=== PATIENT | female | born 1945 | race Caucasian/White ===

== ENCOUNTER 2018-01-20 06:13 | Inpatient (IN) | payer OTHER, MEDICARE ==
[2018-01-20 07:05] LABS: Protime INR 1.07
[2018-01-20 07:06] LABS: Absolute Lymphocytes (CBC) 0.9 K/uL (0.7-4.9); Absolute Monocytes 0.7 K/uL (0.1-1.3); Absolute Neutrophil 8.9 K/uL (1.8-8.0); Basophils % 0.8 % (0-1.3); Eosinophils % 2.1 % (0-4.4); Hematocrit 36.5 % (36.0-45.0); Lymphocytes % 8.3 % (15.3-44.8); MCV 78.6 fL (80-100); MPV 8.3 fL (7.6-11.3); Monocytes % 6.7 % (3.3-12.3); RBC Red Blood Cell Count 4.64 M/uL (3.86-4.86)
[2018-01-20 07:49] LABS: Bicarbonate 27 mEq/L (21-31); Glucose Level 189 mg/dL (65-120); Potassium 3.9 mEq/L (3.6-5.0); Sodium Level 139 mEq/L (135-145)
[2018-01-20 07:55] LABS: ALT/SGPT 19 IU/L (10-60); AST/SGOT 26 IU/L (10-42); Albumin 3.4 g/dL (3.2-5.5); Alkaline Phosphatase 76 IU/L (42-121); BUN Blood Urea Nitrogen 15 mg/dL (6-20); Bilirubin Direct < 0.1 mg/dL (0-0.2); Bilirubin Total 0.7 mg/dL (0.3-1.2); Magnesium 1.6 mg/dL (1.8-2.5); Protein, Total 6.2 g/dL (6.0-8.3)
--- NOTE | 2018-01-20 08:09 | EDPHYS ---
Physician Documentation [facility] Name: Jelly Garcia Age: 72 yrs Sex: Female : 1945 Arrival Date: 01/20/2018 Time: 06:20 Bed 15 Private MD: ED Physician Alexandr Bhandari HPI: 01/20 07:51 This 72 yrs old Female presents to ER via EMS with complaints of Breathing jr8 Difficulty, Chest Pain. 07:51 The patient has shortness of breath at rest. Onset: The symptoms/episode began/occurred jr8 gradually, 3 week(s) ago, and became worse and became persistent. Duration: The symptoms are continuous. The patient's shortness of breath is aggravated by exertion, walking. Associated signs and symptoms: Pertinent positives: chest pain, palpitations. Severity of symptoms: At their worst the symptoms were moderate in the emergency department the symptoms are unchanged. The patient has not experienced similar symptoms in the past. The patient has not recently seen a physician. Patient stated that she has noticed increase in fatigue and shortness of breath with exertion over the past few weeks. Stated that this morning felt a lot worse. Had palpitation with near syncope like feeling . Historical: - Allergies: 06:29 No Known Allergies; lp1 - Home Meds: 06:29 duloxetine 60 mg oral cpDR twice a day [Active]; omeprazole 20 mg Oral cpDR 1 cap once lp1 daily [Active]; losartan-hydrochlorothiazide 50-12.5 mg oral tab 1 tab once daily [Active]; furosemide 40 mg Oral tab 1 tab once daily [Active]; - PMHx: 06:29 Hypertension; lp1 - PSHx: 06:29 Cholecystectomy; Hernia repair; Knee surgery; lp1 - Immunization history:: Adult Immunizations up to date, Adult Immunizations up to date. - Social history:: Smoking status: Patient/guardian denies using tobacco, never smoked. ROS: 07:51 Eyes: Negative for injury, pain, redness, and discharge, ENT: Negative for injury, jr8 pain, and discharge, Neck: Negative for injury, pain, and swelling, Abdomen/GI: Negative for abdominal pain, nausea, vomiting, diarrhea, and constipation, Back: Negative for injury and pain, MS/Extremity: Negative for injury and deformity, Skin: Negative for injury, rash, and discoloration, Neuro: Negative for headache, weakness, numbness, tingling, and seizure. 07:51 Constitutional: Positive for fatigue. 07:51 Cardiovascular: Positive for chest pain, palpitations, Negative for edema, orthopnea, paroxysmal nocturnal dyspnea. 07:51 Respiratory: Positive for dyspnea on exertion, Negative for cough, hemoptysis, orthopnea, pleurisy, sputum production. Exam: 07:51 Eyes: Pupils equal round and reactive to light, extra-ocular motions intact. Lids and jr8 lashes normal. Conjunctiva and sclera are non-icteric and not injected. Cornea within normal limits. Periorbital areas with no swelling, redness, or edema. ENT: Nares patent. No nasal discharge, no septal abnormalities noted. Tympanic membranes are normal and external auditory canals are clear. Oropharynx with no redness, swelling, or masses, exudates, or evidence of obstruction, uvula midline. Mucous membranes moist. Neck: Trachea midline, no thyromegaly or masses palpated, and no cervical lymphadenopathy. Supple, full range of motion without nuchal rigidity, or vertebral point tenderness. No Meningismus. Respiratory: Lungs have equal breath sounds bilaterally, clear to auscultation and percussion. No rales, rhonchi or wheezes noted. No increased work of breathing, no retractions or nasal flaring. Abdomen/GI: Soft, non-tender, with normal bowel sounds. No distension or tympany. No guarding or rebound. No evidence of tenderness throughout. Back: No spinal tenderness. No costovertebral tenderness. Full range of motion. Skin: Warm, dry with normal turgor. Normal color with no rashes, no lesions, and no evidence of cellulitis. MS/ Extremity: Pulses equal, no cyanosis. Neurovascular intact. Full, normal range of motion. Neuro: Awake and alert, GCS 15, oriented to person, place, time, and situation. Cranial nerves II-XII grossly intact. Motor strength 5/5 in all extremities. Sensory grossly intact. Cerebellar exam normal. Normal gait. 07:51 Cardiovascular: Rate: normal, Rhythm: irregular, Pulses: Pulses are 2+ in right radial artery and left radial artery. Heart sounds: normal, normal S1and S2, no S3 or S4, no murmur, no rub, no gallop, Edema: 2+ edema to level of left midcalf, left ankle, left foot, right midcalf, right ankle and right foot, JVD: is not appreciated. Vital Signs: 06:25 BP 161 / 94; Pulse 81; Resp 22; Temp 98.6(O); Pulse Ox 92% on R/A; Weight 99.79 kg; lp1 Height 5 ft. 0 in. (152.40 cm); 06:26 Pulse Ox 96% on 2 lpm NC; lp1 07:49 BP 152 / 81; Pulse 76; Resp 26; Pulse Ox 99% on 2 lpm NC; Pain 0/10; hb 08:07 BP 138 / 99; Pulse 76; Resp 21; Pulse Ox 99% on 2 lpm NC; hb 09:00 BP 168 / 78; Pulse 74; Resp 22; Temp 98.6; Pulse Ox 99% on 2 lpm NC; Pain 0/10; hb 06:25 Body Mass Index 42.97 (99.79 kg, 152.40 cm) lp1 MDM: 06:28 Patient medically screened. jr8 08:07 Differential diagnosis: asthma, Bronchitis CHF exacerbation, Chronic Obstructive jr8 Pulmonary Disease Myocardial Infarction pneumonia, pulmonary edema, Pulmonary Embolism Sepsis. Data reviewed: vital signs, nurses notes, lab test result(s), EKG, radiologic studies, plain films, and as a result, I will admit patient. Data interpreted: Pulse oximetry: on room air is 92 %. Interpretation: borderline. Counseling: I had a detailed discussion with the patient and/or guardian regarding: the historical points, exam findings, and any diagnostic results supporting the discharge/admit diagnosis, lab results, radiology results, the need for further work-up and treatment in the hospital. 08:21 Physician consultation: Justin Shah MD was called at 08:21, was contacted at 08:21, jr8 regarding admission, to the telemetry unit. consult, patient's condition, and will see patient. 01/20 06:28 Order name: Basic Metabolic Panel; Complete Time: 08:06 8 01/20 06:28 Order name: BNP; Complete Time: 07:54 jr8 01/20 06:28 Order name: CBC with Diff; Complete Time: 07:13 jr8 01/20 06:28 Order name: LFT's; Complete Time: 08:06 jr8 01/20 06:28 Order name: Magnesium; Complete Time: 08:06 8 01/20 06:28 Order name: PT-INR; Complete Time: 07:13 8 01/20 06:28 Order name: Troponin (emerg Dept Use Only); Complete Time: 07:19 jr8 01/20 07:41 Order name: Urine Dipstick--Ancillary (enter results); Complete Time: 09:16 bd 01/20 08:26 Order name: Basic Metabolic Panel EDMS 01/20 08:26 Order name: Basic Metabolic Panel EDMS 01/20 08:26 Order name: BNP B-Type Natriuretic Peptide EDMS 01/20 08:26 Order name: BNP B-Type Natriuretic Peptide EDMS 01/20 08:26 Order name: CBC with Automated Diff EDMS 01/20 08:26 Order name: CBC with Automated Diff EDMS 01/20 06:28 Order name: XRAY Chest (1 view); Complete Time: 08:31 8 01/20 06:28 Order name: EKG; Complete Time: 06:29 01/20 06:28 Order name: Cardiac monitoring; Complete Time: 06:55 8 01/20 06:28 Order name: EKG - Nurse/Tech; Complete Time: 06:56 8 01/20 06:28 Order name: IV Saline Lock; Complete Time: 06:56 8 01/20 06:28 Order name: Labs collected and sent; Complete Time: 06:56 8 01/20 06:28 Order name: O2 Per Protocol; Complete Time: 06:56 8 01/20 06:28 Order name: O2 Sat Monitoring; Complete Time: 06:56 8 01/20 06:28 Order name: XRAY Shoulder RIGHT 2 view; Complete Time: 08:31 jr8 01/20 08:26 Order name: Echo with Doppler EDMS 01/20 08:26 Order name: 2 GM Sodium EDMS 01/20 08:26 Order name: Troponin I EDMS 01/20 08:26 Order name: Troponin I EDMS 01/20 08:26 Order name: Troponin I EDMS 01/20 06:28 Order name: Urine Dipstick-Ancillary (obtain specimen); Complete Time: 08:09 jr Administered Medications: 08:45 Drug: Lasix 40 mg Route: IVP; Site: right antecubital; hb 08:45 Drug: Magnesium Sulfate 1 grams Route: IVPB; Infused Over: 1 hrs; Site: right hb antecubital; Disposition: 01/20/18 08:08 Hospitalization ordered by Justin Shah for Inpatient Admission. Preliminary diagnosis is Acute combined systolic (congestive) and diastolic (congestive) heart failure. - Bed requested for Telemetry/MedSurg (Inpatient). - Status is Inpatient Admission. em - Condition is Stable. - Problem is new. - Symptoms are unchanged. UTI on Admission? No Addendum: 01/24/2018 21:29 Co-signature as Attending Physician, Alexandr Bhandari MD. g s Signatures: Dispatcher [employer] EDMS Rhianna Vickers Edgar, GRAIN MERCHANDISER GRAIN MERCHANDISER Meera Fried, RN RN lp1 Curtis Rossi PA PA jr8 Tracy Mathur, RN RN Elzbieta Oleary, RN Gloria Soto RN Alexandr Sandy ea, MD MD
--- NOTE | 2018-01-20 08:09 | ER ---
Nurse's Notes [facility] Name: Jelly Garcia Age: 72 yrs Sex: Female : 1945 Arrival Date: 01/20/2018 Time: 06:20 Bed 15 Private MD: Diagnosis: Acute combined systolic (congestive) and diastolic (congestive) heart failure Presentation: 01/20 06:21 Presenting complaint: EMS states: Productive cough, shortness of breath worsening over lp1 past 3 days; Per EMS, patient 91% O2 at RA, O2 3L NC, 98% O2; Patient states not taking her "fluid pill" for past 3 days, stating she forgot. Transition of care: patient was not received from another setting of care. Onset of symptoms was January 20, 2018. Initial Sepsis Screen: Does the patient meet any 2 criteria? No. Patient's initial sepsis screen is negative. Does the patient have a suspected source of infection? No. Patient's initial sepsis screen is negative. Care prior to arrival: IV initiated. 20 GA, in the right forearm, Glucose check: 248. 06:21 Method Of Arrival: EMS: [facility] lp1 06:21 Acuity: BRIAN 3 lp1 Historical: - Allergies: 06:29 No Known Allergies; lp1 - Home Meds: 06:29 duloxetine 60 mg oral cpDR twice a day [Active]; omeprazole 20 mg Oral cpDR 1 cap once lp1 daily [Active]; losartan-hydrochlorothiazide 50-12.5 mg oral tab 1 tab once daily [Active]; furosemide 40 mg Oral tab 1 tab once daily [Active]; - PMHx: 06:29 Hypertension; lp1 - PSHx: 06:29 Cholecystectomy; Hernia repair; Knee surgery; lp1 - Immunization history:: Adult Immunizations up to date, Adult Immunizations up to date. - Social history:: Smoking status: Patient/guardian denies using tobacco, never smoked. Screenin:25 Abuse screen: Denies threats or abuse. Nutritional screening: No deficits noted. ea Tuberculosis screening: No symptoms or risk factors identified. Fall Risk IV access (20 points). Assessment: 06:20 General: Appears uncomfortable, Behavior is calm, cooperative, appropriate for age. ea Pain: Denies pain. Neuro: Level of Consciousness is awake, alert, obeys commands, Oriented to person, place, time, situation. Cardiovascular: Heart tones present Patient's skin is warm and dry. Cardiovascular: Cardiovascular: vasquez lower 3+ pitting edema. Respiratory: Airway is patent Respiratory effort is even, labored, Respiratory pattern is regular, symmetrical, Breath sounds are clear bilaterally. Respiratory: Denies cough. GI: Abdomen is non-distended, Bowel sounds present X 4 quads. Abd is soft and non tender X 4 quads. : No signs and/or symptoms were reported regarding the genitourinary system. EENT: No signs and/or symptoms were reported regarding the EENT system. Derm: Skin is pink, warm \\T\\ dry. Derm: 07:10 Reassessment: Patient appears in no apparent distress at this time. Patient and/or family updated on plan of care and expected duration. Pain level reassessed. Breathing is mildly labored. Denies pain. VSS. Family at bedside. 07:35 Reassessment: Pt to bathroom with assistance, urine specimen provided. Assisted back to bed, bed locked in low position, call light within reach. Breathing remains mildly labored, pt tolerated fair. Family at bedside. 07:55 Reassessment: trop 0.04, BNP >1300, NATHALY Acevedo aware. hb 08:02 Reassessment: NATHALY Acevedo at bedside Patient denies pain at this time. hb 09:00 Reassessment: Patient appears in no apparent distress at this time. No changes from previously documented assessment. Patient and/or family updated on plan of care and expected duration. Pain level reassessed. Admission ordered, awaiting callback from receiving nurse for report. Vital Signs: 06:25 BP 161 / 94; Pulse 81; Resp 22; Temp 98.6(O); Pulse Ox 92% on R/A; Weight 99.79 kg; lp1 Height 5 ft. 0 in. (152.40 cm); 06:26 Pulse Ox 96% on 2 lpm NC; lp1 07:49 BP 152 / 81; Pulse 76; Resp 26; Pulse Ox 99% on 2 lpm NC; Pain 0/10; hb 08:07 BP 138 / 99; Pulse 76; Resp 21; Pulse Ox 99% on 2 lpm NC; hb 09:00 BP 168 / 78; Pulse 74; Resp 22; Temp 98.6; Pulse Ox 99% on 2 lpm NC; Pain 0/10; hb 06:25 Body Mass Index 42.97 (99.79 kg, 152.40 cm) lp1 ED Course: 06:20 Patient arrived in ED. ds1 06:20 Gloria Farrell, RN is Primary Nurse. ea 06:20 Patient has correct armband on for positive identification. Bed in low position. Call ea light in reach. Side rails up X2. 06:25 Triage completed. lp1 06:25 Arm band placed on left wrist. lp1 06:27 Curtis Rossi PA is PHCP. jr8 06:27 Alexandr Bhandari MD is Attending Physician. jr8 06:56 Maintain EMS IV. Gauge \\T\\ site: 20 G to right forearm. ea 07:05 Report given to Tracy CERRATO. ea 08:07 Justin Shah MD is Hospitalizing Provider. jr8 08:21 XRAY Chest (1 view) In Process Unspecified. EDMS 08:22 XRAY Shoulder RIGHT 2 view In Process Unspecified. EDMS Administered Medications: 08:45 Drug: Lasix 40 mg Route: IVP; Site: right antecubital; hb 08:45 Drug: Magnesium Sulfate 1 grams Route: IVPB; Infused Over: 1 hrs; Site: right hb antecubital; Outcome: 08:08 Decision to Hospitalize by Provider. jr8 09:25 Admitted to Tele accompanied by tech, family with patient, via wheelchair, room 409, hb with oxygen, with chart, Report called to SAQIB Sierra 09:25 Condition: stable 09:25 Instructed on the need for admit, Demonstrated understanding of instructions. 09:48 Patient left the ED. em Signatures: Dispatcher [employer] EDMS Braydon Bowman, ACID PLANT HELPER ACID PLANT HELPER em Olga Washington ds1 Meera Maria RN RN lp1 Curtis Rossi PA PA jr8 Tracy Mathur RN RN Gloria Farrell, SAQIB CERRAOT ea Corrections: (The following items were deleted from the chart) 09:25 07:49 BP 152 / 81; Pulse 76bpm; Resp 26bpm; Pulse Ox 99% RA; Pain 0/10; hb hb 09:25 08:07 BP 138 / 99; Pulse 76bpm; Resp 21bpm; Pulse Ox 99% RA; hb hb
[2018-01-20] MEDS ORDERED: ACETAMINOPHEN 500 MG TAB PO PRN (08:24)
[2018-01-20] MEDS ORDERED: IPRATROPIUM BROM 0.5MG/2.5ML NEB PRN (08:24)
[2018-01-20] MEDS ORDERED: ALBUTEROL 2.5 MG/3 ML NEB SOL NEB PRN (08:24)
[2018-01-20] MEDS ORDERED: ONDANSETRON 4 MG/2 ML VIAL IV PRN (08:24)
--- NOTE | 2018-01-20 08:27 | RAD REPORT ---
EXAM DESCRIPTION: RAD - Shoulder Right 2 View - 01/20/2018 8:22 am CLINICAL HISTORY: Right shoulder pain COMPARISON: None. FINDINGS: AC joint degenerative changes are noted, mild to moderate. No acute fracture or dislocatio n seen. No aggressive marrow lesion.
--- NOTE | 2018-01-20 08:28 | RAD REPORT ---
EXAM DESCRIPTION: RAD - Chest Single View - 01/20/2018 8:22 am CLINICAL HISTORY: Productive cough, shortness of breath. COMPARISON: 10/01/2013 FINDINGS: Portable technique limits examination quality. Mild interstitial pulmonary edema is seen. The heart is moderately enlarged. Trace pleural fluid. No displaced fractures. IMPRESSION: Mild CHF.
[2018-01-20 08:52] LABS: Urine Blood TRACE (NEG); Urine Glucose NEGATIVE (NEG); Urine Protein TRACE (NEG); Urine Specific Gravity 1.015 (1.005-1.030); Urine pH 6.5 (5.0-7.0)
[2018-01-20] MEDS ORDERED: FUROSEMIDE 40 MG/4 ML VIAL ONE (08:58)
[2018-01-20] MEDS ORDERED: MAGNESIUM SULFATE 1 gm IVPB 1 GM/100 ML BAG IV ONE (08:58)
--- NOTE | 2018-01-20 12:56 | EKG ---
Test Date: 2018-01-20 Test Time: 06:38:44 Spreading Machine Operator: BRAYAN MEASUREMENT RESULTS: Intervals: Rate: 75 MT: 94 QRSD: 84 QT: 570 QTc: 636 Dille: P: 49 MT: 94 QRS: 21 T: 44 INTERPRETIVE STATEMENTS: Sinus rhythm with short MT with frequent premature ventricular complexes Nonspecific ST and T wave abnormality Prolonged QT Abnormal ECG No previous ECG available for comparison Electronically Signed On 01-20-18 12:55:33 CDT by Gualberto Valenzuela
--- NOTE | 2018-01-20 15:34 | ECHO ---
HEIGHT: 5 ft 0 in WEIGHT: 230 lb 0 oz DATE OF STUDY: 01/20/[address]: Denis Rossi 2-DIMENSIONAL: YES M.MODE: YES DOPPLER: YES COLOR FLOW: YES TDS: YES PORTABLE: NO DEFINITY: NO BUBBLE STUDY: NO DIAGNOSIS: NEW ONSET HEART FAILURE CARDIAC HISTORY: CATHERIZATION: NO SURGERY: NO PROSTHETIC VALVE: NO PACEMAKER: NO MEASUREMENTS (cm) DIASTOLIC (NORMALS) SYSTOLIC (NORMALS) IVSd 1.0 (0.6-1.2) LA Diam 4.3 (1.9-4.0) LVEF 30-35% LVIDd 6.1 (3.5-5.7) LVIDs 5.4 (2.0-3.5) %FS 12% LVPWd 1.0 (0.6-1.2) Ao Diam 2.5 (2.0-3.7) 2 DIMENSIONAL ASSESSMENT: RIGHT ATRIUM: NORMAL LEFT ATRIUM: DILATED RIGHT VENTRICLE: NORMAL LEFT VENTRICLE: DILATED TRICUSPID VALVE: NORMAL MITRAL VALVE: NORMAL PULMONIC VALVE: NORMAL AORTIC VALVE: MILD SCLEROSIS PERICARDIAL EFFUSION: NONE AORTIC ROOT: NORMAL LEFT VENTRICULAR WALL MOTION: GLOBAL HYPOKINESIS. DOPPLER/COLOR FLOW: MILD MITRAL REGURGITATION. COMMENTS: DEPRESSED LEFT VENTRICULAR EJECTION FRACTION. DILATED LEFT ATRIUM AND LEFT VENTRICLE. MILD AORTIC SCLEROSIS WITH NO AORTIC STENOSIS OR AORTIC REGURGITATION. MILD MITRAL REGURGITATION. TECHNOLOGIST: Albert PELAYO
[2018-01-20] MEDS ORDERED: FUROSEMIDE 20 MG/ 2ML VIAL IV SCH (17:00)
--- NOTE | 2018-01-20 17:15 | P.HP ---
Certification for Inpatient Patient admitted to: Observation With expected LOS: <2 Midnights Practitioner: I am a practitioner with admitting privileges, knowledge of patient current condition, hospital course, and medical plan of care. 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 SHE HAS BEEN EATING SOME SALT IN EXCESS ON ROUTINE BASIS. SHE IS NOT GRANT TO LOSE WEIGHT. 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 rebuilt surg -: fibroids - Family History Sister -: Heart disease, Hypertension Notes: additional sister with arthritis Father -: Cancer Notes: lung Mother -: Cancer Notes: colon - Social History Smoking Status: Never smoker Alcohol use: Yes CD- Drugs: No Caffeine use: Yes Place of Residence: Home Review of Systems 10-point ROS is otherwise unremarkable General: Weakness Respiratory: Shortness of Breath Physical Examination - Vital Signs Temperature: 98.2 F Blood Pressure: 148/65 Pulse: 68 Respirations: 16 Pulse Ox (%): 96 - Physical Exam General: Alert, Acute distress, Mild distress, Obese HEENT: Atraumatic, PERRLA, Mucous membr. moist/pink, EOMI, Sclerae nonicteric Neck: Supple, 2+ carotid pulse no bruit, No LAD, Without JVD or thyroid abnormality Respiratory: Clear to auscultation bilaterally, Normal air movement Cardiovascular: Regular rate/rhythm, Normal S1 S2 Gastrointestinal: Normal bowel sounds, No tenderness Musculoskeletal: No tenderness Integumentary: No rashes Neurological: Normal gait, Normal speech, Normal strength at 5/5 x4 extr, Normal tone, Normal affect Lymphatics: No axilla or inguinal lymphadenopathy - Studies Laboratory Data (last 24 hrs) 01/20/18 06:48: PT 12.6 H, INR 1.07 01/20/18 06:48: WBC 10.9, Hgb 11.6 L, Hct 36.5, Plt Count 303 01/20/18 06:48: B-Natriuretic Peptide 1322 H 01/20/18 06:48: Sodium 139, Potassium 3.9, BUN 15, Creatinine 0.73, Glucose 189 H, Magnesium 1.6 L, Total Bilirubin 0.7, AST 26, ALT 19, Alkaline Phosphatase 76 Assessment and Plan - Problems (Diagnosis) (1) CHF (congestive heart failure), NYHA class III Current Visit: Yes Status: Acute Plan: DIET IMPROVEMENT WILL HELP REDUCE THE SYMPTOMS AND IMPROVE THE STAGE. OBESITY, HTN AND HYPERTROPHY OF HEART ARE THE REASONS FOR CHF. Orders (last 24 hrs) 01/20/18 10:33 Sequential Compression Device NOW 01/20/18 10:42 SBAR Routine 01/21/18 09:00 Ceftriaxone 1 gm/Ns 50 ml [Rocephin 1Gm/50 ml Ivpb] 50 ml IV DAILY Duloxetine [Cymbalta Delayed Release Pellets] 40 mg PO DAILY Losartan Potassium [Losartan Potassium] 100 mg PO DAILY Omeprazole [Omeprazole] 20 mg PO DAILY (2) Bronchitis Current Visit: Yes Status: Acute Plan: ROCEPHIN IV. - Advance Directives Does patient have a Living Will: No Does patient have a Durable POA for Healthcare: No
[2018-01-20] MEDS: CEFTRIAXONE/SWI 1gm 1 GM/10 ML SYR IV SCH (17:43)
--- NOTE | 2018-01-20 19:30 | CON ---
Chief Complaint: Dyspnea. History Of Present Illness: The patient has been eating saltier foods than usual. She ate chicken g izzards from a fried chicken fast food place yesterday and started feeling short of breath. She had been feeling short of breath before that. She does not try very hard to follow on low-sodium diet. She has normal coronary arteries according to a cardiac cath about 3 years ago. Never needed a stent or any kind of revascularization procedure. She has underlying hypertension and as an outpatient delmer gallegos takes losartan, omeprazole, duloxetine, and furosemide. Physical Examination: General: 5 feet tall, 230 pounds, body mass index 45. HEENT: Normal. Lungs: Clear. Heart: Regular rate and rhythm. No significant murmur. Lungs: Reveal sparse basilar crackles. Abdomen: Soft. Extremities: 1 to 2+ edema. Distal pulses palpable. Social History: The patient uses no tobacco. Impression: The patient has developed pulmonary edema from a high sodium diet and she probably has h eart failure with normal ejection fraction. She will have an echocardiogram if possible, she has helio naik had it, but we will make sure she gets an echocardiogram today. Give her diuresis. Instruct he r on a low-sodium diet and see if we can improve her situation. I do not think this is an acute coronary syndrome, but volume overload pulmonary edema from high-sodium intake and diastolic dysfunct ion of the heart. DELMER/AQUILINO Voice ID: [id number] Report ID: [id number]
[2018-01-21] MEDS: PANTOPRAZOLE 40MG TABLET PO SCH (06:29)
[2018-01-21 06:31] LABS: Absolute Lymphocytes (CBC) 1.6 K/uL (0.7-4.9); Absolute Monocytes 0.9 K/uL (0.1-1.3); Absolute Neutrophil 6.3 K/uL (1.8-8.0); Basophils % 0.9 % (0-1.3); Eosinophils % 4.5 % (0-4.4); Hematocrit 36.6 % (36.0-45.0); Lymphocytes % 17.2 % (15.3-44.8); MCH 24.7 pg (27.0-35.0); MPV 8.5 fL (7.6-11.3); Monocytes % 9.2 % (3.3-12.3); RBC Red Blood Cell Count 4.64 M/uL (3.86-4.86)
[2018-01-21 06:52] LABS: Potassium 3.8 mEq/L (3.6-5.0)
[2018-01-21] MEDS ORDERED: LOSARTAN POTASSIUM 50 MG TABLET PO SCH (09:00)
[2018-01-21] MEDS ORDERED: CEFTRIAXONE 1 GM/NS 50 ML 50 ML IV SCH (09:00)
[2018-01-21] MEDS: DULOXETINE 20 MG CAP PO SCH (10:35)
[2018-01-21] MEDS: FUROSEMIDE 40 MG TABLET PO SCH (10:36)
[2018-01-21] MEDS: SACUBITRIL/VALSARTAN 49/51 MG TAB PO SCH ×2 (11:02→21:13)
--- NOTE | 2018-01-21 11:52 | P.PN ---
Subjective Date of Service: 01/21/18 Chief Complaint: DYSPNEA, COUGH Subjective: Improving (LAYING DOWN AND READING. HAS BACK PAIN, LOWER.) Review of Systems 10-point ROS is otherwise unremarkable General: Weakness, Malaise Physical Examination - Vital Signs Temperature: 96.8 F Blood Pressure: 162/74 Pulse: 67 Respirations: 14 Pulse Ox (%): 90 - Physical Exam General: Alert, In no apparent distress, Obese HEENT: Atraumatic, PERRLA, EOMI Neck: Supple, JVD not distended Respiratory: Clear to auscultation bilaterally, Normal air movement Cardiovascular: Regular rate/rhythm, Normal S1 S2 Gastrointestinal: Normal bowel sounds, No tenderness Musculoskeletal: No tenderness Integumentary: No rashes Neurological: Normal speech, Normal tone, Normal affect Lymphatics: No axilla or inguinal lymphadenopathy - Studies Medications List Reviewed: Yes Assessment And Plan - Current Problems (Diagnosis) (1) CHF (congestive heart failure), NYHA class III Current Visit: Yes Status: Acute Plan: DIET IMPROVEMENT WILL HELP REDUCE THE SYMPTOMS AND IMPROVE THE STAGE. OBESITY, HTN AND HYPERTROPHY OF HEART ARE THE REASONS FOR CHF. Orders (last 24 hrs) 01/20/18 10:33 Sequential Compression Device NOW 01/20/18 10:42 SBAR Routine 01/21/18 09:00 Ceftriaxone 1 gm/Ns 50 ml [Rocephin 1Gm/50 ml Ivpb] 50 ml IV DAILY Duloxetine [Cymbalta Delayed Release Pellets] 40 mg PO DAILY Losartan Potassium [Losartan Potassium] 100 mg PO DAILY Omeprazole [Omeprazole] 20 mg PO DAILY EF IS DOWN TO 35% NOW ON ENTRESTO BY DR ROA NOT SURE IF SHE CAN AFFORD IT. (2) Bronchitis Current Visit: Yes Status: Acute Plan: ROCEPHIN IV. (3) Back pain Current Visit: Yes Status: Acute Plan: START ULTRAM BID PRN STOP ALEVE. SHE HAS BEEN TOLD TO STOP ALEVE A WHILE AGO EXPLAINED THE SE. Qualifiers: Back pain location: low back pain
--- NOTE | 2018-01-21 13:16 | PN ---
Ms. Edson Garcia has had marked diuresis, feels much better. We did an echocardiogram which shows a new finding. Her ejection fraction is in the 30s. Her heart is dilated. I believe we are dealing with a cardiomyopathy. We know her coronary arteries look normal on a cardiac cath. I will recomme nd that we give her a low dose of a beta-rocio and start Entresto and change her diuretic to oral. She can make those changes easily. We will be able to send her home tomorrow. DELMER/AQUILINO Voice ID: [id number] Report ID: [id number]
--- NOTE | 2018-01-21 15:56 | RAD REPORT ---
EXAM DESCRIPTION: RAD - Lumbar Spine 3 Views - 01/21/2018 3:31 pm CLINICAL HISTORY: Back pain FINDINGS: Ehsan sacralization of L5 is present. Mild anterior subluxation of L4 on L5 is unchanged from 2012. The bones are osteoporotic. No fracture is seen. Mild spondylosis involves the lumbar spine. Moderate spondylosis involves the lower thoracic spine co nsisting disc space narrowing and osteophytes.
[2018-01-21] MEDS: CEFTRIAXONE/SWI 1gm 1 GM/10 ML SYR IV SCH (17:48)
[2018-01-21] MEDS: TRAMADOL HCL 50 MG TAB PO PRN (17:49)
[2018-01-21] MEDS ORDERED: PNEUMOCOCCAL VACCINE 0.5 ML IMVAC ONE (21:00)
[2018-01-22] MEDS: TRAMADOL HCL 50 MG TAB PO PRN ×2 (03:51→12:24)
[2018-01-22 04:26] VITALS: BMI 42.9
[2018-01-22] MEDS: PANTOPRAZOLE 40MG TABLET PO SCH (05:34)
[2018-01-22] MEDS: SACUBITRIL/VALSARTAN 49/51 MG TAB PO SCH (08:25)
[2018-01-22] MEDS: FUROSEMIDE 40 MG TABLET PO SCH (08:26)
[2018-01-22] MEDS: DULOXETINE 20 MG CAP PO SCH (08:27)
--- NOTE | 2018-01-22 11:29 | P.DS ---
Admission Date: 01/20/18 Discharge Date: 01/22/18 Disposition: ROUTINE DISCHARGE Discharge Condition: FAIR Reason for Admission: DYSPNEA, COUGH - Problems (1) CHF (congestive heart failure), NYHA class III Current Visit: Yes Status: Acute (2) Bronchitis Current Visit: Yes Status: Acute (3) Back pain Current Visit: Yes Status: Acute Qualifiers: Back pain location: low back pain Brief History of Present Illness: MRS CEJA HAS DYSPNEA COUGH FOR LAST 3-4 DAYS, WITH PND AND CAN'T SLEEP AT NIGHT. SHE HAS BEEN EATING SOME SALT IN EXCESS ON ROUTINE BASIS. SHE IS NOT GRANT TO LOSE WEIGHT. MR CEJA HAS CONGESTIVE CARDIOMYOAPATHY. SHE IS BETTER BUT NEEDS TO EAT BETTER AND LOSE WEIGHT. SHE WILL AVOID ALL BAD CHOICES. I HAVE TALKED TO HER A FEW TIMES BUT ON DAY OF ADMISSION SHE HAD SOME FRIED CHICKEN AT LUNCH. SHE HAS NEW MEDICINE ENTRESTO FOR NOW. WE STOPPED LOSARTAN AND SHE WILL CONTINEU LASIX. Vital Signs/Physical Exam: Temp Pulse Resp BP Pulse Ox 97.0 F 63 18 106/88 94 01/22/18 07:53 01/22/18 08:26 01/22/18 07:53 01/22/18 08:26 01/22/18 07:53 Laboratory Data at Discharge: WBC 9.2 K/uL (4.3-10.9) D 01/21/18 05:19 Hgb 11.5 g/dL (12.0-15.0) L 01/21/18 05:19 Hct 36.6 % (36.0-45.0) 01/21/18 05:19 Plt Count 327 K/uL (152-406) 01/21/18 05:19 PT 12.6 SECONDS (9.5-12.5) H 01/20/18 06:48 INR 1.07 01/20/18 06:48 Sodium 137 mEq/L (135-145) 01/21/18 05:19 Potassium 3.8 mEq/L (3.6-5.0) 01/21/18 05:19 BUN 14 mg/dL (6-20) 01/21/18 05:19 Creatinine 0.79 mg/dL (0.44-1.00) 01/21/18 05:19 Glucose 141 mg/dL (65-120) H 01/21/18 05:19 Magnesium 1.6 mg/dL (1.8-2.5) L 01/20/18 06:48 Total Bilirubin 0.7 mg/dL (0.3-1.2) 01/20/18 06:48 AST 26 IU/L (10-42) 01/20/18 06:48 ALT 19 IU/L (10-60) 01/20/18 06:48 Alkaline Phosphatase 76 IU/L (42-121) 01/20/18 06:48 Troponin I 0.03 ng/mL (<0.03) 01/20/18 15:24 B-Natriuretic Peptide 1005 pg/ml (<=100) H 01/21/18 05:19 Home Medications: Duloxetine [Cymbalta Dalayed Release Pellets] 40 mg PO DAILY 01/20/18 Furosemide 40 mg PO DAILY 01/20/18 Omeprazole [Omeprazole] 20 mg PO DAILY 01/20/18 Tramadol HCl [Ultram] 50 mg PO BID #60 tablet 01/22/18 New Medications: Tramadol HCl [Ultram] 50 mg PO BID #60 tablet Patient Discharge Instructions: TAKE SAMPLES OF ENTRESTO GIVEN BY DR PORRAS. WATCH DIET. AVOID ALL FRIED FOOD, DAIRY PRODUCTS, SALT. EAT PALEO DIET. LOSE WEIGHT. YOUR BACK AND SHOULDER SHOW ARTHRITIS. I WILL SEE YOU IN ABOUT 10 DAYS AT OFFICE. Diet: AHA Activity: Ad barbara
[2018-01-22 12:30] VITALS: BP 112/54; TEMP 97.6
[2018-01-22 14:03] VITALS: O2SAT 95
--- NOTE | 2018-01-22 14:43 | PN ---
Ms. Edson Garcia seems to be doing well. Blood pressure and heart rate are excellent. Telemetry i s good. She has diuresed a lot. I think she could just be discharged taking Coreg, Entresto and Las ix and have follow up with me in the office within a few weeks. Her diagnosis is congestive heart fa ilure due to new onset cardiomyopathy. DELMER/AQUILINO Voice ID: [id number] Report ID: [id number]
== END 2018-01-22 14:37 | disposition home or self-care (01) | DRG 292 ==
LOC: ER 06:13 → ERHOLD 08:23 → 4TH 09:21
PROVIDERS: ADMIT Internal Medicine; ATTEND Internal Medicine
DX: I11.0 Hypertensive heart disease with heart failure (principal); Z68.41 Body mass index [BMI] 40.0-44.9, adult; I50.31 Acute diastolic (congestive) heart failure; J20.9 Acute bronchitis, unspecified; M54.5 Low back pain; I42.0 Dilated cardiomyopathy; E66.9 Obesity, unspecified
CPT/HCPCS: 36415; 71045; 72100; 80048; 80076; 81003; 83735; 83880; 84484; 85025; 85610; 93005; 93306; 96374; 96375; 99285; J0696; J1940; J3475

== ENCOUNTER 2018-09-14 11:10 | Day surgery (SDC) | payer OTHER, MEDICARE ==
[2018-09-14 11:49] LABS: Absolute Lymphocytes (CBC) 1.4 K/uL (0.7-4.9); Absolute Monocytes 0.7 K/uL (0.1-1.3); Absolute Neutrophil 9.5 K/uL (1.8-8.0); Basophils % 0.3 % (0-1.3); Eosinophils % 0.2 % (0-4.4); Hematocrit 39.3 % (36.0-45.0); Lymphocytes % 12.3 % (15.3-44.8); MPV 8.1 fL (7.6-11.3); Monocytes % 6.3 % (3.3-12.3); RBC Red Blood Cell Count 4.66 M/uL (3.86-4.86)
--- NOTE | 2018-09-14 11:49 | RAD REPORT ---
EXAM DESCRIPTION: RAD - Chest Pa And Lat (2 Views) - 09/14/2018 11:41 am CLINICAL HISTORY: PRE SURGERY Chest pain. COMPARISON: Chest Single View dated 01/20/2018; CHEST PA AND LAT 2 VIEW dated 10/01/2013 FINDINGS: The lungs are clear. The heart is upper limit of normal in size. No displaced fractures. S urgical clips are present in the upper abdomen. IMPRESSION: No acute or concerning finding suspected.
[2018-09-14 11:56] LABS: Potassium 4.1 mmol/L (3.5-5.1)
[2018-09-14] MEDS ORDERED: Ringers Lactate 1,000 ML IV ONE (12:08)
[2018-09-14] MEDS ORDERED: CEFAZOLIN 1GM (PREMIX IV) 1 GM/50 ML BAG ONE (12:09)
--- NOTE | 2018-09-14 12:33 | EKG ---
Test Date: 2018-09-14 Test Time: 11:42:44 Legal Word Processor: YUAN MEASUREMENT RESULTS: Intervals: Rate: 70 WA: 100 QRSD: 82 QT: 392 QTc: 423 [place]: P: 27 WA: 100 QRS: 36 T: 74 INTERPRETIVE STATEMENTS: Sinus rhythm with short WA with premature atrial complexes with aberrant conduction Nonspecific T wave abnormality Abnormal ECG Compared to ECG 01/20/2018 06:38:44 Atrial premature complex(es) now present Aberrant conduction of supraventricular beat(s) now present T-wave abnormality now present Ventricular premature complex(es) no longer present ST (T wave) deviation no longer present Prolonged QT interval no longer present Electronically Signed On 09-14-18 12:32:34 WEBSPHERE ADMINISTRATOR by Gualberto Valenzuela
[2018-09-14] MEDS ORDERED: LIDOCAINE 1% MPF 30 ML VIAL ONE (14:40)
[2018-09-14] MEDS ORDERED: MIDAZOLAM HCL 2 MG/2 ML INJ ONE (14:42)
[2018-09-14] MEDS ORDERED: LIDOCAINE 1% MPF 5 ML VIAL ONE (14:59)
[2018-09-14] MEDS ORDERED: PROPOFOL 200 MG/20 ML VIAL IV ONE (14:59)
[2018-09-14] MEDS ORDERED: FENTANYL CITR 100 MCG/2 ML ONE (14:59)
[2018-09-14] MEDS ORDERED: HYDROCODONE/APAP 7.5/325 MG TAB ONE (16:05)
[2018-09-14 17:04] VITALS: BP 141/63; TEMP 96.7; O2SAT 99
--- NOTE | 2018-09-15 03:30 | OP ---
Date of Procedure: 09/14/2018 Surgeon: Giovanni Rocha MD Preoperative Diagnoses: Right-sided headache, elevated C-reactive protein, rule out temporal arterit is, and vision change. Postoperative Diagnoses: Right-sided headache, elevated C-reactive protein, rule out temporal arteri tis, and vision change. Procedure: Right temporal artery biopsy. Estimated Blood Loss: Minimal. Specimen: Right temporal artery. Findings: As above. Anesthesia: MAC. Complications: None. Disposition: Patient tolerated the procedure well in stable condition and taken to Recovery in good general condition. Operative Note: The patient was brought to the OR, placed in supine position, and MAC anesthesia was begun. The patient was prepped and draped in usual sterile fashion. Then, using a Doppler device, the branch of the right temporal artery was identified anterior and superior to the right ear. A 4 c m incision was made, subcutaneous tissues were divided. A 4 cm segment excised with proximal and dis rui division after dissection, and then there was a branch that was also part of the specimen, and al l 3 areas were tied out with 4-0 silk. Again, Doppler was used to confirm that it was indeed the art tevin and not the vein. Wound was irrigated, bleeding controlled with cautery, and then 3-0 chromic wa s used to approximate subcutaneous tissue and close the skin. Sterile dressing was applied. The pat ient was awakened and taken to Recovery in good general condition. Discharge Note: The patient will go to day surgery, then home when stable. Disposition: Home. Condition: Stable. Discharge Instructions: Resume home meds and diet. Activity as tolerated. No heavy lifting. Remov e outer dressing in 2 days. Shower. Keep wound clean and dry. Keep steri-strips on at all times. Tylenol No. 3 one tablet p.o. q.4 h. p.r.n. for pain. /MODL Voice ID: [id number] Report ID: [id number]
== END 2018-09-14 16:39 | disposition home or self-care (01) ==
LOC: OR 11:10
PROVIDERS: ATTEND Surgery
PROC: 03BS0ZX Excision of Right Temporal Artery, Open Approach, Diagnostic (ICD-10-PCS; principal; 2018-09-14 12:45)
DX: R51 Headache (principal); H53.9 Unspecified visual disturbance; R79.82 Elevated C-reactive protein (CRP); I11.0 Hypertensive heart disease with heart failure; I50.9 Heart failure, unspecified; E66.9 Obesity, unspecified; J45.909 Unspecified asthma, uncomplicated; M79.7 Fibromyalgia; K21.9 Gastro-esophageal reflux disease without esophagitis; F32.9 Major depressive disorder, single episode, unspecified
CPT/HCPCS: 36415; 37609; 71046; 80048; 85025; 88305; 93005; J0690; J2250; J2704; J3010

== ENCOUNTER 2019-07-17 00:49 | Emergency (ER) | payer OTHER, MEDICARE ==
[2019-07-17 01:44] LABS: Hematocrit 39.4 % (36.0-45.0); Lymphocytes % 11.3 % (15.3-44.8); MPV 7.8 fL (7.6-11.3); RBC Red Blood Cell Count 5.15 M/uL (3.86-4.86)
[2019-07-17 01:45] LABS: Absolute Lymphocytes (CBC) 1.8 K/uL (0.7-4.9); Basophils % 0.7 % (0-1.3); Protime INR 1.01
[2019-07-17 01:56] LABS: Potassium 3.9 mmol/L (3.5-5.1)
[2019-07-17 01:57] LABS: Albumin 3.5 g/dL (3.4-5.0); Bilirubin Direct 0.2 mg/dL (0-0.2); Bilirubin Total 0.4 mg/dL (0.2-1.0); Troponin (Emerg Dept Use Only) 0.06 ng/mL (0.0-0.045)
[2019-07-17] MEDS ORDERED: HYDROCODONE/APAP 5/325 MG TAB ONE ×2 (02:37→11:03)
[2019-07-17] MEDS ORDERED: ENOXAPARIN 100 MG/ML SYR SQ ONE (05:50)
--- NOTE | 2019-07-17 06:39 | RAD REPORT ---
EXAM DESCRIPTION: RAD - Chest Single View - 07/17/2019 2:03 am CLINICAL HISTORY: CHEST PAIN Chest pain. COMPARISON: Chest Pa And Lat (2 Views) dated 09/14/2018; Chest Single View dated 01/20/2018; CHEST PA AND LAT 2 VIEW dated 10/01/2013 FINDINGS: Portable technique limits examination quality. The lungs are grossly clear. The heart is upper limit normal with dual lead pacer/ defibrillator courtney ce. No displaced fractures. IMPRESSION: No acute intrathoracic process suspected.
--- NOTE | 2019-07-17 08:26 | EDPHYS ---
Physician Documentation [facility] Name: Jelly Garcia Age: 73 yrs Sex: Female : 1945 Arrival Date: 07/17/2019 Time: 00:50 Bed 4 Private MD: ED Physician Bipin Webber HPI: 07/17 01:40 This 73 yrs old Female presents to ER via EMS with unknown complaint. pkl 01:40 The patient or guardian reports chest pain that is located primarily in the substernal pkl area. Onset: just prior to arrival. Associated signs and symptoms: Pertinent positives: Patient said she think her Pacer/Defib went off. The chest pain is described as aching. Patient said her pacer/defib was placed [address] Hawkins at [facility].. Historical: - Allergies: 01:06 No Known Allergies; fc - Home Meds: 01:06 aspirin 81 mg Oral TbEC 1 tab once daily [Active]; Coreg 6.25 mg Oral tab 1 tab 2 times fc per day [Active]; Xigduo XR 5-1,000 mg oral TBph 1 tab once daily [Active]; duloxetine 60 mg Oral cpDR 1 cap twice a day [Active]; furosemide 40 mg Oral tab 1 tab 2 times per day [Active]; Madison 5-325 mg Oral tab 1 tab q4hrs prn [Active]; melatonin 3 mg Oral tab 2 tab nightly [Active]; Zaroxolyn 2.5 mg Oral tab 1 tab Mon-Wed-Fri [Active]; spironolactone 50 mg Oral tab 1 tab once daily [Active]; omeprazole 20 mg Oral cpDR 1 cap once daily [Active]; prednisone 20 mg Oral tab 1 tab once daily [Active]; Entresto 24-26 mg oral tab twice a day [Active]; - PMHx: 01:06 Hypertension; Fibromyalgia; Atrial Fib; temporal arteritis; Diabetes - NIDDM; fc - PSHx: 01:06 Pacer/Defib placed 07/03/2019; Cholecystectomy; Hernia repair; Hysterectomy; fc - Immunization history:: Last tetanus immunization: up to date Flu vaccine is not up to date. - Social history:: Smoking status: Patient/guardian denies using tobacco, Patient/guardian denies using alcohol, street drugs. - Ebola Screening: : Patient negative for fever greater than or equal to 101.5 degrees Fahrenheit, and additional compatible Ebola Virus Disease symptoms Patient denies exposure to infectious person Patient denies travel to an Ebola-affected area in the 21 days before illness onset. ROS: 01:40 Eyes: Negative for injury, pain, redness, and discharge, ENT: Negative for injury, pkl pain, and discharge, Neck: Negative for injury, pain, and swelling. 01:40 Cardiovascular: Positive for chest pain. 01:40 Respiratory: Negative for cough, shortness of breath. 01:40 Abdomen/GI: Negative for abdominal pain, nausea, vomiting, and diarrhea. 01:40 Back: Negative for acute changes. 01:40 : Negative for urinary symptoms. 01:40 MS/extremity: Negative for acute changes. 01:40 Skin: Negative for rash. 01:40 Neuro: Positive for headache, Negative for altered mental status. Exam: 01:40 Head/Face: Normocephalic, atraumatic. Eyes: Pupils equal round and reactive to light, pkl extra-ocular motions intact. Lids and lashes normal. Conjunctiva and sclera are non-icteric and not injected. Cornea within normal limits. Periorbital areas with no swelling, redness, or edema. ENT: Nares patent. No nasal discharge, no septal abnormalities noted. Tympanic membranes are normal and external auditory canals are clear. Oropharynx with no redness, swelling, or masses, exudates, or evidence of obstruction, uvula midline. Mucous membranes moist. Neck: Trachea midline, no thyromegaly or masses palpated, and no cervical lymphadenopathy. Supple, full range of motion without nuchal rigidity, or vertebral point tenderness. No Meningismus. Chest/axilla: Normal chest wall appearance and motion. Nontender with no deformity. No lesions are appreciated. Cardiovascular: Regular rate and rhythm with a normal S1 and S2. No gallops, murmurs, or rubs. Normal PMI, no JVD. No pulse deficits. Respiratory: Lungs have equal breath sounds bilaterally, clear to auscultation and percussion. No rales, rhonchi or wheezes noted. No increased work of breathing, no retractions or nasal flaring. Abdomen/GI: Soft, non-tender, with normal bowel sounds. No distension or tympany. No guarding or rebound. No evidence of tenderness throughout. Back: No spinal tenderness. No costovertebral tenderness. Full range of motion. Skin: Warm, dry with normal turgor. Normal color with no rashes, no lesions, and no evidence of cellulitis. MS/ Extremity: Pulses equal, no cyanosis. Neurovascular intact. Full, normal range of motion. Neuro: Awake and alert, GCS 15, oriented to person, place, time, and situation. Cranial nerves II-XII grossly intact. Motor strength 5/5 in all extremities. Sensory grossly intact. Cerebellar exam normal. Normal gait. Vital Signs: 00:45 BP 142 / 103; Pulse 87; Resp 18; Temp 98.4(O); Pulse Ox 98% on R/A; Weight 99.79 kg fc (R); Height 5 ft. 0 in. (152.40 cm) (R); Pain 2/10; 01:00 BP 122 / 42; Pulse 88; Resp 14; Pulse Ox 98% on R/A; lp1 02:00 BP 121 / 77; Pulse 88; Resp 13; Pulse Ox 97% on R/A; lp1 03:00 BP 138 / 91; Pulse 85; Resp 17; Pulse Ox 95% on R/A; lp1 04:00 BP 123 / 51; Pulse 79; Resp 16; Pulse Ox 96% on R/A; lp1 05:00 BP 92 / 56; Pulse 83; Resp 20; Pulse Ox 97% on R/A; lp1 06:00 BP 107 / 73; Pulse 74; Resp 20; Pulse Ox 96% on R/A; lp1 07:12 BP 131 / 61; Pulse 78; Resp 18; Pulse Ox 98% ; sv 08:17 BP 130 / 51; Pulse 74 MON; Resp 18 S; Pulse Ox 98% on R/A; sg 10:27 BP 113 / 58; Pulse 87; Resp 16; Pulse Ox 99% on R/A; Pain 5/10; sg 11:00 BP 108 / 45; Pulse 82 MON; Resp 14; Pulse Ox 99% on R/A; sg 00:45 Body Mass Index 42.97 (99.79 kg, 152.40 cm) MDM: 01:14 Patient medically screened. pkl 06:35 Data reviewed: vital signs, nurses notes, lab test result(s), EKG, radiologic studies, pkl plain films. 07/17 01:20 Order name: Basic Metabolic Panel pkl 07/17 01:20 Order name: CBC with Diff; Complete Time: 01:50 pkl 07/17 01:20 Order name: LFT's; Complete Time: 02:03 pkl 07/17 01:20 Order name: Magnesium; Complete Time: 02:03 pkl 07/17 01:20 Order name: NT PRO-BNP; Complete Time: 02:03 pkl 07/17 01:20 Order name: PT-INR; Complete Time: 01:50 pkl 07/17 01:20 Order name: Troponin (emerg Dept Use Only); Complete Time: 02:03 pkl 07/17 01:20 Order name: XRAY Chest (1 view); Complete Time: 08:22 pkl 07/17 01:20 Order name: EKG; Complete Time: 01:23 pkl 07/17 01:20 Order name: Basic Metabolic Panel; Complete Time: 02:03 EDMS 07/17 04:23 Order name: Troponin (emerg Dept Use Only); Complete Time: 05:40 lp1 07/17 01:20 Order name: Cardiac monitoring; Complete Time: 01:21 pkl 07/17 01:20 Order name: EKG - Nurse/Tech; Complete Time: :44 pkl 07/17 01:20 Order name: IV Saline Lock; Complete Time: :44 pkl 07/17 01:20 Order name: Labs collected and sent; Complete Time: 01:46 pkl 07/17 01:20 Order name: O2 Per Protocol; Complete Time: 01:21 pkl 07/17 01:20 Order name: O2 Sat Monitoring; Complete Time: 01:21 pkl 07/17 07:16 Order name: EKG Electrocardiogram EDMS Administered Medications: 02:40 Drug: Madison 5 mg-325 mg 1 tabs {Note: RASS 0.} Route: PO; lp1 03:45 Follow up: Response: Pain is decreased; RASS: Alert and Calm (0) lp1 05:56 Drug: Lovenox 90 mg Route: Sub-Q; Site: left lower abdomen; lp1 07:00 Follow up: Response: No adverse reaction sg 11:15 Drug: Entresto 24 mg-26 mg 1 tabs Route: PO; sg 11:15 Follow up: Response: No adverse reaction Disposition: 07/17/19 08:25 Transfer ordered to Other Acute Care Facility. Diagnosis are Other chest pain, Cardiomegaly, Unspecified combined systolic (congestive) and diastolic (congestive) heart failure, Ventricular tachycardia, Atrial fibrillation and flutter, Presence of cardiac pacemaker, Presence of automatic (implantable) cardiac defibrillator, Elevated white blood cell count, Unspecified kidney failure. - Reason for transfer: Higher level of care. - Accepting physician is Dr. Hawkins. - Condition is Fair. - Problem is new. - Symptoms have improved. Signatures: Dispatcher [employer] EDMS Benito Mccall RN RN Bipin Witt MD MD cha Lam, Pin, MD MD pkl Chretien, Felicia RN RN Meera Maria RN RN lp1 Tracy Mathur RN RN Corrections: (The following items were deleted from the chart) 11:23 08:25 07/17/2019 08:25 Transfer ordered to Other Acute Care Facility. Diagnosis is hb Other chest pain; Cardiomegaly; Unspecified combined systolic (congestive) and diastolic (congestive) heart failure; Ventricular tachycardia; Atrial fibrillation and flutter; Presence of cardiac pacemaker; Presence of automatic (implantable) cardiac defibrillator; Elevated white blood cell count; Unspecified kidney failure. Reason for transfer: Higher level of care. Accepting physician is Dr. Hawkins. Condition is Fair. Problem is new. Symptoms have improved. yaima
--- NOTE | 2019-07-17 08:26 | ER ---
Nurse's Notes [facility] Name: Jelly Garcia Age: 73 yrs Sex: Female : 1945 Arrival Date: 07/17/2019 Time: 00:50 Bed 4 Private MD: Diagnosis: Other chest pain;Cardiomegaly;Unspecified combined systolic (congestive) and diastolic (congestive) heart failure;Ventricular tachycardia;Atrial fibrillation and flutter;Presence of cardiac pacemaker;Presence of automatic (implantable) cardiac defibrillator;Elevated white blood cell count;Unspecified kidney failure Presentation: 07/17 00:45 Presenting complaint: EMS states: that they were toned because pt says her pacer/defib fc went off when she was walking to kitchen. Pt currently denies any shortness of breath but is having slight pain to upper left chest. Pacer/Defib was placed 2 weeks ago in [facility]. Transition of care: patient was not received from another setting of care. Onset of symptoms was July 17, 2019 at 00:15. Risk Assessment: Do you want to hurt yourself or someone else? Patient reports no desire to harm self or others. Initial Sepsis Screen: Does the patient meet any 2 criteria? No. Patient's initial sepsis screen is negative. Does the patient have a suspected source of infection? No. Patient's initial sepsis screen is negative. Care prior to arrival: IV initiated. 20 GA, in the left forearm. 00:45 Method Of Arrival: EMS: [facility] 00:45 Acuity: BRIAN 3 fc Historical: - Allergies: 01:06 No Known Allergies; fc - Home Meds: 01:06 aspirin 81 mg Oral TbEC 1 tab once daily [Active]; Coreg 6.25 mg Oral tab 1 tab 2 times fc per day [Active]; Xigduo XR 5-1,000 mg oral TBph 1 tab once daily [Active]; duloxetine 60 mg Oral cpDR 1 cap twice a day [Active]; furosemide 40 mg Oral tab 1 tab 2 times per day [Active]; Laconia 5-325 mg Oral tab 1 tab q4hrs prn [Active]; melatonin 3 mg Oral tab 2 tab nightly [Active]; Zaroxolyn 2.5 mg Oral tab 1 tab Mon-Wed-Fri [Active]; spironolactone 50 mg Oral tab 1 tab once daily [Active]; omeprazole 20 mg Oral cpDR 1 cap once daily [Active]; prednisone 20 mg Oral tab 1 tab once daily [Active]; Entresto 24-26 mg oral tab twice a day [Active]; - PMHx: 01:06 Hypertension; Fibromyalgia; Atrial Fib; temporal arteritis; Diabetes - NIDDM; fc - PSHx: 01:06 Pacer/Defib placed 07/03/2019; Cholecystectomy; Hernia repair; Hysterectomy; fc - Immunization history:: Last tetanus immunization: up to date Flu vaccine is not up to date. - Social history:: Smoking status: Patient/guardian denies using tobacco, Patient/guardian denies using alcohol, street drugs. - Ebola Screening: : Patient negative for fever greater than or equal to 101.5 degrees Fahrenheit, and additional compatible Ebola Virus Disease symptoms Patient denies exposure to infectious person Patient denies travel to an Ebola-affected area in the 21 days before illness onset. Screenin:45 Abuse screen: Denies threats or abuse. Nutritional screening: No deficits noted. fc Tuberculosis screening: No symptoms or risk factors identified. Fall Risk None identified. Assessment: 00:59 General: Appears in no apparent distress. Behavior is calm, cooperative, appropriate lp1 for age. Pain: Denies pain. Neuro: Level of Consciousness is awake, alert, obeys commands, Oriented to person, place, time, situation. Cardiovascular: Patient's skin is warm and dry. Respiratory: Respiratory effort is even, unlabored, Respiratory pattern is regular, Breath sounds are clear bilaterally. GI: Abdomen is obese. : No signs and/or symptoms were reported regarding the genitourinary system. EENT: No signs and/or symptoms were reported regarding the EENT system. Derm: Skin is intact, Skin is dry, Skin is normal, incision site to pacemaker clean dry and intact. Musculoskeletal: No deficits noted. 02:27 Reassessment: [facility] contacted for interrogation; Cissp Layton Jaimes will call with ETA. Reassessment: Patient complaint of pain to pacemaker site at this time; Provider notified. 02:30 Reassessment: Verbal order from Dr. Herr to administer Laconia 5-325mg PO x1. lp1 02:33 Reassessment: Spoke with Layton Jaimes; States he will arrive about 0800 this morning. lp1 03:35 Reassessment: [place] [facility] [place]1 04:45 Reassessment: Patient appears in no apparent distress at this time. Patient and/or lp1 family updated on plan of care and expected duration. Pain level reassessed. 06:00 Reassessment: Patient appears in no apparent distress at this time. Patient and/or lp1 family updated on plan of care and expected duration. Pain level reassessed. Patient is alert, oriented x 3, equal unlabored respirations, skin warm/dry/pink. 07:58 Reassessment: Patient appears in no apparent distress at this time. Layton from [facility] at bedside for interrogation at this time. 08:16 Reassessment: Patient appears in no apparent distress at this time. Patient and/or sg family updated on plan of care and expected duration. Pain level reassessed. Patient is alert, oriented x 3, equal unlabored respirations, skin warm/dry/pink. Layton, [facility] updating on results from interrogation, no new orders received at this time, pt remains alert and oriented x4 no s/s of distress noted at this time, will continue to monitor Patient denies pain at this time. 08:22 Reassessment: Patient appears in no apparent distress at this time. pt to be sg transferred, initiating transfer now. 08:26 Reassessment: Patient appears in no apparent distress at this time. at bedside updating pt and pt family on results of pacemaker interrogation and need of transfer for evaluation by , pt reports she has not taken her normal medications today, instructed pt to continue her normal medications, pt stated understanding. 09:40 Reassessment: Patient appears in no apparent distress at this time. Patient and/or sg family updated on plan of care and expected duration. Pain level reassessed. Patient is alert, oriented x 3, equal unlabored respirations, skin warm/dry/pink. pt encouraged to obtain home medications, pt reports " the ambulance drivers told me to leave my medicines at home because yall could give me medication." pt educated that the hospital does not carry the Entresto or 'Zyguda or maybe zaroxolyn' medications, pt to be transported to receiving facility at this time, awaiting transfer transportation. 09:48 Reassessment:. sg 10:33 Reassessment: pt reports " I was wondering if it was time for me to have pain sg medication. Reassessment: notified pt requesting something for pain at this time. 10:50 Reassessment: pt remains in hospital bed at this time, snoring resp noted, no s/s sg distress noted, pt family remains at bedside VS remain WNL. 11:20 Reassessment: Patient appears in no apparent distress at this time. pt belongings- a sg book, eye glasses, brown slippers, a green cardioverter machine with black charging cord, a bra, a top/shirt, were placed in a patient belongings bag and given to EMS for transport. Vital Signs: 00:45 BP 142 / 103; Pulse 87; Resp 18; Temp 98.4(O); Pulse Ox 98% on R/A; Weight 99.79 kg fc (R); Height 5 ft. 0 in. (152.40 cm) (R); Pain 2/10; 01:00 BP 122 / 42; Pulse 88; Resp 14; Pulse Ox 98% on R/A; lp1 02:00 BP 121 / 77; Pulse 88; Resp 13; Pulse Ox 97% on R/A; lp1 03:00 BP 138 / 91; Pulse 85; Resp 17; Pulse Ox 95% on R/A; lp1 04:00 BP 123 / 51; Pulse 79; Resp 16; Pulse Ox 96% on R/A; lp1 05:00 BP 92 / 56; Pulse 83; Resp 20; Pulse Ox 97% on R/A; lp1 06:00 BP 107 / 73; Pulse 74; Resp 20; Pulse Ox 96% on R/A; lp1 07:12 BP 131 / 61; Pulse 78; Resp 18; Pulse Ox 98% ; sv 08:17 BP 130 / 51; Pulse 74 MON; Resp 18 S; Pulse Ox 98% on R/A; sg 10:27 BP 113 / 58; Pulse 87; Resp 16; Pulse Ox 99% on R/A; Pain 5/10; sg 11:00 BP 108 / 45; Pulse 82 MON; Resp 14; Pulse Ox 99% on R/A; sg 00:45 Body Mass Index 42.97 (99.79 kg, 152.40 cm) ED Course: 00:45 Arm band placed on Patient placed in an exam room, on a stretcher. fc 00:45 Patient has correct armband on for positive identification. Placed in gown. Bed in low fc position. Call light in reach. Side rails up X2. athletic monitor on. Pulse ox on. NIBP on. 00:45 No provider procedures requiring assistance completed. Maintain EMS IV. Dressing fc intact. Good blood return noted. Site clean \\T\\ dry. Gauge \\T\\ site: 20 gauge to left f/a. 00:50 Patient arrived in ED. ds1 00:59 Meera Maria, RN is Primary Nurse. lp1 00:59 Triage completed. fc 01:13 Amor Herr MD is Attending Physician. pkl 01:30 Initial lab(s) drawn, by me, sent to lab. lp1 02:04 XRAY Chest (1 view) In Process Unspecified. EDMS 04:35 Repeat lab(s) drawn. by me, sent to lab. lp1 04:53 EKG done, by ED staff, reviewed by Amor Herr MD. lp1 04:56 Primary Nurse role handed off by Meera Maria, SAQIB mw2 04:57 Meera Maria, RN is Primary Nurse. lp1 07:08 Basic Metabolic Panel Sent. sv 07:48 Primary Nurse role handed off by Meera Maria RN bd 08:21 Attending Physician role handed off by Amor Herr MD yaima 08:21 Bipin Webber MD is Attending Physician. yaima 08:42 Benito Mccall, RN is Primary Nurse. sg 09:22 Oral care given. bd 09:37 Patient transferred, IV remains in place. intact, No redness/swelling at site. sg 11:11 transfer transportation to receiving facility. sg Administered Medications: 02:40 Drug: Laconia 5 mg-325 mg 1 tabs {Note: RASS 0.} Route: PO; lp1 03:45 Follow up: Response: Pain is decreased; RASS: Alert and Calm (0) lp1 05:56 Drug: Lovenox 90 mg Route: Sub-Q; Site: left lower abdomen; lp1 07:00 Follow up: Response: No adverse reaction sg 11:15 Drug: Entresto 24 mg-26 mg 1 tabs Route: PO; sg 11:15 Follow up: Response: No adverse reaction sg Outcome: 08:25 ER care complete, transfer ordered by MD. erwin 09:31 Transferred by ground EMS to other acute care facility: [facility]- ER. 09:31 Condition: good 09:31 Instructed on the need for transfer, safety practices, Demonstrated understanding of instructions. 09:31 Transferred Note: Report given to Kristyn high 11:23 Patient left the ED. hb Signatures: Dispatcher [employer] EDMS Rhianna Vickers Stephanie, RN Benito Bean RN RN sg Anderson, Corey, MD MD cha Lam, Pin, MD MD pkl Chretien, Felicia RN RN Olga Washington ds1 Meera Maria RN RN lp1 Tracy Mathur RN RN Gregory Bennett mw2 Corrections: (The following items were deleted from the chart) 04:56 04:55 BP 123 / 51; Pulse 79bpm; Resp 16bpm; Pulse Ox 96% RA; lp1 lp1 09:49 09:40 Reassessment: Patient appears in no apparent distress at this time. Patient sg and/or family updated on plan of care and expected duration. Pain level reassessed. Patient is alert, oriented x 3, equal unlabored respirations, skin warm/dry/pink. pt encouraged to obtain home medications, pt reports " the ambulance drivers told me to leave my medicines at home because yall could give me medication." pt educated that the hospital does not carry the Entresto or 'Zyguda' medications, pt to be transported to receiving facility at this time, awaiting transfer transportation sg
[2019-07-17 12:00] VITALS: TEMP 97.2
[2019-07-17] MEDS ORDERED: SACUBITRIL/VALSARTAN 24/26 MG TAB PO ONE (12:00)
[2019-07-17 12:07] VITALS: BP 100/60; O2SAT 99
--- NOTE | 2019-07-17 12:13 | EKG ---
Test Date: 2019-07-17 Test Time: 04:42:00 Corporate Development Manager: BRAYAN MEASUREMENT RESULTS: Intervals: Rate: 85 CA: 102 QRSD: 86 QT: 412 QTc: 490 [place]: P: 38 CA: 102 QRS: 3 T: 128 INTERPRETIVE STATEMENTS: Suspect unspecified pacemaker failure Sinus tachycardia with blocked premature atrial complexes with premature ventricular complexes or fusion complexes Moderate voltage criteria for LVH, may be normal variant Cannot rule out Inferior infarct, age undetermined Abnormal ECG Compared to ECG 09/14/2018 11:42:44 Fusion complex(es) now present Ventricular premature complex(es) now present Left ventricular hypertrophy now present Myocardial infarct finding now present Sinus rhythm no longer present Short CA interval no longer present Aberrant conduction of supraventricular beat(s) no longer present T-wave abnormality no longer present Electronically Signed On 07-17-19 12:10:19 CDT by Jairon Munoz
--- NOTE | 2019-07-17 12:13 | EKG ---
Test Date: 2019-07-17 Test Time: 01:31:51 Blast Furnace Operator: MICHELLE MEASUREMENT RESULTS: Intervals: Rate: 88 TN: 112 QRSD: 96 QT: 352 QTc: 425 [place]: P: 41 TN: 112 QRS: -7 T: 142 INTERPRETIVE STATEMENTS: Sinus rhythm with premature atrial complexes in a pattern of bigeminy Left ventricular hypertrophy with repolarization abnormality Abnormal ECG Compared to ECG 09/14/2018 11:42:44 Left ventricular hypertrophy now present Early repolarization now present Short TN interval no longer present Aberrant conduction of supraventricular beat(s) no longer present T-wave abnormality no longer present Electronically Signed On 07-17-19 12:10:22 CDT by Jairon Munoz
== END 2019-07-17 11:23 ==
LOC: ER 00:49
DX: I51.7 Cardiomegaly (principal); I50.40 Unspecified combined systolic (congestive) and diastolic (congestive) heart failure; I47.2 Ventricular tachycardia; I48.91 Unspecified atrial fibrillation; I48.92 Unspecified atrial flutter; D72.829 Elevated white blood cell count, unspecified; N19 Unspecified kidney failure; I10 Essential (primary) hypertension; E11.9 Type 2 diabetes mellitus without complications; Z79.82 Long term (current) use of aspirin; Z95.810 Presence of automatic (implantable) cardiac defibrillator
CPT/HCPCS: 93005 ×2; 85025; 80048; 36415; 83735; 85610; 80076; 84484 ×2; 83880; 71045; 96372; 99285; J1650

== ENCOUNTER 2019-09-14 11:57 | Inpatient (IN) | payer OTHER, MEDICARE ==
--- OUTSIDE RECORDS SUMMARY | 2019-09-14 12:05 | XMS REPORT ---
:1945 [facility] Address [address] [place] [address] Care Team Providers Name Role Phone Unavailable Unavailable Unavailable Payers Payer Name Policy Type Policy Number Effective Date Expiration Date Problems This patient has no known problems. Allergies, Adverse Reactions, Alerts Allergy Allergy Status Severity Reaction(s) Onset Inactive Treating Comments Name Type Date Date Clinician No Known DA Active U 2019-06 Allergies -23 00:00:0 0 Medications This patient has no known medications. Results Test Description Test Time Test Comments Text Results Atomic Results Result Comments GLUCOSE BEDSIDE TESTING 2019-07-21 07:45:00 Test Item Value Reference Range Comments GLUCOSE BEDSIDE TESTING (test code=GLUBED) 130 MG/DL 60-99 BASIC METABOLIC [id number] 06:54:00 Test Item Value Reference Range Comments SODIUM (test code=NA) 130 MMOL/L 137-145 POTASSIUM (test code=K) 4.1 MMOL/L 3.5-5.1 CHLORIDE (test code=CL) 91 MMOL/L 98-107 CARBON DIOXIDE (test code=CO2) 29 MMOL/L 22-30 GLUCOSE (test code=GLU) 135 MG/DL 74-106 BLOOD UREA NITROGEN (test 56 MG/DL 7-17 code=BUN) GLOMERULAR FILTRATION RATE 44 Reporting units: ml/min/1.73 (test code=GFR) m2 (Modified MDRD Formula)Reference Range: > or=60 ml/min/1.73 m2 CREATININE (test code=CREAT) 1.20 MG/DL 0.52-1.04 CALCIUM (test code=CA) 9.8 MG/DL 8.4-10.2 BASIC METABOLIC [id number] 06:53:00 Test Item Value Reference Range Comments SODIUM (test code=NA) 130 MMOL/L 137-145 POTASSIUM (test code=K) 4.1 MMOL/L 3.5-5.1 CHLORIDE (test code=CL) 91 MMOL/L 98-107 CARBON DIOXIDE (test code=CO2) 29 MMOL/L 22-30 GLUCOSE (test code=GLU) 135 MG/DL 74-106 BLOOD UREA NITROGEN (test 56 MG/DL 7-17 code=BUN) GLOMERULAR FILTRATION RATE 44 Reporting units: ml/min/1.73 (test code=GFR) m2 (Modified MDRD Formula)Reference Range: > or=60 ml/min/1.73 m2 CREATININE (test code=CREAT) 1.20 MG/DL 0.52-1.04 CALCIUM (test code=CA) MG/DL 8.7-9.7 BASIC METABOLIC [id number] 06:50:00 Test Item Value Reference Range Comments SODIUM (test code=NA) 130 MMOL/L 137-145 POTASSIUM (test code=K) 4.1 MMOL/L 3.5-5.1 CHLORIDE (test code=CL) 91 MMOL/L 98-107 CARBON DIOXIDE (test code=CO2) MMOL/L 22-30 GLUCOSE (test code=GLU) MG/DL 74-106 BLOOD UREA NITROGEN (test code=BUN) MG/DL 7-17 GLOMERULAR FILTRATION RATE (test code=GFR) CREATININE (test code=CREAT) MG/DL 0.52-1.04 CALCIUM (test code=CA) MG/DL 8.7-9.7 CBC W/AUTO [id number] 06:24:00 Test Item Value Reference Range Comments WHITE BLOOD CELL (test code=WBC) 14.5 K/MM3 3.8-9.8 RED BLOOD CELL (test code=RBC) 4.70 M/MM3 3.58-4.97 HEMOGLOBIN (test code=HGB) 11.2 G/DL 11.2-14.9 HEMATOCRIT (test code=HCT) 38.1 % 33.2-43.5 MEAN CELL VOLUME (test code=MCV) 81 fL 80.7-99.1 MEAN CELL HGB (test code=MCH) 23.8 pg 27.0-34.1 MEAN CELL HGB CONCETRATION (test code=MCHC) 29.4 % 32.2-35.7 RED CELL DISTRIBUTION WIDTH (test code=RDW) 17.1 % 12.1-15.2 PLATELET COUNT (test code=PLT) 415 K/MM3 129-368 MEAN PLATELET VOLUME (test code=MPV) 9.9 fl 7.4-10.4 NEUTROPHIL % (test code=NT%) 73.6 % 43-75 IMMATURE GRANULOCYTE % (test code=IG%) 1.3 % 0.0-2.0 LYMPHOCYTE % (test code=LY%) 16.3 % 14-44 MONOCYTE % (test code=MO%) 7.8 % 4-13 EOSINOPHIL % (test code=EO%) 0.6 % 0-6 BASOPHIL % (test code=BA%) 0.4 % 0-2 NUCLEATED RBC % (test code=NRBC%) 0.0 % 0-1.0 NEUTROPHIL # (test code=NT#) 10.63 K/mm3 2.0-7.6 IMMATURE GRANULOCYTE # (test code=IG#) 0.19 x10 3/uL 0-0.03 LYMPHOCYTE # (test code=LY#) 2.36 K/mm3 1.0-3.8 MONOCYTE # (test code=MO#) 1.12 K/mm3 0.1-0.8 EOSINOPHIL # (test code=EO#) 0.09 K/mm3 0.0-0.2 BASOPHIL # (test code=BA#) 0.06 K/mm3 0.0-0.2 NUCLEATED RBC # (test code=NRBC#) 0.00 K/mm3 0.0-0.1 GLUCOSE BEDSIDE [id number] 05:35:00 Test Item Value Reference Range Comments GLUCOSE BEDSIDE TESTING (test code=GLUBED) 161 MG/DL 60-99 UR SODIUM [id number] 00:53:00 Test Item Value Reference Range Comments UR SODIUM RANDOM (test code=MARIAH) 13 MMOL/L 27-287 UR OSMOLALITY [id number] 00:53:00 Test Item Value Reference Range Comments UR OSMOLALITY RANDOM (test code=OSMOU) 310.5 MOS/KG 300-1200 UR SODIUM [id number] 23:08:00 Test Item Value Reference Range Comments UR SODIUM RANDOM (test code=MARIAH) 13 MMOL/L 27-287 UR OSMOLALITY [id number] 23:08:00 Test Item Value Reference Range Comments UR OSMOLALITY RANDOM (test code=OSMOU) MOS/KG 300-1200 OSMOLALITY [id number] 19:19:00 Test Item Value Reference Range Comments OSMOLALITY SERUM (test code=OSMO) 301 mOsm/kg 275-295 GLUCOSE BEDSIDE [id number] 16:55:00 Test Item Value Reference Range Comments GLUCOSE BEDSIDE TESTING (test code=GLUBED) 294 MG/DL 60-99 GLUCOSE BEDSIDE [id number] 12:44:00 Test Item Value Reference Range Comments GLUCOSE BEDSIDE TESTING (test code=GLUBED) 202 MG/DL 60-99 GLUCOSE BEDSIDE [id number] 11:17:00 Test Item Value Reference Range Comments GLUCOSE BEDSIDE TESTING (test code=GLUBED) 266 MG/DL 60-99 GLUCOSE BEDSIDE [id number] 11:16:00 Test Item Value Reference Range Comments GLUCOSE BEDSIDE TESTING (test code=GLUBED) 112 MG/DL 60-99 - XR CHEST [id number] 08:11:00 Patient Name: BREA GILES Unit No: [id number] EXAMS: CPT CODE: [id number] XR CHEST 1V 19125 Site ID: [id number] EXAMINATION: - XR CHEST 1V. HISTORY : leukocytosis, f/u chf. COMPARISON: July 17, 2019. Findings: The lungs are clear. The heart size is enlarged. There is a pacemaker with 2 cardiac leads again seen..There is no effusion or pneumothorax. The mediastinum and david appear unremarkable. Impression: Cardiomegaly. at 0811 Reported and signed by : Ramesh Way MD CC: Dexter Flores MD; Viviana Thompson MD Technologist: Frances Reardon RT( R) Transcrpt Date/Tm/Trnsp: 07/20/2019 (0811) Wendy Orig Print D/T: S: 07/20/2019 (0814) [facility] NAME:BREA GILES [id number] PHYS: [email or web address] [place] [address] : 1945 AGE: 73 SEX: F LOC: Darrell Dobbisn PHONE #: [phone] EXAM DATE: 07/20/2019 STATUS: ADM IN FAX #: [phone] RADIOLOGY NO: PAGE 1 Signed ReportBASIC METABOLIC [id number] 05:45:00 Test Item Value Reference Range Comments SODIUM (test code=NA) 129 MMOL/L 137-145 POTASSIUM (test code=K) 3.6 MMOL/L 3.5-5.1 CHLORIDE (test code=CL) 88 MMOL/L 98-107 CARBON DIOXIDE (test code=CO2) 29 MMOL/L 22-30 GLUCOSE (test code=GLU) 126 MG/DL 74-106 BLOOD UREA NITROGEN (test 62 MG/DL 7-17 code=BUN) GLOMERULAR FILTRATION RATE 44 Reporting units: ml/min/1.73 (test code=GFR) m2 (Modified MDRD Formula)Reference Range: > or=60 ml/min/1.73 m2 CREATININE (test code=CREAT) 1.20 MG/DL 0.52-1.04 CALCIUM (test code=CA) 9.5 MG/DL 8.4-10.2 [id number] 05:41:00 Test Item Value Reference Range Comments DIGOXIN (test code=DIG) 0.6 NG/ML 0.8-2.0 BASIC METABOLIC [id number] 05:25:00 Test Item Value Reference Range Comments SODIUM (test code=NA) 129 MMOL/L 137-145 POTASSIUM (test code=K) 3.6 MMOL/L 3.5-5.1 CHLORIDE (test code=CL) 88 MMOL/L 98-107 CARBON DIOXIDE (test code=CO2) 29 MMOL/L 22-30 GLUCOSE (test code=GLU) MG/DL 74-106 BLOOD UREA NITROGEN (test MG/DL 7-17 code=BUN) GLOMERULAR FILTRATION RATE 44 Reporting units: ml/min/1.73 (test code=GFR) m2 (Modified MDRD Formula)Reference Range: > or=60 ml/min/1.73 m2 CREATININE (test code=CREAT) 1.20 MG/DL 0.52-1.04 CALCIUM (test code=CA) MG/DL 8.7-9.7 BASIC METABOLIC [id number] 05:22:00 Test Item Value Reference Range Comments SODIUM (test code=NA) 129 MMOL/L 137-145 POTASSIUM (test code=K) 3.6 MMOL/L 3.5-5.1 CHLORIDE (test code=CL) 88 MMOL/L 98-107 CARBON DIOXIDE (test code=CO2) MMOL/L 22-30 GLUCOSE (test code=GLU) MG/DL 74-106 BLOOD UREA NITROGEN (test code=BUN) MG/DL 7-17 GLOMERULAR FILTRATION RATE (test code=GFR) CREATININE (test code=CREAT) MG/DL 0.52-1.04 CALCIUM (test code=CA) MG/DL 8.7-9.7 CBC W/AUTO [id number] 05:00:00 Test Item Value Reference Range Comments WHITE BLOOD CELL (test code=WBC) 16.4 K/MM3 3.8-9.8 RED BLOOD CELL (test code=RBC) 4.71 M/MM3 3.58-4.97 HEMOGLOBIN (test code=HGB) 11.4 G/DL 11.2-14.9 HEMATOCRIT (test code=HCT) 38.7 % 33.2-43.5 MEAN CELL VOLUME (test code=MCV) 82 fL 80.7-99.1 MEAN CELL HGB (test code=MCH) 24.2 pg 27.0-34.1 MEAN CELL HGB CONCETRATION (test code=MCHC) 29.5 % 32.2-35.7 RED CELL DISTRIBUTION WIDTH (test code=RDW) 16.9 % 12.1-15.2 PLATELET COUNT (test code=PLT) 454 K/MM3 129-368 MEAN PLATELET VOLUME (test code=MPV) 9.5 fl 7.4-10.4 NEUTROPHIL % (test code=NT%) 76.7 % 43-75 IMMATURE GRANULOCYTE % (test code=IG%) 1.4 % 0.0-2.0 LYMPHOCYTE % (test code=LY%) 14.6 % 14-44 MONOCYTE % (test code=MO%) 6.3 % 4-13 EOSINOPHIL % (test code=EO%) 0.7 % 0-6 BASOPHIL % (test code=BA%) 0.3 % 0-2 NUCLEATED RBC % (test code=NRBC%) 0.0 % 0-1.0 NEUTROPHIL # (test code=NT#) 12.54 K/mm3 2.0-7.6 IMMATURE GRANULOCYTE # (test code=IG#) 0.23 x10 3/uL 0-0.03 LYMPHOCYTE # (test code=LY#) 2.39 K/mm3 1.0-3.8 MONOCYTE # (test code=MO#) 1.03 K/mm3 0.1-0.8 EOSINOPHIL # (test code=EO#) 0.11 K/mm3 0.0-0.2 BASOPHIL # (test code=BA#) 0.05 K/mm3 0.0-0.2 NUCLEATED RBC # (test code=NRBC#) 0.00 K/mm3 0.0-0.1 URINALYSIS [id number] 21:50:00 Test Item Value Reference Range Comments UA COLOR (test code=COLU) YELLOW YELLOW UA APPEARANCE (test code=APPU) CLEAR CLEAR UA GLUCOSE DIPSTICK (test code=DGLUU) NORMAL MG/DL NORMAL UA BILIRUBIN DIPSTICK (test code=BILU) NEGATIVE MG/DL NEGATIVE UA KETONE DIPSTICK (test code=KETU) NEGATIVE MG/DL NEGATIVE UA SPECIFIC GRAVITY (test code=SGU) 1.015 1.003-1.030 UA BLOOD DIPSTICK (test code=AARON) NEGATIVE Gonzalez/mm3 NEGATIVE UA PH DIPSTICK (test code=LIZETTE) 5.0 5.0-9.0 UA PROTEIN DIPSTICK (test code=PROU) NEGATIVE MG/DL NEGATIVE UA UROBILINIOGEN DIPSTICK (test NORMAL MG/DL NORMAL code=URO) UA NITRITE DIPSTICK (test code=ALY) NEGATIVE NEGATIVE UA LEUKOCYTE ESTERASE DIPSTICK (test TRACE /mm3 NEGATIVE code=LEUU) UA CULTURE NEEDED? (test code=UACULT) NO, WBC<10 Criteria Culture Chk SOURCE OF URINE: VOIDEDUA [id number] 21:50:00 Test Item Value Reference Range Comments UA RBC (test code=RBCU) 0-3 RBC/HPF 0-3 UA WBC (test code=XWBCU) 5-9 WBC/HPF 0-5 UA EPITHELIAL CELLS (test code=EPIU) FEW EPI/HPF FEW UA BACTERIA (test code=XBACU) FEW NONE SOURCE OF URINE: VOIDEDURINALYSIS [id number] 21:43:00 Test Item Value Reference Range Comments UA COLOR (test code=COLU) YELLOW YELLOW UA APPEARANCE (test code=APPU) CLEAR CLEAR UA GLUCOSE DIPSTICK (test code=DGLUU) NORMAL MG/DL NORMAL UA BILIRUBIN DIPSTICK (test code=BILU) NEGATIVE MG/DL NEGATIVE UA KETONE DIPSTICK (test code=KETU) NEGATIVE MG/DL NEGATIVE UA SPECIFIC GRAVITY (test code=SGU) 1.015 1.003-1.030 UA BLOOD DIPSTICK (test code=AARON) NEGATIVE Gonzlaez/mm3 NEGATIVE UA PH DIPSTICK (test code=LIZETTE) 5.0 5.0-9.0 UA PROTEIN DIPSTICK (test code=PROU) NEGATIVE MG/DL NEGATIVE UA UROBILINIOGEN DIPSTICK (test code=URO) NORMAL MG/DL NORMAL UA NITRITE DIPSTICK (test code=ALY) NEGATIVE NEGATIVE UA LEUKOCYTE ESTERASE DIPSTICK (test TRACE /mm3 NEGATIVE code=LEUU) UA CULTURE NEEDED? (test code=UACULT) Criteria Culture Chk SOURCE OF URINE: VOIDEDUA [id number] 21:43:00 Test Item Value Reference Range Comments UA RBC (test code=RBCU) RBC/HPF 0-3 UA WBC (test code=XWBCU) WBC/HPF 0-5 UA EPITHELIAL CELLS (test code=EPIU) EPI/HPF FEW UA BACTERIA (test code=XBACU) NONE SOURCE OF URINE: VOIDEDURINALYSIS [id number] 21:43:00 Test Item Value Reference Range Comments UA COLOR (test code=COLU) YELLOW YELLOW UA APPEARANCE (test code=APPU) CLEAR CLEAR UA GLUCOSE DIPSTICK (test code=DGLUU) NORMAL MG/DL NORMAL UA BILIRUBIN DIPSTICK (test code=BILU) NEGATIVE MG/DL NEGATIVE UA KETONE DIPSTICK (test code=KETU) NEGATIVE MG/DL NEGATIVE UA SPECIFIC GRAVITY (test code=SGU) 1.015 1.003-1.030 UA BLOOD DIPSTICK (test code=AARON) NEGATIVE Gonzalez/mm3 NEGATIVE UA PH DIPSTICK (test code=LIZETTE) 5.0 5.0-9.0 UA PROTEIN DIPSTICK (test code=PROU) NEGATIVE MG/DL NEGATIVE UA UROBILINIOGEN DIPSTICK (test code=URO) NORMAL MG/DL NORMAL UA NITRITE DIPSTICK (test code=ALY) NEGATIVE NEGATIVE UA LEUKOCYTE ESTERASE DIPSTICK (test TRACE /mm3 NEGATIVE code=LEUU) UA CULTURE NEEDED? (test code=UACULT) Criteria Culture Chk SOURCE OF URINE: VOIDEDUA [id number] 21:43:00 Test Item Value Reference Range Comments UA RBC (test code=RBCU) RBC/HPF 0-3 UA WBC (test code=XWBCU) WBC/HPF 0-5 UA EPITHELIAL CELLS (test code=EPIU) EPI/HPF FEW UA BACTERIA (test code=XBACU) NONE SOURCE OF URINE: VOIDEDGLUCOSE BEDSIDE [id number] 21:08:00 Test Item Value Reference Range Comments GLUCOSE BEDSIDE TESTING (test code=GLUBED) 202 MG/DL 60-99 GLUCOSE BEDSIDE [id number] 16:25:00 Test Item Value Reference Range Comments GLUCOSE BEDSIDE TESTING (test code=GLUBED) 191 MG/DL 60-99 GLUCOSE BEDSIDE [id number] 07:50:00 Test Item Value Reference Range Comments GLUCOSE BEDSIDE TESTING (test code=GLUBED) 173 MG/DL 60-99 BASIC METABOLIC [id number] 05:13:00 Test Item Value Reference Range Comments SODIUM (test code=NA) 130 MMOL/L 137-145 POTASSIUM (test code=K) 3.7 MMOL/L 3.5-5.1 CHLORIDE (test code=CL) 90 MMOL/L 98-107 CARBON DIOXIDE (test code=CO2) 29 MMOL/L 22-30 ANION GAP (test code=GAP) 15 MMOL/L 14-24 GLUCOSE (test code=GLU) 179 MG/DL 74-106 BLOOD UREA NITROGEN (test 54 MG/DL 7-17 code=BUN) GLOMERULAR FILTRATION RATE 44 Reporting units: ml/min/1.73 (test code=GFR) m2 (Modified MDRD Formula)Reference Range: > or=60 ml/min/1.73 m2 CREATININE (test code=CREAT) 1.20 MG/DL 0.52-1.04 CALCIUM (test code=CA) 9.5 MG/DL 8.4-10.2 BASIC METABOLIC [id number] 05:08:00 Test Item Value Reference Range Comments SODIUM (test code=NA) 130 MMOL/L 137-145 POTASSIUM (test code=K) 3.7 MMOL/L 3.5-5.1 CHLORIDE (test code=CL) 90 MMOL/L 98-107 CARBON DIOXIDE (test code=CO2) MMOL/L 22-30 GLUCOSE (test code=GLU) MG/DL 74-106 BLOOD UREA NITROGEN (test code=BUN) MG/DL 7-17 GLOMERULAR FILTRATION RATE (test code=GFR) CREATININE (test code=CREAT) MG/DL 0.52-1.04 CALCIUM (test code=CA) MG/DL 8.7-9.7 CBC W/AUTO [id number] 04:54:00 Test Item Value Reference Range Comments WHITE BLOOD CELL (test code=WBC) 17.8 K/MM3 3.8-9.8 RED BLOOD CELL (test code=RBC) 4.72 M/MM3 3.58-4.97 HEMOGLOBIN (test code=HGB) 11.5 G/DL 11.2-14.9 HEMATOCRIT (test code=HCT) 37.7 % 33.2-43.5 MEAN CELL VOLUME (test code=MCV) 80 fL 80.7-99.1 MEAN CELL HGB (test code=MCH) 24.4 pg 27.0-34.1 MEAN CELL HGB CONCETRATION (test code=MCHC) 30.5 % 32.2-35.7 RED CELL DISTRIBUTION WIDTH (test code=RDW) 17.1 % 12.1-15.2 PLATELET COUNT (test code=PLT) 500 K/MM3 129-368 MEAN PLATELET VOLUME (test code=MPV) 9.4 fl 7.4-10.4 NEUTROPHIL % (test code=NT%) 74.8 % 43-75 IMMATURE GRANULOCYTE % (test code=IG%) 1.0 % 0.0-2.0 LYMPHOCYTE % (test code=LY%) 14.9 % 14-44 MONOCYTE % (test code=MO%) 7.8 % 4-13 EOSINOPHIL % (test code=EO%) 1.1 % 0-6 BASOPHIL % (test code=BA%) 0.4 % 0-2 NUCLEATED RBC % (test code=NRBC%) 0.0 % 0-1.0 NEUTROPHIL # (test code=NT#) 13.29 K/mm3 2.0-7.6 IMMATURE GRANULOCYTE # (test code=IG#) 0.18 x10 3/uL 0-0.03 LYMPHOCYTE # (test code=LY#) 2.65 K/mm3 1.0-3.8 MONOCYTE # (test code=MO#) 1.38 K/mm3 0.1-0.8 EOSINOPHIL # (test code=EO#) 0.19 K/mm3 0.0-0.2 BASOPHIL # (test code=BA#) 0.07 K/mm3 0.0-0.2 NUCLEATED RBC # (test code=NRBC#) 0.00 K/mm3 0.0-0.1 GLUCOSE BEDSIDE [id number] 19:57:00 Test Item Value Reference Range Comments GLUCOSE BEDSIDE TESTING (test code=GLUBED) 171 MG/DL 60-99 GLUCOSE BEDSIDE [id number] 16:05:00 Test Item Value Reference Range Comments GLUCOSE BEDSIDE TESTING (test code=GLUBED) 286 MG/DL 60-99 GLUCOSE BEDSIDE [id number] 12:28:00 Test Item Value Reference Range Comments GLUCOSE BEDSIDE TESTING (test code=GLUBED) 234 MG/DL 60-99 GLUCOSE BEDSIDE [id number] 08:29:00 Test Item Value Reference Range Comments GLUCOSE BEDSIDE TESTING (test code=GLUBED) 196 MG/DL 60-99 B-TYPE NATRIURETIC [id number] 04:56:00 Test Item Value Reference Range Comments B-TYPE NATRIURETIC PEPTIDE (test code=BNP) 371.0 PG/ML 0-100 COMPREHENSIVE METABOLIC [id number] 04:47:00 Test Item Value Reference Range Comments SODIUM (test code=NA) 133 MMOL/L 137-145 POTASSIUM (test code=K) 4.3 MMOL/L 3.5-5.1 CHLORIDE (test code=CL) 92 MMOL/L 98-107 CARBON DIOXIDE (test code=CO2) 33 MMOL/L 22-30 ANION GAP (test code=GAP) 12 MMOL/L 14-24 GLUCOSE (test code=GLU) 194 MG/DL 74-106 BLOOD UREA NITROGEN (test 39 MG/DL 7-17 code=BUN) GLOMERULAR FILTRATION RATE 54 Reporting units: ml/min/1.73 (test code=GFR) m2 (Modified MDRD Formula)Reference Range: > or=60 ml/min/1.73 m2 CREATININE (test code=CREAT) 1.00 MG/DL 0.52-1.04 TOTAL PROTEIN (test code=PROT) 6.9 G/DL 6.3-8.2 ALBUMIN (test code=ALB) 4.0 G/DL 3.5-5.0 CALCIUM (test code=CA) 10.1 MG/DL 8.4-10.2 BILIRUBIN TOTAL (test 0.5 MG/DL 0.2-1.3 code=BILT) SGOT/AST (test code=AST) 29 UNITS/L 14-36 SGPT/ALT (test code=ALT) 14 UNITS/L 9-52 ALKALINE PHOSPHATASE (test 81 UNITS/L 38-126 code=ALKP) [id number] 04:47:00 Test Item Value Reference Range Comments MAGNESIUM (test code=MAG) 1.9 MG/DL 1.6-2.3 COMPREHENSIVE METABOLIC [id number] 04:45:00 Test Item Value Reference Range Comments SODIUM (test code=NA) 133 MMOL/L 137-145 POTASSIUM (test code=K) 4.3 MMOL/L 3.5-5.1 CHLORIDE (test code=CL) 92 MMOL/L 98-107 CARBON DIOXIDE (test code=CO2) MMOL/L 22-30 GLUCOSE (test code=GLU) MG/DL 74-106 BLOOD UREA NITROGEN (test code=BUN) MG/DL 7-17 GLOMERULAR FILTRATION RATE (test code=GFR) CREATININE (test code=CREAT) MG/DL 0.52-1.04 TOTAL PROTEIN (test code=PROT) G/DL 6.3-8.2 ALBUMIN (test code=ALB) 4.0 G/DL 3.5-5.0 CALCIUM (test code=CA) MG/DL 8.7-9.7 BILIRUBIN TOTAL (test code=BILT) MG/DL 0.2-1.3 SGOT/AST (test code=AST) UNITS/L 15-37 SGPT/ALT (test code=ALT) UNITS/L 9-52 ALKALINE PHOSPHATASE (test code=ALKP) UNITS/L 38-126 [id number] 04:45:00 Test Item Value Reference Range Comments MAGNESIUM (test code=MAG) MG/DL 1.6-2.3 COMPREHENSIVE METABOLIC [id number] 04:44:00 Test Item Value Reference Range Comments SODIUM (test code=NA) MMOL/L 137-145 POTASSIUM (test code=K) MMOL/L 3.5-5.1 CHLORIDE (test code=CL) 92 MMOL/L 98-107 CARBON DIOXIDE (test code=CO2) MMOL/L 22-30 GLUCOSE (test code=GLU) MG/DL 74-106 BLOOD UREA NITROGEN (test code=BUN) MG/DL 7-17 GLOMERULAR FILTRATION RATE (test code=GFR) CREATININE (test code=CREAT) MG/DL 0.52-1.04 TOTAL PROTEIN (test code=PROT) G/DL 6.3-8.2 ALBUMIN (test code=ALB) 4.0 G/DL 3.5-5.0 CALCIUM (test code=CA) MG/DL 8.7-9.7 BILIRUBIN TOTAL (test code=BILT) MG/DL 0.2-1.3 SGOT/AST (test code=AST) UNITS/L 15-37 SGPT/ALT (test code=ALT) UNITS/L 9-52 ALKALINE PHOSPHATASE (test code=ALKP) UNITS/L 38-126 [id number] 04:44:00 Test Item Value Reference Range Comments MAGNESIUM (test code=MAG) MG/DL 1.6-2.3 CBC W/AUTO [id number] 04:25:00 Test Item Value Reference Range Comments WHITE BLOOD CELL (test code=WBC) 15.1 K/MM3 3.8-9.8 RED BLOOD CELL (test code=RBC) 5.37 M/MM3 3.58-4.97 HEMOGLOBIN (test code=HGB) 13.1 G/DL 11.2-14.9 HEMATOCRIT (test code=HCT) 42.9 % 33.2-43.5 MEAN CELL VOLUME (test code=MCV) 80 fL 80.7-99.1 MEAN CELL HGB (test code=MCH) 24.4 pg 27.0-34.1 MEAN CELL HGB CONCETRATION (test code=MCHC) 30.5 % 32.2-35.7 RED CELL DISTRIBUTION WIDTH (test code=RDW) 17.0 % 12.1-15.2 PLATELET COUNT (test code=PLT) 527 K/MM3 129-368 MEAN PLATELET VOLUME (test code=MPV) 9.4 fl 7.4-10.4 NEUTROPHIL % (test code=NT%) 90.4 % 43-75 IMMATURE GRANULOCYTE % (test code=IG%) 1.1 % 0.0-2.0 LYMPHOCYTE % (test code=LY%) 6.0 % 14-44 MONOCYTE % (test code=MO%) 1.9 % 4-13 EOSINOPHIL % (test code=EO%) 0.1 % 0-6 BASOPHIL % (test code=BA%) 0.5 % 0-2 NUCLEATED RBC % (test code=NRBC%) 0.0 % 0-1.0 NEUTROPHIL # (test code=NT#) 13.62 K/mm3 2.0-7.6 IMMATURE GRANULOCYTE # (test code=IG#) 0.16 x10 3/uL 0-0.03 LYMPHOCYTE # (test code=LY#) 0.91 K/mm3 1.0-3.8 MONOCYTE # (test code=MO#) 0.29 K/mm3 0.1-0.8 EOSINOPHIL # (test code=EO#) 0.01 K/mm3 0.0-0.2 BASOPHIL # (test code=BA#) 0.08 K/mm3 0.0-0.2 NUCLEATED RBC # (test code=NRBC#) 0.00 K/mm3 0.0-0.1 GLUCOSE BEDSIDE [id number] 20:14:00 Test Item Value Reference Range Comments GLUCOSE BEDSIDE TESTING (test code=GLUBED) 173 MG/DL 60-99 [id number] 18:39:00 Test Item Value Reference Range Comments TROPONIN-I (test code=TROPI) 0.041 NG/ML 0.012-0.033 B-TYPE NATRIURETIC [id number] 16:46:00 Test Item Value Reference Range Comments B-TYPE NATRIURETIC PEPTIDE (test code=BNP) 336.0 PG/ML 0-100 ADD ONSpecimen comments: Can add to blood in [id number] 16:38: 00 Test Item Value Reference Range Comments TROPONIN-I (test code=TROPI) 0.042 NG/ML 0.012-0.033 COMPREHENSIVE METABOLIC [id number] 13:48:00 Test Item Value Reference Range Comments SODIUM (test code=NA) 134 MMOL/L 137-145 POTASSIUM (test code=K) 4.0 MMOL/L 3.5-5.1 CHLORIDE (test code=CL) 93 MMOL/L 98-107 CARBON DIOXIDE (test code=CO2) 31 MMOL/L 22-30 ANION GAP (test code=GAP) 14 MMOL/L 14-24 GLUCOSE (test code=GLU) 151 MG/DL 74-106 BLOOD UREA NITROGEN (test 36 MG/DL 7-17 code=BUN) GLOMERULAR FILTRATION RATE > 60 Reporting units: ml/min/1.73 (test code=GFR) m2 (Modified MDRD Formula)Reference Range: > or=60 ml/min/1.73 m2 CREATININE (test code=CREAT) 0.90 MG/DL 0.52-1.04 TOTAL PROTEIN (test code=PROT) 6.8 G/DL 6.3-8.2 ALBUMIN (test code=ALB) 4.0 G/DL 3.5-5.0 CALCIUM (test code=CA) 10.3 MG/DL 8.4-10.2 BILIRUBIN TOTAL (test 0.6 MG/DL 0.2-1.3 code=BILT) SGOT/AST (test code=AST) 23 UNITS/L 14-36 SGPT/ALT (test code=ALT) 16 UNITS/L 9-52 ALKALINE PHOSPHATASE (test 79 UNITS/L 38-126 code=ALKP) [id number] 13:48:00 Test Item Value Reference Range Comments PHOSPHOROUS (test code=PHOS) 3.6 MG/DL 2.5-4.5 [id number] 13:48:00 Test Item Value Reference Range Comments MAGNESIUM (test code=MAG) 2.1 MG/DL 1.6-2.3 COMPREHENSIVE METABOLIC [id number] 13:39:00 Test Item Value Reference Range Comments SODIUM (test code=NA) 134 MMOL/L 137-145 POTASSIUM (test code=K) 4.0 MMOL/L 3.5-5.1 CHLORIDE (test code=CL) 93 MMOL/L 98-107 CARBON DIOXIDE (test code=CO2) MMOL/L 22-30 GLUCOSE (test code=GLU) MG/DL 74-106 BLOOD UREA NITROGEN (test MG/DL 7-17 code=BUN) GLOMERULAR FILTRATION RATE > 60 Reporting units: ml/min/1.73 (test code=GFR) m2 (Modified MDRD Formula)Reference Range: > or=60 ml/min/1.73 m2 CREATININE (test code=CREAT) 0.90 MG/DL 0.52-1.04 TOTAL PROTEIN (test code=PROT) G/DL 6.3-8.2 ALBUMIN (test code=ALB) 4.0 G/DL 3.5-5.0 CALCIUM (test code=CA) MG/DL 8.7-9.7 BILIRUBIN TOTAL (test 0.6 MG/DL 0.2-1.3 code=BILT) SGOT/AST (test code=AST) UNITS/L 15-37 SGPT/ALT (test code=ALT) UNITS/L 9-52 ALKALINE PHOSPHATASE (test UNITS/L 38-126 code=ALKP) [id number] 13:39:00 Test Item Value Reference Range Comments PHOSPHOROUS (test code=PHOS) MG/DL 2.5-4.5 [id number] 13:39:00 Test Item Value Reference Range Comments MAGNESIUM (test code=MAG) MG/DL 1.6-2.3 COMPREHENSIVE METABOLIC [id number] 13:37:00 Test Item Value Reference Range Comments SODIUM (test code=NA) 134 MMOL/L 137-145 POTASSIUM (test code=K) 4.0 MMOL/L 3.5-5.1 CHLORIDE (test code=CL) 93 MMOL/L 98-107 CARBON DIOXIDE (test code=CO2) MMOL/L 22-30 GLUCOSE (test code=GLU) MG/DL 74-106 BLOOD UREA NITROGEN (test code=BUN) MG/DL 7-17 GLOMERULAR FILTRATION RATE (test code=GFR) CREATININE (test code=CREAT) MG/DL 0.52-1.04 TOTAL PROTEIN (test code=PROT) G/DL 6.3-8.2 ALBUMIN (test code=ALB) 4.0 G/DL 3.5-5.0 CALCIUM (test code=CA) MG/DL 8.7-9.7 BILIRUBIN TOTAL (test code=BILT) MG/DL 0.2-1.3 SGOT/AST (test code=AST) UNITS/L 15-37 SGPT/ALT (test code=ALT) UNITS/L 9-52 ALKALINE PHOSPHATASE (test code=ALKP) UNITS/L 38-126 [id number] 13:37:00 Test Item Value Reference Range Comments PHOSPHOROUS (test code=PHOS) MG/DL 2.5-4.5 [id number] 13:37:00 Test Item Value Reference Range Comments MAGNESIUM (test code=MAG) MG/DL 1.6-2.3 - XR [id number] [id number] 13:36:00 Patient Name: BREA GILES Unit No: [id number] EXAMS: CPT CODE: [id number] XR CHEST 1V [id number] Chest Radiograph History: pain Comparison: July 02, 2019 Location: R16 A single frontal view of the chest is submitted. The heart appears unchanged in size. Pulmonary vasculature is unremarkable. The visualized lung ryan appear to be free of disease. The bones appear unchanged. IMPRESSION: There is no radiographic evidence of acute cardiopulmonary disease. at 0897 Reported and signed by: Niko Howell MD CC: ANATOLIY QUINTERO DO; Viviana Thompson MD Technologist: RT Syl(R) Transcrpt Date/Tm/Trnsp : 07/17/2019 (5688) t.SDR.PMT Orig Print D/T: S: 07/17/2019 ( 4582) [facility] NAME: BREA GILES [address] PHYS: [place] [address] : 1944 AGE: 73 SEX: F LOC: Z.ERS PHONE #: [phone] EXAM DATE: 07/17/2019 STATUS: PRE ER FAX #: [phone] RADIOLOGY NO: PAGE 1 Signed ReportPROTHROMBIN [id number] 13:35:00 Test Item Value Reference Range Comments PROTHROMBIN TIME PATIENT (test 10.9 SECONDS 9.6-11.6 code=PTP) INTERNATIONAL NORMAL RATIO 1.0 0.8-1.1 The INR is to be used only (test code=INR) for monitoring oral anticoagulanttherapy. INDICATION INR VALUE 1. Prophylaxis, deep venous thrombosis, including high risk surgery. 2.0 - 3.0 2. Prophylaxis, deep venous thrombosis, hip surgery, treatment for deep venous thrombosis or pulmonary prevention of systemic embolism in patients with valvular heart disease, atrial fibrillation, tissue heart valve, or acute myocardial infarction. 2.0 - 3.0 3. Mechanical prosthesis heart valves, recurrent systemic embolism. 3.0 - 4.5 PTT [id number] 13:35:00 Test Item Value Reference Range Comments PTT ACTIVATED (test code=APTT) 31.5 SECONDS 22.0-33.0 CBC W/AUTO [id number] 13:34:00 Test Item Value Reference Range Comments WHITE BLOOD CELL (test code=WBC) 15.1 K/MM3 3.8-9.8 RED BLOOD CELL (test code=RBC) 5.35 M/MM3 3.58-4.97 HEMOGLOBIN (test code=HGB) 12.7 G/DL 11.2-14.9 HEMATOCRIT (test code=HCT) 43.5 % 33.2-43.5 MEAN CELL VOLUME (test code=MCV) 81 fL 80.7-99.1 MEAN CELL HGB (test code=MCH) 23.7 pg 27.0-34.1 MEAN CELL HGB CONCETRATION (test code=MCHC) 29.2 % 32.2-35.7 RED CELL DISTRIBUTION WIDTH (test code=RDW) 16.8 % 12.1-15.2 PLATELET COUNT (test code=PLT) 564 K/MM3 129-368 MEAN PLATELET VOLUME (test code=MPV) 9.7 fl 7.4-10.4 NEUTROPHIL % (test code=NT%) 71.9 % 43-75 IMMATURE GRANULOCYTE % (test code=IG%) 1.2 % 0.0-2.0 LYMPHOCYTE % (test code=LY%) 16.6 % 14-44 MONOCYTE % (test code=MO%) 8.1 % 4-13 EOSINOPHIL % (test code=EO%) 1.5 % 0-6 BASOPHIL % (test code=BA%) 0.7 % 0-2 NUCLEATED RBC % (test code=NRBC%) 0.0 % 0-1.0 NEUTROPHIL # (test code=NT#) 10.89 K/mm3 2.0-7.6 IMMATURE GRANULOCYTE # (test code=IG#) 0.18 x10 3/uL 0-0.03 LYMPHOCYTE # (test code=LY#) 2.52 K/mm3 1.0-3.8 MONOCYTE # (test code=MO#) 1.23 K/mm3 0.1-0.8 EOSINOPHIL # (test code=EO#) 0.22 K/mm3 0.0-0.2 BASOPHIL # (test code=BA#) 0.10 K/mm3 0.0-0.2 NUCLEATED RBC # (test code=NRBC#) 0.00 K/mm3 0.0-0.1 TROPONIN I [id number] 13:16:00 Test Item Value Reference Range Comments TROPONIN I RAPID (test code=TROPIRAP) 0.04 NG/ML 0.00-0.05 GLUCOSE BEDSIDE [id number] 17:02:00 Test Item Value Reference Range Comments GLUCOSE BEDSIDE TESTING (test code=GLUBED) 232 MG/DL 60-99 BUN [id number] 16:53:00 Test Item Value Reference Range Comments BLOOD UREA NITROGEN (test 63 MG/DL 04-18 code=BUN) GLOMERULAR FILTRATION RATE 34 Reporting units: ml/min/1.73 (test code=GFR) m2 (Modified MDRD Formula)Reference Range: > or=60 ml/min/1.73 m2 CREATININE (test code=CREAT) 1.50 MG/DL 0.52-1.04 ENTER RACE; UGLUCOSE BEDSIDE [id number] 11:52:00 Test Item Value Reference Range Comments GLUCOSE BEDSIDE TESTING (test code=GLUBED) 149 MG/DL 60-99 GLUCOSE BEDSIDE [id number] 10:27:00 Test Item Value Reference Range Comments GLUCOSE BEDSIDE TESTING (test code=GLUBED) 145 MG/DL 60-99 GLUCOSE BEDSIDE [id number] 21:19:00 Test Item Value Reference Range Comments GLUCOSE BEDSIDE TESTING (test code=GLUBED) 162 MG/DL 60-99 GLUCOSE BEDSIDE [id number] 16:42:00 Test Item Value Reference Range Comments GLUCOSE BEDSIDE TESTING (test code=GLUBED) 228 MG/DL 60-99 GLUCOSE BEDSIDE [id number] 11:58:00 Test Item Value Reference Range Comments GLUCOSE BEDSIDE TESTING (test code=GLUBED) 228 MG/DL 60-99 GLUCOSE BEDSIDE [id number] 07:45:00 Test Item Value Reference Range Comments GLUCOSE BEDSIDE TESTING (test code=GLUBED) 129 MG/DL 60-99 GLUCOSE BEDSIDE [id number] 20:35:00 Test Item Value Reference Range Comments GLUCOSE BEDSIDE TESTING (test code=GLUBED) 223 MG/DL 60-99 GLUCOSE BEDSIDE [id number] 16:27:00 Test Item Value Reference Range Comments GLUCOSE BEDSIDE TESTING (test code=GLUBED) 222 MG/DL 60-99 GLUCOSE BEDSIDE [id number] 13:00:00 Test Item Value Reference Range Comments GLUCOSE BEDSIDE TESTING (test code=GLUBED) 212 MG/DL 60-99 GLUCOSE BEDSIDE [id number] 10:50:00 Test Item Value Reference Range Comments GLUCOSE BEDSIDE TESTING (test code=GLUBED) 131 MG/DL 60-99 GLUCOSE BEDSIDE [id number] 10:50:00 Test Item Value Reference Range Comments GLUCOSE BEDSIDE TESTING (test code=GLUBED) 177 MG/DL 60-99 GLUCOSE BEDSIDE [id number] 20:29:00 Test Item Value Reference Range Comments GLUCOSE BEDSIDE TESTING (test code=GLUBED) 247 MG/DL 60-99 GLUCOSE BEDSIDE [id number] 16:22:00 Test Item Value Reference Range Comments GLUCOSE BEDSIDE TESTING (test code=GLUBED) 182 MG/DL 60-99 GLUCOSE BEDSIDE [id number] 11:20:00 Test Item Value Reference Range Comments GLUCOSE BEDSIDE TESTING (test code=GLUBED) 176 MG/DL 60-99 GLUCOSE BEDSIDE [id number] 20:14:00 Test Item Value Reference Range Comments GLUCOSE BEDSIDE TESTING (test code=GLUBED) 187 MG/DL 60-99 GLUCOSE BEDSIDE [id number] 16:20:00 Test Item Value Reference Range Comments GLUCOSE BEDSIDE TESTING (test code=GLUBED) 200 MG/DL 60-99 Notified Nurse~ GLUCOSE BEDSIDE [id number] 12:15:00 Test Item Value Reference Range Comments GLUCOSE BEDSIDE TESTING (test code=GLUBED) 180 MG/DL 60-99 GLUCOSE BEDSIDE [id number] 10:59:00 Test Item Value Reference Range Comments GLUCOSE BEDSIDE TESTING (test code=GLUBED) 230 MG/DL 60-99 GLUCOSE BEDSIDE [id number] 10:58:00 Test Item Value Reference Range Comments GLUCOSE BEDSIDE TESTING (test code=GLUBED) 226 MG/DL 60-99 GLUCOSE BEDSIDE [id number] 07:20:00 Test Item Value Reference Range Comments GLUCOSE BEDSIDE TESTING (test code=GLUBED) 146 MG/DL 60-99 GLUCOSE BEDSIDE [id number] 20:40:00 Test Item Value Reference Range Comments GLUCOSE BEDSIDE TESTING (test code=GLUBED) 214 MG/DL 60-99 GLUCOSE BEDSIDE [id number] 17:09:00 Test Item Value Reference Range Comments GLUCOSE BEDSIDE TESTING (test code=GLUBED) 236 MG/DL 60-99 GLUCOSE BEDSIDE [id number] 12:08:00 Test Item Value Reference Range Comments GLUCOSE BEDSIDE TESTING (test code=GLUBED) 161 MG/DL 60-99 GLUCOSE BEDSIDE [id number] 09:16:00 Test Item Value Reference Range Comments GLUCOSE BEDSIDE TESTING (test code=GLUBED) 138 MG/DL 60-99 GLUCOSE BEDSIDE [id number] 17:05:00 Test Item Value Reference Range Comments GLUCOSE BEDSIDE TESTING (test code=GLUBED) 245 MG/DL 60-99 GLUCOSE BEDSIDE [id number] 12:32:00 Test Item Value Reference Range Comments GLUCOSE BEDSIDE TESTING (test code=GLUBED) 131 MG/DL 60-99 GLUCOSE BEDSIDE [id number] 07:29:00 Test Item Value Reference Range Comments GLUCOSE BEDSIDE TESTING (test code=GLUBED) 134 MG/DL 60-99 GLUCOSE BEDSIDE [id number] 02:24:00 Test Item Value Reference Range Comments GLUCOSE BEDSIDE TESTING (test code=GLUBED) 149 MG/DL 60-99 GLUCOSE BEDSIDE [id number] 16:14:00 Test Item Value Reference Range Comments GLUCOSE BEDSIDE TESTING (test code=GLUBED) 186 MG/DL 60-99 Notified Nurse~ GLUCOSE BEDSIDE [id number] 12:52:00 Test Item Value Reference Range Comments GLUCOSE BEDSIDE TESTING (test code=GLUBED) 160 MG/DL 60-99 GLUCOSE BEDSIDE [id number] 07:30:00 Test Item Value Reference Range Comments GLUCOSE BEDSIDE TESTING (test code=GLUBED) 142 MG/DL 60-99 COMPREHENSIVE METABOLIC [id number] 06:56:00 Test Item Value Reference Range Comments SODIUM (test code=NA) 136 MMOL/L 137-145 POTASSIUM (test code=K) 4.2 MMOL/L 3.5-5.1 CHLORIDE (test code=CL) 94 MMOL/L 98-107 CARBON DIOXIDE (test code=CO2) 33 MMOL/L 22-30 ANION GAP (test code=GAP) 13 MMOL/L 14-24 GLUCOSE (test code=GLU) 146 MG/DL 74-106 BLOOD UREA NITROGEN (test 26 MG/DL 7-17 code=BUN) GLOMERULAR FILTRATION RATE 54 Reporting units: ml/min/1.73 (test code=GFR) m2 (Modified MDRD Formula)Reference Range: > or=60 ml/min/1.73 m2 CREATININE (test code=CREAT) 1.00 MG/DL 0.52-1.04 TOTAL PROTEIN (test code=PROT) 6.7 G/DL 6.3-8.2 ALBUMIN (test code=ALB) 3.8 G/DL 3.5-5.0 CALCIUM (test code=CA) 10.2 MG/DL 8.4-10.2 BILIRUBIN TOTAL (test 0.5 MG/DL 0.2-1.3 code=BILT) SGOT/AST (test code=AST) 16 UNITS/L 14-36 SGPT/ALT (test code=ALT) 17 UNITS/L 9-52 ALKALINE PHOSPHATASE (test 89 UNITS/L 38-126 code=ALKP) [id number] 06:56:00 Test Item Value Reference Range Comments MAGNESIUM (test code=MAG) 1.9 MG/DL 1.6-2.3 COMPREHENSIVE METABOLIC [id number] 06:52:00 Test Item Value Reference Range Comments SODIUM (test code=NA) 136 MMOL/L 137-145 POTASSIUM (test code=K) 4.2 MMOL/L 3.5-5.1 CHLORIDE (test code=CL) 94 MMOL/L 98-107 CARBON DIOXIDE (test code=CO2) MMOL/L 22-30 GLUCOSE (test code=GLU) MG/DL 74-106 BLOOD UREA NITROGEN (test code=BUN) MG/DL 7-17 GLOMERULAR FILTRATION RATE (test code=GFR) CREATININE (test code=CREAT) MG/DL 0.52-1.04 TOTAL PROTEIN (test code=PROT) G/DL 6.3-8.2 ALBUMIN (test code=ALB) 3.8 G/DL 3.5-5.0 CALCIUM (test code=CA) MG/DL 8.7-9.7 BILIRUBIN TOTAL (test code=BILT) MG/DL 0.2-1.3 SGOT/AST (test code=AST) UNITS/L 15-37 SGPT/ALT (test code=ALT) UNITS/L 9-52 ALKALINE PHOSPHATASE (test code=ALKP) UNITS/L 38-126 [id number] 06:52:00 Test Item Value Reference Range Comments MAGNESIUM (test code=MAG) MG/DL 1.6-2.3 COMPREHENSIVE METABOLIC [id number] 06:51:00 Test Item Value Reference Range Comments SODIUM (test code=NA) MMOL/L 137-145 POTASSIUM (test code=K) MMOL/L 3.5-5.1 CHLORIDE (test code=CL) 94 MMOL/L 98-107 CARBON DIOXIDE (test code=CO2) MMOL/L 22-30 GLUCOSE (test code=GLU) MG/DL 74-106 BLOOD UREA NITROGEN (test code=BUN) MG/DL 7-17 GLOMERULAR FILTRATION RATE (test code=GFR) CREATININE (test code=CREAT) MG/DL 0.52-1.04 TOTAL PROTEIN (test code=PROT) G/DL 6.3-8.2 ALBUMIN (test code=ALB) 3.8 G/DL 3.5-5.0 CALCIUM (test code=CA) MG/DL 8.7-9.7 BILIRUBIN TOTAL (test code=BILT) MG/DL 0.2-1.3 SGOT/AST (test code=AST) UNITS/L 15-37 SGPT/ALT (test code=ALT) UNITS/L 9-52 ALKALINE PHOSPHATASE (test code=ALKP) UNITS/L 38-126 [id number] 06:51:00 Test Item Value Reference Range Comments MAGNESIUM (test code=MAG) MG/DL 1.6-2.3 CBC W/AUTO [id number] 06:25:00 Test Item Value Reference Range Comments WHITE BLOOD CELL (test code=WBC) 13.0 K/MM3 3.8-9.8 RED BLOOD CELL (test code=RBC) 4.54 M/MM3 3.58-4.97 HEMOGLOBIN (test code=HGB) 11.0 G/DL 11.2-14.9 HEMATOCRIT (test code=HCT) 36.9 % 33.2-43.5 MEAN CELL VOLUME (test code=MCV) 81 fL 80.7-99.1 MEAN CELL HGB (test code=MCH) 24.2 pg 27.0-34.1 MEAN CELL HGB CONCETRATION (test code=MCHC) 29.8 % 32.2-35.7 RED CELL DISTRIBUTION WIDTH (test code=RDW) 16.2 % 12.1-15.2 PLATELET COUNT (test code=PLT) 406 K/MM3 129-368 MEAN PLATELET VOLUME (test code=MPV) 10.6 fl 7.4-10.4 NEUTROPHIL % (test code=NT%) 70.3 % 43-75 IMMATURE GRANULOCYTE % (test code=IG%) 0.8 % 0.0-2.0 LYMPHOCYTE % (test code=LY%) 17.4 % 14-44 MONOCYTE % (test code=MO%) 8.1 % 4-13 EOSINOPHIL % (test code=EO%) 2.7 % 0-6 BASOPHIL % (test code=BA%) 0.7 % 0-2 NUCLEATED RBC % (test code=NRBC%) 0.0 % 0-1.0 NEUTROPHIL # (test code=NT#) 9.17 K/mm3 2.0-7.6 IMMATURE GRANULOCYTE # (test code=IG#) 0.10 x10 3/uL 0-0.03 LYMPHOCYTE # (test code=LY#) 2.27 K/mm3 1.0-3.8 MONOCYTE # (test code=MO#) 1.05 K/mm3 0.1-0.8 EOSINOPHIL # (test code=EO#) 0.35 K/mm3 0.0-0.2 BASOPHIL # (test code=BA#) 0.09 K/mm3 0.0-0.2 NUCLEATED RBC # (test code=NRBC#) 0.00 K/mm3 0.0-0.1 GLUCOSE BEDSIDE [id number] 19:59:00 Test Item Value Reference Range Comments GLUCOSE BEDSIDE TESTING (test code=GLUBED) 184 MG/DL 60-99 Notified Nurse~ GLUCOSE BEDSIDE [id number] 16:28:00 Test Item Value Reference Range Comments GLUCOSE BEDSIDE TESTING (test code=GLUBED) 245 MG/DL 60-99 Notified Nurse~ GLUCOSE BEDSIDE [id number] 13:02:00 Test Item Value Reference Range Comments GLUCOSE BEDSIDE TESTING (test code=GLUBED) 204 MG/DL 60-99 GLUCOSE BEDSIDE [id number] 07:00:00 Test Item Value Reference Range Comments GLUCOSE BEDSIDE TESTING (test code=GLUBED) 151 MG/DL 60-99 GLUCOSE BEDSIDE [id number] 06:33:00 Test Item Value Reference Range Comments GLUCOSE BEDSIDE TESTING (test code=GLUBED) 236 MG/DL 60-99 Notified Nurse~ GLUCOSE BEDSIDE [id number] 12:07:00 Test Item Value Reference Range Comments GLUCOSE BEDSIDE TESTING (test code=GLUBED) 167 MG/DL 60-99 GLUCOSE BEDSIDE [id number] 08:20:00 Test Item Value Reference Range Comments GLUCOSE BEDSIDE TESTING (test code=GLUBED) 140 MG/DL 60-99 BASIC METABOLIC [id number] 06:11:00 Test Item Value Reference Range Comments SODIUM (test code=NA) 134 MMOL/L 137-145 POTASSIUM (test code=K) 4.0 MMOL/L 3.5-5.1 CHLORIDE (test code=CL) 99 MMOL/L 98-107 CARBON DIOXIDE (test code=CO2) 28 MMOL/L 22-30 ANION GAP (test code=GAP) 11 MMOL/L 14-24 GLUCOSE (test code=GLU) MG/DL 74-106 BLOOD UREA NITROGEN (test 18 MG/DL 7-17 code=BUN) GLOMERULAR FILTRATION RATE > 60 Reporting units: ml/min/1.73 (test code=GFR) m2 (Modified MDRD Formula)Reference Range: > or=60 ml/min/1.73 m2 CREATININE (test code=CREAT) 0.80 MG/DL 0.52-1.04 CALCIUM (test code=CA) MG/DL 8.7-9.7 BASIC METABOLIC [id number] 06:11:00 Test Item Value Reference Range Comments SODIUM (test code=NA) 134 MMOL/L 137-145 POTASSIUM (test code=K) 4.0 MMOL/L 3.5-5.1 CHLORIDE (test code=CL) 99 MMOL/L 98-107 CARBON DIOXIDE (test code=CO2) 28 MMOL/L 22-30 ANION GAP (test code=GAP) 11 MMOL/L 14-24 GLUCOSE (test code=GLU) 166 MG/DL 74-106 BLOOD UREA NITROGEN (test 18 MG/DL 7-17 code=BUN) GLOMERULAR FILTRATION RATE > 60 Reporting units: ml/min/1.73 (test code=GFR) m2 (Modified MDRD Formula)Reference Range: > or=60 ml/min/1.73 m2 CREATININE (test code=CREAT) 0.80 MG/DL 0.52-1.04 CALCIUM (test code=CA) 9.5 MG/DL 8.4-10.2 BASIC METABOLIC [id number] 06:08:00 Test Item Value Reference Range Comments SODIUM (test code=NA) 134 MMOL/L 137-145 POTASSIUM (test code=K) 4.0 MMOL/L 3.5-5.1 CHLORIDE (test code=CL) 99 MMOL/L 98-107 CARBON DIOXIDE (test code=CO2) MMOL/L 22-30 GLUCOSE (test code=GLU) MG/DL 74-106 BLOOD UREA NITROGEN (test code=BUN) MG/DL 7-17 GLOMERULAR FILTRATION RATE (test code=GFR) CREATININE (test code=CREAT) MG/DL 0.52-1.04 CALCIUM (test code=CA) MG/DL 8.7-9.7 GLUCOSE BEDSIDE [id number] 20:04:00 Test Item Value Reference Range Comments GLUCOSE BEDSIDE TESTING (test code=GLUBED) 226 MG/DL 60-99 GLUCOSE BEDSIDE [id number] 16:25:00 Test Item Value Reference Range Comments GLUCOSE BEDSIDE TESTING (test code=GLUBED) 270 MG/DL 60-99 GLUCOSE BEDSIDE [id number] 13:02:00 Test Item Value Reference Range Comments GLUCOSE BEDSIDE TESTING (test code=GLUBED) 137 MG/DL 60-99 GLUCOSE BEDSIDE [id number] 12:09:00 Test Item Value Reference Range Comments GLUCOSE BEDSIDE TESTING (test code=GLUBED) 220 MG/DL 60-99 - CTA CHEST FOR [id number] 10:59:00 Patient Name: BREA GILES Unit No: [id number] EXAMS: CPT CODE: [id number] [place] [address] CTA Chest with contrast Location: B2 Clinical indication: 73-year-old with PE Comparison: None Technique: Computed axial images were obtained from the thoracic inlet through the diaphragms along with the IV administrationof 100 mL Isovue- 370. 3D/MIP reconstructions of the central pulmonary arteries were created. Up to date CT equipment and radiation dose technique were utilized. Findings: There is adequate opacification of the pulmonary arteries. No pulmonary artery embolism is not identified. The heart is enlarged. Thoracic aorta has normal caliber. No evidence of right heart strain by CT criteria. Thyroid is asymmetric, with the right being larger than the left. This may be the result of a right nodule, not well characterized due to artifact from left side ICD generator. No pneumothorax. There is some groundglass opacification within the mid and upper lungs, nonspecific. There is some mild streaky opacification within the lung bases, likely atelectasis. Small effusions are present, right greater than left. Reflux of contrast from the right atrium into the hepatic veins is suggestive of right heart dysfunction. The gallbladder has been removed. No acute osseous abnormal normality of the chest. Impression: 1. No central pulmonaryartery embolism. 2. Nonspecific mild groundglass opacities within the mid and upperlungs. This may be result of edema or an atypical infectious process. 3. Minimal pleural fluid, right greater than left. * * at 1059 Reported and signed by: Alf Schwarz M.D. CC: Nick Cabrera; Dexter Flores MD; Viviana Thompson MD Technologist: Ian Aguilar, RT(R)(CT)(MRI); [facility] CTDI: DLP: Trnscrpt : 07/03/2019 (1059) t.SDR.RB24 [facility] NAME: TAVIA GILESJEFF [place]led[place] [address] PHYS: [email or web address] - [place] [address] : 1945 AGE: 73 SEX: F LOC: Z.365 A PHONE #: [phone] EXAM DATE : 07/03/2019 STATUS: ADM IN FAX #: [phone] RAD #: D/C DT PAGE 1 Signed Report Patient Name: BREA GILES Venkat Unit No: [id number] EXAMS: CPT CODE: [id number] [place] [address] < Continued> Orig Print D/T: S: 07/03/2019 (1102) [facility] NAME: BREA GILES [address] PHYS: [email or web address] - [place] [address] : 1945 AGE: 73 SEX: F LOC: Z.365 A PHONE #:[phone] EXAM DATE: 07/03/2019 STATUS: ADM IN FAX #: [phone] RAD #: D/C DT PAGE 2 Signed ReportBASIC METABOLIC [id number] 06:20:00 Test Item Value Reference Range Comments SODIUM (test code=NA) 133 MMOL/L 137-145 POTASSIUM (test code=K) 4.2 MMOL/L 3.5-5.1 CHLORIDE (test code=CL) 97 MMOL/L 98-107 CARBON DIOXIDE (test code=CO2) 28 MMOL/L 22-30 GLUCOSE (test code=GLU) 131 MG/DL 74-106 BLOOD UREA NITROGEN (test 15 MG/DL 7-17 code=BUN) GLOMERULAR FILTRATION RATE > 60 Reporting units: ml/min/1.73 (test code=GFR) m2 (Modified MDRD Formula)Reference Range: > or=60 ml/min/1.73 m2 CREATININE (test code=CREAT) 0.70 MG/DL 0.52-1.04 CALCIUM (test code=CA) 9.6 MG/DL 8.4-10.2 CBC W/AUTO [id number] 05:42:00 Test Item Value Reference Range Comments WHITE BLOOD CELL (test code=WBC) 10.6 K/MM3 3.8-9.8 RED BLOOD CELL (test code=RBC) 4.58 M/MM3 3.58-4.97 HEMOGLOBIN (test code=HGB) 10.9 G/DL 11.2-14.9 HEMATOCRIT (test code=HCT) 38.8 % 33.2-43.5 MEAN CELL VOLUME (test code=MCV) 85 fL 80.7-99.1 MEAN CELL HGB (test code=MCH) 23.8 pg 27.0-34.1 MEAN CELL HGB CONCETRATION (test code=MCHC) 28.1 % 32.2-35.7 RED CELL DISTRIBUTION WIDTH (test code=RDW) 16.2 % 12.1-15.2 PLATELET COUNT (test code=PLT) 346 K/MM3 129-368 MEAN PLATELET VOLUME (test code=MPV) 10.4 fl 7.4-10.4 NEUTROPHIL % (test code=NT%) 74.9 % 43-75 IMMATURE GRANULOCYTE % (test code=IG%) 0.8 % 0.0-2.0 LYMPHOCYTE % (test code=LY%) 11.8 % 14-44 MONOCYTE % (test code=MO%) 9.0 % 4-13 EOSINOPHIL % (test code=EO%) 2.8 % 0-6 BASOPHIL % (test code=BA%) 0.7 % 0-2 NUCLEATED RBC % (test code=NRBC%) 0.0 % 0-1.0 NEUTROPHIL # (test code=NT#) 7.91 K/mm3 2.0-7.6 IMMATURE GRANULOCYTE # (test code=IG#) 0.08 x10 3/uL 0-0.03 LYMPHOCYTE # (test code=LY#) 1.24 K/mm3 1.0-3.8 MONOCYTE # (test code=MO#) 0.95 K/mm3 0.1-0.8 EOSINOPHIL # (test code=EO#) 0.30 K/mm3 0.0-0.2 BASOPHIL # (test code=BA#) 0.07 K/mm3 0.0-0.2 NUCLEATED RBC # (test code=NRBC#) 0.00 K/mm3 0.0-0.1 DIFFERENTIAL [id number] 05:42:00 Test Item Value Reference Range Comments RBC MORPHOLOGY REQUIRED (test code=RBCM) PLATELET ESTIMATE (test code=PLTEST) ADEQUATE PLATELET MORPHOLOGY (test code=PLTMORPH) NORMAL CBC W/AUTO [id number] 05:42:00 Test Item Value Reference Range Comments WHITE BLOOD CELL (test code=WBC) 10.6 K/MM3 3.8-9.8 RED BLOOD CELL (test code=RBC) 4.58 M/MM3 3.58-4.97 HEMOGLOBIN (test code=HGB) 10.9 G/DL 11.2-14.9 HEMATOCRIT (test code=HCT) 38.8 % 33.2-43.5 MEAN CELL VOLUME (test code=MCV) 85 fL 80.7-99.1 MEAN CELL HGB (test code=MCH) 23.8 pg 27.0-34.1 MEAN CELL HGB CONCETRATION (test code=MCHC) 28.1 % 32.2-35.7 RED CELL DISTRIBUTION WIDTH (test code=RDW) 16.2 % 12.1-15.2 PLATELET COUNT (test code=PLT) 346 K/MM3 129-368 MEAN PLATELET VOLUME (test code=MPV) 10.4 fl 7.4-10.4 NEUTROPHIL % (test code=NT%) 74.9 % 43-75 IMMATURE GRANULOCYTE % (test code=IG%) 0.8 % 0.0-2.0 LYMPHOCYTE % (test code=LY%) 11.8 % 14-44 MONOCYTE % (test code=MO%) 9.0 % 4-13 EOSINOPHIL % (test code=EO%) 2.8 % 0-6 BASOPHIL % (test code=BA%) 0.7 % 0-2 NUCLEATED RBC % (test code=NRBC%) 0.0 % 0-1.0 NEUTROPHIL # (test code=NT#) 7.91 K/mm3 2.0-7.6 IMMATURE GRANULOCYTE # (test code=IG#) 0.08 x10 3/uL 0-0.03 LYMPHOCYTE # (test code=LY#) 1.24 K/mm3 1.0-3.8 MONOCYTE # (test code=MO#) 0.95 K/mm3 0.1-0.8 EOSINOPHIL # (test code=EO#) 0.30 K/mm3 0.0-0.2 BASOPHIL # (test code=BA#) 0.07 K/mm3 0.0-0.2 NUCLEATED RBC # (test code=NRBC#) 0.00 K/mm3 0.0-0.1 DIFFERENTIAL [id number] 05:42:00 Test Item Value Reference Range Comments RBC MORPHOLOGY REQUIRED (test code=RBCM) PLATELET ESTIMATE (test code=PLTEST) ADEQUATE PLATELET MORPHOLOGY (test code=PLTMORPH) NORMAL GLUCOSE BEDSIDE [id number] 20:44:00 Test Item Value Reference Range Comments GLUCOSE BEDSIDE TESTING (test code=GLUBED) 191 MG/DL 60-99 GLUCOSE BEDSIDE [id number] 19:09:00 Test Item Value Reference Range Comments GLUCOSE BEDSIDE TESTING (test code=GLUBED) 132 MG/DL 60-99 - XR CHEST [id number] 18:49:00 Patient Name: BREA GILES Unit No: [id number] EXAMS: CPT CODE: [id number] XR CHEST 1V 21601 LOCATION CODE: H 31 CHEST AP HISTORY: Follow-up status post ICD placement COMPARISON: Chest radiograph from 2018 FINDINGS: Dual-lead AICD has been placed with leads in the right atrium and right ventricle. Cardiomegaly is redemonstrated. Moderate central vascular congestion appears stable to slightly improved. No evidence of pleural effusion or pneumothorax. The device superimposes the left mid lung. IMPRESSION: 1. Status post dual lead AICD without evidence of acute complications. 2. Moderate cardiomegaly redemonstrated. 3. Moderate central pulmonary vascular congestion appearing stable to slightly improved at 1849 Reported and signed by: Guerline Hamlin MD CC: Nick Cabrera; Alexandr Hawkins; Viviana Thompson MD Technologist: Pavithra Crane RT(R) Transcrpt Date/Tm/Trnsp: 07/02/2019 (184) [email or web address] Print D/T: S: 2018 (185) [facility] NAME: BREA GILES [id number] [place] PHYS: [place] [address] : 1945 AGE: 73 SEX: F LOC: [id number] PHONE #: [phone] EXAM DATE: 07/02/2019 STATUS: ADM IN FAX #: [phone] RADIOLOGY NO: PAGE 1 Signed [id number] 18:23:00 Test Item Value Reference Range Comments ACT-ISTAT (test code=ACTI) 103 SEC 74-137 GLUCOSE BEDSIDE [id number] 07:48:00 Test Item Value Reference Range Comments GLUCOSE BEDSIDE TESTING (test code=GLUBED) 160 MG/DL 60-99 GLUCOSE BEDSIDE [id number] 07:16:00 Test Item Value Reference Range Comments GLUCOSE BEDSIDE TESTING (test code=GLUBED) 134 MG/DL 60-99 GLUCOSE BEDSIDE [id number] 20:51:00 Test Item Value Reference Range Comments GLUCOSE BEDSIDE TESTING (test code=GLUBED) 142 MG/DL 60-99 GLUCOSE BEDSIDE [id number] 16:16:00 Test Item Value Reference Range Comments GLUCOSE BEDSIDE TESTING (test code=GLUBED) 156 MG/DL 60-99 GLUCOSE BEDSIDE [id number] 16:16:00 Test Item Value Reference Range Comments GLUCOSE BEDSIDE TESTING (test code=GLUBED) 184 MG/DL 60-99 BASIC METABOLIC [id number] 13:13:00 Test Item Value Reference Range Comments SODIUM (test code=NA) 137 MMOL/L 137-145 POTASSIUM (test code=K) 4.3 MMOL/L 3.5-5.1 CHLORIDE (test code=CL) 102 MMOL/L 98-107 CARBON DIOXIDE (test code=CO2) 30 MMOL/L 22-30 ANION GAP (test code=GAP) 9 MMOL/L 14-24 GLUCOSE (test code=GLU) 172 MG/DL 74-106 BLOOD UREA NITROGEN (test 19 MG/DL 7-17 code=BUN) GLOMERULAR FILTRATION RATE > 60 Reporting units: ml/min/1.73 (test code=GFR) m2 (Modified MDRD Formula)Reference Range: > or=60 ml/min/1.73 m2 CREATININE (test code=CREAT) 0.70 MG/DL 0.52-1.04 CALCIUM (test code=CA) 9.3 MG/DL 8.4-10.2 BASIC METABOLIC [id number] 13:02:00 Test Item Value Reference Range Comments SODIUM (test code=NA) 137 MMOL/L 137-145 POTASSIUM (test code=K) 4.3 MMOL/L 3.5-5.1 CHLORIDE (test code=CL) 102 MMOL/L 98-107 CARBON DIOXIDE (test code=CO2) MMOL/L 22-30 GLUCOSE (test code=GLU) MG/DL 74-106 BLOOD UREA NITROGEN (test MG/DL 7-17 code=BUN) GLOMERULAR FILTRATION RATE > 60 Reporting units: ml/min/1.73 (test code=GFR) m2 (Modified MDRD Formula)Reference Range: > or=60 ml/min/1.73 m2 CREATININE (test code=CREAT) 0.70 MG/DL 0.52-1.04 CALCIUM (test code=CA) MG/DL 8.7-9.7 BASIC METABOLIC [id number] 13:00:00 Test Item Value Reference Range Comments SODIUM (test code=NA) 137 MMOL/L 137-145 POTASSIUM (test code=K) 4.3 MMOL/L 3.5-5.1 CHLORIDE (test code=CL) 102 MMOL/L 98-107 CARBON DIOXIDE (test code=CO2) MMOL/L 22-30 GLUCOSE (test code=GLU) MG/DL 74-106 BLOOD UREA NITROGEN (test code=BUN) MG/DL 7-17 GLOMERULAR FILTRATION RATE (test code=GFR) CREATININE (test code=CREAT) MG/DL 0.52-1.04 CALCIUM (test code=CA) MG/DL 8.7-9.7 BASIC METABOLIC [id number] 12:59:00 Test Item Value Reference Range Comments SODIUM (test code=NA) 137 MMOL/L 137-145 POTASSIUM (test code=K) MMOL/L 3.5-5.1 CHLORIDE (test code=CL) 102 MMOL/L 98-107 CARBON DIOXIDE (test code=CO2) MMOL/L 22-30 GLUCOSE (test code=GLU) MG/DL 74-106 BLOOD UREA NITROGEN (test code=BUN) MG/DL 7-17 GLOMERULAR FILTRATION RATE (test code=GFR) CREATININE (test code=CREAT) MG/DL 0.52-1.04 CALCIUM (test code=CA) MG/DL 8.7-9.7 GLUCOSE BEDSIDE [id number] 06:32:00 Test Item Value Reference Range Comments GLUCOSE BEDSIDE TESTING (test code=GLUBED) 144 MG/DL 60-99 GLUCOSE BEDSIDE [id number] 22:00:00 Test Item Value Reference Range Comments GLUCOSE BEDSIDE TESTING (test code=GLUBED) 154 MG/DL 60-99 GLUCOSE BEDSIDE [id number] 16:57:00 Test Item Value Reference Range Comments GLUCOSE BEDSIDE TESTING (test code=GLUBED) 124 MG/DL 60-99 GLUCOSE BEDSIDE [id number] 16:57:00 Test Item Value Reference Range Comments GLUCOSE BEDSIDE TESTING (test code=GLUBED) 189 MG/DL 60-99 GLUCOSE BEDSIDE [id number] 06:59:00 Test Item Value Reference Range Comments GLUCOSE BEDSIDE TESTING (test code=GLUBED) 119 MG/DL 60-99 GLUCOSE BEDSIDE [id number] 21:39:00 Test Item Value Reference Range Comments GLUCOSE BEDSIDE TESTING (test code=GLUBED) 172 MG/DL 60-99 GLUCOSE BEDSIDE [id number] 12:36:00 Test Item Value Reference Range Comments GLUCOSE BEDSIDE TESTING (test code=GLUBED) 155 MG/DL 60-99 - XR CHEST [id number] 09:12:00 Patient Name: BREA GILES Unit No: [id number] EXAMS: CPT CODE: [id number] XR CHEST 1V [id number] EXAM: Portable chest one view. Location code:J9 HISTORY: CHF COMPARISON: 06/25/2019 Findings: The cardiac silhouette is enlarged and stable in size. Stable prominent interstitial lung markings. No large pleuraleffusion or pneumothorax. The bones are intact. IMPRESSION: Stable findings of CHF. at 0912 Reported and signed by: Gil Poep M.D. CC: Nick Cabrera; Alexandr Hawkins; Viviana Thompson MD Technologist: RT Mark (R) Transcrpt Date/Tm/Trnsp: 06/29 (0912) [id number] Orig Print D/T: S: 06/29/2019 (15) [facility] NAME: BREA GILES [id number] PHYS: [place] [address] : 1945 AGE: 73 SEX: F LOC: [id number] PHONE #: [phone] EXAM DATE: 06/29/2019 STATUS: ADM IN FAX #: [phone] RADIOLOGY NO: PAGE 1 Signed ReportBASIC METABOLIC [id number] 07:40:00 Test Item Value Reference Range Comments SODIUM (test code=NA) 136 MMOL/L 137-145 POTASSIUM (test code=K) 3.4 MMOL/L 3.5-5.1 CHLORIDE (test code=CL) 99 MMOL/L 98-107 CARBON DIOXIDE (test code=CO2) 32 MMOL/L 22-30 ANION GAP (test code=GAP) 8 MMOL/L 14-24 GLUCOSE (test code=GLU) 163 MG/DL 74-106 BLOOD UREA NITROGEN (test 23 MG/DL 7-17 code=BUN) GLOMERULAR FILTRATION RATE > 60 Reporting units: ml/min/1.73 (test code=GFR) m2 (Modified MDRD Formula)Reference Range: > or=60 ml/min/1.73 m2 CREATININE (test code=CREAT) 0.80 MG/DL 0.52-1.04 CALCIUM (test code=CA) 8.8 MG/DL 8.4-10.2 BASIC METABOLIC [id number] 07:27:00 Test Item Value Reference Range Comments SODIUM (test code=NA) 136 MMOL/L 137-145 POTASSIUM (test code=K) 3.4 MMOL/L 3.5-5.1 CHLORIDE (test code=CL) 99 MMOL/L 98-107 CARBON DIOXIDE (test code=CO2) MMOL/L 22-30 GLUCOSE (test code=GLU) MG/DL 74-106 BLOOD UREA NITROGEN (test code=BUN) MG/DL 7-17 GLOMERULAR FILTRATION RATE (test code=GFR) CREATININE (test code=CREAT) MG/DL 0.52-1.04 CALCIUM (test code=CA) MG/DL 8.7-9.7 CBC W/AUTO [id number] 07:12:00 Test Item Value Reference Range Comments WHITE BLOOD CELL (test code=WBC) 10.8 K/MM3 3.8-9.8 RED BLOOD CELL (test code=RBC) 4.46 M/MM3 3.58-4.97 HEMOGLOBIN (test code=HGB) 10.9 G/DL 11.2-14.9 HEMATOCRIT (test code=HCT) 38.0 % 33.2-43.5 MEAN CELL VOLUME (test code=MCV) 85 fL 80.7-99.1 MEAN CELL HGB (test code=MCH) 24.4 pg 27.0-34.1 MEAN CELL HGB CONCETRATION (test code=MCHC) 28.7 % 32.2-35.7 RED CELL DISTRIBUTION WIDTH (test code=RDW) 15.9 % 12.1-15.2 PLATELET COUNT (test code=PLT) 383 K/MM3 129-368 MEAN PLATELET VOLUME (test code=MPV) 10.2 fl 7.4-10.4 NEUTROPHIL % (test code=NT%) 75.5 % 43-75 IMMATURE GRANULOCYTE % (test code=IG%) 0.9 % 0.0-2.0 LYMPHOCYTE % (test code=LY%) 13.2 % 14-44 MONOCYTE % (test code=MO%) 7.8 % 4-13 EOSINOPHIL % (test code=EO%) 2.1 % 0-6 BASOPHIL % (test code=BA%) 0.5 % 0-2 NUCLEATED RBC % (test code=NRBC%) 0.0 % 0-1.0 NEUTROPHIL # (test code=NT#) 8.11 K/mm3 2.0-7.6 IMMATURE GRANULOCYTE # (test code=IG#) 0.10 x10 3/uL 0-0.03 LYMPHOCYTE # (test code=LY#) 1.42 K/mm3 1.0-3.8 MONOCYTE # (test code=MO#) 0.84 K/mm3 0.1-0.8 EOSINOPHIL # (test code=EO#) 0.23 K/mm3 0.0-0.2 BASOPHIL # (test code=BA#) 0.05 K/mm3 0.0-0.2 NUCLEATED RBC # (test code=NRBC#) 0.00 K/mm3 0.0-0.1 DIFFERENTIAL [id number] 07:12:00 Test Item Value Reference Range Comments RBC MORPHOLOGY REQUIRED (test code=RBCM) PLATELET ESTIMATE (test code=PLTEST) ADEQUATE PLATELET MORPHOLOGY (test code=PLTMORPH) NORMAL CBC W/AUTO [id number] 07:12:00 Test Item Value Reference Range Comments WHITE BLOOD CELL (test code=WBC) 10.8 K/MM3 3.8-9.8 RED BLOOD CELL (test code=RBC) 4.46 M/MM3 3.58-4.97 HEMOGLOBIN (test code=HGB) 10.9 G/DL 11.2-14.9 HEMATOCRIT (test code=HCT) 38.0 % 33.2-43.5 MEAN CELL VOLUME (test code=MCV) 85 fL 80.7-99.1 MEAN CELL HGB (test code=MCH) 24.4 pg 27.0-34.1 MEAN CELL HGB CONCETRATION (test code=MCHC) 28.7 % 32.2-35.7 RED CELL DISTRIBUTION WIDTH (test code=RDW) 15.9 % 12.1-15.2 PLATELET COUNT (test code=PLT) 383 K/MM3 129-368 MEAN PLATELET VOLUME (test code=MPV) 10.2 fl 7.4-10.4 NEUTROPHIL % (test code=NT%) 75.5 % 43-75 IMMATURE GRANULOCYTE % (test code=IG%) 0.9 % 0.0-2.0 LYMPHOCYTE % (test code=LY%) 13.2 % 14-44 MONOCYTE % (test code=MO%) 7.8 % 4-13 EOSINOPHIL % (test code=EO%) 2.1 % 0-6 BASOPHIL % (test code=BA%) 0.5 % 0-2 NUCLEATED RBC % (test code=NRBC%) 0.0 % 0-1.0 NEUTROPHIL # (test code=NT#) 8.11 K/mm3 2.0-7.6 IMMATURE GRANULOCYTE # (test code=IG#) 0.10 x10 3/uL 0-0.03 LYMPHOCYTE # (test code=LY#) 1.42 K/mm3 1.0-3.8 MONOCYTE # (test code=MO#) 0.84 K/mm3 0.1-0.8 EOSINOPHIL # (test code=EO#) 0.23 K/mm3 0.0-0.2 BASOPHIL # (test code=BA#) 0.05 K/mm3 0.0-0.2 NUCLEATED RBC # (test code=NRBC#) 0.00 K/mm3 0.0-0.1 DIFFERENTIAL [id number] 07:12:00 Test Item Value Reference Range Comments RBC MORPHOLOGY REQUIRED (test code=RBCM) PLATELET ESTIMATE (test code=PLTEST) ADEQUATE PLATELET MORPHOLOGY (test code=PLTMORPH) NORMAL GLUCOSE BEDSIDE [id number] 06:19:00 Test Item Value Reference Range Comments GLUCOSE BEDSIDE TESTING (test code=GLUBED) 129 MG/DL 60-99 GLUCOSE BEDSIDE [id number] 20:30:00 Test Item Value Reference Range Comments GLUCOSE BEDSIDE TESTING (test code=GLUBED) 130 MG/DL 60-99 GLUCOSE BEDSIDE [id number] 18:01:00 Test Item Value Reference Range Comments GLUCOSE BEDSIDE TESTING (test code=GLUBED) 150 MG/DL 60-99 GLUCOSE BEDSIDE [id number] 13:32:00 Test Item Value Reference Range Comments GLUCOSE BEDSIDE TESTING (test code=GLUBED) 147 MG/DL 60-99 GLUCOSE BEDSIDE [id number] 07:06:00 Test Item Value Reference Range Comments GLUCOSE BEDSIDE TESTING (test code=GLUBED) 154 MG/DL 60-99 GLUCOSE BEDSIDE [id number] 20:58:00 Test Item Value Reference Range Comments GLUCOSE BEDSIDE TESTING (test code=GLUBED) 198 MG/DL 60-99 GLUCOSE BEDSIDE [id number] 16:23:00 Test Item Value Reference Range Comments GLUCOSE BEDSIDE TESTING (test code=GLUBED) 131 MG/DL 60-99 GLUCOSE BEDSIDE [id number] 14:29:00 Test Item Value Reference Range Comments GLUCOSE BEDSIDE TESTING (test code=GLUBED) 164 MG/DL 60-99 GLUCOSE BEDSIDE [id number] 14:29:00 Test Item Value Reference Range Comments GLUCOSE BEDSIDE TESTING (test code=GLUBED) 152 MG/DL 60-99 GLUCOSE BEDSIDE [id number] 14:29:00 Test Item Value Reference Range Comments GLUCOSE BEDSIDE TESTING (test code=GLUBED) 209 MG/DL 60-99 GLUCOSE BEDSIDE [id number] 14:29:00 Test Item Value Reference Range Comments GLUCOSE BEDSIDE TESTING (test code=GLUBED) 161 MG/DL 60-99 GLUCOSE BEDSIDE [id number] 06:27:00 Test Item Value Reference Range Comments GLUCOSE BEDSIDE TESTING (test code=GLUBED) 144 MG/DL 60-99 BASIC METABOLIC [id number] 06:25:00 Test Item Value Reference Range Comments SODIUM (test code=NA) 136 MMOL/L 137-145 POTASSIUM (test code=K) 3.5 MMOL/L 3.5-5.1 CHLORIDE (test code=CL) 99 MMOL/L 98-107 CARBON DIOXIDE (test code=CO2) 30 MMOL/L 22-30 ANION GAP (test code=GAP) 11 MMOL/L 14-24 GLUCOSE (test code=GLU) 149 MG/DL 74-106 BLOOD UREA NITROGEN (test 32 MG/DL 7-17 code=BUN) GLOMERULAR FILTRATION RATE 54 Reporting units: ml/min/1.73 (test code=GFR) m2 (Modified MDRD Formula)Reference Range: > or=60 ml/min/1.73 m2 CREATININE (test code=CREAT) 1.00 MG/DL 0.52-1.04 CALCIUM (test code=CA) 9.0 MG/DL 8.4-10.2 BASIC METABOLIC [id number] 06:19:00 Test Item Value Reference Range Comments SODIUM (test code=NA) 136 MMOL/L 137-145 POTASSIUM (test code=K) 3.5 MMOL/L 3.5-5.1 CHLORIDE (test code=CL) 99 MMOL/L 98-107 CARBON DIOXIDE (test code=CO2) MMOL/L 22-30 GLUCOSE (test code=GLU) MG/DL 74-106 BLOOD UREA NITROGEN (test MG/DL 17 code=BUN) GLOMERULAR FILTRATION RATE 54 Reporting units: ml/min/1.73 (test code=GFR) m2 (Modified MDRD Formula)Reference Range: > or=60 ml/min/1.73 m2 CREATININE (test code=CREAT) 1.00 MG/DL 0.52-1.04 CALCIUM (test code=CA) MG/DL 8.7-9.7 BASIC METABOLIC [id number] 06:17:00 Test Item Value Reference Range Comments SODIUM (test code=NA) 136 MMOL/L 137-145 POTASSIUM (test code=K) 3.5 MMOL/L 3.5-5.1 CHLORIDE (test code=CL) 99 MMOL/L 98-107 CARBON DIOXIDE (test code=CO2) MMOL/L 22-30 GLUCOSE (test code=GLU) MG/DL 74-106 BLOOD UREA NITROGEN (test code=BUN) MG/DL 7-17 GLOMERULAR FILTRATION RATE (test code=GFR) CREATININE (test code=CREAT) MG/DL 0.52-1.04 CALCIUM (test code=CA) MG/DL 8.7-9.7 GLUCOSE BEDSIDE [id number] 21:09:00 Test Item Value Reference Range Comments GLUCOSE BEDSIDE TESTING (test code=GLUBED) 236 MG/DL 60-99 BASIC METABOLIC [id number] 06:05:00 Test Item Value Reference Range Comments SODIUM (test code=NA) 135 MMOL/L 137-145 POTASSIUM (test code=K) 3.8 MMOL/L 3.5-5.1 CHLORIDE (test code=CL) 101 MMOL/L 98-107 CARBON DIOXIDE (test code=CO2) 25 MMOL/L 22-30 ANION GAP (test code=GAP) 13 MMOL/L 14-24 GLUCOSE (test code=GLU) 156 MG/DL 74-106 BLOOD UREA NITROGEN (test 38 MG/DL 7-17 code=BUN) GLOMERULAR FILTRATION RATE 49 Reporting units: ml/min/1.73 (test code=GFR) m2 (Modified MDRD Formula)Reference Range: > or=60 ml/min/1.73 m2 CREATININE (test code=CREAT) 1.10 MG/DL 0.52-1.04 CALCIUM (test code=CA) 8.9 MG/DL 8.4-10.2 BASIC METABOLIC [id number] 05:46:00 Test Item Value Reference Range Comments SODIUM (test code=NA) 135 MMOL/L 137-145 POTASSIUM (test code=K) 3.8 MMOL/L 3.5-5.1 CHLORIDE (test code=CL) 101 MMOL/L 98-107 CARBON DIOXIDE (test code=CO2) MMOL/L 22-30 GLUCOSE (test code=GLU) MG/DL 74-106 BLOOD UREA NITROGEN (test code=BUN) MG/DL 7-17 GLOMERULAR FILTRATION RATE (test code=GFR) CREATININE (test code=CREAT) MG/DL 0.52-1.04 CALCIUM (test code=CA) MG/DL 8.7-9.7 BASIC METABOLIC [id number] 05:45:00 Test Item Value Reference Range Comments SODIUM (test code=NA) 135 MMOL/L 137-145 POTASSIUM (test code=K) MMOL/L 3.5-5.1 CHLORIDE (test code=CL) 101 MMOL/L 98-107 CARBON DIOXIDE (test code=CO2) MMOL/L 22-30 GLUCOSE (test code=GLU) MG/DL 74-106 BLOOD UREA NITROGEN (test code=BUN) MG/DL 7-17 GLOMERULAR FILTRATION RATE (test code=GFR) CREATININE (test code=CREAT) MG/DL 0.52-1.04 CALCIUM (test code=CA) MG/DL 8.7-9.7 CBC W/AUTO [id number] 05:24:00 Test Item Value Reference Range Comments WHITE BLOOD CELL (test code=WBC) 11.1 K/MM3 3.8-9.8 RED BLOOD CELL (test code=RBC) 4.48 M/MM3 3.58-4.97 HEMOGLOBIN (test code=HGB) 11.0 G/DL 11.2-14.9 HEMATOCRIT (test code=HCT) 37.5 % 33.2-43.5 MEAN CELL VOLUME (test code=MCV) 84 fL 80.7-99.1 MEAN CELL HGB (test code=MCH) 24.6 pg 27.0-34.1 MEAN CELL HGB CONCETRATION (test code=MCHC) 29.3 % 32.2-35.7 RED CELL DISTRIBUTION WIDTH (test code=RDW) 16.2 % 12.1-15.2 PLATELET COUNT (test code=PLT) 223 K/MM3 129-368 MEAN PLATELET VOLUME (test code=MPV) 10.8 fl 7.4-10.4 NEUTROPHIL % (test code=NT%) 66.0 % 43-75 IMMATURE GRANULOCYTE % (test code=IG%) 1.0 % 0.0-2.0 LYMPHOCYTE % (test code=LY%) 17.3 % 14-44 MONOCYTE % (test code=MO%) 11.1 % 4-13 EOSINOPHIL % (test code=EO%) 3.8 % 0-6 BASOPHIL % (test code=BA%) 0.8 % 0-2 NUCLEATED RBC % (test code=NRBC%) 0.2 % 0-1.0 NEUTROPHIL # (test code=NT#) 7.31 K/mm3 2.0-7.6 IMMATURE GRANULOCYTE # (test code=IG#) 0.11 x10 3/uL 0-0.03 LYMPHOCYTE # (test code=LY#) 1.92 K/mm3 1.0-3.8 MONOCYTE # (test code=MO#) 1.23 K/mm3 0.1-0.8 EOSINOPHIL # (test code=EO#) 0.42 K/mm3 0.0-0.2 BASOPHIL # (test code=BA#) 0.09 K/mm3 0.0-0.2 NUCLEATED RBC # (test code=NRBC#) 0.02 K/mm3 0.0-0.1 CPK-MB [id number] 00:47:00 Test Item Value Reference Range Comments CREATINE KINASE (CK) (test code=CK) 42 UNITS/L 30-135 CKMB (test code=CKMBT) 0.93 NG/ML 0.0-5.6 CKMB INDEX (test code=CKMBI) 2.2 % 4.0-4.4 CPK-MB [id number] 00:45:00 Test Item Value Reference Range Comments CREATINE KINASE (CK) (test code=CK) 42 UNITS/L 30-135 CKMB (test code=CKMBT) NG/ML 0.0-5.6 CKMB INDEX (test code=CKMBI) % 4.0-4.4 CPK-MB [id number] 17:46:00 Test Item Value Reference Range Comments CREATINE KINASE (CK) (test code=CK) 41 UNITS/L 30-135 CKMB (test code=CKMBT) 0.98 NG/ML 0.0-5.6 CKMB INDEX (test code=CKMBI) 2.4 % 4.0-4.4 GLUCOSE BEDSIDE [id number] 16:58:00 Test Item Value Reference Range Comments GLUCOSE BEDSIDE TESTING (test code=GLUBED) 154 MG/DL 60-99 [id number] 14:02:00 Test Item Value Reference Range Comments TROPONIN-I (test code=TROPI) 0.091 NG/ML 0.012-0.033 GLUCOSE BEDSIDE [id number] 11:33:00 Test Item Value Reference Range Comments GLUCOSE BEDSIDE TESTING (test code=GLUBED) 202 MG/DL 60-99 BASIC METABOLIC [id number] 09:27:00 Test Item Value Reference Range Comments SODIUM (test code=NA) 136 MMOL/L 137-145 POTASSIUM (test code=K) 3.8 MMOL/L 3.5-5.1 CHLORIDE (test code=CL) 99 MMOL/L 98-107 CARBON DIOXIDE (test code=CO2) 28 MMOL/L 22-30 ANION GAP (test code=GAP) 13 MMOL/L 14-24 GLUCOSE (test code=GLU) 147 MG/DL 74-106 BLOOD UREA NITROGEN (test 22 MG/DL 7-17 code=BUN) GLOMERULAR FILTRATION RATE 54 Reporting units: ml/min/1.73 (test code=GFR) m2 (Modified MDRD Formula)Reference Range: > or=60 ml/min/1.73 m2 CREATININE (test code=CREAT) 1.00 MG/DL 0.52-1.04 CALCIUM (test code=CA) 8.9 MG/DL 8.4-10.2 [id number] 09:27:00 Test Item Value Reference Range Comments PHOSPHOROUS (test code=PHOS) 4.2 MG/DL 2.5-4.5 [id number] 09:27:00 Test Item Value Reference Range Comments MAGNESIUM (test code=MAG) 2.0 MG/DL 1.6-2.3 CPK-MB [id number] 09:27:00 Test Item Value Reference Range Comments CREATINE KINASE (CK) (test code=CK) 28 UNITS/L 30-135 CKMB (test code=CKMBT) 1.00 NG/ML 0.0-5.6 CKMB INDEX (test code=CKMBI) 3.6 % 4.0-4.4 BASIC METABOLIC [id number] 09:18:00 Test Item Value Reference Range Comments SODIUM (test code=NA) 136 MMOL/L 137-145 POTASSIUM (test code=K) 3.8 MMOL/L 3.5-5.1 CHLORIDE (test code=CL) 99 MMOL/L 98-107 CARBON DIOXIDE (test code=CO2) 28 MMOL/L 22-30 ANION GAP (test code=GAP) 13 MMOL/L 14-24 GLUCOSE (test code=GLU) 147 MG/DL 74-106 BLOOD UREA NITROGEN (test 22 MG/DL 7-17 code=BUN) GLOMERULAR FILTRATION RATE 54 Reporting units: ml/min/1.73 (test code=GFR) m2 (Modified MDRD Formula)Reference Range: > or=60 ml/min/1.73 m2 CREATININE (test code=CREAT) 1.00 MG/DL 0.52-1.04 CALCIUM (test code=CA) 8.9 MG/DL 8.4-10.2 [id number] 09:18:00 Test Item Value Reference Range Comments PHOSPHOROUS (test code=PHOS) 4.2 MG/DL 2.5-4.5 [id number] 09:18:00 Test Item Value Reference Range Comments MAGNESIUM (test code=MAG) MG/DL 1.6-2.3 CPK-MB [id number] 09:18:00 Test Item Value Reference Range Comments CREATINE KINASE (CK) (test code=CK) 28 UNITS/L 30-135 CKMB (test code=CKMBT) NG/ML 0.0-5.6 CKMB INDEX (test code=CKMBI) % 4.0-4.4 BASIC METABOLIC [id number] 09:18:00 Test Item Value Reference Range Comments SODIUM (test code=NA) 136 MMOL/L 137-145 POTASSIUM (test code=K) 3.8 MMOL/L 3.5-5.1 CHLORIDE (test code=CL) 99 MMOL/L 98-107 CARBON DIOXIDE (test code=CO2) 28 MMOL/L 22-30 ANION GAP (test code=GAP) 13 MMOL/L 14-24 GLUCOSE (test code=GLU) 147 MG/DL 74-106 BLOOD UREA NITROGEN (test 22 MG/DL 7-17 code=BUN) GLOMERULAR FILTRATION RATE 54 Reporting units: ml/min/1.73 (test code=GFR) m2 (Modified MDRD Formula)Reference Range: > or=60 ml/min/1.73 m2 CREATININE (test code=CREAT) 1.00 MG/DL 0.52-1.04 CALCIUM (test code=CA) 8.9 MG/DL 8.4-10.2 [id number] 09:18:00 Test Item Value Reference Range Comments PHOSPHOROUS (test code=PHOS) 4.2 MG/DL 2.5-4.5 [id number] 09:18:00 Test Item Value Reference Range Comments MAGNESIUM (test code=MAG) 2.0 MG/DL 1.6-2.3 CPK-MB [id number] 09:18:00 Test Item Value Reference Range Comments CREATINE KINASE (CK) (test code=CK) 28 UNITS/L 30-135 CKMB (test code=CKMBT) NG/ML 0.0-5.6 CKMB INDEX (test code=CKMBI) % 4.0-4.4 BASIC METABOLIC [id number] 09:17:00 Test Item Value Reference Range Comments SODIUM (test code=NA) 136 MMOL/L 137-145 POTASSIUM (test code=K) 3.8 MMOL/L 3.5-5.1 CHLORIDE (test code=CL) 99 MMOL/L 98-107 CARBON DIOXIDE (test code=CO2) MMOL/L 22-30 GLUCOSE (test code=GLU) MG/DL 74-106 BLOOD UREA NITROGEN (test MG/DL 7-17 code=BUN) GLOMERULAR FILTRATION RATE 54 Reporting units: ml/min/1.73 (test code=GFR) m2 (Modified MDRD Formula)Reference Range: > or=60 ml/min/1.73 m2 CREATININE (test code=CREAT) 1.00 MG/DL 0.52-1.04 CALCIUM (test code=CA) MG/DL 8.7-9.7 [id number] 09:17:00 Test Item Value Reference Range Comments PHOSPHOROUS (test code=PHOS) MG/DL 2.5-4.5 [id number] 09:17:00 Test Item Value Reference Range Comments MAGNESIUM (test code=MAG) MG/DL 1.6-2.3 CPK-MB [id number] 09:17:00 Test Item Value Reference Range Comments CREATINE KINASE (CK) (test code=CK) UNITS/L 30-135 CKMB (test code=CKMBT) NG/ML 0.0-5.6 CKMB INDEX (test code=CKMBI) % 4.0-4.4 BASIC METABOLIC [id number] 09:15:00 Test Item Value Reference Range Comments SODIUM (test code=NA) 136 MMOL/L 137-145 POTASSIUM (test code=K) 3.8 MMOL/L 3.5-5.1 CHLORIDE (test code=CL) 99 MMOL/L 98-107 CARBON DIOXIDE (test code=CO2) MMOL/L 22-30 GLUCOSE (test code=GLU) MG/DL 74-106 BLOOD UREA NITROGEN (test code=BUN) MG/DL 7-17 GLOMERULAR FILTRATION RATE (test code=GFR) CREATININE (test code=CREAT) MG/DL 0.52-1.04 CALCIUM (test code=CA) MG/DL 8.7-9.7 [id number] 09:15:00 Test Item Value Reference Range Comments PHOSPHOROUS (test code=PHOS) MG/DL 2.5-4.5 [id number] 09:15:00 Test Item Value Reference Range Comments MAGNESIUM (test code=MAG) MG/DL 1.6-2.3 CPK-MB [id number] 09:15:00 Test Item Value Reference Range Comments CREATINE KINASE (CK) (test code=CK) UNITS/L 30-135 CKMB (test code=CKMBT) NG/ML 0.0-5.6 CKMB INDEX (test code=CKMBI) % 4.0-4.4 BASIC METABOLIC [id number] 09:14:00 Test Item Value Reference Range Comments SODIUM (test code=NA) MMOL/L 137-145 POTASSIUM (test code=K) MMOL/L 3.5-5.1 CHLORIDE (test code=CL) 99 MMOL/L 98-107 CARBON DIOXIDE (test code=CO2) MMOL/L 22-30 GLUCOSE (test code=GLU) MG/DL 74-106 BLOOD UREA NITROGEN (test code=BUN) MG/DL 7-17 GLOMERULAR FILTRATION RATE (test code=GFR) CREATININE (test code=CREAT) MG/DL 0.52-1.04 CALCIUM (test code=CA) MG/DL 8.7-9.7 [id number] 09:14:00 Test Item Value Reference Range Comments PHOSPHOROUS (test code=PHOS) MG/DL 2.5-4.5 [id number] 09:14:00 Test Item Value Reference Range Comments MAGNESIUM (test code=MAG) MG/DL 1.6-2.3 CPK-MB [id number] 09:14:00 Test Item Value Reference Range Comments CREATINE KINASE (CK) (test code=CK) UNITS/L 30-135 CKMB (test code=CKMBT) NG/ML 0.0-5.6 CKMB INDEX (test code=CKMBI) % 4.0-4.4 CBC W/AUTO [id number] 08:55:00 Test Item Value Reference Range Comments WHITE BLOOD CELL (test code=WBC) 14.4 K/MM3 3.8-9.8 RED BLOOD CELL (test code=RBC) 4.38 M/MM3 3.58-4.97 HEMOGLOBIN (test code=HGB) 10.6 G/DL 11.2-14.9 HEMATOCRIT (test code=HCT) 37.1 % 33.2-43.5 MEAN CELL VOLUME (test code=MCV) 85 fL 80.7-99.1 MEAN CELL HGB (test code=MCH) 24.2 pg 27.0-34.1 MEAN CELL HGB CONCETRATION (test code=MCHC) 28.6 % 32.2-35.7 RED CELL DISTRIBUTION WIDTH (test code=RDW) 16.1 % 12.1-15.2 PLATELET COUNT (test code=PLT) 391 K/MM3 129-368 MEAN PLATELET VOLUME (test code=MPV) 10.5 fl 7.4-10.4 NEUTROPHIL % (test code=NT%) 74.6 % 43-75 IMMATURE GRANULOCYTE % (test code=IG%) 0.8 % 0.0-2.0 LYMPHOCYTE % (test code=LY%) 13.5 % 14-44 MONOCYTE % (test code=MO%) 8.4 % 4-13 EOSINOPHIL % (test code=EO%) 1.9 % 0-6 BASOPHIL % (test code=BA%) 0.8 % 0-2 NUCLEATED RBC % (test code=NRBC%) 0.0 % 0-1.0 NEUTROPHIL # (test code=NT#) 10.79 K/mm3 2.0-7.6 IMMATURE GRANULOCYTE # (test code=IG#) 0.11 x10 3/uL 0-0.03 LYMPHOCYTE # (test code=LY#) 1.95 K/mm3 1.0-3.8 MONOCYTE # (test code=MO#) 1.21 K/mm3 0.1-0.8 EOSINOPHIL # (test code=EO#) 0.27 K/mm3 0.0-0.2 BASOPHIL # (test code=BA#) 0.11 K/mm3 0.0-0.2 NUCLEATED RBC # (test code=NRBC#) 0.00 K/mm3 0.0-0.1 DIFFERENTIAL [id number] 08:55:00 Test Item Value Reference Range Comments RBC MORPHOLOGY REQUIRED (test code=RBCM) PLATELET ESTIMATE (test code=PLTEST) ADEQUATE PLATELET MORPHOLOGY (test code=PLTMORPH) NORMAL CBC W/AUTO [id number] 08:55:00 Test Item Value Reference Range Comments WHITE BLOOD CELL (test code=WBC) 14.4 K/MM3 3.8-9.8 RED BLOOD CELL (test code=RBC) 4.38 M/MM3 3.58-4.97 HEMOGLOBIN (test code=HGB) 10.6 G/DL 11.2-14.9 HEMATOCRIT (test code=HCT) 37.1 % 33.2-43.5 MEAN CELL VOLUME (test code=MCV) 85 fL 80.7-99.1 MEAN CELL HGB (test code=MCH) 24.2 pg 27.0-34.1 MEAN CELL HGB CONCETRATION (test code=MCHC) 28.6 % 32.2-35.7 RED CELL DISTRIBUTION WIDTH (test code=RDW) 16.1 % 12.1-15.2 PLATELET COUNT (test code=PLT) 391 K/MM3 129-368 MEAN PLATELET VOLUME (test code=MPV) 10.5 fl 7.4-10.4 NEUTROPHIL % (test code=NT%) 74.6 % 43-75 IMMATURE GRANULOCYTE % (test code=IG%) 0.8 % 0.0-2.0 LYMPHOCYTE % (test code=LY%) 13.5 % 14-44 MONOCYTE % (test code=MO%) 8.4 % 4-13 EOSINOPHIL % (test code=EO%) 1.9 % 0-6 BASOPHIL % (test code=BA%) 0.8 % 0-2 NUCLEATED RBC % (test code=NRBC%) 0.0 % 0-1.0 NEUTROPHIL # (test code=NT#) 10.79 K/mm3 2.0-7.6 IMMATURE GRANULOCYTE # (test code=IG#) 0.11 x10 3/uL 0-0.03 LYMPHOCYTE # (test code=LY#) 1.95 K/mm3 1.0-3.8 MONOCYTE # (test code=MO#) 1.21 K/mm3 0.1-0.8 EOSINOPHIL # (test code=EO#) 0.27 K/mm3 0.0-0.2 BASOPHIL # (test code=BA#) 0.11 K/mm3 0.0-0.2 NUCLEATED RBC # (test code=NRBC#) 0.00 K/mm3 0.0-0.1 DIFFERENTIAL [id number] 08:55:00 Test Item Value Reference Range Comments RBC MORPHOLOGY REQUIRED (test code=RBCM) PLATELET ESTIMATE (test code=PLTEST) ADEQUATE PLATELET MORPHOLOGY (test code=PLTMORPH) NORMAL - XR CHEST [id number] 08:06:00 Patient Name: BREA GILES Unit No: [id number] EXAMS: CPT CODE: [id number] XR CHEST 1V [id number] Single View Chest. Location: B2 Clinical Indication: 73-year-old with dyspnea Comparison: None Findings: An AP view of thechest was obtained. The heart is enlarged. There is prominence of the central vasculature and the mid/lower lung interstitium. There may be layering pleural fluid. No pneumothorax. No acute osseous abnormal normality. Impression: Findings are most compatible with congestive heart failure and resultant edema. at 0806 Reported and signed by: Alf Schwarz M.D. CC: Alexandr Hawkins; Viviana Thompson MD Technologist : Alan Pruitt, RT(R) Transcrpt Date/Tm/Trnsp: 06/25/2019 (0806) [id number] Orig Print D/T: S: 06/25/2019 (0810) [facility] NAME: BREA GILES [id number] [address] [place] PHYS: [place] [address] : 1945 AGE: 73 SEX: F LOC: [id number].I10 A PHONE #: [phone] EXAM DATE: 06/25/2019 STATUS: ADM IN FAX #: [phone] RADIOLOGY NO: PAGE 1 Signed ReportGLUCOSE BEDSIDE [id number] 08:00:00 Test Item Value Reference Range Comments GLUCOSE BEDSIDE TESTING (test code=GLUBED) 155 MG/DL 60-99 COMPREHENSIVE METABOLIC [id number] 07:19:00 Test Item Value Reference Range Comments SODIUM (test code=NA) 136 MMOL/L 137-145 POTASSIUM (test code=K) 3.9 MMOL/L 3.5-5.1 CHLORIDE (test code=CL) 100 MMOL/L 98-107 CARBON DIOXIDE (test code=CO2) 26 MMOL/L 22-30 GLUCOSE (test code=GLU) 181 MG/DL 74-106 BLOOD UREA NITROGEN (test 21 MG/DL 7-17 code=BUN) GLOMERULAR FILTRATION RATE 49 Reporting units: (test code=GFR) ml/min/1.73 m2 (Modified MDRD Formula)Reference Range: > or=60 ml/min/1.73 m2 CREATININE (test code=CREAT) 1.10 MG/DL 0.52-1.04 TOTAL PROTEIN (test code=PROT) 6.0 G/DL 6.3-8.2 ALBUMIN (test code=ALB) 3.4 G/DL 3.5-5.0 CALCIUM (test code=CA) 9.2 MG/DL 8.4-10.2 BILIRUBIN TOTAL (test 0.6 MG/DL 0.2-1.3 code=BILT) SGOT/AST (test code=AST) 68 UNITS/L 14-36 SGPT/ALT (test code=ALT) 66 UNITS/L 9-52 ALKALINE PHOSPHATASE (test 137 UNITS/L 38-126 code=ALKP) COMPREHENSIVE METABOLIC [id number] 07:18:00 Test Item Value Reference Range Comments SODIUM (test code=NA) 136 MMOL/L 137-145 POTASSIUM (test code=K) 3.9 MMOL/L 3.5-5.1 CHLORIDE (test code=CL) 100 MMOL/L 98-107 CARBON DIOXIDE (test code=CO2) 26 MMOL/L 22-30 GLUCOSE (test code=GLU) MG/DL 74-106 BLOOD UREA NITROGEN (test MG/DL 7-17 code=BUN) GLOMERULAR FILTRATION RATE 49 Reporting units: ml/min/1.73 (test code=GFR) m2 (Modified MDRD Formula)Reference Range: > or=60 ml/min/1.73 m2 CREATININE (test code=CREAT) 1.10 MG/DL 0.52-1.04 TOTAL PROTEIN (test code=PROT) G/DL 6.3-8.2 ALBUMIN (test code=ALB) 3.4 G/DL 3.5-5.0 CALCIUM (test code=CA) MG/DL 8.7-9.7 BILIRUBIN TOTAL (test 0.6 MG/DL 0.2-1.3 code=BILT) SGOT/AST (test code=AST) 68 UNITS/L 14-36 SGPT/ALT (test code=ALT) UNITS/L 9-52 ALKALINE PHOSPHATASE (test UNITS/L 38-126 code=ALKP) COMPREHENSIVE METABOLIC [id number] 07:16:00 Test Item Value Reference Range Comments SODIUM (test code=NA) 136 MMOL/L 137-145 POTASSIUM (test code=K) 3.9 MMOL/L 3.5-5.1 CHLORIDE (test code=CL) 100 MMOL/L 98-107 CARBON DIOXIDE (test code=CO2) MMOL/L 22-30 GLUCOSE (test code=GLU) MG/DL 74-106 BLOOD UREA NITROGEN (test code=BUN) MG/DL 7-17 GLOMERULAR FILTRATION RATE (test code=GFR) CREATININE (test code=CREAT) MG/DL 0.52-1.04 TOTAL PROTEIN (test code=PROT) G/DL 6.3-8.2 ALBUMIN (test code=ALB) 3.4 G/DL 3.5-5.0 CALCIUM (test code=CA) MG/DL 8.7-9.7 BILIRUBIN TOTAL (test code=BILT) MG/DL 0.2-1.3 SGOT/AST (test code=AST) UNITS/L 15-37 SGPT/ALT (test code=ALT) UNITS/L 9-52 ALKALINE PHOSPHATASE (test code=ALKP) UNITS/L 38-126 COMPREHENSIVE METABOLIC [id number] 07:15:00 Test Item Value Reference Range Comments SODIUM (test code=NA) MMOL/L 137-145 POTASSIUM (test code=K) MMOL/L 3.5-5.1 CHLORIDE (test code=CL) MMOL/L 98-107 CARBON DIOXIDE (test code=CO2) MMOL/L 22-30 GLUCOSE (test code=GLU) MG/DL 74-106 BLOOD UREA NITROGEN (test code=BUN) MG/DL 7-17 GLOMERULAR FILTRATION RATE (test code=GFR) CREATININE (test code=CREAT) MG/DL 0.52-1.04 TOTAL PROTEIN (test code=PROT) G/DL 6.3-8.2 ALBUMIN (test code=ALB) 3.4 G/DL 3.5-5.0 CALCIUM (test code=CA) MG/DL 8.7-9.7 BILIRUBIN TOTAL (test code=BILT) MG/DL 0.2-1.3 SGOT/AST (test code=AST) UNITS/L 15-37 SGPT/ALT (test code=ALT) UNITS/L 9-52 ALKALINE PHOSPHATASE (test code=ALKP) UNITS/L 38-126 LIPOPROTEIN LDL [id number] 05:23:00 Test Item Value Reference Range Comments LIPOPROTEIN LDL DIRECT (test 84 mg/dL 100-129 code=LDLDIR) ===Reference Interval: mg/dL mmol/L ---------Optimal <100 <2.6Near/above optimal 100-129 2.6-3.3Borderline High 130-159 3.4-4.1High 160-189 4.1-4.9Very High >=190 >=4.9=========This LDL result is a direct measurement.========= [id number] 05:23:00 Test Item Value Reference Range Comments TROPONIN-I (test 0.127 NG/ML 0.012-0.033 CALLED TO [facility] icu & code=TROPI) READBACK ON 06/25/19 AT 0500 BY Aimee Ramirez LIPOPROTEIN LDL [id number] 05:02:00 Test Item Value Reference Range Comments LIPOPROTEIN LDL DIRECT (test code=LDLDIR) mg/dL 100-129 [id number] 05:02:00 Test Item Value Reference Range Comments TROPONIN-I (test 0.127 NG/ML 0.012-0.033 CALLED TO [facility] icu & code=TROPI) READBACK ON 06/25/19 AT 0500 BY Aimee Ramirez GLUCOSE BEDSIDE [id number] 03:17:00 Test Item Value Reference Range Comments GLUCOSE BEDSIDE TESTING (test code=GLUBED) 177 MG/DL 60-99
[2019-09-14] MEDS ORDERED: LOPERAMIDE HCL 2 MG CAPSULE PO PRN (12:20)
[2019-09-14] MEDS ORDERED: POLYETHYL GLY 3350 17 GM/DOSE PO PRN (12:20)
[2019-09-14] MEDS ORDERED: ACETAMINOPHEN 325 MG TABLET PO PRN (12:20)
[2019-09-14] MEDS ORDERED: ONDANSETRON 4 MG/2 ML VIAL IV PRN (12:20)
[2019-09-14 12:27] VITALS: BMI 39.0
[2019-09-14 12:51] LABS: Absolute Lymphocytes (CBC) 0.4 K/uL (0.7-4.9); Basophils % 0.4 % (0-1.3); Hematocrit 36.5 % (36.0-45.0); Lymphocytes % 3.4 % (15.3-44.8); MPV 7.7 fL (7.6-11.3); RBC Red Blood Cell Count 4.65 M/uL (3.86-4.86)
[2019-09-14 12:53] LABS: Protime INR 1.19
[2019-09-14] MEDS ORDERED: INFLUENZA VACCINE (for 3y+) 0.5 ML DOSE IMVAC ONE (13:00)
[2019-09-14] MEDS ORDERED: PNEUMOCOCCAL VACCINE 0.5 ML IMVAC ONE (13:00)
[2019-09-14] MEDS ORDERED: NACHLORIDE 0.45% 1,000 ML IV SCH (13:00)
[2019-09-14 13:19] LABS: Albumin 2.2 g/dL (3.4-5.0); Bilirubin Direct 0.3 mg/dL (0-0.2); Bilirubin Total 0.8 mg/dL (0.2-1.0); Magnesium 1.7 mg/dL (1.8-2.4); Phosphorus 1.9 mg/dL (2.5-4.9); Potassium 3.1 mmol/L (3.5-5.1); Protein, Total 5.6 g/dL (6.4-8.2); Thyroid Stimulating Hormone 1.74 uIU/mL (0.360-3.740)
[2019-09-14] MEDS: LEVALBUTEROL 1.25 MG/3 ML NEB NEB SCH ×2 (13:35→19:50)
[2019-09-14] MEDS: IPRATROPIUM BROM 0.5MG/2.5ML NEB SCH ×2 (13:35→19:50)
[2019-09-14 13:54] LABS: Blood Morphology Comment NOT SEEN (NOT SEEN); Platelet Estimate ADEQ
[2019-09-14] MEDS: CEFTRIAXONE/SWI 1gm 1 GM/10 ML SYR IVP SCH ×2 (13:58→20:56)
[2019-09-14] MEDS ORDERED: MAGNESIUM SULFATE 1 gm IVPB 1 GM/100 ML BAG IV ONE (14:39)
[2019-09-14] MEDS ORDERED: D50W 25 GM/50 ML SYRINGE/VIAL IV PRN (14:58)
[2019-09-14] MEDS ORDERED: GLUCAGON 1 MG/VIAL IM PRN (14:58)
[2019-09-14 15:52] LABS: Urine Appearance CLOUDY; Urine Bilirubin NEGATIVE (NEG); Urine Blood 2+ (NEG); Urine Color YELLOW; Urine Glucose 3+ (NEG); Urine Protein 1+ (NEG); Urine Urobilinogen 0.2 mg/dL (0.2-1.0)
[2019-09-14 15:56] LABS: Urine Microscopic Reflex ORDER UMIC
[2019-09-14] MEDS ORDERED: ALBUTEROL 2.5 MG/3 ML NEB SOL NEB PRN (16:00)
[2019-09-14] MEDS ORDERED: POTASSIUM 25 MEQ EFFERV TAB PO ONE (16:00)
[2019-09-14 16:05] LABS: Urine Bacteria >50 /HPF (<20)
[2019-09-14 16:14] LABS: Urine Culture Reflex Order NOT NEEDED
--- NOTE | 2019-09-14 16:32 | RAD REPORT ---
EXAM DESCRIPTION: CT - Chest Abdomen Pelvis W Cont - 09/14/2019 3:12 pm CLINICAL HISTORY: Sepsis, fever of unknown origin, history of diverticulitis, prior appendectomy and cholecystectomy COMPARISON: None. TECHNIQUE: Following dynamic enhancement using 100 milliliters nonionic IV contrast, axial imaging o f the chest, abdomen and pelvis was performed. Biphasic technique was utilized through the abdomen. Oral contrast was administered. All CT scans are performed using dose optimization technique as appropriate and may include automated exposure control or mA/KV adjustment according to patient size. FINDINGS: No focal consolidation to suspect bacterial pneumonia. Interstitial opacification is mildl y prominent. Minimal interstitial edema or a minimal viral infiltrate cannot be excluded. No endobron chial lesion. No pleural effusion, pleural thickening or pneumothorax. No significant aortic or pulmo nary arterial tree finding. Mediastinal and hilar regions show no mass or abnormal lymphadenopathy. N o chest wall mass or axillary lymphadenopathy. No pericardial thickening or pericardial effusion. Liver and spleen show no suspicious findings. Gallbladder is absent. No biliary tree dilatation. No p ancreatitis or acute pancreatic process. No hydronephrosis or obstructing renal calculus. A 2 centimeter lower pole right renal cyst is presen t. There is some heterogeneity in the renal parenchymal enhancement pattern. However, finding is not definitive for pyelonephritis. Correlation can be made with any UA abnormality. No perinephric strand ing. No adrenal abnormalities. No urinary bladder wall thickening or enhancement. Uterus is absent. O varies are absent or atrophic. No adnexal abnormality. Small hiatal hernia is present. No gastric wall thickening or mass. No dilated large or small bowel l oop. Sigmoid diverticulosis is present without evidence for diverticulitis. No mass lesion. No acute GI findings seen. Patient has a prominent bony degenerative change. No evidence for discitis or osteomyelitis. Prominent arterial tree calcifications are present. No acute vascular finding. IMPRESSION: CT chest imaging shows no evidence for bacterial pneumonia. Interstitial markings are mi ldly prominent. A minimal interstitial edema or interstitial viral infiltrate cannot be excluded. No pericardial effusion. No diverticulitis or acute GI process. Kidneys shows subtle heterogeneity of enhancement not definitive for pyelonephritis. Correlation can be made with any UA abnormality. Urinary bladder is unremarkable. No other significant or suspicious finding as a source for elevated white count or FUO.
[2019-09-14] MEDS: INSULIN -REGULAR HUMAN 50 UNIT/0.5 ML ML SQ SCH ×2 (16:53→20:57)
--- NOTE | 2019-09-14 18:48 | P.HP ---
Certification for Inpatient Patient admitted to: Inpatient With expected LOS: >2 Midnights Practitioner: I am a practitioner with admitting privileges, knowledge of patient current condition, hospital course, and medical plan of care. Services: Services provided to patient in accordance with Admission requirements found in Title 42 Section 412.3 of the Code of Federal Regulations Patient History Date of Service: 09/14/19 Reason for admission: WEAK, POSITIVE BLOOD CULTURES History of Present Illness: MRS. SARKAR CAME TO OFFICE YESTERDAY, WAS WEAK, DIAPHORETIC BUT BLAMES HER SYMPTOM TO CYMBALTA. I WAS CALLED TODAY THAT HER BLOOD CULTURES WERE POSITIVE SO I ASKED HER TO GET TO HOSPITAL TO GET ADMITTED. HER URINE IS POSITIVE FOR INFECTION. SHE IS GENERALLY WEAK AND HAS FALLEN 3 TIMES IN A MONTH. I DID CT SCAN OF BRAIN AND WAS TOLD THAT SHE HAS EXCESS FLUID IN FRONTAL REGION AND I HEARD FROM THE [place]WIN SISTER THAT SHE AND SISTER BOTH HAVE THIS DEFICIT FROM IN THE FRONTAL REGION OF BRAIN AND IS OF NO CONSEQUENCE. 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 rebuilt surg -: fibroids - Family History Sister -: Heart disease, Hypertension Notes: additional sister with arthritis Father -: Cancer Notes: lung Mother -: Cancer Notes: colon - Social History Smoking Status: Never smoker Alcohol use: Yes CD- Drugs: No Caffeine use: Yes Place of Residence: Home Review of Systems 10-point ROS is otherwise unremarkable General: Weakness, Malaise Physical Examination - Vital Signs Temperature: 97.2 F Blood Pressure: 130/60 Pulse: 71 Respirations: 18 Pulse Ox (%): 94 - Physical Exam General: Alert, Mild distress, Moderate distress, Obese HEENT: Atraumatic, PERRLA, Mucous membr. moist/pink, EOMI, Sclerae nonicteric Neck: Supple, 2+ carotid pulse no bruit, No LAD, Without JVD or thyroid abnormality Respiratory: Clear to auscultation bilaterally, Normal air movement Cardiovascular: Regular rate/rhythm, Normal S1 S2 Gastrointestinal: Normal bowel sounds, No tenderness Musculoskeletal: No tenderness Integumentary: No rashes Neurological: Normal gait, Normal speech, Normal strength at 5/5 x4 extr, Normal tone, Normal affect Lymphatics: No axilla or inguinal lymphadenopathy - Studies Laboratory Data (last 24 hrs) 09/14/19 12:32: Sodium 134 L, Potassium 3.1 L, BUN 17, Creatinine 1.25, Glucose 258 H, Phosphorus 1.9 L, Magnesium 1.7 L, Total Bilirubin 0.8, AST 11 L, ALT 25 , Alkaline Phosphatase 98 09/14/19 12:32: PT 14.0 H, INR 1.19, APTT 27.6 09/14/19 12:32: WBC 11.5 H D, Hgb 11.6 L, Hct 36.5 D, Plt Count 160 Assessment and Plan - Problems (Diagnosis) (1) Sepsis due to gram-negative urinary tract infection Current Visit: Yes Status: Acute Plan: GENTLE HYDRATION. IV ROCEPHIN BID. STABLE FOR NOW. ORDER PT. REHAB POSSIBLE. (2) Congestive cardiomyopathy Current Visit: Yes Status: Acute - Advance Directives Does patient have a Living Will: No Does patient have a Durable POA for Healthcare: No
[2019-09-14] MEDS ORDERED: Ringers Lactate 1,000 ML IV SCH (21:00)
[2019-09-15] MEDS ORDERED: POTASSIUM CL SA 10 MEQ TAB PO ONE (00:14)
[2019-09-15] MEDS: LEVALBUTEROL 1.25 MG/3 ML NEB NEB SCH ×4 (01:50→19:30)
[2019-09-15] MEDS: IPRATROPIUM BROM 0.5MG/2.5ML NEB SCH ×4 (01:50→19:30)
[2019-09-15] MEDS: DIPHENHYDRAMINE 25 MG TAB/CAP PO PRN ×2 (04:20→23:18)
[2019-09-15 07:11] LABS: Potassium 3.4 mmol/L (3.5-5.1)
[2019-09-15 07:13] LABS: Absolute Lymphocytes (CBC) 0.5 K/uL (0.7-4.9); Basophils % 0.6 % (0-1.3); Hematocrit 36.4 % (36.0-45.0); Lymphocytes % 6.1 % (15.3-44.8); MPV 7.9 fL (7.6-11.3); RBC Red Blood Cell Count 4.64 M/uL (3.86-4.86)
[2019-09-15] MEDS: INSULIN -REGULAR HUMAN 50 UNIT/0.5 ML ML SQ SCH ×4 (07:30→21:01)
[2019-09-15] MEDS: Ringers Lactate 1,000 ML IV SCH ×2 (08:00→21:02)
[2019-09-15] MEDS ORDERED: POTASSIUM 25 MEQ EFFERV TAB PO ONE (08:11)
[2019-09-15 08:18] LABS: Magnesium 2.2 mg/dL (1.8-2.4)
[2019-09-15] MEDS: SACUBITRIL/VALSARTAN 49/51 MG TAB PO SCH ×2 (09:00→21:00)
[2019-09-15] MEDS ORDERED: DULOXETINE 20 MG CAP PO SCH (09:00)
[2019-09-15] MEDS ORDERED: DIGOXIN 0.125 MG TABLET PO SCH (09:00)
[2019-09-15] MEDS ORDERED: OMEPRAZOLE 20 MG CAPSULE PO SCH (09:00)
[2019-09-15] MEDS: BUPROPION HCL XL 150 MG TAB PO SCH (09:22)
[2019-09-15] MEDS: CEFTRIAXONE/SWI 1gm 1 GM/10 ML SYR IVP SCH (09:22)
[2019-09-15] MEDS: predniSONE 10 MG TAB PO SCH (09:22)
[2019-09-15] MEDS: carvediloL 25 MG TAB PO SCH ×2 (09:25→17:17)
[2019-09-15] MEDS: DULOXETINE 30 MG CAP PO SCH ×2 (10:03→21:01)
[2019-09-15] MEDS: APIXABAN 2.5 MG TABLET PO SCH ×2 (10:03→21:01)
[2019-09-15] MEDS: AMIODARONE HCL 200 MG TAB PO SCH (10:04)
[2019-09-15 10:22] LABS: Platelet Estimate ADEQ
[2019-09-15 10:23] LABS: Anisocytosis 1+; Blood Morphology Comment NOTED (NOT SEEN); Hypochromasia 1+
--- NOTE | 2019-09-15 14:50 | P.PN ---
Subjective Date of Service: 09/15/19 Chief Complaint: LOT BETTER Subjective: Improving MS. Angella Glez IS DOING A LOT BETTER. STRONGER. NO FEVER. Review of Systems 10-point ROS is otherwise unremarkable General: Weakness, Malaise Physical Examination - Vital Signs Temperature: 97.5 F Blood Pressure: 110/48 Pulse: 90 Respirations: 17 Pulse Ox (%): 90 - Physical Exam General: Alert, In no apparent distress HEENT: Atraumatic, PERRLA, EOMI Neck: Supple, JVD not distended Respiratory: Clear to auscultation bilaterally, Normal air movement Cardiovascular: Regular rate/rhythm, Normal S1 S2 Gastrointestinal: Normal bowel sounds, No tenderness, Tenderness (LLQ) Musculoskeletal: No tenderness Integumentary: No rashes Neurological: Normal speech, Normal tone, Normal affect Lymphatics: No axilla or inguinal lymphadenopathy - Studies Laboratory Data (last 24 hrs) 09/15/19 06:32: Sodium 137, Potassium 3.4 L, BUN 13, Creatinine 1.12, Glucose 120 H, Magnesium 2.2 D 09/15/19 06:32: WBC 8.8 D, Hgb 11.5 L, Hct 36.4, Plt Count 131 L 09/14/19 22:10: Potassium 3.4 L Medications List Reviewed: Yes Assessment And Plan - Current Problems (Diagnosis) (1) Sepsis due to gram-negative urinary tract infection Current Visit: Yes Status: Acute Plan: GENTLE HYDRATION. IV ROCEPHIN BID. STABLE FOR NOW. ORDER PT. REHAB POSSIBLE. RESUME ROCEPHIN. CULTURE SENSITIVITY PENDING. STABLE. USUAL BOLUS NOT GIVEN SHE HAS SEVERE CONGESTIVE CARDIOMYOPATHY. (2) Congestive cardiomyopathy Current Visit: Yes Status: Chronic Plan: ECHO WITH DOPPLER FOR FU ON STATUS. (3) Diabetes Current Visit: Yes Status: Chronic Plan: SHE IS MORBIDLY OBESE. WILL LIVE LONGER IF SHE LOSES WEIGHT. SHE IS AWARE. I HAVE DISCUSSED VARIOUS DIET PLANS. START GLIMERIDE. SHE CAN'T TAKE METFORMIN SHE HAS CHF. SHE CAN'T TAKE SGLT INHIBITORS SHE HAS RECURRENT UTI. SHE WILL BE GOOD WITH TRULICITY BUT SHE CAN'T DO IN HOSPITAL AND ALSO SHE CAN'T AFFORD IT. WEIGHT LOSS WILL IMPROVE HER DM. Qualifiers: Diabetes mellitus type: type 2 (4) Hypokalemia Current Visit: Yes Status: Acute Plan: ELECTROLYTES ARE ABN SHE HAS SEPSIS. (5) Hypomagnesemia Current Visit: Yes Status: Acute
[2019-09-15 15:06] LABS: MPV 8.3 fL (7.6-11.3)
[2019-09-15 15:36] LABS: Platelet Estimate ADEQ
[2019-09-15] MEDS ORDERED: ENOXAPARIN 40 MG/0.4 ML SQ SCH (17:00)
[2019-09-15] MEDS ORDERED: Meropenem 1000 MG/VIAL IV SCH (21:00)
[2019-09-15] MEDS ORDERED: LATANOPROST EACH EYE SCH (21:00)
[2019-09-16] MEDS: LEVALBUTEROL 1.25 MG/3 ML NEB NEB SCH ×4 (01:27→19:15)
[2019-09-16] MEDS: IPRATROPIUM BROM 0.5MG/2.5ML NEB SCH ×4 (01:27→19:15)
[2019-09-16 02:33] LABS: UR MICROALBUMIN 4.2 mg/dL (< 1.9)
[2019-09-16 05:21] LABS: Potassium 4.1 mmol/L (3.5-5.1)
[2019-09-16] MEDS: OMEPRAZOLE 20 MG CAPSULE PO SCH (05:28)
[2019-09-16] MEDS: carvediloL 25 MG TAB PO SCH (05:28)
[2019-09-16] MEDS ORDERED: PANTOPRAZOLE 40MG TABLET PO SCH (06:30)
[2019-09-16] MEDS ORDERED: OMEPRAZOLE 20 MG CAPSULE PO SCH (06:30)
[2019-09-16] MEDS: INSULIN -REGULAR HUMAN 50 UNIT/0.5 ML ML SQ SCH ×4 (07:30→20:57)
[2019-09-16] MEDS: APIXABAN 2.5 MG TABLET PO SCH ×2 (08:40→20:57)
[2019-09-16] MEDS: DULOXETINE 30 MG CAP PO SCH ×2 (08:40→20:57)
[2019-09-16] MEDS: GLIMEPIRIDE 2 MG TABLET PO SCH (08:40)
[2019-09-16] MEDS: predniSONE 10 MG TAB PO SCH (08:40)
[2019-09-16] MEDS: BUPROPION HCL XL 150 MG TAB PO SCH (08:40)
[2019-09-16] MEDS: AMIODARONE HCL 200 MG TAB PO SCH (08:40)
[2019-09-16] MEDS: SACUBITRIL/VALSARTAN 49/51 MG TAB PO SCH ×2 (09:00→21:00)
[2019-09-16] MEDS: LIDOCAINE 4% PATCH TOP SCH (11:39)
[2019-09-16] MEDS: Meropenem 1,000 MG in NA CHLORIDE 0.9% 100 ML IV SCH ×2 (13:17→20:56)
--- NOTE | 2019-09-16 16:02 | P.PN ---
Subjective Date of Service: 09/16/19 Chief Complaint: LOT BETTER MS. Angella Glez IS DOING A LOT BETTER. STRONGER. NO FEVER. SHE IS STARTING TO WALK. SHE HAS PAIN IN KNEES AND BACK. Review of Systems 10-point ROS is otherwise unremarkable General: Weakness, Malaise Physical Examination - Vital Signs Temperature: 97.8 F Blood Pressure: 103/53 Pulse: 60 Respirations: 18 Pulse Ox (%): 91 - Physical Exam General: Oriented x3, Mild distress HEENT: Atraumatic, PERRLA, EOMI Neck: Supple, JVD not distended Respiratory: Clear to auscultation bilaterally, Normal air movement Cardiovascular: Regular rate/rhythm, Normal S1 S2 Gastrointestinal: Normal bowel sounds, No tenderness Musculoskeletal: No tenderness Integumentary: No rashes Neurological: Normal speech, Normal tone, Normal affect Lymphatics: No axilla or inguinal lymphadenopathy - Studies Laboratory Data (last 24 hrs) 09/16/19 04:26: Sodium 138, Potassium 4.1, BUN 16, Creatinine 0.86, Glucose 101 09/15/19 14:40: LDL Cholesterol Direct 94 L Medications List Reviewed: Yes Assessment And Plan - Current Problems (Diagnosis) (1) Sepsis due to gram-negative urinary tract infection Current Visit: Yes Status: Acute Plan: GENTLE HYDRATION. IV ROCEPHIN BID. STABLE FOR NOW. ORDER PT. REHAB POSSIBLE. RESUME ROCEPHIN. CULTURE SENSITIVITY PENDING. STABLE. USUAL BOLUS NOT GIVEN SHE HAS SEVERE CONGESTIVE CARDIOMYOPATHY. (2) Congestive cardiomyopathy Current Visit: Yes Status: Chronic Plan: ECHO WITH DOPPLER FOR FU ON STATUS. (3) Diabetes Current Visit: Yes Status: Chronic Plan: SHE IS MORBIDLY OBESE. WILL LIVE LONGER IF SHE LOSES WEIGHT. SHE IS AWARE. I HAVE DISCUSSED VARIOUS DIET PLANS. START GLIMERIDE. SHE CAN'T TAKE METFORMIN SHE HAS CHF. SHE CAN'T TAKE SGLT INHIBITORS SHE HAS RECURRENT UTI. SHE WILL BE GOOD WITH TRULICITY BUT SHE CAN'T DO IN HOSPITAL AND ALSO SHE CAN'T AFFORD IT. WEIGHT LOSS WILL IMPROVE HER DM. Qualifiers: Diabetes mellitus type: type 2 Diabetes mellitus usp insulin use: without usp use Diabetes mellitus complication status: with circulatory complication Diabetes mellitus complication detail: with other circulatory complications Qualified Code(s): E11.59 - Type 2 diabetes mellitus with other circulatory complications (4) Hypokalemia Current Visit: Yes Status: Acute Plan: ELECTROLYTES ARE ABN SHE HAS SEPSIS. (5) Hypomagnesemia Current Visit: Yes Status: Acute (6) DJD (degenerative joint disease) Current Visit: Yes Status: Acute Plan: AVOID NSAID. SHE KNOWS TO DO SO. TRAMADOL PRN. LIDOCAIN PATCH TOPICAL. WEIGHT REDUCTION ADVISED. Qualifiers: Osteoarthritis location: multiple joints
[2019-09-16] MEDS: Ringers Lactate 1,000 ML IV SCH (16:39)
[2019-09-16] MEDS: carvediloL 12.5 MG TAB PO SCH (17:32)
--- NOTE | 2019-09-16 17:47 | RAD REPORT ---
EXAM DESCRIPTION: RAD - Chest Single View - 09/16/2019 5:35 pm CLINICAL HISTORY: PICC line placement COMPARISON: September 13 FINDINGS: Portable chest was obtained following placement of a right upper extremity PICC line. The catheter tip is in the distal SVC.
[2019-09-17] MEDS: IPRATROPIUM BROM 0.5MG/2.5ML NEB SCH ×4 (01:15→19:55)
[2019-09-17] MEDS: LEVALBUTEROL 1.25 MG/3 ML NEB NEB SCH ×4 (01:15→19:55)
[2019-09-17] MEDS: OMEPRAZOLE 20 MG CAPSULE PO SCH (05:26)
[2019-09-17] MEDS: carvediloL 12.5 MG TAB PO SCH ×2 (05:26→17:02)
[2019-09-17 05:53] LABS: Basophils % 0.6 % (0-1.3); Hematocrit 32.9 % (36.0-45.0); Lymphocytes % 10.7 % (15.3-44.8); MPV 7.8 fL (7.6-11.3); RBC Red Blood Cell Count 4.17 M/uL (3.86-4.86)
[2019-09-17 06:53] LABS: Blood Morphology Comment NOTED (NOT SEEN); Urine White Blood Cell Casts OK
[2019-09-17 06:54] LABS: Anisocytosis 1+; Platelet Estimate ADEQ
[2019-09-17] MEDS: INSULIN -REGULAR HUMAN 50 UNIT/0.5 ML ML SQ SCH ×4 (07:30→22:29)
[2019-09-17] MEDS: LIDOCAINE 4% PATCH TOP SCH (08:12)
[2019-09-17] MEDS: DULOXETINE 30 MG CAP PO SCH ×2 (08:13→22:26)
[2019-09-17] MEDS: predniSONE 10 MG TAB PO SCH (08:13)
[2019-09-17] MEDS: APIXABAN 2.5 MG TABLET PO SCH ×2 (08:13→21:00)
[2019-09-17] MEDS: GLIMEPIRIDE 2 MG TABLET PO SCH (08:13)
[2019-09-17] MEDS: BUPROPION HCL XL 150 MG TAB PO SCH (08:13)
[2019-09-17] MEDS: Meropenem 1,000 MG in NA CHLORIDE 0.9% 100 ML IV SCH ×2 (08:14→22:29)
[2019-09-17] MEDS: SACUBITRIL/VALSARTAN 49/51 MG TAB PO SCH (09:00)
[2019-09-17] MEDS: AMIODARONE HCL 200 MG TAB PO SCH (09:03)
--- NOTE | 2019-09-17 15:59 | ECHO ---
HEIGHT: 5 ft 0 in WEIGHT: 200 lb 0 oz DATE OF STUDY: 09/17/[address]: Justin Shah MD 2-DIMENSIONAL: YES M.MODE: YES DOPPLER: YES COLOR FLOW: YES TDS: YES PORTABLE: NO DEFINITY: NO BUBBLE STUDY: NO DIAGNOSIS: EDEMA, DYSPNEA CARDIAC HISTORY: CATHERIZATION: NO SURGERY: NO PROSTHETIC VALVE: NO PACEMAKER: YES MEASUREMENTS (cm) DIASTOLIC (NORMALS) SYSTOLIC (NORMALS) IVSd 1.1 (0.6-1.2) LA Diam 4.4 (1.9-4.0) LVEF 56% LVIDd 5.2 (3.5-5.7) LVIDs 3.7 (2.0-3.5) %FS 29% LVPWd 0.9 (0.6-1.2) Ao Diam 2.5 (2.0-3.7) 2 DIMENSIONAL ASSESSMENT: RIGHT ATRIUM: NORMAL LEFT ATRIUM: DILATED RIGHT VENTRICLE: PACEMAKER LEFT VENTRICLE: NORMAL TRICUSPID VALVE: NORMAL MITRAL VALVE: NORMAL PULMONIC VALVE: NORMAL AORTIC VALVE: NORMAL PERICARDIAL EFFUSION: NONE AORTIC ROOT: NORMAL LEFT VENTRICULAR WALL MOTION: NORMAL DOPPLER/COLOR FLOW: MILD MITRAL AND TRICUSPID REGURGITATION. MILD PULMONARY HYPERTENSION. ESTIMATED RIGHT VENTRICULAR SYSTOLIC PRESSURE 40 mmHg. COMMENTS: NORMAL LEFT VENTRICULAR EJECTION FRACTION. DILATED LEFT ATRIUM. PACEMAKER IN RIGHT VENTRICLE. MILD MITRAL AND TRICUSPID REGURGITATION. MILD PULMONARY HYPERTENSION. TECHNOLOGIST: Aleks KEITA
[2019-09-17] MEDS: TRAMADOL HCL 50 MG TAB PO PRN (17:02)
[2019-09-17] MEDS ORDERED: TRAMADOL HCL 50 MG TAB PO PRN (21:41)
[2019-09-17] MEDS ORDERED: ACETAMIN/CAFFEINE/BUTALB TAB PO PRN (21:41)
--- NOTE | 2019-09-17 21:50 | P.PN ---
Subjective Date of Service: 09/17/19 Chief Complaint: FEELS BETTER Subjective: Improving MSNilda Perales W IS DOING A LOT BETTER. STRONGER. NO FEVER. SHE IS STARTING TO WALK. SHE HAS PAIN IN KNEES AND BACK. MS PW IS DOING A LOT BETTER. SHE IS STRONGER. STARTED TO DO PT. Review of Systems 10-point ROS is otherwise unremarkable General: Weakness, Malaise Physical Examination - Vital Signs Temperature: 97.9 F Blood Pressure: 143/65 Pulse: 60 Respirations: 16 Pulse Ox (%): 95 - Physical Exam General: Mild distress, Obese HEENT: Atraumatic, PERRLA, EOMI Neck: Supple, JVD not distended Respiratory: Clear to auscultation bilaterally, Normal air movement Cardiovascular: Regular rate/rhythm, Normal S1 S2 Gastrointestinal: Normal bowel sounds, No tenderness Musculoskeletal: No tenderness Integumentary: No rashes Neurological: Normal speech, Normal tone, Normal affect Lymphatics: No axilla or inguinal lymphadenopathy - Studies Laboratory Data (last 24 hrs) 09/17/19 05:38: WBC 9.7, Hgb 10.3 L, Hct 32.9 L, Plt Count 233 D Microbiology Data (last 24 hrs): 09/14/19 12:32 Blood - Blood Aerobic Blood Culture - Final Escherichia Coli Esbl 09/14/19 12:32 Blood - Blood Gram Stain - Final 09/14/19 12:32 Blood - Blood Anaerobic Blood Culture - Final Escherichia Coli Esbl 09/14/19 12:32 Blood - Blood Gram Stain - Final Medications List Reviewed: Yes Assessment And Plan - Current Problems (Diagnosis) (1) Sepsis due to gram-negative urinary tract infection Current Visit: Yes Status: Acute Plan: ESBL CHANGED TO MERREM. STABLE FOR NOW. (2) Congestive cardiomyopathy Current Visit: Yes Status: Chronic Plan: ECHO WITH DOPPLER FOR FU ON STATUS. WILL WATCH LAB RTNLY. SHE IS ACCEPTED FOR REHAB. I GAVE ORDERS TO TRANSFER BUT SHE IS STILL ON SECOND FLOOR. (3) Diabetes Current Visit: Yes Status: Chronic Plan: SHE IS MORBIDLY OBESE. WILL LIVE LONGER IF SHE LOSES WEIGHT. SHE IS AWARE. I HAVE DISCUSSED VARIOUS DIET PLANS. START GLIMERIDE. SHE CAN'T TAKE METFORMIN SHE HAS CHF. SHE CAN'T TAKE SGLT INHIBITORS SHE HAS RECURRENT UTI. SHE WILL BE GOOD WITH TRULICITY BUT SHE CAN'T DO IN HOSPITAL AND ALSO SHE CAN'T AFFORD IT. WEIGHT LOSS WILL IMPROVE HER DM. Qualifiers: Diabetes mellitus type: type 2 Diabetes mellitus assisted insulin use: without assisted use Diabetes mellitus complication status: with circulatory complication Diabetes mellitus complication detail: with other circulatory complications Qualified Code(s): E11.59 - Type 2 diabetes mellitus with other circulatory complications (4) Hypokalemia Current Visit: Yes Status: Acute Plan: ELECTROLYTES ARE ABN SHE HAS SEPSIS. (5) Hypomagnesemia Current Visit: Yes Status: Acute (6) DJD (degenerative joint disease) Current Visit: Yes Status: Acute Plan: AVOID NSAID. SHE KNOWS TO DO SO. TRAMADOL PRN. LIDOCAIN PATCH TOPICAL. WEIGHT REDUCTION ADVISED. Qualifiers: Osteoarthritis location: multiple joints (7) History of atrial fibrillation Current Visit: Yes Status: Chronic Plan: STABLE ON AMIODARONE, ELIQUIS, COREG. NO SYMPTOMS FOR NOW.
[2019-09-18] MEDS: TRAMADOL HCL 50 MG TAB PO PRN ×2 (01:06→11:30)
[2019-09-18 01:19] VITALS: O2SAT 94
[2019-09-18] MEDS: LEVALBUTEROL 1.25 MG/3 ML NEB NEB SCH ×3 (02:25→14:00)
[2019-09-18] MEDS: IPRATROPIUM BROM 0.5MG/2.5ML NEB SCH ×3 (02:25→14:00)
[2019-09-18] MEDS: carvediloL 12.5 MG TAB PO SCH ×2 (06:36→17:49)
[2019-09-18] MEDS: OMEPRAZOLE 20 MG CAPSULE PO SCH (06:38)
[2019-09-18] MEDS: INSULIN -REGULAR HUMAN 50 UNIT/0.5 ML ML SQ SCH ×3 (07:30→16:30)
[2019-09-18] MEDS ORDERED: APIXABAN 5 MG TABLET PO SCH (09:00)
[2019-09-18] MEDS ORDERED: LOSARTAN POTASSIUM 50 MG TABLET PO SCH (09:00)
[2019-09-18] MEDS ORDERED: AMLODIPINE 2.5 MG TAB PO SCH (09:00)
[2019-09-18] MEDS: Meropenem 1,000 MG in NA CHLORIDE 0.9% 100 ML IV SCH (09:56)
[2019-09-18] MEDS: LIDOCAINE 4% PATCH TOP SCH (09:57)
[2019-09-18] MEDS: GLIMEPIRIDE 2 MG TABLET PO SCH (09:57)
[2019-09-18] MEDS: DULOXETINE 30 MG CAP PO SCH (09:58)
[2019-09-18] MEDS: AMIODARONE HCL 200 MG TAB PO SCH (09:58)
[2019-09-18] MEDS: predniSONE 10 MG TAB PO SCH (09:58)
[2019-09-18 11:40] LABS: Vitamin D 1,25-Dihydroxy Total 40 pg/mL (18-72); Vitamin D,1,25-OH2, D2 <8 pg/mL
[2019-09-18 15:37] LABS: MPV 7.7 fL (7.6-11.3)
[2019-09-18 15:51] LABS: Platelet Estimate ADEQ
[2019-09-18 17:51] VITALS: BP 156/56
[2019-09-18 17:53] VITALS: TEMP 97.7
--- NOTE | 2019-10-14 07:50 | P.DS ---
Admission Date: 09/14/19 Discharge Date: 10/14/19 Disposition: TRANSFER TO INPATIENT REHAB Discharge Condition: FAIR Reason for Admission: FEELS BETTER - Problems (1) Sepsis due to gram-negative urinary tract infection Status: Acute (2) Congestive cardiomyopathy Status: Chronic (3) Diabetes Status: Chronic Qualifiers: Diabetes mellitus type: type 2 Diabetes mellitus jail insulin use: without extermination supervisor use Diabetes mellitus complication status: with circulatory complication Diabetes mellitus complication detail: with other circulatory complications Qualified Code(s): E11.59 - Type 2 diabetes mellitus with other circulatory complications (4) Hypokalemia Status: Acute (5) Hypomagnesemia Status: Acute (6) DJD (degenerative joint disease) Status: Acute Qualifiers: Osteoarthritis location: multiple joints (7) History of atrial fibrillation Status: Chronic Brief History of Present Illness: MRS. SARKAR CAME TO OFFICE YESTERDAY, WAS WEAK, DIAPHORETIC BUT BLAMES HER SYMPTOM TO [place]MB[place]. I WAS CALLED TODAY THAT HER BLOOD CULTURES WERE POSITIVE SO I ASKED HER TO GET TO HOSPITAL TO GET ADMITTED. HER URINE IS POSITIVE FOR INFECTION. SHE IS GENERALLY WEAK AND HAS FALLEN 3 TIMES IN A MONTH. I DID CT SCAN OF BRAIN AND WAS TOLD THAT SHE HAS EXCESS FLUID IN FRONTAL REGION AND I HEARD FROM THE [place] SISTER THAT SHE AND SISTER BOTH HAVE THIS DEFICIT FROM IN THE FRONTAL REGION OF BRAIN AND IS OF NO CONSEQUENCE. Hospital Course: MS. BREA SARKAR IS A DIABETIC WITH CONGESTIVE CARDIOMYOPATHY COMES WITH DIAPHORESIS, WEAKNESS, FALLS, WAS FOUND TO HAVE ESBL UROSEPSIS. SHE WAS TREATED WITH MERREM IV, THEN REHAB TOOK HER FOR PT AND SHE WAS DISCHARGED FROM [facility]. Vital Signs/Physical Exam: Temp Pulse Resp BP Pulse Ox 97.7 F 61 18 156/56 H 93 09/18/19 16:00 09/18/19 17:49 09/18/19 16:00 09/18/19 17:49 09/18/19 16:00 Laboratory Data at Discharge: WBC 9.7 K/uL (4.3-10.9) 09/17/19 05:38 Hgb 10.3 g/dL (12.0-15.0) L 09/17/19 05:38 Hct 32.9 % (36.0-45.0) L 09/17/19 05:38 Plt Count 298 K/uL (152-406) D 09/18/19 15:05 PT 14.0 SECONDS (9.5-12.5) H 09/14/19 12:32 INR 1.19 09/14/19 12:32 APTT 27.6 SECONDS (24.3-36.9) 09/14/19 12:32 Sodium 138 mmol/L (136-145) 09/16/19 04:26 Potassium 4.1 mmol/L (3.5-5.1) 09/16/19 04:26 BUN 16 mg/dL (7-18) 09/16/19 04:26 Creatinine 0.86 mg/dL (0.55-1.3) 09/16/19 04:26 Glucose 101 mg/dL (74-106) 09/16/19 04:26 Phosphorus 1.9 mg/dL (2.5-4.9) L 09/14/19 12:32 Magnesium 2.2 mg/dL (1.8-2.4) D 09/15/19 06:32 Total Bilirubin 0.8 mg/dL (0.2-1.0) 09/14/19 12:32 AST 11 U/L (15-37) L 09/14/19 12:32 ALT 25 U/L (12-78) 09/14/19 12:32 Alkaline Phosphatase 98 U/L (45-117) 09/14/19 12:32 LDL Cholesterol Direct 94 mg/dL (100-129) L 09/15/19 14:40 Home Medications: Duloxetine [Cymbalta *] 60 mg PO BID 01/20/18 Omeprazole 20 mg PO DAILY 01/20/18 Amiodarone HCl [Cordarone*] 200 mg PO BID 09/15/19 Bupropion HCl [Bupropion Xl] 150 mg PO DAILY 09/15/19 Carvedilol [Coreg] 25 mg PO BID 09/15/19 Digoxin 125 mcg PO DAILY 09/15/19 Latanoprost [Xalatan] 1 drop EACH EYE BEDTIME 09/15/19 Sacubitril/Valsartan [Entresto 49 mg-51 mg Tablet] 1 tab PO BID 09/15/19 predniSONE [Deltasone*] 20 mg PO DAILY 09/15/19 Apixaban [Eliquis] 5 mg PO BID 09/17/19 Butalb/Acetaminophen/Caffeine [Vjvwyr-Ttzvhdyl-Ippn 50-325-40] 1 each PO BIDP PRN 09/17/19 Tramadol HCl [Ultram] 50 mg PO BIDP PRN 09/17/19 Glimepiride [Amaryl*] 4 mg PO DAILY WITH BREAKFAST tab 09/18/19 Lidocaine 4% Patch [Lidoderm 5% Patch*] 1 patch TOP DAILY patch 09/18/19 Polyethyl Gly 3350 [Glycolax*] 17 gm PO DAILY PRN udbot 09/18/19 Topiramate [Topamax*] 25 mg PO BEDTIME #30 tab 09/28/19 Diet: ADA Activity: Fall precautions
== END 2019-09-18 18:36 | DRG 872 ==
LOC: 2ND 11:57 → OBSVTOIN 13:50
PROVIDERS: ADMIT Internal Medicine; ATTEND Internal Medicine
DX: A41.51 Sepsis due to Escherichia coli [E. coli] (principal); N39.0 Urinary tract infection, site not specified; I42.0 Dilated cardiomyopathy; I48.20 Chronic atrial fibrillation, unspecified; E11.9 Type 2 diabetes mellitus without complications; E87.6 Hypokalemia; E83.42 Hypomagnesemia; M79.7 Fibromyalgia; I11.0 Hypertensive heart disease with heart failure; M15.9 Polyosteoarthritis, unspecified; D33.2 Benign neoplasm of brain, unspecified; Z91.81 History of falling
CPT/HCPCS: 36415; 70450; 71045; 71046; 71260; 74177; 80048; 80076; 81003; 81015; 82043; 82553; 82570; 82652; 82947; 83036; 83605; 83735; 84100; 84132; 84145; 84238; 84443; 84484; 85025; 85049; 85610; 85730; 87040; 87077; 87086; 87088; 87186; 87205; 93306; 94640; 97110; 97116; 97161; 97530; G0378; G0379; J0696; J3475; J7120; J7512; Q9967

== ENCOUNTER 2019-09-17 09:55 | Inpatient (IN) | payer OTHER, MEDICARE ==
--- NOTE | 2019-09-18 14:04 | R.PREADM ---
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 Johnson Frausto M.D. MR# [id number] NAME BREA GILES ADDRESS [address] [facility] [id number] DATE OF 1945 AGE 74 SSN# [id number] GENDER female MARITAL STATUS RACE white ADMIT FROM 02 - [facility] PRE-HOSPITAL LIVING SETTING 01 - Home (private home/apt. board/care, assisted living, residential, transitional living) HOME TYPE AND DETAILS Type of home: single family house # of levels in the residence: 1 # of steps within the residence: 0 # of steps to enter the residence: 0 PRE-HOSPITAL LIVING WITH Alone FAMILY SUPPORT Limited PRIMARY FAMILY CONTACT NAME FABY DAIGLE PRIMARY FAMILY CONTACT PHONE PRIMARY FAMILY CONTACT RELATIONSHIP Sister PHONE PRIMARY FAMILY CONTACT ON ADM.? no IS PRIMARY FAMILY CONTACT AUTH. REP.? no 1ST EMERGENCY CONTACT FABY DAIGLE 1ST CONTACT PHONE 1ST CONTACT RELATIONSHIP Sister PHONE 1ST CONTACT ON ADM. no IS 1ST CONTACT AUTH. REP.? no PHONE 2ND CONTACT ON ADM.? no PATIENT EMPLOYMENT STATUS Retired (for age) PATIENT EMPLOYER No Employer PAYOR INFORMATION: 1ST PAYOR NAME MEDICARE 1ST PAYOR PHONE [phone] 1ST PAYOR INJURY/ILLNESS DUE TO ACCIDENT? No ANOTHER GREEN PARTY RESPONSIBLE? No PRIMARY REHAB/ACUTE DIAGNOSIS: SEPSIS/CHF ONSET DATE 09/14/2019 REHAB IMPAIRMENT CATEGORY (SHAILA): 20 Miscellaneous (Misc) does NOT meet 60% rule PRIMARY DIAGNOSIS-RELATED SURGERIES: No surgeries related to the primary diagnosis were performed. COMORBID REHAB/ACUTE DIAGNOSES: - N/A FIBROMYLOGIA CHF HTN BRAIN TUMOR - BENIGN DIVERTICULITIS SUMMARY OF ACUTE HOSPITALIZATION: Pt. is a 74 yo Right-handed white female. On 09/14/2019 she was admitted to [facility] with diagnosis SEPSIS/CHF. Her impairment category is Debility 16 - Debility (16). Pre-morbidly, Pt. was independent/mod-I in Locomotion, Balance, Safety Awareness, Social Cognition, T ransfers Control, Communication, Endurance, and Self-Care; and she had good Locomotion, Balance, Mckee sfers Control, Self-Care, and Endurance. Currently, she has deficits of Locomotion, Safety Awareness, Balance, Transfers Control, Self-Care, a nd Endurance. Pt. is now referred to [facility] for acute in-patient rehabilitation in order to maximize patient's functional independence in activities of daily living, strength, ROM, and mobi lity. Patient has realistic goal of being discharged at assistance level 6-Tutu to reside at Home with Fam juan josé/Relatives. PAST MEDICAL HISTORY BRAIN TUMOR - BENIGN CHF DIVERTICULITIS FIBROMYLOGIA HTN PAST SURGICAL HISTORY: RT TKIR RAMESH HERNIA LEFT JAW PRECANCEROUS FIBROIDS MEDICATION ALLERGIES: No Known Drug Allergies (NKDA) ENVIRONMENTAL ALLERGIES: - Substance Allergies None Known - Other Allergies None Known CODE STATUS: Full code WEIGHT/HEIGHT/BMI: WEIGHT 200 lbs HEIGHT 5' 0" BMI 39.1 DIET: - Diet Type [facility] 1800kal - Diet - Solid Texture Regular - Diet - Liquid Texture Regular - Tube Feed N/A REVIEW OF SYSTEMS: - Gen Alert and awake Lying in bed No apparent distress Oriented to: person, time, and place - Vital Signs Temperature: 97.2 F SBP/DBP: 130/60 Pulse: 71 Resp: 18 Vital signs stable, afebrile - CVS RRR VITAL SIGNS Temperature: 97.2 F SBP/DBP: 130/60 Pulse: 71 Resp: 18 Vital signs stable, afebrile MEDICATIONS/TREATMENT: Other- See attached MAR (Medication Administration Record). CURRENT SPHINCTER CONTROL: Pre-hospital bladder status: continent # of bladder accidents in the last 7 days prior to screenin Pre-hospital bowel status: continent # of bowel accidents in the last 7 days prior to screenin Last Bowel Movement Date: CURRENT LOCOMOTION STATUS: distance walked 25 feet DETAILED CURRENT FUNCTIONAL STATUS: - Bladder accident frequency: Ind - No accidents in the past 7 days - Bowel accident frequency: Ind - No accidents in the past 7 days - Walking score based on distance walked: 0(N/A) score based on distance walked: 1(<=50ft) - Wheelchair score based on distance traveled: 0(N/A) QI SCORES: - Self-Care A. Eating 05-Setup or clean-up assistance B. Oral hygiene 05-Setup or clean-up assistance C. Toileting hygiene 04-Supervision or touching assistance E. Shower/bathe self 04-Supervision or touching assistance F. Upper body dressing 03-Partial/moderate assistance G. Lower body dressing 03-Partial/moderate assistance H. Putting on/taking off footwear 03-Partial/moderate assistance - Mobility A. Roll left and right 04-Supervision or touching assistance B. Sit to lying 04-Supervision or touching assistance C. Lying to sitting on side of bed 04-Supervision or touching assistance D. Sit to stand 04-Supervision or touching assistance E. Chair/[id number]-[id number] transfer 04-Supervision or touching assistance F. Toilet transfer 04-Supervision or touching assistance G. Car transfer 04-Supervision or touching assistance I. Walk 10 feet 04-Supervision or touching assistance J. Walk 50 feet with two turns 88-Not attempted due to medical condition or safety concerns K. Walk 150 feet 88-Not attempted due to medical condition or safety concerns L. Walking 10 feet on uneven surfaces 88-Not attempted due to medical condition or safety concerns M. 1 step (curb) 88-Not attempted due to medical condition or safety concerns N. 4 steps 88-Not attempted due to medical condition or safety concerns O. 12 steps 88-Not attempted due to medical condition or safety concerns P. Picking up object 88-Not attempted due to medical condition or safety concerns R. Wheel 50 feet with two turns 88-Not attempted due to medical condition or safety concerns S. Wheel 150 feet 04-Supervision or touching assistance - Bladder and Bowel Bladder continence 0-Always continent Bowel continence 0-Always continent - Endurance Fair - Balance Fair - Safety Awareness Fair CURRENT FUNC. DEFICITS: Self-Care, Mobility, Endurance, Balance, and Safety Awareness CURRENT / PREVIOUS ASSISTIVE DEVICES: 3-in-1 Commode [facility] Hospital Bed Rolling Walker Shower Chair Wheelchair HISTORY OF FALLS. HAS THE PATIENT HAD TWO OR MORE FALLS IN THE PAST YEAR OR ANY FALL WITH INJURY IN T HE PAST YEAR?: No PRIOR SURGERY. DID THE PATIENT HAVE MAJOR SURGERY DURING THE 100 DAYS PRIOR TO ADMISSION?: No THERAPY NOTES FROM ACUTE CARE: Attached. SPECIAL NEEDS: - Safety Concerns Skin breakdown precautions needed due to skin breakdown risk PATIENT NEEDS ACTIVE AND ONGOING THERAPEUTIC INTERVENTION OF MULTIPLE THERAPY DISCIPLINES, INCLUDING: - Dietary and Nutrition Adequate Nutrition. Nutritional Education. Nutritional Supplements. PATIENT NEEDS CLOSE MEDICAL SUPERVISION BY A REHABILITATION PHYSICIAN FOR: Coordination of Treatment Team Medical and Co-Morbidity Management PATIENT REQUIRES 24X7 REHAB NURSING FOR MEDICAL AND FUNCTIONAL MGT. 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 - Consensus on plan Discharge plan has been discussed with primary caregiver. Patient/Family is in agreement with the albino n. Primary caregiver is in agreement with the plan. - Patient/Family Goals Return home with assistance. - Planned Living Setting Upon Discharge Home, to live with Family/Relatives. Transitional Living. Primary caregiver: Pt self. RECOMMENDED CARE LEVEL: IRF RECOMMENDATION DETAILS: Recommended Admission to Comprehensive Rehabilitation Program to Increase Functional [place] SCREENER'S COMPLETENESS CONFIRMATION: - Screening Confirmation The patient data collection on this preadmission screening form is finished PHYSICIANS REVIEW AND ADMISSION DETERMINATION Admit - Based on my review of the Pre-Admission Screening results, in my medical judgment and experie nce, I concur with the findings and recommend admission to [facility], as this patient requires an IRF level of care. SIGNATURE PANEL: Clinical Liaison - [electronically] signed by Ru Baxter on 09/17/2019 at 12:34 (CHIEF MECHANICAL ENGINEER) Clinical Liaison - [electronically] signed by Marilyn Lainez on 09/17/2019 at 12:39 (CHIEF MECHANICAL ENGINEER) Physician Reviewer - [electronically] signed by Dr. Johnson Frausto M.D. on 09/18/2019 at 14:03 (CHIEF MECHANICAL ENGINEER )
--- OUTSIDE RECORDS SUMMARY | 2019-09-18 18:49 | XMS REPORT ---
:1945 [facility] [address] [place] [address] Care Team Providers Name Role Phone Unavailable [...] (test code=GLUBED) 130 MG/DL 60-99 BASIC METABOLIC [id number] 06:54:00 Test Item Value Reference Range Comments [...] (test code=CA) 9.8 MG/DL 8.4-10.2 BASIC METABOLIC [id number] 06:53:00 Test Item Value Reference Range Comments [...] CALCIUM (test code=CA) MG/DL 8.7-9.7 BASIC METABOLIC [id number] 06:50:00 Test Item Value Reference Range Comments SODIUM (test code=NA) 130 MMOL/L 137-145 POTASSIUM (test code=K) 4.1 MMOL/L 3.5-5.1 CHLORIDE (test code=CL) 91 MMOL/L 98-107 CARBON DIOXIDE (test code=CO2) MMOL/L 22-30 GLUCOSE (test code=GLU) MG/DL 74-106 BLOOD UREA NITROGEN (test code=BUN) MG/DL 7-17 GLOMERULAR FILTRATION RATE (test code=GFR) CREATININE (test code=CREAT) MG/DL 0.52-1.04 CALCIUM (test code=CA) MG/DL 8.7-9.7 CBC W/AUTO [id number] 06:24:00 Test Item Value Reference Range Comments [...] (test code=NRBC#) 0.00 K/mm3 0.0-0.1 GLUCOSE BEDSIDE [id number] 05:35:00 Test Item Value Reference Range Comments GLUCOSE BEDSIDE TESTING (test code=GLUBED) 161 MG/DL 60-99 UR SODIUM [id number] 00:53:00 Test Item Value Reference Range Comments UR SODIUM RANDOM (test code=MARIAH) 13 MMOL/L 27-287 UR OSMOLALITY [id number] 00:53:00 Test Item Value Reference Range Comments UR OSMOLALITY RANDOM (test code=OSMOU) 310.5 MOS/KG 300-1200 UR SODIUM [id number] 23:08:00 Test Item Value Reference Range Comments UR SODIUM RANDOM (test code=MARIAH) 13 MMOL/L 27-287 UR OSMOLALITY [id number] 23:08:00 Test Item Value Reference Range Comments UR OSMOLALITY RANDOM (test code=OSMOU) MOS/KG 300-1200 OSMOLALITY [id number] 19:19:00 Test Item Value Reference Range Comments OSMOLALITY SERUM (test code=OSMO) 301 mOsm/kg 275-295 GLUCOSE BEDSIDE [id number] 16:55:00 Test Item Value Reference Range Comments GLUCOSE BEDSIDE TESTING (test code=GLUBED) 294 MG/DL 60-99 GLUCOSE BEDSIDE [id number] 12:44:00 Test Item Value Reference Range Comments GLUCOSE BEDSIDE TESTING (test code=GLUBED) 202 MG/DL 60-99 GLUCOSE BEDSIDE [id number] 11:17:00 Test Item Value Reference Range Comments GLUCOSE BEDSIDE TESTING (test code=GLUBED) 266 MG/DL 60-99 GLUCOSE BEDSIDE [id number] 11:16:00 Test Item Value Reference Range Comments GLUCOSE BEDSIDE TESTING (test code=GLUBED) 112 MG/DL 60-99 - XR CHEST [id number] 08:11:00 Patient Name: BREA GILES Unit No: [id number] EXAMS: CPT CODE: [id number] XR CHEST 1V 69698 Site ID: [id number] EXAMINATION: - XR CHEST [...] Wendy Orig Print D/T: S: 07/20/2019 (0814) [facility] NAME:BREA GILES [address] PHYS: [email or web address] - [place] [address] : 1945 AGE: 73 SEX: F LOC: Darrell Dobbins PHONE #: [phone] EXAM DATE: 07/20/2019 STATUS: ADM IN FAX #: [phone] RADIOLOGY NO: PAGE 1 Signed ReportBASIC METABOLIC [id number] 05:45:00 Test Item Value Reference Range Comments [...] 0.52-1.04 CALCIUM (test code=CA) 9.5 MG/DL 8.4-10.2 [id number] 05:41:00 Test Item Value Reference Range Comments DIGOXIN (test code=DIG) 0.6 NG/ML 0.8-2.0 BASIC METABOLIC [id number] 05:25:00 Test Item Value Reference Range Comments [...] CALCIUM (test code=CA) MG/DL 8.7-9.7 BASIC METABOLIC [id number] 05:22:00 Test Item Value Reference Range Comments SODIUM (test code=NA) 129 MMOL/L 137-145 POTASSIUM (test code=K) 3.6 MMOL/L 3.5-5.1 CHLORIDE (test code=CL) 88 MMOL/L 98-107 CARBON DIOXIDE (test code=CO2) MMOL/L 22-30 GLUCOSE (test code=GLU) MG/DL 74-106 BLOOD UREA NITROGEN (test code=BUN) MG/DL 7-17 GLOMERULAR FILTRATION RATE (test code=GFR) CREATININE (test code=CREAT) MG/DL 0.52-1.04 CALCIUM (test code=CA) MG/DL 8.7-9.7 CBC W/AUTO [id number] 05:00:00 Test Item Value Reference Range Comments [...] # (test code=NRBC#) 0.00 K/mm3 0.0-0.1 URINALYSIS [id number] 21:50:00 Test Item Value Reference Range Comments [...] Criteria Culture Chk SOURCE OF URINE: VOIDEDUA [id number] 21:50:00 Test Item Value Reference Range Comments UA RBC (test code=RBCU) 0-3 RBC/HPF 0-3 UA WBC (test code=XWBCU) 5-9 WBC/HPF 0-5 UA EPITHELIAL CELLS (test code=EPIU) FEW EPI/HPF FEW UA BACTERIA (test code=XBACU) FEW NONE SOURCE OF URINE: VOIDEDURINALYSIS [id number] 21:43:00 Test Item Value Reference Range Comments [...] Criteria Culture Chk SOURCE OF URINE: VOIDEDUA [id number] 21:43:00 Test Item Value Reference Range Comments UA RBC (test code=RBCU) RBC/HPF 0-3 UA WBC (test code=XWBCU) WBC/HPF 0-5 UA EPITHELIAL CELLS (test code=EPIU) EPI/HPF FEW UA BACTERIA (test code=XBACU) NONE SOURCE OF URINE: VOIDEDURINALYSIS [id number] 21:43:00 Test Item Value Reference Range Comments [...] Criteria Culture Chk SOURCE OF URINE: VOIDEDUA [id number] 21:43:00 Test Item Value Reference Range Comments UA RBC (test code=RBCU) RBC/HPF 0-3 UA WBC (test code=XWBCU) WBC/HPF 0-5 UA EPITHELIAL CELLS (test code=EPIU) EPI/HPF FEW UA BACTERIA (test code=XBACU) NONE SOURCE OF URINE: VOIDEDGLUCOSE BEDSIDE [id number] 21:08:00 Test Item Value Reference Range Comments GLUCOSE BEDSIDE TESTING (test code=GLUBED) 202 MG/DL 60-99 GLUCOSE BEDSIDE [id number] 16:25:00 Test Item Value Reference Range Comments GLUCOSE BEDSIDE TESTING (test code=GLUBED) 191 MG/DL 60-99 GLUCOSE BEDSIDE [id number] 07:50:00 Test Item Value Reference Range Comments GLUCOSE BEDSIDE TESTING (test code=GLUBED) 173 MG/DL 60-99 BASIC METABOLIC [id number] 05:13:00 Test Item Value Reference Range Comments [...] (test code=CA) 9.5 MG/DL 8.4-10.2 BASIC METABOLIC [id number] 05:08:00 Test Item Value Reference Range Comments SODIUM (test code=NA) 130 MMOL/L 137-145 POTASSIUM (test code=K) 3.7 MMOL/L 3.5-5.1 CHLORIDE (test code=CL) 90 MMOL/L 98-107 CARBON DIOXIDE (test code=CO2) MMOL/L 22-30 GLUCOSE (test code=GLU) MG/DL 74-106 BLOOD UREA NITROGEN (test code=BUN) MG/DL 7-17 GLOMERULAR FILTRATION RATE (test code=GFR) CREATININE (test code=CREAT) MG/DL 0.52-1.04 CALCIUM (test code=CA) MG/DL 8.7-9.7 CBC W/AUTO [id number] 04:54:00 Test Item Value Reference Range Comments [...] (test code=NRBC#) 0.00 K/mm3 0.0-0.1 GLUCOSE BEDSIDE [id number] 19:57:00 Test Item Value Reference Range Comments GLUCOSE BEDSIDE TESTING (test code=GLUBED) 171 MG/DL 60-99 GLUCOSE BEDSIDE [id number] 16:05:00 Test Item Value Reference Range Comments GLUCOSE BEDSIDE TESTING (test code=GLUBED) 286 MG/DL 60-99 GLUCOSE BEDSIDE [id number] 12:28:00 Test Item Value Reference Range Comments GLUCOSE BEDSIDE TESTING (test code=GLUBED) 234 MG/DL 60-99 GLUCOSE BEDSIDE [id number] 08:29:00 Test Item Value Reference Range Comments GLUCOSE BEDSIDE TESTING (test code=GLUBED) 196 MG/DL 60-99 B-TYPE NATRIURETIC [id number] 04:56:00 Test Item Value Reference Range Comments B-TYPE NATRIURETIC PEPTIDE (test code=BNP) 371.0 PG/ML 0-100 COMPREHENSIVE METABOLIC [id number] 04:47:00 Test Item Value Reference Range Comments [...] ALKALINE PHOSPHATASE (test 81 UNITS/L 38-126 code=ALKP) [id number] 04:47:00 Test Item Value Reference Range Comments MAGNESIUM (test code=MAG) 1.9 MG/DL 1.6-2.3 COMPREHENSIVE METABOLIC [id number] 04:45:00 Test Item Value Reference Range Comments [...] 9-52 ALKALINE PHOSPHATASE (test code=ALKP) UNITS/L 38-126 [id number] 04:45:00 Test Item Value Reference Range Comments MAGNESIUM (test code=MAG) MG/DL 1.6-2.3 COMPREHENSIVE METABOLIC [id number] 04:44:00 Test Item Value Reference Range Comments [...] 9-52 ALKALINE PHOSPHATASE (test code=ALKP) UNITS/L 38-126 [id number] 04:44:00 Test Item Value Reference Range Comments MAGNESIUM (test code=MAG) MG/DL 1.6-2.3 CBC W/AUTO [id number] 04:25:00 Test Item Value Reference Range Comments [...] (test code=NRBC#) 0.00 K/mm3 0.0-0.1 GLUCOSE BEDSIDE [id number] 20:14:00 Test Item Value Reference Range Comments GLUCOSE BEDSIDE TESTING (test code=GLUBED) 173 MG/DL 60-99 [id number] 18:39:00 Test Item Value Reference Range Comments TROPONIN-I (test code=TROPI) 0.041 NG/ML 0.012-0.033 B-TYPE NATRIURETIC [id number] 16:46:00 Test Item Value Reference Range Comments B-TYPE NATRIURETIC PEPTIDE (test code=BNP) 336.0 PG/ML 0-100 ADD ONSpecimen comments: Can add to blood in [id number] 16:38: 00 Test Item Value Reference Range Comments TROPONIN-I (test code=TROPI) 0.042 NG/ML 0.012-0.033 COMPREHENSIVE METABOLIC [id number] 13:48:00 Test Item Value Reference Range Comments [...] ALKALINE PHOSPHATASE (test 79 UNITS/L 38-126 code=ALKP) [id number] 13:48:00 Test Item Value Reference Range Comments PHOSPHOROUS (test code=PHOS) 3.6 MG/DL 2.5-4.5 [id number] 13:48:00 Test Item Value Reference Range Comments MAGNESIUM (test code=MAG) 2.1 MG/DL 1.6-2.3 COMPREHENSIVE METABOLIC [id number] 13:39:00 Test Item Value Reference Range Comments [...] 9-52 ALKALINE PHOSPHATASE (test UNITS/L 38-126 code=ALKP) [id number] 13:39:00 Test Item Value Reference Range Comments PHOSPHOROUS (test code=PHOS) MG/DL 2.5-4.5 [id number] 13:39:00 Test Item Value Reference Range Comments MAGNESIUM (test code=MAG) MG/DL 1.6-2.3 COMPREHENSIVE METABOLIC [id number] 13:37:00 Test Item Value Reference Range Comments [...] 9-52 ALKALINE PHOSPHATASE (test code=ALKP) UNITS/L 38-126 [id number] 13:37:00 Test Item Value Reference Range Comments PHOSPHOROUS (test code=PHOS) MG/DL 2.5-4.5 [id number] 13:37:00 Test Item Value Reference Range Comments MAGNESIUM (test code=MAG) MG/DL 1.6-2.3 - XR CHEST [id number] 13:36:00 Patient Name: BREA GILES Unit No: [id number] EXAMS: CPT CODE: [id number] XR CHEST 1V 61557 Chest Radiograph History: pain Comparison: July 02, 2019 Location: R16 A single frontal view of the chest is submitted. The heart appears unchanged in size. Pulmonary vasculature is unremarkable. The visualized lung ryan appear to be free of disease. The bones appear unchanged. IMPRESSION: There is no radiographic evidence of acute cardiopulmonary disease. at 9128 Reported and signed by: Niko Howell MD CC: ANATOLIY QUINTERO DO; Viviana Thompson MD Technologist: RT Syl(R) Transcrpt Date/Tm/Trnsp : 07/17/2019 (9982) t.SDR.PMT Orig Print D/T: S: 07/17/2019 ( 7956) [facility] NAME: BREA GILES [address] PHYS: [place] [address] : 1944 AGE: 73 SEX: F LOC: Z.ERS PHONE #: [phone] EXAM DATE: 07/17/2019 STATUS: PRE ER FAX #: [phone] RADIOLOGY NO: PAGE 1 Signed ReportPROTHROMBIN [id number] 13:35:00 Test Item Value Reference Range Comments [...] recurrent systemic embolism. 3.0 - 4.5 PTT [id number] 13:35:00 Test Item Value Reference Range Comments PTT ACTIVATED (test code=APTT) 31.5 SECONDS 22.0-33.0 CBC W/AUTO [id number] 13:34:00 Test Item Value Reference Range Comments [...] (test code=NRBC#) 0.00 K/mm3 0.0-0.1 TROPONIN I [id number] 13:16:00 Test Item Value Reference Range Comments TROPONIN I RAPID (test code=TROPIRAP) 0.04 NG/ML 0.00-0.05 GLUCOSE BEDSIDE [id number] 17:02:00 Test Item Value Reference Range Comments GLUCOSE BEDSIDE TESTING (test code=GLUBED) 232 MG/DL 60-99 BUN [id number] 16:53:00 Test Item Value Reference Range Comments BLOOD UREA NITROGEN (test 63 MG/DL 04-18 code=BUN) GLOMERULAR FILTRATION RATE 34 Reporting units: ml/min/1.73 (test code=GFR) m2 (Modified MDRD Formula)Reference Range: > or=60 ml/min/1.73 m2 CREATININE (test code=CREAT) 1.50 MG/DL 0.52-1.04 ENTER RACE; UGLUCOSE BEDSIDE [id number] 11:52:00 Test Item Value Reference Range Comments GLUCOSE BEDSIDE TESTING (test code=GLUBED) 149 MG/DL 60-99 GLUCOSE BEDSIDE [id number] 10:27:00 Test Item Value Reference Range Comments GLUCOSE BEDSIDE TESTING (test code=GLUBED) 145 MG/DL 60-99 GLUCOSE BEDSIDE [id number] 21:19:00 Test Item Value Reference Range Comments GLUCOSE BEDSIDE TESTING (test code=GLUBED) 162 MG/DL 60-99 GLUCOSE BEDSIDE [id number] 16:42:00 Test Item Value Reference Range Comments GLUCOSE BEDSIDE TESTING (test code=GLUBED) 228 MG/DL 60-99 GLUCOSE BEDSIDE [id number] 11:58:00 Test Item Value Reference Range Comments GLUCOSE BEDSIDE TESTING (test code=GLUBED) 228 MG/DL 60-99 GLUCOSE BEDSIDE [id number] 07:45:00 Test Item Value Reference Range Comments GLUCOSE BEDSIDE TESTING (test code=GLUBED) 129 MG/DL 60-99 GLUCOSE BEDSIDE [id number] 20:35:00 Test Item Value Reference Range Comments GLUCOSE BEDSIDE TESTING (test code=GLUBED) 223 MG/DL 60-99 GLUCOSE BEDSIDE [id number] 16:27:00 Test Item Value Reference Range Comments GLUCOSE BEDSIDE TESTING (test code=GLUBED) 222 MG/DL 60-99 GLUCOSE BEDSIDE [id number] 13:00:00 Test Item Value Reference Range Comments GLUCOSE BEDSIDE TESTING (test code=GLUBED) 212 MG/DL 60-99 GLUCOSE BEDSIDE [id number] 10:50:00 Test Item Value Reference Range Comments GLUCOSE BEDSIDE TESTING (test code=GLUBED) 131 MG/DL 60-99 GLUCOSE BEDSIDE [id number] 10:50:00 Test Item Value Reference Range Comments GLUCOSE BEDSIDE TESTING (test code=GLUBED) 177 MG/DL 60-99 GLUCOSE BEDSIDE [id number] 20:29:00 Test Item Value Reference Range Comments GLUCOSE BEDSIDE TESTING (test code=GLUBED) 247 MG/DL 60-99 GLUCOSE BEDSIDE [id number] 16:22:00 Test Item Value Reference Range Comments GLUCOSE BEDSIDE TESTING (test code=GLUBED) 182 MG/DL 60-99 GLUCOSE BEDSIDE [id number] 11:20:00 Test Item Value Reference Range Comments GLUCOSE BEDSIDE TESTING (test code=GLUBED) 176 MG/DL 60-99 GLUCOSE BEDSIDE [id number] 20:14:00 Test Item Value Reference Range Comments GLUCOSE BEDSIDE TESTING (test code=GLUBED) 187 MG/DL 60-99 GLUCOSE BEDSIDE [id number] 16:20:00 Test Item Value Reference Range Comments GLUCOSE BEDSIDE TESTING (test code=GLUBED) 200 MG/DL 60-99 Notified Nurse~ GLUCOSE BEDSIDE [id number] 12:15:00 Test Item Value Reference Range Comments GLUCOSE BEDSIDE TESTING (test code=GLUBED) 180 MG/DL 60-99 GLUCOSE BEDSIDE [id number] 10:59:00 Test Item Value Reference Range Comments GLUCOSE BEDSIDE TESTING (test code=GLUBED) 230 MG/DL 60-99 GLUCOSE BEDSIDE [id number] 10:58:00 Test Item Value Reference Range Comments GLUCOSE BEDSIDE TESTING (test code=GLUBED) 226 MG/DL 60-99 GLUCOSE BEDSIDE [id number] 07:20:00 Test Item Value Reference Range Comments GLUCOSE BEDSIDE TESTING (test code=GLUBED) 146 MG/DL 60-99 GLUCOSE BEDSIDE [id number] 20:40:00 Test Item Value Reference Range Comments GLUCOSE BEDSIDE TESTING (test code=GLUBED) 214 MG/DL 60-99 GLUCOSE BEDSIDE [id number] 17:09:00 Test Item Value Reference Range Comments GLUCOSE BEDSIDE TESTING (test code=GLUBED) 236 MG/DL 60-99 GLUCOSE BEDSIDE [id number] 12:08:00 Test Item Value Reference Range Comments GLUCOSE BEDSIDE TESTING (test code=GLUBED) 161 MG/DL 60-99 GLUCOSE BEDSIDE [id number] 09:16:00 Test Item Value Reference Range Comments GLUCOSE BEDSIDE TESTING (test code=GLUBED) 138 MG/DL 60-99 GLUCOSE BEDSIDE [id number] 17:05:00 Test Item Value Reference Range Comments GLUCOSE BEDSIDE TESTING (test code=GLUBED) 245 MG/DL 60-99 GLUCOSE BEDSIDE [id number] 12:32:00 Test Item Value Reference Range Comments GLUCOSE BEDSIDE TESTING (test code=GLUBED) 131 MG/DL 60-99 GLUCOSE BEDSIDE [id number] 07:29:00 Test Item Value Reference Range Comments GLUCOSE BEDSIDE TESTING (test code=GLUBED) 134 MG/DL 60-99 GLUCOSE BEDSIDE [id number] 02:24:00 Test Item Value Reference Range Comments GLUCOSE BEDSIDE TESTING (test code=GLUBED) 149 MG/DL 60-99 GLUCOSE BEDSIDE [id number] 16:14:00 Test Item Value Reference Range Comments GLUCOSE BEDSIDE TESTING (test code=GLUBED) 186 MG/DL 60-99 Notified Nurse~ GLUCOSE BEDSIDE [id number] 12:52:00 Test Item Value Reference Range Comments GLUCOSE BEDSIDE TESTING (test code=GLUBED) 160 MG/DL 60-99 GLUCOSE BEDSIDE [id number] 07:30:00 Test Item Value Reference Range Comments GLUCOSE BEDSIDE TESTING (test code=GLUBED) 142 MG/DL 60-99 COMPREHENSIVE METABOLIC [id number] 06:56:00 Test Item Value Reference Range Comments [...] ALKALINE PHOSPHATASE (test 89 UNITS/L 38-126 code=ALKP) [id number] 06:56:00 Test Item Value Reference Range Comments MAGNESIUM (test code=MAG) 1.9 MG/DL 1.6-2.3 COMPREHENSIVE METABOLIC [id number] 06:52:00 Test Item Value Reference Range Comments [...] 9-52 ALKALINE PHOSPHATASE (test code=ALKP) UNITS/L 38-126 [id number] 06:52:00 Test Item Value Reference Range Comments MAGNESIUM (test code=MAG) MG/DL 1.6-2.3 COMPREHENSIVE METABOLIC [id number] 06:51:00 Test Item Value Reference Range Comments [...] 9-52 ALKALINE PHOSPHATASE (test code=ALKP) UNITS/L 38-126 [id number] 06:51:00 Test Item Value Reference Range Comments MAGNESIUM (test code=MAG) MG/DL 1.6-2.3 CBC W/AUTO [id number] 06:25:00 Test Item Value Reference Range Comments [...] (test code=NRBC#) 0.00 K/mm3 0.0-0.1 GLUCOSE BEDSIDE [id number] 19:59:00 Test Item Value Reference Range Comments GLUCOSE BEDSIDE TESTING (test code=GLUBED) 184 MG/DL 60-99 Notified Nurse~ GLUCOSE BEDSIDE [id number] 16:28:00 Test Item Value Reference Range Comments GLUCOSE BEDSIDE TESTING (test code=GLUBED) 245 MG/DL 60-99 Notified Nurse~ GLUCOSE BEDSIDE [id number] 13:02:00 Test Item Value Reference Range Comments GLUCOSE BEDSIDE TESTING (test code=GLUBED) 204 MG/DL 60-99 GLUCOSE BEDSIDE [id number] 07:00:00 Test Item Value Reference Range Comments GLUCOSE BEDSIDE TESTING (test code=GLUBED) 151 MG/DL 60-99 GLUCOSE BEDSIDE [id number] 06:33:00 Test Item Value Reference Range Comments GLUCOSE BEDSIDE TESTING (test code=GLUBED) 236 MG/DL 60-99 Notified Nurse~ GLUCOSE BEDSIDE [id number] 12:07:00 Test Item Value Reference Range Comments GLUCOSE BEDSIDE TESTING (test code=GLUBED) 167 MG/DL 60-99 GLUCOSE BEDSIDE [id number] 08:20:00 Test Item Value Reference Range Comments GLUCOSE BEDSIDE TESTING (test code=GLUBED) 140 MG/DL 60-99 BASIC METABOLIC [id number] 06:11:00 Test Item Value Reference Range Comments [...] CALCIUM (test code=CA) MG/DL 8.7-9.7 BASIC METABOLIC [id number] 06:11:00 Test Item Value Reference Range Comments [...] (test code=CA) 9.5 MG/DL 8.4-10.2 BASIC METABOLIC [id number] 06:08:00 Test Item Value Reference Range Comments SODIUM (test code=NA) 134 MMOL/L 137-145 POTASSIUM (test code=K) 4.0 MMOL/L 3.5-5.1 CHLORIDE (test code=CL) 99 MMOL/L 98-107 CARBON DIOXIDE (test code=CO2) MMOL/L 22-30 GLUCOSE (test code=GLU) MG/DL 74-106 BLOOD UREA NITROGEN (test code=BUN) MG/DL 7-17 GLOMERULAR FILTRATION RATE (test code=GFR) CREATININE (test code=CREAT) MG/DL 0.52-1.04 CALCIUM (test code=CA) MG/DL 8.7-9.7 GLUCOSE BEDSIDE [id number] 20:04:00 Test Item Value Reference Range Comments GLUCOSE BEDSIDE TESTING (test code=GLUBED) 226 MG/DL 60-99 GLUCOSE BEDSIDE [id number] 16:25:00 Test Item Value Reference Range Comments GLUCOSE BEDSIDE TESTING (test code=GLUBED) 270 MG/DL 60-99 GLUCOSE BEDSIDE [id number] 13:02:00 Test Item Value Reference Range Comments GLUCOSE BEDSIDE TESTING (test code=GLUBED) 137 MG/DL 60-99 GLUCOSE BEDSIDE [id number] 12:09:00 Test Item Value Reference Range Comments GLUCOSE BEDSIDE TESTING (test code=GLUBED) 220 MG/DL 60-99 - CTA CHEST FOR [id number] 10:59:00 Patient Name: BREA GILES Unit No: [id number] EXAMS: CPT CODE: [id number] [place] [id number] CTA Chest with contrast Location: B2 Clinical [...] Viviana Thompson MD Technologist: Ian Aguilar, RT(R)(CT)(MRI); [facility] CTDI: DLP: Trnscrpt : 07/03/2019 (1059) t.SDR.RB24 [facility] NAME: TAVIA GILESJEFF Robledo [address] PHYS: [email or web address] - [place] [address] : 1945 AGE: 73 SEX: F LOC: Z.365 A PHONE #: [phone] EXAM DATE : 07/03/2019 STATUS: ADM IN FAX #: [phone] RAD #: D/C DT PAGE 1 Signed Report Patient Name: BREA GILES Venkat Unit No: [id number] EXAMS: CPT CODE: [id number] [place] [address] < Continued> Orig Print D/T: S: 07/03/2019 (1102) [facility] NAME: BREA GILES [address] [address] PHYS: [email or web address] [place] [address] : 1945 AGE: 73 SEX: F LOC: Z.365 A PHONE #:[phone] EXAM DATE: 07/03/2019 STATUS: ADM IN FAX #: [phone] RAD #: D/C DT PAGE 2 Signed ReportBASIC METABOLIC [id number] 06:20:00 Test Item Value Reference Range Comments [...] (test code=CA) 9.6 MG/DL 8.4-10.2 CBC W/AUTO [id number] 05:42:00 Test Item Value Reference Range Comments [...] # (test code=NRBC#) 0.00 K/mm3 0.0-0.1 DIFFERENTIAL [id number] 05:42:00 Test Item Value Reference Range Comments RBC MORPHOLOGY REQUIRED (test code=RBCM) PLATELET ESTIMATE (test code=PLTEST) ADEQUATE PLATELET MORPHOLOGY (test code=PLTMORPH) NORMAL CBC W/AUTO [id number] 05:42:00 Test Item Value Reference Range Comments [...] # (test code=NRBC#) 0.00 K/mm3 0.0-0.1 DIFFERENTIAL [id number] 05:42:00 Test Item Value Reference Range Comments RBC MORPHOLOGY REQUIRED (test code=RBCM) PLATELET ESTIMATE (test code=PLTEST) ADEQUATE PLATELET MORPHOLOGY (test code=PLTMORPH) NORMAL GLUCOSE BEDSIDE [id number] 20:44:00 Test Item Value Reference Range Comments GLUCOSE BEDSIDE TESTING (test code=GLUBED) 191 MG/DL 60-99 GLUCOSE BEDSIDE [id number] 19:09:00 Test Item Value Reference Range Comments GLUCOSE BEDSIDE TESTING (test code=GLUBED) 132 MG/DL 60-99 - XR CHEST [id number] 18:49:00 Patient Name: BREA GILES Unit No: [id number] EXAMS: CPT CODE: [id number] XR CHEST 1V [id number] LOCATION CODE: H 31 CHEST AP HISTORY: [...] by: Guerline Hamlin MD CC: Nick Cabrera; Alxeandr Hawkins; Viviana Thompson MD Technologist: Pavithra Crane RT(R) Transcrpt Date/Tm/Trnsp: 07/02/2019 (184) [email or web address] Print D/T: S: 2018 (185) [facility] NAME: BREA GILES [id number] [address] PHYS: [place] [address] : 1945 AGE: 73 SEX: F LOC: [id number] PHONE #: [phone] EXAM DATE: 07/02/2019 STATUS: ADM IN FAX #: [phone] RADIOLOGY NO: PAGE 1 Signed [id number] 18:23:00 Test Item Value Reference Range Comments ACT-ISTAT (test code=ACTI) 103 SEC 74-137 GLUCOSE BEDSIDE [id number] 07:48:00 Test Item Value Reference Range Comments GLUCOSE BEDSIDE TESTING (test code=GLUBED) 160 MG/DL 60-99 GLUCOSE BEDSIDE [id number] 07:16:00 Test Item Value Reference Range Comments GLUCOSE BEDSIDE TESTING (test code=GLUBED) 134 MG/DL 60-99 GLUCOSE BEDSIDE [id number] 20:51:00 Test Item Value Reference Range Comments GLUCOSE BEDSIDE TESTING (test code=GLUBED) 142 MG/DL 60-99 GLUCOSE BEDSIDE [id number] 16:16:00 Test Item Value Reference Range Comments GLUCOSE BEDSIDE TESTING (test code=GLUBED) 156 MG/DL 60-99 GLUCOSE BEDSIDE [id number] 16:16:00 Test Item Value Reference Range Comments GLUCOSE BEDSIDE TESTING (test code=GLUBED) 184 MG/DL 60-99 BASIC METABOLIC [id number] 13:13:00 Test Item Value Reference Range Comments [...] (test code=CA) 9.3 MG/DL 8.4-10.2 BASIC METABOLIC [id number] 13:02:00 Test Item Value Reference Range Comments [...] CALCIUM (test code=CA) MG/DL 8.7-9.7 BASIC METABOLIC [id number] 13:00:00 Test Item Value Reference Range Comments SODIUM (test code=NA) 137 MMOL/L 137-145 POTASSIUM (test code=K) 4.3 MMOL/L 3.5-5.1 CHLORIDE (test code=CL) 102 MMOL/L 98-107 CARBON DIOXIDE (test code=CO2) MMOL/L 22-30 GLUCOSE (test code=GLU) MG/DL 74-106 BLOOD UREA NITROGEN (test code=BUN) MG/DL 7-17 GLOMERULAR FILTRATION RATE (test code=GFR) CREATININE (test code=CREAT) MG/DL 0.52-1.04 CALCIUM (test code=CA) MG/DL 8.7-9.7 BASIC METABOLIC [id number] 12:59:00 Test Item Value Reference Range Comments SODIUM (test code=NA) 137 MMOL/L 137-145 POTASSIUM (test code=K) MMOL/L 3.5-5.1 CHLORIDE (test code=CL) 102 MMOL/L 98-107 CARBON DIOXIDE (test code=CO2) MMOL/L 22-30 GLUCOSE (test code=GLU) MG/DL 74-106 BLOOD UREA NITROGEN (test code=BUN) MG/DL 7-17 GLOMERULAR FILTRATION RATE (test code=GFR) CREATININE (test code=CREAT) MG/DL 0.52-1.04 CALCIUM (test code=CA) MG/DL 8.7-9.7 GLUCOSE BEDSIDE [id number] 06:32:00 Test Item Value Reference Range Comments GLUCOSE BEDSIDE TESTING (test code=GLUBED) 144 MG/DL 60-99 GLUCOSE BEDSIDE [id number] 22:00:00 Test Item Value Reference Range Comments GLUCOSE BEDSIDE TESTING (test code=GLUBED) 154 MG/DL 60-99 GLUCOSE BEDSIDE [id number] 16:57:00 Test Item Value Reference Range Comments GLUCOSE BEDSIDE TESTING (test code=GLUBED) 124 MG/DL 60-99 GLUCOSE BEDSIDE [id number] 16:57:00 Test Item Value Reference Range Comments GLUCOSE BEDSIDE TESTING (test code=GLUBED) 189 MG/DL 60-99 GLUCOSE BEDSIDE [id number] 06:59:00 Test Item Value Reference Range Comments GLUCOSE BEDSIDE TESTING (test code=GLUBED) 119 MG/DL 60-99 GLUCOSE BEDSIDE [id number] 21:39:00 Test Item Value Reference Range Comments GLUCOSE BEDSIDE TESTING (test code=GLUBED) 172 MG/DL 60-99 GLUCOSE BEDSIDE [id number] 12:36:00 Test Item Value Reference Range Comments GLUCOSE BEDSIDE TESTING (test code=GLUBED) 155 MG/DL 60-99 - XR CHEST [id number] 09:12:00 Patient Name: BREA GILES Unit No: [id number] EXAMS: CPT CODE: [id number] XR CHEST 1V 81646 EXAM: Portable chest one view. Location code:J9 HISTORY: CHF COMPARISON: 06/25/2019 Findings: The cardiac silhouette is enlarged and stable in size. Stable prominent interstitial lung markings. No large pleuraleffusion or pneumothorax. The bones are intact. IMPRESSION: Stable findings of CHF. at 0912 Reported and signed by: Gil Pope M.D. CC: Nick Cabrera; Alexandr Hawkins; Viviana Thompson MD Technologist: RT Mark (R) Transcrpt Date/Tm/Trnsp: 06/29 (0912) t.SDR.RR16 Orig Print D/T: S: 06/29/2019 (15) [facility] NAME: BREA GILES [id number] PHYS: [place] [address] : 1945 AGE: 73 SEX: F LOC: [id number] PHONE #: [phone] EXAM DATE: 06/29/2019 STATUS: ADM IN FAX #: [phone] RADIOLOGY NO: PAGE 1 Signed ReportBASIC METABOLIC [id number] 07:40:00 Test Item Value Reference Range Comments [...] (test code=CA) 8.8 MG/DL 8.4-10.2 BASIC METABOLIC [id number] 07:27:00 Test Item Value Reference Range Comments SODIUM (test code=NA) 136 MMOL/L 137-145 POTASSIUM (test code=K) 3.4 MMOL/L 3.5-5.1 CHLORIDE (test code=CL) 99 MMOL/L 98-107 CARBON DIOXIDE (test code=CO2) MMOL/L 22-30 GLUCOSE (test code=GLU) MG/DL 74-106 BLOOD UREA NITROGEN (test code=BUN) MG/DL 7-17 GLOMERULAR FILTRATION RATE (test code=GFR) CREATININE (test code=CREAT) MG/DL 0.52-1.04 CALCIUM (test code=CA) MG/DL 8.7-9.7 CBC W/AUTO [id number] 07:12:00 Test Item Value Reference Range Comments [...] # (test code=NRBC#) 0.00 K/mm3 0.0-0.1 DIFFERENTIAL [id number] 07:12:00 Test Item Value Reference Range Comments RBC MORPHOLOGY REQUIRED (test code=RBCM) PLATELET ESTIMATE (test code=PLTEST) ADEQUATE PLATELET MORPHOLOGY (test code=PLTMORPH) NORMAL CBC W/AUTO [id number] 07:12:00 Test Item Value Reference Range Comments [...] # (test code=NRBC#) 0.00 K/mm3 0.0-0.1 DIFFERENTIAL [id number] 07:12:00 Test Item Value Reference Range Comments RBC MORPHOLOGY REQUIRED (test code=RBCM) PLATELET ESTIMATE (test code=PLTEST) ADEQUATE PLATELET MORPHOLOGY (test code=PLTMORPH) NORMAL GLUCOSE BEDSIDE [id number] 06:19:00 Test Item Value Reference Range Comments GLUCOSE BEDSIDE TESTING (test code=GLUBED) 129 MG/DL 60-99 GLUCOSE BEDSIDE [id number] 20:30:00 Test Item Value Reference Range Comments GLUCOSE BEDSIDE TESTING (test code=GLUBED) 130 MG/DL 60-99 GLUCOSE BEDSIDE [id number] 18:01:00 Test Item Value Reference Range Comments GLUCOSE BEDSIDE TESTING (test code=GLUBED) 150 MG/DL 60-99 GLUCOSE BEDSIDE [id number] 13:32:00 Test Item Value Reference Range Comments GLUCOSE BEDSIDE TESTING (test code=GLUBED) 147 MG/DL 60-99 GLUCOSE BEDSIDE [id number] 07:06:00 Test Item Value Reference Range Comments GLUCOSE BEDSIDE TESTING (test code=GLUBED) 154 MG/DL 60-99 GLUCOSE BEDSIDE [id number] 20:58:00 Test Item Value Reference Range Comments GLUCOSE BEDSIDE TESTING (test code=GLUBED) 198 MG/DL 60-99 GLUCOSE BEDSIDE [id number] 16:23:00 Test Item Value Reference Range Comments GLUCOSE BEDSIDE TESTING (test code=GLUBED) 131 MG/DL 60-99 GLUCOSE BEDSIDE [id number] 14:29:00 Test Item Value Reference Range Comments GLUCOSE BEDSIDE TESTING (test code=GLUBED) 164 MG/DL 60-99 GLUCOSE BEDSIDE [id number] 14:29:00 Test Item Value Reference Range Comments GLUCOSE BEDSIDE TESTING (test code=GLUBED) 152 MG/DL 60-99 GLUCOSE BEDSIDE [id number] 14:29:00 Test Item Value Reference Range Comments GLUCOSE BEDSIDE TESTING (test code=GLUBED) 209 MG/DL 60-99 GLUCOSE BEDSIDE [id number] 14:29:00 Test Item Value Reference Range Comments GLUCOSE BEDSIDE TESTING (test code=GLUBED) 161 MG/DL 60-99 GLUCOSE BEDSIDE [id number] 06:27:00 Test Item Value Reference Range Comments GLUCOSE BEDSIDE TESTING (test code=GLUBED) 144 MG/DL 60-99 BASIC METABOLIC [id number] 06:25:00 Test Item Value Reference Range Comments [...] (test code=CA) 9.0 MG/DL 8.4-10.2 BASIC METABOLIC [id number] 06:19:00 Test Item Value Reference Range Comments [...] CALCIUM (test code=CA) MG/DL 8.7-9.7 BASIC METABOLIC [id number] 06:17:00 Test Item Value Reference Range Comments SODIUM (test code=NA) 136 MMOL/L 137-145 POTASSIUM (test code=K) 3.5 MMOL/L 3.5-5.1 CHLORIDE (test code=CL) 99 MMOL/L 98-107 CARBON DIOXIDE (test code=CO2) MMOL/L 22-30 GLUCOSE (test code=GLU) MG/DL 74-106 BLOOD UREA NITROGEN (test code=BUN) MG/DL 7-17 GLOMERULAR FILTRATION RATE (test code=GFR) CREATININE (test code=CREAT) MG/DL 0.52-1.04 CALCIUM (test code=CA) MG/DL 8.7-9.7 GLUCOSE BEDSIDE [id number] 21:09:00 Test Item Value Reference Range Comments GLUCOSE BEDSIDE TESTING (test code=GLUBED) 236 MG/DL 60-99 BASIC METABOLIC [id number] 06:05:00 Test Item Value Reference Range Comments [...] (test code=CA) 8.9 MG/DL 8.4-10.2 BASIC METABOLIC [id number] 05:46:00 Test Item Value Reference Range Comments SODIUM (test code=NA) 135 MMOL/L 137-145 POTASSIUM (test code=K) 3.8 MMOL/L 3.5-5.1 CHLORIDE (test code=CL) 101 MMOL/L 98-107 CARBON DIOXIDE (test code=CO2) MMOL/L 22-30 GLUCOSE (test code=GLU) MG/DL 74-106 BLOOD UREA NITROGEN (test code=BUN) MG/DL 7-17 GLOMERULAR FILTRATION RATE (test code=GFR) CREATININE (test code=CREAT) MG/DL 0.52-1.04 CALCIUM (test code=CA) MG/DL 8.7-9.7 BASIC METABOLIC [id number] 05:45:00 Test Item Value Reference Range Comments SODIUM (test code=NA) 135 MMOL/L 137-145 POTASSIUM (test code=K) MMOL/L 3.5-5.1 CHLORIDE (test code=CL) 101 MMOL/L 98-107 CARBON DIOXIDE (test code=CO2) MMOL/L 22-30 GLUCOSE (test code=GLU) MG/DL 74-106 BLOOD UREA NITROGEN (test code=BUN) MG/DL 7-17 GLOMERULAR FILTRATION RATE (test code=GFR) CREATININE (test code=CREAT) MG/DL 0.52-1.04 CALCIUM (test code=CA) MG/DL 8.7-9.7 CBC W/AUTO [id number] 05:24:00 Test Item Value Reference Range Comments [...] # (test code=NRBC#) 0.02 K/mm3 0.0-0.1 CPK-MB [id number] 00:47:00 Test Item Value Reference Range Comments CREATINE KINASE (CK) (test code=CK) 42 UNITS/L 30-135 CKMB (test code=CKMBT) 0.93 NG/ML 0.0-5.6 CKMB INDEX (test code=CKMBI) 2.2 % 4.0-4.4 CPK-MB [id number] 00:45:00 Test Item Value Reference Range Comments CREATINE KINASE (CK) (test code=CK) 42 UNITS/L 30-135 CKMB (test code=CKMBT) NG/ML 0.0-5.6 CKMB INDEX (test code=CKMBI) % 4.0-4.4 CPK-MB [id number] 17:46:00 Test Item Value Reference Range Comments CREATINE KINASE (CK) (test code=CK) 41 UNITS/L 30-135 CKMB (test code=CKMBT) 0.98 NG/ML 0.0-5.6 CKMB INDEX (test code=CKMBI) 2.4 % 4.0-4.4 GLUCOSE BEDSIDE [id number] 16:58:00 Test Item Value Reference Range Comments GLUCOSE BEDSIDE TESTING (test code=GLUBED) 154 MG/DL 60-99 [id number] 14:02:00 Test Item Value Reference Range Comments TROPONIN-I (test code=TROPI) 0.091 NG/ML 0.012-0.033 GLUCOSE BEDSIDE [id number] 11:33:00 Test Item Value Reference Range Comments GLUCOSE BEDSIDE TESTING (test code=GLUBED) 202 MG/DL 60-99 BASIC METABOLIC [id number] 09:27:00 Test Item Value Reference Range Comments [...] 0.52-1.04 CALCIUM (test code=CA) 8.9 MG/DL 8.4-10.2 [id number] 09:27:00 Test Item Value Reference Range Comments PHOSPHOROUS (test code=PHOS) 4.2 MG/DL 2.5-4.5 [id number] 09:27:00 Test Item Value Reference Range Comments MAGNESIUM (test code=MAG) 2.0 MG/DL 1.6-2.3 CPK-MB [id number] 09:27:00 Test Item Value Reference Range Comments CREATINE KINASE (CK) (test code=CK) 28 UNITS/L 30-135 CKMB (test code=CKMBT) 1.00 NG/ML 0.0-5.6 CKMB INDEX (test code=CKMBI) 3.6 % 4.0-4.4 BASIC METABOLIC [id number] 09:18:00 Test Item Value Reference Range Comments [...] 0.52-1.04 CALCIUM (test code=CA) 8.9 MG/DL 8.4-10.2 [id number] 09:18:00 Test Item Value Reference Range Comments PHOSPHOROUS (test code=PHOS) 4.2 MG/DL 2.5-4.5 [id number] 09:18:00 Test Item Value Reference Range Comments MAGNESIUM (test code=MAG) MG/DL 1.6-2.3 CPK-MB [id number] 09:18:00 Test Item Value Reference Range Comments CREATINE KINASE (CK) (test code=CK) 28 UNITS/L 30-135 CKMB (test code=CKMBT) NG/ML 0.0-5.6 CKMB INDEX (test code=CKMBI) % 4.0-4.4 BASIC METABOLIC [id number] 09:18:00 Test Item Value Reference Range Comments [...] 0.52-1.04 CALCIUM (test code=CA) 8.9 MG/DL 8.4-10.2 [id number] 09:18:00 Test Item Value Reference Range Comments PHOSPHOROUS (test code=PHOS) 4.2 MG/DL 2.5-4.5 [id number] 09:18:00 Test Item Value Reference Range Comments MAGNESIUM (test code=MAG) 2.0 MG/DL 1.6-2.3 CPK-MB [id number] 09:18:00 Test Item Value Reference Range Comments CREATINE KINASE (CK) (test code=CK) 28 UNITS/L 30-135 CKMB (test code=CKMBT) NG/ML 0.0-5.6 CKMB INDEX (test code=CKMBI) % 4.0-4.4 BASIC METABOLIC [id number] 09:17:00 Test Item Value Reference Range Comments [...] MG/DL 0.52-1.04 CALCIUM (test code=CA) MG/DL 8.7-9.7 [id number] 09:17:00 Test Item Value Reference Range Comments PHOSPHOROUS (test code=PHOS) MG/DL 2.5-4.5 [id number] 09:17:00 Test Item Value Reference Range Comments MAGNESIUM (test code=MAG) MG/DL 1.6-2.3 CPK-MB [id number] 09:17:00 Test Item Value Reference Range Comments CREATINE KINASE (CK) (test code=CK) UNITS/L 30-135 CKMB (test code=CKMBT) NG/ML 0.0-5.6 CKMB INDEX (test code=CKMBI) % 4.0-4.4 BASIC METABOLIC [id number] 09:15:00 Test Item Value Reference Range Comments SODIUM (test code=NA) 136 MMOL/L 137-145 POTASSIUM (test code=K) 3.8 MMOL/L 3.5-5.1 CHLORIDE (test code=CL) 99 MMOL/L 98-107 CARBON DIOXIDE (test code=CO2) MMOL/L 22-30 GLUCOSE (test code=GLU) MG/DL 74-106 BLOOD UREA NITROGEN (test code=BUN) MG/DL 7-17 GLOMERULAR FILTRATION RATE (test code=GFR) CREATININE (test code=CREAT) MG/DL 0.52-1.04 CALCIUM (test code=CA) MG/DL 8.7-9.7 [id number] 09:15:00 Test Item Value Reference Range Comments PHOSPHOROUS (test code=PHOS) MG/DL 2.5-4.5 [id number] 09:15:00 Test Item Value Reference Range Comments MAGNESIUM (test code=MAG) MG/DL 1.6-2.3 CPK-MB [id number] 09:15:00 Test Item Value Reference Range Comments CREATINE KINASE (CK) (test code=CK) UNITS/L 30-135 CKMB (test code=CKMBT) NG/ML 0.0-5.6 CKMB INDEX (test code=CKMBI) % 4.0-4.4 BASIC METABOLIC [id number] 09:14:00 Test Item Value Reference Range Comments SODIUM (test code=NA) MMOL/L 137-145 POTASSIUM (test code=K) MMOL/L 3.5-5.1 CHLORIDE (test code=CL) 99 MMOL/L 98-107 CARBON DIOXIDE (test code=CO2) MMOL/L 22-30 GLUCOSE (test code=GLU) MG/DL 74-106 BLOOD UREA NITROGEN (test code=BUN) MG/DL 7-17 GLOMERULAR FILTRATION RATE (test code=GFR) CREATININE (test code=CREAT) MG/DL 0.52-1.04 CALCIUM (test code=CA) MG/DL 8.7-9.7 [id number] 09:14:00 Test Item Value Reference Range Comments PHOSPHOROUS (test code=PHOS) MG/DL 2.5-4.5 [id number] 09:14:00 Test Item Value Reference Range Comments MAGNESIUM (test code=MAG) MG/DL 1.6-2.3 CPK-MB [id number] 09:14:00 Test Item Value Reference Range Comments CREATINE KINASE (CK) (test code=CK) UNITS/L 30-135 CKMB (test code=CKMBT) NG/ML 0.0-5.6 CKMB INDEX (test code=CKMBI) % 4.0-4.4 CBC W/AUTO [id number] 08:55:00 Test Item Value Reference Range Comments [...] # (test code=NRBC#) 0.00 K/mm3 0.0-0.1 DIFFERENTIAL [id number] 08:55:00 Test Item Value Reference Range Comments RBC MORPHOLOGY REQUIRED (test code=RBCM) PLATELET ESTIMATE (test code=PLTEST) ADEQUATE PLATELET MORPHOLOGY (test code=PLTMORPH) NORMAL CBC W/AUTO [id number] 08:55:00 Test Item Value Reference Range Comments [...] # (test code=NRBC#) 0.00 K/mm3 0.0-0.1 DIFFERENTIAL [id number] 08:55:00 Test Item Value Reference Range Comments RBC MORPHOLOGY REQUIRED (test code=RBCM) PLATELET ESTIMATE (test code=PLTEST) ADEQUATE PLATELET MORPHOLOGY (test code=PLTMORPH) NORMAL - XR CHEST [id number] 08:06:00 Patient Name: BREA GILES Unit No: [id number] EXAMS: CPT CODE: [id number] XR CHEST 1V 70215 Single View Chest. Location: B2 Clinical Indication: [...] Hawkins; Viviana Thompson MD Technologist : Alan Puritt, RT(R) Transcrpt Date/Tm/Trnsp: 06/25/2019 (0806) t.SDR.RB24 Orig Print D/T: S: 06/25/2019 (0810) [facility] NAME: BREA GILES [id number] [address] PHYS: [place] [address] : 1945 AGE: 73 SEX: F LOC: Z.I10 A PHONE #: [phone] EXAM DATE: 06/25/2019 STATUS: ADM IN FAX #: [phone] RADIOLOGY NO: PAGE 1 Signed ReportGLUCOSE BEDSIDE [id number] 08:00:00 Test Item Value Reference Range Comments GLUCOSE BEDSIDE TESTING (test code=GLUBED) 155 MG/DL 60-99 COMPREHENSIVE METABOLIC [id number] 07:19:00 Test Item Value Reference Range Comments [...] (test 137 UNITS/L 38-126 code=ALKP) COMPREHENSIVE METABOLIC [id number] 07:18:00 Test Item Value Reference Range Comments [...] PHOSPHATASE (test UNITS/L 38-126 code=ALKP) COMPREHENSIVE METABOLIC [id number] 07:16:00 Test Item Value Reference Range Comments [...] PHOSPHATASE (test code=ALKP) UNITS/L 38-126 COMPREHENSIVE METABOLIC [id number] 07:15:00 Test Item Value Reference Range Comments [...] PHOSPHATASE (test code=ALKP) UNITS/L 38-126 LIPOPROTEIN LDL [id number] 05:23:00 Test Item Value Reference Range Comments LIPOPROTEIN LDL DIRECT (test 84 mg/dL 100-129 code=LDLDIR) ===Reference Interval: mg/dL mmol/L ---------Optimal <100 <2.6Near/above optimal 100-129 2.6-3.3Borderline High 130-159 3.4-4.1High 160-189 4.1-4.9Very High >=190 >=4.9=========This LDL result is a direct measurement.========= [id number] 05:23:00 Test Item Value Reference Range Comments TROPONIN-I (test 0.127 NG/ML 0.012-0.033 CALLED TO [facility] icu & code=TROPI) READBACK ON 06/25/19 AT 0500 BY Aimee Ramirez LIPOPROTEIN LDL [id number] 05:02:00 Test Item Value Reference Range Comments LIPOPROTEIN LDL DIRECT (test code=LDLDIR) mg/dL 100-129 [id number] 05:02:00 Test Item Value Reference Range Comments TROPONIN-I (test 0.127 NG/ML 0.012-0.033 CALLED TO [facility] icu & code=TROPI) READBACK ON 06/25/19 AT 0500 BY Aimee Ramirez GLUCOSE BEDSIDE [id number] 03:17:00 Test Item Value Reference Range Comments GLUCOSE BEDSIDE TESTING (test code=GLUBED) 177 MG/DL 60-99
[2019-09-18] MEDS ORDERED: D50W 25 GM/50 ML SYRINGE/VIAL IV PRN (19:28)
[2019-09-18] MEDS ORDERED: GLUCAGON 1 MG/VIAL IM PRN (19:28)
[2019-09-18] MEDS ORDERED: LEVALBUTEROL 1.25 MG/3 ML NEB NEB SCH (20:00)
[2019-09-18] MEDS ORDERED: IPRATROPIUM BROM 0.5MG/2.5ML NEB SCH (20:00)
[2019-09-18] MEDS: APIXABAN 5 MG TABLET PO SCH (20:53)
[2019-09-18] MEDS: AMIODARONE HCL 200 MG TAB PO SCH (20:53)
[2019-09-18] MEDS: Meropenem 1000 MG/VIAL IV SCH (20:55)
[2019-09-18] MEDS: LATANOPROST 0.005% 2.5ML OPTH OPTH SCH (21:00)
[2019-09-18] MEDS: INSULIN -REGULAR HUMAN 50 UNIT/0.5 ML ML SQ SCH (21:02)
[2019-09-18] MEDS ORDERED: IPRATROPIUM BROM 0.5MG/2.5ML NEB PRN (22:14)
[2019-09-18] MEDS ORDERED: LEVALBUTEROL 1.25 MG/3 ML NEB NEB PRN (22:15)
[2019-09-18] MEDS ORDERED: POLYETHYL GLY 3350 17 GM/DOSE PO PRN (23:30)
[2019-09-18] MEDS ORDERED: ACETAMIN/CAFFEINE/BUTALB TAB PO PRN (23:30)
[2019-09-19] MEDS: TRAMADOL HCL 50 MG TAB PO PRN ×2 (05:25→20:21)
[2019-09-19] MEDS: carvediloL 25 MG TAB PO SCH ×2 (05:48→17:09)
[2019-09-19 06:15] LABS: Absolute Lymphocytes (CBC) 1.5 K/uL (0.7-4.9); Basophils % 1.2 % (0-1.3); Hematocrit 35.2 % (36.0-45.0); Lymphocytes % 15.6 % (15.3-44.8); MPV 7.6 fL (7.6-11.3); RBC Red Blood Cell Count 4.47 M/uL (3.86-4.86)
[2019-09-19] MEDS: HOME MED 1 EA UNK PO SCH ×2 (06:30→08:00)
[2019-09-19 06:57] LABS: Albumin 1.9 g/dL (3.4-5.0); Digoxin Level 0.5 ng/mL (0.80-2.00); Magnesium 2.1 mg/dL (1.8-2.4); Potassium 4.1 mmol/L (3.5-5.1); Prealbumin 16.1 mg/dL (20-40)
[2019-09-19] MEDS: INSULIN -REGULAR HUMAN 50 UNIT/0.5 ML ML SQ SCH ×4 (07:30→20:11)
[2019-09-19] MEDS: Meropenem 1000 MG/VIAL IV SCH (07:36)
[2019-09-19] MEDS: DULOXETINE 30 MG CAP PO SCH ×2 (07:40→20:09)
[2019-09-19] MEDS: DIGOXIN 0.125 MG TABLET PO SCH (07:40)
[2019-09-19] MEDS: BUPROPION HCL XL 150 MG TAB PO SCH (07:40)
[2019-09-19] MEDS: AMIODARONE HCL 200 MG TAB PO SCH ×2 (07:41→20:09)
[2019-09-19] MEDS: APIXABAN 5 MG TABLET PO SCH ×2 (07:41→20:09)
[2019-09-19] MEDS: LIDOCAINE 4% PATCH TOP SCH (07:42)
[2019-09-19] MEDS ORDERED: predniSONE 20 MG TAB PO SCH (08:00)
[2019-09-19] MEDS ORDERED: HOME MED 1 EA UNK PO SCH (08:00)
[2019-09-19] MEDS ORDERED: GLIMEPIRIDE 2 MG TABLET PO SCH (08:00)
[2019-09-19] MEDS: Meropenem 1,000 MG in NA CHLORIDE 0.9% 100 ML IV SCH ×2 (08:00→20:10)
[2019-09-19 08:10] LABS: Platelet Estimate ADEQ
[2019-09-19 08:11] LABS: Anisocytosis 1+; Blood Morphology Comment NOTED (NOT SEEN)
--- NOTE | 2019-09-19 16:10 | R.HP ---
FACILITY: [facility] ENCOUNTER DATE AND TIME: 09/19/2019 16:06 (BACKUP ADMINISTRATIVE COORDINATOR) MR#: [id number] NAME BREA GILES ADDRESS: [address] [place] [address] CITY: [place] ZIP [id number] PHONE: DATE OF : 1945 AGE: 74 SSN# [id number] GENDER: Female DEXTERITY Right-handed MARITAL STATUS RACE White PRE-HOSPITAL LIVING SETTING 01 - Home (private home/apt. board/care, assisted living, alf, transitional living) PRE-HOSPITAL LIVING WITH Alone ENCOUNTER PHYSICIAN: Dr. Johnson Frausto M.D. REFERRING DOCTOR: MOISES LEMUS DATE OF ADMISSION: 09/18/2019 18:44 (BACKUP ADMINISTRATIVE COORDINATOR) REFERRING FACILITY [facility] HOME TYPE AND DETAILS: Type of home: single family house # of levels in the residence: 1 # of steps within the residence: 0 # of steps to enter the residence: 0 ADMISSION DIAGNOSIS: SEPSIS/CHF ONSET DATE: 09/14/2019 PRIMARY DIAGNOSIS-RELATED SURGERIES: No surgeries related to the primary diagnosis were performed. SECONDARY/COMORBID DIAGNOSES (TIERED): - N/A FIBROMYLOGIA CHF HTN BRAIN TUMOR - BENIGN DIVERTICULITIS HISTORY OF PRESENT ILLNESS (HPI): Pt. is a 74 yo Right-handed white female. On 09/14/2019 she was admitted to [facility] with diagnosis SEPSIS/CHF. Her impairment category is Debility 16 - Debility (16). Pre-morbidly, Pt. was independent/mod-I in Locomotion, Balance, Safety Awareness, Social Cognition, T ransfers Control, Communication, Endurance, and Self-Care; and she had good Locomotion, Balance, Mckee sfers Control, Self-Care, and Endurance. Currently, she has deficits of Locomotion, Safety Awareness, Balance, Transfers Control, Self-Care, a nd Endurance. Pt. is now referred to [facility] for acute in-patient rehabilitation in order to maximize patient's functional independence in activities of daily living, strength, ROM, and mobi lity. Patient has realistic goal of being discharged at assistance level 6-Tutu to reside at Home with Fam juan josé/Relatives. MEDICATION ALLERGIES: No Known Drug Allergies (NKDA) ENVIRONMENTAL ALLERGIES: - Substance Allergies None Known - Other Allergies None Known PAST MEDICAL HISTORY: BRAIN TUMOR - BENIGN CHF DIVERTICULITIS FIBROMYLOGIA HTN PAST SURGICAL HISTORY: RT TKIR RAMESH HERNIA LEFT JAW PRECANCEROUS FIBROIDS FAMILY HISTORY: Family history is not contributory. SOCIAL HISTORY: - Home Living Alone REVIEW OF SYSTEMS: - Gen No Chills Fatigue No Fever - Eyes No Double Vision No itchiness - ENMT No Difficulty Swallowing - CVS No Chest Discomfort No Chest Pain Fatigue No Weight Gain - Resp No Cough No Shortness of Breath - GI Continent No Abdominal Pain No Constipation No Diarrhea - Continent No Kidney Pain No Painful Urination No Urinary Urgency - MSK No Joint Pain Muscle Cramps Stiffness - Skin No Itching No Rash No Suspicious Lesions - Neuro Coordination Difficulty No Difficulty with Concentration No Memory Loss No Seizures Weakness - Psych No Anxiety No Depression No HIV Exposure No Persistent Infections No Seasonal Allergies - Endo No Cold/Heat Intolerance No Excessive Hunger No Excessive Thirst No Excessive Urination PHYSICAL EXAM - Gen Alert and awake Lying in bed No apparent distress Oriented to: person, time, and place - Skin No skin breakdown. Normacephalic - Eyes No abnormalities - ENMT No abnormalities - Neck No abnormalities No cervical adenopathy - CVS RRR - Chest Mildly decreased breath sounds bilaterally. - Resp Clear to auscultation - Abd Soft - GI Non distended Deferred - No abnormalities - Ext Mild bilateral lower extremity edema. - MSK 4+/5 weakness in both lower extremities. - Neuro No focal deficits - Psych No abnormalities VITAL SIGNS Temperature: 97.2 F SBP/DBP: 130/60 Pulse: 71 Resp: 18 NURSING: - Shower allowing shower ACTIVITIES OOB only with supervision QI SCORES: - Self-Care A. Eating 05-Setup or clean-up assistance B. Oral hygiene 05-Setup or clean-up assistance C. Toileting hygiene 04-Supervision or touching assistance E. Shower/bathe self 04-Supervision or touching assistance F. Upper body dressing 03-Partial/moderate assistance G. Lower body dressing 03-Partial/moderate assistance H. Putting on/taking off footwear 03-Partial/moderate assistance - Mobility A. Roll left and right 04-Supervision or touching assistance B. Sit to lying 04-Supervision or touching assistance C. Lying to sitting on side of bed 04-Supervision or touching assistance D. Sit to stand 04-Supervision or touching assistance E. Chair/lje-ci-herln transfer 04-Supervision or touching assistance F. Toilet transfer 04-Supervision or touching assistance G. Car transfer 04-Supervision or touching assistance I. Walk 10 feet 04-Supervision or touching assistance J. Walk 50 feet with two turns 88-Not attempted due to medical condition or safety concerns K. Walk 150 feet 88-Not attempted due to medical condition or safety concerns L. Walking 10 feet on uneven surfaces 88-Not attempted due to medical condition or safety concerns M. 1 step (curb) 88-Not attempted due to medical condition or safety concerns N. 4 steps 88-Not attempted due to medical condition or safety concerns O. 12 steps 88-Not attempted due to medical condition or safety concerns P. Picking up object 88-Not attempted due to medical condition or safety concerns R. Wheel 50 feet with two turns 88-Not attempted due to medical condition or safety concerns S. Wheel 150 feet 04-Supervision or touching assistance - Bladder and Bowel Bladder continence 0-Always continent Bowel continence 0-Always continent - Endurance Fair - Balance Fair - Safety Awareness Fair CURRENT FUNC. DEFICITS: Self-Care, Mobility, Endurance, Balance, and Safety Awareness MEDICATIONS: - Other See attached MAR (Medication Administration Record) ASSESSMENT: Pt. is a 74 yo Right-handed white female.On 09/14/2019 she was admitted to [facility] wi th diagnosis SEPSIS/CHF.Her impairment category is Debility 16 - Debility (16).Pre-morbidly, Pt. was independent/mod-I in Locomotion, Balance, Safety Awareness, Social Cognition, Transfers Control, Com munication, Endurance, and Self-Care; and she had good Locomotion, Balance, Transfers Control, Self-C are, and Endurance.Currently, she has deficits of Locomotion, Safety Awareness, Balance, Transfers Co ntrol, Self-Care, and Endurance.Pt. is now referred to [facility] for acute in -patient rehabilitation in order to maximize patient's functional independence in activities of daily living, strength, ROM, and mobility.- Rehab Goal Patient has realistic goal of being discharged at assistance level 6-Tutu to reside at Home with Fam juan josé/Relatives. - Physical Therapy Gait dysfunction - to improve, our physical therapists will perform initial evaluation of pt's status upon admission and devise an individualized program for Gait Training, and Wheel Chair mobility Inability to transfer - to improve, our physical therapists will perform initial evaluation of pt's s tatus upon admission and devise an individualized program for Bed mobility Need for home safety evaluation - to improve, our physical therapists will perform initial evaluation of pt's status upon admission and devise an individualized program for Home Evaluation Need in caregiver upon discharge - to improve, our physical therapists will perform initial evaluatio n of pt's status upon admission and devise an individualized program for Caregiver Training New precaution - to improve, our physical therapists will perform initial evaluation of pt's status u maddy admission and devise an individualized program for Patient precaution education Edema - to improve, our physical therapists will perform initial evaluation of pt's status upon admi ssion and devise an individualized program for Elevation Training, and Lymphedema Therapy Poor balance - to improve, our physical therapists will perform initial evaluation of pt's status upo n admission and devise an individualized program for Balance Training Poor endurance - to improve, our physical therapists will perform initial evaluation of pt's status u maddy admission and devise an individualized program for Endurance Training Weakness - to improve, our physical therapists will perform initial evaluation of pt's status upon ad mission and devise an individualized program for Aquatic Therapy, Neuromuscular Reeducation, and Stre ngthening Achieving independence - to improve, our physical therapists will perform initial evaluation of pt's status upon admission and devise an individualized program for Community Reintegration Activities - Occupational Therapy ADL deficits - to improve, our occupation therapists will perform initial evaluation of pt's status u maddy admission and devise an individualized program for Bathing, Bed mobility, Community Reintegration , Cooking, Dressing, Eating, Fine Motor Skills, Grooming, Homemaking, Kitchen Mobility, Laundry, Evangelina ent Education, Safety Awareness, Splinting - Positioning, Transfers(Toilet, Tub, Shower), and Wheel C hair Management Need for aged or disabled carer - to improve, our occupation therapists will perform initial evaluation of pt's s tatus upon admission and devise an individualized program for Caregiver Training Weakness - to improve, our occupation therapists will perform initial evaluation of pt's status upon admission and devise an individualized program for Aquatic Therapy, Balance, Endurance, UE ROM, and U E strengthening MEDICAL PLAN: - Diet Type Start CCHO 1800kal - Diet - Liquid Texture Start Regular - Tube Feed Start N/A - Other See attached MAR (Medication Administration Record) - Diet - Solid Texture Regular - Shower shower DISCHARGE PLAN: - Estimated Length of Stay (days) 13. - Consensus on plan Discharge plan has been discussed with primary caregiver. Patient/Family is in agreement with the albino n. Primary caregiver is in agreement with the plan. - Patient/Family Goals Return home with assistance. - Planned Living Setting Upon Discharge Home, to live with Family/Relatives. Transitional Living. Primary caregiver: Pt self. SIGNATURE PANEL: (BACKUP ADMINISTRATIVE COORDINATOR)
--- NOTE | 2019-09-19 16:12 | PAPE ---
PATIENT: [facility] MR# [id number] REFERRING DOCTOR MOISES LEMUS EVALUATION DATE AND TIME 09/19/2019 16:10 (PLATE CORRECTOR) NAME BREA GILES DATE OF 1945 AGE 74 PHONE SSN# [id number] GENDER female EVALUATING PHYSICIAN Dr. Johnson Frausto M.D. ADMISSION DIAGNOSIS: SEPSIS/CHF ONSET DATE 09/14/2019 SECONDARY/COMORBID DIAGNOSES TIERED: - N/A FIBROMYLOGIA CHF HTN BRAIN TUMOR - BENIGN DIVERTICULITIS POST-ADMISSION FUNCTIONAL/MEDICAL STATUS: - Bladder Same accident frequency: Ind - No accidents in the past 7 days - Bowel Same accident frequency: Ind - No accidents in the past 7 days - Walking Same score based on distance walked: 0(N/A) Same score based on distance walked: 1(<=50ft) - Wheelchair Same score based on distance traveled: 0(N/A) STATUS CHANGE EVALUATION: No change in Functional or Medical Status is identified compared with Pre-Admission screening. PATIENT NEEDS CLOSE MEDICAL SUPERVISION BY A REHABILITATION PHYSICIAN FOR: Coordination of Treatment Team Medical and Co-Morbidity Management PATIENT REQUIRES 24X7 REHAB NURSING FOR MEDICAL AND FUNCTIONAL MGT. OF THE FOLLOWING DEFICITS: Disease Management Medication Management Patient/Family Education Providing Safe Environment PATIENT REQUIRES INTENSIVE, COORDINATED INTERDISCIPLINARY APPROACH TO REHAB: Arranging Home Equipment/Services Discharge Planning Family Intervention/Training Train Dispatcher/Case Management LIST OF IDENTIFIED AND POTENTIAL PROBLEMS: Alteration in leisure activities Bladder, Incontinence Bowel, Incontinence Fluid volume overload related to Congestive Heart Failure (CHF) Infection, Actual or Potential Mobility Impaired Pain, Alteration in Comfort Self Care Deficit Skin Integrity, Actual or Potential Urinary Tract Infection (UTI), Actual or Potential PATIENT COULD BE AT RISK FOR COMPLICATIONS FROM ADVERSE MEDICAL CONDITIONS DUE TO HIS/HER COMORBIDITI ES AND THE RIGORS OF THE INTENSIVE REHABILLITATION PROGRAM. METHODS OR INTERVENTIONS TO AVOID COMPLIC ATIONS INCLUDE: - Infection Clinical staff to assess and manage the signs and symptoms of infection including fever, redness, war mth, etc. - Urinary Tract Infection - Falls Patient will be evaluated for Fall Precautions and will be placed on Fall Precautions as indicated pe r protocol. - Skin Breakdown Nursing will assess skin daily using assessment tool and will place on Skin Breakdown Precautions as indicated per protocol. - Pain Clinical staff may employ non-medication methods such as massage, distraction, decrease stimulus, etc . as needed. Clinical staff will assess patient's pain level every shift per protocol to assess and e nsure pain management effectiveness. Medications will be given and the pain level re-assessed. PRELIMINARY PLAN OF CARE: - Physical Therapy Patient needs Physical Therapy for a daily minimum of 1.5 hours at least 5 out of 7 days, to improve: Mobility, Strengthening, Transfers, Stretching, ROM, Endurance, Ability to manage stairs, Gait, and Balance. - Rehabilitation Nursing Patient requires 24x7 Rehabilitation Nursing for: Pain Issues, Identifying and preventing risk factor s, Monitoring and reporting current medical conditions, Assisting with ambulation and transfer, Gucci ting with all ADL-s, Teaching patients about disease process and medications, Family teaching, Provid ing safe environment, Bowel and Bladder Issues, Skin Integrity, and Medication Management. Patient needs Train Dispatcher and/or Case Management for: Discharge Planning, Arranging Home Equipmen t or Services, and Family Interventions. - Dietary and Nutrition Services Patient needs Dietary and Nutrition Services for: Adequate Nutrition, Nutritional Supplements, and Nu tritional Education. - Occupational Therapy Patient needs Occupational Therapy for a daily minimum of 1.5 hours at least 5 out of 7 days, to impr ove Activities of Daily Living, including: Eating, Grooming, Bathing, Dressing, Toileting, Toilet Tra nsfers, Community Reintegration, Higher functional activities, Adaptive Equipment, Splinting, Househo ld Tasks, and Other activities as determined. QI SCORES: - Self-Care A. Eating 05-Setup or clean-up assistance B. Oral hygiene 05-Setup or clean-up assistance C. Toileting hygiene 04-Supervision or touching assistance E. Shower/bathe self 04-Supervision or touching assistance F. Upper body dressing 03-Partial/moderate assistance G. Lower body dressing 03-Partial/moderate assistance H. Putting on/taking off footwear 03-Partial/moderate assistance - Mobility A. Roll left and right 04-Supervision or touching assistance B. Sit to lying 04-Supervision or touching assistance C. Lying to sitting on side of bed 04-Supervision or touching assistance D. Sit to stand 04-Supervision or touching assistance E. Chair/kde-ol-wsaqv transfer 04-Supervision or touching assistance F. Toilet transfer 04-Supervision or touching assistance G. Car transfer 04-Supervision or touching assistance I. Walk 10 feet 04-Supervision or touching assistance J. Walk 50 feet with two turns 88-Not attempted due to medical condition or safety concerns K. Walk 150 feet 88-Not attempted due to medical condition or safety concerns L. Walking 10 feet on uneven surfaces 88-Not attempted due to medical condition or safety concerns M. 1 step (curb) 88-Not attempted due to medical condition or safety concerns N. 4 steps 88-Not attempted due to medical condition or safety concerns O. 12 steps 88-Not attempted due to medical condition or safety concerns P. Picking up object 88-Not attempted due to medical condition or safety concerns R. Wheel 50 feet with two turns 88-Not attempted due to medical condition or safety concerns S. Wheel 150 feet 04-Supervision or touching assistance - Bladder and Bowel Bladder continence 0-Always continent Bowel continence 0-Always continent - Endurance Fair - Balance Fair - Safety Awareness Fair POTENTIAL FUNCTIONAL GOALS FOR PATIENT TO ACHIEVE BY DISCHARGE: - Safety Precaution Patient will remain free from falls or injury at time of discharge. - Bed Mobility Patient will perform bed mobility at 4-Power level of assistance. - Transfers Patient will complete transfers from bed to chair at 4-Power level of assistance. - Mobility Patient will ambulate 150 ft with 4-Power level of assistance with RW. PATIENT REHAB POTENTIAL Amira CEJA is able and expected to receive 3 hours of individualized therapy daily on at least 5 of every 7 days Amira CEJA's prognosis for significant practical improvement within a reasonable period of freya e appears Good Expected level of measurable improvement will be of a practical value to Amira CEJA's function al capacity or adaptations to impairments Has a viable Discharge Plan Medically appropriate; condition is sufficiently stable to participate in intensive rehab program DISCHARGE PLAN: - Estimated Length of Stay (days) 13. - Consensus on plan Discharge plan has been discussed with primary caregiver. Patient/Family is in agreement with the albino n. Primary caregiver is in agreement with the plan. - Patient/Family Goals Return home with assistance. - Planned Living Setting Upon Discharge Home, to live with Family/Relatives. Transitional Living. Primary caregiver: Pt self. CONCLUSION ON REHABILITATION NECESSITY: I have evaluated patient's pre-admission functional status and, comparing it to the patient's post-ad mission functional status now, I conclude that the pre-admission assessment was accurate. Patient's c ondition on admission supports the medical necessity of admission to IR[facility]. It is safe to proceed with patient's therapy program. SIGNATURE PANEL: (PLATE CORRECTOR)
--- NOTE | 2019-09-19 17:22 | FAST ---
ENCOUNTER DATE AND TIME: 09/19/2019 08:00 (LAVATORY ATTENDANT) NAME BREA GILES DATE OF : 1945 DATE OF ADMISSION: 09/18/2019 18:44 (LAVATORY ATTENDANT) PHONE: AGE: 74 SSN# [id number] GENDER: Female ENCOUNTER PHYSICIAN: Dr. Johnson Frausto M.D. ADMISSION DIAGNOSIS: - Debility 16 - Debility (16) SEPSIS/CHF. EATING: EATING - STEP 1: Does the patient complete the activity by him/herself with no assistance (physical, verbal/nonverbal cueing, setup/clean-up)? Yes. 1. [id number] ADMISSION PERFORMANCE: Independent CODE: 06 ORAL HYGIENE: ORAL HYGIENE - STEP 1: Does the patient complete the activity by him/herself with no assistance (physical, verbal/nonverbal cueing, setup/clean-up)? Yes. 1. [id number] ADMISSION PERFORMANCE: Independent CODE: 06 TOILETING HYGIENE: TOILETING HYGIENE - STEP 1: Does the patient complete the activity by him/herself with no assistance (physical, verbal/nonverbal cueing, setup/clean-up)? No. TOILETING HYGIENE - STEP 2: Does the patient need only setup/clean-up assistance from one helper? Yes. 1. [id number] ADMISSION PERFORMANCE: Setup or clean-up assistance CODE: 05 BATHING: SHOWER/BATHE SELF - STEP 1: Does the patient complete the activity by him/herself with no assistance (physical, verbal/nonverbal cueing, setup/clean-up)? No. SHOWER/BATHE SELF - STEP 2: Does the patient need only setup/clean-up assistance from one helper? No. SHOWER/BATHE SELF - STEP 3: Does the patient need only verbal/nonverbal cueing or touching/steadying/contact guard assistance fro m one helper? Yes. 1. [id number] ADMISSION PERFORMANCE: Supervision or touching assistance CODE: 04 DRESSING - UPPER BODY: DRESSING - UPPER BODY - STEP 1: Does the patient complete the activity by him/herself with no assistance (physical, verbal/nonverbal cueing, setup/clean-up)? No. DRESSING - UPPER BODY - STEP 2: Does the patient need only setup/clean-up assistance from one helper? No. DRESSING - UPPER BODY - STEP 3: Does the patient need only verbal/nonverbal cueing or touching/steadying/contact guard assistance fro m one helper? Yes. 1. [id number] ADMISSION PERFORMANCE: Supervision or touching assistance CODE: 04 DRESSING - LOWER BODY: DRESSING - LOWER BODY - STEP 1: Does the patient complete the activity by him/herself with no assistance (physical, verbal/nonverbal cueing, setup/clean-up)? No. DRESSING - LOWER BODY - STEP 2: Does the patient need only setup/clean-up assistance from one helper? No. DRESSING - LOWER BODY - STEP 3: Does the patient need only verbal/nonverbal cueing or touching/steadying/contact guard assistance fro m one helper? No. DRESSING - LOWER BODY - STEP 4: Does the patient need physical assistance - for example lifting or trunk support from one helper - wi th the helper providing less than half of the effort? No. DRESSING - LOWER BODY - STEP 5: Does the patient need physical assistance - for example lifting or trunk support from one helper - wi th the helper providing more than half of the effort? Yes. 1. [id number] ADMISSION PERFORMANCE: Substantial/maximal assistance CODE: 02 PUTTING ON/TAKING OFF FOOTWEAR: FOOTWEAR - STEP 1: Does the patient complete the activity by him/herself with no assistance (physical, verbal/nonverbal cueing, setup/clean-up)? No. FOOTWEAR - STEP 2: Does the patient need only setup/clean-up assistance from one helper? No. FOOTWEAR - STEP 3: Does the patient need only verbal/nonverbal cueing or touching/steadying/contact guard assistance fro m one helper? No. FOOTWEAR - STEP 4: Does the patient need physical assistance - for example lifting or trunk support from one helper - wi th the helper providing less than half of the effort? No. FOOTWEAR - STEP 5: Does the patient need physical assistance - for example lifting or trunk support from one helper - wi th the helper providing more than half of the effort? No. FOOTWEAR - STEP 6: Does the helper provide all of the effort? OR Is the assistance of two or more helpers required to co mplete the activity? Yes. 1. [id number] ADMISSION PERFORMANCE: Dependent CODE: 01 DOES THE PATIENT USE A WHEELCHAIR/SCOOTER? CODE: EXPR INDICATE THE TYPE OF WHEELCHAIR/SCOOTER USED: CODE: EXPR INDICATE THE TYPE OF WHEELCHAIR/SCOOTER USED: CODE: EXPR BLADDER AND BOWEL: CODE: EXPR CODE: EXPR SIGNATURE PANEL: The following modified sections: 1. [id number] Admission Performance, 1. [id number] Admission Performance, 1. [id number] Admission Performance, 1. [id number] Admission Performance, 1. [id number] Admission Performance, 1. [id number] Admission Performance, 1. [id number] Admission Performance were [electronically] signed by Tong Polk OT on TueSep 19 2019 17:21:11 GMT-0600 (Central Standard Time)
[2019-09-19] MEDS: LATANOPROST 0.005% 2.5ML OPTH OPTH SCH (20:08)
[2019-09-19] MEDS: ENTRESTO PO SCH (20:09)
[2019-09-19] MEDS: PROMOD 30 ML DOSE PO SCH (20:10)
--- NOTE | 2019-09-19 23:20 | PN ---
Subjective: She is feeling a lot better. Denies chest pain, nausea, vomiting. Started to get stron isadora. She had a headache from some food changes yesterday. Physical Examination: Vital Signs: Blood pressure 160/73, pulse 60, temperature 96. HEENT: No JVD. No carotid bruits. She is morbidly obese. Abdomen: No guarding, no rebound, no rigidity. Laboratory Data: White count is normal, hemoglobin 11, hematocrit is 35. Chem-7 is normal. Digoxin 0.50. Sugar anywhere from 72 to 106 on current medication. Assessment And Plan: 1.Urinary tract infection with extended-spectrum beta-lactamases. Continue IV antibiotics. 2.Diabetes mellitus. Continue current medications. I will reduce the dose of medicines because she is starting to have lower normal sugar at this point. 3.Atrial fibrillation by history. We will consult Cardiology because I think we need to taper off. We will reduce the dose of amiodarone and may be stop digoxin. Continue Eliquis for now. Prognosis is guarded. NUSRAT/AQUILINO Voice ID: [id number] Report ID: [id number]
[2019-09-20] MEDS: TRAMADOL HCL 50 MG TAB PO PRN ×2 (05:45→20:11)
[2019-09-20] MEDS: carvediloL 25 MG TAB PO SCH ×2 (05:45→17:01)
[2019-09-20 06:30] LABS: Absolute Lymphocytes (CBC) 1.5 K/uL (0.7-4.9); Basophils % 0.8 % (0-1.3); Hematocrit 33.1 % (36.0-45.0); Lymphocytes % 15.9 % (15.3-44.8); MPV 7.2 fL (7.6-11.3)
[2019-09-20] MEDS: ENTRESTO PO SCH ×2 (07:20→20:06)
[2019-09-20] MEDS: Meropenem 1,000 MG in NA CHLORIDE 0.9% 100 ML IV SCH ×2 (07:21→20:05)
[2019-09-20] MEDS: INSULIN -REGULAR HUMAN 50 UNIT/0.5 ML ML SQ SCH ×4 (07:30→20:06)
[2019-09-20 07:38] LABS: Magnesium 2.1 mg/dL (1.8-2.4); Potassium 4.1 mmol/L (3.5-5.1); Prealbumin 19.9 mg/dL (20-40)
[2019-09-20] MEDS: BUPROPION HCL XL 150 MG TAB PO SCH (07:52)
[2019-09-20] MEDS: LIDOCAINE 4% PATCH TOP SCH (07:52)
[2019-09-20] MEDS: DULOXETINE 30 MG CAP PO SCH ×2 (07:52→20:05)
[2019-09-20] MEDS: DIGOXIN 0.125 MG TABLET PO SCH (07:53)
[2019-09-20] MEDS: GLIMEPIRIDE 2 MG TABLET PO SCH (07:53)
[2019-09-20] MEDS: AMLODIPINE 2.5 MG TAB PO SCH (07:53)
[2019-09-20] MEDS: AMIODARONE HCL 200 MG TAB PO SCH (07:59)
[2019-09-20] MEDS: predniSONE 10 MG TAB PO SCH (07:59)
[2019-09-20] MEDS: APIXABAN 5 MG TABLET PO SCH ×2 (08:00→20:05)
[2019-09-20] MEDS: OMEPRAZOLE 20 MG CAPSULE PO SCH (08:00)
[2019-09-20] MEDS: PROMOD 30 ML DOSE PO SCH ×2 (08:01→20:05)
--- NOTE | 2019-09-20 10:03 | CON ---
Date of Consultation: 09/20/2019 The patient is 74 years old. I saw her in cardiac rehab today on 09/20/2019. She was admitted to [facility] on 09/19/2019. Reason For Consultation: Congestive heart failure history and atrial fibrillation history. History Of Present Illness: The patient is 74 years old, was admitted initially to [facility] with sepsis, congestive heart failure. Her last echocardiogram here very recently showed a perman ent pacemaker presence, normal ejection fraction with moderate pulmonary hypertension, aortic scleros is, mitral annular calcification and some aortic regurgitation. Ejection fraction was normal. She i s now on amiodarone 200 b.i.d., digoxin, Eliquis, carvedilol, prednisone, inhalers, insulin, antibiot ics, Protonix, and Entresto. The patient is not having any cardiac symptoms, but is bradycardic. De nied any syncope. Past Medical History: Includes atrial fibrillation, congestive heart failure, pacemaker placement, h ypertension, COPD, diabetes, and gastroesophageal reflux disease. Review of Systems: Negative. Social History: Negative. Family History: Negative. Medications: Listed earlier. Physical Examination: General: She was in no acute distress. Vital Signs: She was in atrial fibrillation. Her heart rate was 65, blood pressure was 161/68. HEENT: Negative. Neck: Supple without any bruit, lymphadenopathy, JVD, or thyromegaly. Chest: Clear to auscultation and percussion. Cardiac: Revealed atrial fibrillation. No gallops or rubs. She had a 2/6 systolic ejection murmur at the third left intercostal space that did not radiate. Abdomen: Obese, but benign. Extremities: Revealed no clubbing, cyanosis. She had trace edema. Diagnostic Data: Fairly unremarkable. Her glucose was 216. Impression And Plan: 1.Chronic atrial fibrillation, on amiodarone and digoxin and carvedilol. She is bradycardic. She n eeds to continue Eliquis. Continue Coreg. Stop digoxin. We will decrease her amiodarone dose to 20 0 mg daily. I agree with Dr. Shah's and Dr. Frausto's assessment and plans. 2.Chronic obstructive pulmonary disease. 3.Diabetes, well controlled. 4.Gastroesophageal reflux disease. 5.Congestive heart failure. She is on Entresto for that. Her last echocardiogram showed a normal e jection fraction, pacemaker placement, aortic sclerosis, mitral annular calcification, some mild mitr al regurgitation and aortic regurgitation. No need to repeat any cardiac workup at this point. We w ill continue to follow her. BLUE/AQUILINO Voice ID: [id number] Report ID: [id number]
[2019-09-20] MEDS: LATANOPROST 0.005% 2.5ML OPTH OPTH SCH (20:06)
[2019-09-20] MEDS ORDERED: MELATONIN 3 MG TABLET PO SCH (21:00)
[2019-09-21] MEDS: carvediloL 25 MG TAB PO SCH ×2 (04:59→17:29)
[2019-09-21] MEDS: Meropenem 1,000 MG in NA CHLORIDE 0.9% 100 ML IV SCH ×2 (07:03→19:28)
[2019-09-21] MEDS: INSULIN -REGULAR HUMAN 50 UNIT/0.5 ML ML SQ SCH ×4 (07:30→21:00)
[2019-09-21] MEDS: TRAMADOL HCL 50 MG TAB PO PRN ×3 (09:07→19:29)
[2019-09-21] MEDS: OMEPRAZOLE 20 MG CAPSULE PO SCH (09:08)
[2019-09-21] MEDS: ENTRESTO PO SCH ×2 (09:08→20:08)
[2019-09-21] MEDS: AMLODIPINE 2.5 MG TAB PO SCH (09:09)
[2019-09-21] MEDS: predniSONE 10 MG TAB PO SCH (09:09)
[2019-09-21] MEDS: AMIODARONE HCL 200 MG TAB PO SCH (09:09)
[2019-09-21] MEDS: DULOXETINE 30 MG CAP PO SCH ×2 (09:09→19:29)
[2019-09-21] MEDS: APIXABAN 5 MG TABLET PO SCH ×2 (09:10→19:29)
[2019-09-21] MEDS: GLIMEPIRIDE 2 MG TABLET PO SCH (09:10)
[2019-09-21] MEDS: BUPROPION HCL XL 150 MG TAB PO SCH (09:10)
[2019-09-21] MEDS: LIDOCAINE 4% PATCH TOP SCH (09:11)
[2019-09-21] MEDS: PROMOD 30 ML DOSE PO SCH ×2 (09:12→19:36)
--- NOTE | 2019-09-21 09:46 | P.RH.PN ---
Estimated Length of Stay: 10 Expected Discharge Date: 09/27/19 Discharge Disposition Plan: Home Family Support: Yes Longterm Goal: Mobility, Transfers, Self Care Vital Signs: Last Vital Signs Temp 97.0 F 09/21/19 04:30 Pulse 60 09/21/19 09:09 Resp 16 09/21/19 09:07 BP 165/68 H 09/21/19 09:09 Pulse Ox 95 09/21/19 09:07 Laboratory: Laboratory Last Values WBC 9.1 K/uL (4.3-10.9) 09/20/19 05:25 RBC 4.20 M/uL (3.86-4.86) 09/20/19 05:25 Hgb 10.3 g/dL (12.0-15.0) L 09/20/19 05:25 Hct 33.1 % (36.0-45.0) L 09/20/19 05:25 MCV 78.9 fL (80-100) L 09/20/19 05:25 MCH 24.6 pg (27.0-35.0) L 09/20/19 05:25 MCHC 31.2 g/dL (32.0-36.0) L 09/20/19 05:25 RDW 21.4 % (12.1-15.2) H 09/20/19 05:25 Plt Count 377 K/uL (152-406) 09/20/19 05:25 MPV 7.2 fL (7.6-11.3) L 09/20/19 05:25 Neutrophils % 74.3 % (41.7-73.7) H 09/20/19 05:25 Lymphocytes % 15.9 % (15.3-44.8) 09/20/19 05:25 Monocytes % 7.6 % (3.3-12.3) 09/20/19 05:25 Eosinophils % 1.4 % (0-4.4) 09/20/19 05:25 Basophils % 0.8 % (0-1.3) 09/20/19 05:25 Absolute Neutrophils 6.8 K/uL (1.8-8.0) 09/20/19 05:25 Segmented Neutrophils 68 % (40-80) 09/19/19 05:44 Lymphocytes 15 % (15-42) 09/19/19 05:44 Absolute Lymphocytes 1.5 K/uL (0.7-4.9) 09/20/19 05:25 Monocytes 7 % (0-10) 09/19/19 05:44 Absolute Monocytes 0.7 K/uL (0.1-1.3) 09/20/19 05:25 Absolute Eosinophils 0.1 K/uL (0-0.5) 09/20/19 05:25 Metamyelocytes 9 % (0-0) H 09/19/19 05:44 Absolute Basophils 0.1 K/uL (0-0.5) 09/20/19 05:25 Myelocytes 1 % (0-0) H 09/19/19 05:44 Anisocytosis 1+ 09/19/19 05:44 Microcytosis 1+ 09/19/19 05:44 Morphology Comment Noted (NOT SEEN) 09/19/19 05:44 Sodium 143 mmol/L (136-145) 09/20/19 05:25 Potassium 4.1 mmol/L (3.5-5.1) 09/20/19 05:25 Chloride 107 mmol/L (98-107) 09/20/19 05:25 Carbon Dioxide 33 mmol/L (21-32) H 09/20/19 05:25 BUN 13 mg/dL (7-18) 09/20/19 05:25 Creatinine 0.92 mg/dL (0.55-1.3) 09/20/19 05:25 Estimated GFR 60 mL/min (=/>90) L 09/20/19 05:25 Glucose 75 mg/dL (74-106) 09/20/19 05:25 POC Glucose 83 mg/dl (65-120) 09/21/19 07:32 Calcium 8.6 mg/dL (8.5-10.1) 09/20/19 05:25 Magnesium 2.1 mg/dL (1.8-2.4) 09/20/19 05:25 Albumin 2.0 g/dL (3.4-5.0) L 09/20/19 05:25 Prealbumin 19.9 mg/dL (20-40) L 09/20/19 05:25 Digoxin 0.50 ng/mL (0.80-2.00) L 09/19/19 05:44 Weight: 223 lb Wound Present: No Closed Surgical Incision Present: No Negative Pressure Wound Therapy Present: No Physician Update: Labs reviewed and are stable. Glucose 83, prealbumin 19.9. She is doing well with her rollator but she is moderately weak in her upper body. She is still on contact isolation. Medical Issues: Sepsis on Meropenem 1gm Q12H IVPB X 14 days. PAtient is always continent with bladder and bowel Summary: Patient's care plan and [facility] goals have been reviewed and revised as necessary. Please see the Rehabilitation Signature page for all necessary signatures.
[2019-09-21] MEDS: LATANOPROST 0.005% 2.5ML OPTH OPTH SCH (20:08)
[2019-09-21] MEDS: MELATONIN 3 MG TABLET PO SCH (21:00)
--- NOTE | 2019-09-22 02:57 | FAST ---
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 Johnson Frausto M.D. ADMISSION DIAGNOSIS: - Debility 16 - Debility (16) SEPSIS/CHF. EATING: Not assessed/no information CODE: - ORAL HYGIENE: Not assessed/no information CODE: - TOILETING HYGIENE: TOILETING HYGIENE - STEP 1: Does the patient complete the activity by him/herself with no assistance (physical, verbal/nonverbal cueing, setup/clean-up)? No. TOILETING HYGIENE - STEP 2: Does the patient need only setup/clean-up assistance from one helper? No. TOILETING HYGIENE - STEP 3: Does the patient need only verbal/nonverbal cueing or touching/steadying/contact guard assistance fro m one helper? Yes. 1. [id number] ADMISSION PERFORMANCE: Supervision or touching assistance CODE: 04 BATHING: Not assessed/no information CODE: - DRESSING - UPPER BODY: Not assessed/no information CODE: - DRESSING - LOWER BODY: Not assessed/no information CODE: - PUTTING ON/TAKING OFF FOOTWEAR: Not assessed/no information CODE: - ROLL LEFT AND RIGHT: ROLL LEFT AND RIGHT - STEP 1: Does the patient complete the activity by him/herself with no assistance (physical, verbal/nonverbal cueing, setup/clean-up)? No. ROLL LEFT AND RIGHT - STEP 2: Does the patient need only setup/clean-up assistance from one helper? No. ROLL LEFT AND RIGHT - STEP 3: Does the patient need only verbal/nonverbal cueing or touching/steadying/contact guard assistance fro m one helper? Yes. 1. [id number] ADMISSION PERFORMANCE: Supervision or touching assistance CODE: 04 SIT TO LYING: SIT TO LYING - STEP 1: Does the patient complete the activity by him/herself with no assistance (physical, verbal/nonverbal cueing, setup/clean-up)? No. SIT TO LYING - STEP 2: Does the patient need only setup/clean-up assistance from one helper? No. SIT TO LYING - STEP 3: Does the patient need only verbal/nonverbal cueing or touching/steadying/contact guard assistance fro m one helper? Yes. 1. [id number] ADMISSION PERFORMANCE: Supervision or touching assistance CODE: 04 LYING TO SITTING: LYING TO SITTING ON SIDE OF BED - STEP 1: Does the patient complete the activity by him/herself with no assistance (physical, verbal/nonverbal cueing, setup/clean-up)? No. LYING TO SITTING ON SIDE OF BED - STEP 2: Does the patient need only setup/clean-up assistance from one helper? No. LYING TO SITTING ON SIDE OF BED - STEP 3: Does the patient need only verbal/nonverbal cueing or touching/steadying/contact guard assistance fro m one helper? Yes. 1. [id number] ADMISSION PERFORMANCE: Supervision or touching assistance CODE: 04 SIT TO STAND: SIT TO STAND - STEP 1: Does the patient complete the activity by him/herself with no assistance (physical, verbal/nonverbal cueing, setup/clean-up)? No. SIT TO STAND - STEP 2: Does the patient need only setup/clean-up assistance from one helper? No. SIT TO STAND - STEP 3: Does the patient need only verbal/nonverbal cueing or touching/steadying/contact guard assistance fro m one helper? Yes. 1. [id number] ADMISSION PERFORMANCE: Supervision or touching assistance CODE: 04 TRANSFERS: BED, CHAIR: Not assessed/no information CODE: - TRANSFER TOILET: TOILET TRANSFER - STEP 1: Does the patient complete the activity by him/herself with no assistance (physical, verbal/nonverbal cueing, setup/clean-up)? No. TOILET TRANSFER - STEP 2: Does the patient need only setup/clean-up assistance from one helper? No. TOILET TRANSFER - STEP 3: Does the patient need only verbal/nonverbal cueing or touching/steadying/contact guard assistance fro m one helper? Yes. 1. [id number] ADMISSION PERFORMANCE: Supervision or touching assistance CODE: 04 TRANSFERS: CAR: Not assessed/no information CODE: - WALK 10 FEET: Not assessed/no information CODE: - 1 STEP (CURB): Not assessed/no information CODE: - PICKING UP OBJECT: Not assessed/no information CODE: - DOES THE PATIENT USE A WHEELCHAIR/SCOOTER? CODE: EXPR WHEEL 50 FEET WITH TWO TURNS: Not assessed/no information CODE: - INDICATE THE TYPE OF WHEELCHAIR/SCOOTER USED: CODE: EXPR WHEEL 150 FEET: Not assessed/no information CODE: - INDICATE THE TYPE OF WHEELCHAIR/SCOOTER USED: CODE: EXPR BLADDER AND BOWEL: H350. BLADDER CONTINENCE (3-DAY ASSESSMENT PERIOD): Always continent (no documented incontinence) CODE: 0 H400. BOWEL CONTINENCE (3-DAY ASSESSMENT PERIOD): Always continent CODE: 0
[2019-09-22] MEDS: TRAMADOL HCL 50 MG TAB PO PRN ×4 (03:08→22:19)
[2019-09-22] MEDS: carvediloL 25 MG TAB PO SCH ×2 (05:24→17:03)
[2019-09-22 05:34] VITALS: BMI 42.5
[2019-09-22] MEDS: OMEPRAZOLE 20 MG CAPSULE PO SCH (06:50)
[2019-09-22] MEDS: Meropenem 1,000 MG in NA CHLORIDE 0.9% 100 ML IV SCH ×2 (06:50→19:52)
[2019-09-22] MEDS: INSULIN -REGULAR HUMAN 50 UNIT/0.5 ML ML SQ SCH ×4 (07:30→21:00)
[2019-09-22] MEDS: AMLODIPINE 2.5 MG TAB PO SCH (08:44)
[2019-09-22] MEDS: LIDOCAINE 4% PATCH TOP SCH (08:44)
[2019-09-22] MEDS: DULOXETINE 30 MG CAP PO SCH ×2 (08:44→19:50)
[2019-09-22] MEDS: AMIODARONE HCL 200 MG TAB PO SCH (08:45)
[2019-09-22] MEDS: ENTRESTO PO SCH ×2 (08:45→19:51)
[2019-09-22] MEDS: GLIMEPIRIDE 2 MG TABLET PO SCH (08:46)
[2019-09-22] MEDS: BUPROPION HCL XL 150 MG TAB PO SCH (08:46)
[2019-09-22] MEDS: predniSONE 10 MG TAB PO SCH (08:46)
[2019-09-22] MEDS: PROMOD 30 ML DOSE PO SCH ×2 (08:46→19:53)
[2019-09-22] MEDS: APIXABAN 5 MG TABLET PO SCH ×2 (08:46→19:50)
--- NOTE | 2019-09-22 15:21 | FAST ---
ENCOUNTER DATE AND TIME: 09/22/2019 08:00 (MAP EDITOR) NAME BREA GILES DATE OF : 1945 DATE OF ADMISSION: 09/18/2019 18:44 (MAP EDITOR) PHONE: AGE: 74 SSN# [id number] GENDER: Female ENCOUNTER PHYSICIAN: Dr. Johnson Frausto M.D. ADMISSION DIAGNOSIS: - Debility 16 - Debility (16) SEPSIS/CHF. EATING: Not assessed/no information CODE: - ORAL HYGIENE: ORAL HYGIENE - STEP 1: Does the patient complete the activity by him/herself with no assistance (physical, verbal/nonverbal cueing, setup/clean-up)? Yes. 1. [id number] ADMISSION PERFORMANCE: Independent CODE: 06 TOILETING HYGIENE: TOILETING HYGIENE - STEP 1: Does the patient complete the activity by him/herself with no assistance (physical, verbal/nonverbal cueing, setup/clean-up)? No. TOILETING HYGIENE - STEP 2: Does the patient need only setup/clean-up assistance from one helper? No. TOILETING HYGIENE - STEP 3: Does the patient need only verbal/nonverbal cueing or touching/steadying/contact guard assistance fro m one helper? Yes. 1. [id number] ADMISSION PERFORMANCE: Supervision or touching assistance CODE: 04 BATHING: Not assessed/no information CODE: - DRESSING - UPPER BODY: Not assessed/no information CODE: - DRESSING - LOWER BODY: Not assessed/no information CODE: - PUTTING ON/TAKING OFF FOOTWEAR: Not assessed/no information CODE: - DOES THE PATIENT USE A WHEELCHAIR/SCOOTER? CODE: EXPR INDICATE THE TYPE OF WHEELCHAIR/SCOOTER USED: CODE: EXPR INDICATE THE TYPE OF WHEELCHAIR/SCOOTER USED: CODE: EXPR BLADDER AND BOWEL: CODE: EXPR CODE: EXPR SIGNATURE PANEL: The following modified sections: 1. [id number] Admission Performance, 1. [id number] Admission Performance w ere [electronically] signed by Lisa Moscoso OT on Sat Sep 22 2019 15:20:30 GMT-0600 (Central Stand alem Time)
--- NOTE | 2019-09-22 16:19 | FAST ---
SHIFT START DATE/TIME: 09/22/2019 07:00 (AIRPORT OPERATIONS DUTY MANAGER) SHIFT END DATE/TIME: 09/22/2019 19:00 ([employer] OPERATIONS DUTY MANAGER) NAME BREA GILES DATE OF : 1945 DATE OF ADMISSION: 09/18/2019 18:44 ([employer]IRPORT OPERATIONS DUTY MANAGER) PHONE: AGE: 74 N# [id number] GENDER: Female ENCOUNTER PHYSICIAN: Dr. Johnson Frausto M.D. ADMISSION DIAGNOSIS: - Debility 16 - Debility (16) SEPSIS/CHF. EATING: EATING - STEP 1: Does the patient complete the activity by him/herself with no assistance (physical, verbal/nonverbal cueing, setup/clean-up)? No. EATING - STEP 2: Does the patient need only setup/clean-up assistance from one helper? Yes. 1. [id number] ADMISSION PERFORMANCE: Setup or clean-up assistance CODE: 05 ORAL HYGIENE: Not assessed/no information CODE: - TOILETING HYGIENE: TOILETING HYGIENE - STEP 1: Does the patient complete the activity by him/herself with no assistance (physical, verbal/nonverbal cueing, setup/clean-up)? No. TOILETING HYGIENE - STEP 2: Does the patient need only setup/clean-up assistance from one helper? Yes. 1. [id number] ADMISSION PERFORMANCE: Setup or clean-up assistance CODE: 05 BATHING: Not assessed/no information CODE: - DRESSING - UPPER BODY: Not assessed/no information CODE: - DRESSING - LOWER BODY: Not assessed/no information CODE: - PUTTING ON/TAKING OFF FOOTWEAR: Not assessed/no information CODE: - ROLL LEFT AND RIGHT: ROLL LEFT AND RIGHT - STEP 1: Does the patient complete the activity by him/herself with no assistance (physical, verbal/nonverbal cueing, setup/clean-up)? No. ROLL LEFT AND RIGHT - STEP 2: Does the patient need only setup/clean-up assistance from one helper? No. ROLL LEFT AND RIGHT - STEP 3: Does the patient need only verbal/nonverbal cueing or touching/steadying/contact guard assistance fro m one helper? Yes. 1. [id number] ADMISSION PERFORMANCE: Supervision or touching assistance CODE: 04 SIT TO LYING: SIT TO LYING - STEP 1: Does the patient complete the activity by him/herself with no assistance (physical, verbal/nonverbal cueing, setup/clean-up)? No. SIT TO LYING - STEP 2: Does the patient need only setup/clean-up assistance from one helper? No. SIT TO LYING - STEP 3: Does the patient need only verbal/nonverbal cueing or touching/steadying/contact guard assistance fro m one helper? Yes. 1. [id number] ADMISSION PERFORMANCE: Supervision or touching assistance CODE: 04 LYING TO SITTING: LYING TO SITTING ON SIDE OF BED - STEP 1: Does the patient complete the activity by him/herself with no assistance (physical, verbal/nonverbal cueing, setup/clean-up)? No. LYING TO SITTING ON SIDE OF BED - STEP 2: Does the patient need only setup/clean-up assistance from one helper? No. LYING TO SITTING ON SIDE OF BED - STEP 3: Does the patient need only verbal/nonverbal cueing or touching/steadying/contact guard assistance fro m one helper? Yes. 1. [id number] ADMISSION PERFORMANCE: Supervision or touching assistance CODE: 04 SIT TO STAND: SIT TO STAND - STEP 1: Does the patient complete the activity by him/herself with no assistance (physical, verbal/nonverbal cueing, setup/clean-up)? No. SIT TO STAND - STEP 2: Does the patient need only setup/clean-up assistance from one helper? No. SIT TO STAND - STEP 3: Does the patient need only verbal/nonverbal cueing or touching/steadying/contact guard assistance fro m one helper? Yes. 1. [id number] ADMISSION PERFORMANCE: Supervision or touching assistance CODE: 04 TRANSFERS: BED, CHAIR: CHAIR/[id number] TRANSFER - STEP 1: Does the patient complete the activity by him/herself with no assistance (physical, verbal/nonverbal cueing, setup/clean-up)? No. CHAIR/[id number] TRANSFER - STEP 2: Does the patient need only setup/clean-up assistance from one helper? No. CHAIR/[id number] TRANSFER - STEP 3: Does the patient need only verbal/nonverbal cueing or touching/steadying/contact guard assistance fro m one helper? Yes. 1. [id number] ADMISSION PERFORMANCE: Supervision or touching assistance CODE: 04 TRANSFER TOILET: TOILET TRANSFER - STEP 1: Does the patient complete the activity by him/herself with no assistance (physical, verbal/nonverbal cueing, setup/clean-up)? No. TOILET TRANSFER - STEP 2: Does the patient need only setup/clean-up assistance from one helper? No. TOILET TRANSFER - STEP 3: Does the patient need only verbal/nonverbal cueing or touching/steadying/contact guard assistance fro m one helper? Yes. 1. [id number] ADMISSION PERFORMANCE: Supervision or touching assistance CODE: 04 TRANSFERS: CAR: Not assessed/no information CODE: - WALK 10 FEET: Not assessed/no information CODE: - 1 STEP (CURB): Not assessed/no information CODE: - PICKING UP OBJECT: Not assessed/no information CODE: - DOES THE PATIENT USE A WHEELCHAIR/SCOOTER? Q1. DOES THE PATIENT USE A WHEELCHAIR/SCOOTER?: Yes CODE: 1 WHEEL 50 FEET WITH TWO TURNS: Not assessed/no information CODE: - INDICATE THE TYPE OF WHEELCHAIR/SCOOTER USED: RR1. INDICATE THE TYPE OF WHEELCHAIR/SCOOTER USED.: Manual CODE: 1 WHEEL 150 FEET: Not assessed/no information CODE: - INDICATE THE TYPE OF WHEELCHAIR/SCOOTER USED: SS1. INDICATE THE TYPE OF WHEELCHAIR/SCOOTER USED.: Manual CODE: 1 BLADDER AND BOWEL: H350. BLADDER CONTINENCE (3-DAY ASSESSMENT PERIOD): Always continent (no documented incontinence) CODE: 0 H400. BOWEL CONTINENCE (3-DAY ASSESSMENT PERIOD): Always continent CODE: 0 SIGNATURE PANEL: The following modified sections: 1. [id number] Admission Performance, 1. [id number] Admission Performance, 1. [id number] Admission Performance, 1. [id number] Admission Performance, 1. [id number] Admission Performance, 1. [id number] Admission Performance, 1. LW1012K Admission Performance, 1. [id number] Admission Performance , Q1. Does the patient use a wheelchair/scooter?, RR1. Indicate the type of wheelchair/scooter used., Code, SS1. Indicate the type of wheelchair/scooter used., H350. Bladder Continence (3-day assessment period), H400. Bowel Continence (3-day assessment period), H400. Bowel Continence (3-day assessment period), H400. Bowel Continence (3-day assessment period) were [electronically] signed by Gilbert LancasterNKyle on Sat Sep 22 2019 16:18:28 GMT-0600 (Central Standard Time)
[2019-09-22] MEDS: LATANOPROST 0.005% 2.5ML OPTH OPTH SCH (21:26)
[2019-09-22] MEDS: MELATONIN 3 MG TABLET PO SCH (22:21)
[2019-09-23] MEDS: carvediloL 25 MG TAB PO SCH ×2 (05:11→17:05)
[2019-09-23] MEDS: TRAMADOL HCL 50 MG TAB PO PRN ×2 (05:12→16:02)
[2019-09-23] MEDS: OMEPRAZOLE 20 MG CAPSULE PO SCH (06:31)
[2019-09-23] MEDS: Meropenem 1,000 MG in NA CHLORIDE 0.9% 100 ML IV SCH ×2 (07:10→19:37)
[2019-09-23] MEDS: LIDOCAINE 4% PATCH TOP SCH (07:19)
[2019-09-23] MEDS: INSULIN -REGULAR HUMAN 50 UNIT/0.5 ML ML SQ SCH ×4 (07:30→21:00)
[2019-09-23] MEDS: ENTRESTO PO SCH ×2 (08:28→19:36)
[2019-09-23] MEDS: PROMOD 30 ML DOSE PO SCH ×2 (08:28→19:36)
[2019-09-23] MEDS: BUPROPION HCL XL 150 MG TAB PO SCH (08:29)
[2019-09-23] MEDS: APIXABAN 5 MG TABLET PO SCH ×2 (08:29→19:36)
[2019-09-23] MEDS: GLIMEPIRIDE 2 MG TABLET PO SCH (08:29)
[2019-09-23] MEDS: DULOXETINE 30 MG CAP PO SCH ×2 (08:29→19:36)
[2019-09-23] MEDS: AMIODARONE HCL 200 MG TAB PO SCH (08:29)
[2019-09-23] MEDS: predniSONE 10 MG TAB PO SCH (08:30)
[2019-09-23] MEDS: AMLODIPINE 2.5 MG TAB PO SCH (08:30)
[2019-09-23] MEDS: LATANOPROST 0.005% 2.5ML OPTH OPTH SCH (21:59)
[2019-09-23] MEDS: MELATONIN 3 MG TABLET PO SCH (22:00)
[2019-09-24] MEDS: TRAMADOL HCL 50 MG TAB PO PRN ×3 (00:06→19:53)
[2019-09-24] MEDS: carvediloL 25 MG TAB PO SCH ×2 (05:22→17:04)
[2019-09-24] MEDS: OMEPRAZOLE 20 MG CAPSULE PO SCH (06:30)
[2019-09-24] MEDS: INSULIN -REGULAR HUMAN 50 UNIT/0.5 ML ML SQ SCH ×4 (07:15→20:49)
[2019-09-24] MEDS: Meropenem 1,000 MG in NA CHLORIDE 0.9% 100 ML IV SCH ×2 (07:33→19:51)
[2019-09-24] MEDS: LIDOCAINE 4% PATCH TOP SCH (07:34)
[2019-09-24] MEDS: predniSONE 10 MG TAB PO SCH (07:35)
[2019-09-24] MEDS: BUPROPION HCL XL 150 MG TAB PO SCH (07:35)
[2019-09-24] MEDS: DULOXETINE 30 MG CAP PO SCH ×2 (07:35→19:52)
[2019-09-24] MEDS: GLIMEPIRIDE 2 MG TABLET PO SCH (07:35)
[2019-09-24] MEDS: AMLODIPINE 2.5 MG TAB PO SCH (07:35)
[2019-09-24] MEDS: APIXABAN 5 MG TABLET PO SCH ×2 (07:35→19:52)
[2019-09-24] MEDS: AMIODARONE HCL 200 MG TAB PO SCH (07:36)
[2019-09-24] MEDS: PROMOD 30 ML DOSE PO SCH ×2 (07:36→19:54)
[2019-09-24] MEDS: ENTRESTO PO SCH ×2 (07:37→19:52)
--- NOTE | 2019-09-24 09:56 | FAST ---
SHIFT START DATE/TIME: 09/24/2019 07:00 (GAS REGULATOR REPAIRER) SHIFT END DATE/TIME: 09/24/2019 19:00 (GAS REGULATOR REPAIRER) NAME BREA GILES DATE OF : 1945 DATE OF ADMISSION: 09/18/2019 18:44 (GAS REGULATOR REPAIRER) PHONE: AGE: 74 N# [id number] GENDER: Female ENCOUNTER PHYSICIAN: Dr. Johnson Frausto M.D. ADMISSION DIAGNOSIS: - Debility 16 - Debility (16) SEPSIS/CHF. EATING: EATING - STEP 1: Does the patient complete the activity by him/herself with no assistance (physical, verbal/nonverbal cueing, setup/clean-up)? No. EATING - STEP 2: Does the patient need only setup/clean-up assistance from one helper? No. EATING - STEP 3: Does the patient need only verbal/nonverbal cueing or touching/steadying/contact guard assistance fro m one helper? Yes. 1. [id number] ADMISSION PERFORMANCE: Supervision or touching assistance CODE: 04 ORAL HYGIENE: ORAL HYGIENE - STEP 1: Does the patient complete the activity by him/herself with no assistance (physical, verbal/nonverbal cueing, setup/clean-up)? No. ORAL HYGIENE - STEP 2: Does the patient need only setup/clean-up assistance from one helper? No. ORAL HYGIENE - STEP 3: Does the patient need only verbal/nonverbal cueing or touching/steadying/contact guard assistance fro m one helper? Yes. 1. [id number] ADMISSION PERFORMANCE: Supervision or touching assistance CODE: 04 TOILETING HYGIENE: TOILETING HYGIENE - STEP 1: Does the patient complete the activity by him/herself with no assistance (physical, verbal/nonverbal cueing, setup/clean-up)? No. TOILETING HYGIENE - STEP 2: Does the patient need only setup/clean-up assistance from one helper? No. TOILETING HYGIENE - STEP 3: Does the patient need only verbal/nonverbal cueing or touching/steadying/contact guard assistance fro m one helper? Yes. 1. [id number] ADMISSION PERFORMANCE: Supervision or touching assistance CODE: 04 BATHING: SHOWER/BATHE SELF - STEP 1: Does the patient complete the activity by him/herself with no assistance (physical, verbal/nonverbal cueing, setup/clean-up)? No. SHOWER/BATHE SELF - STEP 2: Does the patient need only setup/clean-up assistance from one helper? No. SHOWER/BATHE SELF - STEP 3: Does the patient need only verbal/nonverbal cueing or touching/steadying/contact guard assistance fro m one helper? Yes. 1. [id number] ADMISSION PERFORMANCE: Supervision or touching assistance CODE: 04 DRESSING - UPPER BODY: Not assessed/no information CODE: - DRESSING - LOWER BODY: Not assessed/no information CODE: - PUTTING ON/TAKING OFF FOOTWEAR: Not assessed/no information CODE: - ROLL LEFT AND RIGHT: Not assessed/no information CODE: - SIT TO LYING: Not assessed/no information CODE: - LYING TO SITTING: LYING TO SITTING ON SIDE OF BED - STEP 1: Does the patient complete the activity by him/herself with no assistance (physical, verbal/nonverbal cueing, setup/clean-up)? No. LYING TO SITTING ON SIDE OF BED - STEP 2: Does the patient need only setup/clean-up assistance from one helper? No. LYING TO SITTING ON SIDE OF BED - STEP 3: Does the patient need only verbal/nonverbal cueing or touching/steadying/contact guard assistance fro m one helper? Yes. 1. [id number] ADMISSION PERFORMANCE: Supervision or touching assistance CODE: 04 SIT TO STAND: SIT TO STAND - STEP 1: Does the patient complete the activity by him/herself with no assistance (physical, verbal/nonverbal cueing, setup/clean-up)? No. SIT TO STAND - STEP 2: Does the patient need only setup/clean-up assistance from one helper? No. SIT TO STAND - STEP 3: Does the patient need only verbal/nonverbal cueing or touching/steadying/contact guard assistance fro m one helper? Yes. 1. [id number] ADMISSION PERFORMANCE: Supervision or touching assistance CODE: 04 TRANSFERS: BED, CHAIR: CHAIR/[id number] TRANSFER - STEP 1: Does the patient complete the activity by him/herself with no assistance (physical, verbal/nonverbal cueing, setup/clean-up)? No. CHAIR/[id number] TRANSFER - STEP 2: Does the patient need only setup/clean-up assistance from one helper? No. CHAIR/[id number]-ALRAW TRANSFER - STEP 3: Does the patient need only verbal/nonverbal cueing or touching/steadying/contact guard assistance fro m one helper? Yes. 1. [id number] ADMISSION PERFORMANCE: Supervision or touching assistance CODE: 04 TRANSFER TOILET: TOILET TRANSFER - STEP 1: Does the patient complete the activity by him/herself with no assistance (physical, verbal/nonverbal cueing, setup/clean-up)? No. TOILET TRANSFER - STEP 2: Does the patient need only setup/clean-up assistance from one helper? No. TOILET TRANSFER - STEP 3: Does the patient need only verbal/nonverbal cueing or touching/steadying/contact guard assistance fro m one helper? Yes. 1. [id number] ADMISSION PERFORMANCE: Supervision or touching assistance CODE: 04 TRANSFERS: CAR: Not assessed/no information CODE: - WALK 10 FEET: Not assessed/no information CODE: - 1 STEP (CURB): Not assessed/no information CODE: - PICKING UP OBJECT: Not assessed/no information CODE: - DOES THE PATIENT USE A WHEELCHAIR/SCOOTER? CODE: EXPR WHEEL 50 FEET WITH TWO TURNS: Not assessed/no information CODE: - INDICATE THE TYPE OF WHEELCHAIR/SCOOTER USED: CODE: EXPR WHEEL 150 FEET: Not assessed/no information CODE: - INDICATE THE TYPE OF WHEELCHAIR/SCOOTER USED: CODE: EXPR BLADDER AND BOWEL: H350. BLADDER CONTINENCE (3-DAY ASSESSMENT PERIOD): Always continent (no documented incontinence) CODE: 0 H400. BOWEL CONTINENCE (3-DAY ASSESSMENT PERIOD): Always continent CODE: 0 SIGNATURE PANEL: The following modified sections: 1. [id number] Admission Performance, 1. [id number] Admission Performance, 1. [id number] Admission Performance, 1. [id number] Admission Performance, 1. IB7630e Admission Performance, 1. DM8136H Admission Performance, 1. [id number] Admission Performance, 1. RN6723Q Admission Performance , 1. [id number] Admission Performance, Code, H350. Bladder Continence (3-day assessment period), H400. B owel Continence (3-day assessment period) were [electronically] signed by Tyson Layne on TueSep 24 09:55:20 GMT-0600 (Central Standard Time)
--- NOTE | 2019-09-24 16:15 | FAST ---
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 Johnson Frausto M.D. ADMISSION DIAGNOSIS: - Debility 16 - Debility (16) SEPSIS/CHF. EATING: Not assessed/no information CODE: - ORAL HYGIENE: ORAL HYGIENE - STEP 1: Does the patient complete the activity by him/herself with no assistance (physical, verbal/nonverbal cueing, setup/clean-up)? Yes. 1. [id number] ADMISSION PERFORMANCE: Independent CODE: 06 TOILETING HYGIENE: TOILETING HYGIENE - STEP 1: Does the patient complete the activity by him/herself with no assistance (physical, verbal/nonverbal cueing, setup/clean-up)? Yes. 1. [id number] ADMISSION PERFORMANCE: Independent CODE: 06 BATHING: SHOWER/BATHE SELF - STEP 1: Does the patient complete the activity by him/herself with no assistance (physical, verbal/nonverbal cueing, setup/clean-up)? Yes. 1. [id number] ADMISSION PERFORMANCE: Independent CODE: 06 DRESSING - UPPER BODY: DRESSING - UPPER BODY - STEP 1: Does the patient complete the activity by him/herself with no assistance (physical, verbal/nonverbal cueing, setup/clean-up)? Yes. 1. [id number] ADMISSION PERFORMANCE: Independent CODE: 06 DRESSING - LOWER BODY: DRESSING - LOWER BODY - STEP 1: Does the patient complete the activity by him/herself with no assistance (physical, verbal/nonverbal cueing, setup/clean-up)? Yes. 1. [id number] ADMISSION PERFORMANCE: Independent CODE: 06 PUTTING ON/TAKING OFF FOOTWEAR: FOOTWEAR - STEP 1: Does the patient complete the activity by him/herself with no assistance (physical, verbal/nonverbal cueing, setup/clean-up)? Yes. 1. [id number] ADMISSION PERFORMANCE: Independent CODE: 06 DOES THE PATIENT USE A WHEELCHAIR/SCOOTER? CODE: EXPR INDICATE THE TYPE OF WHEELCHAIR/SCOOTER USED: CODE: EXPR INDICATE THE TYPE OF WHEELCHAIR/SCOOTER USED: CODE: EXPR BLADDER AND BOWEL: CODE: EXPR CODE: EXPR SIGNATURE PANEL: The following modified sections: 1. [id number] Admission Performance, 1. [id number] Admission Performance, 1. [id number] Admission Performance, 1. [id number] Admission Performance, 1. [id number] Admission Performance, 1. [id number] Admission Performance were [electronically] signed by JAVIER Pfeiffer on TueSep 24 2019 16:14:42 GMT-0600 (Central Standard Time)
--- NOTE | 2019-09-24 18:10 | R.PN ---
ENCOUNTER DATE AND TIME: 09/24/2019 18:01 (ACUTE CARE PHYSICIAN) NAME BREA GILES DATE OF : 1945 DATE OF ADMISSION: 09/18/2019 18:44 (ACUTE CARE PHYSICIAN) SEPSIS/CHFCHIEF COMPLAINT: Debility secondary to CHF and sepsis. SUBJECTIVE: Pt denied any Shortness of Breath. Pt denied any depression. She is doing very well with physical and occupational therapy. She is modified independent with most ADLs. VITAL SIGNS Temperature: 97.5 F SBP/DBP: 150/82 Pulse: 60 Resp: 16 MEDICATION ALLERGIES: No Known Drug Allergies (NKDA) ENVIRONMENTAL ALLERGIES: - Substance Allergies None Known - Other Allergies None Known NURSING: - Shower allowing shower ACTIVITIES OOB only with supervision THERAPIES: - Dietary and Nutrition Adequate Nutrition. Nutritional Education. Nutritional Supplements. PHYSICAL EXAM - Gen Alert and awake Lying in bed No apparent distress Oriented to: person, time, and place - Skin No skin breakdown. Normacephalic - Eyes No abnormalities - ENMT No abnormalities - Neck No abnormalities No cervical adenopathy - CVS RRR - Chest Mildly decreased breath sounds bilaterally. - Resp Clear to auscultation - Abd Soft - GI Non distended Deferred - No abnormalities - Ext Mild bilateral lower extremity edema. - MSK 4+/5 weakness in both lower extremities. - Neuro No focal deficits - Psych No abnormalities ASSESSMENT: Pt. is a 74 yo Right-handed white female.On 09/14/2019 she was admitted to [facility] wi th diagnosis SEPSIS/CHF.Her impairment category is Debility 16 - Debility (16).Pre-morbidly, Pt. was independent/mod-I in Locomotion, Balance, Safety Awareness, Social Cognition, Transfers Control, Com munication, Endurance, and Self-Care; and she had good Locomotion, Balance, Transfers Control, Self-C are, and Endurance.Currently, she has deficits of Locomotion, Safety Awareness, Balance, Transfers Co ntrol, Self-Care, and Endurance.Pt. is now referred to [facility] for acute in -patient rehabilitation in order to maximize patient's functional independence in activities of daily living, strength, ROM, and mobility.- Rehab Goal Patient has realistic goal of being discharged at assistance level 6-Tutu to reside at Home with Fam juan josé/Relatives. MDM/PLAN: - Physical Therapy Gait dysfunction - to improve, our physical therapists will perform initial evaluation of pt's statu s upon admission and devise an individualized program for Gait Training, and Wheel Chair mobility Inability to transfer - to improve, our physical therapists will perform initial evaluation of pt's status upon admission and devise an individualized program for Bed mobility Need for home safety evaluation - to improve, our physical therapists will perform initial evaluatio n of pt's status upon admission and devise an individualized program for Home Evaluation Need in caregiver upon discharge - to improve, our physical therapists will perform initial evaluati on of pt's status upon admission and devise an individualized program for Caregiver Training New precaution - to improve, our physical therapists will perform initial evaluation of pt's status upon admission and devise an individualized program for Patient precaution education Edema - to improve, our physical therapists will perform initial evaluation of pt's status upon admis fina and devise an individualized program for Elevation Training, and Lymphedema Therapy Poor balance - to improve, our physical therapists will perform initial evaluation of pt's status up on admission and devise an individualized program for Balance Training Poor endurance - to improve, our physical therapists will perform initial evaluation of pt's status upon admission and devise an individualized program for Endurance Training Weakness - to improve, our physical therapists will perform initial evaluation of pt's status upon a dmission and devise an individualized program for Aquatic Therapy, Neuromuscular Reeducation, and Str engthening Achieving independence - to improve, our physical therapists will perform initial evaluation of pt's status upon admission and devise an individualized program for Community Reintegration Activities - Occupational Therapy ADL deficits - to improve, our occupation therapists will perform initial evaluation of pt's status upon admission and devise an individualized program for Bathing, Bed mobility, Community Reintegratio n, Cooking, Dressing, Eating, Fine Motor Skills, Grooming, Homemaking, Kitchen Mobility, Laundry, Pat ient Education, Safety Awareness, Splinting - Positioning, Transfers(Toilet, Tub, Shower), and Wheel Chair Management Need for critical care rn - to improve, our occupation therapists will perform initial evaluation of pt's status upon admission and devise an individualized program for Caregiver Training Weakness - to improve, our occupation therapists will perform initial evaluation of pt's status upon admission and devise an individualized program for Aquatic Therapy, Balance, Endurance, UE ROM, and UE strengthening - Other See attached MAR (Medication Administration Record) - Diet Type Continue [facility] 1800kal - Diet - Liquid Texture Continue Regular - Tube Feed Continue N/A - Diet - Solid Texture Continue Regular - Shower allowing shower FUNCTIONAL STATUS: UPDATED AT WEEKLY TEAM CONFERENCE - Bladder Same accident frequency: 7-Ind - No accidents in the past 7 days - Bowel Same accident frequency: 7-Ind - No accidents in the past 7 days - Walking Same score based on distance walked: 0(N/A) Same score based on distance walked: 1(<=50ft) - Wheelchair Same score based on distance traveled: 0(N/A) FUNCTIONAL STATUS: - Self-Care A. Eating Ind B. Grooming Ind C. Bathing Tutu C. Bathing sup E. Dressing - Lower Ind F. Toileting Tutu - Sphincter Control G. Bladder control Ind H. Bowel control Ind - Transfers Control I. Bed/Chair/Wheelchair Tutu J. Toilet Tutu K. Tub/Shower Tutu - Locomotion L. Walk/Wheelchair (B) Tutu M. Stairs Tutu - Communication N. Comprehension (B) Ind O. Expression (B) Ind - Social Cognition P. Social Interaction Ind Q. Problem Solving Ind R. Memory Ind - Endurance Good - Balance Good - Safety Awareness Good QI SCORES: - Self-Care A. Eating 05-Setup or clean-up assistance B. Oral hygiene 05-Setup or clean-up assistance C. Toileting hygiene 04-Supervision or touching assistance E. Shower/bathe self 04-Supervision or touching assistance F. Upper body dressing 03-Partial/moderate assistance G. Lower body dressing 03-Partial/moderate assistance H. Putting on/taking off footwear 03-Partial/moderate assistance - Mobility A. Roll left and right 04-Supervision or touching assistance B. Sit to lying 04-Supervision or touching assistance C. Lying to sitting on side of bed 04-Supervision or touching assistance D. Sit to stand 04-Supervision or touching assistance E. Chair/cwx-st-hamdh transfer 04-Supervision or touching assistance F. Toilet transfer 04-Supervision or touching assistance G. Car transfer 04-Supervision or touching assistance I. Walk 10 feet 04-Supervision or touching assistance J. Walk 50 feet with two turns 88-Not attempted due to medical condition or safety concerns K. Walk 150 feet 88-Not attempted due to medical condition or safety concerns L. Walking 10 feet on uneven surfaces 88-Not attempted due to medical condition or safety concerns M. 1 step (curb) 88-Not attempted due to medical condition or safety concerns N. 4 steps 88-Not attempted due to medical condition or safety concerns O. 12 steps 88-Not attempted due to medical condition or safety concerns P. Picking up object 88-Not attempted due to medical condition or safety concerns R. Wheel 50 feet with two turns 88-Not attempted due to medical condition or safety concerns S. Wheel 150 feet 04-Supervision or touching assistance - Bladder and Bowel Bladder continence 0-Always continent Bowel continence 0-Always continent - Endurance Fair - Balance Fair - Safety Awareness Fair CURRENT FUNC. DEFICITS: Self-Care, Mobility, Endurance, Balance, and Safety Awareness SIGNATURE PANEL: (ACUTE CARE PHYSICIAN)
[2019-09-24] MEDS: LATANOPROST 0.005% 2.5ML OPTH OPTH SCH (19:52)
[2019-09-24] MEDS: MELATONIN 3 MG TABLET PO SCH (19:53)
[2019-09-25] MEDS: TRAMADOL HCL 50 MG TAB PO PRN ×3 (02:18→19:46)
[2019-09-25] MEDS: carvediloL 25 MG TAB PO SCH ×2 (05:04→17:03)
[2019-09-25] MEDS: ENTRESTO PO SCH ×2 (07:06→19:47)
[2019-09-25] MEDS: Meropenem 1,000 MG in NA CHLORIDE 0.9% 100 ML IV SCH ×2 (07:07→19:45)
[2019-09-25] MEDS: OMEPRAZOLE 20 MG CAPSULE PO SCH (07:07)
[2019-09-25] MEDS: INSULIN -REGULAR HUMAN 50 UNIT/0.5 ML ML SQ SCH ×4 (07:30→19:50)
[2019-09-25] MEDS: AMLODIPINE 2.5 MG TAB PO SCH (08:01)
[2019-09-25] MEDS: APIXABAN 5 MG TABLET PO SCH ×2 (08:01→19:46)
[2019-09-25] MEDS: DULOXETINE 30 MG CAP PO SCH ×2 (08:01→19:46)
[2019-09-25] MEDS: BUPROPION HCL XL 150 MG TAB PO SCH (08:01)
[2019-09-25] MEDS: LIDOCAINE 4% PATCH TOP SCH (08:01)
[2019-09-25] MEDS: predniSONE 10 MG TAB PO SCH (08:02)
[2019-09-25] MEDS: AMIODARONE HCL 200 MG TAB PO SCH (08:02)
[2019-09-25] MEDS: GLIMEPIRIDE 2 MG TABLET PO SCH (08:02)
[2019-09-25] MEDS: PROMOD 30 ML DOSE PO SCH ×2 (08:03→19:50)
[2019-09-25] MEDS ORDERED: DOCUSATE NA/SENNA CONC 1 TAB PO PRN (17:57)
[2019-09-25] MEDS ORDERED: Meropenem 0 MG/0 ML BAG ONE (18:57)
[2019-09-25] MEDS ORDERED: Meropenem 1 GM/100 ML BAG ONE (18:58)
[2019-09-25] MEDS: LATANOPROST 0.005% 2.5ML OPTH OPTH SCH (19:46)
[2019-09-25] MEDS: MELATONIN 3 MG TABLET PO SCH (19:50)
[2019-09-25] MEDS: MAGNESIUM OXIDE 400 MG TAB PO SCH (20:00)
[2019-09-26] MEDS: TRAMADOL HCL 50 MG TAB PO PRN ×3 (00:50→20:25)
[2019-09-26] MEDS: carvediloL 25 MG TAB PO SCH ×2 (05:02→17:22)
[2019-09-26] MEDS: OMEPRAZOLE 20 MG CAPSULE PO SCH (06:53)
[2019-09-26] MEDS: INSULIN -REGULAR HUMAN 50 UNIT/0.5 ML ML SQ SCH ×4 (07:27→20:28)
[2019-09-26] MEDS: ENTRESTO PO SCH ×2 (07:41→20:25)
[2019-09-26] MEDS: Meropenem 1,000 MG in NA CHLORIDE 0.9% 100 ML IV SCH ×3 (08:00→20:26)
[2019-09-26] MEDS: PROMOD 30 ML DOSE PO SCH ×3 (08:00→20:28)
[2019-09-26] MEDS ORDERED: AMLODIPINE 2.5 MG TAB PO SCH (08:00)
[2019-09-26] MEDS: APIXABAN 5 MG TABLET PO SCH ×2 (08:45→20:24)
[2019-09-26] MEDS: DULOXETINE 30 MG CAP PO SCH ×2 (08:45→20:23)
[2019-09-26] MEDS: LIDOCAINE 4% PATCH TOP SCH (08:45)
[2019-09-26] MEDS: BUPROPION HCL XL 150 MG TAB PO SCH (08:45)
[2019-09-26] MEDS: AMIODARONE HCL 200 MG TAB PO SCH (08:46)
[2019-09-26] MEDS: predniSONE 10 MG TAB PO SCH (08:46)
[2019-09-26] MEDS: GLIMEPIRIDE 2 MG TABLET PO SCH (08:46)
[2019-09-26] MEDS: MAGNESIUM OXIDE 400 MG TAB PO SCH ×2 (09:54→20:24)
[2019-09-26] MEDS: AMLODIPINE 5 MG TAB PO SCH (09:55)
[2019-09-26] MEDS: LATANOPROST 0.005% 2.5ML OPTH OPTH SCH (20:24)
[2019-09-26] MEDS: MELATONIN 3 MG TABLET PO SCH (20:27)
[2019-09-27] MEDS: TRAMADOL HCL 50 MG TAB PO PRN ×2 (04:11→08:18)
[2019-09-27] MEDS: carvediloL 25 MG TAB PO SCH ×2 (05:51→17:04)
[2019-09-27] MEDS: OMEPRAZOLE 20 MG CAPSULE PO SCH (06:27)
[2019-09-27 06:30] LABS: Absolute Lymphocytes (CBC) 1.4 K/uL (0.7-4.9); Basophils % 1.2 % (0-1.3); Hematocrit 33.2 % (36.0-45.0); Lymphocytes % 15.5 % (15.3-44.8); MPV 7.1 fL (7.6-11.3); RBC Red Blood Cell Count 4.12 M/uL (3.86-4.86)
[2019-09-27 06:46] LABS: Albumin 2.4 g/dL (3.4-5.0); Magnesium 2.1 mg/dL (1.8-2.4); Potassium 4.3 mmol/L (3.5-5.1); Prealbumin 23.5 mg/dL (20-40)
[2019-09-27] MEDS: Meropenem 1,000 MG in NA CHLORIDE 0.9% 100 ML IV SCH ×2 (06:55→20:10)
[2019-09-27] MEDS: ENTRESTO PO SCH ×2 (07:13→20:09)
[2019-09-27] MEDS: AMLODIPINE 5 MG TAB PO SCH (07:14)
[2019-09-27] MEDS: INSULIN -REGULAR HUMAN 50 UNIT/0.5 ML ML SQ SCH ×4 (07:30→20:35)
[2019-09-27] MEDS: PROMOD 30 ML DOSE PO SCH ×2 (08:00→20:10)
[2019-09-27] MEDS: LIDOCAINE 4% PATCH TOP SCH (08:14)
[2019-09-27] MEDS: DULOXETINE 30 MG CAP PO SCH ×2 (08:14→20:08)
[2019-09-27] MEDS: APIXABAN 5 MG TABLET PO SCH ×2 (08:15→20:08)
[2019-09-27] MEDS: BUPROPION HCL XL 150 MG TAB PO SCH (08:15)
[2019-09-27] MEDS: MAGNESIUM OXIDE 400 MG TAB PO SCH ×2 (08:15→20:08)
[2019-09-27] MEDS: AMIODARONE HCL 200 MG TAB PO SCH (08:15)
[2019-09-27] MEDS: GLIMEPIRIDE 2 MG TABLET PO SCH (08:16)
[2019-09-27] MEDS: predniSONE 10 MG TAB PO SCH (08:17)
[2019-09-27 12:58] LABS: Platelet Estimate ADEQ
[2019-09-27 12:59] LABS: Anisocytosis 2+; Blood Morphology Comment NOTED (NOT SEEN); Hypochromasia 1+; Macrocytosis 1+; Platelets, Giant FEW
--- NOTE | 2019-09-27 15:22 | FAST ---
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 Johnson Frausto M.D. ADMISSION DIAGNOSIS: - Debility 16 - Debility (16) SEPSIS/CHF. ROLL LEFT AND RIGHT: ROLL LEFT AND RIGHT - STEP 1: Does the patient complete the activity by him/herself with no assistance (physical, verbal/nonverbal cueing, setup/clean-up)? Yes. 1. [id number] ADMISSION PERFORMANCE: Independent CODE: 06 SIT TO LYING: SIT TO LYING - STEP 1: Does the patient complete the activity by him/herself with no assistance (physical, verbal/nonverbal cueing, setup/clean-up)? Yes. 1. [id number] ADMISSION PERFORMANCE: Independent CODE: 06 LYING TO SITTING: LYING TO SITTING ON SIDE OF BED - STEP 1: Does the patient complete the activity by him/herself with no assistance (physical, verbal/nonverbal cueing, setup/clean-up)? Yes. 1. [id number] ADMISSION PERFORMANCE: Independent CODE: 06 SIT TO STAND: SIT TO STAND - STEP 1: Does the patient complete the activity by him/herself with no assistance (physical, verbal/nonverbal cueing, setup/clean-up)? Yes. 1. [id number] ADMISSION PERFORMANCE: Independent CODE: 06 TRANSFERS: BED, CHAIR: CHAIR/[id number] TRANSFER - STEP 1: Does the patient complete the activity by him/herself with no assistance (physical, verbal/nonverbal cueing, setup/clean-up)? Yes. 1. [id number] ADMISSION PERFORMANCE: Independent CODE: 06 TRANSFER TOILET: TOILET TRANSFER - STEP 1: Does the patient complete the activity by him/herself with no assistance (physical, verbal/nonverbal cueing, setup/clean-up)? Yes. 1. [id number] ADMISSION PERFORMANCE: Independent CODE: 06 TRANSFERS: CAR: Not attempted due to environmental limitations (e.g., lack of equipment, weather constraints) CODE: 10 WALK 10 FEET: WALK 10 FEET - STEP 1: Does the patient complete the activity by him/herself with no assistance (physical, verbal/nonverbal cueing, setup/clean-up)? Yes. 1. [id number] ADMISSION PERFORMANCE: Independent CODE: 06 WALK 50 FEET: WALK 50 FEET - STEP 1: Does the patient complete the activity by him/herself with no assistance (physical, verbal/nonverbal cueing, setup/clean-up)? Yes. 1. [id number] ADMISSION PERFORMANCE: Independent CODE: 06 WALK 150 FEET: WALK 150 FEET - STEP 1: Does the patient complete the activity by him/herself with no assistance (physical, verbal/nonverbal cueing, setup/clean-up)? Yes. 1. [id number] ADMISSION PERFORMANCE: Independent CODE: 06 WALK 10 FEET UNEVEN: Not attempted due to medical condition or safety concerns CODE: 88 1 STEP (CURB): 1 STEP CURB - STEP 1: Does the patient complete the activity by him/herself with no assistance (physical, verbal/nonverbal cueing, setup/clean-up)? Yes. 1. [id number] ADMISSION PERFORMANCE: Independent CODE: 06 4 STEPS: 4 STEPS - STEP 1: Does the patient complete the activity by him/herself with no assistance (physical, verbal/nonverbal cueing, setup/clean-up)? Yes. 1. [id number] ADMISSION PERFORMANCE: Independent CODE: 06 12 STEPS: 12 STEPS - STEP 1: Does the patient complete the activity by him/herself with no assistance (physical, verbal/nonverbal cueing, setup/clean-up)? Yes. 1. [id number] ADMISSION PERFORMANCE: Independent CODE: 06 PICKING UP OBJECT: Not attempted due to medical condition or safety concerns CODE: 88 DOES THE PATIENT USE A WHEELCHAIR/SCOOTER? Q1. DOES THE PATIENT USE A WHEELCHAIR/SCOOTER?: No CODE: 0 INDICATE THE TYPE OF WHEELCHAIR/SCOOTER USED: CODE: EXPR INDICATE THE TYPE OF WHEELCHAIR/SCOOTER USED: CODE: EXPR BLADDER AND BOWEL: CODE: EXPR CODE: EXPR SIGNATURE PANEL: The following modified sections: 1. [id number] Admission Performance, 1. [id number] Admission Performance, 1. [id number] Admission Performance, 1. [id number] Admission Performance, 1. [id number] Admission Performance, 1. [id number] Admission Performance, 1. [id number] Admission Performance, 1. [id number] Admission Performance , 1. [id number] Admission Performance, 1. [id number] Admission Performance, 1. [id number] Admission Performanc e, 1. [id number] Admission Performance, Q1. Does the patient use a wheelchair/scooter? were [electronica lly] signed by Javed Amador PTA on TueSep 27 2019 15:21:41 GMT-0600 (Central Standard Time)
--- NOTE | 2019-09-27 15:38 | FAST ---
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 Johnson Frausto M.D. ADMISSION DIAGNOSIS: - Debility 16 - Debility (16) SEPSIS/CHF. ROLL LEFT AND RIGHT: ROLL LEFT AND RIGHT - STEP 1: Does the patient complete the activity by him/herself with no assistance (physical, verbal/nonverbal cueing, setup/clean-up)? No. ROLL LEFT AND RIGHT - STEP 2: Does the patient need only setup/clean-up assistance from one helper? Yes. 1. [id number] ADMISSION PERFORMANCE: Setup or clean-up assistance CODE: 05 SIT TO LYING: SIT TO LYING - STEP 1: Does the patient complete the activity by him/herself with no assistance (physical, verbal/nonverbal cueing, setup/clean-up)? No. SIT TO LYING - STEP 2: Does the patient need only setup/clean-up assistance from one helper? Yes. 1. [id number] ADMISSION PERFORMANCE: Setup or clean-up assistance CODE: 05 LYING TO SITTING: LYING TO SITTING ON SIDE OF BED - STEP 1: Does the patient complete the activity by him/herself with no assistance (physical, verbal/nonverbal cueing, setup/clean-up)? No. LYING TO SITTING ON SIDE OF BED - STEP 2: Does the patient need only setup/clean-up assistance from one helper? Yes. 1. [id number] ADMISSION PERFORMANCE: Setup or clean-up assistance CODE: 05 SIT TO STAND: SIT TO STAND - STEP 1: Does the patient complete the activity by him/herself with no assistance (physical, verbal/nonverbal cueing, setup/clean-up)? No. SIT TO STAND - STEP 2: Does the patient need only setup/clean-up assistance from one helper? Yes. 1. [id number] ADMISSION PERFORMANCE: Setup or clean-up assistance CODE: 05 TRANSFERS: BED, CHAIR: CHAIR/[id number] TRANSFER - STEP 1: Does the patient complete the activity by him/herself with no assistance (physical, verbal/nonverbal cueing, setup/clean-up)? No. CHAIR/OVD-CU-NUPHA TRANSFER - STEP 2: Does the patient need only setup/clean-up assistance from one helper? Yes. 1. [id number] ADMISSION PERFORMANCE: Setup or clean-up assistance CODE: 05 TRANSFER TOILET: TOILET TRANSFER - STEP 1: Does the patient complete the activity by him/herself with no assistance (physical, verbal/nonverbal cueing, setup/clean-up)? No. TOILET TRANSFER - STEP 2: Does the patient need only setup/clean-up assistance from one helper? Yes. 1. [id number] ADMISSION PERFORMANCE: Setup or clean-up assistance CODE: 05 TRANSFERS: CAR: Not attempted due to environmental limitations (e.g., lack of equipment, weather constraints) CODE: 10 WALK 10 FEET: WALK 10 FEET - STEP 1: Does the patient complete the activity by him/herself with no assistance (physical, verbal/nonverbal cueing, setup/clean-up)? No. WALK 10 FEET - STEP 2: Does the patient need only setup/clean-up assistance from one helper? Yes. 1. [id number] ADMISSION PERFORMANCE: Setup or clean-up assistance CODE: 05 WALK 50 FEET: WALK 50 FEET - STEP 1: Does the patient complete the activity by him/herself with no assistance (physical, verbal/nonverbal cueing, setup/clean-up)? No. WALK 50 FEET - STEP 2: Does the patient need only setup/clean-up assistance from one helper? Yes. 1. [id number] ADMISSION PERFORMANCE: Setup or clean-up assistance CODE: 05 WALK 150 FEET: WALK 150 FEET - STEP 1: Does the patient complete the activity by him/herself with no assistance (physical, verbal/nonverbal cueing, setup/clean-up)? No. WALK 150 FEET - STEP 2: Does the patient need only setup/clean-up assistance from one helper? Yes. 1. [id number] ADMISSION PERFORMANCE: Setup or clean-up assistance CODE: 05 WALK 10 FEET UNEVEN: Not attempted due to medical condition or safety concerns CODE: 88 1 STEP (CURB): 1 STEP CURB - STEP 1: Does the patient complete the activity by him/herself with no assistance (physical, verbal/nonverbal cueing, setup/clean-up)? No. 1 STEP CURB - STEP 2: Does the patient need only setup/clean-up assistance from one helper? Yes. 1. [id number] ADMISSION PERFORMANCE: Setup or clean-up assistance CODE: 05 4 STEPS: 4 STEPS - STEP 1: Does the patient complete the activity by him/herself with no assistance (physical, verbal/nonverbal cueing, setup/clean-up)? No. 4 STEPS - STEP 2: Does the patient need only setup/clean-up assistance from one helper? Yes. 1. [id number] ADMISSION PERFORMANCE: Setup or clean-up assistance CODE: 05 12 STEPS: 12 STEPS - STEP 1: Does the patient complete the activity by him/herself with no assistance (physical, verbal/nonverbal cueing, setup/clean-up)? No. 12 STEPS - STEP 2: Does the patient need only setup/clean-up assistance from one helper? Yes. 1. [id number] ADMISSION PERFORMANCE: Setup or clean-up assistance CODE: 05 PICKING UP OBJECT: Not attempted due to medical condition or safety concerns CODE: 88 DOES THE PATIENT USE A WHEELCHAIR/SCOOTER? Q1. DOES THE PATIENT USE A WHEELCHAIR/SCOOTER?: No CODE: 0 INDICATE THE TYPE OF WHEELCHAIR/SCOOTER USED: CODE: EXPR INDICATE THE TYPE OF WHEELCHAIR/SCOOTER USED: CODE: EXPR BLADDER AND BOWEL: CODE: EXPR CODE: EXPR SIGNATURE PANEL: The following modified sections: 1. [id number] Admission Performance, 1. [id number] Admission Performance, 1. [id number] Admission Performance, 1. [id number] Admission Performance, 1. [id number] Admission Performance, 1. [id number] Admission Performance, 1. [id number] Admission Performance, 1. [id number] Admission Performance , 1. [id number] Admission Performance, 1. IN7767C Admission Performance, 1. [id number] Admission Performanc e, 1. [id number] Admission Performance, Q1. Does the patient use a wheelchair/scooter? were [electronica lly] signed by Javed Amador PTA on TueSep 27 2019 15:37:48 GMT-0600 (Central Standard Time)
--- NOTE | 2019-09-27 16:32 | FAST ---
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 Johnson Frausto M.D. ADMISSION DIAGNOSIS: - Debility 16 - Debility (16) SEPSIS/CHF. EATING: EATING - STEP 1: Does the patient complete the activity by him/herself with no assistance (physical, verbal/nonverbal cueing, setup/clean-up)? Yes. 1. [id number] ADMISSION PERFORMANCE: Independent CODE: 06 ORAL HYGIENE: ORAL HYGIENE - STEP 1: Does the patient complete the activity by him/herself with no assistance (physical, verbal/nonverbal cueing, setup/clean-up)? Yes. 1. [id number] ADMISSION PERFORMANCE: Independent CODE: 06 TOILETING HYGIENE: TOILETING HYGIENE - STEP 1: Does the patient complete the activity by him/herself with no assistance (physical, verbal/nonverbal cueing, setup/clean-up)? Yes. 1. [id number] ADMISSION PERFORMANCE: Independent CODE: 06 BATHING: Not assessed/no information CODE: - DRESSING - UPPER BODY: DRESSING - UPPER BODY - STEP 1: Does the patient complete the activity by him/herself with no assistance (physical, verbal/nonverbal cueing, setup/clean-up)? Yes. 1. [id number] ADMISSION PERFORMANCE: Independent CODE: 06 DRESSING - LOWER BODY: DRESSING - LOWER BODY - STEP 1: Does the patient complete the activity by him/herself with no assistance (physical, verbal/nonverbal cueing, setup/clean-up)? Yes. 1. [id number] ADMISSION PERFORMANCE: Independent CODE: 06 PUTTING ON/TAKING OFF FOOTWEAR: FOOTWEAR - STEP 1: Does the patient complete the activity by him/herself with no assistance (physical, verbal/nonverbal cueing, setup/clean-up)? Yes. 1. [id number] ADMISSION PERFORMANCE: Independent CODE: 06 ROLL LEFT AND RIGHT: ROLL LEFT AND RIGHT - STEP 1: Does the patient complete the activity by him/herself with no assistance (physical, verbal/nonverbal cueing, setup/clean-up)? Yes. 1. [id number] ADMISSION PERFORMANCE: Independent CODE: 06 SIT TO LYING: SIT TO LYING - STEP 1: Does the patient complete the activity by him/herself with no assistance (physical, verbal/nonverbal cueing, setup/clean-up)? Yes. 1. [id number] ADMISSION PERFORMANCE: Independent CODE: 06 LYING TO SITTING: LYING TO SITTING ON SIDE OF BED - STEP 1: Does the patient complete the activity by him/herself with no assistance (physical, verbal/nonverbal cueing, setup/clean-up)? Yes. 1. [id number] ADMISSION PERFORMANCE: Independent CODE: 06 SIT TO STAND: SIT TO STAND - STEP 1: Does the patient complete the activity by him/herself with no assistance (physical, verbal/nonverbal cueing, setup/clean-up)? Yes. 1. [id number] ADMISSION PERFORMANCE: Independent CODE: 06 TRANSFERS: BED, CHAIR: CHAIR/[id number] TRANSFER - STEP 1: Does the patient complete the activity by him/herself with no assistance (physical, verbal/nonverbal cueing, setup/clean-up)? Yes. 1. [id number] ADMISSION PERFORMANCE: Independent CODE: 06 TRANSFER TOILET: TOILET TRANSFER - STEP 1: Does the patient complete the activity by him/herself with no assistance (physical, verbal/nonverbal cueing, setup/clean-up)? No. TOILET TRANSFER - STEP 2: Does the patient need only setup/clean-up assistance from one helper? Yes. 1. [id number] ADMISSION PERFORMANCE: Setup or clean-up assistance CODE: 05 TRANSFERS: CAR: Not assessed/no information CODE: - WALK 10 FEET: Not assessed/no information CODE: - 1 STEP (CURB): Not assessed/no information CODE: - PICKING UP OBJECT: Not assessed/no information CODE: - DOES THE PATIENT USE A WHEELCHAIR/SCOOTER? Q1. DOES THE PATIENT USE A WHEELCHAIR/SCOOTER?: Yes CODE: 1 WHEEL 50 FEET WITH TWO TURNS: WHEEL 50 FEET WITH TWO TURNS - STEP 1: Does the patient complete the activity by him/herself with no assistance (physical, verbal/nonverbal cueing, setup/clean-up)? No. WHEEL 50 FEET WITH TWO TURNS - STEP 2: Does the patient need only setup/clean-up assistance from one helper? Yes. 1. [id number] ADMISSION PERFORMANCE: Setup or clean-up assistance CODE: 05 INDICATE THE TYPE OF WHEELCHAIR/SCOOTER USED: RR1. INDICATE THE TYPE OF WHEELCHAIR/SCOOTER USED.: Manual CODE: 1 WHEEL 150 FEET: Not assessed/no information CODE: - INDICATE THE TYPE OF WHEELCHAIR/SCOOTER USED: CODE: EXPR BLADDER AND BOWEL: H350. BLADDER CONTINENCE (3-DAY ASSESSMENT PERIOD): Always continent (no documented incontinence) CODE: 0 H400. BOWEL CONTINENCE (3-DAY ASSESSMENT PERIOD): Always continent CODE: 0 SIGNATURE PANEL: The following modified sections: 1. [id number] Admission Performance, 1. [id number] Admission Performance, 1. [id number] Admission Performance, 1. [id number] Admission Performance, 1. ID1610l Admission Performance, 1. HP0352j Admission Performance, 1. [id number] Admission Performance, 1. [id number] Admission Performance , 1. [id number] Admission Performance, 1. TC0764I Admission Performance, 1. FL1773T Admission Performanc e, 1. [id number] Admission Performance, Q1. Does the patient use a wheelchair/scooter?, 1. [id number] Admis fina Performance, RR1. Indicate the type of wheelchair/scooter used., Code, H350. Bladder Continence (3-day assessment period), H400. Bowel Continence (3-day assessment period) were [electronically] sig roman by Betty [email or web address].[email or web address] on TueSep 27 2019 16:31:18 T-0600 (Central Standard Time)
--- NOTE | 2019-09-27 17:47 | R.PN ---
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 SUBJECTIVE: Pt denied any Shortness of Breath. Pt denied any depression. She is doing very well with physical and occupational therapy. She is modified independent with most ADLs. Ambulated 1000' with independence using a rollator. Up and down 15 steps with independence. WBC 9.0, Hgb 10.3, prealbumin 23.5, sodium 146, glucose 96 to 184. VITAL SIGNS Temperature: 97.7 F SBP/DBP: 137/64 Pulse: 64 Resp: 16 MEDICATION ALLERGIES: No Known Drug Allergies (NKDA) ENVIRONMENTAL ALLERGIES: - Substance Allergies None Known - Other Allergies None Known NURSING: - Shower allowing shower ACTIVITIES OOB only with supervision THERAPIES: - Dietary and Nutrition Adequate Nutrition. Nutritional Education. Nutritional Supplements. PHYSICAL EXAM - Gen Alert and awake Lying in bed No apparent distress Oriented to: person, time, and place - Skin No skin breakdown. Normacephalic - Eyes No abnormalities - ENMT No abnormalities - Neck No abnormalities No cervical adenopathy - CVS RRR - Chest Mildly decreased breath sounds bilaterally. - Resp Clear to auscultation - Abd Soft - GI Non distended Deferred - No abnormalities - Ext Mild bilateral lower extremity edema. - MSK 4+/5 weakness in both lower extremities. - Neuro No focal deficits - Psych No abnormalities ASSESSMENT: Pt. is a 74 yo Right-handed white female.On 09/14/2019 she was admitted to [facility] th diagnosis SEPSIS/CHF.Her impairment category is Debility 16 - Debility (16).Pre-morbidly, Pt. was independent/mod-I in Locomotion, Balance, Safety Awareness, Social Cognition, Transfers Control, Com munication, Endurance, and Self-Care; and she had good Locomotion, Balance, Transfers Control, Self-C are, and Endurance.Currently, she has deficits of Locomotion, Safety Awareness, Balance, Transfers Co ntrol, Self-Care, and Endurance.Pt. is now referred to [facility] for acute in -patient rehabilitation in order to maximize patient's functional independence in activities of daily living, strength, ROM, and mobility.- Rehab Goal Patient has realistic goal of being discharged at assistance level 6-Tutu to reside at Home with Fam juan josé/Relatives. MDM/PLAN: - Physical Therapy Gait dysfunction - to improve, our physical therapists will perform initial evaluation of pt's statu s upon admission and devise an individualized program for Gait Training, and Wheel Chair mobility Inability to transfer - to improve, our physical therapists will perform initial evaluation of pt's status upon admission and devise an individualized program for Bed mobility Need for home safety evaluation - to improve, our physical therapists will perform initial evaluatio n of pt's status upon admission and devise an individualized program for Home Evaluation Need in caregiver upon discharge - to improve, our physical therapists will perform initial evaluati on of pt's status upon admission and devise an individualized program for Caregiver Training New precaution - to improve, our physical therapists will perform initial evaluation of pt's status upon admission and devise an individualized program for Patient precaution education Edema - to improve, our physical therapists will perform initial evaluation of pt's status upon admi ssion and devise an individualized program for Elevation Training, and Lymphedema Therapy Poor balance - to improve, our physical therapists will perform initial evaluation of pt's status up on admission and devise an individualized program for Balance Training Poor endurance - to improve, our physical therapists will perform initial evaluation of pt's status upon admission and devise an individualized program for Endurance Training Weakness - to improve, our physical therapists will perform initial evaluation of pt's status upon a dmission and devise an individualized program for Aquatic Therapy, Neuromuscular Reeducation, and Str engthening Achieving independence - to improve, our physical therapists will perform initial evaluation of pt's status upon admission and devise an individualized program for Community Reintegration Activities - Occupational Therapy ADL deficits - to improve, our occupation therapists will perform initial evaluation of pt's status upon admission and devise an individualized program for Bathing, Bed mobility, Community Reintegratio n, Cooking, Dressing, Eating, Fine Motor Skills, Grooming, Homemaking, Kitchen Mobility, Laundry, Pat ient Education, Safety Awareness, Splinting - Positioning, Transfers(Toilet, Tub, Shower), and Wheel Chair Management Need for healthcare educator - to improve, our occupation therapists will perform initial evaluation of pt's status upon admission and devise an individualized program for Caregiver Training Weakness - to improve, our occupation therapists will perform initial evaluation of pt's status upon admission and devise an individualized program for Aquatic Therapy, Balance, Endurance, UE ROM, and UE strengthening - Other See attached MAR (Medication Administration Record) - [facility] - Diet - Liquid Texture Continue Regular - Tube Feed Continue N/A - Diet - Solid Texture Continue Regular - Shower allowing shower FUNCTIONAL STATUS: UPDATED AT WEEKLY TEAM CONFERENCE - Bladder Same accident frequency: 7-Ind - No accidents in the past 7 days - Bowel Same accident frequency: 7-Ind - No accidents in the past 7 days - Walking Same score based on distance walked: 0(N/A) Same score based on distance walked: 1(<=50ft) - Wheelchair Same score based on distance traveled: 0(N/A) FUNCTIONAL STATUS: - Self-Care A. Eating Ind B. Grooming Ind C. Bathing Tutu C. Bathing sup E. Dressing - Lower Ind F. Toileting Tutu - Sphincter Control G. Bladder control Ind H. Bowel control Ind - Transfers Control I. Bed/Chair/Wheelchair Tutu J. Toilet Tutu K. Tub/Shower Tutu - Locomotion L. Walk/Wheelchair (B) Tutu M. Stairs Tutu - Communication N. Comprehension (B) Ind O. Expression (B) Ind - Social Cognition P. Social Interaction Ind Q. Problem Solving Ind R. Memory Ind - Endurance Good - Balance Good - Safety Awareness Good QI SCORES: - Self-Care A. Eating 05-Setup or clean-up assistance B. Oral hygiene 05-Setup or clean-up assistance C. Toileting hygiene 04-Supervision or touching assistance E. Shower/bathe self 04-Supervision or touching assistance F. Upper body dressing 03-Partial/moderate assistance G. Lower body dressing 03-Partial/moderate assistance H. Putting on/taking off footwear 03-Partial/moderate assistance - Mobility A. Roll left and right 04-Supervision or touching assistance B. Sit to lying 04-Supervision or touching assistance C. Lying to sitting on side of bed 04-Supervision or touching assistance D. Sit to stand 04-Supervision or touching assistance E. Chair/pox-au-tmuga transfer 04-Supervision or touching assistance F. Toilet transfer 04-Supervision or touching assistance G. Car transfer 04-Supervision or touching assistance I. Walk 10 feet 04-Supervision or touching assistance J. Walk 50 feet with two turns 88-Not attempted due to medical condition or safety concerns K. Walk 150 feet 88-Not attempted due to medical condition or safety concerns L. Walking 10 feet on uneven surfaces 88-Not attempted due to medical condition or safety concerns M. 1 step (curb) 88-Not attempted due to medical condition or safety concerns N. 4 steps 88-Not attempted due to medical condition or safety concerns O. 12 steps 88-Not attempted due to medical condition or safety concerns P. Picking up object 88-Not attempted due to medical condition or safety concerns R. Wheel 50 feet with two turns 88-Not attempted due to medical condition or safety concerns S. Wheel 150 feet 04-Supervision or touching assistance - Bladder and Bowel Bladder continence 0-Always continent Bowel continence 0-Always continent - Endurance Fair - Balance Fair - Safety Awareness Fair CURRENT FUNC. 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
[2019-09-27] MEDS: LATANOPROST 0.005% 2.5ML OPTH OPTH SCH (20:09)
[2019-09-27] MEDS: MELATONIN 3 MG TABLET PO SCH (21:00)
[2019-09-28] MEDS: TRAMADOL HCL 50 MG TAB PO PRN ×4 (00:04→19:34)
[2019-09-28] MEDS: carvediloL 25 MG TAB PO SCH ×2 (05:46→17:11)
[2019-09-28] MEDS: ENTRESTO PO SCH ×2 (06:55→19:33)
[2019-09-28] MEDS: Meropenem 1,000 MG in NA CHLORIDE 0.9% 100 ML IV SCH ×2 (06:56→19:33)
[2019-09-28] MEDS: OMEPRAZOLE 20 MG CAPSULE PO SCH (06:56)
[2019-09-28] MEDS: INSULIN -REGULAR HUMAN 50 UNIT/0.5 ML ML SQ SCH ×4 (07:21→19:36)
[2019-09-28] MEDS: MAGNESIUM OXIDE 400 MG TAB PO SCH ×2 (08:46→19:35)
[2019-09-28] MEDS: GLIMEPIRIDE 2 MG TABLET PO SCH (08:46)
[2019-09-28] MEDS: APIXABAN 5 MG TABLET PO SCH ×2 (08:46→19:35)
[2019-09-28] MEDS: predniSONE 10 MG TAB PO SCH (08:46)
[2019-09-28] MEDS: AMLODIPINE 5 MG TAB PO SCH ×2 (08:46→19:34)
[2019-09-28] MEDS: LIDOCAINE 4% PATCH TOP SCH (08:46)
[2019-09-28] MEDS: DULOXETINE 30 MG CAP PO SCH ×2 (08:46→19:34)
[2019-09-28] MEDS: BUPROPION HCL XL 150 MG TAB PO SCH (08:46)
[2019-09-28] MEDS: PROMOD 30 ML DOSE PO SCH ×2 (08:47→19:35)
[2019-09-28] MEDS: AMIODARONE HCL 200 MG TAB PO SCH (08:47)
--- NOTE | 2019-09-28 10:05 | P.RH.PN ---
Estimated Length of Stay: 12 Expected Discharge Date: 09/29/19 Discharge Disposition Plan: Home Family Support: Yes Jail Goal: Mobility, Transfers, Self Care Vital Signs: Last Vital Signs Temp 97.6 F 09/28/19 07:01 Pulse 60 09/28/19 08:46 Resp 18 09/28/19 08:49 BP 177/79 H 09/28/19 08:46 Pulse Ox 93 09/28/19 08:49 Laboratory: Laboratory Last Values WBC 9.0 K/uL (4.3-10.9) 09/27/19 05:45 RBC 4.12 M/uL (3.86-4.86) 09/27/19 05:45 Hgb 10.3 g/dL (12.0-15.0) L 09/27/19 05:45 Hct 33.2 % (36.0-45.0) L 09/27/19 05:45 MCV 80.6 fL (80-100) 09/27/19 05:45 MCH 24.9 pg (27.0-35.0) L 09/27/19 05:45 MCHC 30.9 g/dL (32.0-36.0) L 09/27/19 05:45 RDW 20.8 % (12.1-15.2) H 09/27/19 05:45 Plt Count 454 K/uL (152-406) H D 09/27/19 05:45 MPV 7.1 fL (7.6-11.3) L 09/27/19 05:45 Neutrophils % 74.4 % (41.7-73.7) H 09/27/19 05:45 Lymphocytes % 15.5 % (15.3-44.8) 09/27/19 05:45 Monocytes % 8.0 % (3.3-12.3) 09/27/19 05:45 Eosinophils % 0.9 % (0-4.4) 09/27/19 05:45 Basophils % 1.2 % (0-1.3) 09/27/19 05:45 Absolute Neutrophils 6.7 K/uL (1.8-8.0) 09/27/19 05:45 Segmented Neutrophils 80 % (40-80) 09/27/19 05:45 Band Neutrophils 1 % (0-1) 09/27/19 05:45 Absolute Lymphocytes 1.4 K/uL (0.7-4.9) 09/27/19 05:45 Lymphocytes 12 % (15-42) L 09/27/19 05:45 Monocytes 5 % (0-10) 09/27/19 05:45 Absolute Monocytes 0.7 K/uL (0.1-1.3) 09/27/19 05:45 Eosinophils 1 % (0-3) 09/27/19 05:45 Absolute Eosinophils 0.1 K/uL (0-0.5) 09/27/19 05:45 Absolute Basophils 0.1 K/uL (0-0.5) 09/27/19 05:45 Metamyelocytes 1 % (0-0) H 09/27/19 05:45 Myelocytes 1 % (0-0) H 09/19/19 05:44 Giant Platelets Few 09/27/19 05:45 Hypochromasia 1+ 09/27/19 05:45 Microcytosis 1+ 09/19/19 05:44 Anisocytosis 2+ 09/27/19 05:45 Macrocytosis 1+ 09/27/19 05:45 Morphology Comment Noted (NOT SEEN) 09/27/19 05:45 Sodium 146 mmol/L (136-145) H 09/27/19 05:45 Potassium 4.3 mmol/L (3.5-5.1) 09/27/19 05:45 Chloride 110 mmol/L (98-107) H 09/27/19 05:45 Carbon Dioxide 34 mmol/L (21-32) H 09/27/19 05:45 BUN 16 mg/dL (7-18) 09/27/19 05:45 Creatinine 0.77 mg/dL (0.55-1.3) 09/27/19 05:45 Estimated GFR 73 mL/min (=/>90) L 09/27/19 05:45 Glucose 96 mg/dL (74-106) 09/27/19 05:45 POC Glucose 83 mg/dl (65-120) 09/28/19 06:59 Calcium 8.6 mg/dL (8.5-10.1) 09/27/19 05:45 Magnesium 2.1 mg/dL (1.8-2.4) 09/27/19 05:45 Albumin 2.4 g/dL (3.4-5.0) L 09/27/19 05:45 Prealbumin 23.5 mg/dL (20-40) 09/27/19 05:45 Digoxin 0.50 ng/mL (0.80-2.00) L 09/19/19 05:44 Weight: 218 lb 1 oz Wound Present: No Closed Surgical Incision Present: No Negative Pressure Wound Therapy Present: No Physician Update: Her BP is elevated to the 170s. Will increase amiodarone to 5 mg bid. She is doing very well with physical and occupational theapy and will be discharged home in the AM with [facility] home health. Medical Issues: Sepsis on Meropenem 1gm Q12H IVPB X 14 days. PAtient is always continent with bladder and bowel Functional Improvement: Patient has met all short-term goals at this time, and is progressing well toward long-term goals. Patient will attempt a car transfer tomorrow, provided that the car is available. Summary: Patient's care plan and intermediate goals have been reviewed and revised as necessary. Please see the Rehabilitation Signature page for all necessary signatures.
[2019-09-28] MEDS: LATANOPROST 0.005% 2.5ML OPTH OPTH SCH (19:32)
[2019-09-28] MEDS: MELATONIN 3 MG TABLET PO SCH (19:35)
[2019-09-28] MEDS ORDERED: TOPIRAMATE 25 MG TAB PO SCH (21:00)
[2019-09-29] MEDS: carvediloL 25 MG TAB PO SCH (05:03)
[2019-09-29] MEDS: TRAMADOL HCL 50 MG TAB PO PRN (05:03)
[2019-09-29] MEDS: OMEPRAZOLE 20 MG CAPSULE PO SCH (06:37)
[2019-09-29] MEDS: Meropenem 1,000 MG in NA CHLORIDE 0.9% 100 ML IV SCH (06:37)
[2019-09-29] MEDS: LIDOCAINE 4% PATCH TOP SCH (06:59)
[2019-09-29 07:22] VITALS: TEMP 97.4
[2019-09-29] MEDS: INSULIN -REGULAR HUMAN 50 UNIT/0.5 ML ML SQ SCH (07:25)
[2019-09-29] MEDS: predniSONE 10 MG TAB PO SCH (08:02)
[2019-09-29] MEDS: APIXABAN 5 MG TABLET PO SCH (08:03)
[2019-09-29] MEDS: AMIODARONE HCL 200 MG TAB PO SCH (08:03)
[2019-09-29] MEDS: MAGNESIUM OXIDE 400 MG TAB PO SCH (08:03)
[2019-09-29] MEDS: DULOXETINE 30 MG CAP PO SCH (08:03)
[2019-09-29] MEDS: AMLODIPINE 5 MG TAB PO SCH (08:03)
[2019-09-29] MEDS: GLIMEPIRIDE 2 MG TABLET PO SCH (08:03)
[2019-09-29] MEDS: BUPROPION HCL XL 150 MG TAB PO SCH (08:03)
[2019-09-29] MEDS: ENTRESTO PO SCH (08:04)
[2019-09-29] MEDS: PROMOD 30 ML DOSE PO SCH (08:04)
[2019-09-29 10:49] VITALS: BP 139/74
--- NOTE | 2019-09-29 12:14 | FAST ---
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 Johnson Frausto M.D. ADMISSION DIAGNOSIS: - Debility 16 - Debility (16) SEPSIS/CHF. EATING: Not assessed/no information CODE: - ORAL HYGIENE: ORAL HYGIENE - STEP 1: Does the patient complete the activity by him/herself with no assistance (physical, verbal/nonverbal cueing, setup/clean-up)? Yes. 1. ADMISSION PERFORMANCE: Independent CODE: 06 TOILETING HYGIENE: Not assessed/no information CODE: - BATHING: SHOWER/BATHE SELF - STEP 1: Does the patient complete the activity by him/herself with no assistance (physical, verbal/nonverbal cueing, setup/clean-up)? Yes. 1. ADMISSION PERFORMANCE: Independent CODE: 06 DRESSING - UPPER BODY: DRESSING - UPPER BODY - STEP 1: Does the patient complete the activity by him/herself with no assistance (physical, verbal/nonverbal cueing, setup/clean-up)? Yes. 1. ADMISSION PERFORMANCE: Independent CODE: 06 DRESSING - LOWER BODY: DRESSING - LOWER BODY - STEP 1: Does the patient complete the activity by him/herself with no assistance (physical, verbal/nonverbal cueing, setup/clean-up)? Yes. 1. ADMISSION PERFORMANCE: Independent CODE: 06 PUTTING ON/TAKING OFF FOOTWEAR: FOOTWEAR - STEP 1: Does the patient complete the activity by him/herself with no assistance (physical, verbal/nonverbal cueing, setup/clean-up)? Yes. 1. ADMISSION PERFORMANCE: Independent CODE: 06 DOES THE PATIENT USE A WHEELCHAIR/SCOOTER? CODE: EXPR INDICATE THE TYPE OF WHEELCHAIR/SCOOTER USED: CODE: EXPR INDICATE THE TYPE OF WHEELCHAIR/SCOOTER USED: CODE: EXPR BLADDER AND BOWEL: CODE: EXPR CODE: EXPR SIGNATURE PANEL: The following modified sections: 1. [id number] Admission Performance, 1. [id number] Admission Performance, 1. [id number] Admission Performance, 1. [id number] Admission Performance, 1. [id number] Admission Performance were [electronically] signed by JAVIER Pfeiffer on Sat Sep 29 2019 12:12:43 GMT-0600 (Central Standard Time)
== END 2019-09-29 11:00 | disposition home health service (06) | DRG 872 ==
LOC: 5TH 09-18 18:44
PROVIDERS: ADMIT Psychiatry & Neurology Neurology with Special Qualifications in Child Neurology; ATTEND Psychiatry & Neurology Neurology with Special Qualifications in Child Neurology
DX: A41.9 Sepsis, unspecified organism (principal); K57.92 Diverticulitis of intestine, part unspecified, without perforation or abscess without bleeding; I50.9 Heart failure, unspecified; R53.81 Other malaise; M79.7 Fibromyalgia; I11.0 Hypertensive heart disease with heart failure; I48.91 Unspecified atrial fibrillation; Z96.651 Presence of right artificial knee joint; D33.2 Benign neoplasm of brain, unspecified
CPT/HCPCS: 36415; 80048; 80162; 82040; 82947; 83735; 84134; 85025; 94640; 97110; 97116; 97161; 97530; J2185; J7512

== ENCOUNTER 2023-01-21 13:02 | Inpatient (IN) | payer OTHER ==
--- OUTSIDE RECORDS SUMMARY | 2023-01-21 13:11 | XMS REPORT | Continuity of Care Document ---
:1945 Author Organization [facility] t Address [address] [place] [address] [place] [id number] Care Team Providers Name Role Phone Vira Hyde MD Primary Care Physician [phone] PATSY MCCONNELL Attending Clinician Unavailable DANIEL MCKEON Attending Clinician Unavailable NIMISHA CÁRDENAS Attending Clinician Unavailable VIRA HYDE Attending Clinician Unavailable LAB90 Attending Clinician Unavailable COLLEEN BROWN Attending Clinician Unavailable POLLO ENGLISH Attending Clinician Unavailable Pollo English MD Attending Clinician POLLO ENGLISH Attending Clinician Unavailable MD GARRETT Attending Clinician Unavailable LAB47 Attending Clinician Unavailable Colleen Erickson Attending Clinician DEEPAK DELONG Attending Clinician Unavailable LETY RECIO Attending Clinician Unavailable [facility] OTWAY Attending Clinician Unavailable SWAB, CK COVID SELF Attending Clinician Unavailable Deepak Delong MD Attending Clinician SLOAN NAGY Attending Clinician Unavailable DMITRY DECKER Attending Clinician Unavailable DESIREE RAHMAN Attending Clinician Unavailable SAYRA RAHMAN Attending Clinician Unavailable Vira Hyde MD Attending Clinician [phone] ELYSSA BEARD Attending Clinician Unavailable AICHA ALVARADO Attending Clinician Unavailable Beau Claire Attending Clinician Unavailable JOBY CRAWFORD Attending Clinician Unavailable JAYLIN BEARD Attending Clinician Unavailable JONA CORRALES Attending Clinician Unavailable Physician, No Primary or Family Admitting Clinician Unavaila ble Payers Payer Name Policy Type Policy Number Effective Date Expiration Date Melia RAPHAEL GOLD FREEDOM 16 [id number] 2021 00:00:00 HMO-POS Problems Condition Condition Condition Status Onset Resolution Last Treating Co mments Source Name Details Category Date Date Treatment Clinician Date Paresthesi Paresthesi Disease Active Last K elsey as - Not as - Not 06-22 Assessmen Sey bold Controlled Controlled 00:00: t & Plan: - 00 Formattin Externa g of this l note might be different from the original. - continue to monitor for worsening Meningioma Meningioma Disease Active Last K elsetrent (HCC) - (HCC) - 06-22 Assessmen Seybo ld Unchanged Unchanged 00:00: t & Plan: - 00 Formattin Externa g of this l note might be different from the original. 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 00:00: - eyes eyes 00 Externa l Bacteremia Bacteremia Disease Active K elsey - - 1-20 Seybold Unchanged Unchanged 00:00: - 00 Externa l GERD GERD Disease Active 2020-10 Adeola (gastroeso (gastroeso 2-06 Se ybold phageal phageal 00:00: - reflux reflux 00 Externa disease) disease) l Hypertensi Hypertensi Disease Active K elsetrent on, on, 9-13 Seybold essential essential 00:00: - 00 Externa l Congestive Congestive Disease Active K elsey heart heart 04-28 Seybold failure failure 00:00: - 00 Externa l 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 04-28 Se ybold disorder, disorder, 00:00: - single single 00 Externa episode, episode, l severe severe Type 2 Type 2 Disease Active Adeola diabetes diabetes 04-28 Seybol d mellitus mellitus 00:00: - with stage with stage 00 Ex terna 4 chronic 4 chronic l kidney kidney disease disease GFR 15-29 GFR 15-29 Chronic Chronic Disease Active Adeola kidney kidney 04-28 Seybold disease, disease, 00:00: - stage IV stage IV 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 (severe) (severe) l Hypertensi Hypertensi Disease Active K elsey ve heart ve heart 04-28 Seybol d and renal and renal 00:00: - disease disease 00 Externa with with l congestive congestive heart heart failure failure 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) 00:00: - 00 Externa l Allergies, Adverse Reactions, Alerts Allergy Allergy Status Severity Reaction(s) Onset Inactive Treating Comm ents Source Name Type Date Date Clinician No Known DA Active [facility] 23 Clear s 00:00: [place] 00 [facility] No Known DA Active [facility] Allergie 9-23 Clear s 00:00: [place] 00 [facility] Sugar-Pr Propensi Active Adeola otein-St ty to 4-11 Seybold arch adverse 00:00: - reaction 00 Externa s l Wheat Propensi Active Adeola Husk ty to 4-11 Seybold Fiber adverse 00:00: - reaction 00 Externa s l NO KNOWN Allergy Active [facility] ALLERGIE S Social History Social Habit Start Date Stop Date Quantity Comments Source Exposure to Not sure Adeola robledo SARS-CoV-2 (event) History SDOH Adeola martinez - Alcohol Frequency Externa l History SDOH Adeola Cannon ld - Alcohol Std Drinks Fire Inspector al History SDOH Adeola Cannon ld - Alcohol Binge External Alcohol intake 2022-11-10 2022-11-10 Current drinker Lilia Sierra - 00:00:00 00:00:00 of alcohol External (finding) Alcohol Comment 2022-03-14 2022-03-14 occ. Adeola garcia - 00:00:00 00:00:00 External Tobacco use and 2021-04-24 2021-04-24 Smokeless tobacco Ned oneill Seybold - exposure 00:00:00 00:00:00 non-user External Sex [birth year] EUGENIA Bliss [facility] Status Start Date Stop Date Source Never smoked tobacco Adeola mcguire - External Medications Ordered Filled Start Stop Current Ordering Indication Dosage Frequency Signature Comments Components Source Medication Medication Date Date Medication? Clinician (SIG) Name Name Digoxin 125 Yes 125ug Take 125 K elsey MCG oral 2-08 mcg by Seybold Tablet 13:08: mouth - 23 daily Externa l Cyanocobala Yes Take by Rob sheikh min (B-12) 2-08 mouth Seybold 1000 MCG 13:08: - oral 23 Externa Lozenge l Multiple Yes Take by Adeola Vitamins-Mi 2-08 mouth Seybold nerals (HM 13:08: - MEMORY 23 Externa COMPLEX OR) l [place]-3 300 Yes Take by Rob alamoy MG oral 2-08 mouth Seybold Capsule 13:08: - 23 Externa l Cholecalcif Yes [id number] Take Rob sheikh som (D3 2-08 10,000 mg Seybol d MAXIMUM 13:08: by mouth - STRENGTH 23 Externa OR) l diphenhydrA Yes 25mg Apply 25 Ned oneill MINE-Zinc 2-08 mg Seybold Acetate 13:08: topically - (BENADRYL 23 Externa EX) l Methylsulfo Yes Take by Rob sheikh nylmethane 2-08 mouth Seybold (MSM) 1000 13:08: - MG oral 23 Externa Capsule l Multiple Yes Take by Adeola Vitamins-Mi 2-08 mouth Seybold nerals 13:08: - (ZINC OR) 23 Externa l Digoxin 125 Yes 125ug Take 125 K elsey MCG oral 1-04 mcg by Seybold Tablet 12:47: mouth - 20 daily Externa l Cyanocobala Yes Take by Rob sheikh min (B-12) 1-04 mouth Seybold 1000 MCG 12:47: - oral 20 Externa Lozenge l Multiple Yes Take by Adeola Vitamins-Mi 1-04 mouth Seybold nerals (HM 12:47: - MEMORY 20 Externa COMPLEX OR) l [place]-3 300 Yes Take by Rob alamoy MG oral 1-04 mouth Seybold Capsule 12:47: - 20 Externa l Cholecalcif Yes [id number] Take Rob sheikh som (D3 1-04 10,000 mg Seybol d MAXIMUM 12:47: by mouth - STRENGTH 20 Externa OR) l diphenhydrA Yes 25mg Apply 25 Ke lsey MINE-Zinc 1-04 mg Seybold Acetate 12:47: topically - (BENADRYL 20 Externa EX) l Methylsulfo Yes Take by Rob sheikh nylmethane 1-04 mouth Seybold (MSM) 1000 12:47: - MG oral 20 Externa Capsule l Multiple Yes Take by Adeola Vitamins-Mi 1-04 mouth Seybold nerals 12:47: - (ZINC OR) 20 Externa l Metformin Yes [id number] 500mg Take 1 K elsey HCl ER 500 1-04 tablet Seybold MG oral 00:00: (500 mg - TABLET SR 00 total) by Exter na 24 HR mouth l daily (with breakfast) Metformin Yes [id number] 500mg Take 1 K elsey HCl ER 500 1-04 tablet Seybold MG oral 00:00: (500 mg - TABLET SR 00 total) by Exter na 24 HR mouth l daily (with breakfast) Tramadol 2021-10 Yes [id number] TAKE Kelse y HCl 50 MG 2-09 ONE-HALF Seybol d oral Tablet 00:00: (10/04) - 00 TABLET(S) Externa BY MOUTH l DAILY NEEDED FOR PAIN. Tramadol 2021-10 Yes [id number] TAKE Kelse y HCl 50 MG 2-09 ONE-HALF Seybol d oral Tablet 00:00: (10/04) - 00 TABLET(S) Externa BY MOUTH l DAILY NEEDED FOR PAIN. Pantoprazol 2021-10- No TAKE ONE K elsey e Sodium 20 11-11 (1) Seybold MG oral 00:00: 00:00 TABLET(S) - Tablet 00 :00 BY MOUTH Externa Delayed ONCE A l Response DAY. Metformin 2021-10- No [id number] TAKE ONE Adeola HCl ER 500 11-11 (1) Seybold MG oral 00:00: 00:00 TABLET(S) - TABLET SR 00 :00 BY MOUTH Fire Inspector a 24 HR ONCE A DAY l WITH BREAKFAST. Carvedilol 2021-10 Yes 12.5mg Take 12.5 Adeola 12.5 MG 1-19 mg by Seybold oral Tablet 00:00: mouth 2 - 00 times Externa daily l Carvedilol 2021-10 Yes 12.5mg Take 12.5 Adeola 12.5 MG 1-19 mg by Seybold oral Tablet 00:00: mouth 2 - 00 times Externa daily l Spironolact 2021-10 Yes TAKE ONE Ke lsey one 25 MG 0-31 (1) Seybold oral Tablet 00:00: TABLET(S) - 00 BY MOUTH Externa ONCE A l DAY. Spironolact 2021-10 Yes TAKE ONE Ke lsey one 25 MG 0-31 (1) Seybold oral Tablet 00:00: TABLET(S) - 00 BY MOUTH Externa ONCE A l DAY. 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 Patient also to check blood sugars as needed Digoxin 125 Yes 125ug Take 125 K elsey MCG oral 9-20 mcg by Seybold Tablet 14:06: mouth - 51 daily Externa l Cyanocobala Yes Take by Rob sheikh min (B-12) 9-20 mouth Seybold 1000 MCG 14:06: - oral 51 Externa Lozenge l Multiple Yes Take by Adeola Vitamins-Mi 9-20 mouth Seybold nerals (HM 14:06: - MEMORY 51 Externa COMPLEX OR) l [place]-3 300 Yes Take by Rob sheikh MG oral 9-20 mouth Seybold Capsule 14:06: - 51 Externa l diphenhydrA Yes 25mg Apply 25 Ke lsey MINE-Zinc 9-20 mg Seybold Acetate 14:06: topically - (BENADRYL 51 Externa EX) l Methylsulfo Yes Take by Rob sheikh nylmethane 9-20 mouth Seybold (MSM) 1000 14:06: - MG oral 51 Externa Capsule l Multiple Yes Take by Adeola Vitamins-Mi 9-20 mouth Seybold nerals 14:06: - (ZINC OR) 51 Externa l Pantoprazol Yes TAKE ONE Ke lsey e Sodium 20 8-26 (1) Seybold MG oral 00:00: TABLET(S) - Tablet 00 BY MOUTH Externa Delayed ONCE A l Response DAY. Lidocaine Yes [id number] Take 3 ml Adeola HCl 8-11 by mouth Seybold (Lidocaine 00:00: every 4-6 - Viscous 00 hours as Externa HCl) 2 % needed for l mouth/throa throat t Solution pain. Lidocaine 2022- No [id number] Take 3 ml Adeola HCl 8-11 01-04 by mouth Seybold (Lidocaine 00:00: 00:00 every 4-6 - Viscous 00 :00 hours as Externa HCl) 2 % needed for l mouth/throa throat t Solution pain. Cholecalcif Yes [id number] Take Rob sheikh som (D3 7-18 10,000 mg Seybol d MAXIMUM 13:29: by mouth - STRENGTH 51 Externa OR) l Metformin Yes [id number] 500mg Take 1 K elsey HCl ER 500 7-18 tablet Seybold MG oral 00:00: (500 mg - TABLET SR 00 total) by Exter na 24 HR mouth l daily (with breakfast) Duloxetine Yes [id number] 60mg Take 1 Adeola HCl 60 MG 7-18 5 capsule Seybold oral Cap DR 00:00: (60 mg - Particles 00 total) by Exter na mouth 2 l times daily Continuous 0 Yes [id number] Use as K elsey Blood Gluc 7-18 directed Seybo ld Assistant Auditor 00:00: - (FreeStyle 00 Externa Luis Miguel 14 l Day [place]) does not apply Device Continuous Yes [id number] Use as K elsey Blood Gluc 7-18 directed Seybo ld Sensor 00:00: - (FreeStyle 00 Externa Luis Miguel 14 l Day Sensor) does not apply Misc Duloxetine Yes [id number] 60mg Take 1 Adeola HCl 60 MG 7-18 5 capsule Seybold oral Cap DR 00:00: (60 mg - Particles 00 total) by Exter na mouth 2 l times daily Duloxetine 2021-0 Yes [id number] 60mg Take 1 Adeoal HCl 60 MG 7-18 5 capsule Seybold [address] 00:00: (60 mg - Particles 00 total) by Exter na mouth 2 l times daily ACETAMINOPH 2021-0 Yes [id number] 1{tbl} Q4H Take 1 Adeola EN-CAFF-BUT 7-01 tablet by Sey bold ALBITAL 00:00: mouth - 50-325-40 00 every 4 Externa MG oral hours as l Tablet needed for pain ACETAMINOPH 2021-0 Yes [id number] 1{tbl} Q4H Take 1 Adeola EN-CAFF-BUT 7-01 tablet by Sey bold ALBITAL 00:00: mouth - 50-325-40 00 every 4 Externa MG oral hours as l Tablet needed for pain ACETAMINOPH 2021-0 Yes [id number] 1{tbl} Q4H Take 1 Adeola EN-CAFF-BUT 7-01 tablet by Sey bold ALBITAL 00:00: mouth - 50-325-40 00 every 4 Externa MG oral hours as l Tablet needed for pain Omeprazole 2021-0 Yes 40mg Take 1 Kelse y 40 MG oral 6-16 capsule Seybol d Delayed 00:00: (40 mg - Release 00 total) by Externa Capsule mouth l daily Omeprazole Yes 40mg Take 1 Kelse y 40 MG oral 6-16 capsule Seybol d Delayed 00:00: (40 mg - Release 00 total) by Externa Capsule mouth l daily Omeprazole 0 Yes 40mg Take 1 Kelse y 40 MG oral 6-16 capsule Seybol d Delayed 00:00: (40 mg - Release 00 total) by Externa Capsule mouth l daily [place]-3-aci Yes [id number] TAKE TWO Adeola d Ethyl 4-07 (2) Seybold Esters 1 g 00:00: CAPSULE(S) - oral 00 BY MOUTH Externa Capsule TWICE A l DAY. [place]-3-aci 2023- No [id number] TAKE TWO Adeola d Ethyl 4-07 01-04 (2) Seybold Esters 1 g 00:00: 00:00 CAPSULE(S) - oral 00 :00 BY MOUTH Externa Capsule TWICE A l DAY. Digoxin 125 Yes 125ug Take 125 K elsey MCG oral 3-28 mcg by Seybold Tablet 13:05: mouth 35 daily Cyanocobala Yes Take by Rob sheikh min (B-12) 3-28 mouth Seybold 1000 MCG 13:05: oral 35 Lozenge Multiple Yes Take by Adeola Vitamins-Mi 3-28 mouth Seybold nerals (HM 13:05: MEMORY 35 COMPLEX OR) [place]-3 300 Yes Take by Rob sheikh MG oral 3-28 mouth Seybold Capsule 13:05: 35 Cholecalcif Yes [id number] Take Rob sheikh som (D3 - 10,000 mg Seybol d MAXIMUM 13:05: by mouth STRENGTH 35 OR) diphenhydrA Yes 25mg Apply 25 Ke lsey MINE-Zinc 3-28 mg Seybold Acetate 13:05: topically (BENADRYL 35 EX) Methylsulfo Yes Take by Rob sheikh nylmethane 3-28 mouth Seybold (MSM) 1000 13:05: MG oral 35 Capsule Multiple Yes Take by Adeola Vitamins-Mi 3-28 mouth Seybold nerals 13:05: (ZINC OR) 35 diphenhydrA 0 Yes [id number] Apply 1 Adeola MINE HCl 2 3-28 applicatio Sey bold % apply 00:00: n externally 00 topically Cream 3 to 4 times daily diphenhydrA 2021-0 Yes [id number] 25mg Take 1 Adeola MINE 3-28 tablet (25 Seybold (BENADRYL) 00:00: mg total) 25 MG oral 00 by mouth Tablet once for 1 dose diphenhydrA 2021-0 Yes [id number] Apply 1 Adeola MINE HCl 2 3-28 applicatio Sey bold % apply 00:00: n - externally 00 topically Exte rna Cream 3 to 4 l times daily diphenhydrA 2021-0 Yes [id number] 25mg Take 1 Adeola MINE 3-28 tablet (25 Seybold (BENADRYL) 00:00: mg total) - 25 MG oral 00 by mouth Exter na Tablet once for 1 l dose diphenhydrA 0 Yes [id number] Apply 1 Adeola MINE HCl 2 3-28 applicatio Sey bold % apply 00:00: n - externally 00 topically Exte rna Cream 3 to 4 l times daily diphenhydrA 2021-0 Yes [id number] 25mg Take 1 Adeola MINE 3-28 tablet (25 Seybold (BENADRYL) 00:00: mg total) - 25 MG oral 00 by mouth Exter na Tablet once for 1 l dose diphenhydrA 0 Yes [id number] Apply 1 Adeola MINE HCl 2 3-28 applicatio Sey bold % apply 00:00: n - externally 00 topically Exte rna Cream 3 to 4 l times daily diphenhydrA 0 Yes [id number] 25mg Take 1 Adeola MINE 3-28 tablet (25 Seybold (BENADRYL) 00:00: mg total) - 25 MG oral 00 by mouth Exter na Tablet once for 1 l dose diphenhydrA 0 Yes 25mg Apply 25 Ke lsey MINE-Zinc 3-04 mg Seybold Acetate 15:42: topically (BENADRYL 33 EX) Digoxin 125 2021-0 Yes 125ug Take 125 K elsey MCG oral 3-04 mcg by Seybold Tablet 15:42: mouth 20 daily Cyanocobala 2022-0 Yes Take by Rob sheikh min (B-12) 3-04 mouth Seybold 1000 MCG 15:42: oral 20 Lozenge Multiple Yes Take by Adeola Vitamins-Mi 3-04 mouth Seybold nerals (HM 15:42: MEMORY 20 COMPLEX OR) [place]-3 300 Yes Take by Rob sheikh MG oral 3-04 mouth Seybold Capsule 15:42: 20 Cholecalcif Yes [id number] Take Rob sheikh som (D3 3-04 10,000 mg Seybol d MAXIMUM 15:42: by mouth STRENGTH 20 OR) Methylsulfo Yes Take by Rob sheikh nylmethane 3-04 mouth Seybold (MSM) 1000 15:42: MG oral 20 Capsule Multiple Yes Take by Adeola Vitamins-Mi 3-04 mouth Seybold nerals 15:42: (ZINC OR) 20 Na Yes Instructio Adeola Sulfate-K 3-04 n given to Seyb old Sulfate-Mg 00:00: patient in Sulf 00 clinic. (Suprep Use as Bowel Prep directed Kit) by 17.5-3.13-1 provider .6 GM/177ML during oral office Solution visit. Na Yes Instructio Adeola Sulfate-K 3-04 n given to Seyb old Sulfate-Mg 00:00: patient in Sulf 00 clinic. (Suprep Use as Bowel Prep directed Kit) by 17.5-3.13-1 provider .6 GM/177ML during oral office Solution visit. Na Yes Instructio Adeola Sulfate-K 3-04 n given to Seyb old Sulfate-Mg 00:00: patient in - Sulf 00 clinic. Externa (Suprep Use as l Bowel Prep directed Kit) by 17.5-3.13-1 provider .6 GM/177ML during oral office Solution visit. Na Yes Instructio Adeola Sulfate-K 3-04 n given to Seyb old Sulfate-Mg 00:00: patient in - Sulf 00 clinic. Externa (Suprep Use as l Bowel Prep directed Kit) by 17.5-3.13-1 provider .6 GM/177ML during oral office Solution visit. Na Yes Instructio Adeola Sulfate-K 3-04 n given to Seyb old Sulfate-Mg 00:00: patient in - Sulf 00 clinic. Externa (Suprep Use as l Bowel Prep directed Kit) by 17.5-3.13-1 provider .6 GM/177ML during oral office Solution visit. Aspirin 81 2021- No 81mg Take 81 mg Adeola MG oral 11-24 by mouth Seybold Chewable 14:37: 00:00 daily Tablet 43 :00 Omeprazole 0 2021- No [id number] 20mg Take 20 mg Adeola 20 MG oral 11-24 by mouth Seyb old Delayed 14:32: 00:00 daily Release 11 :00 Capsule Mirabegron 2021- No Take by Rob sheikh ER -11-24 mouth Seybold (Myrbetriq) 14:30: 00:00 50 MG oral 49 :00 TABLET SR 24 HR Digoxin 125 0 Yes 125ug Take 125 K elsey MCG oral 2-22 mcg by Seybold Tablet 14:15: mouth 14 daily Cyanocobala Yes Take by Rob sheikh min (B-12) - mouth Seybold 1000 MCG 14:15: oral 14 Lozenge Multiple Yes Take by Adeola Vitamins-Mi - mouth Seybold nerals (HM 14:15: MEMORY 14 COMPLEX OR) [place]-3 300 Yes Take by oRb alamoy MG oral -22 mouth Seybold Capsule 14:15: 14 Cholecalcif Yes [id number] Take Rob sheikh som (D3 11-24 10,000 mg Seybol d MAXIMUM 14:15: by mouth STRENGTH 14 OR) diphenhydrA Yes 25mg Apply 25 Ke lsey MINE-Zinc 2-22 mg Seybold Acetate 14:15: topically (BENADRYL 14 EX) Methylsulfo Yes Take by Rob sheikh nylmethane - mouth Seybold (MSM) 1000 14:15: MG oral 14 Capsule Multiple Yes Take by Adeola Vitamins-Mi 2-22 mouth Seybold nerals 14:15: (ZINC OR) 14 Tramadol 0 Yes [id number] 25mg Q24H Take 0.5 K elsey HCl 50 MG 2-22 tablets Seybold oral Tablet 00:00: (25 mg 00 total) by mouth daily as needed for pain [place]-3-aci Yes [id number] 2g Take 2 Adeola d Ethyl 2-22 capsules Seybold Esters 1 g 00:00: (2 g oral 00 total) by Capsule mouth 2 times daily Metformin 2021-0 Yes [id number] 500mg Take 1 K elsey HCl ER 500 2-22 tablet Seybold MG oral 00:00: (500 mg TABLET SR 00 total) by 24 HR mouth daily (with breakfast) Pantoprazol Yes [id number] 20mg Take 1 Adeola e Sodium 20 2-22 tablet (20 Se ybold MG oral 00:00: mg total) Tablet 00 by mouth Delayed daily Response Tramadol Yes [id number] 25mg Q24H Take 0.5 K elsey HCl 50 MG 2-22 tablets Seybold oral Tablet 00:00: (25 mg 00 total) by mouth daily as needed for pain [place]-3-aci Yes [id number] 2g Take 2 Adeola d Ethyl 2-22 capsules Seybold Esters 1 g 00:00: (2 g oral 00 total) by Capsule mouth 2 times daily Metformin Yes [id number] 500mg Take 1 K elsey HCl ER 500 2-22 tablet Seybold MG oral 00:00: (500 mg TABLET SR 00 total) by 24 HR mouth daily (with breakfast) Pantoprazol 2021-0 Yes [id number] 20mg Take 1 Adeola e Sodium 20 2-22 tablet (20 Se ybold MG oral 00:00: mg total) Tablet 00 by mouth Delayed daily Response Tramadol 2021-0 Yes [id number] 25mg QD Take 0.5 K elsey HCl 50 MG 2-22 tablets Seybold oral Tablet 00:00: (25 mg 00 total) by mouth daily as needed for pain [place]-3-aci Yes [id number] 2g Take 2 Adeola d Ethyl 2-22 capsules Seybold Esters 1 g 00:00: (2 g oral 00 total) by Capsule mouth 2 times daily Metformin 2021-0 Yes [id number] 500mg Take 1 K elsey HCl ER 500 2-22 tablet Seybold MG oral 00:00: (500 mg TABLET SR 00 total) by 24 HR mouth daily (with breakfast) Tramadol Yes [id number] 25mg QD Take 0.5 K elsey HCl 50 MG 2-22 tablets Seybold oral Tablet 00:00: (25 mg - 00 total) by Externa mouth l daily as needed for pain Pantoprazol 2021- No [id number] 20mg Take 1 Adeola e Sodium 20 -22 12- tablet (20 S eybold MG oral 00:00: 00:00 mg total) Tablet 00 :00 by mouth Delayed daily Response Omeprazole 2021- No [id number] 20mg Take 1 Adeola 20 MG oral -24 11- capsule Seybo ld Delayed 00:00: 00:00 (20 mg Release 00 :00 total) by Capsule mouth daily Amoxicillin 2021- No [id number] 1{tbl} Take 1 Adeola -Pot -29 11- tablet by Seybold Clavulanate 00:00: 00:00 mouth 2 875-125 MG 00 :00 times oral Tablet daily Aspirin 81 Yes 81mg Take 81 mg K elsey MG oral 1-20 by mouth Seybold Chewable 14:55: daily Tablet 32 Digoxin 125 Yes 125ug Take 125 K elsey MCG oral 1-20 mcg by Seybold Tablet 14:55: mouth 32 daily Cyanocobala Yes Take by Rob sheikh min (B-12) 1-20 mouth Seybold 1000 MCG 14:55: oral 32 Lozenge Mirabegron Yes Take by Yulissa zelaya ER 1-20 mouth Seybold (Myrbetriq) 14:55: 50 MG oral 32 TABLET SR 24 HR Multiple Yes Take by Adeola Vitamins-Mi 1-20 mouth Seybold nerals (HM 14:55: MEMORY 32 COMPLEX OR) [place]-3 300 Yes Take by Rob alamoy MG oral 1-20 mouth Seybold Capsule 14:55: 32 Cholecalcif Yes [id number] Take Rob sheikh som (D3 1-20 10,000 mg Seybol d MAXIMUM 14:55: by mouth STRENGTH 32 OR) diphenhydrA 2022-0 Yes 25mg Apply 25 Ke lsey MINE-Zinc 1-20 mg Seybold Acetate 14:55: topically (BENADRYL 32 EX) Methylsulfo Yes Take by Rob sheikh nylmethane 1-20 mouth Seybold (MSM) 1000 14:55: MG oral 32 Capsule Multiple Yes Take by Adeola Vitamins-Mi 1-20 mouth Seybold nerals 14:55: (ZINC OR) 32 Omeprazole Yes [id number] 20mg Take 20 mg Adeola 20 MG oral 1-20 by mouth Seybo ld Delayed 14:55: daily Release 32 Capsule Vancomycin Yes [id number] TAKE 1 Ke lsey HCl 125 MG 1-07 CAPSULE BY Sey bold oral 00:00: MOUTH Capsule 00 EVERY 6 HOURS FOR 10 DAYS Vancomycin 2021- No [id number] TAKE 1 K elsey HCl 125 MG 1-07 -22 CAPSULE BY Se ybold oral 00:00: 00:00 MOUTH Capsule 00 :00 EVERY 6 HOURS FOR 10 DAYS Sacubitril- 2021-2021- No 1{tbl} Take 1 K elsey Valsartan 1-06 -06 tablet by yb old 49-51 MG 09:48: 00:00 mouth 2 oral Tablet 08 :00 times daily Omeprazole Yes [id number] 20mg Take 20 mg Adeola 20 MG oral 1-06 by mouth Seybo ld Delayed 09:11: daily Release 55 Capsule Aspirin 81 0 Yes 81mg Take 81 mg K elsey MG oral 1-06 by mouth Seybold Chewable 09:11: daily Tablet 54 Digoxin 125 0 Yes 125ug Take 125 K elsey MCG oral 1-06 mcg by Seybold Tablet 09:11: mouth 54 daily Cyanocobala Yes Take by Rob sheikh min (B-12) 1-06 mouth Seybold 1000 MCG 09:11: oral 54 Lozenge Mirabegron Yes Take by Yulissa zelaya ER 1-06 mouth Seybold (Myrbetriq) 09:11: 50 MG oral 54 TABLET SR 24 HR Multiple Yes Take by Adeola Vitamins-Mi 1-06 mouth Seybold nerals (HM 09:11: MEMORY 54 COMPLEX OR) [place]-3 300 Yes Take by Rob sheikh MG oral 1-06 mouth Seybold Capsule 09:11: 54 Cholecalcif 0 Yes [id number] Take Rob trent som (D3 06 10,000 mg Seybol d MAXIMUM 09:11: by mouth STRENGTH 54 OR) diphenhydrA Yes 25mg Apply 25 Ke lsey MINE-Zinc 1-06 mg Seybold Acetate 09:11: topically (BENADRYL 54 EX) Methylsulfo Yes Take by Rob sheikh nylmethane 06 mouth Seybold (MSM) 1000 09:11: MG oral 54 Capsule Multiple Yes Take by Adeola Vitamins-Mi 1-06 mouth Seybold nerals 09:11: (ZINC OR) 54 Actemra 2020-10 Yes Adeolakori KESSLERPen 162 2-27 Seybold MG/0.9ML 00:00: subcutaneou 00 s Solution Auto-inject or Actemra 2020-10 Yes Adeola KESSLERPen 162 2-27 Seybold MG/0.9ML 00:00: subcutaneou 00 s Solution Auto-inject or Actemra 2020-10 Yes Adeola ACTPen 162 2-27 Seybold MG/0.9ML 00:00: subcutaneou 00 s Solution Auto-inject or Actemra 2020-10 Yes Adeola ACTPen 162 2-27 Seybold MG/0.9ML 00:00: subcutaneou 00 s Solution Auto-inject or Actemra 2020-10 Yes Adeola ACTPen 162 2-27 Seybold MG/0.9ML 00:00: subcutaneou 00 s Solution Auto-inject or Actemra 2020-10 Yes Adeola ACTPen 162 2-27 Seybold MG/0.9ML 00:00: - subcutaneou 00 Externa s Solution l Auto-inject or Actemra 2020-10 Yes Adeola ACTPen 162 2-27 Seybold MG/0.9ML 00:00: - subcutaneou 00 Externa s Solution l Auto-inject or Actemra 2020-10 Yes Adeola ACTPen 162 2-27 Seybold MG/0.9ML 00:00: - subcutaneou 00 Externa s Solution l Auto-inject or Omeprazole 2020-10 Yes 20mg Take 20 mg K elsey 20 MG oral 2-06 by mouth Seybo ld Delayed 11:08: daily Release 15 Capsule Duloxetine 2020-10 Yes 60mg Take 1 Kelse y HCl 60 MG 2-06 capsule Seybold oral Cap DR 00:00: (60 mg Particles 00 total) by mouth 2 times daily Amiodarone 2020-10 Yes 200mg Take 1 Yulissa ey HCl 200 MG 2-06 tablet Seybold oral Tablet 00:00: (200 mg 00 total) by mouth 2 times daily Sacubitril- 2020-10 Yes 1{tbl} Take 1 Ke lsey Valsartan 2-06 tablet by Seybo ld (Entresto) 00:00: mouth 97-103 MG 00 daily oral Tablet Tramadol 2020-10 Yes [id number] 25mg Q24H Take 0.5 K elsey HCl 50 MG 2-06 tablets Seybold oral Tablet 00:00: (25 mg 00 total) by mouth daily as needed for pain Duloxetine 2020-10 Yes 60mg Take 1 Kelse y HCl 60 MG 2-06 capsule Seybold oral Cap DR 00:00: (60 mg Particles 00 total) by mouth 2 times daily Amiodarone 2020-10 Yes 200mg Take 1 Yulissa ey HCl 200 MG 2-06 tablet Seybold oral Tablet 00:00: (200 mg 00 total) by mouth 2 times daily Sacubitril- 2020-10 Yes 1{tbl} Take 1 Ke lsey Valsartan 2-06 tablet by Seybo ld (Entresto) 00:00: mouth 97-103 MG 00 daily oral Tablet Tramadol 2020-10 Yes [id number] 25mg Q24H Take 0.5 K elsey HCl 50 MG 2-06 tablets Seybold oral Tablet 00:00: (25 mg 00 total) by mouth daily as needed for pain Duloxetine 2020-10 Yes 60mg Take 1 Kelse y HCl 60 MG 2-06 capsule Seybold oral Cap DR 00:00: (60 mg Particles 00 total) by mouth 2 times daily Amiodarone 2020-10 Yes 200mg Take 1 Yulissa ey HCl 200 MG 2-06 tablet Seybold oral Tablet 00:00: (200 mg 00 total) by mouth 2 times daily Sacubitril- 2020-10 Yes 1{tbl} Take 1 Ke lsey Valsartan 2-06 tablet by Seybo ld (Entresto) 00:00: mouth 97-103 MG 00 daily oral Tablet Duloxetine 2020-10 Yes 60mg Take 1 Kelse y HCl 60 MG 2-06 capsule Seybold oral Cap DR 00:00: (60 mg Particles 00 total) by mouth 2 times daily Amiodarone 2020-10 Yes 200mg Take 1 Yulissa ey HCl 200 MG 2-06 tablet Seybold oral Tablet 00:00: (200 mg 00 total) by mouth 2 times daily Sacubitril- 2020-10 Yes 1{tbl} Take 1 Ke lsey Valsartan 2-06 tablet by Seybo ld (Entresto) 00:00: mouth 97-103 MG 00 daily oral Tablet Duloxetine 2020-10 Yes 60mg Take 1 Kelse y HCl 60 MG 2-06 capsule Seybold oral Cap DR 00:00: (60 mg Particles 00 total) by mouth 2 times daily Amiodarone 2020-10 Yes 200mg Take 1 Yulissa ey HCl 200 MG 2-06 tablet Seybold oral Tablet 00:00: (200 mg 00 total) by mouth 2 times daily Sacubitril- 2020-10 Yes 1{tbl} Take 1 Ke lsey Valsartan 2-06 tablet by Seybo ld (Entresto) 00:00: mouth 97-103 MG 00 daily oral Tablet Amiodarone 2020-10 Yes 200mg Take 1 Yulissa ey HCl 200 MG 2-06 tablet Seybold oral Tablet 00:00: (200 mg - 00 total) by Externa mouth 2 l times daily Sacubitril- 2020-10 Yes 1{tbl} Take 1 Ke lsey Valsartan 2-06 tablet by Seybo ld (Entresto) 00:00: mouth - 97-103 MG 00 daily Externa oral Tablet l Amiodarone 2020-10 Yes 200mg Take 1 Yulissa ey HCl 200 MG 2-06 tablet Seybold oral Tablet 00:00: (200 mg - 00 total) by Externa mouth 2 l times daily Sacubitril- 2020-10 Yes 1{tbl} Take 1 Ke lsey Valsartan 2-06 tablet by Seybo ld (Entresto) 00:00: mouth - 97-103 MG 00 daily Externa oral Tablet l Amiodarone 2020-10 Yes 200mg Take 1 Yulissa ey HCl 200 MG 2-06 tablet Seybold oral Tablet 00:00: (200 mg - 00 total) by Externa mouth 2 l times daily Sacubitril- 2020-10 Yes 1{tbl} Take 1 Ke lsey Valsartan 2-06 tablet by Seybo ld (Entresto) 00:00: mouth - 97-103 MG 00 daily Externa oral Tablet l Tramadol 2020-10- No [id number] 25mg Q24H Take 0.5 Adeola HCl 50 MG 2-06 -22 tablets Seybol d oral Tablet 00:00: 00:00 (25 mg 00 :00 total) by mouth daily as needed for pain Duloxetine 2020-10- No 60mg Take 1 Yulissa ey HCl 60 MG 0-14 12-06 capsule Seybol d oral Cap DR 00:00: 00:00 (60 mg Particles 00 :00 total) by mouth daily Mupirocin Yes [id number] Apply to Adeola (BACTROBAN) 9 scratch 3 Sey bold 2 % apply 00:00: times a externally 00 day. Ointment Mupirocin Yes [id number] Apply to Adeola (BACTROBAN) 9-27 scratch 3 Sey bold 2 % apply 00:00: times a externally 00 day. Ointment Mupirocin 0 Yes [id number] Apply to Adeola (BACTROBAN) 9 scratch 3 Sey bold 2 % apply 00:00: times a externally 00 day. Ointment Mupirocin 0 Yes [id number] Apply to Adeola (BACTROBAN) 9 scratch 3 Sey bold 2 % apply 00:00: times a externally 00 day. Ointment Mupirocin 2021- No [id number] Apply to Adeola (BACTROBAN) 9- scratch 3 Se ybold 2 % apply 00:00: 00:00 times a externally 00 :00 day. Ointment Latanoprost 2021-0 Yes 1[drp] Place 1 K elsey 0.005 % 8-25 drop into Seybold ophthalmic 00:00: both eyes Solution 00 every evening Latanoprost 0 Yes 1[drp] Place 1 K elsey 0.005 % 8-25 drop into Seybold ophthalmic 00:00: both eyes Solution 00 every evening Latanoprost 0 Yes 1[drp] Place 1 K elsey 0.005 % 8-25 drop into Seybold ophthalmic 00:00: both eyes Solution 00 every evening Latanoprost 0 Yes 1[drp] Place 1 K elsey 0.005 % 8-25 drop into Seybold ophthalmic 00:00: both eyes Solution 00 every evening Latanoprost Yes 1[drp] Place 1 K elsey 0.005 % 8-25 drop into Seybold ophthalmic 00:00: both eyes Solution 00 every evening Latanoprost Yes 1[drp] Place 1 K elsey 0.005 % 8-25 drop into Seybold ophthalmic 00:00: both eyes Solution 00 every evening Latanoprost Yes 1[drp] Place 1 K elsey 0.005 % 8-25 drop into Seybold ophthalmic 00:00: both eyes - Solution 00 every Externa evening l Latanoprost 0 Yes 1[drp] Place 1 K elsey 0.005 % 8-25 drop into Seybold ophthalmic 00:00: both eyes - Solution 00 every Externa evening l Latanoprost 0 Yes 1[drp] Place 1 K elsey 0.005 % 8-25 drop into Seybold ophthalmic 00:00: both eyes - Solution 00 every Externa evening l Latanoprost 0 Yes 1[drp] Place 1 K elsey 0.005 % 8-25 drop into Seybold ophthalmic 00:00: both eyes Solution 00 every evening Aspirin 81 2020-0 Yes 81mg Take 81 mg K elsey MG oral 8-17 by mouth Seybold Chewable 13:53: daily Tablet 02 Sacubitril- 0 Yes 1{tbl} Take 1 Ke lsey Valsartan 8-17 tablet by Seybo ld 49-51 MG 13:53: mouth 2 oral Tablet 02 times daily Digoxin 125 Yes 125ug Take 125 K elsey MCG oral 8-17 mcg by Seybold Tablet 13:53: mouth 02 daily Cyanocobala Yes Take by Rob vazquez (B-12) 8- mouth Seybold 1000 MCG 13:53: oral 02 Lozenge Mirabegron Yes Take by Yulissa ey ER 8-17 mouth Seybold (Myrbetriq) 13:53: 50 MG oral 02 TABLET SR 24 HR Multiple Yes Take by Adeola Vitamins-Mi 8-17 mouth Seybold nerals (HM 13:53: MEMORY 02 COMPLEX OR) [place]-3 300 Yes Take by Rob sheikh MG oral 8- mouth Seybold Capsule 13:53: 02 Cholecalcif Yes [id number] Take Rob sheikh som (D3 8- 10,000 mg Seybol d MAXIMUM 13:53: by mouth STRENGTH 02 OR) diphenhydrA Yes 25mg Apply 25 Ke aviey MINE-Zinc 8-17 mg Seybold Acetate 13:53: topically (BENADRYL 02 EX) Methylsulfo Yes Take by Rob sheikh nylmethane 05-19 mouth Seybold (MSM) 1000 13:53: MG oral 02 Capsule Multiple Yes Take by Adeola Vitamins-Mi 8-17 mouth Seybold nerals 13:53: (ZINC OR) 02 Aspirin 81 Yes 81mg Take 81 mg K elsey MG oral 8-17 by mouth Seybold Chewable 13:53: daily Tablet 02 Sacubitril- Yes 1{tbl} Take 1 Ke lsey Valsartan 8-17 tablet by Seybo ld 49-51 MG 13:53: mouth 2 oral Tablet 02 times daily Digoxin 125 Yes 125ug Take 125 K elsey MCG oral 8-17 mcg by Seybold Tablet 13:53: mouth 02 daily Cyanocobala Yes Take by Rob vazquez (B-12) 8-17 mouth Seybold 1000 MCG 13:53: oral 02 Lozenge Mirabegron Yes Take by Yulissa ey ER 8-17 mouth Seybold (Myrbetriq) 13:53: 50 MG oral 02 TABLET SR 24 HR Multiple Yes Take by Adeola Vitamins-Mi 8-17 mouth Seybold nerals (HM 13:53: MEMORY 02 COMPLEX OR) [place]-3 300 Yes Take by Rob alamoy MG oral 8-17 mouth Seybold Capsule 13:53: 02 Cholecalcif Yes [id number] Take Rob sheikh som (D3 8-17 10,000 mg Seybol d MAXIMUM 13:53: by mouth STRENGTH 02 OR) diphenhydrA Yes 25mg Apply 25 Ke lsey MINE-Zinc 8-17 mg Seybold Acetate 13:53: topically (BENADRYL 02 EX) Methylsulfo Yes Take by Rob sheikh nylmethane 8-17 mouth Seybold (MSM) 1000 13:53: MG oral 02 Capsule Multiple Yes Take by Adeola Vitamins-Mi 8-17 mouth Seybold nerals 13:53: (ZINC OR) 02 Carvedilol Yes 6.25mg Take 1 Rob sey 6.25 MG 8-17 tablet Seybold oral Tablet 00:00: (6.25 mg 00 total) by mouth 2 times daily (with meals) Spironolact 2020-0 Yes 25mg Take 1 Yulissa ey one 25 MG 8-17 tablet (25 Seyb old oral Tablet 00:00: mg total) 00 by mouth daily Carvedilol 0 Yes 6.25mg Take 1 Rob sey 6.25 MG 8-17 tablet Seybold oral Tablet 00:00: (6.25 mg 00 total) by mouth 2 times daily (with meals) Spironolact 2020-0 Yes 25mg Take 1 Yulissa ey one 25 MG 8-17 tablet (25 Seyb old oral Tablet 00:00: mg total) 00 by mouth daily Carvedilol 0 Yes 6.25mg Take 1 Rob sey 6.25 MG 8-17 tablet Seybold oral Tablet 00:00: (6.25 mg 00 total) by mouth 2 times daily (with meals) Spironolact 2020-0 Yes 25mg Take 1 Yulissa ey one 25 MG 8-17 tablet (25 Seyb old oral Tablet 00:00: mg total) 00 by mouth daily Carvedilol 2021-0 Yes 6.25mg Take 1 Rob sey 6.25 MG 8-17 tablet Seybold oral Tablet 00:00: (6.25 mg 00 total) by mouth 2 times daily (with meals) Spironolact 2021-0 Yes 25mg Take 1 Yulissa ey one 25 MG 8-17 tablet (25 Seyb old oral Tablet 00:00: mg total) 00 by mouth daily Carvedilol 2021-0 Yes 6.25mg Take 1 Rob sey 6.25 MG 8-17 tablet Seybold oral Tablet 00:00: (6.25 mg 00 total) by mouth 2 times daily (with meals) Spironolact 2021-0 Yes 25mg Take 1 Yulissa ey one 25 MG 8-17 tablet (25 Seyb old oral Tablet 00:00: mg total) 00 by mouth daily Carvedilol 2021-0 Yes 6.25mg Take 1 Rob sey 6.25 MG 8-17 tablet Seybold oral Tablet 00:00: (6.25 mg 00 total) by mouth 2 times daily (with meals) Spironolact 2021-0 Yes 25mg Take 1 Yulissa ey one 25 MG 8-17 tablet (25 Seyb old oral Tablet 00:00: mg total) 00 by mouth daily Carvedilol 2020-0 Yes 6.25mg Take 1 Rob sey 6.25 MG 8-17 tablet Seybold oral Tablet 00:00: (6.25 mg - 00 total) by Externa mouth 2 l times daily (with meals) Spironolact 2021-0 Yes 25mg Take 1 Yulissa ey one 25 MG 8-17 tablet (25 Seyb old oral Tablet 00:00: mg total) - 00 by mouth Externa daily l Sacubitril- 2020-0 Yes 1{tbl} Take 1 Ke lsey Valsartan 8-17 tablet by Seybo ld (Entresto) 00:00: mouth 97-103 MG 00 daily oral Tablet Amiodarone 2020-0 Yes 200mg Take 1 Yulissa ey HCl 200 MG 8-17 tablet Seybold oral Tablet 00:00: (200 mg 00 total) by mouth 2 times daily Carvedilol 202-0 Yes 6.25mg Take 1 Rob sey 6.25 MG 8-17 tablet Seybold oral Tablet 00:00: (6.25 mg 00 total) by mouth 2 times daily (with meals) Spironolact 0 Yes 25mg Take 1 Yulissa ey one 25 MG 8-17 tablet (25 Seyb old oral Tablet 00:00: mg total) 00 by mouth daily Carvedilol 0 2022- No 6.25mg Take 1 Ke lsey 6.25 MG 8-17 - tablet Seybold oral Tablet 00:00: 00:00 (6.25 mg - 00 :00 total) by Externa mouth 2 l times daily (with meals) Sacubitril- 2020- No 1{tbl} Take 1 K elsey Valsartan 05-19 tablet by Seyb old (Entresto) 00:00: 00:00 mouth 97-103 MG 00 :00 daily oral Tablet Amiodarone 2020- No 200mg Take 1 Rob sey HCl 200 MG -17 09-07 tablet Seybol d oral Tablet 00:00: 00:00 (200 mg 00 :00 total) by mouth 2 times daily Rivaroxaban Yes 15mg Take 1 Yulissa ey (Xarelto) 7-29 tablet (15 Seyb old 15 MG oral 00:00: mg total) Tablet 00 by mouth daily Rivaroxaban Yes 15mg Take 1 Yulissa ey (Xarelto) 7-29 tablet (15 Seyb old 15 MG oral 00:00: mg total) Tablet 00 by mouth daily Rivaroxaban Yes 15mg Take 1 Yulissa ey (Xarelto) 7-29 tablet (15 Seyb old 15 MG oral 00:00: mg total) Tablet 00 by mouth daily Rivaroxaban Yes 15mg Take 1 Yulissa ey (Xarelto) 7-29 tablet (15 Seyb old 15 MG oral 00:00: mg total) Tablet 00 by mouth daily Rivaroxaban Yes 15mg Take 1 Yulissa ey (Xarelto) 7-29 tablet (15 Seyb old 15 MG oral 00:00: mg total) Tablet 00 by mouth daily Rivaroxaban Yes 15mg Take 1 Yulissa ey (Xarelto) 7-29 tablet (15 Seyb old 15 MG oral 00:00: mg total) Tablet 00 by mouth daily Rivaroxaban Yes 15mg Take 1 Yulissa ey (Xarelto) 7-29 tablet (15 Seyb old 15 MG oral 00:00: mg total) - Tablet 00 by mouth Externa daily l Rivaroxaban Yes 15mg Take 1 Yulissa ey (Xarelto) 7-29 tablet (15 Seyb old 15 MG oral 00:00: mg total) - Tablet 00 by mouth Externa daily l Rivaroxaban Yes 15mg Take 1 Yulissa ey (Xarelto) 7-29 tablet (15 Seyb old 15 MG oral 00:00: mg total) - Tablet 00 by mouth Externa daily l Duloxetine Yes 60mg Take 1 Kelse y HCl 60 MG 7-29 capsule Seybold oral Cap DR 00:00: (60 mg Particles 00 total) by mouth daily Rivaroxaban Yes 15mg Take 1 Yulissa ey (Xarelto) 7-29 tablet (15 Seyb old 15 MG oral 00:00: mg total) Tablet 00 by mouth daily Omeprazole Yes 20mg Take 20 mg K elsey 20 MG oral 6-28 by mouth Seybo ld Delayed 00:00: daily Release 00 Capsule Rosuvastati Yes TAKE 1 Yulissa ey n Calcium 6-28 TABLET BY Seybo ld 20 MG oral 00:00: MOUTH ONCE Tablet 00 DAILY WITH MEALS Omeprazole Yes 20mg Take 20 mg K elsey 20 MG oral 6-28 by mouth Seybo ld Delayed 00:00: daily Release 00 Capsule Rosuvastati Yes TAKE 1 Yulissa ey n Calcium 6-28 TABLET BY Seybo ld 20 MG oral 00:00: MOUTH ONCE Tablet 00 DAILY WITH MEALS Rosuvastati Yes TAKE 1 Yulissa ey n Calcium 6-28 TABLET BY Seybo ld 20 MG oral 00:00: MOUTH ONCE Tablet 00 DAILY WITH MEALS Rosuvastati Yes TAKE 1 Yulissa ey n Calcium 6-28 TABLET BY Seybo ld 20 MG oral 00:00: MOUTH ONCE Tablet 00 DAILY WITH MEALS Rosuvastati Yes TAKE 1 Yulissa ey n Calcium 6-28 TABLET BY Seybo ld 20 MG oral 00:00: MOUTH ONCE Tablet 00 DAILY WITH MEALS Omeprazole 2020-0 Yes 20mg Take 20 mg K elsey 20 MG oral 6-28 by mouth Seybo ld Delayed 00:00: daily Release 00 Capsule Rosuvastati 2020-0 Yes TAKE 1 Yulissa ey n Calcium 6-28 TABLET BY Seybo ld 20 MG oral 00:00: MOUTH ONCE - Tablet 00 DAILY WITH Externa MEALS l Rosuvastati 2020-0 Yes TAKE 1 Yulissa ey n Calcium 6-28 TABLET BY Seybo ld 20 MG oral 00:00: MOUTH ONCE Tablet 00 DAILY WITH MEALS Rosuvastati 2020-0 Yes TAKE 1 Yulissa ey n Calcium 6-28 TABLET BY Seybo ld 20 MG oral 00:00: MOUTH ONCE - Tablet 00 DAILY WITH Externa MEALS l Rosuvastati 2020-0 Yes TAKE 1 Yuilssa ey n Calcium 6-28 TABLET BY Seybo ld 20 MG oral 00:00: MOUTH ONCE - Tablet 00 DAILY WITH Externa MEALS l Omeprazole 2020-0 Yes 20mg Take 20 mg K elsey 20 MG oral 6-28 by mouth Seybo ld Delayed 00:00: daily Release 00 Capsule Rosuvastati 2020-0 Yes TAKE 1 Yulissa ey n Calcium 6-28 TABLET BY Seybo ld 20 MG oral 00:00: MOUTH ONCE Tablet 00 DAILY WITH MEALS Omeprazole 2020-0 2- No 20mg Take 20 mg Adeola 20 MG oral 6-28 11-24 by mouth Seyb old Delayed 00:00: 00:00 daily Release 00 :00 Capsule Vital Signs Vital Name Observation Time Observation Value Comments Source Systolic blood 2022-11-10 19:07:00 134 mm[Hg] Adeola Sierra - pressure External Diastolic blood 2022-11-10 19:07:00 69 mm[Hg] Lilia Sierra - pressure External Heart rate 2022-11-10 19:07:00 59 /min Adeola lopez - External Body temperature 2022-11-10 19:07:00 36.5 Erika Yulissa Sierra - External Respiratory rate 2022-11-10 19:07:00 18 /min Yulissa Sierra - External Body height 2022-11-10 19:07:00 152.4 cm Adeola S eybold - External Body weight 2022-11-10 19:07:00 88.451 kg Adeola S eybold - External BMI 2022-11-10 19:07:00 38.08 kg/m2 Adeola Cárdenas eybold - External HEIGHT 2022-11-08 15:02:00 152.4 cm WEIGHT 2022-11-08 15:02:00 83.915 kg HEIGHT 2022-11-08 15:02:00 152.4 cm WEIGHT 2022-11-08 15:02:00 83.915 kg Systolic blood 2022-10-06 18:42:00 144 mm[Hg] Adeola Seybold - pressure External Diastolic blood 2022-10-06 18:42:00 70 mm[Hg] Robse y Seybold - pressure External Heart rate 2022-10-06 18:42:00 84 /min Adeola Cárdenas eybold - External Body temperature 2022-10-06 18:42:00 36.17 Erika Yulissa ey Seybold - External Respiratory rate 2022-10-06 18:42:00 16 /min Yulissa ey Seybold - External Body height 2022-10-06 18:42:00 152.4 cm Adeola Cárdenas eybold - External Body weight 2022-10-06 18:42:00 88.451 kg Adeola Cárdenas eybold - External BMI 2022-10-06 18:42:00 38.08 kg/m2 Adeola Cárdenas eybold - External Systolic blood 2022-06-22 18:55:00 146 mm[Hg] Adeola Seybold - pressure External Diastolic blood 2022-06-22 18:55:00 79 mm[Hg] Lilia y Seybold - pressure External Heart rate 2022-06-22 18:55:00 66 /min Adeola Cárdenas eybold - External Body temperature 2022-06-22 18:55:00 36.5 Erika Yulissa ey Seybold - External Respiratory rate 2022-06-22 18:55:00 18 /min Yulissa ey Seybold - External Body height 2022-06-22 18:55:00 152.4 cm Adeola Cárdenas eybold - External Body weight 2022-06-22 18:55:00 84.823 kg Adeola Cárdenas eybold - External BMI 2022-06-22 18:55:00 36.52 kg/m2 Adeola S eybold - External Systolic blood 2021-12-28 18:02:00 136 mm[Hg] Adeola Seybold pressure Diastolic blood 2021-12-28 18:02:00 78 mm[Hg] Kelse y Seybold pressure Heart rate 2021-12-28 18:02:00 67 /min Adeola S eybold Body temperature 2021-12-28 18:02:00 36.56 Erika Yulissa ey Seybold Respiratory rate 2021-12-28 18:02:00 15 /min Yulissa ey Seybold Body height 2021-12-28 18:02:00 152.4 cm Adeola S eybold Body weight 2021-12-28 18:02:00 85.276 kg Adeola S eybold BMI 2021-12-28 18:02:00 36.72 kg/m2 Adeola S eybold Systolic blood 2021-12-04 21:41:00 128 mm[Hg] Adeola Seybold pressure Diastolic blood 2021-12-04 21:41:00 68 mm[Hg] Kelse y Seybold pressure Heart rate 2021-12-04 21:41:00 60 /min Adeola S eybold Body temperature 2021-12-04 21:41:00 36.56 Erika Yulissa ey Seybold Respiratory rate 2021-12-04 21:41:00 18 /min Yulissa ey Seybold Body height 2021-12-04 21:41:00 152.4 cm Adeola S eybold Body weight 2021-12-04 21:41:00 85.095 kg Adeola S eybold BMI 2021-12-04 21:41:00 36.64 kg/m2 Adeola S eybold Oxygen saturation in 2021-12-04 21:41:00 100 /min Adeola Sierra Arterial blood by Pulse oximetry Systolic blood 2021-11-24 20:12:00 145 mm[Hg] Adeola Seybold pressure Diastolic blood 2021-11-24 20:12:00 70 mm[Hg] Kelse y Seybold pressure Heart rate 2021-11-24 20:12:00 71 /min Adeola S eybold Body temperature 2021-11-24 20:12:00 36.89 Erika Yulissa ey Seybold Respiratory rate 2021-11-24 20:12:00 14 /min Yulissa ey Seybold Body height 2021-11-24 20:12:00 152.4 cm Adeola S eybold Systolic blood 2021-10-22 16:35:00 149 mm[Hg] Adeola Seybold pressure Diastolic blood 2021-10-22 16:35:00 80 mm[Hg] Kelse y Seybold pressure Heart rate 2021-10-22 16:35:00 64 /min Adeola S eybold Body temperature 2021-10-22 16:35:00 36.72 Erika Yulissa ey Seybold Respiratory rate 2021-10-22 16:35:00 15 /min Yulissa ey Seybold Body height 2021-10-22 16:35:00 152.4 cm Adeola S eybold Body weight 2021-10-22 16:35:00 83.099 kg Adeola S eybold BMI 2021-10-22 16:35:00 35.78 kg/m2 Adeola S eybold Oxygen saturation in 2021-10-22 16:35:00 100 /min Adeola Seybold Arterial blood by Pulse oximetry Systolic blood 2021-10-08 15:03:00 108 mm[Hg] Adeola Seybold pressure Diastolic blood 2021-10-08 15:03:00 52 mm[Hg] Kelse y Seybold pressure Heart rate 2021-10-08 15:03:00 71 /min Adeola S eybold Body temperature 2021-10-08 15:03:00 36.39 Erika Yulissa ey Seybold Respiratory rate 2021-10-08 15:03:00 14 /min Yulissa ey Seybold Body height 2021-10-08 15:03:00 152.4 cm Adeola S eybold Body weight 2021-10-08 15:03:00 78.926 kg Adeola S eybold BMI 2021-10-08 15:03:00 33.98 kg/m2 Adeola S eybold Systolic blood 2021-09-07 17:02:00 132 mm[Hg] Adeola Seybold pressure Diastolic blood 2021-09-07 17:02:00 76 mm[Hg] Kelse y Seybold pressure Heart rate 2021-09-07 17:02:00 78 /min Adeola Cárdenas eybold Body temperature 2021-09-07 17:02:00 36.44 Erika Yulissa ey Seybold Body weight 2021-09-07 17:02:00 78.926 kg Adeola zelayabold BMI 2021-09-07 17:02:00 33.98 kg/m2 Adeola Cárdenas eybold Systolic blood 2021-06-29 18:45:00 116 mm[Hg] Adeola Seybold pressure Diastolic blood 2021-06-29 18:45:00 64 mm[Hg] Kelse y Seybold pressure Heart rate 2021-06-29 18:45:00 59 /min Adeola Cárdenas eybold Body temperature 2021-06-29 18:45:00 36.5 Erika Yulissa ey Seybold Respiratory rate 2021-06-29 18:45:00 14 /min Yulissa zelaya Seybold Body height 2021-06-29 18:45:00 152.4 cm Adeola zelayabojuan Body weight 2021-06-29 18:45:00 80.559 kg Adeola zelayabold BMI 2021-06-29 18:45:00 34.69 kg/m2 Adeola zelayabojuan Oxygen saturation in 2021-06-29 18:45:00 97 /min Adeola Alamoybmaynor Arterial blood by Pulse oximetry Systolic blood 2022-11-08 17:02:00 136 mm[Hg] [facility] Diastolic blood 2022-11-08 17:02:00 65 mm[Hg] [facility] Heart rate 2022-11-08 17:02:00 55 /min [facility] Respiratory rate 2022-11-08 17:02:00 18 /min [facility] Oxygen saturation in 2022-11-08 17:02:00 99 /min [facility] Arterial blood by Medical Ce nter Pulse oximetry BMI 2022-11-08 15:02:00 36.13 kg/m2 [facility] Body temperature 2022-11-08 15:02:00 37 Erika [facility] Body height 2022-11-08 15:02:00 152.4 cm [facility] Body weight 2022-11-08 15:02:00 83.915 kg [facility] Procedures Procedure Date / Time Performed Performing Clinician Mona gallegos MR BRAIN WITH & WITHOUT 2022-11-08 16:58:[address] [facility] IV CONTRAST [facility] XR CHEST 2 VIEWS 2022-11-08 13:23:00 Richard Vazquez [facility] ARRYTHMIA IMPLANT 2022-11-08 00:00:00 Provider, Leyla [facility] REPORT - SCAN Scanning [facility] CBC WITH 2021-11-24 21:06:00 Colleen Brown DIFFERENTIAL/PLATELET MAGNESIUM, SERUM 2021-11-24 21:06:00 Colleen Brown EXTERNAL IMAGING 2021-09-07 19:23:00 Vira Hyde URINALYSIS, ROUTINE 2021-06-29 20:12:00 Colleen Brownbojuan BASIC METABOLIC PANEL 2021-06-29 20:12:00 Colleen Brown (8) MICROSCOPIC EXAMINATION 2021-06-29 20:12:00 Colleen Brown Plan of Care Planned Activity Planned Date Details Comments Source Future Scheduled 2023-06-[address] [facility] Test 00:00:00 (Season Ended) [code = [facility] INFLUENZA VACCINE (Season Ended)] Future Scheduled 2022-10-[address] [facility] Test 00:00:00 (12+) [code = Medical Center DEPRESSION SCREENING (12+)] Future Scheduled 2022-10-03 FALLS RISK SCREENING [facility] Test 00:00:00 [code = FALLS RISK Medical C enter SCREENING] Future Scheduled 2022-04-[address] [facility] 00:00:00 WELLNESS (YEAR 2 or Medical Center FIRST YEAR if no IPPE) [code = MEDICARE ANNUAL WELLNESS (YEAR 2 or FIRST YEAR if no IPPE)] Future Scheduled 2010 PNEUMOCOCCAL 65+ YRS [facility] Test 00:00:00 (1 - PCV) [code = Medical nter PNEUMOCOCCAL 65+ YRS (1 - PCV)] Future Scheduled 1995 SHINGLES VACCINES ([address] [facility] Test 00:00:00 of 2) [code = SHINGLES Medic al Center VACCINES (1 of 2)] Future Scheduled 1964 DTAP/TDAP/TD VACCINES [facility] 00:00:00 (1 - Tdap) [code = Medical C enter DTAP/TDAP/TD VACCINES (1 - Tdap)] Future Scheduled 1963 HEPATITIS C SCREENING [facility] 00:00:00 [code = HEPATITIS C Medical Center SCREENING] Future Scheduled [address] [facility] Test 00:00:00 Counseling and Medical Cente r Screening (12+) [code = Tobacco Cessation Counseling and Screening (12+)] Future Scheduled 1946-03-10 COVID-19 VACCINE (#1) [facility] 00:00:00 [code = COVID-[address] VACCINE (#1)] Future Scheduled 1945 DXA SCAN [code = DXA [facility] Test 00:00:00 SCAN] [facility] Encounters Start End Encounter Admission Attending Care Care Encounter Source Date/Time Date/Time Type Type Clinicians Facility Department ID 2023-04-01 2023-04-01 Outpatient ADEOLA MCCONNELL [id number] Adeola 13:15:00 13:15:00 PATSY Seybol d 2023-03-21 2023-03-21 Outpatient DANIEL MCKEON [id number] Adeola 14:45:00 14:45:00 Seybol d 2023-01-14 2023-01-14 Outpatient DANIEL MCKEON [id number] Adeola 00:00:00 00:00:00 Seybol d 2023-01-07 2023-01-07 Outpatient ADEOLA CÁRDENAS [id number] [facility] 00:00:00 00:00:00 RASHNO Seybol d 2023-01-03 2023-01-03 Outpatient ADEOLA HYDE [id number] [place] 00:00:00 00:00:00 VIRA Seybol d 2022-12-17 2022-12-17 Outpatient LAB90 ADEOLA RINCON [id number] [place] 13:45:00 13:45:00 Seybol d 2022-12-03 2022-12-03 Outpatient HUNDL, ADEOLA RINCON [id number] [place] 00:00:00 00:00:00 COLLEEN Seybol d 2022-11-10 2022-11-10 Outpatient OU, ADEOLA RINCON [id number] [place] 13:00:00 13:00:00 POLLO Sagastume old 2022-11-08 2022-11-08 Hospital Ou, [facility] [id number] [facility] 11:09:28 23:59:00 [facility] 2022-11-08 2022-11-08 Outpatient EL OU, [facility] [id number] [facility] 11:09:28 23:59:00 POLLO 2022-11-02 2022-11-02 Outpatient EL OU, [facility] [id number] [facility] 00:00:00 00:00:00 POLLO 2022-10-26 2022-10-26 Outpatient OU, ADEOLA RINCON [id number] [place] 11:00:00 11:00:00 POLLO Seyb old 2022-10-18 2022-10-18 Outpatient EL OU, [facility] [id number] [facility] 00:00:00 00:00:00 POLLO 2022-10-13 2022-10-13 Outpatient OU, ADEOLA RINCON [id number] [place] 11:00:00 11:00:00 POLLO Seyb old 2022-10-06 2022-10-06 Outpatient LAB90 ADEOLA RINCON [id number] [place] 13:45:00 13:45:00 Seybol d 2022-10-06 2022-10-06 Outpatient LILALADEOLA [id number] [place] 13:00:00 13:00:00 COLLEEN Seybol d 2022-10-06 2022-10-06 Outpatient LILALADEOLA [id number] [place] 00:00:00 00:00:00 COLLEEN Seybol d 2022-10-01 2022-10-01 Outpatient EL OU, [facility] [id number] [facility] 00:00:00 00:00:00 POLLO 2022-09-30 2022-09-30 Outpatient ADEOLA BROWN [id number] [place] 00:00:00 00:00:00 COLLEEN Seybol d 2022-09-15 2022-09-15 Outpatient OU, ADEOLA RINCON [id number] [place] 14:00:00 14:00:00 POLLO Seyb old 2022 2022 Outpatient ADEOLA BROWN [id number] [place] 00:00:00 00:00:00 COLLEEN Seybol d 2022 2022 Outside Ou, [facility] [id number] [facility] 00:00:00 00:00:00 [facility] 2022-08-23 2022-08-23 Outpatient ADEOLA BROWN [id number] [place] 00:00:00 00:00:00 COLLEEN Seybol d 2022-08-12 2022-08-12 Outpatient ADEOLA HYDE [id number] [place] 00:00:00 00:00:00 VIAR Seybol d 2022-07-28 2022-07-28 Outpatient MYKELSEYONL ADEOLA RINCON [id number] [place] 00:00:00 00:00:00 MD MURRAY Seybol d 2022-07-23 2022-07-23 Outpatient OU, ADEOLA RINCON [id number] [place] 00:00:00 00:00:00 POLLO Seyb old 2022-07-20 2022-07-20 Outpatient ADEOLA BROWN [id number] [place] 00:00:00 00:00:00 COLLEEN Seybol d 2022-07-20 2022-07-20 Outpatient KEVIN, ADEOLA RINCON [id number] [place] 00:00:00 00:00:00 COLLEEN Seybol d 2022-07-06 2022-07-06 Outpatient LAB90 ADEOLA RINCON [id number] [place] 14:00:00 14:00:00 Seybol d 2022-06-22 2022-06-22 Outpatient LAB47 ADEOLA RINCON [id number] [place] 15:30:00 15:30:00 Seybol d 2022-06-22 2022-06-22 Outpatient OU, ADEOLA RINCON [id number] [place] 14:30:00 14:30:00 POLLO Seyb old 2022-06-10 2022-06-10 Outpatient HUNDL, ADEOLA RINCON [id number] [place] 00:00:00 00:00:00 COLLEEN Seybol d 2022-05-13 2022-05-13 Outpatient HUNDL, ADEOLA RINCON [id number] [place] 00:00:00 00:00:00 COLLEEN Seybol d 2022-05-13 2022-05-13 Outpatient HUNDL, ADEOLA RINCON [id number] [place] 00:00:00 00:00:00 COLLEEN Seybol d 2022-04-21 2022-04-21 Outpatient HUNDL, ADEOLA RINCON [id number] [place] 00:00:00 00:00:00 COLLEEN Seybol d 2022-04-19 2022-04-19 Office LilaFacundo galo [id number] [place] 13:00:00 14:00:00 Visit Colleen Hood 350.1.13.13 Se jose [id number] [id number] 2022-04-06 2022-04-06 Outpatient ADEOLA HYDE [id number] [place] 00:00:00 00:00:00 VIRA Seybol d 2022-04-02 2022-04-02 Outpatient KEVIN ADEOLA RINCON [id number] [place] 00:00:00 00:00:00 COLLEEN Seybol d 2022-03-18 2022-03-18 Outpatient BALJEETDEEPAK Kendrick [id number] [place] 11:00:00 11:00:00 Seybol d 2022-03-17 2022-03-17 Outpatient ADEOLA RECIO [id number] [place] 00:00:00 00:00:00 LETY Sagastumeo ld 2022-03-15 2022-03-15 Outpatient BALJEETDEEPAK Kendrick [id number] [place] 00:00:00 00:00:00 Seybol d 2022-03-04 2022-03-04 Outpatient BALJEETDEEPAK Kendrick [id number] [place] 00:00:00 00:00:00 Seybol d 2022-02-25 2022-02-25 Outpatient LAB90 ADEOLA RINCNO [id number] [place] 14:30:00 14:30:00 Seybol d 2022-02-25 2022-02-25 Outpatient HUNDL, ADEOLA RINCON [id number] [place] 00:00:00 00:00:00 COLLEEN Seybol d 2022-02-25 2022-02-25 Outpatient HUNDL, ADEOLA RINCON [id number] [place] 00:00:00 00:00:00 COLLEEN Seybol d 2022-02-15 2022-02-15 Outpatient KATHERINE, LOREDO ADEOLA RINCON [id number] [place] 10:00:00 10:00:00 Seybol d 2022-02-15 2022-02-15 Outpatient HUNDL, ADEOLA RINCON [id number] [place] 10:00:00 10:00:00 COLLEEN Seybol d 2022-02-13 2022-02-13 Outpatient SWAB, CK ADEOLA RINCON [id number] [place] 11:20:00 11:20:00 Seybol d 2022-02-01 2022-02-01 Outpatient BARRETT, ADEOLA RINCON [id number] [place] 00:00:00 00:00:00 VIRA Seybol d 2022-01-27 2022-01-27 Outpatient LAB90 ADEOLA RINCON [id number] [place] 14:45:00 14:45:00 Seybol d 2022-01-25 2022-01-25 Outpatient LAB90 ADEOLA RINCON [id number] [place] 14:55:00 14:55:00 Seybol d 2022-01-25 2022-01-25 Outpatient HUNDL, ADEOLA RINCON [id number] [place] 00:00:00 00:00:00 COLLEEN Seybol d 2022-01-11 2022-01-11 Outpatient HUNDL, ADEOLA RINCON [id number] [place] 00:00:00 00:00:00 COLLEEN Seybol d 2022-01-08 2022-01-08 Outpatient LAB90 ADEOLA RINCON [id number] [place] 10:55:00 10:55:00 Seybol d 2022-01-08 2022-01-08 Outpatient HUNDL ADEOLA RINCON [id number] [place] 00:00:00 00:00:00 COLLEEN Seybol d 2021-12-28 2021-12-28 Office HundFacundo galo [id number] [place] 13:00:00 14:00:00 Visit Colleen Hood 350.1.13.13 Se ybold 1.2.7.2.686 [id number] 2021-12-24 2021-12-24 Outpatient LAB90 ADEOLA RINCON [id number] [place] 10:55:00 10:55:00 Seybol d 2021-12-15 2021-12-15 Outpatient ADEOLA RINCON [id number] [place] 00:00:00 00:00:00 Seybol d 2021-12-15 2021-12-15 Outpatient BALJEET, DEEPAKTrent RINCON [id number] [place] 00:00:00 00:00:00 Seybol d 2021-12-04 2021-12-04 Office Deepak Delong [id number] [place] 16:40:00 17:00:00 Visit 350.1.13.13 Se ybold 1.2.7.2.686 [id number] 2021-12-04 2021-12-04 Outpatient BALJEET, DEEPAKTrent RINCON [id number] [place] 13:20:00 13:20:00 Seybol d 2021-12-04 2021-12-04 Outpatient BALJEET, DEEPAKTrent RINCON [id number] [place] 00:00:00 00:00:00 Seybol d 2021-12-02 2021-12-02 Outpatient LILALADEOLA [id number] [place] 00:00:00 00:00:00 COLLEEN Seybol d 2021-12-02 2021-12-02 Outpatient ADEOLA BROWN [id number] [place] 00:00:00 00:00:00 COLLEEN Seybol d 2021-11-25 2021-11-25 Outpatient ADEOLA NAGY [id number] [place] 00:00:00 00:00:00 MUHAMMED Seybo ld 2021-11-24 2021-11-24 Outpatient LAB90 ADEOLA RINCON [id number] [place] 15:05:00 15:05:00 Seybol d 2021-11-24 2021-11-24 Office Facundo Brown [id number] [place] 14:00:00 14:30:00 Visit Colleen Hood 350.1.13.13 Se ybold 1.2.7.2.686 [id number] 2021-11-20 2021-11-20 Outpatient ADEOLA HYDE [id number] [place] 00:00:00 00:00:00 VIRA Seybol d 2021-11-18 2021-11-18 Outpatient ADEOLA BROWN [id number] [place] 00:00:00 00:00:00 COLLEEN Seybol d 2021-11-16 2021-11-16 Outpatient LAB90 ADEOLA RINCON [id number] [place] 14:25:00 14:25:00 Seybol d 2021-11-16 2021-11-16 Outpatient ADEOLA BROWN [id number] [place] 00:00:00 00:00:00 COLLEEN Seybol d 2021-11-13 2021-11-13 Outpatient ADEOLA BROWN [id number] [place] 00:00:00 00:00:00 COLLEEN Seybol d 2021-11-13 2021-11-13 Outpatient ADEOLA BROWN [id number] [place] 00:00:00 00:00:00 COLLEEN Seybol d 2021-11-13 2021-11-13 Outpatient ADEOLA BROWN [id number] [place] 00:00:00 00:00:00 COLLEEN Seybol d 2021-11-05 2021-11-05 Outpatient ADEOLA BROWN [id number] [place] 00:00:00 00:00:00 COLLEEN Seybol d 2021-11-03 2021-11-03 Outpatient ADEOLA RINCON [id number] [place] 09:45:00 09:45:00 Seybol d 2021-10-30 2021-10-30 Outpatient LAB90 ADEOLA RINCON [id number] [place] 11:40:00 11:40:00 Seybol d 2021-10-30 2021-10-30 Outpatient LILAAmita ADEOLA RINCON [id number] [place] 00:00:00 00:00:00 COLLEEN Seybol d 2021-10-30 2021-10-30 Outpatient KEVIN ADEOLA RINCON [id number] [place] 00:00:00 00:00:00 COLLEEN Seybol d 2021-10-29 2021-10-29 Outpatient ADEOLA HYDE [id number] [place] 00:00:00 00:00:00 VIRA Seybol d 2021-10-29 2021-10-29 Outpatient KEVIN ADEOLA RINCON [id number] [place] 00:00:00 00:00:00 COLLEEN Seybol d 2021-10-28 2021-10-28 Outpatient ADEOLA RINCON [id number] [place] 00:00:00 00:00:00 Seybol d 2021-10-28 2021-10-28 Outpatient SHAKIRA-LATI ADEOLA RINCON [id number] [place] 00:00:00 00:00:00 ALISA, Seybol d DMITRY 2021-10-27 2021-10-27 Outpatient KEVIN ADEOLA RINCON [id number] [place] 00:00:00 00:00:00 COLLEEN Seybol d 2021-10-27 2021-10-27 Outpatient KEVIN ADEOLA RINCON [id number] [place] 00:00:00 00:00:00 COLLEEN Seybol d 2021-10-26 2021-10-26 Outpatient ADEOLA RINCON [id number] [place] 00:00:00 00:00:00 Seybol d 2021-10-23 2021-10-23 Outpatient LAB90 ADEOLA RINCON [id number] [place] 10:30:00 10:30:00 Seybol d 2021-10-22 2021-10-22 Outpatient LAB90 ADEOLA RINCON [id number] [place] 11:50:00 11:50:00 Seybol d 2021-10-22 2021-10-22 Office Facundo Brown [id number] [place] 10:30:00 11:30:00 Visit Colleen Hood 350.1.13.13 Se ybold 1.2.7.2.686 [id number] 2021-10-22 2021-10-22 Outpatient ADEOLA RINCON [id number] [place] 00:00:00 00:00:00 Seybol d 2021-10-22 2021-10-22 Outpatient ADEOLA BROWN [id number] [place] 00:00:00 00:00:00 COLLEEN Seybol d 2021-10-13 2021-10-13 Outpatient ADEOLA HYDE [id number] [place] 00:00:00 00:00:00 VIRA Seybol d 2021-10-12 2021-10-12 Outpatient ADEOLA RAHMAN [id number] [place] 00:00:00 00:00:00 DESIREE Seybol d 2021-10-12 2021-10-12 Outpatient ADEOLA RINCON [id number] [place] 00:00:00 00:00:00 Seybol d 2021-10-12 2021-10-12 Outpatient ADEOLA RINCON [id number] [place] 00:00:00 00:00:00 Seybol d 2021-10-09 2021-10-09 Outpatient ADEOLA HYDE [id number] [place] 00:00:00 00:00:00 VIRA Seybol d 2021-10-08 2021-10-08 Office Facundo BROWN 1.2.840.114 [id number] [place] 09:30:00 09:30:00 Visit COLLEEN Hood 350.1.13.13 Se ybold 1.2.7.2.686 [id number] 2021-10-07 2021-10-07 Outpatient ADEOLA HYDE [id number] [place] 00:00:00 00:00:00 VIRA Seybol d 2021-09-30 2021-09-30 Outpatient SAYRA RAHMAN [id number] [place] 11:45:00 11:45:00 Seybol d 2021-09-07 2021-09-07 Outpatient LAB90 ADEOLA RINCON [id number] [place] 11:55:00 11:55:00 Seybol d 2021-09-07 2021-09-07 Office Facundo Hyde 1.2.840.114 [id number] [place] 11:00:00 11:30:00 Visit Vira Hood 350.1.13.13 Se ybold Somogyi 1.2.7.2.686 [id number] 2021-09-07 2021-09-07 Outpatient ADEOLA HYDE [id number] [place] 00:00:00 00:00:00 VIRA Seybol d 2021-09-07 2021-09-07 Outpatient ADEOLA RINCON [id number] [place] 00:00:00 00:00:00 Seybol d 2021-07-06 2021-07-06 Outpatient ADEOLA HYDE [id number] [place] 00:00:00 00:00:00 VIRA Seybol d 2021-06-29 2021-06-29 Outpatient LAB90 ADEOLA RINCON [id number] [place] 15:10:00 15:10:00 Seybol d 2021-06-29 2021-06-29 Office Facundo Brown 1.2.840.114 [id number] [place] 13:31:37 14:01:37 Visit Colleen Hood 350.1.13.13 Se ybold 1.2.7.2.686 [id number] 2021-06-22 2021-06-22 Outpatient SAYRA RAHMAN [id number] [place] 15:30:00 15:30:00 Seybol d 2021-05-27 2021-05-27 Outpatient ADEOLA HYDE [id number] [place] 00:00:00 00:00:00 VIRA Seybol d 2021-05-21 2021-05-21 Outpatient ADEOLA BEARD [id number] [place] 00:00:00 00:00:00 THUYMINH Seybo ld 2021-05-20 2021-05-20 Outpatient JENNY RINCON [id number] [place] 15:00:00 15:00:00 , AICHA Sagastumeo ld 2021-05-19 2021-05-19 Outpatient ADEOLA HYDE [id number] [place] 14:00:00 14:00:00 VIRA Seybol d 2021-05-16 2021-05-16 Emergency EM Alethea, HCACL HARIKA [id number] [facility] 14:15:00 18:21:00 Beau 04 [facility] 2021-05-16 2021-05-16 Outpatient ADEOLA CRAWFORD [id number] [place] 13:00:00 13:00:00 JOBY Seybol d 2021-05-08 2021-05-08 Outpatient ADEOLA YHDE [id number] [place] 00:00:00 00:00:00 VIRA Seybol d 2021-05-07 2021-05-07 Outpatient ADEOLA RINCON [id number] [place] 15:00:00 15:00:00 Seybol d 2021-04-30 2021-04-30 Outpatient ADEOLA BEARD [id number] [place] 00:00:00 00:00:00 JYALIN Seybol d 2021-04-29 2021-04-29 Outpatient LAB90 ADEOLA RINCON [id number] [place] 13:35:00 13:35:00 Seybol d 2021-04-28 2021-04-28 Outpatient ADEOLA BEARD [id number] [place] 09:30:00 09:30:00 JAYLIN Seybol d 2021-04-28 2021-04-28 Outpatient DEEPAK DELONG [id number] [place] 00:00:00 00:00:00 Seybol d 2021-04-24 2021-04-24 Outpatient LAB47 ADEOLA RINCON [id number] [place] 14:35:00 14:35:00 Seybol d 2021-04-24 2021-04-24 Outpatient DEEPAK DELONG [id number] [place] 13:40:00 13:40:00 Seybol d 2021-04-24 2021-04-24 Outpatient ADEOLA CORRALES [id number] [place] 11:00:00 11:00:00 JONA robledo Results Test Description Test Time Test Comments Results Result [facility] e Comments MR, BRAIN, WITH 2022-11-09 Unlisted Reason 14:55:00 for Exam - Click Yes and [facility] Enter Reason LUKES - MEDICAL Below->YesUnlis CENTERName: JORGE ALBERTO lee Reason for BREA CEJA Exam->meningiom : 1945 Sex: a F FINAL REPORT MR, BRAIN, WITH \T\ WITHOUT CONTRAST INDICATION: Unlisted Reason for Exammeningioma Technique: Multiplanar, multisequence MRI images of the brain were obtained before and after demonstration of intravenous contrast. COMPARISON: None FINDINGS:Brain parenchyma is normal in morphology. Midline structures are normally developed. No restricted diffusion to suggest recent ischemic insult. No abnormal susceptibility. Scattered FLAIR hyperintensities in the supratentorial white matter are incompletely characterized but favored to represent chronic small vessel ischemic changes. No hydrocephalus. Orbits are within normal limits. No obstructive paranasal sinus disease. Hyperostosis frontalis is present. Chronic deformity of the left mandible, incompletely characterized. IMPRESSION: 1.No acute infarct, intracranial hemorrhage, or mass. 2.Extra-axial calcifications along the frontal convexities. No meningioma identified. Signed: Lillian Davison MDReport Verified Date/Time: 11/09/2022 14:55:54 , CHEST, 2 2022-11-08 Reason for VIEWS 13:58:00 exam:->mri pacemaker [facility] CENTERName: BREA GILES : 1945 Sex: F FINAL REPORT INDICATION: mri pacemaker clearance COMPARISON: None TECHNIQUE: AP and lateral view of the chest. FINDINGS: Lungs and pleura: Clear lungs. No effusion.Heart and mediastinum: Normal heart size. Unremarkable mediastinal contours.Osseous structures: No acute abnormality.Other: Pacer. IMPRESSION: No acute intrathoracic abnormality. Signed: Yue Sexton Verified Date/Time: 11/08/2022 13:58:06 Reading Location: [address] Reading Room ESIUM, SERUM 2021-11-25 14:26:00 Test Item Value Reference Range Interpretation Comme nts MAGNESIUM, SERUM (test code = 22330-5) 1.8 mg/dL 1.6-2.3 CHELSEY (test code = CHELSEY) [facility] results reported in Eastern Time. [facility] Clinical Information:SRC:Blood, venous*Venipunc ture ? [facility] Source of Specimen:Blood, venous*Venipunc [facility] DIFFERENTIAL/[id number] 13:00:00 Test Item Value Reference Range Interpretation Comments WHITE BLOOD CELL See_Comment H [Automated (WBC) COUNT (test message] T he code = 6690-2) system which generated this result transmit rosa reference range : 3.4 - 10.8 x10E3/uL. The reference range was not used to interpret this result as normal/abnormal . RED BLOOD CELL (RBC) See_Comment [Autom ated COUNT (test code = message] The 789-8) system which generated this result transmit rosa reference range : 3.77 - 5.28 x10E6/uL. The reference range was not used to interpret this result as normal/abnormal . HEMOGLOBIN (test code 10.2 g/dL 11.1-15.9 L = 718-7) HEMATOCRIT (test code 34.4 % 34.0-46.6 = 4544-3) MCV (test code = 84 fL 79-97 787-2) MCH (test code = 24.9 pg 26.6-33.0 L 785-6) MCHC (test code = 29.7 g/dL 31.5-35.7 L 786-4) RDW (test code = 16.0 % 11.7-15.4 H 788-0) PLATELETS (test code See_Comment [Autom ated = 777-3) message] The system which generated this result transmit rosa reference range : 150 - 450 x10E3/uL. The reference range was not used to interpret this result as normal/abnormal . NEUTROPHILS (test 80 % Not Estab. code = 770-8) LYMPHS (test code = 10 % Not Estab. 736-9) MONOCYTES (test code 5 % Not Estab. = 5905-5) EOS (test code = 3 % Not Estab. 713-8) BASOS (test code = 1 % Not Estab. 706-2) NEUTROPHILS See_Comment H [Automated (ABSOLUTE) (test code messag e] The = 751-8) system which generated this result transmit rosa reference range : 1.4 - 7.0 x10E3/uL. The reference range was not used to interpret this result as normal/abnormal . LYMPHS (ABSOLUTE) See_Comment [Automate d (test code = 731-0) message] The system which generated this result transmit rosa reference range : 0.7 - 3.1 x10E3/uL. The reference range was not used to interpret this result as normal/abnormal . MONOCYTES(ABSOLUTE) See_Comment [Automa rosa (test code = 742-7) message] The system which generated this result transmit rosa reference range : 0.1 - 0.9 x10E3/uL. The reference range was not used to interpret this result as normal/abnormal . EOS (ABSOLUTE) (test See_Comment [Autom ated code = 711-2) message] The system which generated this result transmit rosa reference range : 0.0 - 0.4 x10E3/uL. The reference range was not used to interpret this result as normal/abnormal . BASO (ABSOLUTE) (test See_Comment [Auto mated code = 704-7) message] The system which generated this result transmit rosa reference range : 0.0 - 0.2 x10E3/uL. The reference range was not used to interpret this result as normal/abnormal . IMMATURE GRANULOCYTES 1 % Not Estab. (test code = 93228-9) IMMATURE GRANS (ABS) See_Comment [Autom ated (test code = 57452-4) messag e] The system which generated this result transmit rosa reference range : 0.0 - 0.1 x10E3/uL. The reference range was not used to interpret this result as normal/abnormal . CHELSEY (test code = CHELSEY) [facility] results reported in Eastern Time. [facility] Clinical Information:SRC :Blood, venous*Venipunc ture ? [facility] Source of Specimen:Blood, venous*Venipunc Lab Interpretation Abnormal (test code = 10645-3) Adeola yboldEXTERNAL [id number] 20:45:00 Test Item Value Reference Range Interpretation Comments Radiology Study observation (narrative) (test code = 02974-1) CHELSEY (test code = CHELSEY) [facility]- LeftRib Xray: ?Comparision Chest Pa and Lat from 09/07 Findings : ?Left subclavian approach pacemaker/ICD. ?No displaced left-sided rib fractures are identified. Impression: ?No displaced left-sided rib fractures are identified. ?No pneumothorax. ?Nondisplaced or minimally displaced fractures may not be apparrent on initial radiography until healing begins. Rad- Chest Pa and Lat 2 Views. Comparison: ?Chest Single View dated 09/16/2019; Chest Pa and Lat dated 09/13/2019, Chest Single View dated 07/17/2019, chest Pa and Lat dated 09/14/2018. Findinge: ?Lines: ?None.Lungs: ?No evidence of brodie or pneumonia. Pleural: ?No significant pleural effusions or pneumothroax. Cardiac: ?Cardiomegaly. ?Pacemaker/ICDBones: ?No acuter fractures. IMPRESSION: ?No acute cardiopulmonary disease. Lab Interpretation Normal (test code = 70265-8) Adeola SierraURINALYSIS, [id number] 21:24:00 Test Item Value Reference Range Interpretation Comments SPECIFIC GRAVITY 1.005-1.030 (test code = 2965-2) PH (test code = 5.0-7.5 5803-2) URINE-COLOR (test Yellow Yellow code = 5778-6) APPEARANCE (test code Clear Clear = 5767-9) WBC ESTERASE (test Negative Negative code = 5799-2) PROTEIN (test code = 1+ Negative/Trace A 14168-4) GLUCOSE (test code = 3+ Negative A 2349-9) KETONES (test code = Trace Negative A 2514-8) OCCULT BLOOD (test Negative Negative code = 5794-3) BILIRUBIN (test code Negative Negative = 5770-3) UROBILINOGEN,SEMI-QN 1.0 mg/dL 0.2-1.0 (test code = 51453-6) NITRITE, URINE (test Negative Negative code = 5802-4) MICROSCOPIC See below: Microscopic was EXAMINATION (test indicated and was code = 70725-7) performed. CHELSEY (test code = CHELSEY) [facility] results reported in Eastern Time. [facility] Clinical Information:SRC :Urine*Urine ?[facility] Source of Specimen:Urine* Urine Lab Interpretation Abnormal (test code = 44685-5) Adeola AlamoyboldMICROSCOPIC [id number] 21:24:00 Test Item Value Reference Range Interpretation Comments WBC (test code = 0-5 See_Comment [Automated 5821-4) message] The system which generated this result transmit rosa reference range : 0 - 5 /hpf. The reference range was not used to interpret this result as normal/abnormal . RBC (test code = None seen See_Comment [Automated 68751-7) message] The system which generated this result transmit rosa reference range : 0 - 2 /hpf. The reference range was not used to interpret this result as normal/abnormal . EPITHELIAL CELLS (NON 0-10 See_Comment [Auto mated RENAL) (test code = message] The 5787-7) system which generated this result transmit orsa reference range : 0 - 10 /hpf. The reference range was not used to interpret this result as normal/abnormal . CASTS (test code = Present None seen /lpf A 39371-7) CAST TYPE (test code Hyaline casts N/A = 92990-2) BACTERIA (test code = None seen None seen/Few 5769-5) CHELSEY (test code = CHELSEY) [facility] results reported in Eastern Time. [facility] Clinical Information:SRC :Urine*Urine ?[facility] Source of Specimen:Urine* Urine Lab Interpretation Abnormal (test code = 51304-5) Adeola CarrilloSIC METABOLIC PANEL (8)2021-06-30 13:16:00 Test Item Value Reference Range Interpretation Comments GLUCOSE, SERUM (test 220 mg/dL 65-99 H code = 2345-7) BUN (test code = 20 mg/dL 8-27 3094-0) CREATININE, SERUM 1.34 mg/dL 0.57-1.00 H (test code = 2160-0) EGFR IF NONAFRICN AM 39 mL/min/1.73 >59 L (test code = 00399-6) EGFR IF AFRICN AM 45 mL/min/1.73 >59 L [facility] p (test code = 64527-0) angelina nunn reports eGFR in compliance with the current ?recommendation s of the [employer] Kid[employer]. [facility] will ?update reporti ng as new guidelin es are published from the NKF- N ?Task force. BUN/CREATININE RATIO 12-28 (test code = 3097-3) SODIUM, SERUM (test 141 mmol/L 134-144 code = 2951-2) POTASSIUM, SERUM (test 4.3 mmol/L 3.5-5.2 code = 2823-3) CHLORIDE, SERUM (test 105 mmol/L 96-106 code = 2075-0) CARBON DIOXIDE, TOTAL 22 mmol/L 20-29 (test code = 8-9) CALCIUM, SERUM (test 9.4 mg/dL 8.7-10.3 code = 35548-4) CHELSEY (test code = CHELSEY) [facility] results reported in Eastern Time. [facility] Clinical Information:SRC :Blood, venous*Venipunc ture ? [facility] Source of Specimen:Blood, venous*Venipunc Lab Interpretation Abnormal (test code = 15520-2) Adeola Topete RFLX MICR CULT IF [id number] 18:01:00 Test Item Value Reference Range Interpretation Comments UA COLOR (test code = COLU) YELLOW YEL/STRAW UA APPEARANCE (test code = SL CLOUDY CLEAR APPU) UA GLUCOSE DIPSTICK (test code 3+ NEGATIVE A = DGLUU) UA BILIRUBIN DIPSTICK (test NEGATIVE NEGATIVE code = BILU) UA KETONE DIPSTICK (test code NEGATIVE NEGATIVE = KETU) UA SPECIFIC GRAVITY (test code 1.011 1.005-1.030 N = SGU) UA BLOOD DIPSTICK (test code = NEGATIVE NEGATIVE AARON) UA PH DIPSTICK (test code = 5.0 5.0-7.0 N LIZETTE) UA PROTEIN DIPSTICK (test code NEGATIVE NEGATIVE = PROU) UA UROBILINIOGEN DIPSTICK 0.2 mg/dL 0.2-1.0 (test code = URO) UA NITRITE DIPSTICK (test code NEGATIVE NEGATIVE = ALY) UA LEUKOCYTE ESTERASE DIPSTICK 2+ NEGATIVE A (test code = LEUU) UA WBC (test code = WBCU) 10-20 WBC/HPF 0-3 A UA RBC (test code = RBCU) 0-3 RBC/HPF 0-3 UA WBC NO REFLEX (test code = 10-20 WBC/HPF 0-3 A WBCUCL) UA BACTERIA (test code = BACU) NONE SEEN /HPF NONE SEEN UA SQUAMOUS CELLS (test code = 0-5 /HPF NONE SEEN SQU) UA HYALINE CAST (test code = 3-5 /LPF NONE SEEN HYALU) UA MUCUS (test code = MUCU) TRACE /LPF NONE SEEN Indication for culture: RiskForSepsis-no oth srcSpecimen Description: MID STREAM B-TYPE NATRIURETIC [id number] 16:06:00 Test Item Value Reference Range Interpretation Comments B-TYPE NATRIURETIC PEPTIDE (test 151.0 PG/ML 0-100 H code = BNP) BASIC METABOLIC [id number] 15:59:00 Test Item Value Reference Range Interpretation Comments SODIUM (test code = NA) 140 mEq/L 134-147 N POTASSIUM (test code = 4.0 mEq/L 3.4-5.0 N K) CHLORIDE (test code = 107 mEq/L 100-108 N CL) CARBON DIOXIDE (test 26 mEq/l 21-33 N code = CO2) ANION GAP (test code = 11 0-20 N GAP) GLUCOSE (test code = 183 mg/dL 70-110 H GLU) BLOOD UREA NITROGEN 15 mg/dL 7-18 N (test code = BUN) GLOMERULAR FILTRATION 36.7 70-80 L Units of measure = RATE (test code = GFR) ml/mi n/1.73 m2 CREATININE (test code = 1.4 mg/dL 0.6-1.3 H CREAT) CALCIUM (test code = 9.6 mg/dL 8.0-10.5 N CA) [id number] 15:59:00 Test Item Value Reference Range Interpretation Comments TROPONIN-I 0.031 ng/mL 0.000-0.045 N Negative: <= 0. 045 Positive: (test code = >= 0.046 Correl ation with TROPI) serial results, other cardiac markers andclin ical findings is necessary to determine the clinicalsignifi cance of this result. Results using different metho dologies should not be c omparedto one another as deep titative results may paloma y by method. PROTHROMBIN [id number] 15:58:00 Test Item Value Reference Range Interpretation Comments PROTHROMBIN TIME 11.9 SECONDS 9.3-12.9 N PATIENT (test code = PTP) INTERNATIONAL NORMAL 1.1 0.8-1.2 N TARGET INR BY RATIO (test code = INDICATIO N Indication INR) INR1. Prophylax is of venous thrombos is 2.0 - 3.0 (orthoped ic surgery), Proph ylaxis of venous throm bosis (other than hig h-risk surgery), Treat ment of Deep Vein Thrombosis/Pulm onary Embolism, Preve ntion of systemic emb olism - Tissue heart va lves, Acute Myocardia l Infarction (to prevent systemic emboli sm), Valvular heart disease, Atrial Fibrillation, Bileaflet mecha nical valve in aortic position.2. Mec hanical prosthetic valv es (high risk), 2. 5 - 3.5 Presence of Lup us Anticoagulant o r Antiphospholipi d Antibodies, Pre vention of systemic emb olism - Acute Myocardia l Infarction (to prevent recurrent infar ct). THROMBOPLASTIN TIME [id number] 15:58:00 Test Item Value Reference Range Interpretation Comments THROMBOPLASTIN TIME 31.0 Seconds 25.0-39.5 N Therape utic Range: PARTIAL (test code = 50.4 - 88.3 Seconds PTT) Effective 01/16/2019 PROTHROMBIN [id number] 15:57:00 Test Item Value Reference Range Interpretation Comments PROTHROMBIN TIME 11.9 SECONDS 9.3-12.9 N PATIENT (test code = PTP) INTERNATIONAL NORMAL 1.1 0.8-1.2 N TARGET INR BY RATIO (test code = INDICATIO N Indication INR) INR1. Prophylax is of venous thrombos is 2.0 - 3.0 (orthoped ic surgery), Proph ylaxis of venous throm bosis (other than hig h-risk surgery), Treat ment of Deep Vein Thrombosis/Pulm onary Embolism, Preve ntion of systemic emb olism - Tissue heart va lves, Acute Myocardia l Infarction (to prevent systemic emboli sm), Valvular heart disease, Atrial Fibrillation, Bileaflet mecha nical valve in aortic position.2. Mec hanical prosthetic valv es (high risk), 2. 5 - 3.5 Presence of Lup us Anticoagulant o r Antiphospholipi d Antibodies, Pre vention of systemic emb olism - Acute Myocardia l Infarction (to prevent recurrent infar ct). THROMBOPLASTIN TIME [id number] 15:57:00 Test Item Value Reference Range Interpretation Comments THROMBOPLASTIN TIME PARTIAL (test Seconds 25.0-39.5 code = PTT) CBC W/AUTO [id number] 15:47:00 Test Item Value Reference Range Interpretation Comments WHITE BLOOD CELL (test code = 10.4 x10 3/uL 4.5-11.0 N WBC) RED BLOOD CELL (test code = 4.39 x10 6/uL 3.54-5.02 N RBC) HEMOGLOBIN (test code = HGB) 11.6 g/dL 11.0-15.0 N HEMATOCRIT (test code = HCT) 39.2 % 33.0-45.0 N MEAN CELL VOLUME (test code = 89.3 fL 81.0-99.0 N MCV) MEAN CELL HGB (test code = MCH) 26.4 pg 27.0-33.0 L MEAN CELL HGB CONCETRATION 29.6 g/dL 33.0-37.0 L (test code = MCHC) RED CELL DISTRIBUTION WIDTH CV 18.0 % 11.5-14.5 H (test code = RDW) RED CELL DISTRIBUTION WIDTH SD 59.2 fL 37.0-54.0 H (test code = RDW-SD) PLATELET COUNT (test code = 247 x10 3/uL 150-400 N PLT) MEAN PLATELET VOLUME (test code 10.1 fL 7.0-9.0 H = MPV) NEUTROPHIL % (test code = NT%) 75.2 % 56.0-77.0 N IMMATURE GRANULOCYTE % (test 0.4 % 0.0-2.0 N code = IG%) LYMPHOCYTE % (test code = LY%) 11.5 % 14.0-32.0 L MONOCYTE % (test code = MO%) 10.7 % 4.8-9.0 H EOSINOPHIL % (test code = EO%) 1.5 % 0.3-3.7 N BASOPHIL % (test code = BA%) 0.7 % 0.0-2.0 N NUCLEATED RBC % (test code = 0.0 % 0-0 N NRBC%) NEUTROPHIL # (test code = NT#) 7.84 x10 3/uL 2.0-7.6 H IMMATURE GRANULOCYTE # (test 0.04 x10 3/uL 0.00-0.03 H code = IG#) LYMPHOCYTE # (test code = LY#) 1.20 x10 3/uL 1.0-3.8 N MONOCYTE # (test code = MO#) 1.12 x10 3/uL 0.1-0.8 H EOSINOPHIL # (test code = EO#) 0.16 x10 3/uL 0.0-0.2 N BASOPHIL # (test code = BA#) 0.07 x10 3/uL 0.0-0.2 N NUCLEATED RBC # (test code = 0.00 x10 3/uL 0.0-0.1 N NRBC#) MANUAL DIFF REQUIRED (test code NO = MDIFF) - XR HIP W/PEL UNI 2+V [id number] 00:00:00 [facility] JORGE ALBERTO JEFFRIESBREA DOWELL : 1945 Sex: F FAX: Kirby Gruber [phone] [place]: St: REG Name: JORGE ALBERTO JEFFRIESBREA DOWELL [facility] [place] : 1945ge/S: 75/ [address] [place] [address] Unit #: [id number] Loc: [place] [address] Phys: Kirby Gruber Acct: [id number] Dis Date: Status: REG ER PHONE #: [phone] Exam Date: 05/16/2021 1552X #: [phone] Reason: fall, R hip pain EXAMS: CPT CODE: [id number] XR HIP W/PEL UNI 2+[place] 79080 PROCEDURE INFORMATION: Exam: XR Right Hip Exam date and time: 05/16/2021 3:27 PM Age: 75 years old Clinical indication: Injury or trauma; Fall; Sprain or strain; Right; Hip; Additional info: Fall, R hip pain TECHNIQUE: Imaging protocol: XR Right hip. Views: 2 or 3 views hip with pelvis when performed. COMPARISON: No relevant prior studies available. Images of the right hip were obtained in 2 projections. The proximal right femur demonstrates no evidence of acute fracture or bone destruction. The femoral head is normally located and the bony acetabulum appears intact. No abnormalities of the bony th orax are noted. IMPRESSION: 1. No acute bony abnormalities of the right hip are detected. SL: 131 at 1607 Reported and signed by: Oli Meza M.D. CC: Kirby ANDERSEN Technologist: RT Aziza(Maddison) Trnadams Date/Time/By: 05/16/2021 (8427) : By: Laquita Orig Print D/T: S: 05/16/2021 (0967) PAGE 1 Signed Report- XR FEMUR MIN 2 VWS [id number] 00:00:00 Name: BREA GILES : 1945 Sex: F FAX: Kirby Gruber [phone] [place]: St: REG Name: BREA GILES [facility] : [birth year]Age/S: 75/F [address] [place] [address] Unit #: [id number] Loc: [place] [address] Phys: Kirby Gruber Acct: [id number] Dis Date: Status: REG ER PHONE #: [phone] Exam Date: 05/16/2021 1552FAX #: [phone] Reason: fall, R hip pain EXAMS: CPT CODE: [id number] XR FEMUR MIN 2 [place] [address] PROCEDURE INFORMATION: Exam: XR Right Femur Exam date and time: 05/16/2021 3:27 PM Age: 75 years old Clinical indication: Trauma, injury to the right lower extremity, status post fall TECHNIQUE: Imagingprotocol: XR Right femur. Views: 2 views. COMPARISON: No relevant prior studies available. FINDINGS:Bones/joints: No fracture or other acute osseous abnormality is seen involving the right femur. Noteis made of a right total knee prosthesis which appears to be in good position. Soft tissues: There is no soft tissue swelling or radiopaque foreign bodies. Notes: Notes: If there is further concern, re commend follow-up radiographs or bone scan for complete assessment. IMPRESSION: 1. Negative right femur. 2. Note is made of a right total knee prosthesis which appears to be in good position. at 1277 Reported and signed by: Gene Chun M.D. CC: Kirby ANDERSEN Technologist: RT Aziza(R) Trnscrd Date/Time/By: 05/16/2021 (1601) : By: [email or web address] Orig Print D/T: S: 05/16/2021 (3922) PAGE 1 Signed Report- XR CHEST 1 [id number] 00:00:00 [facility]: FREDIQRAGIOVANNI MARCIAL TAVIAJEFF [place] : 1945 Sex: F FAX: Kirby Gruber [phone] [place]: St: REG Name: BREA GILES [facility] Jayme Loredo : 1945 Age/S: 75/F [address] [place] [address] Unit #: [id number] Loc: [place] [address] Phys: Kirby Gruber Acct: [id number] Dis Date: Status: REG ER PHONE #: [phone] Exam Date: 05/16/2021 1552FAX #: [phone] Reason: trauma EXAMS: CPT CODE: [id number] XR CHEST 1 V 02247 PROCEDURE INFORMATION: Exam: XR Chest Exam date and time: 05/16/2021 3:27 PM Age: 75 years old Clinical indication: Pain;Other: Trauma TECHNIQUE: Imaging protocol: XR of the chest. Views: 1 view. COMPARISON: CR XR CHEST 1V 07/20/2019 5:36 AM The positioning of the dual lead left subclavian transvenous pacemaker has not significantly changed in the interim. The heart appears enlarged. The cardiomediastinal shadow is stable. The lungs appear clear. The pulmonary vasculature is normal in caliber. No acute pleural space abnormalities are detected. No gross abnormalities of the bony thorax are noted. IMPRESSION: 1. No radiographic evidence of acute cardiopulmonary disease. SL: 131 at 1604 Reported and signed by: Oli Meza M.D. CC:Kirby ANDERSEN Technologist: RT Aziza(Maddison) Trnscrd Date/Time/By: 05/16/2021 (3174) : By: Laquita Orig Print D/T: S: 05/16/2021 (2365) PAGE 1 Signed Report- CT HEAD/BRAIN W/O [id number] 00:00:00 [facility] JAYME LOREDOName: BREA GILES : 1945 Sex: F Name: BREA GILES [facility] Jayme Loredo : 1945 Age/S: 75 / F [address] [place] [address] Blvd Unit #: [id number] Loc: [place] [address] Phys: Kirby Gruber Acct: [id number] Dis Date: Status: REG ER PHONE #: [phone] Exam Date: 05/16/2021 1609 FAX #: [phone] Reason: trauma, Rposterior hematoma, on Xarelto EXAMS: CPT CODE: [id number] CT HEAD/BRAIN W/O CONT 78148 PROCEDURE INFO RMATION: Exam: CT Head Without Contrast Exam date and time: 05/16/2021 3:50 PM Age: 75 years old Clinical indication: Injury or trauma; Fall; Blunt trauma (contusions or hematomas); Additional info: Trauma, R posterior hematoma, on xarelto TECHNIQUE: Imaging protocol: Computed tomography of the head without contrast. Radiation optimization: All CT scans at this facility use at least one of these doseoptimization techniques: automated exposure control; mA and/or kV adjustment per patient size (includes targeted exams where dose is matched to clinical indication); or iterative reconstruction. Other technique: CT radiation dose DLP (MGY-CM) : 562.04 COMPARISON: No relevant prior studies available. FI NDINGS: Brain: There are mild generalized involutional changes. The cerebral cortical architecture is otherwise maintained. Mild areas of diminished attenuation in the cerebral white matter bilateral. The midline structures and posterior fossa contents are unremarkable. There is no intra-axial or extra- axial hemorrhage, mass lesion or mass effect. Calcified plaque cavernous carotid arteries. Cerebralventricles: No ventriculomegaly. Paranasal sinuses: Visualized sinuses are unremarkable. No fluid levels. Mastoid air cells: Visualized mastoid air cells are well aerated. Bones/joints: The calvarium is intact. Soft tissues: Unremarkable. Notes: If there is continued clinical concern further imaging op tions include MRI. IMPRESSION: 1. Negative for acute intracranial injury. 2. Mild chronic microvascular ischemic changes. at 1624 Reported and signed by: Alfonso Selby M.D. PAGE 1 Signed Report (CONTINUED) Name: BREA GILES [facility] [place] : 1945 Age/S: 75 / F [address] [place] [address] Unit #: [id number] Loc: [place] [address] Phys: Kirby Gruber Acct: [id number] Dis Date: Status: REG ER PHONE #: [phone] Exam Date: 05/16/2021 1609 FAX #: [phone] Reason: trauma, R posterior hematoma, on Xarelto EXAMS: CPT CODE: [id number] CT HEAD/BRAIN W/O CONT 00800 <Continued> CC: Kirby ANDERSEN T echnologist:RT Carleen(R)(CT) CTDI: DLP: Trnscb Date/Time: 05/16/2021 (1623) [email or web address] Orig Print D/T: S: 05/16/2021 (1623) PAGE 2 Signed Report- CT C-SPINE W/O [id number] 00:00:00 Name: BREA GILES : 1945 Sex: F Name: BREA GILES [facility] : 1945 Age/S: 75 / F [address] [place] [address] Unit #: [id number] Loc: [place] [address] Phys: DarlingtonKirby ANDERSEN Acct: [id number] Dis Date: Status: REG ER PHONE #: [phone] Exam Date: 05/16/2021 1609 FAX #: [phone] Reason: trauma, posterior head pain EXAMS: CPT CODE: [id number] CT C-SPINE W/O CONT 22786 PROCEDURE INFORMATION: Exam: CT Cervical Spine Without Contrast Exam date and time: 05/16/2021 3:55 PM Age: 75 years old Clinical indication: Injury or trauma; Fall; Blunt trauma; Additional info: Trauma, posterior head pain TECHNIQUE: Imaging protocol: Computed tomography images of the cervical spine without contrast. Radiation opt imization: All CT scans at this facility use at least one of these dose optimization techniques: automated exposure control; mA and/or kV adjustment per patient size (includes targeted exams where doseis matched to clinical indication); or iterative reconstruction. COMPARISON: CT HEAD/BRAIN W/O CONT 3:50 PM FINDINGS: There is mild S-shaped scoliosis of the cervical spine, probably positional. The prevertebral soft tissues, atlanto-dental interspace and craniocervical junction are normal. The posterior elements and spinous processes are normal. The facet joint, spinolaminar and spinous process alignment are normal. There are no fractures or subluxations of the cervical spine. Intervertebral disc space narrowing with marginal spurs from C4 to T1. Multilevel facet joint arthrosis. There are mild to moderate neuroforaminal stenosis at C5-C6 and C6-C7. The visualized lung apices are unremarkable. A 2.0 x 1.3 cm hypodense nodule inferior pole of the right thyroid lobe. A calcified nodule also seen in the right thyroid lobe. CT myelogram or MRI of the cervical spine may be performed, if there is further concern. IMPRESSION: 1. No acute fractures or subluxations of the cervical spine. 2. Degenerative changes. 3. Right thyroid nodule. If indicated, a nonemergent thyroid ultrasound can be performed further assessment. at 1645 Reported and signed by: Zackary Malik M.D. PAGE 1 Signed Report (CONTINUED) Name: BREA GILES [facility] [place] : 1945 Age/S: 75 / F [address] [place] [address] Blvd Unit #: [id number] Loc: [place] [address] Phys: Kirby Gruber Acct: [id number] Dis Date: Status: REG ER PHONE #: [phone] Exam Date: 05/16/2021 1609 FAX #: [phone] Reason: trauma, posterior head pain EXAMS: CPT CODE:[id number] CT C-SPINE W/O CONT 49861 <Continued> CC: Kirby ANDERSEN Technologist:RT Carleen(Maddison)(CT) CTDI: DLP: Trnscb Date/Time: 05/16/2021 (1644) [email or web address] Orig Print D/T: S: 05/16/2021 (1644) PAGE 2 Signed ReportGLUCOSE BEDSIDE [id number] 07:45:00 Test Item Value Reference Range Interpretation Comments GLUCOSE BEDSIDE TESTING (test code 130 MG/DL 60-99 H = GLUBED) BASIC METABOLIC [id number] 06:54:00 Test Item Value Reference Range Interpretation Comments SODIUM (test code = 130 MMOL/L 137-145 L NA) POTASSIUM (test code = 4.1 MMOL/L 3.5-5.1 N K) CHLORIDE (test code = 91 MMOL/L 98-107 L CL) CARBON DIOXIDE (test 29 MMOL/L 22-30 N code = CO2) GLUCOSE (test code = 135 MG/DL 74-106 H GLU) BLOOD UREA NITROGEN 56 MG/DL 7-17 H (test code = BUN) GLOMERULAR FILTRATION 44 Report ing units: RATE (test code = GFR) ml/mi n/1.73 m2 (Modified MDRD Formula)Referen ce Range: > or = 6 0 ml/min/1.73 m2 CREATININE (test code 1.20 MG/DL 0.52-1.04 H = CREAT) CALCIUM (test code = 9.8 MG/DL 8.4-10.2 N CA) BASIC METABOLIC [id number] 06:53:00 Test Item Value Reference Range Interpretation Comments SODIUM (test code = 130 MMOL/L 137-145 L NA) POTASSIUM (test code = 4.1 MMOL/L 3.5-5.1 N K) CHLORIDE (test code = 91 MMOL/L 98-107 L CL) CARBON DIOXIDE (test 29 MMOL/L 22-30 N code = CO2) GLUCOSE (test code = 135 MG/DL 74-106 H GLU) BLOOD UREA NITROGEN 56 MG/DL 7-17 H (test code = BUN) GLOMERULAR FILTRATION 44 Report ing units: RATE (test code = GFR) ml/mi n/1.73 m2 (Modified MDRD Formula)Referen ce Range: > or = 6 0 ml/min/1.73 m2 CREATININE (test code 1.20 MG/DL 0.52-1.04 H = CREAT) CALCIUM (test code = MG/DL 8.7-9.7 CA) BASIC METABOLIC [id number] 06:50:00 Test Item Value Reference Range Interpretation Comments SODIUM (test code = NA) 130 MMOL/L 137-145 L POTASSIUM (test code = K) 4.1 MMOL/L 3.5-5.1 N CHLORIDE (test code = CL) 91 MMOL/L 98-107 L CARBON DIOXIDE (test code = CO2) MMOL/L 22-30 GLUCOSE (test code = GLU) MG/DL 74-106 BLOOD UREA NITROGEN (test code = MG/DL 7-17 BUN) GLOMERULAR FILTRATION RATE (test code = GFR) CREATININE (test code = CREAT) MG/DL 0.52-1.04 CALCIUM (test code = CA) MG/DL 8.7-9.7 CBC W/AUTO [id number] 06:24:00 Test Item Value Reference Range Interpretation Comments WHITE BLOOD CELL (test code = 14.5 K/MM3 3.8-9.8 H WBC) RED BLOOD CELL (test code = 4.70 M/MM3 3.58-4.97 N RBC) HEMOGLOBIN (test code = HGB) 11.2 G/DL 11.2-14.9 N HEMATOCRIT (test code = HCT) 38.1 % 33.2-43.5 N MEAN CELL VOLUME (test code = 81 fL 80.7-99.1 N MCV) MEAN CELL HGB (test code = MCH) 23.8 pg 27.0-34.1 L MEAN CELL HGB CONCETRATION 29.4 % 32.2-35.7 L (test code = MCHC) RED CELL DISTRIBUTION WIDTH 17.1 % 12.1-15.2 H (test code = RDW) PLATELET COUNT (test code = 415 K/MM3 129-368 H PLT) MEAN PLATELET VOLUME (test code 9.9 fl 7.4-10.4 N = MPV) NEUTROPHIL % (test code = NT%) 73.6 % 43-75 N IMMATURE GRANULOCYTE % (test 1.3 % 0.0-2.0 N code = IG%) LYMPHOCYTE % (test code = LY%) 16.3 % 14-44 N MONOCYTE % (test code = MO%) 7.8 % 4-13 N EOSINOPHIL % (test code = EO%) 0.6 % 0-6 N BASOPHIL % (test code = BA%) 0.4 % 0-2 N NUCLEATED RBC % (test code = 0.0 % 0-1.0 N NRBC%) NEUTROPHIL # (test code = NT#) 10.63 K/mm3 2.0-7.6 H IMMATURE GRANULOCYTE # (test 0.19 x10 3/uL 0-0.03 H code = IG#) LYMPHOCYTE # (test code = LY#) 2.36 K/mm3 1.0-3.8 N MONOCYTE # (test code = MO#) 1.12 K/mm3 0.1-0.8 H EOSINOPHIL # (test code = EO#) 0.09 K/mm3 0.0-0.2 N BASOPHIL # (test code = BA#) 0.06 K/mm3 0.0-0.2 N NUCLEATED RBC # (test code = 0.00 K/mm3 0.0-0.1 N NRBC#) GLUCOSE BEDSIDE [id number] 05:35:00 Test Item Value Reference Range Interpretation Comments GLUCOSE BEDSIDE TESTING (test code 161 MG/DL 60-99 H = GLUBED) UR SODIUM [id number] 00:53:00 Test Item Value Reference Range Interpretation Comments UR SODIUM RANDOM (test code = MARIAH) 13 MMOL/L 27-287 L UR OSMOLALITY [id number] 00:53:00 Test Item Value Reference Range Interpretation Comments UR OSMOLALITY RANDOM (test code 310.5 MOS/KG 300-1200 N = OSMOU) UR SODIUM [id number] 23:08:00 Test Item Value Reference Range Interpretation Comments UR SODIUM RANDOM (test code = MARIAH) 13 MMOL/L 27-287 L UR OSMOLALITY [id number] 23:08:00 Test Item Value Reference Range Interpretation Comments UR OSMOLALITY RANDOM (test code = MOS/KG 300-1200 OSMOU) OSMOLALITY [id number] 19:19:00 Test Item Value Reference Range Interpretation Comments OSMOLALITY SERUM (test code = 301 mOsm/kg 275-295 H OSMO) GLUCOSE BEDSIDE [id number] 16:55:00 Test Item Value Reference Range Interpretation Comments GLUCOSE BEDSIDE TESTING (test code 294 MG/DL 60-99 H = GLUBED) GLUCOSE BEDSIDE [id number] 12:44:00 Test Item Value Reference Range Interpretation Comments GLUCOSE BEDSIDE TESTING (test code 202 MG/DL 60-99 H = GLUBED) GLUCOSE BEDSIDE [id number] 11:17:00 Test Item Value Reference Range Interpretation Comments GLUCOSE BEDSIDE TESTING (test code 266 MG/DL 60-99 H = GLUBED) GLUCOSE BEDSIDE [id number] 11:16:00 Test Item Value Reference Range Interpretation Comments GLUCOSE BEDSIDE TESTING (test code 112 MG/DL 60-99 H = GLUBED) - XR CHEST [id number] 08:11:00 Patient Name: BREA GILES Unit No: [id number] EXAMS: CPT CODE: [id number] XR CHEST 1V 47357 Site ID: [id number] EXAMINATION: - XR CHEST 1V. HISTORY: leukocytosis, f/u chf. COMPARISON: July 17, 2019. Findings: The lungs are clear. The heart size is enlarged. There is a pacemaker with 2 cardiac leads again seen.. There is no effusion or pneumothorax. The mediastinum and david appear unremarkable. Impression: Cardiomegaly. at 0811 Reported and signed by: Ramesh Way MD CC: Dexter Beard MD; Viviana Thompson MD Technologist: Frances Reardon RT(R) Transcrpt Date/Tm/Trnsp: 07/20/2019 (0811) [email or web address] Orig Print D/T: S: 07/20/2019 (0814) [facility] NAME: BREA GILES [address] PHYS: BEATR[place] [address] : 1945 AGE: 73 SEX: F LOC: Darrell A PHONE #: [phone] EXAM DATE: 07/20/2019 STATUS: ADM IN FAX #: [phone] RADIOLOGY NO: PAGE 1 Signed ReportBASIC METABOLIC [id number] 05:45:00 Test Item Value Reference Range Interpretation Comments SODIUM (test code = 129 MMOL/L 137-145 L NA) POTASSIUM (test code = 3.6 MMOL/L 3.5-5.1 N K) CHLORIDE (test code = 88 MMOL/L 98-107 L CL) CARBON DIOXIDE (test 29 MMOL/L 22-30 N code = CO2) GLUCOSE (test code = 126 MG/DL 74-106 H GLU) BLOOD UREA NITROGEN 62 MG/DL 7-17 H (test code = BUN) GLOMERULAR FILTRATION 44 Report ing units: RATE (test code = GFR) ml/mi n/1.73 m2 (Modified MDRD Formula)Referen ce Range: > or = 6 0 ml/min/1.73 m2 CREATININE (test code 1.20 MG/DL 0.52-1.04 H = CREAT) CALCIUM (test code = 9.5 MG/DL 8.4-10.2 N CA) [id number] 05:41:00 Test Item Value Reference Range Interpretation Comments DIGOXIN (test code = DIG) 0.6 NG/ML 0.8-2.0 L BASIC METABOLIC [id number] 05:25:00 Test Item Value Reference Range Interpretation Comments SODIUM (test code = 129 MMOL/L 137-145 L NA) POTASSIUM (test code = 3.6 MMOL/L 3.5-5.1 N K) CHLORIDE (test code = 88 MMOL/L 98-107 L CL) CARBON DIOXIDE (test 29 MMOL/L 22-30 N code = CO2) GLUCOSE (test code = MG/DL 74-106 GLU) BLOOD UREA NITROGEN MG/DL 7-17 (test code = BUN) GLOMERULAR FILTRATION 44 Report ing units: RATE (test code = GFR) ml/mi n/1.73 m2 (Modified MDRD Formula)Referen ce Range: > or = 6 0 ml/min/1.73 m2 CREATININE (test code 1.20 MG/DL 0.52-1.04 H = CREAT) CALCIUM (test code = MG/DL 8.7-9.7 CA) BASIC METABOLIC [id number] 05:22:00 Test Item Value Reference Range Interpretation Comments SODIUM (test code = NA) 129 MMOL/L 137-145 L POTASSIUM (test code = K) 3.6 MMOL/L 3.5-5.1 N CHLORIDE (test code = CL) 88 MMOL/L 98-107 L CARBON DIOXIDE (test code = CO2) MMOL/L 22-30 GLUCOSE (test code = GLU) MG/DL 74-106 BLOOD UREA NITROGEN (test code = MG/DL 7-17 BUN) GLOMERULAR FILTRATION RATE (test code = GFR) CREATININE (test code = CREAT) MG/DL 0.52-1.04 CALCIUM (test code = CA) MG/DL 8.7-9.7 CBC W/AUTO [id number] 05:00:00 Test Item Value Reference Range Interpretation Comments WHITE BLOOD CELL (test code = 16.4 K/MM3 3.8-9.8 H WBC) RED BLOOD CELL (test code = 4.71 M/MM3 3.58-4.97 N RBC) HEMOGLOBIN (test code = HGB) 11.4 G/DL 11.2-14.9 N HEMATOCRIT (test code = HCT) 38.7 % 33.2-43.5 N MEAN CELL VOLUME (test code = 82 fL 80.7-99.1 N MCV) MEAN CELL HGB (test code = MCH) 24.2 pg 27.0-34.1 L MEAN CELL HGB CONCETRATION 29.5 % 32.2-35.7 L (test code = MCHC) RED CELL DISTRIBUTION WIDTH 16.9 % 12.1-15.2 H (test code = RDW) PLATELET COUNT (test code = 454 K/MM3 129-368 H PLT) MEAN PLATELET VOLUME (test code 9.5 fl 7.4-10.4 N = MPV) NEUTROPHIL % (test code = NT%) 76.7 % 43-75 H IMMATURE GRANULOCYTE % (test 1.4 % 0.0-2.0 N code = IG%) LYMPHOCYTE % (test code = LY%) 14.6 % 14-44 N MONOCYTE % (test code = MO%) 6.3 % 4-13 N EOSINOPHIL % (test code = EO%) 0.7 % 0-6 N BASOPHIL % (test code = BA%) 0.3 % 0-2 N NUCLEATED RBC % (test code = 0.0 % 0-1.0 N NRBC%) NEUTROPHIL # (test code = NT#) 12.54 K/mm3 2.0-7.6 H IMMATURE GRANULOCYTE # (test 0.23 x10 3/uL 0-0.03 H code = IG#) LYMPHOCYTE # (test code = LY#) 2.39 K/mm3 1.0-3.8 N MONOCYTE # (test code = MO#) 1.03 K/mm3 0.1-0.8 H EOSINOPHIL # (test code = EO#) 0.11 K/mm3 0.0-0.2 N BASOPHIL # (test code = BA#) 0.05 K/mm3 0.0-0.2 N NUCLEATED RBC # (test code = 0.00 K/mm3 0.0-0.1 N NRBC#) URINALYSIS [id number] 21:50:00 Test Item Value Reference Range Interpretation Comments UA COLOR (test code = YELLOW YELLOW COLU) UA APPEARANCE (test code CLEAR CLEAR = APPU) UA GLUCOSE DIPSTICK (test NORMAL MG/DL NORMAL code = DGLUU) UA BILIRUBIN DIPSTICK NEGATIVE MG/DL NEGATIVE (test code = BILU) UA KETONE DIPSTICK (test NEGATIVE MG/DL NEGATIVE code = KETU) UA SPECIFIC GRAVITY (test 1.015 1.003-1.030 N code = SGU) UA BLOOD DIPSTICK (test NEGATIVE Gonzalez/mm3 NEGATIVE code = AARON) UA PH DIPSTICK (test code 5.0 5.0-9.0 N = LIZETTE) UA PROTEIN DIPSTICK (test NEGATIVE MG/DL NEGATIVE code = PROU) UA UROBILINIOGEN DIPSTICK NORMAL MG/DL NORMAL (test code = URO) UA NITRITE DIPSTICK (test NEGATIVE NEGATIVE code = ALY) UA LEUKOCYTE ESTERASE TRACE /mm3 NEGATIVE A DIPSTICK (test code = LEUU) UA CULTURE NEEDED? (test NO, WBC<10 Criteria Culture Chk code = UACULT) SOURCE OF URINE: VOIDEDUA [id number] 21:50:00 Test Item Value Reference Range Interpretation Comments UA RBC (test code = RBCU) 0-3 RBC/HPF 0-3 UA WBC (test code = XWBCU) 5-9 WBC/HPF 0-5 A UA EPITHELIAL CELLS (test code = FEW EPI/HPF FEW EPIU) UA BACTERIA (test code = XBACU) FEW NONE SOURCE OF URINE: VOIDEDURINALYSIS [id number] 21:43:00 Test Item Value Reference Range Interpretation Comments UA COLOR (test code = COLU) YELLOW YELLOW UA APPEARANCE (test code = CLEAR CLEAR APPU) UA GLUCOSE DIPSTICK (test NORMAL MG/DL NORMAL code = DGLUU) UA BILIRUBIN DIPSTICK (test NEGATIVE MG/DL NEGATIVE code = BILU) UA KETONE DIPSTICK (test NEGATIVE MG/DL NEGATIVE code = KETU) UA SPECIFIC GRAVITY (test 1.015 1.003-1.030 N code = SGU) UA BLOOD DIPSTICK (test code NEGATIVE Gonzalez/mm3 NEGATIVE = AARON) UA PH DIPSTICK (test code = 5.0 5.0-9.0 N LIZETTE) UA PROTEIN DIPSTICK (test NEGATIVE MG/DL NEGATIVE code = PROU) UA UROBILINIOGEN DIPSTICK NORMAL MG/DL NORMAL (test code = URO) UA NITRITE DIPSTICK (test NEGATIVE NEGATIVE code = ALY) UA LEUKOCYTE ESTERASE TRACE /mm3 NEGATIVE A DIPSTICK (test code = LEUU) UA CULTURE NEEDED? (test Criteria Culture Chk code = UACULT) SOURCE OF URINE: VOIDEDUA [id number] 21:43:00 Test Item Value Reference Range Interpretation Comments UA RBC (test code = RBCU) RBC/HPF 0-3 UA WBC (test code = XWBCU) WBC/HPF 0-5 UA EPITHELIAL CELLS (test code = EPI/HPF FEW EPIU) UA BACTERIA (test code = XBACU) NONE SOURCE OF URINE: VOIDEDURINALYSIS [id number] 21:43:00 Test Item Value Reference Range Interpretation Comments UA COLOR (test code = COLU) YELLOW YELLOW UA APPEARANCE (test code = CLEAR CLEAR APPU) UA GLUCOSE DIPSTICK (test NORMAL MG/DL NORMAL code = DGLUU) UA BILIRUBIN DIPSTICK (test NEGATIVE MG/DL NEGATIVE code = BILU) UA KETONE DIPSTICK (test NEGATIVE MG/DL NEGATIVE code = KETU) UA SPECIFIC GRAVITY (test 1.015 1.003-1.030 N code = SGU) UA BLOOD DIPSTICK (test code NEGATIVE Gonzalez/mm3 NEGATIVE = AARON) UA PH DIPSTICK (test code = 5.0 5.0-9.0 N LIZETTE) UA PROTEIN DIPSTICK (test NEGATIVE MG/DL NEGATIVE code = PROU) UA UROBILINIOGEN DIPSTICK NORMAL MG/DL NORMAL (test code = URO) UA NITRITE DIPSTICK (test NEGATIVE NEGATIVE code = ALY) UA LEUKOCYTE ESTERASE TRACE /mm3 NEGATIVE A DIPSTICK (test code = LEUU) UA CULTURE NEEDED? (test Criteria Culture Chk code = UACULT) SOURCE OF URINE: VOIDEDUA [id number] 21:43:00 Test Item Value Reference Range Interpretation Comments UA RBC (test code = RBCU) RBC/HPF 0-3 UA WBC (test code = XWBCU) WBC/HPF 0-5 UA EPITHELIAL CELLS (test code = EPI/HPF FEW EPIU) UA BACTERIA (test code = XBACU) NONE SOURCE OF URINE: VOIDEDGLUCOSE BEDSIDE [id number] 21:08:00 Test Item Value Reference Range Interpretation Comments GLUCOSE BEDSIDE TESTING (test code 202 MG/DL 60-99 H = GLUBED) GLUCOSE BEDSIDE [id number] 16:25:00 Test Item Value Reference Range Interpretation Comments GLUCOSE BEDSIDE TESTING (test code 191 MG/DL 60-99 H = GLUBED) GLUCOSE BEDSIDE [id number] 07:50:00 Test Item Value Reference Range Interpretation Comments GLUCOSE BEDSIDE TESTING (test code 173 MG/DL 60-99 H = GLUBED) BASIC METABOLIC [id number] 05:13:00 Test Item Value Reference Range Interpretation Comments SODIUM (test code = 130 MMOL/L 137-145 L NA) POTASSIUM (test code = 3.7 MMOL/L 3.5-5.1 N K) CHLORIDE (test code = 90 MMOL/L 98-107 L CL) CARBON DIOXIDE (test 29 MMOL/L 22-30 N code = CO2) ANION GAP (test code = 15 MMOL/L 14-24 N GAP) GLUCOSE (test code = 179 MG/DL 74-106 H GLU) BLOOD UREA NITROGEN 54 MG/DL 7-17 H (test code = BUN) GLOMERULAR FILTRATION 44 Report ing units: RATE (test code = GFR) ml/mi n/1.73 m2 (Modified MDRD Formula)Referen ce Range: > or = 6 0 ml/min/1.73 m2 CREATININE (test code 1.20 MG/DL 0.52-1.04 H = CREAT) CALCIUM (test code = 9.5 MG/DL 8.4-10.2 N CA) BASIC METABOLIC [id number] 05:08:00 Test Item Value Reference Range Interpretation Comments SODIUM (test code = NA) 130 MMOL/L 137-145 L POTASSIUM (test code = K) 3.7 MMOL/L 3.5-5.1 N CHLORIDE (test code = CL) 90 MMOL/L 98-107 L CARBON DIOXIDE (test code = CO2) MMOL/L 22-30 GLUCOSE (test code = GLU) MG/DL 74-106 BLOOD UREA NITROGEN (test code = MG/DL 7-17 BUN) GLOMERULAR FILTRATION RATE (test code = GFR) CREATININE (test code = CREAT) MG/DL 0.52-1.04 CALCIUM (test code = CA) MG/DL 8.7-9.7 CBC W/AUTO [id number] 04:54:00 Test Item Value Reference Range Interpretation Comments WHITE BLOOD CELL (test code = 17.8 K/MM3 3.8-9.8 H WBC) RED BLOOD CELL (test code = 4.72 M/MM3 3.58-4.97 N RBC) HEMOGLOBIN (test code = HGB) 11.5 G/DL 11.2-14.9 N HEMATOCRIT (test code = HCT) 37.7 % 33.2-43.5 MEAN CELL VOLUME (test code = 80 fL 80.7-99.1 L MCV) MEAN CELL HGB (test code = MCH) 24.4 pg 27.0-34.1 L MEAN CELL HGB CONCETRATION 30.5 % 32.2-35.7 L (test code = MCHC) RED CELL DISTRIBUTION WIDTH 17.1 % 12.1-15.2 H (test code = RDW) PLATELET COUNT (test code = 500 K/MM3 129-368 H PLT) MEAN PLATELET VOLUME (test code 9.4 fl 7.4-10.4 N = MPV) NEUTROPHIL % (test code = NT%) 74.8 % 43-75 N IMMATURE GRANULOCYTE % (test 1.0 % 0.0-2.0 N code = IG%) LYMPHOCYTE % (test code = LY%) 14.9 % 14-44 N MONOCYTE % (test code = MO%) 7.8 % 4-13 N EOSINOPHIL % (test code = EO%) 1.1 % 0-6 N BASOPHIL % (test code = BA%) 0.4 % 0-2 N NUCLEATED RBC % (test code = 0.0 % 0-1.0 N NRBC%) NEUTROPHIL # (test code = NT#) 13.29 K/mm3 2.0-7.6 H IMMATURE GRANULOCYTE # (test 0.18 x10 3/uL 0-0.03 H code = IG#) LYMPHOCYTE # (test code = LY#) 2.65 K/mm3 1.0-3.8 N MONOCYTE # (test code = MO#) 1.38 K/mm3 0.1-0.8 H EOSINOPHIL # (test code = EO#) 0.19 K/mm3 0.0-0.2 N BASOPHIL # (test code = BA#) 0.07 K/mm3 0.0-0.2 N NUCLEATED RBC # (test code = 0.00 K/mm3 0.0-0.1 N NRBC#) GLUCOSE BEDSIDE [id number] 19:57:00 Test Item Value Reference Range Interpretation Comments GLUCOSE BEDSIDE TESTING (test code 171 MG/DL 60-99 H = GLUBED) GLUCOSE BEDSIDE [id number] 16:05:00 Test Item Value Reference Range Interpretation Comments GLUCOSE BEDSIDE TESTING (test code 286 MG/DL 60-99 H = GLUBED) GLUCOSE BEDSIDE [id number] 12:28:00 Test Item Value Reference Range Interpretation Comments GLUCOSE BEDSIDE TESTING (test code 234 MG/DL 60-99 H = GLUBED) GLUCOSE BEDSIDE [id number] 08:29:00 Test Item Value Reference Range Interpretation Comments GLUCOSE BEDSIDE TESTING (test code 196 MG/DL 60-99 H = GLUBED) B-TYPE NATRIURETIC [id number] 04:56:00 Test Item Value Reference Range Interpretation Comments B-TYPE NATRIURETIC PEPTIDE (test 371.0 PG/ML 0-100 H code = BNP) COMPREHENSIVE METABOLIC [id number] 04:47:00 Test Item Value Reference Range Interpretation Comments SODIUM (test code = NA) 133 MMOL/L 137-145 L POTASSIUM (test code = 4.3 MMOL/L 3.5-5.1 N K) CHLORIDE (test code = 92 MMOL/L 98-107 L CL) CARBON DIOXIDE (test 33 MMOL/L 22-30 H code = CO2) ANION GAP (test code = 12 MMOL/L 14-24 L GAP) GLUCOSE (test code = 194 MG/DL 74-106 H GLU) BLOOD UREA NITROGEN 39 MG/DL 7-17 H (test code = BUN) GLOMERULAR FILTRATION 54 Report ing units: RATE (test code = GFR) ml/mi n/1.73 m2 (Modified MDRD Formula)Referen ce Range: > or = 6 0 ml/min/1.73 m2 CREATININE (test code = 1.00 MG/DL 0.52-1.04 N CREAT) TOTAL PROTEIN (test 6.9 G/DL 6.3-8.2 N code = PROT) ALBUMIN (test code = 4.0 G/DL 3.5-5.0 N ALB) CALCIUM (test code = 10.1 MG/DL 8.4-10.2 N CA) BILIRUBIN TOTAL (test 0.5 MG/DL 0.2-1.3 code = BILT) SGOT/AST (test code = 29 UNITS/L 14-36 AST) SGPT/ALT (test code = 14 UNITS/L 9-52 N ALT) ALKALINE PHOSPHATASE 81 UNITS/L 38-126 N (test code = ALKP) [id number] 04:47:00 Test Item Value Reference Range Interpretation Comments MAGNESIUM (test code = MAG) 1.9 MG/DL 1.6-2.3 N COMPREHENSIVE METABOLIC [id number] 04:45:00 Test Item Value Reference Range Interpretation Comments SODIUM (test code = NA) 133 MMOL/L 137-145 L POTASSIUM (test code = K) 4.3 MMOL/L 3.5-5.1 N CHLORIDE (test code = CL) 92 MMOL/L 98-107 L CARBON DIOXIDE (test code = CO2) MMOL/L 22-30 GLUCOSE (test code = GLU) MG/DL 74-106 BLOOD UREA NITROGEN (test code = MG/DL 7-17 BUN) GLOMERULAR FILTRATION RATE (test code = GFR) CREATININE (test code = CREAT) MG/DL 0.52-1.04 TOTAL PROTEIN (test code = PROT) G/DL 6.3-8.2 ALBUMIN (test code = ALB) 4.0 G/DL 3.5-5.0 N CALCIUM (test code = CA) MG/DL 8.7-9.7 BILIRUBIN TOTAL (test code = BILT) MG/DL 0.2-1.3 SGOT/AST (test code = AST) UNITS/L 15-37 SGPT/ALT (test code = ALT) UNITS/L 9-52 ALKALINE PHOSPHATASE (test code = UNITS/L 38-126 ALKP) [id number] 04:45:00 Test Item Value Reference Range Interpretation Comments MAGNESIUM (test code = MAG) MG/DL 1.6-2.3 COMPREHENSIVE METABOLIC [id number] 04:44:00 Test Item Value Reference Range Interpretation Comments SODIUM (test code = NA) MMOL/L 137-145 POTASSIUM (test code = K) MMOL/L 3.5-5.1 CHLORIDE (test code = CL) 92 MMOL/L 98-107 L CARBON DIOXIDE (test code = CO2) MMOL/L 22-30 GLUCOSE (test code = GLU) MG/DL 74-106 BLOOD UREA NITROGEN (test code = MG/DL 7-17 BUN) GLOMERULAR FILTRATION RATE (test code = GFR) CREATININE (test code = CREAT) MG/DL 0.52-1.04 TOTAL PROTEIN (test code = PROT) G/DL 6.3-8.2 ALBUMIN (test code = ALB) 4.0 G/DL 3.5-5.0 N CALCIUM (test code = CA) MG/DL 8.7-9.7 BILIRUBIN TOTAL (test code = BILT) MG/DL 0.2-1.3 SGOT/AST (test code = AST) UNITS/L 15-37 SGPT/ALT (test code = ALT) UNITS/L 9-52 ALKALINE PHOSPHATASE (test code = UNITS/L 38-126 ALKP) [id number] 04:44:00 Test Item Value Reference Range Interpretation Comments MAGNESIUM (test code = MAG) MG/DL 1.6-2.3 CBC W/AUTO [id number] 04:25:00 Test Item Value Reference Range Interpretation Comments WHITE BLOOD CELL (test code = 15.1 K/MM3 3.8-9.8 H WBC) RED BLOOD CELL (test code = 5.37 M/MM3 3.58-4.97 H RBC) HEMOGLOBIN (test code = HGB) 13.1 G/DL 11.2-14.9 N HEMATOCRIT (test code = HCT) 42.9 % 33.2-43.5 N MEAN CELL VOLUME (test code = 80 fL 80.7-99.1 L MCV) MEAN CELL HGB (test code = MCH) 24.4 pg 27.0-34.1 L MEAN CELL HGB CONCETRATION 30.5 % 32.2-35.7 L (test code = MCHC) RED CELL DISTRIBUTION WIDTH 17.0 % 12.1-15.2 H (test code = RDW) PLATELET COUNT (test code = 527 K/MM3 129-368 H PLT) MEAN PLATELET VOLUME (test code 9.4 fl 7.4-10.4 N = MPV) NEUTROPHIL % (test code = NT%) 90.4 % 43-75 H IMMATURE GRANULOCYTE % (test 1.1 % 0.0-2.0 N code = IG%) LYMPHOCYTE % (test code = LY%) 6.0 % 14-44 L MONOCYTE % (test code = MO%) 1.9 % 4-13 L EOSINOPHIL % (test code = EO%) 0.1 % 0-6 N BASOPHIL % (test code = BA%) 0.5 % 0-2 N NUCLEATED RBC % (test code = 0.0 % 0-1.0 N NRBC%) NEUTROPHIL # (test code = NT#) 13.62 K/mm3 2.0-7.6 H IMMATURE GRANULOCYTE # (test 0.16 x10 3/uL 0-0.03 H code = IG#) LYMPHOCYTE # (test code = LY#) 0.91 K/mm3 1.0-3.8 L MONOCYTE # (test code = MO#) 0.29 K/mm3 0.1-0.8 N EOSINOPHIL # (test code = EO#) 0.01 K/mm3 0.0-0.2 N BASOPHIL # (test code = BA#) 0.08 K/mm3 0.0-0.2 N NUCLEATED RBC # (test code = 0.00 K/mm3 0.0-0.1 N NR#) GLUCOSE BEDSIDE [id number] 20:14:00 Test Item Value Reference Range Interpretation Comments GLUCOSE BEDSIDE TESTING (test code 173 MG/DL 60-99 H = GLUBED) [id number] 18:39:00 Test Item Value Reference Range Interpretation Comments TROPONIN-I (test code = TROPI) 0.041 NG/ML 0.012-0.033 H B-TYPE NATRIURETIC [id number] 16:46:00 Test Item Value Reference Range Interpretation Comments B-TYPE NATRIURETIC PEPTIDE (test 336.0 PG/ML 0-100 H code = BNP) ADD ONSpecimen comments: Can add to blood in [id number] 16:38:00 Test Item Value Reference Range Interpretation Comments TROPONIN-I (test code = TROPI) 0.042 NG/ML 0.012-0.033 H COMPREHENSIVE METABOLIC [id number] 13:48:00 Test Item Value Reference Range Interpretation Comments SODIUM (test code = NA) 134 MMOL/L 137-145 L POTASSIUM (test code = 4.0 MMOL/L 3.5-5.1 N K) CHLORIDE (test code = 93 MMOL/L 98-107 L CL) CARBON DIOXIDE (test 31 MMOL/L 22-30 H code = CO2) ANION GAP (test code = 14 MMOL/L 14-24 N GAP) GLUCOSE (test code = 151 MG/DL 74-106 H GLU) BLOOD UREA NITROGEN 36 MG/DL 7-17 H (test code = BUN) GLOMERULAR FILTRATION > 60 Report ing units: RATE (test code = GFR) ml/mi n/1.73 m2 (Modified MDRD Formula)Referen ce Range: > or = 6 0 ml/min/1.73 m2 CREATININE (test code = 0.90 MG/DL 0.52-1.04 N CREAT) TOTAL PROTEIN (test 6.8 G/DL 6.3-8.2 N code = PROT) ALBUMIN (test code = 4.0 G/DL 3.5-5.0 N ALB) CALCIUM (test code = 10.3 MG/DL 8.4-10.2 H CA) BILIRUBIN TOTAL (test 0.6 MG/DL 0.2-1.3 N code = BILT) SGOT/AST (test code = 23 UNITS/L 14-36 N AST) SGPT/ALT (test code = 16 UNITS/L 9-52 N ALT) ALKALINE PHOSPHATASE 79 UNITS/L 38-126 N (test code = ALKP) [id number] 13:48:00 Test Item Value Reference Range Interpretation Comments PHOSPHOROUS (test code = PHOS) 3.6 MG/DL 2.5-4.5 N [id number] 13:48:00 Test Item Value Reference Range Interpretation Comments MAGNESIUM (test code = MAG) 2.1 MG/DL 1.6-2.3 N COMPREHENSIVE METABOLIC [id number] 13:39:00 Test Item Value Reference Range Interpretation Comments SODIUM (test code = NA) 134 MMOL/L 137-145 L POTASSIUM (test code = 4.0 MMOL/L 3.5-5.1 N K) CHLORIDE (test code = 93 MMOL/L 98-107 L CL) CARBON DIOXIDE (test MMOL/L 22-30 code = CO2) GLUCOSE (test code = MG/DL 74-106 GLU) BLOOD UREA NITROGEN MG/DL 7-17 (test code = BUN) GLOMERULAR FILTRATION > 60 Report ing units: RATE (test code = GFR) ml/mi n/1.73 m2 (Modified MDRD Formula)Referen ce Range: > or = 6 0 ml/min/1.73 m2 CREATININE (test code = 0.90 MG/DL 0.52-1.04 N CREAT) TOTAL PROTEIN (test G/DL 6.3-8.2 code = PROT) ALBUMIN (test code = 4.0 G/DL 3.5-5.0 N ALB) CALCIUM (test code = MG/DL 8.7-9.7 CA) BILIRUBIN TOTAL (test 0.6 MG/DL 0.2-1.3 N code = BILT) SGOT/AST (test code = UNITS/L 15-37 AST) SGPT/ALT (test code = UNITS/L 9-52 ALT) ALKALINE PHOSPHATASE UNITS/L 38-126 (test code = ALKP) [id number] 13:39:00 Test Item Value Reference Range Interpretation Comments PHOSPHOROUS (test code = PHOS) MG/DL 2.5-4.5 [id number] 13:39:00 Test Item Value Reference Range Interpretation Comments MAGNESIUM (test code = MAG) MG/DL 1.6-2.3 COMPREHENSIVE METABOLIC [id number] 13:37:00 Test Item Value Reference Range Interpretation Comments SODIUM (test code = NA) 134 MMOL/L 137-145 L POTASSIUM (test code = K) 4.0 MMOL/L 3.5-5.1 N CHLORIDE (test code = CL) 93 MMOL/L 98-107 L CARBON DIOXIDE (test code = CO2) MMOL/L 22-30 GLUCOSE (test code = GLU) MG/DL 74-106 BLOOD UREA NITROGEN (test code = MG/DL 7-17 BUN) GLOMERULAR FILTRATION RATE (test code = GFR) CREATININE (test code = CREAT) MG/DL 0.52-1.04 TOTAL PROTEIN (test code = PROT) G/DL 6.3-8.2 ALBUMIN (test code = ALB) 4.0 G/DL 3.5-5.0 N CALCIUM (test code = CA) MG/DL 8.7-9.7 BILIRUBIN TOTAL (test code = BILT) MG/DL 0.2-1.3 SGOT/AST (test code = AST) UNITS/L 15-37 SGPT/ALT (test code = ALT) UNITS/L 9-52 ALKALINE PHOSPHATASE (test code = UNITS/L 38-126 ALKP) [id number] 13:37:00 Test Item Value Reference Range Interpretation Comments PHOSPHOROUS (test code = PHOS) MG/DL 2.5-4.5 [id number] 13:37:00 Test Item Value Reference Range Interpretation Comments MAGNESIUM (test code = MAG) MG/DL 1.6-2.3 - XR CHEST [id number] 13:36:00 Patient Name: BREA GILES Unit No: [id number] EXAMS: CPT CODE: [id number] XR CHEST 1V [id number] Chest Radiograph History: pain Comparison: July 02, 2019 Location: R16 A single frontal view of the chest is submitted. The heart appears unchanged in size. Pulmonary vasculature is unremarkable. The visualized lung ryan appear to be free of disease. The bones appear unchanged. IMPRESSION: There is no radiographic evidence of acute cardiopulmonary disease. at 1336 Reported and signed by: Niko Howell MD CC: ANATOLIY QUINTERO DO; Viviana Thompson MD Technologist: Matt Campbell, RT(R) Transcrpt Date/Tm/Trnsp: 07/17/2019 (1995) ValentePMT Orig Print D/T: S: 07/17/2019 (1221) ARON Gonzalez NAME: BREA GILES [id number] [address] PHYS: [place] [address] : 1945 AGE: 73 SEX: F LOC: [facility] PHONE #: [phone] EXAM DATE: 07/17/2019 STATUS: PRE ER FAX #: [phone] RADIOLOGY NO: PAGE 1 Signed ReportPROTHROMBIN [id number] 13:35:00 Test Item Value Reference Range Interpretation Comments PROTHROMBIN TIME 10.9 SECONDS 9.6-11.6 N PATIENT (test code = PTP) INTERNATIONAL NORMAL 1.0 0.8-1.1 N The INR is to be RATIO (test code = used only for INR) monitoring oral anticoagulantth erap y. INDICATION I NR VALUE ---- ---- ---- -------1. Prophylaxis, de ep venous thrombos is, including high risk surgery. 2.0 - 3.0 2. Prophylaxis, deep venous thrombosis, hip surgery, treatm ent for deep venous thrombosis or pulmonary prevention of systemic emboli sm in patients wit h valvular heart disease, atrial fibrillation, tissue heart va lve, or acute myocar dial infarction. 2. 0 - 3.0 3. Family Services Assistant al prosthesis hear t valves, recurre nt systemic emboli sm. 3.0 - 4.5 PTT [id number] 13:35:00 Test Item Value Reference Range Interpretation Comments PTT ACTIVATED (test code = APTT) 31.5 SECONDS 22.0-33.0 N CBC W/AUTO [id number] 13:34:00 Test Item Value Reference Range Interpretation Comments WHITE BLOOD CELL (test code = 15.1 K/MM3 3.8-9.8 H WBC) RED BLOOD CELL (test code = 5.35 M/MM3 3.58-4.97 H RBC) HEMOGLOBIN (test code = HGB) 12.7 G/DL 11.2-14.9 N HEMATOCRIT (test code = HCT) 43.5 % 33.2-43.5 N MEAN CELL VOLUME (test code = 81 fL 80.7-99.1 N MCV) MEAN CELL HGB (test code = MCH) 23.7 pg 27.0-34.1 L MEAN CELL HGB CONCETRATION 29.2 % 32.2-35.7 L (test code = MCHC) RED CELL DISTRIBUTION WIDTH 16.8 % 12.1-15.2 H (test code = RDW) PLATELET COUNT (test code = 564 K/MM3 129-368 H PLT) MEAN PLATELET VOLUME (test code 9.7 fl 7.4-10.4 N = MPV) NEUTROPHIL % (test code = NT%) 71.9 % 43-75 N IMMATURE GRANULOCYTE % (test 1.2 % 0.0-2.0 N code = IG%) LYMPHOCYTE % (test code = LY%) 16.6 % 14-44 N MONOCYTE % (test code = MO%) 8.1 % 4-13 N EOSINOPHIL % (test code = EO%) 1.5 % 0-6 N BASOPHIL % (test code = BA%) 0.7 % 0-2 N NUCLEATED RBC % (test code = 0.0 % 0-1.0 N NRBC%) NEUTROPHIL # (test code = NT#) 10.89 K/mm3 2.0-7.6 H IMMATURE GRANULOCYTE # (test 0.18 x10 3/uL 0-0.03 H code = IG#) LYMPHOCYTE # (test code = LY#) 2.52 K/mm3 1.0-3.8 N MONOCYTE # (test code = MO#) 1.23 K/mm3 0.1-0.8 H EOSINOPHIL # (test code = EO#) 0.22 K/mm3 0.0-0.2 H BASOPHIL # (test code = BA#) 0.10 K/mm3 0.0-0.2 N NUCLEATED RBC # (test code = 0.00 K/mm3 0.0-0.1 N NRBC#) TROPONIN I [id number] 13:16:00 Test Item Value Reference Range Interpretation Comments TROPONIN I RAPID (test code = 0.04 NG/ML 0.00-0.05 N TROPIRAP) GLUCOSE BEDSIDE [id number] 17:02:00 Test Item Value Reference Range Interpretation Comments GLUCOSE BEDSIDE TESTING (test code 232 MG/DL 60-99 H = GLUBED) BUN [id number] 16:53:00 Test Item Value Reference Range Interpretation Comments BLOOD UREA NITROGEN 63 MG/DL 7-17 H (test code = BUN) GLOMERULAR FILTRATION 34 Report ing units: RATE (test code = GFR) ml/mi n/1.73 m2 (Modified MDRD Formula)Referen ce Range: > or = 6 0 ml/min/1.73 m2 CREATININE (test code 1.50 MG/DL 0.52-1.04 H = CREAT) ENTER RACE; UGLUCOSE BEDSIDE [id number] 11:52:00 Test Item Value Reference Range Interpretation Comments GLUCOSE BEDSIDE TESTING (test code 149 MG/DL 60-99 H = GLUBED) GLUCOSE BEDSIDE [id number] 10:27:00 Test Item Value Reference Range Interpretation Comments GLUCOSE BEDSIDE TESTING (test code 145 MG/DL 60-99 H = GLUBED) GLUCOSE BEDSIDE [id number] 21:19:00 Test Item Value Reference Range Interpretation Comments GLUCOSE BEDSIDE TESTING (test code 162 MG/DL 60-99 H = GLUBED) GLUCOSE BEDSIDE [id number] 16:42:00 Test Item Value Reference Range Interpretation Comments GLUCOSE BEDSIDE TESTING (test code 228 MG/DL 60-99 H = GLUBED) GLUCOSE BEDSIDE [id number] 11:58:00 Test Item Value Reference Range Interpretation Comments GLUCOSE BEDSIDE TESTING (test code 228 MG/DL 60-99 H = GLUBED) GLUCOSE BEDSIDE [id number] 07:45:00 Test Item Value Reference Range Interpretation Comments GLUCOSE BEDSIDE TESTING (test code 129 MG/DL 60-99 H = GLUBED) GLUCOSE BEDSIDE [id number] 20:35:00 Test Item Value Reference Range Interpretation Comments GLUCOSE BEDSIDE TESTING (test code 223 MG/DL 60-99 H = GLUBED) GLUCOSE BEDSIDE [id number] 16:27:00 Test Item Value Reference Range Interpretation Comments GLUCOSE BEDSIDE TESTING (test code 222 MG/DL 60-99 H = GLUBED) GLUCOSE BEDSIDE [id number] 13:00:00 Test Item Value Reference Range Interpretation Comments GLUCOSE BEDSIDE TESTING (test code 212 MG/DL 60-99 H = GLUBED) GLUCOSE BEDSIDE [id number] 10:50:00 Test Item Value Reference Range Interpretation Comments GLUCOSE BEDSIDE TESTING (test code 131 MG/DL 60-99 H = GLUBED) GLUCOSE BEDSIDE [id number] 10:50:00 Test Item Value Reference Range Interpretation Comments GLUCOSE BEDSIDE TESTING (test code 177 MG/DL 60-99 H = GLUBED) GLUCOSE BEDSIDE [id number] 20:29:00 Test Item Value Reference Range Interpretation Comments GLUCOSE BEDSIDE TESTING (test code 247 MG/DL 60-99 H = GLUBED) GLUCOSE BEDSIDE [id number] 16:22:00 Test Item Value Reference Range Interpretation Comments GLUCOSE BEDSIDE TESTING (test code 182 MG/DL 60-99 H = GLUBED) GLUCOSE BEDSIDE [id number] 11:20:00 Test Item Value Reference Range Interpretation Comments GLUCOSE BEDSIDE TESTING (test code 176 MG/DL 60-99 H = GLUBED) GLUCOSE BEDSIDE [id number] 20:14:00 Test Item Value Reference Range Interpretation Comments GLUCOSE BEDSIDE TESTING (test code 187 MG/DL 60-99 H = GLUBED) GLUCOSE BEDSIDE [id number] 16:20:00 Test Item Value Reference Range Interpretation Comments GLUCOSE BEDSIDE TESTING 200 MG/DL 60-99 H Noti fied Nurse~ (test code = GLUBED) GLUCOSE BEDSIDE [id number] 12:15:00 Test Item Value Reference Range Interpretation Comments GLUCOSE BEDSIDE TESTING (test code 180 MG/DL 60-99 H = GLUBED) GLUCOSE BEDSIDE [id number] 10:59:00 Test Item Value Reference Range Interpretation Comments GLUCOSE BEDSIDE TESTING (test code 230 MG/DL 60-99 H = GLUBED) GLUCOSE BEDSIDE [id number] 10:58:00 Test Item Value Reference Range Interpretation Comments GLUCOSE BEDSIDE TESTING (test code 226 MG/DL 60-99 H = GLUBED) GLUCOSE BEDSIDE [id number] 07:20:00 Test Item Value Reference Range Interpretation Comments GLUCOSE BEDSIDE TESTING (test code 146 MG/DL 60-99 H = GLUBED) GLUCOSE BEDSIDE [id number] 20:40:00 Test Item Value Reference Range Interpretation Comments GLUCOSE BEDSIDE TESTING (test code 214 MG/DL 60-99 H = GLUBED) GLUCOSE BEDSIDE [id number] 17:09:00 Test Item Value Reference Range Interpretation Comments GLUCOSE BEDSIDE TESTING (test code 236 MG/DL 60-99 H = GLUBED) GLUCOSE BEDSIDE [id number] 12:08:00 Test Item Value Reference Range Interpretation Comments GLUCOSE BEDSIDE TESTING (test code 161 MG/DL 60-99 H = GLUBED) GLUCOSE BEDSIDE [id number] 09:16:00 Test Item Value Reference Range Interpretation Comments GLUCOSE BEDSIDE TESTING (test code 138 MG/DL 60-99 H = GLUBED) GLUCOSE BEDSIDE [id number] 17:05:00 Test Item Value Reference Range Interpretation Comments GLUCOSE BEDSIDE TESTING (test code 245 MG/DL 60-99 H = GLUBED) GLUCOSE BEDSIDE [id number] 12:32:00 Test Item Value Reference Range Interpretation Comments GLUCOSE BEDSIDE TESTING (test code 131 MG/DL 60-99 H = GLUBED) GLUCOSE BEDSIDE [id number] 07:29:00 Test Item Value Reference Range Interpretation Comments GLUCOSE BEDSIDE TESTING (test code 134 MG/DL 60-99 H = GLUBED) GLUCOSE BEDSIDE [id number] 02:24:00 Test Item Value Reference Range Interpretation Comments GLUCOSE BEDSIDE TESTING (test code 149 MG/DL 60-99 H = GLUBED) GLUCOSE BEDSIDE [id number] 16:14:00 Test Item Value Reference Range Interpretation Comments GLUCOSE BEDSIDE TESTING 186 MG/DL 60-99 H Noti fied Nurse~ (test code = GLUBED) GLUCOSE BEDSIDE [id number] 12:52:00 Test Item Value Reference Range Interpretation Comments GLUCOSE BEDSIDE TESTING (test code 160 MG/DL 60-99 H = GLUBED) GLUCOSE BEDSIDE [id number] 07:30:00 Test Item Value Reference Range Interpretation Comments GLUCOSE BEDSIDE TESTING (test code 142 MG/DL 60-99 H = GLUBED) COMPREHENSIVE METABOLIC [id number] 06:56:00 Test Item Value Reference Range Interpretation Comments SODIUM (test code = NA) 136 MMOL/L 137-145 L POTASSIUM (test code = 4.2 MMOL/L 3.5-5.1 N K) CHLORIDE (test code = 94 MMOL/L 98-107 L CL) CAR[place] DIOXIDE (test 33 MMOL/L 22-30 H code = CO2) ANION GAP (test code = 13 MMOL/L 14-24 L GAP) GLUCOSE (test code = 146 MG/DL 74-106 H GLU) BLOOD UREA NITROGEN 26 MG/DL 7-17 H (test code = BUN) GLOMERULAR FILTRATION 54 Report ing units: RATE (test code = GFR) ml/mi n/1.73 m2 (Modified MDRD Formula)Referen ce Range: > or = 6 0 ml/min/1.73 m2 CREATININE (test code = 1.00 MG/DL 0.52-1.04 N CREAT) TOTAL PROTEIN (test 6.7 G/DL 6.3-8.2 N code = PROT) ALBUMIN (test code = 3.8 G/DL 3.5-5.0 N ALB) CALCIUM (test code = 10.2 MG/DL 8.4-10.2 N CA) BILIRUBIN TOTAL (test 0.5 MG/DL 0.2-1.3 N code = BILT) SGOT/AST (test code = 16 UNITS/L 14-36 N AST) SGPT/ALT (test code = 17 UNITS/L 9-52 ALT) ALKALINE PHOSPHATASE 89 UNITS/L 38-126 N (test code = ALKP) [id number] 06:56:00 Test Item Value Reference Range Interpretation Comments MAGNESIUM (test code = MAG) 1.9 MG/DL 1.6-2.3 N COMPREHENSIVE METABOLIC [id number] 06:52:00 Test Item Value Reference Range Interpretation Comments SODIUM (test code = NA) 136 MMOL/L 137-145 L POTASSIUM (test code = K) 4.2 MMOL/L 3.5-5.1 N CHLORIDE (test code = CL) 94 MMOL/L 98-107 L CARBON DIOXIDE (test code = CO2) MMOL/L 22-30 GLUCOSE (test code = GLU) MG/DL 74-106 BLOOD UREA NITROGEN (test code = MG/DL 7-17 BUN) GLOMERULAR FILTRATION RATE (test code = GFR) CREATININE (test code = CREAT) MG/DL 0.52-1.04 TOTAL PROTEIN (test code = PROT) G/DL 6.3-8.2 ALBUMIN (test code = ALB) 3.8 G/DL 3.5-5.0 N CALCIUM (test code = CA) MG/DL 8.7-9.7 BILIRUBIN TOTAL (test code = BILT) MG/DL 0.2-1.3 SGOT/AST (test code = AST) UNITS/L 15-37 SGPT/ALT (test code = ALT) UNITS/L 9-52 ALKALINE PHOSPHATASE (test code = UNITS/L 38-126 ALKP) [id number] 06:52:00 Test Item Value Reference Range Interpretation Comments MAGNESIUM (test code = MAG) MG/DL 1.6-2.3 COMPREHENSIVE METABOLIC [id number] 06:51:00 Test Item Value Reference Range Interpretation Comments SODIUM (test code = NA) MMOL/L 137-145 POTASSIUM (test code = K) MMOL/L 3.5-5.1 CHLORIDE (test code = CL) 94 MMOL/L 98-107 L CARBON DIOXIDE (test code = CO2) MMOL/L 22-30 GLUCOSE (test code = GLU) MG/DL 74-106 BLOOD UREA NITROGEN (test code = MG/DL 7-17 BUN) GLOMERULAR FILTRATION RATE (test code = GFR) CREATININE (test code = CREAT) MG/DL 0.52-1.04 TOTAL PROTEIN (test code = PROT) G/DL 6.3-8.2 ALBUMIN (test code = ALB) 3.8 G/DL 3.5-5.0 N CALCIUM (test code = CA) MG/DL 8.7-9.7 BILIRUBIN TOTAL (test code = BILT) MG/DL 0.2-1.3 SGOT/AST (test code = AST) UNITS/L 15-37 SGPT/ALT (test code = ALT) UNITS/L 9-52 ALKALINE PHOSPHATASE (test code = UNITS/L 38-126 ALKP) [id number] 06:51:00 Test Item Value Reference Range Interpretation Comments MAGNESIUM (test code = MAG) MG/DL 1.6-2.3 CBC W/AUTO [id number] 06:25:00 Test Item Value Reference Range Interpretation Comments WHITE BLOOD CELL (test code = 13.0 K/MM3 3.8-9.8 H WBC) RED BLOOD CELL (test code = 4.54 M/MM3 3.58-4.97 N RBC) HEMOGLOBIN (test code = HGB) 11.0 G/DL 11.2-14.9 L HEMATOCRIT (test code = HCT) 36.9 % 33.2-43.5 N MEAN CELL VOLUME (test code = 81 fL 80.7-99.1 N MCV) MEAN CELL HGB (test code = MCH) 24.2 pg 27.0-34.1 L MEAN CELL HGB CONCETRATION 29.8 % 32.2-35.7 L (test code = MCHC) RED CELL DISTRIBUTION WIDTH 16.2 % 12.1-15.2 H (test code = RDW) PLATELET COUNT (test code = 406 K/MM3 129-368 H PLT) MEAN PLATELET VOLUME (test code 10.6 fl 7.4-10.4 H = MPV) NEUTROPHIL % (test code = NT%) 70.3 % 43-75 N IMMATURE GRANULOCYTE % (test 0.8 % 0.0-2.0 N code = IG%) LYMPHOCYTE % (test code = LY%) 17.4 % 14-44 N MONOCYTE % (test code = MO%) 8.1 % 4-13 N EOSINOPHIL % (test code = EO%) 2.7 % 0-6 N BASOPHIL % (test code = BA%) 0.7 % 0-2 N NUCLEATED RBC % (test code = 0.0 % 0-1.0 N NRBC%) NEUTROPHIL # (test code = NT#) 9.17 K/mm3 2.0-7.6 H IMMATURE GRANULOCYTE # (test 0.10 x10 3/uL 0-0.03 H code = IG#) LYMPHOCYTE # (test code = LY#) 2.27 K/mm3 1.0-3.8 N MONOCYTE # (test code = MO#) 1.05 K/mm3 0.1-0.8 H EOSINOPHIL # (test code = EO#) 0.35 K/mm3 0.0-0.2 H BASOPHIL # (test code = BA#) 0.09 K/mm3 0.0-0.2 N NUCLEATED RBC # (test code = 0.00 K/mm3 0.0-0.1 N NRBC#) GLUCOSE BEDSIDE [id number] 19:59:00 Test Item Value Reference Range Interpretation Comments GLUCOSE BEDSIDE TESTING 184 MG/DL 60-99 H Noti fied Nurse~ (test code = GLUBED) GLUCOSE BEDSIDE [id number] 16:28:00 Test Item Value Reference Range Interpretation Comments GLUCOSE BEDSIDE TESTING 245 MG/DL 60-99 H Noti fied Nurse~ (test code = GLUBED) GLUCOSE BEDSIDE [id number] 13:02:00 Test Item Value Reference Range Interpretation Comments GLUCOSE BEDSIDE TESTING (test code 204 MG/DL 60-99 H = GLUBED) GLUCOSE BEDSIDE [id number] 07:00:00 Test Item Value Reference Range Interpretation Comments GLUCOSE BEDSIDE TESTING (test code 151 MG/DL 60-99 H = GLUBED) GLUCOSE BEDSIDE [id number] 06:33:00 Test Item Value Reference Range Interpretation Comments GLUCOSE BEDSIDE TESTING 236 MG/DL 60-99 H Noti fied Nurse~ (test code = GLUBED) GLUCOSE BEDSIDE [id number] 12:07:00 Test Item Value Reference Range Interpretation Comments GLUCOSE BEDSIDE TESTING (test code 167 MG/DL 60-99 H = GLUBED) GLUCOSE BEDSIDE [id number] 08:20:00 Test Item Value Reference Range Interpretation Comments GLUCOSE BEDSIDE TESTING (test code 140 MG/DL 60-99 H = GLUBED) BASIC METABOLIC [id number] 06:11:00 Test Item Value Reference Range Interpretation Comments SODIUM (test code = 134 MMOL/L 137-145 L NA) POTASSIUM (test code = 4.0 MMOL/L 3.5-5.1 N K) CHLORIDE (test code = 99 MMOL/L 98-107 N CL) CARBON DIOXIDE (test 28 MMOL/L 22-30 N code = CO2) ANION GAP (test code = 11 MMOL/L 14-24 L GAP) GLUCOSE (test code = MG/DL 74-106 GLU) BLOOD UREA NITROGEN 18 MG/DL 7-17 H (test code = BUN) GLOMERULAR FILTRATION > 60 Report ing units: RATE (test code = GFR) ml/mi n/1.73 m2 (Modified MDRD Formula)Referen ce Range: > or = 6 0 ml/min/1.73 m2 CREATININE (test code 0.80 MG/DL 0.52-1.04 N = CREAT) CALCIUM (test code = MG/DL 8.7-9.7 CA) BASIC METABOLIC [id number] 06:11:00 Test Item Value Reference Range Interpretation Comments SODIUM (test code = 134 MMOL/L 137-145 L NA) POTASSIUM (test code = 4.0 MMOL/L 3.5-5.1 N K) CHLORIDE (test code = 99 MMOL/L 98-107 N CL) CARBON DIOXIDE (test 28 MMOL/L 22-30 N code = CO2) ANION GAP (test code = 11 MMOL/L 14-24 L GAP) GLUCOSE (test code = 166 MG/DL 74-106 H GLU) BLOOD UREA NITROGEN 18 MG/DL 7-17 H (test code = BUN) GLOMERULAR FILTRATION > 60 Report ing units: RATE (test code = GFR) ml/mi n/1.73 m2 (Modified MDRD Formula)Referen ce Range: > or = 6 0 ml/min/1.73 m2 CREATININE (test code 0.80 MG/DL 0.52-1.04 N = CREAT) CALCIUM (test code = 9.5 MG/DL 8.4-10.2 N CA) BASIC METABOLIC [id number] 06:08:00 Test Item Value Reference Range Interpretation Comments SODIUM (test code = NA) 134 MMOL/L 137-145 L POTASSIUM (test code = K) 4.0 MMOL/L 3.5-5.1 N CHLORIDE (test code = CL) 99 MMOL/L 98-107 N CARBON DIOXIDE (test code = CO2) MMOL/L 22-30 GLUCOSE (test code = GLU) MG/DL 74-106 BLOOD UREA NITROGEN (test code = MG/DL 7-17 BUN) GLOMERULAR FILTRATION RATE (test code = GFR) CREATININE (test code = CREAT) MG/DL 0.52-1.04 CALCIUM (test code = CA) MG/DL 8.7-9.7 GLUCOSE BEDSIDE [id number] 20:04:00 Test Item Value Reference Range Interpretation Comments GLUCOSE BEDSIDE TESTING (test code 226 MG/DL 60-99 H = GLUBED) GLUCOSE BEDSIDE [id number] 16:25:00 Test Item Value Reference Range Interpretation Comments GLUCOSE BEDSIDE TESTING (test code 270 MG/DL 60-99 H = GLUBED) GLUCOSE BEDSIDE [id number] 13:02:00 Test Item Value Reference Range Interpretation Comments GLUCOSE BEDSIDE TESTING (test code 137 MG/DL 60-99 H = GLUBED) GLUCOSE BEDSIDE [id number] 12:09:00 Test Item Value Reference Range Interpretation Comments GLUCOSE BEDSIDE TESTING (test code 220 MG/DL 60-99 H = GLUBED) - CTA CHEST FOR [id number] 10:59:00 Patient Name: JORGE ALBERTO CEJABREA Unit No: [id number] EXAMS: CPT CODE: [id number] [place] [id number] CTA Chest with contrast Location: B2 Clinical indication: 73-year-old with PE Comparison: None Technique: Computed axial images were obtained from the thoracic inlet through the diaphragms along with the IV administration of 100 mL [id number]. 3D/MIP reconstructions of the central pulmonary arteries [...] than the left. This may be the resultof a right nodule, not well characterized due to artifact from left side ICD generator. No pneumothor ax. There is some groundglass opacification within the mid and upper lungs, nonspecific. There is some mild streaky opacification within the lung bases, likely atelectasis. Small effusions are present,right greater than left. Reflux of contrast from the right atrium into the hepatic veins is suggestive of right heart dysfunction. The gallbladder has been removed. No acute osseous abnormal normality of the chest. Impression: 1. No central pulmonary artery embolism. 2. Nonspecific mild groundglass opacities within the mid and upper lungs. This may be result of edema or an atypical infectious process. 3. Minimal pleural fluid, right greater than left. at 1059 Reported and signed by: Alf Schwarz M.D. CC: Nick Cabrera; Dexter Beard MD; Viviana Thompson MD Technologist: Ian Aguilar, RT(R)(CT)(MRI); [facility] CTDI: DLP: Trnscrpt: 07/03/2019 (1059) [email or web address] [facility] NAME: JORGE ALBERTO CEJATAVIAJEFF Robledo [address] PHYS: [email or web address] - [place] [address] : 1945 AGE: 73 SEX: F LOC: Z.365 A PHONE #: [phone] EXAM DATE: 07/03/2019 STATUS: ADM IN FAX #: [phone] RAD #: D/C DT PAGE 1 Signed Report Patient Name: BREA GILES Unit No: [id number] EXAMS: CPT CODE: [id number] [place] [address] (Continued) Orig Print D/T: S: 07/03/2019 (1102) [facility] NAME: PEPITO GILES [address] PHYS: [email or web address] [place] [address] : 1945 AGE: 73 SEX: F LOC: Z.365 A PHONE #: [phone] EXAM DATE: 07/03/2019 STATUS: ADM IN FAX #: [phone] RAD #: D/C DT PAGE 2 Signed ReportBASIC METABOLIC [id number] 06:20:00 Test Item Value Reference Range Interpretation Comments SODIUM (test code = 133 MMOL/L 137-145 L NA) POTASSIUM (test code = 4.2 MMOL/L 3.5-5.1 N K) CHLORIDE (test code = 97 MMOL/L 98-107 L CL) CARBON DIOXIDE (test 28 MMOL/L 22-30 N code = CO2) GLUCOSE (test code = 131 MG/DL 74-106 H GLU) BLOOD UREA NITROGEN 15 MG/DL 7-17 N (test code = BUN) GLOMERULAR FILTRATION > 60 Report ing units: RATE (test code = GFR) ml/mi n/1.73 m2 (Modified MDRD Formula)Referen ce Range: > or = 6 0 ml/min/1.73 m2 CREATININE (test code 0.70 MG/DL 0.52-1.04 N = CREAT) CALCIUM (test code = 9.6 MG/DL 8.4-10.2 N CA) CBC W/AUTO [id number] 05:42:00 Test Item Value Reference Range Interpretation Comments WHITE BLOOD CELL (test code = 10.6 K/MM3 3.8-9.8 H WBC) RED BLOOD CELL (test code = 4.58 M/MM3 3.58-4.97 N RBC) HEMOGLOBIN (test code = HGB) 10.9 G/DL 11.2-14.9 L HEMATOCRIT (test code = HCT) 38.8 % 33.2-43.5 N MEAN CELL VOLUME (test code = 85 fL 80.7-99.1 N MCV) MEAN CELL HGB (test code = MCH) 23.8 pg 27.0-34.1 L MEAN CELL HGB CONCETRATION 28.1 % 32.2-35.7 L (test code = MCHC) RED CELL DISTRIBUTION WIDTH 16.2 % 12.1-15.2 H (test code = RDW) PLATELET COUNT (test code = 346 K/MM3 129-368 N PLT) MEAN PLATELET VOLUME (test code 10.4 fl 7.4-10.4 N = MPV) NEUTROPHIL % (test code = NT%) 74.9 % 43-75 N IMMATURE GRANULOCYTE % (test 0.8 % 0.0-2.0 N code = IG%) LYMPHOCYTE % (test code = LY%) 11.8 % 14-44 L MONOCYTE % (test code = MO%) 9.0 % 4-13 N EOSINOPHIL % (test code = EO%) 2.8 % 0-6 N BASOPHIL % (test code = BA%) 0.7 % 0-2 N NUCLEATED RBC % (test code = 0.0 % 0-1.0 N NRBC%) NEUTROPHIL # (test code = NT#) 7.91 K/mm3 2.0-7.6 H IMMATURE GRANULOCYTE # (test 0.08 x10 3/uL 0-0.03 H code = IG#) LYMPHOCYTE # (test code = LY#) 1.24 K/mm3 1.0-3.8 N MONOCYTE # (test code = MO#) 0.95 K/mm3 0.1-0.8 H EOSINOPHIL # (test code = EO#) 0.30 K/mm3 0.0-0.2 H BASOPHIL # (test code = BA#) 0.07 K/mm3 0.0-0.2 N NUCLEATED RBC # (test code = 0.00 K/mm3 0.0-0.1 N NRBC#) DIFFERENTIAL [id number] 05:42:00 Test Item Value Reference Range Interpretation Comments RBC MORPHOLOGY REQUIRED (test code = RBCM) PLATELET ESTIMATE (test code = PLTEST) ADEQUATE PLATELET MORPHOLOGY (test code = NORMAL PLTMORPH) CBC W/AUTO [id number] 05:42:00 Test Item Value Reference Range Interpretation Comments WHITE BLOOD CELL (test code = 10.6 K/MM3 3.8-9.8 H WBC) RED BLOOD CELL (test code = 4.58 M/MM3 3.58-4.97 N RBC) HEMOGLOBIN (test code = HGB) 10.9 G/DL 11.2-14.9 L HEMATOCRIT (test code = HCT) 38.8 % 33.2-43.5 N MEAN CELL VOLUME (test code = 85 fL 80.7-99.1 N MCV) MEAN CELL HGB (test code = MCH) 23.8 pg 27.0-34.1 L MEAN CELL HGB CONCETRATION 28.1 % 32.2-35.7 L (test code = MCHC) RED CELL DISTRIBUTION WIDTH 16.2 % 12.1-15.2 H (test code = RDW) PLATELET COUNT (test code = 346 K/MM3 129-368 N PLT) MEAN PLATELET VOLUME (test code 10.4 fl 7.4-10.4 N = MPV) NEUTROPHIL % (test code = NT%) 74.9 % 43-75 N IMMATURE GRANULOCYTE % (test 0.8 % 0.0-2.0 N code = IG%) LYMPHOCYTE % (test code = LY%) 11.8 % 14-44 L MONOCYTE % (test code = MO%) 9.0 % 4-13 N EOSINOPHIL % (test code = EO%) 2.8 % 0-6 N BASOPHIL % (test code = BA%) 0.7 % 0-2 N NUCLEATED RBC % (test code = 0.0 % 0-1.0 N NRBC%) NEUTROPHIL # (test code = NT#) 7.91 K/mm3 2.0-7.6 H IMMATURE GRANULOCYTE # (test 0.08 x10 3/uL 0-0.03 H code = IG#) LYMPHOCYTE # (test code = LY#) 1.24 K/mm3 1.0-3.8 N MONOCYTE # (test code = MO#) 0.95 K/mm3 0.1-0.8 H EOSINOPHIL # (test code = EO#) 0.30 K/mm3 0.0-0.2 H BASOPHIL # (test code = BA#) 0.07 K/mm3 0.0-0.2 N NUCLEATED RBC # (test code = 0.00 K/mm3 0.0-0.1 N NRBC#) DIFFERENTIAL [id number] 05:42:00 Test Item Value Reference Range Interpretation Comments RBC MORPHOLOGY REQUIRED (test code = RBCM) PLATELET ESTIMATE (test code = PLTEST) ADEQUATE PLATELET MORPHOLOGY (test code = NORMAL PLTMORPH) GLUCOSE BEDSIDE [id number] 20:44:00 Test Item Value Reference Range Interpretation Comments GLUCOSE BEDSIDE TESTING (test code 191 MG/DL 60-99 H = GLUBED) GLUCOSE BEDSIDE [id number] 19:09:00 Test Item Value Reference Range Interpretation Comments GLUCOSE BEDSIDE TESTING (test code 132 MG/DL 60-99 H = GLUBED) - XR CHEST [id number] 18:49:00 Patient Name: BREA GILES Unit No: [id number] EXAMS: CPT CODE: [id number] XR CHEST 1V 75547 LOCATION CODE: H 31 CHEST AP HISTORY: Follow-up status post ICD placement COMPARISON: Chest radiog raph from 06/29/2019 FINDINGS: Dual-lead AICD has been placed with [...] Moderate central pulmonary vascular congestion appearing stable toslightly improved at 1849 * * Reported and signed by: Guerline Hamlin MD CC: Nick Cabrera; Alexandr Hawkins; Viviana Thompson MD Technologist: Pavithra Crane RT(R) Transcrpt Date/Tm/Trnsp: 07/02/2019 (1848) [email or web address] Orig Print D/T: S: 07/02/2019 (1851) [facility] NAME: BREA GILES [address] PHYS: [place] [address] : 1945 AGE: 73 SEX: F LOC: ZBelén A PHONE#: [phone] EXAM DATE: 07/02/2019 STATUS: ADM IN FAX #: [phone] RADIOLOGY NO: PAGE 1 Signed [id number] 18:23:00 Test Item Value Reference Range Interpretation Comments ACT-ISTAT (test code = ACTI) 103 SEC 74-137 N GLUCOSE BEDSIDE [id number] 07:48:00 Test Item Value Reference Range Interpretation Comments GLUCOSE BEDSIDE TESTING (test code 160 MG/DL 60-99 H = GLUBED) GLUCOSE BEDSIDE [id number] 07:16:00 Test Item Value Reference Range Interpretation Comments GLUCOSE BEDSIDE TESTING (test code 134 MG/DL 60-99 H = GLUBED) GLUCOSE BEDSIDE [id number] 20:51:00 Test Item Value Reference Range Interpretation Comments GLUCOSE BEDSIDE TESTING (test code 142 MG/DL 60-99 H = GLUBED) GLUCOSE BEDSIDE [id number] 16:16:00 Test Item Value Reference Range Interpretation Comments GLUCOSE BEDSIDE TESTING (test code 156 MG/DL 60-99 H = GLUBED) GLUCOSE BEDSIDE [id number] 16:16:00 Test Item Value Reference Range Interpretation Comments GLUCOSE BEDSIDE TESTING (test code 184 MG/DL 60-99 H = GLUBED) BASIC METABOLIC [id number] 13:13:00 Test Item Value Reference Range Interpretation Comments SODIUM (test code = 137 MMOL/L 137-145 N NA) POTASSIUM (test code = 4.3 MMOL/L 3.5-5.1 N K) CHLORIDE (test code = 102 MMOL/L 98-107 N CL) CARBON DIOXIDE (test 30 MMOL/L 22-30 N code = CO2) ANION GAP (test code = 9 MMOL/L 14-24 L GAP) GLUCOSE (test code = 172 MG/DL 74-106 H GLU) BLOOD UREA NITROGEN 19 MG/DL 7-17 H (test code = BUN) GLOMERULAR FILTRATION > 60 Report ing units: RATE (test code = GFR) ml/mi n/1.73 m2 (Modified MDRD Formula)Referen ce Range: > or = 6 0 ml/min/1.73 m2 CREATININE (test code 0.70 MG/DL 0.52-1.04 N = CREAT) CALCIUM (test code = 9.3 MG/DL 8.4-10.2 N CA) BASIC METABOLIC [id number] 13:02:00 Test Item Value Reference Range Interpretation Comments SODIUM (test code = 137 MMOL/L 137-145 N NA) POTASSIUM (test code = 4.3 MMOL/L 3.5-5.1 N K) CHLORIDE (test code = 102 MMOL/L 98-107 N CL) CARBON DIOXIDE (test MMOL/L 22-30 code = CO2) GLUCOSE (test code = MG/DL 74-106 GLU) BLOOD UREA NITROGEN MG/DL 7-17 (test code = BUN) GLOMERULAR FILTRATION > 60 Report ing units: RATE (test code = GFR) ml/mi n/1.73 m2 (Modified MDRD Formula)Referen ce Range: > or = 6 0 ml/min/1.73 m2 CREATININE (test code 0.70 MG/DL 0.52-1.04 N = CREAT) CALCIUM (test code = MG/DL 8.7-9.7 CA) BASIC METABOLIC [id number] 13:00:00 Test Item Value Reference Range Interpretation Comments SODIUM (test code = NA) 137 MMOL/L 137-145 N POTASSIUM (test code = K) 4.3 MMOL/L 3.5-5.1 N CHLORIDE (test code = CL) 102 MMOL/L 98-107 N CARBON DIOXIDE (test code = CO2) MMOL/L 22-30 GLUCOSE (test code = GLU) MG/DL 74-106 BLOOD UREA NITROGEN (test code = MG/DL 7-17 BUN) GLOMERULAR FILTRATION RATE (test code = GFR) CREATININE (test code = CREAT) MG/DL 0.52-1.04 CALCIUM (test code = CA) MG/DL 8.7-9.7 BASIC METABOLIC [id number] 12:59:00 Test Item Value Reference Range Interpretation Comments SODIUM (test code = NA) 137 MMOL/L 137-145 N POTASSIUM (test code = K) MMOL/L 3.5-5.1 CHLORIDE (test code = CL) 102 MMOL/L 98-107 N CARBON DIOXIDE (test code = CO2) MMOL/L 22-30 GLUCOSE (test code = GLU) MG/DL 74-106 BLOOD UREA NITROGEN (test code = MG/DL 7-17 BUN) GLOMERULAR FILTRATION RATE (test code = GFR) CREATININE (test code = CREAT) MG/DL 0.52-1.04 CALCIUM (test code = CA) MG/DL 8.7-9.7 GLUCOSE BEDSIDE [id number] 06:32:00 Test Item Value Reference Range Interpretation Comments GLUCOSE BEDSIDE TESTING (test code 144 MG/DL 60-99 H = GLUBED) GLUCOSE BEDSIDE [id number] 22:00:00 Test Item Value Reference Range Interpretation Comments GLUCOSE BEDSIDE TESTING (test code 154 MG/DL 60-99 H = GLUBED) GLUCOSE BEDSIDE [id number] 16:57:00 Test Item Value Reference Range Interpretation Comments GLUCOSE BEDSIDE TESTING (test code 124 MG/DL 60-99 H = GLUBED) GLUCOSE BEDSIDE [id number] 16:57:00 Test Item Value Reference Range Interpretation Comments GLUCOSE BEDSIDE TESTING (test code 189 MG/DL 60-99 H = GLUBED) GLUCOSE BEDSIDE [id number] 06:59:00 Test Item Value Reference Range Interpretation Comments GLUCOSE BEDSIDE TESTING (test code 119 MG/DL 60-99 H = GLUBED) GLUCOSE BEDSIDE [id number] 21:39:00 Test Item Value Reference Range Interpretation Comments GLUCOSE BEDSIDE TESTING (test code 172 MG/DL 60-99 H = GLUBED) GLUCOSE BEDSIDE [id number] 12:36:00 Test Item Value Reference Range Interpretation Comments GLUCOSE BEDSIDE TESTING (test code 155 MG/DL 60-99 H = GLUBED) - XR CHEST [id number] 09:12:00 Patient Name: BREA GLIES Unit No: [id number] EXAMS: CPT CODE: [id number] XR CHEST 1V 09322 EXAM: Portable chest one view. Location code:J9 HISTORY: CHF COMPARISON: 06/25/2019 Findings: The cardiac silhouette is enlarged and stable in size. Stable prominent interstitial lung markings. No large pleural effusion or pneumothorax. The bones are intact. IMPRESSION: Stable findings of CHF. at 0912 Reported and signed by: Gil Pope M.D. CC: Nick Cabrera; Alexandr Hawkins; Viviana Thompson MD Technologist: Yana Cleveland RT (R) Transcrpt Date/Tm/Trnsp: 06/29/2019 (0912) [email or web address] Orig Print D/T: S: 06/29/2019 (0915) [facility] NAME: BREA GILES [address] PHYS: [place] [address] : 1945 AGE: 73 SEX: F LOC: Ferdinand A PHONE #: [phone] EXAM DATE: 06/29/2019 STATUS: ADM IN FAX #: [phone] RADIOLOGY NO: PAGE 1 Signed ReportBASIC METABOLIC [id number] 07:40:00 Test Item Value Reference Range Interpretation Comments SODIUM (test code = 136 MMOL/L 137-145 L NA) POTASSIUM (test code = 3.4 MMOL/L 3.5-5.1 L K) CHLORIDE (test code = 99 MMOL/L 98-107 N CL) CARBON DIOXIDE (test 32 MMOL/L 22-30 H code = CO2) ANION GAP (test code = 8 MMOL/L 14-24 L GAP) GLUCOSE (test code = 163 MG/DL 74-106 H GLU) BLOOD UREA NITROGEN 23 MG/DL 7-17 H (test code = BUN) GLOMERULAR FILTRATION > 60 Report ing units: RATE (test code = GFR) ml/mi n/1.73 m2 (Modified MDRD Formula)Referen ce Range: > or = 6 0 ml/min/1.73 m2 CREATININE (test code 0.80 MG/DL 0.52-1.04 N = CREAT) CALCIUM (test code = 8.8 MG/DL 8.4-10.2 N CA) BASIC METABOLIC [id number] 07:27:00 Test Item Value Reference Range Interpretation Comments SODIUM (test code = NA) 136 MMOL/L 137-145 L POTASSIUM (test code = K) 3.4 MMOL/L 3.5-5.1 L CHLORIDE (test code = CL) 99 MMOL/L 98-107 N CARBON DIOXIDE (test code = CO2) MMOL/L 22-30 GLUCOSE (test code = GLU) MG/DL 74-106 BLOOD UREA NITROGEN (test code = MG/DL 7-17 BUN) GLOMERULAR FILTRATION RATE (test code = GFR) CREATININE (test code = CREAT) MG/DL 0.52-1.04 CALCIUM (test code = CA) MG/DL 8.7-9.7 CBC W/AUTO [id number] 07:12:00 Test Item Value Reference Range Interpretation Comments WHITE BLOOD CELL (test code = 10.8 K/MM3 3.8-9.8 H WBC) RED BLOOD CELL (test code = 4.46 M/MM3 3.58-4.97 N RBC) HEMOGLOBIN (test code = HGB) 10.9 G/DL 11.2-14.9 L HEMATOCRIT (test code = HCT) 38.0 % 33.2-43.5 N MEAN CELL VOLUME (test code = 85 fL 80.7-99.1 N MCV) MEAN CELL HGB (test code = MCH) 24.4 pg 27.0-34.1 L MEAN CELL HGB CONCETRATION 28.7 % 32.2-35.7 L (test code = MCHC) RED CELL DISTRIBUTION WIDTH 15.9 % 12.1-15.2 H (test code = RDW) PLATELET COUNT (test code = 383 K/MM3 129-368 H PLT) MEAN PLATELET VOLUME (test code 10.2 fl 7.4-10.4 N = MPV) NEUTROPHIL % (test code = NT%) 75.5 % 43-75 H IMMATURE GRANULOCYTE % (test 0.9 % 0.0-2.0 N code = IG%) LYMPHOCYTE % (test code = LY%) 13.2 % 14-44 L MONOCYTE % (test code = MO%) 7.8 % 4-13 N EOSINOPHIL % (test code = EO%) 2.1 % 0-6 N BASOPHIL % (test code = BA%) 0.5 % 0-2 N NUCLEATED RBC % (test code = 0.0 % 0-1.0 N NRBC%) NEUTROPHIL # (test code = NT#) 8.11 K/mm3 2.0-7.6 H IMMATURE GRANULOCYTE # (test 0.10 x10 3/uL 0-0.03 H code = IG#) LYMPHOCYTE # (test code = LY#) 1.42 K/mm3 1.0-3.8 N MONOCYTE # (test code = MO#) 0.84 K/mm3 0.1-0.8 H EOSINOPHIL # (test code = EO#) 0.23 K/mm3 0.0-0.2 H BASOPHIL # (test code = BA#) 0.05 K/mm3 0.0-0.2 N NUCLEATED RBC # (test code = 0.00 K/mm3 0.0-0.1 N NRBC#) DIFFERENTIAL [id number] 07:12:00 Test Item Value Reference Range Interpretation Comments RBC MORPHOLOGY REQUIRED (test code = RBCM) PLATELET ESTIMATE (test code = PLTEST) ADEQUATE PLATELET MORPHOLOGY (test code = NORMAL PLTMORPH) CBC W/AUTO [id number] 07:12:00 Test Item Value Reference Range Interpretation Comments WHITE BLOOD CELL (test code = 10.8 K/MM3 3.8-9.8 H WBC) RED BLOOD CELL (test code = 4.46 M/MM3 3.58-4.97 N RBC) HEMOGLOBIN (test code = HGB) 10.9 G/DL 11.2-14.9 L HEMATOCRIT (test code = HCT) 38.0 % 33.2-43.5 N MEAN CELL VOLUME (test code = 85 fL 80.7-99.1 N MCV) MEAN CELL HGB (test code = MCH) 24.4 pg 27.0-34.1 L MEAN CELL HGB CONCETRATION 28.7 % 32.2-35.7 L (test code = MCHC) RED CELL DISTRIBUTION WIDTH 15.9 % 12.1-15.2 H (test code = RDW) PLATELET COUNT (test code = 383 K/MM3 129-368 H PLT) MEAN PLATELET VOLUME (test code 10.2 fl 7.4-10.4 N = MPV) NEUTROPHIL % (test code = NT%) 75.5 % 43-75 H IMMATURE GRANULOCYTE % (test 0.9 % 0.0-2.0 N code = IG%) LYMPHOCYTE % (test code = LY%) 13.2 % 14-44 L MONOCYTE % (test code = MO%) 7.8 % 4-13 N EOSINOPHIL % (test code = EO%) 2.1 % 0-6 N BASOPHIL % (test code = BA%) 0.5 % 0-2 N NUCLEATED RBC % (test code = 0.0 % 0-1.0 N NRBC%) NEUTROPHIL # (test code = NT#) 8.11 K/mm3 2.0-7.6 H IMMATURE GRANULOCYTE # (test 0.10 x10 3/uL 0-0.03 H code = IG#) LYMPHOCYTE # (test code = LY#) 1.42 K/mm3 1.0-3.8 N MONOCYTE # (test code = MO#) 0.84 K/mm3 0.1-0.8 H EOSINOPHIL # (test code = EO#) 0.23 K/mm3 0.0-0.2 H BASOPHIL # (test code = BA#) 0.05 K/mm3 0.0-0.2 N NUCLEATED RBC # (test code = 0.00 K/mm3 0.0-0.1 N NRBC#) DIFFERENTIAL [id number] 07:12:00 Test Item Value Reference Range Interpretation Comments RBC MORPHOLOGY REQUIRED (test code = RBCM) PLATELET ESTIMATE (test code = PLTEST) ADEQUATE PLATELET MORPHOLOGY (test code = NORMAL PLTMORPH) GLUCOSE BEDSIDE [id number] 06:19:00 Test Item Value Reference Range Interpretation Comments GLUCOSE BEDSIDE TESTING (test code 129 MG/DL 60-99 H = GLUBED) GLUCOSE BEDSIDE [id number] 20:30:00 Test Item Value Reference Range Interpretation Comments GLUCOSE BEDSIDE TESTING (test code 130 MG/DL 60-99 H = GLUBED) GLUCOSE BEDSIDE [id number] 18:01:00 Test Item Value Reference Range Interpretation Comments GLUCOSE BEDSIDE TESTING (test code 150 MG/DL 60-99 H = GLUBED) GLUCOSE BEDSIDE [id number] 13:32:00 Test Item Value Reference Range Interpretation Comments GLUCOSE BEDSIDE TESTING (test code 147 MG/DL 60-99 H = GLUBED) GLUCOSE BEDSIDE [id number] 07:06:00 Test Item Value Reference Range Interpretation Comments GLUCOSE BEDSIDE TESTING (test code 154 MG/DL 60-99 H = GLUBED) GLUCOSE BEDSIDE [id number] 20:58:00 Test Item Value Reference Range Interpretation Comments GLUCOSE BEDSIDE TESTING (test code 198 MG/DL 60-99 H = GLUBED) GLUCOSE BEDSIDE [id number] 16:23:00 Test Item Value Reference Range Interpretation Comments GLUCOSE BEDSIDE TESTING (test code 131 MG/DL 60-99 H = GLUBED) GLUCOSE BEDSIDE [id number] 14:29:00 Test Item Value Reference Range Interpretation Comments GLUCOSE BEDSIDE TESTING (test code 164 MG/DL 60-99 H = GLUBED) GLUCOSE BEDSIDE [id number] 14:29:00 Test Item Value Reference Range Interpretation Comments GLUCOSE BEDSIDE TESTING (test code 152 MG/DL 60-99 H = GLUBED) GLUCOSE BEDSIDE [id number] 14:29:00 Test Item Value Reference Range Interpretation Comments GLUCOSE BEDSIDE TESTING (test code 209 MG/DL 60-99 H = GLUBED) GLUCOSE BEDSIDE [id number] 14:29:00 Test Item Value Reference Range Interpretation Comments GLUCOSE BEDSIDE TESTING (test code 161 MG/DL 60-99 H = GLUBED) GLUCOSE BEDSIDE [id number] 06:27:00 Test Item Value Reference Range Interpretation Comments GLUCOSE BEDSIDE TESTING (test code 144 MG/DL 60-99 H = GLUBED) BASIC METABOLIC [id number] 06:25:00 Test Item Value Reference Range Interpretation Comments SODIUM (test code = 136 MMOL/L 137-145 L NA) POTASSIUM (test code = 3.5 MMOL/L 3.5-5.1 N K) CHLORIDE (test code = 99 MMOL/L 98-107 N CL) CARBON DIOXIDE (test 30 MMOL/L 22-30 N code = CO2) ANION GAP (test code = 11 MMOL/L 14-24 L GAP) GLUCOSE (test code = 149 MG/DL 74-106 H GLU) BLOOD UREA NITROGEN 32 MG/DL 7-17 H (test code = BUN) GLOMERULAR FILTRATION 54 Report ing units: RATE (test code = GFR) ml/mi n/1.73 m2 (Modified MDRD Formula)Referen ce Range: > or = 6 0 ml/min/1.73 m2 CREATININE (test code 1.00 MG/DL 0.52-1.04 N = CREAT) CALCIUM (test code = 9.0 MG/DL 8.4-10.2 N CA) BASIC METABOLIC [id number] 06:19:00 Test Item Value Reference Range Interpretation Comments SODIUM (test code = 136 MMOL/L 137-145 L NA) POTASSIUM (test code = 3.5 MMOL/L 3.5-5.1 N K) CHLORIDE (test code = 99 MMOL/L 98-107 N CL) CARBON DIOXIDE (test MMOL/L 22-30 code = CO2) GLUCOSE (test code = MG/DL 74-106 GLU) BLOOD UREA NITROGEN MG/DL 7-17 (test code = BUN) GLOMERULAR FILTRATION 54 Report ing units: RATE (test code = GFR) ml/mi n/1.73 m2 (Modified MDRD Formula)Referen ce Range: > or = 6 0 ml/min/1.73 m2 CREATININE (test code 1.00 MG/DL 0.52-1.04 N = CREAT) CALCIUM (test code = MG/DL 8.7-9.7 CA) BASIC METABOLIC [id number] 06:17:00 Test Item Value Reference Range Interpretation Comments SODIUM (test code = NA) 136 MMOL/L 137-145 L POTASSIUM (test code = K) 3.5 MMOL/L 3.5-5.1 N CHLORIDE (test code = CL) 99 MMOL/L 98-107 N CARBON DIOXIDE (test code = CO2) MMOL/L 22-30 GLUCOSE (test code = GLU) MG/DL 74-106 BLOOD UREA NITROGEN (test code = MG/DL 7-17 BUN) GLOMERULAR FILTRATION RATE (test code = GFR) CREATININE (test code = CREAT) MG/DL 0.52-1.04 CALCIUM (test code = CA) MG/DL 8.7-9.7 GLUCOSE BEDSIDE [id number] 21:09:00 Test Item Value Reference Range Interpretation Comments GLUCOSE BEDSIDE TESTING (test code 236 MG/DL 60-99 H = GLUBED) BASIC METABOLIC [id number] 06:05:00 Test Item Value Reference Range Interpretation Comments SODIUM (test code = 135 MMOL/L 137-145 L NA) POTASSIUM (test code = 3.8 MMOL/L 3.5-5.1 N K) CHLORIDE (test code = 101 MMOL/L 98-107 N CL) CARBON DIOXIDE (test 25 MMOL/L 22-30 N code = CO2) ANION GAP (test code = 13 MMOL/L 14-24 L GAP) GLUCOSE (test code = 156 MG/DL 74-106 H GLU) BLOOD UREA NITROGEN 38 MG/DL 7-17 H (test code = BUN) GLOMERULAR FILTRATION 49 Report ing units: RATE (test code = GFR) ml/mi n/1.73 m2 (Modified MDRD Formula)Referen ce Range: > or = 6 0 ml/min/1.73 m2 CREATININE (test code 1.10 MG/DL 0.52-1.04 H = CREAT) CALCIUM (test code = 8.9 MG/DL 8.4-10.2 N CA) BASIC METABOLIC [id number] 05:46:00 Test Item Value Reference Range Interpretation Comments SODIUM (test code = NA) 135 MMOL/L 137-145 L POTASSIUM (test code = K) 3.8 MMOL/L 3.5-5.1 N CHLORIDE (test code = CL) 101 MMOL/L 98-107 N CARBON DIOXIDE (test code = CO2) MMOL/L 22-30 GLUCOSE (test code = GLU) MG/DL 74-106 BLOOD UREA NITROGEN (test code = MG/DL 7-17 BUN) GLOMERULAR FILTRATION RATE (test code = GFR) CREATININE (test code = CREAT) MG/DL 0.52-1.04 CALCIUM (test code = CA) MG/DL 8.7-9.7 BASIC METABOLIC [id number] 05:45:00 Test Item Value Reference Range Interpretation Comments SODIUM (test code = NA) 135 MMOL/L 137-145 L POTASSIUM (test code = K) MMOL/L 3.5-5.1 CHLORIDE (test code = CL) 101 MMOL/L 98-107 N CARBON DIOXIDE (test code = CO2) MMOL/L 22-30 GLUCOSE (test code = GLU) MG/DL 74-106 BLOOD UREA NITROGEN (test code = MG/DL 7-17 BUN) GLOMERULAR FILTRATION RATE (test code = GFR) CREATININE (test code = CREAT) MG/DL 0.52-1.04 CALCIUM (test code = CA) MG/DL 8.7-9.7 CBC W/AUTO [id number] 05:24:00 Test Item Value Reference Range Interpretation Comments WHITE BLOOD CELL (test code = 11.1 K/MM3 3.8-9.8 H WBC) RED BLOOD CELL (test code = 4.48 M/MM3 3.58-4.97 N RBC) HEMOGLOBIN (test code = HGB) 11.0 G/DL 11.2-14.9 L HEMATOCRIT (test code = HCT) 37.5 % 33.2-43.5 N MEAN CELL VOLUME (test code = 84 fL 80.7-99.1 N MCV) MEAN CELL HGB (test code = MCH) 24.6 pg 27.0-34.1 L MEAN CELL HGB CONCETRATION 29.3 % 32.2-35.7 L (test code = MCHC) RED CELL DISTRIBUTION WIDTH 16.2 % 12.1-15.2 H (test code = RDW) PLATELET COUNT (test code = 223 K/MM3 129-368 PLT) MEAN PLATELET VOLUME (test code 10.8 fl 7.4-10.4 H = MPV) NEUTROPHIL % (test code = NT%) 66.0 % 43-75 N IMMATURE GRANULOCYTE % (test 1.0 % 0.0-2.0 N code = IG%) LYMPHOCYTE % (test code = LY%) 17.3 % 14-44 N MONOCYTE % (test code = MO%) 11.1 % 4-13 N EOSINOPHIL % (test code = EO%) 3.8 % 0-6 N BASOPHIL % (test code = BA%) 0.8 % 0-2 N NUCLEATED RBC % (test code = 0.2 % 0-1.0 N NRBC%) NEUTROPHIL # (test code = NT#) 7.31 K/mm3 2.0-7.6 N IMMATURE GRANULOCYTE # (test 0.11 x10 3/uL 0-0.03 H code = IG#) LYMPHOCYTE # (test code = LY#) 1.92 K/mm3 1.0-3.8 N MONOCYTE # (test code = MO#) 1.23 K/mm3 0.1-0.8 H EOSINOPHIL # (test code = EO#) 0.42 K/mm3 0.0-0.2 H BASOPHIL # (test code = BA#) 0.09 K/mm3 0.0-0.2 N NUCLEATED RBC # (test code = 0.02 K/mm3 0.0-0.1 N NRBC#) CPK-MB [id number] 00:47:00 Test Item Value Reference Range Interpretation Comments CREATINE KINASE (CK) (test code = 42 UNITS/L 30-135 N CK) CKMB (test code = CKMBT) 0.93 NG/ML 0.0-5.6 N CKMB INDEX (test code = CKMBI) 2.2 % 4.0-4.4 L CPK-MB [id number] 00:45:00 Test Item Value Reference Range Interpretation Comments CREATINE KINASE (CK) (test code = 42 UNITS/L 30-135 N CK) CKMB (test code = CKMBT) NG/ML 0.0-5.6 CKMB INDEX (test code = CKMBI) % 4.0-4.4 CPK-MB [id number] 17:46:00 Test Item Value Reference Range Interpretation Comments CREATINE KINASE (CK) (test code = 41 UNITS/L 30-135 CK) CKMB (test code = CKMBT) 0.98 NG/ML 0.0-5.6 N CKMB INDEX (test code = CKMBI) 2.4 % 4.0-4.4 L GLUCOSE BEDSIDE [id number] 16:58:00 Test Item Value Reference Range Interpretation Comments GLUCOSE BEDSIDE TESTING (test code 154 MG/DL 60-99 H = GLUBED) [id number] 14:02:00 Test Item Value Reference Range Interpretation Comments TROPONIN-I (test code = TROPI) 0.091 NG/ML 0.012-0.033 H GLUCOSE BEDSIDE [id number] 11:33:00 Test Item Value Reference Range Interpretation Comments GLUCOSE BEDSIDE TESTING (test code 202 MG/DL 60-99 H = GLUBED) BASIC METABOLIC [id number] 09:27:00 Test Item Value Reference Range Interpretation Comments SODIUM (test code = 136 MMOL/L 137-145 L NA) POTASSIUM (test code = 3.8 MMOL/L 3.5-5.1 N K) CHLORIDE (test code = 99 MMOL/L 98-107 N CL) CARBON DIOXIDE (test 28 MMOL/L 22-30 N code = CO2) ANION GAP (test code = 13 MMOL/L 14-24 L GAP) GLUCOSE (test code = 147 MG/DL 74-106 H GLU) BLOOD UREA NITROGEN 22 MG/DL 7-17 H (test code = BUN) GLOMERULAR FILTRATION 54 Report ing units: RATE (test code = GFR) ml/mi n/1.73 m2 (Modified MDRD Formula)Referen ce Range: > or = 6 0 ml/min/1.73 m2 CREATININE (test code 1.00 MG/DL 0.52-1.04 N = CREAT) CALCIUM (test code = 8.9 MG/DL 8.4-10.2 N CA) [id number] 09:27:00 Test Item Value Reference Range Interpretation Comments PHOSPHOROUS (test code = PHOS) 4.2 MG/DL 2.5-4.5 N [id number] 09:27:00 Test Item Value Reference Range Interpretation Comments MAGNESIUM (test code = MAG) 2.0 MG/DL 1.6-2.3 N CPK-MB [id number] 09:27:00 Test Item Value Reference Range Interpretation Comments CREATINE KINASE (CK) (test code = 28 UNITS/L 30-135 L CK) CKMB (test code = CKMBT) 1.00 NG/ML 0.0-5.6 N CKMB INDEX (test code = CKMBI) 3.6 % 4.0-4.4 L BASIC METABOLIC [id number] 09:18:00 Test Item Value Reference Range Interpretation Comments SODIUM (test code = 136 MMOL/L 137-145 L NA) POTASSIUM (test code = 3.8 MMOL/L 3.5-5.1 N K) CHLORIDE (test code = 99 MMOL/L 98-107 N CL) CARBON DIOXIDE (test 28 MMOL/L 22-30 N code = CO2) ANION GAP (test code = 13 MMOL/L 14-24 L GAP) GLUCOSE (test code = 147 MG/DL 74-106 H GLU) BLOOD UREA NITROGEN 22 MG/DL 7-17 H (test code = BUN) GLOMERULAR FILTRATION 54 Report ing units: RATE (test code = GFR) ml/mi n/1.73 m2 (Modified MDRD Formula)Referen ce Range: > or = 6 0 ml/min/1.73 m2 CREATININE (test code 1.00 MG/DL 0.52-1.04 N = CREAT) CALCIUM (test code = 8.9 MG/DL 8.4-10.2 N CA) [id number] 09:18:00 Test Item Value Reference Range Interpretation Comments PHOSPHOROUS (test code = PHOS) 4.2 MG/DL 2.5-4.5 N [id number] 09:18:00 Test Item Value Reference Range Interpretation Comments MAGNESIUM (test code = MAG) MG/DL 1.6-2.3 CPK-MB [id number] 09:18:00 Test Item Value Reference Range Interpretation Comments CREATINE KINASE (CK) (test code = 28 UNITS/L 30-135 L CK) CKMB (test code = CKMBT) NG/ML 0.0-5.6 CKMB INDEX (test code = CKMBI) % 4.0-4.4 BASIC METABOLIC [id number] 09:18:00 Test Item Value Reference Range Interpretation Comments SODIUM (test code = 136 MMOL/L 137-145 L NA) POTASSIUM (test code = 3.8 MMOL/L 3.5-5.1 N K) CHLORIDE (test code = 99 MMOL/L 98-107 N CL) CARBON DIOXIDE (test 28 MMOL/L 22-30 N code = CO2) ANION GAP (test code = 13 MMOL/L 14-24 L GAP) GLUCOSE (test code = 147 MG/DL 74-106 H GLU) BLOOD UREA NITROGEN 22 MG/DL 7-17 H (test code = BUN) GLOMERULAR FILTRATION 54 Report ing units: RATE (test code = GFR) ml/mi n/1.73 m2 (Modified MDRD Formula)Referen ce Range: > or = 6 0 ml/min/1.73 m2 CREATININE (test code 1.00 MG/DL 0.52-1.04 N = CREAT) CALCIUM (test code = 8.9 MG/DL 8.4-10.2 N CA) [id number] 09:18:00 Test Item Value Reference Range Interpretation Comments PHOSPHOROUS (test code = PHOS) 4.2 MG/DL 2.5-4.5 N [id number] 09:18:00 Test Item Value Reference Range Interpretation Comments MAGNESIUM (test code = MAG) 2.0 MG/DL 1.6-2.3 N CPK-MB [id number] 09:18:00 Test Item Value Reference Range Interpretation Comments CREATINE KINASE (CK) (test code = 28 UNITS/L 30-135 L CK) CKMB (test code = CKMBT) NG/ML 0.0-5.6 CKMB INDEX (test code = CKMBI) % 4.0-4.4 BASIC METABOLIC [id number] 09:17:00 Test Item Value Reference Range Interpretation Comments SODIUM (test code = 136 MMOL/L 137-145 L NA) POTASSIUM (test code = 3.8 MMOL/L 3.5-5.1 N K) CHLORIDE (test code = 99 MMOL/L 98-107 N CL) CARBON DIOXIDE (test MMOL/L 22-30 code = CO2) GLUCOSE (test code = MG/DL 74-106 GLU) BLOOD UREA NITROGEN MG/DL 7-17 (test code = BUN) GLOMERULAR FILTRATION 54 Report ing units: RATE (test code = GFR) ml/mi n/1.73 m2 (Modified MDRD Formula)Referen ce Range: > or = 6 0 ml/min/1.73 m2 CREATININE (test code 1.00 MG/DL 0.52-1.04 N = CREAT) CALCIUM (test code = MG/DL 8.7-9.7 CA) [id number] 09:17:00 Test Item Value Reference Range Interpretation Comments PHOSPHOROUS (test code = PHOS) MG/DL 2.5-4.5 [id number] 09:17:00 Test Item Value Reference Range Interpretation Comments MAGNESIUM (test code = MAG) MG/DL 1.6-2.3 CPK-MB [id number] 09:17:00 Test Item Value Reference Range Interpretation Comments CREATINE KINASE (CK) (test code = UNITS/L 30-135 CK) CKMB (test code = CKMBT) NG/ML 0.0-5.6 CKMB INDEX (test code = CKMBI) % 4.0-4.4 BASIC METABOLIC [id number] 09:15:00 Test Item Value Reference Range Interpretation Comments SODIUM (test code = NA) 136 MMOL/L 137-145 L POTASSIUM (test code = K) 3.8 MMOL/L 3.5-5.1 N CHLORIDE (test code = CL) 99 MMOL/L 98-107 N CARBON DIOXIDE (test code = CO2) MMOL/L 22-30 GLUCOSE (test code = GLU) MG/DL 74-106 BLOOD UREA NITROGEN (test code = MG/DL 7-17 BUN) GLOMERULAR FILTRATION RATE (test code = GFR) CREATININE (test code = CREAT) MG/DL 0.52-1.04 CALCIUM (test code = CA) MG/DL 8.7-9.7 [id number] 09:15:00 Test Item Value Reference Range Interpretation Comments PHOSPHOROUS (test code = PHOS) MG/DL 2.5-4.5 [id number] 09:15:00 Test Item Value Reference Range Interpretation Comments MAGNESIUM (test code = MAG) MG/DL 1.6-2.3 CPK-MB [id number] 09:15:00 Test Item Value Reference Range Interpretation Comments CREATINE KINASE (CK) (test code = UNITS/L 30-135 CK) CKMB (test code = CKMBT) NG/ML 0.0-5.6 CKMB INDEX (test code = CKMBI) % 4.0-4.4 BASIC METABOLIC [id number] 09:14:00 Test Item Value Reference Range Interpretation Comments SODIUM (test code = NA) MMOL/L 137-145 POTASSIUM (test code = K) MMOL/L 3.5-5.1 CHLORIDE (test code = CL) 99 MMOL/L 98-107 N CARBON DIOXIDE (test code = CO2) MMOL/L 22-30 GLUCOSE (test code = GLU) MG/DL 74-106 BLOOD UREA NITROGEN (test code = MG/DL 7-17 BUN) GLOMERULAR FILTRATION RATE (test code = GFR) CREATININE (test code = CREAT) MG/DL 0.52-1.04 CALCIUM (test code = CA) MG/DL 8.7-9.7 [id number] 09:14:00 Test Item Value Reference Range Interpretation Comments PHOSPHOROUS (test code = PHOS) MG/DL 2.5-4.5 [id number] 09:14:00 Test Item Value Reference Range Interpretation Comments MAGNESIUM (test code = MAG) MG/DL 1.6-2.3 CPK-MB [id number] 09:14:00 Test Item Value Reference Range Interpretation Comments CREATINE KINASE (CK) (test code = UNITS/L 30-135 CK) CKMB (test code = CKMBT) NG/ML 0.0-5.6 CKMB INDEX (test code = CKMBI) % 4.0-4.4 CBC W/AUTO [id number] 08:55:00 Test Item Value Reference Range Interpretation Comments WHITE BLOOD CELL (test code = 14.4 K/MM3 3.8-9.8 H WBC) RED BLOOD CELL (test code = 4.38 M/MM3 3.58-4.97 N RBC) HEMOGLOBIN (test code = HGB) 10.6 G/DL 11.2-14.9 L HEMATOCRIT (test code = HCT) 37.1 % 33.2-43.5 N MEAN CELL VOLUME (test code = 85 fL 80.7-99.1 N MCV) MEAN CELL HGB (test code = MCH) 24.2 pg 27.0-34.1 L MEAN CELL HGB CONCETRATION 28.6 % 32.2-35.7 L (test code = MCHC) RED CELL DISTRIBUTION WIDTH 16.1 % 12.1-15.2 H (test code = RDW) PLATELET COUNT (test code = 391 K/MM3 129-368 H PLT) MEAN PLATELET VOLUME (test code 10.5 fl 7.4-10.4 H = MPV) NEUTROPHIL % (test code = NT%) 74.6 % 43-75 N IMMATURE GRANULOCYTE % (test 0.8 % 0.0-2.0 N code = IG%) LYMPHOCYTE % (test code = LY%) 13.5 % 14-44 L MONOCYTE % (test code = MO%) 8.4 % 4-13 N EOSINOPHIL % (test code = EO%) 1.9 % 0-6 N BASOPHIL % (test code = BA%) 0.8 % 0-2 N NUCLEATED RBC % (test code = 0.0 % 0-1.0 N NRBC%) NEUTROPHIL # (test code = NT#) 10.79 K/mm3 2.0-7.6 H IMMATURE GRANULOCYTE # (test 0.11 x10 3/uL 0-0.03 H code = IG#) LYMPHOCYTE # (test code = LY#) 1.95 K/mm3 1.0-3.8 N MONOCYTE # (test code = MO#) 1.21 K/mm3 0.1-0.8 H EOSINOPHIL # (test code = EO#) 0.27 K/mm3 0.0-0.2 H BASOPHIL # (test code = BA#) 0.11 K/mm3 0.0-0.2 N NUCLEATED RBC # (test code = 0.00 K/mm3 0.0-0.1 N NRBC#) DIFFERENTIAL [id number] 08:55:00 Test Item Value Reference Range Interpretation Comments RBC MORPHOLOGY REQUIRED (test code = RBCM) PLATELET ESTIMATE (test code = PLTEST) ADEQUATE PLATELET MORPHOLOGY (test code = NORMAL PLTMORPH) CBC W/AUTO [id number] 08:55:00 Test Item Value Reference Range Interpretation Comments WHITE BLOOD CELL (test code = 14.4 K/MM3 3.8-9.8 H WBC) RED BLOOD CELL (test code = 4.38 M/MM3 3.58-4.97 N RBC) HEMOGLOBIN (test code = HGB) 10.6 G/DL 11.2-14.9 L HEMATOCRIT (test code = HCT) 37.1 % 33.2-43.5 N MEAN CELL VOLUME (test code = 85 fL 80.7-99.1 N MCV) MEAN CELL HGB (test code = MCH) 24.2 pg 27.0-34.1 L MEAN CELL HGB CONCETRATION 28.6 % 32.2-35.7 L (test code = MCHC) RED CELL DISTRIBUTION WIDTH 16.1 % 12.1-15.2 H (test code = RDW) PLATELET COUNT (test code = 391 K/MM3 129-368 H PLT) MEAN PLATELET VOLUME (test code 10.5 fl 7.4-10.4 H = MPV) NEUTROPHIL % (test code = NT%) 74.6 % 43-75 N IMMATURE GRANULOCYTE % (test 0.8 % 0.0-2.0 N code = IG%) LYMPHOCYTE % (test code = LY%) 13.5 % 14-44 L MONOCYTE % (test code = MO%) 8.4 % 4-13 N EOSINOPHIL % (test code = EO%) 1.9 % 0-6 N BASOPHIL % (test code = BA%) 0.8 % 0-2 N NUCLEATED RBC % (test code = 0.0 % 0-1.0 N NRBC%) NEUTROPHIL # (test code = NT#) 10.79 K/mm3 2.0-7.6 H IMMATURE GRANULOCYTE # (test 0.11 x10 3/uL 0-0.03 H code = IG#) LYMPHOCYTE # (test code = LY#) 1.95 K/mm3 1.0-3.8 N MONOCYTE # (test code = MO#) 1.21 K/mm3 0.1-0.8 H EOSINOPHIL # (test code = EO#) 0.27 K/mm3 0.0-0.2 H BASOPHIL # (test code = BA#) 0.11 K/mm3 0.0-0.2 N NUCLEATED RBC # (test code = 0.00 K/mm3 0.0-0.1 N NRBC#) DIFFERENTIAL [id number] 08:55:00 Test Item Value Reference Range Interpretation Comments RBC MORPHOLOGY REQUIRED (test code = RBCM) PLATELET ESTIMATE (test code = PLTEST) ADEQUATE PLATELET MORPHOLOGY (test code = NORMAL PLTMORPH) - XR CHEST [id number] 08:06:00 Patient Name: BREA GILES Unit No: [id number] EXAMS: CPT CODE: [id number] XR CHEST 1V 45019 Single View Chest. Location: B2 Clinical Indication: 73-year-old with dyspnea Comparison: None Fi ndings: An AP view of the chest was obtained. The heart is enlarged. There is prominence of the central vasculature and the mid/lower lung interstitium. There may be layering pleural fluid. No pneumothorax. No acute osseous abnormal normality. Impression: Findings are most compatible with congestive heart failure and resultant edema. at 08 Reported and signed by: Alf Schwarz M.D. CC: Alexandr Hawkins; Viviana Thompson MD Technologist: Alan Pruitt, RT(R) Transcrpt Date/Tm/Trnsp: 06/25/2019 (805) [email or web address] Orig Print D/T: S: 06/25/2019 (809) [facility] NAME: BREA GILES [address] PHYS: [place] [address] : 1945 AGE: 73 SEX: F LOC: [id number].I10 A PHONE#: [phone] EXAM DATE: 06/25/2019 STATUS: ADM IN FAX #: [phone] RADIOLOGY NO: PAGE 1 SignedReportGLUCOSE BEDSIDE [id number] 08:00:00 Test Item Value Reference Range Interpretation Comments GLUCOSE BEDSIDE TESTING (test code 155 MG/DL 60-99 H = GLUBED) COMPREHENSIVE METABOLIC [id number] 07:19:00 Test Item Value Reference Range Interpretation Comments SODIUM (test code = 136 MMOL/L 137-145 L NA) POTASSIUM (test code = 3.9 MMOL/L 3.5-5.1 N K) CHLORIDE (test code = 100 MMOL/L 98-107 N CL) CARBON DIOXIDE (test 26 MMOL/L 22-30 N code = CO2) GLUCOSE (test code = 181 MG/DL 74-106 H GLU) BLOOD UREA NITROGEN 21 MG/DL 7-17 H (test code = BUN) GLOMERULAR FILTRATION 49 Report ing units: RATE (test code = GFR) ml/mi n/1.73 m2 (Modified MDRD Formula)Referen ce Range: > or = 6 0 ml/min/1.73 m2 CREATININE (test code 1.10 MG/DL 0.52-1.04 H = CREAT) TOTAL PROTEIN (test 6.0 G/DL 6.3-8.2 L code = PROT) ALBUMIN (test code = 3.4 G/DL 3.5-5.0 L ALB) CALCIUM (test code = 9.2 MG/DL 8.4-10.2 N CA) BILIRUBIN TOTAL (test 0.6 MG/DL 0.2-1.3 N code = BILT) SGOT/AST (test code = 68 UNITS/L 14-36 H AST) SGPT/ALT (test code = 66 UNITS/L 9-52 H ALT) ALKALINE PHOSPHATASE 137 UNITS/L 38-126 H (test code = ALKP) COMPREHENSIVE METABOLIC [id number] 07:18:00 Test Item Value Reference Range Interpretation Comments SODIUM (test code = NA) 136 MMOL/L 137-145 L POTASSIUM (test code = 3.9 MMOL/L 3.5-5.1 N K) CHLORIDE (test code = 100 MMOL/L 98-107 N CL) CARBON DIOXIDE (test 26 MMOL/L 22-30 N code = CO2) GLUCOSE (test code = MG/DL 74-106 GLU) BLOOD UREA NITROGEN MG/DL 7-17 (test code = BUN) GLOMERULAR FILTRATION 49 Report ing units: RATE (test code = GFR) ml/mi n/1.73 m2 (Modified MDRD Formula)Referen ce Range: > or = 6 0 ml/min/1.73 m2 CREATININE (test code = 1.10 MG/DL 0.52-1.04 H CREAT) TOTAL PROTEIN (test G/DL 6.3-8.2 code = PROT) ALBUMIN (test code = 3.4 G/DL 3.5-5.0 L ALB) CALCIUM (test code = MG/DL 8.7-9.7 CA) BILIRUBIN TOTAL (test 0.6 MG/DL 0.2-1.3 N code = BILT) SGOT/AST (test code = 68 UNITS/L 14-36 H AST) SGPT/ALT (test code = UNITS/L 9-52 ALT) ALKALINE PHOSPHATASE UNITS/L 38-126 (test code = ALKP) COMPREHENSIVE METABOLIC [id number] 07:16:00 Test Item Value Reference Range Interpretation Comments SODIUM (test code = NA) 136 MMOL/L 137-145 L POTASSIUM (test code = K) 3.9 MMOL/L 3.5-5.1 N CHLORIDE (test code = CL) 100 MMOL/L 98-107 N CARBON DIOXIDE (test code = CO2) MMOL/L 22-30 GLUCOSE (test code = GLU) MG/DL 74-106 BLOOD UREA NITROGEN (test code = MG/DL 7-17 BUN) GLOMERULAR FILTRATION RATE (test code = GFR) CREATININE (test code = CREAT) MG/DL 0.52-1.04 TOTAL PROTEIN (test code = PROT) G/DL 6.3-8.2 ALBUMIN (test code = ALB) 3.4 G/DL 3.5-5.0 L CALCIUM (test code = CA) MG/DL 8.7-9.7 BILIRUBIN TOTAL (test code = BILT) MG/DL 0.2-1.3 SGOT/AST (test code = AST) UNITS/L 15-37 SGPT/ALT (test code = ALT) UNITS/L 9-52 ALKALINE PHOSPHATASE (test code = UNITS/L 38-126 ALKP) COMPREHENSIVE METABOLIC [id number] 07:15:00 Test Item Value Reference Range Interpretation Comments SODIUM (test code = NA) MMOL/L 137-145 POTASSIUM (test code = K) MMOL/L 3.5-5.1 CHLORIDE (test code = CL) MMOL/L 98-107 CARBON DIOXIDE (test code = CO2) MMOL/L 22-30 GLUCOSE (test code = GLU) MG/DL 74-106 BLOOD UREA NITROGEN (test code = MG/DL 7-17 BUN) GLOMERULAR FILTRATION RATE (test code = GFR) CREATININE (test code = CREAT) MG/DL 0.52-1.04 TOTAL PROTEIN (test code = PROT) G/DL 6.3-8.2 ALBUMIN (test code = ALB) 3.4 G/DL 3.5-5.0 L CALCIUM (test code = CA) MG/DL 8.7-9.7 BILIRUBIN TOTAL (test code = BILT) MG/DL 0.2-1.3 SGOT/AST (test code = AST) UNITS/L 15-37 SGPT/ALT (test code = ALT) UNITS/L 9-52 ALKALINE PHOSPHATASE (test code = UNITS/L 38-126 ALKP) LIPOPROTEIN LDL [id number] 05:23:00 Test Item Value Reference Range Interpretation Comments LIPOPROTEIN LDL DIRECT 84 mg/dL 100-129 L ===== (test code = LDLDIR) ======= ==Refe rence Interval: mg/dL mmol/L--------- ------ ------ ------ --Optimal <100 <2.6Near/above optimal 100-129 2.6-3.3Borderli ne High 130-159 3.4-4.1High 160 -189 4.1-4.9Very Hig h >=190 >=4.9==== ===== This LDL result is a direct measurement.=== ====== [id number] 05:23:00 Test Item Value Reference Range Interpretation Comments TROPONIN-I (test 0.127 NG/ML 0.012-0.033 HH CALLED TO Venkat Duran icu & code = TROPI) READBACK ON AT 0500 BY Maddison Ramirez LIPOPROTEIN LDL [id number] 05:02:00 Test Item Value Reference Range Interpretation Comments LIPOPROTEIN LDL DIRECT (test code = mg/dL 100-129 LDLDIR) [id number] 05:02:00 Test Item Value Reference Range Interpretation Comments TROPONIN-I (test 0.127 NG/ML 0.012-0.033 HH CALLED TO D bronwyn O icu & code = TROPI) READBACK ON AT 0500 BY Maddison Ramirez GLUCOSE BEDSIDE [id number] 03:17:00 Test Item Value Reference Range Interpretation Comments GLUCOSE BEDSIDE TESTING (test code 177 MG/DL 60-99 H = GLUBED)
[2023-01-21] MEDS ORDERED: LORAZEPAM 0.5 MG TABLET ONE (13:28)
[2023-01-21 13:43] LABS: Absolute Lymphocytes (CBC) 1.4 K/uL (0.7-4.9); Hematocrit 41.1 % (36.0-45.0); MCV 94.4 fL (80-100); RBC Red Blood Cell Count 4.35 M/uL (3.86-4.86)
[2023-01-21 13:54] LABS: Potassium 4.3 mEq/L (3.5-5.1); Troponin High Sensitivity 42.8 pg/mL (<58.9)
--- NOTE | 2023-01-21 14:25 | RAD REPORT ---
EXAM DESCRIPTION: RAD - Chest Single View - 01/21/2023 2:01 pm CLINICAL HISTORY: SOB Chest pain. COMPARISON: Chest Pa And Lat (2 Views) dated 09/07/2021; Chest Single View dated 09/16/2019; Chest Pa And Lat (2 Views) dated 09/13/2019; Chest Single View dated 07/17/2019 FINDINGS: Portable technique limits examination quality. Extensive bilateral pulmonary opacities probably represent pulmonary edema. The heart is enlarged. No displaced fractures.Multi lead pacer/defibrillator device is present. IMPRESSION: Moderately severe CHF suspected.
--- NOTE | 2023-01-21 14:46 | RAD REPORT ---
EXAM DESCRIPTION: CT - Chest For Pe Angio - 01/21/2023 2:23 pm CLINICAL HISTORY: Chest pain. SOB COMPARISON: <Comparisons> TECHNIQUE: CT angiogram of the pulmonary arteries was performed with MIP. All CT scans are performed using dose optimization technique as appropriate and may include automated exposure control or mA/KV adjustment according to patient size. FINDINGS: No evidence of pulmonary thromboembolism. Opacification of the aorta is suboptimal for assessment. Cardiomegaly with pacer wires are present. Mild interstitial pulmonary edema. Small pleural effusions. No concerning bony finding. Small hiatal hernia. IMPRESSION: No evidence of pulmonary thromboembolism. Moderate CHF versus volume overload pattern.
[2023-01-21] MEDS ORDERED: FUROSEMIDE 40 MG/4 ML VIAL ONE (14:56)
--- NOTE | 2023-01-21 16:18 | EDPHYS ---
Physician Documentation [facility] Name: Jelly Garcia Age: 77 yrs Sex: Female : 1945 Arrival Date: 01/21/2023 Time: 13:02 Bed 15 Private MD: ED Physician Feliz Roland HPI: 01/21 13:15 This 77 yrs old Female presents to ER via EMS with complaints of Shortness Of Breath. jmm 13:15 The patient has shortness of breath at rest. This is a 77-year-old female with history jmm of CHF the presents emerged part with complaints of grossly worsening shortness of breath over the past month. Patient states she is run out of her medication. She had difficulty moving without being severely short of breath. Denies fever.. Historical: - Allergies: 13:12 No Known Allergies; kc6 - PMHx: 13:12 Atrial Fib; Diabetes - NIDDM; Fibromyalgia; Hypertension; Temporal Arteritis; kc6 - Immunization history:: Client reports having NOT received the Covid vaccine. Flu vaccine is not up to date. - Social history:: Smoking status: Patient denies any tobacco usage or history of. ROS: 13:15 Constitutional: Negative for fever, chills, and weight loss, Cardiovascular: Negative jmm for chest pain, palpitations, and edema. 13:15 Respiratory: Positive for shortness of breath. 13:15 All other systems are negative. Exam: 13:15 Head/Face: atraumatic. Eyes: EOMI, no conjunctival erythema appreciated ENT: Moist jmm Mucus Membranes Neck: Trachea midline, Supple Chest/axilla: Normal chest wall appearance and motion. Cardiovascular: Regular rate and rhythm. No edema appreciated 13:15 Back: Normal ROM Skin: General appearance color normal MS/ Extremity: Moves all extremities, no obvious deformities appreciated, no edema noted to the lower extremities Neuro: Awake and alert Psych: Behavior is normal, Mood is normal, Patient is cooperative and pleasant 13:15 Constitutional: The patient appears alert, awake, anxious, uncomfortable. 13:15 Respiratory: moderate respiratory distress is noted, Respirations: labored breathing, that is moderate, Breath sounds: rales, are heard diffusely. Vital Signs: 13:11 BP 203 / 97; Pulse 76; Resp 39 S; Temp 97.8(O); Pulse Ox 97% on R/A; Weight 91.63 kg kc6 (R); Height 5 ft. 0 in. (R); Pain 0/10; 14:26 BP 174 / 61; Pulse 70; Resp 29 S; Pulse Ox 96% on R/A; Pain 0/10; kc6 15:48 BP 184 / 97; Pulse 68; Resp 30 S; Pulse Ox 94% on 2 lpm NC; kc6 16:43 BP 172 / 94; Pulse 65; Resp 18 S; Pulse Ox 95% on 2 lpm NC; kc6 18:08 BP 171 / 71; Pulse 68; Resp 29 S; Pulse Ox 93% on 2 lpm NC; kc6 13:11 Body Mass Index 39.45 (91.63 kg, 152.4 cm) [facility] 13:11 Pain Scale: Adult kc6 14:26 Pain Scale: Adult kc6 MDM: 13:15 Patient medically screened. snw 17:08 Differential diagnosis: CHF exacerbation, Chronic Obstructive Pulmonary Disease [facility] Myocardial Infarction pneumonia, Pneumothorax pulmonary edema, Pulmonary Embolism. Data reviewed: vital signs, nurses notes, lab test result(s), EKG, radiologic studies, CT scan. Consideration of Admission/Observation Patient was admitted/placed on observation. Management of patient was discussed with the following: Dr. Friedman. I considered the following discharge prescriptions or medication management in the emergency department Medications were administered in the Emergency Department. See MAR. Counseling: I had a detailed discussion with the patient and/or guardian regarding: the historical points, exam findings, and any diagnostic results supporting the discharge/admit diagnosis, lab results, radiology results, the need for further work-up and treatment in the hospital. 01/21 13:17 Order name: Basic Metabolic Panel; Complete Time: 14:05 [facility] 01/21 13:17 Order name: CBC with Diff; Complete Time: 14:05 [facility] 01/21 13:17 Order name: Troponin HS; Complete Time: 14:05 [facility] 01/21 13:17 Order name: Influenza Screen (a \T\ B) [facility] 01/21 13:17 Order name: COVID-19 SARS RT PCR [facility] 01/21 18:42 Order name: Troponin High Sensitivity [facility] 01/21 13:17 Order name: XRAY Chest (1 view); Complete Time: 14:31 [facility] 01/21 14:05 Order name: CT Chest For PE Angio; Complete Time: 14:47 [facility] 01/21 13:17 Order name: EKG; Complete Time: 13:18 [facility] 01/21 13:17 Order name: Cardiac monitoring; Complete Time: 13:20 [facility] 01/21 13:17 Order name: EKG - Nurse/Tech; Complete Time: 13:31 [facility] 01/21 13:17 Order name: IV Saline Lock; Complete Time: 13:20 [facility] 01/21 13:17 Order name: Labs collected and sent; Complete Time: 13: [facility] 01/21 13:17 Order name: O2 Per Protocol; Complete Time: 13: [facility] 01/21 13:17 Order name: O2 Sat Monitoring; Complete Time: :20 [facility] Administered Medications: 13:31 Drug: LORazepam PO 0.5 mg Route: PO; kc6 14:46 Follow up: Response: No adverse reaction; Anxiety decreased; Blood pressure is lowered kc6 15:04 Drug: Furosemide IVP 40 mg Route: IVP; Site: left antecubital; kc6 16:43 Follow up: Response: No adverse reaction kc6 Disposition: 18:13 Co-signature as Attending Physician, Feliz STRANGE was immediately available on-site ms3 in the Emergency Department for consultation in the care of the patient. Disposition Summary: 01/21/23 16:17 Hospitalization Ordered Hospitalization Status: Inpatient Admission [facility] Provider: Elias Friedman [facility] Condition: Stable [facility] Problem: an acute exacerbation jm Symptoms: have worsened [facility] Bed/Room Type: Standard [facility] Room Assignment: [facility](01/21/23 17:53) eb Diagnosis - Acute on chronic combined systolic (congestive) and diastolic (congestive) heart [facility] failure Forms: - Medication Reconciliation Form jm - SBAR form [facility] Signatures: Dispatcher [employer] Uma Acevedo FNP-C FNP-Alan Justice PA PA m Nasreen Chaudhari Marcus, DO DO ms3 Viridiana Velez RN RN kc6 Corrections: (The following items were deleted from the chart) 17:53 16:17 [facility] eb
--- NOTE | 2023-01-21 16:18 | ER ---
Nurse's Notes [facility] Name: Jelly Garcia Age: 77 yrs Sex: Female : 1945 Arrival Date: 01/21/2023 Time: 13:02 Bed 15 Private MD: Diagnosis: Acute on chronic combined systolic (congestive) and diastolic (congestive) heart failure Presentation: 01/21 13:11 Chief complaint: EMS states: SOB that began upon awakening today, with HTN. BGL en kc6 route 197. 125mg of Solumedrol given en route. Coronavirus screen: Vaccine status: Patient reports being unvaccinated. At this time, the client does not indicate any symptoms associated with coronavirus-19. Ebola Screen: No symptoms or risks identified at this time. Initial Sepsis Screen: Does the patient meet any 2 criteria? No. Patient's initial sepsis screen is negative. Does the patient have a suspected source of infection? No. Patient's initial sepsis screen is negative. Risk Assessment: Do you want to hurt yourself or someone else? Patient reports no desire to harm self or others. Onset of symptoms was January 21, 2023. 13:11 Method Of Arrival: EMS: [facility] kc6 13:11 Acuity: BRIAN 3 kc6 Triage Assessment: 13:12 General: Appears in no apparent distress. comfortable, Behavior is calm, cooperative, kc6 appropriate for age. Pain: Denies pain. EENT: No signs and/or symptoms were reported regarding the EENT system. Neuro: Awan Agitation-Sedation Scale (RASS): 0 - Alert and Calm Level of Consciousness is awake, alert, obeys commands, Oriented to person, place, time, situation, Appropriate for age. Cardiovascular: Denies chest pain, Heart tones S1 S2 present Capillary refill < 3 seconds Rhythm is sinus rhythm. Respiratory: Reports shortness of breath at rest on exertion Airway is patent Trachea midline Respiratory effort is even, unlabored, Respiratory pattern is symmetrical, tachypnea Onset: The symptoms/episode began/occurred this morning, the patient has mild shortness of breath. GI: No signs and/or symptoms were reported involving the gastrointestinal system. : No signs and/or symptoms were reported regarding the genitourinary system. Derm: No signs and/or symptoms reported regarding the dermatologic system. Skin is intact, Skin is pink, warm \T\ dry. Musculoskeletal: No signs and/or symptoms reported regarding the musculoskeletal system. Circulation, motion, and sensation intact. Capillary refill < 3 seconds, Range of motion: intact in all extremities. Historical: - Allergies: 13:12 No Known Allergies; kc6 - PMHx: 13:12 Atrial Fib; Diabetes - NIDDM; Fibromyalgia; Hypertension; Temporal Arteritis; kc6 - Immunization history:: Client reports having NOT received the Covid vaccine. Flu vaccine is not up to date. - Social history:: Smoking status: Patient denies any tobacco usage or history of. Screenin:14 [facility] ED Fall Risk Assessment (Adult) History of falling in the last 3 months, kc6 including since admission No falls in past 3 months (0 pts) Confusion or Disorientation No (0 pts) Intoxicated or Sedated No (0 pts) Impaired Gait No (0 pts) Mobility Assist Device Used No (0 pt) Altered Elimination No (0 pt) Score/Fall Risk Level 0 - 2 = Low Risk Oriented to surroundings, Maintained a safe environment, Educated pt \T\ family on fall prevention, incl call for assistance when getting out of bed, Assessed \T\ reinforced patient's understanding of fall precautions, Hourly rounding (assess needs \T\ fall precautionary measures) done. Abuse screen: Denies threats or abuse. Denies injuries from another. Nutritional screening: No deficits noted. Tuberculosis screening: No symptoms or risk factors identified. Assessment: 13:15 Reassessment: please see triage assessment. Cardiovascular: Heart tones S1 S2 present kc6 Capillary refill < 3 seconds Rhythm is sinus rhythm. Respiratory: Reports shortness of breath at rest on exertion Airway is patent Trachea midline Respiratory effort is even, unlabored, Respiratory pattern is symmetrical, tachypnea Breath sounds with crackles bilaterally. 14:15 Reassessment: Patient appears in no apparent distress at this time. No changes from kc6 previously documented assessment. Patient and/or family updated on plan of care and expected duration. Pain level reassessed. Patient is alert, oriented x 3, equal unlabored respirations, skin warm/dry/pink. 15:15 Reassessment: Patient appears in no apparent distress at this time. No changes from kc6 previously documented assessment. Patient and/or family updated on plan of care and expected duration. Pain level reassessed. Patient is alert, oriented x 3, equal unlabored respirations, skin warm/dry/pink. 15:45 Reassessment: pt appears to be 84% on RA while resting. pt placed on 2L via NC. pt is kc6 now 94%. NATHALY Phillips notified. 16:15 Reassessment: Patient appears in no apparent distress at this time. No changes from kc6 previously documented assessment. Patient and/or family updated on plan of care and expected duration. Pain level reassessed. Patient is alert, oriented x 3, equal unlabored respirations, skin warm/dry/pink. 17:55 Reassessment: pt appears to have voided approximately 800 mL of clear yellow urine. kc6 please see [facility] for further charting. Reassessment: Patient appears in no apparent distress at this time. No changes from previously documented assessment. Patient and/or family updated on plan of care and expected duration. Pain level reassessed. Patient is alert, oriented x 3, equal unlabored respirations, skin warm/dry/pink. Vital Signs: 13:11 BP 203 / 97; Pulse 76; Resp 39 S; Temp 97.8(O); Pulse Ox 97% on R/A; Weight 91.63 kg kc6 (R); Height 5 ft. 0 in. (R); Pain 0/10; 14:26 BP 174 / 61; Pulse 70; Resp 29 S; Pulse Ox 96% on R/A; Pain 0/10; kc6 15:48 BP 184 / 97; Pulse 68; Resp 30 S; Pulse Ox 94% on 2 lpm NC; kc6 16:43 BP 172 / 94; Pulse 65; Resp 18 S; Pulse Ox 95% on 2 lpm NC; kc6 18:08 BP 171 / 71; Pulse 68; Resp 29 S; Pulse Ox 93% on 2 lpm NC; kc6 13:11 Body Mass Index 39.45 (91.63 kg, 152.4 cm) kc6 13:11 Pain Scale: Adult kc6 14:26 Pain Scale: Adult kc6 ED Course: 13:06 Patient arrived in ED. eb 13:11 Viridiana Velez, RN is Primary Nurse. kc6 13:12 Triage completed. kc6 13:12 Arm band placed on. kc6 13:14 Patient has correct armband on for positive identification. Placed in gown. Bed in low kc6 position. Call light in reach. Side rails up X2. 13:14 Maintain EMS IV. Dressing intact. Good blood return noted. Site clean \T\ dry. Gauge \T\ ruben 6 site: 18G LAC. 13:15 Uma Christianson FNP-C is PHCP. snw 13:15 Feliz Roland DO is Attending Physician. snw 13:16 Uma Christianson FNP-C is PHCP. snw 13:16 PHCP role handed off by Uma Christianson FNP-C [facility] 13:16 Alan Rodriguez PA is PHCP. jmm 14:02 XRAY Chest (1 view) In Process Unspecified. EDMS 14:25 CT Chest For PE Angio In Process Unspecified. EDMS 16:17 Elias Friedman is Hospitalizing Provider. [facility] 18:05 No provider procedures requiring assistance completed. Patient admitted, IV remains in kc6 place. Administered Medications: 13:31 Drug: LORazepam PO 0.5 mg Route: PO; kc6 14:46 Follow up: Response: No adverse reaction; Anxiety decreased; Blood pressure is lowered kc6 15:04 Drug: Furosemide IVP 40 mg Route: IVP; Site: left antecubital; kc6 16:43 Follow up: Response: No adverse reaction kc Medication: 18:06 VIS not applicable for this client. kc6 Output: 15:25 Urine: 400ml (Voided); Total: 400ml. 3 Outcome: 16:17 Decision to Hospitalize by Provider. [facility] [place] 18:05 Admitted to Med/surg accompanied by tech, via stretcher, room 214, with oxygen, with kc6 chart, Report called to SAQIB Nascimento 18:05 Condition: stable 18:05 Instructed on the need for admit. 18:45 Patient left the ED. kc6 Signatures: Dispatcher [employer] EDMS Uma Christianson FNP-C FNP-Csnw Alan Rodriguez PA PA jm Nasreen Chaudhari Erin, RN RN 3 Viridiana Velez RN RN kc6 Corrections: (The following items were deleted from the chart) 13:15 13:12 Respiratory: Reports shortness of breath at rest on exertion Airway is patent kc6 Trachea midline Respiratory effort is even, unlabored, Respiratory pattern is regular, symmetrical, Onset: The symptoms/episode began/occurred this morning, the patient has mild shortness of breath kc6 13:16 13:15 Respiratory: Reports shortness of breath at rest on exertion Airway is patent kc6 Trachea midline Respiratory effort is even, unlabored, Respiratory pattern is regular, symmetrical, Breath sounds with crackles bilaterally. kc6
--- NOTE | 2023-01-21 17:19 | P.HP ---
Certification for Inpatient Patient admitted to: Inpatient With expected LOS: >2 Midnights Practitioner: I am a practitioner with admitting privileges, knowledge of patient current condition, hospital course, and medical plan of care. Services: Services provided to patient in accordance with Admission requirements found in Title 42 Section 412.3 of the Code of Federal Regulations Patient History Date of Service: 01/21/23 Reason for admission: Shortness of breath History of Present Illness: 77-year-old woman with a history of congestive heart failure, chronic atrial fibrillation, pacemaker, chronic anticoagulation presented to the emergency department due to progressive shortness of breath of onset today. Patient states that her cat spilled her medications and did not take her medications for couple of days. She reported initial dyspnea on exertion and now feels short of breath at rest. Patient states she has knee problem which is also affecting her ability to ambulate. Chest x-ray and chest CT done in the emergency department demonstrated pulmonary vascular congestion. Patient placed on oxygen in the ED. Initial troponin is negative. She was given a dose of IV Lasix in the ED. Patient is hospitalized for further management of CHF exacerbation. Allergies No Known Allergies Allergy (Verified 09/19/19 00:35) Home Medications: Duloxetine [Cymbalta *] 60 mg PO BID 01/20/18 Omeprazole 20 mg PO DAILY 01/20/18 Amiodarone HCl [Cordarone*] 200 mg PO BID 09/15/19 Carvedilol [Coreg] 25 mg PO BID 09/15/19 Digoxin 125 mcg PO DAILY 09/15/19 Latanoprost [Xalatan] 1 drop EACH EYE BEDTIME 09/15/19 Sacubitril/Valsartan [Entresto 49 mg-51 mg Tablet] 1 tab PO BID 09/15/19 buPROPion HCL [Bupropion Xl] 150 mg PO DAILY 09/15/19 predniSONE [Deltasone*] 20 mg PO DAILY 09/15/19 Apixaban [Eliquis] 5 mg PO BID 09/17/19 Butalb/Acetaminophen/Caffeine [Uqosff-Mbnxwvqc-Unnh 50-325-40] 1 each PO BIDP PRN 09/17/19 Tramadol HCl [Ultram] 50 mg PO BIDP PRN 09/17/19 Glimepiride [Amaryl*] 4 mg PO DAILY WITH BREAKFAST tab 09/18/19 Lidocaine 4% Patch [Lidoderm 5% Patch*] 1 patch TOP DAILY patch 09/18/19 Polyethyl Gly 3350 [Glycolax*] 17 gm PO DAILY PRN udbot 09/18/19 Topiramate [Topamax*] 25 mg PO BEDTIME #30 tab 09/28/19 - Past Medical/Surgical History Diabetic: Yes -: fibromyalgia -: CHF -: HTN -: 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 rebuilt surg -: fibroid sx -: hysterectomy -: Pacemaker - Family History Sister -: Heart disease, Hypertension Notes: additional sister with arthritis Father -: Cancer Notes: lung Mother -: Cancer Notes: colon - Social History Alcohol use: Yes CD- Drugs: No Caffeine use: Yes Review of Systems Other: Patient denies any chest pain or wheezing. She denies any fever. Except as documented, all other systems reviewed and negative. Physical Examination - Physical Exam General: Alert, In no apparent distress, Other (Frail) HEENT: Mucous membr. moist/pink, Sclerae nonicteric Neck: Supple, JVD not distended Respiratory: Normal air movement, Crackles/rales (Mild bibasilar Rales), Other (No wheezes or rhonchi) Cardiovascular: Regular rate/rhythm, Normal S1 S2, No murmurs, Edema (1+ bilateral lower extremity edema) Gastrointestinal: Soft and benign, Non-distended, No tenderness Musculoskeletal: No erythema, No tenderness Integumentary: No rashes, No cyanosis Neurological: Normal speech, Normal strength at 5/5 x4 extr, Cranial nerves 3-12 intact Lymphatics: No axilla or inguinal lymphadenopathy - Studies Laboratory Data (last 24 hrs) 01/21/23 13:29: WBC 13.90 H, Hgb 13.0, Hct 41.1, Plt Count 290 01/21/23 13:29: Sodium 141, Potassium 4.3, BUN 23 H, Creatinine 1.08 H, Glucose 181 H Assessment and Plan - Problems (Diagnosis) (1) Acute on chronic diastolic heart failure Current Visit: Yes Status: Acute (2) Atrial fibrillation Current Visit: Yes Status: Acute (3) History of atrial fibrillation Current Visit: No Status: Chronic (4) Impaired mobility Current Visit: Yes Status: Acute (5) Malignant hypertension Current Visit: Yes Status: Acute - Plan Admit patient to the medical floor. Continue to trend troponin Start IV Lasix 40 mg twice daily Monitor renal function closely with diuresis. Monitor intake and output, daily weight. Resume home medications for atrial fibrillation including Eliquis. Resume Coreg for hypertension Hydralazine IV as needed for BP spikes. PT consult given impaired mobility. Reconcile and continue other home medications. - Advance Directives Does patient have a Living Will: No Does patient have a Durable POA for Healthcare: No
[2023-01-21] MEDS ORDERED: ALBUTEROL 2.5 MG/3 ML NEB SOL NEB PRN (17:37)
[2023-01-21] MEDS ORDERED: HYDRALAZINE HCL 20 MG/ML VIAL IV PRN (17:37)
[2023-01-21] MEDS ORDERED: ACETAMINOPHEN 500 MG TAB PO PRN (17:37)
[2023-01-21] MEDS ORDERED: ONDANSETRON 4 MG/2 ML VIAL IV PRN (17:37)
[2023-01-21] MEDS ORDERED: ENOXAPARIN 40 MG/0.4 ML SQ SCH (18:00)
[2023-01-21] MEDS: APIXABAN 5 MG TABLET PO SCH (21:19)
[2023-01-21] MEDS: carvediloL 25 MG TAB PO SCH (21:19)
[2023-01-22 00:41] VITALS: BMI 39.4
[2023-01-22 03:26] LABS: Absolute Lymphocytes (CBC) 0.7 K/uL (0.7-4.9); Lymphocytes % 4.3 % (15.3-44.8); MCV 94.1 fL (80-100); MPV 8.4 fL (7.6-11.3); RBC Red Blood Cell Count 4.14 M/uL (3.86-4.86)
[2023-01-22 03:52] LABS: Magnesium 1.9 mg/dL (1.6-2.4); Phosphorus 3.7 mg/dL (2.5-4.9); Potassium 3.8 mEq/L (3.5-5.1)
[2023-01-22 04:25] LABS: Blood Morphology Comment NOT SEEN (NOT SEEN); Platelet Estimate ADEQ
[2023-01-22] MEDS: carvediloL 25 MG TAB PO SCH ×2 (08:54→20:33)
[2023-01-22] MEDS: APIXABAN 5 MG TABLET PO SCH ×2 (08:54→20:33)
[2023-01-22] MEDS: FUROSEMIDE 40 MG/4 ML VIAL IV SCH ×2 (08:55→16:27)
[2023-01-22] MEDS ORDERED: POTASSIUM CL SA 10 MEQ TAB PO ONE (09:00)
--- NOTE | 2023-01-22 10:22 | P.PN ---
Subjective Date of Service: 01/22/23 Chief Complaint: Shortness of breath Patient states she feels much better today. She is coughing intermittently but cough is nonproductive. She denies any chest pain. She states her shortness of breath has significantly improved. No recorded fever. Physical Examination - Vital Signs Temperature: 96.9 F Blood Pressure: 136/64 Pulse: 61 Respirations: 18 Pulse Ox (%): 98 - Physical Exam General: Alert, In no apparent distress, Oriented x3 HEENT: Mucous membr. moist/pink, Sclerae nonicteric Neck: JVD not distended Respiratory: Normal air movement, Other (Mild bibasilar crackles) Cardiovascular: Normal S1 S2, Edema (Trace bilateral pedal and ankle edema), Irregular heart rate/rhythm Gastrointestinal: Normal bowel sounds, Soft and benign, Non-distended, No tenderness Musculoskeletal: No swelling, No tenderness Integumentary: No rashes, No cyanosis Neurological: Normal strength at 5/5 x4 extr - Studies Laboratory Data (last 24 hrs) 01/21/23 13:29: WBC 13.90 H, Hgb 13.0, Hct 41.1, Plt Count 290 01/21/23 13:29: Sodium 141, Potassium 4.3, BUN 23 H, Creatinine 1.08 H, Glucose 181 H Assessment And Plan - Current Problems (Diagnosis) (1) Acute on chronic diastolic heart failure Current Visit: Yes Status: Acute (2) Atrial fibrillation Current Visit: Yes Status: Acute (3) History of atrial fibrillation Current Visit: No Status: Chronic (4) Impaired mobility Current Visit: Yes Status: Acute (5) Malignant hypertension Current Visit: Yes Status: Acute - Plan Troponin trended slightly up. Patient is asymptomatic. Elevated troponin likely secondary to demand ischemia. Continue IV Lasix for 1 more day and transition to oral Lasix. Obtain echocardiogram. Monitor renal function closely with diuresis. Monitor intake and output, daily weight. Resume home medications for atrial fibrillation including Eliquis. Blood pressure has improved. Patient is currently normotensive. Continue Coreg for hypertension Hydralazine IV as needed for BP spikes. PT consulted given impaired mobility. Start antibiotics for possible pneumonia given worsening leukocytosis. Monitor CBC to follow leukocytosis.
[2023-01-22] MEDS: CEFUROXIME 250 MG TAB PO SCH ×2 (11:13→20:32)
[2023-01-22] MEDS: DOXYCYCLINE 100 MG CAP PO SCH ×2 (11:13→20:33)
[2023-01-22] MEDS ORDERED: POLYETHYL GLY 3350 17 GM/DOSE PO PRN (11:36)
[2023-01-22] MEDS ORDERED: TRAMADOL HCL 50 MG TAB PO PRN (11:36)
[2023-01-22] MEDS: HOME MED 1 EA UNK (Sacubitril/Valsartan [Entresto 97 Mg-103 Mg Tablet] Tablet) PO SCH ×2 (11:38→21:00)
[2023-01-22 12:49] LABS: Specific Gravity 1.011 (1.005-1.030); Urine Bacteria <20 /HPF (<20); Urine Bilirubin NEGATIVE (Negative); Urine Blood Negative (Negative); Urine Clarity Clear (Clear); Urine Color Colorless (Yellow); Urine Glucose NEGATIVE (Negative); Urine Mucus Slight /HPF (None Seen); Urine Protein NEGATIVE (Negative); Urine RBC <5 /HPF (None Seen); Urine Urobilinogen Normal (Normal); Urine pH 5.5 (5.0-7.0)
[2023-01-22] MEDS: AMIODARONE HCL 200 MG TAB PO SCH (20:32)
[2023-01-22] MEDS: LATANOPROST 0.005% 2.5ML OPTH OPTH SCH (20:33)
[2023-01-22] MEDS: TOPIRAMATE 25 MG TAB PO SCH (20:33)
[2023-01-22] MEDS: DULOXETINE 30 MG CAP PO SCH (20:33)
[2023-01-22] MEDS: ROSUVASTATIN 10 MG TAB PO SCH (20:33)
[2023-01-23] MEDS: DULOXETINE 30 MG CAP PO SCH ×2 (08:43→21:11)
[2023-01-23] MEDS: carvediloL 25 MG TAB PO SCH ×2 (08:43→21:11)
[2023-01-23] MEDS: BUPROPION HCL XL 150 MG TAB PO SCH (08:43)
[2023-01-23] MEDS: PANTOPRAZOLE 40MG TABLET PO SCH (08:44)
[2023-01-23] MEDS: CEFUROXIME 250 MG TAB PO SCH ×2 (08:44→21:10)
[2023-01-23] MEDS: AMIODARONE HCL 200 MG TAB PO SCH ×2 (08:44→21:11)
[2023-01-23] MEDS: FUROSEMIDE 40 MG/4 ML VIAL IV SCH (08:44)
[2023-01-23] MEDS: APIXABAN 5 MG TABLET PO SCH ×2 (08:44→21:11)
[2023-01-23] MEDS: DOXYCYCLINE 100 MG CAP PO SCH ×2 (08:44→21:11)
[2023-01-23] MEDS: LIDOCAINE 4% PATCH TOP SCH (08:44)
[2023-01-23] MEDS: HOME MED 1 EA UNK (Sacubitril/Valsartan [Entresto 97 Mg-103 Mg Tablet] Tablet) PO SCH ×2 (09:00→21:00)
--- NOTE | 2023-01-23 11:00 | P.PN ---
Subjective Date of Service: 01/23/23 Chief Complaint: Shortness of breath Patient has no new complaint. He reports intermittent coughing. She denies any chest pain. She denies shortness of breath. Physical Examination - Vital Signs Temperature: 97.2 F Blood Pressure: 123/75 Pulse: 61 Respirations: 20 Pulse Ox (%): 96 - Physical Exam General: Alert, In no apparent distress, Oriented x3 HEENT: Mucous membr. moist/pink Neck: JVD not distended Respiratory: Clear to auscultation bilaterally, Normal air movement Cardiovascular: No edema, Regular rate/rhythm, Normal S1 S2 Gastrointestinal: Normal bowel sounds, Soft and benign, Non-distended, No tenderness Musculoskeletal: No swelling Integumentary: No rashes, No cyanosis Neurological: Normal strength at 5/5 x4 extr Assessment And Plan - Current Problems (Diagnosis) (1) Acute on chronic diastolic heart failure Current Visit: Yes Status: Acute (2) Atrial fibrillation Current Visit: Yes Status: Acute (3) History of atrial fibrillation Current Visit: No Status: Chronic (4) Impaired mobility Current Visit: Yes Status: Acute (5) Malignant hypertension Current Visit: Yes Status: Acute - Plan Troponin trended slightly up. Patient is asymptomatic. Elevated troponin likely secondary to demand ischemia. Serum creatinine trended up. Change IV Lasix to oral. Echocardiogram. Monitor intake and output, daily weight. Continue home medications for atrial fibrillation including Eliquis. Continue antibiotics for possible pneumonia/infective bronchitis. Recheck CBC to follow leukocytosis. Increase activity as tolerated.
[2023-01-23 12:23] LABS: Absolute Lymphocytes (CBC) 1.7 K/uL (0.7-4.9); Hematocrit 39.5 % (36.0-45.0); MCV 94.8 fL (80-100); MPV 8.2 fL (7.6-11.3); RBC Red Blood Cell Count 4.17 M/uL (3.86-4.86)
[2023-01-23] MEDS: ROSUVASTATIN 10 MG TAB PO SCH (21:10)
[2023-01-23] MEDS: LATANOPROST 0.005% 2.5ML OPTH OPTH SCH (21:10)
[2023-01-23] MEDS: TOPIRAMATE 25 MG TAB PO SCH (21:11)
[2023-01-24 03:34] LABS: Absolute Lymphocytes (CBC) 1.6 K/uL (0.7-4.9); Hematocrit 40.3 % (36.0-45.0); Lymphocytes % 15.3 % (15.3-44.8); MPV 8.3 fL (7.6-11.3); RBC Red Blood Cell Count 4.29 M/uL (3.86-4.86)
[2023-01-24 03:58] LABS: Potassium 4.3 mEq/L (3.5-5.1)
[2023-01-24] MEDS: SACUBITRIL PO SCH ×2 (09:08→21:52)
[2023-01-24] MEDS: VALSARTAN PO SCH ×2 (09:08→21:52)
[2023-01-24] MEDS: BUPROPION HCL XL 150 MG TAB PO SCH (09:08)
[2023-01-24] MEDS: AMIODARONE HCL 200 MG TAB PO SCH ×2 (09:09→21:51)
[2023-01-24] MEDS: PANTOPRAZOLE 40MG TABLET PO SCH (09:09)
[2023-01-24] MEDS: carvediloL 25 MG TAB PO SCH ×2 (09:09→21:51)
[2023-01-24] MEDS: DULOXETINE 30 MG CAP PO SCH ×2 (09:09→21:52)
[2023-01-24] MEDS: APIXABAN 5 MG TABLET PO SCH ×2 (09:09→21:53)
[2023-01-24] MEDS: CEFUROXIME 250 MG TAB PO SCH ×2 (09:09→21:50)
[2023-01-24] MEDS: DOXYCYCLINE 100 MG CAP PO SCH ×2 (09:09→21:52)
[2023-01-24] MEDS: LIDOCAINE 4% PATCH TOP SCH (09:10)
--- NOTE | 2023-01-24 09:11 | P.DS ---
Admission Date: 01/21/23 Discharge Date: 01/24/23 Disposition: DC HOME/HOME HEALTH CARE Discharge Condition: FAIR Reason for Admission: Shortness of breath - Problems (1) Acute on chronic diastolic heart failure Current Visit: Yes Status: Acute (2) Atrial fibrillation Current Visit: Yes Status: Acute (3) History of atrial fibrillation Current Visit: No Status: Chronic (4) Impaired mobility Current Visit: Yes Status: Acute (5) Malignant hypertension Current Visit: Yes Status: Acute (6) Acute cystitis without hematuria Current Visit: Yes Status: Acute Brief History of Present Illness: 77-year-old woman with a history of congestive heart failure, chronic atrial fibrillation, pacemaker, chronic anticoagulation presented to the emergency department due to progressive shortness of breath of onset today. Patient states that her cat spilled her medications and did not take her medications for couple of days. She reported initial dyspnea on exertion and now feels short of breath at rest. Patient states she has knee problem which is also affecting her ability to ambulate. Chest x-ray and chest CT done in the emergency department demonstrated pulmonary vascular congestion. Patient placed on oxygen in the ED. Initial troponin is negative. She was given a dose of IV Lasix in the ED. Patient is hospitalized for further management of CHF exacerbation. Hospital Course: Patient admitted to the medical floor Troponin trended slightly up. Patient is asymptomatic. Elevated troponin likely secondary to demand ischemia. She was treated with IV Lasix for CHF exacerbation. Patient diuresed well and her symptoms resolved. Serum creatinine trended up with diuresis. Lasix was held for 1 day after which renal function improved. Patient transition to her home dose oral Lasix on discharge Echocardiogram: Continued home medications for atrial fibrillation including Eliquis. A-fib was rate controlled. She had leukocytosis. UA suggested UTI. CTA thorax: Pneumonia not ruled out. She was treated with oral antibiotics-cefuroxime and doxycycline. Urine culture grew Overall patient is clinically stable Discharge to home with home health. Vital Signs/Physical Exam: Temp Pulse Resp BP Pulse Ox 98.3 F 60 16 134/70 95 01/24/23 07:41 01/24/23 07:41 01/24/23 07:41 01/24/23 07:41 01/24/23 07:41 General: Alert, In no apparent distress, Oriented x3 HEENT: Mucous membr. moist/pink Neck: Supple, JVD not distended Respiratory: Clear to auscultation bilaterally, Normal air movement Cardiovascular: No edema, Irregular heart rate/rhythm Gastrointestinal: Soft and benign, Non-distended, No tenderness Musculoskeletal: No swelling Integumentary: No rashes, No cyanosis Neurological: Normal strength at 5/5 x4 extr Laboratory Data at Discharge: WBC 10.20 thou/uL (4.3-10.9) 01/24/23 02:31 Hgb 13.2 g/dL (12.0-15.0) 01/24/23 02:31 Hct 40.3 % (36.0-45.0) 01/24/23 02:31 Plt Count 229 thou/uL (152-406) 01/24/23 02:31 Sodium 136 mEq/L (136-145) 01/24/23 02:31 Potassium 4.3 mEq/L (3.5-5.1) 01/24/23 02:31 BUN 52 mg/dL (7-18) H 01/24/23 02:31 Creatinine 1.28 mg/dL (0.55-1.02) H 01/24/23 02:31 Glucose 140 mg/dL (74-106) H 01/24/23 02:31 Phosphorus 3.7 mg/dL (2.5-4.9) 01/22/23 02:54 Magnesium 1.9 mg/dL (1.6-2.4) 01/22/23 02:54 Home Medications: Duloxetine [Cymbalta *] 60 mg PO BID 01/20/18 Omeprazole 40 mg PO DAILY 01/20/18 Amiodarone HCl [Cordarone*] 200 mg PO BID 09/15/19 Carvedilol [Coreg] 25 mg PO BID 09/15/19 Digoxin 125 mcg PO DAILY 09/15/19 Latanoprost [Xalatan] 1 drop EACH EYE BEDTIME 09/15/19 buPROPion HCL [Bupropion Xl] 150 mg PO DAILY 09/15/19 predniSONE [Deltasone*] 20 mg PO DAILY 09/15/19 Apixaban [Eliquis] 5 mg PO BID 09/17/19 Butalb/Acetaminophen/Caffeine [Zdegzp-Zkvqkwmr-Wcvd 50-325-40] 1 each PO BIDP P RN 09/17/19 Tramadol HCl [Ultram] 50 mg PO BIDP PRN 09/17/19 Lidocaine 4% Patch [Lidoderm 5% Patch*] 1 patch TOP DAILY patch 09/18/19 Polyethyl Gly 3350 [Glycolax*] 17 gm PO DAILY PRN udbot 09/18/19 Topiramate [Topamax*] 25 mg PO BEDTIME #30 tab 09/28/19 Metformin ER [Glucophage ER*] 500 mg PO DAILY 01/21/23 Rosuvastatin Calcium 20 mg PO BEDTIME 01/21/23 Sacubitril/Valsartan [Entresto 97 mg-103 mg Tablet] 1 tab PO BID 01/21/23 Diet: AHA Activity: Ad barbara Followup: NONE,NONE [Primary Care Provider] - Time spent managing pt's care (in minutes): 36
--- NOTE | 2023-01-24 12:26 | P.PN ---
Subjective Date of Service: 01/24/23 Chief Complaint: Shortness of breath Patient has no new complaint. She denies any chest pain. She denies shortness of breath. Physical Examination - Vital Signs Temperature: 97.0 F Blood Pressure: 119/65 Pulse: 58 Respirations: 18 Pulse Ox (%): 95 - Physical Exam General: Alert, In no apparent distress, Oriented x3 HEENT: Mucous membr. moist/pink Neck: JVD not distended Respiratory: Clear to auscultation bilaterally, Normal air movement Cardiovascular: No edema, Regular rate/rhythm, Normal S1 S2 Gastrointestinal: Soft and benign, Non-distended Musculoskeletal: No swelling Integumentary: No cyanosis Neurological: Normal strength at 5/5 x4 extr Assessment And Plan - Current Problems (Diagnosis) (1) Acute on chronic diastolic heart failure Current Visit: Yes Status: Acute (2) Atrial fibrillation Current Visit: Yes Status: Acute (3) History of atrial fibrillation Current Visit: No Status: Chronic (4) Impaired mobility Current Visit: Yes Status: Acute (5) Malignant hypertension Current Visit: Yes Status: Acute (6) Acute cystitis without hematuria Current Visit: Yes Status: Acute - Plan Troponin trended slightly up. Patient is asymptomatic. Elevated troponin likely secondary to demand ischemia. Brief run/nonsustained VT today. Paced rhythm. Check magnesium level and replete as needed. Potassium level is at target of greater than 4 today. Serum creatinine trended down. Resume home dose oral Lasix Echocardiogram is done and the result is pending. Continue amiodarone, Coreg and Eliquis for atrial fibrillation. Patient is currently normotensive. Leukocytosis resolved Continue antibiotics for possible pneumonia/infective bronchitis. Patient seen and evaluated by PT. no further PT needs according to the therapist.
--- NOTE | 2023-01-24 12:30 | EKG ---
Test Date: 2023-01-21 Test Time: 13:28:03 Cake Batter Mixer: AARON MEASUREMENT RESULTS: Intervals: Rate: 74 AR: QRSD: 70 QT: 450 QTc: 499 Imperial: P: AR: QRS: 48 T: 69 INTERPRETIVE STATEMENTS: Atrial fibrillation with premature ventricular or aberrantly conducted complexes Prolonged QT Abnormal ECG Compared to ECG 07/17/2019 04:42:00 Prolonged QT interval now present Sinus tachycardia no longer present Atrial premature complex(es) no longer present Left ventricular hypertrophy no longer present Myocardial infarct finding no longer present Electronically Signed On 01-24-23 12:27:41 CDT by Mark Perez
--- NOTE | 2023-01-24 14:31 | ECHO ---
HEIGHT: 5 ft 0 in WEIGHT: 199 lb 7 oz DATE OF STUDY: 01/24/[address]: Elias Friedman MD 2-DIMENSIONAL: YES M.MODE: YES DOPPLER: YES COLOR FLOW: YES TDS: PORTABLE: YES DEFINITY: BUBBLE STUDY: DIAGNOSIS: CONGESTIVE HEART FAILURE CARDIAC HISTORY: CATHERIZATION: NO SURGERY: NO PROSTHETIC VALVE: NO PACEMAKER: YES MEASUREMENTS (cm) DIASTOLIC (NORMALS) SYSTOLIC (NORMALS) IVSd 1.3 (0.6-1.2) LA Diam 3.6 (1.9-4.0) LVEF % LVIDd 5.1 (3.5-5.7) LVIDs 3.8 (2.0-3.5) %FS % LVPWd 1.4 (0.6-1.2) Ao Diam 2.4 (2.0-3.7) 2 DIMENSIONAL ASSESSMENT: RIGHT ATRIUM: LEFT ATRIUM: RIGHT VENTRICLE: LEFT VENTRICLE: TRICUSPID VALVE: MITRAL VALVE: PULMONIC VALVE: AORTIC VALVE: PERICARDIAL EFFUSION: AORTIC ROOT: LEFT VENTRICULAR WALL MOTION: DOPPLER/COLOR FLOW: COMMENTS: 1. POOR WINDOWS 2. UNABLE TO EVALUATE THE HEART ACCURATELY ON THIS EXAM. TECHNOLOGIST: GENE GHOSH
[2023-01-24] MEDS: LATANOPROST 0.005% 2.5ML OPTH OPTH SCH (21:50)
[2023-01-24] MEDS: ROSUVASTATIN 10 MG TAB PO SCH (21:51)
[2023-01-24] MEDS: TOPIRAMATE 25 MG TAB PO SCH (21:52)
[2023-01-25 03:38] LABS: Absolute Lymphocytes (CBC) 1.5 K/uL (0.7-4.9); Lymphocytes % 15.2 % (15.3-44.8); MCV 93.4 fL (80-100); MPV 8.2 fL (7.6-11.3); RBC Red Blood Cell Count 4.29 M/uL (3.86-4.86)
[2023-01-25 03:51] LABS: Potassium 4.6 mEq/L (3.5-5.1)
--- NOTE | 2023-01-25 07:22 | P.PN ---
Date of Service: 01/25/23 Subjective: ROS: 10 point ROS as noted above, otherwise negative Physical Exam: GEN: Alert, oriented, NAD HEENT: Normal conjunctiva, sclera anicteric CV: Regular rate and rhythm, no edema Pulm: Nonlabored respirations on room air ABD: Soft, nontender, nondistended MSK: No joint tenderness Integumentary: No rashes Neuro: Normal speech, normal affect vitals reviewed Problem List: Acute on Chronic Diastolic heart failure UTI A-fib Impaired Mobility Malignant Hypertension Acute cystitis without hematuria VTE: Eliquis Code: Full Dispo: Home 1-2 days
[2023-01-25] MEDS: LIDOCAINE 4% PATCH TOP SCH (07:59)
[2023-01-25] MEDS: DULOXETINE 30 MG CAP PO SCH (07:59)
[2023-01-25] MEDS: VALSARTAN PO SCH (07:59)
[2023-01-25] MEDS: BUPROPION HCL XL 150 MG TAB PO SCH (07:59)
[2023-01-25] MEDS: SACUBITRIL PO SCH (07:59)
[2023-01-25] MEDS: APIXABAN 5 MG TABLET PO SCH (08:00)
[2023-01-25] MEDS: DOXYCYCLINE 100 MG CAP PO SCH (08:00)
[2023-01-25] MEDS: CEFUROXIME 250 MG TAB PO SCH (08:00)
[2023-01-25] MEDS: PANTOPRAZOLE 40MG TABLET PO SCH (08:00)
--- NOTE | 2023-01-25 08:34 | P.DS ---
Admission Date: 01/21/23 Discharge Date: 01/25/23 Disposition: DC HOME/HOME HEALTH CARE Discharge Condition: FAIR Reason for Admission: Shortness of breath Consultations: Cardiology - Dr. Perez Brief History of Present Illness: 77yo F, PMH: congestive heart failure, chronic atrial fibrillation, pacemaker, chronic anticoagulation Patient presented to the emergency department due to progressive shortness of breath of onset today. Patient states that her cat spilled her medications and did not take her medications for couple of days. She reported initial dyspnea on exertion and now feels short of breath at rest. Patient states she has knee problem which is also affecting her ability to ambulate. Chest x-ray and chest CT done in the emergency department demonstrated pulmonary vascular congestion. Patient placed on oxygen in the ED. Initial troponin is negative. She was given a dose of IV Lasix in the ED. Patient is hospitalized for further management of CHF exacerbation. Hospital Course: Problem List: Acute on Chronic Diastolic heart failure UTI A-fib Impaired Mobility Malignant Hypertension Acute cystitis without hematuria Presented with shortness of breath and UTI symptoms. Improved with IV lasix and antibiotics. Renal function briefly worsened after 2 days of IV lasix 40mg twice daily, which was held and renal function returned back to normal. echocardiogram was performed and difficult to fully visualize the heart. given the rise in renal function, recommend continuing the spironolactone at home. Discharged with 20mg tablet of Furosemide (lasix) - to take NEEDED for 2- 3lb weight gain and shortness of breath and/or leg swelling IF need to take two days in a roll, call your PCP. Follow up closely with your PCP, may need to start on daily lasix as well with closely monitoring renal function UA noted bacteria and urine culture grew pisano-sensitive, e.coli. She improved on oral cefuroxime and doxycycline. Discharged home with 7 more days of cefuroxime She ambulated with PT well. Discharged with home health Physical Exam: GEN: Alert, oriented, NAD HEENT: Normal conjunctiva, sclera anicteric CV: Regular rate and rhythm, no edema Pulm: Nonlabored respirations on room air ABD: Soft, nontender, nondistended Neuro: Normal speech, normal affect Vital Signs/Physical Exam: Temp Pulse Resp BP Pulse Ox 97.2 F 62 15 114/50 L 94 01/25/23 04:00 01/25/23 04:00 01/25/23 04:00 01/25/23 04:00 01/25/23 04:00 Laboratory Data at Discharge: WBC 10.10 thou/uL (4.3-10.9) 01/25/23 02:56 Hgb 13.0 g/dL (12.0-15.0) 01/25/23 02:56 Hct 40.0 % (36.0-45.0) 01/25/23 02:56 Plt Count 233 thou/uL (152-406) 01/25/23 02:56 Sodium 137 mEq/L (136-145) 01/25/23 02:56 Potassium 4.6 mEq/L (3.5-5.1) 01/25/23 02:56 BUN 48 mg/dL (7-18) H 01/25/23 02:56 Creatinine 1.18 mg/dL (0.55-1.02) H 01/25/23 02:56 Glucose 142 mg/dL (74-106) H 01/25/23 02:56 Phosphorus 4.0 mg/dL (2.5-4.9) 01/24/23 02:31 Magnesium 1.7 mg/dL (1.6-2.4) 01/24/23 12:26 Home Medications: Duloxetine [Cymbalta *] 60 mg PO BID 01/20/18 Omeprazole 40 mg PO DAILY 01/20/18 Amiodarone HCl [Cordarone*] 200 mg PO BID 09/15/19 Carvedilol [Coreg] 25 mg PO BID 09/15/19 Digoxin 125 mcg PO DAILY 09/15/19 Latanoprost [Xalatan] 1 drop EACH EYE BEDTIME 09/15/19 buPROPion HCL [Bupropion Xl] 150 mg PO DAILY 09/15/19 predniSONE [Deltasone*] 20 mg PO DAILY 09/15/19 Apixaban [Eliquis] 5 mg PO BID 09/17/19 Butalb/Acetaminophen/Caffeine [Njubaj-Pmujvlhr-Kkiw 50-325-40] 1 each PO BIDP PRN 09/17/19 Tramadol HCl [Ultram] 50 mg PO BIDP PRN 09/17/19 Lidocaine 4% Patch [Lidoderm 5% Patch*] 1 patch TOP DAILY patch 09/18/19 Polyethyl Gly 3350 [Glycolax*] 17 gm PO DAILY PRN udbot 09/18/19 Topiramate [Topamax*] 25 mg PO BEDTIME #30 tab 09/28/19 Metformin ER [Glucophage ER*] 500 mg PO DAILY 01/21/23 Rosuvastatin Calcium 20 mg PO BEDTIME 01/21/23 Sacubitril/Valsartan [Entresto 97 mg-103 mg Tablet] 1 tab PO BID 01/21/23 Cefuroxime [Ceftin*] 500 mg PO BID 7 Days #28 tab 01/25/23 Furosemide [Lasix] 20 mg PO DAILY PRN 30 Days #30 tab 01/25/23 New Medications: Cefuroxime [Ceftin*] 500 mg PO BID 7 Days #28 tab Furosemide [Lasix] 20 mg PO DAILY PRN 30 Days #30 tab PRN Reason: Shortness Of Breath Physician Discharge Instructions: Presented with shortness of breath and UTI symptoms. Improved with IV lasix and antibiotics. Renal function briefly worsened after 2 days of IV lasix 40mg twice daily, which was held and renal function returned back to normal. echocardiogram was performed and difficult to fully visualize the heart. given the rise in renal function, recommend continuing the spironolactone at home. Discharged with 20mg tablet of Furosemide (lasix) - to take NEEDED for 2- 3lb weight gain and shortness of breath and/or leg swelling IF need to take two days in a roll, call your PCP. Follow up closely with your PCP, may need to start on daily lasix as well with closely monitoring renal function UA noted bacteria and urine culture grew pisano-sensitive, e.coli. She improved on oral cefuroxime and doxycycline. Discharged home with 7 more days of cefuroxime She ambulated with PT well. Discharged with home health. Diet: AHA Activity: Ad barbara Followup: NONE,NONE [Primary Care Provider] - Time spent managing pt's care (in minutes): 45
[2023-01-25] MEDS: carvediloL 25 MG TAB PO SCH (08:45)
[2023-01-25] MEDS: AMIODARONE HCL 200 MG TAB PO SCH (08:46)
[2023-01-25 08:50] VITALS: O2SAT 92
[2023-01-25 12:10] VITALS: BP 94/47; TEMP 98.1
--- NOTE | 2023-01-27 12:39 | CON ---
Reason For Consultation: Ventricular tachycardia and elevated troponin. History Of Present Illness: The patient is 77. She is a patient of [facility]. Has seen Dr. García and Dr. Hawkins before. Has had an AICD since 2019 for cardiomyopathy. Was in the hospital, shane harris has an echocardiogram that showed very poor window and technically difficult, but while she wa s in the hospital and actually was planning to be discharged, she had an episode of ventricular tachy cardia that was nonsustained without any hemodynamic compromise. The patient denied any palpitation, syncope, fever, chills, nausea, vomiting, diaphoresis, PND, orthopnea, or pedal edema. She does kenrick e amiodarone 200 mg twice a day at home. She takes Coreg 25 mg b.i.d., Eliquis, hydralazine, Entrest o, Crestor, inhalers. She is in the hospital here receiving antibiotics. Past Medical History: Includes CHF, AICD, hypertension, dyslipidemia, atrial fibrillation, and COPD. Allergies: NONE. Review of Systems: Negative. Social History: Negative. Family History: Negative. Medications: Listed above. Physical Examination: Vital Signs: Stable, afebrile. HEENT: Negative. Neck: Supple with no bruit. Chest: Clear. Cardiac: Revealed paced rhythm. No murmurs, gallops, or rubs. Abdomen: Benign. Extremities: Revealed no clubbing, cyanosis, or edema. Diagnostic Data: As stated earlier. Also include a creatinine 1.18, magnesium 1.7, potassium 3.6. EKG showed paced rhythm. Impression And Plan: Ventricular tachycardia without an AICD discharge, elevated troponin secondary to ventricular tachycardia. The patient had no hemodynamic compromise, no symptoms. I will continue her present regimen. I would supplement her with magnesium before she goes home. Continue the amio darone and carvedilol. Taking extra Coreg as needed. If she becomes symptomatic, she will see Dr. Angella sorto and Dr. Tucker in the near future. We will also continue her Entresto, Crestor, Eliquis, hydr alazine, and inhalers. Case was discussed with Dr. Campos. She can go home today. BLUE/MODL Voice ID: [id number] Report ID: [id number]
== END 2023-01-25 14:53 | disposition home health service (06) | DRG 291 ==
LOC: ER 13:02 → ERHOLD 17:02 → 2ND 18:09
PROVIDERS: ADMIT Internal Medicine; ATTEND Hospitalist
DX: I50.33 Acute on chronic diastolic (congestive) heart failure (principal); J18.9 Pneumonia, unspecified organism; I24.8 Other forms of acute ischemic heart disease; I48.20 Chronic atrial fibrillation, unspecified; N30.00 Acute cystitis without hematuria; I47.20 Ventricular tachycardia, unspecified; I16.0 Hypertensive urgency; E11.9 Type 2 diabetes mellitus without complications; M79.7 Fibromyalgia; Z79.01 Long term (current) use of anticoagulants; Z79.52 Long term (current) use of systemic steroids; Z79.02 Long term (current) use of antithrombotics/antiplatelets; Z90.49 Acquired absence of other specified parts of digestive tract; Z79.84 Long term (current) use of oral hypoglycemic drugs; Z79.899 Other long term (current) drug therapy; Z96.651 Presence of right artificial knee joint; Z28.310 Unvaccinated for COVID-19; Z90.710 Acquired absence of both cervix and uterus; Z95.810 Presence of automatic (implantable) cardiac defibrillator; B96.20 Unspecified Escherichia coli [E. coli] as the cause of diseases classified elsewhere
CPT/HCPCS: 36415; 71045; 71275; 80048; 81001; 83735; 84100; 84484; 85025; 87077; 87086; 87088; 87186; 93005; 93306; 96374; 97116; 97161; 99285; J0360; J1940; J2001; Q9967

== ENCOUNTER 2023-06-06 08:05 | Inpatient (IN) | payer OTHER ==
--- OUTSIDE RECORDS SUMMARY | 2023-06-06 08:15 | XMS REPORT | Continuity of Care Document ---
:1945 Author Organization [facility] t Address [address] [address] [place] [address] Care Team Providers Name Role Phone No, Pcp [facility] Primary Care Physician Unavailable DANIEL MCKEON Attending Clinician Unavailable JUAN MALONEY Attending Clinician Unavailable COLLEEN BROWN Attending Clinician Unavailable MICHAEL ANDERSON Attending Clinician Unavailable PATSY MCCONNELL Attending Clinician Unavailable DEEPAK DELONG Attending Clinician Unavailable LAB90 Attending Clinician Unavailable UMA GOLDEN Attending Clinician Unavailable HEVER HUTTON Attending Clinician Unavailable VIRA HYDE Attending Clinician Unavailable CRYSTAL SOLIS Attending Clinician Unavailable NIMISHA CÁRDENAS Attending Clinician Unavailable POLLO ENGLISH Attending Clinician Unavailable POLLO ENGLISH Attending Clinician Unavailable Pollo English MD Attending Clinician MD GARRETT Attending Clinician Unavailable LAB47 Attending Clinician Unavailable Colleen Erickson Attending Clinician LETY RECIO Attending Clinician Unavailable FACUNDO MURPHY Attending Clinician Unavailable SWAB, CK COVID SELF Attending Clinician Unavailable Deepak Delong MD Attending Clinician SLOAN NAGY Attending Clinician Unavailable DMITRY DECKER Attending Clinician Unavailable DESIREE RAHMAN Attending Clinician Unavailable SAYRA RAHMAN Attending Clinician Unavailable Barrett VELÁSQUEZ, Vira Borrego Attending Clinician [phone] ELYSSA BEARD Attending Clinician Unavailable AICHA ALVARADO Attending Clinician Unavailable Beau Claire Attending Clinician Unavailable JOBY CRAWFORD Attending Clinician Unavailable JAYLIN BEARD Attending Clinician Unavailable JONA CORRALES Attending Clinician Unavailable Physician, No Primary or Family Admitting Clinician Unavaila ble Payers Payer Name Policy Type Policy Number Effective Date Expiration Date S jareth [employer] 16 [id number] 2021 HMO-POS 00:00:00 [facility] [id number] 2021 ADV 00:00:00 Problems Condition Condition Condition Status Onset Resolution Last Treating Co mments Source Name Details Category Date Date Treatment Clinician Date Diarrhea Diarrhea Disease Active Lilia y of of 5-24 Seybold presumed presumed 00:00: - infectious infectious 00 Ex terna origin origin l 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 ciency due 5-19 Se ybold to to 00:00: - conditions conditions 00 Ex terna classified classified l elsewhere elsewhere Chronic Chronic Disease Active Adeola kidney kidney 5-19 Seybold disease, disease, 00:00: - stage 5, stage 5, 00 Pharmacometrician a kidney kidney l failure failure Hypercoagu Hypercoagu Disease Active Adilene wright lable lable 5-19 Seybold state due state due 00:00: - to to 00 Externa longstandi longstandi l ng ng persistent persistent atrial atrial fibrillati fibrillati on on AF AF Disease Active Adeola (paroxysma (paroxysma 4-10 Se ybold l atrial l atrial 00:00: - fibrillati fibrillati 00 Ex terna on) on) l Anticoagul Anticoagul Disease Active Adilene wright ation ation 4-10 Seybold management management 00:00: - encounter encounter 00 Exte rna l Paresthesi Paresthesi Disease Active Harsha wright as - Not as - Not 9-20 Assessmen Sey bold Controlled Controlled 00:00: t & Plan: - 00 Formattin Externa g of this l note might be different from the original. 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 00:00: - eyes eyes 00 Externa l Bacteremia Bacteremia Disease Active K parrishy - - 1-20 Seybold Unchanged Unchanged 00:00: - 00 Externa l GERD GERD Disease Active 2020-10 Adeola (gastroeso (gastroeso 2-06 Se ybold phageal phageal 00:00: - reflux reflux 00 Externa disease) disease) l Hypertensi Hypertensi Disease Active Adilene wright on, on, 9-13 Seybold essential essential 00:00: - 00 Externa l Congestive Congestive Disease Active 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 Seybold failure failure 00:00: - 00 Externa l 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 7-27 Se ybold disorder, disorder, 00:00: - single single 00 Externa episode, episode, l severe severe Type 2 Type 2 Disease Active Adeola diabetes diabetes 7 Seybol d mellitus mellitus 00:00: - with stage with stage 00 Ex terna 4 chronic 4 chronic l kidney kidney disease disease GFR 15-29 GFR 15-29 Chronic Chronic Disease Active Adeola kidney kidney 7- Seybold disease, disease, 00:00: - stage IV stage IV 00 Pharmacometrician a (severe) (severe) l Hypertensi Hypertensi Disease Active Adilene wright ve heart ve heart 7 Seybol d and renal and renal 00:00: - disease disease 00 Externa with with l congestive congestive heart heart failure failure 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) 00:00: - 00 Externa l Allergies, Adverse Reactions, Alerts Allergy Allergy Status Severity Reaction(s) Onset Inactive Treating Comm ents Source Name Type Date Date Clinician No Known DA Active [facility] Clear s 00:[facility]: [place] 00 [facility] No Known DA Active [facility] Allergie 06-25 Clear s 00:00: [place] 00 [facility] Sugar-Pr Propensi Active Adeola otein-St ty to 4-11 Seybold arch adverse 00:00: - reaction 00 Externa s l Wheat Propensi Active Adeola Husk ty to 4-11 Seybold Fiber adverse 00:00: - reaction 00 Externa s l NO KNOWN Allergy Active [facility] Social History Social Habit Start Date Stop Date Quantity Comments Source Exposure to Not sure Adeola robledo SARS-CoV-2 (event) History SDOH Adeola martinez Alcohol Frequency - Exter nal History SDOH Adeola martinez Alcohol Std Drinks - Exte rnal History SDOH Adeola martinez Alcohol Binge - External Gender identity Adeola garcia - External Sexual orientation Adeola Sierra - External Tobacco use and 2023-02-23 2023-02-23 Smokeless tobacco Ke nino Sierra exposure 00:00:00 00:00:00 non-user - External Alcohol intake 2023-02-23 2023-02-23 Current drinker Lilia Sierra 00:00:00 00:00:00 of alcohol - External (finding) Alcohol Comment 2022-03-14 2022-03-14 occ. Adeola garcia 00:00:00 00:00:00 - External History of Social 2021-04-24 2021-04-24 Adeola Sierra function 00:00:00 00:00:00 - External Sex Assigned At [address] [facility] Sm[facility] Status Start Date Stop Date Source Never smoked tobacco Adeola Seyb old - External Medications Ordered Filled Start Stop Current Ordering Indication Dosage Frequency Signature Comments Components Source Medication Medication Date Date Medication? Clinician (SIG) Name Name Digoxin 125 Yes 125ug Take 1 Rob sey MCG oral 5-24 tablet Seybold Tablet 11:49: (125 mcg - 07 total) by Externa mouth l daily Cyanocobala Yes Take by Rob landis min (B-12) 5-24 mouth Seybold 1000 MCG 11:49: - oral 07 Externa Lozenge l Multiple Yes Take by Adeola Vitamins-Mi 5-24 mouth Seybold nerals (HM 11:49: - MEMORY 07 Externa COMPLEX OR) l Comfort-3 300 Yes Take by Rob sey MG oral 5-24 mouth Seybold Capsule 11:49: - 07 Externa l Cholecalcif Yes [id number] Take Rob landis som (D3 5-24 10,000 mg Seybol d MAXIMUM 11:49: by mouth - STRENGTH 07 Externa OR) l diphenhydrA Yes 25mg Apply 25 Ke lsey MINE-Zinc 5-24 mg Seybold Acetate 11:49: topically - (BENADRYL 07 Externa EX) l Methylsulfo Yes Take by Rob landis nylmethane 5-24 mouth Seybold (MSM) 1000 11:49: - MG oral 07 Externa Capsule l Multiple Yes Take by Adeola Vitamins-Mi 5-24 mouth Seybold nerals 11:49: - (ZINC OR) 07 Externa l Cefuroxime Yes 500mg Take 2 Yulissa ey Axetil 250 4-25 tablets Seybol d MG oral 00:00: (500 mg - Tablet 00 total) by Externa mouth 2 l times daily Furosemide Yes TAKE ONE Rob sey (LASIX) 20 4-25 (1) Seybold MG oral 00:00: TABLET(S) - Tablet 00 BY MOUTH Externa DAILY l NEEDED FOR SWELLING/S HORTNESS OF BREATH AND 2-3 LBS WEIGHT GAIN. Digoxin 125 Yes 125ug Take 125 K elsey MCG oral 2-08 mcg by Seybold Tablet 13:08: mouth - 23 daily Externa l Cyanocobala Yes Take by Rob landis min (B-12) 2-08 mouth Seybold 1000 MCG 13:08: - oral 23 Externa Lozenge l Multiple Yes Take by Adeola Vitamins-Mi 2-08 mouth Seybold nerals (HM 13:08: - MEMORY 23 Externa COMPLEX OR) l Comfort-3 300 0 Yes Take by Rob sey MG oral 2-08 mouth Seybold Capsule 13:08: - 23 Externa l Cholecalcif 0 Yes [id number] Take Rob sey som (D3 2-08 10,000 mg Seybol d MAXIMUM 13:08: by mouth - STRENGTH 23 Externa OR) l diphenhydrA 0 Yes 25mg Apply 25 Ke lsey MINE-Zinc 2-08 mg Seybold Acetate 13:08: topically - (BENADRYL 23 Externa EX) l Methylsulfo Yes Take by Rob landis nylmethane 2-08 mouth Seybold (MSM) 1000 13:08: - MG oral 23 Externa Capsule l Multiple Yes Take by Adeola Vitamins-Mi 2-08 mouth Seybold nerals 13:08: - (ZINC OR) 23 Externa l Digoxin 125 0 Yes 125ug Take 125 K elsey MCG oral 1-04 mcg by Seybold Tablet 12:47: mouth - 20 daily Externa l Cyanocobala Yes Take by Rob landis min (B-12) 1-04 mouth Seybold 1000 MCG 12:47: - oral 20 Externa Lozenge l Multiple Yes Take by Adeola Vitamins-Mi 1-04 mouth Seybold nerals ( 12:47: - MEMORY 20 Externa COMPLEX OR) l Comfort-3 300 0 Yes Take by Rob sey MG oral 1-04 mouth Seybold Capsule 12:47: - 20 Externa l Cholecalcif 0 Yes [id number] Take Rob sey som (D3 1-04 10,000 mg Seybol d MAXIMUM 12:47: by mouth - STRENGTH 20 Externa OR) l diphenhydrA 2022-0 Yes 25mg Apply 25 Ke lsey MINE-Zinc 1-04 mg Seybold Acetate 12:47: topically - (BENADRYL 20 Externa EX) l Methylsulfo Yes Take by Rob landis nylmethane -04 mouth Seybold (MSM) 1000 12:47: - MG oral 20 Externa Capsule l Multiple Yes Take by Adeola Vitamins-Mi 1-04 mouth Seybold nerals 12:47: - (ZINC OR) 20 Externa l Metformin Yes [id number] 500mg Take 1 K elsey HCl ER 500 1-04 tablet Seybold MG oral 00:00: (500 mg - TABLET SR 00 total) by Exter na 24 HR mouth l daily (with breakfast) Metformin Yes [id number] 500mg Take 1 K elsey HCl ER 500 1-04 tablet Seybold MG oral 00:00: (500 mg - TABLET SR 00 total) by Exter na 24 HR mouth l daily (with breakfast) Metformin Yes [id number] 500mg Take 1 K elsey HCl ER 500 1-04 tablet Seybold MG oral 00:00: (500 mg - TABLET SR 00 total) by Exter na 24 HR mouth l daily (with breakfast) Tramadol 2021-10 Yes [id number] TAKE Kelse y HCl 50 MG 2-09 ONE-HALF Seybol d oral Tablet 00:00: (10/04) - 00 TABLET(S) Externa BY MOUTH l DAILY NEEDED FOR PAIN. Tramadol 2021-10 Yes [id number] TAKE Kelse y HCl 50 MG 2-09 ONE-HALF Seybol d oral Tablet 00:00: (10/04) - 00 TABLET(S) Externa BY MOUTH l DAILY NEEDED FOR PAIN. Tramadol 2021-10 Yes [id number] TAKE Kelse y HCl 50 MG 2-09 ONE-HALF Seybol d oral Tablet 00:00: (2) - 00 TABLET(S) Externa BY MOUTH l DAILY NEEDED FOR PAIN. Pantoprazol 2021-10- No TAKE ONE K elsey e Sodium 20 11-11 (1) Seybold MG oral 00:00: 00:00 TABLET(S) - Tablet 00 :00 BY MOUTH Externa Delayed ONCE A l Response DAY. Metformin 2021-10- No [id number] TAKE ONE Adeola HCl ER 500 11-11 (1) Seybold MG oral 00:00: 00:00 TABLET(S) - TABLET SR 00 :00 BY MOUTH Pharmacometrician a 24 HR ONCE A DAY l WITH BREAKFAST. Carvedilol 2021-10 Yes 12.5mg Take 12.5 Adeola 12.5 MG 1-19 mg by Seybold oral Tablet 00:00: mouth 2 - 00 times Externa daily l Carvedilol 2021-10 Yes 12.5mg Take 12.5 Adeola 12.5 MG 1-19 mg by Seybold oral Tablet 00:00: mouth 2 - 00 times Externa daily l Carvedilol 2021-10 Yes 12.5mg Take 1 Rob sey 12.5 MG 1-19 tablet Seybold oral Tablet 00:00: (12.5 mg - 00 total) by Externa mouth 2 l times daily Spironolact 2021-10 Yes TAKE ONE Ke lsey [...] ONCE A l DAY. Continuous 2021-10- No [id number] Use device Adeola Blood Gluc 10-06 to check Seyb old Rn Production 00:00: 00:00 blood - (Dexcom G5 00 :00 sugars 3-4 Ext parul Rn Production times l Kit) does daily and not apply PRN Device Continuous 2021-10- No [id number] Patient to Adeola Blood Gluc 010-06 check Seybold Sensor 00:00: 00:00 blood - [...] Externa l Cyanocobala Yes Take by Rob landis min (B-12) 9-20 mouth Seybold 1000 MCG 14:06: - oral 51 Externa Lozenge l Multiple Yes Take by Adeola Vitamins-Mi 9-20 mouth Seybold nerals (HM 14:06: - MEMORY 51 Externa COMPLEX OR) l Comfort-3 300 Yes Take by Rob landis MG oral 9-20 mouth Seybold Capsule 14:06: - 51 Externa l diphenhydrA Yes 25mg Apply 25 Ke lsey MINE-Zinc 9-20 mg Seybold Acetate 14:06: topically - (BENADRYL 51 Externa EX) l Methylsulfo Yes Take by Rob landis nylmethane 9-20 mouth Seybold (MSM) 1000 14:06: - MG oral 51 Externa Capsule l Multiple Yes Take by Adeola Vitamins-Mi 9-20 mouth Seybold nerals 14:06: - (ZINC OR) 51 Externa l Pantoprazol Yes TAKE ONE Ke lsey e Sodium 20 8-26 (1) Seybold MG oral 00:00: TABLET(S) - Tablet 00 BY MOUTH Externa Delayed ONCE A l Response DAY. Lidocaine Yes [id number] Take 3 ml Adeola HCl 8-11 by mouth Seybold (Lidocaine 00:00: every 4-6 - Viscous 00 hours as Externa HCl) 2 % needed for l mouth/throa throat t Solution pain. Lidocaine 3- No [id number] Take 3 ml Adeola HCl 8-11 01-04 by mouth Seybold (Lidocaine 00:00: 00:00 every 4-6 - Viscous 00 :00 hours as Externa HCl) 2 % needed for l mouth/throa throat t Solution pain. Cholecalcif Yes [id number] Take Rob landis som (D3 7-18 10,000 mg Seybol d MAXIMUM 13:29: by mouth - STRENGTH 51 Externa OR) l Metformin Yes [id number] 500mg Take 1 K elsey HCl ER 500 7-18 tablet Seybold MG oral 00:00: (500 mg - TABLET SR 00 total) by Extebony andrew 24 HR mouth l daily (with breakfast) Duloxetine 2021-0 Yes [id number] 60mg Take 1 Adeloa HCl 60 MG 7-18 5 capsule Seybold oral Cap DR 00:00: (60 mg - Particles 00 total) by Exter na mouth 2 l times daily Continuous 2021-0 Yes [id number] Use as K elsey Blood Gluc 7-18 directed Seybo ld Rn Production 00:00: - (FreeStyle 00 Externa Luis Miguel 14 l Day [place]) does not apply Device Continuous 0 Yes [id number] Use as K elsey Blood Gluc 7-18 directed Seybo ld Sensor 00:00: - (FreeStyle 00 Externa Luis Miguel 14 l Day Sensor) does not apply Misc Duloxetine 0 Yes [id number] 60mg Take 1 Adeola HCl 60 MG 7-18 5 capsule Seybold oral Cap DR 00:00: (60 mg - Particles 00 total) by Exter na mouth 2 l times daily Duloxetine 2021-0 Yes [id number] 60mg Take 1 Adeola HCl 60 MG 7-18 5 capsule Seybold [address] Cap [address] 00:00: (60 mg - Particles 00 total) by Exter na mouth 2 l times daily Duloxetine 2021-0 Yes [id number] 60mg Take 1 Adeola HCl 60 MG 7-18 5 capsule Seybold [address] Cap [address] 00:00: (60 mg - Particles 00 total) by Exter na mouth 2 l times daily ACETAMINOPH 2022-0 Yes [id number] 1{tbl} Q4H Take 1 Adeola EN-CAFF-BUT 7-01 tablet by Boby bold ALBITAL 00:00: mouth - 50-325-40 00 every 4 Externa MG oral hours as l Tablet needed for pain ACETAMINOPH 2022-0 Yes [id number] 1{tbl} Q4H Take 1 Adeola EN-CAFF-BUT 7-01 tablet by Sey bold ALBITAL 00:00: mouth - 50-325-40 00 every 4 Externa MG oral hours as l Tablet needed for pain ACETAMINOPH 2022-0 Yes [id number] 1{tbl} Q4H Take 1 Adeola EN-CAFF-BUT 7-01 tablet by Setrent bold ALBITAL 00:00: mouth - 50-325-40 00 every 4 Externa MG oral hours as l Tablet needed for pain ACETAMINOPH 0 Yes [id number] 1{tbl} Q4H Take 1 Adeola EN-CAFF-BUT 7-01 tablet by Boby sorto ALBITAL 00:00: mouth - 50-325-40 00 every 4 Externa MG oral hours as l Tablet needed for pain Omeprazole 0 Yes 40mg Take 1 Kelse [...] total) by Externa Capsule mouth l daily Comfort-3-aci 0 Yes [id number] TAKE TWO Adeola d Ethyl 4-07 (2) Seybold Esters 1 g 00:00: CAPSULE(S) - oral 00 BY MOUTH Externa Capsule TWICE A l DAY. Comfort-3-aci 0 2023- No [id number] TAKE TWO Adeola d Ethyl 4-07 01-04 (2) Seybold Esters 1 g 00:00: 00:00 CAPSULE(S) - oral 00 :00 BY MOUTH Externa Capsule TWICE A l DAY. Digoxin 125 Yes 125ug Take 125 K elsey MCG oral 3-28 mcg by Seybold Tablet 13:05: mouth 35 daily Cyanocobala Yes Take by Rob landis min (B-12) 3-28 mouth Seybold 1000 MCG 13:05: oral 35 Lozenge Multiple Yes Take by Adeola Vitamins-Mi 3-28 mouth Seybold nerals (HM 13:05: MEMORY 35 COMPLEX OR) Comfort-3 300 Yes Take by Rob landis MG oral 3-28 mouth Seybold Capsule 13:05: 35 Cholecalcif Yes [id number] Take Rob landis som (D3 3-28 10,000 mg Seybol d MAXIMUM 13:05: by mouth STRENGTH 35 OR) diphenhydrA Yes 25mg Apply 25 Ke lsey MINE-Zinc 3-28 mg Seybold Acetate 13:05: topically (BENADRYL 35 EX) Methylsulfo Yes Take by Rob alamotrent nylmethane 3- mouth Seybold (MSM) 1000 13:05: MG oral 35 Capsule Multiple Yes Take by Adeola Vitamins-Mi 3-28 mouth Seybold nerals 13:05: (ZINC OR) 35 diphenhydrA Yes [id number] Apply 1 Adeola MINE HCl 2 3- applicatio Sey bold % apply 00:00: n externally 00 topically Cream 3 to 4 times daily diphenhydrA 0 Yes [id number] 25mg Take 1 Adeola MINE 3-28 tablet (25 Seybold (BENADRYL) 00:00: mg total) 25 MG oral 00 by mouth Tablet once for 1 dose diphenhydrA 0 Yes [id number] Apply 1 Adeola MINE HCl 2 3- applicatio Sey bold % apply 00:00: n - externally 00 topically Exte rna Cream 3 to 4 l times daily diphenhydrA 0 Yes [id number] 25mg Take 1 Adeola MINE 3-28 tablet (25 Seybold (BENADRYL) 00:00: mg total) - 25 MG oral 00 by mouth Exter na Tablet once for 1 l dose diphenhydrA 0 Yes [id number] Apply 1 Adeola MINE HCl 2 3-28 applicatio Sey bold % apply 00:00: n - externally 00 topically Exte rna Cream 3 to 4 l times daily diphenhydrA 0 Yes [id number] 25mg Take 1 Adeola MINE 3-28 tablet (25 Seybold (BENADRYL) 00:00: mg total) - 25 MG oral 00 by mouth Exter na Tablet once for 1 l dose diphenhydrA 0 Yes [id number] Apply 1 Adeola MINE HCl 2 3-28 applicatio Sey bold % apply 00:00: n - externally 00 topically Exte rna Cream 3 to 4 l times daily diphenhydrA Yes [id number] 25mg Take 1 Adeola MINE 3-28 tablet (25 Seybold (BENADRYL) 00:00: mg total) - 25 MG oral 00 by mouth Exter na Tablet once for 1 l dose diphenhydrA Yes [id number] Apply 1 Adeola MINE HCl 2 3-28 applicatio y bold % apply 00:00: n - externally 00 topically Exte rna Cream 3 to 4 l times daily diphenhydrA Yes [id number] 25mg Take 1 Adeola MINE 3-28 tablet (25 Seybold (BENADRYL) 00:00: mg total) - 25 MG oral 00 by mouth Exter na Tablet once for 1 l dose diphenhydrA Yes 25mg Apply 25 Ke lsey MINE-Zinc 3-04 mg Seybold Acetate 15:42: topically (BENADRYL 33 EX) Digoxin 125 Yes 125ug Take 125 K elsey MCG oral 3-04 mcg by Seybold Tablet 15:42: mouth 20 daily Cyanocobala Yes Take by Rob landis min (B-12) 3-04 mouth Seybold 1000 MCG 15:42: oral 20 Lozenge Multiple Yes Take by Adeola Vitamins-Mi 3-04 mouth Seybold nerals (HM 15:42: MEMORY 20 COMPLEX OR) Comfort-3 300 Yes Take by Rob landis MG oral 3-04 mouth Seybold Capsule 15:42: 20 Cholecalcif Yes [id number] Take Rob landis som (D3 3-04 10,000 mg Seybol d MAXIMUM 15:42: by mouth STRENGTH 20 OR) Methylsulfo Yes Take by Rob landis nylmethane 3-04 mouth Seybold (MSM) 1000 15:42: [...] Instructio Adeola Sulfate-K 3-04 n given to yb old Sulfate-Mg 00:00: patient in Sulf 00 clinic. (Suprep Use as Bowel Prep directed Kit) by 17.5-3.13-1 provider .6 GM/177ML during oral office Solution visit. Na Yes Instructio Adeola Sulfate-K 3-04 n given to yb old Sulfate-Mg 00:00: patient in - Sulf 00 clinic. Externa (Suprep Use as l Bowel Prep directed Kit) by 17.5-3.13-1 provider .6 GM/177ML during oral office Solution visit. Na Yes Instructio Adeola Sulfate-K 3-04 n given to Mitesh old Sulfate-Mg 00:00: patient in - Sulf 00 clinic. Externa (Suprep Use as l Bowel Prep directed Kit) by 17.5-3.13-1 provider .6 GM/177ML during oral office Solution visit. Na Yes Instructio Adeola Sulfate-K 3-04 n given to Mitesh old Sulfate-Mg 00:00: patient in - Sulf 00 clinic. Externa (Suprep Use as l Bowel Prep directed Kit) by 17.5-3.13-1 provider .6 GM/177ML during oral office Solution visit. Na 2022- No Instructio Adeola Sulfate-K 3-04 05-24 n given to Boby bold Sulfate-Mg 00:00: 00:00 patient in - Sulf 00 :00 clinic. Externa (Suprep Use as l Bowel Prep directed Kit) by 17.5-3.13-1 provider .6 GM/177ML during oral office Solution visit. Aspirin 81 2021-0 2021- No 81mg Take 81 mg Adeola MG oral -11-24 by mouth Seybold Chewable 14:37: 00:00 daily Tablet 43 :00 Omeprazole 2021-0 2021- No [id number] 20mg Take 20 mg Adeola 20 MG oral 11-24- by mouth Seyb old Delayed 14:32: 00:00 daily Release 11 :00 Capsule Mirabegron 2021- No Take by Rob alamoy ER 2-22 02-22 mouth Seybold (Myrbetriq) 14:30: 00:00 50 MG oral 49 :00 TABLET SR 24 HR Digoxin 125 Yes 125ug Take 125 K elsey MCG oral 2-22 mcg by Seybold Tablet 14:15: mouth 14 daily Cyanocobala Yes Take by Rob landis min (B-12) 2-22 mouth Seybold 1000 MCG 14:15: oral 14 Lozenge Multiple Yes Take by dAeola Vitamins-Mi 2-22 mouth Seybold nerals (HM 14:15: MEMORY 14 COMPLEX OR) Comfort-3 300 Yes Take by Rob landis MG oral 2-22 mouth Seybold Capsule 14:15: 14 Cholecalcif Yes [id number] Take Rob landis som (D3 2-22 10,000 mg Seybol d MAXIMUM 14:15: by mouth STRENGTH 14 OR) diphenhydrA Yes 25mg Apply 25 Ke lsey MINE-Zinc 2-22 mg Seybold Acetate 14:15: topically (BENADRYL 14 EX) Methylsulfo Yes Take by Rob landis nylmethane 2-22 mouth Seybold (MSM) 1000 14:15: MG oral 14 Capsule Multiple Yes Take by Adeola Vitamins-Mi 2-22 mouth Seybold nerals 14:15: (ZINC OR) 14 Tramadol Yes [id number] 25mg Q24H Take 0.5 K elsey HCl 50 MG 2-22 tablets Seybold oral Tablet 00:00: (25 mg 00 total) by mouth daily as needed for pain Comfort-3-aci Yes [id number] 2g Take 2 Adeola d Ethyl 2-22 capsules Seybold Esters 1 g 00:00: (2 g oral 00 total) by Capsule mouth 2 times daily Metformin Yes [id number] 500mg Take 1 K elsey HCl ER 500 2-22 tablet Seybold MG oral 00:00: (500 mg TABLET SR 00 total) by 24 HR mouth daily (with breakfast) Pantoprazol Yes [id number] 20mg Take 1 Adeola e Sodium 20 2-22 tablet (20 Se ybold MG oral 00:00: mg total) Tablet 00 by mouth Delayed daily Response Tramadol 2021-0 Yes [id number] 25mg Q24H Take 0.5 K elsey HCl 50 MG 2-22 tablets Seybold oral Tablet 00:00: (25 mg 00 total) by mouth daily as needed for pain Comfort-3-aci Yes [id number] 2g Take 2 Adeola d Ethyl 2-22 capsules Seybold Esters 1 g 00:00: (2 g oral 00 total) by Capsule mouth 2 times daily Metformin Yes [id number] 500mg Take 1 K elsey HCl ER 500 2-22 tablet Seybold MG oral 00:00: (500 mg TABLET SR 00 total) by 24 HR mouth daily (with breakfast) Pantoprazol Yes [id number] 20mg Take 1 Adeola e Sodium 20 2-22 tablet (20 Se ybold MG oral 00:00: mg total) Tablet 00 by mouth Delayed daily Response Tramadol 2021- Yes [id number] 25mg QD Take 0.5 K elsey HCl 50 MG 2-22 tablets Seybold oral Tablet 00:00: (25 mg 00 total) by mouth daily as needed for pain Comfort-3-aci Yes [id number] 2g Take 2 Adeola d Ethyl 2-22 capsules Seybold Esters 1 g 00:00: (2 g oral 00 total) by Capsule mouth 2 times daily Metformin 2021-0 Yes [id number] 500mg Take 1 K elsey HCl ER 500 2-22 tablet Seybold MG oral 00:00: (500 mg TABLET SR 00 total) by 24 HR mouth daily (with breakfast) Tramadol Yes [id number] 25mg QD Take 0.5 K elsey HCl 50 MG 2-22 tablets Seybold oral Tablet 00:00: (25 mg - 00 total) by Externa mouth l daily as needed for pain Pantoprazol 2021- No [id number] 20mg Take 1 Adeola e Sodium 20 2-22 03-28 tablet (20 S eybold MG oral 00:00: 00:00 mg total) Tablet 00 :00 by mouth Delayed daily Response Omeprazole 2021-2021- No [id number] 20mg Take 1 Adeola 20 MG oral 2-24 11- capsule Seybo ld Delayed 00:00: 00:00 (20 mg Release 00 :00 total) by Capsule mouth daily Amoxicillin 2021- No [id number] 1{tbl} Take 1 Adeola -Pot 1-11-24 tablet by Seybold Clavulanate 00:00: 00:00 mouth 2 875-125 MG 00 :00 times oral Tablet daily Aspirin 81 Yes 81mg Take 81 mg K elsey MG oral 1-20 by mouth Seybold Chewable 14:55: daily Tablet 32 Digoxin 125 Yes 125ug Take 125 K elsey MCG oral 1-20 mcg by Seybold Tablet 14:55: mouth 32 daily Cyanocobala Yes Take by Rob landis min (B-12) 1-20 mouth Seybold 1000 MCG 14:55: oral 32 Lozenge Mirabegron Yes Take by Yulissa ey ER 1-20 mouth Seybold (Myrbetriq) 14:55: 50 MG oral 32 TABLET SR 24 HR Multiple Yes Take by Adeola Vitamins-Mi 1-20 mouth Seybold nerals (HM 14:55: MEMORY 32 COMPLEX OR) Comfort-3 300 Yes Take by Rob alamoy MG oral 1-20 mouth Seybold Capsule 14:55: 32 Cholecalcif Yes [id number] Take Rob landis som (D3 1-20 10,000 mg Seybol d MAXIMUM 14:55: by mouth STRENGTH 32 OR) diphenhydrA Yes 25mg Apply 25 Ke lsey MINE-Zinc 1-20 mg Seybold Acetate 14:55: topically (BENADRYL 32 EX) Methylsulfo Yes Take by Rob landis nylmethane 1-20 mouth Seybold (MSM) 1000 14:55: MG oral 32 Capsule Multiple Yes Take by Adeola Vitamins-Mi 1-20 mouth Seybold nerals 14:55: (ZINC OR) 32 Omeprazole Yes [id number] 20mg Take 20 mg Adeola 20 MG oral 1-20 by mouth Seybo ld Delayed 14:55: daily Release 32 Capsule Vancomycin Yes [id number] TAKE 1 Ke lsey HCl 125 MG -07 CAPSULE BY Sey bold oral 00:00: MOUTH Capsule 00 EVERY 6 HOURS FOR 10 DAYS Vancomycin 2021-0 2- No [id number] TAKE 1 K elsey HCl 125 MG -07 11-24 CAPSULE BY Se ybold oral 00:00: 00:00 MOUTH Capsule 00 :00 EVERY 6 HOURS FOR 10 DAYS Sacubitril- 2021-0 2022- No 1{tbl} Take 1 K elsey Valsartan 10-08- tablet by Mitesh old 49-51 MG 09:48: 00:00 mouth 2 oral Tablet 08 :00 times daily Omeprazole 0 Yes [id number] 20mg Take 20 mg Adeola 20 MG oral 10-08 by mouth Seybo ld Delayed 09:11: daily Release 55 Capsule Aspirin 81 Yes 81mg Take 81 mg K elsey MG oral 10-08 by mouth Seybold Chewable 09:11: daily Tablet 54 Digoxin 125 0 Yes 125ug Take 125 K elsey MCG oral 1-06 mcg by Seybold Tablet 09:11: mouth 54 daily Cyanocobala Yes Take by Rob landis min (B-12) 10-08 mouth Seybold 1000 MCG 09:11: oral 54 Lozenge Mirabegron Yes Take by Yulissa ey ER 10-08 mouth Seybold (Myrbetriq) 09:11: 50 MG oral 54 TABLET SR 24 HR Multiple Yes Take by Adeola Vitamins-Mi 10-08 mouth Seybold nerals (HM 09:11: MEMORY 54 COMPLEX OR) Comfort-3 300 Yes Take by Rob alamoy MG oral -06 mouth Seybold Capsule 09:11: 54 Cholecalcif 0 Yes [id number] Take Rob landis som (D3 06 10,000 mg Seybol d MAXIMUM 09:11: by mouth STRENGTH 54 OR) diphenhydrA Yes 25mg Apply 25 Ke lsey MINE-Zinc 1-06 mg Seybold Acetate 09:11: topically (BENADRYL 54 EX) Methylsulfo Yes Take by Rob landis nylmethane 06 mouth Seybold (MSM) 1000 09:11: MG oral 54 Capsule Multiple Yes Take by Adeola Vitamins-Mi 1-06 mouth Seybold nerals 09:11: (ZINC OR) 54 Actemra 2020-10 Yes Adeola KESSLERPen 162 2-27 [...] Adeola KESSLERPen 162 2-27 Seybold MG/0.9ML 00:00: - subcutaneou 00 Externa s Solution l Auto-inject or Actemra 2020-10 Yes Adeola KESSLERPen 162 2-27 Seybold MG/0.9ML 00:00: - subcutaneou 00 Externa s Solution l Auto-inject or Actemra 2020-10 Yes Adeola KESSLERPen 162 2-27 Seybold MG/0.9ML 00:00: - subcutaneou 00 Externa s Solution l Auto-inject or Actemra 2020-10 Yes Adeola KESSLERPen 162 2-27 Seybold MG/0.9ML 00:00: - subcutaneou [...] 00 daily oral Tablet Tramadol 2020-10 Yes [id number] 25mg Q24H Take 0.5 K elsey HCl [...] lsey Valsartan 2-06 tablet by Seybo ld ([employer]) 00:00: mouth 97-103 MG 00 daily oral Tablet Tramadol 2020-10 Yes [id number] 25mg Q24H Take 0.5 K elsey HCl [...] Externa oral Tablet l Tramadol 2020-10- No [id number] 25mg Q24H Take 0.5 Adeola HCl 50 MG 2-06 -22 tablets Seybol d oral Tablet 00:00: 00:00 (25 mg 00 :00 total) by mouth daily as needed for pain Duloxetine 2020-10- No 60mg Take 1 Yulissa ey HCl 60 MG 0-14 12-06 capsule Seybol d oral Cap DR 00:00: 00:00 (60 mg Particles 00 :00 total) by mouth daily Mupirocin Yes [id number] Apply to Adeola (BACTROBAN) 9 scratch 3 Sey bold 2 % apply 00:00: times a externally 00 day. Ointment Mupirocin Yes [id number] Apply to Adeola (BACTROBAN) 9-27 scratch 3 Sey bold 2 % apply 00:00: times a externally 00 day. Ointment Mupirocin 0 Yes [id number] Apply to Adeola (BACTROBAN) 9 scratch 3 Sey bold 2 % apply 00:00: times a externally 00 day. Ointment Mupirocin Yes [id number] Apply to Adeola (BACTROBAN) 9 scratch 3 Sey bold 2 % apply 00:00: times a externally 00 day. Ointment Mupirocin 2021- No [id number] Apply to Adeola (BACTROBAN) 9 02- scratch 3 Se ybold 2 % apply [...] - Solution 00 every Externa evening l Aspirin 81 2020-0 Yes 81mg Take 81 [...] nerals (HM 13:53: MEMORY 02 COMPLEX OR) Comfort-3 300 Yes Take by Rob alamoy MG oral 8-17 mouth Seybold Capsule 13:53: 02 Cholecalcif Yes [id number] Take Rob landis som (D3 8- 10,000 mg Seybol d MAXIMUM 13:53: by mouth STRENGTH 02 OR) diphenhydrA Yes 25mg Apply 25 Ke lsey MINE-Zinc 8-17 mg Seybold Acetate 13:53: topically (BENADRYL 02 EX) Methylsulfo Yes Take by Rob landis nylmethane -17 mouth Seybold (MSM) 1000 13:53: MG oral [...] 02 daily Cyanocobala Yes Take by Rob sey min (B-12) 8-17 mouth Seybold 1000 MCG 13:53: oral 02 Lozenge Mirabegron Yes Take by Yulissa zelaya ER 8-17 mouth Seybold (Myrbetriq) 13:53: 50 MG oral 02 TABLET SR 24 HR Multiple Yes Take by Adeola Vitamins-Mi 8-17 mouth Seybold nerals (HM 13:53: MEMORY 02 COMPLEX OR) Comfort-3 300 Yes Take by Rob alamoy MG oral 8-17 mouth Seybold Capsule 13:53: 02 Cholecalcif Yes [id number] Take Rob landis som (D3 8-17 10,000 mg Seybol d MAXIMUM 13:53: by mouth STRENGTH 02 OR) diphenhydrA Yes 25mg Apply 25 Ke lsey MINE-Zinc 8-17 mg Seybold Acetate 13:53: topically (BENADRYL 02 EX) Methylsulfo Yes Take by Rob landis nylmethane 8-17 mouth Seybold (MSM) 1000 13:53: [...] mg total) 00 by mouth daily Carvedilol Yes 6.25mg Take 1 Rob sey 6.25 MG 8-17 tablet Seybold oral Tablet 00:00: (6.25 mg 00 total) by mouth 2 times daily (with meals) Spironolact 0 Yes 25mg Take 1 Yulissa ey one 25 MG 8-17 tablet (25 Seyb old oral Tablet 00:00: mg total) 00 by mouth daily Carvedilol Yes 6.25mg Take 1 Rob sey [...] mg total) 00 by mouth daily Carvedilol 1-0 Yes 6.25mg Take 1 Rob sey 6.25 MG 8-17 tablet Seybold oral Tablet 00:00: (6.25 mg 00 total) by mouth 2 times daily (with meals) Spironolact 2021-0 Yes 25mg Take 1 Yulissa ey one 25 MG 8-17 tablet (25 Seyb old oral Tablet 00:00: mg total) 00 by mouth daily Carvedilol 1-0 Yes 6.25mg Take 1 Rob sey 6.25 MG 8-17 tablet Seybold oral Tablet 00:00: (6.25 mg - 00 total) by Externa mouth 2 l times daily (with meals) Spironolact 1-0 Yes 25mg Take 1 Yulissa ey one [...] total) by mouth 2 times daily Carvedilol Yes 6.25mg Take 1 Rob sey 6.25 MG 8-17 tablet Seybold oral Tablet 00:00: (6.25 mg 00 total) by mouth 2 times daily (with meals) Spironolact Yes 25mg Take 1 Yulissa ey one 25 MG 8-17 tablet (25 Seyb old oral Tablet 00:00: mg total) 00 by mouth daily Carvedilol 2022- No 6.25mg Take 1 Ke lsey 6.25 MG 8-17 01-04 tablet Seybold oral Tablet 00:00: 00:00 (6.25 mg - 00 :00 total) by Externa mouth 2 l times daily (with meals) Sacubitril- 2020- No 1{tbl} Take 1 K elsey Valsartan 8-17 12-06 tablet by Seyb old (Entresto) 00:00: 00:00 mouth 97-103 MG 00 :00 daily oral Tablet Amiodarone 2020- No 200mg Take 1 Rob sey HCl 200 MG 8-17 12-06 tablet Seybol d oral Tablet 00:00: 00:00 [...] Tablet 00 by mouth Externa daily l Omeprazole Yes 20mg Take 20 mg K [...] 00 DAILY WITH Externa MEALS l Rosuvastati Yes TAKE 1 Yulissa ey n Calcium 6-28 TABLET BY Seybo ld 20 MG oral 00:00: MOUTH ONCE Tablet 00 DAILY WITH MEALS Rosuvastati Yes TAKE 1 Yulissa ey n Calcium 6-28 TABLET BY Seybo ld 20 MG oral 00:00: MOUTH ONCE - Tablet 00 DAILY WITH Externa MEALS l Rosuvastati Yes TAKE 1 Yulissa ey n Calcium 6-28 TABLET BY Seybo ld 20 MG oral 00:00: MOUTH ONCE - Tablet 00 DAILY WITH Externa MEALS l Rosuvastati Yes TAKE 1 Yulissa ey n Calcium 6-28 TABLET BY Seybo ld 20 MG oral 00:00: MOUTH ONCE - Tablet 00 DAILY WITH Externa MEALS l Omeprazole Yes 20mg Take 20 mg K elsey 20 MG oral 6-28 by mouth Seybo ld Delayed 00:00: daily Release 00 Capsule Rosuvastati Yes TAKE 1 Yulissa ey n Calcium 6-28 TABLET BY Seybo ld 20 MG oral 00:00: MOUTH ONCE Tablet 00 DAILY WITH MEALS Omeprazole 2021- No 20mg Take 20 mg Adeola 20 MG oral 6-28 11-24 by mouth Seyb old Delayed 00:00: 00:00 daily Release 00 :00 Capsule Vital Signs Vital Name Observation Time Observation Value Comments Source Systolic blood 2023-02-23 16:42:00 137 mm[Hg] Adeola Alamoybold - pressure External Diastolic blood 2023-02-23 16:42:00 83 mm[Hg] Robse y Seybold - pressure External Heart rate 2023-02-23 16:35:00 58 /min Adeola Cárdenas eybold - External Body temperature 2023-02-23 16:35:00 36.17 Erika Yulissa zelaya Seybold - External Respiratory rate 2023-02-23 16:35:00 18 /min Yulissa ey Seybold - External Body height 2023-02-23 16:35:00 152.4 cm Adeola Cárdenas eybold - External Body weight 2023-02-23 16:35:00 88.542 kg Adeola Cárdenas eybold - External BMI 2023-02-23 16:35:00 38.12 kg/m2 Adeola Cárdenas eybold - External Oxygen saturation in 2023-02-23 16:35:00 99 /min Adeola Sierra - Arterial blood by External Pulse oximetry Systolic blood 2022-11-10 19:07:00 134 mm[Hg] Adeola Seybold - pressure External Diastolic blood 2022-11-10 19:07:00 69 mm[Hg] Lilia y Seybold - pressure External Heart rate 2022-11-10 19:07:00 59 /min Adeola Cárdenas eybold - External Body temperature 2022-11-10 19:07:00 36.5 Erika Yulissa zelaya Seybold - External Respiratory rate 2022-11-10 19:07:00 18 /min Yulissa zelaya Seybold - External Body height 2022-11-10 19:07:00 152.4 cm Adeola Cárdenas eybold - External Body weight 2022-11-10 19:07:00 88.451 kg Adeola Cárdenas eybold - External BMI 2022-11-10 19:07:00 38.08 kg/m2 Adeola Cárdenas eybold - External HEIGHT 2022-11-08 15:02:00 152.4 cm WEIGHT 2022-11-08 15:02:00 83.915 kg HEIGHT 2022-11-08 15:02:00 152.4 cm WEIGHT 2022-11-08 15:02:00 83.915 kg HEIGHT 2022-11-08 15:02:00 152.4 cm WEIGHT 2022-11-08 15:02:00 83.915 kg Systolic blood 2022-10-06 18:42:00 144 mm[Hg] Adeola Seybold - pressure External Diastolic blood 2022-10-06 18:42:00 70 mm[Hg] Kelse y Seybold - pressure External Heart rate 2022-10-06 18:42:00 84 /min Adeola S eybold - External Body temperature 2022-10-06 18:42:00 36.17 Erika Yulissa ey Seybold - External Respiratory rate 2022-10-06 18:42:00 16 /min Yulissa ey Seybold - External Body height 2022-10-06 18:42:00 152.4 cm Adeola S eybold - External Body weight 2022-10-06 18:42:00 88.451 kg Adeola S eybold - External BMI 2022-10-06 18:42:00 38.08 kg/m2 Aedola S eybold - External Systolic blood 2022-06-22 18:55:00 146 mm[Hg] Adeola Seybold - pressure External Diastolic blood 2022-06-22 18:55:00 79 mm[Hg] Robse y Seybold - pressure External Heart rate 2022-06-22 18:55:00 66 /min Adeola S eybold - External Body temperature 2022-06-22 18:55:00 36.5 Erika Yulissa ey Seybold - External Respiratory rate 2022-06-22 18:55:00 18 /min Yulissa ey Seybold - External Body height 2022-06-22 18:55:00 152.4 cm Adeola S eybold - External Body weight 2022-06-22 18:55:00 84.823 kg Adeola S eybold - External BMI 2022-06-22 18:55:00 36.52 [...] saturation in 2021-12-04 21:41:00 100 /min Adeola Alamoybold Arterial blood by Pulse oximetry Systolic blood [...] saturation in 2021-10-22 16:35:00 100 /min Adeola Alamoybold Arterial blood by Pulse oximetry Systolic blood [...] Heart rate 2021-09-07 17:02:00 78 /min Adeola S eybold Body temperature 2021-09-07 17:02:00 36.44 Erika Yulissa ey Seybold Body weight 2021-09-07 17:02:00 78.926 kg Adeola S eybold BMI 2021-09-07 17:02:00 33.98 kg/m2 Adoela zelayabold Systolic blood 2021-06-29 18:45:00 116 mm[Hg] Adeola Seybold pressure Diastolic blood 2021-06-29 18:45:00 64 mm[Hg] Kelse y Seybold pressure Heart rate 2021-06-29 18:45:00 59 /min Adeola zelayabojuan Body temperature 2021-06-29 18:45:00 36.5 Erika Yulissa zelaya Seybold Respiratory rate 2021-06-29 18:45:00 14 /min Yulissa zelaya Seybold Body height 2021-06-29 18:45:00 152.4 cm Adeola zelayabold Body weight 2021-06-29 18:45:00 80.559 kg Adeola zelayabojuan BMI 2021-06-29 18:45:00 34.69 kg/m2 Adeola zelayabold Oxygen saturation in 2021-06-29 18:45:00 97 /min Adeola Sierra Arterial blood by Pulse oximetry Systolic blood 2022-11-08 17:02:00 136 mm[Hg] [facility] Diastolic blood 2022-11-08 17:02:00 65 mm[Hg] [facility] Heart rate 2022-11-08 17:02:00 55 /min [facility] Respiratory rate 2022-11-08 17:02:00 18 /min [facility] Oxygen saturation in 2022-11-08 17:02:00 99 /min [facility] Arterial blood by Medical Ce nter Pulse oximetry BMI 2022-11-08 15:02:00 36.13 kg/m2 [facility] Body temperature 2022-11-08 15:02:00 37 Erika [facility] Body height 2022-11-08 15:02:00 152.4 cm [facility] Body weight 2022-11-08 15:02:00 83.915 kg [facility] Procedures Procedure Date / Time Performed Performing Clinician [facility] e MR BRAIN WITH & WITHOUT 2022-11-08 16:58:00 Pollo English [facility] IV CONTRAST [facility] XR CHEST 2 VIEWS 2022-11-08 13:23:00 Richard Vazquez [facility] [place] [facility] ARRYTHMIA IMPLANT 2022-11-08 00:00:00 Provider, Leyla [facility] REPORT - SCAN Scanning [facility] CBC WITH 2021-11-24 21:06:00 Colleen Brown DIFFERENTIAL/PLATELET MAGNESIUM, SERUM 2021-11-24 21:06:00 Colleen Brown EXTERNAL IMAGING 2021-09-07 19:23:00 Vira Hyde URINALYSIS, ROUTINE 2021-06-29 20:12:00 Colleen Brownbojuan BASIC METABOLIC PANEL 2021-06-29 20:12:00 Colleen Brown (8) MICROSCOPIC EXAMINATION 2021-06-29 20:12:00 Colleen Brown Plan of Care Planned Activity Planned Date Details Comments Source Future Scheduled 2023-06-03 Influenza Vaccine (#1) [facility] 00:00:00 [code = Influenza Medical Ce nter Vaccine (#1)] Future Scheduled 2023-06-[address] [facility] 00:00:00 (Season Ended) [code = [facility] INFLUENZA VACCINE (Season Ended)] Future Scheduled 2022-10-[address] [facility] 00:00:00 (12+) [code = [facility] Center DEPRESSION SCREENING (12+)] Future Scheduled 2022-10-03 FALLS RISK SCREENING [facility] 00:00:00 [code = FALLS RISK Medical C enter SCREENING] Future Scheduled 2022-10-[address] [...] FIRST YEAR if no IPPE)] Future Scheduled 2022-04-[address] [facility] 00:00:00 WELLNESS (YEAR 2 or Medical Center FIRST YEAR if no IPPE) [code = MEDICARE ANNUAL WELLNESS (YEAR 2 or FIRST YEAR if no IPPE)] Future Scheduled 2010 PNEUMOCOCCAL 65+ YRS [facility] 00:00:00 (1 - PCV) [code = Medical Ce nter PNEUMOCOCCAL 65+ YRS (1 - PCV)] Future Scheduled 2010 PNEUMOCOCCAL 65+ YRS [facility] 00:00:00 (1 - PCV) [code = Medical Ce nter PNEUMOCOCCAL 65+ YRS (1 - PCV)] Future Scheduled 1995 SHINGLES VACCINES ([address] [facility] 00:00:00 of 2) [code = SHINGLES Medic al Center VACCINES (1 of 2)] Future Scheduled 1995 SHINGLES VACCINES ([address] [facility] 00:00:00 of 2) [code = SHINGLES Medic al Center VACCINES (1 of 2)] Future Scheduled 1964 DTAP/TDAP/TD VACCINES [facility] 00:00:00 (1 - Tdap) [code = Medical C enter DTAP/TDAP/TD VACCINES (1 - Tdap)] Future Scheduled 1964 DTAP/TDAP/TD VACCINES [facility] 00:00:00 (1 - Tdap) [code = Medical C enter DTAP/TDAP/TD VACCINES (1 - Tdap)] Future Scheduled 1963 HEPATITIS C SCRE[facility]ING [facility] 00:00:00 [code = HEPATITIS C Medical Center SCREENING] Future Scheduled 1963 HEPATITIS C [facility]CRE[facility]ING [facility] 00:00:00 [code = HEPATITIS C Medical Center SCREENING] Future Scheduled [address] [facility] 00:00:00 Counseling and Medical Cente r Screening (12+) [code = Tobacco Cessation Counseling and Screening (12+)] Future Scheduled [address] [facility] 00:00:00 Counseling and Medical Cente r Screening (12+) [code = Tobacco Cessation Counseling and Screening (12+)] Future Scheduled 1946-03-10 COVID-19 VACCINE (#1) [facility] 00:00:00 [code = COVID-[address] VACCINE (#1)] Future Scheduled 1946-03-10 COVID-19 VACCINE (#1) [facility] 00:00:00 [code = COVID-[address] VACCINE (#1)] Future Scheduled 1945 DXA SCAN [code = DXA [facility] 00:00:00 SCAN] [facility] Center Future Scheduled 1945 DXA SCAN [code = DXA [facility] 00:00:00 SCAN] [facility] Center Encounters Start End Encounter Admission Attending Care Care Encounter Source Date/Time Date/Time Type Type Clinicians Facility Department ID 2023-06-09 2023-06-09 Outpatient DANIEL MCKEON [id number] Ade[facility] 14:15:00 14:15:00 Seybol d 2023-06-02 2023-06-02 Outpatient JUAN MALONEY [id number] Ade[facility] 00:00:00 00:00:00 Seybol d 2023-06-01 2023-06-01 Outpatient ADEOLA RINCON [id number] [facility] 00:00:00 00:00:00 Seybol d 2023-05-20 2023-05-20 Outpatient ADEOLA BROWN [id number] [facility] 00:00:00 00:00:00 COLLEEN Seybol d 2023-04-28 2023-04-28 Outpatient DANIEL MCKEON [id number] [facility] 10:45:00 10:45:00 Seybol d 2023-04-27 2023-04-27 Outpatient ADEOLA ANDERSON [id number] [facility] 00:00:00 00:00:00 MICHAEL Seybol d 2023-04-12 2023-04-12 Outpatient ADEOLA BROWN [id number] [facility] 00:00:00 00:00:00 COLLEEN Seybol d 2023-04-01 2023-04-01 Outpatient ADEOLA MCCONNELL [id number] [facility] 13:15:00 13:15:00 PATSY Seybol d 2023-03-31 2023-03-31 Outpatient ADEOLA ANDERSON [id number] [facility] 00:00:00 00:00:00 MICHAEL Seybol d 2023-03-25 2023-03-25 Outpatient ADEOLA ANDERSON [id number] Adeola 00:00:00 00:00:00 MICHAEL Seybol d 2023-03-25 2023-03-25 Outpatient DEEPAK DELONG ADEOLA RINCON [id number] Ade[facility] 00:00:00 00:00:00 Seybol d 2023-03-24 2023-03-24 Outpatient ADEOLA RINCON [id number] Ade[facility] 00:00:00 00:00:00 Seybol d 2023-03-21 2023-03-21 Outpatient DANIEL MCKEON ADEOLA RINCON [id number] Ade[facility] 14:45:00 14:45:00 Seybol d 2023-02-23 2023-02-23 Outpatient LAB90 ADEOLA RINCON [id number] Adeola 12:15:00 12:15:00 Seybol d 2023-02-23 2023-02-23 Outpatient MONICA ADEOLA RINCON [id number] [facility] 11:30:00 11:30:00 MICHAEL Seybol d 2023-02-18 2023-02-18 Outpatient KEVIN, ADEOLA RINCON [id number] [facility] 14:00:00 14:00:00 COLLEEN Seybol d 2023-02-10 2023-02-10 Outpatient LAB90 ADEOLA RINCON [id number] Adeloa 13:10:00 13:10:00 Seybol d 2023-02-09 2023-02-09 Outpatient ADEOLA RINCON [id number] [facility] 00:00:00 00:00:00 Seybol d 2023-02-08 2023-02-08 Outpatient LUISMelia ADEOLA RINCON [id number] [facility] 00:00:00 00:00:00 MICHAEL Seybol d 2023-02-07 2023-02-07 Outpatient LAB90 ADEOLA RINCON [id number] [facility] 11:05:00 11:05:00 Seybol d 2023-02-07 2023-02-07 Outpatient ADEOLA GOLDEN [id number] [facility] 08:15:00 08:15:00 UMAEILEEN Landis bold 2023-02-04 2023-02-04 Outpatient LAB90 ADEOLA RINCON [id number] Ade[facility] 12:05:00 12:05:00 Seybol d 2023-02-03 2023-02-03 Outpatient CHANTEL ADEOLA RINCON [id number] [facility] 00:00:00 00:00:00 UMA Sey bold 2023-02-03 2023-02-03 Outpatient KEVIN ADEOLA RINCON [id number] Ade[facility] 00:00:00 00:00:00 COLLEEN Seybol d 2023-02-02 2023-02-02 Outpatient LAB90 ADEOLA RINCON [id number] Ade[facility] 14:20:00 14:20:00 Seybol d 2023-01-31 2023-01-31 Outpatient ADEOLA HUTTON [id number] Ade[facility] 00:00:00 00:00:00 SHANEIKA Seybo ld 2023-01-31 2023-01-31 Outpatient ADEOLA RINCON [id number] [facility] 00:00:00 00:00:00 Seybol d 2023-01-31 2023-01-31 Outpatient ADEOLA BROWN [id number] [facility] 00:00:00 00:00:00 COLLEEN Seybol d 2023-01-27 2023-01-27 Outpatient ADEOLA RINCON [id number] [facility] 00:00:00 00:00:00 Seybol d 2023-01-26 2023-01-26 Outpatient CHANTEL ADEOLA RINCON [id number] Ade[facility] 10:55:00 10:55:00 UMA Landis bold 2023-01-26 2023-01-26 Outpatient ADEOLA HDYE [id number] [facility] 00:00:00 00:00:00 VIRA Seybol d 2023-01-26 2023-01-26 Outpatient KEVIN ADEOLA RINCON [id number] [facility] 00:00:00 00:00:00 COLLEEN Seybol d 2023-01-26 2023-01-26 Outpatient ADEOLA RINCON [id number] [facility] 00:00:00 00:00:00 Seybol d 2023-01-25 2023-01-25 Outpatient ADEOLA HYDE [id number] [facility] 00:00:00 00:00:00 VIRA Seybol d 2023-01-25 2023-01-25 Outpatient ADEOLA SOLIS [id number] [facility] 00:00:00 00:00:00 CRYSTAL Seybol d 2023-01-25 2023-01-25 Outpatient ADEOLA RINCON [id number] [facility] 00:00:00 00:00:00 Seybol d 2023-01-24 2023-01-24 Outpatient ADEOLA BROWN [id number] [facility] 00:00:00 00:00:00 COLLEEN Seybol d 2023-01-14 2023-01-14 Outpatient TIEDANIEL [id number] [facility] 00:00:00 00:00:00 Seybol d 2023-01-07 2023-01-07 Outpatient ADEOLA CÁRDENAS [id number] [facility] 00:00:00 00:00:00 RASHNO Seybol d 2023-01-03 2023-01-03 Outpatient ADEOLA HYDE [id number] [facility] 00:00:00 00:00:00 VIRA Seybol d 2022-12-17 2022-12-17 Outpatient LAB90 ADEOLA RINCON [id number] [facility] 13:45:00 13:45:00 Seybol d 2022-12-03 2022-12-03 Outpatient ADEOLA BROWN [id number] [facility] 00:00:00 00:00:00 COLLEEN Seybol d 2022-11-10 2022-11-10 Outpatient OU, ADEOLA RINCON [id number] [facility] 13:00:00 13:00:00 POLLO Seyb old 2022-11-08 2022-11-08 Outpatient EL OU, [facility] [id number] [facility] 11:09:28 23:59:00 POLLO 2022-11-08 2022-11-08 [facility], [facility] [id number] 11:09:28 23:59:00 Encounter [facility] 2022-11-08 2022-11-08 [facility], [facility] [id number] 11:09:28 23:59:00 Encounter [facility] 2022-11-02 2022-11-02 Outpatient EL OU, [facility] [id number] [facility] 00:00:00 00:00:00 POLLO 2022-10-26 2022-10-26 Outpatient OU, ADEOLA RINCON [id number] [facility] 11:00:00 11:00:00 POLLO Seyb old 2022-10-18 2022-10-18 Outpatient EL OU, [facility] [id number] [facility] 00:00:00 00:00:00 POLLO 2022-10-13 2022-10-13 Outpatient OU, ADEOLA RINCON [id number] [facility] 11:00:00 11:00:00 POLLO Seyb old 2022-10-06 2022-10-06 Outpatient LAB90 ADEOLA RINCON [id number] [facility] 13:45:00 13:45:00 Seybol d 2022-10-06 2022-10-06 Outpatient HUNDL, ADEOLA RINCON [id number] [facility] 13:00:00 13:00:00 COLLEEN Seybol d 2022-10-06 2022-10-06 Outpatient HUNDL, ADEOLA RINCON [id number] [facility] 00:00:00 00:00:00 COLLEEN Seybol d 2022-10-01 2022-10-01 Outpatient EL OU, [facility] [id number] [facility] 00:00:00 00:00:00 POLLO 2022-09-30 2022-09-30 Outpatient HUNDL, ADEOLA RINCON [id number] [facility] 00:00:00 00:00:00 COLLEEN Seybol d 2022-09-15 2022-09-15 Outpatient OU, ADEOLA RINCON [id number] [facility] 14:00:00 14:00:00 POLLO Seyb old 2022 2022 Outpatient HUNDL, ADEOLA RINCON [id number] [facility] 00:00:00 00:00:00 COLLEEN Seybol d 2022 2022 Outside Ou, [facility] [id number] [facility] 00:00:00 00:00:00 [facility] 2022 2022 Outside , [facility] [id number] 00:00:00 00:00:00 [facility] 2022-08-23 2022-08-23 Outpatient KEVIN, ADEOLA RINCON [id number] [facility] 00:00:00 00:00:00 COLLEEN Seybol d 2022-08-12 2022-08-12 Outpatient ADEOLA HYDE [id number] [facility] 00:00:00 00:00:00 VIRA Seybol d 2022-07-28 2022-07-28 Outpatient LORELEIKELSEYONAmita RINCON [id number] [place] 00:00:00 00:00:00 MD MURRAY Seybol d 2022-07-23 2022-07-23 Outpatient OU, ADEOLA RINCON [id number] [place] 00:00:00 00:00:00 POLLO Seyb old 2022-07-20 2022-07-20 Outpatient HUNDL, ADEOLA RINCON [id number] [place] 00:00:00 00:00:00 COLLEEN Seybol d 2022-07-20 2022-07-20 Outpatient HUNDL, ADEOLA RINCON [id number] [place] 00:00:00 00:00:00 COLLEEN Seybol d 2022-07-06 2022-07-06 Outpatient LAB90 ADEOLA RINCON [id number] [place] 14:00:00 14:00:00 Seybol d 2022-06-22 2022-06-22 Outpatient LAB47 ADEOLA RINCON [id number] [place] 15:30:00 15:30:00 Seybol d 2022-06-22 2022-06-22 Outpatient OU, ADEOLA RINCON [id number] [place] 14:30:00 14:30:00 POLLO Seyb old 2022-06-10 2022-06-10 Outpatient HUNDL, ADEOLA RINCON [id number] [place] 00:00:00 00:00:00 COLLEEN Seybol d 2022-05-13 2022-05-13 Outpatient HUNDL, ADEOLA RINCON [id number] [place] 00:00:00 00:00:00 COLLEEN Seybol d 2022-05-13 2022-05-13 Outpatient HUNDL, ADEOLA RINCON [id number] [place] 00:00:00 00:00:00 COLLEEN Seybol d 2022-04-21 2022-04-21 Outpatient KEVIN ADEOLA RINCON [id number] [place] 00:00:00 00:00:00 COLLEEN Seybol d 2022-04-19 2022-04-19 Office Facundo Brown [id number] [place] 13:00:00 14:00:00 Visit Colleen Hood [id number] jose [id number] 2022-04-06 2022-04-06 Outpatient ADEOLA HYDE [id number] [place] 00:00:00 00:00:00 VIRA Seybol d 2022-04-02 2022-04-02 Outpatient ADEOLA BROWN [id number] [place] 00:00:00 00:00:00 COLLEEN Seybol d 2022-03-18 2022-03-18 Outpatient BALJEET DEEPAK RINCON [id number] [place] 11:00:00 11:00:00 Seybol d 2022-03-17 2022-03-17 Outpatient ADEOLA RECIO [id number] [place] 00:00:00 00:00:00 LETY Sagastumeo ld 2022-03-15 2022-03-15 Outpatient BALJEET DEEPAK RINCON [id number] [place] 00:00:00 00:00:00 Seybol d 2022-03-04 2022-03-04 Outpatient BALJEET DEEPAK RINCON [id number] [place] 00:00:00 00:00:00 Seybol d 2022-02-25 2022-02-25 Outpatient LAB90 ADEOLA RINCON [id number] [place] 14:30:00 14:30:00 Seybol d 2022-02-25 2022-02-25 Outpatient ADEOLA BROWN [id number] [place] 00:00:00 00:00:00 COLLEEN Seybol d 2022-02-25 2022-02-25 Outpatient ADEOLA BROWN [id number] [place] 00:00:00 00:00:00 COLLEEN Seybol d 2022-02-15 2022-02-15 Outpatient KATHERINE, FACUNDO ADEOLA RINCON [id number] [place] 10:00:00 10:00:00 Seybol d 2022-02-15 2022-02-15 Outpatient KEVIN ADEOLA ADEOLA [id number] [place] 10:00:00 10:00:00 COLLEEN Seybol d 2022-02-13 2022-02-13 Outpatient SWAB, CK ADEOLA RINCON [id number] [place] 11:20:00 11:20:00 Seybol d 2022-02-01 2022-02-01 Outpatient ADEOLA HYDE [id number] [place] 00:00:00 00:00:00 VIRA Seybol d 2022-01-27 2022-01-27 Outpatient LAB90 ADEOLA RICNON [id number] [place] 14:45:00 14:45:00 Seybol d 2022-01-25 2022-01-25 Outpatient LAB90 ADEOLA RINCON [id number] [place] 14:55:00 14:55:00 Seybol d 2022-01-25 2022-01-25 Outpatient KEVIN ADEOLA RINCON [id number] [place] 00:00:00 00:00:00 COLLEEN Seybol d 2022-01-11 2022-01-11 Outpatient KEVIN ADEOLA RINCON [id number] [place] 00:00:00 00:00:00 COLLEEN Seybol d 2022-01-08 2022-01-08 Outpatient LAB90 ADEOLA RINCON [id number] [place] 10:55:00 10:55:00 Seybol d 2022-01-08 2022-01-08 Outpatient KEVIN A[facility]OLA RINCON [id number] [place] 00:00:00 00:00:00 COLLEEN Seybol d 2021-12-28 2021-12-28 Office LilaFacundo galo [id number] [place] 13:00:00 14:00:00 Visit Colleen Hood 350.1.13.13 Se ybold 1.2.7.2.686 [id number] 2021-12-24 2021-12-24 Outpatient LAB90 ADEOLA RINCON [id number] [place] 10:55:00 10:55:00 Seybol d 2021-12-15 2021-12-15 Outpatient ADEOLA RINCON [id number] [place] 00:00:00 00:00:00 Seybol d 2021-12-15 2021-12-15 Outpatient DEEPAK DELONG [facility] RINCON [id number] [place] 00:00:00 00:00:00 Seybol d 2021-12-04 2021-12-04 Office Baljeet, Edepak OG 1.2.840.114 [id number] [place] 16:40:00 17:00:00 Visit 350.1.13.13 Se ybold 1.2.7.2.686 [id number] 2021-12-04 2021-12-04 Outpatient DEEPAK DELONG A[facility]A RINCON [id number] [place] 13:20:00 13:20:00 Seybol d 2021-12-04 2021-12-04 Outpatient DEEPAK DELONG ADOELA RINCON [id number] [place] 00:00:00 00:00:00 Seybol d 2021-12-02 2021-12-02 Outpatient LILAAmita ADEOLA RINCON [id number] [place] 00:00:00 00:00:00 COLLEEN Seybol d 2021-12-02 2021-12-02 Outpatient ADEOLA BROWN [id number] [place] 00:00:00 00:00:00 COLLEEN Seybol d 2021-11-25 2021-11-25 Outpatient ADEOLA NAGY [id number] [place] 00:00:00 00:00:00 MUHAMMED Seybo ld 2021-11-24 2021-11-24 Outpatient LAB90 ADEOLA RINCON [id number] [place] 15:05:00 15:05:00 Seybol d 2021-11-24 2021-11-24 Office Faucndo Brown 1.2.840.114 [id number] [place] 14:00:00 14:30:00 Visit Colleen Hood 350.1.13.13 Se ybold 1.2.7.2.686 [id number] 2021-11-20 2021-11-20 Outpatient ADEOLA HYDE [id number] [place] 00:00:00 00:00:00 VIRA Seybol d 2021-11-18 2021-11-18 Outpatient KEVIN ADEOLA RINCON [id number] [place] 00:00:00 00:00:00 COLLEEN Seybol d 2021-11-16 2021-11-16 Outpatient LAB90 ADEOLA RINCON [id number] [place] 14:25:00 14:25:00 Seybol d 2021-11-16 2021-11-16 Outpatient LILAL, ADEOLA RINCON [id number] [place] 00:00:00 00:00:00 COLLEEN Seybol d 2021-11-13 2021-11-13 Outpatient KEVIN, ADEOLA RINCON [id number] [place] 00:00:00 00:00:00 COLLEEN Seybol d 2021-11-13 2021-11-13 Outpatient KEVIN ADEOLA RINCON [id number] [place] 00:00:00 00:00:00 COLLEEN Seybol d 2021-11-13 2021-11-13 Outpatient LILAL, ADEOLA RINCON [id number] [place] 00:00:00 00:00:00 COLLEEN Seybol d 2021-11-05 2021-11-05 Outpatient KEVIN ADE[facility]A RINCON [id number] [place] 00:00:00 00:00:00 COLLEEN Seybol d 2021-11-03 2021-11-03 Outpatient ADEOLA RINCON [id number] [place] 09:45:00 09:45:00 Seybol d 2021-10-30 2021-10-30 Outpatient LAB90 ADEOLA RINCON [id number] [place] 11:40:00 11:40:00 Seybol d 2021-10-30 2021-10-30 Outpatient KEVIN, ADEOLA RINCON [id number] [place] 00:00:00 00:00:00 COLLEEN Seybol d 2021-10-30 2021-10-30 Outpatient KEVIN ADEOLA RINCON [id number] [place] 00:00:00 00:00:00 COLLEEN Seybol d 2021-10-29 2021-10-29 Outpatient ADEOLA HYDE [id number] [place] 00:00:00 00:00:00 VIRA Seybol d 2021-10-29 2021-10-29 Outpatient LILAAmita [facility]A RINCON [id number] [place] 00:00:00 00:00:00 COLLEEN Seybol d 2021-10-28 2021-10-28 Outpatient ADEOLA RINCON [id number] [place] 00:00:00 00:00:00 Seybol d 2021-10-28 2021-10-28 Outpatient SHAKIRA-LATI [facility]INCON [id number] [place] 00:00:00 00:00:00 ALISA, Seybol d DMITRY 2021-10-27 2021-10-27 Outpatient LILAAmita A[facility]A RINCON [id number] [place] 00:00:00 00:00:00 COLLEEN Seybol d 2021-10-27 2021-10-27 Outpatient KEVIN ADE[facility]A RINCON [id number] [place] 00:00:00 00:00:00 COLLEEN Seybol d 2021-10-26 2021-10-26 Outpatient ADEOLA RINCON [id number] [place] 00:00:00 00:00:00 Seybol d 2021-10-23 2021-10-23 Outpatient LAB90 ADEOLA RINCON [id number] [place] 10:30:00 10:30:00 Seybol d 2021-10-22 2021-10-22 Outpatient LAB90 ADEOLA RINCON [id number] [place] 11:50:00 11:50:00 Seybol d 2021-10-22 2021-10-22 Office KevinFacundo 1.2.840.114 [id number] [place] 10:30:00 11:30:00 Visit Colleen Hood 350.1.13.13 Se ybold 1.2.7.2.686 [id number] 2021-10-22 2021-10-22 Outpatient ADEOLA RINCON [id number] [place] 00:00:00 00:00:00 Seybol d 2021-10-22 2021-10-22 Outpatient LILAAmita A[facility]A RINCON [id number] [place] 00:00:00 00:00:00 COLLEEN Seybol d 2021-10-13 2021-10-13 Outpatient ADEOLA HYDE [id number] [place] 00:00:00 00:00:00 VIRA Seybol d 2021-10-12 2021-10-12 Outpatient JOSIAH [facility] RINCON [id number] [place] 00:00:00 00:00:00 DESIREE Seybol d 2021-10-12 2021-10-12 Outpatient ADEOLA RINCON [id number] [place] 00:00:00 00:00:00 Seybol d 2021-10-12 2021-10-12 Outpatient ADEOLA RINCON [id number] [place] 00:00:00 00:00:00 Seybol d 2021-10-09 2021-10-09 Outpatient ADEOLA HYDE [id number] [place] 00:00:00 00:00:00 VIRA Seybol d 2021-10-08 2021-10-08 Office Facundo BROWN 1.2.840.114 [id number] [place] 09:30:00 09:30:00 Visit COLLEEN Hood 350.1.13.13 Se ybold 1.2.7.2.686 [id number] 2021-10-07 2021-10-07 Outpatient ADEOLA HYDE [id number] [place] 00:00:00 00:00:00 VIRA Seybol d 2021-09-30 2021-09-30 Outpatient JOSIAHSAYRA [facility]A RINCON [id number] [place] 11:45:00 11:45:00 Seybol d 2021-09-07 2021-09-07 Outpatient LAB90 ADEOLA RINCON [id number] [place] 11:55:00 11:55:00 Seybol d 2021-09-07 2021-09-07 Office Facundo Hyde 1.2.840.114 [id number] [place] 11:00:00 11:30:00 Visit Vira Hood 350.1.13.13 Se ybold Somogyi 1.2.7.2.686 [id number] 2021-09-07 2021-09-07 Outpatient ADEOLA HYED [id number] [place] 00:00:00 00:00:00 VIRA Seybol d 2021-09-07 2021-09-07 Outpatient ADEOLA RINCON [id number] [place] 00:00:00 00:00:00 Seybol d 2021-07-06 2021-07-06 Outpatient ADEOLA HYDE [id number] [place] 00:00:00 00:00:00 VIRA Seybol d 2021-06-29 2021-06-29 Outpatient LAB90 ADEOLA RINCON [id number] [place] 15:10:00 15:10:00 Seybol d 2021-06-29 2021-06-29 Office LilaFacundo galo 1.2.840.114 [id number] [place] 13:31:37 14:01:37 Visit Colleen Hood 350.1.13.13 jose 1.2.7.2.686 [id number] 2021-06-22 2021-06-22 Outpatient SAYRA RAHMAN [id number] [place] 15:30:00 15:30:00 Seybol d 2021-05-27 2021-05-27 Outpatient ADEOLA HYDE [id number] [place] 00:00:00 00:00:00 VIRA Seybol d 2021-05-21 2021-05-21 Outpatient ADEOLA BEARD [id number] [place] 00:00:00 00:00:00 ELYSSA Seybo ld 2021-05-20 2021-05-20 Outpatient JENNY RINCON [id number] [place] 15:00:00 15:00:00 , AICHA Seybo ld 2021-05-19 2021-05-19 Outpatient ADEOLA HYDE [id number] [place] 14:00:00 14:00:00 VIRA Seybol d 2021-05-16 2021-05-16 Emergency EM ADILENE Claire [id number] [facility] 14:15:00 18:21:00 Beau 04 [facility] 2021-05-16 2021-05-16 Outpatient ADEOLA CRAWFORD [id number] [place] 13:00:00 13:00:00 JOBY Seybol d 2021-05-08 2021-05-08 Outpatient BARRETTADEOLA [id number] [place] 00:00:00 00:00:00 VIRA Seybol d 2021-05-07 2021-05-07 Outpatient ADEOLA RINCON [id number] [place] 15:00:00 15:00:00 Seybol d 2021-04-30 2021-04-30 Outpatient ADEOLA BEARD [id number] [place] 00:00:00 00:00:00 JAYLIN Seybol d 2021-04-29 2021-04-29 Outpatient LAB90 ADEOLA RINCON [id number] [place] 13:35:00 13:35:00 Seybol d 2021-04-28 2021-04-28 Outpatient ADEOLA BEARD [id number] [place] 09:30:00 09:30:00 JAYLIN Seybol d 2021-04-28 2021-04-28 Outpatient DEEPAK DELOGN [id number] [place] 00:00:00 00:00:00 Seybol d 2021-04-24 2021-04-24 Outpatient LAB47 ADEOLA RINCON [id number] [place] 14:35:00 14:35:00 Seybol d 2021-04-24 2021-04-24 Outpatient DEEPAK DELONG [id number] [place] 13:40:00 13:40:00 Seybol d 2021-04-24 2021-04-24 Outpatient ADEOLA CORRALES [id number] [place] 11:00:00 11:00:00 JONA Seybol d Results Test Description Test Time Test Comments Results Result [facility] e Comments MR, BRAIN, WITH 2022-11-09 Unlisted Reason 14:55:00 for Exam - Click Yes and [facility] Enter Reason LUKES - MEDICAL Below->YesUnlis CENTERName: JORGE ALBERTO lee Reason for BREA GARCIA Exam->meningiom : 1945 Sex: a F FINAL REPORT MR, BRAIN, WITH \\T\\ WITHOUT CONTRAST INDICATION: Unlisted Reason for Exammeningioma [...] Reason for VIEWS 13:58:00 exam:->mri pacemaker [facility] 1945 Sex: F FINAL REPORT INDICATION: mri pacemaker clearance COMPARISON: None TECHNIQUE: AP and lateral view of the chest. FINDINGS: Lungs and pleura: Clear lungs. No effusion.Heart and mediastinum: Normal heart size. Unremarkable mediastinal contours.Osseous structures: No acute abnormality.Other: Pacer. IMPRESSION: No acute intrathoracic abnormality. Signed: Yue Sexton Verified Date/Time: 11/08/2022 13:58:06 Reading Location: [address] Reading Room ESIUM, SERUM 2021-11-25 14:26:00 Test Item Value Reference Range Interpretation Comme nts MAGNESIUM, SERUM (test code = 13070-9) 1.8 mg/dL 1.6-2.3 CHELSEY (test code = CHELSEY) [facility] results reported in Eastern Time. [facility] Clinical Information:SRC:Blood, venous*Venipunc ture ? [facility] Source of Specimen:Blood, venous*Venipunc [facility]FFERENTIAL/[id number] 13:00:00 Test Item Value Reference Range Interpretation [...] 1 % Not Estab. (test code = 01264-5) IMMATURE GRANS (ABS) See_Comment [Autom ated (test code = 49124-2) messag e] The system which generated this result transmit rosa reference range : 0.0 - 0.1 x10E3/uL. The reference range was not used to interpret this result as normal/abnormal . CHELSEY (test code = CHELSEY) [facility] results reported in Eastern Time. [facility] Clinical Information:SRC :Blood, venous*Venipunc ture ? [facility] Source of Specimen:Blood, venous*Venipunc Lab Interpretation Abnormal (test code = 09568-3) Adeola SierraEXTERNAL [id number] 20:45:00 Test Item Value Reference Range Interpretation Comments Radiology Study observation (narrative) (test code = 58352-5) CHELSEY (test code = CHELSEY) [place] [facility]- LeftRib Xray: ?Comparision [...] disease. Lab Interpretation Normal (test code = 78709-2) Adeola SierraURINALYSIS, [id number] 21:24:00 Test Item Value Reference Range Interpretation Comments SPECIFIC GRAVITY 1.005-1.030 (test code = 2965-2) PH (test code = 5.0-7.5 5803-2) URINE-COLOR (test Yellow Yellow code = 5778-6) APPEARANCE (test code Clear Clear = 5767-9) WBC ESTERASE (test Negative Negative code = 5799-2) PROTEIN (test code = 1+ Negative/Trace A 02143-9) GLUCOSE (test code = 3+ Negative A 2349-9) KETONES (test code = Trace Negative A 2514-8) OCCULT BLOOD (test Negative Negative code = 5794-3) BILIRUBIN (test code Negative Negative = 5770-3) UROBILINOGEN,SEMI-QN 1.0 mg/dL 0.2-1.0 (test code = 19744-1) NITRITE, URINE (test Negative Negative code = 5802-4) MICROSCOPIC See below: Microscopic was EXAMINATION (test indicated and was code = 45324-7) performed. CHELSEY (test code = CHELSEY) [facility] results reported in Eastern Time. [facility] Clinical Information:SRC :Urine*Urine ?[facility] Source of Specimen:Urine* Urine Lab Interpretation Abnormal (test code = 57003-4) Adeola SeyboldMICROSCOPIC [id number] 21:24:00 Test Item Value Reference Range Interpretation Comments WBC (test code = 0-5 See_Comment [Automated 5821-4) message] The system which generated this result transmit rosa reference range : 0 - 5 /hpf. The reference range was not used to interpret this result as normal/abnormal . RBC (test code = None seen See_Comment [Automated 17424-9) message] The system which generated this result transmit rosa reference range : 0 - 2 /hpf. The reference range was not used to interpret this result as normal/abnormal . EPITHELIAL CELLS (NON 0-10 See_Comment [Auto mated RENAL) (test code = message] The 5787-7) system which generated this result transmit rosa reference range : 0 - 10 /hpf. The reference range was not used to interpret this result as normal/abnormal . CASTS (test code = Present None seen /lpf A 04449-1) CAST TYPE (test code Hyaline casts N/A = 07597-9) BACTERIA (test code = None seen None seen/Few 5769-5) CHELSEY (test code = CHELSEY) [facility] results reported in Eastern Time. [facility] Clinical Information:SRC :Urine*Urine ?[facility] Source of Specimen:Urine* Urine Lab Interpretation Abnormal (test code = 78683-3) Adeola SierraBASIC METABOLIC PANEL (8)2021-06-30 13:16:00 Test Item Value Reference Range Interpretation Comments GLUCOSE, SERUM (test 220 mg/dL 65-99 H code = 2345-7) BUN (test code = 20 mg/dL 8- 3094-0) CREATININE, SERUM 1.34 mg/dL 0.57-1.00 H (test code = 2160-0) EGFR IF NONAFRICN AM 39 mL/min/1.73 >59 L (test code = 36500-2) EGFR IF AFRICN AM 45 mL/min/1.73 >59 L [facility] p (test code = 82448-4) angelina nunn reports eGFR in compliance with [...] TOTAL 22 mmol/L 20-29 (test code = 2027-9) CALCIUM, SERUM (test 9.4 mg/dL 8.7-10.3 code = 31075-0) CHELSEY (test code = CHELSEY) [facility] results reported in Eastern Time. [facility] Clinical Information:SRC :Blood, venous*Venipunc ture ? [facility] Source of Specimen:Blood, venous*Venipunc Lab Interpretation Abnormal (test code = 70065-1) Adeola Topete RFLX MICR CULT IF [id number] 18:01:00 Test Item Value Reference Range Interpretation [...] oth srcSpecimen Description: MID STREAM B-TYPE NATRIURETIC [id number] 16:06:00 Test Item Value Reference Range Interpretation Comments B-TYPE NATRIURETIC PEPTIDE (test 151.0 PG/ML 0-100 H code = BNP) BASIC METABOLIC [id number] 15:59:00 Test Item Value Reference Range Interpretation [...] code = 9.6 mg/dL 8.0-10.5 N CA) [id number] 15:59:00 Test Item Value Reference Range Interpretation [...] results may paloma y by method. PROTHROMBIN [id number] 15:58:00 Test Item Value Reference Range Interpretation [...] (to prevent recurrent infar ct). THROMBOPLASTIN TIME [id number] 15:58:00 Test Item Value Reference Range Interpretation Comments THROMBOPLASTIN TIME 31.0 Seconds 25.0-39.5 N Therape utic Range: PARTIAL (test code = 50.4 - 88.3 Seconds PTT) Effective 01/16/2019 PROTHROMBIN [id number] 15:57:00 Test Item Value Reference Range Interpretation [...] (to prevent recurrent infar ct). THROMBOPLASTIN TIME [id number] 15:57:00 Test Item Value Reference Range Interpretation Comments THROMBOPLASTIN TIME PARTIAL (test Seconds 25.0-39.5 code = PTT) CBC W/AUTO [id number] 15:47:00 Test Item Value Reference Range Interpretation [...] MDIFF) - XR HIP W/PEL UNI 2+V [id number] 00:00:00 [facility] : 1945 Sex: F FAX: Kirby Gruber [phone] [place]: [address] St: REG Name: BREA GILES [facility] Jayme Loredo : 1945 Age/S: 75/F [address] [place] [address] Unit #: [id number] Loc: [place] [address] Phys: Kirby Gruber Acct: [id number] Dis Date: Status: REG ER PHONE #: [phone] Exam Date: 05/16/2021 1552 FAX #: [phone] Reason: fall, R hip pain EXAMS: CPT CODE: [id number] XR HIP W/PEL UNI 2+V [place] [address] PROCEDURE INFORMATION: Exam: XR Right Hip Exam [...] M.D. CC: Kirby ANDERSEN Technologist: RT Aziza(Maddison) Trnscrd Date/Time/By: 05/16/2021 (1606) : By: Laquita Orig Print D/T: S: 05/16/2021 (437) PAGE 1 Signed Report- XR FEMUR MIN 2 VWS [id number] 00:00:00 [facility] JAYME LOREDOName: TAVIA GILESJEFF Robledo : 1945 Sex: F FAX: Kirby Gruber [phone] [place]: St: REG Name: BREA GILES [facility] [place] : 1945ge/S: 75/F [address] [place] [address] Unit #: [id number] Loc: [place] [address] Phys: Kirby Gruber Acct: [id number] Dis Date: Status: REG ER PHONE #: [phone] Exam Date: 05/16/2021 1552 FAX #: [phone] Reason: fall, R hip pain EXAMS: CPT CODE: [id number] XR FEMUR MIN [address] [place] [address] PROCEDURE INFORMATION: Exam: XR Right Femur Exam date and time: 05/16/2021 3:27 PM Age: 75 years oldClinical indication: Trauma, injury to the right lower extremity, status post fall TECHNIQUE: Imaging protocol: XR Right femur. Views: 2 views. COMPARISON: No relevant prior studies available. FINDINGS: Bones/joints: No fracture or other acute osseous abnormality is seen involving the right femur. Note is made of a right total knee prosthesis which appears to be in good position. Soft tissues: Thereis no soft tissue swelling or radiopaque foreign bodies. Notes: Notes: If there is further concern, recommend follow-up radiographs or bone scan for complete assessment. IMPRESSION: 1. Negative right femur. 2. Note is made of a right total knee prosthesis which appears to be in good position. at 1607 Reported and signed by: Gene Chun M.D. CC: Kirby ANDERSEN Technologist: RT Aziza(R) Trnscrd Date/Time/By: 05/16/2021 (263) : By: [email or web address] Orig Print D/T: S: 05/16/2021 (812) PAGE 1 Signed Report- XR CHEST 1 [id number] 00:00:00 [facility] 1945 Sex: F FAX: Kirby Gruber [phone] [place]: St: REG Name: BREA GILES [facility] : 1945ge/S: 75/F [address] [place] [address] Unit #: [id number] Loc: [place] [address] Phys: Kirby Gruber Acct: [id number] Dis Date: Status: REG ER PHONE #: [phone] Exam Date: 05/16/2021 1552FAX #: [phone] Reason: trauma EXAMS: CPT CODE: [id number] XR CHEST 1 V 59011 PROCEDURE INFORMATION: Exam: XR Chest Exam date [...] M.D. CC: Kirby ANDERSEN Technologist: RT Aziza(Maddison) Trnscrd Date/Time/By: 05/16/2021 (1604) : By: mehreen HOWELL Orig Print D/T: S: 05/16/2021 (8631) PAGE 1 Signed Report- CT HEAD/BRAIN W/O [id number] 00:00:00 [facility] : 1945 Sex: F Name: BREA GILES [facility] : 1945 Age/S: 75 / F [address] Unit #: [id number] Loc: [place] [address] Phys: Kirby Gruber NATHALY Acct: [id number] Dis Date: Status: REG ER PHONE #: [phone] Exam Date: 05/16/2021 1609 FAX #: [phone] Reason: trauma, Rposterior hematoma, on Xarelto EXAMS: CPT CODE: [id number] CT HEAD/BRAIN W/O CONT 42530 PROCEDURE INFO RMATION: Exam: CT Head Without [...] matched to clinical indication); or iterative reconstruction. Othertechnique: CT radiation dose DLP (MGY-CM) : 562.04 COMPARISON: No relevant prior studies available. FINDINGS: Brain: There are mild generalized involutional changes. The cerebral cortical architectureis otherwise maintained. Mild areas of diminished attenuation in the cerebral white matter bilateral. The midline structures and posterior fossa contents are unremarkable. There is no intra-axial or extra- axial hemorrhage, mass lesion or mass effect. Calcified plaque cavernous carotid arteries. Cerebral ventricles: No ventriculomegaly. Paranasal sinuses: Visualized sinuses are unremarkable. No fluid levels. Mastoid air cells: Visualized mastoid air cells are well aerated. Bones/joints: The calvariumis intact. Soft tissues: Unremarkable. Notes: If there is continued clinical concern further imagingoptions include MRI. IMPRESSION: 1. Negative for acute intracranial injury. 2. Mild chronic microvascular ischemic changes. at 1624 Reported and signed by: Alfonso Selby M.D. PAGE 1 Signed Report (CONTINUED) Name: BREA GILES [facility] : 1945 Age/S: 75 / F [address] Unit #: [id number] Loc: [place] [address] Phys: Kirby Gruber Acct: [id number] Dis Date: Status: REG ER PHONE #: Exam Date: 05/16/20211608 FAX #: [phone] Reason: trauma, R posterior hematoma, on Xarelto EXAMS: CPT CODE: [id number] CT HEAD/BRAIN W/O CONT 36990 <Continued> CC: Kirby Aquino Technologist:Addis Prado, RT(R)(CT) CTDI: DLP: Trnscb Date/Time: 05/16/2021 (1623) tSHON Orig Print D/T: S: 05/16/2021 (3) PAGE 2 Signed Report- CT C-SPINE W/O [id number] 00:00[facility] : 1945 Sex: F Name: BREA GILES [facility] : 1945 Age/S: 75 / F [address] [place] [address] Unit #: [id number] Loc: [place] [address] Phys: Kirby Gruber Acct: [id number] Dis Date: Status: REG ER PHONE #: [phone] Exam Date: 05/16/20211608 FAX #: [phone] Reason: trauma, posterior head pain EXAMS: CPT CODE: [id number] CT C-SPINE W/O CONT 80912 PROCEDURE INFORMATION: Exam: CT Cervical Spine Without Contrast Exam date and time: 05/16/2021 3:55 PM Age: 75 years old Clinicalindication: Injury or trauma; Fall; Blunt trauma; Additional info: Trauma, posterior head pain TECHNIQUE: Imaging protocol: Computed tomography images of the cervical spine without contrast. Radiation o ptimization: All CT scans at this facility use at least one of these dose optimization techniques: automated exposure control; mA and/or kV adjustment per patient size (includes targeted exams where dose is matched to clinical indication); or iterative reconstruction. COMPARISON: CT HEAD/BRAIN W/O CONT 05/16/2021 3:50 PM FINDINGS: There is mild S-shaped [...] C4 to T1. Multilevel facet joint arthrosis. Thereare mild to moderate neuroforaminal stenosis at C5-C6 and C6-C7. The visualized lung apices are unremarkable. A 2.0 x 1.3 cm hypodense nodule inferior pole of the right thyroid lobe. A calcified nodulealso seen in the right thyroid lobe. CT myelogram or MRI of the cervical spine may be performed, if there is further concern. IMPRESSION: 1. No acute fractures or subluxations of the cervical spine. 2.Degenerative changes. 3. Right thyroid nodule. If indicated, a nonemergent thyroid ultrasound can be performed further assessment. at 1645 Reported and signed by: Zackary Malik M.D. PAGE 1 Signed Report (CONTINUED) Name: FREDCAMILA GARCIABREA [facility] : 1945 Age/S: 75 / F [address] [place] [address] Unit #: [id number] Loc: [place] [address] Phys: Kirby Gruber Acct: [id number] Dis Date: Status: REG ER PHONE #: [phone] Exam Date: 05/16/2021 160 FAX #: [phone] Reason: trauma, posterior head pain EXAMS: CPT CODE: [id number] CT C-SPINE W/O CONT 86785 <Continued> CC: Kirby ANDERSEN Technologist:Addis Prado, RT(R)(CT) CTDI: DLP: Trnscb Date/Time: 05/16/2021 (815) [email or web address] Orig Print D/T: S: 05/16/2021 (3602) PAGE 2 Signed ReportGLUCOSE BEDSIDE [id number] 07:45:00 Test Item Value Reference Range Interpretation Comments GLUCOSE BEDSIDE TESTING (test code 130 MG/DL 60-99 H = GLUBED) BASIC METABOLIC [id number] 06:54:00 Test Item Value Reference Range Interpretation [...] 9.8 MG/DL 8.4-10.2 N CA) BASIC METABOLIC [id number] 06:53:00 Test Item Value Reference Range Interpretation [...] code = MG/DL 8.7-9.7 CA) BASIC METABOLIC [id number] 06:50:00 Test Item Value Reference Range Interpretation [...] code = CA) MG/DL 8.7-9.7 CBC W/AUTO [id number] 06:24:00 Test Item Value Reference Range Interpretation [...] 0.00 K/mm3 0.0-0.1 N NRBC#) GLUCOSE BEDSIDE [id number] 05:35:00 Test Item Value Reference Range Interpretation Comments GLUCOSE BEDSIDE TESTING (test code 161 MG/DL 60-99 H = GLUBED) UR SODIUM [id number] 00:53:00 Test Item Value Reference Range Interpretation Comments UR SODIUM RANDOM (test code = MARIAH) 13 MMOL/L 27-287 L UR OSMOLALITY [id number] 00:53:00 Test Item Value Reference Range Interpretation Comments UR OSMOLALITY RANDOM (test code 310.5 MOS/KG 300-1200 N = OSMOU) UR SODIUM [id number] 23:08:00 Test Item Value Reference Range Interpretation Comments UR SODIUM RANDOM (test code = MARIAH) 13 MMOL/L 27-287 L UR OSMOLALITY [id number] 23:08:00 Test Item Value Reference Range Interpretation Comments UR OSMOLALITY RANDOM (test code = MOS/KG 300-1200 OSMOU) OSMOLALITY [id number] 19:19:00 Test Item Value Reference Range Interpretation Comments OSMOLALITY SERUM (test code = 301 mOsm/kg 275-295 H OSMO) GLUCOSE BEDSIDE [id number] 16:55:00 Test Item Value Reference Range Interpretation Comments GLUCOSE BEDSIDE TESTING (test code 294 MG/DL 60-99 H = GLUBED) GLUCOSE BEDSIDE [id number] 12:44:00 Test Item Value Reference Range Interpretation Comments GLUCOSE BEDSIDE TESTING (test code 202 MG/DL 60-99 H = GLUBED) GLUCOSE BEDSIDE [id number] 11:17:00 Test Item Value Reference Range Interpretation Comments GLUCOSE BEDSIDE TESTING (test code 266 MG/DL 60-99 H = GLUBED) GLUCOSE BEDSIDE [id number] 11:16:00 Test Item Value Reference Range Interpretation Comments GLUCOSE BEDSIDE TESTING (test code 112 MG/DL 60-99 H = GLUBED) - XR CHEST [id number] 08:11:00 Patient Name: BREA GILES Unit No: [id number] EXAMS: CPT CODE: [id number] XR CHEST 1V 07210 Site ID: [id number] EXAMINATION: - XR CHEST 1V. HISTORY: leukocytosis, f/u chf. COMPARISON: July. Findings: The lungs are clear. The heart size is enlarged. There is a pacemaker with 2 cardiacleads again seen.. There is no effusion or pneumothorax. The mediastinum and david appear unremarkable. Impression: Cardiomegaly. at 0811 Reported and signed by: Ramesh Way MD CC: Dexter Beard MD; Viviana Thompson MD Technologist: Frances Reardon RT(R) Transcrpt Date/Tm/Trnsp: 07/20/2019 (11) Wendy Orig Print D/T: S: 07/20/2019 (0814) [facility] NAME: BREA GILES [address] [address] PHYS: [email or web address] [place] [address] : 1945 AGE: 73 SEX: F LOC: [id number] A PHONE #: [phone] EXAM DATE: 07/20/2019 STATUS: ADM IN FAX #: [phone] RADIOLOGY NO: PAGE 1 Signed ReportBASIC METABOLIC [id number] 05:45:00 Test Item Value Reference Range Interpretation [...] code = 9.5 MG/DL 8.4-10.2 N CA) [id number] 05:41:00 Test Item Value Reference Range Interpretation Comments DIGOXIN (test code = DIG) 0.6 NG/ML 0.8-2.0 L BASIC METABOLIC [id number] 05:25:00 Test Item Value Reference Range Interpretation [...] code = MG/DL 8.7-9.7 CA) BASIC METABOLIC [id number] 05:22:00 Test Item Value Reference Range Interpretation [...] code = CA) MG/DL 8.7-9.7 CBC W/AUTO [id number] 05:00:00 Test Item Value Reference Range Interpretation [...] = 0.00 K/mm3 0.0-0.1 N NRBC#) URINALYSIS [id number] 21:50:00 Test Item Value Reference Range Interpretation [...] code = UACULT) SOURCE OF URINE: VOIDEDUA [id number] 21:50:00 Test Item Value Reference Range Interpretation Comments UA RBC (test code = RBCU) 0-3 RBC/HPF 0-3 UA WBC (test code = XWBCU) 5-9 WBC/HPF 0-5 A UA EPITHELIAL CELLS (test code = FEW EPI/HPF FEW EPIU) UA BACTERIA (test code = XBACU) FEW NONE SOURCE OF URINE: VOIDEDURINALYSIS [id number] 21:43:00 Test Item Value Reference Range Interpretation [...] code = UACULT) SOURCE OF URINE: VOIDEDUA [id number] 21:43:00 Test Item Value Reference Range Interpretation Comments UA RBC (test code = RBCU) RBC/HPF 0-3 UA WBC (test code = XWBCU) WBC/HPF 0-5 UA EPITHELIAL CELLS (test code = EPI/HPF FEW EPIU) UA BACTERIA (test code = XBACU) NONE SOURCE OF URINE: VOIDEDURINALYSIS [id number] 21:43:00 Test Item Value Reference Range Interpretation [...] code = UACULT) SOURCE OF URINE: VOIDEDUA [id number] 21:43:00 Test Item Value Reference Range Interpretation Comments UA RBC (test code = RBCU) RBC/HPF 0-3 UA WBC (test code = XWBCU) WBC/HPF 0-5 UA EPITHELIAL CELLS (test code = EPI/HPF FEW EPIU) UA BACTERIA (test code = XBACU) NONE SOURCE OF URINE: VOIDEDGLUCOSE BEDSIDE [id number] 21:08:00 Test Item Value Reference Range Interpretation Comments GLUCOSE BEDSIDE TESTING (test code 202 MG/DL 60-99 H = GLUBED) GLUCOSE BEDSIDE [id number] 16:25:00 Test Item Value Reference Range Interpretation Comments GLUCOSE BEDSIDE TESTING (test code 191 MG/DL 60-99 H = GLUBED) GLUCOSE BEDSIDE [id number] 07:50:00 Test Item Value Reference Range Interpretation Comments GLUCOSE BEDSIDE TESTING (test code 173 MG/DL 60-99 H = GLUBED) BASIC METABOLIC [id number] 05:13:00 Test Item Value Reference Range Interpretation [...] 9.5 MG/DL 8.4-10.2 N CA) BASIC METABOLIC [id number] 05:08:00 Test Item Value Reference Range Interpretation [...] code = CA) MG/DL 8.7-9.7 CBC W/AUTO [id number] 04:54:00 Test Item Value Reference Range Interpretation [...] 0.00 K/mm3 0.0-0.1 N NRBC#) GLUCOSE BEDSIDE [id number] 19:57:00 Test Item Value Reference Range Interpretation Comments GLUCOSE BEDSIDE TESTING (test code 171 MG/DL 60-99 H = GLUBED) GLUCOSE BEDSIDE [id number] 16:05:00 Test Item Value Reference Range Interpretation Comments GLUCOSE BEDSIDE TESTING (test code 286 MG/DL 60-99 H = GLUBED) GLUCOSE BEDSIDE [id number] 12:28:00 Test Item Value Reference Range Interpretation Comments GLUCOSE BEDSIDE TESTING (test code 234 MG/DL 60-99 H = GLUBED) GLUCOSE BEDSIDE [id number] 08:29:00 Test Item Value Reference Range Interpretation Comments GLUCOSE BEDSIDE TESTING (test code 196 MG/DL 60-99 H = GLUBED) B-TYPE NATRIURETIC [id number] 04:56:00 Test Item Value Reference Range Interpretation Comments B-TYPE NATRIURETIC PEPTIDE (test 371.0 PG/ML 0-100 H code = BNP) COMPREHENSIVE METABOLIC [id number] 04:47:00 Test Item Value Reference Range Interpretation [...] UNITS/L 38-126 N (test code = ALKP) [id number] 04:47:00 Test Item Value Reference Range Interpretation Comments MAGNESIUM (test code = MAG) 1.9 MG/DL 1.6-2.3 N COMPREHENSIVE METABOLIC [id number] 04:45:00 Test Item Value Reference Range Interpretation [...] PHOSPHATASE (test code = UNITS/L 38-126 ALKP) [id number] 04:45:00 Test Item Value Reference Range Interpretation Comments MAGNESIUM (test code = MAG) MG/DL 1.6-2.3 COMPREHENSIVE METABOLIC [id number] 04:44:00 Test Item Value Reference Range Interpretation [...] PHOSPHATASE (test code = UNITS/L 38-126 ALKP) [id number] 04:44:00 Test Item Value Reference Range Interpretation Comments MAGNESIUM (test code = MAG) MG/DL 1.6-2.3 CBC W/AUTO [id number] 04:25:00 Test Item Value Reference Range Interpretation [...] 0.00 K/mm3 0.0-0.1 N NRBC#) GLUCOSE BEDSIDE [id number] 20:14:00 Test Item Value Reference Range Interpretation Comments GLUCOSE BEDSIDE TESTING (test code 173 MG/DL 60-99 H = GLUBED) [id number] 18:39:00 Test Item Value Reference Range Interpretation Comments TROPONIN-I (test code = TROPI) 0.041 NG/ML 0.012-0.033 H B-TYPE NATRIURETIC [id number] 16:46:00 Test Item Value Reference Range Interpretation Comments B-TYPE NATRIURETIC PEPTIDE (test 336.0 PG/ML 0-100 H code = BNP) ADD ONSpecimen comments: Can add to blood in [id number] 16:38:00 Test Item Value Reference Range Interpretation Comments TROPONIN-I (test code = TROPI) 0.042 NG/ML 0.012-0.033 H COMPREHENSIVE METABOLIC [id number] 13:48:00 Test Item Value Reference Range Interpretation [...] UNITS/L 38-126 N (test code = ALKP) [id number] 13:48:00 Test Item Value Reference Range Interpretation Comments PHOSPHOROUS (test code = PHOS) 3.6 MG/DL 2.5-4.5 N [id number] 13:48:00 Test Item Value Reference Range Interpretation Comments MAGNESIUM (test code = MAG) 2.1 MG/DL 1.6-2.3 N COMPREHENSIVE METABOLIC [id number] 13:39:00 Test Item Value Reference Range Interpretation [...] PHOSPHATASE UNITS/L 38-126 (test code = ALKP) [id number] 13:39:00 Test Item Value Reference Range Interpretation Comments PHOSPHOROUS (test code = PHOS) MG/DL 2.5-4.5 [id number] 13:39:00 Test Item Value Reference Range Interpretation Comments MAGNESIUM (test code = MAG) MG/DL 1.6-2.3 COMPREHENSIVE METABOLIC [id number] 13:37:00 Test Item Value Reference Range Interpretation [...] PHOSPHATASE (test code = UNITS/L 38-126 ALKP) [id number] 13:37:00 Test Item Value Reference Range Interpretation Comments PHOSPHOROUS (test code = PHOS) MG/DL 2.5-4.5 [id number] 13:37:00 Test Item Value Reference Range Interpretation Comments MAGNESIUM (test code = MAG) MG/DL 1.6-2.3 - XR CHEST [id number] 13:36:00 Patient Name: BREA GILES Unit No: [id number] EXAMS: CPT CODE: [id number] XR CHEST 1V 05124 Chest Radiograph History: pain Comparison: July 02, 2019 Location: R16 A single frontal view of the chest is submitted. The heart appears unchanged in size. Pulmonary vasculature is unremarkable. The visualized lung ryan appear to be free of disease. The bones appear unchanged. IMPRESSION: There is no radiographic evidence of acute cardiopulmonary disease. at 1336 Reported and signed by: Niko Howell MD CC: TAMY QUINTERO DO; Viviana Thompson MD Technologist: Matt Campbell RT(R) Transcrpt Date/Tm/Trnsp: 07/17/2019 (5267) [id number] Orig Print D/T: S: 07/17/2019 (7618) [facility] NAME: BREA IGLES [address] [address] PHYS: [place] [address] : 1945 AGE: 73 SEX: F LOC: SHAHIDA PHONE #: [phone] EXAM DATE: 07/17/2019 STATUS: PRE ER FAX #: [phone] RADIOLOGY NO: PAGE 1 Signed ReportPROTHROMBIN [id number] 13:35:00 Test Item Value Reference Range Interpretation [...] va lve, or acute myocar dial infarction. 2.0 - 3.0 3. Hvac Engineer al prosthesis hear t valves, recurre nt systemic emboli sm. 3.0 - 4.5 PTT [id number] 13:35:00 Test Item Value Reference Range Interpretation Comments PTT ACTIVATED (test code = APTT) 31.5 SECONDS 22.0-33.0 N CBC W/AUTO [id number] 13:34:00 Test Item Value Reference Range Interpretation [...] 0.00 K/mm3 0.0-0.1 N NRBC#) TROPONIN I [id number] 13:16:00 Test Item Value Reference Range Interpretation Comments TROPONIN I RAPID (test code = 0.04 NG/ML 0.00-0.05 N TROPIRAP) GLUCOSE BEDSIDE [id number] 17:02:00 Test Item Value Reference Range Interpretation Comments GLUCOSE BEDSIDE TESTING (test code 232 MG/DL 60-99 H = GLUBED) BUN [id number] 16:53:00 Test Item Value Reference Range Interpretation Comments BLOOD UREA NITROGEN 63 MG/DL 7-17 H (test code = BUN) GLOMERULAR FILTRATION 34 Report ing units: RATE (test code = GFR) ml/mi n/1.73 m2 (Modified MDRD Formula)Referen ce Range: > or = 6 0 ml/min/1.73 m2 CREATININE (test code 1.50 MG/DL 0.52-1.04 H = CREAT) ENTER RACE; UGLUCOSE BEDSIDE [id number] 11:52:00 Test Item Value Reference Range Interpretation Comments GLUCOSE BEDSIDE TESTING (test code 149 MG/DL 60-99 H = GLUBED) GLUCOSE BEDSIDE [id number] 10:27:00 Test Item Value Reference Range Interpretation Comments GLUCOSE BEDSIDE TESTING (test code 145 MG/DL 60-99 H = GLUBED) GLUCOSE BEDSIDE [id number] 21:19:00 Test Item Value Reference Range Interpretation Comments GLUCOSE BEDSIDE TESTING (test code 162 MG/DL 60-99 H = GLUBED) GLUCOSE BEDSIDE [id number] 16:42:00 Test Item Value Reference Range Interpretation Comments GLUCOSE BEDSIDE TESTING (test code 228 MG/DL 60-99 H = GLUBED) GLUCOSE BEDSIDE [id number] 11:58:00 Test Item Value Reference Range Interpretation Comments GLUCOSE BEDSIDE TESTING (test code 228 MG/DL 60-99 H = GLUBED) GLUCOSE BEDSIDE [id number] 07:45:00 Test Item Value Reference Range Interpretation Comments GLUCOSE BEDSIDE TESTING (test code 129 MG/DL 60-99 H = GLUBED) GLUCOSE BEDSIDE [id number] 20:35:00 Test Item Value Reference Range Interpretation Comments GLUCOSE BEDSIDE TESTING (test code 223 MG/DL 60-99 H = GLUBED) GLUCOSE BEDSIDE [id number] 16:27:00 Test Item Value Reference Range Interpretation Comments GLUCOSE BEDSIDE TESTING (test code 222 MG/DL 60-99 H = GLUBED) GLUCOSE BEDSIDE [id number] 13:00:00 Test Item Value Reference Range Interpretation Comments GLUCOSE BEDSIDE TESTING (test code 212 MG/DL 60-99 H = GLUBED) GLUCOSE BEDSIDE [id number] 10:50:00 Test Item Value Reference Range Interpretation Comments GLUCOSE BEDSIDE TESTING (test code 131 MG/DL 60-99 H = GLUBED) GLUCOSE BEDSIDE [id number] 10:50:00 Test Item Value Reference Range Interpretation Comments GLUCOSE BEDSIDE TESTING (test code 177 MG/DL 60-99 H = GLUBED) GLUCOSE BEDSIDE [id number] 20:29:00 Test Item Value Reference Range Interpretation Comments GLUCOSE BEDSIDE TESTING (test code 247 MG/DL 60-99 H = GLUBED) GLUCOSE BEDSIDE [id number] 16:22:00 Test Item Value Reference Range Interpretation Comments GLUCOSE BEDSIDE TESTING (test code 182 MG/DL 60-99 H = GLUBED) GLUCOSE BEDSIDE [id number] 11:20:00 Test Item Value Reference Range Interpretation Comments GLUCOSE BEDSIDE TESTING (test code 176 MG/DL 60-99 H = GLUBED) GLUCOSE BEDSIDE [id number] 20:14:00 Test Item Value Reference Range Interpretation Comments GLUCOSE BEDSIDE TESTING (test code 187 MG/DL 60-99 H = GLUBED) GLUCOSE BEDSIDE [id number] 16:20:00 Test Item Value Reference Range Interpretation Comments GLUCOSE BEDSIDE TESTING 200 MG/DL 60-99 H Noti fied Nurse~ (test code = GLUBED) GLUCOSE BEDSIDE [id number] 12:15:00 Test Item Value Reference Range Interpretation Comments GLUCOSE BEDSIDE TESTING (test code 180 MG/DL 60-99 H = GLUBED) GLUCOSE BEDSIDE [id number] 10:59:00 Test Item Value Reference Range Interpretation Comments GLUCOSE BEDSIDE TESTING (test code 230 MG/DL 60-99 H = GLUBED) GLUCOSE BEDSIDE [id number] 10:58:00 Test Item Value Reference Range Interpretation Comments GLUCOSE BEDSIDE TESTING (test code 226 MG/DL 60-99 H = GLUBED) GLUCOSE BEDSIDE [id number] 07:20:00 Test Item Value Reference Range Interpretation Comments GLUCOSE BEDSIDE TESTING (test code 146 MG/DL 60-99 H = GLUBED) GLUCOSE BEDSIDE [id number] 20:40:00 Test Item Value Reference Range Interpretation Comments GLUCOSE BEDSIDE TESTING (test code 214 MG/DL 60-99 H = GLUBED) GLUCOSE BEDSIDE [id number] 17:09:00 Test Item Value Reference Range Interpretation Comments GLUCOSE BEDSIDE TESTING (test code 236 MG/DL 60-99 H = GLUBED) GLUCOSE BEDSIDE [id number] 12:08:00 Test Item Value Reference Range Interpretation Comments GLUCOSE BEDSIDE TESTING (test code 161 MG/DL 60-99 H = GLUBED) GLUCOSE BEDSIDE [id number] 09:16:00 Test Item Value Reference Range Interpretation Comments GLUCOSE BEDSIDE TESTING (test code 138 MG/DL 60-99 H = GLUBED) GLUCOSE BEDSIDE [id number] 17:05:00 Test Item Value Reference Range Interpretation Comments GLUCOSE BEDSIDE TESTING (test code 245 MG/DL 60-99 H = GLUBED) GLUCOSE BEDSIDE [id number] 12:32:00 Test Item Value Reference Range Interpretation Comments GLUCOSE BEDSIDE TESTING (test code 131 MG/DL 60-99 H = GLUBED) GLUCOSE BEDSIDE [id number] 07:29:00 Test Item Value Reference Range Interpretation Comments GLUCOSE BEDSIDE TESTING (test code 134 MG/DL 60-99 H = GLUBED) GLUCOSE BEDSIDE [id number] 02:24:00 Test Item Value Reference Range Interpretation Comments GLUCOSE BEDSIDE TESTING (test code 149 MG/DL 60-99 H = GLUBED) GLUCOSE BEDSIDE [id number] 16:14:00 Test Item Value Reference Range Interpretation Comments GLUCOSE BEDSIDE TESTING 186 MG/DL 60-99 H Noti fied Nurse~ (test code = GLUBED) GLUCOSE BEDSIDE [id number] 12:52:00 Test Item Value Reference Range Interpretation Comments GLUCOSE BEDSIDE TESTING (test code 160 MG/DL 60-99 H = GLUBED) GLUCOSE BEDSIDE [id number] 07:30:00 Test Item Value Reference Range Interpretation Comments GLUCOSE BEDSIDE TESTING (test code 142 MG/DL 60-99 H = GLUBED) COMPREHENSIVE METABOLIC [id number] 06:56:00 Test Item Value Reference Range Interpretation [...] UNITS/L 38-126 N (test code = ALKP) [id number] 06:56:00 Test Item Value Reference Range Interpretation Comments MAGNESIUM (test code = MAG) 1.9 MG/DL 1.6-2.3 N COMPREHENSIVE METABOLIC [id number] 06:52:00 Test Item Value Reference Range Interpretation [...] PHOSPHATASE (test code = UNITS/L 38-126 ALKP) [id number] 06:52:00 Test Item Value Reference Range Interpretation Comments MAGNESIUM (test code = MAG) MG/DL 1.6-2.3 COMPREHENSIVE METABOLIC [id number] 06:51:00 Test Item Value Reference Range Interpretation [...] PHOSPHATASE (test code = UNITS/L 38-126 ALKP) [id number] 06:51:00 Test Item Value Reference Range Interpretation Comments MAGNESIUM (test code = MAG) MG/DL 1.6-2.3 CBC W/AUTO [id number] 06:25:00 Test Item Value Reference Range Interpretation [...] 0.00 K/mm3 0.0-0.1 N NRBC#) GLUCOSE BEDSIDE [id number] 19:59:00 Test Item Value Reference Range Interpretation Comments GLUCOSE BEDSIDE TESTING 184 MG/DL 60-99 H Noti fied Nurse~ (test code = GLUBED) GLUCOSE BEDSIDE [id number] 16:28:00 Test Item Value Reference Range Interpretation Comments GLUCOSE BEDSIDE TESTING 245 MG/DL 60-99 H Noti fied Nurse~ (test code = GLUBED) GLUCOSE BEDSIDE [id number] 13:02:00 Test Item Value Reference Range Interpretation Comments GLUCOSE BEDSIDE TESTING (test code 204 MG/DL 60-99 H = GLUBED) GLUCOSE BEDSIDE [id number] 07:00:00 Test Item Value Reference Range Interpretation Comments GLUCOSE BEDSIDE TESTING (test code 151 MG/DL 60-99 H = GLUBED) GLUCOSE BEDSIDE [id number] 06:33:00 Test Item Value Reference Range Interpretation Comments GLUCOSE BEDSIDE TESTING 236 MG/DL 60-99 H Noti fied Nurse~ (test code = GLUBED) GLUCOSE BEDSIDE [id number] 12:07:00 Test Item Value Reference Range Interpretation Comments GLUCOSE BEDSIDE TESTING (test code 167 MG/DL 60-99 H = GLUBED) GLUCOSE BEDSIDE [id number] 08:20:00 Test Item Value Reference Range Interpretation Comments GLUCOSE BEDSIDE TESTING (test code 140 MG/DL 60-99 H = GLUBED) BASIC METABOLIC [id number] 06:11:00 Test Item Value Reference Range Interpretation [...] code = MG/DL 8.7-9.7 CA) BASIC METABOLIC [id number] 06:11:00 Test Item Value Reference Range Interpretation [...] 9.5 MG/DL 8.4-10.2 N CA) BASIC METABOLIC [id number] 06:08:00 Test Item Value Reference Range Interpretation [...] code = CA) MG/DL 8.7-9.7 GLUCOSE BEDSIDE [id number] 20:04:00 Test Item Value Reference Range Interpretation Comments GLUCOSE BEDSIDE TESTING (test code 226 MG/DL 60-99 H = GLUBED) GLUCOSE BEDSIDE [id number] 16:25:00 Test Item Value Reference Range Interpretation Comments GLUCOSE BEDSIDE TESTING (test code 270 MG/DL 60-99 H = GLUBED) GLUCOSE BEDSIDE [id number] 13:02:00 Test Item Value Reference Range Interpretation Comments GLUCOSE BEDSIDE TESTING (test code 137 MG/DL 60-99 H = GLUBED) GLUCOSE BEDSIDE [id number] 12:09:00 Test Item Value Reference Range Interpretation Comments GLUCOSE BEDSIDE TESTING (test code 220 MG/DL 60-99 H = GLUBED) - CTA CHEST FOR [id number] 10:59:00 Patient Name: BREA GILES Unit No: [id number] EXAMS: CPT CODE: [id number] CTA CHEST FORPE 39879 CTA Chest with contrast Location: B2 Clinical [...] artifact from left side ICD generator. No pneumothora x. There is some groundglass opacification within the [...] result of edema or an atypical infectious process.3. Minimal pleural fluid, right greater than left. at 1059 Reported and signed by: Alf Schwarz M.D. CC: Nick Cabrera; Dexter Taylor MD; Viviana Thompson MD Technologist: Ian Aguilar, RT(R)(CT)(MRI); [facility] CTDI: DLP: Trnscrpt: 07/03/2019(1059) t.[email or web address] [facility] NAME: BREA GILES [address] [address] [address] PHYS: [place] [address] : 1945 AGE: 73 SEX: F LOC: Z.365 A PHONE #: [phone] EXAM DATE: 07/03/2019 STATUS: ADM IN FAX #: [phone] RAD #: D/C DT PAGE 1 Signed Report Patient Name: BREA GILES Unit No: [id number] EXAMS: CPT CODE: [id number] [place] [address] (Continued) Orig Print D/T: S: 07/03/2019 (1102) [facility] [place] NAME: BREA GILES [address] PHYS: MARIA ELENANilda12 - [place] [address] : 1945 AGE: 73 SEX: F LOC: Karri Dobbins PHONE #: [phone] EXAM DATE: 07/03/2019 STATUS: ADM IN FAX #: [phone] RAD #: D/C DT PAGE 2 Signed ReportBASIC METABOLIC [id number] 06:20:00 Test Item Value Reference Range Interpretation [...] 9.6 MG/DL 8.4-10.2 N CA) CBC W/AUTO [id number] 05:42:00 Test Item Value Reference Range Interpretation [...] = 0.00 K/mm3 0.0-0.1 N NRBC#) DIFFERENTIAL [id number] 05:42:00 Test Item Value Reference Range Interpretation Comments RBC MORPHOLOGY REQUIRED (test code = RBCM) PLATELET ESTIMATE (test code = PLTEST) ADEQUATE PLATELET MORPHOLOGY (test code = NORMAL PLTMORPH) CBC W/AUTO [id number] 05:42:00 Test Item Value Reference Range Interpretation [...] = 0.00 K/mm3 0.0-0.1 N NRBC#) DIFFERENTIAL [id number] 05:42:00 Test Item Value Reference Range Interpretation Comments RBC MORPHOLOGY REQUIRED (test code = RBCM) PLATELET ESTIMATE (test code = PLTEST) ADEQUATE PLATELET MORPHOLOGY (test code = NORMAL PLTMORPH) GLUCOSE BEDSIDE [id number] 20:44:00 Test Item Value Reference Range Interpretation Comments GLUCOSE BEDSIDE TESTING (test code 191 MG/DL 60-99 H = GLUBED) GLUCOSE BEDSIDE [id number] 19:09:00 Test Item Value Reference Range Interpretation Comments GLUCOSE BEDSIDE TESTING (test code 132 MG/DL 60-99 H = GLUBED) - XR CHEST [id number] 18:49:00 Patient Name: BREA GILES Unit No: [id number] EXAMS: CPT CODE: [id number] XR CHEST 1V 67060 LOCATION CODE: H 31 CHEST AP HISTORY: Follow-up status post ICD placement COMPARISON: Chest radio graph from 06/29/2019 FINDINGS: Dual-lead AICD has been placed with leads in the right atrium and right ventricle. Cardiomegaly is redemonstrated. Moderate central vascular congestion appears stable to slightly improved. No evidence of pleural effusion or pneumothorax. The device superimposes the leftmid lung. IMPRESSION: 1. Status post dual lead AICD without evidence of acute complications. 2. Moderate cardiomegaly redemonstrated. 3. Moderate central pulmonary vascular congestion appearing stable to slightly improved at 1849 Reported and signed by: Guerline Hamlin MD CC: Nick Cabrera; Alexandr Ham; Viviana Thompson MD Technologist: Pavithra Maloney RT(R) Transcrpt Date/Tm/Trnsp: 07/02/2019 (1848) [id number] Orig Print D/T: S: 07/02/2019 (1851) [facility] NAME: BREA GILES [address] [address] PHYS: [place] [address] : 1945 AGE: 73 SEX: F LOC: Z.410 A PHONE #: [phone] EXAM DATE: 07/02/2019 STATUS: ADM IN FAX #: [phone] RADIOLOGY NO: PAGE 1 Signed [id number] 18:23:00 Test Item Value Reference Range Interpretation Comments ACT-ISTAT (test code = ACTI) 103 SEC 74-137 N GLUCOSE BEDSIDE [id number] 07:48:00 Test Item Value Reference Range Interpretation Comments GLUCOSE BEDSIDE TESTING (test code 160 MG/DL 60-99 H = GLUBED) GLUCOSE BEDSIDE [id number] 07:16:00 Test Item Value Reference Range Interpretation Comments GLUCOSE BEDSIDE TESTING (test code 134 MG/DL 60-99 H = GLUBED) GLUCOSE BEDSIDE [id number] 20:51:00 Test Item Value Reference Range Interpretation Comments GLUCOSE BEDSIDE TESTING (test code 142 MG/DL 60-99 H = GLUBED) GLUCOSE BEDSIDE [id number] 16:16:00 Test Item Value Reference Range Interpretation Comments GLUCOSE BEDSIDE TESTING (test code 156 MG/DL 60-99 H = GLUBED) GLUCOSE BEDSIDE [id number] 16:16:00 Test Item Value Reference Range Interpretation Comments GLUCOSE BEDSIDE TESTING (test code 184 MG/DL 60-99 H = GLUBED) BASIC METABOLIC [id number] 13:13:00 Test Item Value Reference Range Interpretation [...] 9.3 MG/DL 8.4-10.2 N CA) BASIC METABOLIC [id number] 13:02:00 Test Item Value Reference Range Interpretation [...] code = MG/DL 8.7-9.7 CA) BASIC METABOLIC [id number] 13:00:00 Test Item Value Reference Range Interpretation [...] code = CA) MG/DL 8.7-9.7 BASIC METABOLIC [id number] 12:59:00 Test Item Value Reference Range Interpretation [...] code = CA) MG/DL 8.7-9.7 GLUCOSE BEDSIDE [id number] 06:32:00 Test Item Value Reference Range Interpretation Comments GLUCOSE BEDSIDE TESTING (test code 144 MG/DL 60-99 H = GLUBED) GLUCOSE BEDSIDE [id number] 22:00:00 Test Item Value Reference Range Interpretation Comments GLUCOSE BEDSIDE TESTING (test code 154 MG/DL 60-99 H = GLUBED) GLUCOSE BEDSIDE [id number] 16:57:00 Test Item Value Reference Range Interpretation Comments GLUCOSE BEDSIDE TESTING (test code 124 MG/DL 60-99 H = GLUBED) GLUCOSE BEDSIDE [id number] 16:57:00 Test Item Value Reference Range Interpretation Comments GLUCOSE BEDSIDE TESTING (test code 189 MG/DL 60-99 H = GLUBED) GLUCOSE BEDSIDE [id number] 06:59:00 Test Item Value Reference Range Interpretation Comments GLUCOSE BEDSIDE TESTING (test code 119 MG/DL 60-99 H = GLUBED) GLUCOSE BEDSIDE [id number] 21:39:00 Test Item Value Reference Range Interpretation Comments GLUCOSE BEDSIDE TESTING (test code 172 MG/DL 60-99 H = GLUBED) GLUCOSE BEDSIDE [id number] 12:36:00 Test Item Value Reference Range Interpretation Comments GLUCOSE BEDSIDE TESTING (test code 155 MG/DL 60-99 H = GLUBED) - XR CHEST [id number] 09:12:00 Patient Name: BREA GILES Unit No: [id number] EXAMS: CPT CODE: [id number] XR CHEST 1V 09485 EXAM: Portable chest one view. Location code:J9 HISTORY: CHF COMPARISON: 06/25/2019 Findings: The cardiac silhouette is enlarged and stable in size. Stable prominent interstitial lung markings. No large pleural effusion or pneumothorax. The bones are intact. IMPRESSION: Stable findings of CHF. at 0912 Reported and signed by: Gil Pope M.D. CC: Nick Cabrera; Alexandr Ham; Viviana Thompson MD Technologist: Crystal Cleveland, RT (R) Transcrpt Date/Tm/Trnsp: 06/29/2019 (911) [email or web address] Orig Print D/T: S: 06/29/2019 (15) [facility] NAME: BREA GILES [id number] [address] PHYS: [place] [address] : 1945 AGE: 73 SEX: F LOC: Z.410 A PHONE #: [phone] EXAM DATE: 06/29/2019 STATUS: ADM IN FAX #: [phone] RADIOLOGY NO: PAGE 1 Signed ReportBASIC METABOLIC [id number] 07:40:00 Test Item Value Reference Range Interpretation [...] 8.8 MG/DL 8.4-10.2 N CA) BASIC METABOLIC [id number] 07:27:00 Test Item Value Reference Range Interpretation [...] code = CA) MG/DL 8.7-9.7 CBC W/AUTO [id number] 07:12:00 Test Item Value Reference Range Interpretation [...] = 0.00 K/mm3 0.0-0.1 N NRBC#) DIFFERENTIAL [id number] 07:12:00 Test Item Value Reference Range Interpretation Comments RBC MORPHOLOGY REQUIRED (test code = RBCM) PLATELET ESTIMATE (test code = PLTEST) ADEQUATE PLATELET MORPHOLOGY (test code = NORMAL PLTMORPH) CBC W/AUTO [id number] 07:12:00 Test Item Value Reference Range Interpretation [...] = 0.00 K/mm3 0.0-0.1 N NRBC#) DIFFERENTIAL [id number] 07:12:00 Test Item Value Reference Range Interpretation Comments RBC MORPHOLOGY REQUIRED (test code = RBCM) PLATELET ESTIMATE (test code = PLTEST) ADEQUATE PLATELET MORPHOLOGY (test code = NORMAL PLTMORPH) GLUCOSE BEDSIDE [id number] 06:19:00 Test Item Value Reference Range Interpretation Comments GLUCOSE BEDSIDE TESTING (test code 129 MG/DL 60-99 H = GLUBED) GLUCOSE BEDSIDE [id number] 20:30:00 Test Item Value Reference Range Interpretation Comments GLUCOSE BEDSIDE TESTING (test code 130 MG/DL 60-99 H = GLUBED) GLUCOSE BEDSIDE [id number] 18:01:00 Test Item Value Reference Range Interpretation Comments GLUCOSE BEDSIDE TESTING (test code 150 MG/DL 60-99 H = GLUBED) GLUCOSE BEDSIDE [id number] 13:32:00 Test Item Value Reference Range Interpretation Comments GLUCOSE BEDSIDE TESTING (test code 147 MG/DL 60-99 H = GLUBED) GLUCOSE BEDSIDE [id number] 07:06:00 Test Item Value Reference Range Interpretation Comments GLUCOSE BEDSIDE TESTING (test code 154 MG/DL 60-99 H = GLUBED) GLUCOSE BEDSIDE [id number] 20:58:00 Test Item Value Reference Range Interpretation Comments GLUCOSE BEDSIDE TESTING (test code 198 MG/DL 60-99 H = GLUBED) GLUCOSE BEDSIDE [id number] 16:23:00 Test Item Value Reference Range Interpretation Comments GLUCOSE BEDSIDE TESTING (test code 131 MG/DL 60-99 H = GLUBED) GLUCOSE BEDSIDE [id number] 14:29:00 Test Item Value Reference Range Interpretation Comments GLUCOSE BEDSIDE TESTING (test code 164 MG/DL 60-99 H = GLUBED) GLUCOSE BEDSIDE [id number] 14:29:00 Test Item Value Reference Range Interpretation Comments GLUCOSE BEDSIDE TESTING (test code 152 MG/DL 60-99 H = GLUBED) GLUCOSE BEDSIDE [id number] 14:29:00 Test Item Value Reference Range Interpretation Comments GLUCOSE BEDSIDE TESTING (test code 209 MG/DL 60-99 H = GLUBED) GLUCOSE BEDSIDE [id number] 14:29:00 Test Item Value Reference Range Interpretation Comments GLUCOSE BEDSIDE TESTING (test code 161 MG/DL 60-99 H = GLUBED) GLUCOSE BEDSIDE [id number] 06:27:00 Test Item Value Reference Range Interpretation Comments GLUCOSE BEDSIDE TESTING (test code 144 MG/DL 60-99 H = GLUBED) BASIC METABOLIC [id number] 06:25:00 Test Item Value Reference Range Interpretation [...] 9.0 MG/DL 8.4-10.2 N CA) BASIC METABOLIC [id number] 06:19:00 Test Item Value Reference Range Interpretation [...] code = MG/DL 8.7-9.7 CA) BASIC METABOLIC [id number] 06:17:00 Test Item Value Reference Range Interpretation [...] code = CA) MG/DL 8.7-9.7 GLUCOSE BEDSIDE [id number] 21:09:00 Test Item Value Reference Range Interpretation Comments GLUCOSE BEDSIDE TESTING (test code 236 MG/DL 60-99 H = GLUBED) BASIC METABOLIC [id number] 06:05:00 Test Item Value Reference Range Interpretation [...] 8.9 MG/DL 8.4-10.2 N CA) BASIC METABOLIC [id number] 05:46:00 Test Item Value Reference Range Interpretation [...] code = CA) MG/DL 8.7-9.7 BASIC METABOLIC [id number] 05:45:00 Test Item Value Reference Range Interpretation [...] code = CA) MG/DL 8.7-9.7 CBC W/AUTO [id number] 05:24:00 Test Item Value Reference Range Interpretation [...] = 0.02 K/mm3 0.0-0.1 N NRBC#) CPK-MB [id number] 00:47:00 Test Item Value Reference Range Interpretation Comments CREATINE KINASE (CK) (test code = 42 UNITS/L 30-135 N CK) CKMB (test code = CKMBT) 0.93 NG/ML 0.0-5.6 N CKMB INDEX (test code = CKMBI) 2.2 % 4.0-4.4 L CPK-MB [id number] 00:45:00 Test Item Value Reference Range Interpretation Comments CREATINE KINASE (CK) (test code = 42 UNITS/L 30-135 N CK) CKMB (test code = CKMBT) NG/ML 0.0-5.6 CKMB INDEX (test code = CKMBI) % 4.0-4.4 CPK-MB [id number] 17:46:00 Test Item Value Reference Range Interpretation Comments CREATINE KINASE (CK) (test code = 41 UNITS/L 30-135 CK) CKMB (test code = CKMBT) 0.98 NG/ML 0.0-5.6 N CKMB INDEX (test code = CKMBI) 2.4 % 4.0-4.4 L GLUCOSE BEDSIDE [id number] 16:58:00 Test Item Value Reference Range Interpretation Comments GLUCOSE BEDSIDE TESTING (test code 154 MG/DL 60-99 H = GLUBED) [id number] 14:02:00 Test Item Value Reference Range Interpretation Comments TROPONIN-I (test code = TROPI) 0.091 NG/ML 0.012-0.033 H GLUCOSE BEDSIDE [id number] 11:33:00 Test Item Value Reference Range Interpretation Comments GLUCOSE BEDSIDE TESTING (test code 202 MG/DL 60-99 H = GLUBED) BASIC METABOLIC [id number] 09:27:00 Test Item Value Reference Range Interpretation [...] code = 8.9 MG/DL 8.4-10.2 N CA) [id number] 09:27:00 Test Item Value Reference Range Interpretation Comments PHOSPHOROUS (test code = PHOS) 4.2 MG/DL 2.5-4.5 N [id number] 09:27:00 Test Item Value Reference Range Interpretation Comments MAGNESIUM (test code = MAG) 2.0 MG/DL 1.6-2.3 N CPK-MB [id number] 09:27:00 Test Item Value Reference Range Interpretation Comments CREATINE KINASE (CK) (test code = 28 UNITS/L 30-135 L CK) CKMB (test code = CKMBT) 1.00 NG/ML 0.0-5.6 N CKMB INDEX (test code = CKMBI) 3.6 % 4.0-4.4 L BASIC METABOLIC [id number] 09:18:00 Test Item Value Reference Range Interpretation [...] code = 8.9 MG/DL 8.4-10.2 N CA) [id number] 09:18:00 Test Item Value Reference Range Interpretation Comments PHOSPHOROUS (test code = PHOS) 4.2 MG/DL 2.5-4.5 N [id number] 09:18:00 Test Item Value Reference Range Interpretation Comments MAGNESIUM (test code = MAG) MG/DL 1.6-2.3 CPK-MB [id number] 09:18:00 Test Item Value Reference Range Interpretation Comments CREATINE KINASE (CK) (test code = 28 UNITS/L 30-135 L CK) CKMB (test code = CKMBT) NG/ML 0.0-5.6 CKMB INDEX (test code = CKMBI) % 4.0-4.4 BASIC METABOLIC [id number] 09:18:00 Test Item Value Reference Range Interpretation [...] code = 8.9 MG/DL 8.4-10.2 N CA) [id number] 09:18:00 Test Item Value Reference Range Interpretation Comments PHOSPHOROUS (test code = PHOS) 4.2 MG/DL 2.5-4.5 N [id number] 09:18:00 Test Item Value Reference Range Interpretation Comments MAGNESIUM (test code = MAG) 2.0 MG/DL 1.6-2.3 N CPK-MB [id number] 09:18:00 Test Item Value Reference Range Interpretation Comments CREATINE KINASE (CK) (test code = 28 UNITS/L 30-135 L CK) CKMB (test code = CKMBT) NG/ML 0.0-5.6 CKMB INDEX (test code = CKMBI) % 4.0-4.4 BASIC METABOLIC [id number] 09:17:00 Test Item Value Reference Range Interpretation [...] CALCIUM (test code = MG/DL 8.7-9.7 CA) [id number] 09:17:00 Test Item Value Reference Range Interpretation Comments PHOSPHOROUS (test code = PHOS) MG/DL 2.5-4.5 [id number] 09:17:00 Test Item Value Reference Range Interpretation Comments MAGNESIUM (test code = MAG) MG/DL 1.6-2.3 CPK-MB [id number] 09:17:00 Test Item Value Reference Range Interpretation Comments CREATINE KINASE (CK) (test code = UNITS/L 30-135 CK) CKMB (test code = CKMBT) NG/ML 0.0-5.6 CKMB INDEX (test code = CKMBI) % 4.0-4.4 BASIC METABOLIC [id number] 09:15:00 Test Item Value Reference Range Interpretation [...] CALCIUM (test code = CA) MG/DL 8.7-9.7 [id number] 09:15:00 Test Item Value Reference Range Interpretation Comments PHOSPHOROUS (test code = PHOS) MG/DL 2.5-4.5 [id number] 09:15:00 Test Item Value Reference Range Interpretation Comments MAGNESIUM (test code = MAG) MG/DL 1.6-2.3 CPK-MB [id number] 09:15:00 Test Item Value Reference Range Interpretation Comments CREATINE KINASE (CK) (test code = UNITS/L 30-135 CK) CKMB (test code = CKMBT) NG/ML 0.0-5.6 CKMB INDEX (test code = CKMBI) % 4.0-4.4 BASIC METABOLIC [id number] 09:14:00 Test Item Value Reference Range Interpretation [...] CALCIUM (test code = CA) MG/DL 8.7-9.7 [id number] 09:14:00 Test Item Value Reference Range Interpretation Comments PHOSPHOROUS (test code = PHOS) MG/DL 2.5-4.5 [id number] 09:14:00 Test Item Value Reference Range Interpretation Comments MAGNESIUM (test code = MAG) MG/DL 1.6-2.3 CPK-MB [id number] 09:14:00 Test Item Value Reference Range Interpretation Comments CREATINE KINASE (CK) (test code = UNITS/L 30-135 CK) CKMB (test code = CKMBT) NG/ML 0.0-5.6 CKMB INDEX (test code = CKMBI) % 4.0-4.4 CBC W/AUTO [id number] 08:55:00 Test Item Value Reference Range Interpretation [...] = 0.00 K/mm3 0.0-0.1 N NRBC#) DIFFERENTIAL [id number] 08:55:00 Test Item Value Reference Range Interpretation Comments RBC MORPHOLOGY REQUIRED (test code = RBCM) PLATELET ESTIMATE (test code = PLTEST) ADEQUATE PLATELET MORPHOLOGY (test code = NORMAL PLTMORPH) CBC W/AUTO [id number] 08:55:00 Test Item Value Reference Range Interpretation [...] = 0.00 K/mm3 0.0-0.1 N NRBC#) DIFFERENTIAL [id number] 08:55:00 Test Item Value Reference Range Interpretation Comments RBC MORPHOLOGY REQUIRED (test code = RBCM) PLATELET ESTIMATE (test code = PLTEST) ADEQUATE PLATELET MORPHOLOGY (test code = NORMAL PLTMORPH) - XR CHEST [id number] 08:06:00 Patient Name: BREA GILES Unit No: [id number] EXAMS: CPT CODE: [id number] XR CHEST 1V 13043 Single View Chest. Location: B2 Clinical Indication: 73-year-old with dyspnea Comparison: None F indings: An AP view of the chest was obtained. The heart is enlarged. There is prominence of the central vasculature and the mid/lower lung interstitium. There may be layering pleural fluid. No pneumothorax. No acute osseous abnormal normality. Impression: Findings are most compatible with congestive heart failure and resultant edema. at 0806 Reported and signed by: Alf Schwarz M.D. CC: Alexandr Ham; Viviana Thompson MD Technologist: Alan Pruitt, RT(R) Transcrpt Date/Tm/Trnsp: 06/25/2019 (0806) [email or web address] Orig Print D/T: S: 06/25/2019 (08) [facility] NAME: BREA GILES [address] [address] [address] PHYS: [place] [address] : 1945 AGE: 73 SEX: F LOC: Z.I10 A PHONE #: [phone] EXAM DATE: 06/25/2019 STATUS: ADM IN FAX #: [phone] RADIOLOGY NO: PAGE 1 Signed ReportGLUCOSE BEDSIDE [id number] 08:00:00 Test Item Value Reference Range Interpretation Comments GLUCOSE BEDSIDE TESTING (test code 155 MG/DL 60-99 H = GLUBED) COMPREHENSIVE METABOLIC [id number] 07:19:00 Test Item Value Reference Range Interpretation [...] H (test code = ALKP) COMPREHENSIVE METABOLIC [id number] 07:18:00 Test Item Value Reference Range Interpretation [...] 38-126 (test code = ALKP) COMPREHENSIVE METABOLIC [id number] 07:16:00 Test Item Value Reference Range Interpretation [...] code = UNITS/L 38-126 ALKP) COMPREHENSIVE METABOLIC [id number] 07:15:00 Test Item Value Reference Range Interpretation [...] code = UNITS/L 38-126 ALKP) LIPOPROTEIN LDL [id number] 05:23:00 Test Item Value Reference Range Interpretation Comments LIPOPROTEIN LDL DIRECT 84 mg/dL 100-129 L ===== (test code = LDLDIR) ======= ==Refe rence Interval: mg/dL mmol/L--------- ------ ------ ------ --Optimal <100 <2.6Near/above optimal 100-129 2.6-3.3Borderli ne High 130-159 3.4-4.1High 160 -189 4.1-4.9Very Hig h >=190 >=4.9==== ===== This LDL result is a direct measurement.=== ====== [id number] 05:23:00 Test Item Value Reference Range Interpretation Comments TROPONIN-I (test 0.127 NG/ML 0.012-0.033 HH CALLED TO Venkat barnhart O icu & code = TROPI) READBACK ON AT 0500 BY Maddison Ramirez LIPOPROTEIN LDL [id number] 05:02:00 Test Item Value Reference Range Interpretation Comments LIPOPROTEIN LDL DIRECT (test code = mg/dL 100-129 LDLDIR) [id number] 05:02:00 Test Item Value Reference Range Interpretation Comments TROPONIN-I (test 0.127 NG/ML 0.012-0.033 HH CALLED TO Venkat barnhart O icu & code = TROPI) READBACK ON AT 0500 BY Maddison Ramirez GLUCOSE BEDSIDE [id number] 03:17:00 Test Item Value Reference Range Interpretation Comments GLUCOSE BEDSIDE TESTING (test code 177 MG/DL 60-99 H = GLUBED) Notes Date/Time Note Provider Source 2021-05-16 15:14:00-00:00 [facility] ([facility]) EMERGENCY PROVIDER REPORT REPORT#:[id number] REPORT STATUS: Signed DATE:05/16/21 TIME: 1514 PATIENT: BREA GILES UNIT #: [id number] ROOM/BED: AGE: 75 SEX: F PCP PHYS: No Primary or Family Ph ysician SERVICE AUTHOR: Kirby Gruber * ALL edits or amendments must be made on the [employer] document * HPI-Trauma Minor/Fall Free Text HPI Notes Free Text HPI Notes 75-year-old female with a history of atrial fibr illation, pacemaker, hyperlipidemia, chronically with the use of a walker presents with head pain and right lower extremity pain a fter a trip and fall yesterday around 4 PM leaving a restaurant. Patient denies any loss of conscious ness, chest pain shortness of breath or neck pain. She states that her primary care physician sent her here for CT of her head to rule o ut any brain bleed. She reports headache but denies any focal numbness or weakness, blurred vision General Confirmed Patient Yes Initial Greet Date/Time 05/16/21 1419 Presentation Chief Complaint Fall Hx Obtained From Patient Risk-Trauma Minor/Fall Risk Stratification Paola Coma Score: Copyright Sir Ilir Joshua Copyright Sir Oral Joshua Eye opening: (4) Spontaneous Verbal response: (5) Oriented Best motor response: (6) Obeys commands GCS Score: 15 Intracranial Bleed Age (<1 yr or >60 yrs), Blood thinners Review of Systems ROS Statements All systems rev neg except as marked. Free Text ROS Notes Free Text ROS Notes denies focal neuro deficits cp sob or any nausea/vomiting Past Medical History - Adult Stated Complaint FALL YESTERDAY +HEADSTRIKE +BLO OD THINNERS UNK LOC Allergies Coded Allergies: No Known Allergies (06/25/19) Home Medications Active Scripts ACETAMINOPHEN (TYLENOL) 650 MG PO Q6H PRN PRN PA IN 1-5/HEADACHE/FEVER ACETAMINOPHEN (TYLENOL) 650 MG PO Q6H PRN PRN P AIN 1-5/HEADACHE/FEVER #1 TAB Prov: 07/04/19 APIXABAN (ELIQUIS) 5 MG PO BID APIXABAN (ELIQUIS) 5 MG PO BID #60 TABS Ref 1 Prov: 07/21/19 AMIODARONE (CORDARONE) 200 MG PO BID AMIODARONE (CORDARONE) 200 MG PO BID #60 TAB Re f 1 Prov: 07/21/19 CARVEDILOL (COREG) 12.5 MG PO Q12HR CARVEDILOL (COREG) 12.5 MG PO Q12HR #60 TAB Ref 1 Prov: 07/21/19 DIGOXIN (LANOXIN) 0.125 MG PO DAILY DIGOXIN (LANOXIN) 0.125 MG PO DAILY #30 TAB Prov: 07/21/19 FUROSEMIDE (LASIX) 40 MG PO DAILY FUROSEMIDE (LASIX) 40 MG PO DAILY #30 TABS Prov: 07/21/19 Sacubitril/Valsartan (Entresto 24 MG-26 MG Table t) 1 TAB PO BID Sacubitril/Valsartan (Entresto 24 MG-26 MG Tabl et) 1 TAB PO BID #10 TAB Prov: 07/13/19 metFORMIN (GLUCOPHAGE) 1,000 MG PO BID MEALS metFORMIN (GLUCOPHAGE) 1,000 MG PO BID MEALS #6 0 TAB Prov: 07/13/19 ASPIRIN 81 MG PO DAILY ASPIRIN 81 MG PO DAILY #30 TAB Prov: 07/13/[address] (CYMBALTA) 60 MG PO BID DULoxetine DR (CYMBALTA) 60 MG PO BID #30 CAP Prov: 07/13/19 HYDROcodone/APAP (NORCO 5/325) 1 TAB PO Q4H PRN PRN PAIN SCALE 4-6 HYDROcodone/APAP (NORCO 5/325) 1 TAB PO Q4H PRN PRN PAIN SCALE 4-6 #20 TAB Prov: 07/13/[address] (OMEPRAZOLE) 20 MG PO DAILY OMEPRAZOLE DR (OMEPRAZOLE) 20 MG PO DAILY #30 T AB Prov: 07/13/19 predniSONE 20 MG PO DAILY predniSONE 20 MG PO DAILY #14 TAB Prov: 07/13/19 MELATONIN 6 MG PO BEDTIME PRN SLEEP MELATONIN 6 MG PO BEDTIME PRN SLEEP #30 TAB Prov: 07/13/19 Reported Medications LATANOPROST (XALATAN 0.005% OPH SOLN) 1 DROP E ACH EYE BEDTIME Calculated Suicide Risk (nurs) No risk Past Medical History: Reports: Arthritis, Asthma, Congestive heart chance lure, Cardiac dysrhythmias, Chronic pain. Additional Medical History FMR. KAMALA. TEMPORAL ARTERITIS. CHF. 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 NO H/O CAD; cardiac cath was negative. BURSITIS OF THE KNEE. Past Surgical History: Reports: Cholecystectomy, Hernia repair, Hystere ctomy. Additional Surgical History Right total knee replacement. Additional Family History Father of lung cancer. Mother of colon cancer. Son of Crohn's disease at age 41. Identical twin has CAD. One sister has some rare arthritis, and DM. Alcohol Use Denies EtOH use Drug Use Denies recreational drugs Smoking status: Smoking status for patients 13 years old or old er: Never Smoker Other Social History Retired, Good social suppor t Physical Exam Vital Signs Vital Signs First Documented: Result Date Time Pulse Ox 98 05/16 1449 B/P 150/78 / 1449 B/P Mean 102 05/16 1449 O2 Delivery Room air 05/16 144 Temp 36.9 05/16 1449 Pulse 60 05/16 1449 Resp 16 05/16 1449 Last Documented: Result Date Time Pulse Ox 98 05/16 1449 B/P 150/78 05/16 1449 B/P Mean 102 05/16 1449 O2 Delivery Room air 05/16 144 Temp 36.9 05/16 1449 Pulse 60 05/16 1449 Resp 16 05/16 1449 Review of Vital Signs Reviewed Free Text PE Notes Free Text PE Notes General: Awake, Alert and Oriented, Cooperative, non-toxic, no distress Head: small hematoma to the R parietal/temporal scalp, abrasions are hemostatic, normocephalic Eyes: Atraumatic,, No perior bital swelling or redness, EOMI and painless, PERRLA ENT: Atraumatic, MMM, uvula midline, airway posadas nt, pharynx normal Neck: Atraumatic, supple, non tender, tr achea midline, no swelling, no midline tenderness Resp: Atraumatic, Nml breath sounds B, no wheezi ng, rales or rhonchi, no respiratory distress, No Crepitus, no tenderness CV: Nml HR, Nml Rhythm, No murmurs, rubs or clic ks, Radial and pedal pulses present and 2+, Abd: Atraumatic, Soft, Non-tender, No guarding, No rebound, No distention Back: Atraumatic, No midline tenderness, no step offs MSK LE: mild tenderness with palpation over 2cm area of ecchymosis to lateral thigh, No swelling, ROM testing is nml and painl ess MSK UE: Atraumatic, Nontender, No swelling, ROM testing is nml and painless Skin: Nml color, warm, Dry, No swelling, No nicole a Neuro: Oriented X3, Speech n ml, moves all extremeties equally, normal gait, nml sensory function to distal Extremeties Psych: Affect Nml, Mood Nml Interpretation Diagnostics Lab Results Interpretation Considerations Independ review imaging, Reviewed prior records Results Laboratory Tests 05/16/21 1532: [Embedded Image Not Available] Laboratory Tests: 05/16 05/16 05/16 1725 1532 1532 Chemistry Sodium (134 - 147 mEq/L) 140 Potassium (3.4 - 5.0 mEq/L) 4.0 Chloride (100 - 108 mEq/L) 107 Carbon Dioxide (21 - 33 mEq/l) 26 Anion Gap (0 - 20) 11 BUN (7 - 18 mg/dL) 15 Creatinine (0.6 - 1.3 mg/dL) 1.4 H Glomerular Filtr Rate (70 - 80) 36.7 L Glucose (70 - 110 mg/dL) 183 H Calcium (8.0 - 10.5 mg/dL) 9.6 Troponin I (0.000 - 0.045 ng/mL) 0.031 B-Natriuretic Peptide (0 - 100 PG/ML) 151.0 H Coagulation INR (0.8 - 1.2) 1.1 PTT (Alex) (25.0 - 39.5 Seconds) 31.0 PT Patient/Control Mix (9.3 - 12.9 SECONDS) 11. 9 Hematology WBC (4.5 - 11.0 x10 3/uL) 10.4 RBC (3.54 - 5.02 x10 6/uL) 4.39 Hgb (11.0 - 15.0 g/dL) 11.6 Hct (33.0 - 45.0 %) 39.2 MCV (81.0 - 99.0 fL) 89.3 MCH (27.0 - 33.0 pg) 26.4 L MCHC (33.0 - 37.0 g/dL) 29.6 L RDW (11.5 - 14.5 %) 18.0 H Plt Count (150 - 400 x10 3/uL) 247 MPV (7.0 - 9.0 fL) 10.1 H Neut % (Auto) (56.0 - 77.0 %) 75.2 Lymph % (Auto) (14.0 - 32.0 %) 11.5 L Baca % (Auto) (4.8 - 9.0 %) 10.7 H Eos % (Auto) (0.3 - 3.7 %) 1.5 Baso % (Auto) (0.0 - 2.0 %) 0.7 Neut # (Auto) (2.0 - 7.6 x10 3/uL) 7.84 H Lymph # (Auto) (1.0 - 3.8 x10 3/uL) 1.20 Baca # (Auto) (0.1 - 0.8 x10 3/uL) 1.12 H Eos # (Auto) (0.0 - 0.2 x10 3/uL) 0.16 Baso # (Auto) (0.0 - 0.2 x10 3/uL) 0.07 Abs Immat Gran (auto) (0.00 - 0.03 x10 3/uL) 0 .04 H Add Manual Diff NO Immature Gran % (0.0 - 2.0 %) 0.4 Nucleated RBC % (0 - 0 %) 0.0 Nucleated RBCs # (Man) (0.0 - 0.1 x10 3/uL) 0.0 0 Urines Urine Color (YEL/STRAW) YELLOW Urine Appearance (CLEAR) SL CLOUDY Urine pH (5.0 - 7.0) 5.0 Ur Specific Poston (1.005 - 1.030) 1.011 Urine Protein (NEGATIVE) NEGATIVE Urine Glucose (UA) (NEGATIVE) 3+ H Urine Ketones (NEGATIVE) NEGATIVE Urine Blood (NEGATIVE) NEGATIVE Urine Nitrite (NEGATIVE) NEGATIVE Urine Bilirubin (NEGATIVE) NEGATIVE Urine Urobilinogen (0.2 - 1.0 mg/dL) 0.2 Ur Leukocyte Esterase (NEGATIVE) 2+ H Urine RBC (0 - 3 RBC/HPF) 0-3 Urine WBC (0 - 3 WBC/HPF) 10-20 H Ur Squamous Epith Cells (NONE SEEN /HPF) 0-5 Urine Bacteria (NONE SEEN /HPF) NONE SEEN Hyaline Casts (NONE SEEN /LPF) 3-5 Urine Mucus (NONE SEEN /LPF) TRACE Microbiology: Date/Time Procedure - Status Source Growth 05/16 1725 Urine Culture - RECD URINE Recent Impressions: RADIOLOGY - XR HIP W/PEL UNI 2+V RT 05/16 1552 Report Impression - Status: SIGNED Entered: 05/16/2021 1607 IMPRESSION: 1. No acute bony abnormalities of the right hip are detected. SL: 131 Impression By: Laquita Meza M.D. RADIOLOGY - XR FEMUR MIN 2 VWS RT 05/16 1552 Report Impression - Status: SIGNED Entered: 05/16/2021 1607 IMPRESSION: 1. Negative right femur. 2. Note is made of a right total knee prosthesis which appears to be in good position. Impression By: [email or web address] Tere Deng RADIOLOGY - XR CHEST 1 V 05/16 1552 Report Impression - Status: SIGNED Entered: 05/16/2021 1605 IMPRESSION: 1. No radiographic evidence of acute cardiopulmo nary disease. SL: 131 Impression By: Laquita Meza M.D. CAT SCAN - CT C-SPINE W/O CONT 05/16 1609 Report Impression - Status: SIGNED Entered: 05/16/2021 1645 IMPRESSION: 1. No acute fractures or subluxations of the cer vical spine. 2. Degenerative changes. 3. Right thyroid nodule. If indicated, a nonemer gent thyroid ultrasound can be performed further assessment. Impression By: [email or web address] Raysa Malik M.D. CAT SCAN - CT HEAD/BRAIN W/O CONT 05/16 1609 Report Impression - Status: SIGNED Entered: 05/16/2021 1624 IMPRESSION: 1. Negative for acute intracranial injury. 2. Mild chronic microvascular ischemic changes. Impression By: Mary Carmen Selby M.D. Lab Imaging Statement Laboratory radiographic studies reviewed and con sidered in the medical decision-making. ECG #1 Interpretation ECG Documented in MUSE Yes Date 05/16/21 Time 1521 Interpreted by and reviewed by me, ED physician NL ECG Interpretation No acute ischemic changes Rate 60 Rhythm Pacemaker rhythm Re-Evaluation MDM Re-Evaluation/Progress #1 Text/Dict Note NV intact. walking with her assistance o f walker as per her baseline. no acute distress. Time of Re-Eval 1729 Re-Eval Status Improved Eval Following Treatment Pt. feels better, Condi tion improved Pain Re-Evaluation Denies pain ED Course Medication(s) Ordered Medication(s) Ordered: Central Nervous System Agents Sig/Felix Start time Last Medication Dose Route Stop Time Status Admin Acetaminophen 650 MG X1ED STA 05/16 1432 DC / PO 05/16 1433 1509 Serums, Toxoids, And Vaccines Sig/Felix Start time Last Medication Dose Route Stop Time Status Admin Diphtheria/Tetanus/ 0.5 ML X1ED STA 05/16 1432 CAN Acell Pertussis IM 05/16 1433 Patient Discharge Departure Vital Signs/Condition Vital Signs First Documented: Result Date Time Pulse Ox 98 05/16 1449 B/P 150/78 05/16 1449 B/P Mean 102 05/16 1449 O2 Delivery Room air 05/16 1449 Temp 36.9 05/16 1449 Pulse 60 05/16 1449 Resp 16 05/16 1449 Last Documented: Result Date Time Pulse Ox 98 05/16 1449 B/P 150/78 05/16 1449 B/P Mean 102 05/16 1449 O2 Delivery Room air 05/16 1449 Temp 36.9 05/16 1449 Pulse 60 / 1449 Resp 16 05/16 1449 All vital signs available at the time of this en try have been reviewed. Condition Improved Clinical Impression Clinical Impression Primary Impression: Fall Secondary Impressions: Abrasion, Hematoma Disposition Decision Discharge )( Discharged to Home Yes )( Time 1731 )( Date 05/16/21 Discharge/Care Plan Counseled Regarding Diagnosi s, Lab results, Imaging studies, Prescriptions, Need for follow-up, When to return to ED (Auto) Prescriptions Current Visit Scripts CEPHALEXIN (KEFLEX) 500 MG PO Q6H CEPHALEXIN (KEFLEX) 500 MG PO Q6H #28 CAPS Patient Instructions ED Abrasions, ED Hematoma, ED Mechanical Fall, Urinary Tract Infections in Women Referrals PRIMARY CARE: 2-3 Days Electronically Signed by Kirby Gruber on at 2206 RPT #:[id number] END OF REPORT 2021-05-16 15:14:00-00:00 [facility] ([facility]) EMERGENCY PROVIDER REPORT REPORT#:[id number] REPORT STATUS: Signed DATE:05/16/21 TIME: 1513 PATIENT: BREA GILES UNIT #: [id number] ROOM/BED: AGE: 75 SEX: F PCP PHYS: No Primary or Family Ph ysician SERVICE AUTHOR: Kirby Gruber * ALL edits or amendments must be made on the Myrio/computer document * Kirby Gruber 05/16/21 1514: HPI-Trauma Minor/Fall Free Text HPI Notes Free Text HPI Notes 75-year-old female with a history of atrial fibr illation, pacemaker, hyperlipidemia, chronically with the use of a walker presents with head pain and right lower extremity pain a fter a trip and fall yesterday around 4 PM leaving a restaurant. Patient denies any loss of conscious ness, chest pain shortness of breath or neck pain. She states that her primary care physician sent her here for CT of her head to rule o ut any brain bleed. She reports headache but denies any focal numbness or weakness, blurred vision General Confirmed Patient Yes Initial Greet Date/Time 05/16/21 1419 Presentation Chief Complaint Fall Hx Obtained From Patient Risk-Trauma Minor/Fall Risk Stratification Paola Coma Score: Copyright Sir Ilir Joshua Copyright Sir Oral Joshua Eye opening: (4) Spontaneous Verbal response: (5) Oriented Best motor response: (6) Obeys commands GCS Score: 15 Intracranial Bleed Age (<1 yr or >60 yrs), Blood thinners Review of Systems ROS Statements All systems rev neg except as marked. Free Text ROS Notes Free Text ROS Notes denies focal neuro deficits cp sob or any nausea/vomiting Past Medical History - Adult Stated Complaint FALL YESTERDAY +HEADSTRIKE +BLO OD THINNERS UNK LOC Allergies Coded Allergies: No Known Allergies (06/25/19) Home Medications Active Scripts ACETAMINOPHEN (TYLENOL) 650 MG PO Q6H PRN PRN PA IN 1-5/HEADACHE/FEVER ACETAMINOPHEN (TYLENOL) 650 MG PO Q6H PRN PRN P AIN 1-5/HEADACHE/FEVER #1 TAB Prov: 07/04/19 APIXABAN (ELIQUIS) 5 MG PO BID APIXABAN (ELIQUIS) 5 MG PO BID #60 TABS Ref 1 Prov: 07/21/19 AMIODARONE (CORDARONE) 200 MG PO BID AMIODARONE (CORDARONE) 200 MG PO BID #60 TAB Re f 1 Prov: 07/21/19 CARVEDILOL (COREG) 12.5 MG PO Q12HR CARVEDILOL (COREG) 12.5 MG PO Q12HR #60 TAB Ref 1 Prov: 07/21/19 DIGOXIN (LANOXIN) 0.125 MG PO DAILY DIGOXIN (LANOXIN) 0.125 MG PO DAILY #30 TAB Prov: 07/21/19 FUROSEMIDE (LASIX) 40 MG PO DAILY FUROSEMIDE (LASIX) 40 MG PO DAILY #30 TABS Prov: 07/21/19 Sacubitril/Valsartan (Entresto 24 MG-26 MG Table t) 1 TAB PO BID Sacubitril/Valsartan (Entresto 24 MG-26 MG Tabl et) 1 TAB PO BID #10 TAB Prov: 07/13/19 metFORMIN (GLUCOPHAGE) 1,000 MG PO BID MEALS metFORMIN (GLUCOPHAGE) 1,000 MG PO BID MEALS #6 0 TAB Prov: 07/13/19 ASPIRIN 81 MG PO DAILY ASPIRIN 81 MG PO DAILY #30 TAB Prov: 07/13/[address] (CYMBALTA) 60 MG PO BID DULoxetine DR (CYMBALTA) 60 MG PO BID #30 CAP Prov: 07/13/19 HYDROcodone/APAP (NORCO 5/325) 1 TAB PO Q4H PRN PRN PAIN SCALE 4-6 HYDROcodone/APAP (NORCO 5/325) 1 TAB PO Q4H PRN PRN PAIN SCALE 4-6 #20 TAB Prov: 07/13/[address] (OMEPRAZOLE) 20 MG PO DAILY OMEPRAZOLE DR (OMEPRAZOLE) 20 MG PO DAILY #30 T AB Prov: 07/13/19 predniSONE 20 MG PO DAILY predniSONE 20 MG PO DAILY #14 TAB Prov: 07/13/19 MELATONIN 6 MG PO BEDTIME PRN SLEEP MELATONIN 6 MG PO BEDTIME PRN SLEEP #30 TAB Prov: 07/13/19 Reported Medications LATANOPROST (XALATAN 0.005% [facility] SOLN) 1 DROP E ACH EYE BEDTIME Calculated Suicide Risk (nurs) No risk Past Medical History: Reports: Arthritis, Asthma, Congestive heart chance lure, Cardiac dysrhythmias, Chronic pain. Additional Medical History FMR. KAMALA. TEMPORAL ARTERITIS. CHF. BORDERLINE DM. INTRACRANIAL TUMOR for which she's being follow ed at [facility], and she was told it's benign. NO H/O CAD; cardiac cath was negative. BURSITIS OF THE KNEE. Past Surgical History: Reports: Cholecystectomy, Hernia repair, Hystere ctomy. Additional Surgical History Right total knee replacement. Additional Family History Father of lung cancer. Mother of colon cancer. Son of Crohn's disease at age 41. Identical twin has CAD. One sister has some rare arthritis, and DM. Alcohol Use Denies EtOH use Drug Use Denies recreational drugs Smoking status: Smoking status for patients 13 years old or old er: Never Smoker Other Social History Retired, Good social suppor t Physical Exam Vital Signs Vital Signs First Documented: Result Date Time Pulse Ox 98 05/16 1449 B/P 150/78 / 1449 B/P Mean 102 05/16 1449 O2 Delivery Room air 05/16 1449 Temp 36.9 05/16 1449 Pulse 60 05/16 1449 Resp 16 05/16 1449 Last Documented: Result Date Time Pulse Ox 98 05/16 1449 B/P 150/78 / 1449 B/P Mean 102 / 1449 O2 Delivery Room air 05/16 1449 Temp 36.9 05/16 1449 Pulse 60 05/16 1449 Resp 16 05/16 1449 Review of Vital Signs Reviewed Free Text PE Notes Free Text PE Notes General: Awake, Alert and Oriented, Cooperative, non-toxic, no distress Head: small hematoma to the R parietal/temporal scalp, abrasions are hemostatic, normocephalic Eyes: Atraumatic,, No perior bital swelling or redness, EOMI and painless, PERRLA ENT: Atraumatic, MMM, uvula midline, airway posadas nt, pharynx normal Neck: Atraumatic, supple, non tender, tr achea midline, no swelling, no midline tenderness Resp: Atraumatic, Nml breath sounds B, no wheezi ng, rales or rhonchi, no respiratory distress, No Crepitus, no tenderness CV: Nml HR, Nml Rhythm, No murmurs, rubs or clic ks, Radial and pedal pulses present and 2+, Abd: Atraumatic, Soft, Non-tender, No guarding, No rebound, No distention Back: Atraumatic, No midline tenderness, no step offs MSK LE: mild tenderness with palpation over 2cm area of ecchymosis to lateral thigh, No swelling, ROM testing is nml and painl ess MSK UE: Atraumatic, Nontender, No swelling, ROM testing is nml and painless Skin: Nml color, warm, Dry, No swelling, No nicole a Neuro: Oriented X3, Speech n ml, moves all extremeties equally, normal gait, nml sensory function to distal Extremeties Psych: Affect Nml, Mood Nml Interpretation Diagnostics Lab Results Interpretation Considerations Independ review imaging, Reviewed prior records Results Laboratory Tests 05/16/21 1532: [Embedded Image Not Available] Laboratory Tests: 05/16 05/16 05/16 1725 1532 1532 Chemistry Sodium (134 - 147 mEq/L) 140 Potassium (3.4 - 5.0 mEq/L) 4.0 Chloride (100 - 108 mEq/L) 107 Carbon Dioxide (21 - 33 mEq/l) 26 Anion Gap (0 - 20) 11 BUN (7 - 18 mg/dL) 15 Creatinine (0.6 - 1.3 mg/dL) 1.4 H Glomerular Filtr Rate (70 - 80) 36.7 L Glucose (70 - 110 mg/dL) 183 H Calcium (8.0 - 10.5 mg/dL) 9.6 Troponin I (0.000 - 0.045 ng/mL) 0.031 B-Natriuretic Peptide (0 - 100 PG/ML) 151.0 H Coagulation INR (0.8 - 1.2) 1.1 PTT (Long) (25.0 - 39.5 Seconds) 31.0 PT Patient/Control Mix (9.3 - 12.9 SECONDS) 11. 9 Hematology WBC (4.5 - 11.0 x10 3/uL) 10.4 RBC (3.54 - 5.02 x10 6/uL) 4.39 Hgb (11.0 - 15.0 g/dL) 11.6 Hct (33.0 - 45.0 %) 39.2 MCV (81.0 - 99.0 fL) 89.3 MCH (27.0 - 33.0 pg) 26.4 L MCHC (33.0 - 37.0 g/dL) 29.6 L RDW (11.5 - 14.5 %) 18.0 H Plt Count (150 - 400 x10 3/uL) 247 MPV (7.0 - 9.0 fL) 10.1 H Neut % (Auto) (56.0 - 77.0 %) 75.2 Lymph % (Auto) (14.0 - 32.0 %) 11.5 L Baca % (Auto) (4.8 - 9.0 %) 10.7 H Eos % (Auto) (0.3 - 3.7 %) 1.5 Baso % (Auto) (0.0 - 2.0 %) 0.7 Neut # (Auto) (2.0 - 7.6 x10 3/uL) 7.84 H Lymph # (Auto) (1.0 - 3.8 x10 3/uL) 1.20 Baca # (Auto) (0.1 - 0.8 x10 3/uL) 1.12 H Eos # (Auto) (0.0 - 0.2 x10 3/uL) 0.16 Baso # (Auto) (0.0 - 0.2 x10 3/uL) 0.07 Abs Immat Gran (auto) (0.00 - 0.03 x10 3/uL) 0. 04 H Add Manual Diff NO Immature Gran % (0.0 - 2.0 %) 0.4 Nucleated RBC % (0 - 0 %) 0.0 Nucleated RBCs # (Man) (0.0 - 0.1 x10 3/uL) 0. 00 Urines Urine Color (YEL/STRAW) YELLOW Urine Appearance (CLEAR) SL CLOUDY Urine pH (5.0 - 7.0) 5.0 Ur Specific Poston (1.005 - 1.030) 1.011 Urine Protein (NEGATIVE) NEGATIVE Urine Glucose (UA) (NEGATIVE) 3+ H Urine Ketones (NEGATIVE) NEGATIVE Urine Blood (NEGATIVE) NEGATIVE Urine Nitrite (NEGATIVE) NEGATIVE Urine Bilirubin (NEGATIVE) NEGATIVE Urine Urobilinogen (0.2 - 1.0 mg/dL) 0.2 Ur Leukocyte Esterase (NEGATIVE) 2+ H Urine RBC (0 - 3 RBC/HPF) 0-3 Urine WBC (0 - 3 WBC/HPF) 10-20 H Ur Squamous Epith Cells (NONE SEEN /HPF) 0-5 Urine Bacteria (NONE SEEN /HPF) NONE SEEN Hyaline Casts (NONE SEEN /LPF) 3-5 Urine Mucus (NONE SEEN /LPF) TRACE Microbiology: Date/Time Procedure - Status Source Growth 05/16 172 Urine Culture - RES URINE Recent Impressions: RADIOLOGY - XR HIP W/PEL UNI 2+V RT 05/16 1552 Report Impression - Status: SIGNED Entered: 05/16/2021 1607 IMPRESSION: 1. No acute bony abnormalities of the right hip are detected. SL: 131 Impression By: Laquita Meza M.D. RADIOLOGY - XR FEMUR MIN 2 VWS RT 05/16 1552 Report Impression - Status: SIGNED Entered: 05/16/2021 1607 IMPRESSION: 1. Negative right femur. 2. Note is made of a right total knee prosthesis which appears to be in good position. Impression By: [email or web address] Tere Deng RADIOLOGY - XR CHEST 1 V 05/16 1552 Report Impression - Status: SIGNED Entered: 05/16/2021 1605 IMPRESSION: 1. No radiographic evidence of acute cardiopulmo nary disease. SL: 131 Impression By: Laquita Meza M.D. CAT SCAN - CT C-SPINE W/O CONT 05/16 1609 Report Impression - Status: SIGNED Entered: 05/16/2021 1645 IMPRESSION: 1. No acute fractures or subluxations of the cer vical spine. 2. Degenerative changes. 3. Right thyroid nodule. If indicated, a nonemer gent thyroid ultrasound can be performed further assessment. Impression By: [email or web address] Raysa Malik M.D. CAT SCAN - CT HEAD/BRAIN W/O CONT 05/16 1609 Report Impression - Status: SIGNED Entered: 05/16/2021 1624 IMPRESSION: 1. Negative for acute intracranial injury. 2. Mild chronic microvascular ischemic changes. Impression By: Mary Carmen Selby M.D. Lab Imaging Statement Laboratory radiographic studies reviewed and con sidered in the medical decision-making. ECG #1 Interpretation ECG Documented in MUSE Yes Date 05/16/21 Time 1521 Interpreted by and reviewed by me, ED physician NL ECG Interpretation No acute ischemic changes Rate 60 Rhythm Pacemaker rhythm Re-Evaluation MDM Re-Evaluation/Progress #1 Text/Dict Note NV intact. walking with her assistance o f walker as per her baseline. no acute distress. Time of Re-Eval 1729 Re-Eval Status Improved Eval Following Treatment Pt. feels better, Condi tion improved Pain Re-Evaluation Denies pain ED Course Medication(s) Ordered Medication(s) Ordered: Central Nervous System Agents Sig/Felix Start time Last Medication Dose Route Stop Time Status Admin Acetaminophen 650 MG X1ED STA 05/16 1432 DC / PO 05/16 1433 1509 Serums, Toxoids, And Vaccines Sig/Felix Start time Last Medication Dose Route Stop Time Status Admin Diphtheria/Tetanus/ 0.5 ML X1ED STA 05/16 1432 CAN Acell Pertussis IM 05/16 1433 Patient Discharge Departure Vital Signs/Condition Vital Signs First Documented: Result Date Time Pulse Ox 98 05/16 1449 B/P 150/78 / 1449 B/P Mean 102 05/16 1449 O2 Delivery Room air 05/16 1449 Temp 36.9 05/16 1449 Pulse 60 / 1449 Resp 16 05/16 1449 Last Documented: Result Date Time Pulse Ox 98 05/16 1449 B/P 150/78 / 1449 B/P Mean 102 / 1449 O2 Delivery Room air 05/16 1449 Temp 36.9 /14 1449 Pulse 60 / 1449 Resp 16 05/16 1449 All vital signs available at the time of this en try have been reviewed. Condition Improved Clinical Impression Clinical Impression Primary Impression: Fall Secondary Impressions: Abrasion, Hematoma Disposition Decision Discharge )( Discharged to Home Yes )( Time 1731 )( Date 05/16/21 Discharge/Care Plan Counseled Regarding Diagnosi s, Lab results, Imaging studies, Prescriptions, Need for follow-up, When to return to ED (Auto) Prescriptions Current Visit Scripts CEPHALEXIN (KEFLEX) 500 MG PO Q6H CEPHALEXIN (KEFLEX) 500 MG PO Q6H #28 CAPS Patient Instructions ED Abrasions, ED Hematoma, ED Mechanical Fall, Urinary Tract Infections in Women Referrals PRIMARY CARE: 2-3 Days [place] 05/17/21 0933: HPI-Trauma Minor/Fall Free Text HPI Notes Free Text HPI Notes Patient evaluated with midlevel. 75-year-old female presents after a fall and striking her head but without any loss of consciousness. Patie nt has a history of A. fib and is presumed to be on anticoagulants. Physical Exam Vital Signs Review of Vital Signs Reviewed Focused PE General/Const General/Const Awake, Alert, No acute di stress, Well appearing, Well developed , Well hydrated, Well nourished, Cooperative, No t toxic appearing MS Head Head Atraumatic, Normocephalic MS Neck Neck Non-tender, No midline vertebral tend Free Text PE Notes Free Text PE Notes Agree with assessment, labs, x-rays, CT scans, i mpressions, and disposition. Patient Discharge Departure Supervising Physician Note MidLv/Doc Saw Pt 1 I have seen and evaluated th is patient and agree with the nurse practitioner or physician cancer genetics assistant's docume ntation and assessment. Documentation of one or more elements of my assessment are included in the ma dical record. Electronically Signed by Kirby Gruber on at 2206 at 0938 RPT #:[id number] END OF REPORT 2019-07-21 19:51:00-00:00 [facility] ([facility]) Discharge Summary REPORT#:[id number] REPORT STATUS: Signed DATE:07/21/19 TIME: 1950 PATIENT: BREA GILES UNIT #: [id number] ROOM/BED: [address] : 45 AGE: 73 SEX: F ATTEND: Martin Beard MD ADM AUTHOR: Dexter Beard MD * ALL edits or amendments must be made on the el ectronic/computer document * PCP PCP Discharge to: home General Information Free Text A P: Pt seen in room today, feeling ok, denies cp/sob . She's in NSR, BP stable and lab shows hyponatremia impro ving 130 c/w diuretic induced. d/w Dr Ham, will d /c home on eliquis today. De crease lasix 40 mg daily, and resume entresto. pt to f/u dr Ham 1-2 weeks Date of admission: Observation Start Date: Date of admission: 07/17/19 Date of discharge: 07/21/19 Discharge diagnosis: 1. V-tach with AICD discharge 2. Acute on chronic systolic CHF exacerbation 3. paroxysmal afib, currently in sinus rhythm wi th frequentr PVCs 4. H/o temporal arteritis 5. Fibromyalgia Hospital course: Pt is 73 yoF pleasant lady from [place] wit h h/o dilated cardiomyopathy LVEF < 30% s/p recent AICD p sharlene, admitted with cp and sob after her device defibrillated last night. Pt related no palpitat ion or dizziness prior to her AICD fired. [facility] and was transfered here today due to her cardio logist Dr Ham. Currently, she;'s feleing better, denies cp/sob. Pt has been complaint with all he r medications including her diuretics and entresto. She remains in sinus rhy thm with frequent PVS. Brief review of her AICD interrogation report indicate d multiple V-tach episodes. 07/18/2019 Pt feelingbetter, denies any further AICD discha rge, cp/sob. She's in sinus rhythm with PVCs, and has be en started on amiodarone and increased coreg dose by Dr ham. BP borderline low, will change lasix to PO and d/c metolazone. - continue medical therapy and monitor for any arrhythmia 07/19/2019 Pt remains in sinus-arrhythmia but went in/out of afib since last night per Dr Ham. Eliquis started. creatinine rising 1.2. No further AICD discharge. Leukocytosis with WBC 16K noted. - decrease lasix 40 mg daily and aldactone 25 m g daily - Agree with starting eliquis - Transfer to telemetry, check UA and repeat CX R in AM 07/20/2019 Pt clinically stable, denies cp/sob, but still c /o easy fatigeability. BP ok this morning but dropped to 80-90s in afternoon. Lab shows worsening hyponatremia 129. She remains in NSR. - d/c diuretics and entresto due to hypotension . continue coreg, amio, and digoxin - NS 500ml bolus , then another 500 ml NS 75cc/ hr. - Hyponatremia likely due to diuretic u se, but will c/s nephrology in case it worsens Consultants: cardiology Pt. condition on discharge: fair, improved, stab le Med Rec PCP PCP: PCP: Viviana Thompson [facility] Discharge meds: Stop taking the following medications: SPIRONOLACTONE (ALDACTONE) 25 MG TAB 50 MILLIGRAM ORAL DAILY. Qty = 10 METOLAZONE (ZAROXOLYN) 2.5 MG TAB 2.5 MILLIGRAM ORAL TUESDAY, TUESDAY, TUESDAY. Q ty = 10 CARVEDILOL (COREG) 6.25 MG TAB 6.25 MILLIGRAM ORAL EVERY 12 HOURS. Qty = 60 FUROSEMIDE (LASIX) 40 MG TAB 40 MILLIGRAM ORAL TWICE DAILY. Qty = 30 Continue taking these medications: ACETAMINOPHEN (TYLENOL) 325 MG TAB 650 MILLIGRAM ORAL EVERY 6 HOURS NE EDED. as needed for PAIN 1-5/HEADACHE/ FEVER Qty = 1 Sacubitril/Valsartan (Entresto 24 MG-26 MG Table t) 1 TAB TAB 1 TABLET ORAL TWICE DAILY. Qty = 10 metFORMIN (GLUCOPHAGE) 500 MG TAB 1,000 MILLIGRAM ORAL TWICE DAILY WITH MEALS. Qty = 60 ASPIRIN (ASPIRIN) 81 MG TAB.CHEW 81 MILLIGRAM ORAL DAILY. Qty = [address] (CYMBALTA) 60 MG CAP.DR 60 MILLIGRAM ORAL TWICE DAILY. Qty = 30 HYDROcodone/APAP (NORCO 5/325) 1 TAB TAB 1 TABLET ORAL EVERY 4 HOURS NEEDED. as neede d for PAIN SCALE 4-6 Qty = [address] (OMEPRAZOLE) 20 MG TAB.DR 20 MILLIGRAM ORAL DAILY. Qty = 30 predniSONE (predniSONE) 20 MG TAB 20 MILLIGRAM ORAL DAILY. Qty = 14 MELATONIN (MELATONIN) 3 MG TAB 6 MILLIGRAM ORAL BEDTIME. as needed for SLEEP Qty = 30 LATANOPROST (XALATAN 0.005% [facility] SOLN) 2.5 ML O PHTH.SOLN 1 DROPS EACH EYE BEDTIME. Start taking the following new medications: APIXABAN (ELIQUIS) 5 MG TAB 5 MILLIGRAM ORAL TWICE DAILY. Qty = 60 Refills = 1 AMIODARONE (CORDARONE) 200 MG TAB 200 MILLIGRAM ORAL TWICE DAILY. Qty = 60 Refills = 1 CARVEDILOL (COREG) 12.5 MG TAB 12.5 MILLIGRAM ORAL EVERY 12 HOURS. Qty = 60 Refills = 1 DIGOXIN (LANOXIN) 0.125 MG TAB 0.125 MILLIGRAM ORAL DAILY. Qty = 30 No Refills FUROSEMIDE (LASIX) 40 MG TAB 40 MILLIGRAM ORAL DAILY. Qty = 30 No Refills Objective VS/I O Last Documented: Result Date Time Pulse Ox 97 07/21 723 B/P 110/54 07/21 723 B/P Mean 72.4 07/21 723 O2 Delivery Room air 07/21 723 Temp 98.1 07/21 723 Pulse 57 07/21 723 Resp 18 07/21 723 24 hour I O ending at 0700: 07/21 1900 Intake Total 240 1480.00 Output Total Balance 240 1480.00 Intake, IV 1000.00 Intake, Oral 240 480 Number Voids 3 2 Patient Weight Weight (lb): Weight (oz): Weight (kg): 102.273 General appearance: alert, awake Head/Eyes: clear cornea, normocephalic, normal c onjunctiva/sclera ENT: moist mucosal membranes Neck: full range of motion, non-tender Cardiovascular: regular rate rhythm, normal hear t sounds Respiratory: no distress, aerating well, rales GI: soft, non-tender, no distention Extremities: moves all, no edema-all extremities , generalized tenderness Results Findings/Data: Laboratory Tests: 07/21 0600 0414 2111 Chemistry Sodium (137 - 145 MMOL/L) 130 L Potassium (3.5 - 5.1 MMOL/L) 4.1 Chloride (98 - 107 MMOL/L) 91 L Carbon Dioxide (22 - 30 MMOL/L) 29 BUN (7 - 17 MG/DL) 56 H Creatinine (0.52 - 1.04 MG/DL) 1.20 H Glomerular Filtr Rate 44 Glucose (74 - 106 MG/DL) 135 H POC Glucose (60 - 99 MG/DL) 130 H 161 H Calcium (8.4 - 10.2 MG/DL) 9.8 Hematology WBC (3.8 - 9.8 K/MM3) 14.5 H RBC (3.58 - 4.97 M/MM3) 4.70 Hgb (11.2 - 14.9 G/DL) 11.2 Hct (33.2 - 43.5 %) 38.1 MCV (80.7 - 99.1 fL) 81 MCH (27.0 - 34.1 pg) 23.8 L MCHC (32.2 - 35.7 %) 29.4 L RDW (12.1 - 15.2 %) 17.1 H Plt Count (129 - 368 K/MM3) 415 H MPV (7.4 - 10.4 fl) 9.9 Neut % (Auto) (43 - 75 %) 73.6 Lymph % (Auto) (14 - 44 %) 16.3 Baca % (Auto) (4 - 13 %) 7.8 Eos % (Auto) (0 - 6 %) 0.6 Baso % (Auto) (0 - 2 %) 0.4 Neut # (Auto) (2.0 - 7.6 K/mm3) 10.63 H Lymph # (Auto) (1.0 - 3.8 K/mm3) 2.36 Baca # (Auto) (0.1 - 0.8 K/mm3) 1.12 H Eos # (Auto) (0.0 - 0.2 K/mm3) 0.09 Baso # (Auto) (0.0 - 0.2 K/mm3) 0.06 Immature Gran % (0.0 - 2.0 %) 1.3 Nucleated RBC % (0 - 1.0 %) 0.0 Nucleated RBCs # (Man) (0.0 - 0.1 K/mm3) 0.00 Urines Urine Osmolality (300 - 1200 MOS/KG) 310.5 Ur Random Sodium (27 - 287 MMOL/L) 13 L Discharge Instructions Diet: cardiac Activity: as tolerated Discharge management: greater than 30 mins, face to face encounter Time spent: Time spent with patient (minutes): 35 Follow-up Appointments PCP: PCP: Viviana Thompson MD Attending Physician: Attending Physician: Dexter Beard MD Consulting provider 1: Provider 1: Alexandr Ham MD Specialty: CARDIOVASC DIS Follow up timeframe: In 1-2 weeks Special instructions: PLEASE CALL AND MAKE AN APPOINTMENT Quality Medications Current medication review: I attest that the foregoing medication list in t he medical record is true, accurate, and complete to the best of my knowled ge. at 1602 RPT #:[id number] END OF REPORT 2019-07-21 11:46:00-00:00 [facility] ([facility]) Cardiology Progress Note REPORT#:[id number] REPORT STATUS: Signed DATE:07/21/19 TIME: 1146 PATIENT: BREA GILES UNIT #: [id number] ROOM/BED: [address] : [birth year] AGE: 73 SEX: F ATTEND: Martin Beard MD ADM AUTHOR: Norman Tucker MD * ALL edits or amendments must be made on the Myrio/computer document * Subjective Chief Complaint: AICD shock Patient reports: No: complaints, chest pain, dizziness, palpitati ons, shortness of breath, swelling. Nursing reports: No: complaints. Objective General VS/I O: 24 hour I O ending at 0700: 07/21 0700 07/20 1900 Intake Total 240 1480.00 Output Total Balance 240 1480.00 Intake, IV 1000.00 Intake, Oral 240 480 Number Voids 3 2 Vital Signs: Date Time Temp Pulse Resp B/P B/P Pulse O2 O2 F low FiO2 Mean Ox Delivery Rate 07/21 0723 98.1 57 18 110/54 72.4 97 Room air 07/21 0408 97.3 60 17 91/38 55.4 97 07/20 2335 98.4 56 18 130/74 92.5 98 Room air 07/20 1934 98.6 62 18 110/67 81.6 97 07/20 1605 97.7 56 18 105/67 79.7 96 07/20 1600 98.8 07/20 1431 60 14 81/43 56 100 07/20 1401 60 25 92/50 64 99 07/20 1331 60 24 84/49 63 94 07/20 1301 60 21 76/44 56 93 07/20 1201 60 21 85/45 61 94 07/20 1200 97.7 Patient Weight Weight (lb): Weight (oz): Weight (kg): 102.273 Medications: Active Meds + DC'd Last 24 Hrs Sodium Chloride 500 ML BOLUS ONCE ONE IV (DC) Sodium Chloride 500 ML .Q6H40M IV (DC) Furosemide 40 MG DAILY PO (DC) Apixaban 5 MG BID PO Carvedilol 12.5 MG Q12HR PO Amiodarone HCl 200 MG BID PO Digoxin 0.125 MG DAILY PO Aspirin 81 MG DAILY PO Pantoprazole 40 MG DAILY PO Duloxetine HCl 60 MG BID PO Sacubitril/Valsartan 1 TAB BID PO (DC) Prednisone 20 MG DAILY PO Spironolactone 50 MG DAILY PO (DC) Metformin HCl 1,000 MG BID MEALS PO Ondansetron HCl 4 MG Q6H PRN PRN IV Hydrocodone Bitart/Acetaminophen 1 TAB Q4H PRN P RN PO Pacemaker: permanent (AICD) Physical Exam General appearance: alert, awake, oriented, no a cute distress, pleasant, conversational, mental status normal, no respira tory distress Head/Eyes: atraumatic, normocephalic ENT: moist mucosal membranes Neck: no bruit/NL carotids, no JVD, no masses or swelling Cardiovascular: CV assessment: regular rate and rhythm, BP puls es = bilaterally, no murmur Respiratory: clear to auscultation, no distress Abdomen: soft, non-tender, no mass/organomegaly, no pulsatile mass Lower extremity: LE assessment: no edema, 2+ peripheral pulses Musculoskeletal: full range of motion Neuro/DYE BLENDER: alert, oriented X 3, CN II-XII intact Skin: dry, intact Wound/incision: Site condition: incision intact Psychiatry: normal affect, normal judgment/insig ht, normal mood, no hallucinations Results Findings/Data: Laboratory Tests 07/21 07/21 07/21 07/20 07/20 0721 0600 0414 1730 1601 Chemistry Sodium (137 - 145 MMOL/L) 130 L Potassium (3.5 - 5.1 MMOL/L) 4.1 Chloride (98 - 107 MMOL/L) 91 L Carbon Dioxide (22 - 30 MMOL/L) 29 BUN (7 - 17 MG/DL) 56 H Creatinine (0.52 - 1.04 MG/DL) 1.20 H Glomerular Filtr Rate 44 Glucose (74 - 106 MG/DL) 135 H POC Glucose (60 - 99 MG/DL) 130 H 161 H 294 H Serum Osmolality (275 - 295 mOsm/kg) 301 H Calcium (8.4 - 10.2 MG/DL) 9.8 07/20 1239 Chemistry POC Glucose (60 - 99 MG/DL) 202 H Laboratory Tests 07/21 0600 Hematology WBC (3.8 - 9.8 K/MM3) 14.5 H RBC (3.58 - 4.97 M/MM3) 4.70 Hgb (11.2 - 14.9 G/DL) 11.2 Hct (33.2 - 43.5 %) 38.1 MCV (80.7 - 99.1 fL) 81 MCH (27.0 - 34.1 pg) 23.8 L MCHC (32.2 - 35.7 %) 29.4 L RDW (12.1 - 15.2 %) 17.1 H Plt Count (129 - 368 K/MM3) 415 H MPV (7.4 - 10.4 fl) 9.9 Neut % (Auto) (43 - 75 %) 73.6 Lymph % (Auto) (14 - 44 %) 16.3 Baca % (Auto) (4 - 13 %) 7.8 Eos % (Auto) (0 - 6 %) 0.6 Baso % (Auto) (0 - 2 %) 0.4 Neut # (Auto) (2.0 - 7.6 K/mm3) 10.63 H Lymph # (Auto) (1.0 - 3.8 K/mm3) 2.36 Baca # (Auto) (0.1 - 0.8 K/mm3) 1.12 H Eos # (Auto) (0.0 - 0.2 K/mm3) 0.09 Baso # (Auto) (0.0 - 0.2 K/mm3) 0.06 Immature Gran % (0.0 - 2.0 %) 1.3 Nucleated RBC % (0 - 1.0 %) 0.0 Nucleated RBCs # (Man) (0.0 - 0.1 K/mm3) 0.00 Laboratory Tests 07/20 2111 Urines Urine Osmolality (300 - 1200 MOS/KG) 310.5 Ur Random Sodium (27 - 287 MMOL/L) 13 L Results: labs reviewed, vital signs stable, EKG personally reviewed, rhythm personally rev'd, x-ray personally reviewed, mague plasencia med profile rev'd EKG Interpretation: normal sinus rhythm Telemetry Interpretation: SR Diagnosis, Assessment Plan Problem List/A P: 1. AICD discharge 2. Frequent PVCs Orders: Procedure Date/time Status Regular Diet 07/21 L Active Consultants: hospitalist Plan discussed with: patient, primary ca re physician, patient care team, nurse Free Text DxA P Notes Free Text DxA P Notes: IMP: Chronic systolic heart failure PAF s/p [facility] AICD with AICD shock with AFIB wit h RVR Hyponatremia PLAN: Continue amiodarone, digoxin, carvedilol Added eliquis Fluid restrict Home soon outpt F/up Electronically Signed by Norman Tucker MD on at 1149 RPT #:[id number] END OF REPORT 2019-07-20 15:49:00-00:00 [facility] ([facility]) Hospitalist Progress Note REPORT#:[id number] REPORT STATUS: Signed DATE:07/20/19 TIME: 1549 PATIENT: BREA GILES UNIT #: [id number] ROOM/BED: [address] : [birth year] AGE: 73 SEX: F ATTEND: Martin Beard MD ADM AUTHOR: Dexter Beard MD * ALL edits or amendments must be made on the [employer]/computer document * Subjective Chief Complaint: 73 yoF with dilated CMP and chronic systolic CHF s/p AICD implant admitted with NSVT s/p AICD firing. Pt seen sitting in chair eat ing lunch, still c/o easy fatigeability, but denies cp/sob or dizziness. She's in NSR, but hypotensi ve with SBP 80s-90s. Review of Systems Constitutional: Denies: chills, fatigue, malaise. Respiratory: Denies: CORTEZ (dyspnea on exertion), pleurisy, pro ductive cough (sputum). Cardiovascular: Denies: chest pain, orthopnea, parox nocturnal d yspnea. GI: Denies: abdominal pain, dysphagia, hematochezia. Objective General VS/I O: Vital Signs: Date Time Temp Pulse Resp B/P B/P Pulse O2 O2 F low FiO2 Mean Ox Delivery Rate 07/20 1431 60 14 81/43 56 100 07/20 1401 60 25 92/50 64 99 07/20 1331 60 24 84/49 63 94 07/20 1301 60 21 76/44 56 93 07/20 1201 60 21 85/45 61 94 07/20 1200 97.7 07/20 1101 60 19 84/55 66 94 07/20 1001 59 23 108/53 76 96 07/20 0901 60 18 127/75 94 98 07/20 0801 60 18 156/72 104 97 07/20 0800 97.9 07/20 0731 59 21 114/53 77 96 07/20 0701 60 22 122/58 77 98 07/20 0600 60 19 104/55 74 97 07/20 0500 60 21 108/58 79 96 07/20 0430 97.3 07/20 0401 60 17 116/56 80 98 07/20 0301 60 23 114/51 74 95 07/20 0201 60 21 103/49 70 96 07/20 0100 60 17 108/55 75 95 07/20 0024 61 21 122/56 80 98 07/19 2301 62 25 109/53 76 96 07/19 2258 97.4 07/19 2201 66 23 123/62 86 96 07/19 2131 66 19 125/58 84 98 07/19 2101 68 20 129/60 87 85 07/19 2030 22 07/19 2001 74 132/60 86 98 07/19 2000 97.9 07/19 1901 75 145/65 94 81 07/19 1853 17 07/19 1801 60 30 140/63 91 99 07/19 1732 61 21 140/61 88 93 07/19 1701 60 23 125/60 86 92 07/19 1631 62 23 117/54 78 93 07/19 1629 96.4 07/19 1601 63 25 133/61 88 93 24 hour I O ending at 0700: 07/20 0700 07/19 1900 Intake Total 240 Output Total Balance 240 Intake, Oral 240 Number 1 Bowel Movements Number Voids 3 Patient Weight Weight (lb): Weight (oz): Weight (kg): 102.273 Medications: Active Meds + DC'd Last 24 Hrs Sodium Chloride 500 ML BOLUS ONCE ONE IV Sodium Chloride 500 ML .[id number] IV Furosemide 40 MG DAILY PO (DC) Apixaban 5 MG BID PO Apixaban 5 MG BID PO (CAN) Carvedilol 12.5 MG Q12HR PO Furosemide 40 MG BID@0900,1700 PO (DC) Amiodarone HCl 200 MG BID PO Digoxin 0.125 MG DAILY PO Aspirin 81 MG DAILY PO Pantoprazole 40 MG DAILY PO Duloxetine HCl 60 MG BID PO Sacubitril/Valsartan 1 TAB BID PO (DC) Prednisone 20 MG DAILY PO Spironolactone 50 MG DAILY PO (DC) Metformin HCl 1,000 MG BID MEALS PO Ondansetron HCl 4 MG Q6H PRN PRN IV Hydrocodone Bitart/Acetaminophen 1 TAB Q4H PRN P RN PO Physical Exam General appearance: alert, awake Head/Eyes: atraumatic, clear cornea, normal conj unctiva/sclera ENT: moist mucosal membranes, normal dentition Neck: full range of motion, non-tender Cardiovascular: normal heart sounds, no murmur Respiratory: rales, aerating well Abdomen: non-tender, normal bowel sounds, soft Extremities: moves all, normal capillary refill, no edema Results Findings/Data: Laboratory Tests 07/20 07/20 07/20 07/19 07/19 1239 0741 0408 2019 1557 Chemistry Sodium (137 - 145 MMOL/L) 129 L Potassium (3.5 - 5.1 MMOL/L) 3.6 Chloride (98 - 107 MMOL/L) 88 L Carbon Dioxide (22 - 30 MMOL/L) 29 BUN (7 - 17 MG/DL) 62 H Creatinine (0.52 - 1.04 MG/DL) 1.20 H Glomerular Filtr Rate 44 Glucose (74 - 106 MG/DL) 126 H POC Glucose (60 - 99 MG/DL) 202 H 112 H 202 H 1 91 H Calcium (8.4 - 10.2 MG/DL) 9.5 Laboratory Tests 07/20 0408 Hematology WBC (3.8 - 9.8 K/MM3) 16.4 H RBC (3.58 - 4.97 M/MM3) 4.71 Hgb (11.2 - 14.9 G/DL) 11.4 Hct (33.2 - 43.5 %) 38.7 MCV (80.7 - 99.1 fL) 82 MCH (27.0 - 34.1 pg) 24.2 L MCHC (32.2 - 35.7 %) 29.5 L RDW (12.1 - 15.2 %) 16.9 H Plt Count (129 - 368 K/MM3) 454 H MPV (7.4 - 10.4 fl) 9.5 Neut % (Auto) (43 - 75 %) 76.7 H Lymph % (Auto) (14 - 44 %) 14.6 Baca % (Auto) (4 - 13 %) 6.3 Eos % (Auto) (0 - 6 %) 0.7 Baso % (Auto) (0 - 2 %) 0.3 Neut # (Auto) (2.0 - 7.6 K/mm3) 12.54 H Lymph # (Auto) (1.0 - 3.8 K/mm3) 2.39 Baca # (Auto) (0.1 - 0.8 K/mm3) 1.03 H Eos # (Auto) (0.0 - 0.2 K/mm3) 0.11 Baso # (Auto) (0.0 - 0.2 K/mm3) 0.05 Immature Gran % (0.0 - 2.0 %) 1.4 Nucleated RBC % (0 - 1.0 %) 0.0 Nucleated RBCs # (Man) (0.0 - 0.1 K/mm3) 0.00 Laboratory Tests 07/20 0408 Toxicology Digoxin (0.8 - 2.0 NG/ML) 0.6 L Laboratory Tests 07/19 2130 Urines Urine Color (YELLOW) YELLOW Urine Appearance (CLEAR) CLEAR Urine pH (5.0 - 9.0) 5.0 Ur Specific Poston (1.003 - 1.030) 1.015 Urine Protein (NEGATIVE MG/DL) NEGATIVE Urine Glucose (UA) (NORMAL MG/DL) NORMAL Urine Ketones (NEGATIVE MG/DL) NEGATIVE Urine Blood (NEGATIVE Gonzalez/mm3) NEGATIVE Urine Nitrite (NEGATIVE) NEGATIVE Urine Bilirubin (NEGATIVE MG/DL) NEGATIVE Urine Urobilinogen (NORMAL MG/DL) NORMAL Ur Leukocyte Esterase (NEGATIVE /mm3) TRACE H Urine RBC (0 - 3 RBC/HPF) 0-3 Urine WBC (0 - 5 WBC/HPF) 5-9 H Ur Epithelial Cells (FEW EPI/HPF) FEW Urine Bacteria (NONE) FEW Urine Culture Screen (Culture Chk Criteria) NO, WBC<10 Radiology data: Recent Impressions: RADIOLOGY - XR CHEST 1V 07/20 0536 Report Impression - Status: SIGNED Entered: 07/20/2019813 Impression: Cardiomegaly. Impression By: Wendy Way MD Diagnosis, Assessment Plan Free Text DxA P Notes Free Text DxA P Notes: 1. V-tach with AICD discharge 2. Acute on chronic systolic CHF exacerbation 3. paroxysmal afib, currently in sinus rhythm wi th frequentr PVCs 4. H/o temporal arteritis 5. Fibromyalgia 07/18/2019 Pt feelingbetter, denies any further AICD discha rge, cp/sob. She's in sinus rhythm with PVCs, and has be en started on amiodarone and increased coreg dose by Dr ham. BP borderline low, will change lasix to PO and d/c metolazone. - continue medical therapy and monitor for any arrhythmia 07/19/2019 Pt remains in sinus-arrhythmia but went in/out of afib since last night per Dr Ham. Eliquis started. creatinine rising 1.2. No further AICD discharge. Leukocytosis with WBC 16K noted. - decrease lasix 40 mg daily and aldactone 25 m g daily - Agree with starting eliquis - Transfer to telemetry, check UA and repeat CX R in AM 07/20/2019 Pt clinically stable, denies cp/sob, but still c /o easy fatigeability. BP ok this morning but dropped to 80-90s in afternoon. Lab shows worsening hyponatremia 129. She remains in NSR. - d/c diuretics and entresto due to hypotension . continue coreg, amio, and digoxin - NS 500ml bolus , then another 500 ml NS 75cc/ hr. - Hyponatremia likely due to diuretic u se, but will c/s nephrology in case it worsens Quality Medications Current medication review: I attest that the foregoing medication list in [facility] medical record is true, accurate, and complete to the best of my knowled ge. at 1555 RPT #:[id number] END OF REPORT 2019-07-20 06:11:00-00:00 [facility] ([facility]) Cardiology Progress Note REPORT#:[id number] REPORT STATUS: Signed DATE:07/20/19 TIME: 06 PATIENT: BREA GILES UNIT #: [id number] ROOM/BED: [address] : [birth year] AGE: 73 SEX: F ATTEND: Martin Beard MD ADM AUTHOR: Alexandr Ham MD * ALL edits or amendments must be made on the [employer] document * Subjective Chief Complaint: AICD shock Patient reports: No: chest pain, palpitations, shortness of breat h. Objective General VS/I O: Vital Signs: Date Time Temp Pulse Resp B/P B/P Pulse O2 O2 F low FiO2 Mean Ox Delivery Rate 07/20 0301 60 23 114/51 74 95 07/20 0201 60 21 103/49 70 96 07/20 0100 60 17 108/55 75 95 07/20 0024 61 21 122/56 80 98 07/19 2301 62 25 109/53 76 96 07/19 2258 97.4 07/19 2201 66 23 123/62 86 96 07/19 2131 66 19 125/58 84 98 07/19 2101 68 20 129/60 87 85 07/19 2030 22 07/19 2001 74 132/60 86 98 07/19 2000 97.9 07/19 1901 75 145/65 94 81 07/19 1853 17 07/19 1801 60 30 140/63 91 99 07/19 1732 61 21 140/61 88 93 07/19 1701 60 23 125/60 86 92 07/19 1631 62 23 117/54 78 93 07/19 1629 96.4 07/19 1601 63 25 133/61 88 93 07/19 1501 64 21 121/57 82 90 07/19 1414 69 26 168/94 114 100 07/19 1330 68 22 98 07/19 1300 73 35 99 07/19 1230 72 18 89 07/19 1200 68 25 94 07/19 1134 96.9 07/19 1130 71 18 98 07/19 1100 80 20 96 07/19 1030 75 20 97 07/19 931 151 28 148/58 84 88 07/19 09 63 19 99/47 68 95 07/19 0831 67 19 117/56 80 95 07/19 0801 61 20 98/53 73 94 07/19 0747 96.4 07/19 07 61 18 101/51 69 96 07/19 0701 60 25 91/55 68 92 07/19 0631 93 Patient Weight Weight (lb): Weight (oz): Weight (kg): 102.273 Medications: Active Meds + DC'd Last 24 Hrs Furosemide 40 MG DAILY PO Apixaban 5 MG BID PO Apixaban 5 MG BID PO (CAN) Carvedilol 12.5 MG Q12HR PO Furosemide 40 MG BID@0900,1700 PO (DC) Amiodarone HCl 200 MG BID PO Digoxin 0.125 MG DAILY PO Aspirin 81 MG DAILY PO Pantoprazole 40 MG DAILY PO Duloxetine HCl 60 MG BID PO Sacubitril/Valsartan 1 TAB BID PO Prednisone 20 MG DAILY PO Spironolactone 50 MG DAILY PO Metformin HCl 1,000 MG BID MEALS PO Ondansetron HCl 4 MG Q6H PRN PRN IV Hydrocodone Bitart/Acetaminophen 1 TAB Q4H PRN P RN PO Physical Exam General appearance: alert, awake, oriented Head/Eyes: atraumatic, normocephalic ENT: moist mucosal membranes Neck: no JVD Cardiovascular: CV assessment: regular rate and rhythm Respiratory: clear to auscultation, no distress Lower extremity: LE assessment: no edema Musculoskeletal: full range of motion Neuro/DYE BLENDER: alert, oriented X 3, CN II-XII intact Skin: dry, intact Wound/incision: Site condition: dressing clean dry Psychiatry: normal affect, normal judgment/insig ht, normal mood Results Findings/Data: Laboratory Tests 07/20 07/19 07/19 07/19 1458 2020 1261 9420 Chemistry Sodium (137 - 145 MMOL/L) 129 L Potassium (3.5 - 5.1 MMOL/L) 3.6 Chloride (98 - 107 MMOL/L) 88 L Carbon Dioxide (22 - 30 MMOL/L) 29 BUN (7 - 17 MG/DL) 62 H Creatinine (0.52 - 1.04 MG/DL) 1.20 H Glomerular Filtr Rate 44 Glucose (74 - 106 MG/DL) 126 H POC Glucose (60 - 99 MG/DL) 202 H 191 H 173 H Calcium (8.4 - 10.2 MG/DL) 9.5 Laboratory Tests 07/20 0408 Hematology WBC (3.8 - 9.8 K/MM3) 16.4 H RBC (3.58 - 4.97 M/MM3) 4.71 Hgb (11.2 - 14.9 G/DL) 11.4 Hct (33.2 - 43.5 %) 38.7 MCV (80.7 - 99.1 fL) 82 MCH (27.0 - 34.1 pg) 24.2 L MCHC (32.2 - 35.7 %) 29.5 L RDW (12.1 - 15.2 %) 16.9 H Plt Count (129 - 368 K/MM3) 454 H MPV (7.4 - 10.4 fl) 9.5 Neut % (Auto) (43 - 75 %) 76.7 H Lymph % (Auto) (14 - 44 %) 14.6 Baca % (Auto) (4 - 13 %) 6.3 Eos % (Auto) (0 - 6 %) 0.7 Baso % (Auto) (0 - 2 %) 0.3 Neut # (Auto) (2.0 - 7.6 K/mm3) 12.54 H Lymph # (Auto) (1.0 - 3.8 K/mm3) 2.39 Baca # (Auto) (0.1 - 0.8 K/mm3) 1.03 H Eos # (Auto) (0.0 - 0.2 K/mm3) 0.11 Baso # (Auto) (0.0 - 0.2 K/mm3) 0.05 Immature Gran % (0.0 - 2.0 %) 1.4 Nucleated RBC % (0 - 1.0 %) 0.0 Nucleated RBCs # (Man) (0.0 - 0.1 K/mm3) 0.00 Laboratory Tests 07/20 0408 Toxicology Digoxin (0.8 - 2.0 NG/ML) 0.6 L Laboratory Tests 07/19 2130 Urines Urine Color (YELLOW) YELLOW Urine Appearance (CLEAR) CLEAR Urine pH (5.0 - 9.0) 5.0 Ur Specific Poston (1.003 - 1.030) 1.015 Urine Protein (NEGATIVE MG/DL) NEGATIVE Urine Glucose (UA) (NORMAL MG/DL) NORMAL Urine Ketones (NEGATIVE MG/DL) NEGATIVE Urine Blood (NEGATIVE Gonzalez/mm3) NEGATIVE Urine Nitrite (NEGATIVE) NEGATIVE Urine Bilirubin (NEGATIVE MG/DL) NEGATIVE Urine Urobilinogen (NORMAL MG/DL) NORMAL Ur Leukocyte Esterase (NEGATIVE /mm3) TRACE H Urine RBC (0 - 3 RBC/HPF) 0-3 Urine WBC (0 - 5 WBC/HPF) 5-9 H Ur Epithelial Cells (FEW EPI/HPF) FEW Urine Bacteria (NONE) FEW Urine Culture Screen (Culture Chk Criteria) NO, WBC<10 Diagnosis, Assessment Plan Free Text DxA P Notes Free Text DxA P Notes: IMP: Chronic systolic heart failure PAF s/p [facility] AICD with AICD shock with AFIB wit h RVR Hyponatremia PLAN: Continue amiodarone, digoxin, carvedilol Add eliquis Fluid restrict at 0738 RPT #:[id number] END OF REPORT 2019-07-19 18:21:00-00:00 [facility] ([facility]) Hospitalist Progress Note REPORT#:[id number] REPORT STATUS: Signed DATE:07/19/19 TIME: 1820 PATIENT: BREA GILES UNIT #: [id number] ROOM/BED: [address] : 45 AGE: 73 SEX: F ATTEND: Martin Beard MD ADM AUTHOR: Dexter Beard MD * ALL edits or amendments must be made on the [employer]/computer document * Subjective Chief Complaint: 73 yoF with dilated CMP and chronic systolic CHF s/p AICD implant admitted with NSVT s/p AICD firing. She feeling a little weaker today, noted to be i n paroxysmal afib since last night per Dr Ham. Rissa started Review of Systems Constitutional: Denies: chills, fatigue, malaise. Respiratory: Denies: CORTEZ (dyspnea on exertion), pleurisy, pro ductive cough (sputum). Cardiovascular: Denies: chest pain, orthopnea, parox nocturnal d yspnea. GI: Denies: abdominal pain, dysphagia, hematochezia. Objective General VS/I O: Vital Signs: Date Time Temp Pulse Resp B/P B/P Pulse O2 O2 F low FiO2 Mean Ox Delivery Rate 07/19 1801 60 30 140/63 91 99 07/19 1732 61 21 140/61 88 93 07/19 1701 60 23 125/60 86 92 07/19 1631 62 23 117/54 78 93 07/19 1629 96.4 07/19 1601 63 25 133/61 88 93 07/19 1501 64 21 121/57 82 90 07/19 1414 69 26 168/94 114 100 07/19 1330 68 22 98 07/19 1300 73 35 99 07/19 1230 72 18 89 07/19 1200 68 25 94 07/19 1134 96.9 07/19 1130 71 18 98 07/19 1100 80 20 96 07/19 1030 75 20 97 07/19 0931 151 28 148/58 84 88 07/19 0901 63 19 99/47 68 95 07/19 0831 67 19 117/56 80 95 07/19 0801 61 20 98/53 73 94 07/19 0747 96.4 07/19 0731 61 18 101/51 69 96 07/19 0701 60 25 91/55 68 92 07/19 0631 93 07/19 0601 94 07/19 0530 95 07/19 0502 61 89/39 56 07/19 0430 16 07/19 0401 91 108/47 68 93 07/19 0358 98.1 07/19 0331 73 114/51 74 93 07/19 0301 69 121/55 78 93 07/19 0300 93 07/19 0238 96 17 135/65 91 07/19 0201 75 24 148/60 86 95 07/19 0101 77 19 131/61 88 94 07/19 0001 77 21 153/70 101 96 07/18 2331 76 20 156/67 97 07/18 2309 78 16 155/65 94 95 07/18 2100 71 94 07/18 2000 70 96 07/18 1926 97.0 07/18 1900 69 18 98 24 hour I O ending at 0700: 07/19 0700 07/18 1900 Intake Total 350 1910 Output Total Balance 350 1910 Intake, Oral 350 1910 Intake, Oral 0 Supplement Number 5 Bowel Movements Number Voids 5 9 Patient Weight Weight (lb): Weight (oz): Weight (kg): 102.273 Medications: Active Meds + DC'd Last 24 Hrs Furosemide 40 MG DAILY PO (UNVr) Apixaban 5 MG BID PO (UNV) Apixaban 5 MG BID PO (CANr) Carvedilol 12.5 MG Q12HR PO Furosemide 40 MG BID@0900,1700 PO (DCr) Amiodarone HCl 200 MG BID PO Digoxin 0.125 MG DAILY PO Aspirin 81 MG DAILY PO Pantoprazole 40 MG DAILY PO Duloxetine HCl 60 MG BID PO Sacubitril/Valsartan 1 TAB BID PO Prednisone 20 MG DAILY PO Spironolactone 50 MG DAILY PO Metformin HCl 1,000 MG BID MEALS PO Ondansetron HCl 4 MG Q6H PRN PRN IV Hydrocodone Bitart/Acetaminophen 1 TAB Q4H PRN P RN PO Physical Exam General appearance: alert, awake Head/Eyes: atraumatic, clear cornea, normal conj unctiva/sclera ENT: moist mucosal membranes, normal dentition Neck: full range of motion, non-tender Cardiovascular: normal heart sounds, no murmur Respiratory: rales, aerating well Abdomen: non-tender, normal bowel sounds, soft Extremities: moves all, normal capillary refill, no edema Results Findings/Data: Laboratory Tests 07/19 07/19 07/19 07/18 1557 0738 0432 1942 Chemistry Sodium (137 - 145 MMOL/L) 130 L Potassium (3.5 - 5.1 MMOL/L) 3.7 Chloride (98 - 107 MMOL/L) 90 L Carbon Dioxide (22 - 30 MMOL/L) 29 Anion Gap (14 - 24 MMOL/L) 15 BUN (7 - 17 MG/DL) 54 H Creatinine (0.52 - 1.04 MG/DL) 1.20 H Glomerular Filtr Rate 44 Glucose (74 - 106 MG/DL) 179 H POC Glucose (60 - 99 MG/DL) 191 H 173 H 171 H Calcium (8.4 - 10.2 MG/DL) 9.5 Laboratory Tests 07/19 0432 Hematology WBC (3.8 - 9.8 K/MM3) 17.8 H RBC (3.58 - 4.97 M/MM3) 4.72 Hgb (11.2 - 14.9 G/DL) 11.5 Hct (33.2 - 43.5 %) 37.7 MCV (80.7 - 99.1 fL) 80 L MCH (27.0 - 34.1 pg) 24.4 L MCHC (32.2 - 35.7 %) 30.5 L RDW (12.1 - 15.2 %) 17.1 H Plt Count (129 - 368 K/MM3) 500 H MPV (7.4 - 10.4 fl) 9.4 Neut % (Auto) (43 - 75 %) 74.8 Lymph % (Auto) (14 - 44 %) 14.9 Baca % (Auto) (4 - 13 %) 7.8 Eos % (Auto) (0 - 6 %) 1.1 Baso % (Auto) (0 - 2 %) 0.4 Neut # (Auto) (2.0 - 7.6 K/mm3) 13.29 H Lymph # (Auto) (1.0 - 3.8 K/mm3) 2.65 Baca # (Auto) (0.1 - 0.8 K/mm3) 1.38 H Eos # (Auto) (0.0 - 0.2 K/mm3) 0.19 Baso # (Auto) (0.0 - 0.2 K/mm3) 0.07 Immature Gran % (0.0 - 2.0 %) 1.0 Nucleated RBC % (0 - 1.0 %) 0.0 Nucleated RBCs # (Man) (0.0 - 0.1 K/mm3) 0.00 Diagnosis, Assessment Plan Free Text DxA P Notes Free Text DxA P Notes: 1. V-tach with AICD discharge 2. Acute on chronic systolic CHF exacerbation 3. paroxysmal afib, currently in sinus rhythm wi th frequentr PVCs 4. H/o temporal arteritis 5. Fibromyalgia 07/18/2019 Pt feelingbetter, denies any further AICD discha rge, cp/sob. She's in sinus rhythm with PVCs, and has be en started on amiodarone and increased coreg dose by Dr ham. BP borderline low, will change lasix to PO and d/c metolazone. - continue medical therapy and monitor for any arrhythmia 07/19/2019 Pt remains in sinus-arrhythmia but went in/out of afib since last night per Dr Ham. Eliquis started. creatinine rising 1.2. No further AICD discharge. Leukocytosis with WBC 16K noted. - decrease lasix 40 mg daily and aldactone 25 m g daily - Agree with starting eliquis - Transfer to telemetry, check UA and repeat CX R in AM Quality Medications Current medication review: I attest that the foregoing medication list in t medical record is true, accurate, and complete to the best of my knowled ge. at 1825 RPT #:[id number] END OF REPORT 2019-07-19 18:00:00-00:00 [facility] ([facility] Cardiology Progress Note REPORT#:[id number] REPORT STATUS: Signed DATE:07/19/19 TIME: 1800 PATIENT: BREA GILES UNIT #: [id number] ROOM/BED: [address] : 45 AGE: 73 SEX: F ATTEND: Martin Beard MD ADM AUTHOR: Alexandr Ham MD * ALL edits or amendments must be made on the [employer]computer document * Subjective Chief Complaint: AICD shock Patient reports: No: chest pain, palpitations, shortness of breat h. Objective General VS/I O: 24 hour I O ending at 0700: 07/19 0700 07/18 1900 Intake Total 350 1910 Output Total Balance 350 1910 Intake, Oral 350 1910 Intake, Oral 0 Supplement Number 5 Bowel Movements Number Voids 5 9 Vital Signs: Date Time Temp Pulse Resp B/P B/P Pulse O2 O2 F low FiO2 Mean Ox Delivery Rate 07/19 1629 96.4 07/19 1501 64 21 121/57 82 90 07/19 1414 69 26 168/94 114 100 07/19 1330 68 22 98 07/19 1300 73 35 99 07/19 1230 72 18 89 07/19 1200 68 25 94 07/19 1134 96.9 07/19 1130 71 18 98 07/19 1100 80 20 96 07/19 1030 75 20 97 07/19 0931 151 28 148/58 84 88 07/19 0901 63 19 99/47 68 95 07/19 0831 67 19 117/56 80 95 07/19 0801 61 20 98/53 73 94 07/19 0747 96.4 07/19 0731 61 18 101/51 69 96 07/19 0701 60 25 91/55 68 92 07/19 0631 93 07/19 0601 94 07/19 0530 95 07/19 0502 61 89/39 56 07/19 0430 16 07/19 0401 91 108/47 68 93 07/19 0358 98.1 07/19 0331 73 114/51 74 93 07/19 0301 69 121/55 78 93 07/19 0300 93 07/19 0238 96 17 135/65 91 07/19 0201 75 24 148/60 86 95 07/19 0101 77 19 131/61 88 94 07/19 0001 77 21 153/70 101 96 07/18 2331 76 20 156/67 97 07/18 2309 78 16 155/65 94 95 07/18 2100 71 94 07/18 2000 70 96 07/18 1926 97.0 07/18 1900 69 18 98 Patient Weight Weight (lb): Weight (oz): Weight (kg): 102.273 Medications: Active Meds + DC'd Last 24 Hrs Carvedilol 12.5 MG Q12HR PO Furosemide 40 MG BID@0900,1700 PO Amiodarone HCl 200 MG BID PO Digoxin 0.125 MG DAILY PO Aspirin 81 MG DAILY PO Pantoprazole 40 MG DAILY PO Duloxetine HCl 60 MG BID PO Sacubitril/Valsartan 1 TAB BID PO Prednisone 20 MG DAILY PO Spironolactone 50 MG DAILY PO Metformin HCl 1,000 MG BID MEALS PO Ondansetron HCl 4 MG Q6H PRN PRN IV Hydrocodone Bitart/Acetaminophen 1 TAB Q4H PRN P RN PO Physical Exam General appearance: alert, awake, oriented Head/Eyes: atraumatic, normocephalic ENT: moist mucosal membranes Neck: no JVD Cardiovascular: CV assessment: regular rate and rhythm Respiratory: clear to auscultation, no distress Lower extremity: LE assessment: no edema Musculoskeletal: full range of motion Neuro/DYE BLENDER: alert, oriented X 3, CN II-XII intact Skin: dry, intact Psychiatry: normal affect, normal judgment/insig ht, normal mood Results Findings/Data: Laboratory Tests 07/19 07/19 07/19 07/18 [id number] 1942 Chemistry Sodium (137 - 145 MMOL/L) 130 L Potassium (3.5 - 5.1 MMOL/L) 3.7 Chloride (98 - 107 MMOL/L) 90 L Carbon Dioxide (22 - 30 MMOL/L) 29 Anion Gap (14 - 24 MMOL/L) 15 BUN (7 - 17 MG/DL) 54 H Creatinine (0.52 - 1.04 MG/DL) 1.20 H Glomerular Filtr Rate 44 Glucose (74 - 106 MG/DL) 179 H POC Glucose (60 - 99 MG/DL) 191 H 173 H 171 H Calcium (8.4 - 10.2 MG/DL) 9.5 Laboratory Tests 07/19 0432 Hematology WBC (3.8 - 9.8 K/MM3) 17.8 H RBC (3.58 - 4.97 M/MM3) 4.72 Hgb (11.2 - 14.9 G/DL) 11.5 Hct (33.2 - 43.5 %) 37.7 MCV (80.7 - 99.1 fL) 80 L MCH (27.0 - 34.1 pg) 24.4 L MCHC (32.2 - 35.7 %) 30.5 L RDW (12.1 - 15.2 %) 17.1 H Plt Count (129 - 368 K/MM3) 500 H MPV (7.4 - 10.4 fl) 9.4 Neut % (Auto) (43 - 75 %) 74.8 Lymph % (Auto) (14 - 44 %) 14.9 [place] % (Auto) (4 - 13 %) 7.8 Eos % (Auto) (0 - 6 %) 1.1 Baso % (Auto) (0 - 2 %) 0.4 Neut # (Auto) (2.0 - 7.6 K/mm3) 13.29 H Lymph # (Auto) (1.0 - 3.8 K/mm3) 2.65 [place] # (Auto) (0.1 - 0.8 K/mm3) 1.38 H Eos # (Auto) (0.0 - 0.2 K/mm3) 0.19 Baso # (Auto) (0.0 - 0.2 K/mm3) 0.07 Immature Gran % (0.0 - 2.0 %) 1.0 Nucleated RBC % (0 - 1.0 %) 0.0 Nucleated RBCs # (Man) (0.0 - 0.1 K/mm3) 0.00 Diagnosis, Assessment Plan Free Text DxA P Notes Free Text DxA P Notes: IMP: Chronic systolic heart failure PAF s/p [facility] [place] AICD with AICD shock with AFIB wit h RVR PLAN: Continue amiodarone, digoxin, carvedilol Add eliquis at 0605 RPT #:[id number] END OF REPORT 2019-07-18 19:25:00-00:00 [id number] [place] [address] PATIENT NAME: BREA GILES Venkat ADMIT DATE : 07/17/19 ACCOUNT NO: [id number] ROOM NO: [facility] AGE: 73 REPORT TYPE: ELECTROCARDIOGRAM SEX: F ADMITTING PHYSICIAN:Dexter Beard MD ATTENDING PHYSICIAN:Dexter Beard MD Order: [id number] Test Reason : cp Test Date/Time Stamp: TueJul 18 2019 19:25:07 Blood Pressure : / mmHG Vent. Rate : 074 BPM Atrial Rate : 074 BPM P-R Int : 128 ms QRS Dur : 078 ms QT Int : 410 ms P-R-T Axes : 031 007 044 degree s QTc Int : 455 ms Sinus rhythm with sinus arrhythmia with occasion al premature ventricular complexes and fusion complexes Minimal voltage criteria for LVH, may be normal variant Nonspecific T wave abnormality Abnormal ECG When compared with ECG of 01-JUL-2019 09:22, fusion complexes are now present premature ventricular complexes are now present Confirmed by NORMAN TUCKER ([id number]) on 07/19/2019 7:39:53 AM Referred By: Dexter Beard Confirmed by:NORMAN ALANIZ at 0740 PATIENT NAME: BREA GILES Venkat 2019-07-18 16:22:00-00:00 [facility] ([facility]) Hospitalist Progress Note REPORT#:[id number] REPORT STATUS: Signed DATE:07/18/19 TIME: 162 PATIENT: BREA GILES UNIT #: [id number]GE: 73 SEX: F ATTEND: Martin Beard MD ADM AUTHOR: Dexter Beadr MD * ALL edits or amendments must be made on the [employer] document * Subjective Chief Complaint: 73 yoF with dilated CMP and chronic systolic CHF s/p AICD implant admitted with NSVT s/p AICD firing. She's feeling better, remains in sinus with PVCs . Denies cp/sob Review of Systems Constitutional: Denies: chills, fatigue, malaise. Respiratory: Denies: CORTEZ (dyspnea on exertion), pleurisy, pro ductive cough (sputum). Cardiovascular: Denies: chest pain, orthopnea, parox nocturnal d yspnea. GI: Denies: abdominal pain, dysphagia, hematochezia. Objective General VS/I O: Vital Signs: Date Time Temp Pulse Resp B/P B/P Pulse O2 O2 F low FiO2 Mean Ox Delivery Rate 07/18 1622 98.6 07/18 1231 61 22 98/50 70 97 07/18 1216 98.8 07/18 1214 61 22 102/51 73 96 07/18 1031 61 20 96/54 70 93 07/18 0901 74 22 169/66 89 92 07/18 0820 98.0 07/18 0701 62 25 118/56 80 93 07/18 0601 67 14 116/54 77 98 07/18 0559 70 20 145/62 89 07/18 0500 61 22 93 07/18 0400 97.8 07/18 0400 64 17 96 07/18 0301 61 23 112/52 75 92 07/18 0231 60 25 115/55 79 93 07/18 0201 60 23 103/52 71 93 07/18 0101 60 22 96/54 69 94 07/18 0001 63 23 106/52 69 93 07/18 0000 97.7 10/15 2301 65 24 98/53 70 92 07/170 65 20 99/55 70 94 07/170 68 19 94/51 64 93 07/17 2101 77 18 88/39 56 93 07/17 2001 96 25 134/85 90 89 07/17 2000 97.4 07/17 2000 97.4 07/17 1916 79 19 121/93 104 99 07/17 1723 88 16 117/55 75 98 Room air 24 hour I O ending at 0700: 07/18 0700 07/17 1900 Intake Total 500 Output Total 450 Balance 50 Intake, Oral 500 Output, Urine 450 Patient 102.273 kg Weight Weight Estimated Measurement Method Patient Weight Weight (lb): Weight (oz): Weight (kg): 102.273 Medications: Active Meds + DC'd Last 24 Hrs Carvedilol 25 MG Q12HR PO (DC) Carvedilol 12.5 MG Q12HR PO Furosemide 40 MG BID@0900,1700 PO Amiodarone HCl 200 MG BID PO Digoxin 0.125 MG DAILY PO Digoxin 0.25 MG DAILY PO (DC) Aspirin 81 MG DAILY PO Metolazone 2.5 MG MOWEFR PO (DCr) Pantoprazole 40 MG DAILY PO Carvedilol 6.25 MG Q12HR PO (DC) Carvedilol 12.5 MG Q12HR PO (DC) Duloxetine HCl 60 MG BID PO Sacubitril/Valsartan 1 TAB BID PO Prednisone 20 MG DAILY PO Spironolactone 50 MG DAILY PO Furosemide 40 MG BID@0900,1700 IV (DC) Metformin HCl 1,000 MG BID MEALS PO Ondansetron HCl 4 MG Q6H PRN PRN IV Hydrocodone Bitart/Acetaminophen 1 TAB Q4H PRN P RN PO Physical Exam General appearance: alert, awake Head/Eyes: atraumatic, clear cornea, normal conj unctiva/sclera ENT: moist mucosal membranes, normal dentition Neck: full range of motion, non-tender Cardiovascular: normal heart sounds, no murmur Respiratory: rales, aerating well Abdomen: non-tender, normal bowel sounds, soft Extremities: moves all, normal capillary refill, no edema Results Findings/Data: Laboratory Tests 07/18 07/18 07/18 07/18 07/18 1524 1121 0735 0402 0402 Chemistry Sodium (137 - 145 MMOL/L) 133 L Potassium (3.5 - 5.1 MMOL/L) 4.3 Chloride (98 - 107 MMOL/L) 92 L Carbon Dioxide (22 - 30 MMOL/L) 33 H Anion Gap (14 - 24 MMOL/L) 12 L BUN (7 - 17 MG/DL) 39 H Creatinine (0.52 - 1.04 MG/DL) 1.00 Glomerular Filtr Rate 54 Glucose (74 - 106 MG/DL) 194 H POC Glucose (60 - 99 MG/DL) 286 H 234 H 196 H Calcium (8.4 - 10.2 MG/DL) 10.1 Magnesium (1.6 - 2.3 MG/DL) 1.9 Total Bilirubin (0.2 - 1.3 MG/DL) 0.5 AST (14 - 36 UNITS/L) 29 ALT (9 - 52 UNITS/L) 14 Total Alk Phosphatase (38 - 126 UNITS/L) 81 B-Natriuretic Peptide (0 - 100 PG/ML) 371.0 H Total Protein (6.3 - 8.2 G/DL) 6.9 Albumin (3.5 - 5.0 G/DL) 4.0 07/17 1755 Chemistry POC Glucose (60 - 99 MG/DL) 173 H Troponin I (0.012 - 0.033 NG/ML) 0.041 H Laboratory Tests 07/18 0402 Hematology WBC (3.8 - 9.8 K/MM3) 15.1 H RBC (3.58 - 4.97 M/MM3) 5.37 H Hgb (11.2 - 14.9 G/DL) 13.1 Hct (33.2 - 43.5 %) 42.9 MCV (80.7 - 99.1 fL) 80 L MCH (27.0 - 34.1 pg) 24.4 L MCHC (32.2 - 35.7 %) 30.5 L RDW (12.1 - 15.2 %) 17.0 H Plt Count (129 - 368 K/MM3) 527 H MPV (7.4 - 10.4 fl) 9.4 Neut % (Auto) (43 - 75 %) 90.4 H Lymph % (Auto) (14 - 44 %) 6.0 L Baca % (Auto) (4 - 13 %) 1.9 L Eos % (Auto) (0 - 6 %) 0.1 Baso % (Auto) (0 - 2 %) 0.5 Neut # (Auto) (2.0 - 7.6 K/mm3) 13.62 H Lymph # (Auto) (1.0 - 3.8 K/mm3) 0.91 L Baca # (Auto) (0.1 - 0.8 K/mm3) 0.29 Eos # (Auto) (0.0 - 0.2 K/mm3) 0.01 Baso # (Auto) (0.0 - 0.2 K/mm3) 0.08 Immature Gran % (0.0 - 2.0 %) 1.1 Nucleated RBC % (0 - 1.0 %) 0.0 Nucleated RBCs # (Man) (0.0 - 0.1 K/mm3) 0.00 Diagnosis, Assessment Plan Free Text DxA P Notes Free Text DxA P Notes: 1. V-tach with AICD discharge 2. Acute on chronic systolic CHF exacerbation 3. paroxysmal afib, currently in sinus rhythm wi th frequentr PVCs 4. H/o temporal arteritis 5. Fibromyalgia 07/18/2019 Pt feelingbetter, denies any further AICD discha rge, cp/sob. She's in sinus rhythm with PVCs, and has be en started on amiodarone and increased coreg dose by Dr ham. BP borderline low, will change lasix to PO and d/c metolazone. - continue medical therapy and monitor for any arrhythmia Quality Medications Current medication review: I attest that the foregoing medication list in t medical record is true, accurate, and complete to the best of my knowled ge. at 1627 RPT #:[id number] END OF REPORT 2019-07-18 09:53:00-00:00 [id number] [address] PATIENT NAME: BREA GILES ADMIT DATE : 07/17/19 ACCOUNT NO: [id number] ROOM NO: [facility] AGE: 73 REPORT TYPE: CONSULTATION REPORT SEX: F ADMITTING PHYSICIAN:Dexter Beard MD ATTENDING PHYSICIAN:Dexter Beard MD CONSULTATION DATE: 07/18/2019 CONSULTING PHYSICIAN: Alexandr Hma MD REFERRING PHYSICIAN: Dexter Beard MD REASON FOR CONSULTATION: I was asked to evaluate this patient for AICD shock. HISTORY OF PRESENT ILLNESS: This is a 73-year-ol d female with history of diabetes, chronic systolic h eart failure, atrial arrhythmias, arthritis, asthma, CKD, obstructive sleep apnea. She was transferre d from [facility] after receiving an AICD shock. She stat es she was in her kitchen yesterday and had walked there from another room in her house and suddenly states she saw flashes of light and heard a soun d like thunder. She did not collapse. There was no loss of consciousness. Sh e denies dizziness or near syncope. She has had no chest pain. She was foun d to have an AICD shock and was transferred here for further evaluation and care. Currently, no new complaints. PAST MEDICAL HISTORY: 1. Chronic systolic heart failure with ejection fraction 25% to 29% by 2D echocardiogram, 06/25/2019. 2. History of multifocal atrial tachycardia. 3. History of diabetes. 4. History of temporal arteritis. FAMILY HISTORY: Twin sister has a history of cor onary artery disease with myocardial infarction. SOCIAL HISTORY: No tobacco. Occasional alcohol. The patient's recently . ALLERGIES: NKDA. HOME MEDICATIONS: Carvedilol 6.25 mg twice daily , Entresto 24/26 mg twice daily, spironolactone 25 mg daily, aspirin 81 mg daily, Cymbalta 60 mg twice daily, omeprazole 20 mg krishna y, metolazone 2.5 mg daily, Lasix 40 mg twice daily, metformin 500 mg twice daily, prednisone 20 mg d aily, melatonin 3 mg each evening p.r.n. sleep. REVIEW OF SYSTEMS: CONSTITUTIONAL: No complaints of fever or chills . PATIENT NAME: BREA GILES ENMT: No complaints of headache. EYES: Complaints of flashes of light yesterday w ith AICD shock. RESPIRATORY: No complaints of shortness of breat h or cough. CARDIOVASCULAR: No complaints of palpitations or exertional chest pain. GASTROINTESTINAL: No complaints of nausea or vom iting. GENITOURINARY: No complaints of urinary frequenc y or dysuria. MUSCULOSKELETAL: No complaints of joint pain. SKIN: No complaints of skin rash. NEUROLOGIC: No complaints of focal weakness. PHYSICAL EXAMINATION: GENERAL: Well-nourished female, in no acute dist ress. VITAL SIGNS: Temperature 98, blood press ure 118/56, pulse 62, respiratory rate 25, O2 saturations 93%. HEENT: Atraumatic, normocephalic. RESPIRATORY: Normal effort. LUNGS: Clear to auscultation bilaterally. CARDIOVASCULAR: Normal S1 and S2. No S3 or S4. EXTREMITIES: No edema. NECK: JVP is difficult to evaluate. LABORATORY DATA: 1. AICD interrogation reveals normal function. 2. One shock treated ventricular tachycardia epi sode. This appears to be atrial tachycardia with 1:1 conduction. One nons ustained ventricular tachycardia. IMPRESSION: 1. AICD shock. The shock appeared to be secondary to 1:1 tracking of an atrial tachycardia/AFIB 2. Nonsustained ventricular tachycardia. 3. Chronic systolic heart failure with ejection fraction 25% to 29%. A 2D echocardiogram on 06/25/2019. 4. Diabetes. RECOMMENDATIONS: We will increase carved ilol and add digoxin for improved rate control. Add amiodarone. Dictated By: Alexandr Ham MD WT: CON:ALCON/PEPGR/NTS Conf#: [id number]/DID#: [id number] Authenticated and Edited by Alexandr Ham MD On 07/20/19 7:40:03 AM at 0743 PATIENT NAME: BREA GILES 2019-07-17 14:39:00-00:00 [facility] ([facility]) History Physical - Adult REPORT#:[id number] REPORT STATUS: Signed DATE:07/17/19 TIME: 9 PATIENT: BREA GILES UNIT #: [id number] ROOM/BED: [place] [address] : 45 AGE: 73 SEX: F ATTEND: Martin Beard MD ADM AUTHOR: Dirk Cavazos PM 1 * ALL edits or amendments must be made on the [employer] document * History of Present Illness Free Text HPI Notes Free Text HPI Notes: 73yo female with a PMHx of D M, CHF, A-fib, Arthritis, Asthma, CKD, Sleep apnea, and recent AICD placement. She presented to the ED at this facility from [facility] because her A ICD, which was placed by Dr. Ham on 07/03/19, shocked her. Patie nt states the shock occured at midnight last night. Patient admits to higher than usual physical exe rtion prior to the event. She felt chest pain, headache, S OB, and some visual changes after the event. Patient denies any symptoms at the present. She states s he was given morphine while being transported by the EMS . Patient states she has been taking her medication as directed. She missed the last set of medicati ons due to being transported. History Past medical history: Reports: Arthritis, Asthma, Congestive heart chance lure, Cardiac dysrhythmias, Chronic pain. Additional medical history: FMR. KAMALA. TEMPORAL ARTERITIS. CHF. BORDERLINE DM. INTRACRANIAL TUMOR for which she's being followe d at [facility], and she was told it's benign. NO H/O CAD; cardiac cath was negative. BURSITIS OF THE KNEE. Past surgical history: Reports: Cholecystectomy, Hernia repair, Hystere ctomy. Additional surgical history: Right total knee replacement. Additional family history: Father of lung cancer. Mother of colon cancer. Son of Crohn's disease at age 41. Identical twin has CAD. One sister has some rare arthritis, and DM. Alcohol use: Denies EtOH use Drug use: Denies recreational drugs Smoking status for patients 13 years old or olde r: Never Smoker Other social history: Retired, Good social suppo rt Medication/Allergy-Vaccine Hx Home Medications: ACETAMINOPHEN (TYLENOL) 650 MG PO Q6H PRN PRN PA IN 1-5/HEADACHE/FEVER ASPIRIN 81 MG PO DAILY CARVEDILOL (COREG) 6.25 MG PO Q12HR DULoxetine DR (CYMBALTA) 60 MG PO BID FUROSEMIDE (LASIX) 40 MG PO BID HYDROcodone/APAP (NORCO 5/325) 1 TAB PO Q4H PRN PRN PAIN SCALE 4-6 MELATONIN 6 MG PO BEDTIME PRN SLEEP metFORMIN (GLUCOPHAGE) 1,000 MG PO BID MEALS METOLAZONE (ZAROXOLYN) 2.5 MG PO MOWEFR OMEPRAZOLE DR (OMEPRAZOLE) 20 MG PO DAILY predniSONE 20 MG PO DAILY Sacubitril/Valsartan (Entresto 24 MG-26 MG Table t) 1 TAB PO BID SPIRONOLACTONE (ALDACTONE) 50 MG PO DAILY Discontinued Medications METOLAZONE (ZAROXOLYN) 2.5 MG PO DAILY Discontinued reason: Change of medication POTASSIUM CHLORIDE ER (KLOR-CON M20) 20 MEQ PO D AILY Discontinued reason: Change of medication Sacubitril/Valsartan (Entresto 24 MG-26 MG Table t) 1 TAB PO DAILY Discontinued reason: Change of medication SPIRONOLACTONE (ALDACTONE) 25 MG PO DAILY Discontinued reason: Change of medication Allergies: Coded Allergies: No Known Allergies (06/25/19) Ambulatory status: Independent Review of Systems Constitutional: Denies: chills, fatigue, fever, malaise. Eyes: Denies: discharge, visual loss/blurred, diplopia , eye pain. ENT: Denies: earache, hearing loss, sore throat, tong ue pain. Respiratory: Denies: CORTEZ (dyspnea on exertion), hemoptysis, S OB, wheezing. Cardiovascular: Denies: chest pain, CORTEZ (dyspnea on exertion), p alpitations. GI: Denies: abdominal pain, constipation, diarrhea, nausea, vomiting. Neuro: Denies: change in LOC, confusion, dizziness, hea dache, lightheaded, slurred speech, unable to speak, vision change. Physical Exam VS/I O Vital Signs: Date Time Temp Pulse Resp B/P B/P Pulse O2 O2 F low FiO2 Mean Ox Delivery Rate 07/17 1411 94 16 116/58 77 94 Room air 07/17 1330 98 12 141/71 94 98 Room air 07/17 1251 36.8 85 18 152/73 99 98 Room air Patient Weight Weight (lb): Weight (oz): Weight (kg): 102.273 General appearance: alert, awake, oriented, no a cute distress, pleasant, conversational, mental status normal, no respira tory distress Head/Eyes: atraumatic, clear cornea, EOMI ENT: moist mucosal membranes, normal dentition Neck: full range of motion, non-tender, no JVD Cardiovascular: decreased cap refill, irregular rhythm Respiratory: no distress, no tenderness, aeratin g well, symmetric expansion Abdomen/GI: soft, non-tender, no guarding, no re bound Musculoskeletal: full range of motion, normal in spection Neuro/DYE BLENDER: alert, oriented X 3, normal speech Results Findings/Data: Laboratory Tests: 07/17 07/17 1302 1255 Chemistry Sodium (137 - 145 MMOL/L) 134 L Potassium (3.5 - 5.1 MMOL/L) 4.0 Chloride (98 - 107 MMOL/L) 93 L Carbon Dioxide (22 - 30 MMOL/L) 31 H Anion Gap (14 - 24 MMOL/L) 14 BUN (7 - 17 MG/DL) 36 H Creatinine (0.52 - 1.04 MG/DL) 0.90 Glomerular Filtr Rate > 60 Glucose (74 - 106 MG/DL) 151 H Calcium (8.4 - 10.2 MG/DL) 10.3 H Phosphorus (2.5 - 4.5 MG/DL) 3.6 Magnesium (1.6 - 2.3 MG/DL) 2.1 Total Bilirubin (0.2 - 1.3 MG/DL) 0.6 AST (14 - 36 UNITS/L) 23 ALT (9 - 52 UNITS/L) 16 Total Alk Phosphatase (38 - 126 UNITS/L) 79 Rapid Troponin I (0.00 - 0.05 NG/ML) 0.04 Total Protein (6.3 - 8.2 G/DL) 6.8 Albumin (3.5 - 5.0 G/DL) 4.0 Coagulation INR (0.8 - 1.1) 1.0 APTT (22.0 - 33.0 SECONDS) 31.5 PT Patient/Control Mix (9.6 - 11.6 SECONDS) 10. 9 Hematology WBC (3.8 - 9.8 K/MM3) 15.1 H RBC (3.58 - 4.97 M/MM3) 5.35 H Hgb (11.2 - 14.9 G/DL) 12.7 Hct (33.2 - 43.5 %) 43.5 MCV (80.7 - 99.1 fL) 81 MCH (27.0 - 34.1 pg) 23.7 L MCHC (32.2 - 35.7 %) 29.2 L RDW (12.1 - 15.2 %) 16.8 H Plt Count (129 - 368 K/MM3) 564 H MPV (7.4 - 10.4 fl) 9.7 Neut % (Auto) (43 - 75 %) 71.9 Lymph % (Auto) (14 - 44 %) 16.6 Baca % (Auto) (4 - 13 %) 8.1 Eos % (Auto) (0 - 6 %) 1.5 Baso % (Auto) (0 - 2 %) 0.7 Neut # (Auto) (2.0 - 7.6 K/mm3) 10.89 H Lymph # (Auto) (1.0 - 3.8 K/mm3) 2.52 Baca # (Auto) (0.1 - 0.8 K/mm3) 1.23 H Eos # (Auto) (0.0 - 0.2 K/mm3) 0.22 H Baso # (Auto) (0.0 - 0.2 K/mm3) 0.10 Immature Gran % (0.0 - 2.0 %) 1.2 Nucleated RBC % (0 - 1.0 %) 0.0 Nucleated RBCs # (Man) (0.0 - 0.1 K/mm3) 0.00 Radiology data: Recent Impressions: RADIOLOGY - XR CHEST 1V 07/17 1310 Report Impression - Status: SIGNED Entered: 07/17/2019 1339 IMPRESSION: There is no radiographic evidence of acute cardi opulmonary disease. Impression By: Dwaine - Niko Howell MD Diagnosis, Assessment Plan Free Text DxA P Notes Free Text DxA P Notes: Assessment 1. AICD with defribrillation; acute on chronic b iventricular dysfunction 2. Rule out ACS with serial troponin 3. CHF 4. Fibromyalgia Plan 07/17/2019 - Continue home meds - BNP ordered - Serial troponin. Will monitor - Consult Dr. Ham Quality Medications Current medication review: I attest that the foregoing medication list in [facility] medical record is true, accurate, and complete to the best of my knowled ge. at 7659 RPT #:[id number] END OF REPORT 2019-07-17 14:39:00-00:00 [facility] ([facility]) History Physical - Adult REPORT#:[id number] REPORT STATUS: Signed DATE:07/17/19 TIME: 1439 PATIENT: BREA GILES UNIT #: [id number] ROOM/BED: [address] : 45 AGE: 73 SEX: F ATTEND: Martin Beard MD ADM AUTHOR: Dirk Cavazos DPM 1 * ALL edits or amendments must be made on the [employer]computer document * Dirk Cavazos 07/17/19 1439: History of Present Illness Free Text HPI Notes Free Text HPI Notes: 73yo female with a PMHx of D M, CHF, A-fib, Arthritis, Asthma, CKD, Sleep apnea, and recent AICD placement. She presented to the ED at this facility from [facility] because her A ICD, which was placed by Dr. Ham on 07/03/19, shocked her. Patie nt states the shock occured at midnight last night. Patient admits to higher than usual physical exe rtion prior to the event. She felt chest pain, headache, S OB, and some visual changes after the event. Patient denies any symptoms at the present. She states s he was given morphine while being transported by the EMS . Patient states she has been taking her medication as directed. She missed the last set of medicati ons due to being transported. History Past medical history: Reports: Arthritis, Asthma, Congestive heart chance lure, Cardiac dysrhythmias, Chronic pain. Additional medical history: FMR. KAMALA. TEMPORAL ARTERITIS. CHF. BORDERLINE DM. INTRACRANIAL TUMOR for which she's being followe d at [facility], and she was told it's benign. NO H/O CAD; cardiac cath was negative. BURSITIS OF THE KNEE. Past surgical history: Reports: Cholecystectomy, Hernia repair, Hystere ctomy. Additional surgical history: Right total knee replacement. Additional family history: Father of lung cancer. Mother of colon cancer. Son of Crohn's disease at age 41. Identical twin has CAD. One sister has some rare arthritis, and DM. Alcohol use: Denies EtOH use Drug use: Denies recreational drugs Smoking status for patients 13 years old or olde r: Never Smoker Other social history: Retired, Good social suppo rt Medication/Allergy-Vaccine Hx Home Medications: ACETAMINOPHEN (TYLENOL) 650 MG PO Q6H PRN PRN PA IN 1-5/HEADACHE/FEVER ASPIRIN 81 MG PO DAILY CARVEDILOL (COREG) 6.25 MG PO Q12HR DULoxetine DR (CYMBALTA) 60 MG PO BID FUROSEMIDE (LASIX) 40 MG PO BID HYDROcodone/APAP (NORCO 5/325) 1 TAB PO Q4H PRN PRN PAIN SCALE 4-6 MELATONIN 6 MG PO BEDTIME PRN SLEEP metFORMIN (GLUCOPHAGE) 1,000 MG PO BID MEALS METOLAZONE (ZAROXOLYN) 2.5 MG PO MOWEFR OMEPRAZOLE DR (OMEPRAZOLE) 20 MG PO DAILY predniSONE 20 MG PO DAILY Sacubitril/Valsartan (Entresto 24 MG-26 MG Table t) 1 TAB PO BID SPIRONOLACTONE (ALDACTONE) 50 MG PO DAILY Discontinued Medications METOLAZONE (ZAROXOLYN) 2.5 MG PO DAILY Discontinued reason: Change of medication POTASSIUM CHLORIDE ER (KLOR-CON M20) 20 MEQ PO D AILY Discontinued reason: Change of medication Sacubitril/Valsartan (Entresto 24 MG-26 MG Table t) 1 TAB PO DAILY Discontinued reason: Change of medication SPIRONOLACTONE (ALDACTONE) 25 MG PO DAILY Discontinued reason: Change of medication Allergies: Coded Allergies: No Known Allergies (06/25/19) Ambulatory status: Independent Review of Systems Constitutional: Denies: chills, fatigue, fever, malaise. Eyes: Denies: discharge, visual loss/blurred, diplopia , eye pain. ENT: Denies: earache, hearing loss, sore throat, tong ue pain. Respiratory: Denies: CORTEZ (dyspnea on exertion), hemoptysis, S OB, wheezing. Cardiovascular: Denies: chest pain, CORTEZ (dyspnea on exertion), p alpitations. GI: Denies: abdominal pain, constipation, diarrhea, nausea, vomiting. Neuro: Denies: change in LOC, confusion, dizziness, hea dache, lightheaded, slurred speech, unable to speak, vision change. Physical Exam VS/I O Vital Signs: Date Time Temp Pulse Resp B/P B/P Pulse O2 O2 F low FiO2 Mean Ox Delivery Rate 07/17 1411 94 16 116/58 77 94 Room air 07/17 1330 98 12 141/71 94 98 Room air 07/17 1251 36.8 85 18 152/73 99 98 Room air Patient Weight Weight (lb): Weight (oz): Weight (kg): 102.273 General appearance: alert, awake, oriented, no a cute distress, pleasant, conversational, mental status normal, no respira tory distress Head/Eyes: atraumatic, clear cornea, EOMI ENT: moist mucosal membranes, normal dentition Neck: full range of motion, non-tender, no JVD Cardiovascular: decreased cap refill, irregular rhythm Respiratory: no distress, no tenderness, aeratin g well, symmetric expansion Abdomen/GI: soft, non-tender, no guarding, no re bound Musculoskeletal: full range of motion, normal in spection Neuro/DYE BLENDER: alert, oriented X 3, normal speech Results Findings/Data: Laboratory Tests: 07/17 07/17 1302 1255 Chemistry Sodium (137 - 145 MMOL/L) 134 L Potassium (3.5 - 5.1 MMOL/L) 4.0 Chloride (98 - 107 MMOL/L) 93 L Carbon Dioxide (22 - 30 MMOL/L) 31 H Anion Gap (14 - 24 MMOL/L) 14 BUN (7 - 17 MG/DL) 36 H Creatinine (0.52 - 1.04 MG/DL) 0.90 Glomerular Filtr Rate > 60 Glucose (74 - 106 MG/DL) 151 H Calcium (8.4 - 10.2 MG/DL) 10.3 H Phosphorus (2.5 - 4.5 MG/DL) 3.6 Magnesium (1.6 - 2.3 MG/DL) 2.1 Total Bilirubin (0.2 - 1.3 MG/DL) 0.6 AST (14 - 36 UNITS/L) 23 ALT (9 - 52 UNITS/L) 16 Total Alk Phosphatase (38 - 126 UNITS/L) 79 Rapid Troponin I (0.00 - 0.05 NG/ML) 0.04 Total Protein (6.3 - 8.2 G/DL) 6.8 Albumin (3.5 - 5.0 G/DL) 4.0 Coagulation INR (0.8 - 1.1) 1.0 APTT (22.0 - 33.0 SECONDS) 31.5 PT Patient/Control Mix (9.6 - 11.6 SECONDS) 10. 9 Hematology WBC (3.8 - 9.8 K/MM3) 15.1 H RBC (3.58 - 4.97 M/MM3) 5.35 H Hgb (11.2 - 14.9 G/DL) 12.7 Hct (33.2 - 43.5 %) 43.5 MCV (80.7 - 99.1 fL) 81 MCH (27.0 - 34.1 pg) 23.7 L MCHC (32.2 - 35.7 %) 29.2 L RDW (12.1 - 15.2 %) 16.8 H Plt Count (129 - 368 K/MM3) 564 H MPV (7.4 - 10.4 fl) 9.7 Neut % (Auto) (43 - 75 %) 71.9 Lymph % (Auto) (14 - 44 %) 16.6 Baca % (Auto) (4 - 13 %) 8.1 Eos % (Auto) (0 - 6 %) 1.5 Baso % (Auto) (0 - 2 %) 0.7 Neut # (Auto) (2.0 - 7.6 K/mm3) 10.89 H Lymph # (Auto) (1.0 - 3.8 K/mm3) 2.52 Baca # (Auto) (0.1 - 0.8 K/mm3) 1.23 H Eos # (Auto) (0.0 - 0.2 K/mm3) 0.22 H Baso # (Auto) (0.0 - 0.2 K/mm3) 0.10 Immature Gran % (0.0 - 2.0 %) 1.2 Nucleated RBC % (0 - 1.0 %) 0.0 Nucleated RBCs # (Man) (0.0 - 0.1 K/mm3) 0.00 Radiology data: Recent Impressions: RADIOLOGY - XR CHEST 1V 07/17 1310 Report Impression - Status: SIGNED Entered: 07/17/2019 6496 IMPRESSION: There is no radiographic evidence of acute cardi opulmonary disease. Impression By: ValentePMT - Niko Howell MD Diagnosis, Assessment Plan Free Text DxA P Notes Free Text DxA P Notes: Assessment 1. AICD with defribrillation; acute on chronic b iventricular dysfunction 2. Rule out ACS with serial troponin 3. CHF 4. Fibromyalgia Plan 07/17/2019 - Continue home meds - BNP ordered - Serial troponin. Will monitor - Consult Dr. Ham Quality Medications Current medication review: I attest that the foregoing medication list in [facility] medical record is true, accurate, and complete to the best of my knowled ge. Dexter Beard 07/17/191907: Diagnosis, Assessment Plan Free Text DxA P Notes Free Text DxA P Notes: Pt seen and examined in ER with Dr Barajas in and agree with his above assessment and plan. Pt is 73 yoF pleasant lady from [facility] with h/o dilated cardiomyopathy LVEF < 30% s/p recent AICD placem ent, admitted with cp and sob after her device defibrillated last night. Pt re lated no palpitation or dizziness prior to her AICD fired. 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 Currently, she;'s feleing be tter, denies cp/sob. Pt has been complaint with all her medications including her diuretics and entr esto. She remains in sinus rhythm with frequent PVS. Brief review of her AI CD interrogation report indicated multiple V-tach episodes. 1. V-tach with AICD discharge 2. Acute on chronic systolic CHF exacerbation 3. paroxysmal afib, currently in sinus rhythm wi th frequentr PVCs 4. H/o temporal arteritis 5. Fibromyalgia Plan: - Admit for further workup of cause of Vtach wit h AICD discharge - Resume CHF medications, increase coreg 12.6=5 mg bid. - consult Dr Ham to eval for possible anti-a rrhythmic medication at 1730 at [id number] RPT #:[id number] END OF REPORT 2019-07-17 12:45:00-00:00 [facility] ([facility]) EMERGENCY PROVIDER REPORT REPORT#:[id number] REPORT STATUS: Signed DATE:07/17/19 TIME: 1245 PATIENT: BREA GILES UNIT #: [id number] ROOM/BED: 349-A AGE: 73 SEX: F PCP PHYS: Viviana Thompson MD SERVICE AUTHOR: TAMY QUINTERO DO LOCATION: [facility] * ALL edits or amendments must be made on the el ectronic/computer document * HPI-General Illness Free Text HPI Notes Free Text HPI Notes 73 y/o F with PMHx of DM, CHF, A-fib, Arthritis, Asthma, AICD Placement, CKD Stage 3, Osteoarthritis, and Sleep Apnea present s to the ED via EMS from [facility] for AICD dysfunction. Pt felt her the device shock her once at approx 0000. Pt endorses associated chest aching, generalized JACKSON, and SOB. Per EMS and pt's prior medic al records, the device was placed on 07/03/[address] Alexandr Ham, interrogated by [facility], Dr. Ham was consulted regarding pt's condition, an d had advised transfer of the pt here for admission and further evaluation s/p being recently d/c fr om this facility on 07/13/19. Denies fever, chills, N/V/D, LOC, dizziness, changes in vision/speech/sensation, urinary abnormalities, and cold sx. No k nown triggers, physical injuries, sick encounters, or falls were reported. No other com plaints are noted for today. General Confirmed Patient Yes Patient Type New patient Initial Greet Date/Time 07/17/[address] Alexandr Ham ([facility]) Transferred From [facility] Presentation Chief Complaint AICD Dysfunction Hx Obtained From Patient, Eye Surgeon, Prior medic al records Sudden in Onset? No Onset Occurred Today Symptom Duration Since onset Progression since Onset Unchanged Caused by No trauma by history Associated with Reports: Chest pain, Headach e, Shortness of breath. Denies: Bleeding, Bruising, Congestion, Cough, Dizziness, Fever, Loss of con sciousness, Nausea, Speech abnormal, Vision change, Vomiting. Exacerbated by Nothing Relieved by Nothing Context Related History Reports: Asthma, Diabetes mellitus. Recent Healthcare Recent doctor visit, Recent ho spitalization, Recent testing Similar Sx Previous No Portions of this section were scribed by Oc Zaragoza on 07/17/19 at 1423 Review of Systems ROS Statements All systems rev neg except as marked. Review of Systems Constitutional Denies: Chills, Fever. Eyes Denies: Discharge bilat, Redness bilat. Ears/Nose/Throat Denies: Nasal congestion, Nose bleeding. Respiratory Reports: Shortness of breath . Denies: Cough, non-productive, Cough, productive. Cardiovascular Reports: Chest pain. Denies: Edema. GI Denies: Diarrhea, Nausea, Vomiting. Female Denies: Urination decreased, Urination increased . Musculoskeletal Denies: Extremity swelling, Joint swelling. Hematologic Denies: Bleeding, Bruising. Skin Denies: Abrasion, Rash. Allergy/Immun Denies: Itching, Rhinorrhea, Sneezing. Neurologic Reports: Headache. Denies: Change LOC, Dizziness , Seizure, Shaking, Unable to speak, Vision change. Portions of this section were scribed by Oc Zaragoza on 07/17/19 at 1423 Past Medical History - Adult Stated Complaint PACEMAKER FIRING Allergies Coded Allergies: No Known Allergies (06/25/19) Home Medications Active Scripts ACETAMINOPHEN (TYLENOL) 650 MG PO Q6H PRN PRN PA IN 1-5/HEADACHE/FEVER ACETAMINOPHEN (TYLENOL) 650 MG PO Q6H PRN PRN P AIN 1-5/HEADACHE/FEVER #1 TAB Prov: 07/04/19 METOLAZONE (ZAROXOLYN) 2.5 MG PO MOWEFR METOLAZONE (ZAROXOLYN) 2.5 MG PO MOWEFR #10 TAB Prov: 07/13/19 Sacubitril/Valsartan (Entresto 24 MG-26 MG Table t) 1 TAB PO BID Sacubitril/Valsartan (Entresto 24 MG-26 MG Tabl et) 1 TAB PO BID #10 TAB Prov: 07/13/19 SPIRONOLACTONE (ALDACTONE) 50 MG PO DAILY SPIRONOLACTONE (ALDACTONE) 50 MG PO DAILY #10 T AB Prov: 07/13/19 metFORMIN (GLUCOPHAGE) 1,000 MG PO BID MEALS metFORMIN (GLUCOPHAGE) 1,000 MG PO BID MEALS #6 0 TAB Prov: 07/13/19 CARVEDILOL (COREG) 6.25 MG PO Q12HR CARVEDILOL (COREG) 6.25 MG PO Q12HR #60 TAB Prov: 07/13/19 ASPIRIN 81 MG PO DAILY ASPIRIN 81 MG PO DAILY #30 TAB Prov: 07/13/[address] (CYMBALTA) 60 MG PO BID DULoxetine DR (CYMBALTA) 60 MG PO BID #30 CAP Prov: 07/13/19 HYDROcodone/APAP (NORCO 5/325) 1 TAB PO Q4H PRN PRN PAIN SCALE 4-6 HYDROcodone/APAP (NORCO 5/325) 1 TAB PO Q4H PRN PRN PAIN SCALE 4-6 #20 TAB Prov: 07/13/19 FUROSEMIDE (LASIX) 40 MG PO BID FUROSEMIDE (LASIX) 40 MG PO BID #30 TABS Prov: 07/13/[address] (OMEPRAZOLE) 20 MG PO DAILY OMEPRAZOLE DR (OMEPRAZOLE) 20 MG PO DAILY #30 T AB Prov: 07/13/19 predniSONE 20 MG PO DAILY predniSONE 20 MG PO DAILY #14 TAB Prov: 07/13/19 MELATONIN 6 MG PO BEDTIME PRN SLEEP MELATONIN 6 MG PO BEDTIME PRN SLEEP #30 TAB Prov: 07/13/19 Discontinued Scripts Sacubitril/Valsartan (Entresto 24 MG-26 MG Table t) 1 TAB PO DAILY Sacubitril/Valsartan (Entresto 24 MG-26 MG Tabl et) 1 TAB PO DAILY #1 TAB Prov: 07/04/19 DC: 07/13/19 1152 Change of medication CARVEDILOL (COREG) 6.25 MG PO Q12HR CARVEDILOL (COREG) 6.25 MG PO Q12HR #1 TAB Prov: 07/04/19 DC: 07/13/19 1256 SPIRONOLACTONE (ALDACTONE) 25 MG PO DAILY SPIRONOLACTONE (ALDACTONE) 25 MG PO DAILY #1 TA B Prov: 07/04/19 DC: 07/13/19 1153 Change of medication ASPIRIN 81 MG PO DAILY ASPIRIN 81 MG PO DAILY #1 TAB Prov: 07/04/19 DC: 07/13/19 1256 HYDROcodone/APAP (NORCO 5/325) 1 TAB PO Q4H PRN PRN PAIN SCALE 4-6 HYDROcodone/APAP (NORCO 5/325) 1 TAB PO Q4H PRN PRN PAIN SCALE 4-6 #1 TAB Prov: 07/04/19 DC: 07/13/19 1256 POTASSIUM CHLORIDE ER (KLOR-CON M20) 20 MEQ PO D AILY POTASSIUM CHLORIDE ER (KLOR-CON M20) 20 MEQ PO DAILY #1 TAB Prov: 07/04/19 DC: 07/13/19 1154 Change of medication METOLAZONE (ZAROXOLYN) 2.5 MG PO DAILY METOLAZONE (ZAROXOLYN) 2.5 MG PO DAILY #1 TAB Prov: 07/04/19 DC: 07/13/19 1151 Change of medication MELATONIN 6 MG PO BEDTIME PRN SLEEP MELATONIN 6 MG PO BEDTIME PRN SLEEP #1 TAB Prov: 07/04/19 DC: 07/13/19 1256 FUROSEMIDE (LASIX) 40 MG PO BID FUROSEMIDE (LASIX) 40 MG PO BID #1 TABS Prov: 07/04/19 DC: 07/13/19 1256 Discontinued Reported Medications DULoxetine DR (CYMBALTA) 60 MG PO BID DULoxetine DR (CYMBALTA) 60 MG PO BID #30 DC: 07/13/[address] (OMEPRAZOLE) 20 MG PO DAILY predniSONE 20 MG PO DAILY Past Medical History: Reports: Arthritis, Asthma, Congestive heart chance lure, Cardiac dysrhythmias, Chronic pain. Additional Medical History FMR. KAMALA. TEMPORAL ARTERITIS. CHF. BORDERLINE DM. INTRACRANIAL TUMOR for which she's being followe d at [facility], and she was told it's benign. NO H/O CAD; cardiac cath was negative. BURSITIS OF THE KNEE. Past Surgical History: Reports: Cholecystectomy, Hernia repair, Hystere ctomy. Additional Surgical History Right total knee replacement. Additional Family History Father of lung cancer. Mother of colon cancer. Son of Crohn's disease at age 41. Identical twin has CAD. One sister has some rare arthritis, and DM. Alcohol Use Denies EtOH use Drug Use Denies recreational drugs Smoking status for patients 13 years old or olde r: Unknown,if ever smoked Other Social History Retired, Good social suppor t Ambulatory Status Independent Portions of this section were scribed by Oc Zaragoza on 07/17/19 at 1245 Physical Exam Vital Signs Vital Signs First Documented: Result Date Time Pulse Ox 98 07/17 1251 B/P 152/73 07/17 1251 B/P Mean 99 07/17 1251 O2 Delivery Room air 07/17 125 Temp 36.8 07/17 1251 Pulse 85 07/17 1251 Resp 18 07/17 1251 Last Documented: Result Date Time Pulse Ox 94 07/17 1411 B/P 116/58 07/17 141 B/P Mean 77 07/17 141 O2 Delivery Room air 07/17 141 Pulse 94 07/17 141 Resp 16 07/17 141 Temp 36.8 07/17 1251 Review of Vital Signs Reviewed Physical Exam General/Const General/Const Awake, Alert, No acute distress, Cooperative, Not toxic appearing MS Head Head Atraumatic, Normocephalic Eyes Eyes Atraumatic, Conjunctiva NL Ears/Nose/Throat Ears/Nose/Throat Atraumatic, Airway patent MS Neck Neck Supple, No tracheal deviation Resp/Chest Respiratory/Chest Breath sounds NL, Breath soun ds = bilat, No respiratory distress, No rales, No rhonchi, No wheezing Cardiovascular Cardiovascular Heart rate NL, Regular rhythm, H eart sounds NL, No gallop, No murmurs, No rubs Text/Dict Notes Pacemaker site appears to be healing well with s ome tenderness Abdomen/GI Abdomen/GI Soft, Non-tender, No distention MS Back Back Inspection NL, Full range of motion Skin Skin Warm, Dry, Intact Neurologic Neurologic Oriented X3, Speech NL, No motor def icits Psychiatric Psychiatric Affect NL, Mood NL Portions of this section were scribed by Oc Zaragoza on 07/17/19 at 1423 Interpretation Diagnostics Lab Results Interpretation Results Laboratory Tests 07/17/19 1255: [Embedded Image Not Available] Laboratory Tests: 07/17 07/17 07/17 1302 1255 1255 Chemistry Sodium (137 - 145 MMOL/L) 134 L Potassium (3.5 - 5.1 MMOL/L) 4.0 Chloride (98 - 107 MMOL/L) 93 L Carbon Dioxide (22 - 30 MMOL/L) 31 H Anion Gap (14 - 24 MMOL/L) 14 BUN (7 - 17 MG/DL) 36 H Creatinine (0.52 - 1.04 MG/DL) 0.90 Glomerular Filtr Rate > 60 Glucose (74 - 106 MG/DL) 151 H Calcium (8.4 - 10.2 MG/DL) 10.3 H Phosphorus (2.5 - 4.5 MG/DL) 3.6 Magnesium (1.6 - 2.3 MG/DL) 2.1 Total Bilirubin (0.2 - 1.3 MG/DL) 0.6 AST (14 - 36 UNITS/L) 23 ALT (9 - 52 UNITS/L) 16 Total Alk Phosphatase (38 - 126 UNITS/L) 79 Rapid Troponin I (0.00 - 0.05 NG/ML) 0.04 B-Natriuretic Peptide (0 - 100 PG/ML) 336.0 H Total Protein (6.3 - 8.2 G/DL) 6.8 Albumin (3.5 - 5.0 G/DL) 4.0 Coagulation INR (0.8 - 1.1) 1.0 APTT (22.0 - 33.0 SECONDS) 31.5 PT Patient/Control Mix (9.6 - 11.6 SECONDS) 10. 9 Hematology WBC (3.8 - 9.8 K/MM3) 15.1 H RBC (3.58 - 4.97 M/MM3) 5.35 H Hgb (11.2 - 14.9 G/DL) 12.7 Hct (33.2 - 43.5 %) 43.5 MCV (80.7 - 99.1 fL) 81 MCH (27.0 - 34.1 pg) 23.7 L MCHC (32.2 - 35.7 %) 29.2 L RDW (12.1 - 15.2 %) 16.8 H Plt Count (129 - 368 K/MM3) 564 H MPV (7.4 - 10.4 fl) 9.7 Neut % (Auto) (43 - 75 %) 71.9 Lymph % (Auto) (14 - 44 %) 16.6 Baca % (Auto) (4 - 13 %) 8.1 Eos % (Auto) (0 - 6 %) 1.5 Baso % (Auto) (0 - 2 %) 0.7 Neut # (Auto) (2.0 - 7.6 K/mm3) 10.89 H Lymph # (Auto) (1.0 - 3.8 K/mm3) 2.52 Baca # (Auto) (0.1 - 0.8 K/mm3) 1.23 H Eos # (Auto) (0.0 - 0.2 K/mm3) 0.22 H Baso # (Auto) (0.0 - 0.2 K/mm3) 0.10 Immature Gran % (0.0 - 2.0 %) 1.2 Nucleated RBC % (0 - 1.0 %) 0.0 Nucleated RBCs # (Man) (0.0 - 0.1 K/mm3) 0.00 Recent Impressions: RADIOLOGY - XR CHEST 1V 07/17 1310 Report Impression - Status: SIGNED Entered: 07/17/2019 1339 IMPRESSION: There is no radiographic evidence of acute cardi opulmonary disease. Impression By: Dwaine Howell MD Lab Imaging Statement Laboratory radiographic studies reviewed and con sidered in the medical decision-making. Point of Care Testing Pulse Oximetry Pulse Ox % 98 On: Room air Interpretation Interpreted by me, Pulse oximetr y normal Time 1251 ECG #1 Interpretation Text/Dict Note Frequent PVC's ECG Documented in MUSE Yes Date 07/17/19 Time 1251 Interpreted by ED physician NL ECG Interpretation Normal rate, Normal sinus rhythm, No STEMI, Normal ST waves, Normal T waves, Normal axis, Normal inter vals Rate 89 Portions of this section were scribed by Oc Zaragoza on 07/17/19 at 1413 Re-Evaluation MDM Free Text MDM Notes Additional Text DDX: MA, AICD firing, unstable angina, electroly te abnormality, dehydration Labs unremarkable except darrel kocytosis. Troponin negative. Lytes including K and Mg normal. EKG with no evide nce of VTach. No repeat shocks in ED. Interrogations shows episodes of sustained and non-sust ained VTach. Pt admitted for continued cardiology evaluation. Re-Evaluation/Progress #1 Text/Dict Note Reviewed all lab and imaging results with pt, all questions were encouraged and answered. Discussed admission to further evaluat e sx. Pt was just [facility] within the past mo nth and will be readmitted to their care. Pt agrees to plan of care. Time of Re-Eval 1345 Re-Eval Status Improved Eval Following Treatment Condition improved Pain Re-Evaluation Pain improved Plan Post Re-Eval Plan admit ED Course Medication(s) Ordered Medication(s) Ordered: Central Nervous System Agents Sig/Felix Start time Last Medication Dose Route Stop Time Status Admin Hydrocodone Bitart/ 1 TAB Q4H PRN PRN 07/17 141 0 AC 07/18 Acetaminophen PO 08/01 1308 0833 Consultation Consultation Referral/Consult Name Alexandr Ham MD Straightening Machine Feeder Called Cardiology Requested Call Time 1350 Requested Call Date 07/17/19 Call Returned Call returned Call Returned Time 1420 Call Returned Date 07/17/19 Straightening Machine Feeder Will see patient, Agrees with eval, Agrees with plan Portions of this section were scribed by Oc Zaragoza on 07/17/19 at 1423 Patient Discharge Departure Vital Signs/Condition Vital Signs First Documented: Result Date Time Pulse Ox 98 07/17 1251 B/P 152/73 07/17 1251 B/P Mean 99 07/17 1251 O2 Delivery Room air 07/17 1251 Temp 36.8 07/17 1251 Pulse 85 07/17 1251 Resp 18 07/17 1251 Last Documented: Result Date Time Pulse Ox 94 07/17 1411 B/P 116/58 07/17 1411 B/P Mean 77 07/17 1411 O2 Delivery Room air 07/17 1411 Pulse 94 07/17 1411 Resp 16 07/17 1411 Temp 36.8 07/17 1251 All vital signs available at the time of this en try have been reviewed. Condition Stable Clinical Impression Clinical Impression Primary Impression: AICD discharge Secondary Impressions: Chest pain, Frequent PVCs Time of Impression 1350 Disposition Decision Admit Admit Physician Name Dexter Beard MD Admit Physician Hospitalist Request Time 1350 Request Date 07/17/19 )( Admission Accepts Yes )( Accepted Time 1411 )( Accepted Date 07/17/19 Call Information will see patient, agrees with eval, agrees with plan Discharge/Care Plan Counseled Regarding Diagnosi s, Lab results, Imaging studies, Need for admission Admit Note I have spoken with the patie nt and/or caregivers. I have explained the patient's condition, diagnoses and sandrine atment plan based on the information available to me at this time. I have answered the patient's and/ or caregiver's questions and addressed any concerns. The patient and/or careg rashida have as good an understanding of the patient 's diagnosis, condition and treatment plan as can be expected at this point. The patient has been stabilized within the capability of the emergency department. The patient wi ll be transported for further care and management or will be moved to an observation or inpatient service. I have communicated with the staff or medical p ractitioner taking over this patient's care. Quality Measures BP F/U for HTN Patient admitted 12-Lead ECG for CP Performed documented Supervising Physician Note Scribe Statement Sergio Zaragoza, 07/17/19 1411, scribing for and in th e presence of Dr. Tamy Quintero DO. Signed By: Sergio Zaragoza, 07/17/19 1411 Provider Scribed Statement I personally performed the s ervices described in this documentation and reviewed the documentation that was dictated to the scrib e(s) in my presence, and it accurately records my words and actions. Tamy Quintero, 07/17/19 Portions of this section were scribed by Oc Zaragoza on 07/17/19 at 1413 at 1745 RPT #:[id number] END OF REPORT 2019-07-13 22:05:00-00:00 [facility] ([facility]) Hospitalist Progress Note REPORT#:[id number] REPORT STATUS: Signed DATE:07/13/19 TIME: 2204 PATIENT: BREA GILES UNIT #: [id number] ROOM/BED: [address] : 45 AGE: 73 SEX: F ATTEND: Osman Blankenship MD ADM AUTHOR: Gia Andersen MD * ALL edits or amendments must be made on the [employer]/computer document * Subjective Chief Complaint: 73 yoF with 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 Review of Systems Constitutional: Denies: chills, fever, lethargy. Respiratory: Reports: CORTEZ (dyspnea on exertion). Denies: pleu ritic pain. Cardiovascular: Denies: chest pain, palpitations. Objective General VS/I O: Vital Signs: Date Time Temp Pulse Resp B/P B/P Pulse O2 O2 F low FiO2 Mean Ox Delivery Rate 07/13 1524 98.1 60 18 120/66 84.4 95 Room air 07/13 0754 46 124/73 90.1 07/13 0450 97.5 56 18 122/69 86.4 97 24 hour I O ending at 0700: 07/13 0700 07/12 1900 Intake Total 400 Output Total Balance 400 Intake, Oral 400 Number 0 Bowel Movements Number Voids 3 Patient Weight Weight (lb): 219 Weight (oz): 7.17 Weight (kg): 99.540 Medications: Active Meds + DC'd Last 24 Hrs Metformin HCl 1,000 MG BID MEALS PO (DCD) Metolazone 2.5 MG MOWEFR PO (DCD) Sacubitril/Valsartan 1 TAB BID PO (DCD) Furosemide 40 MG BID 9A 5P PO (DCD) Spironolactone 50 MG DAILY PO (DCD) Aspirin 81 MG DAILY PO (DCD) Pantoprazole 40 MG DAILY PO (DCD) Prednisone 20 MG DAILY PO (DCD) Carvedilol 6.25 MG Q12HR PO (DCD) Duloxetine HCl 60 MG BID PO (DCD) Insulin Human Lispro MEDIUM DOSE SLIDING SCALE AC HS SUBQ (DCD) Dextrose/Water 12.5 GM ASDIR PRN IV (DCD) Dextrose/Water 25 GM ASDIR PRN IV (DCD) Acetaminophen 650 MG Q6H PRN PRN PO (DCD) Hydrocodone Bitart/Acetaminophen 1 TAB Q4H PRN P RN PO (DCD) Melatonin 6 MG BEDTIME PRN PO (DCD) Bisacodyl 5 MG BID PRN PRN PO (DCD) Bisacodyl 10 MG DAILY PRN PRN RECTAL (DCD) Docusate Sodium 100 MG BID PRN PRN PO (DCD) Magnesium Hydroxide 30 ML DAILY PRN PRN PO (DCD) Physical Exam General appearance: alert, awake Head/Eyes: atraumatic, clear cornea ENT: moist mucosal membranes, normal dentition Neck: non-tender Cardiovascular: normal heart sounds, regular rat e rhythm Respiratory: rales Abdomen: non-tender, normal bowel sounds, soft Extremities: edema, moves all Results Findings/Data: Laboratory Tests 07/13 07/13 07/13 07/13 1642 1555 1129 0652 Chemistry BUN (7 - 17 MG/DL) 63 H Creatinine (0.52 - 1.04 MG/DL) 1.50 H Glomerular Filtr Rate 34 POC Glucose (60 - 99 MG/DL) 232 H 149 H 145 H Diagnosis, Assessment Plan Free Text DxA P Notes Free Text DxA P Notes: 1. Acute on chronic systolic heart failure with left ventricular ejection fraction of less than 30%, status post AICD plac ement. 2. History of paroxysmal atr ial fibrillation, currently in normal sinus rhythm. 3. Diabetes type 2. 4. Hypertension. 5. Temporal arteritis, currently controlled on p rednisone 20 once daily. 6. Morbid obesity. 7. Rule out for right segmental pulmonary emboli sm 8. Fibromyalgia 07/07/2019 pt diuresing well, feeling and breathing better. Pt c/o nocturia due to late lasix - change metolazone 2.5 mg MWF - Increase aldactone 50 mg daily and change las ix 40 mg 9AM and 5PM - Pt remains in NSR, contin ue to hold anticoagulation for paroxysmal afib until AICD wound healed 07/09- resting comfortably. bruises noted on arms - will continue with current mx. 07/10- walking with the walker without any assist ance - plan for dc home on tuesday -BS high. will increase metformin to 1gm bid -will continue with current mx 07/12- sitting comfortably. - plan dc tomorrow. 07/13- no acute issues ready for discharge today Quality Medications Current medication review: I attest that the foregoing medication list in t he medical record is true, accurate, and complete to the best of my knowled ge. Advanced Care Plan 65 or Older Discussed with: patient, other Discussion included: code status (full code) Heart Failure:DC on BB,KIKA/ARB LVEF: < 40% Beta rocio Rx at DC: yes; medication: ACEI/ARB Rx at DC: yes; medication: Electronically Signed by Gia Andersen MD on at 1127 RPT #:[id number] END OF REPORT 2019-07-13 11:30:00-00:00 [id number] [address] PATIENT NAME: BREA GILES ADMIT DATE : 07/04/19 ACCOUNT NO: [id number] ROOM NO: Z.527 AGE: 73 REPORT TYPE: DISCHARGE SUMMARY REPORT SEX: F ADMITTING PHYSICIAN:Adrian Blankenship MD ATTENDING PHYSICIAN:Adrian Blankenship MD ADMISSION DATE: 07/04/2019 DISCHARGE DATE: DISCHARGE DIAGNOSES: 1. Debility. 2. Qhzjq-et-pzilqpi congestive heart failure, re solved. 3. Nonischemic cardiomyopathy with decreased eje ction fraction. 4. History of atrial fibrillation, rate controll ed. 5. Status post placement of automatic implantabl e cardioverter-defibrillator recently. 6. Chronic kidney disease, stable. 7. Diabetes mellitus. 8. Osteoarthritis. 9. Obstructive sleep apnea. 10. Morbid obesity. 11. 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 LABORATORY DATA AND CONSULTATIONS: The patient w as followed medically by the [facility] for management as well as her consulting sign builder supervisor, Dr. Alexandr Ham who had placed the AICD durin g this hospital stay. The patient's blood glucoses showed that her indra betes was uncontrolled with blood sugars very frequently over 200. The patie nt also was followed by clinical psychology for coping skills and suppor tive psychotherapy. HOSPITAL COURSE: This patient did well during he r rehabilitation stay and was able to participate in rehabilitation program on a consistent daily basis, averaging 180 minutes or more of therapy per day . She was discharged in medically stable condition. REHABILITATION PROGRAM: The patient was placed i n a comprehensive inpatient rehabilitation program inclu ding occupational therapy and physical therapy. She made excellent progress in all areas of function ing and by discharge was essentially independent in household mobility an d activities of daily living including all self-care. DISPOSITION: The patient was discharged to her [facility] home where she lives by PATIENT NAME: BREA GILES herself. However, she has several family members living in the immediate area who will look in on her and provide any assistance with instrumental activities of daily living that is needed. In addition, she was ordered home health rehabilitation services including occupational t herapy, physical therapy, and visiting nurse and home health aide. DISCHARGE MEDICATIONS: Listed on the dis charge medication reconciliation form. She will follow up with her local sign builder supervisor f or management of her cardiovascular disorders and she will follow up with Dr. Ham as directed for her AICD maintenance. Dictated By: Adrian Blankenship MD WT: DS:ALCON/LYDIA/FRACISCO Conf#: [id number]/DID#: [id number] Authenticated by Adrian Blankenship MD On 9 12:26:17 PM Electronically Signed by Adrian Blankenship MD on at 1226 PATIENT NAME: BREA GILES 2019-07-13 11:19:00-00:00 [id number] [place] [address] PATIENT NAME: BREA GILES ADMIT DATE : 07/04/19 ACCOUNT NO: [id number] ROOM NO: Z.527 AGE: 73 REPORT TYPE: PROGRESS NOTE SEX: F ADMITTING PHYSICIAN:Adrian Blankenship MD ATTENDING PHYSICIAN:Adrian Blankenship MD DATE: 07/13/2019 Ms. Jorge Alberto Garcia is seen o n 07/13/2019 for rehabilitation direction, discharge arrangements, and home health rehabilitation ser vices assessment for debility associated with recent exacerbation of chronic c ongestive heart failure with shortness of breath and hypoxia. This pa pablo was referred to this hospital by an outside facility for dire ct admission on 06/24/2019 after she presented there with severe shortness of breath. She was found t o have a nonischemic cardiomyopathy with arrhythm ia and bradycardia and she underwent implantation of AICD on 07/02/[address] Ham. The patient's respiratory insufficiency was stabilized and she was mobilized by occupational therapy and physical therapy and then admitted to the inpatient rehabilitatio n unit on 07/04/2019. The patient was thought at one p oint to have an acute pulmonary embolism based on an outside CT of the chest and she was on oral anti coagulation for a time. However, her CTA of the chest was repeat ed and it did not show any evidence of pulmonary embolism. She was not started on long- term anticoagulation and her enoxaparin was also discontinued. The pa tient was subsequently in normal sinus rhythm with intermittent demand pacing, which wa s also discontinued. The patient was monitored closely for he r diabetes, which is uncontrolled with blood sugars frequently over 200. The patient's congestive heart failure is being managed with multiple medications. She als o has temporal arteritis and chronically takes prednisone 20 mg daily. The patient has done well in her rehabilitation and is advanced to independence for household mobility and for all activities of daily living. The patient's family was here yesterday for fami ly training and they observed the patient performing activities of daily livin g as well as instrumental activities of daily living. The patient was inde pendent with a rollator for functional ambulation and activities of daily living according to occupational therapy yesterday. The patient was educated on f all recovery, fall prevention and using the yard motor operator and safety precautions in physical therapy, This patient has significant shortness of breath on exertion and is also morbidly obese, which require the assist ance of another person to safely leave the house on a daily basis and can be considered homebound even though she is independent in household ambulation and self-car e. The rehabilitation team feels she will benefit from further home health occupational therapy and physical therapy to increase her strength and en durance, and safety in all activities of daily living. In addition, they feel that she will benefit from a visiting nurse and a nurse's aide to assist her with bathing. PATIENT NAME: JORGE ALBERTO JEFFRIESBREA DOWELL The patient will follow up m edically with her local sign builder supervisor and Dr. Ham as directed. Dictated By: Adrian Blankenship MD WT: PN:ZSHAWNA/LYDIA/FRACISCO Conf#: [id number]/DID#: [id number] Authenticated by Adrian Blankenship MD On 03:50:56 PM Electronically Signed by Adrian Blankenship MD on at 1551 PATIENT NAME: JORGE ALBERTO JEFFRIESBREA DOWELL 2019-07-12 20:52:00-00:00 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 Review of Systems Constitutional: Denies: chills, fever, lethargy. Respiratory: Reports: CORTEZ (dyspnea on exertion). Denies: pleu ritic pain. Cardiovascular: Denies: chest pain, palpitations. Objective General VS/I O: Vital Signs: Date Time Temp Pulse Resp B/P B/P Pulse O2 O2 F low FiO2 Mean Ox Delivery Rate 07/12 1956 98.4 67 18 119/69 85.5 93 07/12 1627 98.2 65 18 103/65 77.5 96 Room air 07/12 1013 65 111/74 86.6 07/12 0418 97.9 56 18 136/73 94.2 99 Room air 24 hour I O ending at 0700: 07/12 0700 07/11 1900 Intake Total 480 720 Output Total 0 Balance 480 720 Intake, Oral 480 720 Number 1 Bowel Movements Number Voids 3 3 Output, Stool 0 Patient Weight Weight (lb): 219 Weight (oz): 7.17 Weight (kg): 99.540 Medications: Active Meds + DC'd Last 24 Hrs Metformin HCl 1,000 MG BID MEALS PO Metolazone 2.5 MG MOWEFR PO Sacubitril/Valsartan 1 TAB BID PO Furosemide 40 MG BID 9A 5P PO Spironolactone 50 MG DAILY PO Aspirin 81 MG DAILY PO Pantoprazole 40 MG DAILY PO Prednisone 20 MG DAILY PO Carvedilol 6.25 MG Q12HR PO Duloxetine HCl 60 MG BID PO Insulin Human Lispro MEDIUM DOSE SLIDING SCALE AC HS SUBQ Dextrose/Water 12.5 GM ASDIR PRN IV Dextrose/Water 25 GM ASDIR PRN IV Acetaminophen 650 MG Q6H PRN PRN PO Hydrocodone Bitart/Acetaminophen 1 TAB Q4H PRN P RN PO Melatonin 6 MG BEDTIME PRN PO Bisacodyl 5 MG BID PRN PRN PO Bisacodyl 10 MG DAILY PRN PRN RECTAL Docusate Sodium 100 MG BID PRN PRN PO Magnesium Hydroxide 30 ML DAILY PRN PRN PO Physical Exam General appearance: alert, awake, oriented Head/Eyes: atraumatic, clear cornea ENT: moist mucosal membranes, normal dentition Neck: non-tender Cardiovascular: normal heart sounds, regular rat e rhythm Respiratory: rales Abdomen: non-tender, normal bowel sounds, soft Extremities: edema, moves all Results Findings/Data: Laboratory Tests 07/12 07/12 07/12 1637 1134 0740 Chemistry POC Glucose (60 - 99 MG/DL) 228 H 228 H 129 H Diagnosis, Assessment Plan Free Text DxA P Notes Free Text DxA P Notes: 1. Acute on chronic systolic heart failure with left ventricular ejection fraction of less than 30%, status post AICD plac ement. 2. History of paroxysmal atr ial fibrillation, currently in normal sinus rhythm. 3. Diabetes type 2. 4. Hypertension. 5. Temporal arteritis, currently controlled on p rednisone 20 once daily. 6. Morbid obesity. 7. Rule out for right segmental pulmonary emboli sm 8. Fibromyalgia 07/07/2019 pt diuresing well, feeling and breathing better. Pt c/o nocturia due to late lasix - change metolazone 2.5 mg MWF - Increase aldactone 50 mg daily and change las ix 40 mg 9AM and 5PM - Pt remains in NSR, contin ue to hold anticoagulation for paroxysmal afib until AICD wound healed 07/09- resting comfortably. bruises noted on arms - will continue with current mx. 07/10- walking with the walker without any assist ance - plan for dc home on tuesday -BS high. will increase metformin to 1gm bid -will continue with current mx 07/12- sitting comfortably. - plan dc tomorrow. Quality Medications Current medication review: I attest that the foregoing medication list in t he medical record is true, accurate, and complete to the best of my knowled ge. Advanced Care Plan 65 or Older Discussed with: patient, other Discussion included: code status (full code) Heart Failure:DC on BB,KIKA/ARB LVEF: < 40% Beta rocio Rx at DC: yes; medication: ACEI/ARB Rx at DC: yes; medication: Electronically Signed by Gia Andersen MD on at [address] [facility] #:[id number] END OF REPORT 2019-07-12 11:13:00-00:00 [id number] [address] PATIENT NAME: BREA GILES ADMIT DATE : 07/04/19 ACCOUNT NO: [id number] ROOM NO: Z.[facility] AGE: 73 REPORT TYPE: PROGRESS NOTE SEX: F ADMITTING PHYSICIAN:Adrian Blankenship MD ATTENDING PHYSICIAN:Adrian Blankenship MD DATE: 07/12/2019 Ms. Sandhu is [facility] debility associated with recent exacerbation of chronic c ongestive heart failure with shortness of breath and hypoxia. The patient was seen initially at an outside facility and then referred t o this facility for direct admission on 06/24/2019. 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 She was a candidate for implantation of an AICD, which was performed on 07/02/2019. She was stabi lized and referred to the inpatient rehabilitation unit and admitted on . The patient is doing well in her rehabilitation and will be ready for discharge home tomorrow. Her twin sist er and [id number]-oav are here for family training. The patient has a large social support system i n her neighborhood. She is confident that she can manage at home. She was s een today in her room. She is alert and oriented, in good spirits. Vital signs show temperature of 36.6 degrees centigrade, pulse 56, respirations 18, b lood pressure 136/73 with an oxygen saturation of 99% on room air. Her diabet es is uncontrolled. She is neurologically intact. The patient is presently requiring supervision f or all activities of daily living and is independent in bed mobility, trans fers, and ambulation. Her discharge plan was discussed in detail with the patient, her family, the oncology social work, and the occupational therapist. The virgie ent will continue with her present rehabilitation program at this time and will be discharged home on schedule tomorrow. Dictated By: Adrian Blankenship MD WT: PN:ALCON/LYDIA/FRACISCO Conf#: [id number]/DID#: [id number] Authenticated by Adrian Blankenship MD On 09:40:06 AM Electronically Signed by Adrian Blankenship MD on at 0940 PATIENT NAME: BREA GILES 2019-07-11 15:55:00-00:00 [facility] Hospitalist Progress Note REPORT#:[id number] REPORT STATUS: Signed DATE:07/11/19 TIME: 1555 PATIENT: BREA GILES UNIT #: [id number] ROOM/BED: [address] : 45 AGE: 73 SEX: F ATTEND: Osman Blankenship MD ADM AUTHOR: Gia Andersen MD * ALL edits or amendments must be made on the [employer]/computer document * Subjective Chief Complaint: 73 yoF with 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 Review of Systems Constitutional: Denies: chills, fever, lethargy. Respiratory: Reports: CORTEZ (dyspnea on exertion). Denies: pleu ritic pain. Cardiovascular: Denies: chest pain, palpitations. Objective General VS/I O: Vital Signs: Date Time Temp Pulse Resp B/P B/P Pulse O2 O2 F low FiO2 Mean Ox Delivery Rate 07/11 1249 80 114/60 77.7 07/11 1008 62 109/66 80.4 07/11 917 62 114/44 67.5 95 07/11 0424 57 18 100/59 72.8 95 Room air 07/10 1938 69 119/60 80.0 07/10 1612 98.6 72 17 120/66 83.9 98 Room air Patient Weight Weight (lb): 219 Weight (oz): 7.17 Weight (kg): 99.540 Medications: Active Meds + DC'd Last 24 Hrs Metolazone 2.5 MG MOWEFR PO Sacubitril/Valsartan 1 TAB BID PO Furosemide 40 MG BID 9A 5P PO Spironolactone 50 MG DAILY PO Metformin HCl 500 MG BID MEALS PO Aspirin 81 MG DAILY PO Pantoprazole 40 MG DAILY PO Prednisone 20 MG DAILY PO Carvedilol 6.25 MG Q12HR PO Duloxetine HCl 60 MG BID PO Insulin Human Lispro MEDIUM DOSE SLIDING SCALE AC HS SUBQ Dextrose/Water 12.5 GM ASDIR PRN IV Dextrose/Water 25 GM ASDIR PRN IV Acetaminophen 650 MG Q6H PRN PRN PO Hydrocodone Bitart/Acetaminophen 1 TAB Q4H PRN P RN PO Melatonin 6 MG BEDTIME PRN PO Bisacodyl 5 MG BID PRN PRN PO Bisacodyl 10 MG DAILY PRN PRN RECTAL Docusate Sodium 100 MG BID PRN PRN PO Magnesium Hydroxide 30 ML DAILY PRN PRN PO Physical Exam General appearance: alert, awake, oriented Head/Eyes: atraumatic, clear cornea ENT: moist mucosal membranes, normal dentition Neck: non-tender Cardiovascular: normal heart sounds, regular rat e rhythm Respiratory: rales Abdomen: non-tender, normal bowel sounds, soft Extremities: edema, moves all Results Findings/Data: Laboratory Tests 07/11 07/11 07/10 07/10 1222 0718 2019 1609 Chemistry POC Glucose (60 - 99 MG/DL) 212 H 131 H 247 H 1 82 H Diagnosis, Assessment Plan Free Text DxA P Notes Free Text DxA P Notes: 1. Acute on chronic systolic heart failure with left ventricular ejection fraction of less than 30%, status post AICD plac ement. 2. History of paroxysmal atr ial fibrillation, currently in normal sinus rhythm. 3. Diabetes type 2. 4. Hypertension. 5. Temporal arteritis, currently controlled on p rednisone 20 once daily. 6. Morbid obesity. 7. Rule out for right segmental pulmonary emboli sm 8. Fibromyalgia 07/07/2019 pt diuresing well, feeling and breathing better. Pt c/o nocturia due to late lasix - change metolazone 2.5 mg MWF - Increase aldactone 50 mg daily and change las ix 40 mg 9AM and 5PM - Pt remains in NSR, contin ue to hold anticoagulation for paroxysmal afib until AICD wound healed 07/09- resting comfortably. bruises noted on arms - will continue with current mx. 07/11- walking with the walker without any assist ance - plan for dc home on tuesday -BS high. will increase metformin to 1gm bid -will continue with current mx Quality Medications Current medication review: I attest that the foregoing medication list in t he medical record is true, accurate, and complete to the best of my knowled ge. Advanced Care Plan 65 or Older Discussed with: patient, other Discussion included: code status (full code) Heart Failure:DC on BB,KIKA/ARB LVEF: < 40% Beta rocio Rx at DC: yes; medication: ACEI/ARB Rx at DC: yes; medication: Electronically Signed by Gia Andersen MD on at [address] [facility] #:[id number] END OF REPORT 2019-07-11 13:22:00-00:00 [id number] [place] [address] PATIENT NAME: BREA GILES ADMIT DATE : 07/04/19 ACCOUNT NO: [id number] ROOM NO: Z.[facility] AGE: 73 REPORT TYPE: PROGRESS NOTE SEX: F ADMITTING PHYSICIAN:Adrian Blankenship MD ATTENDING PHYSICIAN:Adrian Blankenship MD DATE: 07/11/2019 Mrs. Jorge Alberto Garcia seen on 07/11/2019 for rehabilitation direction for debility associated with an episode of efmhx-vx-pugawmi c ongestive heart failure, occurring on 06/24/2019. The patient was transfe rred to this hospital from another facility for higher level of care after she was diagnosed with what was thought to be an acute pulmonary embolism, but u maddy reevaluation was not. The patient, however, was in acu te congestive heart failure superimposed on chronic congestive heart failure secondary to a nonische geno cardiomyopathy with an ejection fraction of less than 30%. The patient also has a past history of atrial fibrillation with episodes of an SVT. She has seen several physicians over the years for many different chronic medica l comorbidities including fibromyalgia. The patient presently is alert and oriented, in good spirits. Vital signs are stable and within normal limits. Nursing reports no problems. The patient's blood sugars are not well controlled. She showed no signs or symptoms of distress or discomfort and her incision site to the left upper chest is clean and dry with no signs or sym ptoms of infection. The patient required assistance to the restroom and she was also medicated for p ain. She reported left knee pain. Functionally, the patient jackson s reached supervision now for feeding, grooming and hygiene and upper body dressing while she needs moderate assistance with bathing, lower body dressing and footwear. She i s also independent in all bed mobility, transfers and ambulation. She was obse rved to be ambulating with a 4-wheel rolling walker today with physical therapy with supervision only and it appears that she will be able to do it by hersel f at home on discharge, which will occur on 07/13/2019. This patient will rece shawn home health occupational therapy, physical therapy and speech therapy. No change in the patient's rehabilitation progra m is indicated at this time. Her prognosis is good to ach ieve her functional goals and be able to return home safely with minimal caregiver assistance. She is neurologically intact. Dictated By: Adrian Blankenship MD WT: PN:ALCON/LYDIA/FRACISCO Conf#: [id number]/DID#: [id number] PATIENT NAME: BREA GILES Authenticated by Adrian Blankenship MD On 9 02:50:31 PM Electronically Signed by Adrian Blankenship MD on at 1450 PATIENT NAME: BREA GILES 2019-07-10 11:57:00-00:00 [id number] [place] [address] PATIENT NAME: BREA GILES ADMIT DATE : 07/04/19 ACCOUNT NO: [id number] ROOM NO: Z.527 AGE: 73 REPORT TYPE: PROGRESS NOTE SEX: F ADMITTING PHYSICIAN:Adrian Blankenship MD ATTENDING PHYSICIAN:Adrian Blankenship MD DATE: 07/10/2019 Mrs. Jorge Alberto Garcia is seen on 07/10/2019 for re habilitation direction and initial interdisciplinary team conference to be documented elsewhere for debility associated with an episode of acute-on- chronic congestive heart failure, which occurred on 06/24/2019. She was i iron seen at an outside hospital Emergency Room and then on 06/25/2019, transferred to this hospital for higher level of care. The patient was initially thought to have an acute pulmonary embolism, but on r epeat of her pulmonary CTA, there was no indication of a pulmonary embolus. However, she was found t o have significant congestive heart failure and an AICD was placed by Dr. Deborah beck on 07/02/2019. She has a known nonischemic cardiomyop athy with ejection fraction less than 30%. There is also past history of atrial fibrillation and episodes of NSVT. She has several other chronic medical comorbidities as well. The patient was not functioning at her baseline level and was referred to the inpatient rehabilitation unit and admitt ed on 07/04/2019. The patient has been doing reasonably well and is stable on her medic ations. She is followed medically by the [facility] and by Dr. Ham. Functionally, she is supervi fina for feeding, grooming and hygiene while needing moderate assistance for bathing and supervision for upper body dressing and moderate assist for lower body dressing and foot wear. She was independent in bed mobility yesterday and also was independent with walking 150 feet. Today, she was taken outside by the physical therapist for practice on uneven surfaces. She will be discussed at her initial interdisciplinary team conference today to review her progress, determine her function potel ruano, establish short and long-term rehabilitation objectives, confirm her discharge plan which is to return to her own home and finally to project a definite discharge date. Dictated By: Adrian Blankenship MD WT: PN:ALCON/LDYIA/FRACISCO Conf#: [id number]/DID#: [id number] Authenticated by Adrian Blankenship MD On 9 08:30:14 PM PATIENT NAME: JORGE ALBERTO GARCIATAVIAJEFF Robledo Electronically Signed by Adrian Blankenship MD on at 2030 PATIENT NAME: JORGE ALBERTO GARCIATAVIAJEFF Robledo 2019-07-09 20:56:00-00:00 [facility] ([facility]) Rehab Team Conference REPORT#:[id number] REPORT STATUS: Signed DATE:07/09/19 TIME: 2055 PATIENT: BREA GILES UNIT #: [id number] ROOM/BED: [address] : 45 AGE: 73 SEX: F ATTEND: Osman Blankenship MD ADM AUTHOR: Adrian Blankenship MD * ALL edits or amendments must be made on the [employer]/computer document * Rehabilitation Team Conference Weekly Team Conference Team conf information: Date of conference: 07/10/19 Conference type: Initial Conference scribe: Lilibeth Ibarra OT Interdisciplinary Team Meeting Participants: Title Name MD SAQIB Lim, RN PT Nuha Wright, PT OT Lilibeth Ibarra OT CM/SW Qian Acosta, SAQIB Null, SCIENCE AND OPERATIONS OFFICER Staff Juan J Wells, PT Attendee Name Credentials [address] TOY WISE CLINICAL PSYCHOLOGIST 3 4 5 6 7 Type Admission total Interim total Change Self care 24 26 2 Transfer 23 33 10 Mobility 16 26 10 Wheelchair distance: Mobility description: uneven surface W/sitting rest breaks to decrease fatigue and SOB Bowel continence admission rating: Always continent Bladder continence admission rating: Always continent Bowel and bladder team conference update: KATHERINE team conference update: PT. AAOX4. COMPLAINS OF PAIN TO VASQUEZ. KNEES, ON N ORCO MEDICATION. LT. CHEST INCISION SITE INTACT AND DRY OPEN TO AIR, NO SIG NS OF INFECTION NOTED. PT. CONTINENT OF BOWEL AND BLADDER. PT team conference update: Pt showing improvement W/tra nsfers and mobility. Pt currently required SBA W/bed mobility and sit to stand W/ rollator. Requires periodic VC for rollator safety. Completes gait W/rollator SBA both inside and ou tside but limited on distance and gait tolerance. Pt will benefit from continued intensive inpatient physical therapy services to improve gait and activity to lerance for functional independence. STG: Pt will complete gait W/rollator SBA 500ft W/O sitting rest STG: Pt will perform all personal care independe ntly OT team conference update: CURRENT ADL PERFORMANCE: FEEDING: SETUP ORAL CAR E: SPV BATHING: MOD A UB DRESSING: SPV LB DRESSING: MOD A FOOTWEAR: MOD A STG'S: FEEDING: INDEPENDENT ORAL CARE: SETUP BATHING: SP V UB DRESSING: SETUP LB DRESSING: SPV FOOTWEAR: SPV EQUIPMENT RECOMMENDED: GRAB BAR BY TOILE T PT. IS MAKING STEAY PROGRESS TOWARDS POC SINCE ADMIT. ST team conference update: CM or SW team conference update: Other discipline update 1: Other discipline update 2: Other discipline update 3: Patient's identified discharge goal: 1. PATIENT WOULD BE ABLE TO GO BACK TO H ER PRIOR FUNCTION BEFORE COMING TO THE HOSPITAL. 2. BE ABLE TO MAIN TAIN CONTINENT WITH BOWEL AND BLADDER. 3. To be able to return to doing things she was able t o be doing before and maybe even more. -PT: "TO IMPROVE MY ACTIVITY TOLERANCE AND STREN GTH" Eating discharge goal: Independent (6) Shower/bathe self discharge goal: Independent ( 6) Upper body dressing discharge goal: Independent (6) Lower body dressing discharge goal: Independent (6) Chair/bed to chair transfer discharge goal: Ind ependent (6) Transfer on/off toilet or commode discharge goa l: Setup/clean-up only (5) Walking 50 feet with two turns discharge goal: Independent (6) Walking 150 feet discharge goal: Independent (6 ) Four steps discharge goal: Supervise/touch asst (4) Twelve steps discharge goal: Med cond/safety co ncern [place] 150 feet discharge goal: Not applicabl e Eating discharge goal: Independent (6) Shower/bathe self discharge goal: Independent (6) Upper body dressing discharge goal: Independent (6) Lower body dressing discharge goal: Independent (6) Chair/bed to chair transfer discharge goal: Independent (6) Transfer on/off toilet or commode discharge goal : Setup/clean-up only (5) Walking 50 feet with two turns discharge goal: Independent (6) Walking 150 feet discharge goal: Independent (6) 4 steps discharge goal: Supervise/touch asst (4) 12 steps discharge goal: Med cond/safety concern [place] 150 feet discharge goal: Not applicable Goal 1 - Bowel function: WILL REMAIN CONTINENT OF BOWEL UNTIL DISCHARGE Goal 2 - Bladder function: WILL REAMIN CONTINENT OF BLADDER UNTIL DISCHARGE . Nursing goal 3: BE ABLE TO PARTICIPATE WITH PT/OT/ACTIVITIES TO INCREASE STAMINA AND IMPROVE MOBILITY, Nursing goal 4: BE ABLE TO CONTROL BLOOD PRESSURE AND BLOOD SUGA R WITHIN NORMAL PARAMETER. Nursing goal 5: FREE FROM FALLS AND ANY INJURY DURING REHAB STAY . Barriers and strategies: S.T. barriers/strategies: Pt may require repetit ion of lengthy or detailed information or presentation in written 07/10/19 NURSING BARRIERS AND STRATEGIES: 1.HIGH BLOOD RESSURE MAINTAIN BP WNL, MONITOR V/ S AND GIVE BP MEDICATIONS ORDERED. 2. PREVENTION OF IN FECTION TO INCISION SITE OF AICD PLACEMENT. MAINTIAN THE ORDERED WOUND CARE ORDER OR PROTOCOL. CHECK FOR ANY SIGNS OF INFECTION REDNESS, SWELLING, FOUL ODOR OF DRAINAGE, REPORT TO THE DOCTOR FOR SIGNS OF INFECTIONS NOTED. 3. FALL RISK SAFEGUARD FROM FA LL BY SAFETY ROUNDING, SIDE RAILS UPX3, CALL BUTTON WITHIN REACH, SE T BED ALRM ON, SET BED TO LOW POSITION AND APPLY NON SKID FOOT WEAR S. 4. PAIN MEDICATE WITH PAIN MEDICATIONS SCHEDULED OR ORDERED TO ALLEVIATE THE OR PREVENT THE SE SANTIAGO PAIN FEELING OF PAIN IN ORDER TO PARTICIPATE ON THE DAILY THERAPY. form for recall - PT Barriers (): Pulmonary embolism, S/P AICD, decreased mobility, gait, activity tolerance, SOB. PT Stratagies: transfer training , gait, endurance activity, breathing exercises, strengt hening. 07/09/19: OT BARRIERS: DECREASED ADL SKILLS, DECREASED BALANCE, DECREASED MOBILITY, D ECREASED ACTIVITY TOLERANCE, DECREASED ENDURANCE AND MANAGE PAIN. OT STRATEGIES: ADL LI GHT IADL RE-TRAINING TO IMPROVE INDEPENDENCE AND HOME SAFETY, UB THERAPE UTIC EXERCISE TO IMPROVE STRENGTH, ACTIVITY TOLERANCE , BALANCE AND MOBILITY, EDEMA MANAGEMENT TO DECREASE PAIN AND SWELLING, EDUCATION ON HEP, ENERGY CONS ERVATION, FALL PREVENTION AND CAREGIVER EDUCATION. Estimated length of stay in days: 9 Anticipated discharge date: 07/13/19 Discharge date adjustment comment: Identified financial and/or community resource n eeds: - Family/Caregiver training days: [place] day (DATE): 07/12/19 Expected discharge destination: Home Anticipated services upon discharge: Outpatient, Occupational therapy, Physical thera py Anticipated discharge equipment: GRAB BARS, Gait belt, Rollator Impairment group: debility Etiologic diagnosis: ACUTE ON CHRONIC CONGESTIVE HEART FAILURE Review of comorbidities: HAS DIABETES, HYPERTENSION, STAGE 3 CHRONIC KIDN EY DISEASE, OSTEOARTHRITIS, MORBID OBESITY, OBSTRUCTIVE SLEEP APNEA, AND TEM PORAL ARTERITIS. Review/Recommendations Attestation: This interdisciplinary team conference was led kiki chacon and I concur with all decisions made during the team conference and re visions to the individualized overall plan of care. IRF cont stay criteria IN SPITE OF MULTIPLE MEDICAL COMORBIDITIES SHE HAS THE POSTENTIAL TO MAKE GAINS IN MOB AND ADL AND RETURN TO HER PREMORBID LIVIN G SITUATION IN A FEW DAYS. 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 Pt breathing easier, feeling stronger, diuresing well. Review of Systems Constitutional: Denies: chills, fever, lethargy. Respiratory: Reports: CORTEZ (dyspnea on exertion). Denies: pleu ritic pain. Cardiovascular: Denies: chest pain, palpitations. Objective General VS/I O: Vital Signs: Date Time Temp Pulse Resp B/P B/P Pulse O2 O2 Flow FiO2 Mean Ox Delivery Rate 07/09 1457 97.5 62 16 105/67 79.5 94 07/09 0920 55 07/09 828 42 122/63 82.6 07/09 433 97.9 52 18 144/80 101.6 96 Room air 07/08 2001 68 124/61 82.0 24 hour I O ending at 0700: 07/09 0707/08 1900 Intake Total 400 720 Output Total Balance 400 720 Intake, Oral 400 720 Number 0 Bowel Movements Number Voids 3 Patient 99.54 kg Weight Weight Bed scale Measurement Method Patient Weight Weight (lb): 219 Weight (oz): 7.17 Weight (kg): 99.540 Medications: Active Meds + DC'd Last 24 Hrs Metolazone 2.5 MG MOWEFR PO Sacubitril/Valsartan 1 TAB BID PO Furosemide 40 MG BID 9A 5P PO Spironolactone 50 MG DAILY PO Metformin HCl 500 MG BID MEALS PO Aspirin 81 MG DAILY PO Pantoprazole 40 MG DAILY PO Prednisone 20 MG DAILY PO Sacubitril/Valsartan 1 TAB DAILY PO (DC) Carvedilol 6.25 MG Q12HR PO Duloxetine HCl 60 MG BID PO Insulin Human Lispro MEDIUM DOSE SLIDING SCALE AC HS SUBQ Dextrose/Water 12.5 GM ASDIR PRN IV Dextrose/Water 25 GM ASDIR PRN IV Acetaminophen 650 MG Q6H PRN PRN PO Hydrocodone Bitart/Acetaminophen 1 TAB Q4H PRN P RN PO Melatonin 6 MG BEDTIME PRN PO Bisacodyl 5 MG BID PRN PRN PO Bisacodyl 10 MG DAILY PRN PRN RECTAL Docusate Sodium 100 MG BID PRN PRN PO Magnesium Hydroxide 30 ML DAILY PRN PRN PO Physical Exam General appearance: alert Head/Eyes: atraumatic, clear cornea ENT: moist mucosal membranes, normal dentition Neck: non-tender Cardiovascular: normal heart sounds, regular rat e rhythm Respiratory: rales Abdomen: non-tender, normal bowel sounds, soft Extremities: edema, moves all Results Findings/Data: Laboratory Tests 07/09 07/09 07/09 07/08 1615 1110 0703 2010 Chemistry POC Glucose (60 - 99 MG/DL) 200 H 180 H 146 H 2 14 H Diagnosis, Assessment Plan Free Text DxA P Notes Free Text DxA P Notes: 1. Acute on chronic systolic heart failure with left ventricular ejection fraction of less than 30%, status post AICD plac ement. 2. History of paroxysmal atr ial fibrillation, currently in normal sinus rhythm. 3. Diabetes type 2. 4. Hypertension. 5. Temporal arteritis, currently controlled on p rednisone 20 once daily. 6. Morbid obesity. 7. Rule out for right segmental pulmonary emboli sm 8. Fibromyalgia 07/07/2019 pt diuresing well, feeling and breathing better. Pt c/o nocturia due to late lasix - change metolazone 2.5 mg MWF - Increase aldactone 50 mg daily and change las ix 40 mg 9AM and 5PM - Pt remains in NSR, contin ue to hold anticoagulation for paroxysmal afib until AICD wound healed 07/09- resting comfortably. bruises noted on arms - will continue with current mx. Quality Medications Current medication review: I attest that the foregoing medication list in t he medical record is true, accurate, and complete to the best of my knowled ge. Advanced Care Plan 65 or Older Discussed with: patient, other Discussion included: code status (full code) Heart Failure:DC on BB,KIKA/ARB LVEF: < 40% Beta rocio Rx at DC: yes; medication: ACEI/ARB Rx at DC: yes; medication: Electronically Signed by Gia Andersen MD on at 1122 RPT #:[id number] END OF REPORT 2019-07-09 11:55:00-00:00 [id number] [place] [address] PATIENT NAME: BREA GILES ADMIT DATE : 07/04/19 ACCOUNT NO: [id number] ROOM NO: Z.527 AGE: 73 REPORT TYPE: PROGRESS NOTE SEX: F ADMITTING PHYSICIAN:Adrian Blankenship MD ATTENDING PHYSICIAN:Adrian Blankenship MD DATE: 07/09/2019 SUBJECTIVE: Mrs. Jorge Alberto Garcia is seen on 07/09 for rehabilitation direction for debility associated with a recent exacerbation of chronic congestive heart failure resulting in pr ogressive shortness of breath. She has a nonischemic cardiomyopathy with systolic dysfunction and her ejection fraction was less than 30%. She also has a past history o f atrial fibrillation and episodes of NSVT. The patient has severa l other chronic medical comorbidities, which impact upon her mobility and self-care cap ability. The patient has been on inpatient rehabilitation now since 07/04/2019, and during that time, she has managed 180 or more minutes each day of both occupational therapy and physical therapy. She is tolerating her rehabilit ation well and making good progress in mobility and self-care. OBJECTIVE: Her vital signs t jossy are temperature 36.6 degrees centigrade, pulse 52, respirations 18, blood pressure 144/ 80 with an oxygen saturation of 96% on room air. She has had significant bradycardia in termittently. Later this morning at 0828 hours, her heart rate was down a bit, 42. She has had other heart rates in the 40s and 50s. The patient does have an AICD, which was recentl y implanted by Dr. Alexandr Ham here. The patient's d iabetes is uncontrolled on a regular insulin medium dose sliding scale a.c. and at bedtime, metformin 500 mg b.i.d., and a diabetic diet. The patient is also on prednisone 20 mg daily for suppression of symptoms from chronic temporal arteritis. ASSESSMENT AND PLAN: The patient was seen today in the rehabilitation gym working on the upper and lower body exercise [facility] [place]. She is in good spirits, although when speaking about her late rylee thomason just recently while in the hospital, she became henry te tearful, but recovered well and continued on with her treatment. No change in her rehabilitation p declan is indicated at this time. She is presently scheduled for her initial interdisciplinary team conference tomorrow; at [facility] time, her functional potential will be determined, short and long-term rehabilitation objectives es tablished, discharge plan confirmed, and a discharge date projected. Dictated By: Adrian Blankenship MD WT: PN:ZSHAWNA/LYDIA/FRACISCO Conf#: [id number]/DID#: [id number] PATIENT NAME: FREDIQRABREA CRANDALL Authenticated by Adrian Blankenship MD On 09:16:50 PM Electronically Signed by Adrian Blankenship MD on at 2117 PATIENT NAME: FREDCAMILA BREA GARCIA 2019-07-09 07:33:00-00:00 [facility] ([facility] Cardiology Progress Note REPORT#:[id number] REPORT STATUS: Signed DATE:07/09/19 TIME: 732 PATIENT: FREDIQRABREA CRANDALL UNIT #: [id number] ROOM/BED: [facility] : 45 AGE: 73 SEX: F ATTEND: Osman Blankenship MD ADM AUTHOR: Alexandr Ham MD * ALL edits or amendments must be made on the [employer]/computer document * Subjective Patient reports: No: chest pain, palpitations, shortness of breat h. Objective General VS/I O: 24 hour I O ending at 0700: 07/09 0700 07/08 1900 Intake Total 400 720 Output Total Balance 400 720 Intake, Oral 400 720 Number 0 Bowel Movements Number Voids 3 Patient 99.54 kg Weight Weight Bed scale Measurement Method Vital Signs: Date Time Temp Pulse Resp B/P B/P Pulse O2 O2 F low FiO2 Mean Ox Delivery Rate 07/09 0433 97.9 52 18 144/80 101.6 96 Room air 07/08 2001 68 124/61 82.0 07/08 1545 98.2 63 18 114/75 88.2 95 Room air 07/08 0940 54 160/67 98.1 Patient Weight Weight (lb): 219 Weight (oz): 7.17 Weight (kg): 99.540 Medications: Active Meds + DC'd Last 24 Hrs Metolazone 2.5 MG MOWEFR PO Furosemide 40 MG BID 9A 5P PO Spironolactone 50 MG DAILY PO Cephalexin 500 MG Q8HR PO (DC) Metformin HCl 500 MG BID MEALS PO Aspirin 81 MG DAILY PO Pantoprazole 40 MG DAILY PO Prednisone 20 MG DAILY PO Sacubitril/Valsartan 1 TAB DAILY PO Carvedilol 6.25 MG Q12HR PO Duloxetine HCl 60 MG BID PO Insulin Human Lispro MEDIUM DOSE SLIDING SCALE AC HS SUBQ Dextrose/Water 12.5 GM ASDIR PRN IV Dextrose/Water 25 GM ASDIR PRN IV Acetaminophen 650 MG Q6H PRN PRN PO Hydrocodone Bitart/Acetaminophen 1 TAB Q4H PRN P RN PO Melatonin 6 MG BEDTIME PRN PO Bisacodyl 5 MG BID PRN PRN PO Bisacodyl 10 MG DAILY PRN PRN RECTAL Docusate Sodium 100 MG BID PRN PRN PO Magnesium Hydroxide 30 ML DAILY PRN PRN PO Physical Exam General appearance: alert, awake, oriented Head/Eyes: atraumatic, normocephalic ENT: moist mucosal membranes Neck: no JVD Cardiovascular: CV assessment: regular rate and rhythm Respiratory: clear to auscultation, no distress Lower extremity: LE assessment: no edema Musculoskeletal: full range of motion Neuro/DYE BLENDER: alert, oriented X 3, CN II-XII intact Skin: dry, intact Wound/incision: Site condition: dressing clean dry Psychiatry: normal affect, normal judgment/insig ht, normal mood Results Findings/Data: Laboratory Tests 07/09 1652 1158 Chemistry POC Glucose (60 - 99 MG/DL) 146 H 214 H 236 H 1 61 H Diagnosis, Assessment Plan Free Text DxA P Notes Free Text DxA P Notes: IMP: Chronic systolic heart failure SSS s/p [facility] AICD PLAN: Continue current medical rx. Rehab at 0737 RPT #:[id number] END OF REPORT 2019-07-07 23:47:00-00:00 [facility] ([facility]) Hospitalist Progress Note REPORT#:[id number] REPORT STATUS: Signed DATE:07/07/19 TIME: 2346 PATIENT: BREA GILES UNIT #: [id number] ROOM/BED: [address] : 45 AGE: 73 SEX: F ATTEND: Jay Blankenship MD ADM AUTHOR: Dexter Beard MD * ALL edits or amendments must be made on the [employer]/computer document * Subjective Chief Complaint: 73 yoF with 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 Pt breathing easier, feeling stronger, diuresing well. Review of Systems Constitutional: Denies: chills, fever, lethargy. Respiratory: Reports: CORTEZ (dyspnea on exertion). Denies: pleu ritic pain. Cardiovascular: Denies: chest pain, palpitations. Objective General VS/I O: Vital Signs: Date Time Temp Pulse Resp B/P B/P Pulse O2 O2 F low FiO2 Mean Ox Delivery Rate 07/07 2000 66 102/67 78.5 07/07 1545 98.6 74 18 127/80 95.9 98 Room air 07/07 0900 51 148/52 84.2 07/07 0426 98.2 66 18 121/74 89.7 95 24 hour I O ending at 0700: 07/07 0700 07/06 1900 Intake Total 120 Output Total 0 Balance 120 Intake, Oral 120 Number 0 Bowel Movements Number Voids 2 Output, Stool 0 Patient Weight Weight (lb): 222 Weight (oz): Weight (kg): 100.697 Medications: Active Meds + DC'd Last 24 Hrs Metolazone 2.5 MG MOWEFR PO Furosemide 40 MG BID 9A 5P PO (UNVr) Spironolactone 50 MG DAILY PO (UNV) Metformin HCl 500 MG BID MEALS PO Cephalexin 500 MG Q8H PO Aspirin 81 MG DAILY PO Metolazone 2.5 MG DAILY PO (DC) Pantoprazole 40 MG DAILY PO Potassium Chloride 20 MEQ DAILY PO (DC) Prednisone 20 MG DAILY PO Sacubitril/Valsartan 1 TAB DAILY PO Spironolactone 25 MG DAILY PO (DCr) Carvedilol 6.25 MG Q12HR PO Duloxetine HCl 60 MG BID PO Furosemide 40 MG BID PO (DCr) Insulin Human Lispro MEDIUM DOSE SLIDING SCALE AC HS SUBQ Dextrose/Water 12.5 GM ASDIR PRN IV Dextrose/Water 25 GM ASDIR PRN IV Acetaminophen 650 MG Q6H PRN PRN PO Hydrocodone Bitart/Acetaminophen 1 TAB Q4H PRN P RN PO Melatonin 6 MG BEDTIME PRN PO Bisacodyl 5 MG BID PRN PRN PO Bisacodyl 10 MG DAILY PRN PRN RECTAL Docusate Sodium 100 MG BID PRN PRN PO Magnesium Hydroxide 30 ML DAILY PRN PRN PO Physical Exam General appearance: obese, alert, awake Head/Eyes: atraumatic, clear cornea ENT: moist mucosal membranes, normal dentition Neck: non-tender Cardiovascular: normal heart sounds, regular rat e rhythm Respiratory: rales Abdomen: non-tender, normal bowel sounds, soft Extremities: edema, moves all Results Findings/Data: Laboratory Tests 07/07 07/07 07/07 07/07 1700 1139 0701 0136 Chemistry POC Glucose (60 - 99 MG/DL) 245 H 131 H 134 H 1 49 H Diagnosis, Assessment Plan Free Text DxA P Notes Free Text DxA P Notes: 1. Acute on chronic systolic heart failure with left ventricular ejection fraction of less than 30%, status post AICD plac ement. 2. History of paroxysmal atr ial fibrillation, currently in normal sinus rhythm. 3. Diabetes type 2. 4. Hypertension. 5. Temporal arteritis, currently controlled on p rednisone 20 once daily. 6. Morbid obesity. 7. Rule out for right segmental pulmonary emboli sm 8. Fibromyalgia 07/07/2019 pt diuresing well, feeling and breathing better. Pt c/o nocturia due to late lasix - change metolazone 2.5 mg MWF - Increase aldactone 50 mg daily and change las ix 40 mg 9AM and 5PM - Pt remains in NSR, contin ue to hold anticoagulation for paroxysmal afib until AICD wound healed Quality Medications Current medication review: I attest that the foregoing medication list in t he medical record is true, accurate, and complete to the best of my knowled ge. Advanced Care Plan 65 or Older Discussed with: patient, other Discussion included: code status (full code) Heart Failure:DC on BB,KIKA/ARB LVEF: < 40% Beta rocio Rx at DC: yes; medication: ACEI/ARB Rx at DC: yes; medication: at 2353 RPT #:[id number] END OF REPORT 2019-07-06 11:27:00-00:00 [id number] [place] [address] PATIENT NAME: BREA GILES ADMIT DATE : 07/04/19 ACCOUNT NO: [id number] ROOM NO: Z.527 AGE: 73 REPORT TYPE: PROGRESS NOTE SEX: F ADMITTING PHYSICIAN:Adrian Blankenship MD ATTENDING PHYSICIAN:Adrian Blankenship MD DATE: 07/06/2019 Ms. Jorge Alberto Garcia is seen on 07/06/2019 for walter abilitation direction for debility associated with recent episode of acute congestive heart failure superimposed on chronic congestive heart failure related to nonischemic cardiomyopathy with systolic dysfunction and an ejection fraction of less than 30%. There is also a past history of atr ial fibrillation and episodes of NSVT. In addition, she has chronic kidney disease stage III and several other chronic medical comorbidities, which impact nega tively upon her mobility and self-care capability. The patient is seen today in her room resting after her morning physical therapy session. She is awake, alert, oriented, in good spirits. Speech intelligible and fluent. Thought content reasonable, relevant , and appropriate. Her vital signs are stable. Her heart rate was a bit low a t times down in the 40s, but also coming up to 65 at one point this morning. Her blood pressure fluctuated between 112/73 and 129/58. H er oxygen saturation was stable at 95% on room air. She remains afebrile with a respiratory rate of 18. The patient is followed by Venkat Beard of the [facility] and Dr. Alexandr Ham her consulting sign builder supervisor. The patient had a CBC this morning, which showed a mild leukocytosis of 13.0 with a slightly low hemoglobin of 11.0 and a platelet count that was elevated a t 406. Her white blood cell differential was unremarkabl e and her electrolytes showed just a borderline low sodium of 136 with a low chl oride of 94. Her carbon dioxide was bit elevated at 33 with normal potassium of 4.2. Her indra betes is under poor control with blood sugars fluctuating between 142 and 245 over the past 48 hours. She is on a medium dose sliding scale of regular insulin a.c . and at bedtime as well as metformin 500 mg b.i.d. She is on chronic mainte nance dose of prednisone for her temporal arteritis of 20 mg daily. She recen tly had an AICD placed by Dr. Ham. This patient is functioning at a low bas marcia level for mobility and self-care and will benefit from an intensive inpatient walter abilitation program. She will be discussed at her initial interdiscipl inary team conference on 07/10/2019 to review her progress, determine her function pote ntial, establish short and long-term rehabilitation objectives, con firm her discharge plan, and project a discharge date. Dictated By: Adrian Blankenship MD WT: PN:ZSHAWNA/LYDIA/FRACISCO PATIENT NAME: BREA GILES Conf#: [id number]/DID#: [id number] Authenticated by Adrian Blankenship MD On 11:12:48 AM Electronically Signed by Adrian Blankenship MD on at 1113 PATIENT NAME: BREA GILES 2019-07-06 06:56:00-00:00 [facility] ([facility] Cardiology Progress Note REPORT#:[id number] REPORT STATUS: Signed DATE:07/06/19 TIME: 06 PATIENT: BREA GILES UNIT #: [id number] ROOM/BED: [address] : 45 AGE: 73 SEX: F ATTEND: Osman Blankenship MD ADM AUTHOR: Alexandr Ham MD * ALL edits or amendments must be made on the [employer]/computer document * Subjective Patient reports: No: chest pain, palpitations, shortness of breat h. Objective General VS/I O: 24 hour I O ending at 0700: 07/06 0700 07/05 1900 Intake Total 120 Output Total 0 Balance 120 Intake, Oral 120 Number 1 Bowel Movements Number Voids 3 Output, Stool 0 Patient 100.697 kg Weight Vital Signs: Date Time Temp Pulse Resp B/P B/P Pulse O2 O2 F low FiO2 Mean Ox Delivery Rate 07/06 0600 65 07/06 0355 50 112/73 86.3 07/063 98.6 47 18 129/58 81.5 95 Room air 07/05 1946 72 124/62 82.8 07/05 1540 98.8 64 16 127/64 85.2 93 Room air 07/05 1021 57 07/05 0917 48 121/59 79.7 Patient Weight Weight (lb): 222 Weight (oz): Weight (kg): 100.697 Medications: Active Meds + DC'd Last 24 Hrs Metformin HCl 500 MG BID MEALS PO Cephalexin 500 MG Q8H PO Aspirin 81 MG DAILY PO Metolazone 2.5 MG DAILY PO Pantoprazole 40 MG DAILY PO Potassium Chloride 20 MEQ DAILY PO Prednisone 20 MG DAILY PO Sacubitril/Valsartan 1 TAB DAILY PO Spironolactone 25 MG DAILY PO Cephalexin 500 MG NOW ONE PO (DC) Carvedilol 6.25 MG Q12HR PO Duloxetine HCl 60 MG BID PO Furosemide 40 MG BID PO Insulin Human Lispro MEDIUM DOSE SLIDING SCALE AC HS SUBQ Dextrose/Water 12.5 GM ASDIR PRN IV Dextrose/Water 25 GM ASDIR PRN IV Acetaminophen 650 MG Q6H PRN PRN PO Hydrocodone Bitart/Acetaminophen 1 TAB Q4H PRN P RN PO Melatonin 6 MG BEDTIME PRN PO Bisacodyl 5 MG BID PRN PRN PO Bisacodyl 10 MG DAILY PRN PRN RECTAL Docusate Sodium 100 MG BID PRN PRN PO Magnesium Hydroxide 30 ML DAILY PRN PRN PO Physical Exam General appearance: alert, awake, oriented Head/Eyes: atraumatic, normocephalic ENT: moist mucosal membranes Neck: no JVD Cardiovascular: CV assessment: regular rate and rhythm Respiratory: clear to auscultation, no distress Lower extremity: LE assessment: no edema Musculoskeletal: full range of motion Neuro/DYE BLENDER: alert, oriented X 3, CN II-XII intact Skin: dry, intact Psychiatry: normal affect, normal judgment/insig ht, normal mood Results Findings/Data: Laboratory Tests 07/06 07/05 07/05 07/05 0458 1950 1611 1113 Chemistry Sodium (137 - 145 MMOL/L) 136 L Potassium (3.5 - 5.1 MMOL/L) 4.2 Chloride (98 - 107 MMOL/L) 94 L Carbon Dioxide (22 - 30 MMOL/L) 33 H Anion Gap (14 - 24 MMOL/L) 13 L BUN (7 - 17 MG/DL) 26 H Creatinine (0.52 - 1.04 MG/DL) 1.00 Glomerular Filtr Rate 54 Glucose (74 - 106 MG/DL) 146 H POC Glucose (60 - 99 MG/DL) 184 H 245 H 204 H Calcium (8.4 - 10.2 MG/DL) 10.2 Magnesium (1.6 - 2.3 MG/DL) 1.9 Total Bilirubin (0.2 - 1.3 MG/DL) 0.5 AST (14 - 36 UNITS/L) 16 ALT (9 - 52 UNITS/L) 17 Total Alk Phosphatase (38 - 126 UNITS/L) 89 Total Protein (6.3 - 8.2 G/DL) 6.7 Albumin (3.5 - 5.0 G/DL) 3.8 Laboratory Tests 07/06 045 Hematology WBC (3.8 - 9.8 K/MM3) 13.0 H RBC (3.58 - 4.97 M/MM3) 4.54 Hgb (11.2 - 14.9 G/DL) 11.0 L Hct (33.2 - 43.5 %) 36.9 MCV (80.7 - 99.1 fL) 81 MCH (27.0 - 34.1 pg) 24.2 L MCHC (32.2 - 35.7 %) 29.8 L RDW (12.1 - 15.2 %) 16.2 H Plt Count (129 - 368 K/MM3) 406 H MPV (7.4 - 10.4 fl) 10.6 H Neut % (Auto) (43 - 75 %) 70.3 Lymph % (Auto) (14 - 44 %) 17.4 Baca % (Auto) (4 - 13 %) 8.1 Eos % (Auto) (0 - 6 %) 2.7 Baso % (Auto) (0 - 2 %) 0.7 Neut # (Auto) (2.0 - 7.6 K/mm3) 9.17 H Lymph # (Auto) (1.0 - 3.8 K/mm3) 2.27 Baca # (Auto) (0.1 - 0.8 K/mm3) 1.05 H Eos # (Auto) (0.0 - 0.2 K/mm3) 0.35 H Baso # (Auto) (0.0 - 0.2 K/mm3) 0.09 Immature Gran % (0.0 - 2.0 %) 0.8 Nucleated RBC % (0 - 1.0 %) 0.0 Nucleated RBCs # (Man) (0.0 - 0.1 K/mm3) 0.00 Laboratory Tests 07/06 458 Chemistry Magnesium (1.6 - 2.3 MG/DL) 1.9 Diagnosis, Assessment Plan Free Text DxA P Notes Free Text DxA P Notes: IMP: Chronic systolic heart failure SSS s/p [facility] AICD PLAN: Continue current medical rx. Rehab at 0715 RPT #:[id number] END OF REPORT 2019-07-05 21:18:00-00:00 [id number] [place] [address] PATIENT NAME: BREA GILES ADMIT DATE : 07/04/19 ACCOUNT NO: [id number] [facility]GE[facility] 73 REPORT TYPE: CONSULTATION REPORT SEX: F ADMITTING PHYSICIAN:Adrian Blankenship MD ATTENDING PHYSICIAN:Adrian Blankenship MD CONSULTATION DATE: CONSULTING PHYSICIAN: Dexter Beard MD PHYSICIAN REQUESTING CONSULT: Dr. Adrian Blankenship. REASON FOR CONSULTATION: Medical management of t he patient in cardiopulmonary rehabilitation. HISTORY OF PRESENT ILLNESS: A 73-year-old female, obese, with history of diabetes, hypertension, and temporal arteritis, who was originally admitted to medicine service after she complained of wors ening shortness of breath and decreased exercise tolerance. The patient is not ed to have acute on chronic severe diastolic heart failure with LVEF of appr oximately 30%. At time of presentation, the patient also noted to be in atrial fibrillation with RVR and then subsequently developed nonsustained ventric ular tachycardia. The patient was treated on the medicine service with diuretics and was a candidate for AICD placement. The patient clinically improved and c urrently in inpatient rehabilitation for comprehensive rehabilitation with cardiopulmonary rehab in mind. Medicine consult was requested to continue medical management. Currently, the patient appeared to be feeling mu ch better, breathing more comfortably, but still has significant bilateral lower legs edema. Her atrial fibrillation has converted to normal sinus rhyth m and currently has been well controlled with medication. In [place], the patient was also diagnosed with right segmental PE, but the CT angiogram was don e suboptimally. Repeat CT angiogram done a few days ago reveals no evidenc e of PE. Thus, the patient's anticoagulation has been held since afte r AICD placement due to increased risk of bleeding. PAST MEDICAL HISTORY: Again, significant for history of diabetes, hypertension, temporal arteritis, history of severe chronic systolic heart failure status post AICD placement, history of paroxysmal atrial fib rillation currently in normal sinus rhythm. CURRENT MEDICATIONS: The patient is curr ently taking Entresto 24/25 one tablet daily, metformin 500 b.i.d., metolazone 2.5 mg d aily, aspirin 81 daily, spironolactone 25 once daily, Lasix 40 twice mary kate ly, prednisone 20 daily, carvedilol 6.25 mg twice mary kate ly, Cymbalta 60 b.i.d. Please see list for complete list. ALLERGIES: NONE. PATIENT NAME: BREA GILES SOCIAL HISTORY: The patient just recently widowe d. Her just of complication from prostate cancer while she was hospitalized. The patient is a nonsmoker and nondrinker. She currently has a st epdaughter from her late 's marriage. FAMILY HISTORY: The patient denies any premature coronary artery disease. The patient's younger sister has severe rheumatoid a rthritis. REVIEW OF SYSTEMS: The patient reports f ew-pound weight loss over the last few days due to aggressive diuresis. Otherwise, destin es any dysfunctional uterine hemorrhage. No headache. No visual change. Dyspn ea with exertion as reported above. Chronic lower extremity edema as found on admission. Rest of the systems reviewed and negative. PHYSICAL EXAMINATION: GENERAL: The patient is a pleasant fem gabriel, obese, but no acute respiratory distress. VITAL SIGNS: Temperature 98.8, pulse 72, respira tions 16, blood pressure 124/62, oxygenating 93% on 2 L nasal cannula. HEENT: Pupils are equal and reactive. No scleral icterus. Oral mucous membrane moist. Face is grossly symmetric. NECK: Supple, no palpable mass, no jugular venou s distention noted. LUNGS: Good air entry bilaterally with bibasilar rales. No wheezing appreciated. HEART: Regular rate. No murmur. No carotid bruit appreciated. ABDOMEN: Obese, soft, nontender. No palpable mas s. Good bowel sounds. EXTREMITIES: A 3+ pitting edema to the knees vasquez aterally. No open lesion or blister. LABORATORY DATA AND DIAGNOSTIC STUDIES: CBC show s WBC of 10, H and H of 10.9 and 38, MCV 85, and platelets of 346. Chemistry shows sodium 135. Rest of electrolytes are grossly within the normal range . Random glucose 166. BUN and creatinine 18 and 0.8. Liver profile karen ws a total bilirubin of 0.6. AST, ALT, 68 and 66, alkaline phosphatase is 137. Chest x- ray done 3 days ago shows status post AICD placement with moderate cardiom egaly and moderate central pulmonary vascular congestion. CT angiogram of t he chest shows no central pulmonary artery embolism. There is nonspecific mild ground glass opacity within the mid and upper lungs. This may be a re sult of edema. There is minimal pleural effusion. ASSESSMENT AND PLAN: A 73-year-old female, obese , with history of diabetes, hypertension, recently treated for acute on alliances consultant rosendo severe systolic heart failure with paroxysmal atrial fibrillation, not ed to have nonsustained ventricular tachycardia, status post AIC D placement. Currently, the patient is in inpatient rehabilitation for cardiopulmonary rehabilitation. Medicine consult is requested to continue medical managem ent. 1. Acute on chronic systolic heart failure with left ventricular ejection fraction of less than 30%, status post AICD plac ement. 2. History of paroxysmal atr ial fibrillation, currently in normal sinus rhythm. 3. Diabetes type 2. 4. Hypertension. 5. Temporal arteritis, currently controlled on p rednisone 20 once daily. 6. Morbid obesity. 7. Rule out for right segmental pulmonary emboli sm. The patient was initially PATIENT NAME: BREA GILES Venkat diagnosed with right segment al pulmonary embolism, but CT angiogram od chest was suboptimal, but repeat study done few days ago s hows no evidence of pulmonary embolism. PLAN: Continue aggressive diuresis with spironolactone, metolazone, and Lasix. We will monitor renal function and adjus t doses accordingly. Continue Entresto as well as beta rocio, statin, aspirin to optimize CHF treatment. DVT and GI prophylaxis initiated. We wi ll consider starting the patient on anticoagulation once AICD wound is stabilized when cardiology cl eared for starting anticoagulation for probable history of paroxysmal atrial fibrillation. We will continue to follow the patient with you. Thank you very much for allowing me to participa te in this patient's care. Dictated By: Dexter Beard MD WT: CON:ALCON/MARIA ELENA.12/NTS Conf#: [id number]/DID#: [id number] Authenticated by Dexter Beard MD On 9 09:44:43 AM at 0945 PATIENT NAME: BREA GILES 2019-07-05 20:52:00-00:00 [facility] ([facility]) Adult General Consultation REPORT#:[id number] REPORT STATUS: Signed DATE:07/05/19 TIME: 2051 PATIENT: BREA GILES UNIT #: [id number] ROOM/BED: [address] : 45 AGE: 73 SEX: F ATTEND: Osman Blankenship MD ADM AUTHOR: Dexter Beard MD * ALL edits or amendments must be made on the bakari Nuve/computer document * History of Present Illness Requesting Clinician: Adrian Blankenship Reason for consult: Medical Management HPI: Full medicine consult dictated # [id number] History - Adult longitudinal Past medical history: Reports: Arthritis, Asthma, Congestive heart chance lure, Cardiac dysrhythmias, Chronic pain. Additional medical history: FMR. KAMALA. TEMPORAL ARTERITIS. CHF. BORDERLINE DM. INTRACRANIAL TUMOR for which she's being follow ed at [facility], and she was told it's benign. NO H/O CAD; cardiac cath was negative. BURSITIS OF THE KNEE. Past surgical history: Reports: Cholecystectomy, Hernia repair, Hystere ctomy. Additional surgical history: Right total knee replacement. Additional family history: Father of lung cancer. Mother of colon cancer. Son of Crohn's disease at age 41. Identical twin has CAD. One sister has some rare arthritis, and DM. Alcohol use: Denies EtOH use Drug use: Denies recreational drugs Smoking status for patients 13 years old or olde r: Never Smoker Other social history: Retired, Good social suppo rt Allergies: Coded Allergies: No Known Allergies (06/25/19) Objective VS/I O: Last Documented: Result Date Time B/P 124/62 07/05 1946 B/P Mean 82.8 07/05 1946 Pulse 72 07/05 1946 Pulse Ox 93 07/05 154 O2 Delivery Room air 07/05 154 Temp 98.8 07/05 154 Resp 16 07/05 1540 24 hour I O ending at 0700: 07/05 0700 07/04 1900 Intake Total 350 Output Total Balance 350 Intake, Oral 350 Number Voids 3 Patient 100.698 kg Weight Patient Weight Weight (lb): 222 Weight (oz): Weight (kg): 100.697 General appearance: obese, pleasant, mental stat us normal Head/Eyes: atraumatic, clear cornea, normal conj unctiva/sclera ENT: normal dentition Neck: non-tender, no JVD Cardiovascular: regular rate rhythm, normal hear t sounds Respiratory: rales, aerating well, no distress Abdomen: soft, non-tender, no distention, no mas s/organomegaly Extremities: pitting edema, moves all Results Findings/Data: Laboratory Tests: 07/05 07/05 07/05 07/05 1950 1611 1113 0648 Chemistry POC Glucose (60 - 99 MG/DL) 184 H 245 H 204 H 1 51 H Quality Medications Current medication review: I attest that the foregoing medication list in t medical record is true, accurate, and complete to the best of my knowled ge. Advanced Care Plan 65 or Older Discussed with: patient, other Discussion included: code status (full code) Heart Failure:DC on BB,KIKA/ARB LVEF: < 40% Beta rocio Rx at DC: yes; medication: ACEI/ARB Rx at DC: yes; medication: at [address] [facility] #:[id number] END OF REPORT 2019-07-05 11:26:00-00:00 [id number] [place] [address] PATIENT NAME: BREA GILES ADMIT DATE : 07/04/19 ACCOUNT NO: [id number] ROOM NO: Z.524 AGE: 73 REPORT TYPE: PROGRESS NOTE SEX: F ADMITTING PHYSICIAN:Adrian Blankenship MD ATTENDING PHYSICIAN:Adrian Blankenship MD DATE: 07/05/2019 Mrs. Jorge Alberto Garcia is seen on 07/05/2019 for re habilitation direction for debility following an episode of vvkbv-ai-roovhr c congestive heart failure, compounded by multiple chronic medical comorbidi ties. This patient had presented to an outside [facility] facility because of progressively worsening shortness of breath. She was diagnosed with an acute pulmonary embolism as well as pulmonary edema and pulmonary infiltrates on chest CT. On 06/25/2019, she was transferred to this hospital for a higher le cedric of care. She was on enoxaparin 1 mg/kg subcutaneously and e was receiving diltiazem infusion for tachycardia. The patient was admitted to the int ensive care unit at this hospital and the patient was weaned off the dilt iazem and given intravenous Lopressor to control her elevated heart rate. The patient was eventually moved to telemetry and her home ma dications were resumed and a cardiology consultation recommended continuation of intravenous furosemi de for her congestive heart failure. She was evaluated for an AICD and one w as implanted on 07/02/2019. Her enoxaparin was discontinued and a repeat CTA of the chest was obtained, which did not show any evidence of acute pulmona ry embolism. It was felt the patient had not sustained one and she was not pu t on any long-term anticoagulation for preventi on of recurrent thromboembolic disease. The patient has some post-procedure pain in the ches t related to implantation of the AICD. The patient's acute congestive heart failure has resolved and she is off supplemental oxygen. She does have a nonischemic cardiomyopathy with a low ejection fraction and she has a past history of atrial fibrillation with episodes of NSVT. The patient has chronic kidney disease, stage III; diabetes mellitus; osteoarthritis, status post right tota l knee arthroplasty; morbid obesity; and obstructive sleep apnea. The patien t also gives a history of fibromyalgia. She has been diagnosed with tempor al arteritis, has been on maintenance prednisone. There is also a history of intracranial benign tumor followed at [facility]. T he patient has undergone a right total knee arthroplasty, cholecystectomy, herniorrhaph y, and hysterectomy. The patient was just while she was in [facility]. Her 89-year-old from terminal cancer on 07/02/2019. The patient lives in a single family one-story home and she has an identical twin sister who lives in this area and is supportive. The patient is seen today in the [facility] dining room where she is being interviewed by speech therapy for cognitive ling uistic screen. There is no recent history of dysarthria , dysphagia, or any significant cognitive linguistic problems. She is alert and oriented, in no acute distress. Her vital signs PATIENT NAME: BREA GILES show a temperature of 36.9 d egrees centigrade, pulse 68, respirations 18, blood pressure 106/59 supine, early this morni ng with an oxygen saturation of 94% on room air. Her 0917 values show pulse of 48 and b lood pressure of 121/59. This patient has significant defi cits in mobility and self-care and will benefit from an intensive inpatient rehabilitation pr ogram, which will be carried out based upon the findings of her ini tial evaluations today and following the guidelines of her individualized overall plan of care to be developed today. Dictated By: Adrian Blankenship MD WT: PN:ALCON/LYDIA/FRACISCO Conf#: [id number]/DID#: [id number] Authenticated by Adrian Blankenship MD On 9 03:13:26 PM Electronically Signed by Adrian Blankenship MD on at 1513 PATIENT NAME: BREA GILES 2019-07-05 07:42:00-00:00 [facility] ([facility] Cardiology Progress Note REPORT#:[id number] REPORT STATUS: Signed DATE:07/05/19 TIME: 0742 PATIENT: BREA GILES UNIT #: [id number] ROOM/BED: [address] : 45 AGE: 73 SEX: F ATTEND: Osman Blankenship MD ADM AUTHOR: Alexandr Ham MD * ALL edits or amendments must be made on the bakari Nuve/computer document * Subjective Patient reports: No: chest pain, palpitations, shortness of breat h. Objective General VS/I O: 24 hour I O ending at 0700: 07/05 0700 07/04 1900 Intake Total 350 Output Total Balance 350 Intake, Oral 350 Number Voids 3 Patient 100.698 kg Weight Vital Signs: Date Time Temp Pulse Resp B/P B/P Pulse O2 O2 F low FiO2 Mean Ox Delivery Rate 07/05 401 98.4 68 18 106/59 74.7 94 Room air 07/04 1922 99.0 66 18 120/69 85.9 93 Room air Patient Weight Weight (lb): 222 Weight (oz): Weight (kg): 100.333823 Medications: Active Meds + DC'd Last 24 Hrs Metformin HCl 500 MG BID MEALS PO Aspirin 81 MG DAILY PO Metolazone 2.5 MG DAILY PO Pantoprazole 40 MG DAILY PO Potassium Chloride 20 MEQ DAILY PO Prednisone 20 MG DAILY PO Sacubitril/Valsartan 1 TAB DAILY PO Spironolactone 25 MG DAILY PO Carvedilol 6.25 MG Q12HR PO Duloxetine HCl 60 MG BID PO Furosemide 40 MG BID PO Insulin Human Lispro MEDIUM DOSE SLIDING SCALE AC HS SUBQ Dextrose/Water 12.5 GM ASDIR PRN IV Dextrose/Water 25 GM ASDIR PRN IV Acetaminophen 650 MG Q6H PRN PRN PO Hydrocodone Bitart/Acetaminophen 1 TAB Q4H PRN P RN PO Melatonin 6 MG BEDTIME PRN PO Bisacodyl 5 MG BID PRN PRN PO Bisacodyl 10 MG DAILY PRN PRN RECTAL Docusate Sodium 100 MG BID PRN PRN PO Magnesium Hydroxide 30 ML DAILY PRN PRN PO Physical Exam General appearance: alert, awake, oriented Head/Eyes: atraumatic, normocephalic ENT: moist mucosal membranes Neck: no JVD Cardiovascular: CV assessment: regular rate and rhythm Respiratory: clear to auscultation, no distress Lower extremity: LE assessment: no edema Musculoskeletal: full range of motion Neuro/DYE BLENDER: alert, oriented X 3, CN II-XII intact Skin: dry, intact Psychiatry: normal affect, normal judgment/insig ht, normal mood Results Findings/Data: Laboratory Tests 07/05 Chemistry POC Glucose (60 - 99 MG/DL) 151 H 236 H Diagnosis, Assessment Plan Free Text DxA P Notes Free Text DxA P Notes: IMP: Chronic systolic heart failure SSS s/p [facility] AICD PLAN: Continue current medical rx. 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 PRIMARY PROBLEM: This patient had presented to [facility] for evaluation of progressively worsening shortness of breath over a period of a few days. She had gone to the Emergency Department [facility] to be evaluated and was diagnosed with an acute pulmonary embolism as we ll as pulmonary edema and pulmonary infiltrates, which were suggestive of pneumonitis. On 06/25/2019, she was transferred to this hospital for [facility]. She was being treated with enoxaparin 1 mg/kg subcutaneously. She was also on diltiazem infusion for tachycardia. [facility] arrival to [facility], she was admitted to the intensive care unit and administered intrave nous Lopressor to control the heart rate. The diltiazem was weaned off. A CT a ngiogram at the outside hospital showed an acute pulmonary embolism in [facility] right inferior segment branch, cardiomegaly, mild p ulmonary edema and bilateral small pleural effusions suggestive of congestive heart failure. The patient was continued on the enoxaparin and transferred out of the ICU to telemetry and her home medications were resumed. Cardiology consultation with Dr. Alexandr Ham was obtained and the patient was continued on intravenous furosemide and was followed with laboratory tests and chest x-rays. The patient was evaluated for an AICD. Her pulmonary status improved and on 07/02/2019 she underwent placement of the A ICD by Dr. Ham. Dr. Ham doubted the diagnosis of pulmonary embolism and ob tained a repeat CTA of the chest, which did not show any evidence of pulmonary embolism. It was felt the patient had not sustained an acute pulmonary embolism and she was not started on long-term anticoagulation for prevention of recurrent thromboembolic disea se. The patient was in normal sinus rhythm with intermittent demand pa cing, which has been discontinued. She has had some headaches during this hospitalizati on. The patient's who zita s diagnosed with a terminal cancer and has been in a senior living facility, zita s placed on hospice shortly after her admission and he on 07/02/2019. The patient has b een receiving occupational therapy and physical therapy at the bedside. Reportedly, she was independent in all PATIENT NAME: BREA GILES household mobility and activities of mary kate ly living premorbidly using a Rollator to ambulate in the house by herself. Now post-AICD placement, she is requiring supervision with ambulation using the [facility] 4-wheeled walker. She is able to ambulate up to 200 feet, taking standing and sitting rest breaks. She has been requiring minimal assistance with transfers. She is modified independent with feeding while needing minimal assist with groomi ng and hygiene and upper body dressing as well as toileting. She needs moderat e assist for lower body dressing and bathing. PAST MEDICAL HISTORY: This p atient has a history of congestive heart failure in the past with systolic dysfunction. She has a known nonischemic cardiomyopathy with ejection fraction less than 30%. There is a lso a past history of atrial fibrillation and episodes of NSVT. She has chron ic kidney disease stage III; diabetes, osteoarthritis, ch ronic knee bursitis, obstructive sleep apnea and is morbidly obese. She also has a history of tempor al arteritis and had been on maintenance corticosteroid therapy. Kiet gallegos is also a history of an intracranial benign tumor, being followed at [facility]. She has undergone a right total knee arthroplast y, cholecystectomy, herniorrhaphy, and hysterectomy. She is a nonsmo ker and a nondrinker. ALLERGIES: HAS NO KNOWN ALLERGIES. FAMILY HISTORY: Positive for lung cancer, colon cancer, Crohn's disease, and coronary artery disease in a n identical twin and other sister has rare arthritis and diabetes. SOCIAL HISTORY: This patient is now . She lives in a single family one-story home. She has identical twin sister yasmeen soares in the area. REVIEW OF SYSTEMS: The patient has had generaliz ed weakness. No fever, chills or malaise. She has had headaches associated wit h discontinuation of her prednisone. She has had no bleeding disorders or generalized skin eruptions. She denied any upper respira tory nasal congestion or sore throat. She does have dyspnea on exertion and nonproductive co ugh. She reported no wheezing or chest pain. She has had no abdominal pain, nausea, vom iting, diarrhea, or constipation. She has had no frequency, urgency, or dysuria. She reports no cold or heat intolerance. She has had no numbnes s or tingling. PHYSICAL EXAMINATION: GENERAL: This is a well-developed, morbidly obes e, middle-aged white female, who is alert and oriented x3, in no acut e distress. Affect is pleasant. Speech is intelligible and fluent. Thought content reas onable, relevant, and appropriate. HEENT: Normocephalic, atraumatic. Pupils equal, regular, react to light and accommodate. Extraocular movements are intact. N asopharyngeal mucosa moist. Mouth, good dentition. Tongue unremarkab le. Oropharynx is clear, not injected. NECK: No thyromegaly or carotid bruits. Cervical spine is supple and nontender. CHEST: Lungs clear to auscultation. HEART: S1, S2 normal. Rate and rhythm regular. N o murmurs or gallops heard. ABDOMEN: Soft and nontender with no organomegaly . Bowel sounds normally active. EXTREMITIES: She has some distal lower extremity pitting edema. No gross PATIENT NAME: BREA GILES deformities evident. Well-healed right k nee arthroplasty scar. Range of motion in the upper extremities is within functional li mits. NEUROLOGICAL: Cranial nerves II through XII grossly intact. Sensation to light touch is preserved throughout. Muscle strength i n the good range throughout. No focal deficits noted. No spasticity, rigidity, tremor, or dysmetria evident. DIAGNOSES: 1. Debility. 2. Acute on chronic congestive heart failure, re solved. 3. Nonischemic cardiomyopathy with decreased eje ction fraction. 4. History of atrial fibrillation, but rate cont rolled. 5. Status post placement of AICD. 6. Chronic kidney disease. 7. Diabetes mellitus. 8. Osteoarthritis. 9. Obstructive sleep apnea. 10. Morbid obesity. 11. Temporal arteritis. POST-ADMISSION REHABILITATION PHYSICIAN EVALUATI ON WITH TREATMENT PLAN: This patient has significant defi cits in mobility and self-care at this time related to exacerbation of chronic congestive heart fail ure superimposed on premorbid conditions such as morbid obesity, atrial fibril lation, cardiomyopathy and self-reported fibromyalgia. The patient will denise efit from intensive inpatient rehabilitation with 3 hours daily 7 days a week in order to accomplish re-attainment of modified in dependence in household mobility and supervision to independence in activities of daily danny ng. She will benefit from occupational therapy for ADL training, physical therapy for g eneral conditioning and gait training, and speech therapy evaluation for cogn itive linguistic functioning. In addition, she will be seen by the rehabilitat ion clinical psychologist for assessment and provision of a supportive psychot herapy and counseling to facilitate her participation in an active rehabi litation program. This patient's prognosis is reasonably good in spite of all of her comorbidities to achieve her rehabilitation goals summarized a abigail. She will likely need approximately 10 to 14 days of inpatient rehabilitation to achieve these goals. She remains at risk of cours e for pulmonary embolism and deep venous thrombosis. She will be considered for anticoagulation for her atrial fibrillation. She will continue with her home medications and will receive regular insulin sliding scale as well as metformin for control of her di abetes. The patient's present medical condition will charlie ble her to participate in 3 hours of inpatient rehabilitation daily with car eful titration of her therapeutic exercise and fun ctional activities to remain within her restrictions of her congestive heart failure. There has been no change in her medical condition between the time of the preadmission s creening evaluation completed earlier today and her admission to the rehabilit ation unit this evening. Likewise, I do not expect th ere has been any change in her functional status in terms of her performance in mobility and self-care, which were summarized above as derived from the preadmission screening evalu ation. This patient will be seen by each member of the inpatient rehabilitation team PATIENT NAME: JORGE ALBERTO GARCIATAVIAJEFF Robledo and after assessments are co mpleted and individualized overall plan of care will be developed to guide her treatment on t rehabilitation unit, her goal is to return home functioning independently en ough to safely care for herself in her premorbid living situation. Dictated By: Adrian Blankenship MD WT: HP:ALCON/LYDIA/NTS Conf#: [id number]/DID#: [id number] Authenticated and Edited by Adrian Blankenship MD O corine 07/05/19 9:23:33 AM Electronically Signed by Adrian Blankenship MD on at 0926 PATIENT NAME: BREA GILES 2019-07-04 16:37:00-00:00 [facility] ([facility] Rehab Indiv Overall POC REPORT#:[id number] REPORT STATUS: Signed DATE:07/04/19 TIME: 163 PATIENT: BREA GILES UNIT #: [id number] ROOM/BED: [address] : [address] AGE: 73 SEX: F ATTEND: Osman Blankenship MD ADM AUTHOR: Adrian Blankesnhip MD * ALL edits or amendments must be made on the bakari Nuve/computer document * Individualized Overall POC HPI Impairment group: debility NOTE Document ONLY ONE Impairment Group Etiologic diagnosis: ACUTE ON CHRONIC CONGESTIVE HEART FAILURE Medical Expected Course Expected DC destination: Home Problem List/A P: 1. Debility Medical prognosis: fair Medical prognosis details: pt motivation, cognit ion, D/C plan Expected course of Tx: AVOID VENOUS THROMBOEMBOLISM AND EXACERBATION OF CHF AND PARTICIPATE IN REHAB 3 HOURS DAILY Functional Expected Course Functional expected course: The data set between the solid lines has been im ported from multidisciplinary team documentation: __ Anticipated services in acute inpatient rehab: Discipline Physical Therapy Occupational Therapy Speech Therapy Intensity (minutes/day) 90 90 000 Frequency (days/week) 7 7 0 Duration (# of days) 10 10 0 Expected Functional Outcomes: CARE Rolling left and right discharge Independen t (6) goal: CARE Sitting to lying discharge goal: Independen t (6) CARE Lying to sitting on side of bed Independent (6) discharge goal: CARE Sitting to standing discharge Independent ( 6) goal: CARE Chair/bed to chair transfer Independent (6) discharge goal: CARE Car transfer discharge goal: Supervise/touc h asst (4) CARE Walking 10 feet discharge goal: Independent (6) CARE Walking 50 feet with two turns Independent (6) discharge goal: CARE Walking 150 feet discharge goal: Independen t (6) CARE Walking 10 feet on uneven surface Independe nt (6) discharge goal: CARE 1 step (curb) discharge goal: Supervise/gabriel ch asst (4) CARE 4 steps discharge goal: Supervise/touch ass t (4) CARE 12 steps discharge goal: Med cond/safety co ncern CARE Picking up object discharge goal: Supervise /touch asst (4) CARE [place] 50 feet with two turns Not applica ble discharge goal: CARE [place] 150 feet discharge goal: Not appli cable CARE Toileting hygiene discharge goal: Setup/talat an-up only (5) CARE Transfer on/off toilet or commode Setup/talat an-up only (5) discharge goal: Bowel function goal: WILL REMAIN CONTINENT OF STEPHANE WEL UNTIL DISCHARGE Bladder function goal: WILL REAMIN CONTINENT OF BLADDER UNTIL DISCHARGE. CARE Eating discharge goal: Independent (6) CARE Oral hygiene discharge goal: Independent (6 ) CARE Shower/bathe self discharge goal: Independe nt (6) CARE Upper body dressing discharge Independent ( 6) goal: CARE Lower body dressing discharge Independent ( 6) goal: CARE Putting on/taking off footwear Independent (6) discharge goal: __ BAKARIOS Attestation: Based upon the review of clinical staff recommendations of frequency, duration and intensity and individual assessment of this patient, I estimate the following: Estimated length of stay: 7 DAYS MD Review/Recommendation Attestation: Based upon my physical evaluation of the patient and input from the interdisciplinary team members I have de veloped this interdisciplinary overall plan of care and determined the admission to the IRF is reasonable and necessary. Electronically Signed by Adrian Blankenship MD on 02/18 at 1151 RPT #:[id number] END OF REPORT 2019-07-04 14:48:00-00:00 [facility] ([facility]) Rehab Preadmission Screen REPORT#: REPORT STATUS: DATE:07/04/19 TIME: 1448 PATIENT: BREA GILES UNIT #: ROOM: BED: : 45 AGE: 73 SEX: F ATTEND: Osman Blankenship MD PROJECTED ADM AUTHOR: Adrian Blankenship MD REP SRV REP SRV TM: 1448 * ALL edits or amendments must be made on the el ectronic/computer document * IRF Preadmission Screen Functional Assessment Level of function: The data set between the solid lines has been im ported from multidisciplinary team documentation: __ Functional Assessment: Prior device use: Rollator Prior device use additional information: Func. Task Prior LOF Current LOF Expected LOF Bathing Independent Partial/moderate asst Setup /cleanup ONLY U.B. Dressing Independent Supervise/touch asst Independent L.B. Dressing Independent Partial/moderate asst Setup/cleanup ONLY Bed/Ch Transf. Independent Supervise/touch asst Independent Toilet Transfer Independent Supervise/touch ass t Independent Stairs Independent Total assistance Setup/clean up ONLY Language and Cognition: Patient was making her o wn decisions before hospitalization Locomotion prior device use: Rollator Locomotion prior level of function: Independent Description of prior level of locomotion: using rollator. Locomotion current device: RW/FWW Locomotion current level of function: Supervise/ touch asst Locomotion current distance traveled without a r est break: Description of current level of locomotion: 200 ft with 2 standing and 2 sitting breaks. Locomotion expected level of function: Independe nt Description of expected level of locomotion: usi ng RW 500-1000ft Overall functional comment: OT: Upper Body Dress ing: Minimal Assistance Lower Body Dressing: Moderate Assistance Hygiene /Grooming: Minimal Assistance Feeding: Modified [place] Toilet ing: Minimal Assistance Bathing: Moderate Assistance PT: 200 FEET TOTAL WITH 2 STANDING AND 2 SITTING REST BREAKS. Assistance L evel: Minimal Assistance Bed to/from chair: Minimal Assistance Sit to/from st and: Minimal Assistance __ Information From CRS PAS CRS PAS documentation: The data set between the solid lines has been im ported from CRS PAS documentation. 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 Review of med conditions: Date of onset: 06/25/19 Current surgery date and type: 07/02/19 CARDIAC CATHETERIZATION Active comorbid conditions: PULMONARY EMBOLISM, ATRIAL FIBRILLATION, CKD, stage 3, Diabetes, other, Morbid obesity, Sleep apnea, Acute on chronic CHF, Hype rtension Past medical/surgical history: atrial fibrillation, congestive heart failure, v iral cardiomyopathy, hypertension, Osteoarthritis and DM. Risk for medical/clinical complications: Anemia, Arrhythmia, BP fluct uation, Blood sugar fluctuation, Cardiac instability , Constipation, DVT, Depression, Electrolyte imb alance, Hypoxia, Infection, Injury d/t falls, Nutritional compromise, Pain, Renal insuff/failure Acute hospital stay summary: Patient is a 73 year old fem gabriel, previously independent with ADLs and was using rollator for mobility. Jean Marie herring lived with her who while she was in the hospital. Patient admitted to the [facility] for shortness of breath and rapid palpitations. Chest CT showed an acute pulmonary embolism identified in the right inferior segmental branches Lungs, diffuse bilateral ground glass appearance consistent with pulmonary edema. Smal l bilateral pleural effusions right greater than left with compressive atelect asis. Mild coronary arterial calcification and Cardiomegaly. Patient is statu s post dual lead AICD without evidence of acute complications. Patient is belo w her baseline and is a good candidate for inpatient acute rehab. Patient req uires an intensive therapy program, and is willing and able to tolerate a minimum of 3 hours of therapy per day. Patient requires PT and OT to address her weakness from pulmonary embolism and CHF acute on chronic. Patient also r equires 24 hour rehabilitation nursing to manage and educate marco t regarding medications, bowel, bladder programs and carry-over of the rehabilitation program, wound prevention. Areas of ongoing medical management include: -Chronic sys tolic heart failure - volume overload: manage medications -DM: manage medication, monit or BG -CKD, stage 3: monitor labs, CR/BUN -A-FIB: monitor HR Preadmit vitals: Date/Time 07/04/19 0759 Temp F Temp C 37.2 Pulse 56 RR 17 BP 121/74 SPO2% 96 Ht ft 4 Ht in 10 Wt lbs 229.000 BMI 47.8 Supporting diagnostics/labs/radiology/cardiology : Date: 07/03/19 07/04/19 WBC: 10.6 HGB: 10.9 HCT: 38.8 Ca: Na: 134 K+: 4.0 Glu: 166 Mg: BUN: 18 Creat: 0.80 Tot protein: Alb: PTT: PT: INR: PLT: Additional labs: Cultures: Imaging: Chest X-RAY 06/25/19: congestive heart failure a nd resultant edema. Other supporting diagnostics: ELECTROCARDIOGRAM: Sinus rhythm with premature v entricular or aberrantly conducted complexes. Nonspecific T wave abnormality probably digitalis effect. Neurologic status: Neurologic status: Alert, Oriented to person, Oriented to place, Or iented to time, Oriented to situation, Follows simple commands Patient's mood and behavior: Appropriate Hand dominance: Right Bowel/Bladder: Continent of bladder for developmental age: Yes Number of bladder accidents in last 48 hours: Catheter type: Insertion date: Bladder comment: Aids: Continent of bowel for developmental age: Yes Number of bowel accidents in last 48 hours: Date of last BM: 06/28/19 Colostomy: Ileostomy: Bowel comment: Aids: Skin: Skin alteration: Present/Exists Skin alteration 1 Type: Bruising Location: Forearm right Stage: Description: Skin alteration 2 Type: Surgical wound Location: Chest left Stage: Description: Skin alteration 3 Type: Location: Stage: Description: Skin alteration 4 Type: Location: Stage: Description: Eating/Nutritional: Eating/nutritional requirement: PO regular food, PO thin liquids Eating compensatory strategies: Medication administration: Rehab needs: Special rehabilitation needs: Special rehabilitation precautions: Safety/fall, Cardiac Pre-hospital: Pre-hospital services utilized: None Occupation/Profession: RETIRED Education history: Return to work/school plan: NO Marital status: Hobbies/leisure activities: Prior living situation: Home Living with: Family Living with comment: who just . Anticipated DC Plan/Post IRF: Expected discharge destination: Home Expected discharge physical layout: One story Number of external stairs: Number of internal stairs: Grab bars location: Anticipated services upon discharge: Outpatient, Occupational therapy, Physical thera Barriers to discharge: Caregiver support Options discussed with patient: Yes Options discussed with caregiver: Yes Patient agrees with program requirements: Yes Primary support contact: PILO HOBBS Relationship to patient: SISTER Phone number 1: [phone] Phone number 2: [phone] Caregiver availability: Evenings only Caregiver can provide: Intermittent assistance Patient and caregiver goals and preferences: TO GO BACK PLOF Activity Tolerance: Current treatment interventions: Physical therapy, Occupational therapy Patient able to tolerate 3 hours of therapy a da y: Yes Patient able to tolerate 15 hours of therapy a w [place]: Altered therapy schedule comment: Acute Inpatient Rehab Plan: Estimated length of stay in days: 10 Anticipated services in acute inpatient rehab: Rehab nursing 25/04, pack worker supervisor, Occupational therapy, Physical therapy, Speech therapy Discipline Physical Therapy Occupational Therapy Speech Therapy Intensity (minutes/day) 90 90 60 Frequency (days/week) 7 7 7 Duration (# of days) 10 10 10 Additional services: CRS electronic signature: CRS #1 electronic signature: ABNER SORENSON credentials: RN Date: 07/04/19 Time: 114 CRS #2 electronic signature: CRS credentials: Date: Time: CRS #3 electronic signature: CRS credentials: Date: Time: Provider Pre-Admit Summary Acute IP rehab admit: criteria met IP admit comment: WILL BENEFIT FROM INTENSIVE INPATIENT REHAB FOR DEFICITS IN MOB AND ADL; MEDICALLY CAPABLE OF PARTICIPATING IN REHAB 3 HO URS DAILY. determination Based upon my evaluation and review of t supporting assessment documentation and consultation with the mi eadmission computer education professor, I have determined, prior to admitting this patient, that there is r easonable expectation that at the time of admission to the IRF, the patient's medical management and rehabilitation needs require an inpatient stay and close physician involvement. In addition, this patient qualifies for acute in patient rehab admission by functional and medical crite yessica and can be expected to actively participate in, and benefit from, an intensive rehab therapy pro gram. Electronically Signed by Adrian Blankenship MD on 11/21 at 1450 RPT #:[id number] END OF REPORT 2019-07-04 12:58:00-00:00 [facility] ([facility]) Discharge Summary REPORT#:[id number] REPORT STATUS: Signed DATE:07/04/19 TIME: 1258 PATIENT: BREA GILES UNIT #: [id number] ROOM/BED: [address] : 45 AGE: 73 SEX: F ATTEND: Martin Beard MD ADM AUTHOR: Dexter Beard MD * ALL edits or amendments must be made on the el [employer]/computer document * PCP PCP Discharge to: rehab General Information Free Text A P: Pt seen and examined in room, breathing easier b ut still feelign fatigue with ADL. She reports increased UOP with lasix IV and metolazone. She's still thinking of her late but she's not cryin g when his name is mentioned. She's in NSR and her left AICD pocket is less tender. She's been accpeted into IPR, will d/c to rehab today. Will stella nue with asa 81 mg daily. Pt was noted to have new onset afib on admission but has been in NSR since AICD placed. d/w Dr Ham, will consider anticoagulation once AI CD pocket healed. Pt will be discharged to [facility] to cardiopulm rehab Date of admission: Observation Start Date: Date of admission: 06/25/19 Date of discharge: 07/04/19 Discharge diagnosis: - CHF DUE TO SYSTOLIC DYSFUNCTION, acute on alliances consultant rosendo. 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 - ATRIAL FIBRILLATION; rate controlled. - EPISODES OF NSVT. - CKD, stage 3. - DM. - OSTEOARTHRITIS. - CHRONIC KNEE BURSITIS. - OBSTRUCTIVE SLEEP APNEA. - MORBID OBESITY. - b/l PE, initially noted on suboptimal CTA, but repeat study negative Hospital course: 73 yoF with known h/o nonischemic CMP, fibromyal fred, and temporal arteritis admitted from [facility] wi th c/o shortness of breath and new onset AFib. Pt's initial CTA chest revealed questionable b/l PE, but study was suboptimal. She was started on anticoagulation, but repeat CTA d one at [facility] revealed no PE. Lovennox was d/c and pt was given an AICD implant for her severe nonischemic CMP with LVEF < 30%. She's aggre ssively diuresed until euvolumic, then discharged to [facility] for cardiopulm rehab. - CHF DUE TO SYSTOLIC DYSFUNCTION, acute on alliances consultant rosendo. 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 - ATRIAL FIBRILLATION; rate controlled. - EPISODES OF NSVT. - CKD, stage 3. - DM. - OSTEOARTHRITIS. - CHRONIC KNEE BURSITIS. - OBSTRUCTIVE SLEEP APNEA. - MORBID OBESITY. - b/l PE, initially noted on suboptimal CTA, but repeat study negative PLAN and HOSPTIAL COURSE: 06/25/2019: - Patient was transferred from [place] [facility] last night and got admitted to ICU. - Will transfer her out of ICU to telemetry. - Continue Lovenox. - Resume home medications. - Cardiology consult. - Continue IV Lasix started by Ethnology Teacher. - Follow labs and CXR. 06/26/2019: - Continue Lovenox. - Will d/w Cardiology RE bridging to oral anti-c oagulant. - Continue IV lasix. - Monitor labs. - Will add laxative. - Will consult PT/OT. 06/27/2019: - Continue present treatment including IV Lasix. - Will d/w Cardiology RE AICD. 06/28/2019: - Continue present treatment including IV Lasix. - Patient agreeable for defibrillator. Will noti fy Dr Ham. - Continue Lovenox. - Will hold off on starting oral anticoagulation until after AICD placement. 06/29/2019: - Will change IV Lasix to PO. - Replace K+. - Continue Lovenox. - Awaiting patient's decision to proceed with AI CD. 06/30/2019: - Patient is stable. - PO Lasix. - Continue Levonox. - Patient has decided to proceed with AICD. 07/01/2019: - Patient is stable. - Continue Levonox. - Continue other treatment including Lasix. - For AICD insertion tomorrow. - Patient wants to go to SNF after DC. 07/02/2019 Pt feeling well, denies cp/s ob. She's diuresing well on lasix and aldactone. She 's scheduled for AICD placem ent later this PM. Her lovennox was discontinued , will check with dr Ham after AICD before restarting pt on anticoagulation. - d/w Dr Ham, he doubts b/l PEs and wants to confirmed with repeat CTA chest in AM 07/03/2019 Pt breathing better today, r emains in NSR with intermittent demand pacing. She's still c/o easy fatigeability . She c/o headache and has not been restarted on her prednisone for temporal arteritis. Pt also shared that her husb and just passed last night while in fdc in [place]. - agree with restarting prednisone 20 mg daily - Change lasix to IV and start metolazone - Rehab eval for cardio-pulmonary rehab Consultants: cardiology Pt. condition on discharge: fair, improved, stab le Med Rec PCP PCP: PCP: Viviana Thompson MD Med Rec Discharge meds: Stop taking the following medications: FUROSEMIDE (LASIX) 20 MG TAB 20 MILLIGRAM ORAL DAILY. Sacubitril/Valsartan (Entresto 24 MG-26 MG Table t) 1 TAB TAB 1 EACH ORAL TWICE DAILY. Continue taking these medications: OMEPRAZOLE DR (OMEPRAZOLE) 20 MG TAB.DR 20 MILLIGRAM ORAL DAILY. predniSONE (predniSONE) 20 MG TAB [address] MILLIGRAM ORAL DAILY. DULoxetine [address] (CYMBALTA) 60 MG CAP.DR 60 MILLIGRAM ORAL TWICE DAILY. Qty = 30 Start taking the following new medications: Sacubitril/Valsartan (Entresto 24 MG-26 MG Table t) 1 TAB TAB 1 TABLET ORAL DAILY. Qty = 1 No Refills CARVEDILOL (COREG) 6.25 MG TAB 6.25 MILLIGRAM ORAL EVERY 12 HOURS. Qty = 1 No Refills SPIRONOLACTONE (ALDACTONE) 25 MG TAB 25 MILLIGRAM ORAL DAILY. Qty = 1 No Refills ACETAMINOPHEN (TYLENOL) 325 MG TAB 650 MILLIGRAM ORAL EVERY 6 HOURS NEEDED. as needed for PAIN 1-5/HEADACHE/ FEVER Qty = 1 No Refills ASPIRIN (ASPIRIN) 81 MG TAB.CHEW 81 MILLIGRAM ORAL DAILY. Qty = 1 No Refills HYDROcodone/APAP (NORCO 5/325) 1 TAB TAB 1 TABLET ORAL EVERY 4 HOURS NEEDED. as neede d for PAIN SCALE 4-6 Qty = 1 No Refills POTASSIUM CHLORIDE ER (KLOR-CON M20) 20 MEQ TAB. SR 20 MILLIEQUIVALENT ORAL DAILY. Qty = 1 No Refills METOLAZONE (ZAROXOLYN) 2.5 MG TAB 2.5 MILLIGRAM ORAL DAILY. Qty = 1 No Refills MELATONIN (MELATONIN) 3 MG TAB 6 MILLIGRAM ORAL BEDTIME. as needed for SLEEP Qty = 1 No Refills FUROSEMIDE (LASIX) 40 MG TAB 40 MILLIGRAM ORAL TWICE DAILY. Qty = 1 No Refills Objective VS/I O Last Documented: Result Date Time Pulse Ox 94 07/04 115 B/P 131/81 07/04 1159 B/P Mean 97.8 07/04 1159 O2 Delivery Room air 07/04 1159 Temp 98.1 07/04 1159 Pulse 68 07/04 115 Resp 18 07/04 115 O2 Flow Rate [id number] 06/30 193 FiO2 32 06/28 0005 24 hour I O ending at 0700: 07/04 0700 07/03 1900 Intake Total 300 Output Total Balance 300 Intake, Oral 300 Number 1 Bowel Movements Number Voids 1 Patient Weight Weight (lb): 230 Weight (oz): 6.13 Weight (kg): 104.500 General appearance: obese, alert, awake, convers ational, mental status normal Head/Eyes: atraumatic, clear cornea, normal conj unctiva/sclera ENT: moist mucosal membranes Cardiovascular: regular rate rhythm, normal hear t sounds, left upper chest AICD Respiratory: no distress, aerating well, rales GI: soft, non-tender, no mass/organomegaly Extremities: moves all, pitting edema Results Findings/Data: Laboratory Tests: 07/04 07/04 07/04 07/03 07/03 1158 0758 0519 1939 1611 Chemistry Sodium (137 - 145 MMOL/L) 134 L Potassium (3.5 - 5.1 MMOL/L) 4.0 Chloride (98 - 107 MMOL/L) 99 Carbon Dioxide (22 - 30 MMOL/L) 28 Anion Gap (14 - 24 MMOL/L) 11 L BUN (7 - 17 MG/DL) 18 H Creatinine (0.52 - 1.04 MG/DL) 0.80 Glomerular Filtr Rate > 60 Glucose (74 - 106 MG/DL) 166 H POC Glucose (60 - 99 MG/DL) 167 H 140 H 226 H 2 70 H Calcium (8.4 - 10.2 MG/DL) 9.5 Discharge Instructions Diet: cardiac Activity: as tolerated, keep left arm in arm res t at night Wound/dressing care: Keep wound clean and dry Discharge management: greater than 30 mins, face to face encounter Time spent: Time spent with patient (minutes): 45 Follow-up Appointments PCP: PCP: Viviana Thompson MD Attending Physician: Attending Physician: Dexter Beard MD Consulting provider 1: Provider 1: Alexandr Ham MD Specialty: CARDIOVASC DIS Follow up timeframe: In 1-2 weeks Quality Medications Current medication review: I attest that the foregoing medication list in t he medical record is true, accurate, and complete to the best of my knowled ge. Advanced Care Plan 65 or Older Discussed with: patient Discussion included: code status (full code) at 0829 RPT #:[id number] END OF REPORT 2019-07-04 06:58:00-00:00 [facility] ([facility] Cardiology Progress Note REPORT#:[id number] REPORT STATUS: Signed DATE:07/04/19 TIME: 0658 PATIENT: BREA GILES UNIT #: [id number] ROOM/BED: [address] : 45 AGE: 73 SEX: F ATTEND: Martin Beard MD ADM AUTHOR: Alexandr Ham MD * ALL edits or amendments must be made on the [employer] document * Subjective Chief Complaint: Dyspnea, CHF Patient reports: No: chest pain, palpitations, shortness of breat h. Objective General VS/I O: 24 hour I O ending at 0700: 07/04 0700 07/03 1900 Intake Total 300 Output Total Balance 300 Intake, Oral 300 Number 1 Bowel Movements Number Voids 1 Vital Signs: Date Time Temp Pulse Resp B/P B/P Pulse O2 O2 F low FiO2 Mean Ox Delivery Rate 07/03 2336 98.4 58 18 131/80 96.7 83 Room air 07/03 1914 98.6 73 18 135/72 93.2 92 Room air 07/03 1611 99.5 78 17 101/67 78.3 93 Room air 07/03 1205 99.5 63 17 122/77 91.6 93 Room air 07/03 0802 98.8 53 17 116/82 92.9 93 Room air Patient Weight Weight (lb): 230 Weight (oz): 6.13 Weight (kg): 104.500 Medications: Active Meds + DC'd Last 24 Hrs Metolazone 2.5 MG DAILY PO Furosemide 40 MG DAILY IV Prednisone 20 MG DAILY PO Iopamidol 0 .STK-MED ONE INJ (DC) Iopamidol 100 ML ONCE PRN IV (DC) Cefazolin Sodium 1,000 MG Q8H IV (DC) Sodium Chloride 10 ML Acetaminophen 650 MG Q6H PRN PRN PO Hydrocodone Bitart/Acetaminophen 1 TAB Q4H PRN P RN PO Furosemide 40 MG DAILY PO (DC) Potassium Chloride 20 MEQ DAILY PO Spironolactone 25 MG DAILY PO Metformin HCl 500 MG BID MEALS PO (r) Duloxetine HCl 60 MG BID PO Pantoprazole 40 MG DAILY PO Sacubitril/Valsartan 1 TAB DAILY PO Metoprolol Tartrate 5 MG Q6H PRN PRN IV Melatonin 6 MG BEDTIME PRN PO Ondansetron HCl 4 MG Q6H PRN PRN IV Aspirin 81 MG DAILY PO Carvedilol 6.25 MG Q12HR PO Insulin Human Lispro MEDIUM DOSE SLIDING SCALE AC HS SUBQ Dextrose/Water 12.5 GM ASDIR PRN IV Dextrose/Water 25 GM ASDIR PRN IV Hydralazine HCl 10 MG Q6H PRN PRN IV Physical Exam General appearance: alert, awake, oriented Head/Eyes: atraumatic, normocephalic ENT: moist mucosal membranes Neck: no bruit/NL carotids, no JVD, no masses or swelling Cardiovascular: CV assessment: regular rate and rhythm, BP pul ses = bilaterally Murmur assessment: II/ JOVANA Respiratory: on oxygen, clear to auscultation, n o distress Abdomen: soft, non-tender, no mass/organomegaly (obese), no pulsatile mass Lower extremity: LE assessment: edema (trace), 2+ peripheral pul ses Musculoskeletal: full range of motion Neuro/DYE BLENDER: alert, oriented X 3, CN II-XII intact , no motor deficits Skin: dry, intact Psychiatry: normal affect, normal judgment/insig ht, normal mood, no hallucinations Results Findings/Data: Laboratory Tests 07/04 07/03 07/03 07/03 07/03 0519 1939 1611 1204 0801 Chemistry Sodium (137 - 145 MMOL/L) 134 L Potassium (3.5 - 5.1 MMOL/L) 4.0 Chloride (98 - 107 MMOL/L) 99 Carbon Dioxide (22 - 30 MMOL/L) 28 Anion Gap (14 - 24 MMOL/L) 11 L BUN (7 - 17 MG/DL) 18 H Creatinine (0.52 - 1.04 MG/DL) 0.80 Glomerular Filtr Rate > 60 Glucose (74 - 106 MG/DL) 166 H POC Glucose (60 - 99 MG/DL) 226 H 270 H 220 H 1 37 H Calcium (8.4 - 10.2 MG/DL) 9.5 Radiology data: Recent Impressions: CAT SCAN - CTA CHEST FOR PE 07/03 830 Report Impression - Status: SIGNED Entered: 07/03/2019 1102 Impression: 1. No central pulmonary artery embolism. 2. Nonspecific mild groundglass opacities within the mid and upper lungs. This may be result of edema or an atypica l infectious process. 3. Minimal pleural fluid, right greater than lef t. Impression By: [email or web address] - Alf Schwarz M.D. Diagnosis, Assessment Plan Free Text DxA P Notes Free Text DxA P Notes: IMP: Acute pulmonary embolism by outside CT No evidence of PE on repeat CTA. Chronic systolic heart failure - volume overloa d. LVEF 25-29% by echo . on beta rocio, entresto. MAT DM DCMP NYHA III CHF s/p [facility] AICD REC: Continue diuresis with IV lasix. Continue beta rocio. at 0729 RPT #:[id number] END OF REPORT 2019-07-03 19:50:00-00:00 [facility] ([facility]) Hospitalist Progress Note REPORT#:[id number] REPORT STATUS: Signed DATE:07/03/19 TIME: 1949 PATIENT: BREA GILES UNIT #: [id number] ROOM/BED: [address] : 45 AGE: 73 SEX: F ATTEND: Martin Beard MD ADM AUTHOR: Dexter Beard MD * ALL edits or amendments must be made on the el [employer]ronic/computer document * Subjective Chief Complaint: pod#1 AICD, c/o mild incisio nal tenderness. Her breathign much sera rthan when she's admitted but still eas juan josé fatigue with walking in room. She reports she's been taking prednisone for h/o temporal arteriti s Review of Systems Constitutional: Reports: generalized weakness. Denies: chills, f ever, recent wt loss. Respiratory: Reports: non productive cough, SOB. Denies: hemo ptysis, pleuritic pain. Cardiovascular: Reports: edema. Denies: chest pain, palpitations . GI: Denies: abdominal pain, anorexia, constipation, diarrhea, dysphagia, GERD, nausea, vomiting. : Reports: urgency. Denies: dysuria, flank pain, h ematuria. Objective General VS/I O: Vital Signs: Date Time Temp Pulse Resp B/P B/P Pulse O2 O2 F low FiO2 Mean Ox Delivery Rate 07/03 1914 98.6 73 18 135/72 93.2 92 Room air 07/03 1611 99.5 78 17 101/67 78.3 93 Room air 07/03 1205 99.5 63 17 122/77 91.6 93 Room air 07/03 0802 98.8 53 17 116/82 92.9 93 Room air 07/03 0438 98.1 64 18 124/83 96.4 91 Room air 07/02 2350 98.1 63 18 100/66 77.2 96 Room air 07/02 2038 97.3 72 18 110/64 79.5 92 24 hour I O ending at 0700: 07/03 0700 07/02 1900 Intake Total 500 120 Output Total Balance 500 120 Intake, Oral 500 120 Number Voids 3 Patient Weight Weight (lb): 230 Weight (oz): 6.13 Weight (kg): 104.500 Medications: Active Meds + DC'd Last 24 Hrs Metolazone 2.5 MG DAILY PO (UNV) Furosemide 40 MG DAILY IV Prednisone 20 MG DAILY PO Iopamidol 0 .STK-MED ONE INJ (DC) Iopamidol 100 ML ONCE PRN IV Diatrizoate Meglum/Diatrizoate Sod 0 .STK-MED ON E .ROUTE (DC) Cefazolin Sodium 1,000 MG Q8H IV (DC) Sodium Chloride 10 ML Acetaminophen 650 MG Q6H PRN PRN PO Hydrocodone Bitart/Acetaminophen 1 TAB Q4H PRN P RN PO Furosemide 40 MG DAILY PO (DC) Potassium Chloride 20 MEQ DAILY PO Spironolactone 25 MG DAILY PO Metformin HCl 500 MG BID MEALS PO (DA) Duloxetine HCl 60 MG BID PO Pantoprazole 40 MG DAILY PO Sacubitril/Valsartan 1 TAB DAILY PO Metoprolol Tartrate 5 MG Q6H PRN PRN IV Melatonin 6 MG BEDTIME PRN PO Ondansetron HCl 4 MG Q6H PRN PRN IV Aspirin 81 MG DAILY PO Carvedilol 6.25 MG Q12HR PO Insulin Human Lispro MEDIUM DOSE SLIDING SCALE AC HS SUBQ Dextrose/Water 12.5 GM ASDIR PRN IV Dextrose/Water 25 GM ASDIR PRN IV Hydralazine HCl 10 MG Q6H PRN PRN IV Physical Exam General appearance: obese, alert, awake Head/Eyes: atraumatic, clear cornea, normal conj unctiva/sclera, PERRL ENT: moist mucosal membranes, normal pharynx Neck: non-tender, supple/no meningismus Cardiovascular: irregularly irregular Respiratory: rales, aerating well, symmetric exp ansion, no distress Abdomen: obese, non-tender, normal bowel sounds, soft, no distention, no guarding Genitourinary: no lee Rectal: not indicated Extremities: moves all, no clubbing, no cyanosis , mild pitting edema in LE. Musculoskeletal: normal inspection, no muscle sp asm Neuro/DYE BLENDER: alert, oriented X 3, normal speech, n o motor deficits Psychiatry: normal affect, normal judgment/insig ht, normal mood Results Findings/Data: Laboratory Tests 07/03 07/03 07/03 07/03 07/02 1611 1204 0801 0442 2040 Chemistry Sodium (137 - 145 MMOL/L) 133 L Potassium (3.5 - 5.1 MMOL/L) 4.2 Chloride (98 - 107 MMOL/L) 97 L Carbon Dioxide (22 - 30 MMOL/L) 28 BUN (7 - 17 MG/DL) 15 Creatinine (0.52 - 1.04 MG/DL) 0.70 Glomerular Filtr Rate > 60 Glucose (74 - 106 MG/DL) 131 H POC Glucose (60 - 99 MG/DL) 270 H 220 H 137 H 1 91 H Calcium (8.4 - 10.2 MG/DL) 9.6 Laboratory Tests 07/03 0442 Hematology WBC (3.8 - 9.8 K/MM3) 10.6 H RBC (3.58 - 4.97 M/MM3) 4.58 Hgb (11.2 - 14.9 G/DL) 10.9 L Hct (33.2 - 43.5 %) 38.8 MCV (80.7 - 99.1 fL) 85 MCH (27.0 - 34.1 pg) 23.8 L MCHC (32.2 - 35.7 %) 28.1 L RDW (12.1 - 15.2 %) 16.2 H Plt Count (129 - 368 K/MM3) 346 MPV (7.4 - 10.4 fl) 10.4 Neut % (Auto) (43 - 75 %) 74.9 Lymph % (Auto) (14 - 44 %) 11.8 L Baca % (Auto) (4 - 13 %) 9.0 Eos % (Auto) (0 - 6 %) 2.8 Baso % (Auto) (0 - 2 %) 0.7 Neut # (Auto) (2.0 - 7.6 K/mm3) 7.91 H Lymph # (Auto) (1.0 - 3.8 K/mm3) 1.24 Baca # (Auto) (0.1 - 0.8 K/mm3) 0.95 H Eos # (Auto) (0.0 - 0.2 K/mm3) 0.30 H Baso # (Auto) (0.0 - 0.2 K/mm3) 0.07 Immature Gran % (0.0 - 2.0 %) 0.8 Nucleated RBC % (0 - 1.0 %) 0.0 Nucleated RBCs # (Man) (0.0 - 0.1 K/mm3) 0.00 Radiology data: Recent Impressions: CAT SCAN - CTA CHEST FOR PE 07/03 830 Report Impression - Status: SIGNED Entered: 07/03/2019 1102 Impression: 1. No central pulmonary artery embolism. 2. Nonspecific mild groundglass opacities within the mid and upper lungs. This may be result of edema or an atypica l infectious process. 3. Minimal pleural fluid, right greater than lef t. Impression By: [email or web address] - Alf Schwarz M.D. Diagnosis, Assessment Plan Consultants: cardiology Free Text DxA P Notes Free Text DxA P Notes: - PULMONARY EMBOLISM. - CHF DUE TO SYSTOLIC DYSFUNCTION, acute on alliances consultant rosendo. 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 - ATRIAL FIBRILLATION; rate controlled. - EPISODES OF NSVT. - CKD, stage 3. - DM. - OSTEOARTHRITIS. - CHRONIC KNEE BURSITIS. - OBSTRUCTIVE SLEEP APNEA. - MORBID OBESITY. PLAN and HOSPTIAL COURSE: 06/25/2019: - Patient was transferred from [facility] last night and got admitted to ICU. - Will transfer her out of ICU to telemetry. - Continue Lovenox. - Resume home medications. - Cardiology consult. - Continue IV Lasix started by Ethnology Teacher. - Follow labs and CXR. 06/26/2019: - Continue Lovenox. - Will d/w Cardiology RE bridging to oral anti-c oagulant. - Continue IV lasix. - Monitor labs. - Will add laxative. - Will consult PT/OT. 06/27/2019: - Continue present treatment including IV Lasix. - Will d/w Cardiology RE AICD. 06/28/2019: - Continue present treatment including IV Lasix. - Patient agreeable for defibrillator. Will noti fy Dr Ham. - Continue Lovenox. - Will hold off on starting oral anticoagulation until after AICD placement. 06/29/2019: - Will change IV Lasix to PO. - Replace K+. - Continue Lovenox. - Awaiting patient's decision to proceed with AI CD. 06/30/2019: - Patient is stable. - PO Lasix. - Continue Levonox. - Patient has decided to proceed with AICD. 07/01/2019: - Patient is stable. - Continue Levonox. - Continue other treatment including Lasix. - For AICD insertion tomorrow. - Patient wants to go to SNF after DC. 07/02/2019 Pt feeling well, denies cp/s ob. She's diuresing well on lasix and aldactone. She 's scheduled for AICD placem ent later this PM. Her lovennox was discontinued , will check with dr Ham after AICD before restarting pt on anticoagulation. - d/w Dr Ham, he doubts b/l PEs and wants to confirmed with repeat CTA chest in AM 07/03/2019 Pt breathing better today, r emains in NSR with intermittent demand pacing. She's still c/o easy fatigeability . She c/o headache and has not been restarted on her prednisone for temporal arteritis. Pt also shared that her husb and just passed last night while in fdc in [place]. - agree with restarting prednisone 20 mg daily - Change lasix to IV and start metolazone - Rehab eval for cardio-pulmonary rehab Quality Medications Current medication review: I attest that the foregoing medication list in [facility] medical record is true, accurate, and complete to the best of my knowled ge. at 1955 RPT #:[id number] END OF REPORT 2019-07-03 19:50:00-00:00 [facility] ([facility]) Hospitalist Progress Note REPORT#:[id number] REPORT STATUS: Signed DATE:07/03/19 TIME: 1949 PATIENT: BREA GILES UNIT #: [id number] ROOM/BED: [address] : 45 AGE: 73 SEX: F ATTEND: Martin Beard MD ADM AUTHOR: Dexter Beard MD * ALL edits or amendments must be made on the [employer]/computer document * See Addendum Subjective Chief Complaint: pod#1 AICD, c/o mild incisio nal tenderness. Her breathign much sera rthan when she's admitted but still eas juan josé fatigue with walking in room. She reports she's been taking prednisone for h/o temporal arteriti s Review of Systems Constitutional: Reports: generalized weakness. Denies: chills, f ever, recent wt loss. Respiratory: Reports: non productive cough, SOB. Denies: hemo ptysis, pleuritic pain. Cardiovascular: Reports: edema. Denies: chest pain, palpitations . GI: Denies: abdominal pain, anorexia, constipation, diarrhea, dysphagia, GERD, nausea, vomiting. : Reports: urgency. Denies: dysuria, flank pain, h ematuria. Objective General VS/I O: Vital Signs: Date Time Temp Pulse Resp B/P B/P Pulse O2 O2 F low FiO2 Mean Ox Delivery Rate 07/03 1914 98.6 73 18 135/72 93.2 92 Room air 07/03 1611 99.5 78 17 101/67 78.3 93 Room air 07/03 1205 99.5 63 17 122/77 91.6 93 Room air 07/03 0802 98.8 53 17 116/82 92.9 93 Room air 07/03 0438 98.1 64 18 124/83 96.4 91 Room air 07/02 2350 98.1 63 18 100/66 77.2 96 Room air 07/02 2038 97.3 72 18 110/64 79.5 92 24 hour I O ending at 0700: 07/03 0700 07/02 1900 Intake Total 500 120 Output Total Balance 500 120 Intake, Oral 500 120 Number Voids 3 Patient Weight Weight (lb): 230 Weight (oz): 6.13 Weight (kg): 104.500 Medications: Active Meds + DC'd Last 24 Hrs Metolazone 2.5 MG DAILY PO (UNV) Furosemide 40 MG DAILY IV Prednisone 20 MG DAILY PO Iopamidol 0 .STK-MED ONE INJ (DC) Iopamidol 100 ML ONCE PRN IV Diatrizoate Meglum/Diatrizoate Sod 0 .STK-MED ON E .ROUTE (DC) Cefazolin Sodium 1,000 MG Q8H IV (DC) Sodium Chloride 10 ML Acetaminophen 650 MG Q6H PRN PRN PO Hydrocodone Bitart/Acetaminophen 1 TAB Q4H PRN P RN PO Furosemide 40 MG DAILY PO (DC) Potassium Chloride 20 MEQ DAILY PO Spironolactone 25 MG DAILY PO Metformin HCl 500 MG BID MEALS PO (DA) Duloxetine HCl 60 MG BID PO Pantoprazole 40 MG DAILY PO Sacubitril/Valsartan 1 TAB DAILY PO Metoprolol Tartrate 5 MG Q6H PRN PRN IV Melatonin 6 MG BEDTIME PRN PO Ondansetron HCl 4 MG Q6H PRN PRN IV Aspirin 81 MG DAILY PO Carvedilol 6.25 MG Q12HR PO Insulin Human Lispro MEDIUM DOSE SLIDING SCALE AC HS SUBQ Dextrose/Water 12.5 GM ASDIR PRN IV Dextrose/Water 25 GM ASDIR PRN IV Hydralazine HCl 10 MG Q6H PRN PRN IV Physical Exam General appearance: obese, alert, awake Head/Eyes: atraumatic, clear cornea, normal conj unctiva/sclera, PERRL ENT: moist mucosal membranes, normal pharynx Neck: non-tender, supple/no meningismus Cardiovascular: irregularly irregular Respiratory: rales, aerating well, symmetric exp ansion, no distress Abdomen: obese, non-tender, normal bowel sounds, soft, no distention, no guarding Genitourinary: no lee Rectal: not indicated Extremities: moves all, no clubbing, no cyanosis , mild pitting edema in LE. Musculoskeletal: normal inspection, no muscle sp asm Neuro/DYE BLENDER: alert, oriented X 3, normal speech, n o motor deficits Psychiatry: normal affect, normal judgment/insig ht, normal mood Results Findings/Data: Laboratory Tests 07/03 07/03 07/03 07/03 07/02 1611 1204 0801 0442 2040 Chemistry Sodium (137 - 145 MMOL/L) 133 L Potassium (3.5 - 5.1 MMOL/L) 4.2 Chloride (98 - 107 MMOL/L) 97 L Carbon Dioxide (22 - 30 MMOL/L) 28 BUN (7 - 17 MG/DL) 15 Creatinine (0.52 - 1.04 MG/DL) 0.70 Glomerular Filtr Rate > 60 Glucose (74 - 106 MG/DL) 131 H POC Glucose (60 - 99 MG/DL) 270 H 220 H 137 H 1 91 H Calcium (8.4 - 10.2 MG/DL) 9.6 Laboratory Tests 07/03 0442 Hematology WBC (3.8 - 9.8 K/MM3) 10.6 H RBC (3.58 - 4.97 M/MM3) 4.58 Hgb (11.2 - 14.9 G/DL) 10.9 L Hct (33.2 - 43.5 %) 38.8 MCV (80.7 - 99.1 fL) 85 MCH (27.0 - 34.1 pg) 23.8 L MCHC (32.2 - 35.7 %) 28.1 L RDW (12.1 - 15.2 %) 16.2 H Plt Count (129 - 368 K/MM3) 346 MPV (7.4 - 10.4 fl) 10.4 Neut % (Auto) (43 - 75 %) 74.9 Lymph % (Auto) (14 - 44 %) 11.8 L Baca % (Auto) (4 - 13 %) 9.0 Eos % (Auto) (0 - 6 %) 2.8 Baso % (Auto) (0 - 2 %) 0.7 Neut # (Auto) (2.0 - 7.6 K/mm3) 7.91 H Lymph # (Auto) (1.0 - 3.8 K/mm3) 1.24 Baca # (Auto) (0.1 - 0.8 K/mm3) 0.95 H Eos # (Auto) (0.0 - 0.2 K/mm3) 0.30 H Baso # (Auto) (0.0 - 0.2 K/mm3) 0.07 Immature Gran % (0.0 - 2.0 %) 0.8 Nucleated RBC % (0 - 1.0 %) 0.0 Nucleated RBCs # (Man) (0.0 - 0.1 K/mm3) 0.00 Radiology data: Recent Impressions: CAT SCAN - CTA CHEST FOR PE 07/03 830 Report Impression - Status: SIGNED Entered: 07/03/2019 1102 Impression: 1. No central pulmonary artery embolism. 2. Nonspecific mild groundglass opacities within the mid and upper lungs. This may be result of edema or an atypica l infectious process. 3. Minimal pleural fluid, right greater than lef t. Impression By: [email or web address] - Alf Schwarz M.D. Diagnosis, Assessment Plan Consultants: cardiology Free Text DxA P Notes Free Text DxA P Notes: - PULMONARY EMBOLISM. - CHF DUE TO SYSTOLIC DYSFUNCTION, acute on alliances consultant rosendo. 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 - ATRIAL FIBRILLATION; rate controlled. - EPISODES OF NSVT. - CKD, stage 3. - DM. - OSTEOARTHRITIS. - CHRONIC KNEE BURSITIS. - OBSTRUCTIVE SLEEP APNEA. - MORBID OBESITY. PLAN and HOSPTIAL COURSE: 06/25/2019: - Patient was transferred from [facility] last night and got admitted to ICU. - Will transfer her out of ICU to telemetry. - Continue Lovenox. - Resume home medications. - Cardiology consult. - Continue IV Lasix started by Ethnology Teacher. - Follow labs and CXR. 06/26/2019: - Continue Lovenox. - Will d/w Cardiology RE bridging to oral anti-c oagulant. - Continue IV lasix. - Monitor labs. - Will add laxative. - Will consult PT/OT. 06/27/2019: - Continue present treatment including IV Lasix. - Will d/w Cardiology RE AICD. 06/28/2019: - Continue present treatment including IV Lasix. - Patient agreeable for defibrillator. Will noti fy Dr Ham. - Continue Lovenox. - Will hold off on starting oral anticoagulation until after AICD placement. 06/29/2019: - Will change IV Lasix to PO. - Replace K+. - Continue Lovenox. - Awaiting patient's decision to proceed with AI CD. 06/30/2019: - Patient is stable. - PO Lasix. - Continue Levonox. - Patient has decided to proceed with AICD. 07/01/2019: - Patient is stable. - Continue Levonox. - Continue other treatment including Lasix. - For AICD insertion tomorrow. - Patient wants to go to SNF after DC. 07/02/2019 Pt feeling well, denies cp/s ob. She's diuresing well on lasix and aldactone. She 's scheduled for AICD placem ent later this PM. Her lovennox was discontinued , will check with dr Ham after AICD before restarting pt on anticoagulation. - d/w Dr Ham, he doubts b/l PEs and wants to confirmed with repeat CTA chest in AM 07/03/2019 Pt breathing better today, r emains in NSR with intermittent demand pacing. She's still c/o easy fatigeability . She c/o headache and has not been restarted on her prednisone for temporal arteritis. Pt also shared that her husb and just passed last night while in fdc in [place]. - agree with restarting prednisone 20 mg daily - Change lasix to IV and start metolazone - Rehab eval for cardio-pulmonary rehab Quality Medications Current medication review: I attest that the foregoing medication list in t he medical record is true, accurate, and complete to the best of my knowled ge. at 1955 Addendum 1: 07/03/191954 by Dexter Beard MD Repeat CTA chest shows no residual PE. Report of CTA chest from [facility] mentioned right segmental PE. However, e cho report does not indicate any right heart strain and pt's venous doppler of lower legs also negative for DVT. d/w Dr Ham, will not restart anticoagulation for PE at this time. at 195 RPT #:[id number] END OF REPORT 2019-07-03 07:00:00-00:00 [facility] ([facility] Cardiology Progress Note REPORT#:[id number] REPORT STATUS: Signed DATE:07/03/19 TIME: 07 PATIENT: BREA GILES UNIT #: [id number] ROOM/BED: [address] : 45 AGE: 73 SEX: F ATTEND: Martin Beard MD ADM AUTHOR: Alexandr Ham MD * ALL edits or amendments must be made on the [employer] document * Subjective Chief Complaint: Dyspnea, CHF Patient reports: No: chest pain, palpitations, shortness of breat h. Objective General VS/I O: 24 hour I O ending at 0700: 07/03 0700 07/02 1900 Intake Total 500 120 Output Total Balance 500 120 Intake, Oral 500 120 Number Voids 3 Vital Signs: Date Time Temp Pulse Resp B/P B/P Pulse O2 O2 F low FiO2 Mean Ox Delivery Rate 07/03 438 98.1 64 18 124/83 96.4 91 Room air 07/020 98.1 63 18 100/66 77.2 96 Room air 07/028 97.3 72 18 110/64 79.5 92 07/02 0747 97.9 66 18 155/85 108.3 92 Room air Patient Weight Weight (lb): 230 Weight (oz): 6.13 Weight (kg): 104.500 Medications: Active Meds + DC'd Last 24 Hrs Furosemide 20 MG DAILY PO (CAN) Prednisone 20 MG DAILY PO (CAN) Diatrizoate Meglum/Diatrizoate Sod 0 .STK-MED ON E .ROUTE (DC) Cefazolin Sodium 1,000 MG Q8H IV Sodium Chloride 10 ML Acetaminophen 650 MG Q6H PRN PRN PO Hydrocodone Bitart/Acetaminophen 1 TAB Q4H PRN P RN PO Etomidate 0 .STK-MED ONE .ROUTE (DC) Etomidate 0 .STK-MED ONE .ROUTE (DC) Etomidate 0 .STK-MED ONE .ROUTE (DC) Midazolam HCl 0 .STK-MED ONE .ROUTE (DC) Bacitracin 0 .STK-MED ONE .ROUTE (DC) Lidocaine 0 .STK-MED ONE .ROUTE (DC) Furosemide 0 .STK-MED ONE .ROUTE (DC) Furosemide 0 .STK-MED ONE .ROUTE (DC) Lidocaine 0 .STK-MED ONE .ROUTE (DC) Sodium Chloride 500 ML .STK-MED ONE IV (DC) Iopamidol 0 .STK-MED ONE .ROUTE (DC) Fentanyl Citrate 0 .STK-MED ONE .ROUTE (DC) Midazolam HCl 0 .STK-MED ONE .ROUTE (DC) Sodium Chloride 500 ML .STK-MED ONE IV (DC) Bacitracin 0 .STK-MED ONE .ROUTE (DC) Cefazolin Sodium 0 .STK-MED ONE .ROUTE (DC) Furosemide 40 MG DAILY PO Potassium Chloride 20 MEQ DAILY PO Spironolactone 25 MG DAILY PO Metformin HCl 500 MG BID MEALS PO (DA) Duloxetine HCl 60 MG BID PO Pantoprazole 40 MG DAILY PO Sacubitril/Valsartan 1 TAB DAILY PO Metoprolol Tartrate 5 MG Q6H PRN PRN IV Acetaminophen 1,000 MG Q6H PRN PRN PO (DC) Melatonin 6 MG BEDTIME PRN PO Ondansetron HCl 4 MG Q6H PRN PRN IV Aspirin 81 MG DAILY PO Carvedilol 6.25 MG Q12HR PO Insulin Human Lispro MEDIUM DOSE SLIDING SCALE AC HS SUBQ Dextrose/Water 12.5 GM ASDIR PRN IV Dextrose/Water 25 GM ASDIR PRN IV Hydralazine HCl 10 MG Q6H PRN PRN IV Physical Exam General appearance: alert, awake, oriented Head/Eyes: atraumatic, normocephalic ENT: moist mucosal membranes Neck: no bruit/NL carotids, no JVD, no masses or swelling Cardiovascular: CV assessment: regular rate and rhythm, BP puls es = bilaterally Murmur assessment: II/ JOVANA Respiratory: on oxygen, clear to auscultation, n o distress Abdomen: soft, non-tender, no mass/organomegaly (obese), no pulsatile mass Lower extremity: LE assessment: edema (trace), 2+ peripheral pul ses Musculoskeletal: full range of motion Neuro/DYE BLENDER: alert, oriented X 3, CN II-XII intact , no motor deficits Skin: dry, intact Psychiatry: normal affect, normal judgment/insig ht, normal mood, no hallucinations Results Findings/Data: Laboratory Tests 07/03 2040 1905 Chemistry Sodium (137 - 145 MMOL/L) 133 L Potassium (3.5 - 5.1 MMOL/L) 4.2 Chloride (98 - 107 MMOL/L) 97 L Carbon Dioxide (22 - 30 MMOL/L) 28 BUN (7 - 17 MG/DL) 15 Creatinine (0.52 - 1.04 MG/DL) 0.70 Glomerular Filtr Rate > 60 Glucose (74 - 106 MG/DL) 131 H POC Glucose (60 - 99 MG/DL) 191 H 132 H Calcium (8.4 - 10.2 MG/DL) 9.6 Laboratory Tests 07/02 1657 Coagulation Activated Coag Time (74 - 137 SEC) 103 Laboratory Tests 07/03 442 Hematology WBC (3.8 - 9.8 K/MM3) 10.6 H RBC (3.58 - 4.97 M/MM3) 4.58 Hgb (11.2 - 14.9 G/DL) 10.9 L Hct (33.2 - 43.5 %) 38.8 MCV (80.7 - 99.1 fL) 85 MCH (27.0 - 34.1 pg) 23.8 L MCHC (32.2 - 35.7 %) 28.1 L RDW (12.1 - 15.2 %) 16.2 H Plt Count (129 - 368 K/MM3) 346 MPV (7.4 - 10.4 fl) 10.4 Neut % (Auto) (43 - 75 %) 74.9 Lymph % (Auto) (14 - 44 %) 11.8 L Baca % (Auto) (4 - 13 %) 9.0 Eos % (Auto) (0 - 6 %) 2.8 Baso % (Auto) (0 - 2 %) 0.7 Neut # (Auto) (2.0 - 7.6 K/mm3) 7.91 H Lymph # (Auto) (1.0 - 3.8 K/mm3) 1.24 Baca # (Auto) (0.1 - 0.8 K/mm3) 0.95 H Eos # (Auto) (0.0 - 0.2 K/mm3) 0.30 H Baso # (Auto) (0.0 - 0.2 K/mm3) 0.07 Immature Gran % (0.0 - 2.0 %) 0.8 Nucleated RBC % (0 - 1.0 %) 0.0 Nucleated RBCs # (Man) (0.0 - 0.1 K/mm3) 0.00 Radiology data: Recent Impressions: RADIOLOGY - XR CHEST 1V 07/02 1835 Report Impression - Status: SIGNED Entered: 07/02/20191851 IMPRESSION: 1. Status post dual lead AICD without evidence o f acute complications. 2. Moderate cardiomegaly redemonstrated. 3. Moderate central pulmonary vascular congestio n appearing stable to slightly improved Impression By: ValenteEFSara Gonzalez MD Diagnosis, Assessment Plan Free Text DxA P Notes Free Text DxA P Notes: IMP: Acute pulmonary embolism Chronic systolic heart failure - volume overloa d. LVEF 25-29% by echo . on beta rocio, entresto. MAT DM DCMP NYHA III CHF REC: Continue diuresis with IV lasix. CTA chest to evaluate PE. AICD interrogation. at 1921 RPT #:[id number] END OF REPORT 2019-07-02 18:58:00-00:00 [facility] ([facility]) Hospitalist Progress Note REPORT#:[id number] REPORT STATUS: Signed DATE:07/02/19 TIME: 1857 PATIENT: BREA GILES UNIT #: [id number] [address] AGE: 73 SEX: F ATTEND: Nick Cabrera MD ADM AUTHOR: Dexter Beard MD * ALL edits or amendments must be made on the el [employer]/computer document * Subjective Chief Complaint: Patient feels well. Denies cp/sob. She's schedul ed for AICD placement today Review of Systems Constitutional: Reports: generalized weakness. Denies: chills, f ever, recent wt loss. Allergy/Immun: Denies: allergic reaction, hives, itching, rhino rrhea, sneezing. Eyes: Denies: redness, discharge, visual loss/blurred, itching, diplopia, eye pain. ENT: Denies: ear drainage, earache, hearing loss, shital al congestion, nose bleeding, sinus problem, throat pain. Respiratory: Reports: non productive cough, SOB. Denies: hemo ptysis, pleuritic pain. Cardiovascular: Reports: edema. Denies: chest pain, palpitations . GI: Denies: abdominal pain, anorexia, constipation, diarrhea, dysphagia, GERD, nausea, vomiting. : Reports: urgency. Denies: dysuria, flank pain, h ematuria. Musculoskeletal: Reports: arthritis, extremity pain, extremity sw elling, joint pain. Denies: joint swelling, lumbar pain, neck pain. Endocrine: Denies: cold intolerance, heat intolerance, poly dipsia, polyphagia, polyuria. Neuro: Denies: bladder dysfunction, bowel dysfunction, confusion, dizziness, gait problem, headache, numbness, slurred speech. Psych: Denies: agitation, anxiety, confusion, depressio n, insomnia, stress. All systems rev neg: except as marked Objective General VS/I O: Vital Signs: Date Time Temp Pulse Resp B/P B/P Pulse O2 O2 F low FiO2 Mean Ox Delivery Rate 07/02 0747 97.9 66 18 155/85 108.3 92 Room air 07/02 0457 97.9 59 16 132/75 94.0 96 07/02 0031 97.5 65 16 135/85 101.6 97 07/01 2013 97.9 73 17 118/76 90.1 98 24 hour I O ending at 0700: 07/02 0700 09/29 1900 Intake Total 350 740 Output Total Balance 350 740 Intake, Oral 350 740 Number Voids 2 6 Patient Weight Weight (lb): 230 Weight (oz): 6.13 Weight (kg): 104.500 Medications: Active Meds + DC'd Last 24 Hrs Furosemide 20 MG DAILY PO (CANr) Prednisone 20 MG DAILY PO Cefazolin Sodium 1,000 MG Q8H IV Sodium Chloride 10 ML Acetaminophen 650 MG Q6H PRN PRN PO (UNV) Hydrocodone Bitart/Acetaminophen 1 TAB Q4H PRN P RN PO Etomidate 0 .STK-MED ONE .ROUTE (DC) Etomidate 0 .STK-MED ONE .ROUTE (DC) Etomidate 0 .STK-MED ONE .ROUTE (DC) Midazolam HCl 0 .STK-MED ONE .ROUTE (DC) Bacitracin 0 .STK-MED ONE .ROUTE (DC) Lidocaine 0 .STK-MED ONE .ROUTE (DC) Furosemide 0 .STK-MED ONE .ROUTE (DC) Furosemide 0 .STK-MED ONE .ROUTE (DC) Lidocaine 0 .STK-MED ONE .ROUTE (DC) Sodium Chloride 500 ML .STK-MED ONE IV (DC) Iopamidol 0 .STK-MED ONE .ROUTE (DC) Fentanyl Citrate 0 .STK-MED ONE .ROUTE (DC) Midazolam HCl 0 .STK-MED ONE .ROUTE (DC) Sodium Chloride 500 ML .STK-MED ONE IV (DC) Bacitracin 0 .STK-MED ONE .ROUTE (DC) Cefazolin Sodium 0 .STK-MED ONE .ROUTE (DC) Furosemide 40 MG DAILY PO Potassium Chloride 20 MEQ DAILY PO Spironolactone 25 MG DAILY PO Metformin HCl 500 MG BID MEALS PO (DA) Duloxetine HCl 60 MG BID PO Pantoprazole 40 MG DAILY PO Sacubitril/Valsartan 1 TAB DAILY PO Metoprolol Tartrate 5 MG Q6H PRN PRN IV Acetaminophen 1,000 MG Q6H PRN PRN PO (DCr) Melatonin 6 MG BEDTIME PRN PO Ondansetron HCl 4 MG Q6H PRN PRN IV Aspirin 81 MG DAILY PO Carvedilol 6.25 MG Q12HR PO Insulin Human Lispro MEDIUM DOSE SLIDING SCALE AC HS SUBQ Dextrose/Water 12.5 GM ASDIR PRN IV Dextrose/Water 25 GM ASDIR PRN IV Hydralazine HCl 10 MG Q6H PRN PRN IV Physical Exam General appearance: alert, awake Head/Eyes: atraumatic, clear cornea, normal conj unctiva/sclera, PERRL ENT: moist mucosal membranes, normal pharynx Neck: non-tender, supple/no meningismus Cardiovascular: irregularly irregular Respiratory: aerating well, clear to auscultatio n, symmetric expansion, no distress Abdomen: obese, non-tender, normal bowel sounds, soft, no distention, no guarding Genitourinary: no lee Rectal: not indicated Extremities: moves all, no clubbing, no cyanosis , mild pitting edema in LE. Musculoskeletal: normal inspection, no muscle sp asm Neuro/DYE BLENDER: alert, oriented X 3, normal speech, n o motor deficits Psychiatry: normal affect, normal judgment/insig ht, normal mood Results Findings/Data: Laboratory Tests 07/02 Chemistry POC Glucose (60 - 99 MG/DL) 134 H 142 H Laboratory Tests 07/02 165 Coagulation Activated Coag Time (74 - 137 SEC) 103 Radiology data: Recent Impressions: RADIOLOGY - XR CHEST 1V 07/02 1835 Report Impression - Status: SIGNED Entered: 07/02/2019 1852 IMPRESSION: 1. Status post dual lead AICD without evidence o f acute complications. 2. Moderate cardiomegaly redemonstrated. 3. Moderate central pulmonary vascular congestio n appearing stable to slightly improved Impression By: [email or web address] - Sara Hamlin MD Diagnosis, Assessment Plan Consultants: cardiology Free Text DxA P Notes Free Text DxA P Notes: - PULMONARY EMBOLISM. - CHF DUE TO SYSTOLIC DYSFUNCTION, acute on alliances consultant rosendo. 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 - ATRIAL FIBRILLATION; rate controlled. - EPISODES OF NSVT. - CKD, stage 3. - DM. - OSTEOARTHRITIS. - CHRONIC KNEE BURSITIS. - OBSTRUCTIVE SLEEP APNEA. - MORBID OBESITY. PLAN and HOSPTIAL COURSE: 06/25/2019: - Patient was transferred from [facility] last night and got admitted to ICU. - Will transfer her out of ICU to telemetry. - Continue Lovenox. - Resume home medications. - Cardiology consult. - Continue IV Lasix started by Ethnology Teacher. - Follow labs and CXR. 06/26/2019: - Continue Lovenox. - Will d/w Cardiology RE bridging to oral anti-c oagulant. - Continue IV lasix. - Monitor labs. - Will add laxative. - Will consult PT/OT. 06/27/2019: - Continue present treatment including IV Lasix. - Will d/w Cardiology RE AICD. 06/28/2019: - Continue present treatment including IV Lasix. - Patient agreeable for defibrillator. Will noti fy Dr Ham. - Continue Lovenox. - Will hold off on starting oral anticoagulation until after AICD placement. 06/29/2019: - Will change IV Lasix to PO. - Replace K+. - Continue Lovenox. - Awaiting patient's decision to proceed with AI CD. 06/30/2019: - Patient is stable. - PO Lasix. - Continue Levonox. - Patient has decided to proceed with AICD. 07/01/2019: - Patient is stable. - Continue Levonox. - Continue other treatment including Lasix. - For AICD insertion tomorrow. - Patient wants to go to SNF after DC. 07/02/2019 Pt feeling well, denies cp/s ob. She's diuresing well on lasix and aldactone. She 's scheduled for AICD placem ent later this PM. Her lovennox was discontinued , will check with dr Ham after AICD before restarting pt on anticoagulation. - d/w Dr Ham, he doubts b/l PEs and wants to confirmed with repeat CTA chest in AM Quality Medications Current medication review: I attest that the foregoing medication list in [facility] medical record is true, accurate, and complete to the best of my knowled ge. Advanced Care Plan 65 or Older Discussed with: patient Discussion included: code status (full code) at [address] [facility] #:[id number] END OF REPORT 2019-07-02 18:27:00-00:00 [id number] [place] [address] PATIENT NAME: BREA GILES ADMIT DATE : 06/25/19 ACCOUNT NO: [id number] ROOM NO: Z.365 AGE: 73 REPORT TYPE: CARDIAC CATHETERIZATION REPORT SEX: F ADMITTING PHYSICIAN:Dexter Beard MD ATTENDING PHYSICIAN:Dexter Beard MD PROCEDURE DATE: 07/02/2019 PROCEDURES: 1. Non-thoracotomy dual-chamber AICD placement. 2. Defibrillation threshold testing. PREOPERATIVE DIAGNOSES: 1. 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 2. Sick sinus syndrome. 3. [place] Heart Association class III congesti ve heart failure. POSTPROCEDURE DIAGNOSES: 1. 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 2. Sick sinus syndrome. 3. [place] Heart Association class III congesti ve heart failure. ANESTHESIA: Local anesthesia with sedation. STAVE HEWER: None. PROCEDURE DETAILS: After informed consent was ob tained explaining to the patient risks, benefits, and alternatives, thanh rubio was brought to the cardiac catheterization lab in the fasting posta bsorptive state. She was prepped and draped in sterile fashion. A left subclavian venogram was obtained via left peripheral IV. Access to left subclavia n vein was obtained using modified Seldinger technique with a micropunctur e kit. One wire was placed in low right atrium and secured proximally. Local a nesthesia was applied with 1% lidocaine, noted the wire prior to pocket placem ent. The pocket was created with sharp and blunt dissect ion as well as electrocautery. The wire was brought into pocket. A 7-Nauruan sheath was advanced over the wire and left subclavian vein. The dilator was removed and wire r etained. An additional wire was placed through the 6-Nauruan sheath. The sheath was removed, flushed, and reassembled. The pocket was flushed with antibiotic-containin g solution. A 7-Nauruan sheath was advanced over the original wire in left subc lavian vein. The dilator and wire were removed. An active fixation right vent ricular lead was advanced via the sheath under fluoroscopic guidance and secur ed in the right ventricular apex. Adequate pacing and sensing parameters wer e confirmed. The sheath was peeled away. The 6-Nauruan sheath was advanced ov er the remaining wire in left subclavian vein. The dilator and wire were remov ed. An active fixation right atrial lead was advanced via the sheath under fluoroscopic guidance and secured PATIENT NAME: BREA GILES in right atrial appendage. Adequate pacing and s ensing parameters were confirmed. The sheath was peeled away. The right atrial lead was secured in the pocket with 0 Ethibond suture around the sut ure sleeve. The pocket was again flushed with antibiotic-containing solutio n. Lavell was applied to the pocket. The leads were connected to the generator. The generator was placed in the pocket and secured in the pocket with 0 Ethi waggoner suture. The pocket was closed in 3 layers using 2-0 Vicryl for the subcutaneous layers and 4-0 Vicryl for the skin. Steri-Strips were applied to wound externally. The patient tolerated the procedure well with no complicatio ns. IMPLANT DATA: 1. Pulse generator: [employer] model [id number], s erial #[id number]. 2. Right atrial lead: [employer] model 2088TC/46, serial #[id number]. 3. Right ventricle: [employer] model 7122Q/58, ser ial #[id number]. STIMULATION THRESHOLD DATA: 1. Right atrium 4.3 millivol t P waves, threshold 0.5 volts at 0.5 milliseconds. Impedance 440 ohms. 2. Right ventricle greater than 12 millivolt R w aves, threshold 0.5 volts at 0.5 milliseconds. Impedance 660 ohms. HV impedan ce 42 ohms. RV to SVC and CAN. DEFIBRILLATION THRESHOLD TESTING: Induction with DC fibber, energy 25 joules, charge time 5.1 seconds, impedance 41 ohms. Puls e width 3.0/2.0. Result sinus rhythm. The patient tolerated the procedures wel l with no complications. CONCLUSIONS: 1. Successful non-thoracotomy dual-chamber AICD placement. 2. At least 10-joule defibrillation threshold ma rgin. 3. No complications. Dictated By: Alexandr Ham MD WT: CATH:YUDY/RAMEZ/FRACISCO Conf#: [id number]/DID#: [id number] Authenticated by Alexandr Ham MD On 07/04/20 07:03:04 AM at 0703 PATIENT NAME: BREA GILES 2019-07-02 07:29:00-00:00 [facility] ([facility] Cardiology Progress Note REPORT#:[id number] REPORT STATUS: Signed DATE:07/02/19 TIME: 728 PATIENT: BREA GILES UNIT #: [id number] ROOM/BED: [address] : 45 AGE: 73 SEX: F ATTEND: Nick Cabrera MD ADM AUTHOR: Alexandr Ham MD * ALL edits or amendments must be made on the Myrio/computer document * Subjective Chief Complaint: Dyspnea, CHF Patient reports: No: chest pain, palpitations, shortness of breat h. Objective General VS/I O: 24 hour I O ending at 0700: 07/02 0700 07/01 1900 Intake Total 350 740 Output Total Balance 350 740 Intake, Oral 350 740 Number Voids 2 6 Vital Signs: Date Time Temp Pulse Resp B/P B/P Pulse O2 O2 F low FiO2 Mean Ox Delivery Rate 07/02 0457 97.9 59 16 132/75 94.0 96 07/02 0031 97.5 65 16 135/85 101.6 97 07/01 2013 97.9 73 17 118/76 90.1 98 07/01 1553 97.7 70 18 103/67 78.8 98 Room air 07/01 1116 97.5 89 18 107/69 81.9 95 Room air 07/01 0731 97.9 81 18 122/75 90.6 92 Room air Patient Weight Weight (lb): 230 Weight (oz): 6.13 Weight (kg): 104.500 Medications: Active Meds + DC'd Last 24 Hrs Furosemide 40 MG DAILY PO Potassium Chloride 20 MEQ DAILY PO Spironolactone 25 MG DAILY PO Metformin HCl 500 MG BID MEALS PO Duloxetine HCl 60 MG BID PO Pantoprazole 40 MG DAILY PO Sacubitril/Valsartan 1 TAB DAILY PO Metoprolol Tartrate 5 MG Q6H PRN PRN IV Acetaminophen 1,000 MG Q6H PRN PRN PO Melatonin 6 MG BEDTIME PRN PO Ondansetron HCl 4 MG Q6H PRN PRN IV Aspirin 81 MG DAILY PO Carvedilol 6.25 MG Q12HR PO Insulin Human Lispro MEDIUM DOSE SLIDING SCALE AC HS SUBQ Dextrose/Water 12.5 GM ASDIR PRN IV Dextrose/Water 25 GM ASDIR PRN IV Hydralazine HCl 10 MG Q6H PRN PRN IV Physical Exam General appearance: alert, awake, oriented Head/Eyes: atraumatic, normocephalic ENT: moist mucosal membranes Neck: no bruit/NL carotids, no JVD, no masses or swelling Cardiovascular: CV assessment: regular rate and rhythm, BP puls es = bilaterally Murmur assessment: II/ JOVANA Respiratory: on oxygen, clear to auscultation, n o distress Abdomen: soft, non-tender, no mass/organomegaly (obese), no pulsatile mass Lower extremity: LE assessment: edema (trace), 2+ peripheral pul ses Musculoskeletal: full range of motion Neuro/DYE BLENDER: alert, oriented X 3, CN II-XII intact , no motor deficits Skin: dry, intact Psychiatry: normal affect, normal judgment/insig ht, normal mood, no hallucinations Results Findings/Data: Laboratory Tests 07/0248 2013 1549 1125 1115 Chemistry Sodium (137 - 145 MMOL/L) 137 Potassium (3.5 - 5.1 MMOL/L) 4.3 Chloride (98 - 107 MMOL/L) 102 Carbon Dioxide (22 - 30 MMOL/L) 30 Anion Gap (14 - 24 MMOL/L) 9 L BUN (7 - 17 MG/DL) 19 H Creatinine (0.52 - 1.04 MG/DL) 0.70 Glomerular Filtr Rate > 60 Glucose (74 - 106 MG/DL) 172 H POC Glucose (60 - 99 MG/DL) 134 H 142 H 156 H 1 84 H Calcium (8.4 - 10.2 MG/DL) 9.3 Diagnosis, Assessment Plan Free Text DxA P Notes Free Text DxA P Notes: IMP: Acute pulmonary embolism Chronic systolic heart failure - volume overloa d. LVEF 25-29% by echo . on beta rocio, entresto. MAT DM DCMP NYHA III CHF REC: Continue diuresis with IV lasix. AICD. Procedure, risks, benefits discussed. All questions answered, and she elects to proceed. at [address] [facility] #:[id number] END OF REPORT 2019-07-01 15:46:00-00:00 [facility] ([facility]) Hospitalist Progress Note REPORT#:[id number] REPORT STATUS: Signed DATE:07/01/19 TIME: 1546 PATIENT: BREA GILES UNIT #: [id number] ROOM/BED: [address] : 45 AGE: 73 SEX: F ATTEND: Nick Cabrera MD ADM AUTHOR: Nick Cabrera MD * ALL edits or amendments must be made on the Myrio/computer document * Subjective Chief Complaint: Patient feels well. Denies a ny complaint except urinary frequency due to lasix. Review of Systems Constitutional: Reports: generalized weakness. Denies: chills, f ever, recent wt loss. Allergy/Immun: Denies: allergic reaction, hives, itching, rhino rrhea, sneezing. Eyes: Denies: redness, discharge, visual loss/blurred, itching, diplopia, eye pain. ENT: Denies: ear drainage, earache, hearing loss, shital al congestion, nose bleeding, sinus problem, throat pain. Respiratory: Reports: non productive cough, SOB. Denies: hemo ptysis, pleuritic pain. Cardiovascular: Reports: edema. Denies: chest pain, palpitations . GI: Denies: abdominal pain, anorexia, constipation, diarrhea, dysphagia, GERD, nausea, vomiting. : Reports: urgency. Denies: dysuria, flank pain, h ematuria. Musculoskeletal: Reports: arthritis, extremity pain, extremity sw elling, joint pain. Denies: joint swelling, lumbar pain, neck pain. Endocrine: Denies: cold intolerance, heat intolerance, poly dipsia, polyphagia, polyuria. Neuro: Denies: bladder dysfunction, bowel dysfunction, confusion, dizziness, gait problem, headache, numbness, slurred speech. Psych: Denies: agitation, anxiety, confusion, depressio n, insomnia, stress. All systems rev neg: except as marked Objective General VS/I O: Vital Signs: Date Time Temp Pulse Resp B/P B/P Pulse O2 O2 F low FiO2 Mean Ox Delivery Rate 07/01 1116 97.5 89 18 107/69 81.9 95 Room air 07/01 0731 97.9 81 18 122/75 90.6 92 Room air 07/01 0459 98.2 73 17 126/58 81.0 96 Room air 06/30 2352 98.8 76 17 121/76 90.8 94 Room air 06/30 1941 98.4 52 17 108/69 82.3 96 Room air 06/30 1936 Nasal 2.184257 cannula 06/30 1625 97.9 75 18 109/71 83.5 97 Room air 24 hour I O ending at 0700: 07/01 0700 06/30 1900 Intake Total 850 720 Output Total 2200 Balance -1350 720 Intake, Oral 850 720 Number Voids 10 Output, Urine 2200 Patient Weight Weight (lb): 230 Weight (oz): 6.13 Weight (kg): 104.500 Medications: Active Meds + DC'd Last 24 Hrs Furosemide 40 MG DAILY PO Potassium Chloride 20 MEQ DAILY PO Spironolactone 25 MG DAILY PO Metformin HCl 500 MG BID MEALS PO Duloxetine HCl 60 MG BID PO Pantoprazole 40 MG DAILY PO Sacubitril/Valsartan 1 TAB DAILY PO Metoprolol Tartrate 5 MG Q6H PRN PRN IV Acetaminophen 1,000 MG Q6H PRN PRN PO Melatonin 6 MG BEDTIME PRN PO Ondansetron HCl 4 MG Q6H PRN PRN IV Aspirin 81 MG DAILY PO Carvedilol 6.25 MG Q12HR PO Insulin Human Lispro MEDIUM DOSE SLIDING SCALE AC HS SUBQ Dextrose/Water 12.5 GM ASDIR PRN IV Dextrose/Water 25 GM ASDIR PRN IV Hydralazine HCl 10 MG Q6H PRN PRN IV Physical Exam General appearance: obese, a lert, awake, oriented, no acute distress, pleasant, conversational Head/Eyes: atraumatic, clear cornea, normal conj unctiva/sclera, PERRL ENT: moist mucosal membranes, normal pharynx Neck: non-tender, supple/no meningismus Cardiovascular: irregularly irregular Respiratory: aerating well, clear to auscultatio n, symmetric expansion, no distress Abdomen: obese, non-tender, normal bowel sounds, soft, no distention, no guarding Genitourinary: no lee Rectal: not indicated Extremities: moves all, no clubbing, no cyanosis , mild pitting edema in LE. Musculoskeletal: normal inspection, no muscle sp asm Neuro/DYE BLENDER: alert, oriented X 3, normal speech, n o motor deficits Psychiatry: normal affect, normal judgment/insig ht, normal mood Results Findings/Data: Laboratory Tests 07/01 07/01 06/30 06/30 1125 0617 2151 1626 Chemistry Sodium (137 - 145 MMOL/L) 137 Potassium (3.5 - 5.1 MMOL/L) 4.3 Chloride (98 - 107 MMOL/L) 102 Carbon Dioxide (22 - 30 MMOL/L) 30 Anion Gap (14 - 24 MMOL/L) 9 L BUN (7 - 17 MG/DL) 19 H Creatinine (0.52 - 1.04 MG/DL) 0.70 Glomerular Filtr Rate > 60 Glucose (74 - 106 MG/DL) 172 H POC Glucose (60 - 99 MG/DL) 144 H 154 H 124 H Calcium (8.4 - 10.2 MG/DL) 9.3 Results: labs reviewed Diagnosis, Assessment Plan Consultants: cardiology Free Text DxA P Notes Free Text DxA P Notes: - PULMONARY EMBOLISM. - CHF DUE TO SYSTOLIC DYSFUNCTION, acute on alliances consultant rosendo. 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 - ATRIAL FIBRILLATION; rate controlled. - EPISODES OF NSVT. - CKD, stage 3. - DM. - OSTEOARTHRITIS. - CHRONIC KNEE BURSITIS. - OBSTRUCTIVE SLEEP APNEA. - MORBID OBESITY. PLAN and HOSPTIAL COURSE: 06/25/2019: - Patient was transferred from [facility] last night and got admitted to ICU. - Will transfer her out of ICU to telemetry. - Continue Lovenox. - Resume home medications. - Cardiology consult. - Continue IV Lasix started by Ethnology Teacher. - Follow labs and CXR. 06/26/2019: - Continue Lovenox. - Will d/w Cardiology RE bridging to oral anti-c oagulant. - Continue IV lasix. - Monitor labs. - Will add laxative. - Will consult PT/OT. 06/27/2019: - Continue present treatment including IV Lasix. - Will d/w Cardiology RE AICD. 06/28/2019: - Continue present treatment including IV Lasix. - Patient agreeable for defibrillator. Will noti fy Dr Ham. - Continue Lovenox. - Will hold off on starting oral anticoagulation until after AICD placement. 06/29/2019: - Will change IV Lasix to PO. - Replace K+. - Continue Lovenox. - Awaiting patient's decision to proceed with AI CD. 06/30/2019: - Patient is stable. - PO Lasix. - Continue Levonox. - Patient has decided to proceed with AICD. 07/01/2019: - Patient is stable. - Continue Levonox. - Continue other treatment including Lasix. - For AICD insertion tomorrow. - Patient wants to go to SNF after DC. Quality Medications Current medication review: I attest that the foregoing medication list in t he medical record is true, accurate, and complete to the best of my knowled ge. Advanced Care Plan 65 or Older Discussed with: patient Discussion included: code status (full code) BMI Screening > 25 or < 18.5 Patient's BMI: Current BMI: 46.5 BMI status/follow-up: abnl BMI, pt to F/U w/PCP (to discuss diet exercise) Tobacco Use/Counseling Tobacco use/counseling: non tobacco user, no cou nseling needed HTN Screening/Follow-up Last documented vitals: Last Documented: Result Date Time Pulse Ox 95 07/01 1116 B/P 107/69 07/01 1116 B/P Mean 81.9 07/01 1116 O2 Delivery Room air 07/01 1116 Temp 97.5 07/01 1116 Pulse 89 07/01 1116 Resp 18 07/01 1116 O2 Flow Rate 2.709877 06/30 1936 FiO2 32 06/28 0005 B/P assess/follow-up: normal B/P, no f/u req Blood pressure ranges/guide: Screening for Hypertension and follow up measure #317 Blood pressure parameters Normal B/P SBP </= 119 DBP </= 79 Pre-hypertensive SBP 120-139 DBP 80-89 Hypertensive SBP >/= 140 DBP >/= 90 Electronically Signed by Nick Cabrera MD on 07/02 at 0903 RPT #:[id number] END OF REPORT 2019-07-01 09:22:00-00:00 [id number] [address] PATIENT NAME: BREA GILES ADMIT DATE : 06/25/19 ACCOUNT NO: [id number] ROOM NO: [facility] AGE: 73 REPORT TYPE: ELECTROCARDIOGRAM SEX: F ADMITTING PHYSICIAN:Nick Cabrera MD ATTENDING PHYSICIAN:Nick Cabrera MD Order: [id number] Test Reason : PAFIB Test Date/Time Stamp: TueJul 01 2019 09:22:07 Blood Pressure : / mmHG Vent. Rate : 083 BPM Atrial Rate : 119 BPM P-R Int : 000 ms QRS Dur : 078 ms QT Int : 424 ms P-R-T Axes : 000 018 062 degree s QTc Int : 498 ms Sinus rhythm with premature ventricular or aberr antly conducted complexes Nonspecific T wave abnormality , probably digita lis effect Prolonged QT Abnormal ECG When compared with ECG of 30-JUN-2019 05:47, No significant change was found Confirmed by NORMAN TUCKER ([id number]) on 07/01/2019 10:37:40 AM Referred By: Nick Cabrera Confirmed by:NORMAN COPELAND at 1037 PATIENT NAME: BREA GILES 2019-07-01 08:25:00-00:00 [facility] ([facility]) Cardiology Progress Note REPORT#:[id number] REPORT STATUS: Signed DATE:07/01/19 TIME: 824 PATIENT: BREA GILES UNIT #: [id number] ROOM/BED: [address] : 45 AGE: 73 SEX: F ATTEND: Nick Cabrera MD ADM AUTHOR: Alexandr Ham MD * ALL edits or amendments must be made on the Myrio/computer document * Subjective Chief Complaint: Dyspnea, CHF Patient reports: No: chest pain, palpitations, shortness of breat h. Objective General VS/I O: 24 hour I O ending at 0700: 07/01 0700 06/30 1900 Intake Total 850 720 Output Total 2200 Balance -1350 720 Intake, Oral 850 720 Number Voids 10 Output, Urine 2200 Vital Signs: Date Time Temp Pulse Resp B/P B/P Pulse O2 O2 F low FiO2 Mean Ox Delivery Rate 07/01 0731 97.9 81 18 122/75 90.6 92 Room air 07/01 0459 98.2 73 17 126/58 81.0 96 Room air 06/30 2352 98.8 76 17 121/76 90.8 94 Room air 06/30 1941 98.4 52 17 108/69 82.3 96 Room air 06/30 1936 Nasal 2.938223 cannula 06/30 1625 97.9 75 18 109/71 83.5 97 Room air 06/30 1154 97.5 82 18 99/63 75.0 98 Room air Patient Weight Weight (lb): 230 Weight (oz): 6.13 Weight (kg): 104.500 Medications: Active Meds + DC'd Last 24 Hrs Furosemide 40 MG DAILY PO Potassium Chloride 20 MEQ DAILY PO Spironolactone 25 MG DAILY PO Metformin HCl 500 MG BID MEALS PO Duloxetine HCl 60 MG BID PO Pantoprazole 40 MG DAILY PO Sacubitril/Valsartan 1 TAB DAILY PO Metoprolol Tartrate 5 MG Q6H PRN PRN IV Acetaminophen 1,000 MG Q6H PRN PRN PO Melatonin 6 MG BEDTIME PRN PO Ondansetron HCl 4 MG Q6H PRN PRN IV Aspirin 81 MG DAILY PO Carvedilol 6.25 MG Q12HR PO Insulin Human Lispro MEDIUM DOSE SLIDING SCALE AC HS SUBQ Dextrose/Water 12.5 GM ASDIR PRN IV Dextrose/Water 25 GM ASDIR PRN IV Hydralazine HCl 10 MG Q6H PRN PRN IV Physical Exam General appearance: alert, awake, oriented Head/Eyes: atraumatic, normocephalic ENT: moist mucosal membranes Neck: no bruit/NL carotids, no JVD, no masses or swelling Cardiovascular: CV assessment: regular rate and rhythm, BP puls es = bilaterally Murmur assessment: II/ JOVANA Respiratory: on oxygen, clear to auscultation, n o distress Abdomen: soft, non-tender, no mass/organomegaly (obese), no pulsatile mass Lower extremity: LE assessment: edema (trace), 2+ peripheral pul ses Musculoskeletal: full range of motion Neuro/DYE BLENDER: alert, oriented X 3, CN II-XII intact , no motor deficits Skin: dry, intact Psychiatry: normal affect, normal judgment/insig ht, normal mood, no hallucinations Results Findings/Data: Laboratory Tests 07/01 06/30 06/30 06/30 0617 2151 1626 1212 Chemistry POC Glucose (60 - 99 MG/DL) 144 H 154 H 124 H 1 89 H Diagnosis, Assessment Plan Free Text DxA P Notes Free Text DxA P Notes: IMP: Acute pulmonary embolism Chronic systolic heart failure - volume overloa d. LVEF 25-29% by echo . on beta rocio, entresto. MAT DM DCMP REC: Continue diuresis with IV lasix. For AICD. Discussed with patient and primary ca rdiologist who agrees. at 1048 RPT #:[id number] END OF REPORT 2019-06-30 16:47:00-00:00 [facility] ([facility]) Hospitalist Progress Note REPORT#:[id number] REPORT STATUS: Signed DATE:06/30/19 TIME: 7 PATIENT: BREA GILES UNIT #: [id number] AGE: 73 SEX: F ATTEND: Nick Cabrera MD ADM AUTHOR: Nick Cabrera MD * ALL edits or amendments must be made on the [employer]/computer document * Subjective Chief Complaint: Patient feels well. Denies any discomfort. HPI: Patient is feeling well. She was pleasant and co nversational. Review of Systems Constitutional: Reports: generalized weakness. Denies: chills, f ever, recent wt loss. Allergy/Immun: Denies: allergic reaction, hives, itching, rhino rrhea, sneezing. Eyes: Denies: redness, discharge, visual loss/blurred, itching, diplopia, eye pain. ENT: Denies: ear drainage, earache, hearing loss, shital al congestion, nose bleeding, sinus problem, throat pain. Respiratory: Reports: non productive cough, SOB. Denies: hemo ptysis, pleuritic pain. Cardiovascular: Reports: edema. Denies: chest pain, palpitations . GI: Denies: abdominal pain, anorexia, constipation, diarrhea, dysphagia, GERD, nausea, vomiting. : Denies: dysuria, flank pain, frequency, hematuri a, nocturia, urgency. Musculoskeletal: Reports: arthritis, extremity pain, extremity sw elling, joint pain. Denies: joint swelling, lumbar pain, neck pain. Endocrine: Denies: cold intolerance, heat intolerance, poly dipsia, polyphagia, polyuria. Neuro: Denies: bladder dysfunction, bowel dysfunction, confusion, dizziness, gait problem, headache, numbness, slurred speech. Psych: Denies: agitation, anxiety, confusion, depressio n, insomnia, stress. All systems rev neg: except as marked Objective General VS/I O: Vital Signs: Date Time Temp Pulse Resp B/P B/P Pulse O2 O2 Flow FiO2 Mean Ox Delivery Rate 06/30 1625 97.9 75 18 109/71 83.5 97 Room air 06/30 1154 97.5 82 18 99/63 75.0 98 Room air 06/30 0800 97.7 67 18 123/78 93.1 99 Room air 06/30 0537 97.7 69 17 125/78 93.8 99 Room air 06/29 2356 98.1 80 17 114/73 86.5 99 Room air 06/29 1953 98.4 49 16 149/78 102.0 97 Room air 06/29 1739 98.2 56 17 111/66 80.9 93 Room air 24 hour I O ending at 0700: 06/30 0700 06/29 1900 Intake Total 100 250 Output Total Balance 100 250 Intake, Oral 100 250 Patient Weight Weight (lb): 230 Weight (oz): 6.13 Weight (kg): 104.500 Medications: Active Meds + DC'd Last 24 Hrs Furosemide 40 MG DAILY PO Potassium Chloride 20 MEQ DAILY PO Spironolactone 25 MG DAILY PO Potassium Chloride 40 MEQ NOW ONE PO (DC) Metformin HCl 500 MG BID MEALS PO Duloxetine HCl 60 MG BID PO Pantoprazole 40 MG DAILY PO Sacubitril/Valsartan 1 TAB DAILY PO Metoprolol Tartrate 5 MG Q6H PRN PRN IV Acetaminophen 1,000 MG Q6H PRN PRN PO Melatonin 6 MG BEDTIME PRN PO Ondansetron HCl 4 MG Q6H PRN PRN IV Aspirin 81 MG DAILY PO Carvedilol 6.25 MG Q12HR PO Furosemide 40 MG Q12H IV (DC) Insulin Human Lispro MEDIUM DOSE SLIDING SCALE AC HS SUBQ Dextrose/Water 12.5 GM ASDIR PRN IV Dextrose/Water 25 GM ASDIR PRN IV Hydralazine HCl 10 MG Q6H PRN PRN IV Physical Exam General appearance: alert, awake, oriented, no a cute distress, pleasant, conversational, mental status normal, no respira tory distress Head/Eyes: atraumatic, clear cornea, normal conj unctiva/sclera, PERRL ENT: moist mucosal membranes, normal pharynx Neck: non-tender, supple/no meningismus Cardiovascular: irregularly irregular Respiratory: aerating well, clear to auscultatio n, symmetric expansion, no distress Abdomen: obese, non-tender, normal bowel sounds, soft, no distention, no guarding Genitourinary: no lee Rectal: not indicated Extremities: moves all, no clubbing, no cyanosis , mild pitting edema in LE. Musculoskeletal: normal inspection, no muscle sp asm Neuro/DYE BLENDER: alert, oriented X 3, normal speech, n o motor deficits Psychiatry: normal affect, normal judgment/insig ht, normal mood Results Findings/Data: Laboratory Tests 06/30 06/29 0655 2126 Chemistry POC Glucose (60 - 99 MG/DL) 119 H 172 H Results: labs reviewed, vital signs stable Diagnosis, Assessment Plan Consultants: cardiology Free Text DxA P Notes Free Text DxA P Notes: - PULMONARY EMBOLISM. - CHF DUE TO SYSTOLIC DYSFUNCTION, acute on alliances consultant rosendo. 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 - ATRIAL FIBRILLATION; rate controlled. - EPISODES OF NSVT. - CKD, stage 3. - DM. - OSTEOARTHRITIS. - CHRONIC KNEE BURSITIS. - OBSTRUCTIVE SLEEP APNEA. - MORBID OBESITY. PLAN and HOSPTIAL COURSE: 06/25/2019: - Patient was transferred from [facility] last night and got admitted to ICU. - Will transfer her out of ICU to telemetry. - Continue Lovenox. - Resume home medications. - Cardiology consult. - Continue IV Lasix started by Ethnology Teacher. - Follow labs and CXR. 06/26/2019: - Continue Lovenox. - Will d/w Cardiology RE bridging to oral anti-c oagulant. - Continue IV lasix. - Monitor labs. - Will add laxative. - Will consult PT/OT. 06/27/2019: - Continue present treatment including IV Lasix. - Will d/w Cardiology RE AICD. 06/28/2019: - Continue present treatment including IV Lasix. - Patient agreeable for defibrillator. Will noti fy Dr Ham. - Continue Lovenox. - Will hold off on starting oral anticoagulation until after AICD placement. 06/29/2019: - Will change IV Lasix to PO. - Replace K+. - Continue Lovenox. - Awaiting patient's decision to proceed with AI CD. 06/30/2019: - Patient is stable. - PO Lasix. - Continue Levonox. - Patient has decided to proceed with AICD. Quality Medications Current medication review: I attest that the foregoing medication list in t he medical record is true, accurate, and complete to the best of my knowled ge. Advanced Care Plan 65 or Older Discussed with: patient Discussion included: code status (full code) BMI Screening > 25 or < 18.5 Patient's BMI: Current BMI: 46.5 BMI status/follow-up: abnl BMI, pt to F/U w/PCP (to discuss diet exercise) Tobacco Use/Counseling Tobacco use/counseling: non tobacco user, no cou nseling needed HTN Screening/Follow-up Last documented vitals: Last Documented: Result Date Time Pulse Ox 97 06/30 1625 B/P 109/71 06/30 1625 B/P Mean 83.5 06/30 1625 O2 Delivery Room air 06/30 1625 Temp 97.9 06/30 1625 Pulse 75 06/30 1625 Resp 18 06/30 1625 O2 Flow Rate [id number] 06/28 2339 FiO2 32 06/28 0005 B/P assess/follow-up: normal B/P, no f/u req Blood pressure ranges/guide: Screening for Hypertension and follow up measure #317 Blood pressure parameters Normal B/P SBP </= 119 DBP </= 79 Pre-hypertensive SBP 120-139 DBP 80-89 Hypertensive SBP >/= 140 DBP >/= 90 Electronically Signed by Nick Cabrera MD on 06/30 at 1824 RPT #:[id number] END OF REPORT 2019-06-30 12:10:00-00:00 [facility] ([facility]) Cardiology Progress Note REPORT#:[id number] REPORT STATUS: Signed DATE:06/30/19 TIME: 1210 PATIENT: BREA GILES UNIT #: [id number] ROOM/BED: [address] : 45 AGE: 73 SEX: F ATTEND: Nick Cabrera MD ADM AUTHOR: Norman Tucker MD * ALL edits or amendments must be made on the [employer]/computer document * Subjective Chief Complaint: Dyspnea, CHF Patient reports: Yes: fatigue, shortness of breath, swelling. No: chest pain, palpitations. Nursing reports: No: complaints. Objective General VS/I O: 24 hour I O ending at 0700: 06/30 0700 06/29 1900 Intake Total 100 250 Output Total Balance 100 250 Intake, Oral 100 250 Vital Signs: Date Time Temp Pulse Resp B/P B/P Pulse O2 O2 F low FiO2 Mean Ox Delivery Rate 06/30 1154 97.5 82 18 99/63 75.0 98 Room air 06/30 0800 97.7 67 18 123/78 93.1 99 Room air 06/30 0537 97.7 69 17 125/78 93.8 99 Room air 06/29 2356 98.1 80 17 114/73 86.5 99 Room air 06/29 1953 98.4 49 16 149/78 102.0 97 Room air 06/29 1739 98.2 56 17 111/66 80.9 93 Room air Patient Weight Weight (lb): 230 Weight (oz): 6.13 Weight (kg): 104.500 Medications: Active Meds + DC'd Last 24 Hrs Furosemide 40 MG DAILY PO Potassium Chloride 20 MEQ DAILY PO Spironolactone 25 MG DAILY PO Potassium Chloride 40 MEQ NOW ONE PO (DC) Metformin HCl 500 MG BID MEALS PO Duloxetine HCl 60 MG BID PO Pantoprazole 40 MG DAILY PO Sacubitril/Valsartan 1 TAB DAILY PO Metoprolol Tartrate 5 MG Q6H PRN PRN IV Acetaminophen 1,000 MG Q6H PRN PRN PO Melatonin 6 MG BEDTIME PRN PO Ondansetron HCl 4 MG Q6H PRN PRN IV Aspirin 81 MG DAILY PO Carvedilol 6.25 MG Q12HR PO Furosemide 40 MG Q12H IV (DC) Insulin Human Lispro MEDIUM DOSE SLIDING SCALE AC HS SUBQ Dextrose/Water 12.5 GM ASDIR PRN IV Dextrose/Water 25 GM ASDIR PRN IV Hydralazine HCl 10 MG Q6H PRN PRN IV Physical Exam General appearance: alert, awake, oriented, no a cute distress, pleasant, conversational, mental status normal, no respira tory distress Head/Eyes: atraumatic, normocephalic ENT: moist mucosal membranes Neck: no bruit/NL carotids, no JVD, no masses or swelling Cardiovascular: CV assessment: regular rate and rhythm, BP puls es = bilaterally Murmur assessment: II/ JOVANA Respiratory: on oxygen, clear to auscultation, n o distress Abdomen: soft, non-tender, no mass/organomegaly (obese), no pulsatile mass Lower extremity: LE assessment: edema (trace), 2+ peripheral pul ses Musculoskeletal: full range of motion Neuro/DYE BLENDER: alert, oriented X 3, CN II-XII intact , no motor deficits Skin: dry, intact Psychiatry: normal affect, normal judgment/insig ht, normal mood, no hallucinations Results Findings/Data: Laboratory Tests 06/30 06/29 0655 2126 Chemistry POC Glucose (60 - 99 MG/DL) 119 H 172 H Results: labs reviewed, vital signs stable, EKG personally reviewed, rhythm personally rev'd, x-ray personally reviewed, mague plasencia med profile rev'd EKG Interpretation: normal sinus rhythm Telemetry Interpretation: SR Diagnosis, Assessment Plan Code status: full code Plan discussed with: patient, family, patient ca re team, nurse Free Text DxA P Notes Free Text DxA P Notes: IMP: Acute pulmonary embolism Chronic systolic heart failure - volume overloa d. LVEF 25-29% by echo . on beta rocio, entresto. MAT DM DCMP REC: Continue diuresis with IV lasix. AICD Tuesday. Electronically Signed by Norman Tucker MD on 0 06/30/19 at 1215 RPT #:[id number] END OF REPORT 2019-06-30 05:47:00-00:00 [id number] [place] [address] PATIENT NAME: TAVIA GILESJEFF Robledo ADMIT DATE : 06/25/19 ACCOUNT NO: [id number] ROOM NO: .[facility] AGE: 73 REPORT TYPE: ELECTROCARDIOGRAM SEX: F ADMITTING PHYSICIAN:Nick Cabrera MD ATTENDING PHYSICIAN:Nick Cabrera MD Order: [id number] Test Reason : PAFIB Test Date/Time Stamp: TueJun 30 2019 05:47:31 Blood Pressure : / mmHG Vent. Rate : 074 BPM Atrial Rate : 076 BPM P-R Int : 112 ms QRS Dur : 084 ms QT Int : 462 ms P-R-T Axes : 054 024 049 degree s QTc Int : 512 ms Sinus rhythm with premature atrial complexes and premature ventricular complexes or fusion complexes Nonspecific T wave abnormality Prolonged QT Abnormal ECG When compared with ECG of 28-JUN-2019 03:51, fusion complexes are now present premature ventricular complexes are now present premature atrial complexes are now present Nonspecific T wave abnormality has repla prisca inverted T waves in Anterior leads Confirmed by NORMAN TUCKER ([id number]) on 06/30/2019 8:51:57 AM Referred By: Viviana Thompson Confirmed by:NORMAN LAGOS I at 0857 PATIENT NAME: JORGE ALBERTO GARCIATAVIAJEFF Robledo 2019-06-29 14:38:00-00:00 [facility] ([facility]) Hospitalist Progress Note REPORT#:[id number] REPORT STATUS: Signed DATE:06/29/19 TIME: 1438 PATIENT: BREA GILES UNIT #: [id number] ROOM/BED: [address] : [address] AGE: 73 SEX: F ATTEND: Nick Cabrera MD ADM AUTHOR: Nick Cabrera MD * ALL edits or amendments must be made on the [employer]/computer document * Subjective Chief Complaint: Patient reports feeling well. Denies any complai nt. Had a slight episode of dyspnea when she walked with PT earlier. HPI: Patient is feeling better. Review of Systems Constitutional: Reports: generalized weakness. Denies: chills, f ever, recent wt loss. Allergy/Immun: Denies: allergic reaction, hives, itching, rhino rrhea, sneezing. Eyes: Denies: redness, discharge, visual loss/blurred, itching, diplopia, eye pain. ENT: Denies: ear drainage, earache, hearing loss, shital al congestion, nose bleeding, sinus problem, throat pain. Respiratory: Reports: non productive cough, SOB. Denies: hemo ptysis, pleuritic pain. Cardiovascular: Reports: edema. Denies: chest pain, palpitations . GI: Reports: constipation. Denies: abdominal pain, a norexia, diarrhea, dysphagia, GERD, nausea, vomiting. : Denies: dysuria, flank pain, frequency, hematuri a, nocturia, urgency. Musculoskeletal: Reports: arthritis, extremity pain, extremity sw elling, joint pain. Denies: joint swelling, lumbar pain, neck pain. Endocrine: Denies: cold intolerance, heat intolerance, poly dipsia, polyphagia, polyuria. Neuro: Denies: bladder dysfunction, bowel dysfunction, confusion, dizziness, gait problem, headache, numbness, slurred speech. Psych: Denies: agitation, anxiety, confusion, depressio n, insomnia, stress. All systems rev neg: except as marked Objective General VS/I O: Vital Signs: Date Time Temp Pulse Resp B/P B/P Pulse O2 O2 F low FiO2 Mean Ox Delivery Rate 06/29 1953 98.4 49 16 149/78 102.0 97 Room air 06/29 1739 98.2 56 17 111/66 80.9 93 Room air 06/29 1138 98.2 72 17 108/72 84.0 97 Room air 06/29 0826 98.2 71 20 129/81 97.0 96 Room air 06/29 0450 98.2 79 17 134/71 92.4 95 Room air 06/28 2355 98.2 82 18 120/83 95.6 99 Room air 06/28 2339 Nasal 2.148193 cannula 24 hour I O ending at 0700: 06/29 0700 06/28 1900 Intake Total 220 200 Output Total Balance 220 200 Intake, Oral 220 200 Number Voids 9 Patient 230 lb Weight Weight Bed scale Measurement Method Patient Weight Weight (lb): 230 Weight (oz): 6.13 Weight (kg): 104.500 Medications: Active Meds + DC'd Last 24 Hrs Furosemide 40 MG DAILY PO Potassium Chloride 20 MEQ DAILY PO Spironolactone 25 MG DAILY PO Potassium Chloride 40 MEQ NOW ONE PO (DC) Metformin HCl 500 MG BID MEALS PO Duloxetine HCl 60 MG BID PO Pantoprazole 40 MG DAILY PO Sacubitril/Valsartan 1 TAB DAILY PO Metoprolol Tartrate 5 MG Q6H PRN PRN IV Acetaminophen 1,000 MG Q6H PRN PRN PO Melatonin 6 MG BEDTIME PRN PO Ondansetron HCl 4 MG Q6H PRN PRN IV Aspirin 81 MG DAILY PO Carvedilol 6.25 MG Q12HR PO Mupirocin 1 APPLIC BID NASAL (DC) Furosemide 40 MG Q12H IV (DC) Insulin Human Lispro MEDIUM DOSE SLIDING SCALE AC HS SUBQ Dextrose/Water 12.5 GM ASDIR PRN IV Dextrose/Water 25 GM ASDIR PRN IV Enoxaparin Sodium 100 MG 0600,1800 SUBQ (DC) Hydralazine HCl 10 MG Q6H PRN PRN IV Physical Exam General appearance: agitated , obese, alert, awake, oriented, no acute distress, pleasant Head/Eyes: atraumatic, clear cornea, normal conj unctiva/sclera, PERRL ENT: moist mucosal membranes, normal pharynx Neck: non-tender, supple/no meningismus Cardiovascular: irregularly irregular Respiratory: aerating well, clear to auscultatio n, symmetric expansion, no distress Abdomen: obese, non-tender, normal bowel sounds, soft, no distention, no guarding Genitourinary: no lee Rectal: not indicated Extremities: moves all, no clubbing, no cyanosis , mild pitting edema in LE. Musculoskeletal: normal inspection, no muscle sp asm Neuro/DYE BLENDER: alert, oriented X 3, normal speech, n o motor deficits Psychiatry: normal affect, normal judgment/insig ht, normal mood Results Findings/Data: Laboratory Tests 06/29 06/29 06/29 1134 0635 0452 Chemistry Sodium (137 - 145 MMOL/L) 136 L Potassium (3.5 - 5.1 MMOL/L) 3.4 L Chloride (98 - 107 MMOL/L) 99 Carbon Dioxide (22 - 30 MMOL/L) 32 H Anion Gap (14 - 24 MMOL/L) 8 L BUN (7 - 17 MG/DL) 23 H Creatinine (0.52 - 1.04 MG/DL) 0.80 Glomerular Filtr Rate > 60 Glucose (74 - 106 MG/DL) 163 H POC Glucose (60 - 99 MG/DL) 155 H 129 H Calcium (8.4 - 10.2 MG/DL) 8.8 Laboratory Tests 06/29 0635 Hematology WBC (3.8 - 9.8 K/MM3) 10.8 H RBC (3.58 - 4.97 M/MM3) 4.46 Hgb (11.2 - 14.9 G/DL) 10.9 L Hct (33.2 - 43.5 %) 38.0 MCV (80.7 - 99.1 fL) 85 MCH (27.0 - 34.1 pg) 24.4 L MCHC (32.2 - 35.7 %) 28.7 L RDW (12.1 - 15.2 %) 15.9 H Plt Count (129 - 368 K/MM3) 383 H MPV (7.4 - 10.4 fl) 10.2 Neut % (Auto) (43 - 75 %) 75.5 H Lymph % (Auto) (14 - 44 %) 13.2 L Baca % (Auto) (4 - 13 %) 7.8 Eos % (Auto) (0 - 6 %) 2.1 Baso % (Auto) (0 - 2 %) 0.5 Neut # (Auto) (2.0 - 7.6 K/mm3) 8.11 H Lymph # (Auto) (1.0 - 3.8 K/mm3) 1.42 Baca # (Auto) (0.1 - 0.8 K/mm3) 0.84 H Eos # (Auto) (0.0 - 0.2 K/mm3) 0.23 H Baso # (Auto) (0.0 - 0.2 K/mm3) 0.05 Immature Gran % (0.0 - 2.0 %) 0.9 Nucleated RBC % (0 - 1.0 %) 0.0 Nucleated RBCs # (Man) (0.0 - 0.1 K/mm3) 0.00 Radiology data: Recent Impressions: RADIOLOGY - XR CHEST 1V 06/29 0722 Report Impression - Status: SIGNED Entered: 06/29/2019914 IMPRESSION: Stable findings of CHF. Impression By: [email or web address] - Gil Pope M.D. Diagnosis, Assessment Plan Consultants: cardiology Free Text DxA P Notes Free Text DxA P Notes: - PULMONARY EMBOLISM. - CHF DUE TO SYSTOLIC DYSFUNCTION, acute on alliances consultant rosendo. 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 - ATRIAL FIBRILLATION; rate controlled. - EPISODES OF NSVT. - CKD, stage 3. - DM. - OSTEOARTHRITIS. - CHRONIC KNEE BURSITIS. - OBSTRUCTIVE SLEEP APNEA. - MORBID OBESITY. PLAN and HOSPTIAL COURSE: 06/25/2019: - Patient was transferred from [facility] last night and got admitted to ICU. - Will transfer her out of ICU to telemetry. - Continue Lovenox. - Resume home medications. - Cardiology consult. - Continue IV Lasix started by Ethnology Teacher. - Follow labs and CXR. 06/26/2019: - Continue Lovenox. - Will d/w Cardiology RE bridging to oral anti-c oagulant. - Continue IV lasix. - Monitor labs. - Will add laxative. - Will consult PT/OT. 06/27/2019: - Continue present treatment including IV Lasix. - Will d/w Cardiology RE AICD. 06/28/2019: - Continue present treatment including IV Lasix. - Patient agreeable for defibrillator. Will noti marcial Ham. - Continue Lovenox. - Will hold off on starting oral anticoagulation until after AICD placement. 06/29/2019: - Will change IV Lasix to PO. - Replace K+. - Continue Lovenox. - Awaiting patient's decision to proceed with AI CD. Quality Medications Current medication review: I attest that the foregoing medication list in t he medical record is true, accurate, and complete to the best of my knowled ge. Advanced Care Plan 65 or Older Discussed with: patient Discussion included: code status (full code) BMI Screening > 25 or < 18.5 BMI status/follow-up: abnl BMI, pt to F/U w/PCP (to discuss diet exercise) Tobacco Use/Counseling Tobacco use/counseling: non tobacco user, no cou nseling needed HTN Screening/Follow-up B/P assess/follow-up: normal B/P, no f/u req Electronically Signed by Nick Cabrear MD on 06/29 at 2018 RPT #:[id number] END OF REPORT 2019-06-29 06:08:00-00:00 [facility] ([facility]) Cardiology Progress Note REPORT#:[id number] REPORT STATUS: Signed DATE:06/29/19 TIME: 06 PATIENT: BREA GILES UNIT #: [id number] ROOM/BED: [address] : 45 AGE: 73 SEX: F ATTEND: Nick Cabrera MD ADM AUTHOR: Alexandr Ham MD * ALL edits or amendments must be made on the [employer]/computer document * Subjective Chief Complaint: Dyspnea Patient reports: No: chest pain, palpitations, shortness of breat h. Objective General VS/I O: 24 hour I O ending at 0700: 06/29 0700 06/28 1900 Intake Total 220 200 Output Total Balance 220 200 Intake, Oral 220 200 Number Voids 6 Patient 104.5 kg Weight Weight Bed scale Measurement Method Vital Signs: Date Time Temp Pulse Resp B/P B/P Pulse O2 O2 F low FiO2 Mean Ox Delivery Rate 06/29 0450 98.2 79 17 134/71 92.4 95 Room air 06/285 98.2 82 18 120/83 95.6 99 Room air 06/28 2339 Nasal 2.484642 cannula 06/28 2012 98.1 84 17 110/71 83.7 98 Room air 06/28 1719 97.5 74 18 105/68 80.4 99 Nasal 3.0 93047 cannula 06/28 1126 98.2 71 18 110/68 81.7 96 Room air 06/28 0849 97.7 75 20 122/78 92.6 96 Room air 06/28 0700 99 Patient Weight Weight (lb): 230 Weight (oz): 6.13 Weight (kg): 104.500 Medications: Active Meds + DC'd Last 24 Hrs Metformin HCl 500 MG BID MEALS PO Duloxetine HCl 60 MG BID PO Pantoprazole 40 MG DAILY PO Sacubitril/Valsartan 1 TAB DAILY PO Metoprolol Tartrate 5 MG Q6H PRN PRN IV Acetaminophen 1,000 MG Q6H PRN PRN PO Melatonin 6 MG BEDTIME PRN PO Ondansetron HCl 4 MG Q6H PRN PRN IV Aspirin 81 MG DAILY PO Carvedilol 6.25 MG Q12HR PO Mupirocin 1 APPLIC BID NASAL Furosemide 40 MG Q12H IV Insulin Human Lispro MEDIUM DOSE SLIDING SCALE AC HS SUBQ Dextrose/Water 12.5 GM ASDIR PRN IV Dextrose/Water 25 GM ASDIR PRN IV Enoxaparin Sodium 100 MG 0600,1800 SUBQ Hydralazine HCl 10 MG Q6H PRN PRN IV Physical Exam General appearance: alert, awake, oriented Head/Eyes: atraumatic, normocephalic ENT: moist mucosal membranes Neck: no JVD Cardiovascular: CV assessment: regular rate and rhythm Respiratory: clear to auscultation, no distress Lower extremity: LE assessment: no edema Musculoskeletal: full range of motion Neuro/DYE BLENDER: alert, oriented X 3, CN II-XII intact Skin: dry, intact Psychiatry: normal affect, normal judgment/insig ht, normal mood Results Findings/Data: Laboratory Tests 06/28 1711 1124 Chemistry POC Glucose (60 - 99 MG/DL) 130 H 150 H 147 H Diagnosis, Assessment Plan Free Text DxA P Notes Free Text DxA P Notes: IMP: Acute pulmonary embolism Chronic systolic heart failure - volume overloa d. LVEF 25-29% by echo . on beta rocio, entresto. MAT DM REC: Continue diuresis with IV lasix. Recommend AICD. at 0819 RPT #:[id number] END OF REPORT 2019-06-28 14:45:00-00:00 [facility] ([facility]) Hospitalist Progress Note REPORT#:[id number] REPORT STATUS: Signed DATE:06/28/19 TIME: 1445 PATIENT: BREA GILES UNIT #: [id number] ROOM/BED: [address] : 45 AGE: 73 SEX: F ATTEND: Nick Cabrera MD ADM AUTHOR: Nick Cabrera MD * ALL edits or amendments must be made on the [employer] document * Subjective Chief Complaint: Patient reports feeling well. HPI: Patient is feeling well. She looks comfortable a nd reports that her cough has improved. She's eating and sleeping well; she al so moved her bowel yesterday. Patient indicated that after discussing with her family, she's agreeable to proceed with AICD. Patient reports: No: complaints. Review of Systems Constitutional: Reports: generalized weakness. Denies: chills, f ever, recent wt loss. Allergy/Immun: Denies: allergic reaction, hives, itching, rhino rrhea, sneezing. Eyes: Denies: redness, discharge, visual loss/blurred, itching, diplopia, eye pain. ENT: Denies: ear drainage, earache, hearing loss, shital al congestion, nose bleeding, sinus problem, throat pain. Respiratory: Reports: non productive cough, SOB. Denies: hemo ptysis, pleuritic pain. Cardiovascular: Reports: edema. Denies: chest pain, palpitations . GI: Reports: constipation. Denies: abdominal pain, a norexia, diarrhea, dysphagia, GERD, nausea, vomiting. : Denies: dysuria, flank pain, frequency, hematuri a, nocturia, urgency. Musculoskeletal: Reports: arthritis, extremity pain, extremity sw elling, joint pain. Denies: joint swelling, lumbar pain, neck pain. Endocrine: Denies: cold intolerance, heat intolerance, poly dipsia, polyphagia, polyuria. Neuro: Denies: bladder dysfunction, bowel dysfunction, confusion, dizziness, gait problem, headache, numbness, slurred speech. Psych: Denies: agitation, anxiety, confusion, depressio n, insomnia, stress. All systems rev neg: except as marked Objective General VS/I O: Vital Signs: Date Time Temp Pulse Resp B/P B/P Pulse O2 O2 F low FiO2 Mean Ox Delivery Rate 06/28 1126 98.2 71 18 110/68 81.7 96 Room air 06/28 0849 97.7 75 20 122/78 92.6 96 Room air 06/28 0700 99 06/28 0501 97.5 43 17 118/74 88.4 100 Room air 06/28 0005 65 25 100 3.387220 32 06/27 2356 98.4 75 17 117/71 86.7 94 Room air 06/27 2020 97.9 65 17 122/79 93.0 95 Room air 06/27 1617 97.5 67 18 111/77 88.4 100 Room air 24 hour I O ending at 0700: 06/28 0700 06/27 1900 Intake Total 200 240 Output Total 250 Balance 200 -10 Intake, Oral 200 240 Number 1 Bowel Movements Number Voids 2 Output, Urine 250 Patient 230 lb 230 lb Weight Weight Bed scale Measurement Method Patient Weight Weight (lb): 230 Weight (oz): 6.13 Weight (kg): 104.500 Medications: Active Meds + DC'd Last 24 Hrs Metformin HCl 500 MG BID MEALS PO Duloxetine HCl 60 MG BID PO Pantoprazole 40 MG DAILY PO Sacubitril/Valsartan 1 TAB DAILY PO Metoprolol Tartrate 5 MG Q6H PRN PRN IV Acetaminophen 1,000 MG Q6H PRN PRN PO Melatonin 6 MG BEDTIME PRN PO Ondansetron HCl 4 MG Q6H PRN PRN IV Aspirin 81 MG DAILY PO Carvedilol 6.25 MG Q12HR PO Mupirocin 1 APPLIC BID NASAL Furosemide 40 MG Q12H IV Insulin Human Lispro MEDIUM DOSE SLIDING SCALE AC HS SUBQ Dextrose/Water 12.5 GM ASDIR PRN IV Dextrose/Water 25 GM ASDIR PRN IV Enoxaparin Sodium 100 MG 0600,1800 SUBQ Hydralazine HCl 10 MG Q6H PRN PRN IV Physical Exam General appearance: obese, a lert, awake, oriented, no acute distress, pleasant, conversational, mental status normal, no respira tory distress Head/Eyes: atraumatic, clear cornea, normal conj unctiva/sclera, PERRL ENT: moist mucosal membranes, normal pharynx Neck: non-tender, supple/no meningismus Cardiovascular: irregularly irregular Respiratory: aerating well, clear to auscultatio n, symmetric expansion, no distress Abdomen: obese, non-tender, normal bowel sounds, soft, no distention, no guarding Genitourinary: no lee Rectal: not indicated Extremities: moves all, no clubbing, no cyanosis , mild pitting edema in LE. Musculoskeletal: normal inspection, no muscle sp asm Neuro/DYE BLENDER: alert, oriented X 3, normal speech, n o motor deficits Psychiatry: normal affect, normal judgment/insig ht, normal mood Results Findings/Data: Laboratory Tests 06/28 06/28 06/27 1124 0502 2020 Chemistry POC Glucose (60 - 99 MG/DL) 147 H 154 H 198 H Results: no new labs, vital signs stable , rhythm personally rev'd (telemetry), current med profile rev'd Diagnosis, Assessment Plan Orders: Procedure Date/time Status GAIT TRAINING 15 MIN 20417 06/28 1403 Active FUNCTIONAL TRAINING 15 M 67586 06/28 1403 Activ e CPAP/BIPAP ADULT/CHILD 06/28 0008 Active Consultants: cardiology Plan discussed with: patient Free Text DxA P Notes Free Text DxA P Notes: - PULMONARY EMBOLISM. - CHF DUE TO SYSTOLIC DYSFUNCTION, acute on alliances consultant rosendo. 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 - ATRIAL FIBRILLATION; rate controlled. - EPISODES OF NSVT. - CKD, stage 3. - DM. - OSTEOARTHRITIS. - CHRONIC KNEE BURSITIS. - OBSTRUCTIVE SLEEP APNEA. - MORBID OBESITY. PLAN and HOSPTIAL COURSE: 06/25/2019: - Patient was transferred from [facility] last night and got admitted to ICU. - Will transfer her out of ICU to telemetry. - Continue Lovenox. - Resume home medications. - Cardiology consult. - Continue IV Lasix started by Ethnology Teacher. - Follow labs and CXR. 06/26/2019: - Continue Lovenox. - Will d/w Cardiology RE bridging to oral anti-c oagulant. - Continue IV lasix. - Monitor labs. - Will add laxative. - Will consult PT/OT. 06/27/2019: - Continue present treatment including IV Lasix. - Will d/w Cardiology RE AICD. 06/28/2019: - Continue present treatment including IV Lasix. - Patient agreeable for defibrillator. Will noti fy Dr Ham. - Continue Lovenox. - Will hold off on starting oral anticoagulation until after AICD placement. Quality Medications Current medication review: I attest that the foregoing medication list in t he medical record is true, accurate, and complete to the best of my knowled ge. Advanced Care Plan 65 or Older Discussed with: patient Discussion included: code status (full code) BMI Screening > 25 or < 18.5 Patient's BMI: Current BMI: 46.5 BMI status/follow-up: abnl BMI, pt to F/U w/PCP (to discuss diet exercise) Tobacco Use/Counseling Tobacco use/counseling: non tobacco user, no cou nseling needed HTN Screening/Follow-up Last documented vitals: Last Documented: Result Date Time Pulse Ox 96 06/28 1126 B/P 110/68 06/28 1126 B/P Mean 81.7 06/28 1126 O2 Delivery Room air 06/28 1126 Temp 98.2 06/28 1126 Pulse 71 06/28 1126 Resp 18 06/28 1126 FiO2 32 06/28 0005 O2 Flow Rate 3.550327 06/28 0005 B/P assess/follow-up: normal B/P, no f/u req Blood pressure ranges/guide: Screening for Hypertension and follow up measure #317 Blood pressure parameters Normal B/P SBP </= 119 DBP </= 79 Pre-hypertensive SBP 120-139 DBP 80-89 Hypertensive SBP >/= 140 DBP >/= 90 Electronically Signed by Nick Cabrera MD on 06/28 at 1723 RPT #:[id number] END OF REPORT 2019-06-28 06:21:00-00:00 [facility] ([facility] Cardiology Progress Note REPORT#:[id number] REPORT STATUS: Signed DATE:06/28/19 TIME: 620 PATIENT: BREA GILES UNIT #: [id number] ROOM/BED: [address] : 45 AGE: 73 SEX: F ATTEND: Nick Cabrera MD ADM AUTHOR: Alexandr Ham MD * ALL edits or amendments must be made on the [employer] document * Subjective Chief Complaint: Dyspnea Patient reports: No: chest pain, palpitations, shortness of breat h. Objective General VS/I O: 24 hour I O ending at 0700: 06/28 0700 06/27 1900 Intake Total 200 240 Output Total 250 Balance 200 -10 Intake, Oral 200 240 Number 1 Bowel Movements Output, Urine 250 Patient 104.5 kg 104.326 kg Weight Weight Bed scale Measurement Method Vital Signs: Date Time Temp Pulse Resp B/P B/P Pulse O2 O2 F low FiO2 Mean Ox Delivery Rate 06/28 0501 97.5 43 17 118/74 88.4 100 Room air 06/28 0005 65 25 100 3.078775 32 06/27 2356 98.4 75 17 117/71 86.7 94 Room air 06/27 2020 97.9 65 17 122/79 93.0 95 Room air 06/27 1617 97.5 67 18 111/77 88.4 100 Room air 06/27 1126 97.9 69 18 100/59 72.4 93 Room air 06/27 0700 97.9 53 18 134/55 81.1 94 Room air Patient Weight Weight (lb): 230 Weight (oz): 6.13 Weight (kg): 104.500 Medications: Active Meds + DC'd Last 24 Hrs Metformin HCl 500 MG BID MEALS PO Duloxetine HCl 60 MG BID PO Pantoprazole 40 MG DAILY PO Sacubitril/Valsartan 1 TAB DAILY PO Metoprolol Tartrate 5 MG Q6H PRN PRN IV Acetaminophen 1,000 MG Q6H PRN PRN PO Melatonin 6 MG BEDTIME PRN PO Ondansetron HCl 4 MG Q6H PRN PRN IV Aspirin 81 MG DAILY PO Carvedilol 6.25 MG Q12HR PO Mupirocin 1 APPLIC BID NASAL Furosemide 40 MG Q12H IV Insulin Human Lispro MEDIUM DOSE SLIDING SCALE AC HS SUBQ Dextrose/Water 12.5 GM ASDIR PRN IV Dextrose/Water 25 GM ASDIR PRN IV Enoxaparin Sodium 100 MG 0600,1800 SUBQ Hydralazine HCl 10 MG Q6H PRN PRN IV Physical Exam General appearance: alert, awake, oriented Head/Eyes: atraumatic, normocephalic ENT: moist mucosal membranes Neck: no JVD Cardiovascular: CV assessment: regular rate and rhythm Respiratory: clear to auscultation, no distress Lower extremity: LE assessment: no edema Musculoskeletal: full range of motion Neuro/DYE BLENDER: alert, oriented X 3, CN II-XII intact Skin: dry, intact Psychiatry: normal affect, normal judgment/insig ht, normal mood Results Findings/Data: Laboratory Tests 06/27 1613 1124 Chemistry POC Glucose (60 - 99 MG/DL) 198 H 131 H 164 H Diagnosis, Assessment Plan Free Text DxA P Notes Free Text DxA P Notes: IMP: Acute pulmonary embolism Chronic systolic heart failure - volume overloa d. LVEF 25-29% by echo . on beta rocio, entresto. MAT DM REC: Continue diuresis with IV lasix. Recommend AICD. at 0550 RPT #:[id number] END OF REPORT 2019-06-28 03:51:00-00:00 [id number] [place] [address] PATIENT NAME: BREA GILES ADMIT DATE : 06/25/19 ACCOUNT NO: [id number] ROOM NO: [facility] AGE: 73 REPORT TYPE: ELECTROCARDIOGRAM SEX: F ADMITTING PHYSICIAN:Nick Cabrera MD ATTENDING PHYSICIAN:Nick Cabrera MD Order: [id number] Test Reason : PAFIB Test Date/Time Stamp: TueJun 28 2019 03:51:51 Blood Pressure : / mmHG Vent. Rate : 081 BPM Atrial Rate : 127 BPM P-R Int : 000 ms QRS Dur : 078 ms QT Int : 424 ms P-R-T Axes : 000 001 042 degree s QTc Int : 492 ms Sinus rhythm with frequent with premature ventri cular or aberrantly conducted complexes Cannot rule out Anterior infarct (cited on or be fore 27-JUN-2019) Abnormal ECG When compared with ECG of 27-JUN-2019 03:50, Nonspecific T wave abnormality no longer evident in Inferior leads Confirmed by NORMAN TUCKER ([id number]) on 06/28/2019 7:44:38 AM Referred By: Nick Cabrera Confirmed by:NORMAN COPELAND at 0744 PATIENT NAME: BREA GILES 2019-06-27 15:00:00-00:00 [facility] ([facility] Hospitalist Progress Note REPORT#:[id number] REPORT STATUS: Signed DATE:06/27/19 TIME: 1500 PATIENT: BREA GILES UNIT #: [id number] ROOM/BED: [address] : 45 AGE: 73 SEX: F ATTEND: Nick Cabrera MD ADM AUTHOR: Nick Cabrera MD * ALL edits or amendments must be made on the [employer] document * Subjective Chief Complaint: Patient reports feeling better. HPI: Patient reports feeling better. She said that he r cough and dyspnea have improved. Patient walked with PT; she had a good BM after laxative treatment given last night. Review of Systems Constitutional: Reports: generalized weakness. Denies: chills, f ever, recent wt loss. Allergy/Immun: Denies: allergic reaction, hives, itching, rhino rrhea, sneezing. Eyes: Denies: redness, discharge, visual loss/blurred, itching, diplopia, eye pain. ENT: Denies: ear drainage, earache, hearing loss, shital al congestion, nose bleeding, sinus problem, throat pain. Respiratory: Reports: non productive cough, SOB. Denies: hemo ptysis, pleuritic pain. Cardiovascular: Reports: edema. Denies: chest pain, palpitations . GI: Reports: constipation. Denies: abdominal pain, a norexia, diarrhea, dysphagia, GERD, nausea, vomiting. : Denies: dysuria, flank pain, frequency, hematuri a, nocturia, urgency. Musculoskeletal: Reports: arthritis, extremity pain, extremity sw elling, joint pain. Denies: joint swelling, lumbar pain, neck pain. Endocrine: Denies: cold intolerance, heat intolerance, poly dipsia, polyphagia, polyuria. Neuro: Denies: bladder dysfunction, bowel dysfunction, confusion, dizziness, gait problem, headache, numbness, slurred speech. Psych: Denies: agitation, anxiety, confusion, depressio n, insomnia, stress. All systems rev neg: except as marked Objective General VS/I O: Vital Signs: Date Time Temp Pulse Resp B/P B/P Pulse O2 O2 F low FiO2 Mean Ox Delivery Rate 06/27 1126 97.9 69 18 100/59 72.4 93 Room air 06/27 0700 97.9 53 18 134/55 81.1 94 Room air 06/27 0526 97.9 73 18 96/56 0.0 89 Room air 06/27 0046 98.4 64 18 98/63 74.6 98 CPAP 06/26 2342 73 19 99 3.513473 32 06/26 2030 Nasal 2.946047 cannula 06/26 1950 98.4 74 18 109/75 86.4 97 Nasal cannula 06/26 1850 99 Nasal 3.965930 32 cannula 06/26 1651 128 20 88/57 64 100 06/26 1641 139 20 136/111 121 100 24 hour I O ending at 0700: 06/27 0700 06/26 1900 Intake Total 240 Output Total Balance 240 Intake, Oral 240 Number Voids 1 Patient Weight Weight (lb): 230 Weight (oz): 6.13 Weight (kg): 104.326 Medications: Active Meds + DC'd Last 24 Hrs Duloxetine HCl 60 MG BID PO Pantoprazole 40 MG DAILY PO Sacubitril/Valsartan 1 TAB DAILY PO Bisacodyl 10 MG ONCE ONE PO (DC) Lactulose 30 GM NOW ONE PO (DC) Metoprolol Tartrate 5 MG Q6H PRN PRN IV Lisinopril 2.5 MG DAILY PO (DC) Acetaminophen 1,000 MG Q6H PRN PRN PO Melatonin 6 MG BEDTIME PRN PO Ondansetron HCl 4 MG Q6H PRN PRN IV Aspirin 81 MG DAILY PO Carvedilol 6.25 MG Q12HR PO Mupirocin 1 APPLIC BID NASAL Furosemide 40 MG Q12H IV Insulin Human Lispro MEDIUM DOSE SLIDING SCALE AC HS SUBQ Dextrose/Water 12.5 GM ASDIR PRN IV Dextrose/Water 25 GM ASDIR PRN IV Enoxaparin Sodium 100 MG 0600,1800 SUBQ Hydralazine HCl 10 MG Q6H PRN PRN IV Physical Exam General appearance: obese, a lert, awake, oriented, no acute distress, pleasant, conversational Head/Eyes: atraumatic, clear cornea, normal conj unctiva/sclera, PERRL ENT: moist mucosal membranes, normal pharynx Neck: non-tender, supple/no meningismus Cardiovascular: irregularly irregular Respiratory: aerating well, clear to auscultatio n, symmetric expansion, no distress Abdomen: obese, non-tender, normal bowel sounds, soft, no distention, no guarding Genitourinary: no lee Rectal: not indicated Extremities: moves all, no clubbing, no cyanosis , mild pitting edema in LE. Musculoskeletal: normal inspection, no muscle sp asm Neuro/DYE BLENDER: alert, oriented X 3, normal speech, n o motor deficits Psychiatry: normal affect, normal judgment/insig ht, normal mood Results Findings/Data: Laboratory Tests 06/27 06/27 06/27 06/26 06/26 1124 0608 0451 2103 1646 Chemistry Sodium (137 - 145 MMOL/L) 136 L Potassium (3.5 - 5.1 MMOL/L) 3.5 Chloride (98 - 107 MMOL/L) 99 Carbon Dioxide (22 - 30 MMOL/L) 30 Anion Gap (14 - 24 MMOL/L) 11 L BUN (7 - 17 MG/DL) 32 H Creatinine (0.52 - 1.04 MG/DL) 1.00 Glomerular Filtr Rate 54 Glucose (74 - 106 MG/DL) 149 H POC Glucose (60 - 99 MG/DL) 164 H 144 H 236 H 1 52 H Calcium (8.4 - 10.2 MG/DL) 9.0 Results: labs reviewed, clarence l signs stable, rhythm personally rev'd (telemetry), current med profile rev'd Free Text Obj Notes Free Text Obj Notes: TELEMETRY: Atrial fibrillation 80s-90s; PVCs. Diagnosis, Assessment Plan Free Text DxA P Notes Free Text DxA P Notes: - PULMONARY EMBOLISM. - CHF DUE TO SYSTOLIC DYSFUNCTION, acute on alliances consultant rosendo. - ATRIAL FIBRILLATION; rate controlled. - EPISODES OF NSVT. - CKD, stage 3. - BORDERLINE DM. - OSTEOARTHRITIS. - CHRONIC KNEE BURSITIS. - OBSTRUCTIVE SLEEP APNEA. - MORBID OBESITY. PLAN and HOSPTIAL COURSE: 06/25/2019: - Patient was transferred from [facility] last night and got admitted to ICU. - Will transfer her out of ICU to telemetry. - Continue Lovenox. - Resume home medications. - Cardiology consult. - Continue IV Lasix started by Ethnology Teacher. - Follow labs and CXR. 06/26/2019: - Continue Lovenox. - Will d/w Cardiology RE bridging to oral anti-c oagulant. - Continue IV lasix. - Monitor labs. - Will add laxative. - Will consult PT/OT. 06/27/2019: - Continue present treatment including IV Lasix. - Will d/w Cardiology RE AICD. Quality Medications Current medication review: I attest that the foregoing medication list in t he medical record is true, accurate, and complete to the best of my knowled ge. Advanced Care Plan 65 or Older Discussed with: patient Discussion included: code status (full code) BMI Screening > 25 or < 18.5 Patient's BMI: Current BMI: 46.5 BMI status/follow-up: abnl BMI, pt to F/U w/PCP (to discuss diet exercise) Tobacco Use/Counseling Tobacco use/counseling: non tobacco user, no cou nseling needed HTN Screening/Follow-up Last documented vitals: Last Documented: Result Date Time Pulse Ox 93 06/27 1126 B/P 100/59 06/27 1126 B/P Mean 72.4 06/27 1126 O2 Delivery Room air 06/27 1126 Temp 97.9 06/27 1126 Pulse 69 06/27 1126 Resp 18 06/27 1126 FiO2 32 06/26 2342 O2 Flow Rate 3.365916 06/26 2342 B/P assess/follow-up: normal B/P, no f/u req Blood pressure ranges/guide: Screening for Hypertension and follow up measure #317 Blood pressure parameters Normal B/P SBP </= 119 DBP </= 79 Pre-hypertensive SBP 120-139 DBP 80-89 Hypertensive SBP >/= 140 DBP >/= 90 Electronically Signed by Nick Cabrera MD on 06/27 at 1606 RPT #:[id number] END OF REPORT 2019-06-27 06:36:00-00:00 [facility] Cardiology Progress Note REPORT#:[id number] REPORT STATUS: Signed DATE:06/27/19 TIME: 0636 PATIENT: BREA GILES UNIT #: [id number] AGE: 73 SEX: F ATTEND: Nick Cabrera MD ADM AUTHOR: Alexandr Ham MD * ALL edits or amendments must be made on the [employer] document * Subjective Patient reports: No: chest pain, palpitations, shortness of breat h. Objective General VS/I O: 24 hour I O ending at 0700: 06/27 0700 06/26 1900 Intake Total 240 Output Total Balance 240 Intake, Oral 240 Number Voids 1 Vital Signs: Date Time Temp Pulse Resp B/P B/P Pulse O2 O2 F low FiO2 Mean Ox Delivery Rate 06/27 0526 97.9 73 18 96/56 0.0 89 Room air 06/27 0046 98.4 64 18 98/63 74.6 98 CPAP 06/26 2342 73 19 99 3.102772 32 06/26 2030 Nasal 2.022022 cannula 06/26 1950 98.4 74 18 109/75 86.4 97 Nasal cannula 06/26 1850 99 Nasal 3.569651 32 cannula 06/26 1651 128 20 88/57 64 100 06/26 1641 139 20 136/111 121 100 06/26 1500 127 0 100/66 77 100 06/26 1400 125 12 95/71 78 100 06/26 1300 115 10 101/70 80 100 06/26 1222 97.3 06/26 1200 76 6 128/58 84 99 06/26 1100 85 24 115/60 87 98 06/26 1058 Nasal 2.896934 cannula 06/26 1042 114/77 89 06/26 0953 94 17 134/73 97 98 06/26 0942 89 8 120/69 89 99 06/26 0900 79 23 111/76 89 99 06/26 0800 88 16 100 06/26 0745 76 12 127/58 83 99 06/26 0701 97.0 BiPAP 06/26 0645 69 15 106/59 78 100 Patient Weight Weight (lb): 230 Weight (oz): 6.13 Weight (kg): 104.500 Medications: Active Meds + DC'd Last 24 Hrs Duloxetine HCl 60 MG BID PO Pantoprazole 40 MG DAILY PO Sacubitril/Valsartan 1 TAB DAILY PO Bisacodyl 10 MG ONCE ONE PO (DC) Lactulose 30 GM NOW ONE PO (DC) Metoprolol Tartrate 5 MG Q6H PRN PRN IV Lisinopril 2.5 MG DAILY PO (DC) Acetaminophen 1,000 MG Q6H PRN PRN PO Melatonin 6 MG BEDTIME PRN PO Ondansetron HCl 4 MG Q6H PRN PRN IV Aspirin 81 MG DAILY PO Carvedilol 6.25 MG Q12HR PO Mupirocin 1 APPLIC BID NASAL Furosemide 40 MG Q12H IV Insulin Human Lispro MEDIUM DOSE SLIDING SCALE AC HS SUBQ Dextrose/Water 12.5 GM ASDIR PRN IV Dextrose/Water 25 GM ASDIR PRN IV Enoxaparin Sodium 100 MG 0600,1800 SUBQ Hydralazine HCl 10 MG Q6H PRN PRN IV Physical Exam General appearance: alert, awake, oriented Head/Eyes: atraumatic, normocephalic ENT: moist mucosal membranes Neck: no JVD Cardiovascular: CV assessment: regular rate and rhythm Respiratory: clear to auscultation, no distress Lower extremity: LE assessment: no edema Musculoskeletal: full range of motion Neuro/DYE BLENDER: alert, oriented X 3, CN II-XII intact Skin: dry, intact Psychiatry: normal affect, normal judgment/insig ht, normal mood Results Findings/Data: Laboratory Tests 06/27 06/27 06/26 0608 0451 2103 Chemistry Sodium (137 - 145 MMOL/L) 136 L Potassium (3.5 - 5.1 MMOL/L) 3.5 Chloride (98 - 107 MMOL/L) 99 Carbon Dioxide (22 - 30 MMOL/L) 30 Anion Gap (14 - 24 MMOL/L) 11 L BUN (7 - 17 MG/DL) 32 H Creatinine (0.52 - 1.04 MG/DL) 1.00 Glomerular Filtr Rate 54 Glucose (74 - 106 MG/DL) 149 H POC Glucose (60 - 99 MG/DL) 144 H 236 H Calcium (8.4 - 10.2 MG/DL) 9.0 Diagnosis, Assessment Plan Free Text DxA P Notes Free Text DxA P Notes: IMP: Acute pulmonary embolism Acute systolic heart failure - volume overload. LVEF 25-29% by echo 06/25/19. MAT DM REC: Continue diuresis with IV lasix. Low dose KIKA-I at 1955 RPT #:[id number] END OF REPORT 2019-06-27 03:50:00-00:00 [id number] [address] PATIENT NAME: BREA GILES ADMIT DATE : 06/25/19 ACCOUNT NO: [id number] ROOM NO: Z.410 AGE: 73 REPORT TYPE: ELECTROCARDIOGRAM SEX: F ADMITTING PHYSICIAN:Nick Cabrera MD ATTENDING PHYSICIAN:Nick Cabrera MD Order: [id number] Test Reason : PAFIB Test Date/Time Stamp: TueJun 27 2019 03:50:45 Blood Pressure : / mmHG Vent. Rate : 088 BPM Atrial Rate : 088 BPM P-R Int : 132 ms QRS Dur : 084 ms QT Int : 436 ms P-R-T Axes : 062 017 086 degree s QTc Int : 527 ms Sinus rhythm with frequent with premature ventri cular or aberrantly conducted complexes Anterior infarct , age undetermined Prolonged QT Abnormal ECG When compared with ECG of 26-JUN-2019 05:40, Inverted T waves have replac ed nonspecific T wave abnormality in Anterior leads QT has lengthened Confirmed by NORMAN TUCKER ([id number]) on 06/27/2019 6:57:40 AM Referred By: Viviana Thompson Confirmed by:NORMAN ALGOS I at 0657 PATIENT NAME: BREA GILES 2019-06-27 03:50:00-00:00 [id number] [address] PATIENT NAME: BREA GILES ADMIT DATE : 06/25/19 ACCOUNT NO: [id number] ROOM NO: Z.410 AGE: 73 REPORT TYPE: ELECTROCARDIOGRAM SEX: F ADMITTING PHYSICIAN:Nick Cabrera MD ATTENDING PHYSICIAN:Nick Cabrera MD Order: [id number] Test Reason : PAFIB Test Date/Time Stamp: TueJun 27 2019 03:50:45 Blood Pressure : / mmHG Vent. Rate : 088 BPM Atrial Rate : 088 BPM P-R Int : 132 ms QRS Dur : 084 ms QT Int : 436 ms P-R-T Axes : 062 017 086 degree s QTc Int : 527 ms Sinus rhythm with frequent with premature ventri cular or aberrantly conducted complexes Anterior infarct , age undetermined Prolonged QT Abnormal ECG When compared with ECG of 26-JUN-2019 05:40, Inverted T waves have replac ed nonspecific T wave abnormality in Anterior leads QT has lengthened Confirmed by NORMAN TUCKER ([id number]) on 06/27/2019 7:07:39 PM Referred By: Viviana Thompson Confirmed by:NORMAN LAGOS I at 1907 PATIENT NAME: BREA GILES 2019-06-26 21:16:00-00:00 [facility] ([facility] Hospitalist Progress Note REPORT#:[id number] REPORT STATUS: Signed DATE:06/26/19 TIME: 2115 PATIENT: BREA GILES UNIT #: [id number] ROOM/BED: [address] : 45 AGE: 73 SEX: F ATTEND: Nick Cabrera MD ADM AUTHOR: Nick Cabrera MD * ALL edits or amendments must be made on the [employer]computer document * Subjective Chief Complaint: Patient reports feeling bett er. Reports improvement in dyspnea. Slept wall. Able to ambulate in the room. Review of Systems Constitutional: Reports: generalized weakness. Denies: chills, f ever, recent wt loss. Allergy/Immun: Denies: allergic reaction, hives, itching, rhino rrhea, sneezing. Eyes: Denies: redness, discharge, visual loss/blurred, itching, diplopia, eye pain. ENT: Denies: ear drainage, earache, hearing loss, shital al congestion, nose bleeding, sinus problem, throat pain. Respiratory: Reports: non productive cough, SOB. Denies: hemo ptysis, pleuritic pain. Cardiovascular: Reports: edema. Denies: chest pain, palpitations . GI: Reports: constipation. Denies: abdominal pain, a norexia, diarrhea, dysphagia, GERD, nausea, vomiting. : Denies: dysuria, flank pain, frequency, hematuri a, nocturia, urgency. Musculoskeletal: Reports: arthritis, extremity pain, extremity sw elling, joint pain. Denies: joint swelling, lumbar pain, neck pain. Endocrine: Denies: cold intolerance, heat intolerance, poly dipsia, polyphagia, polyuria. Neuro: Denies: bladder dysfunction, bowel dysfunction, confusion, dizziness, gait problem, headache, numbness, slurred speech. Psych: Denies: agitation, anxiety, confusion, depressio n, insomnia, stress. All systems rev neg: except as marked Objective General VS/I O: Vital Signs: Date Time Temp Pulse Resp B/P B/P Pulse O2 O2 F low FiO2 Mean Ox Delivery Rate 06/26 1950 98.4 74 18 109/75 86.4 97 Nasal cannula 06/26 1850 99 Nasal 3.039108 32 cannula 06/26 1651 128 20 88/57 64 100 06/26 1641 139 20 136/111 121 100 06/26 1500 127 0 100/66 77 100 06/26 1400 125 12 95/71 78 100 06/26 1300 115 10 101/70 80 100 06/26 1222 97.3 06/26 1200 76 6 128/58 84 99 06/26 1100 85 24 115/60 87 98 06/26 1058 Nasal 2.228253 cannula 06/26 1042 114/77 89 06/26 0953 94 17 134/73 97 98 06/26 0942 89 8 120/69 89 99 06/26 0900 79 23 111/76 89 99 06/26 0800 88 16 100 06/26 0745 76 12 127/58 83 99 06/26 0701 97.0 BiPAP 06/26 0645 69 15 106/59 78 100 06/26 0545 73 19 122/50 72 100 06/26 0445 74 14 123/56 81 100 06/26 0400 16 06/26 0345 78 120/59 85 100 06/26 0310 97.7 BiPAP 06/26 0245 76 12 109/59 76 100 06/26 0215 65 19 100 32 06/26 0157 82 93/63 74 100 06/26 0145 91 80/56 64 100 06/26 0045 83 12 106/72 84 100 06/25 2345 93 131/81 93 100 06/25 2315 20 06/25 2313 77 20 100 32 06/25 2308 97.0 Nasal 3.030957 cannula 06/25 2245 78 119/58 82 100 06/25 2227 97 113/60 80 92 06/25 2145 91 97/69 79 100 06/25 2125 93 139/63 91 99 24 hour I O ending at 0700: 06/26 0700 06/25 1900 Intake Total 90 550 Output Total Balance 90 550 Intake, Oral 90 550 Number Voids 1 2 Patient Weight Weight (lb): 230 Weight (oz): 6.13 Weight (kg): 104.500 Medications: Active Meds + DC'd Last 24 Hrs Bisacodyl 10 MG ONCE ONE PO (DC) Lactulose 30 GM NOW ONE PO (DC) Metoprolol Tartrate 5 MG Q6H PRN PRN IV Lisinopril 2.5 MG DAILY PO Acetaminophen 1,000 MG Q6H PRN PRN PO Melatonin 6 MG BEDTIME PRN PO Ondansetron HCl 4 MG Q6H PRN PRN IV Aspirin 81 MG DAILY PO Carvedilol 6.25 MG Q12HR PO Mupirocin 1 APPLIC BID NASAL Furosemide 40 MG Q12H IV Insulin Human Lispro MEDIUM DOSE SLIDING SCALE AC HS SUBQ Dextrose/Water 12.5 GM ASDIR PRN IV Dextrose/Water 25 GM ASDIR PRN IV Enoxaparin Sodium 100 MG 0600,1800 SUBQ Hydralazine HCl 10 MG Q6H PRN PRN IV Potassium Chloride 100 ML ASDIR PRN IV (DC) Potassium Chloride 50 ML ASDIR PRN IV (DC) Physical Exam General appearance: obese, a lert, awake, oriented, no acute distress, pleasant, conversational, sitting up in the chair. Head/Eyes: atraumatic, clear cornea, normal conj unctiva/sclera, PERRL ENT: moist mucosal membranes, normal pharynx Neck: non-tender, supple/no meningismus Cardiovascular: irregularly irregular, tachycard ia Respiratory: aerating well, clear to auscultatio n, symmetric expansion, no distress Abdomen: obese, non-tender, normal bowel sounds, soft, no distention, no guarding Genitourinary: no lee Rectal: not indicated Extremities: moves all, no clubbing, no cyanosis , mild pitting edema in LE. Musculoskeletal: normal inspection, no muscle sp asm Neuro/DYE BLENDER: alert, oriented X 3, normal speech, n o motor deficits Psychiatry: normal affect, normal judgment/insig ht, normal mood Results Findings/Data: Laboratory Tests 06/26 06/26 06/25 2103 0440 2358 Chemistry Sodium (137 - 145 MMOL/L) 135 L Potassium (3.5 - 5.1 MMOL/L) 3.8 Chloride (98 - 107 MMOL/L) 101 Carbon Dioxide (22 - 30 MMOL/L) 25 Anion Gap (14 - 24 MMOL/L) 13 L BUN (7 - 17 MG/DL) 38 H Creatinine (0.52 - 1.04 MG/DL) 1.10 H Glomerular Filtr Rate 49 Glucose (74 - 106 MG/DL) 156 H POC Glucose (60 - 99 MG/DL) 236 H Calcium (8.4 - 10.2 MG/DL) 8.9 Total Creatine Kinase (30 - 135 UNITS/L) 42 CK-MB (CK-2) (0.0 - 5.6 NG/ML) 0.93 CK-MB (CK-2) Rel Index (4.0 - 4.4 %) 2.2 L Laboratory Tests 06/26 0440 Hematology WBC (3.8 - 9.8 K/MM3) 11.1 H RBC (3.58 - 4.97 M/MM3) 4.48 Hgb (11.2 - 14.9 G/DL) 11.0 L Hct (33.2 - 43.5 %) 37.5 MCV (80.7 - 99.1 fL) 84 MCH (27.0 - 34.1 pg) 24.6 L MCHC (32.2 - 35.7 %) 29.3 L RDW (12.1 - 15.2 %) 16.2 H Plt Count (129 - 368 K/MM3) 223 MPV (7.4 - 10.4 fl) 10.8 H Neut % (Auto) (43 - 75 %) 66.0 Lymph % (Auto) (14 - 44 %) 17.3 Baca % (Auto) (4 - 13 %) 11.1 Eos % (Auto) (0 - 6 %) 3.8 Baso % (Auto) (0 - 2 %) 0.8 Neut # (Auto) (2.0 - 7.6 K/mm3) 7.31 Lymph # (Auto) (1.0 - 3.8 K/mm3) 1.92 Baca # (Auto) (0.1 - 0.8 K/mm3) 1.23 H Eos # (Auto) (0.0 - 0.2 K/mm3) 0.42 H Baso # (Auto) (0.0 - 0.2 K/mm3) 0.09 Immature Gran % (0.0 - 2.0 %) 1.0 Nucleated RBC % (0 - 1.0 %) 0.2 Nucleated RBCs # (Man) (0.0 - 0.1 K/mm3) 0.02 Results: labs reviewed, clarence galo signs stable, rhythm personally rev'd (telemetry), current med profile rev'd Diagnosis, Assessment Plan Free Text DxA P Notes Free Text DxA P Notes: - PULMONARY EMBOLISM. - CHF DUE TO SYSTOLIC DYSFUNCTION, acute on alliances consultant rosendo. - ATRIAL FIBRILLATION WITH RVR. - CKD, stage 3. - BORDERLINE DM. - OSTEOARTHRITIS. - CHRONIC KNEE BURSITIS. - OBSTRUCTIVE SLEEP APNEA. - MORBID OBESITY. PLAN and HOSPTIAL COURSE: 06/25/2019: - Patient was transferred from [facility] last night and got admitted to ICU. - Will transfer her out of ICU to telemetry. - Continue Lovenox. - Resume home medications. - Cardiology consult. - Continue IV Lasix started by Ethnology Teacher. - Follow labs and CXR. 06/26/2019: - Continue Lovenox. - Will d/w Cardiology RE bridging to oral anti-c oagulant. - Continue IV lasix. - Monitor labs. - Will add laxative. - Will consult PT/OT. Quality Medications Current medication review: I attest that the foregoing medication list in t he medical record is true, accurate, and complete to the best of my knowled ge. Electronically Signed by Nick Cabrera MD on 06/[address] [facility] #:[id number] END OF REPORT 2019-06-26 14:50:00-00:00 [facility] ([facility]) Cardiology Progress Note REPORT#:[id number] REPORT STATUS: Signed DATE:06/26/19 TIME: 1450 PATIENT: BREA GILES UNIT #: [id number] ROOM/BED: [address] : 45 AGE: 73 SEX: F ATTEND: Nick Cabrera MD ADM AUTHOR: Alexandr Ham MD * ALL edits or amendments must be made on the [employer] document * Subjective Patient reports: No: chest pain, palpitations, shortness of breat h. Objective General VS/I O: 24 hour I O ending at 0700: 06/26 0700 06/25 1900 Intake Total 90 550 Output Total Balance 90 550 Intake, Oral 90 550 Number Voids 1 2 Vital Signs: Date Time Temp Pulse Resp B/P B/P Pulse O2 O2 F low FiO2 Mean Ox Delivery Rate 06/26 1222 97.3 06/26 1200 76 6 128/58 84 99 06/26 1100 85 24 115/60 87 98 06/26 1058 Nasal 2.187997 cannula 06/26 1042 114/77 89 06/26 0953 94 17 134/73 97 98 06/26 0942 89 8 120/69 89 99 06/26 0900 79 23 111/76 89 99 06/26 0800 88 16 100 06/26 0745 76 12 127/58 83 99 06/26 0701 97.0 BiPAP 06/26 0645 69 15 106/59 78 100 06/26 0545 73 19 122/50 72 100 06/26 0445 74 14 123/56 81 100 06/26 0400 16 06/26 0345 78 120/59 85 100 06/26 0310 97.7 BiPAP 06/26 0245 76 12 109/59 76 100 06/26 0215 65 19 100 32 06/26 0157 82 93/63 74 100 06/26 0145 91 80/56 64 100 06/26 0045 83 12 106/72 84 100 06/25 2345 93 131/81 93 100 06/25 2315 20 06/25 2313 77 20 100 32 06/25 2308 97.0 Nasal 3.067038 cannula 06/25 2245 78 119/58 82 100 06/25 2227 97 113/60 80 92 06/25 2145 91 97/69 79 100 06/25 2125 93 139/63 91 99 06/25 2045 82 101/59 73 100 06/25 2000 19 06/25 2000 97.0 Nasal 2.519806 cannula 06/25 1949 79 132/73 90 98 06/25 1930 Nasal 3.852983 cannula 06/25 1917 98 137/63 90 99 06/25 1707 82 28 118/91 101 99 06/25 1630 100 06/25 1621 84 25 93/54 65 06/25 1539 99 06/25 1500 97 127/74 93 98 Patient Weight Weight (lb): 230 Weight (oz): 6.13 Weight (kg): 104.500 Medications: Active Meds + DC'd Last 24 Hrs Acetaminophen 1,000 MG Q6H PRN PRN PO Melatonin 6 MG BEDTIME PRN PO Ondansetron HCl 4 MG Q6H PRN PRN IV Aspirin 81 MG DAILY PO Carvedilol 6.25 MG Q12HR PO Mupirocin 1 APPLIC BID NASAL Furosemide 40 MG Q12H IV Insulin Human Lispro MEDIUM DOSE SLIDING SCALE AC HS SUBQ Dextrose/Water 12.5 GM ASDIR PRN IV Dextrose/Water 25 GM ASDIR PRN IV Enoxaparin Sodium 100 MG 0600,1800 SUBQ Hydralazine HCl 10 MG Q6H PRN PRN IV Potassium Chloride 100 ML ASDIR PRN IV (DC) Potassium Chloride 50 ML ASDIR PRN IV (DC) Physical Exam General appearance: alert, awake, oriented Head/Eyes: atraumatic, normocephalic ENT: moist mucosal membranes Neck: no JVD Cardiovascular: CV assessment: regular rate and rhythm Respiratory: clear to auscultation, no distress Lower extremity: LE assessment: no edema Musculoskeletal: full range of motion Neuro/DYE BLENDER: alert, oriented X 3, CN II-XII intact Skin: dry, intact Psychiatry: normal affect, normal judgment/insig ht, normal mood Results Findings/Data: Laboratory Tests 06/26 06/25 06/25 06/25 0440 2358 1654 1645 Chemistry Sodium (137 - 145 MMOL/L) 135 L Potassium (3.5 - 5.1 MMOL/L) 3.8 Chloride (98 - 107 MMOL/L) 101 Carbon Dioxide (22 - 30 MMOL/L) 25 Anion Gap (14 - 24 MMOL/L) 13 L BUN (7 - 17 MG/DL) 38 H Creatinine (0.52 - 1.04 MG/DL) 1.10 H Glomerular Filtr Rate 49 Glucose (74 - 106 MG/DL) 156 H POC Glucose (60 - 99 MG/DL) 154 H Calcium (8.4 - 10.2 MG/DL) 8.9 Total Creatine Kinase (30 - 135 UNITS/L) 42 41 CK-MB (CK-2) (0.0 - 5.6 NG/ML) 0.93 0.98 CK-MB (CK-2) Rel Index (4.0 - 4.4 %) 2.2 L 2.4 L Laboratory Tests 06/26 0440 Hematology WBC (3.8 - 9.8 K/MM3) 11.1 H RBC (3.58 - 4.97 M/MM3) 4.48 Hgb (11.2 - 14.9 G/DL) 11.0 L Hct (33.2 - 43.5 %) 37.5 MCV (80.7 - 99.1 fL) 84 MCH (27.0 - 34.1 pg) 24.6 L MCHC (32.2 - 35.7 %) 29.3 L RDW (12.1 - 15.2 %) 16.2 H Plt Count (129 - 368 K/MM3) 223 MPV (7.4 - 10.4 fl) 10.8 H Neut % (Auto) (43 - 75 %) 66.0 Lymph % (Auto) (14 - 44 %) 17.3 Baca % (Auto) (4 - 13 %) 11.1 Eos % (Auto) (0 - 6 %) 3.8 Baso % (Auto) (0 - 2 %) 0.8 Neut # (Auto) (2.0 - 7.6 K/mm3) 7.31 Lymph # (Auto) (1.0 - 3.8 K/mm3) 1.92 Baca # (Auto) (0.1 - 0.8 K/mm3) 1.23 H Eos # (Auto) (0.0 - 0.2 K/mm3) 0.42 H Baso # (Auto) (0.0 - 0.2 K/mm3) 0.09 Immature Gran % (0.0 - 2.0 %) 1.0 Nucleated RBC % (0 - 1.0 %) 0.2 Nucleated RBCs # (Man) (0.0 - 0.1 K/mm3) 0.02 Laboratory Tests 06/25 06/25 2358 1645 Chemistry CK-MB (CK-2) (0.0 - 5.6 NG/ML) 0.93 0.98 Diagnosis, Assessment Plan Free Text DxA P Notes Free Text DxA P Notes: IMP: Acute pulmonary embolism Acute systolic heart failure - volume overload. MAT DM REC: Continue diuresis with IV lasix. Low dose KIKA-I at 1955 RPT #:[id number] END OF REPORT 2019-06-26 07:11:00-00:00 [id number] [place] [address] PATIENT NAME: BREA GILES ADMIT DATE : 06/25/19 ACCOUNT NO: [id number] ROOM NO: Z.I10 AGE: 73 REPORT TYPE: eVENOUS ULTRASOUND SEX: F ADMITTING PHYSICIAN:Nick Cabrera MD ATTENDING PHYSICIAN:Nikc Cabrera MD *[facility]* [address] [place] [id number] Lower Extremity Venous Duplex Evaluation Patient: Brea Giles Study Date: 06/25/2019 BP: 123 / 93 Location: [facility] URN: [id number] : 1945 Age: 73 Height: 59 in / 149.9 cm Gender: F Weight: 230 lb / 104.5 kg BMI/BSA: 46.6 kg/m 2 / 2.15 m 2 *Ordering Physician: * Nick Cabrera *Interpreting Physician: * Norman Tucker MD *Wood Milling Machine Operator: * Warshaw, Adrian RDCS, RVT Indications: Pulmonary embolism. Study data: Lower extremity venous duplex evalua tion. Bilateral evaluation with grayscale 2D imaging, color Dopp ler imaging, and spectral Doppler analysis. Location: Bedside. Nathaly shah room number: ICU 10. Procedure: A vascular evaluation was perform ed. Images were obtained using a 58[employer] vascular ultrasound machine. Image quality was adequate. Venous flow and imaging: + + + *Location *Properties * + + + *R CFV *Phasic; spontaneous; normal augmentation ; compressible* + + + PATIENT NAME: BREA GILES *R GSV *Phasic; spontaneous; normal augmentation ; compressible* + + + *R DFV *Not seen * + + + *R FV *Phasic; spontaneous; normal augmentation; compressible* + + + *R popliteal*Phasic; spontaneous; normal augment ation; compressible* + + + *R peroneal *Not seen * + + + *R PTV *Phasic; spontaneous; normal augmentation ; compressible* + + + *L CFV *Phasic; spontaneous; normal augmentation ; compressible* + + + *L GSV *Phasic; spontaneous; normal augmentation ; compressible* + + + *L DFV *Phasic; spontaneous * + + + *L FV *Phasic; spontaneous; normal augmentation; compressible* + + + *L popliteal*Phasic; spontaneous; normal augment ation; compressible* + + + *L peroneal *Not seen * + + + *L PTV *Phasic; spontaneous; normal augmentation ; compressible* + + + Conclusions There is no evidence of deep or superficial veno us thrombosis noted in the right lower extremity and left lower extremi ty. Prepared and electronically signed by Norman Tucker MD 06/26/2019 07:11 at 0712 PATIENT NAME: BREA GILES Venkat 2019-06-26 05:40:00-00:00 [id number] [place] [address] PATIENT NAME: BREA GILES ADMIT DATE : 06/25/19 ACCOUNT NO: [id number] ROOM NO: [facility] AGE: 73 REPORT TYPE: ELECTROCARDIOGRAM SEX: F ADMITTING PHYSICIAN:Nick Caberra MD ATTENDING PHYSICIAN:Nick Cabrera MD Order: [id number] Test Reason : AFib Test Date/Time Stamp: TueJun 26 2019 05:40:45 Blood Pressure : / mmHG Vent. Rate : 069 BPM Atrial Rate : 087 BPM P-R Int : 112 ms QRS Dur : 076 ms QT Int : 210 ms P-R-T Axes : 090 013 218 degree s QTc Int : 225 ms Sinus rhythm with marked sinus arrhythmia with p remature supraventricular complexes with occasional and consecutive premat ure ventricular complexes Nonspecific ST and T wave abnormality Abnormal ECG When compared with ECG of 25-JUN-2019 07:40, Sinus rhythm is no longer with junctional escape complexes Vent. rate has decreased BY 45 BPM Confirmed by NORMAN TUCKER ([id number]) on 06/26/2019 7:02:16 AM Referred By: Viviana Thompson Confirmed by:NORMAN LAGOS I at 0702 PATIENT NAME: BREA GILES 2019-06-26 05:40:00-00:00 [id number] [place] [address] PATIENT NAME: BREA GILES ADMIT DATE : 06/25/19 ACCOUNT NO: [id number] ROOM NO: Z.410 AGE: 73 REPORT TYPE: ELECTROCARDIOGRAM SEX: F ADMITTING PHYSICIAN:Nick Cabrera MD ATTENDING PHYSICIAN:Nick Cabrera MD Order: [id number] Test Reason : AFib Test Date/Time Stamp: TueJun 26 2019 05:40:45 Blood Pressure : / mmHG Vent. Rate : 069 BPM Atrial Rate : 087 BPM P-R Int : 112 ms QRS Dur : 076 ms QT Int : 210 ms P-R-T Axes : 090 013 218 degree s QTc Int : 225 ms Sinus rhythm with marked sinus arrhythmia with p remature supraventricular complexes with occasional and consecutive premat ure ventricular complexes Nonspecific ST and T wave abnormality Abnormal ECG When compared with ECG of 25-JUN-2019 07:40, Sinus rhythm is no longer with junctional escape complexes Vent. rate has decreased BY 45 BPM Confirmed by NORMAN TUCKER ([id number]) on 06/27/2019 7:07:33 PM Referred By: Viviana Thompson Confirmed by:NORMAN LAGOS I at 1907 PATIENT NAME: BREA GILES 2019-06-25 12:32:00-00:00 [id number] [place] [id number] PATIENT NAME: BREA GILES ADMIT DATE : 06/25/19 ACCOUNT NO: [id number] ROOM NO: Z.I10 AGE: 73 REPORT TYPE: ECHOCARDIOGRAM SEX: F ADMITTING PHYSICIAN:Nick Cabrera MD ATTENDING PHYSICIAN:Nick Cabrera MD *[facility]* [address] [place] [id number] Transthoracic Echocardiogram Patient: Brea Giles Study Date: 06/25/2019 BP: 112 / 73 Location: [facility] URN: [id number] : 1945 Age: 73 Height: 59 in / 149.9 cm Gender: F Weight: 22 9.5 lb / 104.3 kg BMI/BSA: 46.5 kg/m 2 / 2.15 m 2 *Ordering Physician: * Corey Lord *Interpreting Physician: * Norman Tucker MD *Wood Milling Machine Operator: * Lesley Denis RDCS, Carlos Indications: Atrial Fibrillation. Pulmonary nicole a. Cardiomyopathy. Study data: Transthoracic echocardiogram. Proced ure: Transthoracic echocardiography was performed. Images were obta ined using a 58[employer] cardiac ultrasound machine. Image quality was adequate. The study was technically limited due to poor acoustic window availability and body habitus. Complete 2D, complete spectral Doppler, and color Doppler. Location: ICU Patient room number: 10. Findings Left ventricle: The cavity size is dilated. Wall thickness is normal. Systolic function is reduced. The estimated ejec tion fraction is 25-29%. Regional wall motion abnormalities: Severe hypo kinesis. The study is not technically sufficient to allow evaluation o f LV diastolic function PATIENT NAME: BREA IGLES due to abnormal heart rhythm. Right ventricle: The cavity size is dilated. Sys tolic function is reduced. Systolic pressure is mildly increased. Ventricular septum: The ventricular septum is no rmal. Left atrium: The atrium is mildly dilated. Right atrium: The atrium is mildly dilated. Atrial septum: No defect or patent foramen ovale is identified. Aorta: The aortic root is not dilated. Aortic valve: The valve is trileaflet. The leafl ets are mildly thickened and mildly calcified. Cusp separation is normal. Transvalvular velocity is within the normal range. There is no evidence of stenosis. There is no regurgitation. Mitral valve: The valve is structurally normal. There is no evidence of stenosis. There is moderate regurgit ation, directed eccentrically and toward the free wall. Tricuspid valve: The valve is structurally cami l. There is no evidence of stenosis. There is mild-moderate reg urgitation. Pulmonic valve: Not well visualized. There is no evidence of stenosis. There is no significant regurgitation. Pericardium: There is no pericardial effusion. N o evidence of pleural fluid accumulation. Systemic veins: Inferior vena cava: The vessel is normal in size . Measurements Left ventricle Value Ref Right atrium Value Ref IESHA, LAX 6.5 cm 3.8 - 5.2 Area, ES, A4C 23 cm 2 10 - 18 ESD, LAX 5.2 cm 2.2 - 3.5 ESD/bsa, LAX 2.4 cm/m 2 1.3 - 2.1 Aortic valve Value Ref FS, LAX 19 % 27 - 45 Leaflet sep, MM 1.68 cm ------- PW, ED 1.1 cm 0.6 - 0.9 Peak v, S 1.46 m/sec ------- PW, ES 1.4 cm --------- Mean v, S 0.94 m/sec ------- IVS/PW, ED 0.89 --------- VTI, S 26.0 cm ------- EF 39 % 54 - 74 Mean grad, S 4.0 mm Hg ------- E', lat stefania, TDI 4.0 cm/sec >=10.0 Peak grad, S 8.5 mm Hg ------- E/e', lat stefania, 18 --------- LVOT/AV, VTI ratio 0.5 ------- TDI ROSALINDA, VTI 1.73 cm 2 ------- E', med stefania, TDI 5.0 cm/sec >=7.0 LVOT/AV, Vpea k ratio 0.5 ------- E/e', med stefania, 14 --------- ROSALINDA, Vmax 1.73 cm 2 ------- PATIENT NAME: BREA GILES TDI E', avg, TDI 4.5 cm/sec --------- Mitral valve Value Ref E/e', avg, TDI 16 <=14 Peak E 0.72 m/sec ------- Peak A 0.48 m/sec ------- LVOT Value Ref Mean v, D 0.5 m/sec ------- Diam, S 2.10 cm --------- VTI leaflet coapt 27.8 cm ------- Area 3.5 cm 2 --------- Decel time 154 ms ------- Peak cedric, S 0.73 m/sec --------- PHT 40 ms ------- Mean cedric, S 0.47 m/sec --------- Mean grad, D 1.2 mm Hg ------- VTI, S 13.0 cm --------- Peak grad, D 4.3 mm Hg ------- Peak grad, S 2 mm Hg --------- Peak E/A ratio 1.52 ------- Mean grad, S 1 mm Hg --------- MVA, PHT 5.5 cm 2 ------- SV 45 ml --------- MR peak v 4.22 m/sec ------- Qs 3.77 L/min --------- Qs/bsa 1.8 L/(min-m 2) --------- Pulmonic valve Value Ref SV/bsa 21 ml/m 2 --------- SD v, ED 0.84 m/sec ------- Ventricular septum Value Ref Tricuspid valve Value Ref IVS, ED 1.0 cm 0.6 - 0.9 TR peak v 3.03 m/sec <=2.8 IVS, ES 1.4 cm --------- Peak RV-RA grad, S 37 mm Hg ------- Right ventricle Value Ref Aortic root Value Ref IESHA, LAX 3.2 cm --------- Root diam, ED MM 2.46 cm ------- Pressure, S 47 mm Hg --------- Pulmonary artery Value Ref RVOT Value Ref Pressure, S 44.1 mm Hg ------- Peak v, S 0.45 m/sec --------- Peak grad, S 1 mm Hg --------- Systemic veins Value Ref Estimated CVP 10 mm Hg ------- Left atrium Value Ref AP dim, ES 5.34 cm 2.70 - PATIENT NAME: BREA GILES Venkat 3.80 Area ES, A4C 27 cm 2 <=20 AP dim, ES MM 5.6 cm 2.7 - 3.8 LA/Ao root 2.29 --------- ratio, MM Conclusions Summary: 1. Left ventricle: The cavity size is dilated. W all thickness is normal. Systolic function is reduced. The estimated eje ction fraction is 25-29%. Severe hypokinesis. The study is not te chnically sufficient to allow evaluation of LV diastolic function du e to abnormal heart rhythm. 2. Right ventricle: The cavity size is dilated. Systolic function is reduced. Systolic pressure is mildly increased. The RV pressure during systole by Doppler is 47 mm Hg. 3. Left atrium: The atrium is mildly dilated. 4. Right atrium: The atrium is mildly dilated. 5. Mitral valve: There is moderate regurgitation , directed eccentrically and toward the free wall. 6. Tricuspid valve: There is mild-moderate regur gitation. Prepared and electronically signed by Norman Tucker MD 06/25/2019 12:32 at 1232 PATIENT NAME: BREA GILES 2019-06-25 09:52:00-00:00 [facility] ([facility]) History Physical - Adult REPORT#:[id number] REPORT STATUS: Signed DATE:06/25/19 TIME: 951 PATIENT: BREA GILES Venkat UNIT #: [id number] [facility] AGE: 73 SEX: F ATTEND: Martin Beard MD ADM AUTHOR: Nick Cabrear MD * ALL edits or amendments must be made on the [employer]computer document * History of Present Illness HPI Chief complaint: Shortness of breath. PCP: PCP: Out of town. HPI: Patient is a 73 year female with known asthma, C HF, arrhythmia, KAMALA, and fibromyalgia who was in her usual state of health until the day before yesterday when she started feeling shortness of breath. Ann gallegos noticed dyspnea at rest as well as with activity and it was associated with her heart pounding and skipping beats. She also repots laminei rakesh strange. She reports cough but no phlegm; denies chest pain. Her sister took her to [facility]; she was evaluated and noted to have pulmonary embolism as well as atria l fibrillation with RVR, therefore she was sent here for further management. She indicates that she has been taking care of h er terminally ill at home along with home hospice. She reports feelin g tired and exhausted. He has been placed in a [facility] for respite care. Informant/historian: patient, prior records History Past medical history: Reports: Arthritis, Asthma, Congestive heart chance lure, Cardiac dysrhythmias, Chronic pain. Additional medical history: FMR. KAMALA. TEMPORAL ARTERITIS. CHF. BORDERLINE DM. INTRACRANIAL TUMOR for which she's being followe d at [facility], and she was told it's benign. NO H/O CAD; cardiac cath was negative. BURSITIS OF THE KNEE. Past surgical history: Reports: Cholecystectomy, Hernia repair, Hystere ctomy. Additional surgical history: Right total knee replacement. Additional family history: Father of lung cancer. Mother of colon cancer. Son of Crohn's disease at age 41. Identical twin has CAD. One sister has some rare arthritis, and DM. Alcohol use: Denies EtOH use Drug use: Denies recreational drugs Smoking status for patients 13 years old or olde r: Never Smoker Other social history: Retired, Good social suppo rt Medication/Allergy-Vaccine Hx Home Medications: ACETAMINOPHEN (TYLENOL) 650 MG PO Q6H PRN PRN PA IN 1-5/HEADACHE/FEVER AMIODARONE (CORDARONE) 200 MG PO BID APIXABAN (ELIQUIS) 5 MG PO BID ASPIRIN 81 MG PO DAILY CARVEDILOL (COREG) 12.5 MG PO Q12HR DIGOXIN (LANOXIN) 0.125 MG PO DAILY DULoxetine DR (CYMBALTA) 60 MG PO BID FUROSEMIDE (LASIX) 40 MG PO DAILY HYDROcodone/APAP (NORCO 5/325) 1 TAB PO Q4H PRN PRN PAIN SCALE 4-6 LATANOPROST (XALATAN 0.005% OPHTH SOLN) 1 DROP E ACH EYE BEDTIME MELATONIN 6 MG PO BEDTIME PRN SLEEP metFORMIN (GLUCOPHAGE) 1,000 MG PO BID MEALS OMEPRAZOLE DR (OMEPRAZOLE) 20 MG PO DAILY predniSONE 20 MG PO DAILY Sacubitril/Valsartan (Entresto 24 MG-26 MG Table t) 1 TAB PO BID Allergies: Coded Allergies: No Known Allergies (06/25/19) Ambulatory status: Independent Review of Systems Constitutional: Reports: generalized weakness. Denies: fever, ma laise. Skin: Denies: bruising, contusion, ecchymosis, itching , laceration. Eyes: Denies: redness, discharge, visual loss/blurred, itching, diplopia, eye pain, photophobia. ENT: Denies: earache, mouth pain, nasal congestion, n ose bleeding, sore throat, tongue pain. Respiratory: Reports: CORTEZ (dyspnea on exertion), non producti ve cough. Denies: hemoptysis, pleurisy, pleuritic pain, wheezing. Cardiovascular: Reports: edema. Denies: chest pain, orthopnea, p alpitations. GI: Reports: constipation. Denies: abdominal pain, a norexia, diarrhea, dysphagia, melena, nausea, vomiting. : Denies: dysuria, flank pain, frequency, hematuri a, nocturia, urgency. Endocrine: Denies: cold intolerance, heat intolerance, poly dipsia, polyphagia, polyuria. Neuro: Denies: bladder dysfunction, bowel dysfunction, confusion, dizziness, gait problem, headache, numbness, slurred speech. Psych: Reports: stress. Denies: agitation, anxiety, dep ression. Physical Exam VS/I O Vital Signs: Date Time Temp Pulse Resp B/P B/P Pulse O2 O2 F low FiO2 Mean Ox Delivery Rate 06/25 0734 96.9 06/25 0440 89 30 138/69 95 99 06/25 0425 82 33 150/66 95 100 06/25 0410 82 29 159/60 87 99 06/25 0400 97.2 06/25 0355 79 31 162/74 91 99 06/25 0340 79 29 127/74 96 98 06/25 0325 84 24 130/68 93 98 06/25 0310 132 32 129/88 98 97 06/25 0255 131 31 129/69 82 97 06/25 0245 124 29 97 06/25 0225 117 29 130/67 85 99 06/25 0210 114 28 133/83 96 100 06/25 0155 103 26 143/69 95 98 06/25 0140 101 29 97/60 73 99 06/25 0137 101 30 156/93 109 98 06/25 0130 109 29 172/106 115 99 06/25 0110 104 32 103/81 90 99 06/25 0100 97.6 06/25 0055 99 26 96/67 77 99 06/25 0040 93 23 115/74 89 99 06/25 0030 Nasal 2.594481 cannula 06/25 0025 132 23 149/94 110 100 06/25 0015 105 28 114/72 85 99 06/25 0008 96 18 100 24 hour I O ending at 0700: 06/25 0700 06/24 1900 Intake Total 600 Output Total 0 Balance 600 Intake, Oral 600 Output, Urine 0 Patient 230 lb Weight Weight Bed scale Measurement Method Patient Weight Weight (lb): 230 Weight (oz): 6.13 Weight (kg): 104.500 General appearance: obese, alert, awake, oriente d, no acute distress, conversational Head/Eyes: atraumatic, clear cornea, PERRLA, mil d conjunctival pallor. ENT: moist mucosal membranes, normal pharynx Neck: non-tender, no bruit/NL carotids, supple/n o meningismus Cardiovascular: irregular rhythm, pedal edema Respiratory: clear to auscultation, aerating wel l, symmetric expansion Abdomen/GI: active bowel sounds, soft, non-tende r, no guarding Genitourinary: not indicated Extremities: pitting edema, moves all Musculoskeletal: normal inspection, no muscle sp asm Neuro/DYE BLENDER: alert, oriented X 3, normal speech, n o motor deficits Psychiatry: no hallucinations, normal judgment/i nsight, normal mood Results Findings/Data: Laboratory Tests: 06/25 06/25 06/25 06/25 0818 0756 0402 0402 Chemistry Sodium (137 - 145 MMOL/L) 136 L 136 L Potassium (3.5 - 5.1 MMOL/L) 3.8 3.9 Chloride (98 - 107 MMOL/L) 99 100 Carbon Dioxide (22 - 30 MMOL/L) 28 26 Anion Gap (14 - 24 MMOL/L) 13 L BUN (7 - 17 MG/DL) 22 H 21 H Creatinine (0.52 - 1.04 MG/DL) 1.00 1.10 H Glomerular Filtr Rate 54 49 Glucose (74 - 106 MG/DL) 147 H 181 H POC Glucose (60 - 99 MG/DL) 155 H Calcium (8.4 - 10.2 MG/DL) 8.9 9.2 Phosphorus (2.5 - 4.5 MG/DL) 4.2 Magnesium (1.6 - 2.3 MG/DL) 2.0 Total Bilirubin (0.2 - 1.3 MG/DL) 0.6 AST (14 - 36 UNITS/L) 68 H ALT (9 - 52 UNITS/L) 66 H Total Alk Phosphatase (38 - 126 UNITS/L) 137 H Total Creatine Kinase (30 - 135 UNITS/L) 28 L CK-MB (CK-2) (0.0 - 5.6 NG/ML) 1.00 CK-MB (CK-2) Rel Index (4.0 - 4.4 %) 3.6 L Troponin I (0.012 - 0.033 NG/ML) 0.127 *H Total Protein (6.3 - 8.2 G/DL) 6.0 L Albumin (3.5 - 5.0 G/DL) 3.4 L LDL Cholesterol (100 - 129 mg/dL) 84 L Hematology WBC (3.8 - 9.8 K/MM3) 14.4 H RBC (3.58 - 4.97 M/MM3) 4.38 Hgb (11.2 - 14.9 G/DL) 10.6 L Hct (33.2 - 43.5 %) 37.1 MCV (80.7 - 99.1 fL) 85 MCH (27.0 - 34.1 pg) 24.2 L MCHC (32.2 - 35.7 %) 28.6 L RDW (12.1 - 15.2 %) 16.1 H Plt Count (129 - 368 K/MM3) 391 H MPV (7.4 - 10.4 fl) 10.5 H Neut % (Auto) (43 - 75 %) 74.6 Lymph % (Auto) (14 - 44 %) 13.5 L Baca % (Auto) (4 - 13 %) 8.4 Eos % (Auto) (0 - 6 %) 1.9 Baso % (Auto) (0 - 2 %) 0.8 Neut # (Auto) (2.0 - 7.6 K/mm3) 10.79 H Lymph # (Auto) (1.0 - 3.8 K/mm3) 1.95 Baca # (Auto) (0.1 - 0.8 K/mm3) 1.21 H Eos # (Auto) (0.0 - 0.2 K/mm3) 0.27 H Baso # (Auto) (0.0 - 0.2 K/mm3) 0.11 Immature Gran % (0.0 - 2.0 %) 0.8 Nucleated RBC % (0 - 1.0 %) 0.0 Nucleated RBCs # (Man) (0.0 - 0.1 K/mm3) 0.00 06/25 0312 Chemistry POC Glucose (60 - 99 MG/DL) 177 H Radiology data: Recent Impressions: RADIOLOGY - XR CHEST 1V 06/25 0633 Report Impression - Status: SIGNED Entered: 06/25/2019 0810 Impression: Findings are most compatible with congestive hea rt failure and resultant edema. Impression By: [email or web address] - Alf Schwarz M.D. Diagnosis, Assessment Plan Free Text DxA P Notes Free Text DxA P Notes: - PULMONARY EMBOLISM. - CHF DUE TO SYSTOLIC DYSFUNCTION, acute on alliances consultant rosendo. - ATRIAL FIBRILLATION WITH RVR; resolved. - CKD, stage 3. - BORDERLINE DM. - OSTEOARTHRITIS. - CHRONIC KNEE BURSITIS. - OBSTRUCTIVE SLEEP APNEA. - MORBID OBESITY. PLAN: - Patient was transferred from [facility] last night and got admitted to ICU. - Will transfer her out of ICU to telemetry. - Continue Lovenox. - Resume home medications. - Cardiology consult. - Continue IV Lasix started by Ethnology Teacher. - Follow labs and CXR. Quality Medications Current medication review: I attest that the foregoing medication list in [facility] medical record is true, accurate, and complete to the best of my knowled ge. Advanced Care Plan 65 or Older Discussed with: patient Discussion included: code status (full code) BMI Screening > 25 or < 18.5 Patient's BMI: Current BMI: 46.5 BMI status/follow-up: abnl BMI, pt to F/U w/PCP (to discuss diet exercise) Tobacco Use/Counseling Tobacco use/counseling: non tobacco user, no cou nseling needed HTN Screening/Follow-up Last documented vitals: Last Documented: Result Date Time Pulse Ox 97 06/26 1950 B/P 109/75 06/26 1950 B/P Mean 86.4 06/26 1950 O2 Delivery Nasal cannula 06/26 1950 Temp 98.4 06/26 1950 Pulse 74 06/26 1950 Resp 18 06/26 1950 FiO2 32 06/26 1850 O2 Flow Rate 3.140959 06/26 185 B/P assess/follow-up: normal B/P, no f/u req Electronically Signed by Nick Cabrera MD on 07/31 at 1100 RPT #:[id number] END OF REPORT 2019-06-25 07:40:00-00:00 [id number] [place] [id number] PATIENT NAME: FREDCAMILA BREA GARCIA ADMIT DATE : 06/25/19 ACCOUNT NO: [id number] ROOM NO: Z.I10 AGE: 73 REPORT TYPE: ELECTROCARDIOGRAM SEX: F ADMITTING PHYSICIAN:Nick Cabrera MD ATTENDING PHYSICIAN:Nick Cabrera MD Order: [id number] Test Reason : AFib Test Date/Time Stamp: TueJun 25 2019 07:40:10 Blood Pressure : / mmHG Vent. Rate : 114 BPM Atrial Rate : 114 BPM P-R Int : 136 ms QRS Dur : 088 ms QT Int : 280 ms P-R-T Axes : 069 019 -30 degree s QTc Int : 385 ms Sinus tachycardia with premature supraventricula r complexes with occasional premature ventricular complexes with junctional escape complexes Nonspecific T wave abnormality Abnormal ECG No previous ECGs available Confirmed by NORMAN TUCKER ([id number]) on 06/25/2019 12:35:09 PM Referred By: Viviana Thompson Confirmed by:NORMAN LAGOS I at 1235 PATIENT NAME: FREDCAMILA BREA GARCIA 2019-06-25 07:40:00-00:00 [id number] [facility] [address] [place] [address] PATIENT NAME: BREA GILES ADMIT DATE : 06/25/19 ACCOUNT NO: [id number] ROOM NO: Z.410 AGE: 73 REPORT TYPE: ELECTROCARDIOGRAM SEX: F ADMITTING PHYSICIAN:Nick Cabrera MD ATTENDING PHYSICIAN:Nick Cabrera MD Order: [id number] Test Reason : AFib Test Date/Time Stamp: TueJun 25 2019 07:40:10 Blood Pressure : / mmHG Vent. Rate : 114 BPM Atrial Rate : 114 BPM P-R Int : 136 ms QRS Dur : 088 ms QT Int : 280 ms P-R-T Axes : 069 019 -30 degree s QTc Int : 385 ms Sinus tachycardia with premature supraventricula r complexes with occasional premature ventricular complexes with junctional escape complexes Nonspecific T wave abnormality Abnormal ECG No previous ECGs available Confirmed by NORMAN TUCKER ([id number]) on 06/27/2019 7:07:27 PM Referred By: Viviana Thompson Confirmed by:NORMAN LAGOS I at 1907 PATIENT NAME: BREA GILES 2019-06-25 07:33:00-00:00 [id number] [facility] [address] [place] [address] PATIENT NAME: BREA GILES ADMIT DATE : 06/25/19 ACCOUNT NO: [id number] ROOM NO: Z.410 AGE: 73 REPORT TYPE: CONSULTATION REPORT SEX: F ADMITTING PHYSICIAN:Nick Cabrera MD ATTENDING PHYSICIAN:Nick Cabrera MD CONSULTATION DATE: CONSULTING PHYSICIAN: Alexandr Ham MD REASON FOR CONSULTATION: We were asked to evalua te this patient for atrial fibrillation. REFERRING PHYSICIAN: Dr. Thompson. REASON FOR CONSULTATION: We are asked to evaluat e this patient for atrial fibrillation. HISTORY OF PRESENT ILLNESS: This is a 73-year-ol d female with a history of nonischemic cardiomyopathy, temporal art eritis, fibromyalgia, who presented to the Emergency Room with complaints of shortness of breath and rapid palpitations. The shortness of breath has been present for approximately a week prior to presentation. She became excessively sh ort of breath with minimal exertion. She developed some chest discomfort in the left lower chest, radiating from the back anteriorly. It was moder ate discomfort that was "muscular like." There was no radiation of the d iscomfort. There was associated shortness of breath. The pain came on with the shortness of breath. She has currently has no chest pain. She is feel ing better at this time. PAST MEDICAL HISTORY: 1. Nonischemic dilated cardiomyopathy. 2. Temporal arteritis. 3. Diabetes. 4. Borderline troponin. FAMILY HISTORY: Twin sister has a history of cor onary artery disease with myocardial infarction. SOCIAL HISTORY: No tobacco. Occasional alcohol. The patient is currently caring for her who is in hospice. ALLERGIES: NKDA. HOME MEDICATIONS: Cymbalta, furosemide 80 mg mary kate ly, Omeprazole 20 mg daily, Xigduo 01/1000, and prednisone 20 mg daily. REVIEW OF SYSTEMS: CONSTITUTIONAL: No fever or chills. PATIENT NAME: BREA GILES ENMT: Intermittent recurring headaches with temp oral arteritis. EYES: No complaints of blurred vision. RESPIRATORY: Shortness of breath with minimal ex ertion. CARDIOVASCULAR: Rapid palpitations with transien t chest discomfort. GASTROINTESTINAL: No complaints of nausea or vom iting. GENITOURINARY: No complaints of urinary frequenc y or dysuria. MUSCULOSKELETAL: No complaints of joint pain. SKIN: No complaints of skin rash. NEUROLOGIC: No complaints of focal weakness. Int ermittent headaches with temporal arteritis. PHYSICAL EXAMINATION: GENERAL: Elderly obese female, in no acute distr ess. VITAL SIGNS: Temperature 97.2, blood pressure 13 8/69, pulse 89, respiratory rate 30, and O2 saturations 99%. ENMT: Atraumatic, normocephalic. RESPIRATORY: Normal effort. Diminished breath so unds at the lung bases. CARDIOVASCULAR: Irregular S1 and S2. No S3 or S4 . ABDOMEN: Soft, nontender. NECK: JVP, unable to evaluate. No carotid bruits . EXTREMITIES: 1+ pitting pedal edema. NEURO: Cranial nerves II through XII are intact. No focal motor deficits noted. DIAGNOSTIC STUDIES: Chest CT shows an acute pulm onary embolism identified in the right inferior segmental branches. Lungs, di ffuse bilateral ground glass appearance consistent with pulmonary hilton ma. Small bilateral pleural effusions, right greater than left with compressive atelect asis. Mild coronary arterial calcification. Cardiomegaly. LABORATORY DATA: Sodium 136, potassium 3.9, chlo ride 100, CO2 26, BUN 21, creatinine 1.1, glucose 181, and calcium 9.2. Tr oponin I of 0.127. Albumin 3.4. Telemetry shows sinus rhythm with freque nt premature atrial complexes. Outside electrocardiogram shows atrial fibrillation with a rapid ventricular response with occasional premature ventricular complexes. EKG, probable multifocal atrial tachycardia. IMPRESSION: 1. Probable multifocal atrial tachycardia -- con trolled now. Frequent premature atrial and premature ventricular compl exes. 2. Acute pulmonary embolism. 3. History of temporal arteritis. 4. Diabetes. 5. Borderline troponin. 6. Volume overload. RECOMMENDATIONS: 1. Diuresis with intravenous Lasix. 2. Increase carvedilol. 3. 2-D echocardiogram. 4. Follow electrolytes, renal function, and card iac enzymes. 5. Anticoagulation. PATIENT NAME: BREA GILES Dictated By: Alexandr Ham MD WT: CON:ALCON/PEPPATRIA/NTS Conf#: [id number]/DID#: [id number] Authenticated by Alexandr Ham MD On 06/28/20 05:47:42 AM at 0547 PATIENT NAME: BREA GILES 2019-06-25 00:58:00-00:00 [facility] ([facility]) Critical Care Consult Note REPORT#:[id number] REPORT STATUS: Signed DATE:06/25/19 TIME: 57 PATIENT: BREA GILES UNIT #: [id number] ROOM/BED: [address] : 45 AGE: 73 SEX: F ATTEND: Viviana Thompson ADM AUTHOR: Corey Lord DO * ALL edits or amendments must be made on the el [employer]/computer document * History of Present Illness HPI Requesting clinician: Dr. Thompson Reason for consult: Afib, CHF exacerbation, Pulmonary embolism Chief complaint: SOB HPI: 73-year-old female transferred from [facility] for further management and evaluation of pulmonary embolism, shortness of b reath, systolic heart failure exacerbation. The patient states that she is bee n progressively getting short of breath over the last few days and went to the emergency department [place]. Initial evaluation re vealed the patient had a pulmonary embolism, pulmonary congestion and devan e infiltrates which could indicate pneumonitis. The patient was transferre d to [facility] for higher level of care. She received Love nox 1mg/kg. The patient was started on diltiazem drip to control her heart r ate at the outside facility. [facility] the patient was given Lopressor IV which controlled her heart rate and diltiazem wa s weaned off. Past medical history significant for atrial fibr illation, congestive heart failure, viral cardiomyopathy, hypertension, Past surgical history significant for ri ght knee replacement, abdominal hernia repair, cholecystectomy, and possible colectomy the patient was unsure, hysterectomy Allergies no known drug allergies Social history the patient denies tobacco, alcoh ol, and illicit drug use currently she is retired and takes care of her h usband. The patient reports that her has stage IV cancer and is sche duled to come home on hospice care tomorrow. The patient is full code for now her next of kin is her however he is ill and she is defer decision making in the event she cannot speak for herself to her twin sister. CT angiogram was performed at the outside facili ty revealed the following information acute pulmonary embolism in the righ t inferior segment branch. Cardiomegaly with mild pulmonary edema and bilat eral small pleural effusion. Findings suggestive of congestive heart failure. Chest x-ray performed at the outside facility re vealed the following mild cardiomegaly and interstitial pulmonary edema th at basilar opacity likely representing atelectasis, however, underlying pn eumonia cannot be excluded in appropriate clinical setting. Laboratory data pe rformed at outside facility reviewed the following sodium 143, potas sium 3.8, chloride 103, bicarb 26, BUN 18, glucose 282, creatinine 0.93, total bili 0.9, calcium 9.7, total protein 7, albumin 4.0, alkaline phosphatase 117, ALT 66, A ST 61, ejection fraction was calculated 59.1. D-dimer is 0.5 troponin is 0.113, NT proBNP is 12,000, lactic acid was 2.35 WBC 17.18, RBC is 5.04, hemo globin was 12.4, hematocrit is 41.1, platelets 474,. Urine analysis reveals clear yellow urine with a pH of 6.0, specific gravity 1.021, glucose 500 mcg/dL, but was negative, ket ones 5, protein was negative, urobilin normal, bilirubin negative, nit rates negative, leukocyte esterase 75, RBCs 5, WBC 8, bacteria few, mucus sligh t, squamous epithelial cells one had a cast 4 Family history noncontributory History - Adult longitudinal Allergies: Coded Allergies: No Known Allergies (06/25/19) Review of Systems Respiratory: Reports: SOB. All systems rev neg: except as marked Objective Physical Exam: VS/I O: Last Documented: Result Date Time O2 Delivery Nasal cannula 06/25 30 O2 Flow Rate 2.240079 06/25 30 Medications: Active Meds + DC'd Last 24 Hrs Aspirin 81 MG DAILY PO Azithromycin 500 MG DAILY PO (CKD) Carvedilol 3.125 MG Q12HR PO Ceftriaxone Sodium 1,000 MG Q24H IV Sodium Chloride 10 ML Enoxaparin Sodium 0 Q12HR SUBQ (CANr) Enoxaparin Sodium 101 MG Q12HR SUBQ (UNV) Furosemide 20 MG DAILY IV Mupirocin 1 APPLIC BID NASAL Metoprolol Tartrate 5 MG NOW ONE IV Hydralazine HCl 10 MG Q6H PRN PRN IV Magnesium Sulfate/Dextrose 100 ML ASDIR PRN IV ( CKD) Magnesium Sulfate/Dextrose 100 ML ASDIR PRN IV ( CKD) Miscellaneous Information 1 EACH ASDIR MISC Miscellaneous Information 1 EACH ASDIR MISC Miscellaneous Information 1 EACH ASDIR MISC Potassium Chloride 20 MEQ ASDIR PRN PO Potassium Chloride 100 ML ASDIR PRN IV Potassium Chloride 10 MEQ ASDIR PRN PO Potassium Chloride 50 ML ASDIR PRN IV Potassium Phosphate 20 MM ASDIR PRN IV (CKD) Sodium Chloride 250 ML Potassium Phosphate 30 MM ASDIR PRN IV (CKD) Sodium Chloride 250 ML General appearance: obese, a lert, awake, oriented, no acute distress, pleasant, conversational, mental status normal, no respira tory distress Head/Eyes: atraumatic, normocephalic, PERRLA, EO MA, clear cornea ENT: normal dentition, normal ear left, normal e ar right, normal nose Neck: full range of motion, no JVD, no lymphaden opathy Cardiovascular: irregular rate and rhythm, tachy cardia, normal S1 S2 Respiratory/Chest: decreased breath sounds, no d istress, no tenderness Abdomen: distended, soft, non-tender Extremities: edema (+3), moves all, no clubbing, no cyanosis Neuro/DYE BLENDER: alert, oriented X 3, CNII-XII intact, no motor deficits, no sensory deficits Skin: dry, intact, normal color, normal temperat ure, no rash Results: Results: labs reviewed, current med profile rev' d Diagnosis, Assessment Plan Diagnosis, Assessment Plan Free Text A P: 73-year-old female transferred to [facility] for higher level of care for the management of PE, heart failure, shortness of breath, atrial fibrillation with RVR 1. Acute pulmonary emboli in the right inferior segmental branch./SOB At this time I will continue Lovenox 1 mg/kg every 12 the patient's shortness of breath is significantly improved. I will obtain an echocardiogram to evaluate the patient's right ventricle and her cardiac fu nction given her cardiac history. The diltiazem will be weaned off and wi ll attempt Lopressor 5 mg IV push and continue to monitor the patient's hemod ynamics. The patient is hemodynamically stable without any respiratory c ompromise. There is no conversational dyspnea appre ciated and the patient states she is feeling better. The patient will most likely need antic oagulation for the rest of her life in light of her atrial fibrillation. If indicated I recommend a dude wrangler consultation for further work-up and possible ca use of the patient's PE. 2. Atrial fibrillation with RVR/HTN The patient states that she does not take antico agulants at home however she vaguely remembers that she h as atrial fibrillation. The patient is currently on Lovenox 1 mg/kg. I will obtain an echoca rdiogram for further evaluation of the patient's cardiac function. The patient will mos t likely need anticoagulation for the rest of her life. I will initiate Coreg 3.125 and increases the patient tolerates for optimal heart rate control. The Co reg should help with blood pressure control as well 3. History of heart failure/viral cardiomyopathy . I will obtain an echocardiogram to evaluate the patient's ejection fraction based on this I will consider initiating KIKA/ARB . I will add Coreg 3.125 for now and increase as the patient tolerates. The p atient will be given Lasix 20 mg in the morning. 4. Diabetes mellitus uncontrolled I will add sliding scale insulin for now and continue to monitor the patient's blood sugar levels 5. Morbid obesity This is a single most risk factor for fu rther decline of the patient's health. Her BMI is 46. Weight loss via diet and exercise and possibly consideration of bariatric surgery is a outpatient is highly aaron mmended. 6. Goals of care We discussed advanced direct chandrakant and the patient appears to be tending to no CPR however she states that we should give it a try as we do not know what the outcome may be. She did express that she would n ot want to be in a vegetative state and prefer to go on and meet God instead o f being on machines for prolonged period of time. The patient st ates that her is currently ill with stage IV cancer and is going to be in hospi ce care starting tomorrow and she has deferred all decision making to her twin sister in the event if she cannot speak for herself. She wants to think abo ak advanced directives more before making a final decision therefore the pat ient is full code for now. DVT prophylaxis the patient will be placed on Lo venox will most likely need anticoagulation for the rest of her life in light of atrial fibrillation and the PE. If the patient remains hemod ynamically stable without any respiratory compromise she can be transferred to the floor later today. The diltiazem will be weaned off and the patient's heart rate will be control led beta-blockade.. Further recommendations to follow the case unfol ds Critical care time 100 minutes Orders: Procedure Date/time Status XR CHEST 1V 06/25 800 Active PHOSPHOROUS 06/25 800 Active MAGNESIUM 06/25 800 Active CBC W/AUTO DIFF 06/25 800 Active BASIC METABOLIC PANEL 06/25 800 Active Potassium Replacement Labs 06/25 57 Active Phosphorous Replacement Labs 06/25 57 Active Notify MD - Labs 06/25 57 Active Medication Instructions 06/25 57 Active Magnesium Replacement Labs 06/25 57 Active Exclusion criteria 06/25 57 Active PHARMACY CONSULT 06/25 57 Complete Plan discussed with: patient, nurse Code Status/Resusc. Discussion Resuscitation discussion: Discussed with: patient Resusc. attempts may: be futile, cause poor rosalind l. of life, not incr. possib survival Pt/family expressed: desire for full code Code status: full code Quality Medications Current medication review: I attest that the foregoing medication list in t he medical record is true, accurate, and complete to the best of my knowled ge. VTE Prophylaxis VTE prophylaxis initiated: yes Advanced Care Plan 65 or Older Discussed with: patient Discussion included: code status BMI Screening > 25 or < 18.5 Patient's BMI: Current BMI: 46.5 BMI status/follow-up: abnl BMI, pt to F/U w/PCP at 0623 RPT #:[id number] END OF REPORT
[2023-06-06 08:26] LABS: Hematocrit 40.3 % (36.0-45.0); MCV 91.1 fL (80-100); Platelets 268 thou/uL (152-406); RBC Red Blood Cell Count 4.42 M/uL (3.86-4.86)
[2023-06-06 08:27] LABS: Absolute Lymphocytes (CBC) 1.4 K/uL (0.7-4.9); MPV 7.6 fL (7.6-11.3)
[2023-06-06 08:34] LABS: Protime INR 1.08
[2023-06-06 08:47] LABS: Albumin 3.2 g/dL (3.4-5.0); Bilirubin Direct 0.2 mg/dL (0-0.2); Bilirubin Indirect, Calculated 0.3 mg/dL (0.2-0.8); Bilirubin Total 0.5 mg/dL (0.2-1.0); Magnesium 1.5 mg/dL (1.6-2.4); Potassium 3.7 mEq/L (3.5-5.1); Protein, Total 6.3 g/dL (6.4-8.2)
[2023-06-06] MEDS ORDERED: ASPIRIN 81 MG CHEWABLE TABLET ONE (08:49)
[2023-06-06 09:14] LABS: Troponin High Sensitivity 72.9 pg/mL (<58.9)
--- NOTE | 2023-06-06 09:24 | RAD REPORT ---
EXAM DESCRIPTION: Celia Single View06/06/2023 9:04 am CLINICAL HISTORY: Chest pain COMPARISON: January 2023 FINDINGS: The lungs appear clear of acute infiltrate. The heart is moderately enlarged. Pacemaker leads in place IMPRESSION: No acute abnormalities displayed
[2023-06-06] MEDS ORDERED: MAGNESIUM SULFATE 1 gm IVPB 1 GM/100 ML BAG IV ONE (09:40)
[2023-06-06] MEDS ORDERED: FUROSEMIDE 20 MG/ 2ML VIAL ONE (09:40)
--- NOTE | 2023-06-06 10:04 | EDPHYS ---
Physician Documentation [facility] Name: Jelly Garcia Age: 77 yrs Sex: Female : 1945 Arrival Date: 06/06/2023 Time: 08:05 Bed 3 Private MD: ED Physician Gil Campos HPI: 06/06 08:14 This 77 yrs old Female presents to ER via Unassigned with complaints of pacemaker fired.snw 08:14 The patient presents with a history of asymptomatic prior to discharge. Onset: The snw symptoms/episode began/occurred acutely. Duration: The patient or guardian reports a single episode, happened one other time since placement in 2019. Severity of symptoms: At their worst the symptoms were very mild. The patient has experienced a previous episode, 2019. Historical: - Allergies: 08:31 No Known Allergies; ll1 - PMHx: :31 Fibromyalgia; Hypertension; Temporal Arteritis; Diabetes - NIDDM; Atrial Fib; ll1 - Immunization history:: Adult Immunizations up to date. - Social history:: Smoking status: Patient denies any tobacco usage or history of. ROS: 08:13 Constitutional: Negative for fever, chills, and weight loss, Eyes: Negative for injury, snw pain, redness, and discharge, ENT: Negative for injury, pain, and discharge, Neck: Negative for injury, pain, and swelling, Cardiovascular: Negative for chest pain, palpitations, and edema, Defibrillator fired this am as pt was readying for bed Respiratory: Negative for shortness of breath, cough, wheezing, and pleuritic chest pain, Abdomen/GI: Negative for abdominal pain, nausea, vomiting, diarrhea, and constipation, Back: Negative for injury and pain, : Negative for injury, bleeding, discharge, and swelling, MS/Extremity: Negative for injury and deformity, Skin: Negative for injury, rash, and discoloration, Neuro: Negative for headache, weakness, numbness, tingling, and seizure, Psych: Negative for depression, anxiety, suicide ideation, homicidal ideation, and hallucinations. Exam: 08:12 Constitutional: This is a well developed, well nourished patient who is awake, alert, snw and in no acute distress. Head/Face: Normocephalic, atraumatic. Eyes: Pupils equal round and reactive to light, extra-ocular motions intact. Lids and lashes normal. Conjunctiva and sclera are non-icteric and not injected. Cornea within normal limits. Periorbital areas with no swelling, redness, or edema. ENT: Nares patent. No nasal discharge, no septal abnormalities noted. Tympanic membranes are normal and external auditory canals are clear. Oropharynx with no redness, swelling, or masses, exudates, or evidence of obstruction, uvula midline. Mucous membranes moist. Neck: Trachea midline, no thyromegaly or masses palpated, and no cervical lymphadenopathy. Supple, full range of motion without nuchal rigidity, or vertebral point tenderness. No Meningismus. Chest/axilla: Normal chest wall appearance and motion. Nontender with no deformity. No lesions are appreciated. Respiratory: Lungs have equal breath sounds bilaterally, clear to auscultation and percussion. No rales, rhonchi or wheezes noted. No increased work of breathing, no retractions or nasal flaring. Abdomen/GI: Soft, non-tender, with normal bowel sounds. No distension or tympany. No guarding or rebound. No evidence of tenderness throughout. Back: No spinal tenderness. No costovertebral tenderness. Full range of motion. Skin: Warm, dry with normal turgor. Normal color with no rashes, no lesions, and no evidence of cellulitis. MS/ Extremity: Pulses equal, no cyanosis. Neurovascular intact. Full, normal range of motion. Neuro: Awake and alert, GCS 15, oriented to person, place, time, and situation. Cranial nerves II-XII grossly intact. Motor strength 5/5 in all extremities. Sensory grossly intact. Cerebellar exam normal. Normal gait. Psych: Awake, alert, with orientation to person, place and time. Behavior, mood, and affect are within normal limits. 08:12 Cardiovascular: Rate: normal, Rhythm: irregularly irregular, Pulses: no pulse deficits are appreciated, Heart sounds: normal, Edema: 1+ edema to level of left ankle, left foot, left toes, right ankle, right foot and right toes. Vital Signs: 08:10 BP 167 / 83; Pulse 72; Resp 17; Temp 98.1; Pulse Ox 95% on R/A; Pain 2/10; ll1 09:06 BP 149 / 79; Pulse 64; Resp 17; Pulse Ox 95% on R/A; ll1 10:28 BP 160 / 62; Pulse 60; Resp 16; Pulse Ox 95% on R/A; ll1 12:40 BP 174 / 87; Pulse 71; Resp 18; Pulse Ox 95% on R/A; mb9 08:10 Pain Scale: Adult ll1 MDM: 08:11 Patient medically screened. snw 09:57 SADA Risk Score: 1 - Patient's age is greater or equal to 65, 1 - 3 or more CAD risk snw factors, 1 - Known CAD, 1 - Recent [<24 hrs] Severe Angina, 1 - Elevated Cardiac Markers. Data reviewed: vital signs, nurses notes. I considered the following discharge prescriptions or medication management in the emergency department Medications were administered in the Emergency Department. See MAR. Historians other than the Patient: EMS: Carlos Rodriguez. Care significantly affected by the following chronic conditions: Diabetes, Hypertension, Congestive Heart Failure. Counseling: I had a detailed discussion with the patient and/or guardian regarding the historical points, exam findings, and any diagnostic results supporting the discharge/admit diagnosis, the presence of at least one elevated blood pressure reading (>120/80) during this emergency department visit, lab results, radiology results, the need for further work-up and treatment in the hospital. Response to treatment: the patient's symptoms have mildly improved after treatment. ED course: interrogating pacemaker at this time. 06/06 08:11 Order name: Basic Metabolic Panel; Complete Time: 09:21 snw 06/06 08:11 Order name: CBC with Diff; Complete Time: : snw 06/06 08:11 Order name: LFT's; Complete Time: : snw 06/06 08:11 Order name: Magnesium; Complete Time: : snw 06/06 08:11 Order name: NT PRO-BNP; Complete Time: :21 snw 06/06 08:11 Order name: PT-INR; Complete Time: : snw 06/06 08:11 Order name: Troponin HS; Complete Time: : snw 06/06 12:27 Order name: Phosphorus; Complete Time: 12:30 EDMS 06/06 12:27 Order name: T4 Free; Complete Time: 12:30 EDMS 06/06 12:27 Order name: Magnesium; Complete Time: 12:30 EDMS 06/06 12:27 Order name: Thyroid Stimulating Hormone; Complete Time: 12:30 EDMS 06/06 14:45 Order name: Troponin High Sensitivity; Complete Time: 16:56 EDMS 06/06 08:11 Order name: XRAY Chest (1 view); Complete Time: 09:26 snw 06/06 08:11 Order name: EKG; Complete Time: 08:14 snw 06/06 08:11 Order name: Cardiac monitoring; Complete Time: 08:16 snw 06/06 08:11 Order name: EKG - Nurse/Tech; Complete Time: 08:16 snw 06/06 08:11 Order name: IV Saline Lock; Complete Time: 08:16 snw 06/06 08:11 Order name: Labs collected and sent; Complete Time: 08:22 snw 06/06 08:11 Order name: O2 Per Protocol; Complete Time: 08:16 snw 06/06 08:11 Order name: O2 Sat Monitoring; Complete Time: 08:16 snw 06/06 08:13 Order name: Misc. Order: call for pacemaker rhythm record; Complete Time: 09:13 snw EC:18 Rate is 72 beats/min. Rhythm is irregular. QRS [place] is Normal. UT interval is snw shortened. Clinical impression: Sinus arrythmia and only 2 pacer spikes and possible U wave. Administered Medications: 08:40 Drug: Aspirin PO Chewable Tablet 324 mg Route: PO; ll1 11:57 Follow up: Response: No adverse reaction ll1 09:43 Drug: Magnesium Sulfate IVPB 1 grams Route: IVPB; Infused Over: 1 hrs; Site: left ll1 antecubital; 11:57 Follow up: Response: No adverse reaction; IV Status: Completed infusion; IV Intake: [id number] 09:43 Drug: Furosemide IVP 20 mg Route: IVP; Site: left antecubital; ll1 11:57 Follow up: Response: No adverse reaction ll1 14:22 Drug: Metoprolol PO 25 mg Route: PO; kc6 Disposition: 16:35 Co-signature as Attending Physician, Gil Campos MD I reviewed the patient's care rn provided by the Advanced Practice Provider and agree with the diagnosis and treatment plan. Disposition Summary: 06/06/23 10:04 Hospitalization Ordered Hospitalization Status: Inpatient Admission snw Provider: Gasper Jiménez snw Location: Telemetry/MedSurg (Inpatient) snw Condition: Stable snw Problem: new snw Symptoms: are unchanged snw Bed/Room Type: Standard snw Room Assignment: 204(06/06/23 14:06) trent Diagnosis - Encounter for adjustment and management of automatic implantable cardiac snw defibrillator - Unspecified systolic (congestive) heart failure snw - Elevated troponin snw Forms: - Medication Reconciliation Form snw - SBAR form snw - Leadership Thank You Letter snw Signatures: Dispatcher [employer] EDMS Uma Christianson, EXECUTIVE TALENT ACQUISITION CONSULTANT-C EXECUTIVE TALENT ACQUISITION CONSULTANT-Csnw Gil Campos MD MD rn Swanson, Donovan ds4 King Cheney RN RN ja1 Eva Patel RN RN pedro pablo1 Viridiana Velez RN RN kc6 Corrections: (The following items were deleted from the chart) 13:45 10:04 snw ds4 14:06 13:45 404 ds4 ja1
--- NOTE | 2023-06-06 10:04 | ER ---
Nurse's Notes [facility] Name: Jelly Garcia Age: 77 yrs Sex: Female : 1945 Arrival Date: 06/06/2023 Time: 08:05 Bed 3 Private MD: Diagnosis: Encounter for adjustment and management of automatic implantable cardiac defibrillator;Unspecified systolic (congestive) heart failure;Elevated troponin Presentation: 06/06 08:10 Chief complaint: Patient states: Defibrillator went off just ANIMAL SITTER after using restroom. ll1 Feels weak and chest feels tender. Coronavirus screen: Client denies travel out of the [place] in the last 14 days. At this time, the client does not indicate any symptoms associated with coronavirus-19. Ebola Screen: Patient denies travel to an Ebola-affected area in the 21 days before illness onset. Initial Sepsis Screen: Does the patient meet any 2 criteria? No. Patient's initial sepsis screen is negative. Does the patient have a suspected source of infection? No. Patient's initial sepsis screen is negative. Risk Assessment: Do you want to hurt yourself or someone else? Patient reports no desire to harm self or others. Onset of symptoms was June 06, 2023. 08:10 Method Of Arrival: EMS ll1 08:10 Acuity: BRIAN 2 ll1 Triage Assessment: 08:13 General: Appears in no apparent distress. Behavior is calm, cooperative, appropriate ll1 for age. Pain: Complains of pain in chest Pain currently is 2 out of 10 on a pain scale. Quality of pain is described as tender. Neuro: Reports weakness. Cardiovascular: Reports chest pain, fatigue. Historical: - Allergies: 08:31 No Known Allergies; ll1 - PMHx: 08:31 Fibromyalgia; Hypertension; Temporal Arteritis; Diabetes - NIDDM; Atrial Fib; ll1 - Immunization history:: Adult Immunizations up to date. - Social history:: Smoking status: Patient denies any tobacco usage or history of. Screenin:07 [facility] ED Fall Risk Assessment (Adult) Score/Fall Risk Level 0 - 2 = Low Risk ll1 Oriented to surroundings, Maintained a safe environment, Educated pt \T\ family on fall prevention, incl call for assistance when getting out of bed, Hourly rounding (assess needs \T\ fall precautionary measures) done. Abuse screen: Denies threats or abuse. Nutritional screening: No deficits noted. Tuberculosis screening: No symptoms or risk factors identified. Assessment: 08:35 Reassessment: No changes from previously documented assessment. Patient and/or family ll1 updated on plan of care and expected duration. Pain level reassessed. Patient is alert, oriented x 3, equal unlabored respirations, skin warm/dry/pink. 09:19 Reassessment: No changes from previously documented assessment. Patient and/or family ll1 updated on plan of care and expected duration. Pain level reassessed. Patient is alert, oriented x 3, equal unlabored respirations, skin warm/dry/pink. 09:45 Reassessment: No changes from previously documented assessment. Patient and/or family ll1 updated on plan of care and expected duration. Pain level reassessed. Patient is alert, oriented x 3, equal unlabored respirations, skin warm/dry/pink. 12:10 General: Appears in no apparent distress. Behavior is calm, cooperative. Pain: Denies mb9 pain. Neuro: Awan Agitation-Sedation Scale (RASS): 0 - Alert and Calm Level of Consciousness is awake, alert, obeys commands, Oriented to person, place, time, situation, Appropriate for age. Cardiovascular: Heart tones S1 S2 present Patient's skin is warm and dry. Respiratory: Airway is patent Respiratory effort is even, unlabored, Respiratory pattern is regular, symmetrical, Breath sounds are clear bilaterally. GI: Abdomen is round non-distended, Bowel sounds present X 4 quads. Abd is soft and non tender X 4 quads. : No signs and/or symptoms were reported regarding the genitourinary system. Derm: Skin is pink, warm \T\ dry. Musculoskeletal: Range of motion: intact in all extremities. 13:10 Reassessment: No changes from previously documented assessment. Patient and/or family mb9 updated on plan of care and expected duration. Pain level reassessed. Patient is alert, oriented x 3, equal unlabored respirations, skin warm/dry/pink. 13:43 Reassessment: see [facility] for further charting. mb9 14:25 Reassessment: Attempted to call report to admitting nurse. No answer. mb9 Vital Signs: 08:10 BP 167 / 83; Pulse 72; Resp 17; Temp 98.1; Pulse Ox 95% on R/A; Pain 2/10; ll1 09:06 BP 149 / 79; Pulse 64; Resp 17; Pulse Ox 95% on R/A; ll1 10:28 BP 160 / 62; Pulse 60; Resp 16; Pulse Ox 95% on R/A; ll1 12:40 BP 174 / 87; Pulse 71; Resp 18; Pulse Ox 95% on R/A; mb9 08:10 Pain Scale: Adult ll1 ED Course: 08:09 Patient arrived in ED. ds4 08:10 Uma Christianson FNP-C is PHCP. snw 08:10 Arm band placed on Patient placed in an exam room, on a stretcher. ll1 08:11 Gil Campos MD is Attending Physician. snw 08:22 Initial lab(s) drawn, by me, sent to lab. Maintain EMS IV. Dressing intact. Good blood jl7 return noted. Site clean \T\ dry. Gauge \T\ site: 18 left AC. 08:30 Eva Patel RN is Primary Nurse. ll1 08:33 Triage completed. ll1 09:05 XRAY Chest (1 view) In Process Unspecified. EDMS 09:07 Patient has correct armband on for positive identification. Bed in low position. Call 1 light in reach. Client placed on continuous cardiac and pulse oximetry monitoring. NIBP monitoring applied. athletic monitor on. 09:15 Notified Nurse Practitioner and/or Physician Garbage Collection Supervisor of a critical lab result(s), kc6 troponin 72.9. 10:00 Gasper Jiménez MD is Hospitalizing Provider. snw 12:00 Report received from SAQIB Velasquez. mb9 12:39 No provider procedures requiring assistance completed. mb9 12:41 Patient admitted, IV remains in place. mb9 Administered Medications: 08:40 Drug: Aspirin PO Chewable Tablet 324 mg Route: PO; ll1 11:57 Follow up: Response: No adverse reaction ll1 09:43 Drug: Magnesium Sulfate IVPB 1 grams Route: IVPB; Infused Over: 1 hrs; Site: left ll1 antecubital; 11:57 Follow up: Response: No adverse reaction; IV Status: Completed infusion; IV Intake: [id number] 09:43 Drug: Furosemide IVP 20 mg Route: IVP; Site: left antecubital; ll1 11:57 Follow up: Response: No adverse reaction ll1 14:22 Drug: Metoprolol PO 25 mg Route: PO; kc6 Medication: 09:07 VIS not applicable for this client. ll1 Intake: 11:57 IV: 50ml; Total: 50ml. ll1 Outcome: 10:04 Decision to Hospitalize by Provider. snw 14:44 Admitted to Tele via wheelchair, room 204, with chart, Report called to SAQIB Galindo mb9 14:44 Condition: stable 15:03 Patient left the ED. mb9 Signatures: Dispatcher [employer] EDMS Uma Christianson, LASTEX THREAD WINDER-C LASTEX THREAD WINDER-Csnw Cj Henriquez ds4 Savanah Yap RN RN jl7 Eva Patel RN RN ll1 Viridiana Velez RN RN kc6 Kaitlyn Vasquez RN RN mb9
[2023-06-06] MEDS ORDERED: ACETAMINOPHEN 325 MG TABLET PO PRN (11:29)
[2023-06-06] MEDS ORDERED: ONDANSETRON 4 MG/2 ML VIAL IV PRN (11:35)
--- NOTE | 2023-06-06 11:43 | P.HP ---
Certification for Inpatient Patient admitted to: Observation With expected LOS: <2 Midnights Patient will require the following post-hospital care: None Practitioner: I am a practitioner with admitting privileges, knowledge of patient current condition, hospital course, and medical plan of care. Services: Services provided to patient in accordance with Admission requirements found in Title 42 Section 412.3 of the Code of Federal Regulations Patient History Date of Service: 06/06/23 Reason for admission: AICD malfunction. History of Present Illness: Patient is a 77-year-old female with a past medical history significant for atrial fibrillation, hypertension, fibromyalgia, DM 2, GERD who presents with complaint of AICD malfunction which occurred this morning. Patient reported that she has been having palpitations, shortness of breath and cough for quite some time now. Patient is a poor historian and unable to provide accurate history. Patient reported associated signs and symptoms of fatigue, headache, bilateral lower extremity edema and weakness. Patient denies any other signs and symptoms. Symptoms are aggravated or relieved by nothing. Patient decided to present to the hospital for medical evaluation. Of note, patient reported that she had a fall on March 29, 2023 in which she hit her head. Patient did not follow-up any doctor or go to the ER. Patient also reports mild epigastric pain and reported that she started experiencing pain after she ran out of GERD medication. Allergies No Known Allergies Allergy (Verified 09/19/19 00:35) Home Medications: Duloxetine [Cymbalta *] 60 mg PO BID 01/20/18 Omeprazole 40 mg PO DAILY 01/20/18 Carvedilol [Coreg] 25 mg PO BID 09/15/19 Latanoprost [Xalatan] 1 drop EACH EYE BEDTIME 09/15/19 Butalb/Acetaminophen/Caffeine [Mnqjla-Kpbhsyzn-Ypos 50-325-40] 1 each PO BIDP PRN 09/17/19 Tramadol HCl [Ultram] 50 mg PO BIDP PRN 09/17/19 Metformin ER [Glucophage ER*] 500 mg PO DAILY 01/21/23 Sacubitril/Valsartan [Entresto 97 mg-103 mg Tablet] 1 tab PO BID 01/21/23 Furosemide [Lasix] 20 mg PO DAILY PRN 30 Days #30 tab 01/25/23 Carvedilol [Coreg] 1 tab PO BID 06/06/23 Spironolactone 1 tab PO DAILY 06/06/23 Tocilizumab [Actemra Actpen] 1 IM SEECOM 06/06/23 - Past Medical/Surgical History Diabetic: Yes -: fibromyalgia -: CHF -: HTN -: 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 rebuilt surg -: fibroid sx -: hysterectomy -: Pacemaker - Family History Sister -: Heart disease, Hypertension Notes: additional sister with arthritis Father -: Cancer Notes: lung Mother -: Cancer Notes: colon - Social History Smoking Status: Never smoker Alcohol use: Yes CD- Drugs: No Caffeine use: Yes Place of Residence: Home Review of Systems General: Weakness, Other (fatigue) Eyes: Unremarkable ENT: Unremarkable Respiratory: Cough, Shortness of Breath Cardiovascular: Palpitations Gastrointestinal: Abdominal Pain Genitourinary: Unremarkable Musculoskeletal: Other (BLE edema ) Neurological: Weakness, Other (PRESLEY) Lymphatics: Unremarkable Physical Examination - Physical Exam General: Alert, In no apparent distress, Oriented x3, Cooperative HEENT: Atraumatic, PERRLA, Mucous membr. moist/pink, EOMI, Sclerae nonicteric Neck: Supple, 2+ carotid pulse no bruit, No LAD, Without JVD or thyroid abnormality Respiratory: Clear to auscultation bilaterally, Normal air movement Cardiovascular: Normal S1 S2, Irregular heart rate/rhythm Capillary refill: <2 Seconds Gastrointestinal: Normal bowel sounds, No tenderness Musculoskeletal: No clubbing, No swelling, No tenderness Integumentary: No rashes, No significant lesion Neurological: Normal gait, Normal speech, Normal strength at 5/5 x4 extr, Normal tone, Normal affect Lymphatics: No axilla or inguinal lymphadenopathy - Studies Laboratory Data (last 24 hrs) 06/06/23 06/06/23 06/06/23 08:19 08:19 08:19 WBC 8.80 Hgb 13.3 Hct 40.3 Plt Count 268 PT 11.9 INR 1.08 Sodium 141 Potassium 3.7 BUN 19 H Creatinine 1.06 H Glucose 155 H Magnesium 1.5 L Total Bilirubin 0.5 AST 13 L ALT 19 Alkaline Phosphatase 70 Assessment and Plan - Plan --AICD malfunction. AICD interrogated in the ER. Awaiting report. Echocardiogram pending to assess cardiac structures and function. Cardiology consulted. Telemetry to monitor for any malignant arrhythmia. Will await further recommendation from line pilot. --Acute on chronic diastolic CHF exacerbation. BNP elevated--7584. Continue diuresis with Lasix. Daily weight. Further management per cardiology --GERD. Patient placed on Protonix. --Chronic atrial fibrillation. Continue Eliquis. --DM2. BS monitoring with sliding scale insulin. --Hypertension. Poorly controlled. Continue home medications and hydralazine as needed. --Hypomagnesemia. Replete as needed. --Class III obesity. Likely secondary to excess calories intake. Patient c ounseled on weight reduction, diet and exercise therapy. --Fibromyalgia. Continue current pain medication regimen. --DVT prophylaxis with Eliquis. Discharge Plan: Home Plan to discharge in: 48 Hours - Advance Directives Does patient have a Living Will: No Does patient have a Durable POA for Healthcare: No - Code Status/Comfort Care Code Status Assessed: Yes Physician Review: Patient Assessed, Agree with Above Assessment and Plan Critical Care: No
[2023-06-06] MEDS ORDERED: ENOXAPARIN 40 MG/0.4 ML SQ SCH (12:00)
[2023-06-06] MEDS: PANTOPRAZOLE 40MG TABLET PO SCH (12:00)
[2023-06-06 12:26] LABS: Magnesium 1.9 mg/dL (1.6-2.4); Phosphorus 2.9 mg/dL (2.5-4.9); Thyroid Stimulating Hormone 2.81 uIU/mL (0.358-3.740)
[2023-06-06] MEDS ORDERED: GLUCAGON 1 MG/VIAL IM PRN (12:33)
[2023-06-06] MEDS ORDERED: D10W 250 ML BAG IV PRN (12:33)
[2023-06-06] MEDS ORDERED: HYDRALAZINE HCL 20 MG/ML VIAL IV PRN (12:34)
[2023-06-06] MEDS ORDERED: HYDRALAZINE HCL 20 MG/ML VIAL ONE (13:35)
[2023-06-06] MEDS ORDERED: PANTOPRAZOLE 40MG TABLET PO ONE (13:35)
[2023-06-06] MEDS ORDERED: METOPROLOL TAR 25 MG TAB ONE (14:31)
[2023-06-06] MEDS ORDERED: ACETAMIN/CAFFEINE/BUTALB TAB PO PRN (14:40)
[2023-06-06 15:14] VITALS: BMI 38.7
--- NOTE | 2023-06-06 16:22 | CON ---
Date of Consultation: 06/06/2023 Reason For Consultation: ICD shock. History Of Present Illness: A 77-year-old, history of atrial fibrillation, hypertension, diabetes, c ongestive heart failure, acid reflux. Has ICD in place and she claimed that she became short of deacon th and started to feel palpitations. She felt palpitations all weekend and now today she felt dizzy, lightheaded, and the device shocked her, and then feels well right now. Denies having any chest vera n. Past Medical History: As outlined above in the HPI. Medications: Refer to reconciliation sheet for detailed list. Allergies: NO KNOWN DRUG ALLERGIES. Family History: No premature coronary artery disease, but there is a history of colon cancer on moth er's side. Social History: She does not smoke or drink. Does not use any drugs. Review of Systems: All systems reviewed and they were negative except what mentioned in HPI. Physical Examination: Vital Signs: Reviewed. Head and Neck: Pupils are equal, reactive to light. Intact eye movements. No JVD. No cervical lym phadenopathy. Neck is supple. Thyroid is not enlarged. Lungs: Clear to auscultation bilaterally. No rhonchi, wheezing, or crackles. No accessory muscle u se. Heart: Irregular. No extra sounds. Abdomen: Soft, nontender. Bowel sounds positive. No organomegaly. No masses or hernia. No rigidi ty or rebound. Extremities: No clubbing or cyanosis. Intact pulses. Skin: No rash. Neurologic: Alert, awake, oriented x3. No acute focal deficits appreciated. Lymph Nodes: No cervical or axillary lymphadenopathy. Investigations: BUN 19, creatinine 1.06. Troponin 72 and then 368, and her hemoglobin is 13.3. Assessment And Recommendations: 1.ICD shock. We will interrogate the device to obtain the underlying rhythm that she received shock for and to confirm that the shock indeed happened and plan accordingly. The patient has been on ami odarone at home and Eliquis. We will continue that. 2.Atrial fibrillation. Rate is controlled on amiodarone and Eliquis and carvedilol. 3.Hypertension. Blood pressure is controlled. Continue current management. 4.Congestive heart failure. It is chronic. Obtain an echo tomorrow. 5.Elevated troponin, likely due to demand ischemia; however, I recommend evaluation with Lexiscan st ress test tomorrow morning. SR/MODL Voice ID: [id number] Report ID: [id number]
[2023-06-06] MEDS: SPIRONOLACTONE 25 MG TABLET PO SCH (16:24)
[2023-06-06] MEDS: AMIODARONE HCL 200 MG TAB PO SCH ×2 (16:25→20:58)
[2023-06-06] MEDS: carvediloL 12.5 MG TAB PO SCH ×2 (16:25→20:58)
[2023-06-06] MEDS: DULOXETINE 30 MG CAP PO SCH ×2 (16:27→20:59)
[2023-06-06] MEDS: INSULIN -REGULAR HUMAN 50 UNIT/0.5 ML ML SQ SCH ×2 (16:27→21:00)
[2023-06-06] MEDS ORDERED: FUROSEMIDE 20 MG/ 2ML VIAL IV SCH (17:00)
[2023-06-06] MEDS ORDERED: ACETAMIN/CAFFEINE/BUTALB TAB PO ONE (17:46)
[2023-06-06] MEDS ORDERED: carvediloL 25 MG TAB PO SCH (21:00)
[2023-06-06] MEDS ORDERED: AMIODARONE HCL 200 MG TAB PO SCH (21:00)
[2023-06-06] MEDS: HOME MED 1 EA UNK (Sacubitril/Valsartan [Entresto 97 Mg-103 Mg Tablet] Tablet) PO SCH (21:00)
[2023-06-06] MEDS: LATANOPROST 0.005% OPTH SCH (21:00)
[2023-06-06] MEDS: APIXABAN 5 MG TABLET PO SCH (21:15)
[2023-06-07 05:07] LABS: Absolute Lymphocytes (CBC) 1.8 K/uL (0.7-4.9); Hematocrit 38.7 % (36.0-45.0); Lymphocytes % 19.1 % (15.3-44.8); MCV 91.9 fL (80-100); Platelets 264 thou/uL (152-406); RBC Red Blood Cell Count 4.21 M/uL (3.86-4.86)
[2023-06-07 05:19] LABS: Potassium 3.9 mEq/L (3.5-5.1)
[2023-06-07 05:54] LABS: Specific Gravity 1.022 (1.005-1.030); Urine Bacteria None Seen /HPF (<20); Urine Bilirubin NEGATIVE (Negative); Urine Blood Negative (Negative); Urine Clarity Clear (Clear); Urine Color Yellow (Yellow); Urine Glucose NEGATIVE (Negative); Urine Mucus Slight /HPF (None Seen); Urine Protein NEGATIVE (Negative); Urine RBC <5 /HPF (None Seen); Urine Urobilinogen Normal (Normal); Urine pH 5.5 (5.0-7.0)
[2023-06-07] MEDS: INSULIN -REGULAR HUMAN 50 UNIT/0.5 ML ML SQ SCH ×4 (07:30→21:00)
[2023-06-07] MEDS ORDERED: REGADENOSON 0.4 MG/5 ML SYR IV ONE (08:00)
[2023-06-07] MEDS: AMIODARONE HCL 200 MG TAB PO SCH ×2 (08:26→21:02)
[2023-06-07] MEDS: PANTOPRAZOLE 40MG TABLET PO SCH (08:26)
[2023-06-07] MEDS: DULOXETINE 30 MG CAP PO SCH ×2 (08:26→21:02)
[2023-06-07] MEDS: SPIRONOLACTONE 25 MG TABLET PO SCH (08:26)
[2023-06-07] MEDS: APIXABAN 5 MG TABLET PO SCH (08:26)
[2023-06-07] MEDS: ASPIRIN 81 MG CHEWABLE TABLET PO SCH (08:26)
[2023-06-07] MEDS: carvediloL 12.5 MG TAB PO SCH ×2 (08:27→21:02)
[2023-06-07] MEDS: HOME MED 1 EA UNK (Sacubitril/Valsartan [Entresto 97 Mg-103 Mg Tablet] Tablet) PO SCH ×2 (08:28→21:00)
[2023-06-07] MEDS ORDERED: POTASSIUM CL SA 10 MEQ TAB PO ONE (09:46)
--- NOTE | 2023-06-07 10:44 | RAD REPORT ---
EXAM DESCRIPTION: NM - Rest Stress Cardiac Imaging - 06/07/2023 10:33 am CLINICAL HISTORY: ELEVATED TROPONIN Chest pain. COMPARISON: No comparisons TECHNIQUE: The patient was administered approximately 10mCi of Tc 99m Sestamibi prior to resting SPE CT imaging of the heart. The patient was then administered approximately 30 mCi of Tc 99m Sestamibi f ollowing exercise or pharmacologic stress. Multiplanar SPECT images were reviewed. FINDINGS: There is a moderate sized area of moderate stress-induced ischemia involving the lateral w all. No fixed defect is seen to suggest hibernating myocardium or scarred myocardium. The end diastolic volume is 130 ml, the end systolic volume is 79 ml, and the ejection fraction is 40 %. IMPRESSION: Moderate sized area of moderate stress-induced ischemia involving the lateral wall.
[2023-06-07] MEDS: HYDROCODONE/APAP 5/325 MG TAB PO PRN (11:25)
--- NOTE | 2023-06-07 16:46 | EKG ---
Test Date: 2023-06-06 Test Time: 14:08:57 [employer]adoop Admin: AARON MEASUREMENT RESULTS: Intervals: Rate: 96 TN: 168 QRSD: 134 QT: 418 QTc: 528 [place]: P: TN: 168 QRS: 104 T: -53 INTERPRETIVE STATEMENTS: Sinus with frequent PVCs. Nonspecific intraventricular block Possible Right ventricular hypertrophy Marked T wave abnormality, consider anterolateral ischemia Abnormal ECG Compared to ECG 06/06/2023 08:14:26 T-wave abnormality now present Atrial premature complex(es) no longer present Short TN interval no longer present ST (T wave) deviation no longer present Electronically Signed On 06-07-23 16:43:30 CDT by Mark Perez
--- NOTE | 2023-06-07 16:48 | EKG ---
Test Date: 2023-06-06 Test Time: 08:14:26 Hspt Tutor: SARAI MEASUREMENT RESULTS: Intervals: Rate: 72 FL: 106 QRSD: 84 QT: 434 QTc: 475 [place]: P: 91 FL: 106 QRS: 6 T: 50 INTERPRETIVE STATEMENTS: Sinus rhythm with short FL with premature atrial complexes Nonspecific ST abnormality Abnormal ECG Compared to ECG 01/21/2023 13:28:03 Atrial premature complex(es) now present Short FL interval now present ST (T wave) deviation now present Atrial fibrillation no longer present Ventricular premature complex(es) no longer present Prolonged QT interval no longer present Electronically Signed On 06-07-23 16:44:04 CDT by Mark Perez
--- NOTE | 2023-06-07 17:37 | P.PN ---
Subjective Date of Service: 06/07/23 Chief Complaint: AICD malfunction. Patient has no new complaint. She denies any chest pain or shortness of breath. Physical Examination - Vital Signs Temperature: 97.3 F Blood Pressure: 152/65 Pulse: 65 Respirations: 16 Pulse Ox (%): 96 Assessment And Plan - Plan Physical Exam General: Alert, In no apparent distress, obese. Neck: Supple, no elevated JVD. Respiratory: Clear to auscultation bilaterally, Normal air movement Cardiovascular: Normal S1 S2, Irregular heart rate/rhythm Gastrointestinal: Normal bowel sounds, No tenderness, nondistended. Musculoskeletal: No clubbing, No swelling, No tenderness Integumentary: No rashes, No significant lesion Neurological: Normal speech, Normal strength at 5/5 x4 extr, Normal tone, Normal affect Diagnosis AICD Discharge/acute on chronic diastolic heart failure AICD interrogated Continue telemetry Continue diuresis with Lasix Seen by cardiology and stress test recommended. Stress test shows moderate sized reversible ischemia. Cardiology to follow. GERD Patient placed on Protonix. Chronic atrial fibrillation. Continue Eliquis and Coreg. DM2. BS monitoring with sliding scale insulin. Hypertension. Continue Coreg. Hydralazine as needed. Class III obesity. Likely secondary to excess calories intake. Patient counseled on weight reduction, diet and exercise therapy. Fibromyalgia. Continue current pain medication regimen. DVT prophylaxis: Eliquis.
--- NOTE | 2023-06-07 18:24 | PN ---
Date of Progress Note: 06/07/2023 Subjective: Seen by bedside. Doing well. No further shocks. Review of Systems: No chest pain, shortness of breath, orthopnea, cough. No nausea, vomiting, diarrhea. All other syst ems reviewed and they were negative. Physical Examination: Vital Signs: Reviewed. Head and Neck: Pupils are equal, reactive to light. Intact eye movements. No JVD. No cervical lym phadenopathy. Neck is supple. Thyroid is not enlarged. Lungs: Clear to auscultation bilaterally. No rhonchi, wheezing, or crackles. No accessory muscle u se. Heart: Regular rate and rhythm. No extra sounds. Abdomen: Soft, nontender. Bowel sounds positive. No organomegaly. No masses or hernia. No rigidi ty or rebound. Extremities: No edema, clubbing, or cyanosis. Intact pulses. Skin: No rash. Neurologic: Alert, awake, oriented x3. No acute focal deficits appreciated. Lymph Nodes: No cervical or axillary lymphadenopathy. Investigations: The ejection fraction on echo was normal. Stress test showed a moderate size latera l ischemia and troponin peaked at 273. Assessment And Recommendations: 1.ICD shock with positive troponin and abnormal stress test. Recommend coronary angiogram and plan for tomorrow. Keep n.p.o. past midnight. I believe that the ICD shock was due to atrial fibrillatio n. Still waiting on the official interrogation of the device as up until this point, we do not have a full report. 2.Elevated troponin with abnormal stress test. Plan for coronary angiogram tomorrow. 3.Dyslipidemia. LDL is 150. Start Lipitor 40 mg at bedtime. 4.Atrial fibrillation. She is in sinus now. I recommend to increase Coreg to 25 mg twice a day and continue Eliquis and continue amiodarone. May be in the future, amiodarone can be tapered down afte r the beta-rocio is titrated up. SR/MODL Voice ID: [id number] Report ID: [id number]
[2023-06-07] MEDS: LATANOPROST 0.005% OPTH SCH (21:00)
[2023-06-07] MEDS: ATORVASTATIN 40 MG TAB PO SCH (21:02)
[2023-06-08 05:08] LABS: Potassium 4.1 mEq/L (3.5-5.1)
--- NOTE | 2023-06-08 06:57 | ECHO ---
HEIGHT: 5 ft 0 in WEIGHT: 201 lb 12.8 oz DATE OF STUDY: 06/07/[address]: Mark Perez 2-DIMENSIONAL: YES M.MODE: YES DOPPLER: YES COLOR FLOW: YES TDS: PORTABLE: YES DEFINITY: BUBBLE STUDY: DIAGNOSIS: CONGESTIVE HEART FAILURE CARDIAC HISTORY: CATHERIZATION: SURGERY: PROSTHETIC VALVE: PACEMAKER: YES MEASUREMENTS (cm) DIASTOLIC (NORMALS) SYSTOLIC (NORMALS) IVSd 1.1 (0.6-1.2) LA Diam 5.0 (1.9-4.0) LVEF 60% LVIDd 5.4 (3.5-5.7) LVIDs 3.7 (2.0-3.5) %FS 32% LVPWd 1.2 (0.6-1.2) Ao Diam 2.6 (2.0-3.7) 2 DIMENSIONAL ASSESSMENT: RIGHT ATRIUM: NORMAL LEFT ATRIUM: ENLARGED RIGHT VENTRICLE: NORMAL LEFT VENTRICLE: NORMAL TRICUSPID VALVE: MILD TRICUSPID REGURGITATION MITRAL VALVE: MILD MITRAL REGURGITATION PULMONIC VALVE: NORMAL AORTIC VALVE: NORMAL PERICARDIAL EFFUSION: NONE AORTIC ROOT: NORMAL LEFT VENTRICULAR WALL MOTION: NORMAL DOPPLER/COLOR FLOW: SEE BELOW COMMENTS: 1. NORMAL LEFT VENTRICULAR EJECTION FRACTION 55-60% WITH NORMAL WALL MOTION 2. LEFT ATRIAL ENLARGEMENT 3. MILD TRICUSPID REGURGITATION 4. MILD MITRAL REGURGITATION 5. PACEMAKER WIRE IN RIGHT VENTRICLE TECHNOLOGIST: YARELIS KEITA
[2023-06-08] MEDS: PANTOPRAZOLE 40MG TABLET PO SCH (07:30)
[2023-06-08] MEDS: INSULIN -REGULAR HUMAN 50 UNIT/0.5 ML ML SQ SCH ×4 (07:30→21:00)
[2023-06-08] MEDS: SPIRONOLACTONE 25 MG TABLET PO SCH (08:43)
[2023-06-08] MEDS: HOME MED 1 EA UNK (Sacubitril/Valsartan [Entresto 97 Mg-103 Mg Tablet] Tablet) PO SCH ×2 (08:44→21:00)
[2023-06-08] MEDS: DULOXETINE 30 MG CAP PO SCH ×2 (08:44→21:24)
[2023-06-08] MEDS: ASPIRIN 81 MG CHEWABLE TABLET PO SCH (08:45)
[2023-06-08] MEDS: AMIODARONE HCL 200 MG TAB PO SCH ×2 (08:46→21:23)
[2023-06-08] MEDS: carvediloL 12.5 MG TAB PO SCH ×2 (08:47→21:24)
--- NOTE | 2023-06-08 09:03 | TREADPHA ---
DX: ELEVATED TROPONIN Date of Study: 06/07/2023 Ht: 5' 0 " Wt: 201 lb 12.8 oz Consulting Physician: ROMARIO MEDICATIONS: TYLENOL, FIORICET, NORCO, CORDARONE, ELIQUIS, ASPIRIN, COREG, DEXTROSE, CYMBALTA, GLUCAGEN, APRESOLINE, NOVOLIN-R, ZOFRAN, PROTONIX, ALDACTONE HISTORY: 77 YEAR OLD FEMALE WITH COMPLAINTS OF WEAKNESS. HISTORY OF CONGESTIVE HEART FAILURE, FIBROMYALGIA, NON SMOKER, OCCASIOANLLY DRINKS. PHYSICIAL EXAMINATION: RESTING B.P.: 159/99 RESTING H.R.: 76 RESTING EKG: ATRIAL PACED WITH PREMATURE VENTRICULAR COMPLEXES PROTOCOL: PHARMACOLOGIC EXERCISE TIME: 3:30 B.P. AT [place]AK STRESS: 100/79 IMPRESSION: LEXISCAN INJECTED, FOLLOWED BY CARDIOLITE PER PROTOCOL. SEE NUCLEAR MEDICINE REPORT. NO SUPRAVENTRICULAR TACHYCARDIA, VENTRICULAR TACHYCARDIA. FREQUENT PREMATURE VENTRICULAR COMPLEXES, RUNS OF TRIGEMINY, COUPLETS, ATRIAL TACHYCARDIA EIGHT BEAT RUN. PATIENT REPORTS CHEST TIGHTNESS FOUR OUT OF TEN. NO ELECTROCARDIOGRAM CHANGES OF ISCHEMIA WITH LEXISCAN.
--- NOTE | 2023-06-08 15:54 | P.PN ---
Subjective Date of Service: 06/08/23 Chief Complaint: AICD malfunction. Patient has no new complaint. She denies shortness of breath or chest pain. Physical Examination - Vital Signs Temperature: 96.7 F Blood Pressure: 135/63 Pulse: 60 Respirations: 16 Pulse Ox (%): 96 Assessment And Plan - Plan Physical Exam General: Alert, In no apparent distress, obese. Neck: Supple, no elevated JVD. Respiratory: Clear to auscultation bilaterally, Normal air movement Cardiovascular: Normal S1 S2, Irregular heart rate/rhythm Gastrointestinal: Normal bowel sounds, No tenderness, nondistended. Musculoskeletal: No clubbing, No swelling, No tenderness Integumentary: No rashes, No significant lesion Neurological: Normal speech, Normal strength at 5/5 x4 extr, Normal tone, Normal affect Diagnosis AICD Discharge/acute on chronic diastolic heart failure AICD interrogated. AICD fired yesterday morning. Patient had runs of VT and VF per interrogation report. Continue telemetry Continue diuresis with Lasix Cardiology Dr. Perez is followed. Stress test done shows moderate sized reversible ischemia. Dr. Perez recommended cardiac catheterization to be done tomorrow. GERD Patient placed on Protonix. Chronic atrial fibrillation. Continue Coreg. Eliquis is on hold for cardiac catheterization. DM2. BS monitoring with sliding scale insulin. Hypertension. Continue Coreg. Hydralazine as needed. Fibromyalgia. Continue current pain medication regimen. DVT prophylaxis: SCD.
[2023-06-08] MEDS: LATANOPROST 0.005% OPTH SCH (21:00)
[2023-06-08] MEDS: ATORVASTATIN 40 MG TAB PO SCH (21:23)
--- NOTE | 2023-06-09 00:01 | PN ---
Date of Progress Note: 06/08/2023 Subjective: Seen by bedside. No chest pain. No nausea, vomiting, diarrhea. No further shocks of I CD. Review of Systems: No chest pain, shortness of breath, orthopnea, cough. No nausea, vomiting, diarrhea. All other syst ems reviewed are negative. Physical Examination: Vital signs: Reviewed. Head and Neck: Pupils are equal, reactive to light. Intact eye movements. No JVD. No cervical dony nopathy. Neck: Supple. Thyroid is not enlarged. Lungs: Clear to auscultation bilaterally. No rhonchi, wheezing, or crackles. No accessory muscle u se. Heart: Regular rate and rhythm. No extra sounds. Abdomen: Soft, nontender. Bowel sounds positive. No organomegaly. No masses or hernia. No rigidi ty or rebound. Extremities: No edema, clubbing, cyanosis. Intact pulses. Skin: No rashes. Neurologic: Alert, awake, oriented x3. No acute focal deficits appreciated. Investigations: BUN 28, creatinine 1.37. Assessment/recommendations: 1.Non-ST elevation myocardial infarction with abnormal stress test. Plan for coronary angiogram ritchie orrow. Could not get to her today to feeding. Keep n.p.o. past midnight. 2.ICD shock, probably due to ventricular tachycardia. Increase the metoprolol and continue amiodaro ne and we will plan for coronary angiogram tomorrow to rule out ischemia. 3.Dyslipidemia. Continue statin. SR/MODL Voice ID: [id number] Report ID: [id number]
[2023-06-09 04:15] LABS: Absolute Lymphocytes (CBC) 1.6 K/uL (0.7-4.9); Hematocrit 38.6 % (36.0-45.0); Lymphocytes % 19.2 % (15.3-44.8); MCV 91.4 fL (80-100); MPV 8.3 fL (7.6-11.3); Platelets 266 thou/uL (152-406); RBC Red Blood Cell Count 4.22 M/uL (3.86-4.86)
[2023-06-09] MEDS: HYDROCODONE/APAP 5/325 MG TAB PO PRN (04:15)
[2023-06-09] MEDS ORDERED: MAGNESIUM SULFATE 1 gm IVPB 1 GM/100 ML BAG IV ONE (06:00)
[2023-06-09] MEDS: PANTOPRAZOLE 40MG TABLET PO SCH (07:30)
[2023-06-09] MEDS: INSULIN -REGULAR HUMAN 50 UNIT/0.5 ML ML SQ SCH ×4 (07:30→21:40)
[2023-06-09] MEDS: ASPIRIN 81 MG CHEWABLE TABLET PO SCH (09:00)
[2023-06-09] MEDS: carvediloL 12.5 MG TAB PO SCH ×2 (09:00→21:41)
[2023-06-09] MEDS: AMIODARONE HCL 200 MG TAB PO SCH ×2 (09:00→21:00)
[2023-06-09] MEDS: HOME MED 1 EA UNK (Sacubitril/Valsartan [Entresto 97 Mg-103 Mg Tablet] Tablet) PO SCH ×2 (09:00→21:00)
[2023-06-09] MEDS: SPIRONOLACTONE 25 MG TABLET PO SCH (09:00)
[2023-06-09] MEDS: DULOXETINE 30 MG CAP PO SCH ×2 (09:00→21:40)
[2023-06-09] MEDS ORDERED: NA CHLORIDE 0.9% 500 ML ONE (10:38)
[2023-06-09] MEDS ORDERED: HEPA 1000U/500MLS 2,000 UNIT/1,000 ML BAG IV ONE (11:33)
[2023-06-09] MEDS ORDERED: HEPARIN 5000 UNIT/ML 1 ML VIAL ONE (11:33)
[2023-06-09] MEDS ORDERED: LIDOCAINE 1% 20 ML MDV ONE (11:33)
[2023-06-09] MEDS ORDERED: FENTANYL CITR 100 MCG/2 ML ONE (11:41)
[2023-06-09] MEDS ORDERED: MIDAZOLAM HCL 2 MG/2 ML INJ ONE (11:41)
[2023-06-09] MEDS ORDERED: ASPIRIN 325 MG TAB ONE (11:42)
[2023-06-09] MEDS ORDERED: TICAGRELOR 90 MG TABLET PO ONE (11:42)
[2023-06-09] MEDS ORDERED: CLOPIDOGREL 75 MG TABLET ONE (11:42)
[2023-06-09] MEDS ORDERED: VERAPAMIL HCL 10 MG/4 ML VIAL IV ONE (11:42)
[2023-06-09] MEDS ORDERED: ATROPINE SULF 1 MG/10 ML SYR IV ONE (11:43)
[2023-06-09] MEDS ORDERED: HEPARIN 10,000 UNIT/10 ML VIAL IV ONE (12:55)
--- NOTE | 2023-06-09 13:58 | PN ---
Date of Progress Note: 06/09/2023 Subjective: Patient was seen by bedside, doing clinically well. No chest pain, shortness of breath, orthopnea, or cough. No further shocks by device. Review of Systems: No chest pain, shortness of breath, orthopnea, or cough. No nausea, vomiting, or diarrhea. All othe r systems were reviewed and they were negative. Objective: Vital Signs: Reviewed. Head and Neck: Pupils are equal, reactive to light. Intact eye movements. No JVD. No cervical lym phadenopathy. Neck is supple. Thyroid is not enlarged. Lungs: Clear to auscultation bilaterally. No rhonchi, wheezing, or crackles. No accessory muscle u se. Heart: Regular rate and rhythm. No extra sounds. Abdomen: Soft, nontender. Bowel sounds positive. No organomegaly. No masses or hernia. No rigidi ty or rebound. Extremities: No edema, clubbing, or cyanosis. Intact pulses. Skin: No rashes. No nodule. Neurologic: Alert, awake, oriented x3. No acute focal deficits appreciated. Investigations: Labs were reviewed. Assessment And Recommendations: 1.Pds-BS-fpytxfany myocardial infarction. Positive stress test, status post coronary angiogram. Ann gallegos has severe multivessel coronary artery disease. We will transfer for CABG to [facility] in [place]. 2.Atrial fibrillation. She is in sinus. Continue current management. Hold Eliquis as the patient is going to need CABG and also we will ask the surgeon to do appendage closure and Maze. 3.Congestive heart failure. This is stable. Her EF has normalized. Continue current management. SR/MODL Voice ID: [id number] Report ID: [id number]
--- NOTE | 2023-06-09 14:19 | OP ---
Date of Procedure: 06/09/2023 Surgeon: ANITA DOSS Procedure Performed: Selective coronary angiogram. Indication: Hol-KL-lamkwdnkb myocardial infarction. Access: Right radial artery 6-Georgian closed with TR band. Complications: None. Bleeding: Less than 20 mL. Anesthesia: Total sedation time was 30 minutes. Description Of Procedure: After risks, benefits, and alternatives were explained, patient agreed to procedure and signed informed consent. Patient was brought to the cardiac catheterization laboratory , prepped and draped in usual sterile fashion. Then I accessed the right radial artery using pediatr ic micropuncture kit, placed 6-Georgian Slender sheath and took 5-Georgian [place] 4 catheter into the aort ic root, engaged left main and then the right coronary artery and took standard views and then cathet er was removed. Sheath was removed, and placed TR band with good hemostasis. Findings: 1.Left main; large and normal. 2.LAD; large vessel with proximal 70% to 80% before the diagonal branch takeoff and then it becomes 80% stenosed at the takeoff of diagonal and extends right after diagonal, and the diagonal 1 branch h as also proximal 80% stenosis and it is a large vessel. Rest of LAD appears to be normal. 3.Left circumflex; it is a large vessel with proximal 90% and then it becomes has mid 80% stenosis. 4.RCA; large and dominant, proximal 40%, mid 50%, two different locations, and the PDA ostial 80%. Conclusion: Severe multivessel coronary artery disease. Plan: Transfer for CABG. SR/MODL Voice ID: [id number] Report ID: [id number]
--- NOTE | 2023-06-09 14:29 | P.PN ---
Subjective Date of Service: 06/09/23 Chief Complaint: AICD malfunction. Patient has no new complaint. She denies shortness of breath or chest pain. Physical Examination - Vital Signs Temperature: 96.5 F Blood Pressure: 115/58 Pulse: 60 Respirations: 17 Pulse Ox (%): 97 Assessment And Plan - Plan Physical Exam General: Alert, In no apparent distress, obese. Neck: Supple, no elevated JVD. Respiratory: Clear to auscultation bilaterally, Normal air movement Cardiovascular: Normal S1 S2, Irregular heart rate/rhythm Gastrointestinal: Normal bowel sounds, No tenderness, nondistended. Musculoskeletal: No clubbing, No swelling, No tenderness Integumentary: No rashes, No significant lesion Neurological: Normal speech, Normal strength at 5/5 x4 extr, Normal tone, Normal affect Diagnosis AICD Discharge/acute on chronic diastolic heart failure AICD interrogated. AICD fired yesterday morning. Patient had runs of VT and VF per interrogation report. Continue telemetry Continue diuresis with Lasix Cardiology Dr. Perez is followed. Stress test done shows moderate sized reversible ischemia. Status post cardiac catheterization by Dr. Perez. Patient noted to have severe multiple coronary disease. Dr. Perez recommended transfer for CABG. GERD Patient placed on Protonix. Chronic atrial fibrillation. Continue Coreg. Eliquis is on hold for CABG. DM2. BS monitoring with sliding scale insulin. Hypertension. Continue Coreg. Hydralazine as needed. Fibromyalgia. Continue current pain medication regimen. DVT prophylaxis: SCD.
[2023-06-09] MEDS: LATANOPROST 0.005% OPTH SCH (21:00)
[2023-06-09] MEDS: ATORVASTATIN 40 MG TAB PO SCH ×2 (21:40→21:41)
[2023-06-09 22:52] VITALS: O2SAT 95
[2023-06-10 03:16] VITALS: BP 125/52; TEMP 96.9
--- NOTE | 2023-06-10 19:42 | P.DS ---
Admission Date: 06/08/23 Discharge Date: 06/10/23 Disposition: TRANSFER TO [facility] Reason for Admission: AICD malfunction. Brief History of Present Illness: Patient is a 77-year-old female with a past medical history significant for atrial fibrillation, hypertension, fibromyalgia, DM 2, GERD who presented with complaint of AICD malfunction which occurred this morning. Patient reported that she has been having palpitations, shortness of breath and cough for quite some time now. Patient is a poor historian and unable to provide accurate history. Patient reported associated signs and symptoms of fatigue, headache, bilateral lower extremity edema and weakness. Her troponin was mildly elevated in the ED. Patient was hospitalized for further management. Hospital Course: Diagnosis AICD discharge Acute on chronic diastolic heart failure Coronary artery disease GERD Chronic atrial fibrillation Diabetes mellitus type Hypertension Fibromyalgia AICD Discharge/acute on chronic diastolic heart failure AICD interrogated. AICD fired. Patient had runs of VT and VF per interrogation report. Continued diuresis with Lasix Cardiology Dr. Perez saw patient. Stress test done showed moderate sized reversible ischemia. Status post cardiac catheterization by Dr. Perez. Patient noted to have severe multiple coronary disease. Dr. Perez recommended transfer for CABG. Patient accepted for transfer to [facility]. GERD Patient placed on Protonix. Chronic atrial fibrillation. Continued Coreg. Eliquis is on hold for CABG. DM2. BS monitoring with sliding scale insulin. Hypertension. Continued Coreg. Hydralazine as needed. Fibromyalgia. Continued home pain medication regimen. Vital Signs/Physical Exam: Temp Pulse Resp BP Pulse Ox 96.9 F 62 18 125/52 L 94 06/10/23 00:00 06/10/23 00:00 06/10/23 00:00 06/10/23 00:00 06/10/23 00:00 General: Alert, In no apparent distress, Oriented x3, Obese HEENT: Mucous membr. moist/pink Neck: JVD not distended Respiratory: Clear to auscultation bilaterally, Normal air movement Cardiovascular: Normal S1 S2, Irregular heart rate/rhythm Gastrointestinal: Soft and benign, Non-distended Musculoskeletal: No swelling Integumentary: No cyanosis Neurological: Normal strength at 5/5 x4 extr Laboratory Data at Discharge: WBC 8.20 thou/uL (4.3-10.9) 06/09/23 03:02 Hgb 12.8 g/dL (12.0-15.0) 06/09/23 03:02 Hct 38.6 % (36.0-45.0) 06/09/23 03:02 Plt Count 266 thou/uL (152-406) 06/09/23 03:02 PT 11.9 SECONDS (9.5-12.5) 06/06/23 08:19 INR 1.08 06/06/23 08:19 Sodium Cancelled 06/10/23 05:00 Potassium Cancelled 06/10/23 05:00 BUN Cancelled 06/10/23 05:00 Creatinine Cancelled 06/10/23 05:00 Glucose Cancelled 06/10/23 05:00 Phosphorus 2.9 mg/dL (2.5-4.9) 06/06/23 11:53 Magnesium Cancelled 06/10/23 05:00 Total Bilirubin 0.5 mg/dL (0.2-1.0) 06/06/23 08:19 AST 13 U/L (15-37) L 06/06/23 08:19 ALT 19 U/L (13-56) 06/06/23 08:19 Alkaline Phosphatase 70 U/L (45-117) 06/06/23 08:19 Triglycerides 159 mg/dL (<150) H 06/07/23 03:50 Cholesterol 231 mg/dL (<200) H 06/07/23 03:50 HDL Cholesterol 49 mg/dL (40-60) 06/07/23 03:50 Cholesterol/HDL Ratio 4.71 06/07/23 03:50 Home Medications: Duloxetine [Cymbalta *] 60 mg PO BID 01/20/18 Omeprazole 40 mg PO DAILY 01/20/18 Carvedilol [Coreg] 25 mg PO BID 09/15/19 Latanoprost [Xalatan] 1 drop EACH EYE BEDTIME 09/15/19 Butalb/Acetaminophen/Caffeine [Tilxmt-Cwxzsxvb-Eoef 50-325-40] 1 each PO BIDP PRN 09/17/19 Tramadol HCl [Ultram] 50 mg PO BIDP PRN 09/17/19 Metformin ER [Glucophage ER*] 500 mg PO DAILY 01/21/23 Sacubitril/Valsartan [Entresto 97 mg-103 mg Tablet] 1 tab PO BID 01/21/23 Furosemide [Lasix] 20 mg PO DAILY PRN 30 Days #30 tab 01/25/23 Carvedilol [Coreg] 1 tab PO BID 06/06/23 Spironolactone 1 tab PO DAILY 06/06/23 Tocilizumab [Actemra Actpen] 1 IM [facility] 06/06/23 Followup: Federica Kelly FNP [Primary Care Provider] - Time spent managing pt's care (in minutes): 33
== END 2023-06-09 23:30 | disposition short-term general hospital (02) | DRG 280 ==
LOC: ER 08:05 → ERHOLD 11:25 → 2ND 14:46 → OBSVTOIN 06-08 16:08
PROVIDERS: ADMIT Hospitalist; ATTEND Internal Medicine
PROC: 4A023N7 Measurement of Cardiac Sampling and Pressure, Left Heart, Percutaneous Approach (ICD-10-PCS; principal; 2023-06-09)
PROC: B2111ZZ Fluoroscopy of Multiple Coronary Arteries using Low Osmolar Contrast (ICD-10-PCS; 2023-06-09)
DX: T82.118A Breakdown (mechanical) of other cardiac electronic device, initial encounter (principal); I50.33 Acute on chronic diastolic (congestive) heart failure; I21.4 Non-ST elevation (NSTEMI) myocardial infarction; I48.20 Chronic atrial fibrillation, unspecified; I47.20 Ventricular tachycardia, unspecified; I11.0 Hypertensive heart disease with heart failure; E11.9 Type 2 diabetes mellitus without complications; M79.7 Fibromyalgia; K21.9 Gastro-esophageal reflux disease without esophagitis; E66.01 Morbid (severe) obesity due to excess calories; E83.42 Hypomagnesemia; I25.10 Atherosclerotic heart disease of native coronary artery without angina pectoris; T50.906A Underdosing of unspecified drugs, medicaments and biological substances, initial encounter; R77.8 Other specified abnormalities of plasma proteins; Z71.3 Dietary counseling and surveillance; Z90.49 Acquired absence of other specified parts of digestive tract; Z79.84 Long term (current) use of oral hypoglycemic drugs; Z68.38 Body mass index [BMI] 38.0-38.9, adult; Z90.710 Acquired absence of both cervix and uterus; Z96.651 Presence of right artificial knee joint; Z91.128 Patient's intentional underdosing of medication regimen for other reason; Z95.810 Presence of automatic (implantable) cardiac defibrillator; Z79.899 Other long term (current) drug therapy; Y84.8 Other medical procedures as the cause of abnormal reaction of the patient, or of later complication, without mention of misadventure at the time of the procedure
CPT/HCPCS: 36415; 71045; 76937; 78452; 80048; 80061; 80076; 81001; 82947; 83735; 83880; 84100; 84439; 84443; 84484; 85025; 85610; 93005; 93017; 93306; 93454; 96365; 96366; 96375; 99285; A9500; C1893; G0378; J0360; J0461; J1644; J1815; J1940; J2001; J2250; J2785; J3010; J3475; J7040; Q9966

== ENCOUNTER 2023-07-18 14:42 | Emergency (ER) | payer OTHER ==
--- OUTSIDE RECORDS SUMMARY | 2023-07-18 14:57 | XMS REPORT | Continuity of Care Document ---
:1945 Author Organization [facility] t Address [address] [facility] [address] [place] [id number] Care Team Providers Name Role Phone No, [facility] Primary Care Physician Unavailable Adrian Sorensen Attending Clinician Unavailable VIRA HYDE Attending Clinician Unavailable ALE SOLANO Attending Clinician Unavailable FORD VERA Attending Clinician Unavailable Kaia Nolan Attending Clinician Unavailable DANIEL MCKEON Attending Clinician Unavailable MICHAEL ANDERSON Attending Clinician Unavailable JUAN MALONEY Attending Clinician Unavailable COLLEEN BROWN Attending Clinician Unavailable PATSY MCCONNELL Attending Clinician Unavailable DEEPAK DELONG Attending Clinician Unavailable LAB90 Attending Clinician Unavailable UMA GOLDEN Attending Clinician Unavailable HEVER HUTTON Attending Clinician Unavailable CRYSTAL SOLIS Attending Clinician Unavailable NIMISHA CÁRDENAS Attending Clinician Unavailable POLLO ENGLISH Attending Clinician Unavailable POLLO ENGLISH Attending Clinician Unavailable Pollo English MD Attending Clinician MD GARRETT Attending Clinician Unavailable LAB47 Attending Clinician Unavailable Colleen Erickson Attending Clinician KRISTYN RECIO Attending Clinician Unavailable FACUNDO MURPHY Attending Clinician Unavailable SWAB, CK COVID SELF Attending Clinician Unavailable Baljeet VELÁSQUEZ, Deepak Attending Clinician SLOAN NAGY Attending Clinician Unavailable DMITRY DECKER Attending Clinician Unavailable DESIREE RAHMAN Attending Clinician Unavailable SAYRA RAHMAN Attending Clinician Unavailable Barrett VELÁSQUEZ, Vira Borrego Attending Clinician [phone] ELYSSA BEARD Attending Clinician Unavailable AICHA ALVARADO Attending Clinician Unavailable Beau Claire Attending Clinician Unavailable JOBY CRAWFORD Attending Clinician Unavailable JAYLIN BEARD Attending Clinician Unavailable JONA CORRALES Attending Clinician Unavailable Adrian Sorensen Admitting Clinician Unavailable Shahnaz Miller Admitting Clinician Unavailable Physician, No Primary or Family Admitting Clinician Unavaila ble Payers Payer Name Policy Type Policy Number Effective Date Expiration Date S jareth [facility] 16 [id number] 2021 HMO-POS 00:00:00 [employer] [id number] 2021 ADV 00:00:00 Problems Condition Condition Condition Status Onset Resolution Last Treating Co mments Source Name Details Category Date Date Treatment Clinician Date Diarrhea Diarrhea Disease Active Lilia y of of 5-24 Seybold presumed presumed 00:00: - infectious infectious 00 Ex terna origin origin l Immunodefi Immunodefi Disease Active K adriana ciency due ciency due 02-18 Se ybold to to 00:00: - conditions conditions 00 Ex terna classified classified l elsewhere elsewhere Chronic Chronic Disease Active Adeola kidney kidney 02-18 Seybold disease, disease, 00:00: - stage 5, stage 5, 00 Automated Weaver a kidney kidney l failure failure Hypercoagu [...] rna l Paresthesi Paresthesi Disease Active Harsha Head elsetrent as - Not as - Not 06-22 Assessmen Sey bold Controlled Controlled 00:00: t & Plan: - 00 Formattin Externa g of this l note might be different from the original. 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 00:00: - eyes eyes 00 Externa l Bacteremia Bacteremia Disease Active K elsetrent - - -20 Seybold Unchanged Unchanged 00:00: - 00 Externa l GERD GERD Disease Active 2020-10 Adeola (gastroeso (gastroeso 2-06 Se ybold phageal phageal 00:00: - reflux reflux 00 Externa disease) disease) l Hypertensi Hypertensi Disease Active Adilene wright on, on, 9- Seybold essential essential 00:00: - 00 Externa [...] 00:00: - stage IV stage IV 00 Automated Weaver a (severe) (severe) l Hypertensi Hypertensi Disease [...] ents Source Name Type Date Date Clinician Pork/Por FA Active [facility]ine 07-02 Clear Containi 00:00: [place] ng [facility] sucralos FA Active [facility] MIGRAINES [facility] e 07-02 Clear 00:00: [facility] sacchari FA Active SV [facility]RA[facility] n 07-01 Clear 00:00: [facility] aspartam FA Active [facility] 07-01 Clear 00:00: [place] [facility] sacchari FA Active [facility] n 06-11 Clear 00:00: [facility] ARTIFICI DA Active SV [facility] AL 06-10 Clear SWEETNER 00:00: [place] S [facility] No Known DA Active U [facility] Allergie 06-25 Clear s 00:00: [place] [facility] No Known DA Active U [facility] Allergie 06-25 Clear s 00:00: [place] [facility] Sugar-Pr Propensi Active Adeola otein-St ty to 4-11 Seybold arch adverse 00:00: - reaction 00 Externa s l Wheat Propensi Active Adeola Duncan ty to 4-11 Seybold Fiber adverse 00:00: - reaction 00 Externa s l NO KNOWN Allergy Active [facility] ALLERGIE S Social History Social Habit Start Date Stop Date Quantity Comments Source Exposure to Not sure Adeola robledo SARS-CoV-2 (event) History SDOH Adeola Alamoybo ld Alcohol Frequency - Exter nal History SDOH Adeola Alamoybo ld Alcohol Std Drinks - Exte rnal History SDOH Adeola Seybo ld Alcohol Binge - External Gender identity Adeola Se ybold - External Sexual orientation Adeola Seybold - External Tobacco use and 2023-02-23 2023-02-23 Smokeless tobacco Ke lsey Seybold exposure 00:00:00 00:00:00 non-user - External Alcohol intake 2023-02-23 2023-02-23 Current drinker Kel y Seybold 00:00:00 00:00:00 of alcohol - External (finding) Alcohol Comment 2022-03-14 2022-03-14 occ. Adeola Se ybold 00:00:00 00:00:00 - External History of Social 2021-04-24 2021-04-24 Adeola Seybold function 00:00:00 00:00:00 - External Sex [birth year] EUGENIA Bliss [facility] Sm[facility] Status Start Date Stop Date Source Never smoked tobacco Adeola Sagastume old - External Medications Ordered Filled Start Stop Current Ordering Indication Dosage Frequency Signature Comments Components Source Medication Medication Date Date Medication? Clinician (SIG) Name Name Digoxin 125 Yes 125ug Take 1 Rob alamoy MCG oral 5-24 tablet Seybold Tablet 11:49: (125 mcg - 07 total) by Externa mouth l daily Cyanocobala Yes Take by Rob sheikh min (B-12) 5-24 mouth Seybold 1000 MCG 11:49: - oral 07 Externa Lozenge l Multiple Yes Take by Adeola Vitamins-Mi 5-24 mouth Seybold nerals (HM 11:49: - MEMORY 07 Externa COMPLEX OR) l [place]-3 300 Yes Take by Rob sey MG oral 5-24 mouth Seybold Capsule 11:49: - 07 Externa l Cholecalcif Yes [id number] Take Rob sey som (D3 5-24 10,000 mg Seybol d MAXIMUM 11:49: by mouth - STRENGTH 07 Externa OR) l diphenhydrA Yes 25mg Apply 25 Ke lsey MINE-Zinc 5-24 mg Seybold Acetate 11:49: topically - (BENADRYL 07 Externa EX) l Methylsulfo Yes Take by Rob sheikh nylmethane 5-24 mouth Seybold (MSM) 1000 11:49: [...] times daily Furosemide Yes TAKE ONE Rob y (LASIX) 20 4-25 (1) Seybold MG oral [...] - MEMORY 23 Externa COMPLEX OR) l [place]-3 300 Yes Take by Rob sey MG oral 2-08 mouth Seybold Capsule 13:08: - 23 Externa l Cholecalcif Yes [id number] Take Rob sey som (D3 2-08 10,000 [...] - MEMORY 20 Externa COMPLEX OR) l [place]-3 300 Yes Take by Rob alamoy MG oral 1-04 mouth Seybold Capsule 12:47: - 20 Externa l Cholecalcif Yes [id number] Take Rob sheikh som (D3 1-04 10,000 [...] (ZINC OR) 20 Externa l Metformin Yes [id number] 500mg Take 1 K elsey HCl ER 500 1-04 tablet Seybold MG oral 00:00: (500 mg - TABLET SR 00 total) by Exter na 24 HR mouth l daily (with breakfast) Metformin Yes [id number] 500mg Take 1 K elsey HCl ER 500 1-04 tablet Seybold MG oral 00:00: (500 mg - TABLET SR 00 total) by Exter na 24 HR mouth l daily (with breakfast) Metformin Yes [id number] 500mg Take 1 K elsey HCl ER 500 1-04 tablet Seybold MG oral 00:00: (500 mg - TABLET SR 00 total) by Exter na 24 HR mouth l daily (with breakfast) Tramadol 2021-10 Yes [id number] TAKE Kelse y HCl 50 MG 2-09 ONE-HALF Seybol d oral Tablet 00:00: (10/04) - TABLET(S) Externa BY MOUTH l DAILY NEEDED FOR PAIN. Tramadol 2021-10 Yes [id number] TAKE Kelse y HCl 50 MG 2-09 ONE-HALF Seybol d oral Tablet 00:00: (10/04) - 00 TABLET(S) Externa BY MOUTH l DAILY NEEDED FOR PAIN. Tramadol 2021-10 Yes [id number] TAKE Kelse y HCl 50 MG 2-09 ONE-HALF Seybol d oral Tablet 00:00: (10/04) - TABLET(S) Externa BY MOUTH l DAILY NEEDED FOR PAIN. Pantoprazol 2021-10- No TAKE ONE K elsey e Sodium 20 11-11 (1) Seybold MG oral 00:00: 00:00 TABLET(S) - Tablet 00 :00 BY MOUTH Externa Delayed ONCE A l Response DAY. Metformin 2021-10- No [id number] TAKE ONE Adeola HCl ER 500 11-11 (1) Seybold MG oral 00:00: 00:00 TABLET(S) - TABLET SR 00 :00 BY MOUTH Automated Weaver a 24 HR ONCE A DAY l [...] ONCE A l DAY. 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 - (Dexcom G5 00 :00 sugars 3-4 Ext parul Network Field Engineer times l Kit) does daily and not apply PRN Device Continuous 2021-10- No [id number] Patient to Adeola Blood Gluc 10-06 check [...] - MEMORY 51 Externa COMPLEX OR) l [place]-3 300 Yes Take by Rob alamoy MG oral 9-20 mouth Seybold Capsule 14:06: - 51 Externa l diphenhydrA Yes 25mg Apply 25 Ke lsey MINE-Zinc 9-20 mg Seybold Acetate 14:06: topically - (BENADRYL 51 Externa EX) l Methylsulfo Yes Take by Rob alamoy nylmethane 9-20 mouth Seybold (MSM) 1000 14:06: - MG oral 51 Externa Capsule l Multiple Yes Take by Adeola Vitamins-Mi 9-20 mouth Seybold nerals 14:06: - (ZINC OR) 51 Externa l Pantoprazol Yes TAKE ONE Ke lsey e Sodium 20 8-26 (1) Seybold MG oral 00:00: TABLET(S) - Tablet 00 BY MOUTH Externa Delayed ONCE A l Response DAY. Lidocaine Yes [id number] Take 3 ml Adeola HCl 8-11 by mouth Seybold (Lidocaine 00:00: every 4-6 - Viscous 00 hours as Externa HCl) 2 % needed for l mouth/throa throat t Solution pain. Lidocaine 3- No [id number] Take 3 ml Adeola HCl 8-11 01-04 by mouth Seybold (Lidocaine 00:00: 00:00 every 4-6 - Viscous 00 :00 hours as Externa HCl) 2 % needed for l mouth/throa throat t Solution pain. Cholecalcif Yes [id number] Take Rob sey som (D3 7-18 10,000 mg Seybol d MAXIMUM 13:29: by mouth - STRENGTH 51 Externa OR) l Metformin Yes [id number] 500mg Take 1 K elsey HCl ER 500 7-18 tablet Seybold MG oral 00:00: (500 mg - TABLET SR 00 total) by Exter na 24 HR mouth l daily (with breakfast) Duloxetine Yes [id number] 60mg Take 1 Adeola HCl 60 MG 7-18 5 capsule Seybold oral Cap DR 00:00: (60 mg - Particles 00 total) by Exter na mouth 2 l times daily Continuous Yes [id number] Use as K elsey Blood Gluc 7-18 directed Seybo ld Network Field Engineer 00:00: - (FreeStyle 00 Externa Luis Miguel 14 l Day Dale) does not apply Device Continuous Yes [id number] Use as K elsey Blood Gluc 7-18 directed Seybo ld Sensor 00:00: - (FreeStyle 00 Externa Luis Miguel 14 l Day Sensor) does not apply Misc Duloxetine 2021-0 Yes [id number] 60mg Take 1 Adeola HCl 60 MG 7-18 5 capsule Seybold oral Cap DR 00:00: (60 mg - Particles 00 total) by Exter na mouth 2 l times daily Duloxetine 2021-0 Yes [id number] 60mg Take 1 Adeola HCl 60 MG 7-18 5 capsule Seybold oral Cap DR 00:00: (60 mg - Particles 00 total) by Exter na mouth 2 l times daily Duloxetine 2021-0 Yes [id number] 60mg Take 1 Adeola HCl 60 MG 7-18 5 capsule Seybold oral Cap DR 00:00: (60 mg - Particles 00 total) by Exter na mouth 2 l times daily ACETAMINOPH 2021-0 Yes [id number] 1{tbl} Q4H Take 1 Adeola EN-CAFF-BUT 7-01 tablet by Sey bold ALBITAL 00:00: mouth - 50-325-40 00 every 4 Externa MG oral hours as l Tablet needed for pain ACETAMINOPH 2021-0 Yes [id number] 1{tbl} Q4H Take 1 Adeola EN-CAFF-BUT 7-01 tablet by Sey bold ALBITAL 00:00: mouth - 50-325-40 00 every 4 Externa MG oral hours as l Tablet needed for pain ACETAMINOPH 2021-0 Yes [id number] 1{tbl} Q4H Take 1 Adeola EN-CAFF-BUT 7-01 tablet by Sey bold ALBITAL 00:00: mouth - 50-325-40 00 every 4 Externa MG oral hours as l Tablet needed for pain ACETAMINOPH 2021-0 Yes [id number] 1{tbl} Q4H Take 1 Adeola EN-CAFF-BUT 7-01 tablet by Sey bold ALBITAL 00:00: mouth - 50-325-40 00 every 4 Externa MG oral hours as l Tablet needed for pain Omeprazole 2-0 Yes 40mg Take 1 Kelse y 40 MG oral 6-16 capsule Seybol d Delayed 00:00: (40 mg - Release 00 total) by Externa Capsule mouth l daily Omeprazole 2021-0 Yes 40mg Take 1 Kelse [...] total) by Externa Capsule mouth l daily [place]-3-aci Yes [id number] TAKE TWO Adeola d Ethyl 4-07 (2) Seybold Esters 1 g 00:00: CAPSULE(S) - oral 00 BY MOUTH Externa Capsule TWICE A l DAY. [place]-3-aci 3- No [id number] TAKE TWO Adeola d Ethyl 4-07 01-04 [...] nerals (HM 13:05: MEMORY 35 COMPLEX OR) [place]-3 300 Yes Take by Rob alamoy MG oral 3-28 mouth Seybold Capsule 13:05: 35 Cholecalcif Yes [id number] Take Rob sheikh som (D3 -28 10,000 mg Seybol d MAXIMUM 13:05: by mouth STRENGTH 35 OR) diphenhydrA Yes 25mg Apply 25 Ke lsey MINE-Zinc 3-28 mg Seybold Acetate 13:05: topically (BENADRYL 35 EX) Methylsulfo Yes Take by Rob sheikh nylmethane 3-28 mouth Seybold (MSM) 1000 13:05: MG oral 35 Capsule Multiple Yes Take by Adeola Vitamins-Mi 3-28 mouth Seybold nerals 13:05: (ZINC OR) 35 diphenhydrA 2022-0 Yes [id number] Apply 1 Adeola MINE HCl 2 3-28 applicatio Sey bold % apply 00:00: n externally 00 topically Cream 3 to 4 times daily diphenhydrA 2021-0 Yes [id number] 25mg Take 1 Adeola MINE 3-28 tablet (25 Seybold (BENADRYL) 00:00: mg total) 25 MG oral 00 by mouth Tablet once for 1 dose diphenhydrA 2021-0 Yes [id number] Apply 1 Adeola MINE HCl 2 3-28 applicatio Sey bold % apply 00:00: n - externally 00 topically Exte rna Cream 3 to 4 l times daily diphenhydrA 2021-0 Yes [id number] 25mg Take 1 Adeola MINE 3-28 tablet (25 Seybold (BENADRYL) 00:00: mg total) - 25 MG oral 00 by mouth Exter na Tablet once for 1 l dose diphenhydrA 2021-0 Yes [id number] Apply 1 Adeola MINE HCl 2 3-28 applicatio Sey bold % apply 00:00: n - externally 00 topically Exte rna Cream 3 to 4 l times daily diphenhydrA 2021-0 Yes [id number] 25mg Take 1 Adeola MINE 3-28 tablet (25 Seybold (BENADRYL) 00:00: mg total) - 25 MG oral 00 by mouth Exter na Tablet once for 1 l dose diphenhydrA 2021-0 Yes [id number] Apply 1 Adeola MINE HCl 2 3-28 applicatio Sey bold % apply 00:00: n - externally 00 topically Exte rna Cream 3 to 4 l times daily diphenhydrA 2021-0 Yes [id number] 25mg Take 1 Adeola MINE 3-28 tablet (25 Seybold (BENADRYL) 00:00: mg total) - 25 MG oral 00 by mouth Exter na Tablet once for 1 l dose diphenhydrA 2021-0 Yes [id number] Apply 1 Adeola MINE HCl 2 3-28 applicatio Sey bold % apply 00:00: n - externally 00 topically Exte rna Cream 3 to 4 l times daily diphenhydrA 2-0 Yes [id number] 25mg Take 1 Adeola MINE 3-28 tablet [...] 20 daily Cyanocobala Yes Take by Rob sheikh min (B-12) 3-04 mouth Seybold 1000 MCG 15:42: oral 20 Lozenge Multiple Yes Take by Adeola Vitamins-Mi 3-04 mouth Seybold nerals (HM 15:42: MEMORY 20 COMPLEX OR) [place]-3 300 Yes Take by Rob alamoy MG oral 3-04 mouth Seybold Capsule 15:42: 20 Cholecalcif Yes [id number] Take Rob sheikh som (D3 3-04 10,000 [...] Seyb old Sulfate-Mg 00:00: patient in Sulf clinic. (Suprep Use as Bowel Prep directed Kit) by 17.5-3.13-1 provider .6 GM/177ML during oral office Solution visit. Na Yes Instructio Adeola Sulfate-K 3-04 n given to Seyb old Sulfate-Mg 00:00: patient in Sulf clinic. (Suprep Use as Bowel Prep directed Kit) by 17.5-3.13-1 provider .6 GM/177ML during oral office Solution visit. Na Yes Instructio Adeola Sulfate-K 3-04 n given to Seyb old Sulfate-Mg 00:00: patient in - Sulf clinic. Externa (Suprep Use as l Bowel Prep directed Kit) by 17.5-3.13-1 provider .6 GM/177ML during oral office Solution visit. Na Yes Instructio Adeola Sulfate-K 3-04 n given to Mitesh old Sulfate-Mg 00:00: patient in - Sulf 00 clinic. Externa (Suprep Use as l Bowel Prep directed Kit) by 17.5-3.13-1 provider .6 GM/177ML during oral office Solution visit. Na 2021-0 Yes Instructio Adeola Sulfate-K 3-04 n given [...] 14:37: 00:00 daily Tablet 43 :00 Omeprazole 2021- No [id number] 20mg Take 20 mg Adeola 20 MG oral -11-24 by mouth Seyb old Delayed 14:32: 00:00 daily Release 11 :00 Capsule Mirabegron 2021- No Take by Rob sheikh ER -11-24 mouth Seybold (Myrbetriq) 14:30: 00:00 50 MG oral 49 :00 TABLET SR 24 HR Digoxin 125 2021- Yes 125ug Take 125 K elsey MCG oral 2-22 mcg by Seybold Tablet 14:15: mouth 14 daily Cyanocobala Yes Take by Rob sheikh min (B-12) -22 mouth Seybold 1000 MCG 14:15: oral 14 Lozenge Multiple Yes Take by Adeola Vitamins-Mi -22 mouth Seybold nerals (HM 14:15: MEMORY 14 COMPLEX OR) [place]-3 300 Yes Take by Rob sey MG oral 2-22 mouth Seybold Capsule 14:15: 14 Cholecalcif Yes [id number] Take Rob trent som (D3 2-22 10,000 mg Seybol d MAXIMUM 14:15: by mouth STRENGTH 14 OR) diphenhydrA Yes 25mg Apply 25 Ke lsey MINE-Zinc 2-22 mg Seybold Acetate 14:15: topically (BENADRYL 14 EX) Methylsulfo Yes Take by Rob sheikh nylmethane 2-22 mouth Seybold (MSM) 1000 14:15: MG oral 14 Capsule Multiple Yes Take by Adeola Vitamins-Mi 2-22 mouth Seybold nerals 14:15: (ZINC OR) 14 Tramadol Yes [id number] 25mg Q24H Take 0.5 K elsey HCl 50 MG 2-22 tablets Seybold oral Tablet 00:00: (25 mg 00 total) by mouth daily as needed for pain [place]-3-aci Yes [id number] 2g Take 2 Adeola d Ethyl 2-22 capsules Seybold Esters 1 g 00:00: (2 g oral 00 total) by Capsule mouth 2 times daily Metformin Yes [id number] 500mg Take 1 K elsey HCl ER 500 2-22 tablet Seybold MG oral 00:00: (500 mg TABLET SR 00 total) by 24 HR mouth daily (with breakfast) Pantoprazol Yes [id number] 20mg Take 1 Adeola e Sodium 20 2-22 tablet (20 Se ybold MG oral 00:00: mg total) Tablet 00 by mouth Delayed daily Response Tramadol Yes [id number] 25mg Q24H Take 0.5 K elsey HCl 50 MG 2-22 tablets Seybold oral Tablet 00:00: (25 mg 00 total) by mouth daily as needed for pain [place]-3-aci Yes [id number] 2g Take 2 Adeola d Ethyl 2-22 capsules Seybold Esters 1 g 00:00: (2 g oral 00 total) by Capsule mouth 2 times daily Metformin Yes [id number] 500mg Take 1 K elsey HCl ER 500 2-22 tablet Seybold MG oral 00:00: (500 mg TABLET SR 00 total) by 24 HR mouth daily (with breakfast) Pantoprazol Yes [id number] 20mg Take 1 Adeola e Sodium 20 2-22 tablet (20 Se ybold MG oral 00:00: mg total) Tablet 00 by mouth Delayed daily Response Tramadol Yes [id number] 25mg QD Take 0.5 K elsey HCl 50 MG 2-22 tablets Seybold oral Tablet 00:00: (25 mg 00 total) by mouth daily as needed for pain [place]-3-aci Yes [id number] 2g Take 2 Adeola d Ethyl 2-22 capsules Seybold Esters 1 g 00:00: (2 g oral 00 total) by Capsule mouth 2 times daily Metformin Yes [id number] 500mg Take 1 K elsey HCl ER 500 2-22 tablet Seybold MG oral 00:00: (500 mg TABLET SR 00 total) by 24 HR mouth daily (with breakfast) Tramadol Yes [id number] 25mg QD Take 0.5 K elsey HCl 50 MG 2-22 tablets Seybold oral Tablet 00:00: (25 mg - 00 total) by Externa mouth l daily as needed for pain Pantoprazol 2021- No [id number] 20mg Take 1 Adeola e Sodium 20 2-22 -28 tablet (20 S eybold MG oral 00:00: 00:00 mg total) Tablet 00 :00 by mouth Delayed daily Response Omeprazole 2021- No [id number] 20mg Take 1 Adeola 20 MG oral 2-22 - capsule Seybo ld Delayed 00:00: 00:00 (20 mg Release 00 :00 total) by Capsule mouth daily Amoxicillin 2021- No [id number] 1{tbl} Take 1 Adeola -Pot 1-27 - tablet by Seybold Clavulanate 00:00: 00:00 mouth 2 875-125 MG 00 :00 times oral Tablet daily Aspirin 81 2021- Yes 81mg Take 81 mg K elsey MG oral 1-20 by mouth Seybold Chewable 14:55: daily Tablet 32 Digoxin 125 2021-0 Yes 125ug Take 125 [...] nerals (HM 14:55: MEMORY 32 COMPLEX OR) [place]-3 300 Yes Take by Rob alamoy MG oral 1-20 mouth Seybold Capsule 14:55: 32 Cholecalcif Yes [id number] Take Rob sheikh som (D3 1-20 10,000 [...] nerals 14:55: (ZINC OR) 32 Omeprazole Yes [id number] 20mg Take 20 mg Adeola 20 MG oral 1-20 by mouth Seybo ld Delayed 14:55: daily Release 32 Capsule Vancomycin Yes [id number] TAKE 1 Ke lsey HCl 125 MG -07 CAPSULE BY Boby bold oral 00:00: MOUTH Capsule 00 EVERY 6 HOURS FOR 10 DAYS Vancomycin 2021-0 2022- No [id number] TAKE 1 K elsey HCl 125 MG -07 -22 CAPSULE BY Se ybold oral 00:00: 00:00 MOUTH Capsule 00 :00 EVERY 6 HOURS FOR 10 DAYS Sacubitril- 2021-0 2021- No 1{tbl} Take 1 K elsey Valsartan 10-08- tablet by yb old 49-51 MG 09:48: 00:00 mouth 2 oral Tablet 08 :00 times daily Omeprazole 0 Yes [id number] 20mg Take 20 mg Adeola 20 MG oral 1-06 by mouth Seybo ld Delayed 09:11: daily Release 55 Capsule Aspirin 81 Yes 81mg Take 81 mg K elsey MG oral 1-06 by mouth Seybold Chewable 09:11: daily Tablet 54 Digoxin 125 Yes 125ug Take 125 K elsey MCG oral 1-06 mcg by Seybold Tablet 09:11: mouth 54 daily Cyanocobala Yes Take by Rob sheikh min (B-12) 106 mouth Seybold 1000 MCG 09:11: oral 54 Lozenge Mirabegron Yes Take by Yulissa ey ER 10-08 mouth Seybold (Myrbetriq) 09:11: 50 MG oral 54 TABLET SR 24 HR Multiple Yes Take by Adeola Vitamins-Mi - mouth Seybold nerals (HM 09:11: MEMORY 54 COMPLEX OR) [place]-3 300 Yes Take by Rob alamoy MG oral - mouth Seybold Capsule 09:11: 54 Cholecalcif Yes [id number] Take Rob sheikh som (D3 10-08 10,000 mg Seybol d MAXIMUM 09:11: by mouth STRENGTH 54 OR) diphenhydrA Yes 25mg Apply 25 Ke lsey MINE-Zinc 1-06 mg Seybold Acetate 09:11: topically (BENADRYL 54 EX) Methylsulfo Yes Take by Rob sheikh nylmethane 10-08 mouth Seybold (MSM) 1000 09:11: MG oral 54 Capsule Multiple Yes Take by Adeola Vitamins-Mi -06 mouth Seybold nerals 09:11: (ZINC OR) 54 Actemra 2020-10 Yes Adeola ACTPen 162 2-27 [...] 00 daily oral Tablet Tramadol 2020-10 Yes [id number] 25mg Q24H Take 0.5 K elsey HCl [...] lsey Valsartan 2-06 tablet by Seybo ld (TouchBistrosto) 00:00: mouth 97-103 MG 00 daily oral Tablet Tramadol 2020-10 Yes [id number] 25mg Q24H Take 0.5 K elsey HCl [...] lsey Valsartan 2-06 tablet by Seybo ld (TouchBistrosto) 00:00: mouth 97-103 MG 00 daily oral [...] lsey Valsartan 2-06 tablet by Seybo ld (TouchBistrosto) 00:00: mouth 97-103 MG 00 daily oral [...] 1 Ke lsey Valsartan 2-06 tablet by Meet Youo ld (Entresto) 00:00: mouth - 97-103 MG 00 daily Externa oral Tablet l Amiodarone 2020-10 Yes 200mg Take 1 Yulissa ey HCl 200 MG 2-06 tablet Seybold oral Tablet 00:00: (200 mg - 00 total) by Externa mouth 2 l times daily Sacubitril- 2020-10 Yes 1{tbl} Take 1 Ke lsey Valsartan 2-06 tablet by Meet Youo ld (Entresto) 00:00: mouth - 97-103 MG 00 daily Externa oral Tablet l Amiodarone 2020-10 Yes 200mg Take 1 Yulissa ey HCl 200 MG 2-06 tablet Seybold oral Tablet 00:00: (200 mg - 00 total) by Externa mouth 2 l times daily Sacubitril- 2020-10 Yes 1{tbl} Take 1 Ke lsey Valsartan 2-06 tablet by TotalHouseholdybo ld (Entresto) 00:00: mouth - 97-103 MG 00 daily Externa oral Tablet l Amiodarone 2020-10 Yes 200mg Take 1 Yulissa ey HCl 200 MG 2-06 tablet Seybold oral Tablet 00:00: (200 mg - 00 total) by Externa mouth 2 l times daily Sacubitril- 2020-10 Yes 1{tbl} Take 1 Ke lsey Valsartan 2-06 tablet by TotalHouseholdybo ld (Entresto) 00:00: mouth - 97-103 MG 00 daily Externa oral Tablet l Tramadol 2020-10- No [id number] 25mg Q24H Take 0.5 Adeola HCl 50 MG 2-03 04- tablets Seybol d oral Tablet 00:00: 00:00 (25 mg 00 :00 total) by mouth daily as needed for pain Duloxetine 2020-10- No 60mg Take 1 Yulissa ey HCl 60 MG 0-14 12- capsule Seybol d oral Cap DR 00:00: 00:00 (60 mg Particles 00 :00 total) by mouth daily Mupirocin Yes [id number] Apply to Adeola (BACTROBAN) 06-29 scratch 3 Sey bold 2 % apply 00:00: times a externally 00 day. Ointment Mupirocin 0 Yes [id number] Apply to Adeola (BACTROBAN) 9 scratch 3 Sey bold 2 % apply 00:00: times a externally 00 day. Ointment Mupirocin 0 Yes [id number] Apply to Adeola (BACTROBAN) 9 scratch 3 Sey bold 2 % apply 00:00: times a externally 00 day. Ointment Mupirocin 0 Yes [id number] Apply to Adeola (BACTROBAN) 06-29 scratch 3 Sey bold 2 % apply 00:00: times a externally 00 day. Ointment Mupirocin 2021- No [id number] Apply to Adeola (BACTROBAN) 06-29- scratch 3 Se ybold 2 % apply 00:00: 00:00 times a externally 00 :00 day. Ointment Latanoprost 0 Yes 1[drp] Place 1 K [...] Solution 00 every Externa evening l Latanoprost Yes 1[drp] Place 1 K elsey 0.005 % 8-25 drop into Seybold ophthalmic 00:00: both eyes - Solution 00 every Externa evening l Latanoprost Yes 1[drp] Place 1 K elsey 0.005 % 8-25 drop into Seybold ophthalmic 00:00: both eyes - Solution 00 every Externa evening l Latanoprost Yes 1[drp] Place 1 K elsey 0.005 % 8-25 drop into Seybold ophthalmic 00:00: both eyes Solution 00 every evening Latanoprost Yes 1[drp] Place 1 K elsey 0.005 % 8-25 drop into Seybold ophthalmic 00:00: both eyes - Solution 00 every Externa evening l Aspirin 81 Yes 81mg Take 81 mg K elsey MG oral 8-17 by mouth Seybold Chewable 13:53: daily Tablet 02 Sacubitril- Yes 1{tbl} Take 1 Ke lsey Valsartan 8-17 tablet by Davis ld 49-51 MG 13:53: mouth 2 oral Tablet 02 times daily Digoxin 125 Yes 125ug Take 125 K elsey MCG oral 8-17 mcg by Seybold Tablet 13:53: mouth 02 daily Cyanocobala Yes Take by Rob sheikh min (B-12) 8-17 mouth Seybold 1000 MCG 13:53: oral 02 Lozenge Mirabegron Yes Take by Yulissa zelaya ER 8-17 mouth Seybold (Myrbetriq) 13:53: 50 MG oral 02 TABLET SR 24 HR Multiple Yes Take by Adeola Vitamins-Mi 8-17 mouth Seybold nerals (HM 13:53: MEMORY 02 COMPLEX OR) [place]-3 300 Yes Take by Rob sey MG oral 8-17 mouth Seybold Capsule 13:53: 02 Cholecalcif Yes [id number] Take Rob sheikh som (D3 8-17 10,000 [...] 02 Sacubitril- Yes 1{tbl} Take 1 Ke nino Valsartan 8-17 tablet by Seybo ld 49-51 MG 13:53: mouth 2 oral Tablet 02 times daily Digoxin 125 Yes 125ug Take 125 K elsey MCG oral 8-17 mcg by Seybold Tablet 13:53: mouth 02 daily Cyanocobala Yes Take by Rob sheikh min (B-12) 8-17 mouth Seybold 1000 MCG 13:53: oral 02 Lozenge Mirabegron Yes Take by Yulissa ey ER 8-17 mouth Seybold (Myrbetriq) 13:53: 50 MG oral 02 TABLET SR 24 HR Multiple Yes Take by Adeola Vitamins-Mi 8-17 mouth Seybold nerals (HM 13:53: MEMORY 02 COMPLEX OR) [place]-3 300 Yes Take by Rob sey MG oral 8-17 mouth Seybold Capsule 13:53: 02 Cholecalcif Yes [id number] Take Rob alamoy som (D3 8-17 10,000 mg Seybol d [...] 2 l times daily (with meals) Spironolact 2020-0 Yes [...] total) by mouth 2 times daily Carvedilol 2020-0 Yes 6.25mg Take 1 Rob sey 6.25 MG 8-17 tablet Seybold oral Tablet 00:00: (6.25 mg 00 total) by mouth 2 times daily (with meals) Spironolact 1-0 Yes 25mg Take 1 Yulissa ey one 25 MG 8-17 tablet (25 Seyb old oral Tablet 00:00: mg total) 00 by mouth daily Carvedilol 2020-0 3- No 6.25mg Take 1 Ke lsey 6.25 [...] Take 1 Rob sey HCl 200 MG 05-19 tablet Seybol d oral Tablet 00:00: 00:00 [...] ONCE Tablet 00 DAILY WITH MEALS Rosuvastati 0 Yes TAKE 1 Yulissa ey n Calcium 6-28 TABLET BY Seybo ld 20 MG oral 00:00: MOUTH ONCE - Tablet 00 DAILY WITH Externa MEALS l Rosuvastati 0 Yes TAKE 1 Yulissa ey n Calcium 6-28 TABLET BY Seybo ld 20 MG oral 00:00: MOUTH ONCE - Tablet 00 DAILY WITH Externa MEALS l Rosuvastati Yes TAKE 1 Yulissa ey n Calcium 6-28 TABLET BY Seybo ld 20 MG oral 00:00: MOUTH ONCE - Tablet 00 DAILY WITH Externa MEALS l Omeprazole 0 Yes 20mg Take 20 mg K elsey 20 MG oral 6-28 by mouth Seybo ld Delayed 00:00: daily Release 00 Capsule Rosuvastati Yes TAKE 1 Yulissa ey n Calcium 6-28 TABLET BY Seybo ld 20 MG oral 00:00: MOUTH ONCE Tablet 00 DAILY WITH MEALS Omeprazole 0 2021- No 20mg Take 20 mg Adeola 20 MG oral 6-28 11-24 by mouth Seyb old Delayed 00:00: 00:00 daily Release 00 :00 Capsule Vital Signs Vital Name Observation Time Observation Value Comments Source Systolic blood 2023-02-23 16:42:00 137 mm[Hg] Adeola Sierra - pressure External Diastolic blood 2023-02-23 16:42:00 83 mm[Hg] Lilia newman Seybold - pressure External Heart rate 2023-02-23 16:35:00 58 /min Adeola zelayabojuan - External Body temperature 2023-02-23 16:35:00 36.17 Erika Yulissa zelaya Seybold - External Respiratory rate 2023-02-23 16:35:00 18 /min Yulissa Sagastumeold - External Body height 2023-02-23 16:35:00 152.4 cm Adeola lopez - External Body weight 2023-02-23 16:35:00 88.542 kg Adeola S eybold - External BMI 2023-02-23 16:35:00 38.12 kg/m2 Adeola Cárdenas eybold - External Oxygen saturation in 2023-02-23 16:35:00 99 /min Adeola Sierra - Arterial blood by External Pulse oximetry Systolic blood 2022-11-10 19:07:00 134 mm[Hg] Adeola Alamoybold - pressure External Diastolic blood 2022-11-10 19:07:00 69 mm[Hg] Robse y Seybold - pressure External Heart rate 2022-11-10 19:07:00 59 /min Adeola Cárdenas eybold - External Body temperature 2022-11-10 19:07:00 36.5 Erika Yulissa ey Seybold - External Respiratory rate 2022-11-10 19:07:00 [...] Systolic blood 2022-10-06 18:42:00 144 mm[Hg] Adeola Alamoybold - pressure External Diastolic blood 2022-10-06 18:42:00 70 mm[Hg] Lilia y Seybold - pressure External [...] External BMI 2022-10-06 18:42:00 38.08 kg/m2 Adeola S eybold - External Systolic blood 2022-06-22 18:55:00 146 mm[Hg] Adeola Seybold - pressure External Diastolic blood 2022-06-22 18:55:00 79 mm[Hg] Kelse y Seybold - pressure External [...] saturation in 2021-12-04 21:41:00 100 /min Adeola Seybold Arterial blood by [...] saturation in 2021-10-22 16:35:00 100 /min Adeola Sagastumeold Arterial blood by Pulse oximetry Systolic blood [...] Body weight 2021-09-07 17:02:00 78.926 kg Adeola Cárdenas eybold BMI 2021-09-07 17:02:00 33.98 kg/m2 Adeola S eybold Systolic blood 2021-06-29 18:45:00 116 mm[Hg] Adeola Seybold pressure Diastolic blood 2021-06-29 18:45:00 64 mm[Hg] Kelse y Seybold pressure Heart rate 2021-06-29 18:45:00 59 /min Adeola S eybold Body temperature 2021-06-29 18:45:00 36.5 Erika Yulissa ey Seybold Respiratory rate 2021-06-29 18:45:00 14 /min Yulissa ey Seybold Body height 2021-06-29 18:45:00 152.4 cm Adeola S eybold Body weight 2021-06-29 18:45:00 80.559 kg Adeola lopez BMI 2021-06-29 18:45:00 34.69 kg/m2 Adeola lopez Oxygen saturation in 2021-06-29 18:45:00 97 /min Adeola Sierra Arterial blood by Pulse oximetry Systolic blood 2022-11-08 17:02:00 136 mm[Hg] [facility] Diastolic blood 2022-11-08 17:02:00 65 mm[Hg] [facility] Heart rate 2022-11-08 17:02:00 55 /min [facility] Respiratory rate 2022-11-08 17:02:00 18 /min [facility] Oxygen saturation in 2022-11-08 17:02:00 99 /min [facility] Arterial blood by Medical Ce nter Pulse oximetry Body height 2022-11-08 15:02:00 152.4 cm [facility] Body weight 2022-11-08 15:02:00 83.915 kg [facility] BMI 2022-11-08 15:02:00 36.13 kg/m2 [facility] Body temperature 2022-11-08 15:02:00 37 Erika [facility] Procedures Procedure Date / Time Performed Performing Clinician Aguilar el [id number] 2023-06-23 00:00:00 CHAAB.01 [facility] [id number] 2023-06-23 00:00:00 CHAAB.01 [facility] [id number] 2023-06-23 00:00:00 CHAAB.01 [facility] [id number] 2023-06-23 00:00:00 CHAAB.01 [facility] [id number] 2023-06-23 00:00:00 CHAAB.01 [facility] [id number] 2023-06-23 00:00:00 CHAAB.01 [facility] [id number] 2023-06-23 00:00:00 CHAAB.01 [facility] [id number] 2023-06-23 00:00:00 [id number] [facility] MR BRAIN WITH & WITHOUT 2022-11-08 16:58:00 Pollo English [facility] IV CONTRAST [facility] XR CHEST 2 VIEWS 2022-11-08 13:23:00 [facility] ARRYTHMIA IMPLANT 2022-11-08 00:00:00 Provider, Leyla Rowan REPORT - SCAN Scanning [facility] CBC WITH 2021-11-24 21:06:00 Colleen Brown [...] [facility]00 (Season Ended) [code = [facility] INFLUENZA VACCINE (Season Ended)] Future Scheduled 2023-06-03 Influenza Vaccine (#1) [facility] 00:00:00 [code = [facility] (#1)] Future Scheduled 2023-06-03 Influenza Vaccine (#1) [facility] 00:00:00 [code = [facility] Vaccine (#1)] Future Scheduled 2022-10-[address] [facility] DXA [facility] 00:00:00 SCAN] [facility] Future Scheduled 1945 DXA SCAN [code = DXA [facility] 00:00:00 SCAN] [facility] Future Scheduled 1945 DXA SCAN [code = DXA [facility] 00:00:00 SCAN] [facility] Future Scheduled 1945 DXA SCAN [code = DXA [facility] 00:00:00 SCAN] Medical Center Encounters Start End Encounter Admission Attending Care Care Encounter Source Date/Time Date/Time Type Type Clinicians Facility Department ID 2023-07-15 2023-07-15 Outpatient ADEOLA RINCON [id number] Adeola 00:00:00 00:00:00 Seybol d 2023-07-15 2023-07-15 Outpatient ADEOLA RINCON [id number] Ade[facility] 00:00:00 00:00:00 Seybol d 2023-07-01 2023-07-14 Inpatient EM Franchesca MARIA VICTORIACL CARD [id number] [facility] 19:41:00 15:31:00 Adrian Nails [facility] 2023-07-14 2023-07-14 Outpatient ADEOLA HYDE [id number] Adeola 00:00:00 00:00:00 VIRA Seybol d 2023-07-14 2023-07-14 Outpatient ADEOLA RINCON [id number] Adeola 00:00:00 00:00:00 Seybol d 2023-07-13 2023-07-13 Outpatient ADEOLA RINCON [id number] Adeola 00:00:00 00:00:00 Seybol d 2023-07-08 2023-07-08 Outpatient ADEOLA SOLANO [id number] Adeola 00:00:00 00:00:00 ALE Seyb old 2023-07-05 2023-07-05 Outpatient ADEOLA RINCON [id number] Ade[place] 00:00:00 00:00:00 Seybol d 2023-07-05 2023-07-05 Outpatient ADEOLA VERA [id number] Adeola 00:00:00 00:00:00 FORD Seybol d 2023-07-05 2023-07-05 Outpatient ADEOLA RINCON [id number] Adeola 00:00:00 00:00:00 Seybol d 2023-06-13 2023-07-01 Inpatient ESTEFANÍA Ovidio ADILENE INTE [id number] [facility] 11:23:00 16:46:00 Kaia 60 [facility] 2023-06-30 2023-06-30 Outpatient DANIEL MCKEON ADEOLA RINCON [id number] Adeola 14:15:00 14:15:00 Seybol d 2023-06-30 2023-06-30 Outpatient ADEOLA RINCON [id number] Adeola 00:00:00 00:00:00 Seybol d 2023-06-24 2023-06-24 Outpatient ADEOLA RINCON [id number] Adeola 00:00:00 00:00:00 Seybol d 2023-06-23 2023-06-23 Outpatient ADEOLA ANDERSON [id number] Ade[place] 14:00:00 14:00:00 MICHAEL Seybol d 2023-06-21 2023-06-21 Outpatient ADEOLA RINCON [id number] Adeola 00:00:00 00:00:00 Seybol d 2023-06-20 2023-06-20 Outpatient ADEOLA ANDERSON [id number] Adeola 09:15:00 09:15:00 MICHAEL Seybol d 2023-06-15 2023-06-15 Outpatient ADEOLA RINCON [id number] Adeola 00:00:00 00:00:00 Seybol d 2023-06-15 2023-06-15 Outpatient ADEOLA VERA [id number] Adeola 00:00:00 00:00:00 FORD Seybol d 2023-06-15 2023-06-15 Outpatient ADEOLA RINCON [id number] Ade[facility] 00:00:00 00:00:00 Seybol d 2023-06-12 2023-06-12 Outpatient ADEOLA RINCON [id number] Adeola 00:00:00 00:00:00 Seybol d 2023-06-09 2023-06-09 Outpatient DANIEL MCKEON ADEOLA RINCON [id number] Adeola 14:15:00 14:15:00 Seybol d 2023-06-09 2023-06-09 Outpatient ADEOLA RINCON [id number] Ade[place] 00:00:00 00:00:00 Seybol d 2023-06-07 2023-06-07 Outpatient ADEOLA ANDERSON [id number] Adeola 00:00:00 00:00:00 MICHAEL Seybol d 2023-06-07 2023-06-07 Outpatient ADEOLA RINCON [id number] Adeola 00:00:00 00:00:00 Seybol d 2023-06-02 2023-06-02 Outpatient JUAN MALONEY ADEOLA RINCON [id number] Adeola 00:00:00 00:00:00 Seybol d 2023-06-01 2023-06-01 Outpatient ADEOLA RINCON [id number] Adeola 00:00:00 00:00:00 Seybol d 2023-05-20 2023-05-20 Outpatient HUNDADEOLA Levi [id number] Adeola 00:00:00 00:00:00 COLLEEN Seybol d 2023-04-28 2023-04-28 Outpatient TIEDANIEL [id number] Adeola 10:45:00 10:45:00 Seybol d 2023-04-27 2023-04-27 Outpatient PREADEOLA SEAY [id number] Ade[place] 00:00:00 00:00:00 MICHAEL Seybol d 2023-04-12 2023-04-12 Outpatient ADEOLA BROWN [id number] Adeola 00:00:00 00:00:00 COLLEEN Seybol d 2023-04-01 2023-04-01 Outpatient ADEOLA MCCONNELL [id number] Adeola 13:15:00 13:15:00 PATSY Seybol d 2023-03-31 2023-03-31 Outpatient ADEOLA ANDERSON [id number] [facility] 00:00:00 00:00:00 MICHAEL Seybol d 2023-03-25 2023-03-25 Outpatient PREZAADEOLA Cárdenas [id number] Ade[place] 00:00:00 00:00:00 MICHAEL Seybol d 2023-03-25 2023-03-25 Outpatient DEEPAK DELONG [id number] Adeola 00:00:00 00:00:00 Seybol d 2023-03-24 2023-03-24 Outpatient ADEOLA RINCON [id number] Ade[facility] 00:00:00 00:00:00 Seybol d 2023-03-21 2023-03-21 Outpatient TIEDANIEL ADEOLA RINCON [id number] Adeola 14:45:00 14:45:00 Seybol d 2023-02-23 2023-02-23 Outpatient LAB90 ADEOLA RINCON [id number] Adeola 12:15:00 12:15:00 Seybol d 2023-02-23 2023-02-23 Outpatient PREDAWOOD ADEOLA RINCON [id number] Ade[facility] 11:30:00 11:30:00 MICHAEL Seybol d 2023-02-18 2023-02-18 Outpatient HUNDL, ADEOLA RINCON [id number] Adeola 14:00:00 14:00:00 COLLEEN Seybol d 2023-02-10 2023-02-10 Outpatient LAB90 ADEOLA RINCON [id number] Adeola 13:10:00 13:10:00 Seybol d 2023-02-09 2023-02-09 Outpatient ADEOLA RINCON [id number] Adeola 00:00:00 00:00:00 Seybol d 2023-02-08 2023-02-08 Outpatient PREDAWOOD, ADEOLA RINCON [id number] Ade[place] 00:00:00 00:00:00 MICHAEL Seybol d 2023-02-07 2023-02-07 Outpatient LAB90 ADEOLA RINCON [id number] Adeoal 11:05:00 11:05:00 Seybol d 2023-02-07 2023-02-07 Outpatient ADEOLA GOLDEN [id number] Ade[place] 08:15:00 08:15:00 UMA Sey bold 2023-02-04 2023-02-04 Outpatient LAB90 ADEOLA RINCON [id number] [facility] 12:05:00 12:05:00 Seybol d 2023-02-03 2023-02-03 Outpatient ADEOLA GOLDEN [id number] Ade[place] 00:00:00 00:00:00 UMA Sey bold 2023-02-03 2023-02-03 Outpatient ADEOLA BROWN [id number] Ade[place] 00:00:00 00:00:00 COLLEEN Seybol d 2023-02-02 2023-02-02 Outpatient LAB90 ADEOLA RINCON [id number] Ade[place] 14:20:00 14:20:00 Seybol d 2023-01-31 2023-01-31 Outpatient ADEOLA HUTTON [id number] [facility] 00:00:00 00:00:00 HEVER Seybo ld 2023-01-31 2023-01-31 Outpatient ADEOLA RINCON [id number] [facility] 00:00:00 00:00:00 Seybol d 2023-01-31 2023-01-31 Outpatient ADEOLA BROWN [id number] [facility] 00:00:00 00:00:00 COLLEEN Seybol d 2023-01-27 2023-01-27 Outpatient ADEOLA RINCON [id number] [facility] 00:00:00 00:00:00 Seybol d 2023-01-26 2023-01-26 Outpatient ADEOLA GOLDEN [id number] Ade[facility] 10:55:00 10:55:00 UMA Sey bold 2023-01-26 2023-01-26 Outpatient ADEOLA HYDE [id number] Ade[place] 00:00:00 00:00:00 VIRA Seybol d 2023-01-26 2023-01-26 Outpatient ADEOLA BROWN [id number] [facility] 00:00:00 00:00:00 COLLEEN Seybol d 2023-01-26 2023-01-26 Outpatient ADEOLA RINCON [id number] [facility] 00:00:00 00:00:00 Seybol d 2023-01-25 2023-01-25 Outpatient ADEOLA HYDE [id number] [facility] 00:00:00 00:00:00 VIRA Seybol d 2023-01-25 2023-01-25 Outpatient ADEOLA SOLIS [id number] [facility] 00:00:00 00:00:00 CRYSTAL Seybol d 2023-01-25 2023-01-25 Outpatient ADEOLA RINCON [id number] [facility] 00:00:00 00:00:00 Seybol d 2023-01-24 2023-01-24 Outpatient ADEOLA BROWN [id number] [facility] 00:00:00 00:00:00 COLLEEN Seybol d 2023-01-14 2023-01-14 Outpatient TIEDANIEL ADEOLA RINCON [id number] Ade[place] 00:00:00 00:00:00 Seybol d 2023-01-07 2023-01-07 Outpatient PABLONESTORADEOLA [id number] [facility] 00:00:00 00:00:00 RASHNO Seybol d 2023-01-03 2023-01-03 Outpatient ADEOLA HYDE [id number] [facility] 00:00:00 00:00:00 VIRA Seybol d 2022-12-17 2022-12-17 Outpatient LAB90 ADEOLA RINCON [id number] [facility] 13:45:00 13:45:00 Seybol d 2022-12-03 2022-12-03 Outpatient HUNDL, ADEOLA RINCON [id number] [facility] 00:00:00 00:00:00 COLLEEN Seybol d 2022-11-10 2022-11-10 Outpatient OU, ADEOLA RINCON [id number] [facility] 13:00:00 13:00:00 POLLO mcguire 2022-11-08 2022-11-08 Outpatient EL OU, [facility] [id number] [facility] 11:09:28 23:59:00 [place] 2022-11-08 2022-11-08 [facility] [id number] 11:09:28 23:59:00 Encounter [facility] 2022-11-08 2022-11-08 [facility] [id number] 11:09:28 23:59:00 Encounter [facility] 2022-11-02 2022-11-02 Outpatient EL OU, SLEH [facility] [id number] [facility] 00:00:00 00:00:00 POLLO 2022-10-26 2022-10-26 Outpatient OU, ADEOLA RINCON [id number] [place] 11:00:00 11:00:00 POLLO mcguire 2022-10-18 2022-10-18 Outpatient EL OU, SLE[facility] [id number] [facility] 00:00:00 00:00:00 POLLO 2022-10-13 2022-10-13 Outpatient OU, ADEOLA RINCON [id number] [facility] 11:00:00 11:00:00 POLLO Seyb old 2022-10-06 2022-10-06 Outpatient LAB90 ADEOLA RINCON [id number] [facility] 13:45:00 13:45:00 Seybol d 2022-10-06 2022-10-06 Outpatient KEVIN, ADEOLA RINCON [id number] [facility] 13:00:00 13:00:00 COLLEEN Seybol d 2022-10-06 2022-10-06 Outpatient LILALADEOLA [id number] [facility] 00:00:00 00:00:00 COLLEEN Seybol d 2022-10-01 2022-10-01 Outpatient EL OU, SLE SLE [id number] [facility] 00:00:00 00:00:00 POLLO 2022-09-30 2022-09-30 Outpatient ADEOLA BROWN [id number] [facility] 00:00:00 00:00:00 COLLEEN Seybol d 2022-09-15 2022-09-15 Outpatient OU, ADEOLA RINCON [id number] [facility] 14:00:00 14:00:00 POLLO Seyb old 2022 2022 Outpatient ADEOLA BROWN [id number] [facility] 00:00:00 00:00:00 COLLEEN Seybol d 2022 2022 Outside Ou, [facility] [id number] 00:00:00 00:00:00 Orders [facility] 2022 2022 Outside Ou, [facility] [id number] 00:00:00 00:00:00 Orders [facility] 2022-08-23 2022-08-23 Outpatient ADEOLA BROWN [id number] [place] 00:00:00 00:00:00 COLLEEN Seybol d 2022-08-12 2022-08-12 Outpatient ADEOLA HYDE [id number] [facility] 00:00:00 00:00:00 VIRA Seybol d 2022-07-28 2022-07-28 Outpatient MYKELSEYONL ADEOLA RINCON [id number] [facility] 00:00:00 00:00:00 MD MURRAY Seybol d 2022-07-23 2022-07-23 Outpatient OU, ADEOLA RINCON [id number] [facility] 00:00:00 00:00:00 POLLO Seyb old 2022-07-20 2022-07-20 Outpatient HUNDL, ADEOLA RINCON [id number] [facility] 00:00:00 00:00:00 COLLEEN Seybol d 2022-07-20 2022-07-20 Outpatient HUNDL, ADEOLA RINCON [id number] [facility] 00:00:00 00:00:00 COLLEEN Seybol d 2022-07-06 2022-07-06 Outpatient LAB90 ADEOLA RINCON [id number] [facility] 14:00:00 14:00:00 Seybol d 2022-06-22 2022-06-22 Outpatient LAB47 ADEOLA RINCON [id number] [facility] 15:30:00 15:30:00 Seybol d 2022-06-22 2022-06-22 Outpatient OU, ADEOLA RINCON [id number] [facility] 14:30:00 14:30:00 POLLO Seyb old 2022-06-10 2022-06-10 Outpatient HUNDL, ADEOLA RINCON [id number] [facility] 00:00:00 00:00:00 COLLEEN Seybol d 2022-05-13 2022-05-13 Outpatient HUNDL, ADEOLA RINCON [id number] [facility] 00:00:00 00:00:00 COLLEEN Seybol d 2022-05-13 2022-05-13 Outpatient HUNDL, ADEOLA RINCON [id number] [facility] 00:00:00 00:00:00 COLLEEN Seybol d 2022-04-21 2022-04-21 Outpatient HUNDL, ADEOLA RINCON [id number] [facility] 00:00:00 00:00:00 COLLEEN Seybol d 2022-04-19 2022-04-19 Office [place] Facundo [id number] [place] 13:00:00 14:00:00 Visit Colleen Hood [id number] Se ybold [id number] 2022-04-06 2022-04-06 Outpatient BARRETT ADEOLA RINCON [id number] [place] 00:00:00 00:00:00 VIRA Seybol d 2022-04-02 2022-04-02 Outpatient HUNDL, ADEOLA RINCON [id number] [place] 00:00:00 00:00:00 COLLEEN Seybol d 2022-03-18 2022-03-18 Outpatient BALJEET, DEEPAK ADEOLA RINCON [id number] [facility] 11:00:00 11:00:00 Seybol d 2022-03-17 2022-03-17 Outpatient RECIO, ADEOLA RINCON [id number] [place] 00:00:00 00:00:00 KRISTYN Sagastumeo ld 2022-03-15 2022-03-15 Outpatient BALJEET, DEEPAKTrent RINCON [id number] [place] 00:00:00 00:00:00 Seybol d 2022-03-04 2022-03-04 Outpatient BALJEET, DEEPAK ADEOLA RINCON [id number] [facility] 00:00:00 00:00:00 Seybol d 2022-02-25 2022-02-25 Outpatient LAB90 ADEOLA RINCON [id number] [place] 14:30:00 14:30:00 Seybol d 2022-02-25 2022-02-25 Outpatient HUNDL, ADEOLA RINCON [id number] [facility] 00:00:00 00:00:00 COLLEEN Seybol d 2022-02-25 2022-02-25 Outpatient HUNDL, ADEOLA RINCON [id number] [place] 00:00:00 00:00:00 COLLEEN Seybol d 2022-02-15 2022-02-15 Outpatient KATHERINE, LOREDO ADEOLA RINCON [id number] [facility] 10:00:00 10:00:00 Seybol d 2022-02-15 2022-02-15 Outpatient HUNDL, ADEOLA RINCON [id number] [facility] 10:00:00 10:00:00 COLLEEN Seybol d 2022-02-13 2022-02-13 Outpatient SWAB, ADEOLA RINCON [id number] [place] 11:20:00 11:20:00 Seybol d 2022-02-01 2022-02-01 Outpatient BARRETT ADEOLA ADEOLA [id number] [place] 00:00:00 00:00:00 VIRA Seybol d 2022-01-27 2022-01-27 Outpatient LAB90 ADEOLA ADEOLA [id number] [place] 14:45:00 14:45:00 Seybol d 2022-01-25 2022-01-25 Outpatient LAB90 ADEOLA RINCON [id number] [place] 14:55:00 14:55:00 Seybol d 2022-01-25 2022-01-25 Outpatient KEVIN, ADEOLA RINCON [id number] [place] 00:00:00 00:00:00 COLLEEN Seybol d 2022-01-11 2022-01-11 Outpatient KEVIN ADEOLA RINCON [id number] [place] 00:00:00 00:00:00 COLLEEN Seybol d 2022-01-08 2022-01-08 Outpatient LAB90 ADEOLA RINCON [id number] [place] 10:55:00 10:55:00 Seybol d 2022-01-08 2022-01-08 Outpatient KEVIN, ADEOLABOBY RINCON [id number] [place] 00:00:00 00:00:00 COLLEEN Seybol d 2021-12-28 2021-12-28 Office Facundo Brown [id number] [place] 13:00:00 14:00:00 Visit Colleen Hood [id number] Se jose [id number] 2021-12-24 2021-12-24 Outpatient LAB90 ADEOLA RINCON [id number] [place] 10:55:00 10:55:00 Seybol d 2021-12-15 2021-12-15 Outpatient ADEOLA RINCON [id number] [place] 00:00:00 00:00:00 Seybol d 2021-12-15 2021-12-15 Outpatient DEEPAK DELONG [id number] [place] 00:00:00 00:00:00 Seybol d 2021-12-04 2021-12-04 Office Deepak Delong [id number] [place] 16:40:00 17:00:00 Visit [id number] Se ybold [id number] 2021-12-04 2021-12-04 Outpatient BALJEET DEEPAK RINCON [id number] [place] 13:20:00 13:20:00 Seybol d 2021-12-04 2021-12-04 Outpatient BALJEET DEEPAK RINCON [id number] [place] 00:00:00 00:00:00 Seybol d 2021-12-02 2021-12-02 Outpatient ADEOLA BROWN [id number] [place] 00:00:00 00:00:00 COLLEEN Seybol d 2021-12-02 2021-12-02 Outpatient ADEOLA BROWN [id number] [place] 00:00:00 00:00:00 COLLEEN Seybol d 2021-11-25 2021-11-25 Outpatient ADEOLA NAGY [id number] [place] 00:00:00 00:00:00 MUHAMMED Seybo ld 2021-11-24 2021-11-24 Outpatient LAB90 [facility] RINCON [id number] [place] 15:05:00 15:05:00 Seybol d 2021-11-24 2021-11-24 Office Kevin Facundo [id number] [place] 14:00:00 14:30:00 Visit Colleen Hood [id number] Se ybold [id number] 2021-11-20 2021-11-20 Outpatient ADEOLA HYDE [id number] [place] 00:00:00 00:00:00 VIRA Seybol d 2021-11-18 2021-11-18 Outpatient ADEOLA BROWN [id number] [place] 00:00:00 00:00:00 COLLEEN Seybol d 2021-11-16 2021-11-16 Outpatient LAB90 ADE[facility]A RINCON [id number] [place] 14:25:00 14:25:00 Seybol d 2021-11-16 2021-11-16 Outpatient KEVIN [facility] RINCON [id number] [place] 00:00:00 00:00:00 COLLEEN Seybol d 2021-11-13 2021-11-13 Outpatient KEVIN [facility] RINCON [id number] [place] 00:00:00 00:00:00 COLLEEN Seybol d 2021-11-13 2021-11-13 Outpatient LILAL [facility] RINCON [id number] [place] 00:00:00 00:00:00 COLLEEN Seybol d 2021-11-13 2021-11-13 Outpatient HUNDL [facility]A RINCON [id number] [place] 00:00:00 00:00:00 COLLEEN Seybol d 2021-11-05 2021-11-05 Outpatient KEVIN [facility] RINCON [id number] [place] 00:00:00 00:00:00 COLLEEN Seybol d 2021-11-03 2021-11-03 Outpatient ADEOLA RINCON [id number] [place] 09:45:00 09:45:00 Seybol d 2021-10-30 2021-10-30 Outpatient LAB90 ADEOLA RINCON [id number] [place] 11:40:00 11:40:00 Seybol d 2021-10-30 2021-10-30 Outpatient KEVIN A[facility]A RINCON [id number] [place] 00:00:00 00:00:00 COLLEEN Seybol d 2021-10-30 2021-10-30 Outpatient KEVIN [facility] RINCON [id number] [place] 00:00:00 00:00:00 COLLEEN Seybol d 2021-10-29 2021-10-29 Outpatient ADEOLA HYDE [id number] [place] 00:00:00 00:00:00 VIRA Seybol d 2021-10-29 2021-10-29 Outpatient ADEOLA BROWN [id number] [place] 00:00:00 00:00:00 COLLEEN Seybol d 2021-10-28 2021-10-28 Outpatient ADEOLA RINCON [id number] [place] 00:00:00 00:00:00 Seybol d 2021-10-28 2021-10-28 Outpatient SHAKIRA-LATI [facility] RINCON [id number] [place] 00:00:00 00:00:00 ALISA, Seybol d DMITRY 2021-10-27 2021-10-27 Outpatient KEVIN [facility] RINCON [id number] [place] 00:00:00 00:00:00 COLLEEN Seybol d 2021-10-27 2021-10-27 Outpatient LILAClover A[facility]A RINCON [id number] [place] 00:00:00 00:00:00 COLLEEN Seybol d 2021-10-26 2021-10-26 Outpatient ADEOLA RINCON [id number] [place] 00:00:00 00:00:00 Seybol d 2021-10-23 2021-10-23 Outpatient LAB90 ADEOLA RINCON [id number] [place] 10:30:00 10:30:00 Seybol d 2021-10-22 2021-10-22 Outpatient LAB90 ADEOLA RINCON [id number] [place] 11:50:00 11:50:00 Seybol d 2021-10-22 2021-10-22 Office Facundo Brown [id number] [place] 10:30:00 11:30:00 Visit Colleen Hood [id number] Se ybold [id number] 2021-10-22 2021-10-22 Outpatient ADEOLA RINCON [id number] [place] 00:00:00 00:00:00 Seybol d 2021-10-22 2021-10-22 Outpatient ADEOLA BROWN [id number] [place] 00:00:00 00:00:00 COLLEEN Seybol d 2021-10-13 2021-10-13 Outpatient ADEOLA HYDE [id number] [place] 00:00:00 00:00:00 VIRA Seybol d 2021-10-12 2021-10-12 Outpatient ADEOLA RAHMAN [id number] [place] 00:00:00 00:00:00 DESIREE Seybol d 2021-10-12 2021-10-12 Outpatient ADEOLA RINCON [id number] [place] 00:00:00 00:00:00 Seybol d 2021-10-12 2021-10-12 Outpatient ADEOLA RINCON [id number] [place] 00:00:00 00:00:00 Seybol d 2021-10-09 2021-10-09 Outpatient ADEOLA HYDE [id number] [place] 00:00:00 00:00:00 VIRA Seybol d 2021-10-08 2021-10-08 Office Facundo BROWN [id number] [place] 09:30:00 09:30:00 Visit COLLEEN Hood [id number] Se ybold [id number] 2021-10-07 2021-10-07 Outpatient ADEOLA HYDE [id number] [place] 00:00:00 00:00:00 VIRA Seybol d 2021-09-30 2021-09-30 Outpatient SAYRA RAHMAN [id number] [place] 11:45:00 11:45:00 Seybol d 2021-09-07 2021-09-07 Outpatient LAB90 ADEOLA RINCON [id number] [place] 11:55:00 11:55:00 Seybol d 2021-09-07 2021-09-07 Office Barrett Facundo [id number] [place] 11:00:00 11:30:00 Visit Vira Hood 350.1.13.13 Se ybold Somogyi [id number] 2021-09-07 2021-09-07 Outpatient ADEOLA HYDE [id number] [place] 00:00:00 00:00:00 VIRA Seybol d 2021-09-07 2021-09-07 Outpatient ADEOLA RINCON [id number] [place] 00:00:00 00:00:00 Seybol d 2021-07-06 2021-07-06 Outpatient ADEOLA HYDE [id number] [place] 00:00:00 00:00:00 VIRA Seybol d 2021-06-29 2021-06-29 Outpatient LAB90 ADEOLA RINCON [id number] [place] 15:10:00 15:10:00 Seybol d 2021-06-29 2021-06-29 Office Facundo Brown [id number] [place] 13:31:37 14:01:37 Visit Colleen Hood 350.1.13.13 Se jose [id number] 2021-06-22 2021-06-22 Outpatient SAYRA RAHMAN [id number] [place] 15:30:00 15:30:00 Seybol d 2021-05-27 2021-05-27 Outpatient ADEOLA HYDE [id number] [place] 00:00:00 00:00:00 VIRA Seybol d 2021-05-21 2021-05-21 Outpatient ADEOLA BEARD [id number] [place] 00:00:00 00:00:00 THUYMINPerri Seybo ld 2021-05-20 2021-05-20 Outpatient JENNY RINCON 101 [id number] [place] 15:00:00 15:00:00 , AICHANESS Sagastumeo ld 2021-05-19 2021-05-19 Outpatient ADEOLA HYDE [id number] [place] 14:00:00 14:00:00 VIRA Seybol d 2021-05-16 2021-05-16 Emergency EM ivanna, [facility] [id number] [facility] 14:15:00 18:21:00 Beau 04 [facility] 2021-05-16 2021-05-16 Outpatient ADEOLA CRAWFORD [id number] [place] 13:00:00 13:00:00 JOBY Seybol d 2021-05-08 2021-05-08 Outpatient ADEOLA HYDE [id number] [place] 00:00:00 00:00:00 VIRA Seybol d 2021-05-07 2021-05-07 Outpatient ADEOLA RINCON [id number] [place] 15:00:00 15:00:00 Seybol d 2021-04-30 2021-04-30 Outpatient ADEOLA BEARD [id number] [place] 00:00:00 00:00:00 JAYLIN Seybol d 2021-04-29 2021-04-29 Outpatient LAB90 ADEOLA ADEOLA [id number] [place] 13:35:00 13:35:00 Seybol d 2021-04-28 2021-04-28 Outpatient KISHA ADEOLA ADEOLA [id number] [place] 09:30:00 09:30:00 JAYLIN Seybol d 2021-04-28 2021-04-28 Outpatient DEEPAK DELONG ADEOLA RINCON [id number] [place] 00:00:00 00:00:00 Seybol d 2021-04-24 2021-04-24 Outpatient LAB47 ADEOLA RINCON [id number] [place] 14:35:00 14:35:00 Seybol d 2021-04-24 2021-04-24 Outpatient DEEPAK DELONG ADEOLA RINCON [id number] [place] 13:40:00 13:40:00 Seybol d 2021-04-24 2021-04-24 Outpatient SAVANNA ADEOLA RINCON [id number] [place] 11:00:00 11:00:00 JONA Seybol d Results Test Description Test Time Test Comments Results Result Comments Source GLUCOSE BEDSIDE 2023-07-14 12:07:00 Test Item Value Reference Range Interpretation Comme nts GLUCOSE BEDSIDE (test code = 149 MG/DL 70-110 H Performed by certified 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[facility] GLUCOSE [id number] 06:05:00 Test Item Value Reference Range Interpretation Comments GLUCOSE BEDSIDE (test 125 MG/DL 70-110 H Perfor med by certified code = GLUBED) 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[facility] GLUCOSE [id number] 20:11:00 Test Item Value Reference Range Interpretation Comments GLUCOSE BEDSIDE (test 124 MG/DL 70-110 H Perfor med by certified code = GLUBED) 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[facility] GLUCOSE [id number] 16:08:00 Test Item Value Reference Range Interpretation Comments GLUCOSE BEDSIDE (test 96 MG/DL 70-110 N Perfor med by certified code = GLUBED) 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[facility] GLUCOSE [id number] 10:49:00 Test Item Value Reference Range Interpretation Comments GLUCOSE BEDSIDE (test 122 MG/DL 70-110 H Perfor med by certified code = GLUBED) 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[facility] GLUCOSE [id number] 04:36:00 Test Item Value Reference Range Interpretation Comments GLUCOSE BEDSIDE (test 122 MG/DL 70-110 H Perfor med by certified code = GLUBED) 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[facility] GLUCOSE [id number] 20:10:00 Test Item Value Reference Range Interpretation Comments GLUCOSE BEDSIDE (test 107 MG/DL 70-110 N Perfor med by certified code = GLUBED) 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[facility] GLUCOSE [id number] 15:24:00 Test Item Value Reference Range Interpretation Comments GLUCOSE BEDSIDE (test 95 MG/DL 70-110 N Perfor med by certified code = GLUBED) 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[facility] GLUCOSE [id number] 10:53:00 Test Item Value Reference Range Interpretation Comments GLUCOSE BEDSIDE (test 203 MG/DL 70-110 H Perfor med by certified code = GLUBED) 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[facility] GLUCOSE [id number] 05:54:00 Test Item Value Reference Range Interpretation Comments GLUCOSE BEDSIDE (test 112 MG/DL 70-110 H Perfor med by certified code = GLUBED) 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[facility] BASIC METABOLIC [id number] 03:19:00 Test Item Value Reference Range Interpretation Comments SODIUM (test code = 138 mEq/L 134-147 N NA) POTASSIUM (test code 3.9 mEq/L 3.4-5.0 N = K) CHLORIDE (test code 100 mEq/L 100-108 N = CL) CARBON DIOXIDE (test 32 mEq/l 21-33 N code = CO2) ANION GAP (test code 10 0-20 N = GAP) GLUCOSE (test code = 112 mg/dL 77-141 N NOTE: N EW NORMAL RANGE GLU) BLOOD UREA NITROGEN 30 mg/dL 7-25 H NOTE: NE W NORMAL RANGE (test code = BUN) GLOMERULAR 35.7 70-80 L The Glomerular FILTRATION RATE Filtration R ate is a (test code = GFR) calculated parameterbased on serum Creatinine, pat ient age and sex. GFR va luesless than 60 mL/min/ 1.73 square meters a re indicative ofCh ronic Kidney Disease. Values less than 15 mL/min/1.73squa re meters indicate Kidney failure. The calculation forGFR is based on the CKD-EPI (2020) calculat ion. This formulais race indifferent and is the recommended for roxana for GFRby the [facility] for Adults.The GFR will not calculate if th e sex is unknown or if thepatient's ag e is <18 years. CREATININE (test 1.5 mg/dL 0.6-1.3 H code = CREAT) CALCIUM (test code = 8.5 mg/dL 8.0-10.5 N CA) GLUCOSE [id number] 20:10:00 Test Item Value Reference Range Interpretation Comments GLUCOSE BEDSIDE (test 165 MG/DL 70-110 H Perfor med by certified code = GLUBED) 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[facility] GLUCOSE [id number] 16:46:00 Test Item Value Reference Range Interpretation Comments GLUCOSE BEDSIDE (test 158 MG/DL 70-110 H Perfor med by certified code = GLUBED) 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[facility] GLUCOSE [id number] 11:15:00 Test Item Value Reference Range Interpretation Comments GLUCOSE BEDSIDE (test 152 MG/DL 70-110 H Perfor med by certified code = GLUBED) 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[facility] GLUCOSE [id number] 06:06:00 Test Item Value Reference Range Interpretation Comments GLUCOSE BEDSIDE (test 129 MG/DL 70-110 H Perfor med by certified code = GLUBED) 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[facility] GLUCOSE [id number] 20:09:00 Test Item Value Reference Range Interpretation Comments GLUCOSE BEDSIDE (test 126 MG/DL 70-110 H Perfor med by certified code = GLUBED) 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[facility] GLUCOSE [id number] 16:38:00 Test Item Value Reference Range Interpretation Comments GLUCOSE BEDSIDE (test 102 MG/DL 70-110 N Perfor med by certified code = GLUBED) 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[facility] GLUCOSE [id number] 10:29:00 Test Item Value Reference Range Interpretation Comments GLUCOSE BEDSIDE (test 192 MG/DL 70-110 H Perfor med by certified code = GLUBED) 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[facility] BASIC METABOLIC [id number] 08:19:00 Test Item Value Reference Range Interpretation Comments SODIUM (test code = 138 mEq/L 134-147 N NA) POTASSIUM (test code 4.4 mEq/L 3.4-5.0 N = K) CHLORIDE (test code 99 mEq/L 100-108 L = CL) CARBON DIOXIDE (test 31 mEq/l 21-33 N code = CO2) ANION GAP (test code 13 0-20 N = GAP) GLUCOSE (test code = 133 mg/dL 77-141 N NOTE: N EW NORMAL RANGE GLU) BLOOD UREA NITROGEN 29 mg/dL 7-25 H NOTE: NE W NORMAL RANGE (test code = BUN) GLOMERULAR 33.0 70-80 L The Glomerular FILTRATION RATE Filtration R ate is a (test code = GFR) calculated parameterbased on serum Creatinine, pat ient age and sex. GFR va luesless than 60 mL/min/ 1.73 square meters a re indicative ofCh ronic Kidney Disease. Values less than 15 mL/min/1.73squa re meters indicate Kidney failure. The calculation forGFR is based on the CKD-EPI (2020) calculat ion. This formulais race indifferent and is the recommended for roxana for GFRby the Nat [facility] Kidney Found[facility] on for Adults.The GFR will not calculate if th e sex is unknown or if thepatient's ag e is <18 years. CREATININE (test 1.6 mg/dL 0.6-1.3 H code = CREAT) CALCIUM (test code = 8.8 mg/dL 8.0-10.5 N CA) GLUCOSE [id number] 05:39:00 Test Item Value Reference Range Interpretation Comments GLUCOSE BEDSIDE (test 133 MG/DL 70-110 H Perfor med by certified code = GLUBED) 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[facility] GLUCOSE [id number] 20:34:00 Test Item Value Reference Range Interpretation Comments GLUCOSE BEDSIDE (test 87 MG/DL 70-110 N Perfor med by certified code = GLUBED) 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[facility] GLUCOSE [id number] 16:14:00 Test Item Value Reference Range Interpretation Comments GLUCOSE BEDSIDE (test 97 MG/DL 70-110 N Perfor med by certified code = GLUBED) 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[facility] [id number] 12:33:00 Test Item Value Reference Range Interpretation Comments MAGNESIUM (test code = 1.49 mg/dL 1.6-2.6 L NOTE: NEW NORMAL MAG) RANGE CBC W/AUTO [id number] 12:18:00 Test Item Value Reference Range Interpretation Comments WHITE BLOOD CELL (test code = 11.7 x10 3/uL 4.5-11.0 H WBC) RED BLOOD CELL (test code = 3.29 x10 6/uL 3.54-5.02 L RBC) HEMOGLOBIN (test code = HGB) 10.0 g/dL 11.0-15.0 L HEMATOCRIT (test code = HCT) 33.9 % 33.0-45.0 N MEAN CELL VOLUME (test code = 103.0 fL 81.0-99.0 H MCV) MEAN CELL HGB (test code = MCH) 30.4 pg 27.0-33.0 N MEAN CELL HGB CONCETRATION 29.5 g/dL 33.0-37.0 L (test code = MCHC) RED CELL DISTRIBUTION WIDTH CV 17.0 % 11.5-14.5 H (test code = RDW) RED CELL DISTRIBUTION WIDTH SD 64.2 fL 37.0-54.0 H (test code = RDW-SD) PLATELET COUNT (test code = 363 x10 3/uL 150-400 N PLT) MEAN PLATELET VOLUME (test code 9.2 fL 7.0-9.0 H = MPV) NEUTROPHIL % (test code = NT%) 73.1 % 56.0-77.0 N IMMATURE GRANULOCYTE % (test 1.0 % 0.0-2.0 N code = IG%) LYMPHOCYTE % (test code = LY%) 8.7 % 14.0-32.0 L MONOCYTE % (test code = MO%) 8.0 % 4.8-9.0 N EOSINOPHIL % (test code = EO%) 8.2 % 0.3-3.7 H BASOPHIL % (test code = BA%) 1.0 % 0.0-2.0 N NUCLEATED RBC % (test code = 0.0 % 0-0 N NRBC%) NEUTROPHIL # (test code = NT#) 8.53 x10 3/uL 2.0-7.6 H IMMATURE GRANULOCYTE # (test 0.12 x10 3/uL 0.00-0.03 H code = IG#) LYMPHOCYTE # (test code = LY#) 1.02 x10 3/uL 1.0-3.8 N MONOCYTE # (test code = MO#) 0.93 x10 3/uL 0.1-0.8 H EOSINOPHIL # (test code = EO#) 0.96 x10 3/uL 0.0-0.2 H BASOPHIL # (test code = BA#) 0.12 x10 3/uL 0.0-0.2 N NUCLEATED RBC # (test code = 0.00 x10 3/uL 0.0-0.1 N NRBC#) GLUCOSE [id number] 11:18:00 Test Item Value Reference Range Interpretation Comments GLUCOSE BEDSIDE (test 152 MG/DL 70-110 H Perfor med by certified code = GLUBED) 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[facility] GLUCOSE [id number] 07:13:00 Test Item Value Reference Range Interpretation Comments GLUCOSE BEDSIDE (test 102 MG/DL 70-110 N Perfor med by certified code = GLUBED) 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[facility] GLUCOSE [id number] 20:19:00 Test Item Value Reference Range Interpretation Comments GLUCOSE BEDSIDE (test 140 MG/DL 70-110 H Perfor med by certified code = GLUBED) 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[facility] GLUCOSE [id number] 18:05:00 Test Item Value Reference Range Interpretation Comments GLUCOSE BEDSIDE (test 130 MG/DL 70-110 H Perfor med by certified code = GLUBED) 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[facility] - DUP VEIN [id number] 15:29:00 [facility] 1945 Sex: F Name: BREA RODRIGUEZ [facility] : 1945 Age/S: 77 / F [address] [place] [address] BlvdUnit #: [id number] Loc: [place] [address] Phys: Kristyn Soto AGACNP Acct: [id number] Dis Date: Status: ADM IN PHONE #: [phone] Exam Date: 07/08/2023 1504 FAX #: [phone] Reason: rule out DVT of Left lower extremity EXAMS: CPT CODE: [id number] DUP VEIN UNI/LTD 34821 EXAM: - DUP VEIN UNI/LTD HISTORY: rule out DVT of Left lower extremity LOCATION CODE:T18 COMPARISON: None TECHNIQUE: Hendrix-scale B-mode imaging, color doppler interrogation and spectral doppler waveform analysis of the left common femoral, profunda femoral, superficial femoral and popliteal veins was performed. The ipsilateral posterior tibial, anterior tibial and peroneal veins were interrogated as well. FINDINGS: There is compressibility and spontaneous phasic flow in all of the imaged veins. A 4.5 x 1.2 x 3.1 cm fluid collection in the left popliteal fossa is most compatible with a Calderon's cyst. IMPRESSION: No Doppler evidence of left lower extremity DVT. at 1529 Reported and signed by: Sole Brown M.D. CC: Kristyn Soto; Adrian Sorensen MD Technologist: Mariaa De La Cruz Trnscb Date/Time: 07/08/2023 (152) [email or web address] Orig Print D/T: S: 07/08/2023 (1533) Probe: PAGE 1 Signed ReportGLUCOSE [id number] 11:57:00 Test Item Value Reference Range Interpretation Comments GLUCOSE BEDSIDE (test 143 MG/DL 70-110 H [facility] med by certified code = GLUBED) 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[facility] BASIC METABOLIC [id number] 07:56:00 Test Item Value Reference Range Interpretation Comments SODIUM (test code = 141 mEq/L 134-147 N NA) POTASSIUM (test code 3.9 mEq/L 3.4-5.0 N = K) CHLORIDE (test code 102 mEq/L 100-108 N = CL) CARBON DIOXIDE (test 30 mEq/l 21-33 N code = CO2) ANION GAP (test code 13 0-20 N = GAP) GLUCOSE (test code = 125 mg/dL 77-141 NOTE: N EW NORMAL RANGE GLU) BLOOD UREA NITROGEN 32 mg/dL 7-25 H NOTE: NE W NORMAL RANGE (test code = BUN) GLOMERULAR 33.0 70-80 L The Glomerular FILTRATION RATE Filtration R ate is a (test code = GFR) calculated parameterbased on serum Creatinine, pat ient age and sex. GFR va luesless than 60 mL/min/ 1.73 square meters a re indicative ofCh ronic Kidney Disease. Values less than 15 mL/min/1.73squa re meters indicate Kidney failure. The calculation forGFR is based on the CKD-EPI (2020) calculat ion. This formulais race indifferent and is the recommended for roxana for GFRby the [facility] on for Adults.The GFR will not calculate if th e sex is unknown or if thepatient's ag e is <18 years. CREATININE (test 1.6 mg/dL 0.6-1.3 H code = CREAT) CALCIUM (test code = 8.6 mg/dL 8.0-10.5 N CA) B-TYPE NATRIURETIC [id number] 07:00:00 Test Item Value Reference Range Interpretation Comments B-TYPE NATRIURETIC PEPTIDE (test 539.0 PG/ML 0-100 H code = BNP) GLUCOSE [id number] 05:30:00 Test Item Value Reference Range Interpretation Comments GLUCOSE BEDSIDE (test 119 MG/DL 70-110 H Perfor med by certified code = GLUBED) 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[facility] GLUCOSE [id number] 19:43:00 Test Item Value Reference Range Interpretation Comments GLUCOSE BEDSIDE (test 135 MG/DL 70-110 H Perfor med by certified code = GLUBED) 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[facility] GLUCOSE [id number] 16:25:00 Test Item Value Reference Range Interpretation Comments GLUCOSE BEDSIDE (test 125 MG/DL 70-110 H Perfor med by certified code = GLUBED) 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[facility] BASIC METABOLIC [id number] 14:36:00 Test Item Value Reference Range Interpretation Comments SODIUM (test code = 140 mEq/L 134-147 N NA) POTASSIUM (test code 4.1 mEq/L 3.4-5.0 N = K) CHLORIDE (test code 101 mEq/L 100-108 N = CL) CARBON DIOXIDE (test 31 mEq/l 21-33 N code = CO2) ANION GAP (test code 12 0-20 N = GAP) GLUCOSE (test code = 89 mg/dL 77-141 NOTE: N EW NORMAL RANGE GLU) BLOOD UREA NITROGEN 35 mg/dL 7-25 H NOTE: NE W NORMAL RANGE (test code = BUN) GLOMERULAR 33.0 70-80 L The Glomerular FILTRATION RATE Filtration R ate is a (test code = GFR) calculated parameterbased on serum Creatinine, pat ient age and sex. GFR va luesless than 60 mL/min/ 1.73 square meters a re indicative ofCh ronic Kidney Disease. Values less than 15 mL/min/1.73squa re meters indicate Kidney failure. The calculation forGFR is based on the CKD-EPI (2020) calculat ion. This formulais race indifferent and is the recommended for roxana for GFRby the [facility] Kidney Foundati on for Adults.The GFR will not calculate if th e sex is unknown or if thepatient's ag e is <18 years. CREATININE (test 1.6 mg/dL 0.6-1.3 H code = CREAT) CALCIUM (test code = 9.2 mg/dL 8.0-10.5 N CA) GLUCOSE [id number] 12:02:00 Test Item Value Reference Range Interpretation Comments GLUCOSE BEDSIDE (test 188 MG/DL 70-110 H Perfor med by certified code = GLUBED) 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[facility] GLUCOSE [id number] 05:58:00 Test Item Value Reference Range Interpretation Comments GLUCOSE BEDSIDE (test 136 MG/DL 70-110 H Perfor med by certified code = GLUBED) 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[facility] BASIC METABOLIC [id number] 22:15:00 Test Item Value Reference Range Interpretation Comments SODIUM (test code = 139 mEq/L 134-147 N NA) POTASSIUM (test code 4.2 mEq/L 3.4-5.0 N = K) CHLORIDE (test code 103 mEq/L 100-108 N = CL) CARBON DIOXIDE (test 29 mEq/l 21-33 N code = CO2) ANION GAP (test code 11 0-20 N = GAP) GLUCOSE (test code = 122 mg/dL 77-141 N NOTE: N EW NORMAL RANGE GLU) BLOOD UREA NITROGEN 25 mg/dL 7-25 N NOTE: NE W NORMAL RANGE (test code = BUN) GLOMERULAR 30.7 70-80 L The Glomerular FILTRATION RATE Filtration R ate is a (test code = GFR) calculated parameterbased on serum Creatinine, pat ient age and sex. GFR va luesless than 60 mL/min/ 1.73 square meters a re indicative ofCh ronic Kidney Disease. Values less than 15 mL/min/1.73squa re meters indicate Kidney failure. The calculation forGFR is based on the CKD-EPI (2020) calculat ion. This formulais race indifferent and is the recommended for roxana for GFRby the Nat nal Kidney Foundati on for Adults.The GFR will not calculate if th e sex is unknown or if thepatient's ag e is <18 years. CREATININE (test 1.7 mg/dL 0.6-1.3 H code = CREAT) CALCIUM (test code = 8.8 mg/dL 8.0-10.5 N CA) CBC W/AUTO [id number] 21:58:00 Test Item Value Reference Range Interpretation Comments WHITE BLOOD CELL (test code = 13.7 x10 3/uL 4.5-11.0 H WBC) RED BLOOD CELL (test code = 3.01 x10 6/uL 3.54-5.02 L RBC) HEMOGLOBIN (test code = HGB) 9.2 g/dL 11.0-15.0 L HEMATOCRIT (test code = HCT) 30.5 % 33.0-45.0 L MEAN CELL VOLUME (test code = 101.3 fL 81.0-99.0 H MCV) MEAN CELL HGB (test code = MCH) 30.6 pg 27.0-33.0 N MEAN CELL HGB CONCETRATION 30.2 g/dL 33.0-37.0 L (test code = MCHC) RED CELL DISTRIBUTION WIDTH CV 17.4 % 11.5-14.5 H (test code = RDW) RED CELL DISTRIBUTION WIDTH SD 63.3 fL 37.0-54.0 H (test code = RDW-SD) PLATELET COUNT (test code = 343 x10 3/uL 150-400 N PLT) MEAN PLATELET VOLUME (test code 8.8 fL 7.0-9.0 N = MPV) NEUTROPHIL % (test code = NT%) 72.9 % 56.0-77.0 N IMMATURE GRANULOCYTE % (test 2.0 % 0.0-2.0 N code = IG%) LYMPHOCYTE % (test code = LY%) 9.9 % 14.0-32.0 L MONOCYTE % (test code = MO%) 6.6 % 4.8-9.0 N EOSINOPHIL % (test code = EO%) 7.6 % 0.3-3.7 H BASOPHIL % (test code = BA%) 1.0 % 0.0-2.0 N NUCLEATED RBC % (test code = 0.0 % 0-0 N NRBC%) NEUTROPHIL # (test code = NT#) 9.97 x10 3/uL 2.0-7.6 H IMMATURE GRANULOCYTE # (test 0.28 x10 3/uL 0.00-0.03 H code = IG#) LYMPHOCYTE # (test code = LY#) 1.36 x10 3/uL 1.0-3.8 N MONOCYTE # (test code = MO#) 0.90 x10 3/uL 0.1-0.8 H EOSINOPHIL # (test code = EO#) 1.04 x10 3/uL 0.0-0.2 H BASOPHIL # (test code = BA#) 0.13 x10 3/uL 0.0-0.2 N NUCLEATED RBC # (test code = 0.00 x10 3/uL 0.0-0.1 N NRBC#) GLUCOSE [id number] 19:31:00 Test Item Value Reference Range Interpretation Comments GLUCOSE BEDSIDE (test 122 MG/DL 70-110 H Perfor med by certified code = GLUBED) 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[facility] GLUCOSE [id number] 16:43:00 Test Item Value Reference Range Interpretation Comments GLUCOSE BEDSIDE (test 98 MG/DL 70-110 N Perfor med by certified code = GLUBED) 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[facility] GLUCOSE [id number] 11:07:00 Test Item Value Reference Range Interpretation Comments GLUCOSE BEDSIDE (test 153 MG/DL 70-110 H Perfor med by certified code = GLUBED) 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[facility] GLUCOSE [id number] 05:55:00 Test Item Value Reference Range Interpretation Comments GLUCOSE BEDSIDE (test 112 MG/DL 70-110 H Perfor med by certified code = GLUBED) 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[facility] GLUCOSE [id number] 19:46:00 Test Item Value Reference Range Interpretation Comments GLUCOSE BEDSIDE (test 158 MG/DL 70-110 H Perfor med by certified code = GLUBED) 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[facility] GLUCOSE [id number] 16:10:00 Test Item Value Reference Range Interpretation Comments GLUCOSE BEDSIDE (test 123 MG/DL 70-110 H Perfor med by certified code = GLUBED) 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[facility] GLUCOSE [id number] 10:57:00 Test Item Value Reference Range Interpretation Comments GLUCOSE BEDSIDE (test 156 MG/DL 70-110 H Perfor med by certified code = GLUBED) 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[facility] GLUCOSE [id number] 05:47:00 Test Item Value Reference Range Interpretation Comments GLUCOSE BEDSIDE (test 131 MG/DL 70-110 H Perfor med by certified code = GLUBED) 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[facility] GLUCOSE [id number] 19:46:00 Test Item Value Reference Range Interpretation Comments GLUCOSE BEDSIDE (test 148 MG/DL 70-110 H Perfor med by certified code = GLUBED) 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[facility] GLUCOSE [id number] 16:43:00 Test Item Value Reference Range Interpretation Comments GLUCOSE BEDSIDE (test 147 MG/DL 70-110 H Perfor med by certified code = GLUBED) 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[facility] GLUCOSE [id number] 10:59:00 Test Item Value Reference Range Interpretation Comments GLUCOSE BEDSIDE (test 168 MG/DL 70-110 H Perfor med by certified code = GLUBED) 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[facility] BASIC METABOLIC [id number] 07:24:00 Test Item Value Reference Range Interpretation Comments SODIUM (test code = 142 mEq/L 134-147 N NA) POTASSIUM (test code 4.1 mEq/L 3.4-5.0 N = K) CHLORIDE (test code 103 mEq/L 100-108 N = CL) CARBON DIOXIDE (test 30 mEq/l 21-33 N code = CO2) ANION GAP (test code 13 0-20 N = GAP) GLUCOSE (test code = 127 mg/dL 77-141 N NOTE: N EW NORMAL RANGE GLU) BLOOD UREA NITROGEN 27 mg/dL 7-25 H NOTE: NE W NORMAL RANGE (test code = BUN) GLOMERULAR 42.4 70-80 L The Glomerular FILTRATION RATE Filtration R ate is a (test code = GFR) calculated parameterbased on serum Creatinine, pat ient age and sex. GFR va luesless than 60 mL/min/ 1.73 square meters a re indicative ofCh ronic Kidney Disease. Values less than 15 mL/min/1.73squa re meters indicate Kidney failure. The calculation forGFR is based on the CKD-EPI (2020) calculat ion. This formulais race indifferent and is the recommended for roxana for GFRby the [facility] on for Adults.The GFR will not calculate if th e sex is unknown or if thepatient's ag e is <18 years. 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[facility] GLUCOSE [id number] 15:55:00 Test Item Value Reference Range Interpretation Comments GLUCOSE BEDSIDE (test 89 MG/DL 70-110 N Perfor med by certified code = GLUBED) 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[facility] GLUCOSE [id number] 11:03:00 Test Item Value Reference Range Interpretation Comments GLUCOSE BEDSIDE (test 186 MG/DL 70-110 H Perfor med by certified code = GLUBED) 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[facility] GLUCOSE [id number] 05:55:00 Test Item Value Reference Range Interpretation Comments GLUCOSE BEDSIDE (test 117 MG/DL 70-110 H Perfor med by certified code = GLUBED) 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[facility] GLUCOSE [id number] 19:49:00 Test Item Value Reference Range Interpretation Comments GLUCOSE BEDSIDE (test 173 MG/DL 70-110 H Perfor med by certified code = GLUBED) 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[facility] GLUCOSE [id number] 16:39:00 Test Item Value Reference Range Interpretation Comments GLUCOSE BEDSIDE (test 133 MG/DL 70-110 H Perfor med by certified code = GLUBED) 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[facility] GLUCOSE [id number] 12:43:00 Test Item Value Reference Range Interpretation Comments GLUCOSE BEDSIDE (test 169 MG/DL 70-110 H Perfor med by certified code = GLUBED) 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[facility] VITAMIN [id number] 09:06:00 Test Item Value Reference Range Interpretation Comments VITAMIN B12 (test code = VITB12) 1377 pg/mL 193-986 H Indication for Test: Osteopenia/Bone Dis RiskFOLIC [id number] 09:06:00 Test Item Value Reference Range Interpretation Comments FOLIC ACID (test code = FOL) 20.3 ng/mL 3.1-17.5 H Indication for Test: Osteopenia/Bone Dis RiskVITAMIN D [id number] 09:06:00 Test Item Value Reference Range Interpretation Comments VITAMIN D 25-HYDROXY (test code = 58.0 ng/mL 30-100 N VITD25) Indication for Test: Osteopenia/Bone Dis RiskTHYROID STIMULATING HORMONE 2023-07-02 09:06:00 Test Item Value Reference Range Interpretation Comments THYROID STIMULATING 3.72 0.42-5.47 N Results in HORMONE (test code = TSH) mi lli-International Units/mL GLUCOSE [id number] 07:21:00 Test Item Value Reference Range Interpretation Comments GLUCOSE BEDSIDE (test 124 MG/DL 70-110 H Perfor med by certified code = GLUBED) 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[facility] GLUCOSE [id number] 16:38:00 Test Item Value Reference Range Interpretation Comments GLUCOSE BEDSIDE (test 169 MG/DL 70-110 H Perfor med by certified code = GLUBED) 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[facility] GLUCOSE [id number] 16:03:00 Test Item Value Reference Range Interpretation Comments GLUCOSE BEDSIDE (test 165 MG/DL 70-110 H Perfor med by certified code = GLUBED) 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 Leeanne t performance dep ends on theamount of vi kana (antigen) in th e sample.This leeanne t has not been FDA cleare d or approved; the t est hasbeen authorized by [facility] under an Emergency Use Authorization(E UA) for use by laboratories certified under the CLIA thatmeet the requirements to perform moderate, high or waivedcomplexit y tests. - XR CHEST 1 [id number] 08:33:00 [facility] : 1945 Sex: F FAX: Sherrill Zurita MD [phone] Moore: St: ADM FAX: Shahnaz Miller MD [phone] FAX: Kaia Nolan MD Name: BREA ZULUAGA [facility] : 1945 Age/S: 77/F [address] [place] [address] Unit #: [id number] Loc: [id number] [place] [address] Phys: Sherrill Liang MD Acct: [id number] Dis Date:Status: ADM IN PHONE #: [phone] Exam Date: 07/01/2023 0708 FAX #: [phone] Reason: S/P CABG, R/O EFFUSION EXAMS: CPT CODE: [id number] XR CHEST 1 V 11463 REASON FOR EXAM: CABG, effusion. COMPARISON: June 29, 2023.. Chest, portable single frontal view. The lungs are well-inflated with similar pulmonary edema pattern and congestion.. Heart size is enlarged with CABG changes. ICD leads appear to be intact. No effusion or pneumothorax can be seen. Osseous structures appear to be intact. IMPRESSION: Vascular congestion/heart failure continue. Location: [facility] at 0833 Reported and signed by: Alf Banks M.D. 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[facility] BASIC METABOLIC [id number] 07:23:00 Test Item Value Reference Range Interpretation Comments SODIUM (test code = 140 mEq/L 134-147 N NA) POTASSIUM (test code 4.3 mEq/L 3.4-5.0 N = K) CHLORIDE (test code 105 mEq/L 100-108 N = CL) CARBON DIOXIDE (test 26 mEq/l 21-33 N code = CO2) ANION GAP (test code 13 0-20 N = GAP) GLUCOSE (test code = 125 mg/dL 77-141 N NOTE: N EW NORMAL RANGE GLU) BLOOD UREA NITROGEN 21 mg/dL 7-25 N NOTE: NE W NORMAL RANGE (test code = BUN) GLOMERULAR 51.8 70-80 L The Glomerular FILTRATION RATE Filtration R ate is a (test code = GFR) calculated parameterbased on serum Creatinine, pat ient age and sex. GFR va luesless than 60 mL/min/ 1.73 square meters a re indicative ofCh ronic Kidney Disease. Values less than 15 mL/min/1.73squa re meters indicate Kidney failure. The calculation forGFR is based on the CKD-EPI (2020) calculat ion. This formulais race indifferent and is the recommended for roxana for GFRby the [facility] Foundati on for Adults.The GFR will not calculate if th e sex is unknown or if thepatient's ag e is <18 years. CREATININE (test 1.1 mg/dL 0.6-1.3 N code = CREAT) CALCIUM (test code = 8.8 mg/dL 8.0-10.5 N CA) [id number] 07:23:00 Test Item Value Reference Range Interpretation Comments MAGNESIUM (test code = 2.00 mg/dL 1.6-2.6 N NOTE: NEW NORMAL MAG) RANGE CBC W/AUTO [id number] 07:15:00 Test Item Value Reference Range Interpretation Comments WHITE BLOOD CELL (test code = 12.7 x10 3/uL 4.5-11.0 H WBC) RED BLOOD CELL (test code = 2.99 x10 6/uL 3.54-5.02 L RBC) HEMOGLOBIN (test code = HGB) 9.0 g/dL 11.0-15.0 L HEMATOCRIT (test code = HCT) 29.2 % 33.0-45.0 L MEAN CELL VOLUME (test code = 97.7 fL 81.0-99.0 N MCV) MEAN CELL HGB (test code = MCH) 30.1 pg 27.0-33.0 N MEAN CELL HGB CONCETRATION 30.8 g/dL 33.0-37.0 L (test code = MCHC) RED CELL DISTRIBUTION WIDTH CV 16.2 % 11.5-14.5 H (test code = RDW) RED CELL DISTRIBUTION WIDTH SD 57.1 fL 37.0-54.0 H (test code = RDW-SD) PLATELET COUNT (test code = 308 x10 3/uL 150-400 N PLT) MEAN PLATELET VOLUME (test code 9.6 fL 7.0-9.0 H = MPV) NEUTROPHIL % (test code = NT%) 68.7 % 56.0-77.0 N IMMATURE GRANULOCYTE % (test 2.8 % 0.0-2.0 H code = IG%) LYMPHOCYTE % (test code = LY%) 8.8 % 14.0-32.0 L MONOCYTE % (test code = MO%) 10.6 % 4.8-9.0 H EOSINOPHIL % (test code = EO%) 8.5 % 0.3-3.7 H BASOPHIL % (test code = BA%) 0.6 % 0.0-2.0 N NUCLEATED RBC % (test code = 0.0 % 0-0 N NRBC%) NEUTROPHIL # (test code = NT#) 8.73 x10 3/uL 2.0-7.6 H IMMATURE GRANULOCYTE # (test 0.35 x10 3/uL 0.00-0.03 H code = IG#) LYMPHOCYTE # (test code = LY#) 1.12 x10 3/uL 1.0-3.8 N MONOCYTE # (test code = MO#) 1.35 x10 3/uL 0.1-0.8 H EOSINOPHIL # (test code = EO#) 1.08 x10 3/uL 0.0-0.2 H BASOPHIL # (test code = BA#) 0.07 x10 3/uL 0.0-0.2 N NUCLEATED RBC # (test code = 0.00 x10 3/uL 0.0-0.1 N NRBC#) MANUAL DIFF REQUIRED (test code NO = MDIFF) GLUCOSE [id number] 19:52:00 Test Item Value Reference Range Interpretation Comments GLUCOSE BEDSIDE (test 186 MG/DL 70-110 H Perfor med by certified code = GLUBED) 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[facility] GLUCOSE [id number] 17:03:00 Test Item Value Reference Range Interpretation Comments GLUCOSE BEDSIDE (test 182 MG/DL 70-110 H Perfor med by certified code = GLUBED) 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[facility] GLUCOSE [id number] 12:19:00 Test Item Value Reference Range Interpretation Comments GLUCOSE BEDSIDE (test 200 MG/DL 70-110 H Perfor med by certified code = GLUBED) 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[facility] GLUCOSE [id number] 08:16:00 Test Item Value Reference Range Interpretation Comments GLUCOSE BEDSIDE (test 130 MG/DL 70-110 H Perfor med by certified code = GLUBED) 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[facility] BASIC METABOLIC [id number] 08:10:00 Test Item Value Reference Range Interpretation Comments SODIUM (test code = 137 mEq/L 134-147 N NA) POTASSIUM (test code 3.8 mEq/L 3.4-5.0 N = K) CHLORIDE (test code 102 mEq/L 100-108 N = CL) CARBON DIOXIDE (test 31 mEq/l 21-33 N code = CO2) ANION GAP (test code 8 0-20 N = GAP) GLUCOSE (test code = 126 mg/dL 77-141 N NOTE: N EW NORMAL RANGE GLU) BLOOD UREA NITROGEN 33 mg/dL 7-25 H NOTE: NE W NORMAL RANGE (test code = BUN) GLOMERULAR 46.6 70-80 L The Glomerular FILTRATION RATE Filtration R ate is a (test code = GFR) calculated parameterbased on serum Creatinine, pat ient age and sex. GFR va luesless than 60 mL/min/ 1.73 square meters a re indicative ofCh ronic Kidney Disease. Values less than 15 mL/min/1.73squa re meters indicate Kidney failure. The calculation forGFR is based on the CKD-EPI (2020) calculat ion. This formulais race indifferent and is the recommended for roxana for GFRby the [facility] on for Adults.The GFR will not calculate if th e sex is unknown or if thepatient's ag e is <18 years. CREATININE (test 1.2 mg/dL 0.6-1.3 N code = CREAT) CALCIUM (test code = 8.9 mg/dL 8.0-10.5 N CA) [id number] 08:10:00 Test Item Value Reference Range Interpretation Comments MAGNESIUM (test code = 2.09 mg/dL 1.6-2.6 N NOTE: NEW NORMAL MAG) RANGE CBC W/AUTO [id number] 08:01:00 Test Item Value Reference Range Interpretation Comments WHITE BLOOD CELL (test code = 11.3 x10 3/uL 4.5-11.0 H WBC) RED BLOOD CELL (test code = 2.91 x10 6/uL 3.54-5.02 L RBC) HEMOGLOBIN (test code = HGB) 8.7 g/dL 11.0-15.0 L HEMATOCRIT (test code = HCT) 28.4 % 33.0-45.0 L MEAN CELL VOLUME (test code = 97.6 fL 81.0-99.0 N MCV) MEAN CELL HGB (test code = MCH) 29.9 pg 27.0-33.0 N MEAN CELL HGB CONCETRATION 30.6 g/dL 33.0-37.0 L (test code = MCHC) RED CELL DISTRIBUTION WIDTH CV 15.9 % 11.5-14.5 H (test code = RDW) RED CELL DISTRIBUTION WIDTH SD 56.0 fL 37.0-54.0 H (test code = RDW-SD) PLATELET COUNT (test code = 282 x10 3/uL 150-400 N PLT) MEAN PLATELET VOLUME (test code 9.7 fL 7.0-9.0 H = MPV) NEUTROPHIL % (test code = NT%) 71.2 % 56.0-77.0 N IMMATURE GRANULOCYTE % (test 2.5 % 0.0-2.0 H code = IG%) LYMPHOCYTE % (test code = LY%) 8.2 % 14.0-32.0 L MONOCYTE % (test code = MO%) 11.2 % 4.8-9.0 H EOSINOPHIL % (test code = EO%) 6.4 % 0.3-3.7 H BASOPHIL % (test code = BA%) 0.5 % 0.0-2.0 N NUCLEATED RBC % (test code = 0.0 % 0-0 N NRBC%) NEUTROPHIL # (test code = NT#) 8.02 x10 3/uL 2.0-7.6 H IMMATURE GRANULOCYTE # (test 0.28 x10 3/uL 0.00-0.03 H code = IG#) LYMPHOCYTE # (test code = LY#) 0.92 x10 3/uL 1.0-3.8 L MONOCYTE # (test code = MO#) 1.26 x10 3/uL 0.1-0.8 H EOSINOPHIL # (test code = EO#) 0.72 x10 3/uL 0.0-0.2 H BASOPHIL # (test code = BA#) 0.06 x10 3/uL 0.0-0.2 N NUCLEATED RBC # (test code = 0.00 x10 3/uL 0.0-0.1 N NRBC#) MANUAL DIFF REQUIRED (test code NO = MDIFF) GLUCOSE [id number] 21:14:00 Test Item Value Reference Range Interpretation Comments GLUCOSE BEDSIDE (test 179 MG/DL 70-110 H Perfor med by certified code = GLUBED) 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[facility] GLUCOSE [id number] 17:18:00 Test Item Value Reference Range Interpretation Comments GLUCOSE BEDSIDE (test 133 MG/DL 70-110 H Perfor med by certified code = GLUBED) 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[facility] GLUCOSE [id number] 12:22:00 Test Item Value Reference Range Interpretation Comments GLUCOSE BEDSIDE (test 206 MG/DL 70-110 H Perfor med by certified code = GLUBED) 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[facility] GLUCOSE [id number] 08:29:00 Test Item Value Reference Range Interpretation Comments GLUCOSE BEDSIDE (test 125 MG/DL 70-110 H Perfor med by certified code = GLUBED) 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[facility] - XR CHEST 1 [id number] 07:58:00 [facility] : 1945 Sex: F FAX: Shahnaz Miller MD [phone] Moore: St: [facility] FAX: Kaia Nolan MD FAX: Will Dean L Phy [phone] Name: BREA ZULUAGA [facility] : 1945 Age/S: 77/F [address] [place] [address] Unit #: [id number] Loc: [place] [address] Phys: Estee Jordan Acct: [id number] Dis Date: Status: ADM IN PHONE #: [phone] Exam Date: 06/29/2023624 FAX #: [phone] Reason: Cardiac Surgery Post Op EXAMS: CPT CODE: [id number] XR CHEST 1 V 04840 EXAM: - XR CHEST 1 V HISTORY: Cardiac Surgery Post Op LOCATION CODE:H106 COMPARISON: Prior day FINDINGS: Allowing for slight difference in patient positioning, there is similar appearance of cardiomegaly and vascular congestion compared to prior imaging. Stable left subclavian approach ICD leads.. No appreciable pneumothorax or sizable pleural effusion. IMPRESSION: No significant interval change. at 0758 Reported and signed by: Sole Brown M.D. CC: Shahnaz Miller MD; Kaia Nolan MD; Estee Jordan Technologist: RT Vic(Maddison) Trnscrd Date/Time/By: 06/29/2023 (0758) : By: [email or web address] Orig Print D/T: S: 06/29/2023 (0801) PAGE 1 Signed ReportBASIC METABOLIC [id number] 03:21:00 Test Item Value Reference Range Interpretation Comments SODIUM (test code = 137 mEq/L 134-147 N NA) POTASSIUM (test code 3.7 mEq/L 3.4-5.0 N = K) CHLORIDE (test code 101 mEq/L 100-108 N = CL) CARBON DIOXIDE (test 32 mEq/l 21-33 N code = CO2) ANION GAP (test code 8 0-20 N = GAP) GLUCOSE (test code = 134 mg/dL 77-141 N NOTE: N EW NORMAL RANGE GLU) BLOOD UREA NITROGEN 43 mg/dL 7-25 H NOTE: NE W NORMAL RANGE (test code = BUN) GLOMERULAR 38.8 70-80 L The Glomerular FILTRATION RATE Filtration R ate is a (test code = GFR) calculated parameterbased on serum Creatinine, pat ient age and sex. GFR va luesless than 60 mL/min/ 1.73 square meters a re indicative ofCh ronic Kidney Disease. Values less than 15 mL/min/1.73squa re meters indicate Kidney failure. The calculation forGFR is based on the CKD-EPI (2020) calculat ion. This formulais race indifferent and is the recommended for roxana for GFRby the [facility]ney Foundati on for Adults.The GFR will not calculate if th e sex is unknown or if thepatient's ag e is <18 years. CREATININE (test 1.4 mg/dL 0.6-1.3 H code = CREAT) CALCIUM (test code = 8.3 mg/dL 8.0-10.5 N CA) [id number] 03:21:00 Test Item Value Reference Range Interpretation Comments MAGNESIUM (test code = 2.36 mg/dL 1.6-2.6 N NOTE: NEW NORMAL MAG) RANGE CBC W/AUTO [id number] 02:59:00 Test Item Value Reference Range Interpretation Comments WHITE BLOOD CELL (test code = 9.5 x10 3/uL 4.5-11.0 N WBC) RED BLOOD CELL (test code = 2.73 x10 6/uL 3.54-5.02 L RBC) HEMOGLOBIN (test code = HGB) 8.0 g/dL 11.0-15.0 L HEMATOCRIT (test code = HCT) 25.9 % 33.0-45.0 L MEAN CELL VOLUME (test code = 94.9 fL 81.0-99.0 N MCV) MEAN CELL HGB (test code = MCH) 29.3 pg 27.0-33.0 N MEAN CELL HGB CONCETRATION 30.9 g/dL 33.0-37.0 L (test code = MCHC) RED CELL DISTRIBUTION WIDTH CV 15.9 % 11.5-14.5 H (test code = RDW) RED CELL DISTRIBUTION WIDTH SD 54.3 fL 37.0-54.0 H (test code = RDW-SD) PLATELET COUNT (test code = 219 x10 3/uL 150-400 N PLT) MEAN PLATELET VOLUME (test code 9.7 fL 7.0-9.0 H = MPV) NEUTROPHIL % (test code = NT%) 73.4 % 56.0-77.0 N IMMATURE GRANULOCYTE % (test 1.4 % 0.0-2.0 N code = IG%) LYMPHOCYTE % (test code = LY%) 7.0 % 14.0-32.0 L MONOCYTE % (test code = MO%) 12.9 % 4.8-9.0 H EOSINOPHIL % (test code = EO%) 5.0 % 0.3-3.7 H BASOPHIL % (test code = BA%) 0.3 % 0.0-2.0 N NUCLEATED RBC % (test code = 0.0 % 0-0 N NRBC%) NEUTROPHIL # (test code = NT#) 6.98 x10 3/uL 2.0-7.6 N IMMATURE GRANULOCYTE # (test 0.13 x10 3/uL 0.00-0.03 H code = IG#) LYMPHOCYTE # (test code = LY#) 0.67 x10 3/uL 1.0-3.8 L MONOCYTE # (test code = MO#) 1.23 x10 3/uL 0.1-0.8 H EOSINOPHIL # (test code = EO#) 0.48 x10 3/uL 0.0-0.2 H BASOPHIL # (test code = BA#) 0.03 x10 3/uL 0.0-0.2 N NUCLEATED RBC # (test code = 0.00 x10 3/uL 0.0-0.1 N NRBC#) MANUAL DIFF REQUIRED (test code NO = MDIFF) BASIC METABOLIC [id number] 22:31:00 Test Item Value Reference Range Interpretation Comments SODIUM (test code = 133 mEq/L 134-147 L NA) POTASSIUM (test code 3.3 mEq/L 3.4-5.0 L = K) CHLORIDE (test code 99 mEq/L 100-108 L = CL) CARBON DIOXIDE (test 33 mEq/l 21-33 N code = CO2) ANION GAP (test code 5 0-20 N = GAP) GLUCOSE (test code = 173 mg/dL 77-141 H NOTE: N EW NORMAL RANGE GLU) BLOOD UREA NITROGEN 42 mg/dL 7-25 H NOTE: NE W NORMAL RANGE (test code = BUN) GLOMERULAR 35.7 70-80 L The Glomerular FILTRATION RATE Filtration R ate is a (test code = GFR) calculated parameterbased on serum Creatinine, pat ient age and sex. GFR va luesless than 60 mL/min/ 1.73 square meters a re indicative ofCh ronic Kidney Disease. Values less than 15 mL/min/1.73squa re meters indicate Kidney failure. The calculation forGFR is based on the CKD-EPI (2020) calculat ion. This formulais race indifferent and is the recommended for roxana for GFRby the Nat n[facility] Kidney Foundati on for Adults.The GFR will not calculate if th e sex is unknown or if thepatient's ag e is <18 years. 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[facility] GLUCOSE [id number] 12:11:00 Test Item Value Reference Range Interpretation Comments GLUCOSE BEDSIDE (test 160 MG/DL 70-110 H Perfor med by certified code = GLUBED) 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[facility] - XR CHEST 1 [id number] 07:18:00 [facility] : 1945 Sex: F FAX: Shahnaz Miller MD [phone] Moore: St: ADM FAX: Kaia Nolan MD FAX: Ofelia Dean Phy [phone] Name: BREA ZULUAGA [facility] : 1945 Age/S: 77/F [address] [place] [address] Blvd Unit #: [id number] Loc: [place] [address] Phys: Estee Jordan Acct: [id number] Dis Date: Status: ADM IN PHONE #: [phone] Exam Date: 06/28/2023522 FAX #: [phone] Reason: Cardiac Surgery Post Op EXAMS: CPT CODE: [id number] XR CHEST 1 V 63836 HISTORY: Follow- up postop Location: C3 COMPARISON:06/27/2023 FINDINGS: Cardiomegaly and vascular congestion persists. Previously seen right IJ catheter has been removed. No pneumothorax. Mild perihilar opacity persists. No other changescompared to prior exam. IMPRESSION: 1. Interval removal of right IJ catheter. 2. Cardiomegaly with vascular congestion similar to prior study. Electronically Signed by Gustabo Franco on 3at 0718 Reported and signed by: Alf Franco M.D. CC: Shahnaz Miller MD; Kaia Nolan MD; Estee Jordan Technologist: RT Dario(R) Trnscrd Date/Time/By: 06/28/2023 (07) : By : [email or web address] Orig Print D/T: S: 06/28/2023 (7612) PAGE 1 Signed ReportBASIC METABOLIC [id number] 04:53:00 Test Item Value Reference Range Interpretation Comments SODIUM (test code = 134 mEq/L 134-147 N NA) POTASSIUM (test code 3.5 mEq/L 3.4-5.0 N = K) CHLORIDE (test code 99 mEq/L 100-108 L = CL) CARBON DIOXIDE (test 32 mEq/l 21-33 N code = CO2) ANION GAP (test code 7 0-20 N = GAP) GLUCOSE (test code = 117 mg/dL 77-141 NOTE: N EW NORMAL RANGE GLU) BLOOD UREA NITROGEN 36 mg/dL 7-25 H NOTE: NE W NORMAL RANGE (test code = BUN) GLOMERULAR 38.8 70-80 L The Glomerular FILTRATION RATE Filtration R ate is a (test code = GFR) calculated parameterbased on serum Creatinine, pat ient age and sex. GFR va luesless than 60 mL/min/ 1.73 square meters a re indicative ofCh ronic Kidney Disease. Values less than 15 mL/min/1.73squa re meters indicate Kidney failure. The calculation forGFR is based on the CKD-EPI (2020) calculat ion. This formulais race indifferent and is the recommended for roxana for GFRby the [facility] Kidney Foundati on for Adults.The GFR will not calculate if th e sex is unknown or if thepatient's ag e is <18 years. CREATININE (test 1.4 mg/dL 0.6-1.3 H code = CREAT) CALCIUM (test code = 8.2 mg/dL 8.0-10.5 N CA) [id number] 04:53:00 Test Item Value Reference Range Interpretation Comments MAGNESIUM (test code = 2.19 mg/dL 1.6-2.6 N NOTE: NEW NORMAL MAG) RANGE CBC W/AUTO [id number] 04:43:00 Test Item Value Reference Range Interpretation Comments WHITE BLOOD CELL (test code = 10.5 x10 3/uL 4.5-11.0 N WBC) RED BLOOD CELL (test code = 2.64 x10 6/uL 3.54-5.02 L RBC) HEMOGLOBIN (test code = HGB) 8.1 g/dL 11.0-15.0 L HEMATOCRIT (test code = HCT) 24.7 % 33.0-45.0 L MEAN CELL VOLUME (test code = 93.6 fL 81.0-99.0 N MCV) MEAN CELL HGB (test code = MCH) 30.7 pg 27.0-33.0 N MEAN CELL HGB CONCETRATION 32.8 g/dL 33.0-37.0 L (test code = MCHC) RED CELL DISTRIBUTION WIDTH CV 15.8 % 11.5-14.5 H (test code = RDW) RED CELL DISTRIBUTION WIDTH SD 53.4 fL 37.0-54.0 N (test code = RDW-SD) PLATELET COUNT (test code = 182 x10 3/uL 150-400 PLT) MEAN PLATELET VOLUME (test code 10.6 fL 7.0-9.0 H = MPV) NEUTROPHIL % (test code = NT%) 81.9 % 56.0-77.0 H IMMATURE GRANULOCYTE % (test 0.6 % 0.0-2.0 N code = IG%) LYMPHOCYTE % (test code = LY%) 4.3 % 14.0-32.0 L MONOCYTE % (test code = MO%) 10.8 % 4.8-9.0 H EOSINOPHIL % (test code = EO%) 2.1 % 0.3-3.7 N BASOPHIL % (test code = BA%) 0.3 % 0.0-2.0 N NUCLEATED RBC % (test code = 0.0 % 0-0 N NRBC%) NEUTROPHIL # (test code = NT#) 8.60 x10 3/uL 2.0-7.6 H IMMATURE GRANULOCYTE # (test 0.06 x10 3/uL 0.00-0.03 H code = IG#) LYMPHOCYTE # (test code = LY#) 0.45 x10 3/uL 1.0-3.8 L MONOCYTE # (test code = MO#) 1.13 x10 3/uL 0.1-0.8 H EOSINOPHIL # (test code = EO#) 0.22 x10 3/uL 0.0-0.2 H BASOPHIL # (test code = BA#) 0.03 x10 3/uL 0.0-0.2 N NUCLEATED RBC # (test code = 0.00 x10 3/uL 0.0-0.1 N NRBC#) MANUAL DIFF REQUIRED (test code NO = MDIFF) POC ARTERIAL BLOOD [id number] 04:25:00 Test Item Value Reference Range Interpretation Comments POC ARTERIAL BLOOD GAS PH (test 7.541 7.35-7.45 HH code = POCPHA) POC ARTERIAL BLOOD GAS PCO2 36.7 mmHg 35.0-45 N (test code = SHTERC6H) POC TCO2 ARTERIAL (test code = 32.8 POCTCO2) POC ARTERIAL BLOOD GAS PO2 (test 65.2 mmHg 80-100.0 L code = MRQGM1F) POC HCO3 ARTERIAL (test code = 31.6 MMOL/L 22.0-26.0 HH [id number]) POC BASE EXCESS (test code = 8.9 MMOL/L -4.0-4.0 H POCBEA) POC O2 SATURATION (test code = 95.3 % 90-100 N POCO2S) FIO2 (test code = FIO2A) 28.0 % PaO2/FiO2 (test code = [id number]) 232.80 mm/Hg ABG DELIVERY (test code = PHILLIP) Cannula ABG TEMPERATURE (test code = 97.5 F TEMPA) ABG SITE (test code = SITEA) L Brach RAKESH'S TEST (test code = Positive ALLENS) GLUCOSE [id number] 20:50:00 Test Item Value Reference Range Interpretation Comments GLUCOSE BEDSIDE (test 121 MG/DL 70-110 H Perfor med by certified code = GLUBED) 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[facility] [id number] 15:18:00 Test Item Value Reference Interpretation Comments Range SURGICAL (test code = SR) RUN DATE: 06/27/23 [place] - LAB PAGE 1 RUN TIME: 1518 Specimen Inquiry RUN USER: INTERFACE PATIENT: BREA ZULUAGA LOC: BATSHEVA Martinez #: [id number] AGE/SX: 77/F ROOM: [facility] RE06/13/23REG DR: Kaia Nolan MD : 45 BED: 1 DIS: STATUS: ADM IN TLOC: SPEC #: [id number] RECD: 06/24/23 STATUS: MARTITA CRENSHAW #: [id number] JORGE: 06/23/23- SUBM DR: Lucio Liang MD ENTERED: 06/24/23 SP TYPE: SURGICAL OTHR DR: No Primary or Family Physician Self Referred Lyubov Campbell MD, Aisha MD Chaugle, Abdul Hannan MD Gupta, Kalpana J MD Hammoudeh, Fadi MDORDERED: 59712, ANATOMIC SPEC COPIES TO: No Primary or Family Physician Self Referred Lyubov Campbell MD [address] [place] [address] Usha Berrios MD [address] [place] [address] Lucio Liang MD [address] [facility]. [address] [place] [address] Shahnaz Miller MD [address] [place] [address] Dallas Hinds MD [address] [place] [address] PROCEDURES: [id number] (06/24/23) TISSUES: A. ATRIUM - LEFT ATRIAL APPENDAGE CONTINUED ON NEXT PAGE RUN DATE: 06/27/23 [place] - LAB PAGE 2 RUN TIME: 1518 Specimen Inquiry RUN USER: INTERFACE SPEC #: [id number] PATIENT: BREA ZULUAGA #[id number] (Continued) - CLINICAL HISTORY SAME FINAL DIAGNOSIS LEFT ATRIAL APPENDAGE, CABG: - Tissue segment consistent with atrial appendage, showing degenerative changes GROSS DESCRIPTION Received in formalin labeled left atrial appendage is a 3 x 1 x 0.8 cm portion of musculartissue with attached adipose (A). Technical component performed at [address], [place] [address] Unless gross only, the diagnosis is based upon microscopic examination.Immunohistochemistry: This test was developed and its performance characteristicsdetermined by this laboratory. It has not been approved nor does it need approvalby the [place] FDA. Appropriate positive and negative controls are reviewed and judgedto be acceptable for performedimmunohistochemistry and/or special stains. This laboratoryis certified under the Clinical Laboratory Improvement Amendments (CLIA-88) as qualified toperform high complex clinical laboratory testing. CLINICAL INFORMATION CAD Signed SIGNATURE ON FILE Jessica Gaines 06/27/23 1518 END OF REPORT BASIC METABOLIC [id number] 12:55:00 Test Item Value Reference Range Interpretation Comments SODIUM (test code = 132 mEq/L 134-147 L NA) POTASSIUM (test code 4.3 mEq/L 3.4-5.0 = K) CHLORIDE (test code 98 mEq/L 100-108 L = CL) CARBON DIOXIDE (test 31 mEq/l 21-33 N code = CO2) ANION GAP (test code 7 0-20 N = GAP) GLUCOSE (test code = 226 mg/dL 77-141 H NOTE: N EW NORMAL RANGE GLU) BLOOD UREA NITROGEN 44 mg/dL 7-25 H NOTE: NE W NORMAL RANGE (test code = BUN) GLOMERULAR 33.0 70-80 L The Glomerular FILTRATION RATE Filtration R ate is a (test code = GFR) calculated parameterbased on serum Creatinine, pat ient age and sex. GFR va luesless than 60 mL/min/ 1.73 square meters a re indicative ofCh ronic Kidney Disease. Values less than 15 mL/min/1.73squa re meters indicate Kidney failure. The calculation forGFR is based on the CKD-EPI (2020) calculat ion. This formulais race indifferent and is the recommended for roxana for GFRby the Natio nal Kidney Foundati on for Adults.The GFR will not calculate if th e sex is unknown or if thepatient's ag e is <18 years. CREATININE (test 1.6 mg/dL 0.6-1.3 H code = CREAT) CALCIUM (test code = 8.2 mg/dL 8.0-10.5 N CA) - XR CHEST 1 [id number] 10:48:00 [facility] 1945 Sex: F FAX: Shahnaz Miller MD [phone] Moore: St: ADM FAX: Kaia Nolan MD FAX: Ofelia Dean y [phone] Name: BREA ZULUAGA [facility] : 1945 Age/S: 77/F [address] [place] [address] Unit #: [id number] Loc: .[address] [place] [address] Phys: Estee Jordan Physic Acct: [id number] Dis Date: Status: ADM IN PHONE #: [phone] Exam Date: 06/27/2023 1032 FAX #: [phone] Reason: Cardiac Surgery Post Op EXAMS: CPT CODE: [id number] XR CHEST 1 V 05384 HISTORY: Cardiac surgery, postop Location: C3 COMPARISON:06/26/2023 FINDINGS: There is cardiomegaly with vascular congestion. 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 Right IJ catheter is again noted. Perihilar and basilar opacities are present slightly improved compared to prior study. No pneumothorax. No other changes. IMPRESSION:1. Cardiomegaly with perihilar and basilar opacities mildly improved compared to prior study. at 1048 Reported and signed by: Alf Franco M.D. CC: Shahnaz Miller MD; Kaia Nolan MD; Estee Jordan Technologist: YEISON Nix) Trnscrd Date/Time/By: 06/27/2023 (2080) : By: [email or web address] Orig Print D/T: S: 06/27/2023 (1061) PAGE 1 Signed Report- DUP VEIN [id number] 08:54:00 [facility] : 1945 Sex: F Name: BREA RODRIGUEZ [facility] : 1945 Age/S: 77 / F [address] [place] [address] Unit #: [id number] Loc: [place] [address] Phys: Lucio Liang MD Acct: [id number] Dis Date: Status: ADM IN PHONE #: [phone] Exam Date: 06/27/2023 0704 FAX #: [phone] Reason: R/O DVT EXAMS: CPT CODE: [id number] DUP VEIN BRADLEY [id number] EXAM: - DUP VEIN BRADLEY HISTORY: R/O DVT LOCATION CODE:H106 COMPARISON: None TECHNIQUE: Hendrix-scale B-mode imaging, color doppler interrogation and spectral doppler waveform analysis of the bilateral common femoral, profunda femoral, superficial femoral and popliteal veins was performed. The bilateral posterior tibial, anterior tibial and peroneal veins were interrogated as well. FINDINGS: There is compressibility and spontaneous phasic flow in all of the imaged veins. IMPRESSION: No Doppler evidence of bilateral lower extremity DVT. at 0854 Reported and signed by: Sole Brown M.D. CC: Lucio Liang MD; Shahnaz Miller MD; Kaia Nolan MD Technologist: [facility] Date/Time: 06/27/2023 (0854) [email or web address] Orig Print D/T: S: 06/27/2023 (0857) Probe: PAGE 1 Signed ReportUN[facility] ART[facility] BLOOD [id number] 08:52:00 Test Item Value Reference Range Interpretation Comments POC ARTERIAL BLOOD GAS PH (test 7.530 7.35-7.45 HH code = POCPHA) POC ARTERIAL BLOOD GAS PCO2 35.6 mmHg 35.0-45 N (test code = [id number]) POC TCO2 ARTERIAL (test code = 30.9 POCTCO2) POC ARTERIAL BLOOD GAS PO2 (test 81.8 mmHg 80-100.0 N code = OCLAI2E) POC HCO3 ARTERIAL (test code = 29.8 MMOL/L 22.0-26.0 HH [id number]) POC BASE EXCESS (test code = 7.0 MMOL/L -4.0-4.0 H POCBEA) POC O2 SATURATION (test code = 97.3 % 90-100 N POCO2S) FIO2 (test code = FIO2A) 28.0 % PaO2/FiO2 (test code = [id number]) 292.10 mm/Hg ABG DELIVERY (test code = PHILLIP) HFNC ABG TEMPERATURE (test code = 98 F TEMPA) ABG SITE (test code = SITEA) R Radial RAKESH'S TEST (test code = Positive ALLENS) BASIC METABOLIC [id number] 08:52:00 Test Item Value Reference Range Interpretation Comments SODIUM (test code = NA/ABG) 133 mmol/L 134-147 L POTASSIUM (test code = K/ABG) 3.8 mmol/L 3.4-5.0 N CHLORIDE (test code = CL/ABG) 96 mmol/L 100-108 L CREATININE ABG (test code = 1.6 mg/dL 0.6-1.0 H CREAABG) POC IONIZED CALCIUM (test code = 1.18 MMOL/L 1.12-1.32 N POCCA) POC GLUCOSE (test code = POCGLU) 153 MG/DL 70-110 H HEMOGLOBIN [id number] 08:52:00 Test Item Value Reference Range Interpretation Comments HEMOGLOBIN ABG (test code = HGB/ABG) 8.5 G/DL 11.0-15.0 L [id number] 08:52:00 Test Item Value Reference Range Interpretation Comments HEMATOCRIT (test code = HCT/ABG) 25 % 33.0-45.0 L POC LACTIC [id number] 08:52:00 Test Item Value Reference Range Interpretation Comments POC LACTIC ACID (test code = 0.6 mmol/l 0.9-1.7 L POCLAC) CBC W/AUTO [id number] 02:58:00 Test Item Value Reference Range Interpretation Comments WHITE BLOOD CELL (test code = 10.9 x10 3/uL 4.5-11.0 WBC) RED BLOOD CELL (test code = 2.59 x10 6/uL 3.54-5.02 L RBC) HEMOGLOBIN (test code = HGB) 7.7 g/dL 11.0-15.0 L HEMATOCRIT (test code = HCT) 24.0 % 33.0-45.0 L MEAN CELL VOLUME (test code = 92.7 fL 81.0-99.0 N MCV) MEAN CELL HGB (test code = MCH) 29.7 pg 27.0-33.0 N MEAN CELL HGB CONCETRATION 32.1 g/dL 33.0-37.0 L (test code = MCHC) RED CELL DISTRIBUTION WIDTH CV 15.7 % 11.5-14.5 H (test code = RDW) RED CELL DISTRIBUTION WIDTH SD 52.9 fL 37.0-54.0 N (test code = RDW-SD) PLATELET COUNT (test code = 121 x10 3/uL 150-400 L PLT) MEAN PLATELET VOLUME (test code 10.8 fL 7.0-9.0 H = MPV) NEUTROPHIL % (test code = NT%) 85.6 % 56.0-77.0 H IMMATURE GRANULOCYTE % (test 0.5 % 0.0-2.0 N code = IG%) LYMPHOCYTE % (test code = LY%) 5.4 % 14.0-32.0 L MONOCYTE % (test code = MO%) 8.1 % 4.8-9.0 N EOSINOPHIL % (test code = EO%) 0.4 % 0.3-3.7 N BASOPHIL % (test code = BA%) 0.0 % 0.0-2.0 N NUCLEATED RBC % (test code = 0.0 % 0-0 N NRBC%) NEUTROPHIL # (test code = NT#) 9.35 x10 3/uL 2.0-7.6 H IMMATURE GRANULOCYTE # (test 0.06 x10 3/uL 0.00-0.03 H code = IG#) LYMPHOCYTE # (test code = LY#) 0.59 x10 3/uL 1.0-3.8 L MONOCYTE # (test code = MO#) 0.88 x10 3/uL 0.1-0.8 H EOSINOPHIL # (test code = EO#) 0.04 x10 3/uL 0.0-0.2 N BASOPHIL # (test code = BA#) 0.00 x10 3/uL 0.0-0.2 N NUCLEATED RBC # (test code = 0.00 x10 3/uL 0.0-0.1 N NRBC#) MANUAL DIFF REQUIRED (test code NO = MDIFF) BASIC METABOLIC [id number] 02:54:00 Test Item Value Reference Range Interpretation Comments SODIUM (test code = 136 mEq/L 134-147 N NA) POTASSIUM (test code 3.5 mEq/L 3.4-5.0 N = K) CHLORIDE (test code 99 mEq/L 100-108 L = CL) CARBON DIOXIDE (test 32 mEq/l 21-33 N code = CO2) ANION GAP (test code 9 0-20 N = GAP) GLUCOSE (test code = 125 mg/dL 77-141 N NOTE: N EW NORMAL RANGE GLU) BLOOD UREA NITROGEN 45 mg/dL 7-25 H NOTE: NE W NORMAL RANGE (test code = BUN) GLOMERULAR 33.0 70-80 L The Glomerular FILTRATION RATE Filtration R ate is a (test code = GFR) calculated parameterbased on serum Creatinine, pat ient age and sex. GFR va luesless than 60 mL/min/ 1.73 square meters a re indicative ofCh ronic Kidney Disease. Values less than 15 mL/min/1.73squa re meters indicate Kidney failure. The calculation forGFR is based on the CKD-EPI (202) calculat ion. This formulais race indifferent and is the recommended for roxana for GFRby the Natio nal Kidney Foundati on for Adults.The GFR will not calculate if th e sex is unknown or if thepatient's ag e is <18 years. CREATININE (test 1.6 mg/dL 0.6-1.3 H code = CREAT) CALCIUM (test code = 8.2 mg/dL 8.0-10.5 N CA) [id number] 02:54:00 Test Item Value Reference Range Interpretation Comments MAGNESIUM (test code = 2.27 mg/dL 1.6-2.6 N NOTE: NEW NORMAL MAG) RANGE BASIC METABOLIC [id number] 19:57:00 Test Item Value Reference Range Interpretation Comments SODIUM (test code = 134 mEq/L 134-147 N NA) POTASSIUM (test code 3.6 mEq/L 3.4-5.0 N = K) CHLORIDE (test code 100 mEq/L 100-108 N = CL) CARBON DIOXIDE (test 30 mEq/l 21-33 N code = CO2) ANION GAP (test code 8 0-20 N = GAP) GLUCOSE (test code = 123 mg/dL 77-141 NOTE: N EW NORMAL RANGE GLU) BLOOD UREA NITROGEN 45 mg/dL 7-25 H NOTE: NE W NORMAL RANGE (test code = BUN) GLOMERULAR 30.7 70-80 L The Glomerular FILTRATION RATE Filtration R ate is a (test code = GFR) calculated parameterbased on serum Creatinine, pat ient age and sex. GFR va luesless than 60 mL/min/ 1.73 square meters a re indicative ofCh ronic Kidney Disease. Values less than 15 mL/min/1.73squa re meters indicate Kidney failure. The calculation forGFR is based on the CKD-EPI (202) calculat ion. This formulais race indifferent and is the recommended for roxana for GFRby the Natio nal Kidney Foundati on for Adults.The GFR will not calculate if th e sex is unknown or if thepatient's ag e is <18 years. CREATININE (test 1.7 mg/dL 0.6-1.3 H code = CREAT) CALCIUM (test code = 8.2 mg/dL 8.0-10.5 N CA) [id number] 19:57:00 Test Item Value Reference Range Interpretation Comments MAGNESIUM (test code = 2.17 mg/dL 1.6-2.6 N NOTE: NEW NORMAL MAG) RANGE GLUCOSE [id number] 18:16:00 Test Item Value Reference Range Interpretation Comments GLUCOSE BEDSIDE (test 149 MG/DL 70-110 H Perfor med by certified code = GLUBED) 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[facility] GLUCOSE [id number] 16:36:00 Test Item Value Reference Range Interpretation Comments GLUCOSE BEDSIDE (test 133 MG/DL 70-110 H Perfor med by certified code = GLUBED) 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[facility] BASIC METABOLIC [id number] 14:45:00 Test Item Value Reference Range Interpretation Comments SODIUM (test code = 132 mEq/L 134-147 L NA) POTASSIUM (test code 3.8 mEq/L 3.4-5.0 N = K) CHLORIDE (test code 97 mEq/L 100-108 L = CL) CARBON DIOXIDE (test 26 mEq/l 21-33 N code = CO2) ANION GAP (test code 13 0-20 N = GAP) GLUCOSE (test code = 210 mg/dL 77-141 H NOTE: N EW NORMAL RANGE GLU) BLOOD UREA NITROGEN 45 mg/dL 7-25 H NOTE: NE W NORMAL RANGE (test code = BUN) GLOMERULAR 26.9 70-80 L The Glomerular FILTRATION RATE Filtration R ate is a (test code = GFR) calculated parameterbased on serum Creatinine, pat ient age and sex. GFR va luesless than 60 mL/min/ 1.73 square meters a re indicative ofCh ronic Kidney Disease. Values less than 15 mL/min/1.73squa re meters indicate Kidney failure. The calculation forGFR is based on the CKD-EPI (2020) calculat ion. This formulais race indifferent and is the recommended for roxana for GFRby the [facility] Kidney Foundati on for Adults.The GFR will not calculate if th e sex is unknown or if thepatient's ag e is <18 years. CREATININE (test 1.9 mg/dL 0.6-1.3 H code = CREAT) CALCIUM (test code = 8.2 mg/dL 8.0-10.5 N CA) [id number] 14:45:00 Test Item Value Reference Range Interpretation Comments MAGNESIUM (test code = 2.18 mg/dL 1.6-2.6 N NOTE: NEW NORMAL MAG) RANGE GLUCOSE [id number] 10:56:00 Test Item Value Reference Range Interpretation Comments GLUCOSE BEDSIDE (test 90 MG/DL 70-110 N [facility] med by certified code = GLUBED) 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[facility] GLUCOSE [id number] 08:34:00 Test Item Value Reference Range Interpretation Comments GLUCOSE BEDSIDE (test 94 MG/DL 70-110 N [facility] med by certified code = GLUBED) 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[facility] - XR CHEST 1 [id number] 08:08:00 [facility] 1945 Sex: F FAX: Shahnaz Miller MD [phone] Moore: St: [facility] FAX: Kaia Nolan MD FAX: Ofelia Dean Phy [phone] Name: BREA ZULUAGA [facility] : 1945 Age/S: 77/F [address] [place] [address] Bl Unit #: [id number] Loc: G.2616 [place] [address] Phys: Estee Jordan Acct: [id number] Dis Date: Status: ADM IN PHONE #: [phone] Exam Date: 06/26/2023802 FAX #: [phone] Reason: Cardiac Surgery Post Op EXAMS: CPT CODE: [id number] XR CHEST 1 V 10574 EXAM: - XR CHEST 1 V Location code:C3 HISTORY: Cardiac Surgery Post Op COMPARISON: 06/25/2023 IMPRESSION: Single AP view of the chest is provided. Support lines and tubes are unchanged. Bilateral pulmonary opacities are similar. There is no pneumothorax. No additional interval change. at 0808 Reported and signed by: Franky Mckeon M.D. CC: Shahnaz Miller MD; Kaia Nolan MD; Estee Jordan Technologist: RT Sammie(Maddison) Trnscrd Date/Time/By: 06/26/2023 (807) : By: [email or web address] Orig Print D/T: S: 06/26/2023 (810) PAGE 1 Signed ReportGLUCOSE [id number] 06:09:00 Test Item Value Reference Range Interpretation Comments GLUCOSE BEDSIDE (test 96 MG/DL 70-110 N Perfor med by certified code = GLUBED) 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[facility] GLUCOSE [id number] 04:27:00 Test Item Value Reference Range Interpretation Comments GLUCOSE BEDSIDE (test 88 MG/DL 70-110 N Perfor med by certified code = GLUBED) 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[facility] BASIC METABOLIC [id number] 03:02:00 Test Item Value Reference Range Interpretation Comments SODIUM (test code = 132 mEq/L 134-147 L NA) POTASSIUM (test code 4.1 mEq/L 3.4-5.0 N = K) CHLORIDE (test code 99 mEq/L 100-108 L = CL) CARBON DIOXIDE (test 28 mEq/l 21-33 N code = CO2) ANION GAP (test code 9 0-20 N = GAP) GLUCOSE (test code = 118 mg/dL 77-141 N NOTE: N EW NORMAL RANGE GLU) BLOOD UREA NITROGEN 49 mg/dL 7-25 H NOTE: NE W NORMAL RANGE (test code = BUN) GLOMERULAR 23.8 70-80 L The Glomerular FILTRATION RATE Filtration R ate is a (test code = GFR) calculated parameterbased on serum Creatinine, pat ient age and sex. GFR va luesless than 60 mL/min/ 1.73 square meters a re indicative ofCh ronic Kidney Disease. Values less than 15 mL/min/1.73squa re meters indicate Kidney failure. The calculation forGFR is based on the CKD-EPI (2020) calculat ion. This formulais race indifferent and is the recommended for roxana for GFRby the [facility] Kidney Foundati on for Adults.The GFR will not calculate if th e sex is unknown or if thepatient's ag e is <18 years. CREATININE (test 2.1 mg/dL 0.6-1.3 H code = CREAT) CALCIUM (test code = 8.5 mg/dL 8.0-10.5 N CA) COMMENTS: POD #1HEPATIC FUNCTION [id number] 03:02:00 Test Item Value Reference Range Interpretation Comments TOTAL PROTEIN (test 4.8 g/dL 6.4-8.2 L code = PROT) ALBUMIN (test code = 3.10 g/dL 3.4-5.0 L ALB) BILIRUBIN TOTAL (test 0.40 mg/dL 0.0-1.0 code = BILT) BILIRUBIN DIRECT (test 0.20 MG/DL 0.1-0.3 N NOTE: NEW NORMAL code = BILD) RANGE BILIRUBIN INDIRECT 0.20 MG/DL (test code = BILIND) SGOT/AST (test code = 35 IUnit/L 8-34 H NOTE: NEW NORMAL AST) RANGE SGPT/ALT (test code = 21 IUnit/L 10-49 N NOTE: NEW NORMAL ALT) RANGE ALKALINE PHOSPHATASE 53 IUnit/L 20-125 N TOTAL (test code = ALKP) COMMENTS: POD #[id number] 03:02:00 Test Item Value Reference Range Interpretation Comments MAGNESIUM (test code = 2.47 mg/dL 1.6-2.6 N NOTE: NEW NORMAL MAG) RANGE COMMENTS: POD #1GLUCOSE [id number] 02:45:00 Test Item Value Reference Range Interpretation Comments GLUCOSE BEDSIDE (test 121 MG/DL 70-110 H Perfor med by certified code = GLUBED) 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[facility] CBC W/AUTO [id number] 02:45:00 Test Item Value Reference Range Interpretation Comments WHITE BLOOD CELL (test code = 18.4 x10 3/uL 4.5-11.0 H WBC) RED BLOOD CELL (test code = 2.94 x10 6/uL 3.54-5.02 L RBC) HEMOGLOBIN (test code = HGB) 8.8 g/dL 11.0-15.0 L HEMATOCRIT (test code = HCT) 27.4 % 33.0-45.0 L MEAN CELL VOLUME (test code = 93.2 fL 81.0-99.0 N MCV) MEAN CELL HGB (test code = 29.9 pg 27.0-33.0 N MCH) MEAN CELL HGB CONCETRATION 32.1 g/dL 33.0-37.0 L (test code = MCHC) RED CELL DISTRIBUTION WIDTH CV 16.2 % 11.5-14.5 H (test code = RDW) RED CELL DISTRIBUTION WIDTH SD 55.4 fL 37.0-54.0 H (test code = RDW-SD) PLATELET COUNT (test code = 149 x10 3/uL 150-400 L PLT) MEAN PLATELET VOLUME (test 10.5 fL 7.0-9.0 H code = MPV) NEUTROPHIL % (test code = NT%) 84.4 % 56.0-77.0 H IMMATURE GRANULOCYTE % (test 0.8 % 0.0-2.0 N code = IG%) LYMPHOCYTE % (test code = LY%) 5.1 % 14.0-32.0 L MONOCYTE % (test code = MO%) 9.4 % 4.8-9.0 H EOSINOPHIL % (test code = EO%) 0.1 % 0.3-3.7 L BASOPHIL % (test code = BA%) 0.2 % 0.0-2.0 N NUCLEATED RBC % (test code = 0.0 % 0-0 N NRBC%) NEUTROPHIL # (test code = NT#) 15.56 x10 3/uL 2.0-7.6 H IMMATURE GRANULOCYTE # (test 0.14 x10 3/uL 0.00-0.03 H code = IG#) LYMPHOCYTE # (test code = LY#) 0.93 x10 3/uL 1.0-3.8 L MONOCYTE # (test code = MO#) 1.73 x10 3/uL 0.1-0.8 H EOSINOPHIL # (test code = EO#) 0.01 x10 3/uL 0.0-0.2 N BASOPHIL # (test code = BA#) 0.03 x10 3/uL 0.0-0.2 N NUCLEATED RBC # (test code = 0.00 x10 3/uL 0.0-0.1 N NRBC#) MANUAL DIFF REQUIRED (test NO code = MDIFF) GLUCOSE [id number] 01:14:00 Test Item Value Reference Range Interpretation Comments GLUCOSE BEDSIDE (test 119 MG/DL 70-110 H Perfor med by certified code = GLUBED) 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[facility] GLUCOSE [id number] 23:45:00 Test Item Value Reference Range Interpretation Comments GLUCOSE BEDSIDE (test 123 MG/DL 70-110 H Perfor med by certified code = GLUBED) 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[facility] BASIC METABOLIC [id number] 22:35:00 Test Item Value Reference Range Interpretation Comments SODIUM (test code = 132 mEq/L 134-147 L NA) POTASSIUM (test code 4.4 mEq/L 3.4-5.0 N = K) CHLORIDE (test code 100 mEq/L 100-108 N = CL) CARBON DIOXIDE (test 26 mEq/l 21-33 code = CO2) ANION GAP (test code 10 0-20 N = GAP) GLUCOSE (test code = 142 mg/dL 77-141 H NOTE: N EW NORMAL RANGE GLU) BLOOD UREA NITROGEN 49 mg/dL 7-25 H NOTE: NE W NORMAL RANGE (test code = BUN) GLOMERULAR 22.5 70-80 L The Glomerular FILTRATION RATE Filtration R ate is a (test code = GFR) calculated parameterbased on serum Creatinine, pat ient age and sex. GFR va luesless than 60 mL/min/ 1.73 square meters a re indicative ofCh ronic Kidney Disease. Values less than 15 mL/min/1.73squa re meters indicate Kidney failure. The calculation forGFR is based on the CKD-EPI (2020) calculat ion. This formulais race indifferent and is the recommended for roxana for GFRby the [facility] Kidney Foundati on for Adults.The GFR will not calculate if th e sex is unknown or if thepatient's ag e is <18 years. CREATININE (test 2.2 mg/dL 0.6-1.3 H code = CREAT) CALCIUM (test code = 8.7 mg/dL 8.0-10.5 N CA) [id number] 22:35:00 Test Item Value Reference Range Interpretation Comments MAGNESIUM (test code = 2.54 mg/dL 1.6-2.6 N NOTE: NEW NORMAL MAG) RANGE GLUCOSE [id number] 22:23:00 Test Item Value Reference Range Interpretation Comments GLUCOSE BEDSIDE (test 144 MG/DL 70-110 H Perfor med by certified code = GLUBED) 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[facility] CBC W/AUTO [id number] 22:22:00 Test Item Value Reference Range Interpretation Comments WHITE BLOOD CELL (test code = 20.4 x10 3/uL 4.5-11.0 H WBC) RED BLOOD CELL (test code = 2.98 x10 6/uL 3.54-5.02 L RBC) HEMOGLOBIN (test code = HGB) 8.9 g/dL 11.0-15.0 L HEMATOCRIT (test code = HCT) 27.9 % 33.0-45.0 L MEAN CELL VOLUME (test code = 93.6 fL 81.0-99.0 MCV) MEAN CELL HGB (test code = 29.9 pg 27.0-33.0 N MCH) MEAN CELL HGB CONCETRATION 31.9 g/dL 33.0-37.0 L (test code = MCHC) RED CELL DISTRIBUTION WIDTH CV 15.7 % 11.5-14.5 H (test code = RDW) RED CELL DISTRIBUTION WIDTH SD 54.2 fL 37.0-54.0 H (test code = RDW-SD) PLATELET COUNT (test code = 151 x10 3/uL 150-400 N PLT) MEAN PLATELET VOLUME (test 10.4 fL 7.0-9.0 H code = MPV) NEUTROPHIL % (test code = NT%) 85.4 % 56.0-77.0 H IMMATURE GRANULOCYTE % (test 0.6 % 0.0-2.0 N code = IG%) LYMPHOCYTE % (test code = LY%) 4.7 % 14.0-32.0 L MONOCYTE % (test code = MO%) 9.2 % 4.8-9.0 H EOSINOPHIL % (test code = EO%) 0.0 % 0.3-3.7 L BASOPHIL % (test code = BA%) 0.1 % 0.0-2.0 N NUCLEATED RBC % (test code = 0.0 % 0-0 N NRBC%) NEUTROPHIL # (test code = NT#) 17.41 x10 3/uL 2.0-7.6 H IMMATURE GRANULOCYTE # (test 0.12 x10 3/uL 0.00-0.03 H code = IG#) LYMPHOCYTE # (test code = LY#) 0.96 x10 3/uL 1.0-3.8 L MONOCYTE # (test code = MO#) 1.88 x10 3/uL 0.1-0.8 H EOSINOPHIL # (test code = EO#) 0.00 x10 3/uL 0.0-0.2 N BASOPHIL # (test code = BA#) 0.03 x10 3/uL 0.0-0.2 N NUCLEATED RBC # (test code = 0.00 x10 3/uL 0.0-0.1 N NRBC#) MANUAL DIFF REQUIRED (test NO code = MDIFF) GLUCOSE [id number] 21:23:00 Test Item Value Reference Range Interpretation Comments GLUCOSE BEDSIDE (test 128 MG/DL 70-110 H Perfor med by certified code = GLUBED) 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[facility] GLUCOSE [id number] 20:09:00 Test Item Value Reference Range Interpretation Comments GLUCOSE BEDSIDE (test 132 MG/DL 70-110 H Perfor med by certified code = GLUBED) 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[facility] GLUCOSE [id number] 16:51:00 Test Item Value Reference Range Interpretation Comments GLUCOSE BEDSIDE (test 151 MG/DL 70-110 H Perfor med by certified code = GLUBED) 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[facility] GLUCOSE [id number] 14:27:00 Test Item Value Reference Range Interpretation Comments GLUCOSE BEDSIDE (test 159 MG/DL 70-110 H Perfor med by certified code = GLUBED) 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[facility] [facility] W/AUTO [id number] 13:27:00 Test Item Value Reference Range Interpretation Comments WHITE BLOOD CELL 30.3 x10 3/uL 4.5-11.0 H (test code = WBC) RED BLOOD CELL (test 2.26 x10 6/uL 3.54-5.02 L code = RBC) HEMOGLOBIN (test code 6.8 g/dL 11.0-15.0 L = HGB) HEMATOCRIT (test code 23.4 % 33.0-45.0 L = HCT) MEAN CELL VOLUME 103.5 fL 81.0-99.0 H (test code = MCV) MEAN CELL HGB (test 30.1 pg 27.0-33.0 N code = MCH) MEAN CELL HGB 29.1 g/dL 33.0-37.0 L CONCETRATION (test code = MCHC) RED CELL DISTRIBUTION 15.1 % 11.5-14.5 H WIDTH CV (test code = RDW) RED CELL DISTRIBUTION 57.2 fL 37.0-54.0 H WIDTH SD (test code = RDW-SD) PLATELET COUNT (test 245 x10 3/uL 150-400 N code = PLT) MEAN PLATELET VOLUME 10.8 fL 7.0-9.0 H (test code = MPV) NEUTROPHIL % (test 82.3 % 56.0-77.0 H code = NT%) LYMPHOCYTE % (test 6.5 % 14.0-32.0 L code = LY%) NEUTROPHIL # (test 24.92 x10 3/uL 2.0-7.6 H code = NT#) LYMPHOCYTE # (test 1.98 x10 3/uL 1.0-3.8 N code = LY#) MANUAL DIFF REQUIRED NO SLIDE R SRIDEVID, (test code = MDIFF) CONSISTE NT WITH AUTO DIFF. IMMATURE GRANULOCYTE 1.6 % 0.0-2.0 N % (test code = IG%) MONOCYTE % (test code 9.2 % 4.8-9.0 H = MO%) EOSINOPHIL % (test 0.1 % 0.3-3.7 L code = EO%) BASOPHIL % (test code 0.3 % 0.0-2.0 N = BA%) NUCLEATED RBC % (test 0.0 % 0-0 N code = NRBC%) IMMATURE GRANULOCYTE 0.48 x10 3/uL 0.00-0.03 H # (test code = IG#) MONOCYTE # (test code 2.77 x10 3/uL 0.1-0.8 H = MO#) EOSINOPHIL # (test 0.03 x10 3/uL 0.0-0.2 N code = EO#) BASOPHIL # (test code 0.08 x10 3/uL 0.0-0.2 N = BA#) NUCLEATED RBC # (test 0.00 x10 3/uL 0.0-0.1 N code = NRBC#) GLUCOSE [id number] 11:51:00 Test Item Value Reference Range Interpretation Comments GLUCOSE BEDSIDE (test 171 MG/DL 70-110 H Perfor med by certified code = GLUBED) 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[facility] BASIC METABOLIC [id number] 11:32:00 Test Item Value Reference Range Interpretation Comments SODIUM (test code = 136 mEq/L 134-147 N NA) POTASSIUM (test code 5.1 mEq/L 3.4-5.0 H = K) CHLORIDE (test code 103 mEq/L 100-108 N = CL) CARBON DIOXIDE (test 18 mEq/l 21-33 L code = CO2) ANION GAP (test code 20 0-20 N = GAP) GLUCOSE (test code = 264 mg/dL 77-141 H NOTE: N EW NORMAL RANGE GLU) BLOOD UREA NITROGEN 45 mg/dL 7-25 H NOTE: NE W NORMAL RANGE (test code = BUN) GLOMERULAR 20.3 70-80 L The Glomerular FILTRATION RATE Filtration R ate is a (test code = GFR) calculated parameterbased on serum Creatinine, pat ient age and sex. GFR va luesless than 60 mL/min/ 1.73 square meters a re indicative ofCh ronic Kidney Disease. Values less than 15 mL/min/1.73squa re meters indicate Kidney failure. The calculation forGFR is based on the CKD-EPI (2020) calculat ion. This formulais race indifferent and is the recommended for roxana for GFRby the Natio nal Kidney Foundati on for Adults.The GFR will not calculate if th e sex is unknown or if thepatient's ag e is <18 years. CREATININE (test 2.4 mg/dL 0.6-1.3 H code = CREAT) CALCIUM (test code = 8.9 mg/dL 8.0-10.5 N CA) - XR CHEST 1 [id number] 08:51:00 [facility] 1945 Sex: F FAX: Shahnaz Miller MD [phone] Moore: St: ADM FAX: Kaia Nolan MD FAX: [facility] [phone] Name: BREA ZULUAGA [facility] : 1945 Age/S: 77/F [address] [place] [address] Unit #: [id number] Loc: G.[address] [place] [address] Phys: Estee Jordan Acct: [id number] Dis Date: Status: ADM IN PHONE #: [phone] Exam Date: 06/25/2023 0850 FAX #: [phone] Reason: Cardiac Surgery Post Op EXAMS: CPT CODE: [id number] XR CHEST 1 V [id number] EXAM: - XR CHEST 1 V Location code:C3 HISTORY: Cardiac Surgery Post Op COMPARISON: 06/24/2023 IMPRESSION: Single AP view of the chest is provided. Support lines and tubes are unchanged. Bilateral pulmonary opacities are similar. Thereis no pneumothorax. No additional interval change. at 0851 Reported and signed by: Franky Mckeon M.D. 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[facility] GLUCOSE [id number] 05:35:00 Test Item Value Reference Range Interpretation Comments GLUCOSE BEDSIDE (test 148 MG/DL 70-110 H Perfor med by certified code = GLUBED) 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[facility] CBC W/AUTO [id number] 03:45:00 Test Item Value Reference Range Interpretation Comments WHITE BLOOD CELL (test code = 23.5 x10 3/uL 4.5-11.0 H WBC) RED BLOOD CELL (test code = 2.26 x10 6/uL 3.54-5.02 L RBC) HEMOGLOBIN (test code = HGB) 6.9 g/dL 11.0-15.0 L HEMATOCRIT (test code = HCT) 22.4 % 33.0-45.0 L MEAN CELL VOLUME (test code = 99.1 fL 81.0-99.0 H MCV) MEAN CELL HGB (test code = 30.5 pg 27.0-33.0 N MCH) MEAN CELL HGB CONCETRATION 30.8 g/dL 33.0-37.0 L (test code = MCHC) RED CELL DISTRIBUTION WIDTH CV 15.2 % 11.5-14.5 H (test code = RDW) RED CELL DISTRIBUTION WIDTH SD 54.9 fL 37.0-54.0 H (test code = RDW-SD) PLATELET COUNT (test code = 185 x10 3/uL 150-400 N PLT) MEAN PLATELET VOLUME (test 10.6 fL 7.0-9.0 H code = MPV) NEUTROPHIL % (test code = NT%) 87.5 % 56.0-77.0 H IMMATURE GRANULOCYTE % (test 0.7 % 0.0-2.0 N code = IG%) LYMPHOCYTE % (test code = LY%) 4.2 % 14.0-32.0 L MONOCYTE % (test code = MO%) 7.4 % 4.8-9.0 N EOSINOPHIL % (test code = EO%) 0.0 % 0.3-3.7 L BASOPHIL % (test code = BA%) 0.2 % 0.0-2.0 N NUCLEATED RBC % (test code = 0.0 % 0-0 N NRBC%) NEUTROPHIL # (test code = NT#) 20.55 x10 3/uL 2.0-7.6 H IMMATURE GRANULOCYTE # (test 0.17 x10 3/uL 0.00-0.03 H code = IG#) LYMPHOCYTE # (test code = LY#) 0.99 x10 3/uL 1.0-3.8 L MONOCYTE # (test code = MO#) 1.73 x10 3/uL 0.1-0.8 H EOSINOPHIL # (test code = EO#) 0.00 x10 3/uL 0.0-0.2 N BASOPHIL # (test code = BA#) 0.04 x10 3/uL 0.0-0.2 N NUCLEATED RBC # (test code = 0.00 x10 3/uL 0.0-0.1 N NRBC#) MANUAL DIFF REQUIRED (test NO code = MDIFF) GLUCOSE [id number] 03:41:00 Test Item Value Reference Range Interpretation Comments GLUCOSE BEDSIDE (test 116 MG/DL 70-110 H Perfor med by certified code = GLUBED) 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[facility] BASIC METABOLIC [id number] 03:21:00 Test Item Value Reference Range Interpretation Comments SODIUM (test code = 139 mEq/L 134-147 N NA) POTASSIUM (test code 4.6 mEq/L 3.4-5.0 N = K) CHLORIDE (test code 108 mEq/L 100-108 N = CL) CARBON DIOXIDE (test 23 mEq/l 21-33 N code = CO2) ANION GAP (test code 12 0-20 N = GAP) GLUCOSE (test code = 135 mg/dL 77-141 NOTE: N EW NORMAL RANGE GLU) BLOOD UREA NITROGEN 44 mg/dL 7-25 H NOTE: NE W NORMAL RANGE (test code = BUN) GLOMERULAR 25.3 70-80 L The Glomerular FILTRATION RATE Filtration R ate is a (test code = GFR) calculated parameterbased on serum Creatinine, pat ient age and sex. GFR va luesless than 60 mL/min/ 1.73 square meters a re indicative ofCh ronic Kidney Disease. Values less than 15 mL/min/1.73squa re meters indicate Kidney failure. The calculation forGFR is based on the CKD-EPI (2020) calculat ion. This formulais race indifferent and is the recommended for roxana for GFRby the Nat nal Kidney Foundati on for Adults.The GFR will not calculate if th e sex is unknown or if thepatient's ag e is <18 years. CREATININE (test 2.0 mg/dL 0.6-1.3 H code = CREAT) CALCIUM (test code = 9.2 mg/dL 8.0-10.5 N CA) COMMENTS: POD #1HEPATIC FUNCTION [id number] 03:21:00 Test Item Value Reference Range Interpretation Comments TOTAL PROTEIN (test 5.3 g/dL 6.4-8.2 L code = PROT) ALBUMIN (test code = 3.70 g/dL 3.4-5.0 N ALB) BILIRUBIN TOTAL (test 0.30 mg/dL 0.0-1.0 code = BILT) BILIRUBIN DIRECT (test 0.20 MG/DL 0.1-0.3 NOTE: NEW NORMAL code = BILD) RANGE BILIRUBIN INDIRECT 0.10 MG/DL (test code = BILIND) SGOT/AST (test code = 51 IUnit/L 8-34 H NOTE: NEW NORMAL AST) RANGE SGPT/ALT (test code = 30 IUnit/L 10-49 N NOTE: NEW NORMAL ALT) RANGE ALKALINE PHOSPHATASE 46 IUnit/L 20-125 N TOTAL (test code = ALKP) COMMENTS: POD #[id number] 03:21:00 Test Item Value Reference Range Interpretation Comments MAGNESIUM (test code = 2.62 mg/dL 1.6-2.6 H NOTE: NEW NORMAL MAG) RANGE COMMENTS: POD #1GLUCOSE [id number] 02:35:00 Test Item Value Reference Range Interpretation Comments GLUCOSE BEDSIDE (test 125 MG/DL 70-110 H Perfor med by certified code = GLUBED) 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[facility] GLUCOSE [id number] 00:37:00 Test Item Value Reference Range Interpretation Comments GLUCOSE BEDSIDE (test 124 MG/DL 70-110 H Perfor med by certified code = GLUBED) 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[facility] GLUCOSE [id number] 23:20:00 Test Item Value Reference Range Interpretation Comments GLUCOSE BEDSIDE (test 161 MG/DL 70-110 H Perfor med by certified code = GLUBED) 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[facility] BASIC METABOLIC [id number] 23:09:00 Test Item Value Reference Range Interpretation Comments SODIUM (test code = 140 mEq/L 134-147 N NA) POTASSIUM (test code 4.0 mEq/L 3.4-5.0 = K) CHLORIDE (test code 107 mEq/L 100-108 N = CL) CARBON DIOXIDE (test 25 mEq/l 21-33 N code = CO2) ANION GAP (test code 12 0-20 N = GAP) GLUCOSE (test code = 204 mg/dL 77-141 H NOTE: N EW NORMAL RANGE GLU) BLOOD UREA NITROGEN 43 mg/dL 7-25 H NOTE: NE W NORMAL RANGE (test code = BUN) GLOMERULAR 23.8 70-80 L The Glomerular FILTRATION RATE Filtration R ate is a (test code = GFR) calculated parameterbased on serum Creatinine, pat ient age and sex. GFR va luesless than 60 mL/min/ 1.73 square meters a re indicative ofCh ronic Kidney Disease. Values less than 15 mL/min/1.73squa re meters indicate Kidney failure. The calculation forGFR is based on the CKD-EPI (2020) calculat ion. This formulais race indifferent and is the recommended for roxana for GFRby the [facility] Kidney Foundati on for Adults.The GFR will not calculate if th e sex is unknown or if thepatient's ag e is <18 years. CREATININE (test 2.1 mg/dL 0.6-1.3 H code = CREAT) CALCIUM (test code = 8.9 mg/dL 8.0-10.5 N CA) [id number] 23:09:00 Test Item Value Reference Range Interpretation Comments MAGNESIUM (test code = 2.48 mg/dL 1.6-2.6 N NOTE: NEW NORMAL MAG) RANGE GLUCOSE [id number] 22:05:00 Test Item Value Reference Range Interpretation Comments GLUCOSE BEDSIDE (test 228 MG/DL 70-110 H Perfor med by certified code = GLUBED) 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[facility] BASIC METABOLIC [id number] 20:53:00 Test Item Value Reference Range Interpretation Comments SODIUM (test code = 138 mEq/L 134-147 N NA) POTASSIUM (test code 5.5 mEq/L 3.4-5.0 H = K) CHLORIDE (test code 105 mEq/L 100-108 N = CL) CARBON DIOXIDE (test 22 mEq/l 21-33 N code = CO2) ANION GAP (test code 17 0-20 N = GAP) GLUCOSE (test code = 201 mg/dL 77-141 H NOTE: N EW NORMAL RANGE GLU) BLOOD UREA NITROGEN 42 mg/dL 7-25 H NOTE: NE W NORMAL RANGE (test code = BUN) GLOMERULAR 23.8 70-80 L The Glomerular FILTRATION RATE Filtration R ate is a (test code = GFR) calculated parameterbased on serum Creatinine, pat ient age and sex. GFR va luesless than 60 mL/min/ 1.73 square meters a re indicative ofCh ronic Kidney Disease. Values less than 15 mL/min/1.73squa re meters indicate Kidney failure. The calculation forGFR is based on the CKD-EPI (2020) calculat ion. This formulais race indifferent and is the recommended for roxana for GFRby the [facility] Kidney Foundati on for Adults.The GFR will not calculate if th e sex is unknown or if thepatient's ag e is <18 years. CREATININE (test 2.1 mg/dL 0.6-1.3 H code = CREAT) CALCIUM (test code = 8.9 mg/dL 8.0-10.5 N CA) [id number] 20:53:00 Test Item Value Reference Range Interpretation Comments MAGNESIUM (test code = 2.67 mg/dL 1.6-2.6 H NOTE: NEW NORMAL MAG) RANGE CBC W/AUTO [id number] 20:44:00 Test Item Value Reference Range Interpretation Comments WHITE BLOOD CELL (test code = 25.3 x10 3/uL 4.5-11.0 H WBC) RED BLOOD CELL (test code = 2.34 x10 6/uL 3.54-5.02 L RBC) HEMOGLOBIN (test code = HGB) 7.2 g/dL 11.0-15.0 L HEMATOCRIT (test code = HCT) 23.7 % 33.0-45.0 L MEAN CELL VOLUME (test code = 101.3 fL 81.0-99.0 H MCV) MEAN CELL HGB (test code = 30.8 pg 27.0-33.0 N MCH) MEAN CELL HGB CONCETRATION 30.4 g/dL 33.0-37.0 L (test code = MCHC) RED CELL DISTRIBUTION WIDTH CV 15.0 % 11.5-14.5 H (test code = RDW) RED CELL DISTRIBUTION WIDTH SD 55.8 fL 37.0-54.0 H (test code = RDW-SD) PLATELET COUNT (test code = 192 x10 3/uL 150-400 N PLT) MEAN PLATELET VOLUME (test 10.8 fL 7.0-9.0 H code = MPV) NEUTROPHIL % (test code = NT%) 88.5 % 56.0-77.0 H IMMATURE GRANULOCYTE % (test 1.0 % 0.0-2.0 N code = IG%) LYMPHOCYTE % (test code = LY%) 3.4 % 14.0-32.0 L MONOCYTE % (test code = MO%) 6.9 % 4.8-9.0 N EOSINOPHIL % (test code = EO%) 0.0 % 0.3-3.7 L BASOPHIL % (test code = BA%) 0.2 % 0.0-2.0 N NUCLEATED RBC % (test code = 0.0 % 0-0 N NRBC%) NEUTROPHIL # (test code = NT#) 22.36 x10 3/uL 2.0-7.6 H IMMATURE GRANULOCYTE # (test 0.26 x10 3/uL 0.00-0.03 H code = IG#) LYMPHOCYTE # (test code = LY#) 0.85 x10 3/uL 1.0-3.8 L MONOCYTE # (test code = MO#) 1.73 x10 3/uL 0.1-0.8 H EOSINOPHIL # (test code = EO#) 0.00 x10 3/uL 0.0-0.2 N BASOPHIL # (test code = BA#) 0.05 x10 3/uL 0.0-0.2 N NUCLEATED RBC # (test code = 0.00 x10 3/uL 0.0-0.1 N NRBC#) MANUAL DIFF REQUIRED (test NO code = MDIFF) GLUCOSE [id number] 19:42:00 Test Item Value Reference Range Interpretation Comments GLUCOSE BEDSIDE (test 127 MG/DL 70-110 H Perfor med by certified code = GLUBED) 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[facility] GLUCOSE [id number] 18:21:00 Test Item Value Reference Range Interpretation Comments GLUCOSE BEDSIDE (test 70 MG/DL 70-110 N Perfor med by certified code = GLUBED) 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[facility] BASIC METABOLIC [id number] 15:05:00 Test Item Value Reference Range Interpretation Comments SODIUM (test code = 143 mEq/L 134-147 N NA) POTASSIUM (test code 4.7 mEq/L 3.4-5.0 N = K) CHLORIDE (test code 111 mEq/L 100-108 H = CL) CARBON DIOXIDE (test 25 mEq/l 21-33 N code = CO2) ANION GAP (test code 11 0-20 N = GAP) GLUCOSE (test code = 105 mg/dL 77-141 N NOTE: N EW NORMAL RANGE GLU) BLOOD UREA NITROGEN 37 mg/dL 7-25 H NOTE: NE W NORMAL RANGE (test code = BUN) GLOMERULAR 33.0 70-80 L The Glomerular FILTRATION RATE Filtration R ate is a (test code = GFR) calculated parameterbased on serum Creatinine, pat ient age and sex. GFR va luesless than 60 mL/min/ 1.73 square meters a re indicative ofCh ronic Kidney Disease. Values less than 15 mL/min/1.73squa re meters indicate Kidney failure. The calculation forGFR is based on the CKD-EPI (2020) calculat ion. This formulais race indifferent and is the recommended for roxana for GFRby the Natio nal Kidney Foundati on for Adults.The GFR will not calculate if th e sex is unknown or if thepatient's ag e is <18 years. CREATININE (test 1.6 mg/dL 0.6-1.3 H code = CREAT) CALCIUM (test code = 8.8 mg/dL 8.0-10.5 N CA) CBC W/AUTO [id number] 14:56:00 Test Item Value Reference Range Interpretation Comments WHITE BLOOD CELL (test code = 22.2 x10 3/uL 4.5-11.0 H WBC) RED BLOOD CELL (test code = 2.48 x10 6/uL 3.54-5.02 L RBC) HEMOGLOBIN (test code = HGB) 7.5 g/dL 11.0-15.0 L HEMATOCRIT (test code = HCT) 24.9 % 33.0-45.0 L MEAN CELL VOLUME (test code = 100.4 fL 81.0-99.0 H MCV) MEAN CELL HGB (test code = 30.2 pg 27.0-33.0 N MCH) MEAN CELL HGB CONCETRATION 30.1 g/dL 33.0-37.0 L (test code = MCHC) RED CELL DISTRIBUTION WIDTH CV 14.8 % 11.5-14.5 H (test code = RDW) RED CELL DISTRIBUTION WIDTH SD 54.5 fL 37.0-54.0 H (test code = RDW-SD) PLATELET COUNT (test code = 180 x10 3/uL 150-400 N PLT) MEAN PLATELET VOLUME (test 10.8 fL 7.0-9.0 H code = MPV) NEUTROPHIL % (test code = NT%) 91.1 % 56.0-77.0 H IMMATURE GRANULOCYTE % (test 0.9 % 0.0-2.0 N code = IG%) LYMPHOCYTE % (test code = LY%) 2.7 % 14.0-32.0 L MONOCYTE % (test code = MO%) 5.1 % 4.8-9.0 N EOSINOPHIL % (test code = EO%) 0.0 % 0.3-3.7 L BASOPHIL % (test code = BA%) 0.2 % 0.0-2.0 N NUCLEATED RBC % (test code = 0.0 % 0-0 N NRBC%) NEUTROPHIL # (test code = NT#) 20.19 x10 3/uL 2.0-7.6 H IMMATURE GRANULOCYTE # (test 0.19 x10 3/uL 0.00-0.03 H code = IG#) LYMPHOCYTE # (test code = LY#) 0.60 x10 3/uL 1.0-3.8 L MONOCYTE # (test code = MO#) 1.13 x10 3/uL 0.1-0.8 H EOSINOPHIL # (test code = EO#) 0.00 x10 3/uL 0.0-0.2 N BASOPHIL # (test code = BA#) 0.04 x10 3/uL 0.0-0.2 N NUCLEATED RBC # (test code = 0.00 x10 3/uL 0.0-0.1 N NRBC#) MANUAL DIFF REQUIRED (test NO code = MDIFF) BASIC METABOLIC [id number] 12:15:00 Test Item Value Reference Range Interpretation Comments SODIUM (test code = 143 mEq/L 134-147 N NA) POTASSIUM (test code 4.8 mEq/L 3.4-5.0 N = K) CHLORIDE (test code 112 mEq/L 100-108 H = CL) CARBON DIOXIDE (test 22 mEq/l 21-33 N code = CO2) ANION GAP (test code 14 0-20 N = GAP) GLUCOSE (test code = 118 mg/dL 77-141 N NOTE: N EW NORMAL RANGE GLU) BLOOD UREA NITROGEN 38 mg/dL 7-25 H NOTE: NE W NORMAL RANGE (test code = BUN) GLOMERULAR 35.7 70-80 L The Glomerular FILTRATION RATE Filtration R ate is a (test code = GFR) calculated parameterbased on serum Creatinine, pat ient age and sex. GFR va luesless than 60 mL/min/ 1.73 square meters a re indicative ofCh ronic Kidney Disease. Values less than 15 mL/min/1.73squa re meters indicate Kidney failure. The calculation forGFR is based on the CKD-EPI (202) calculat ion. This formulais race indifferent and is the recommended for roxana for GFRby the Natio nal Kidney Foundati on for Adults.The GFR will not calculate if th e sex is unknown or if thepatient's ag e is <18 years. CREATININE (test 1.5 mg/dL 0.6-1.3 H code = CREAT) CALCIUM (test code = 8.7 mg/dL 8.0-10.5 N CA) CBC W/AUTO [id number] 11:50:00 Test Item Value Reference Range Interpretation Comments WHITE BLOOD CELL (test code = 21.8 x10 3/uL 4.5-11.0 H WBC) RED BLOOD CELL (test code = 2.50 x10 6/uL 3.54-5.02 L RBC) HEMOGLOBIN (test code = HGB) 7.6 g/dL 11.0-15.0 L HEMATOCRIT (test code = HCT) 24.8 % 33.0-45.0 L MEAN CELL VOLUME (test code = 99.2 fL 81.0-99.0 H MCV) MEAN CELL HGB (test code = 30.4 pg 27.0-33.0 N MCH) MEAN CELL HGB CONCETRATION 30.6 g/dL 33.0-37.0 L (test code = MCHC) RED CELL DISTRIBUTION WIDTH CV 14.9 % 11.5-14.5 H (test code = RDW) RED CELL DISTRIBUTION WIDTH SD 54.4 fL 37.0-54.0 H (test code = RDW-SD) PLATELET COUNT (test code = 172 x10 3/uL 150-400 N PLT) MEAN PLATELET VOLUME (test 10.3 fL 7.0-9.0 H code = MPV) NEUTROPHIL % (test code = NT%) 91.3 % 56.0-77.0 H IMMATURE GRANULOCYTE % (test 0.9 % 0.0-2.0 N code = IG%) LYMPHOCYTE % (test code = LY%) 2.8 % 14.0-32.0 L MONOCYTE % (test code = MO%) 4.8 % 4.8-9.0 N EOSINOPHIL % (test code = EO%) 0.0 % 0.3-3.7 L BASOPHIL % (test code = BA%) 0.2 % 0.0-2.0 N NUCLEATED RBC % (test code = 0.0 % 0-0 N NRBC%) NEUTROPHIL # (test code = NT#) 19.91 x10 3/uL 2.0-7.6 H IMMATURE GRANULOCYTE # (test 0.20 x10 3/uL 0.00-0.03 H code = IG#) LYMPHOCYTE # (test code = LY#) 0.61 x10 3/uL 1.0-3.8 L MONOCYTE # (test code = MO#) 1.04 x10 3/uL 0.1-0.8 H EOSINOPHIL # (test code = EO#) 0.00 x10 3/uL 0.0-0.2 N BASOPHIL # (test code = BA#) 0.04 x10 3/uL 0.0-0.2 N NUCLEATED RBC # (test code = 0.00 x10 3/uL 0.0-0.1 N NRBC#) MANUAL DIFF REQUIRED (test NO code = IFF) - XR CHEST 1 [id number] 07:53:00 [facility] 1945 Sex: F FAX: Shahnaz Miller MD [phone] Moore: St: ADM FAX: Kaia Nolan MD FAX: Estee Dean Phy [phone] Name: FREDCAMILAYAMILETHBREA [facility] : 1945 Age/S: 77/F [address] [place] [address] Blvd Unit #: [id number] Loc: [address] [address] Phys: Estee Jordan Physic Acct: [id number] Dis Date: Status: ADM IN PHONE #: [phone] Exam Date: 06/24/2023 0451 FAX #: [phone] Reason: Cardiac Surgery Post Op EXAMS: CPT CODE: [id number] XR CHEST 1 V 18564 H 20 TIME OF STUDY: 06/24/2023 5:00AM REASON FOR EXAM: Cardiac Surgery Post Op COMPARISON: 1 day prior FINDINGS: AP view of the chest was obtained. Support devices: ET tube and enteric tube have been removed. Stable remaining support devices. Lungs: Normal lung volume. No mass, or consolidation. Mild central vascular congestion. Pleura: No pleural effusion or pneumothorax. Heart and Mediastinum: Normal cardiomediastinal silhouette andgreat vessels. 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 The median sternotomy wires are in the expectedconfiguration. IMPRESSION: 1. Expected post-CABG changes with interval removal of ET tube and enteric tube. at 0753 Reported and signed by: Torey Pizano M.D. CC: Shahnaz Miller MD; Kaia Nolan MD; Estee Jordan Technologist: RT Dario(R) Trnscrd Date/Time/By: 06/24/2023 (0753) : By: [email or web address] Orig Print D/T: S: 06/24/2023 (0756) PAGE 1 Signed ReportUN[facility] ART[facility] BLOOD [id number] 06:41:00 Test Item Value Reference Range Interpretation Comments POC ARTERIAL BLOOD GAS PH (test 7.370 7.35-7.45 N code = POCPHA) POC ARTERIAL BLOOD GAS PCO2 28.8 mmHg 35.0-45 LL (test code = VAESDP1U) POC TCO2 ARTERIAL (test code = 17.7 POCTCO2) POC ARTERIAL BLOOD GAS PO2 (test 101.9 mmHg 80-100.0 H code = [id number]) POC HCO3 ARTERIAL (test code = 16.8 MMOL/L 22.0-26.0 LL [id number]) POC BASE EXCESS (test code = -8.6 MMOL/L -4.0-4.0 L POCBEA) POC O2 SATURATION (test code = 98.0 % 90-100 N POCO2S) FIO2 (test code = FIO2A) 40 % PaO2/FiO2 (test code = [id number]) 254.75 mm/Hg ABG DELIVERY (test code = PHILLIP) BiPAP ABG PEEP (test code = PEEPA) 5 cmH2O ABG PRESSURE SUPPORT (test code 12 cmH2O = PSABG) ABG TEMPERATURE (test code = 97.5 F TEMPA) ABG SITE (test code = SITEA) Art Line BASIC METABOLIC [id number] 06:41:00 Test Item Value Reference Range Interpretation Comments SODIUM (test code = NA/ABG) 140 mmol/L 134-147 N POTASSIUM (test code = K/ABG) 4.1 mmol/L 3.4-5.0 N CHLORIDE (test code = CL/ABG) 116 mmol/L 100-108 H CREATININE ABG (test code = 1.2 mg/dL 0.6-1.0 H CREAABG) POC IONIZED CALCIUM (test code = 1.17 MMOL/L 1.12-1.32 N POCCA) POC GLUCOSE (test code = POCGLU) 128 MG/DL 70-110 H HEMOGLOBIN [id number] 06:41:00 Test Item Value Reference Range Interpretation Comments HEMOGLOBIN ABG (test code = HGB/ABG) 7.8 G/DL 11.0-15.0 L [id number] 06:41:00 Test Item Value Reference Range Interpretation Comments HEMATOCRIT (test code = HCT/ABG) 23 % 33.0-45.0 L POC LACTIC [id number] 06:41:00 Test Item Value Reference Range Interpretation Comments POC LACTIC ACID (test code = 0.7 mmol/l 0.9-1.7 L POCLAC) GLUCOSE [id number] 05:13:00 Test Item Value Reference Range Interpretation Comments GLUCOSE BEDSIDE (test 155 MG/DL 70-110 H Perfor med by certified code = GLUBED) 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[facility] GLUCOSE [id number] 03:38:00 Test Item Value Reference Range Interpretation Comments GLUCOSE BEDSIDE (test 105 MG/DL 70-110 N Perfor med by certified code = GLUBED) 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[facility] BASIC METABOLIC [id number] 03:11:00 Test Item Value Reference Range Interpretation Comments SODIUM (test code = 143 mEq/L 134-147 N NA) POTASSIUM (test code 5.0 mEq/L 3.4-5.0 N = K) CHLORIDE (test code 112 mEq/L 100-108 H = CL) CARBON DIOXIDE (test 21 mEq/l 21-33 N code = CO2) ANION GAP (test code 15 0-20 N = GAP) GLUCOSE (test code = 145 mg/dL 77-141 H NOTE: N EW NORMAL RANGE GLU) BLOOD UREA NITROGEN 31 mg/dL 7-25 H NOTE: NE W NORMAL RANGE (test code = BUN) GLOMERULAR 42.4 70-80 L The Glomerular FILTRATION RATE Filtration R ate is a (test code = GFR) calculated parameterbased on serum Creatinine, pat ient age and sex. GFR va luesless than 60 mL/min/ 1.73 square meters a re indicative ofCh ronic Kidney Disease. Values less than 15 mL/min/1.73squa re meters indicate Kidney failure. The calculation forGFR is based on the CKD-EPI (2020) calculat ion. This formulais race indifferent and is the recommended for roxana for GFRby the [facility] on for Adults.The GFR will not calculate if th e sex is unknown or if thepatient's ag e is <18 years. CREATININE (test 1.3 mg/dL 0.6-1.3 N code = CREAT) CALCIUM (test code = 9.0 mg/dL 8.0-10.5 N CA) COMMENTS: POD #1HEPATIC FUNCTION [id number] 03:11:00 Test Item Value Reference Range Interpretation Comments TOTAL PROTEIN (test 5.2 g/dL 6.4-8.2 L code = PROT) ALBUMIN (test code = 3.60 g/dL 3.4-5.0 N ALB) BILIRUBIN TOTAL (test 0.70 mg/dL 0.0-1.0 code = BILT) BILIRUBIN DIRECT (test 0.30 MG/DL 0.1-0.3 N NOTE: NEW NORMAL code = BILD) RANGE BILIRUBIN INDIRECT 0.40 MG/DL (test code = BILIND) SGOT/AST (test code = 133 IUnit/L 8-34 H NOTE: NEW NORMAL AST) RANGE SGPT/ALT (test code = 58 IUnit/L 10-49 H NOTE: NEW NORMAL ALT) RANGE ALKALINE PHOSPHATASE 53 IUnit/L 20-125 N TOTAL (test code = ALKP) COMMENTS: POD #[id number] 03:11:00 Test Item Value Reference Range Interpretation Comments MAGNESIUM (test code = 2.70 mg/dL 1.6-2.6 H NOTE: NEW NORMAL MAG) RANGE COMMENTS: POD #1PROTHROMBIN [id number] 03:02:00 Test Item Value Reference Range Interpretation Comments PROTHROMBIN TIME 14.3 SECONDS 9.3-12.9 H PATIENT (test code = PTP) INTERNATIONAL NORMAL 1.3 0.8-1.2 H TARGET INR BY RATIO (test code = [...] (to prevent recurrent infar ct). THROMBOPLASTIN TIME [id number] 03:02:00 Test Item Value Reference Range Interpretation Comments THROMBOPLASTIN TIME 21.6 Seconds 25.0-39.5 L Therape utic Range: PARTIAL (test code = 50.4 - 88.3 Seconds PTT) Effective 01/16/2019 CBC W/AUTO [id number] 03:01:00 Test Item Value Reference Range Interpretation Comments WHITE BLOOD CELL (test code = 36.2 x10 3/uL 4.5-11.0 H WBC) RED BLOOD CELL (test code = 3.05 x10 6/uL 3.54-5.02 L RBC) HEMOGLOBIN (test code = HGB) 9.4 g/dL 11.0-15.0 L HEMATOCRIT (test code = HCT) 29.3 % 33.0-45.0 L MEAN CELL VOLUME (test code = 96.1 fL 81.0-99.0 N MCV) MEAN CELL HGB (test code = MCH) 30.8 pg 27.0-33.0 N MEAN CELL HGB CONCETRATION 32.1 g/dL 33.0-37.0 L (test code = MCHC) RED CELL DISTRIBUTION WIDTH CV 14.6 % 11.5-14.5 H (test code = RDW) RED CELL DISTRIBUTION WIDTH SD 51.5 fL 37.0-54.0 N (test code = RDW-SD) PLATELET COUNT (test code = 225 x10 3/uL 150-400 N PLT) MEAN PLATELET VOLUME (test code 10.1 fL 7.0-9.0 H = MPV) NEUTROPHIL % (test code = NT%) % 56.0-77.0 LYMPHOCYTE % (test code = LY%) % 14.0-32.0 NEUTROPHIL # (test code = NT#) x10 3/uL 2.0-7.6 LYMPHOCYTE # (test code = LY#) x10 3/uL 1.0-3.8 MANUAL DIFF REQUIRED (test code YES = MDIFF) WBC [id number] 03:01:00 Test Item Value Reference Range Interpretation Comments BAND NEUTROPHIL (test code 0.0 % 0.0-10.0 N = BAND) ANISOCYTOSIS (test code = 2+ ANISO) PLATELET ESTIMATE (test Adequate THOUSAND ADEQUATE code = PLTEST) SEGMENTED NEUTROPHILS (test 93.7 % 37-69 H code = SEG) LYMPHOCYTE (test code = 2.7 % 23-55 L LYMPH) MONOCYTE (test code = MON) 3.6 % 0-10 N MACROCYTOSIS (test code = 2+ MACR) POC ARTERIAL BLOOD [id number] 02:33:00 Test Item Value Reference Range Interpretation Comments POC ARTERIAL BLOOD GAS PH (test 7.423 7.35-7.45 N code = POCPHA) POC ARTERIAL BLOOD GAS PCO2 32.8 mmHg 35.0-45 L (test code = [id number]) POC TCO2 ARTERIAL (test code = 22.5 POCTCO2) POC ARTERIAL BLOOD GAS PO2 (test 150.1 mmHg 80-100.0 H code = OMYWE6F) POC HCO3 ARTERIAL (test code = 21.5 MMOL/L 22.0-26.0 L SDYPDK8S) POC BASE EXCESS (test code = -3.0 MMOL/L -4.0-4.0 N POCBEA) POC O2 SATURATION (test code = 99.4 % 90-100 N POCO2S) FIO2 (test code = FIO2A) 50 % PaO2/FiO2 (test code = [id number]) 300.20 mm/Hg ABG DELIVERY (test code = PHILLIP) Adult Vent ABG VENT MODE (test code = AC MODEA) ABG VENT RESP RATE (test code = 22 /MIN RRA) ABG TIDAL VOLUME (test code = 400 ml TVA) ABG PEEP (test code = PEEPA) 5 cmH2O ABG TEMPERATURE (test code = 97.7 F TEMPA) ABG SITE (test code = SITEA) Art Line BASIC METABOLIC [id number] 02:33:00 Test Item Value Reference Range Interpretation Comments SODIUM (test code = NA/ABG) 142 mmol/L 134-147 N POTASSIUM (test code = K/ABG) 4.9 mmol/L 3.4-5.0 N CHLORIDE (test code = CL/ABG) 111 mmol/L 100-108 H CREATININE ABG (test code = 1.2 mg/dL 0.6-1.0 H CREAABG) POC IONIZED CALCIUM (test code = 1.28 MMOL/L 1.12-1.32 N POCCA) POC GLUCOSE (test code = POCGLU) 140 MG/DL 70-110 H HEMOGLOBIN [id number] 02:33:00 Test Item Value Reference Range Interpretation Comments HEMOGLOBIN ABG (test code = 10.2 G/DL 11.0-15.0 L HGB/ABG) [id number] 02:33:00 Test Item Value Reference Range Interpretation Comments HEMATOCRIT (test code = HCT/ABG) 30 % 33.0-45.0 L POC LACTIC [id number] 02:33:00 Test Item Value Reference Range Interpretation Comments POC LACTIC ACID (test code = 1.2 mmol/l 0.9-1.7 N POCLAC) POC ARTERIAL BLOOD [id number] 01:02:00 Test Item Value Reference Range Interpretation Comments POC ARTERIAL BLOOD GAS PH (test 7.341 7.35-7.45 L code = POCPHA) POC ARTERIAL BLOOD GAS PCO2 42.1 mmHg 35.0-45 N (test code = HRLSDE0G) POC TCO2 ARTERIAL (test code = 24.2 POCTCO2) POC ARTERIAL BLOOD GAS PO2 (test 144.0 mmHg 80-100.0 H code = WHXHO7T) POC HCO3 ARTERIAL (test code = 22.9 MMOL/L 22.0-26.0 N QMXPHS0E) POC BASE EXCESS (test code = -3.0 MMOL/L -4.0-4.0 N POCBEA) POC O2 SATURATION (test code = 99.1 % 90-100 N POCO2S) FIO2 (test code = FIO2A) 50 % PaO2/FiO2 (test code = ELL1GMJ1) 288.00 mm/Hg ABG DELIVERY (test code = PHILLIP) CPAP ABG PEEP (test code = PEEPA) 12 cmH2O ABG PRESSURE SUPPORT (test code 5 cmH2O = PSABG) ABG TEMPERATURE (test code = 97.7 F TEMPA) ABG SITE (test code = SITEA) Art Line BASIC METABOLIC [id number] 01:02:00 Test Item Value Reference Range Interpretation Comments SODIUM (test code = NA/ABG) 142 mmol/L 134-147 N POTASSIUM (test code = K/ABG) 4.6 mmol/L 3.4-5.0 N CHLORIDE (test code = CL/ABG) 111 mmol/L 100-108 H CREATININE ABG (test code = 1.2 mg/dL 0.6-1.0 H CREAABG) POC IONIZED CALCIUM (test code = 1.32 MMOL/L 1.12-1.32 N POCCA) POC GLUCOSE (test code = POCGLU) 149 MG/DL 70-110 H HEMOGLOBIN [id number] 01:02:00 Test Item Value Reference Range Interpretation Comments HEMOGLOBIN ABG (test code = 11.2 G/DL 11.0-15.0 N HGB/ABG) [id number] 01:02:00 Test Item Value Reference Range Interpretation Comments HEMATOCRIT (test code = HCT/ABG) 33 % 33.0-45.0 N POC LACTIC [id number] 01:02:00 Test Item Value Reference Range Interpretation Comments POC LACTIC ACID (test code = 2.1 mmol/l 0.9-1.7 H POCLAC) GLUCOSE [id number] 00:16:00 Test Item Value Reference Range Interpretation Comments GLUCOSE BEDSIDE (test 110 MG/DL 70-110 N [facility] med by certified code = GLUBED) 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[facility] GLUCOSE [id number] 23:34:00 Test Item Value Reference Range Interpretation Comments GLUCOSE BEDSIDE (test 137 MG/DL 70-110 H [facility] med by certified code = GLUBED) 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[facility] POC ARTERIAL BLOOD [id number] 22:55:00 Test Item Value Reference Range Interpretation Comments POC ARTERIAL BLOOD GAS PH (test 7.416 7.35-7.45 N code = POCPHA) POC ARTERIAL BLOOD GAS PCO2 34.0 mmHg 35.0-45 L (test code = [id number]) POC TCO2 ARTERIAL (test code = 23.1 POCTCO2) POC ARTERIAL BLOOD GAS PO2 (test 89.0 mmHg 80-100.0 N code = CSDXV1E) POC HCO3 ARTERIAL (test code = 22.0 MMOL/L 22.0-26.0 N [id number]) POC BASE EXCESS (test code = -2.7 MMOL/L -4.0-4.0 N POCBEA) POC O2 SATURATION (test code = 97.3 % 90-100 N POCO2S) FIO2 (test code = FIO2A) 40 % PaO2/FiO2 (test code = [id number]) 222.50 mm/Hg ABG DELIVERY (test code = PHILLIP) Adult Vent ABG VENT MODE (test code = AC MODEA) ABG VENT RESP RATE (test code = 22 /MIN RRA) ABG TIDAL VOLUME (test code = 400 ml TVA) ABG PEEP (test code = PEEPA) 5 cmH2O ABG TEMPERATURE (test code = 97.5 F TEMPA) ABG SITE (test code = SITEA) Art Line BASIC METABOLIC [id number] 22:55:00 Test Item Value Reference Range Interpretation Comments SODIUM (test code = NA/ABG) 141 mmol/L 134-147 N POTASSIUM (test code = K/ABG) 4.9 mmol/L 3.4-5.0 N CHLORIDE (test code = CL/ABG) 109 mmol/L 100-108 H CREATININE ABG (test code = 1.2 mg/dL 0.6-1.0 H CREAABG) POC IONIZED CALCIUM (test code = 1.30 MMOL/L 1.12-1.32 N POCCA) POC GLUCOSE (test code = POCGLU) 163 MG/DL 70-110 H HEMOGLOBIN [id number] 22:55:00 Test Item Value Reference Range Interpretation Comments HEMOGLOBIN ABG (test code = 11.6 G/DL 11.0-15.0 N HGB/ABG) [id number] 22:55:00 Test Item Value Reference Range Interpretation Comments HEMATOCRIT (test code = HCT/ABG) 34 % 33.0-45.0 N POC LACTIC [id number] 22:55:00 Test Item Value Reference Range Interpretation Comments POC LACTIC ACID (test code = 2.9 mmol/l 0.9-1.7 H POCLAC) CBC W/AUTO [id number] 21:54:00 Test Item Value Reference Range Interpretation Comments WHITE BLOOD CELL 33.4 x10 3/uL 4.5-11.0 H (test code = WBC) RED BLOOD CELL (test 2.98 x10 6/uL 3.54-5.02 L code = RBC) HEMOGLOBIN (test code 9.1 g/dL 11.0-15.0 L = HGB) HEMATOCRIT (test code 29.2 % 33.0-45.0 L = HCT) MEAN CELL VOLUME 98.0 fL 81.0-99.0 N (test code = MCV) MEAN CELL HGB (test 30.5 pg 27.0-33.0 N code = MCH) MEAN CELL HGB 31.2 g/dL 33.0-37.0 L CONCETRATION (test code = MCHC) RED CELL DISTRIBUTION 14.6 % 11.5-14.5 H WIDTH CV (test code = RDW) RED CELL DISTRIBUTION 52.7 fL 37.0-54.0 N WIDTH SD (test code = RDW-SD) PLATELET COUNT (test 185 x10 3/uL 150-400 N code = PLT) MEAN PLATELET VOLUME 10.1 fL 7.0-9.0 H (test code = MPV) NEUTROPHIL % (test 85.7 % 56.0-77.0 H code = NT%) LYMPHOCYTE % (test 5.8 % 14.0-32.0 L code = LY%) NEUTROPHIL # (test 28.63 x10 3/uL 2.0-7.6 H code = NT#) LYMPHOCYTE # (test 1.93 x10 3/uL 1.0-3.8 N code = LY#) MANUAL DIFF REQUIRED NO SLIDE R BELEN, (test code = MDIFF) CONSISTE NT WITH AUTO DIFF. IMMATURE GRANULOCYTE 1.9 % 0.0-2.0 N % (test code = IG%) MONOCYTE % (test code 4.6 % 4.8-9.0 L = MO%) EOSINOPHIL % (test 1.5 % 0.3-3.7 N code = EO%) BASOPHIL % (test code 0.5 % 0.0-2.0 N = BA%) NUCLEATED RBC % (test 0.0 % 0-0 N code = NRBC%) IMMATURE GRANULOCYTE 0.62 x10 3/uL 0.00-0.03 H # (test code = IG#) MONOCYTE # (test code 1.54 x10 3/uL 0.1-0.8 H = MO#) EOSINOPHIL # (test 0.51 x10 3/uL 0.0-0.2 H code = EO#) BASOPHIL # (test code 0.16 x10 3/uL 0.0-0.2 N = BA#) NUCLEATED RBC # (test 0.00 x10 3/uL 0.0-0.1 N code = NRBC#) COMMENTS: On arrivalPROTHROMBIN [id number] 21:53:00 Test Item Value Reference Range Interpretation Comments PROTHROMBIN TIME 19.4 SECONDS 9.3-12.9 H PATIENT (test code = PTP) INTERNATIONAL NORMAL 1.7 0.8-1.2 H TARGET INR BY RATIO (test code = [...] l Infarction (to prevent recurrent infar ct). COMMENTS: On arrivalTHROMBOPLASTIN TIME [id number] 21:53:00 Test Item Value Reference Range Interpretation Comments THROMBOPLASTIN TIME 31.6 Seconds 25.0-39.5 N Therape utic Range: PARTIAL (test code = 50.4 - 88.3 Seconds PTT) Effective 01/16/2019 COMMENTS: On arrivalBASIC METABOLIC [id number] 21:49:00 Test Item Value Reference Range Interpretation Comments SODIUM (test code = 140 mEq/L 134-147 N NA) POTASSIUM (test code 4.9 mEq/L 3.4-5.0 N = K) CHLORIDE (test code 110 mEq/L 100-108 H = CL) CARBON DIOXIDE (test 24 mEq/l 21-33 N code = CO2) ANION GAP (test code 11 0-20 N = GAP) GLUCOSE (test code = 185 mg/dL 77-141 H NOTE: N EW NORMAL RANGE GLU) BLOOD UREA NITROGEN 24 mg/dL 7-25 N NOTE: NE W NORMAL RANGE (test code = BUN) GLOMERULAR 46.6 70-80 L The Glomerular FILTRATION RATE Filtration R ate is a (test code = GFR) calculated parameterbased on serum Creatinine, pat ient age and sex. GFR va luesless than 60 mL/min/ 1.73 square meters a re indicative ofCh ronic Kidney Disease. Values less than 15 mL/min/1.73squa re meters indicate Kidney failure. The calculation forGFR is based on the CKD-EPI (2020) calculat ion. This formulais race indifferent and is the recommended for roxana for GFRby the [facility] on for Adults.The GFR will not calculate if th e sex is unknown or if thepatient's ag e is <18 years. CREATININE (test 1.2 mg/dL 0.6-1.3 N code = CREAT) CALCIUM (test code = 8.4 mg/dL 8.0-10.5 N CA) COMMENTS: On arrivalComment: On [id number] 21:49:00 Test Item Value Reference Range Interpretation Comments MAGNESIUM (test code = 2.93 mg/dL 1.6-2.6 H NOTE: NEW NORMAL MAG) RANGE COMMENTS: On arrivalComment: On arrival- XR CHEST 1 [id number] 21:48:00 [facility] JAYME LOREDOName: BREA ZULUAGA : 1945 Sex: F FAX: Shahnaz Miller MD [phone] Moore: St: ADM FAX: Kaia Nolan MD FAX: Ofelia Dena [facility] [phone] Name: BREA ZULUAGA [facility] [place] : 1945 Age/S: 77/F [address] [place] [address] Unit #: [id number] Loc: G.2202 [place] [address] Phys: Estee Jordan Physic Acct: [id number] Dis Date: Status: ADM IN PHONE #: [phone] Exam Date: 06/23/20232110 FAX #: [phone] Reason: Cardiac Surgery Post Op EXAMS: CPT CODE: [id number] XR CHEST 1 V [id number] EXAM: - XR CHEST 1 V HISTORY: Cardiac Surgery Post Op TECHNIQUE: AP radiograph the chest was obtained. COMPARISON: None. FINDINGS: Moderate cardiac megaly. Multiple median sternotomy wires noted. Cardiac pacemaker with lead wires in satisfactory position. Right-sided central venous with catheter with tip in the superior vena cava. Endotracheal tube is difficult to visualize and perhaps less than 1 cm above the martina. Left-sided mediastinal or chest tube is noted. Clinical correlation. Left retrocardiac consolidation with mild central pulmonary vascularity. Tiny left pleural effusion. No underlying pneumothorax. IMPRESSION: Endotracheal tube is less than 1 cm above the martina and may be repositioned back by 2 cm. Leftward cardiac consolidation mild central pulmonary vascularity with tiny left pleural effusion. Dictation/location code: H-100 at 8 Reportedand signed by: Yang Rouse M.D. CC: Shahnaz Miller MD; Kaia Nolan MD; Estee Jordan Technologist: RT Monika(Maddison) Trnscrd Date/Time/By: 06/23/2023 (2147) : By: [email or web address] OrigPrint D/T: S: 06/23/2023 (2150) PAGE 1 Signed ReportPOC ARTERIAL BLOOD [id number] 21:25:00 Test Item Value Reference Range Interpretation Comments POC ARTERIAL BLOOD GAS PH (test 7.366 7.35-7.45 N code = POCPHA) POC ARTERIAL BLOOD GAS PCO2 45.4 mmHg 35.0-45 H (test code = [id number]) POC TCO2 ARTERIAL (test code = 27.6 POCTCO2) POC ARTERIAL BLOOD GAS PO2 (test 445.3 mmHg 80-100.0 HH code = OTAGL4I) POC HCO3 ARTERIAL (test code = 26.1 MMOL/L 22.0-26.0 H [id number]) POC BASE EXCESS (test code = 0.7 MMOL/L -4.0-4.0 N POCBEA) POC O2 SATURATION (test code = 100.0 % 90-100 N POCO2S) FIO2 (test code = FIO2A) 100 % PaO2/FiO2 (test code = [id number]) 445.30 mm/Hg ABG VENT MODE (test code = AC MODEA) ABG VENT RESP RATE (test code = 22 /MIN RRA) ABG TIDAL VOLUME (test code = 400 ml TVA) ABG PEEP (test code = PEEPA) 10 cmH2O ABG TEMPERATURE (test code = 97.9 F TEMPA) ABG SITE (test code = SITEA) Art Line BASIC METABOLIC [id number] 21:25:00 Test Item Value Reference Range Interpretation Comments SODIUM (test code = NA/ABG) 141 mmol/L 134-147 N POTASSIUM (test code = K/ABG) 4.8 mmol/L 3.4-5.0 N CHLORIDE (test code = CL/ABG) 108 mmol/L 100-108 N CREATININE ABG (test code = 0.6 mg/dL 0.6-1.0 CREAABG) POC IONIZED CALCIUM (test code = 1.40 MMOL/L 1.12-1.32 H POCCA) POC GLUCOSE (test code = POCGLU) 186 MG/DL 70-110 H HEMOGLOBIN [id number] 21:25:00 Test Item Value Reference Range Interpretation Comments HEMOGLOBIN ABG (test code = HGB/ABG) 9.4 G/DL 11.0-15.0 L [id number] 21:25:00 Test Item Value Reference Range Interpretation Comments HEMATOCRIT (test code = HCT/ABG) 28 % 33.0-45.0 L POC LACTIC [id number] 21:25:00 Test Item Value Reference Range Interpretation Comments POC LACTIC ACID (test code = 1.9 mmol/l 0.9-1.7 H POCLAC) [id number] 20:54:00 Test Item Value Reference Range Interpretation Comments ACT-ISTAT (test code 125 SEC 74-137 N Perform ed by certified = ACTI) 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[facility] POC ARTERIAL BLOOD [id number] 20:47:00 Test Item Value Reference Range Interpretation Comments POC ARTERIAL BLOOD GAS PH (test 7.332 7.35-7.45 L code = POCPHA) POC ARTERIAL BLOOD GAS PCO2 (test 37.5 mmHg 35.0-45 N code = EQQYUA3G) POC TCO2 ARTERIAL (test code = 21.0 POCTCO2) POC ARTERIAL BLOOD GAS PO2 (test 452.9 mmHg 80-100.0 HH code = WGSRD6P) POC HCO3 ARTERIAL (test code = 19.9 MMOL/L 22.0-26.0 L ZNEEAC2L) POC BASE EXCESS (test code = -5.5 MMOL/L -4.0-4.0 L POCBEA) POC O2 SATURATION (test code = 100.0 % 90-100 N POCO2S) BASIC METABOLIC [id number] 20:47:00 Test Item Value Reference Range Interpretation Comments SODIUM (test code = NA/ABG) 142 mmol/L 134-147 N POTASSIUM (test code = K/ABG) 4.4 mmol/L 3.4-5.0 N CHLORIDE (test code = CL/ABG) 114 mmol/L 100-108 H CREATININE ABG (test code = 0.8 mg/dL 0.6-1.0 N CREAABG) POC IONIZED CALCIUM (test code = 1.31 MMOL/L 1.12-1.32 N POCCA) POC GLUCOSE (test code = POCGLU) 147 MG/DL 70-110 H HEMOGLOBIN [id number] 20:47:00 Test Item Value Reference Range Interpretation Comments HEMOGLOBIN ABG (test code = HGB/ABG) 9.3 G/DL 11.0-15.0 L [id number] 20:47:00 Test Item Value Reference Range Interpretation Comments HEMATOCRIT (test code = HCT/ABG) 27 % 33.0-45.0 L POC LACTIC [id number] 20:47:00 Test Item Value Reference Range Interpretation Comments POC LACTIC ACID (test code = 1.8 mmol/l 0.9-1.7 H POCLAC) [id number] 20:23:00 Test Item Value Reference Range Interpretation Comments ACT-ISTAT (test code 119 SEC 74-137 N Perform ed by certified = ACTI) 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[facility] POC ARTERIAL BLOOD [id number] 20:22:00 Test Item Value Reference Range Interpretation Comments POC ARTERIAL BLOOD GAS PH (test 7.455 7.35-7.45 H code = POCPHA) POC ARTERIAL BLOOD GAS PCO2 (test 31.4 mmHg 35.0-45 L code = FTRRXD1R) POC TCO2 ARTERIAL (test code = 23.0 POCTCO2) POC ARTERIAL BLOOD GAS PO2 (test 509.8 mmHg 80-100.0 HH code = NWMAP5A) POC HCO3 ARTERIAL (test code = 22.1 MMOL/L 22.0-26.0 N QMNEHJ1Q) POC BASE EXCESS (test code = -1.5 MMOL/L -4.0-4.0 N POCBEA) POC O2 SATURATION (test code = 100.0 % 90-100 N POCO2S) BASIC METABOLIC [id number] 20:22:00 Test Item Value Reference Range Interpretation Comments SODIUM (test code = NA/ABG) 140 mmol/L 134-147 N POTASSIUM (test code = K/ABG) 5.0 mmol/L 3.4-5.0 N CHLORIDE (test code = CL/ABG) 110 mmol/L 100-108 H CREATININE ABG (test code = 1.0 mg/dL 0.6-1.0 N CREAABG) POC IONIZED CALCIUM (test code = 1.55 MMOL/L 1.12-1.32 H POCCA) POC GLUCOSE (test code = POCGLU) 148 MG/DL 70-110 H HEMOGLOBIN [id number] 20:22:00 Test Item Value Reference Range Interpretation Comments HEMOGLOBIN ABG (test code = HGB/ABG) 7.8 G/DL 11.0-15.0 L [id number] 20:22:00 Test Item Value Reference Range Interpretation Comments HEMATOCRIT (test code = HCT/ABG) 23 % 33.0-45.0 L POC LACTIC [id number] 20:22:00 Test Item Value Reference Range Interpretation Comments POC LACTIC ACID (test code = 2.2 mmol/l 0.9-1.7 H POCLAC) [id number] 19:41:00 Test Item Value Reference Range Interpretation Comments ACT-ISTAT (test code 780 SEC 74-137 H Perform ed by certified = ACTI) 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[facility] POC ARTERIAL BLOOD [id number] 19:30:00 Test Item Value Reference Range Interpretation Comments POC ARTERIAL BLOOD GAS PH (test 7.444 7.35-7.45 N code = POCPHA) POC ARTERIAL BLOOD GAS PCO2 (test 36.0 mmHg 35.0-45 N code = KXZBRG9R) POC TCO2 ARTERIAL (test code = 25.8 POCTCO2) POC ARTERIAL BLOOD GAS PO2 (test 372.6 mmHg 80-100.0 HH code = CUKID4C) POC HCO3 ARTERIAL (test code = 24.7 MMOL/L 22.0-26.0 N VJZOTV3M) POC BASE EXCESS (test code = 0.6 MMOL/L -4.0-4.0 N POCBEA) POC O2 SATURATION (test code = 100.0 % 90-100 N POCO2S) BASIC METABOLIC [id number] 19:30:00 Test Item Value Reference Range Interpretation Comments SODIUM (test code = NA/ABG) 138 mmol/L 134-147 N POTASSIUM (test code = K/ABG) 5.8 mmol/L 3.4-5.0 H CHLORIDE (test code = CL/ABG) 107 mmol/L 100-108 N CREATININE ABG (test code = 1.0 mg/dL 0.6-1.0 CREAABG) POC IONIZED CALCIUM (test code = 1.12 MMOL/L 1.12-1.32 N POCCA) POC GLUCOSE (test code = POCGLU) 164 MG/DL 70-110 H HEMOGLOBIN [id number] 19:30:00 Test Item Value Reference Range Interpretation Comments HEMOGLOBIN ABG (test code = HGB/ABG) 8.0 G/DL 11.0-15.0 L [id number] 19:30:00 Test Item Value Reference Range Interpretation Comments HEMATOCRIT (test code = HCT/ABG) 24 % 33.0-45.0 L POC LACTIC [id number] 19:30:00 Test Item Value Reference Range Interpretation Comments POC LACTIC ACID (test code = 0.7 mmol/l 0.9-1.7 L POCLAC) [id number] 19:17:00 Test Item Value Reference Range Interpretation Comments ACT-ISTAT (test code 793 SEC 74-137 H Perform ed by certified = ACTI) 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[facility] POC ARTERIAL BLOOD [id number] 19:05:00 Test Item Value Reference Range Interpretation Comments POC ARTERIAL BLOOD GAS PH (test 7.465 7.35-7.45 H code = POCPHA) POC ARTERIAL BLOOD GAS PCO2 (test 32.7 mmHg 35.0-45 L code = [id number]) POC TCO2 ARTERIAL (test code = 24.5 POCTCO2) POC ARTERIAL BLOOD GAS PO2 (test 489.6 mmHg 80-100.0 HH code = [id number]) POC HCO3 ARTERIAL (test code = 23.5 MMOL/L 22.0-26.0 N [id number]) POC BASE EXCESS (test code = 0.0 MMOL/L -4.0-4.0 N POCBEA) POC O2 SATURATION (test code = 100.0 % 90-100 N POCO2S) BASIC METABOLIC [id number] 19:05:00 Test Item Value Reference Range Interpretation Comments SODIUM (test code = NA/ABG) 137 mmol/L 134-147 N POTASSIUM (test code = K/ABG) 5.7 mmol/L 3.4-5.0 H CHLORIDE (test code = CL/ABG) 105 mmol/L 100-108 N CREATININE ABG (test code = 0.8 mg/dL 0.6-1.0 N CREAABG) POC IONIZED CALCIUM (test code = 1.06 MMOL/L 1.12-1.32 L POCCA) POC GLUCOSE (test code = POCGLU) 145 MG/DL 70-110 H HEMOGLOBIN [id number] 19:05:00 Test Item Value Reference Range Interpretation Comments HEMOGLOBIN ABG (test code = HGB/ABG) 8.3 G/DL 11.0-15.0 L [id number] 19:05:00 Test Item Value Reference Range Interpretation Comments HEMATOCRIT (test code = HCT/ABG) 24 % 33.0-45.0 L POC LACTIC [id number] 19:05:00 Test Item Value Reference Range Interpretation Comments POC LACTIC ACID (test code = 0.5 mmol/l 0.9-1.7 L POCLAC) [id number] 18:55:00 Test Item Value Reference Range Interpretation Comments ACT-ISTAT (test code 684 SEC 74-137 H Perform ed by certified = ACTI) 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[facility] [facility] POC ARTERIAL BLOOD [id number] 18:49:00 Test Item Value Reference Range Interpretation Comments POC ARTERIAL BLOOD GAS PH (test 7.351 7.35-7.45 N code = POCPHA) POC ARTERIAL BLOOD GAS PCO2 (test 38.8 mmHg 35.0-45 N code = [id number]) POC TCO2 ARTERIAL (test code = 22.6 POCTCO2) POC ARTERIAL BLOOD GAS PO2 (test 395.7 mmHg 80-100.0 HH code = [id number]) POC HCO3 ARTERIAL (test code = 21.5 MMOL/L 22.0-26.0 L [id number]) POC BASE EXCESS (test code = -3.8 MMOL/L -4.0-4.0 N POCBEA) POC O2 SATURATION (test code = 100.0 % 90-100 N POCO2S) BASIC METABOLIC [id number] 18:49:00 Test Item Value Reference Range Interpretation Comments SODIUM (test code = NA/ABG) 140 mmol/L 134-147 N POTASSIUM (test code = K/ABG) 4.4 mmol/L 3.4-5.0 N CHLORIDE (test code = CL/ABG) 110 mmol/L 100-108 H CREATININE ABG (test code = 0.9 mg/dL 0.6-1.0 CREAABG) POC IONIZED CALCIUM (test code = 1.15 MMOL/L 1.12-1.32 N POCCA) POC GLUCOSE (test code = POCGLU) 140 MG/DL 70-110 H HEMOGLOBIN [id number] 18:49:00 Test Item Value Reference Range Interpretation Comments HEMOGLOBIN ABG (test code = 10.6 G/DL 11.0-15.0 L HGB/ABG) [id number] 18:49:00 Test Item Value Reference Range Interpretation Comments HEMATOCRIT (test code = HCT/ABG) 31 % 33.0-45.0 L POC LACTIC [id number] 18:49:00 Test Item Value Reference Range Interpretation Comments POC LACTIC ACID (test code = < 0.3 mmol/l 0.9-1.7 L POCLAC) [id number] 17:45:00 Test Item Value Reference Range Interpretation Comments ACT-ISTAT (test code 131 SEC 74-137 N Perform ed by certified = ACTI) 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[facility] [facility] [facility] POC ARTERIAL BLOOD [id number] 17:42:00 Test Item Value Reference Range Interpretation Comments POC ARTERIAL BLOOD GAS PH (test 7.411 7.35-7.45 N code = POCPHA) POC ARTERIAL BLOOD GAS PCO2 (test 34.4 mmHg 35.0-45 L code = [id number]) POC TCO2 ARTERIAL (test code = 22.9 POCTCO2) POC ARTERIAL BLOOD GAS PO2 (test 427.6 mmHg 80-100.0 HH code = [id number]) POC HCO3 ARTERIAL (test code = 21.8 MMOL/L 22.0-26.0 L [id number]) POC BASE EXCESS (test code = -2.3 MMOL/L -4.0-4.0 N POCBEA) POC O2 SATURATION (test code = 100.0 % 90-100 N POCO2S) BASIC METABOLIC [id number] 17:42:00 Test Item Value Reference Range Interpretation Comments SODIUM (test code = NA/ABG) 142 mmol/L 134-147 N POTASSIUM (test code = K/ABG) 4.2 mmol/L 3.4-5.0 N CHLORIDE (test code = CL/ABG) 110 mmol/L 100-108 H CREATININE ABG (test code = 0.7 mg/dL 0.6-1.0 N CREAABG) POC IONIZED CALCIUM (test code = 1.20 MMOL/L 1.12-1.32 N POCCA) POC GLUCOSE (test code = POCGLU) 105 MG/DL 70-110 N HEMOGLOBIN [id number] 17:42:00 Test Item Value Reference Range Interpretation Comments HEMOGLOBIN ABG (test code = 11.1 G/DL 11.0-15.0 N HGB/ABG) [id number] 17:42:00 Test Item Value Reference Range Interpretation Comments HEMATOCRIT (test code = HCT/ABG) 33 % 33.0-45.0 N POC LACTIC [id number] 17:42:00 Test Item Value Reference Range Interpretation Comments POC LACTIC ACID (test code = < 0.3 mmol/l 0.9-1.7 L POCLAC) CBC W/AUTO [id number] 08:01:00 Test Item Value Reference Range Interpretation Comments WHITE BLOOD CELL (test code = 8.0 x10 3/uL 4.5-11.0 N WBC) RED BLOOD CELL (test code = 3.82 x10 6/uL 3.54-5.02 N RBC) HEMOGLOBIN (test code = HGB) 11.4 g/dL 11.0-15.0 PER RN HEMATOCRIT (test code = HCT) 37.4 % 33.0-45.0 MEAN CELL VOLUME (test code = 98.0 fL 81.0-99.0 MCV) MEAN CELL HGB (test code = MCH) 29.8 pg 27.0-33.0 N MEAN CELL HGB CONCETRATION 30.5 g/dL 33.0-37.0 L (test code = MCHC) RED CELL DISTRIBUTION WIDTH CV 14.6 % 11.5-14.5 H (test code = RDW) RED CELL DISTRIBUTION WIDTH SD 52.6 fL 37.0-54.0 N (test code = RDW-SD) PLATELET COUNT (test code = 271 x10 3/uL 150-400 N PLT) MEAN PLATELET VOLUME (test code 10.0 fL 7.0-9.0 H = MPV) NEUTROPHIL % (test code = NT%) 67.3 % 56.0-77.0 N IMMATURE GRANULOCYTE % (test 0.6 % 0.0-2.0 N code = IG%) LYMPHOCYTE % (test code = LY%) 17.9 % 14.0-32.0 N MONOCYTE % (test code = MO%) 9.0 % 4.8-9.0 N EOSINOPHIL % (test code = EO%) 4.1 % 0.3-3.7 H BASOPHIL % (test code = BA%) 1.1 % 0.0-2.0 N NUCLEATED RBC % (test code = 0.0 % 0-0 N NRBC%) NEUTROPHIL # (test code = NT#) 5.39 x10 3/uL 2.0-7.6 N IMMATURE GRANULOCYTE # (test 0.05 x10 3/uL 0.00-0.03 H code = IG#) LYMPHOCYTE # (test code = LY#) 1.43 x10 3/uL 1.0-3.8 N MONOCYTE # (test code = MO#) 0.72 x10 3/uL 0.1-0.8 N EOSINOPHIL # (test code = EO#) 0.33 x10 3/uL 0.0-0.2 H BASOPHIL # (test code = BA#) 0.09 x10 3/uL 0.0-0.2 N NUCLEATED RBC # (test code = 0.00 x10 3/uL 0.0-0.1 N NRBC#) MANUAL DIFF REQUIRED (test code NO = MDIFF) BASIC METABOLIC [id number] 07:38:00 Test Item Value Reference Range Interpretation Comments SODIUM (test code = 139 mEq/L 134-147 N NA) POTASSIUM (test code 4.8 mEq/L 3.4-5.0 N = K) CHLORIDE (test code 105 mEq/L 100-108 N = CL) CARBON DIOXIDE (test 29 mEq/l 21-33 N code = CO2) ANION GAP (test code 10 0-20 N = GAP) GLUCOSE (test code = 103 mg/dL 77-141 NOTE: N EW NORMAL RANGE GLU) BLOOD UREA NITROGEN 37 mg/dL 7-25 H NOTE: NE W NORMAL RANGE (test code = BUN) GLOMERULAR 35.7 70-80 L The Glomerular FILTRATION RATE Filtration R ate is a (test code = GFR) calculated parameterbased on serum Creatinine, pat ient age and sex. GFR va luesless than 60 mL/min/ 1.73 square meters a re indicative ofCh ronic Kidney Disease. Values less than 15 mL/min/1.73squa re meters indicate Kidney failure. The calculation forGFR is based on the CKD-EPI (2020) calculat ion. This formulais race indifferent and is the recommended for roxana for GFRby the [facility] on for Adults.The GFR will not calculate if th e sex is unknown or if thepatient's ag e is <18 years. CREATININE (test 1.5 mg/dL 0.6-1.3 H code = CREAT) CALCIUM (test code = 9.1 mg/dL 8.0-10.5 N CA) PROTHROMBIN [id number] 07:03:00 Test Item Value Reference Range Interpretation Comments PROTHROMBIN TIME 12.5 SECONDS 9.3-12.9 N PATIENT (test code = [...] (to prevent recurrent infar ct). THROMBOPLASTIN TIME [id number] 07:03:00 Test Item Value Reference Range Interpretation Comments THROMBOPLASTIN TIME 31.9 Seconds 25.0-39.5 N Therape utic Range: PARTIAL (test code = 50.4 - 88.3 Seconds PTT) Effective 01/16/2019 B-TYPE NATRIURETIC [id number] 12:31:00 Test Item Value Reference Range Interpretation Comments B-TYPE NATRIURETIC PEPTIDE (test 143.0 PG/ML 0-100 H code = BNP) PROTHROMBIN [id number] 10:31:00 Test Item Value Reference Range Interpretation Comments PROTHROMBIN TIME 13.4 SECONDS 9.3-12.9 H PATIENT (test code = PTP) INTERNATIONAL NORMAL 1.2 0.8-1.2 N TARGET INR BY RATIO (test [...] l Infarction (to prevent recurrent infar ct). 91 06/21/23 0954THROMBOPLASTIN TIME [id number] 10:31:00 Test Item Value Reference Range Interpretation Comments THROMBOPLASTIN TIME 33.1 Seconds 25.0-39.5 N Therape utic Range: PARTIAL (test code = 50.4 - 88.3 Seconds PTT) Effective 01/16/2019 06/21/23 0954COMPREHENSIVE METABOLIC [id number] 10:13:00 Test Item Value Reference Range Interpretation Comments SODIUM (test code = 133 mEq/L 134-147 L NA) POTASSIUM (test code 4.4 mEq/L 3.4-5.0 N = K) CHLORIDE (test code 106 mEq/L 100-108 N = CL) CARBON DIOXIDE (test 24 mEq/l 21-33 N code = CO2) ANION GAP (test code 8 0-20 N = GAP) GLUCOSE (test code = 185 mg/dL 77-141 H NOTE: N EW NORMAL RANGE GLU) BLOOD UREA NITROGEN 21 mg/dL 7-25 N NOTE: NE W NORMAL RANGE (test code = BUN) GLOMERULAR 38.8 70-80 L The Glomerular FILTRATION RATE Filtration R ate is a (test code = GFR) calculated parameterbased on serum Creatinine, pat ient age and sex. GFR va luesless than 60 mL/min/ 1.73 square meters a re indicative ofCh ronic Kidney Disease. Values less than 15 mL/min/1.73squa re meters indicate Kidney failure. The calculation for GFR is based on the CK D-EPI (2020) calculat ion. This formulais race indifferent and is the recommended for roxana for GFRby the [facility] for Adults.The GFR will not calculate if th e sex is unknown or if thepatient's ag e is <18 years. CREATININE (test 1.4 mg/dL 0.6-1.3 H code = CREAT) TOTAL PROTEIN (test 6.1 g/dL 6.4-8.2 L code = PROT) ALBUMIN (test code = 2.80 g/dL 3.4-5.0 L ALB) CALCIUM (test code = 8.9 mg/dL 8.0-10.5 N CA) BILIRUBIN TOTAL 0.50 mg/dL 0.0-1.0 N (test code = BILT) SGOT/AST (test code 27 IUnit/L 8-34 N NOTE: NE W NORMAL RANGE = AST) SGPT/ALT (test code 29 IUnit/L 10-49 N NOTE: NE W NORMAL RANGE = ALT) ALKALINE PHOSPHATASE 65 IUnit/L 20-125 N TOTAL (test code = ALKP) LIPID PROFILE (CORONARY RISK)[id number] 10:13:00 Test Item Value Reference Range Interpretation Comments TRIGLYCERIDES (test 78 mg/dL 40-150 N code = TRIG) CHOLESTEROL (test 135 mg/dL <200 code = CHOL) CHOLESTEROL/HDL 2.59 RATIO 3.27-4.44 L RISK ASSOCIA ROSA WITH RATIO (test code = CHOL/HDL RATIOS: RISK CHOLHDL) MALE FEMALE1/2 AVERAGE 3.43 3.27AVERAG E 4.97 4.442X AVERAGE 9.55 7.053X AVERAGE 23.39 11.04 NOTE THAT THE REFERENCE VALUE IS RELATEDTO RISK LEVELS RECOMMENDED BY THE NATL.HEART, KVNG G, AND BLOOD INST. HDL CHOLESTEROL 52.2 MG/DL 40-60 N Note silva e in (test code = HDL) REFERENCE RANGE due to change in REAGE NT.HDL Interpretation < 40.0 mg/dL Low (unde sirable, high risk)> 60. 0 mg/dL High (desirable , low risk) Reference interval for he althy adults was esta blished by theNational Cholesterol Edu cation Program (NCEP). LIPOPROTEIN LDL 68.0 mg/dL 0-100 N <100 OPTIMAL 100-129 (test code = LDL) NEAR OPTIM AL/ABOVE [id number] HIGH>BG=497 JOVANY Y HIGH*Guidelines provided by the National Choles terol EducationProgra m Adult Treatment Panel III [id number]%2023-06-21 10:12:00 Test Item Value Reference Range Interpretation Comments HGBA1C% (test code = HGBA1C%) 6.0 %A1C 4.8-6.0 N COVID 19 Asymptomatic IH [id number] 10:00:00 Test Item Value Reference Range Interpretation Comments COVID 19 Asymptomatic Negative Negative A nega tive result is IH AG (test code = presumpti ve and should COVNONPUIAG) be confirmedwit h an FDA authorized mole cular assay, if neces susana forpatient liliana gement.A positive result does not rule out co-inf ections withother patho gens.This test detects ellie th viable (live) and non-viable,SARS -CoV, and SARS-CoV-2. Leeanne t performance dep ends on theamount of vi kana (antigen) in th e sample.This leeanne t has not been FDA cleare d or approved; the t est hasbeen authori zed by FDA under an Em ergency Use Authorizati on(EUA) for use by labo ratories certified under the CLIA thatmeet the requirements to perform moderate, high or waivedcomplexit y tests. CBC W/AUTO [id number] 09:50:00 Test Item Value Reference Range Interpretation Comments WHITE BLOOD CELL (test code = 6.3 x10 3/uL 4.5-11.0 N WBC) RED BLOOD CELL (test code = 2.96 x10 6/uL 3.54-5.02 L RBC) HEMOGLOBIN (test code = HGB) 9.0 g/dL 11.0-15.0 L HEMATOCRIT (test code = HCT) 30.1 % 33.0-45.0 L MEAN CELL VOLUME (test code = 101.7 fL 81.0-99.0 H MCV) MEAN CELL HGB (test code = MCH) 30.4 pg 27.0-33.0 N MEAN CELL HGB CONCETRATION 29.9 g/dL 33.0-37.0 L (test code = MCHC) RED CELL DISTRIBUTION WIDTH CV 14.6 % 11.5-14.5 H (test code = RDW) RED CELL DISTRIBUTION WIDTH SD 54.4 fL 37.0-54.0 H (test code = RDW-SD) PLATELET COUNT (test code = 195 x10 3/uL 150-400 N PLT) MEAN PLATELET VOLUME (test code 9.7 fL 7.0-9.0 H = MPV) NEUTROPHIL % (test code = NT%) 68.2 % 56.0-77.0 N IMMATURE GRANULOCYTE % (test 0.8 % 0.0-2.0 N code = IG%) LYMPHOCYTE % (test code = LY%) 17.2 % 14.0-32.0 N MONOCYTE % (test code = MO%) 8.4 % 4.8-9.0 N EOSINOPHIL % (test code = EO%) 4.3 % 0.3-3.7 H BASOPHIL % (test code = BA%) 1.1 % 0.0-2.0 N NUCLEATED RBC % (test code = 0.0 % 0-0 N NRBC%) NEUTROPHIL # (test code = NT#) 4.29 x10 3/uL 2.0-7.6 N IMMATURE GRANULOCYTE # (test 0.05 x10 3/uL 0.00-0.03 H code = IG#) LYMPHOCYTE # (test code = LY#) 1.08 x10 3/uL 1.0-3.8 N MONOCYTE # (test code = MO#) 0.53 x10 3/uL 0.1-0.8 N EOSINOPHIL # (test code = EO#) 0.27 x10 3/uL 0.0-0.2 H BASOPHIL # (test code = BA#) 0.07 x10 3/uL 0.0-0.2 N NUCLEATED RBC # (test code = 0.00 x10 3/uL 0.0-0.1 N NRBC#) MANUAL DIFF REQUIRED (test code NO = MDIFF) BASIC METABOLIC [id number] 07:28:00 Test Item Value Reference Range Interpretation Comments SODIUM (test code = 139 mEq/L 134-147 N NA) POTASSIUM (test code 4.3 mEq/L 3.4-5.0 N = K) CHLORIDE (test code 104 mEq/L 100-108 N = CL) CARBON DIOXIDE (test 28 mEq/l 21-33 N code = CO2) ANION GAP (test code 12 0-20 N = GAP) GLUCOSE (test code = 146 mg/dL 77-141 H NOTE: N EW NORMAL RANGE GLU) BLOOD UREA NITROGEN 33 mg/dL 7-25 H NOTE: NE W NORMAL RANGE (test code = BUN) GLOMERULAR 38.8 70-80 L The Glomerular FILTRATION RATE Filtration R ate is a (test code = GFR) calculated parameterbased on serum Creatinine, pat ient age and sex. GFR va luesless than 60 mL/min/ 1.73 square meters a re indicative ofCh ronic Kidney Disease. Values less than 15 mL/min/1.73squa re meters indicate Kidney failure. The calculation forGFR is based on the CKD-EPI (2020) calculat ion. This formulais race indifferent and is the recommended for roxana for GFRby the [facility] for Adults.The GFR will not calculate if th e sex is unknown or if thepatient's ag e is <18 years. CREATININE (test 1.4 mg/dL 0.6-1.3 H code = CREAT) CALCIUM (test code = 9.1 mg/dL 8.0-10.5 N CA) BASIC METABOLIC [id number] 18:02:00 Test Item Value Reference Range Interpretation Comments SODIUM (test code = 135 mEq/L 134-147 N NA) POTASSIUM (test code 4.8 mEq/L 3.4-5.0 N = K) CHLORIDE (test code 103 mEq/L 100-108 N = CL) CARBON DIOXIDE (test 27 mEq/l 21-33 N code = CO2) ANION GAP (test code 10 0-20 N = GAP) GLUCOSE (test code = 165 mg/dL 77-141 H NOTE: N EW NORMAL RANGE GLU) BLOOD UREA NITROGEN 29 mg/dL 7-25 H NOTE: NE W NORMAL RANGE (test code = BUN) GLOMERULAR 35.7 70-80 L The Glomerular FILTRATION RATE Filtration R ate is a (test code = GFR) calculated parameterbased on serum Creatinine, pat ient age and sex. GFR va luesless than 60 mL/min/ 1.73 square meters a re indicative ofCh ronic Kidney Disease. Values less than 15 mL/min/1.73squa re meters indicate Kidney failure. The calculation forGFR is based on the CKD-EPI (2020) calculat ion. This formulais race indifferent and is the recommended for roxana for GFRby the Nat n[facility] on for Adults.The GFR will not calculate if th e sex is unknown or if thepatient's ag e is <18 years. CREATININE (test 1.5 mg/dL 0.6-1.3 H code = CREAT) CALCIUM (test code = 9.2 mg/dL 8.0-10.5 N CA) CBC W/AUTO [id number] 08:34:00 Test Item Value Reference Range Interpretation Comments WHITE BLOOD CELL (test code = 8.6 x10 3/uL 4.5-11.0 N WBC) RED BLOOD CELL (test code = 4.19 x10 6/uL 3.54-5.02 N RBC) HEMOGLOBIN (test code = HGB) 12.4 g/dL 11.0-15.0 N HEMATOCRIT (test code = HCT) 40.6 % 33.0-45.0 N MEAN CELL VOLUME (test code = 96.9 fL 81.0-99.0 N MCV) MEAN CELL HGB (test code = MCH) 29.6 pg 27.0-33.0 N MEAN CELL HGB CONCETRATION 30.5 g/dL 33.0-37.0 L (test code = MCHC) RED CELL DISTRIBUTION WIDTH CV 14.5 % 11.5-14.5 N (test code = RDW) RED CELL DISTRIBUTION WIDTH SD 51.1 fL 37.0-54.0 N (test code = RDW-SD) PLATELET COUNT (test code = 284 x10 3/uL 150-400 N PLT) MEAN PLATELET VOLUME (test code 10.1 fL 7.0-9.0 H = MPV) NEUTROPHIL % (test code = NT%) 69.6 % 56.0-77.0 N IMMATURE GRANULOCYTE % (test 0.8 % 0.0-2.0 N code = IG%) LYMPHOCYTE % (test code = LY%) 15.9 % 14.0-32.0 N MONOCYTE % (test code = MO%) 8.9 % 4.8-9.0 N EOSINOPHIL % (test code = EO%) 3.7 % 0.3-3.7 N BASOPHIL % (test code = BA%) 1.1 % 0.0-2.0 N NUCLEATED RBC % (test code = 0.0 % 0-0 N NRBC%) NEUTROPHIL # (test code = NT#) 5.97 x10 3/uL 2.0-7.6 N IMMATURE GRANULOCYTE # (test 0.07 x10 3/uL 0.00-0.03 H code = IG#) LYMPHOCYTE # (test code = LY#) 1.36 x10 3/uL 1.0-3.8 N MONOCYTE # (test code = MO#) 0.76 x10 3/uL 0.1-0.8 N EOSINOPHIL # (test code = EO#) 0.32 x10 3/uL 0.0-0.2 H BASOPHIL # (test code = BA#) 0.09 x10 3/uL 0.0-0.2 N NUCLEATED RBC # (test code = 0.00 x10 3/uL 0.0-0.1 N NRBC#) MANUAL DIFF REQUIRED (test code NO = MDIFF) BASIC METABOLIC [id number] 07:57:00 Test Item Value Reference Range Interpretation Comments SODIUM (test code = 136 mEq/L 134-147 N NA) POTASSIUM (test code 5.2 mEq/L 3.4-5.0 H = K) CHLORIDE (test code 105 mEq/L 100-108 N = CL) CARBON DIOXIDE (test 28 mEq/l 21-33 N code = CO2) ANION GAP (test code 8 0-20 N = GAP) GLUCOSE (test code = 111 mg/dL 77-141 N NOTE: N EW NORMAL RANGE GLU) BLOOD UREA NITROGEN 28 mg/dL 7-25 H NOTE: NE W NORMAL RANGE (test code = BUN) GLOMERULAR 42.4 70-80 L The Glomerular FILTRATION RATE Filtration R ate is a (test code = GFR) calculated parameterbased on serum Creatinine, pat ient age and sex. GFR va luesless than 60 mL/min/ 1.73 square meters a re indicative ofCh ronic Kidney Disease. Values less than 15 mL/min/1.73squa re meters indicate Kidney failure. The calculation forGFR is based on the CKD-EPI (2020) calculat ion. This formulais race indifferent and is the recommended for roxana for GFRby the [facility]io n[facility] on for Adults.The GFR will not calculate if th e sex is unknown or if thepatient's ag e is <18 years. CREATININE (test 1.3 mg/dL 0.6-1.3 N code = CREAT) CALCIUM (test code = 9.3 mg/dL 8.0-10.5 N CA) [id number] 07:57:00 Test Item Value Reference Range Interpretation Comments MAGNESIUM (test code = 1.86 mg/dL 1.6-2.6 N NOTE: NEW NORMAL MAG) RANGE BASIC METABOLIC [id number] 17:47:00 Test Item Value Reference Range Interpretation Comments SODIUM (test code = 133 mEq/L 134-147 L NA) POTASSIUM (test code 5.2 mEq/L 3.4-5.0 H = K) CHLORIDE (test code 105 mEq/L 100-108 N = CL) CARBON DIOXIDE (test 26 mEq/l 21-33 N code = CO2) ANION GAP (test code 7 0-20 N = GAP) GLUCOSE (test code = 111 mg/dL 77-141 N NOTE: N EW NORMAL RANGE GLU) BLOOD UREA NITROGEN 26 mg/dL 7-25 H NOTE: NE W NORMAL RANGE (test code = BUN) GLOMERULAR 42.4 70-80 L The Glomerular FILTRATION RATE Filtration R ate is a (test code = GFR) calculated parameterbased on serum Creatinine, pat ient age and sex. GFR va luesless than 60 mL/min/ 1.73 square meters a re indicative ofCh ronic Kidney Disease. Values less than 15 mL/min/1.73squa re meters indicate Kidney failure. The calculation forGFR is based on the CKD-EPI (2020) calculat ion. This formulais race indifferent and is the recommended for roxana for G[facility]by the [facility].The GFR will not calculate if th e sex is unknown or if thepatient's ag e is <18 years. CREATININE (test 1.3 mg/dL 0.6-1.3 N code = CREAT) CALCIUM (test code = 8.8 mg/dL 8.0-10.5 N CA) CBC W/AUTO [id number] 08:46:00 Test Item Value Reference Range Interpretation Comments WHITE BLOOD CELL (test code = 9.0 x10 3/uL 4.5-11.0 N WBC) RED BLOOD CELL (test code = 4.25 x10 6/uL 3.54-5.02 N RBC) HEMOGLOBIN (test code = HGB) 12.7 g/dL 11.0-15.0 N HEMATOCRIT (test code = HCT) 42.0 % 33.0-45.0 N MEAN CELL VOLUME (test code = 98.8 fL 81.0-99.0 N MCV) MEAN CELL HGB (test code = MCH) 29.9 pg 27.0-33.0 N MEAN CELL HGB CONCETRATION 30.2 g/dL 33.0-37.0 L (test code = MCHC) RED CELL DISTRIBUTION WIDTH CV 14.6 % 11.5-14.5 H (test code = RDW) RED CELL DISTRIBUTION WIDTH SD 53.8 fL 37.0-54.0 N (test code = RDW-SD) PLATELET COUNT (test code = 289 x10 3/uL 150-400 N PLT) MEAN PLATELET VOLUME (test code 10.2 fL 7.0-9.0 H = MPV) NEUTROPHIL % (test code = NT%) 69.6 % 56.0-77.0 N IMMATURE GRANULOCYTE % (test 0.8 % 0.0-2.0 N code = IG%) LYMPHOCYTE % (test code = LY%) 15.1 % 14.0-32.0 N MONOCYTE % (test code = MO%) 8.7 % 4.8-9.0 N EOSINOPHIL % (test code = EO%) 4.5 % 0.3-3.7 H BASOPHIL % (test code = BA%) 1.3 % 0.0-2.0 N NUCLEATED RBC % (test code = 0.0 % 0-0 N NRBC%) NEUTROPHIL # (test code = NT#) 6.24 x10 3/uL 2.0-7.6 N IMMATURE GRANULOCYTE # (test 0.07 x10 3/uL 0.00-0.03 H code = IG#) LYMPHOCYTE # (test code = LY#) 1.35 x10 3/uL 1.0-3.8 N MONOCYTE # (test code = MO#) 0.78 x10 3/uL 0.1-0.8 N EOSINOPHIL # (test code = EO#) 0.40 x10 3/uL 0.0-0.2 H BASOPHIL # (test code = BA#) 0.12 x10 3/uL 0.0-0.2 N NUCLEATED RBC # (test code = 0.00 x10 3/uL 0.0-0.1 N NRBC#) MANUAL DIFF REQUIRED (test code NO = MDIFF) BASIC METABOLIC [id number] 08:28:00 Test Item Value Reference Range Interpretation Comments SODIUM (test code = 137 mEq/L 134-147 N NA) POTASSIUM (test code 5.6 mEq/L 3.4-5.0 H = K) CHLORIDE (test code 107 mEq/L 100-108 N = CL) CARBON DIOXIDE (test 28 mEq/l 21-33 N code = CO2) ANION GAP (test code 8 0-20 N = GAP) GLUCOSE (test code = 119 mg/dL 77-141 N NOTE: N EW NORMAL RANGE GLU) BLOOD UREA NITROGEN 31 mg/dL 7-25 H NOTE: NE W NORMAL RANGE (test code = BUN) GLOMERULAR 42.4 70-80 L The Glomerular FILTRATION RATE Filtration R ate is a (test code = GFR) calculated parameterbased on serum Creatinine, pat ient age and sex. GFR va luesless than 60 mL/min/ 1.73 square meters a re indicative ofCh ronic Kidney Disease. Values less than 15 mL/min/1.73squa re meters indicate Kidney failure. The calculation forGFR is based on the CKD-EPI (2020) calculat ion. This formulais race indifferent and is the recommended for roxana for GFRby the [facility] Found[facility] on for Adults.The GFR will not calculate if th e sex is unknown or if thepatient's ag e is <18 years. CREATININE (test 1.3 mg/dL 0.6-1.3 N code = CREAT) CALCIUM (test code = 9.7 mg/dL 8.0-10.5 N CA) [id number] 08:28:00 Test Item Value Reference Range Interpretation Comments MAGNESIUM (test code = 1.83 mg/dL 1.6-2.6 N NOTE: NEW NORMAL MAG) RANGE BASIC METABOLIC [id number] 16:53:00 Test Item Value Reference Range Interpretation Comments SODIUM (test code = 133 mEq/L 134-147 L NA) POTASSIUM (test code 5.6 mEq/L 3.4-5.0 H = K) CHLORIDE (test code 106 mEq/L 100-108 N = CL) CARBON DIOXIDE (test 24 mEq/l 21-33 N code = CO2) ANION GAP (test code 9 0-20 N = GAP) GLUCOSE (test code = 101 mg/dL 77-141 N NOTE: N EW NORMAL RANGE GLU) BLOOD UREA NITROGEN 21 mg/dL 7-25 N NOTE: NE W NORMAL RANGE (test code = BUN) GLOMERULAR 38.8 70-80 L The Glomerular FILTRATION RATE Filtration R ate is a (test code = GFR) calculated parameterbased on serum Creatinine, pat ient age and sex. GFR va luesless than 60 mL/min/ 1.73 square meters a re indicative ofCh ronic Kidney Disease. Values less than 15 mL/min/1.73squa re meters indicate Kidney failure. The calculation forGFR is based on the CKD-EPI (2020) calculat ion. This formulais race indifferent and is the recommended for roxana for GFRby the [facility] Found[facility] on for Adults.The GFR will not calculate if th e sex is unknown or if thepatient's ag e is <18 years. CREATININE (test 1.4 mg/dL 0.6-1.3 H code = CREAT) CALCIUM (test code = 9.2 mg/dL 8.0-10.5 N CA) BASIC METABOLIC [id number] 08:20:00 Test Item Value Reference Range Interpretation Comments SODIUM (test code = 138 mEq/L 134-147 N NA) POTASSIUM (test code 5.2 mEq/L 3.4-5.0 H = K) CHLORIDE (test code 108 mEq/L 100-108 N = CL) CARBON DIOXIDE (test 28 mEq/l 21-33 N code = CO2) ANION GAP (test code 7 0-20 N = GAP) GLUCOSE (test code = 115 mg/dL 77-141 N NOTE: N EW NORMAL RANGE GLU) BLOOD UREA NITROGEN 29 mg/dL 7-25 H NOTE: NE W NORMAL RANGE (test code = BUN) GLOMERULAR 51.8 70-80 L The Glomerular FILTRATION RATE Filtration R ate is a (test code = GFR) calculated parameterbased on serum Creatinine, pat ient age and sex. GFR va luesless than 60 mL/min/ 1.73 square meters a re indicative ofCh ronic Kidney Disease. Values less than 15 mL/min/1.73squa re meters indicate Kidney failure. The calculation forGFR is based on the CKD-EPI (2020) calculat ion. This formulais race indifferent and is the recommended for roxana for GFRby the [facility] on for Adults.The GFR will not calculate if th e sex is unknown or if thepatient's ag e is <18 years. CREATININE (test 1.1 mg/dL 0.6-1.3 N code = CREAT) CALCIUM (test code = 9.4 mg/dL 8.0-10.5 N CA) [id number] 08:20:00 Test Item Value Reference Range Interpretation Comments MAGNESIUM (test code = 1.89 mg/dL 1.6-2.6 N NOTE: NEW NORMAL MAG) RANGE CBC W/AUTO [id number] 08:03:00 Test Item Value Reference Range Interpretation Comments WHITE BLOOD CELL (test code = 8.6 x10 3/uL 4.5-11.0 N WBC) RED BLOOD CELL (test code = 4.09 x10 6/uL 3.54-5.02 N RBC) HEMOGLOBIN (test code = HGB) 12.2 g/dL 11.0-15.0 N HEMATOCRIT (test code = HCT) 41.3 % 33.0-45.0 N MEAN CELL VOLUME (test code = 101.0 fL 81.0-99.0 H MCV) MEAN CELL HGB (test code = MCH) 29.8 pg 27.0-33.0 N MEAN CELL HGB CONCETRATION 29.5 g/dL 33.0-37.0 L (test code = MCHC) RED CELL DISTRIBUTION WIDTH CV 14.6 % 11.5-14.5 H (test code = RDW) RED CELL DISTRIBUTION WIDTH SD 54.9 fL 37.0-54.0 H (test code = RDW-SD) PLATELET COUNT (test code = 294 x10 3/uL 150-400 N PLT) MEAN PLATELET VOLUME (test code 10.4 fL 7.0-9.0 H = MPV) NEUTROPHIL % (test code = NT%) 69.7 % 56.0-77.0 N IMMATURE GRANULOCYTE % (test 0.8 % 0.0-2.0 N code = IG%) LYMPHOCYTE % (test code = LY%) 14.1 % 14.0-32.0 N MONOCYTE % (test code = MO%) 10.2 % 4.8-9.0 H EOSINOPHIL % (test code = EO%) 4.1 % 0.3-3.7 H BASOPHIL % (test code = BA%) 1.1 % 0.0-2.0 N NUCLEATED RBC % (test code = 0.0 % 0-0 N NRBC%) NEUTROPHIL # (test code = NT#) 5.97 x10 3/uL 2.0-7.6 N IMMATURE GRANULOCYTE # (test 0.07 x10 3/uL 0.00-0.03 H code = IG#) LYMPHOCYTE # (test code = LY#) 1.21 x10 3/uL 1.0-3.8 N MONOCYTE # (test code = MO#) 0.87 x10 3/uL 0.1-0.8 H EOSINOPHIL # (test code = EO#) 0.35 x10 3/uL 0.0-0.2 H BASOPHIL # (test code = BA#) 0.09 x10 3/uL 0.0-0.2 N NUCLEATED RBC # (test code = 0.00 x10 3/uL 0.0-0.1 N NRBC#) MANUAL DIFF REQUIRED (test code NO = MDIFF) - US RETROPERITONEAL [id number] 09:07:00 [facility] 1945 Sex: F Name: BREA RODRIGUEZ [facility] [place] : 1945 Age/S: 77 / F [address] [place] [address] BlvdUnit #: [id number] Loc: [place] [address] Phys: Usha Berrios MD Acct: [id number] Dis Date: Status: ADM IN PHONE #: [phone] Exam Date: 06/15/2023905 FAX #: [phone] Reason: renal failure EXAMS: CPT CODE: [id number] US RETROPERITONEAL COM [id number] ULTRASOUND: - US RETROPERITONEAL COM History: Renal failure Comparison: No recent studies.. B-mode/Hendrix scale imaging with color Doppler perfusion imaging and spectral analysis was performed. The right kidney is 9 x 4.2 x 4.6 cm with good perfusion on Doppler. The lower pole contains a simple 3.1 cm cyst with no further follow-up needed. Homogeneous cortical appearance. On others tiny cysts may be present also, simple. No obstruction or stones evident. The left kidney is 10.5 x 5 x 4.2 cm with homogeneous cortical echogenicity. No shadowing stonesor obstruction. Good perfusion on Doppler. Bladder partially filled. No ascites found. Aorta and ret roperitoneum limited. Impression: Symmetric renal appearance with no obstruction. Tiny right renal cysts, simple with no further follow-up needed. Location: [facility] at 0907 Reported and signed by: Alf Banks M.D. CC: Usha Berrios MD; Shahnaz Miller MD Technologist: Inés Mendosa RDMS(AB)(OB) Trnscb Date/Time: 06/15/2023(906) [id number] Orig Print D/T: S: 06/15/2023 (0910) Probe: PAGE 1 Signed ReportCBC W/AUTO [id number] 08:14:00 Test Item Value Reference Range Interpretation Comments WHITE BLOOD CELL (test code = 9.5 x10 3/uL 4.5-11.0 N WBC) RED BLOOD CELL (test code = 3.90 x10 6/uL 3.54-5.02 N RBC) HEMOGLOBIN (test code = HGB) 11.8 g/dL 11.0-15.0 N HEMATOCRIT (test code = HCT) 38.7 % 33.0-45.0 N MEAN CELL VOLUME (test code = 99.2 fL 81.0-99.0 H MCV) MEAN CELL HGB (test code = MCH) 30.3 pg 27.0-33.0 N MEAN CELL HGB CONCETRATION 30.5 g/dL 33.0-37.0 L (test code = MCHC) RED CELL DISTRIBUTION WIDTH CV 14.7 % 11.5-14.5 H (test code = RDW) RED CELL DISTRIBUTION WIDTH SD 53.5 fL 37.0-54.0 N (test code = RDW-SD) PLATELET COUNT (test code = 249 x10 3/uL 150-400 N PLT) MEAN PLATELET VOLUME (test code 10.5 fL 7.0-9.0 H = MPV) NEUTROPHIL % (test code = NT%) 71.8 % 56.0-77.0 N IMMATURE GRANULOCYTE % (test 0.6 % 0.0-2.0 N code = IG%) LYMPHOCYTE % (test code = LY%) 15.0 % 14.0-32.0 N MONOCYTE % (test code = MO%) 8.1 % 4.8-9.0 N EOSINOPHIL % (test code = EO%) 3.8 % 0.3-3.7 H BASOPHIL % (test code = BA%) 0.7 % 0.0-2.0 N NUCLEATED RBC % (test code = 0.0 % 0-0 N NRBC%) NEUTROPHIL # (test code = NT#) 6.79 x10 3/uL 2.0-7.6 N IMMATURE GRANULOCYTE # (test 0.06 x10 3/uL 0.00-0.03 H code = IG#) LYMPHOCYTE # (test code = LY#) 1.42 x10 3/uL 1.0-3.8 N MONOCYTE # (test code = MO#) 0.77 x10 3/uL 0.1-0.8 N EOSINOPHIL # (test code = EO#) 0.36 x10 3/uL 0.0-0.2 H BASOPHIL # (test code = BA#) 0.07 x10 3/uL 0.0-0.2 N NUCLEATED RBC # (test code = 0.00 x10 3/uL 0.0-0.1 N NRBC#) MANUAL DIFF REQUIRED (test code NO = MDIFF) UR PROTEIN [id number] 07:38:00 Test Item Value Reference Range Interpretation Comments UR PROTEIN RANDOM (test code = < 6 mg/dL PROTU) UR CREATININE [id number] 07:38:00 Test Item Value Reference Range Interpretation Comments UR CREATININE 28.5 mg/dL The Reference Range and RANDOM (test code Method Per formance = CREATU) specificationsh ave not been establishe d for this fluid. The test resultshould be correlated into the clinical contex t forinterpretati on. BASIC METABOLIC [id number] 07:17:00 Test Item Value Reference Range Interpretation Comments SODIUM (test code = 141 mEq/L 134-147 N NA) POTASSIUM (test code 4.7 mEq/L 3.4-5.0 N = K) CHLORIDE (test code 108 mEq/L 100-108 N = CL) CARBON DIOXIDE (test 28 mEq/l 21-33 N code = CO2) ANION GAP (test code 10 0-20 N = GAP) GLUCOSE (test code = 107 mg/dL 77-141 N NOTE: N EW NORMAL RANGE GLU) BLOOD UREA NITROGEN 33 mg/dL 7-25 H NOTE: NE W NORMAL RANGE (test code = BUN) GLOMERULAR 51.8 70-80 L The Glomerular FILTRATION RATE Filtration R ate is a (test code = GFR) calculated parameterbased on serum Creatinine, pat ient age and sex. GFR va luesless than 60 mL/min/ 1.73 square meters a re indicative ofCh ronic Kidney Disease. Values less than 15 mL/min/1.73squa re meters indicate Kidney failure. The calculation forGFR is based on the CKD-EPI (2020) calculat ion. This formulais race indifferent and is the recommended for roxana for GFRby the [facility] on for Adults.The GFR will not calculate if th e sex is unknown or if thepatient's ag e is <18 years. CREATININE (test 1.1 mg/dL 0.6-1.3 N code = CREAT) CALCIUM (test code = 9.2 mg/dL 8.0-10.5 N CA) CBC W/AUTO [id number] 08:42:00 Test Item Value Reference Range Interpretation Comments WHITE BLOOD CELL (test code = 9.8 x10 3/uL 4.5-11.0 N WBC) RED BLOOD CELL (test code = 3.88 x10 6/uL 3.54-5.02 N RBC) HEMOGLOBIN (test code = HGB) 11.7 g/dL 11.0-15.0 N HEMATOCRIT (test code = HCT) 38.3 % 33.0-45.0 N MEAN CELL VOLUME (test code = 98.7 fL 81.0-99.0 N MCV) MEAN CELL HGB (test code = MCH) 30.2 pg 27.0-33.0 N MEAN CELL HGB CONCETRATION 30.5 g/dL 33.0-37.0 L (test code = MCHC) RED CELL DISTRIBUTION WIDTH CV 14.8 % 11.5-14.5 H (test code = RDW) RED CELL DISTRIBUTION WIDTH SD 53.5 fL 37.0-54.0 N (test code = RDW-SD) PLATELET COUNT (test code = 252 x10 3/uL 150-400 N PLT) MEAN PLATELET VOLUME (test code 10.1 fL 7.0-9.0 H = MPV) NEUTROPHIL % (test code = NT%) 72.4 % 56.0-77.0 N IMMATURE GRANULOCYTE % (test 0.7 % 0.0-2.0 N code = IG%) LYMPHOCYTE % (test code = LY%) 14.4 % 14.0-32.0 N MONOCYTE % (test code = MO%) 8.1 % 4.8-9.0 N EOSINOPHIL % (test code = EO%) 3.5 % 0.3-3.7 N BASOPHIL % (test code = BA%) 0.9 % 0.0-2.0 N NUCLEATED RBC % (test code = 0.0 % 0-0 N NRBC%) NEUTROPHIL # (test code = NT#) 7.11 x10 3/uL 2.0-7.6 N IMMATURE GRANULOCYTE # (test 0.07 x10 3/uL 0.00-0.03 H code = IG#) LYMPHOCYTE # (test code = LY#) 1.41 x10 3/uL 1.0-3.8 N MONOCYTE # (test code = MO#) 0.79 x10 3/uL 0.1-0.8 N EOSINOPHIL # (test code = EO#) 0.34 x10 3/uL 0.0-0.2 H BASOPHIL # (test code = BA#) 0.09 x10 3/uL 0.0-0.2 N NUCLEATED RBC # (test code = 0.00 x10 3/uL 0.0-0.1 N NRBC#) MANUAL DIFF REQUIRED (test code NO = MDIFF) BASIC METABOLIC [id number] 07:39:00 Test Item Value Reference Range Interpretation Comments SODIUM (test code = 141 mEq/L 134-147 N NA) POTASSIUM (test code 4.9 mEq/L 3.4-5.0 N = K) CHLORIDE (test code 107 mEq/L 100-108 N = CL) CARBON DIOXIDE (test 27 mEq/l 21-33 N code = CO2) ANION GAP (test code 12 0-20 N = GAP) GLUCOSE (test code = 125 mg/dL 77-141 N NOTE: N EW NORMAL RANGE GLU) BLOOD UREA NITROGEN 37 mg/dL 7-25 H NOTE: NE W NORMAL RANGE (test code = BUN) GLOMERULAR 35.7 70-80 L The Glomerular FILTRATION RATE Filtration R ate is a (test code = GFR) calculated parameterbased on serum Creatinine, pat ient age and sex. GFR va luesless than 60 mL/min/ 1.73 square meters a re indicative ofCh ronic Kidney Disease. Values less than 15 mL/min/1.73squa re meters indicate Kidney failure. The calculation forGFR is based on the CKD-EPI (202) calculat ion. This formulais race indifferent and is the recommended for roxana for GFRby the [facility] on for Adults.The GFR will not calculate if th e sex is unknown or if thepatient's ag e is <18 years. CREATININE (test 1.5 mg/dL 0.6-1.3 H code = CREAT) CALCIUM (test code = 9.2 mg/dL 8.0-10.5 N CA) BASIC METABOLIC [id number] 07:06:00 Test Item Value Reference Range Interpretation Comments SODIUM (test code = 137 mEq/L 134-147 N NA) POTASSIUM (test code 4.7 mEq/L 3.4-5.0 N = K) CHLORIDE (test code 106 mEq/L 100-108 N = CL) CARBON DIOXIDE (test 26 mEq/l 21-33 N code = CO2) ANION GAP (test code 10 0-20 N = GAP) GLUCOSE (test code = 133 mg/dL 77-141 N NOTE: N EW NORMAL RANGE GLU) BLOOD UREA NITROGEN 27 mg/dL 7-25 H NOTE: NE W NORMAL RANGE (test code = BUN) GLOMERULAR 46.6 70-80 L The Glomerular FILTRATION RATE Filtration R ate is a (test code = GFR) calculated parameterbased on serum Creatinine, pat ient age and sex. GFR va luesless than 60 mL/min/ 1.73 square meters a re indicative ofCh ronic Kidney Disease. Values less than 15 mL/min/1.73squa re meters indicate Kidney failure. The calculation forGFR is based on the CKD-EPI (202) calculat ion. This formulais race indifferent and is the recommended for roxana for GFRby the [facility] on for Adults.The GFR will not calculate if th e sex is unknown or if thepatient's ag e is <18 years. CREATININE (test 1.2 mg/dL 0.6-1.3 N code = CREAT) CALCIUM (test code = 9.4 mg/dL 8.0-10.5 N CA) CBC W/AUTO [id number] 05:55:00 Test Item Value Reference Range Interpretation Comments WHITE BLOOD CELL (test code = 9.5 x10 3/uL 4.5-11.0 N WBC) RED BLOOD CELL (test code = 4.05 x10 6/uL 3.54-5.02 N RBC) HEMOGLOBIN (test code = HGB) 12.1 g/dL 11.0-15.0 N HEMATOCRIT (test code = HCT) 39.6 % 33.0-45.0 N MEAN CELL VOLUME (test code = 97.8 fL 81.0-99.0 N MCV) MEAN CELL HGB (test code = MCH) 29.9 pg 27.0-33.0 N MEAN CELL HGB CONCETRATION 30.6 g/dL 33.0-37.0 L (test code = MCHC) RED CELL DISTRIBUTION WIDTH CV 14.9 % 11.5-14.5 H (test code = RDW) RED CELL DISTRIBUTION WIDTH SD 53.3 fL 37.0-54.0 N (test code = RDW-SD) PLATELET COUNT (test code = 255 x10 3/uL 150-400 N PLT) MEAN PLATELET VOLUME (test code 9.8 fL 7.0-9.0 H = MPV) NEUTROPHIL % (test code = NT%) 68.5 % 56.0-77.0 N IMMATURE GRANULOCYTE % (test 0.9 % 0.0-2.0 N code = IG%) LYMPHOCYTE % (test code = LY%) 16.4 % 14.0-32.0 N MONOCYTE % (test code = MO%) 8.5 % 4.8-9.0 N EOSINOPHIL % (test code = EO%) 4.6 % 0.3-3.7 H BASOPHIL % (test code = BA%) 1.1 % 0.0-2.0 N NUCLEATED RBC % (test code = 0.0 % 0-0 N NRBC%) NEUTROPHIL # (test code = NT#) 6.49 x10 3/uL 2.0-7.6 N IMMATURE GRANULOCYTE # (test 0.09 x10 3/uL 0.00-0.03 H code = IG#) LYMPHOCYTE # (test code = LY#) 1.56 x10 3/uL 1.0-3.8 N MONOCYTE # (test code = MO#) 0.81 x10 3/uL 0.1-0.8 H EOSINOPHIL # (test code = EO#) 0.44 x10 3/uL 0.0-0.2 H BASOPHIL # (test code = BA#) 0.10 x10 3/uL 0.0-0.2 N NUCLEATED RBC # (test code = 0.00 x10 3/uL 0.0-0.1 N NRBC#) MANUAL DIFF REQUIRED (test code NO = MDIFF) GLUCOSE [id number] 22:01:00 Test Item Value Reference Range Interpretation Comments GLUCOSE BEDSIDE (test 144 MG/DL 70-110 H Perfor med by certified code = GLUBED) 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[facility] CBC W/AUTO [id number] 08:35:00 Test Item Value Reference Range Interpretation Comments WHITE BLOOD CELL (test code = 9.6 x10 3/uL 4.5-11.0 N WBC) RED BLOOD CELL (test code = 4.66 x10 6/uL 3.54-5.02 N RBC) HEMOGLOBIN (test code = HGB) 13.8 g/dL 11.0-15.0 N HEMATOCRIT (test code = HCT) 45.5 % 33.0-45.0 H MEAN CELL VOLUME (test code = 97.6 fL 81.0-99.0 N MCV) MEAN CELL HGB (test code = MCH) 29.6 pg 27.0-33.0 N MEAN CELL HGB CONCETRATION 30.3 g/dL 33.0-37.0 L (test code = MCHC) RED CELL DISTRIBUTION WIDTH CV 14.8 % 11.5-14.5 H (test code = RDW) RED CELL DISTRIBUTION WIDTH SD 53.3 fL 37.0-54.0 N (test code = RDW-SD) PLATELET COUNT (test code = 284 x10 3/uL 150-400 N PLT) MEAN PLATELET VOLUME (test code 10.0 fL 7.0-9.0 H = MPV) NEUTROPHIL % (test code = NT%) 64.8 % 56.0-77.0 N IMMATURE GRANULOCYTE % (test 0.8 % 0.0-2.0 N code = IG%) LYMPHOCYTE % (test code = LY%) 20.9 % 14.0-32.0 N MONOCYTE % (test code = MO%) 8.1 % 4.8-9.0 N EOSINOPHIL % (test code = EO%) 4.4 % 0.3-3.7 H BASOPHIL % (test code = BA%) 1.0 % 0.0-2.0 N NUCLEATED RBC % (test code = 0.0 % 0-0 N NRBC%) NEUTROPHIL # (test code = NT#) 6.19 x10 3/uL 2.0-7.6 N IMMATURE GRANULOCYTE # (test 0.08 x10 3/uL 0.00-0.03 H code = IG#) LYMPHOCYTE # (test code = LY#) 2.00 x10 3/uL 1.0-3.8 N MONOCYTE # (test code = MO#) 0.77 x10 3/uL 0.1-0.8 N EOSINOPHIL # (test code = EO#) 0.42 x10 3/uL 0.0-0.2 H BASOPHIL # (test code = BA#) 0.10 x10 3/uL 0.0-0.2 N NUCLEATED RBC # (test code = 0.00 x10 3/uL 0.0-0.1 N NRBC#) MANUAL DIFF REQUIRED (test code NO = MDIFF) BASIC METABOLIC [id number] 08:21:00 Test Item Value Reference Range Interpretation Comments SODIUM (test code = 140 mEq/L 134-147 N NA) POTASSIUM (test code 4.7 mEq/L 3.4-5.0 N = K) CHLORIDE (test code 107 mEq/L 100-108 N = CL) CARBON DIOXIDE (test 24 mEq/l 21-33 N code = CO2) ANION GAP (test code 14 0-20 N = GAP) GLUCOSE (test code = 139 mg/dL 77-141 N NOTE: N EW NORMAL RANGE GLU) BLOOD UREA NITROGEN 19 mg/dL 7-25 N NOTE: NE W NORMAL RANGE (test code = BUN) GLOMERULAR 58.0 70-80 L The Glomerular FILTRATION RATE Filtration R ate is a (test code = GFR) calculated parameterbased on serum Creatinine, pat ient age and sex. GFR va luesless than 60 mL/min/ 1.73 square meters a re indicative ofCh ronic Kidney Disease. Values less than 15 mL/min/1.73squa re meters indicate Kidney failure. The calculation forGFR is based on the CKD-EPI (2020) calculat ion. This formulais race indifferent and is the recommended for roxana for GFRby the [facility] n[facility] Kidney Foundati on for Adults.The GFR will not calculate if th e sex is unknown or if thepatient's ag e is <18 years. CREATININE (test 1.0 mg/dL 0.6-1.3 N code = CREAT) CALCIUM (test code = 9.5 mg/dL 8.0-10.5 N CA) LIPID PROFILE (CORONARY RISK)[id number] 08:21:00 Test Item Value Reference Range Interpretation Comments TRIGLYCERIDES (test 144 mg/dL 40-150 N code = TRIG) CHOLESTEROL (test 192 mg/dL <200 code = CHOL) CHOLESTEROL/HDL 3.38 RATIO 3.27-4.44 N RISK ASSOCIA ROSA WITH RATIO (test code = CHOL/HDL RATIOS: RISK CHOLHDL) MALE FEMALE1/2 AVERAGE 3.43 3.27AVERAGE 4.9 7 4.442X AVERAGE 9.55 7.053X AVERAGE 23.39 11.04 NOTE THAT THE REFERENCE VALUE IS RELATEDTO RISK LEVELS RECOMMENDED BY THE NATL.HEART, KVNG G, AND BLOOD INST. HDL CHOLESTEROL 56.8 MG/DL 40-60 N Note silva e in (test code = HDL) REFERENCE RANGE due to change in REAGENT.HDL Interpretation < 40.0 mg/dL Low (undesirable, h igh risk)> 60.0 mg/ dL High (desirable, low risk) Reference inter ti for healthy adults was established by theNational Cholesterol Edu cation Program (NCEP). LIPOPROTEIN LDL 127.0 mg/dL 0-100 H <100 OPTIMAL 100-129 (test code = LDL) NEAR OPTIM AL/ABOVE [id number] 89 HIGH>JD=790 JOVANY Y HIGH*Guidelines provided by the National Choles terol EducationProgra m Adult Treatment Panel III [id number] 08:21:00 Test Item Value Reference Range Interpretation Comments MAGNESIUM (test code = 1.68 mg/dL 1.6-2.6 N NOTE: NEW NORMAL MAG) RANGE PROTHROMBIN [id number] 07:17:00 Test Item Value Reference Range Interpretation Comments PROTHROMBIN TIME 12.1 SECONDS 9.3-12.9 N PATIENT (test code = [...] l Infarction (to prevent recurrent infar ct). UA RFLX MICR CULT IF [id number] 07:12:00 Test Item Value Reference Range Interpretation Comments UA COLOR (test code = COLU) STRAW YEL/STRAW UA APPEARANCE (test code = APPU) CLEAR CLEAR UA GLUCOSE DIPSTICK (test code = NEGATIVE NEGATIVE DGLUU) UA BILIRUBIN DIPSTICK (test code NEGATIVE NEGATIVE = BILU) UA KETONE DIPSTICK (test code = NEGATIVE NEGATIVE KETU) UA SPECIFIC GRAVITY (test code = 1.008 1.005-1.030 N SGU) UA BLOOD DIPSTICK (test code = NEGATIVE NEGATIVE AARON) UA PH DIPSTICK (test code = LIZETTE) 6.0 5.0-7.0 N UA PROTEIN DIPSTICK (test code = NEGATIVE NEGATIVE PROU) UA UROBILINIOGEN DIPSTICK (test 0.2 mg/dL 0.2-1.0 code = URO) UA NITRITE DIPSTICK (test code = NEGATIVE NEGATIVE ALY) UA LEUKOCYTE ESTERASE DIPSTICK NEGATIVE NEGATIVE (test code = LEUU) UA WBC (test code = WBCU) 0-3 WBC/HPF 0-3 UA RBC (test code = RBCU) 0-3 RBC/HPF 0-3 UA WBC NO REFLEX (test code = 0-3 WBC/HPF 0-3 WBCUCL) UA BACTERIA (test code = BACU) TRACE /HPF NONE SEEN UA SQUAMOUS CELLS (test code = 0-5 /HPF NONE SEEN SQU) UA MUCUS (test code = MUCU) TRACE /LPF NONE SEEN Indication for culture: Flank PainSpecimen Description: CLEAN CATCHCBC W/AUTO [id number] 08:24:00 Test Item Value Reference Range Interpretation Comments WHITE BLOOD CELL (test code = 7.5 x10 3/uL 4.5-11.0 N WBC) RED BLOOD CELL (test code = 4.26 x10 6/uL 3.54-5.02 N RBC) HEMOGLOBIN (test code = HGB) 12.8 g/dL 11.0-15.0 N HEMATOCRIT (test code = HCT) 41.7 % 33.0-45.0 N MEAN CELL VOLUME (test code = 97.9 fL 81.0-99.0 N MCV) MEAN CELL HGB (test code = MCH) 30.0 pg 27.0-33.0 N MEAN CELL HGB CONCETRATION 30.7 g/dL 33.0-37.0 L (test code = MCHC) RED CELL DISTRIBUTION WIDTH CV 14.6 % 11.5-14.5 H (test code = RDW) RED CELL DISTRIBUTION WIDTH SD 52.7 fL 37.0-54.0 N (test code = RDW-SD) PLATELET COUNT (test code = 231 x10 3/uL 150-400 N PLT) MEAN PLATELET VOLUME (test code 10.8 fL 7.0-9.0 H = MPV) NEUTROPHIL % (test code = NT%) 63.3 % 56.0-77.0 N IMMATURE GRANULOCYTE % (test 0.8 % 0.0-2.0 N code = IG%) LYMPHOCYTE % (test code = LY%) 20.5 % 14.0-32.0 N MONOCYTE % (test code = MO%) 9.5 % 4.8-9.0 H EOSINOPHIL % (test code = EO%) 4.7 % 0.3-3.7 H BASOPHIL % (test code = BA%) 1.2 % 0.0-2.0 N NUCLEATED RBC % (test code = 0.0 % 0-0 N NRBC%) NEUTROPHIL # (test code = NT#) 4.74 x10 3/uL 2.0-7.6 N IMMATURE GRANULOCYTE # (test 0.06 x10 3/uL 0.00-0.03 H code = IG#) LYMPHOCYTE # (test code = LY#) 1.53 x10 3/uL 1.0-3.8 N MONOCYTE # (test code = MO#) 0.71 x10 3/uL 0.1-0.8 N EOSINOPHIL # (test code = EO#) 0.35 x10 3/uL 0.0-0.2 H BASOPHIL # (test code = BA#) 0.09 x10 3/uL 0.0-0.2 N NUCLEATED RBC # (test code = 0.00 x10 3/uL 0.0-0.1 N NRBC#) MANUAL DIFF REQUIRED (test code NO = MDIFF) BASIC METABOLIC [id number] 08:15:00 Test Item Value Reference Range Interpretation Comments SODIUM (test code = 143 mEq/L 134-147 N NA) POTASSIUM (test code 4.6 mEq/L 3.4-5.0 N = K) CHLORIDE (test code 109 mEq/L 100-108 H = CL) CARBON DIOXIDE (test 26 mEq/l 21-33 N code = CO2) ANION GAP (test code 12 0-20 N = GAP) GLUCOSE (test code = 122 mg/dL 77-141 N NOTE: N EW NORMAL RANGE GLU) BLOOD UREA NITROGEN 15 mg/dL 7-25 N NOTE: NE W NORMAL RANGE (test code = BUN) GLOMERULAR 58.0 70-80 L The Glomerular FILTRATION RATE Filtration R ate is a (test code = GFR) calculated parameterbased on serum Creatinine, pat ient age and sex. GFR va luesless than 60 mL/min/ 1.73 square meters a re indicative ofCh ronic Kidney Disease. Values less than 15 mL/min/1.73squa re meters indicate Kidney failure. The calculation forGFR is based on the CKD-EPI (2020) calculat ion. This formulais race indifferent and is the recommended for roxana for GFRby the [facility] on for Adults.The GFR will not calculate if th e sex is unknown or if thepatient's ag e is <18 years. CREATININE (test 1.0 mg/dL 0.6-1.3 N code = CREAT) CALCIUM (test code = 9.7 mg/dL 8.0-10.5 N CA) [id number] 08:15:00 Test Item Value Reference Range Interpretation Comments MAGNESIUM (test code = 1.64 mg/dL 1.6-2.6 NOTE: NEW NORMAL MAG) RANGE - DUP VEIN [id number] 16:11:00 [facility] JAYME LAKEName: BREA ZULUAGA : 1945 Sex: F Name: BREA RODRIGUEZ [facility] : 1945 Age/S: 77 / F [address] [place] [address] BlvdUnit #: [id number] Loc: [place] [address] Phys: Estee Jordan Acct: [id number] Dis Date: Status: ADM IN PHONE #: [phone] Exam Date: 06/10/2023 0745 FAX #: [phone] Reason: BLE Vein mapping and marking EXAMS: CPT CODE: [id number] DUP VEIN BRADLEY [address] EXAM: - DUP VEIN BRADLEY LOCATION: H65 H ISTORY: BLE Vein mapping and marking TECHNIQUE: Grayscale real-time B-mode imaging with color doppler and spectral duplex images was performed for greater saphenous vein mapping of the bilateral lower extremities. COMPARISON: None available. FINDINGS/ IMPRESSION: Bilateral greater saphenous veins are patent throughout with normal compressibility. Right leg greater saphenous vein diameters Upper thigh: 0.39 cm Mid thigh: 0.3 cm Lower thigh: 0.35 cm Upper calf: 0.3 cm Mid calf: 0.24 cm The lower calf: 0.2 cm Left leg greater saphenous vein diameters Upper thigh: 0.41 cm Mid thigh: 0.46 cm Lower thigh: 0.37 cm Upper calf: 0.26 cm Mid calf: 0.22 cm Lower calf: 0.22 cm at 1611 Reported and signed by: Kirby Mcbride D.O. PAGE 1 Signed Report (CONTINUED) Name: BREA RODRIGUEZ HCAPerri Loredo : 1945 Age/S: 77 / F [address] Unit #: [id number] Loc: JHONATHAN [place] [address] Phys: Estee Jordan Physic Acct: [id number] Dis Date: Status: ADM IN PHONE #: [phone] Exam Date: 06/10/202345 FAX #: [phone] Reason: BLE Vein mapping and marking EXAMS: CPT CODE: [id number] DUP VEIN BRADLEY [address] (Continued) CC: Nito Pickard MD; Estee Jordan Technologist: YANY Rios)(BR) Trnscb Date/Time: 06/10/2023 (161) [id number] Orig Print D/T: S: 06/13/2023 (0746) Probe: PAGE 2 Signed Report- DUP EXTRACRANIAL [id number] 15:46:00 [facility] : 1945 Sex: F Name: BREA RODRIGUEZ [facility] [place] : 1945 Age/S: 77 / F [address] Unit #: [id number] Loc: JHONATHAN [place] [address] Phys: Estee Jordan Physic Acct: [id number] Dis Date: Status: ADM IN PHONE #: [phone] Exam Date: 06/10/202346 FAX #: [phone] Reason: CAD, eval for CABG EXAMS: CPT CODE: [id number] DUP EXTRACRANIAL BR[place] [address] EXAM: Carotid ultrasound Dictation location: C3 INDICATION: Coronary artery disease, evaluation for CABG COMPARISON: None DISCUSSION: Hendrix scale, color Doppler, and spectral waveform analysis images of the extracranial carotid vessels were performed. Right side: Plaque: None. Peak systolic velocities: CCA: 77 cm/s ICA: 68cm/s ECA: 48cm/s ICA to CCA ratio: 0.9 Vertebral artery: Antegrade flow Left side: Plaque: Small homogeneous plaques are seen at the carotid bulb. Peak systolic velocities: CCA: 87 cm/s ICA: 102 cm/s ECA: 51 cm/s ICA to CCA ratio: 1.2 Vertebral artery: Antegrade flow There are several instances of irregular heart rate and spectral waveforms. IMPRESSION: 1. Small homogeneous plaques at the left carotid bulb. No evidence of hemodynamically significant (greater than 50%) stenosis. 2. Antegrade vertebral artery flow bilaterally. 3. Several instances of irregular heart rate are seen during the exam. Correlation with clinical data is needed. PAGE 1 Signed Report (CONTINUED) Name: BREA ZULUAGA [facility] : 1945 Age/S: 77 / F [address] [place] [address] Blvd Unit #: [id number] Loc: [place], [place] [address]Hzme: Estee Jordan Acct: [id number] Dis Date: Status: ADM IN PHONE #: [phone] ExamDate: 06/10/2023745 FAX #: [phone] Reason: CAD, eval for CABG EXAMS: CPT CODE: [id number] DUP EXTRACRANIAL BRADLEY [id number] (Continued) at 1546 Reported and signed by: Ezequiel Boyce M.D. CC: Nito Pickard MD; Estee Jordan Technologist: YANY Rios)(NEHA) Trnscb Date/Time: 06/10/2023 (1546) [email or web address] Orig Print D/T: S: 06/13/2023 (0746) Probe: PAGE 2 Signed Report- CT CHEST W/O [id number] 14:47:00[facility] JAYME LOREDOName: BREA MAJOR : 1945 Sex: F Name: BREA MOURA [facility] [place] : 1945 Age/S: 77 / F [address] [place] [address] Blvd Unit #: [id number] Loc: [place] [address] Phys: Estee Jordan Acct: [id number] Dis Date: Status: ADM IN PHONE #: [phone] Exam Date: 06/10/2023 1429 FAX #: [phone] Reason: CAD, eval for CABG EXAMS: CPT CODE: [id number] CT CHEST W/O CONTRAST [id number] EXAM: Chest CT without contrastDictation location: C3 INDICATION: Coronary artery disease, evaluate for CABG COMPARISON: None TECHNIQUE: Helical CT of the chest was performed without contrast. 5 mm axial and coronal and sagittal reformatted images were obtained. Unless otherwise specified, incidental findings do not require dedicated imaging follow-up. DISCUSSION: Lungs and airways: There is linear partial consolidation at the posterior/medial aspect of the right upper lobe and right lower lobe. There is linear left perihilar and left lower lobe opacity. Mild diffuse bronchial wall thickening is seen. No pleural effusion or pneumothorax is identified. Heart and mediastinum: The aorta is normal in caliber, with mild aortic atherosclerotic calcification. Multivessel coronary artery calcifications are noted, greatest involving the LAD territory. There is mild left-sided cardiomegaly. No pericardial effusion or mediastinal mass is seen. A pacemaker is in place. Lymph nodes: No lymphadenopathy. Bones/soft tissues: No fracture or bony mass lesion. Upper abdomen: Grossly unremarkable except for prior cholecystectomy. IMPRESSION: 1. Multivessel coronary artery calcifications, greatest involving the LAD territory. There is mild left-sided cardiomegaly, suggestive of CHF. A pacemaker is in place. 2. Linear partial consolidation at the posterior/medial aspect of the right upper and right lower lobes. This could be seen with scarring, atelectasis, or less likely pneumonia. Linear atelectasis or scarring is seen in the lingula and left lower lobe. 3. Mild diffuse bronchial wall thickening, suggestive of acute or chronic bronchitisor asthma. PAGE 1 Signed Report (CONTINUED) Name: BREA MAJOR [facility] : 1945 Age/S: 77 / F [address] [place], [place] [address]vd Unit #: [id number] Loc: [place] [address] Phys: Estee Jordan Physic Acct: [id number] Dis Date: Status: ADM IN PHONE #: [phone] Exam Date: 06/10/2023 1429 FAX #: [phone] Reason: CAD, eval for CABG EXAMS: CPT CODE: [id number] CT CHEST W/O [id number] (Continued) One or more of the following dose reduction techniques were used: Automated exposure control, adjustment of the mA and/or kV according to patient size, and/or utilization of iterativereconstruction technique. DLP: 816 mGy-cm CTDI: 22 mGy at 1447 Reported and signed by: Ezequiel Boyce M.D. CC: Nito Pickard MD; Estee Jordan Technologist:Ricky Elizondo, RT(R)(CT) CTDI: DLP: Trnscb Date/Time: 06/10/2023 (1447) t.[email or web address] Orig Print D/T: S: 06/10/2023 (1677) PAGE 2 Signed ReportB-TYPE NATRIURETIC [id number] 08:09:00 Test Item Value Reference Range Interpretation Comments B-TYPE NATRIURETIC PEPTIDE (test 198.0 PG/ML 0-100 H code = BNP) [id number] 08:09:00 Test Item Value Reference Range Interpretation Comments HGBA1C% (test code = HGBA1C%) 6.2 %A1C 4.8-6.0 H CBC W/AUTO [id number] 07:49:00 Test Item Value Reference Range Interpretation Comments WHITE BLOOD CELL (test code = 7.7 x10 3/uL 4.5-11.0 N WBC) RED BLOOD CELL (test code = 4.38 x10 6/uL 3.54-5.02 N RBC) HEMOGLOBIN (test code = HGB) 13.3 g/dL 11.0-15.0 N HEMATOCRIT (test code = HCT) 43.2 % 33.0-45.0 N MEAN CELL VOLUME (test code = 98.6 fL 81.0-99.0 N MCV) MEAN CELL HGB (test code = MCH) 30.4 pg 27.0-33.0 N MEAN CELL HGB CONCETRATION 30.8 g/dL 33.0-37.0 L (test code = MCHC) RED CELL DISTRIBUTION WIDTH CV 14.6 % 11.5-14.5 H (test code = RDW) RED CELL DISTRIBUTION WIDTH SD 52.6 fL 37.0-54.0 N (test code = RDW-SD) PLATELET COUNT (test code = 297 x10 3/uL 150-400 N PLT) MEAN PLATELET VOLUME (test code 10.3 fL 7.0-9.0 H = MPV) NEUTROPHIL % (test code = NT%) 68.3 % 56.0-77.0 N IMMATURE GRANULOCYTE % (test 0.6 % 0.0-2.0 N code = IG%) LYMPHOCYTE % (test code = LY%) 16.7 % 14.0-32.0 N MONOCYTE % (test code = MO%) 8.8 % 4.8-9.0 N EOSINOPHIL % (test code = EO%) 4.8 % 0.3-3.7 H BASOPHIL % (test code = BA%) 0.8 % 0.0-2.0 N NUCLEATED RBC % (test code = 0.0 % 0-0 N NRBC%) NEUTROPHIL # (test code = NT#) 5.26 x10 3/uL 2.0-7.6 N IMMATURE GRANULOCYTE # (test 0.05 x10 3/uL 0.00-0.03 H code = IG#) LYMPHOCYTE # (test code = LY#) 1.29 x10 3/uL 1.0-3.8 N MONOCYTE # (test code = MO#) 0.68 x10 3/uL 0.1-0.8 N EOSINOPHIL # (test code = EO#) 0.37 x10 3/uL 0.0-0.2 H BASOPHIL # (test code = BA#) 0.06 x10 3/uL 0.0-0.2 N NUCLEATED RBC # (test code = 0.00 x10 3/uL 0.0-0.1 N NRBC#) MANUAL DIFF REQUIRED (test code NO = MDIFF) COMPREHENSIVE METABOLIC [id number] 07:38:00 Test Item Value Reference Range Interpretation Comments SODIUM (test code = 142 mEq/L 134-147 N NA) POTASSIUM (test code 4.4 mEq/L 3.4-5.0 N = K) CHLORIDE (test code 106 mEq/L 100-108 N = CL) CARBON DIOXIDE (test 26 mEq/l 21-33 N code = CO2) ANION GAP (test code 15 0-20 N = GAP) GLUCOSE (test code = 135 mg/dL 77-141 N NOTE: N EW NORMAL RANGE GLU) BLOOD UREA NITROGEN 19 mg/dL 7-25 N NOTE: NE W NORMAL RANGE (test code = BUN) GLOMERULAR 51.8 70-80 L The Glomerular FILTRATION RATE Filtration R ate is a (test code = GFR) calculated parameterbased on serum Creatinine, pat ient age and sex. GFR va luesless than 60 mL/min/ 1.73 square meters a re indicative ofCh ronic Kidney Disease. Values less than 15 mL/min/1.73squa re meters indicate Kidney failure. The calculation for GFR is based on the CK D-EPI (2020) calculat ion. This formulais race indifferent and is the recommended for roxana for GFRby the Natio nal Kidney Foundati on for Adults.The GFR will not calculate if th e sex is unknown or if thepatient's ag e is <18 years. CREATININE (test 1.1 mg/dL 0.6-1.3 N code = CREAT) TOTAL PROTEIN (test 6.1 g/dL 6.4-8.2 L code = PROT) ALBUMIN (test code = 3.50 g/dL 3.4-5.0 N ALB) CALCIUM (test code = 9.3 mg/dL 8.0-10.5 N CA) BILIRUBIN TOTAL 0.40 mg/dL 0.0-1.0 N (test code = BILT) SGOT/AST (test code 25 IUnit/L 8-34 N NOTE: NE W NORMAL RANGE = AST) SGPT/ALT (test code 9 IUnit/L 10-49 L NOTE: NE W NORMAL RANGE = ALT) ALKALINE PHOSPHATASE 70 IUnit/L 20-125 N TOTAL (test code = ALKP) [id number] 07:38:00 Test Item Value Reference Range Interpretation Comments MAGNESIUM (test code = 2.08 mg/dL 1.6-2.6 N NOTE: NEW NORMAL MAG) RANGE MR, BRAIN, [id number] 14:55:00Unlisted Reason for Exam - Click Yes and Enter Reason Below->YesUnlisted Reason for Exam->m[facility]ioma [facility] 1945 Sex: FFINAL REPORT MR, BRAIN, WITH \T\ WITHOUT CONTRAST [...] within normal limits. No obstructive paranasal sinus disease.Hyperostosis frontalis is present. Chronic deformity of the left mandible, incompletely characterized. IMPRESSION: 1.No acute infarct, intracranial hemorrhage, or mass. 2.Extra-axial calcifications along the frontal convexities. No meningioma identified. Signed: Lillian Davison Verified Date/Time: 11/09/2022 14:55:54 RAD, CHEST, 2 [id number] 13:58:00Reason for exam:->mri pacemaker [facility] : 1945 Sex: FFINAL REPORT INDICATION: mri pacemaker clearance COMPARISON: None TECHNIQUE: AP and lateral view of the chest. FINDINGS: Lungs and pleura: Clear lungs. No effusion.Heart and mediastinum: Normal heart size. Unremarkable mediastinal contours.Osseous structures: No acute abnormality.Other: Pacer. IMPRESSION: No acute intrathoracic abnormality. Signed: Yue Sexton Verified Date/Time: 11/08/2022 13:58:06 Reading Location: [address] Reading Room MAGNESIUM, [id number] 14:26:00 Test Item Value Reference Range Interpretation Comments MAGNESIUM, SERUM 1.8 mg/dL 1.6-2.3 (test code = 11580-5) CHELSEY (test code = CHELSEY) [facility] results reported in Eastern Time. [facility] Clinical Information:SRC:Blood, venous*Venipunc ture ? [facility] Source of Specimen:Blood, venous*Venipunc Adeola SeyboldCBC WITH DIFFERENTIAL/[id number] 13:00:00 Test Item Value Reference Range Interpretation [...] (ABSOLUTE) (test code messag e] The = 121-8) system which generated this result transmit rosa [...] 1 % Not Estab. (test code = 25622-8) IMMATURE GRANS (ABS) See_Comment [Autom ated (test code = 53725-3) messag e] The system which generated this result transmit rosa reference range : 0.0 - 0.1 x10E3/uL. The reference range was not used to interpret this result as normal/abnormal . CHELSEY (test code = CHELSEY) [facility] results reported in Eastern Time. [facility] Clinical Information:SRC :Blood, venous*Venipunc ture ? [facility] Source of Specimen:Blood, venous*Venipunc Lab Interpretation Abnormal (test code = 33280-1) Adeola yboldEXTERNAL [id number] 20:45:00 Test Item Value Reference Range Interpretation Comments Radiology Study observation (narrative) (test code = 75030-7) CHELSEY (test code = CHELSEY) [place] [facility] and Lateral Ribs- LeftRib Xray: ?Comparision [...] disease. Lab Interpretation Normal (test code = 98464-8) Adeola SierraURINALYSIS, [id number] 21:24:00 Test Item Value Reference Range Interpretation Comments SPECIFIC GRAVITY 1.005-1.030 (test code = 2965-2) PH (test code = 5.0-7.5 5803-2) URINE-COLOR (test Yellow Yellow code = 5778-6) APPEARANCE (test code Clear Clear = 5767-9) WBC ESTERASE (test Negative Negative code = 5799-2) PROTEIN (test code = 1+ Negative/Trace A 71050-9) GLUCOSE (test code = 3+ Negative A 2349-9) KETONES (test code = Trace Negative A 2514-8) OCCULT BLOOD (test Negative Negative code = 5794-3) BILIRUBIN (test code Negative Negative = 5770-3) UROBILINOGEN,SEMI-QN 1.0 mg/dL 0.2-1.0 (test code = 07984-8) NITRITE, URINE (test Negative Negative code = 5802-4) MICROSCOPIC See below: Microscopic was EXAMINATION (test indicated and was code = 00341-6) performed. CHELSEY (test code = CHELSEY) [facility] results reported in Eastern Time. [facility] Clinical Information:SRC :Urine*Urine ?[facility] Source of Specimen:Urine* Urine Lab Interpretation Abnormal (test code = 84449-2) Adeola SeyboldMICROSCOPIC [id number] 21:24:00 Test Item Value Reference Range Interpretation Comments WBC (test code = 0-5 See_Comment [Automated 5021-4) message] The system which generated this result transmit rosa reference range : 0 - 5 /hpf. The reference range was not used to interpret this result as normal/abnormal . RBC (test code = None seen See_Comment [Automated 72197-4) message] The system which generated this result [...] code = Present None seen /lpf A 19440-1) CAST TYPE (test code Hyaline casts N/A = 08782-1) BACTERIA (test code = None seen None seen/Few 5769-5) CHELSEY (test code = CHELSEY) [facility] results reported in Eastern Time. [facility] Clinical Information:SRC :Urine*Urine ?[facility] Source of Specimen:Urine* Urine Lab Interpretation Abnormal (test code = 35971-4) [facility] METABOLIC PANEL ([id number] 13:16:00 Test Item Value Reference Range Interpretation Comments GLUCOSE, SERUM (test 220 mg/dL 65-99 H code = 2345-7) BUN (test code = 20 mg/dL 8- 3094-0) CREATININE, SERUM 1.34 mg/dL 0.57-1.00 H (test code = 2160-0) EGFR IF NONAFRICN AM 39 mL/min/1.73 >59 L (test code = 05357-7) EGFR IF AFRICN AM 45 mL/min/1.73 >59 L [facility] (test code = 18505-0) angelina tly reports eGFR in compliance with the current ?recommendation s of the National Kidney Foundation. [facility] will ?update reporti ng as new guidelin es are published from the NKF- N ?Task force. BUN/CREATININE RATIO 09-29 (test code = 3097-3) SODIUM, SERUM (test 141 mmol/L 134-144 code = 2951-2) POTASSIUM, SERUM (test 4.3 mmol/L 3.5-5.2 code = 2823-3) CHLORIDE, SERUM (test 105 mmol/L 96-106 code = 2075-0) CARBON DIOXIDE, TOTAL 22 mmol/L 20-29 (test code = 2028-9) CALCIUM, SERUM (test 9.4 mg/dL 8.7-10.3 code = 99888-2) CHELSEY (test code = CHELSEY) [facility] results reported in Eastern Time. [facility] Clinical Information:SRC :Blood, venous*Venipunc ture ? [facility] Source of Specimen:Blood, venous*Venipunc Lab Interpretation Abnormal (test code = 93429-2) Adeola Topete RFLX MICR CULT IF [id number] 18:01:00 Test Item Value Reference Range Interpretation [...] oth srcSpecimen Description: MID STREAM B-TYPE NATRIURETIC [id number] 16:06:00 Test Item Value Reference Range Interpretation Comments B-TYPE NATRIURETIC PEPTIDE (test 151.0 PG/ML 0-100 H code = BNP) BASIC METABOLIC [id number] 15:59:00 Test Item Value Reference Range Interpretation [...] code = 9.6 mg/dL 8.0-10.5 N CA) [id number] 15:59:00 Test Item Value Reference Range Interpretation [...] results may paloma y by method. PROTHROMBIN [id number] 15:58:00 Test Item Value Reference Range Interpretation [...] (to prevent recurrent infar ct). THROMBOPLASTIN TIME [id number] 15:58:00 Test Item Value Reference Range Interpretation Comments THROMBOPLASTIN TIME 31.0 Seconds 25.0-39.5 N Therape utic Range: PARTIAL (test code = 50.4 - 88.3 Seconds PTT) Effective 01/16/2019 PROTHROMBIN [id number] 15:57:00 Test Item Value Reference Range Interpretation Comments PROTHROMBIN TIME 11.9 SECONDS 9.3-12.9 N PATIENT (test code = PTP) INTERNATIONAL NORMAL 1.1 0.8-1.2 N TARGET INR BY RATIO (test code = INDICATIO N Indication INR) INR1. Prophylax is of venous thrombos is 2.0 - 3.0 (orthope dic surgery), Proph ylaxis of venous throm bosis [...] (to prevent recurrent infar ct). THROMBOPLASTIN TIME [id number] 15:57:00 Test Item Value Reference Range Interpretation Comments THROMBOPLASTIN TIME PARTIAL (test Seconds 25.0-39.5 code = PTT) CBC W/AUTO [id number] 15:47:00 Test Item Value Reference Range Interpretation [...] MDIFF) - XR HIP W/PEL UNI 2+V [id number] 00:00:00 [facility] BRE[facility] CEJA : 1945 Sex: F FAX: Kirby Gruber [phone] Moore: St: REG Name: BREA GILES [facility] : 1945 Age/S: 75/F [address] [place] [address] Unit #: [id number] Loc: [place] [address] Phys: Kirby Gruber Acct: [id number] Dis Date: Status: REG ER PHONE #: [phone] Exam Date: 05/16/2021 [facility] FAX #: [phone] Reason: fall, R hip pain EXAMS: CPT CODE: [id number] XR HIP W/PEL UNI 2+[place] 24683 PROCEDURE INFORMATION: Exam: XR Right Hip Exam date and time: 05/16/2021 3:27 PM Age: 75 years old Clinical indication: Injury or trauma; Fall; Sprain or strain; Right; Hip; Additional info: Fall, R hip pain TECHNIQUE: Imaging protocol: XR Right hip. Views: 2 or 3 views hip with pelvis when performed.COMPARISON: No relevant prior studies available. Images of the right hip were obtained in 2 projections. The proximal right femur demonstrates no evidence of acute fracture or bone destruction. The femoral head is normally located and the bony acetabulum appears intact. No abnormalities of the bony tho rax are noted. IMPRESSION: 1. No acute bony abnormalities of the right hip are detected. SL: 131 at 1607 Reported and signed by: Oli Meza M.D. CC: Kirby ANDERSEN Technologist: RT Aziza(Maddison) Trnscrd Date/Time/By: 05/16/2021 (1606) : By: ValenteDMM Orig Print D/T: S: 05/16/2021 (7684) PAGE 1 Signed Report- XR FEMUR MIN 2 VWS [id number] 00:00:00 [facility] 1945 Sex: F FAX: Kirby Gruber [phone] Moore: St: REG Name: BREA GILES [facility] : 1945 Age/S: 75/F [address] [place] [address] Unit #: [id number] Loc: [place] [address] Phys: Kirby Gruber Acct: [id number] Dis Date: Status: REG ER PHONE #: [phone] Exam Date: 05/16/2021 1552 FAX #: [phone] Reason: fall, R hip pain EXAMS: CPT CODE: [id number] XR FEMUR MIN [address] [place] [address] PROCEDURE INFORMATION: Exam: XR Right Femur Exam [...] Notes: Notes: If there is further concern, recom mend follow-up radiographs or bone scan for complete assessment. IMPRESSION: 1. Negative right femur. 2. Note is made of a right total knee prosthesis which appears to be in good position. at 1607 Reported and signed by: Gene Chun M.D. CC: Kirby ANDERSEN Technologist: RT Aziza(R) Trnscrd Date/Time/By: 05/16/2021 (160) : By: [email or web address] Orig Print D/T: S: 05/16/2021 (1499) PAGE 1 Signed Report- XR CHEST 1 [id number] 00:00:00 [facility] : 1945 Sex: F FAX: Kirby Gruber [phone] Moore: St: REG Name: FREDCAMILA JEFFRIESBREA DOWELL [facility] : 1945 Age/S: 75/F [address] [place] [address] Unit #: [id number] Loc: [place] [address] Phys: Kirby Gruber Acct: [id number] Dis Date: Status: REG ER PHONE #: [phone] Exam Date: 05/16/2021 1552 FAX #: [phone] Reason: trauma EXAMS: CPT CODE: [id number] XR CHEST 1 V 65449 PROCEDURE INFORMATION: Exam: XR Chest Exam date and time: 05/16/2021 3:27 PM Age: 75 years old Clinical indication: Pain; Other: Trauma TECHNIQUE: Imaging protocol: XR of the chest. Views: 1 view. COMPARISON: CR XR CHEST 1V 07/20/2019 5:36 AM The positioning of the dual lead left subclavian transvenous pacemaker has not significantly changed in the interim. The heart appears enlarged. The cardiomediastinal shadow is stable. The lungs appear clear. The pulmonary vasculature is normal in caliber. No acute pleural spaceabnormalities are detected. No gross abnormalities of the bony thorax are noted. IMPRESSION: 1. No radiographic evidence of acute cardiopulmonary disease. SL: 131 at 1604 Reported and signed by: Oli Meza M.D. CC: Kirby ANDERSEN Technologist: RT Aziza(Maddison) Trnscrd Date/Time/By: 05/16/2021 (5093) : By: julia CESPEDES Orig Print D/T: S: 05/16/2021 (5642) PAGE 1 Signed Report- CT HEAD/BRAIN W/O [id number] 00:00:00 [facility] [place] : 1945 Sex: F Name: JORGE ALBERTO CEJABREA Robledo [facility] [place] : 1945 Age/S: 75 / F [address] [place] [address] Unit #: [id number] Loc: [place] [address] Phys: Kirby Gruber Acct: [id number] Dis Date:Status: REG ER PHONE #: [phone] Exam Date: 05/16/2021 1609 FAX #: [phone] Reason: trauma,R posterior hematoma, on Xarelto EXAMS: CPT CODE: [id number] CT HEAD/BRAIN W/O CONT 51434 PROCEDURE INFORMATION: Exam: CT Head Without Contrast Exam date [...] diminished attenuation in the cerebral white matter bilateral.The midline structures and posterior fossa contents are unremarkable. There is no intra-axial or extra-axial hemorrhage, mass lesion or mass effect. Calcified plaque cavernous carotid arteries. Cerebra l ventricles: No ventriculomegaly. Paranasal sinuses: Visualized sinuses are unremarkable. No fluid levels. Mastoid air cells: Visualized mastoid air cells are well aerated. Bones/joints: The calvariumis intact. Soft tissues: Unremarkable. Notes: If there is continued clinical concern further imaging options include MRI. IMPRESSION: 1. Negative for acute intracranial injury. 2. Mild chronic microvascular ischemic changes. at 7718 Reported and signed by: Alfonso Selby M.D. PAGE 1 Signed Report (CONTINUED) Name: BREA GILES Venkat [facility] : 1945 Age/S: 75 / F [address] [place] [address] Unit #: [id number] Loc: [place] [address] Phys: Kirby Gruber Acct: [id number] Dis Date: Status: REG ER PHONE #: [phone] Exam Date: 05/16/2021 1609 FAX #: [phone] Reason: trauma, R posterior hematoma, on Xarelto EXAMS: CPT CODE: [id number] CT HEAD/BRAIN W/O CONT 83497 <Continued> CC: Kirby ANDERSEN Technologist:RT Carleen(R)(CT) CTDI: DLP: Trnscb Date/Time: 05/16/2021 (1623) Mary Carmen Orig Print D/T: S: 05/16/2021 (8157) PAGE 2 Signed Report- CT C-SPINE W/O [id number] 00:00:00 [facility] JAYME EDENName: BREA GILES : 1945 Sex: F Name: BREA GILES [facility] [place] : 1945 Age/S: 75 / F [address] [place] [address] Unit #: [id number] Loc: [place] [address] Phys: Kirby Gruber Acct: [id number] Dis Date: Status: REG ER PHONE #: [phone] Exam Date: 05/16/2021 1609 FAX #: [phone] Reason: trauma, posterior head pain EXAMS: CPT CODE: [id number] CT C-SPINE W/O CONT 86647 PROCEDURE INFORMATION: Exam: CT Cervical Spine Without [...] tissues, atlanto-dental interspace and craniocervical junction are normal.The posterior elements and spinous processes are normal. [...] M.D. PAGE 1 Signed Report (CONTINUED) Name: JORGE ALBERTO CEJABREA Venkat [facility] : 1945 Age/S: 75 / F [address] [place] [address] Unit #: [id number] Loc: [place] [address] Phys: Kirby Gruber Acct: [id number] Dis Date: Status: REG ER PHONE #: [phone] Exam Date: 05/16/2021 1609 FAX #: [phone] Reason: trauma, posterior head pain EXAMS: CPT CODE: [id number] CT C-SPINE W/O CONT 83996 <Continued> CC: Kirby ANDERSEN Technologist:RT Pollo(Maddison)(CT) CTDI: DLP: Trnscb Date/Time: 05/16/2021 (1644) [email or web address] Orig Print D/T: S: 05/16/2021 (1644) PAGE 2 Signed ReportGLUCOSE BEDSIDE [id number] 07:45:00 Test Item Value Reference Range Interpretation Comments GLUCOSE BEDSIDE TESTING (test code 130 MG/DL 60-99 H = GLUBED) BASIC METABOLIC [id number] 06:54:00 Test Item Value Reference Range Interpretation [...] 9.8 MG/DL 8.4-10.2 N CA) BASIC METABOLIC [id number] 06:53:00 Test Item Value Reference Range Interpretation [...] code = MG/DL 8.7-9.7 CA) BASIC METABOLIC [id number] 06:50:00 Test Item Value Reference Range Interpretation [...] code = CA) MG/DL 8.7-9.7 CBC W/AUTO [id number] 06:24:00 Test Item Value Reference Range Interpretation [...] 0.00 K/mm3 0.0-0.1 N NRBC#) GLUCOSE BEDSIDE [id number] 05:35:00 Test Item Value Reference Range Interpretation Comments GLUCOSE BEDSIDE TESTING (test code 161 MG/DL 60-99 H = GLUBED) UR SODIUM [id number] 00:53:00 Test Item Value Reference Range Interpretation Comments UR SODIUM RANDOM (test code = MARIAH) 13 MMOL/L 27-287 L UR OSMOLALITY [id number] 00:53:00 Test Item Value Reference Range Interpretation Comments UR OSMOLALITY RANDOM (test code 310.5 MOS/KG 300-1200 N = OSMOU) UR SODIUM [id number] 23:08:00 Test Item Value Reference Range Interpretation Comments UR SODIUM RANDOM (test code = MARIAH) 13 MMOL/L 27-287 L UR OSMOLALITY [id number] 23:08:00 Test Item Value Reference Range Interpretation Comments UR OSMOLALITY RANDOM (test code = MOS/KG 300-1200 OSMOU) OSMOLALITY [id number] 19:19:00 Test Item Value Reference Range Interpretation Comments OSMOLALITY SERUM (test code = 301 mOsm/kg 275-295 H OSMO) GLUCOSE BEDSIDE [id number] 16:55:00 Test Item Value Reference Range Interpretation Comments GLUCOSE BEDSIDE TESTING (test code 294 MG/DL 60-99 H = GLUBED) GLUCOSE BEDSIDE [id number] 12:44:00 Test Item Value Reference Range Interpretation Comments GLUCOSE BEDSIDE TESTING (test code 202 MG/DL 60-99 H = GLUBED) GLUCOSE BEDSIDE [id number] 11:17:00 Test Item Value Reference Range Interpretation Comments GLUCOSE BEDSIDE TESTING (test code 266 MG/DL 60-99 H = GLUBED) GLUCOSE BEDSIDE [id number] 11:16:00 Test Item Value Reference Range Interpretation Comments GLUCOSE BEDSIDE TESTING (test code 112 MG/DL 60-99 H = GLUBED) - XR CHEST [id number] 08:11:00 Patient Name: BREA GILES Unit No: [id number] EXAMS: CPT CODE: [id number] XR CHEST 1V 62776 Site ID: [id number] EXAMINATION: - XR CHEST [...] Technologist: Frances Reardon RT(R) Transcrpt Date/Tm/Trnsp: 07/20/2019 (810) [email or web address] Orig Print D/T: S: 07/20/2019 (813) [facility] NAME: BREA GILES Ven[place] [address] [address] PHYS: MARIA ELENA.[address] [place] [address] : 1945 AGE: 73 SEX: F LOC: ZShona A PHONE #: [phone] EXAM DATE: 07/20/2019 STATUS: ADM IN FAX #: [phone] RADIOLOGY NO: PAGE 1 Signed ReportBASIC METABOLIC [id number] 05:45:00 Test Item Value Reference Range Interpretation [...] code = 9.5 MG/DL 8.4-10.2 N CA) [id number] 05:41:00 Test Item Value Reference Range Interpretation Comments DIGOXIN (test code = DIG) 0.6 NG/ML 0.8-2.0 L BASIC METABOLIC [id number] 05:25:00 Test Item Value Reference Range Interpretation [...] code = MG/DL 8.7-9.7 CA) BASIC METABOLIC [id number] 05:22:00 Test Item Value Reference Range Interpretation [...] code = CA) MG/DL 8.7-9.7 CBC W/AUTO [id number] 05:00:00 Test Item Value Reference Range Interpretation [...] = 0.00 K/mm3 0.0-0.1 N NRBC#) URINALYSIS [id number] 21:50:00 Test Item Value Reference Range Interpretation [...] code = UACULT) SOURCE OF URINE: VOIDEDUA [id number] 21:50:00 Test Item Value Reference Range Interpretation Comments UA RBC (test code = RBCU) 0-3 RBC/HPF 0-3 UA WBC (test code = XWBCU) 5-9 WBC/HPF 0-5 A UA EPITHELIAL CELLS (test code = FEW EPI/HPF FEW EPIU) UA BACTERIA (test code = XBACU) FEW NONE SOURCE OF URINE: VOIDEDURINALYSIS [id number] 21:43:00 Test Item Value Reference Range Interpretation [...] code = UACULT) SOURCE OF URINE: VOIDEDUA [id number] 21:43:00 Test Item Value Reference Range Interpretation Comments UA RBC (test code = RBCU) RBC/HPF 0-3 UA WBC (test code = XWBCU) WBC/HPF 0-5 UA EPITHELIAL CELLS (test code = EPI/HPF FEW EPIU) UA BACTERIA (test code = XBACU) NONE SOURCE OF URINE: VOIDEDURINALYSIS [id number] 21:43:00 Test Item Value Reference Range Interpretation [...] code = UACULT) SOURCE OF URINE: VOIDEDUA [id number] 21:43:00 Test Item Value Reference Range Interpretation Comments UA RBC (test code = RBCU) RBC/HPF 0-3 UA WBC (test code = XWBCU) WBC/HPF 0-5 UA EPITHELIAL CELLS (test code = EPI/HPF FEW EPIU) UA BACTERIA (test code = XBACU) NONE SOURCE OF URINE: VOIDEDGLUCOSE BEDSIDE [id number] 21:08:00 Test Item Value Reference Range Interpretation Comments GLUCOSE BEDSIDE TESTING (test code 202 MG/DL 60-99 H = GLUBED) GLUCOSE BEDSIDE [id number] 16:25:00 Test Item Value Reference Range Interpretation Comments GLUCOSE BEDSIDE TESTING (test code 191 MG/DL 60-99 H = GLUBED) GLUCOSE BEDSIDE [id number] 07:50:00 Test Item Value Reference Range Interpretation Comments GLUCOSE BEDSIDE TESTING (test code 173 MG/DL 60-99 H = GLUBED) BASIC METABOLIC [id number] 05:13:00 Test Item Value Reference Range Interpretation [...] 9.5 MG/DL 8.4-10.2 N CA) BASIC METABOLIC [id number] 05:08:00 Test Item Value Reference Range Interpretation [...] code = CA) MG/DL 8.7-9.7 CBC W/AUTO [id number] 04:54:00 Test Item Value Reference Range Interpretation [...] 0.00 K/mm3 0.0-0.1 N NRBC#) GLUCOSE BEDSIDE [id number] 19:57:00 Test Item Value Reference Range Interpretation Comments GLUCOSE BEDSIDE TESTING (test code 171 MG/DL 60-99 H = GLUBED) GLUCOSE BEDSIDE [id number] 16:05:00 Test Item Value Reference Range Interpretation Comments GLUCOSE BEDSIDE TESTING (test code 286 MG/DL 60-99 H = GLUBED) GLUCOSE BEDSIDE [id number] 12:28:00 Test Item Value Reference Range Interpretation Comments GLUCOSE BEDSIDE TESTING (test code 234 MG/DL 60-99 H = GLUBED) GLUCOSE BEDSIDE [id number] 08:29:00 Test Item Value Reference Range Interpretation Comments GLUCOSE BEDSIDE TESTING (test code 196 MG/DL 60-99 H = GLUBED) B-TYPE NATRIURETIC [id number] 04:56:00 Test Item Value Reference Range Interpretation Comments B-TYPE NATRIURETIC PEPTIDE (test 371.0 PG/ML 0-100 H code = BNP) COMPREHENSIVE METABOLIC [id number] 04:47:00 Test Item Value Reference Range Interpretation [...] UNITS/L 38-126 N (test code = ALKP) [id number] 04:47:00 Test Item Value Reference Range Interpretation Comments MAGNESIUM (test code = MAG) 1.9 MG/DL 1.6-2.3 N COMPREHENSIVE METABOLIC [id number] 04:45:00 Test Item Value Reference Range Interpretation [...] PHOSPHATASE (test code = UNITS/L 38-126 ALKP) [id number] 04:45:00 Test Item Value Reference Range Interpretation Comments MAGNESIUM (test code = MAG) MG/DL 1.6-2.3 COMPREHENSIVE METABOLIC [id number] 04:44:00 Test Item Value Reference Range Interpretation [...] PHOSPHATASE (test code = UNITS/L 38-126 ALKP) [id number] 04:44:00 Test Item Value Reference Range Interpretation Comments MAGNESIUM (test code = MAG) MG/DL 1.6-2.3 CBC W/AUTO [id number] 04:25:00 Test Item Value Reference Range Interpretation [...] 0.00 K/mm3 0.0-0.1 N NRBC#) GLUCOSE BEDSIDE [id number] 20:14:00 Test Item Value Reference Range Interpretation Comments GLUCOSE BEDSIDE TESTING (test code 173 MG/DL 60-99 H = GLUBED) [id number] 18:39:00 Test Item Value Reference Range Interpretation Comments TROPONIN-I (test code = TROPI) 0.041 NG/ML 0.012-0.033 H B-TYPE NATRIURETIC [id number] 16:46:00 Test Item Value Reference Range Interpretation Comments B-TYPE NATRIURETIC PEPTIDE (test 336.0 PG/ML 0-100 H code = BNP) ADD ONSpecimen comments: Can add to blood in [id number] 16:38:00 Test Item Value Reference Range Interpretation Comments TROPONIN-I (test code = TROPI) 0.042 NG/ML 0.012-0.033 H COMPREHENSIVE METABOLIC [id number] 13:48:00 Test Item Value Reference Range Interpretation [...] UNITS/L 38-126 N (test code = ALKP) [id number] 13:48:00 Test Item Value Reference Range Interpretation Comments PHOSPHOROUS (test code = PHOS) 3.6 MG/DL 2.5-4.5 N [id number] 13:48:00 Test Item Value Reference Range Interpretation Comments MAGNESIUM (test code = MAG) 2.1 MG/DL 1.6-2.3 N COMPREHENSIVE METABOLIC [id number] 13:39:00 Test Item Value Reference Range Interpretation [...] PHOSPHATASE UNITS/L 38-126 (test code = ALKP) [id number] 13:39:00 Test Item Value Reference Range Interpretation Comments PHOSPHOROUS (test code = PHOS) MG/DL 2.5-4.5 [id number] 13:39:00 Test Item Value Reference Range Interpretation Comments MAGNESIUM (test code = MAG) MG/DL 1.6-2.3 COMPREHENSIVE METABOLIC [id number] 13:37:00 Test Item Value Reference Range Interpretation [...] PHOSPHATASE (test code = UNITS/L 38-126 ALKP) [id number] 13:37:00 Test Item Value Reference Range Interpretation Comments PHOSPHOROUS (test code = PHOS) MG/DL 2.5-4.5 [id number] 13:37:00 Test Item Value Reference Range Interpretation Comments MAGNESIUM (test code = MAG) MG/DL 1.6-2.3 - XR CHEST [id number] 13:36:00 Patient Name: BREA GILES Unit No: [id number] EXAMS: CPT CODE: [id number] XR CHEST 1V 08434 Chest Radiograph History: pain Comparison: July 02, 2019 Location: R16 A single frontal view of the chest is submitted. The heart appears unchanged in size. Pulmonary vasculature is unremarkable. The visualized lung ryan appear to be free of disease. The bones appear unchanged. IMPRESSION:There is no radiographic evidence of acute cardiopulmonary disease. at 1333 Reported and signed by: Niko Howell MD CC: ANATOLIY QUINTERO DO; Viviana Thompson MD Technologist: Matt Campbell RT(R) Transcrpt Date/Tm/Trnsp: 07/17/2019 (7784) t.SDR.PMT Orig Print D/T: S: 07/17/2019 (7284) [facility] NAME: BREA GILES [address] PHYS: [place] [address] : 1945 AGE: 73 SEX: F LOC: [place] PHONE #: [phone] EXAM DATE: 07/17/2019 STATUS: PRE ER FAX #: [phone] NO: PAGE 1 Signed ReportPROTHROMBIN [id number] 13:35:00 Test Item Value Reference Range Interpretation Comments PROTHROMBIN TIME 10.9 SECONDS 9.6-11.6 N PATIENT (test code = PTP) INTERNATIONAL NORMAL 1.0 0.8-1.1 N The INR is to be RATIO (test code = used only for INR) monitoring oral anticoagulantth erap y. INDICATION INR VALUE ---- ---- ---- -------1. Prophylaxis, de ep venous thrombos is, including high risk surgery. 2.0 - 3.0 2. Prophylaxis, deep venous thrombosis, hip surgery, treatm ent for deep venous thrombosis or pulmonary prevention of systemic emboli sm in patients wit h valvular heart disease, atrial fibrillation, tissue heart va lve, or acute myocar dial infarction. 2.0 - 3.0 3. Buyer Liaison al prosthesis hear t valves, recurre nt systemic emboli sm. 3.0 - 4.5 PTT [id number] 13:35:00 Test Item Value Reference Range Interpretation Comments PTT ACTIVATED (test code = APTT) 31.5 SECONDS 22.0-33.0 N CBC W/AUTO [id number] 13:34:00 Test Item Value Reference Range Interpretation [...] 0.00 K/mm3 0.0-0.1 N NRBC#) TROPONIN I [id number] 13:16:00 Test Item Value Reference Range Interpretation Comments TROPONIN I RAPID (test code = 0.04 NG/ML 0.00-0.05 N TROPIRAP) GLUCOSE BEDSIDE [id number] 17:02:00 Test Item Value Reference Range Interpretation Comments GLUCOSE BEDSIDE TESTING (test code 232 MG/DL 60-99 H = GLUBED) BUN [id number] 16:53:00 Test Item Value Reference Range Interpretation Comments BLOOD UREA NITROGEN 63 MG/DL 7-17 H (test code = BUN) GLOMERULAR FILTRATION 34 Report ing units: RATE (test code = GFR) ml/mi n/1.73 m2 (Modified MDRD Formula)Referen ce Range: > or = 6 0 ml/min/1.73 m2 CREATININE (test code 1.50 MG/DL 0.52-1.04 H = CREAT) ENTER RACE; UGLUCOSE BEDSIDE [id number] 11:52:00 Test Item Value Reference Range Interpretation Comments GLUCOSE BEDSIDE TESTING (test code 149 MG/DL 60-99 H = GLUBED) GLUCOSE BEDSIDE [id number] 10:27:00 Test Item Value Reference Range Interpretation Comments GLUCOSE BEDSIDE TESTING (test code 145 MG/DL 60-99 H = GLUBED) GLUCOSE BEDSIDE [id number] 21:19:00 Test Item Value Reference Range Interpretation Comments GLUCOSE BEDSIDE TESTING (test code 162 MG/DL 60-99 H = GLUBED) GLUCOSE BEDSIDE [id number] 16:42:00 Test Item Value Reference Range Interpretation Comments GLUCOSE BEDSIDE TESTING (test code 228 MG/DL 60-99 H = GLUBED) GLUCOSE BEDSIDE [id number] 11:58:00 Test Item Value Reference Range Interpretation Comments GLUCOSE BEDSIDE TESTING (test code 228 MG/DL 60-99 H = GLUBED) GLUCOSE BEDSIDE [id number] 07:45:00 Test Item Value Reference Range Interpretation Comments GLUCOSE BEDSIDE TESTING (test code 129 MG/DL 60-99 H = GLUBED) GLUCOSE BEDSIDE [id number] 20:35:00 Test Item Value Reference Range Interpretation Comments GLUCOSE BEDSIDE TESTING (test code 223 MG/DL 60-99 H = GLUBED) GLUCOSE BEDSIDE [id number] 16:27:00 Test Item Value Reference Range Interpretation Comments GLUCOSE BEDSIDE TESTING (test code 222 MG/DL 60-99 H = GLUBED) GLUCOSE BEDSIDE [id number] 13:00:00 Test Item Value Reference Range Interpretation Comments GLUCOSE BEDSIDE TESTING (test code 212 MG/DL 60-99 H = GLUBED) GLUCOSE BEDSIDE [id number] 10:50:00 Test Item Value Reference Range Interpretation Comments GLUCOSE BEDSIDE TESTING (test code 131 MG/DL 60-99 H = GLUBED) GLUCOSE BEDSIDE [id number] 10:50:00 Test Item Value Reference Range Interpretation Comments GLUCOSE BEDSIDE TESTING (test code 177 MG/DL 60-99 H = GLUBED) GLUCOSE BEDSIDE [id number] 20:29:00 Test Item Value Reference Range Interpretation Comments GLUCOSE BEDSIDE TESTING (test code 247 MG/DL 60-99 H = GLUBED) GLUCOSE BEDSIDE [id number] 16:22:00 Test Item Value Reference Range Interpretation Comments GLUCOSE BEDSIDE TESTING (test code 182 MG/DL 60-99 H = GLUBED) GLUCOSE BEDSIDE [id number] 11:20:00 Test Item Value Reference Range Interpretation Comments GLUCOSE BEDSIDE TESTING (test code 176 MG/DL 60-99 H = GLUBED) GLUCOSE BEDSIDE [id number] 20:14:00 Test Item Value Reference Range Interpretation Comments GLUCOSE BEDSIDE TESTING (test code 187 MG/DL 60-99 H = GLUBED) GLUCOSE BEDSIDE [id number] 16:20:00 Test Item Value Reference Range Interpretation Comments GLUCOSE BEDSIDE TESTING 200 MG/DL 60-99 H Noti fied Nurse~ (test code = GLUBED) GLUCOSE BEDSIDE [id number] 12:15:00 Test Item Value Reference Range Interpretation Comments GLUCOSE BEDSIDE TESTING (test code 180 MG/DL 60-99 H = GLUBED) GLUCOSE BEDSIDE [id number] 10:59:00 Test Item Value Reference Range Interpretation Comments GLUCOSE BEDSIDE TESTING (test code 230 MG/DL 60-99 H = GLUBED) GLUCOSE BEDSIDE [id number] 10:58:00 Test Item Value Reference Range Interpretation Comments GLUCOSE BEDSIDE TESTING (test code 226 MG/DL 60-99 H = GLUBED) GLUCOSE BEDSIDE [id number] 07:20:00 Test Item Value Reference Range Interpretation Comments GLUCOSE BEDSIDE TESTING (test code 146 MG/DL 60-99 H = GLUBED) GLUCOSE BEDSIDE [id number] 20:40:00 Test Item Value Reference Range Interpretation Comments GLUCOSE BEDSIDE TESTING (test code 214 MG/DL 60-99 H = GLUBED) GLUCOSE BEDSIDE [id number] 17:09:00 Test Item Value Reference Range Interpretation Comments GLUCOSE BEDSIDE TESTING (test code 236 MG/DL 60-99 H = GLUBED) GLUCOSE BEDSIDE [id number] 12:08:00 Test Item Value Reference Range Interpretation Comments GLUCOSE BEDSIDE TESTING (test code 161 MG/DL 60-99 H = GLUBED) GLUCOSE BEDSIDE [id number] 09:16:00 Test Item Value Reference Range Interpretation Comments GLUCOSE BEDSIDE TESTING (test code 138 MG/DL 60-99 H = GLUBED) GLUCOSE BEDSIDE [id number] 17:05:00 Test Item Value Reference Range Interpretation Comments GLUCOSE BEDSIDE TESTING (test code 245 MG/DL 60-99 H = GLUBED) GLUCOSE BEDSIDE [id number] 12:32:00 Test Item Value Reference Range Interpretation Comments GLUCOSE BEDSIDE TESTING (test code 131 MG/DL 60-99 H = GLUBED) GLUCOSE BEDSIDE [id number] 07:29:00 Test Item Value Reference Range Interpretation Comments GLUCOSE BEDSIDE TESTING (test code 134 MG/DL 60-99 H = GLUBED) GLUCOSE BEDSIDE [id number] 02:24:00 Test Item Value Reference Range Interpretation Comments GLUCOSE BEDSIDE TESTING (test code 149 MG/DL 60-99 H = GLUBED) GLUCOSE BEDSIDE [id number] 16:14:00 Test Item Value Reference Range Interpretation Comments GLUCOSE BEDSIDE TESTING 186 MG/DL 60-99 H Noti fied Nurse~ (test code = GLUBED) GLUCOSE BEDSIDE [id number] 12:52:00 Test Item Value Reference Range Interpretation Comments GLUCOSE BEDSIDE TESTING (test code 160 MG/DL 60-99 H = GLUBED) GLUCOSE BEDSIDE [id number] 07:30:00 Test Item Value Reference Range Interpretation Comments GLUCOSE BEDSIDE TESTING (test code 142 MG/DL 60-99 H = GLUBED) COMPREHENSIVE METABOLIC [id number] 06:56:00 Test Item Value Reference Range Interpretation [...] UNITS/L 38-126 N (test code = ALKP) [id number] 06:56:00 Test Item Value Reference Range Interpretation Comments MAGNESIUM (test code = MAG) 1.9 MG/DL 1.6-2.3 N COMPREHENSIVE METABOLIC [id number] 06:52:00 Test Item Value Reference Range Interpretation [...] PHOSPHATASE (test code = UNITS/L 38-126 ALKP) [id number] 06:52:00 Test Item Value Reference Range Interpretation Comments MAGNESIUM (test code = MAG) MG/DL 1.6-2.3 COMPREHENSIVE METABOLIC [id number] 06:51:00 Test Item Value Reference Range Interpretation [...] PHOSPHATASE (test code = UNITS/L 38-126 ALKP) [id number] 06:51:00 Test Item Value Reference Range Interpretation Comments MAGNESIUM (test code = MAG) MG/DL 1.6-2.3 CBC W/AUTO [id number] 06:25:00 Test Item Value Reference Range Interpretation [...] 0.00 K/mm3 0.0-0.1 N NRBC#) GLUCOSE BEDSIDE [id number] 19:59:00 Test Item Value Reference Range Interpretation Comments GLUCOSE BEDSIDE TESTING 184 MG/DL 60-99 H Noti fied Nurse~ (test code = GLUBED) GLUCOSE BEDSIDE [id number] 16:28:00 Test Item Value Reference Range Interpretation Comments GLUCOSE BEDSIDE TESTING 245 MG/DL 60-99 H Noti fied Nurse~ (test code = GLUBED) GLUCOSE BEDSIDE [id number] 13:02:00 Test Item Value Reference Range Interpretation Comments GLUCOSE BEDSIDE TESTING (test code 204 MG/DL 60-99 H = GLUBED) GLUCOSE BEDSIDE [id number] 07:00:00 Test Item Value Reference Range Interpretation Comments GLUCOSE BEDSIDE TESTING (test code 151 MG/DL 60-99 H = GLUBED) GLUCOSE BEDSIDE [id number] 06:33:00 Test Item Value Reference Range Interpretation Comments GLUCOSE BEDSIDE TESTING 236 MG/DL 60-99 H Noti fied Nurse~ (test code = GLUBED) GLUCOSE BEDSIDE [id number] 12:07:00 Test Item Value Reference Range Interpretation Comments GLUCOSE BEDSIDE TESTING (test code 167 MG/DL 60-99 H = GLUBED) GLUCOSE BEDSIDE [id number] 08:20:00 Test Item Value Reference Range Interpretation Comments GLUCOSE BEDSIDE TESTING (test code 140 MG/DL 60-99 H = GLUBED) BASIC METABOLIC [id number] 06:11:00 Test Item Value Reference Range Interpretation [...] code = MG/DL 8.7-9.7 CA) BASIC METABOLIC [id number] 06:11:00 Test Item Value Reference Range Interpretation [...] 9.5 MG/DL 8.4-10.2 N CA) BASIC METABOLIC [id number] 06:08:00 Test Item Value Reference Range Interpretation [...] code = CA) MG/DL 8.7-9.7 GLUCOSE BEDSIDE [id number] 20:04:00 Test Item Value Reference Range Interpretation Comments GLUCOSE BEDSIDE TESTING (test code 226 MG/DL 60-99 H = GLUBED) GLUCOSE BEDSIDE [id number] 16:25:00 Test Item Value Reference Range Interpretation Comments GLUCOSE BEDSIDE TESTING (test code 270 MG/DL 60-99 H = GLUBED) GLUCOSE BEDSIDE [id number] 13:02:00 Test Item Value Reference Range Interpretation Comments GLUCOSE BEDSIDE TESTING (test code 137 MG/DL 60-99 H = GLUBED) GLUCOSE BEDSIDE [id number] 12:09:00 Test Item Value Reference Range Interpretation Comments GLUCOSE BEDSIDE TESTING (test code 220 MG/DL 60-99 H = GLUBED) - CTA CHEST FOR [id number] 10:59:00 Patient Name: BREA GILES Unit No: [id number] EXAMS: CPT CODE: [id number] [place] [address] CTA Chest with contrast Location: B2 Clinical [...] Viviana Thompson MD Technologist: Ian Aguilar, RT(R)(CT)(MRI); HCC CTDI: DLP: Trnscrpt: 07/03/2019 (1059) [email or web address] ARON Gonzalez NAME: BREA GILES [address] PHYS: [place] [address] : 1945 AGE: 73 SEX: F LOC: Z.365 A PHONE #:[phone] EXAM DATE: 07/03/2019 STATUS: ADM IN FAX #: [phone] RAD #: D/C DT PAGE 1 Signed Report Patient Name: BREA GILES Unit No: [id number] EXAMS: CPT CODE: [id number] [place] [address] (Continued) Orig Print D/T: S: 07/03/2019 (1102) ARON Gonzalez NAME: BREA GILES [address] PHYS: [place] [address] : 1945 AGE: 73 SEX: FACCT NO: [id number] LOC: Z.365 A PHONE #: [phone] EXAM DATE: 07/03/2019 STATUS: ADM IN FAX #:[phone] RAD #: D/C DT PAGE 2 Signed ReportBASIC METABOLIC [id number] 06:20:00 Test Item Value Reference Range Interpretation [...] 9.6 MG/DL 8.4-10.2 N CA) CBC W/AUTO [id number] 05:42:00 Test Item Value Reference Range Interpretation [...] = 0.00 K/mm3 0.0-0.1 N NRBC#) DIFFERENTIAL [id number] 05:42:00 Test Item Value Reference Range Interpretation Comments RBC MORPHOLOGY REQUIRED (test code = RBCM) PLATELET ESTIMATE (test code = PLTEST) ADEQUATE PLATELET MORPHOLOGY (test code = NORMAL PLTMORPH) CBC W/AUTO [id number] 05:42:00 Test Item Value Reference Range Interpretation [...] = 0.00 K/mm3 0.0-0.1 N NRBC#) DIFFERENTIAL [id number] 05:42:00 Test Item Value Reference Range Interpretation Comments RBC MORPHOLOGY REQUIRED (test code = RBCM) PLATELET ESTIMATE (test code = PLTEST) ADEQUATE PLATELET MORPHOLOGY (test code = NORMAL PLTMORPH) GLUCOSE BEDSIDE [id number] 20:44:00 Test Item Value Reference Range Interpretation Comments GLUCOSE BEDSIDE TESTING (test code 191 MG/DL 60-99 H = GLUBED) GLUCOSE BEDSIDE [id number] 19:09:00 Test Item Value Reference Range Interpretation Comments GLUCOSE BEDSIDE TESTING (test code 132 MG/DL 60-99 H = GLUBED) - XR CHEST [id number] 18:49:00 Patient Name: BREA GILES Unit No: [id number] EXAMS: CPT CODE: [id number] XR CHEST 1V 97437 LOCATION CODE: H 31 CHEST AP HISTORY: [...] Alexandr Hawkins; Viviana Thompson MD Technologist: Pavithra Maloney, RT(R) Transcrpt Date/Tm/Trnsp: 07/02/2019 (1848) [id number] Orig Print D/T: S: 07/02/2019 (185) ARON Gonzalez NAME: BREA GILES [address] PHYS: [place] [address] : 1945 AGE: 73 SEX: F LOC: Z.410 A PHONE #: [phone] EXAM DATE: 07/02/2019 STATUS: ADM IN FAX #: [phone] RADIOLOGY NO: PAGE 1 Signed [id number] 18:23:00 Test Item Value Reference Range Interpretation Comments ACT-ISTAT (test code = ACTI) 103 SEC 74-137 N GLUCOSE BEDSIDE [id number] 07:48:00 Test Item Value Reference Range Interpretation Comments GLUCOSE BEDSIDE TESTING (test code 160 MG/DL 60-99 H = GLUBED) GLUCOSE BEDSIDE [id number] 07:16:00 Test Item Value Reference Range Interpretation Comments GLUCOSE BEDSIDE TESTING (test code 134 MG/DL 60-99 H = GLUBED) GLUCOSE BEDSIDE [id number] 20:51:00 Test Item Value Reference Range Interpretation Comments GLUCOSE BEDSIDE TESTING (test code 142 MG/DL 60-99 H = GLUBED) GLUCOSE BEDSIDE [id number] 16:16:00 Test Item Value Reference Range Interpretation Comments GLUCOSE BEDSIDE TESTING (test code 156 MG/DL 60-99 H = GLUBED) GLUCOSE BEDSIDE [id number] 16:16:00 Test Item Value Reference Range Interpretation Comments GLUCOSE BEDSIDE TESTING (test code 184 MG/DL 60-99 H = GLUBED) BASIC METABOLIC [id number] 13:13:00 Test Item Value Reference Range Interpretation [...] 9.3 MG/DL 8.4-10.2 N CA) BASIC METABOLIC [id number] 13:02:00 Test Item Value Reference Range Interpretation [...] code = MG/DL 8.7-9.7 CA) BASIC METABOLIC [id number] 13:00:00 Test Item Value Reference Range Interpretation [...] code = CA) MG/DL 8.7-9.7 BASIC METABOLIC [id number] 12:59:00 Test Item Value Reference Range Interpretation [...] code = CA) MG/DL 8.7-9.7 GLUCOSE BEDSIDE [id number] 06:32:00 Test Item Value Reference Range Interpretation Comments GLUCOSE BEDSIDE TESTING (test code 144 MG/DL 60-99 H = GLUBED) GLUCOSE BEDSIDE [id number] 22:00:00 Test Item Value Reference Range Interpretation Comments GLUCOSE BEDSIDE TESTING (test code 154 MG/DL 60-99 H = GLUBED) GLUCOSE BEDSIDE [id number] 16:57:00 Test Item Value Reference Range Interpretation Comments GLUCOSE BEDSIDE TESTING (test code 124 MG/DL 60-99 H = GLUBED) GLUCOSE BEDSIDE [id number] 16:57:00 Test Item Value Reference Range Interpretation Comments GLUCOSE BEDSIDE TESTING (test code 189 MG/DL 60-99 H = GLUBED) GLUCOSE BEDSIDE [id number] 06:59:00 Test Item Value Reference Range Interpretation Comments GLUCOSE BEDSIDE TESTING (test code 119 MG/DL 60-99 H = GLUBED) GLUCOSE BEDSIDE [id number] 21:39:00 Test Item Value Reference Range Interpretation Comments GLUCOSE BEDSIDE TESTING (test code 172 MG/DL 60-99 H = GLUBED) GLUCOSE BEDSIDE [id number] 12:36:00 Test Item Value Reference Range Interpretation Comments GLUCOSE BEDSIDE TESTING (test code 155 MG/DL 60-99 H = GLUBED) - XR CHEST [id number] 09:12:00 Patient Name: BREA GILES Unit No: [id number] EXAMS: CPT CODE: [id number] XR CHEST 1V 86764 EXAM: Portable chest one view. Location code:J9 HISTORY: CHF COMPARISON: 06/25/2019 Findings: The cardiac silhouette is enlarged and stable in size. Stable prominent interstitial lung markings. No large pleural effusion or pneumothorax. The bones are intact. IMPRESSION: Stable findings of CHF. at 0912 Reported and signed by: Gil Pope M.D. CC: Nick Cabrera; Alexandr Hawkins; Viviana Thompson MD Technologist: Crystal Cleveland RT (R) Transcrpt Date/Tm/Trnsp: 06/29/2019 (09) t.SDR.RR16 Orig Print D/T: S: 06/29/2019 (15) [facility] NAME: FREDCAMILANESHADELMERBREA [address] PHYS: [place] [address] : 1945 AGE: 73 SEX: F LOC: Z.410 A PHONE #: [phone] EXAM DATE: 06/29/2019 STATUS: ADM IN FAX #: [phone] RADIOLOGY NO: PAGE 1 Signed ReportBASIC METABOLIC [id number] 07:40:00 Test Item Value Reference Range Interpretation [...] 8.8 MG/DL 8.4-10.2 N CA) BASIC METABOLIC [id number] 07:27:00 Test Item Value Reference Range Interpretation [...] code = CA) MG/DL 8.7-9.7 CBC W/AUTO [id number] 07:12:00 Test Item Value Reference Range Interpretation [...] = 0.00 K/mm3 0.0-0.1 N NRBC#) DIFFERENTIAL [id number] 07:12:00 Test Item Value Reference Range Interpretation Comments RBC MORPHOLOGY REQUIRED (test code = RBCM) PLATELET ESTIMATE (test code = PLTEST) ADEQUATE PLATELET MORPHOLOGY (test code = NORMAL PLTMORPH) CBC W/AUTO [id number] 07:12:00 Test Item Value Reference Range Interpretation [...] = 0.00 K/mm3 0.0-0.1 N NRBC#) DIFFERENTIAL [id number] 07:12:00 Test Item Value Reference Range Interpretation Comments RBC MORPHOLOGY REQUIRED (test code = RBCM) PLATELET ESTIMATE (test code = PLTEST) ADEQUATE PLATELET MORPHOLOGY (test code = NORMAL PLTMORPH) GLUCOSE BEDSIDE [id number] 06:19:00 Test Item Value Reference Range Interpretation Comments GLUCOSE BEDSIDE TESTING (test code 129 MG/DL 60-99 H = GLUBED) GLUCOSE BEDSIDE [id number] 20:30:00 Test Item Value Reference Range Interpretation Comments GLUCOSE BEDSIDE TESTING (test code 130 MG/DL 60-99 H = GLUBED) GLUCOSE BEDSIDE [id number] 18:01:00 Test Item Value Reference Range Interpretation Comments GLUCOSE BEDSIDE TESTING (test code 150 MG/DL 60-99 H = GLUBED) GLUCOSE BEDSIDE [id number] 13:32:00 Test Item Value Reference Range Interpretation Comments GLUCOSE BEDSIDE TESTING (test code 147 MG/DL 60-99 H = GLUBED) GLUCOSE BEDSIDE [id number] 07:06:00 Test Item Value Reference Range Interpretation Comments GLUCOSE BEDSIDE TESTING (test code 154 MG/DL 60-99 H = GLUBED) GLUCOSE BEDSIDE [id number] 20:58:00 Test Item Value Reference Range Interpretation Comments GLUCOSE BEDSIDE TESTING (test code 198 MG/DL 60-99 H = GLUBED) GLUCOSE BEDSIDE [id number] 16:23:00 Test Item Value Reference Range Interpretation Comments GLUCOSE BEDSIDE TESTING (test code 131 MG/DL 60-99 H = GLUBED) GLUCOSE BEDSIDE [id number] 14:29:00 Test Item Value Reference Range Interpretation Comments GLUCOSE BEDSIDE TESTING (test code 164 MG/DL 60-99 H = GLUBED) GLUCOSE BEDSIDE [id number] 14:29:00 Test Item Value Reference Range Interpretation Comments GLUCOSE BEDSIDE TESTING (test code 152 MG/DL 60-99 H = GLUBED) GLUCOSE BEDSIDE [id number] 14:29:00 Test Item Value Reference Range Interpretation Comments GLUCOSE BEDSIDE TESTING (test code 209 MG/DL 60-99 H = GLUBED) GLUCOSE BEDSIDE [id number] 14:29:00 Test Item Value Reference Range Interpretation Comments GLUCOSE BEDSIDE TESTING (test code 161 MG/DL 60-99 H = GLUBED) GLUCOSE BEDSIDE [id number] 06:27:00 Test Item Value Reference Range Interpretation Comments GLUCOSE BEDSIDE TESTING (test code 144 MG/DL 60-99 H = GLUBED) BASIC METABOLIC [id number] 06:25:00 Test Item Value Reference Range Interpretation [...] 9.0 MG/DL 8.4-10.2 N CA) BASIC METABOLIC [id number] 06:19:00 Test Item Value Reference Range Interpretation [...] code = MG/DL 8.7-9.7 CA) BASIC METABOLIC [id number] 06:17:00 Test Item Value Reference Range Interpretation [...] code = CA) MG/DL 8.7-9.7 GLUCOSE BEDSIDE [id number] 21:09:00 Test Item Value Reference Range Interpretation Comments GLUCOSE BEDSIDE TESTING (test code 236 MG/DL 60-99 H = GLUBED) BASIC METABOLIC [id number] 06:05:00 Test Item Value Reference Range Interpretation [...] 8.9 MG/DL 8.4-10.2 N CA) BASIC METABOLIC [id number] 05:46:00 Test Item Value Reference Range Interpretation [...] code = CA) MG/DL 8.7-9.7 BASIC METABOLIC [id number] 05:45:00 Test Item Value Reference Range Interpretation [...] code = CA) MG/DL 8.7-9.7 CBC W/AUTO [id number] 05:24:00 Test Item Value Reference Range Interpretation [...] = 0.02 K/mm3 0.0-0.1 N NRBC#) CPK-MB [id number] 00:47:00 Test Item Value Reference Range Interpretation Comments CREATINE KINASE (CK) (test code = 42 UNITS/L 30-135 N CK) CKMB (test code = CKMBT) 0.93 NG/ML 0.0-5.6 N CKMB INDEX (test code = CKMBI) 2.2 % 4.0-4.4 L CPK-MB [id number] 00:45:00 Test Item Value Reference Range Interpretation Comments CREATINE KINASE (CK) (test code = 42 UNITS/L 30-135 N CK) CKMB (test code = CKMBT) NG/ML 0.0-5.6 CKMB INDEX (test code = CKMBI) % 4.0-4.4 CPK-MB [id number] 17:46:00 Test Item Value Reference Range Interpretation Comments CREATINE KINASE (CK) (test code = 41 UNITS/L 30-135 CK) CKMB (test code = CKMBT) 0.98 NG/ML 0.0-5.6 N CKMB INDEX (test code = CKMBI) 2.4 % 4.0-4.4 L GLUCOSE BEDSIDE [id number] 16:58:00 Test Item Value Reference Range Interpretation Comments GLUCOSE BEDSIDE TESTING (test code 154 MG/DL 60-99 H = GLUBED) [id number] 14:02:00 Test Item Value Reference Range Interpretation Comments TROPONIN-I (test code = TROPI) 0.091 NG/ML 0.012-0.033 H GLUCOSE BEDSIDE [id number] 11:33:00 Test Item Value Reference Range Interpretation Comments GLUCOSE BEDSIDE TESTING (test code 202 MG/DL 60-99 H = GLUBED) BASIC METABOLIC [id number] 09:27:00 Test Item Value Reference Range Interpretation [...] code = 8.9 MG/DL 8.4-10.2 N CA) [id number] 09:27:00 Test Item Value Reference Range Interpretation Comments PHOSPHOROUS (test code = PHOS) 4.2 MG/DL 2.5-4.5 N [id number] 09:27:00 Test Item Value Reference Range Interpretation Comments MAGNESIUM (test code = MAG) 2.0 MG/DL 1.6-2.3 N CPK-MB [id number] 09:27:00 Test Item Value Reference Range Interpretation Comments CREATINE KINASE (CK) (test code = 28 UNITS/L 30-135 L CK) CKMB (test code = CKMBT) 1.00 NG/ML 0.0-5.6 N CKMB INDEX (test code = CKMBI) 3.6 % 4.0-4.4 L BASIC METABOLIC [id number] 09:18:00 Test Item Value Reference Range Interpretation [...] code = 8.9 MG/DL 8.4-10.2 N CA) [id number] 09:18:00 Test Item Value Reference Range Interpretation Comments PHOSPHOROUS (test code = PHOS) 4.2 MG/DL 2.5-4.5 N [id number] 09:18:00 Test Item Value Reference Range Interpretation Comments MAGNESIUM (test code = MAG) MG/DL 1.6-2.3 CPK-MB [id number] 09:18:00 Test Item Value Reference Range Interpretation Comments CREATINE KINASE (CK) (test code = 28 UNITS/L 30-135 L CK) CKMB (test code = CKMBT) NG/ML 0.0-5.6 CKMB INDEX (test code = CKMBI) % 4.0-4.4 BASIC METABOLIC [id number] 09:18:00 Test Item Value Reference Range Interpretation [...] code = 8.9 MG/DL 8.4-10.2 N CA) [id number] 09:18:00 Test Item Value Reference Range Interpretation Comments PHOSPHOROUS (test code = PHOS) 4.2 MG/DL 2.5-4.5 N [id number] 09:18:00 Test Item Value Reference Range Interpretation Comments MAGNESIUM (test code = MAG) 2.0 MG/DL 1.6-2.3 N CPK-MB [id number] 09:18:00 Test Item Value Reference Range Interpretation Comments CREATINE KINASE (CK) (test code = 28 UNITS/L 30-135 L CK) CKMB (test code = CKMBT) NG/ML 0.0-5.6 CKMB INDEX (test code = CKMBI) % 4.0-4.4 BASIC METABOLIC [id number] 09:17:00 Test Item Value Reference Range Interpretation [...] CALCIUM (test code = MG/DL 8.7-9.7 CA) [id number] 09:17:00 Test Item Value Reference Range Interpretation Comments PHOSPHOROUS (test code = PHOS) MG/DL 2.5-4.5 [id number] 09:17:00 Test Item Value Reference Range Interpretation Comments MAGNESIUM (test code = MAG) MG/DL 1.6-2.3 CPK-MB [id number] 09:17:00 Test Item Value Reference Range Interpretation Comments CREATINE KINASE (CK) (test code = UNITS/L 30-135 CK) CKMB (test code = CKMBT) NG/ML 0.0-5.6 CKMB INDEX (test code = CKMBI) % 4.0-4.4 BASIC METABOLIC [id number] 09:15:00 Test Item Value Reference Range Interpretation [...] CALCIUM (test code = CA) MG/DL 8.7-9.7 [id number] 09:15:00 Test Item Value Reference Range Interpretation Comments PHOSPHOROUS (test code = PHOS) MG/DL 2.5-4.5 [id number] 09:15:00 Test Item Value Reference Range Interpretation Comments MAGNESIUM (test code = MAG) MG/DL 1.6-2.3 CPK-MB [id number] 09:15:00 Test Item Value Reference Range Interpretation Comments CREATINE KINASE (CK) (test code = UNITS/L 30-135 CK) CKMB (test code = CKMBT) NG/ML 0.0-5.6 CKMB INDEX (test code = CKMBI) % 4.0-4.4 BASIC METABOLIC [id number] 09:14:00 Test Item Value Reference Range Interpretation [...] CALCIUM (test code = CA) MG/DL 8.7-9.7 [id number] 09:14:00 Test Item Value Reference Range Interpretation Comments PHOSPHOROUS (test code = PHOS) MG/DL 2.5-4.5 [id number] 09:14:00 Test Item Value Reference Range Interpretation Comments MAGNESIUM (test code = MAG) MG/DL 1.6-2.3 CPK-MB [id number] 09:14:00 Test Item Value Reference Range Interpretation Comments CREATINE KINASE (CK) (test code = UNITS/L 30-135 CK) CKMB (test code = CKMBT) NG/ML 0.0-5.6 CKMB INDEX (test code = CKMBI) % 4.0-4.4 CBC W/AUTO [id number] 08:55:00 Test Item Value Reference Range Interpretation [...] = 0.00 K/mm3 0.0-0.1 N NRBC#) DIFFERENTIAL [id number] 08:55:00 Test Item Value Reference Range Interpretation Comments RBC MORPHOLOGY REQUIRED (test code = RBCM) PLATELET ESTIMATE (test code = PLTEST) ADEQUATE PLATELET MORPHOLOGY (test code = NORMAL PLTMORPH) CBC W/AUTO [id number] 08:55:00 Test Item Value Reference Range Interpretation [...] = 0.00 K/mm3 0.0-0.1 N NRBC#) DIFFERENTIAL [id number] 08:55:00 Test Item Value Reference Range Interpretation Comments RBC MORPHOLOGY REQUIRED (test code = RBCM) PLATELET ESTIMATE (test code = PLTEST) ADEQUATE PLATELET MORPHOLOGY (test code = NORMAL PLTMORPH) - XR CHEST [id number] 08:06:00 Patient Name: BREA GILES Unit No: [id number] EXAMS: CPT CODE: [id number] XR CHEST 1V 27475 Single View Chest. Location: B2 Clinical Indication: 73-year-old with dyspnea Comparison: None Fin dings: An AP view of the chest was [...] Alan Pruitt, RT(R) Transcrpt Date/Tm/Trnsp: 06/25/2019 (0806) [email or web address] Orig Print D/T: S: 06/25/2019 (0810) [facility] NAME: BREA GILES [id number] PHYS: [place] [address] : 1945 AGE: 73 SEX: F LOC: Z.I10 A PHONE #: [phone] EXAM DATE: 06/25/2019 STATUS: ADM IN FAX #: [phone] RADIOLOGY NO: PAGE 1 Signed ReportGLUCOSE BEDSIDE [id number] 08:00:00 Test Item Value Reference Range Interpretation Comments GLUCOSE BEDSIDE TESTING (test code 155 MG/DL 60-99 H = GLUBED) COMPREHENSIVE METABOLIC [id number] 07:19:00 Test Item Value Reference Range Interpretation [...] H (test code = ALKP) COMPREHENSIVE METABOLIC [id number] 07:18:00 Test Item Value Reference Range Interpretation [...] 38-126 (test code = ALKP) COMPREHENSIVE METABOLIC [id number] 07:16:00 Test Item Value Reference Range Interpretation [...] code = UNITS/L 38-126 ALKP) COMPREHENSIVE METABOLIC [id number] 07:15:00 Test Item Value Reference Range Interpretation [...] code = UNITS/L 38-126 ALKP) LIPOPROTEIN LDL [id number] 05:23:00 Test Item Value Reference Range Interpretation Comments LIPOPROTEIN LDL DIRECT 84 mg/dL 100-129 L ===== (test code = LDLDIR) ======= ==Refe rence Interval: mg/dL mmol/L--------- ------ ------ ------ --Optimal <100 <2.6Near/above optimal 100-12 9 2.6-3.3Borderli ne High 130-159 3.4-4.1High 160 -189 4.1-4.9Very Hig h >=190 >=4.9==== ===== This LDL result is a direct measurement.=== ====== [id number] 05:23:00 Test Item Value Reference Range Interpretation Comments TROPONIN-I (test 0.127 NG/ML 0.012-0.033 HH CALLED TO D bronwyn O icu & code = TROPI) READBACK ON AT 0500 BY Maddison Ramirez LIPOPROTEIN LDL [id number] 05:02:00 Test Item Value Reference Range Interpretation Comments LIPOPROTEIN LDL DIRECT (test code = mg/dL 100-129 LDLDIR) [id number] 05:02:00 Test Item Value Reference Range Interpretation Comments TROPONIN-I (test 0.127 NG/ML 0.012-0.033 HH CALLED TO Venkat Duran icu & code = TROPI) READBACK ON AT 0500 BY Maddison Ramirez GLUCOSE BEDSIDE [id number] 03:17:00 Test Item Value Reference Range Interpretation Comments GLUCOSE BEDSIDE TESTING (test code 177 MG/DL 60-99 H = GLUBED)
[2023-07-18 15:06] LABS: Absolute Lymphocytes (CBC) 0.4 K/uL (0.7-4.9); Hematocrit 33.3 % (36.0-45.0); Lymphocytes % 2.5 % (15.3-44.8); MCV 92.8 fL (80-100); MPV 7.2 fL (7.6-11.3); Platelets 322 thou/uL (152-406); RBC Red Blood Cell Count 3.59 M/uL (3.86-4.86)
[2023-07-18 15:16] LABS: Protime INR 1.25
--- NOTE | 2023-07-18 15:24 | RAD REPORT ---
EXAM DESCRIPTION: CT - Head Brain Wo Cont - 07/18/2023 3:17 pm CLINICAL HISTORY: SEIZURE Headache, drowsiness, seizure like activity COMPARISON: Head Brain Wo Cont dated 09/11/2021; Head Brain Wo Cont dated 09/13/2019 TECHNIQUE: All CT scans are performed using dose optimization technique as appropriate and may inclu de automated exposure control or mA/KV adjustment according to patient size. FINDINGS: No intracranial hemorrhage, hydrocephalus or extra-axial fluid collection.Mild generalized brain atrophy noted.No areas of brain edema or evidence of midline shift. The paranasal sinuses and mastoids are clear. The calvarium is intact. IMPRESSION: No acute intracranial abnormality.
--- NOTE | 2023-07-18 15:29 | RAD REPORT ---
EXAM DESCRIPTION: RAD - Chest Single View - 07/18/2023 3:23 pm CLINICAL HISTORY: CHEST PAIN Chest pain. COMPARISON: Chest Single View dated 06/06/2023; Chest Single View dated 01/21/2023; Chest Pa And Lat (2 Views) dated 09/07/2021; Chest Single View dated 09/16/2019 FINDINGS: Portable technique limits examination quality. Mild pulmonary edema is seen. The heart is significantly enlarged. Multi lead pacer/defibrillator dev ice present. Sternotomy wires present.Support devices and tubing limit assessment. IMPRESSION: Mild to moderate CHF pattern.
[2023-07-18] MEDS ORDERED: Magnesium Sulfate 2gm IVPB 2 G/50 ML BAG IV ONE (15:34)
[2023-07-18] MEDS ORDERED: AMIODARONE HCL 150 MG/3 ML INJ IV ONE (15:37)
[2023-07-18] MEDS ORDERED: D5W 100 ML IV ONE (15:37)
[2023-07-18] MEDS ORDERED: AMIODARONE IN DEXTROSE,ISO-OSM 360 MG/200 ML BAG IV ONE (15:37)
--- NOTE | 2023-07-18 16:10 | ER ---
Nurse's Notes [facility] Name: Jelyl Garcia Age: 77 yrs Sex: Female : 1945 Arrival Date: 07/18/2023 Time: 14:42 Bed 2 Private MD: Diagnosis: Syncope, chest pain, torsades de points, ventricular tachycardia, possible defibrillator malfunction Presentation: 07/18 14:58 Chief complaint: EMS states: toned out this morning for shaking, not feeling well, pt iw refused transport, they were toned out again for seizure activity, pt had witnessed seizure X 2 per EMS, had runs of Vtach on monitor, pt had recent atrial pacemaker placed a few weeks ago at [facility] and recent CABG. Coronavirus screen: At this time, the client does not indicate any symptoms associated with coronavirus-19. Ebola Screen: Patient negative for fever greater than or equal to 101.5 degrees Fahrenheit, and additional compatible Ebola Virus Disease symptoms Patient denies exposure to infectious person. Patient denies travel to an Ebola-affected area in the 21 days before illness onset. No symptoms or risks identified at this time. 14:58 Method Of Arrival: EMS: [facility] iw 14:58 Acuity: BRIAN 2 iw 15:00 Initial Sepsis Screen: Does the patient meet any 2 criteria? No. Patient's initial iw sepsis screen is negative. Does the patient have a suspected source of infection? No. Patient's initial sepsis screen is negative. Risk Assessment: Do you want to hurt yourself or someone else? Patient reports no desire to harm self or others. Onset of symptoms was July 18, 2023. Triage Assessment: 15:00 General: Appears uncomfortable, Behavior is cooperative. Pain: Denies pain. Neuro: iw Level of Consciousness is awake, alert. Historical: - Allergies: 16:04 No Known Allergies; ld1 - PMHx: 15:00 Atrial Fib; Fibromyalgia; Hypertension; Temporal Arteritis; Diabetes - NIDDM; iw - Immunization history:: Adult Immunizations up to date. - Social history:: Smoking status: Patient denies any tobacco usage or history of. Patient/guardian denies using alcohol. Screenin:00 [facility] ED Fall Risk Assessment (Adult) History of falling in the last 3 months, ld1 including since admission No falls in past 3 months (0 pts). Abuse screen: Denies threats or abuse. Denies injuries from another. Nutritional screening: No deficits noted. Tuberculosis screening: No symptoms or risk factors identified. Assessment: 15:00 Reassessment: ERP at bedside with nursing staff and EMS. Witnessed patient have runs of ld1 Vtach on monitor. Pt reporting discomfort to chest. New pacemaker placement 3 weeks ago per patient. 15:04 Reassessment: Pt placed on cardic defib monitor - continues to have runs of Vtach. ld1 Notified ERP. 15:16 Reassessment: pt transported to CT via stretcher, with CT techs, on defib monitor, iw while in CT, pt went unresponsive, arms rigid and outstretched, pt with torsades on monitor , defib at 200 J, pt immediately responsive, talking, Dr. Angelo to CT scanner. 15:51 Reassessment: Patient appears in no apparent distress at this time. No changes from ld1 previously documented assessment. ERP at bedside discussing results with patient. 17:32 Reassessment: Patient appears in no apparent distress at this time. Patient and/or iw family updated on plan of care and expected duration. Pain level reassessed. Patient is alert, oriented x 3, equal unlabored respirations, skin warm/dry/pink. Vital Signs: 15:00 BP 134 / 45; Pulse 60; Resp 34; Pulse Ox 98% on R/A; ld1 15:51 BP 105 / 48; Pulse 60; Resp 17; Pulse Ox 98% on R/A; ld1 16:03 BP 118 / 49; Pulse 60; Resp 25; Pulse Ox 99% on R/A; Weight 73 kg; Height 5 ft. 0 in. ; ld1 16:04 Temp 97.7(O); ld1 17:32 BP 133 / 57; Pulse 60; Resp 20; Pulse Ox 97% on R/A; iw 16:03 Body Mass Index 31.43 (73.00 kg, 152.4 cm) ld1 Benedict Coma Score: 15:00 Eye Response: spontaneous(4). Motor Response: obeys commands(6). Verbal Response: iw oriented(5). Total: 15. ED Course: 14:45 Patient arrived in ED. eb 14:48 Vonda Angelo MD is Attending Physician. sp3 15:00 Triage completed. iw 15:00 Patient has correct armband on for positive identification. Placed in gown. Bed in low ld1 position. Call light in reach. Side rails up X2. Seizure precautions initiated. Client placed on continuous cardiac and pulse oximetry monitoring. NIBP monitoring applied. monitoring engineer on. Pulse ox on. NIBP on. Warm blanket given. 15:00 Arm band placed on. iw 15:00 Inserted saline lock: 20 gauge in left antecubital area, using aseptic technique. Blood ld1 collected. Maintain EMS IV. Dressing intact. Good blood return noted. Site clean \T\ dry. Gauge \T\ site: 18G RAC. 15:18 CT Head Brain wo Cont In Process Unspecified. EDMS 15:25 XRAY Chest (1 view) In Process Unspecified. EDMS 16:00 initiated a transfer with Bay from the [facility] transfer center at the request of the eb family. 16:18 Agustina from the [facility] transfer center called to collect some more patient info and is eb going to contact Dr. Hawkins patient handle lathe operator. 16:35 Administrative approval given by Agustina Rangel / patient has been accepted to eb [facility] ED/ Dr. Adal Hayes has accepted the patient in transfer without conference with Dr. Melia Arreaga . report to be called to [phone]. 17:04 Ladonna Barbosa, RN is Primary Nurse. iw 17:23 [facility] called for transport. eb 18:03 No provider procedures requiring assistance completed. Patient transferred, IV remains iw in place. Administered Medications: 15:30 Drug: amiodarone IVPB 150 mg 100 ml IVPB once over 10 mins; (mix in D5W) Volume: 100 iw ml; Route: IVPB; Infused Over: 10 mins; Site: right antecubital; 15:40 Follow up: IV Status: Completed infusion iw 15:36 Not Given (Duplicate Order): [id number] mg IVP once iw 15:37 Drug: Magnesium Sulfate IVPB 2 grams IVPB once over 2 hrs Route: IVPB; Infused Over: 2 ld1 hrs; Site: left antecubital; 16:35 Follow up: IV Status: Completed infusion iw 15:45 Drug: amiodarone IVPB 900 mg, D5W IV 500 ml IVPB at 1 mg/min continuous; for 6 hrs, iw then change to 0.5 mg/min Route: IVPB; Rate: 1 mg/min; Site: right antecubital; 18:00 Follow up: IV Status: Infusion continued upon transfer iw Medication: 15:00 VIS not applicable for this client. iw Outcome: 16:10 ER care complete, transfer ordered by . sp3 18:00 Transferred by ground EMS EMS . Transfer form completed. X-rays sent w/ patient. iw Note: [facility] 18:00 Condition: stable 18:00 Instructed on the need for transfer, 18:04 Patient left the ED. iw Signatures: Dispatcher [employer] Ladonna Blake RN RN iw Nasreen Chaudhari Lauren, RN RN ld1 Vonda Angelo MD MD sp3 Corrections: (The following items were deleted from the chart) 16:42 16:35 Administrative approval given by Agustina Rangel / patient has been accepted eb to [facility] ED/ Dr. Adal Hayes has accepted the patient in transfer. report to be called to [phone] eb 17:32 17:32 BP 133 / 57; Pulse 60bpm; Resp 16bpm; Pulse Ox 97% RA; iw iw
--- NOTE | 2023-07-18 16:11 | EDPHYS ---
Physician Documentation [facility] Name: Jelly Garcia Age: 77 yrs Sex: Female : 1945 Arrival Date: 07/18/2023 Time: 14:42 Bed 2 Private MD: ED Physician Vonda Angelo HPI: 07/18 15:58 This 77 yrs old Female presents to ER via EMS with complaints of syncope and vtach. sp3 15:58 77-year-old female with a history of atrial fibrillation, diabetes, hypertension with a sp3 pacemaker/defibrillator in place and status post CABG 1 month ago within the [facility] that presents via EMS to our facility with chief complaint episodic syncope and multiple episodes of ventricular tachycardia while in route on the ambulance monitor. EMS was initially called by family earlier this morning and after they arrived patient refused to come into the ED stating that she had improved. This afternoon symptoms returned and 911 was again activated and EMS found patient with the arrhythmia and transported her here. She states she has episodic chest pain in conjunction with the symptoms. During her syncope episode she becomes fully unresponsive and then awakes once her arrhythmia is resolved. Please see MDM for further documentation of her ED course.. Historical: - Allergies: 16:04 No Known Allergies; ld1 - PMHx: 15:00 Atrial Fib; Fibromyalgia; Hypertension; Temporal Arteritis; Diabetes - NIDDM; iw - Immunization history:: Adult Immunizations up to date. - Social history:: Smoking status: Patient denies any tobacco usage or history of. Patient/guardian denies using alcohol. ROS: 16:01 Constitutional: Negative for fever, chills, and weight loss, Eyes: Negative for injury, sp3 pain, redness, and discharge, Neck: Negative for injury, pain, and swelling, Respiratory: Negative for shortness of breath, cough, wheezing, and pleuritic chest pain, Abdomen/GI: Negative for abdominal pain, nausea, vomiting, diarrhea, and constipation, Back: Negative for injury and pain, MS/Extremity: Negative for injury and deformity, Skin: Negative for injury, rash, and discoloration, Allergy/Immunology: Negative for hives, rash, and allergies, Endocrine: Negative for neck swelling, polydipsia, polyuria, polyphagia, and marked weight changes, Hematologic/Lymphatic: Negative for swollen nodes, abnormal bleeding, and unusual bruising, 16:01 All other systems are negative, Exam: 16:03 Constitutional: This is a well developed, well nourished patient who is awake, alert, sp3 and in no acute distress. Eyes: Pupils equal round and reactive to light, extra-ocular motions intact. Lids and lashes normal. Conjunctiva and sclera are non-icteric and not injected. Cornea within normal limits. Periorbital areas with no swelling, redness, or edema. Neck: Trachea midline, no thyromegaly or masses palpated, and no cervical lymphadenopathy. Supple, full range of motion without nuchal rigidity, or vertebral point tenderness. No Meningismus. Respiratory: Lungs have equal breath sounds bilaterally, clear to auscultation and percussion. No rales, rhonchi or wheezes noted. No increased work of breathing, no retractions or nasal flaring. Back: No spinal tenderness. No costovertebral tenderness. Full range of motion. Skin: Warm, dry with normal turgor. Normal color with no rashes, no lesions, and no evidence of cellulitis. MS/ Extremity: Pulses equal, no cyanosis. Neurovascular intact. Full, normal range of motion. Neuro: Awake and alert, GCS 15, oriented to person, place, time, and situation. Cranial nerves II-XII grossly intact. Motor strength 5/5 in all extremities. Sensory grossly intact. Cerebellar exam normal. Normal gait. Psych: Awake, alert, with orientation to person, place and time. Behavior, mood, and affect are within normal limits. 16:03 Cardiovascular: CABG scar healing without signs of infection. Patient has atrial paced rhythm on the monitor with multiple episodes of ventricular tachycardia and one episode of torsades de points which occurred during her CT scan. Please see MDM section for further documentation., 16:04 ECG was reviewed by the Attending Physician. EKG demonstrates atrial paced rhythm at 60 sp3 bpm with adequate capture and no ectopy. Vital Signs: 15:00 BP 134 / 45; Pulse 60; Resp 34; Pulse Ox 98% on R/A; ld1 15:51 BP 105 / 48; Pulse 60; Resp 17; Pulse Ox 98% on R/A; ld1 16:03 BP 118 / 49; Pulse 60; Resp 25; Pulse Ox 99% on R/A; Weight 73 kg; Height 5 ft. 0 in. ; ld1 16:04 Temp 97.7(O); ld1 17:32 BP 133 / 57; Pulse 60; Resp 20; Pulse Ox 97% on R/A; iw 16:03 Body Mass Index 31.43 (73.00 kg, 152.4 cm) ld1 Paola Coma Score: 15:00 Eye Response: spontaneous(4). Motor Response: obeys commands(6). Verbal Response: iw oriented(5). Total: 15. MDM: 14:48 Patient medically screened. sp3 16:05 Data reviewed: vital signs, nurses notes, EMS record, old medical records, lab test sp3 result(s), EKG, radiologic studies. ED course: 77-year-old female with probable syncope, multiple arrhythmias and chest pain status post CABG 1 month ago. EMS gave report of seizure versus syncope however after evaluation here in the ED I believe she has had multiple syncope episodes during her arrhythmia. She had 2 episodes of V. tach here in the ED which demonstrated the same. CT scan was performed due to altered mental status and possible seizure and during her CT scan, patient had another episode of the V. tach which transitioned into torsades de points. Her defibrillator did not go off during any of these episodes and patient was cardioverted in CT scan by nursing staff. I reviewed the rhythm strip during this episode which demonstrated her first episode of torsades here in the ED. Laboratory values were not back but magnesium 2 g was immediately given after return to the room followed by 150 mg of amiodarone and subsequent amiodarone drip has been started. Family is at the bedside at this point and I have spoken to them and they would like to be transferred to [facility] due to her surgeries and defibrillator and hourly sign language interpreter being and performed there. We will initiate transfer if possible otherwise we will keep her within the [facility] system with transfer to [facility] [place] [facility]. Differential diagnosis includes electrolyte abnormality, reocclusion of her CABG vessels, acute coronary syndrome, among others. Subsequent to above interventions, no further V. tach episodes or torsade episodes have occurred. I spent greater than 30 minutes counseling patient, family, at bedside and performing procedures/directing care on this patient. Total critical care time 30 minutes.. 16:39 ED course: Dr. Adal Hayes accepts patient without conference given transfer sp3 request.. 07/18 14:49 Order name: Basic Metabolic Panel; Complete Time: 16:30 3 07/18 14:49 Order name: CBC with Diff; Complete Time: 15:32 3 07/18 14:49 Order name: LFT's; Complete Time: 16:30 3 07/18 14:49 Order name: Magnesium; Complete Time: 16:30 3 07/18 14:49 Order name: NT PRO-BNP; Complete Time: 16:30 3 07/18 14:49 Order name: PT-INR; Complete Time: 15:32 3 07/18 14:49 Order name: Troponin HS; Complete Time: 16:30 3 07/18 14:49 Order name: XRAY Chest (1 view); Complete Time: 15:32 3 07/18 14:50 Order name: CT Head Brain wo Cont; Complete Time: 15:32 3 07/18 14:49 Order name: EKG; Complete Time: 14:50 3 07/18 14:49 Order name: Cardiac monitoring; Complete Time: 15:00 3 07/18 14:49 Order name: EKG - Nurse/Tech; Complete Time: 15:00 3 07/18 14:49 Order name: IV Saline Lock; Complete Time: 15:00 3 07/18 14:49 Order name: Labs collected and sent; Complete Time: 15:00 3 07/18 14:49 Order name: O2 Per Protocol; Complete Time: 15:00 3 07/18 14:49 Order name: O2 Sat Monitoring; Complete Time: 15:00 3 07/18 15:15 Order name: Labs - recollect needed: GREEN TOP; Complete Time: 15:50 ll1 Administered Medications: 15:30 Drug: amiodarone IVPB 150 mg 100 ml IVPB once over 10 mins; (mix in D5W) Volume: 100 iw ml; Route: IVPB; Infused Over: 10 mins; Site: right antecubital; 15:40 Follow up: IV Status: Completed infusion iw 15:36 Not Given (Duplicate Order): [id number] mg IVP once iw 15:37 Drug: Magnesium Sulfate IVPB 2 grams IVPB once over 2 hrs Route: IVPB; Infused Over: 2 ld1 hrs; Site: left antecubital; 16:35 Follow up: IV Status: Completed infusion iw 15:45 Drug: amiodarone IVPB 900 mg, D5W IV 500 ml IVPB at 1 mg/min continuous; for 6 hrs, iw then change to 0.5 mg/min Route: IVPB; Rate: 1 mg/min; Site: right antecubital; 18:00 Follow up: IV Status: Infusion continued upon transfer iw Disposition Summary: 07/18/23 16:10 Transfer Ordered Notes: Transfer Location: Other Acute Care Facility sp3 Reason: Higher level of care sp3 Condition: Stable sp3 Problem: an acute exacerbation sp3 Symptoms: have worsened sp3 Accepting Physician: [facility], second class welder and cardiology team(07/18/23 18:04) iw Diagnosis - Syncope, chest pain, torsades de points, ventricular tachycardia, possible sp3 defibrillator malfunction Forms: - Medication Reconciliation Form sp3 - SBAR form sp3 Signatures: Dispatcher [employer] Ladonna Blake RN RN iw Eva Patel RN RN ll1 Mariaa Roland RN RN ld1 Vonda Angelo MD MD sp3 Corrections: (The following items were deleted from the chart) 18:04 16:[address] [facility], second class welder and cardiology team sp3 iw
[2023-07-18 16:23] LABS: Albumin 2.7 g/dL (3.4-5.0); Bilirubin Direct 0.3 mg/dL (0-0.2); Bilirubin Indirect, Calculated 0.4 mg/dL (0.2-0.8); Bilirubin Total 0.7 mg/dL (0.2-1.0); Magnesium 1.9 mg/dL (1.6-2.4); Potassium 4.7 mEq/L (3.5-5.1); Protein, Total 5.7 g/dL (6.4-8.2)
[2023-07-18 16:29] LABS: Troponin High Sensitivity 577.3 pg/mL (<58.9)
[2023-07-18 19:00] VITALS: TEMP 97.7
[2023-07-18 19:01] VITALS: BP 133/57; O2SAT 97
--- NOTE | 2023-07-19 11:22 | EKG ---
Test Date: 2023-07-18 Test Time: 14:56:20 Parliamentary Librarian: LILY MEASUREMENT RESULTS: Intervals: Rate: 60 MN: 226 QRSD: 70 QT: 464 QTc: 464 [place]: P: MN: 226 QRS: 23 T: 57 INTERPRETIVE STATEMENTS: Sinus rhythm with 1st degree AV block Low voltage QRS Cannot rule out Anterior infarct, age undetermined Abnormal ECG Compared to ECG 06/06/2023 14:08:57 First degree AV block now present Low QRS voltage now present Myocardial infarct finding now present Ventricular premature complex(es) no longer present T-wave abnormality no longer present Possible ischemia no longer present Electronically Signed On 07-19-23 11:18:44 CDT by Mark Perez
== END 2023-07-18 18:04 ==
LOC: ER 14:42
DX: R55 Syncope and collapse (principal); R07.89 Other chest pain; I47.21 Torsades de pointes; I48.91 Unspecified atrial fibrillation; I10 Essential (primary) hypertension; E11.9 Type 2 diabetes mellitus without complications; Z95.810 Presence of automatic (implantable) cardiac defibrillator; Z95.1 Presence of aortocoronary bypass graft
CPT/HCPCS: 93005; 85025; 80048; 36415; 83735; 85610; 80076; 84484; 83880; 70450; 71045; 99285; J3475; J0282 ×2

== ENCOUNTER 2023-08-21 08:59 | Emergency (ER) | payer OTHER ==
--- OUTSIDE RECORDS SUMMARY | 2023-08-21 09:14 | XMS REPORT | Continuity of Care Document ---
:1945 Author Organization [facility] t Address [address] [facility] [address] [place] [address] Care Team Providers Name Role Phone No, Pcp [facility] Primary Care Physician Unavailable [id number] Attending Clinician Unavailable CAREN HORAN NATASHA Attending Clinician Unavailable JUAN MALONEY Attending Clinician Unavailable EVELINA LEAL Attending Clinician Unavailable Viviana Thompson Attending Clinician Unavailable MICHAEL ANDERSON Attending Clinician Unavailable COLLEEN BROWN Attending Clinician Unavailable FORD VERA Attending Clinician Unavailable Adrian Sorensen Attending Clinician Unavailable VIRA HYDE Attending Clinician Unavailable ALE SOLANO Attending Clinician Unavailable Kaia Nolan Attending Clinician Unavailable DANIEL MCKEON Attending Clinician Unavailable PATSY MCCONNELL Attending Clinician [...] Clinician Unavailable Vira Hyde MD Attending Clinician [phone] ELYSSA BEARD Attending Clinician Unavailable AICHA ALVARADO Attending Clinician Unavailable Beau Claire Attending Clinician Unavailable JOBY CRAWFORD Attending Clinician Unavailable JAYLIN BEARD Attending Clinician Unavailable JONA CORRALES Attending Clinician Unavailable [id number] Admitting Clinician Unavailable CAREN HORAN NATASHA Admitting Clinician Unavailable Viviana Thompson Admitting Clinician Unavailable Adrian Sorensen Admitting Clinician Unavailable Shahnaz Miller Admitting Clinician Unavailable Physician, No Primary or Family Admitting Clinician Unavaila ble Payers Payer Name Policy Type Policy Number Effective Date Expiration Date Melia JONES [id number] [employer] 16 [id number] 2021 00:00:00 HMO-POS Problems Condition Condition Condition Status Onset Resolution Last Treating Co mments Source Name Details Category Date Date Treatment Clinician Date Diarrhea Diarrhea Disease Active Kelse y of of 5-24 Seybold presumed presumed 00:00: - infectious infectious 00 Ex terna origin origin l Immunodefi Immunodefi Disease Active K elsey ciency due ciency due 5-19 Se ybold to to 00:00: - conditions conditions 00 Ex terna classified classified l elsewhere elsewhere Chronic Chronic Disease Active Adeola kidney kidney 5-19 Seybold disease, disease, 00:00: - stage 5, stage 5, 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 00:00: - eyes eyes 00 Externa l Bacteremia Bacteremia Disease Active Adilene wright - - -20 Seybold Unchanged Unchanged 00:00: - 00 Externa l GERD GERD Disease Active 2020-10 Adeola (gastroeso (gastroeso 2-06 Se ybold phageal phageal 00:00: - reflux reflux 00 Externa disease) disease) l Hypertensi Hypertensi Disease Active Adilene wright on, on, 06-15 Seybold essential essential 00:00: - 00 Externa l Congestive Congestive Disease Active 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 00:00: [...] 00:00: - stage IV stage IV 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) (severe) l Hypertensi Hypertensi Disease Active K parrishy ve heart ve heart 04-28 Seybol d and renal and renal 00:00: - disease disease 00 Externa with with l congestive congestive heart heart failure failure 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) 00:00: - 00 Externa l Allergies, Adverse Reactions, Alerts Allergy Allergy Status Severity Reaction(s) Onset Inactive Treating Comm ents Source Name Type Date Date Clinician Pork/Por FA Active [facility] cine 07-02 Containi 00:00: [place] [id number] [facility] sucralos FA Active [facility] 07-02 00:00: [address] sacchari FA Active [facility] 07-01 00:00: [address] aspartam FA Active [facility] 07-01 00:00: [address] sacchari FA Active [facility] n 06-11 Clear 00:00: [address] ARTIFICI DA Active [facility] AL 06-10 West SWEETNER 00:00: [address] No Known DA Active [facility] Allergie 06-25 Clear s 00:00: [address] No Known DA Active [facility] Allergie 06-25 West s 00:00: [address] Sugar-Pr Propensi Active Adeola otein-St ty to 4-11 Seybold arch adverse 00:00: - reaction 00 Externa s l Wheat Propensi Active Adeola Husk ty to -11 Seybold Fiber adverse 00:00: - reaction 00 Externa s l NO KNOWN Allergy Active [facility] S Social History Social Habit Start Date Stop Date Quantity Comments Source Sexual orientation [facility] Exposure to Not sure Adeola robledo SARS-CoV-2 (event) History SDOH Adeola martinez Alcohol Frequency - Exter nal History SDOH Adeola martinez Alcohol Std Drinks - Exte rnal History SDOH Adeola martinez Alcohol Binge - External Gender identity Adeola garcia - External Tobacco use and 2023-02-23 2023-02-23 Smokeless tobacco Ke nino Alamoybold exposure 00:00:00 00:00:00 non-user - External Alcohol intake 2023-02-23 2023-02-23 Current drinker Lilia Sierra 00:00:00 00:00:00 of alcohol - External (finding) Alcohol Comment 2022-03-14 2022-03-14 occ. Adeola garcia 00:00:00 00:00:00 - External History of Social 2021-04-24 2021-04-24 Adeola Sierra function 00:00:00 00:00:00 - External Sex [birth year] [facility] 00:00:00 00:00:00 [facility] Smoking Status Start Date Stop Date [...] - MEMORY 07 Externa COMPLEX OR) l [place]-3 300 Yes Take by Rob alamoy MG oral 5-24 mouth Seybold Capsule 11:49: - 07 Externa l Cholecalcif Yes [id number] Take Rob boby som (D3 5-24 10,000 mg Seybol d [...] times daily Furosemide Yes TAKE ONE Rob sheikh (LASIX) 20 4-25 (1) Seybold MG oral [...] - MEMORY 23 Externa COMPLEX OR) l [place]-3 300 Yes Take by Rob sey MG oral 2-08 mouth Seybold Capsule 13:08: - 23 Externa l Cholecalcif Yes [id number] Take Rob sey som (D3 2-08 10,000 [...] - MEMORY 20 Externa COMPLEX OR) l [place]-3 300 Yes Take by Rob sey MG oral 1-04 mouth Seybold Capsule 12:47: - 20 Externa l Cholecalcif Yes [id number] Take Rob sey som (D3 1-04 10,000 [...] (ZINC OR) 20 Externa l Metformin Yes [id number] 500mg Take 1 K elsey HCl ER 500 1-04 tablet Seybold MG oral 00:00: (500 mg - TABLET SR 00 total) by Exter na 24 HR mouth l daily (with breakfast) Metformin Yes [id number] 500mg Take 1 K elsey HCl ER 500 1-04 tablet Seybold MG oral 00:00: (500 mg - TABLET SR 00 total) by Exter na 24 HR mouth l daily (with breakfast) Metformin Yes [id number] 500mg Take 1 K elsey HCl ER 500 1-04 tablet Seybold MG oral 00:00: (500 mg - TABLET SR 00 total) by Exter na 24 HR mouth l daily (with breakfast) Tramadol 2021-10 Yes [id number] TAKE Kelse y HCl 50 MG 2-09 ONE-HALF Seybol d oral Tablet 00:00: (10/04) - 00 TABLET(S) Externa BY MOUTH l DAILY NEEDED FOR PAIN. Tramadol 2021-10 Yes [id number] TAKE Kelse y HCl 50 MG 2-09 ONE-HALF Seybol d oral Tablet 00:00: (10/04) - 00 TABLET(S) Externa BY MOUTH l DAILY NEEDED FOR PAIN. Tramadol 2021-10 Yes [id number] TAKE Kelse y HCl 50 MG 2-09 ONE-HALF Seybol d oral Tablet 00:00: (10/04) - 00 TABLET(S) Externa BY MOUTH l DAILY NEEDED FOR PAIN. Pantoprazol 2021-10- No TAKE ONE K elsey e Sodium 20 11-11 (1) Seybold MG oral 00:00: 00:00 TABLET(S) - Tablet 00 :00 BY MOUTH Externa Delayed ONCE A l Response DAY. 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 Continuous 2021-10- No [id number] Use device Adeola Blood Gluc 0-10-06 to check Seyb old Ekg Manager 00:00: 00:00 blood - (Dexcom G5 00 :00 sugars 3-4 Ext parul Ekg Manager times l Kit) does daily and not apply PRN Device Continuous 2021-10- No [id number] Patient to Adeola Blood Gluc 0-10-06 check Seybold Sensor 00:00: 00:00 blood - [...] - MEMORY 51 Externa COMPLEX OR) l [place]-3 300 Yes Take by Rob sey MG oral 9-20 mouth Seybold Capsule 14:06: - 51 Externa l diphenhydrA Yes 25mg Apply 25 Ke lsey MINE-Zinc 9-20 mg Seybold Acetate 14:06: topically - (BENADRYL 51 Externa EX) l Methylsulfo Yes Take by Rob sey nylmethane 9-20 mouth Seybold (MSM) 1000 14:06: - MG oral 51 Externa Capsule l Multiple Yes Take by Adeola Vitamins-Mi 9-20 mouth Seybold nerals 14:06: - (ZINC OR) 51 Externa l Pantoprazol Yes TAKE ONE Ke lsey e Sodium 20 8-26 (1) Seybold MG oral 00:00: TABLET(S) - Tablet 00 BY MOUTH Externa Delayed ONCE A l Response DAY. Lidocaine Yes [id number] Take 3 ml Adeola HCl 8-11 by mouth Seybold (Lidocaine 00:00: every 4-6 - Viscous 00 hours as Externa HCl) 2 % needed for l mouth/throa throat t Solution pain. Lidocaine 3- No [id number] Take 3 ml Adeola HCl 8-11 01-04 by mouth Seybold (Lidocaine 00:00: 00:00 every 4-6 - Viscous 00 :00 hours as Externa HCl) 2 % needed for l mouth/throa throat t Solution pain. Cholecalcif Yes [id number] Take Rob sey som (D3 7-18 10,000 mg Seybol d MAXIMUM 13:29: by mouth - STRENGTH 51 Externa OR) l Metformin Yes [id number] 500mg Take 1 K elsey HCl ER 500 7-18 tablet Seybold MG oral 00:00: (500 mg - TABLET SR 00 total) by Exter na 24 HR mouth l daily (with breakfast) Duloxetine Yes [id number] 60mg Take 1 Adeola HCl 60 MG 7-18 5 capsule Seybold oral Cap DR 00:00: (60 mg - Particles 00 total) by Exter na mouth 2 l times daily Continuous Yes [id number] Use as K elsey Blood Gluc 7-18 directed Seybo ld Ekg Manager 00:00: - (FreeStyle 00 Externa Luis Miguel 14 l Day [place]) does not apply Device Continuous Yes [id number] Use as K elsey Blood Gluc 7-18 directed Seybo ld Sensor 00:00: - (FreeStyle 00 Externa Luis Miguel 14 l Day Sensor) does not apply Misc Duloxetine Yes [id number] 60mg Take 1 Adeola HCl 60 MG 7-18 5 capsule Seybold oral Cap DR 00:00: (60 mg - Particles 00 total) by Exter na mouth 2 l times daily Duloxetine Yes [id number] 60mg Take 1 Adeola HCl 60 MG 7-18 5 capsule Seybold oral Cap DR 00:00: (60 mg - Particles 00 total) by Exter na mouth 2 l times daily Duloxetine 0 Yes [id number] 60mg Take 1 Adeola HCl 60 MG 7-18 5 capsule Seybold oral Cap DR 00:00: (60 mg - Particles 00 total) by Exter na mouth 2 l times daily ACETAMINOPH 2021-0 Yes [id number] 1{tbl} Q4H Take 1 Adeola EN-CAFF-BUT 7-01 tablet by Setrent bold ALBITAL 00:00: mouth - 50-325-40 00 every 4 Externa MG oral hours as l Tablet needed for pain ACETAMINOPH 2021-0 Yes [id number] 1{tbl} Q4H Take 1 Adeola EN-CAFF-BUT 7-01 tablet by Setrent bold ALBITAL 00:00: mouth - 50-325-40 00 every 4 Externa MG oral hours as l Tablet needed for pain ACETAMINOPH 2021-0 Yes [id number] 1{tbl} Q4H Take 1 Adeola EN-CAFF-BUT 7-01 tablet by Sey bold ALBITAL 00:00: mouth - 50-325-40 00 every 4 Externa MG oral hours as l Tablet needed for pain ACETAMINOPH 2021-0 Yes [id number] 1{tbl} Q4H Take 1 Adeola EN-CAFF-BUT 7-01 tablet by Sey bold ALBITAL 00:00: mouth - 50-325-40 00 every 4 Externa MG oral hours as l Tablet needed for pain Omeprazole 2022-0 Yes 40mg Take 1 Kelse y 40 [...] total) by Externa Capsule mouth l daily [place]-3-aci Yes [id number] TAKE TWO Adeola d Ethyl 4-07 (2) Seybold Esters 1 g 00:00: CAPSULE(S) - oral 00 BY MOUTH Externa Capsule TWICE A l DAY. [place]-3-aci 3- No [id number] TAKE TWO Adeola d Ethyl 4-07 01-04 [...] nerals (HM 13:05: MEMORY 35 COMPLEX OR) [place]-3 300 Yes Take by Rob alamoy MG oral 3-28 mouth Seybold Capsule 13:05: 35 Cholecalcif Yes [id number] Take Rob sheikh som (D3 3-28 10,000 mg Seybol d MAXIMUM 13:05: by mouth STRENGTH 35 OR) diphenhydrA Yes 25mg Apply 25 Ke lsey MINE-Zinc 3-28 mg Seybold Acetate 13:05: topically (BENADRYL 35 EX) Methylsulfo Yes Take by Rob trent nylmethane 3-28 mouth Seybold (MSM) 1000 13:05: MG oral 35 Capsule Multiple Yes Take by Adeola Vitamins-Mi 3-28 mouth Seybold nerals 13:05: (ZINC OR) 35 diphenhydrA Yes [id number] Apply 1 Adeola MINE HCl 2 3-28 applicatio Sey bold % apply 00:00: n externally 00 topically Cream 3 to 4 times daily diphenhydrA Yes [id number] 25mg Take 1 Adeola MINE 3-28 tablet (25 Seybold (BENADRYL) 00:00: mg total) 25 MG oral 00 by mouth Tablet once for 1 dose diphenhydrA Yes [id number] Apply 1 Adeola MINE HCl 2 3-28 applicatio Sey bold % apply 00:00: n - externally 00 topically Exte rna Cream 3 to 4 l times daily diphenhydrA 0 Yes [id number] 25mg Take 1 Adeola MINE 3-28 tablet (25 Seybold (BENADRYL) 00:00: mg total) - 25 MG oral 00 by mouth Exter na Tablet once for 1 l dose diphenhydrA 0 Yes [id number] Apply 1 Adeola MINE HCl 2 3-28 applicatio Sey bold % apply 00:00: n - externally 00 topically Exte rna Cream 3 to 4 l times daily diphenhydrA 2021-0 Yes [id number] 25mg Take 1 Adeola MINE 3-28 tablet (25 Seybold (BENADRYL) 00:00: mg total) - 25 MG oral 00 by mouth Exter na Tablet once for 1 l dose diphenhydrA 2021-0 Yes [id number] Apply 1 Adeola MINE HCl 2 3-28 applicatio Sey bold % apply 00:00: n - externally 00 topically Exte rna Cream 3 to 4 l times daily diphenhydrA 0 Yes [id number] 25mg Take 1 Adeola MINE 3-28 tablet (25 Seybold (BENADRYL) 00:00: mg total) - 25 MG oral 00 by mouth Exter na Tablet once for 1 l dose diphenhydrA Yes [id number] Apply 1 Adeola DANIELSON HCl 2 3-28 applicatio Boby bold % apply 00:00: n - externally 00 topically Exte rna Cream 3 to 4 l times daily diphenhydrA Yes [id number] 25mg Take 1 Adeola MINE 3-28 tablet (25 Seybold (BENADRYL) 00:00: mg total) - 25 MG oral 00 by mouth Exter na Tablet once for 1 l dose diphenhydrA Yes 25mg Apply 25 Ke aviey MINE-Zinc 3-04 mg Seybold Acetate 15:42: topically (BENADRYL 33 EX) Digoxin 125 Yes 125ug Take 125 K elsey MCG oral 3-04 mcg by Seybold Tablet 15:42: mouth 20 daily Cyanocobala Yes Take by Rob sheikh min (B-12) 3-04 mouth Seybold 1000 MCG 15:42: oral 20 Lozenge Multiple Yes Take by Adeola Vitamins-Mi 3-04 mouth Seybold nerals (HM 15:42: MEMORY 20 COMPLEX OR) [place]-3 300 Yes Take by Rob sheikh MG oral 3-04 mouth Seybold Capsule 15:42: 20 Cholecalcif Yes [id number] Take Rob sheikh som (D3 3-04 10,000 [...] GM/177ML during oral office Solution visit. Na 0 Yes Instructio Adeola Sulfate-K 3-04 n given [...] Adeola Sulfate-K 3-04 05-24 n given to Sey bold Sulfate-Mg 00:00: 00:00 patient in - Sulf 00 :00 clinic. Externa (Suprep Use as l Bowel Prep directed Kit) by 17.5-3.13-1 provider .6 GM/177ML during oral office Solution visit. Aspirin 81 2021- No 81mg Take 81 mg Adeola MG oral 11-24 by mouth Seybold Chewable 14:37: 00:00 daily Tablet 43 :00 Omeprazole 2021- No [id number] 20mg Take 20 mg Adeola 20 MG oral 11-24 by mouth Seyb old Delayed 14:32: 00:00 daily Release 11 :00 Capsule Mirabegron 2021- No Take by Rob sey ER -11-24 mouth Seybold (Myrbetriq) 14:30: 00:00 50 MG oral 49 :00 TABLET SR 24 HR Digoxin 125 2021- Yes 125ug Take 125 K elsey MCG oral 2-22 mcg by Seybold Tablet 14:15: mouth 14 daily Cyanocobala Yes Take by Rob sheikh min (B-12) 2-22 mouth Seybold 1000 MCG 14:15: oral 14 Lozenge Multiple Yes Take by Adeola Vitamins-Mi 2-22 mouth Seybold nerals (HM 14:15: MEMORY 14 COMPLEX OR) [place]-3 300 Yes Take by Rob alamoy MG oral 2-22 mouth Seybold Capsule 14:15: 14 Cholecalcif Yes [id number] Take Rob sheikh som (D3 2-22 10,000 mg Seybol d [...] nerals 14:15: (ZINC OR) 14 Tramadol Yes [id number] 25mg Q24H Take 0.5 K elsey HCl 50 MG 2-22 tablets Seybold oral Tablet 00:00: (25 mg 00 total) by mouth daily as needed for pain [place]-3-aci Yes [id number] 2g Take 2 Adeola d Ethyl 2-22 capsules Seybold Esters 1 g 00:00: (2 g oral 00 total) by Capsule mouth 2 times daily Metformin Yes [id number] 500mg Take 1 K elsey HCl ER 500 2-22 tablet Seybold MG oral 00:00: (500 mg TABLET SR 00 total) by 24 HR mouth daily (with breakfast) Pantoprazol Yes [id number] 20mg Take 1 Adeola e Sodium 20 2-22 tablet (20 Se ybold MG oral 00:00: mg total) Tablet 00 by mouth Delayed daily Response Tramadol Yes [id number] 25mg Q24H Take 0.5 K elsey HCl 50 MG 2-22 tablets Seybold oral Tablet 00:00: (25 mg 00 total) by mouth daily as needed for pain [place]-3-aci Yes [id number] 2g Take 2 Adeola d Ethyl 2-22 capsules Seybold Esters 1 g 00:00: (2 g oral 00 total) by Capsule mouth 2 times daily Metformin Yes [id number] 500mg Take 1 K elsey HCl ER 500 2-22 tablet Seybold MG oral 00:00: (500 mg TABLET SR 00 total) by 24 HR mouth daily (with breakfast) Pantoprazol Yes [id number] 20mg Take 1 Adeola e Sodium 20 2-22 tablet (20 Se ybold MG oral 00:00: mg total) Tablet 00 by mouth Delayed daily Response Tramadol Yes [id number] 25mg QD Take 0.5 K elsey HCl 50 MG 2-22 tablets Seybold oral Tablet 00:00: (25 mg 00 total) by mouth daily as needed for pain [place]-3-aci Yes [id number] 2g Take 2 Adeola d Ethyl 2-22 capsules Seybold Esters 1 g 00:00: (2 g oral 00 total) by Capsule mouth 2 times daily Metformin Yes [id number] 500mg Take 1 K elsey HCl ER 500 2-22 tablet Seybold MG oral 00:00: (500 mg TABLET SR 00 total) by 24 HR mouth daily (with breakfast) Tramadol Yes [id number] 25mg QD Take 0.5 K elsey HCl 50 MG 2-22 tablets Seybold oral Tablet 00:00: (25 mg - 00 total) by Externa mouth l daily as needed for pain Pantoprazol 2021- No [id number] 20mg Take 1 Adeola e Sodium 20 2-22 -28 tablet (20 S eybold MG oral 00:00: 00:00 mg total) Tablet 00 :00 by mouth Delayed daily Response Omeprazole 2021- No [id number] 20mg Take 1 Adeola 20 MG oral 2-22 - capsule Seybo ld Delayed 00:00: 00:00 (20 mg Release 00 :00 total) by Capsule mouth daily Amoxicillin 2021- No [id number] 1{tbl} Take 1 Adeola -Pot 1-27 - [...] nerals (HM 14:55: MEMORY 32 COMPLEX OR) [place]-3 300 Yes Take by Rob alamoy MG oral 1-20 mouth Seybold Capsule 14:55: 32 Cholecalcif Yes [id number] Take Rob sheikh som (D3 1-20 10,000 [...] nerals 14:55: (ZINC OR) 32 Omeprazole Yes [id number] 20mg Take 20 mg Adeola 20 MG oral 1-20 by mouth Seybo ld Delayed 14:55: daily Release 32 Capsule Vancomycin Yes [id number] TAKE 1 Ke lsey HCl 125 MG 1-07 CAPSULE BY Sey bold oral 00:00: MOUTH Capsule 00 EVERY 6 HOURS FOR 10 DAYS Vancomycin 2021-0 2- No [id number] TAKE 1 K elsey HCl 125 MG 1-07 -22 CAPSULE BY Se ybold oral 00:00: 00:00 MOUTH Capsule 00 :00 EVERY 6 HOURS FOR 10 DAYS Sacubitril- 2021-0 2- No 1{tbl} Take 1 K elsey Valsartan 10-08- tablet by Mitesh old 49-51 MG 09:48: 00:00 mouth 2 oral Tablet 08 :00 times daily Omeprazole Yes [id number] 20mg Take 20 mg Adeola 20 MG oral 10-08 by mouth Seybo ld Delayed 09:11: daily Release 55 Capsule Aspirin 81 Yes 81mg Take 81 mg K elsey MG oral 10-08 by mouth Seybold Chewable 09:11: daily Tablet 54 Digoxin 125 Yes 125ug Take 125 K elsey MCG oral - mcg by Seybold Tablet 09:11: mouth 54 daily Cyanocobala Yes Take by Rob sheikh min (B-12) 10-08 mouth Seybold 1000 MCG 09:11: oral 54 Lozenge Mirabegron Yes Take by Yulissa ey ER 10-08 mouth Seybold (Myrbetriq) 09:11: 50 MG oral 54 TABLET SR 24 HR Multiple Yes Take by Adeola Vitamins-Mi - mouth Seybold nerals (HM 09:11: MEMORY 54 COMPLEX OR) [place]-3 300 Yes Take by Rob alamoy MG oral 10-08 mouth Seybold Capsule 09:11: 54 Cholecalcif Yes [id number] Take Rob sheikh som (D3 10-08 10,000 [...] 00 daily oral Tablet Tramadol 2020-10 Yes [id number] 25mg Q24H Take 0.5 K elsey HCl [...] lsey Valsartan 2-06 tablet by Seybo ld ([facility]) 00:00: mouth 97-103 MG 00 daily oral Tablet Tramadol 2020-10 Yes [id number] 25mg Q24H Take 0.5 K elsey HCl [...] lsey Valsartan 2-06 tablet by Seybo ld ([facility]) 00:00: mouth 97-103 MG 00 daily oral [...] lsey Valsartan 2-06 tablet by Seybo ld ([facility]) 00:00: mouth 97-103 MG 00 daily oral Tablet Amiodarone 2020-10 Yes 200mg Take 1 Yulissa ey HCl 200 MG 2-06 tablet Seybold oral Tablet 00:00: (200 mg - 00 total) by Externa mouth 2 l times daily Sacubitril- 2020-10 Yes 1{tbl} Take 1 Ke lsey Valsartan 2-06 tablet by Seybo ld ([facility]) 00:00: mouth - 97-103 MG 00 daily Externa oral Tablet l Amiodarone 2020-10 Yes 200mg Take 1 Yulissa ey HCl 200 MG 2-06 tablet Seybold oral Tablet 00:00: (200 mg - 00 total) by Externa mouth 2 l times daily Sacubitril- 2020-10 Yes 1{tbl} Take 1 Ke lsey Valsartan 2-06 tablet by Seybo ld ([facility]) 00:00: mouth - 97-103 MG 00 daily Externa oral Tablet l Amiodarone 2020-10 Yes 200mg Take 1 Yulissa ey HCl 200 MG 2-06 tablet Seybold oral Tablet 00:00: (200 mg - 00 total) by Externa mouth 2 l times daily Sacubitril- 2020-10 Yes 1{tbl} Take 1 Ke lsey Valsartan 2-06 tablet by Seybo ld ([facility]) 00:00: mouth - 97-103 MG 00 daily Externa oral Tablet l Amiodarone 2020-10 Yes 200mg Take 1 Yulissa ey HCl 200 MG 2-06 tablet Seybold oral Tablet 00:00: (200 mg - 00 total) by Externa mouth 2 l times daily Sacubitril- 2020-10 Yes 1{tbl} Take 1 Ke lsey Valsartan 2-06 tablet by Sealberto ld (Entresto) 00:00: mouth - 97-103 MG 00 daily Externa oral Tablet l Tramadol 2020-10- No [id number] 25mg Q24H Take 0.5 Adeola HCl 50 MG 2-06 02-22 tablets Seybol d oral Tablet 00:00: 00:00 (25 mg 00 :00 total) by mouth daily as needed for pain Duloxetine 2020-10- No 60mg Take 1 Yulissa ey HCl 60 MG 0-14 12-06 capsule Seybol d oral Cap DR 00:00: 00:00 (60 mg Particles 00 :00 total) by mouth daily Mupirocin Yes [id number] Apply to Adeola (BACTROBAN) 9-27 scratch 3 Sey bold 2 % apply 00:00: times a externally 00 day. Ointment Mupirocin Yes [id number] Apply to Adeola (BACTROBAN) 9-27 scratch 3 Sey bold 2 % apply 00:00: times a externally 00 day. Ointment Mupirocin Yes [id number] Apply to Adeola (BACTROBAN) 9-27 scratch 3 Sey bold 2 % apply 00:00: times a externally 00 day. Ointment Mupirocin Yes [id number] Apply to Adeola (BACTROBAN) 9-27 scratch 3 Sey bold 2 % apply 00:00: times a externally 00 day. Ointment Mupirocin 2021- No [id number] Apply to Adeola (BACTROBAN) 9-27 02-22 scratch 3 Se ybold 2 % apply 00:00: 00:00 times a externally 00 :00 day. Ointment Latanoprost Yes 1[drp] Place 1 K elsey [...] oral Tablet 02 times daily Digoxin 125 2020-0 Yes 125ug Take 125 K elsey MCG [...] nerals (HM 13:53: MEMORY 02 COMPLEX OR) [place]-3 300 Yes Take by Rob alamoy MG oral 8-17 mouth Seybold Capsule 13:53: 02 Cholecalcif Yes [id number] Take Rob sheikh som (D3 8- 10,000 [...] nerals (HM 13:53: MEMORY 02 COMPLEX OR) [place]-3 300 Yes Take by Rob alamoy MG oral 8-17 mouth Seybold Capsule 13:53: 02 Cholecalcif 0 Yes [id number] Take Rob sheikh som (D3 8-17 10,000 [...] mg total) 00 by mouth daily Carvedilol No 6.25mg Take 1 Ke lsey 6.25 MG 05-19 tablet Seybold oral Tablet 00:00: 00:00 (6.25 mg - 00 :00 total) by Externa mouth 2 l times daily (with meals) Sacubitril- 2020- No 1{tbl} Take 1 K elsey Valsartan 05-19 tablet by Seyb old (Entresto) 00:00: 00:00 mouth 97-103 MG 00 :00 daily oral Tablet Amiodarone No 200mg Take 1 Rob sey HCl [...] mouth daily Rivaroxaban Yes 15mg Take 1 Yulisas ey (Xarelto) 7-29 tablet (15 Seyb old [...] ONCE Tablet 00 DAILY WITH MEALS Rosuvastati 2021-0 Yes TAKE 1 Yulissa ey n Calcium 6-28 TABLET BY Seybo ld 20 MG oral 00:00: MOUTH ONCE Tablet 00 DAILY WITH MEALS Omeprazole 0 Yes 20mg Take 20 mg K elsey 20 MG oral 6-28 by mouth Seybo ld Delayed 00:00: daily Release 00 Capsule Rosuvastati 0 Yes TAKE 1 Yulissa ey [...] Diastolic blood 2023-02-23 16:42:00 83 mm[Hg] Lilia Sierra - pressure External Heart rate 2023-02-23 16:35:00 58 /min Adeola lopez - External Body temperature 2023-02-23 16:35:00 36.17 Erika Yulissa ey Seybold - External Respiratory rate 2023-02-23 16:35:00 18 /min Yulissa zelaya Seybold - External Body height 2023-02-23 16:35:00 [...] Diastolic blood 2022-11-10 19:07:00 69 mm[Hg] Lilia newman Seybold - pressure External Heart rate 2022-11-10 19:07:00 59 /min Adeola zelayabold - External Body temperature 2022-11-10 19:07:00 36.5 [...] S eybold BMI 2021-09-07 17:02:00 33.98 kg/m2 Adeola S eybold Systolic blood 2021-06-29 18:45:00 116 mm[Hg] Adeola Seybold pressure Diastolic blood 2021-06-29 18:45:00 64 mm[Hg] Kelse y Seybold pressure Heart rate 2021-06-29 18:45:00 59 /min Adeola S eybold Body temperature 2021-06-29 18:45:00 36.5 Erika Yulissa Sierra Respiratory rate 2021-06-29 18:45:00 14 /min Yulissa Sierra Body height 2021-06-29 18:45:00 152.4 cm Adeola lopez Body weight 2021-06-29 18:45:00 80.559 kg Adeola lopez BMI 2021-06-29 18:45:00 34.69 kg/m2 Adeola lopez Oxygen saturation in 2021-06-29 18:45:00 97 /min Adeola Sierra Arterial blood by Pulse oximetry Systolic blood 2022-11-08 17:02:00 136 mm[Hg] [facility] Diastolic blood 2022-11-08 17:02:00 65 mm[Hg] [facility] Heart rate 2022-11-08 17:02:00 55 /min [facility] Respiratory rate 2022-11-08 17:02:00 18 /min [facility] Oxygen saturation in 2022-11-08 17:02:00 99 /min [facility] Arterial blood by Medical Ce nter Pulse oximetry Body height 2022-11-08 15:02:00 152.4 cm [facility] Body weight 2022-11-08 15:02:00 83.915 kg [facility] BMI 2022-11-08 15:02:00 36.13 kg/m2 [facility] Body temperature 2022-11-08 15:02:00 37 Erika [facility] Procedures Procedure Date / Time Performed Performing Clinician Aguilar el [id number] 2023-07-02 00:00:00 ROSMI [facility] [id number] 2023-07-02 00:00:00 ROSMI [facility] [id number] 2023-07-02 00:00:00 ROSMI [facility] [id number] 2023-07-02 00:00:00 ROSMI [facility] [id number] 2023-07-02 00:00:00 [facility] [id number] 2023-07-02 00:00:00 ROSMI [facility] [id number] 2023-07-02 00:00:00 ROSMI [facility] [id number] 2023-07-02 00:00:00 ROSMI [facility] [id number] 2023-07-02 00:00:00 ROSMI [facility] [id number] 2023-07-02 00:00:00 ROSMI [facility] [id number] 2023-06-23 00:00:00 CHAAB.01 [facility] [id number] 2023-06-23 00:00:00 CHAAB.01 [facility] [id number] 2023-06-23 00:00:00 CHAAB.01 [facility] [id number] 2023-06-23 00:00:00 CHAAB.01 [facility] [id number] 2023-06-23 00:00:00 CHAAB.01 [facility] [id number] 2023-06-23 00:00:00 CHAAB.01 [facility] [id number] 2023-06-23 00:00:00 CHAAB.01 [facility] [id number] 2023-06-23 00:00:00 [id number] [facility] [id number] 2023-06-23 00:00:00 CHAAB.01 [facility] [id number] 2023-06-23 00:00:00 CHAAB.01 [facility] [id number] 2023-06-23 00:00:00 CHAAB.01 [facility] [id number] 2023-06-23 00:00:00 CHAAB.01 [facility] [id number] 2023-06-23 00:00:00 CHAAB.01 [facility] [id number] 2023-06-23 00:00:00 CHAAB.01 [facility] [id number] 2023-06-23 00:00:00 JOHKR01 [facility] MR BRAIN WITH & WITHOUT 2022-11-08 16:58:00 Pollo English [facility] IV CONTRAST [facility] XR CHEST 2 VIEWS 2022-11-08 13:23:00 George Richard Gregorio [facility] ARRYTHMIA IMPLANT 2022-11-08 00:00:00 Provider, Leyla Rowan REPORT - SCAN Scanning [facility] CBC WITH 2021-11-24 21:06:00 Colleen Brown DIFFERENTIAL/PLATELET MAGNESIUM, SERUM 2021-11-24 21:06:00 Colleen Brown EXTERNAL IMAGING 2021-09-07 19:23:00 Vira Hyde URINALYSIS, ROUTINE 2021-06-29 20:12:00 Colleen Brown BASIC METABOLIC PANEL 2021-06-29 20:12:00 Colleen Brown (8) MICROSCOPIC EXAMINATION 2021-06-29 20:12:00 Colleen Brown Plan of Care Planned Activity Planned Date Details Comments Source Future Scheduled 2023-06-03 Influenza Vaccine (#1) [facility] 00:00:00 [code = Influenza Medical Ce nter Vaccine (#1)] Future Scheduled 2023-06-[address] [facility] 00:00:00 (Season Ended) [code [facility] IN[facility]ACCINE (Season Ended)] Future Scheduled 2023-06-03 [facility] SC[facility] Medical Center Future Scheduled 1945 DXA SCAN [code = DXA [facility] 00:00:00 SCAN] Medical Center Future Scheduled 1945 DXA SCAN [code = DXA [facility] 00:00:00 SCAN] Medical Center Future Scheduled 1945 DXA SCAN [code = DXA [facility] 00:00:00 SCAN] Medical Center Future Scheduled 1945 DXA SCAN [code = DXA [facility] 00:00:00 SCAN] Medical Center Future Scheduled 1945 DXA SCAN [code = DXA [facility] 00:00:00 SCAN] [facility] Encounters Start End Encounter Admission Attending Care Care Encounter Source Date/Time Date/Time Type Type Clinicians Facility Department ID 2023-07-29 Outpatient 3 [id number] [facility] [id number] [facility] 14:45:10 [facility] 2023-07-28 Outpatient 3 [id number] [facility] CRD [id number] [facility] 15:29:01 [facility] [place] [facility] 2023-07-27 Outpatient 3 [id number] [facility] REF [id number] [facility] 11:04:41 1025 [facility] 2023-08-02 2023-08-18 Inpatient 3 MARLINE, ENC[facility] CRD [id number] [facility] 18:55:00 17:28:00 CAREN [facility] [place] [facility] 2023-08-18 2023-08-18 Outpatient ADEOLA RINCON [id number] [place] 00:00:00 00:00:00 Seybol d 2023-08-17 2023-08-17 Outpatient ADEOLA RINCON [id number] [place] 00:00:00 00:00:00 Seybol d 2023-08-17 2023-08-17 Outpatient ADEOLA RINCON [id number] [place] 00:00:00 00:00:00 Seybol d 2023-08-11 2023-08-11 Outpatient ADEOLA RINCON [id number] [place] 00:00:00 00:00:00 Seybol d 2023-08-11 2023-08-11 Outpatient ADEOLA RINCON [id number] [place] 00:00:00 00:00:00 Seybol d 2023-08-10 2023-08-10 Outpatient HAIDERJUAN ADEOLA RINCON [id number] [place] 00:00:00 00:00:00 Seybol d 2023-08-05 2023-08-05 Outpatient ADEOLA RINCON [id number] [place] 00:00:00 00:00:00 Seybol d 2023-08-03 2023-08-03 Outpatient ADEOLA LEAL [id number] [place] 00:00:00 00:00:00 EVELINA Seybol d 2023-08-03 2023-08-03 Outpatient ADEOLA RINCON [id number] [place] 00:00:00 00:00:00 Seybol d 2023-07-18 2023-08-02 Inpatient ThompsonMehulViviana HCAWU INTE.02 [id number] [facility] 19:43:00 18:43:[address] [facility] 2023-08-02 2023-08-02 Outpatient ADEOLA RINCON [id number] [place] 00:00:00 00:00:00 Seybol d 2023-07-27 2023-07-27 Outpatient ADEOLA RINCON [id number] [place] 00:00:00 00:00:00 Seybol d 2023-07-25 2023-07-25 Outpatient ADEOLA ANDERSON [id number] [place] 00:00:00 00:00:00 MICHAEL Seybol d 2023-07-20 2023-07-20 Outpatient ADEOLA BROWN [id number] [place] 00:00:00 00:00:00 COLLEEN Seybol d 2023-07-19 2023-07-19 Outpatient ADEOLA RINCON [id number] [place] 00:00:00 00:00:00 Seybol d 2023-07-19 2023-07-19 Outpatient ADEOLA VERA [id number] [place] 00:00:00 00:00:00 FORD Seybol d 2023-07-15 2023-07-15 Outpatient ADEOLA RINCON [id number] [place] 00:00:00 00:00:00 Seybol d 2023-07-15 2023-07-15 Outpatient ADEOLA RINCON [id number] [place] 00:00:00 00:00:00 Seybol d 2023-07-01 2023-07-14 Inpatient EM MARIA VICTORIA SorensenCL CARD [id number] [facility] 19:41:00 15:31:00 Adrian Nails [facility] 2023-07-01 2023-07-14 Inpatient EM Franchesca MARIA VICTORIACL CARD [id number] [facility] 19:41:00 15:31:00 Adrian Nails [facility] 2023-07-14 2023-07-14 Outpatient ADEOLA HYDE [id number] [place] 00:00:00 00:00:00 VIRA Seybol d 2023-07-14 2023-07-14 Outpatient ADEOLA RINCON [id number] [place] 00:00:00 00:00:00 Seybol d 2023-07-132023-07-13 Outpatient ADEOLA RINCON [id number] [place] 00:00:00 00:00:00 Seybol d 2023-07-08 2023-07-08 Outpatient XIOMARA ADEOLA RINCON [id number] [place] 00:00:00 00:00:00 ALE Seyb old 2023-07-05 2023-07-05 Outpatient ADEOLA RINCON [id number] [place] 00:00:00 00:00:00 Seybol d 2023-07-05 2023-07-05 Outpatient JODY ADEOLA RINCON [id number] [place] 00:00:00 00:00:00 FORD Seybol d 2023-07-05 2023-07-05 Outpatient ADEOLA RINCON [id number] [place] 00:00:00 00:00:00 Seybol d 2023-06-13 2023-07-01 Inpatient ESTEFANÍA Nolan [facility] INTE [id number] [facility] 11:23:00 16:46:00 Kaia 60 [facility] 2023-06-13 2023-07-01 Inpatient ESTEFANÍA Nolan [facility] INTE [id number] [facility] 11:23:00 16:46:00 Kaia 60 [facility] 2023-06-30 2023-06-30 Outpatient LINDA DANIEL ADEOLA RINCON [id number] [place] 14:15:00 14:15:00 Seybol d 2023-06-30 2023-06-30 Outpatient ADEOLA RINCON [id number] [place] 00:00:00 00:00:00 Seybol d 2023-06-24 2023-06-24 Outpatient ADEOLA RINCON [id number] [place] 00:00:00 00:00:00 Seybol d 2023-06-23 2023-06-23 Outpatient ADEOLA ANDERSON [id number] [place] 14:00:00 14:00:00 MICHAEL Seybol d 2023-06-21 2023-06-21 Outpatient ADEOLA RINCON [id number] [place] 00:00:00 00:00:00 Seybol d 2023-06-20 2023-06-20 Outpatient ADEOLA ANDERSON [id number] [place] 09:15:00 09:15:00 MICHAEL Seybol d 2023-06-15 2023-06-15 Outpatient ADEOLA RINCON [id number] [place] 00:00:00 00:00:00 Seybol d 2023-06-15 2023-06-15 Outpatient JODY ADEOLA RINCON [id number] [place] 00:00:00 00:00:00 FORD Seybol d 2023-06-15 2023-06-15 Outpatient ADEOLA RINOCN [id number] [place] 00:00:00 00:00:00 Seybol d 2023-06-12 2023-06-12 Outpatient ADEOLA RINCON [id number] [place] 00:00:00 00:00:00 Seybol d 2023-06-09 2023-06-09 Outpatient DANIEL MCKEON [id number] [place] 14:15:00 14:15:00 Seybol d 2023-06-09 2023-06-09 Outpatient ADEOLA RINCON [id number] [place] 00:00:00 00:00:00 Seybol d 2023-06-07 2023-06-07 Outpatient ADEOLA ANDERSON [id number] [place] 00:00:00 00:00:00 MICHAEL Seybol d 2023-06-07 2023-06-07 Outpatient ADEOLA RINCON [id number] [place] 00:00:00 00:00:00 Seybol d 2023-06-02 2023-06-02 Outpatient JUAN MALONEY [id number] [place] 00:00:00 00:00:00 Seybol d 2023-06-01 2023-06-01 Outpatient ADEOLA RINCON [id number] [place] 00:00:00 00:00:00 Seybol d 2023-05-20 2023-05-20 Outpatient ADEOLA BROWN [id number] [place] 00:00:00 00:00:00 COLLEEN Seybol d 2023-04-28 2023-04-28 Outpatient DANIEL MCKEON [id number] [place] 10:45:00 10:45:00 Seybol d 2023-04-27 2023-04-27 Outpatient ADEOLA ANDERSONSEY [id number] [place] 00:00:00 00:00:00 MICHAEL Seybol d 2023-04-12 2023-04-12 Outpatient HUNDL, ADEOLA RINCON [id number] [place] 00:00:00 00:00:00 COLLEEN Seybol d 2023-04-01 2023-04-01 Outpatient JAYESH, ADEOLA RINCON [id number] [place] 13:15:00 13:15:00 PATSY Seybol d 2023-03-31 2023-03-31 Outpatient PREZAMelia ADEOLA RINCON [id number] [place] 00:00:00 00:00:00 MICHAEL Seybol d 2023-03-25 2023-03-25 Outpatient PREZAADEOLA Cárdenas [id number] [place] 00:00:00 00:00:00 MICHAEL Seybol d 2023-03-25 2023-03-25 Outpatient BALJEETDEEPAK ADEOLA RINCON [id number] [place] 00:00:00 00:00:00 Seybol d 2023-03-24 2023-03-24 Outpatient ADEOLA RINCON [id number] [place] 00:00:00 00:00:00 Seybol d 2023-03-21 2023-03-21 Outpatient DANIEL MCKEON [id number] [place] 14:45:00 14:45:00 Seybol d 2023-02-23 2023-02-23 Outpatient LAB90 ADEOLA RINCON [id number] [place] 12:15:00 12:15:00 Seybol d 2023-02-23 2023-02-23 Outpatient PREZAMeliaADEOLA [id number] [place] 11:30:00 11:30:00 MICHAEL Seybol d 2023-02-18 2023-02-18 Outpatient KEVIN ADEOLA RINCON [id number] [place] 14:00:00 14:00:00 COLLEEN Seybol d 2023-02-10 2023-02-10 Outpatient LAB90 ADEOLA RINCON [id number] [place] 13:10:00 13:10:00 Seybol d 2023-02-09 2023-02-09 Outpatient ADEOLA RINCON [id number] [place] 00:00:00 00:00:00 Seybol d 2023-02-08 2023-02-08 Outpatient MONICA ADEOLA RINCON [id number] [place] 00:00:00 00:00:00 MICHAEL Seybol d 2023-02-07 2023-02-07 Outpatient LAB90 ADEOLA RINCON [id number] [place] 11:05:00 11:05:00 Seybol d 2023-02-07 2023-02-07 Outpatient ADEOLA GOLDEN [id number] [place] 08:15:00 08:15:00 UMA Sey bold 2023-02-04 2023-02-04 Outpatient LAB90 ADEOLA RINCON [id number] [place] 12:05:00 12:05:00 Seybol d 2023-02-03 2023-02-03 Outpatient ADEOLA GOLDEN [id number] [place] 00:00:00 00:00:00 UMA Sey bold 2023-02-03 2023-02-03 Outpatient ADEOLA BROWN [id number] [place] 00:00:00 00:00:00 COLLEEN Seybol d 2023-02-02 2023-02-02 Outpatient LAB90 ADEOLA RINCON [id number] [place] 14:20:00 14:20:00 Seybol d 2023-01-31 2023-01-31 Outpatient ADEOLA HUTTON [id number] [place] 00:00:00 00:00:00 SHANEIKA Seybo ld 2023-01-31 2023-01-31 Outpatient ADEOLA RINCON [id number] [place] 00:00:00 00:00:00 Seybol d 2023-01-31 2023-01-31 Outpatient ADEOLA BROWN [id number] [place] 00:00:00 00:00:00 COLLEEN Seybol d 2023-01-27 2023-01-27 Outpatient ADEOLA RINCON [id number] [place] 00:00:00 00:00:00 Seybol d 2023-01-26 2023-01-26 Outpatient ADEOLA GOLDEN [id number] [place] 10:55:00 10:55:00 UMA Sey bold 2023-01-26 2023-01-26 Outpatient ADEOLA HYDE [id number] [place] 00:00:00 00:00:00 VIRA Seybol d 2023-01-26 2023-01-26 Outpatient ADEOLA BROWN [id number] [place] 00:00:00 00:00:00 COLLEEN Seybol d 2023-01-26 2023-01-26 Outpatient ADEOLA RINCON [id number] [place] 00:00:00 00:00:00 Seybol d 2023-01-25 2023-01-25 Outpatient ADEOLA HYDE [id number] [place] 00:00:00 00:00:00 VIRA Seybol d 2023-01-25 2023-01-25 Outpatient ADEOLA SOLIS [id number] [place] 00:00:00 00:00:00 CRYSTAL Seybol d 2023-01-25 2023-01-25 Outpatient ADEOLA RINCON [id number] [place] 00:00:00 00:00:00 Seybol d 2023-01-24 2023-01-24 Outpatient ADEOLA BROWN [id number] [place] 00:00:00 00:00:00 COLLEEN Seybol d 2023-01-14 2023-01-14 Outpatient DANIEL MCKEON [id number] [place] 00:00:00 00:00:00 Seybol d 2023-01-07 2023-01-07 Outpatient ADEOLA CÁRDENAS [id number] [place] 00:00:00 00:00:00 RASHNO Seybol d 2023-01-03 2023-01-03 Outpatient ADEOLA HYDE [id number] [place] 00:00:00 00:00:00 VIRA Seybol d 2022-12-17 2022-12-17 Outpatient LAB90 ADEOLA RINCON [id number] [place] 13:45:00 13:45:00 Seybol d 2022-12-03 2022-12-03 Outpatient ADEOLA BRONW [id number] [place] 00:00:00 00:00:00 COLLEEN Seybol d 2022-11-10 2022-11-10 Outpatient OU, ADEOLA RINCON [id number] [place] 13:00:00 13:00:00 POLLO Sagastume old 2022-11-08 2022-11-08 [facility] Ou, [facility] [id number] 11:09:28 23:59:00 Encounter [facility] 2022-11-08 2022-11-08 Outpatient EL OU, [facility] [id number] SLE 11::28 23:59:00 POLLO 2022-11-08 2022-11-08 [facility], [facility] [id number] 11::28 23:59:00 Encounter [facility] 2022-11-02 2022-11-02 Outpatient EL OU, SLEH SLEH [id number] SLE 00:00:00 00:00:00 POLLO 2022-10-26 2022-10-26 Outpatient OU, ADEOLA RINCON [id number] [place] 11:00:00 11:00:00 POLLO Sagastume old 2022-10-18 2022-10-18 Outpatient EL OU, SLEH SLEH [id number] SLE 00:00:00 00:00:00 POLLO 2022-10-13 2022-10-13 Outpatient OU, ADEOLA RINCON [id number] [place] 11:00:00 11:00:00 POLLO Sagastume old 2022-10-06 2022-10-06 Outpatient LAB90 ADEOLA RINCON [id number] [place] 13:45:00 13:45:00 Seybol d 2022-10-06 2022-10-06 Outpatient ADEOLA BROWN [id number] [place] 13:00:00 13:00:00 COLLEEN Seybol d 2022-10-06 2022-10-06 Outpatient ADEOLA BROWN [id number] [place] 00:00:00 00:00:00 COLLEEN Seybol d 2022-10-01 2022-10-01 Outpatient EL OU, [facility] SLE[facility] [id number] [facility] 00:00:00 00:00:00 POLLO 2022-09-30 2022-09-30 Outpatient LILALADEOLA [id number] [place] 00:00:00 00:00:00 COLLEEN Seybol d 2022-09-15 2022-09-15 Outpatient OU, ADEOLA RINCON [id number] [place] 14:00:00 14:00:00 POLLO Seyb old 2022 2022 Outpatient ADEOLA BROWN [id number] [place] 00:00:00 00:00:00 COLLEEN Seybol d 2022 2022 Outside Ou, [facility] [id number] 00:00:00 00:00:00 Orders [facility] 2022 2022 Outside Ou, [facility] [id number] 00:00:00 00:00:00 Orders [facility] 2022-08-23 2022-08-23 Outpatient ADEOLA BROWN [id number] [place] 00:00:00 00:00:00 COLLEEN Seybol d 2022-08-12 2022-08-12 Outpatient ADEOLA HYDE [id number] [place] 00:00:00 00:00:00 VIRA Seybol d 2022-07-28 2022-07-28 Outpatient JESUSONClover RINCON [id number] [place] 00:00:00 00:00:00 MD MURRAY Seybol d 2022-07-23 2022-07-23 Outpatient OU, ADEOLA RINCON [id number] [place] 00:00:00 00:00:00 POLLO Seyb old 2022-07-20 2022-07-20 Outpatient HUNDL, ADEOLA RINCON [id number] [place] 00:00:00 00:00:00 COLLEEN Seybol d 2022-07-20 2022-07-20 Outpatient KEVIN, ADEOLA RINCON [id number] [place] 00:00:00 00:00:00 COLLEEN Seybol d 2022-07-06 2022-07-06 Outpatient LAB90 ADEOLA RINCON [id number] [place] 14:00:00 14:00:00 Seybol d 2022-06-22 2022-06-22 Outpatient LAB47 ADEOLA RINCON [id number] [place] 15:30:00 15:30:00 Seybol d 2022-06-22 2022-06-22 Outpatient OU, ADEOLA RINCON [id number] [place] 14:30:00 14:30:00 POLLO Seyb old 2022-06-10 2022-06-10 Outpatient HUNDL, ADEOLA RINCON [id number] [place] 00:00:00 00:00:00 COLLEEN Seybol d 2022-05-13 2022-05-13 Outpatient HUNDL, ADEOLA RINCON [id number] [place] 00:00:00 00:00:00 COLLEEN Seybol d 2022-05-13 2022-05-13 Outpatient HUNDL, ADEOLA RINCON [id number] [place] 00:00:00 00:00:00 COLLEEN Seybol d 2022-04-21 2022-04-21 Outpatient HUNDL, ADEOLA RINCON [id number] [place] 00:00:00 00:00:00 COLLEEN Seybol d 2022-04-19 2022-04-19 Office Facundo Brown [id number] [place] 13:00:00 14:00:00 Visit Colleen Hood 350.1.13.13 Se jose [id number] [id number] 2022-04-06 2022-04-06 Outpatient ADEOLA HYDE [id number] [place] 00:00:00 00:00:00 VIRA Seybol d 2022-04-02 2022-04-02 Outpatient KEVIN, ADEOLA RINCON [id number] [place] 00:00:00 00:00:00 COLLEEN Seybol d 2022-03-18 2022-03-18 Outpatient BALJEETDEEPAK Kendrick [id number] [place] 11:00:00 11:00:00 Seybol d 2022-03-17 2022-03-17 Outpatient ADEOLA RECIO [id number] [place] 00:00:00 00:00:00 KRISTYN Alamoybo ld 2022-03-15 2022-03-15 Outpatient BALJEETDEEPAK Kendrick [id number] [place] 00:00:00 00:00:00 Seybol d 2022-03-04 2022-03-04 Outpatient BALJEET, DEEPAK ADEOLA RINCON [id number] [place] 00:00:00 00:00:00 Seybol d 2022-02-25 2022-02-25 Outpatient LAB90 ADEOLA RINCON [id number] [place] 14:30:00 14:30:00 Seybol d 2022-02-25 2022-02-25 Outpatient HUNDL, ADEOLA RINCON [id number] [place] 00:00:00 00:00:00 COLLEEN Seybol d 2022-02-25 2022-02-25 Outpatient HUNDL, ADEOLA RINCON [id number] [place] 00:00:00 00:00:00 COLLEEN Seybol d 2022-02-15 2022-02-15 Outpatient KATHERINE, FACUNDO ADEOLA RINCON [id number] [place] 10:00:00 10:00:00 Seybol d 2022-02-15 2022-02-15 Outpatient HUNDL, ADEOLA RINCON [id number] [place] 10:00:00 10:00:00 COLLEEN Seybol d 2022-02-13 2022-02-13 Outpatient SWAB, CHAVA RINCON [id number] [place] 11:20:00 11:20:00 Seybol d 2022-02-01 2022-02-01 Outpatient BARRETT, ADEOLA RINCON [id number] [place] 00:00:00 00:00:00 VIRA Seybol d 2022-01-27 2022-01-27 Outpatient LAB90 ADEOLA RINCON [id number] [place] 14:45:00 14:45:00 Seybol d 2022-01-25 2022-01-25 Outpatient LAB90 ADEOLA RINCON [id number] [place] 14:55:00 14:55:00 Seybol d 2022-01-25 2022-01-25 Outpatient LILAL, ADEOLA RINCON [id number] [place] 00:00:00 00:00:00 COLLEEN Seybol d 2022-01-11 2022-01-11 Outpatient HUNDL, ADEOLA RINCON [id number] [place] 00:00:00 00:00:00 COLLEEN Seybol d 2022-01-08 2022-01-08 Outpatient LAB90 ADEOLA RINCON [id number] [place] 10:55:00 10:55:00 Seybol d 2022-01-08 2022-01-08 Outpatient HUNDL ADEOLA RINCON [id number] [place] 00:00:00 00:00:00 COLLEEN Seybol d 2021-12-28 2021-12-28 Office Hundclover Loredo [id number] [place] 13:00:00 14:00:00 Visit Colleen Hood 350.1.13.13 Se ybold [id number] [id number] 2021-12-24 2021-12-24 Outpatient LAB90 ADEOLA RINCON [id number] [place] 10:55:00 10:55:00 Seybol d 2021-12-15 2021-12-15 Outpatient ADEOLA RINCON [id number] [place] 00:00:00 00:00:00 Seybol d 2021-12-15 2021-12-15 Outpatient BALJEET, DEEPAK ADEOLA RINCON [id number] [place] 00:00:00 00:00:00 Seybol d 2021-12-04 2021-12-04 Office Deepak Delong OG 1.2.840.114 [id number] [place] 16:40:00 17:00:00 Visit [id number] Se ybold [id number] [id number] 2021-12-04 2021-12-04 Outpatient BALJEET, DEEPAKTrent RINCON [id number] [place] 13:20:00 13:20:00 Seybol d 2021-12-04 2021-12-04 Outpatient BALJEET DEEPAK RINCON [id number] [place] 00:00:00 00:00:00 Seybol d 2021-12-02 2021-12-02 Outpatient HUNDL ADEOLA RINCON [id number] [place] 00:00:00 00:00:00 COLLEEN Seybol d 2021-12-02 2021-12-02 Outpatient ADEOLA BROWN [id number] [place] 00:00:00 00:00:00 COLLEEN Seybol d 2021-11-25 2021-11-25 Outpatient RAULADEOLA KINSEY [id number] [place] 00:00:00 00:00:00 MUHAMMED Seybo ld 2021-11-24 2021-11-24 Outpatient LAB90 ADEOLA RINCON [id number] [place] 15:05:00 15:05:00 Seybol d 2021-11-24 2021-11-24 Office Facundo Brown [id number] [place] 14:00:00 14:30:00 Visit Colleen Erwin [id number] Se albertmaynor [id number] 2021-11-20 2021-11-20 Outpatient ADEOLA HYDE [id number] [place] 00:00:00 00:00:00 VIRA Seybol d 2021-11-18 2021-11-18 Outpatient ADEOLA BROWN [id number] [place] 00:00:00 00:00:00 COLLEEN Seybol d 2021-11-16 2021-11-16 Outpatient LAB90 ADEOLA RINCON [id number] [place] 14:25:00 14:25:00 Seybol d 2021-11-16 2021-11-16 Outpatient ADEOLA BROWN [id number] [place] 00:00:00 00:00:00 COLLEEN Seybol d 2021-11-13 2021-11-13 Outpatient ADEOLA BROWN [id number] [place] 00:00:00 00:00:00 COLLEEN Seybol d 2021-11-13 2021-11-13 Outpatient ADEOLA BROWN [id number] [place] 00:00:00 00:00:00 COLLEEN Seybol d 2021-11-13 2021-11-13 Outpatient ADEOLA BROWN [id number] [place] 00:00:00 00:00:00 COLLEEN Seybol d 2021-11-05 2021-11-05 Outpatient ADEOLA BROWN [id number] [place] 00:00:00 00:00:00 COLLEEN Seybol d 2021-11-032021-11-03 Outpatient ADEOLA RINCON [id number] [place] 09:45:00 09:45:00 Seybol d 2021-10-30 2021-10-30 Outpatient LAB90 ADEOLA RINCON [id number] [place] 11:40:00 11:40:00 Seybol d 2021-10-30 2021-10-30 Outpatient LILAL, ADEOLA RINCON [id number] [place] 00:00:00 00:00:00 COLLEEN Seybol d 2021-10-30 2021-10-30 Outpatient HUNDL, ADEOLA RINCON [id number] [place] 00:00:00 00:00:00 COLLEEN Seybol d 2021-10-29 2021-10-29 Outpatient ADEOLA HYDE [id number] [place] 00:00:00 00:00:00 VIRA Seybol d 2021-10-29 2021-10-29 Outpatient LILAL, ADEOLA RINCON [id number] [place] 00:00:00 00:00:00 COLLEEN Seybol d 2021-10-28 2021-10-28 Outpatient ADEOLA RINCON [id number] [place] 00:00:00 00:00:00 Seybol d 2021-10-28 2021-10-28 Outpatient SHAKIRA-SHAWNI A[facility]A RINCON [id number] [place] 00:00:00 00:00:00 ALISA, Seybol d DMITRY 2021-10-27 2021-10-27 Outpatient KEVIN, ADEOLA RINCON [id number] [place] 00:00:00 00:00:00 COLLEEN Seybol d 2021-10-27 2021-10-27 Outpatient LILAClover, ADEOLA RINCON [id number] [place] 00:00:00 00:00:00 COLLEEN Seybol d 2021-10-26 2021-10-26 Outpatient ADEOLA RINCON [id number] [place] 00:00:00 00:00:00 Seybol d 2021-10-23 2021-10-23 Outpatient LAB90 ADEOLA RINCON [id number] [place] 10:30:00 10:30:00 Seybol d 2021-10-22 2021-10-22 Outpatient LAB90 ADEOLA RINCON [id number] [place] 11:50:00 11:50:00 Seybol d 2021-10-22 2021-10-22 Office Facundo Brown [id number] [place] 10:30:00 11:30:00 Visit Colleen Hood [id number] Se ybold [id number] 2021-10-22 2021-10-22 Outpatient ADEOLA RINCON [id number] [place] 00:00:00 00:00:00 Seybol d 2021-10-22 2021-10-22 Outpatient ADEOLA BROWN [id number] [place] 00:00:00 00:00:00 COLLEEN Seybol d 2021-10-13 2021-10-13 Outpatient ADEOLA HYDE [id number] [place] 00:00:00 00:00:00 VIRA Seybol d 2021-10-12 2021-10-12 Outpatient ADEOLA RAHMAN [id number] [place] 00:00:00 00:00:00 DESIREE Seybol d 2021-10-12 2021-10-12 Outpatient ADEOLA RINCON [id number] [place] 00:00:00 00:00:00 Seybol d 2021-10-12 2021-10-12 Outpatient ADEOLA RINCON [id number] [place] 00:00:00 00:00:00 Seybol d 2021-10-09 2021-10-09 Outpatient ADEOLA HYDE [id number] [place] 00:00:00 00:00:00 VIRA Seybol d 2021-10-08 2021-10-08 Office Facundo BROWN [id number] [place] 09:30:00 09:30:00 Visit COLLEEN Hood [id number] Se ybold [id number] 2021-10-07 2021-10-07 Outpatient ADEOLA HYDE [id number] [place] 00:00:00 00:00:00 VIRA Seybol d 2021-09-30 2021-09-30 Outpatient SAYRA RAHMANSEY [facility]A [id number] [place] 11:45:00 11:45:00 Seybol d 2021-09-07 2021-09-07 Outpatient LAB90 ADEOLA RINCON [id number] [place] 11:55:00 11:55:00 Seybol d 2021-09-07 2021-09-07 Office Facundo Hyde [id number] [place] 11:00:00 11:30:00 Visit Vira Erwin [id number] Se ybold Somogyi [id number] 2021-09-07 2021-09-07 Outpatient ADEOLA HYDE [id number] [place] 00:00:00 00:00:00 VIRA Seybol d 2021-09-07 2021-09-07 Outpatient ADEOLA RINCON [id number] [place] 00:00:00 00:00:00 Seybol d 2021-07-06 2021-07-06 Outpatient ADEOLA HYDE [id number] [place] 00:00:00 00:00:00 VIRA Seybol d 2021-06-29 2021-06-29 Outpatient LAB90 ADEOLA RINCON [id number] [place] 15:10:00 15:10:00 Seybol d 2021-06-29 2021-06-29 Office Facundo Brown [id number] [place] 13:31:37 14:01:37 Visit Colleen Erwin 350.1.13.13 Se ybold [id number] 2021-06-22 2021-06-22 Outpatient SAYRA RAHMAN ADEOLA RINCON 101 [id number] [place] 15:30:00 15:30:00 Seybol d 2021-05-27 2021-05-27 Outpatient ADEOLA HYDE [id number] [place] 00:00:00 00:00:00 VIRA Seybol d 2021-05-21 2021-05-21 Outpatient ADEOLA BEARD [id number] [place] 00:00:00 00:00:00 THUYMINH Seybo ld 2021-05-20 2021-05-20 Outpatient DELLDMITRY ADEOLA RINCON 101 [id number] [place] 15:00:00 15:00:00 , AICHA Alamoalberto ld 2021-05-19 2021-05-19 Outpatient ADEOLA HYDE [id number] [place] 14:00:00 14:00:00 VIRA Seybol d 2021-05-16 2021-05-16 Emergency EM [facility], [facility] HARIKA [id number] [facility] 14:15:00 18:21:00 Beau 04 [facility] 2021-05-16 2021-05-16 Outpatient ADEOLA CRAWFORD [id number] [place] 13:00:00 13:00:00 JOBY Seybol d 2021-05-08 2021-05-08 Outpatient ADEOLA HYDE [id number] [place] 00:00:00 00:00:00 VIRA Seybol d 2021-05-07 2021-05-07 Outpatient ADEOLA RINCON [id number] [place] 15:00:00 15:00:00 Seybol d 2021-04-30 2021-04-30 Outpatient ADEOLA BEARD [id number] [place] 00:00:00 00:00:00 JAYLIN Seybol d 2021-04-29 2021-04-29 Outpatient LAB90 ADEOLA RINCON [id number] [place] 13:35:00 13:35:00 Seybol d 2021-04-28 2021-04-28 Outpatient ADEOLA BEARD [id number] [place] 09:30:00 09:30:00 JAYLIN Seybol d 2021-04-28 2021-04-28 Outpatient DEEPAK DELONG 100 [id number] [place] 00:00:00 00:00:00 Seybol d 2021-04-24 2021-04-24 Outpatient LAB47 ADEOLA RINCON [id number] [place] 14:35:00 14:35:00 Seybol d 2021-04-24 2021-04-24 Outpatient BALJEETDEEPAK Kendrick 999 [id number] [place] 13:40:00 13:40:00 Seybol d 2021-04-24 2021-04-24 Outpatient ADEOLA CORRALES ADEOLA [id number] [place] 11:00:00 11:00:00 JONA robledo Results Test Description Test Time Test Comments Results Result Comments Source BASIC MET PNL 2023-08-17 11:55:00 Test Item Value Reference Range Interpretation Comme nts GLUCOSE (test code = 220 mg/dL 65-99 H Fastin g reference interval [id number]) For someone wit hout known diabetes, a glu cosevalue >125 mg/dL indicates that they may havediabetes an d this should be confirmed wi th afollow-up test. UREA NITROGEN (BUN) (test 24 mg/dL 7-25 N code = 30930396) CREATININE (test code = 1.65 mg/dL 0.60-1.00 H 15320043) EGFR (test code = 82750915) 32 mL/min/1.73m2 >=60 L BUN/CREATININE RATIO (test 15 (calc) 6-22 N code = ) SODIUM (test code = 135 mmol/L 135-146 N 35236255) POTASSIUM (test code = 4.3 mmol/L 3.5-5.3 N 54708206) CHLORIDE (test code = 94 mmol/L 98-110 L 93096393) CARBON DIOXIDE (test code = 28 mmol/L 20-32 N 27383479) CALCIUM (test code = 9.3 mg/dL 8.6-10.4 N 66156964) [id number] 09:50:00 Test Item Value Reference Range Interpretation Comments B TYPE NATRIURETIC TNP/209 N TEST NOT PERFORMED. PEPTIDE (BNP) (test code Spe beaen received at = 56895595) roomtemperature . [facility]ITALEX[facility] L[facility] TOP [id number] 09:50:00 Test Item Value Reference Range Interpretation Comments EXTRA LAVENDER-TOP AN EXTRA SPECIMEN WAS TUBE (test code = RECEIVED W ITH NO TEST [id number]) REQUESTED.THE S PECIMEN WILL BE MAINTAINED I N STORAGE IN CASEADDITIONAL TESTING IS NEEDED. PLEASE CALL THE CLIENTSERVICE D EPARTMENT FOR FURTHER ASSISTA NCE. [facility]ITALBASI MET [id number] 13:05:00 Test Item Value Reference Range Interpretation Comments GLUCOSE (test code 101 mg/dL 65-99 H Fasting reference = 39454102) interval For so meone without known d iabetes, a glucose value between 100 and 125 mg/ dL is consistent withprediabetes and should be confi rmed with afollow-up test. UREA NITROGEN 32 mg/dL 7-25 H (BUN) (test code = 47239943) CREATININE (test 1.54 mg/dL 0.60-1.00 H code = 94931422) EGFR (test code = 35 >=60 L 09403947) mL/min/1.73m2 BUN/CREATININE 21 (calc) 6-22 N RATIO (test code = 59657264) SODIUM (test code 141 mmol/L 135-146 N = 60819766) POTASSIUM (test 4.6 mmol/L 3.5-5.3 N code = 50113693) CHLORIDE (test 101 mmol/L 98-110 N code = 80038294) CARBON DIOXIDE 33 mmol/L 20-32 H (test code = 61744452) CALCIUM (test code 9.4 mg/dL 8.6-10.4 N = 18137118) [facility]ITAL[facility]ED[facility] [id number] 16:04:00 Test Item Value Reference Range Interpretation Comments GLUCOSE BEDSIDE TESTING (test code 206 MG/DL 60-99 H = GLUBED) GLUCOSE BEDSIDE [id number] 11:28:00 Test Item Value Reference Range Interpretation Comments GLUCOSE BEDSIDE TESTING (test code 123 MG/DL 60-99 H = GLUBED) BASIC METABOLIC [id number] 07:12:00 Test Item Value Reference Range Interpretation Comments SODIUM (test code = 134 MMOL/L 137-145 L NA) POTASSIUM (test code 4.6 MMOL/L 3.5-5.1 N = K) CHLORIDE (test code 98 MMOL/L 98-107 N = CL) CARBON DIOXIDE (test 31 MMOL/L 22-30 H code = CO2) ANION GAP (test code 10 MMOL/L 14-24 L = GAP) GLUCOSE (test code = 134 MG/DL 74-106 H GLU) BLOOD UREA NITROGEN 32 MG/DL 7-17 H (test code = BUN) GLOMERULAR 42 The Glomerular FILTRATION RATE Filtration R ate [...] ag e is <18 years. CREATININE (test 1.30 MG/DL 0.52-1.04 H code = CREAT) CALCIUM (test code = 9.3 MG/DL 8.4-10.2 N CA) RECOLLECTION NEEDED ON 08/02/23 AT 0540 BY [id number]: HEMOLYZEDNOTIFIED PATIENT CARE STAFF: ANNABEL FinkGLUCOSE BEDSIDE [id number] 06:58:00 Test Item Value Reference Range Interpretation Comments GLUCOSE BEDSIDE TESTING (test code = 88 MG/DL 60-99 N GLUBED) CBC W/AUTO [id number] 05:36:00 Test Item Value Reference Range Interpretation Comments WHITE BLOOD CELL (test code = 14.4 K/MM3 3.8-9.8 H WBC) RED BLOOD CELL (test code = 3.96 M/MM3 3.58-4.97 RBC) HEMOGLOBIN (test code = HGB) 11.4 G/DL 11.2-14.9 N HEMATOCRIT (test code = HCT) 36.4 % 33.2-43.5 MEAN CELL VOLUME (test code = 92 fL 80.7-99.1 N MCV) MEAN CELL HGB (test code = MCH) 28.8 pg 27.0-34.1 N MEAN CELL HGB CONCETRATION 31.3 % 32.2-35.7 L (test code = MCHC) RED CELL DISTRIBUTION WIDTH 15.8 % 12.1-15.2 H (test code = RDW) PLATELET COUNT (test code = 656 K/MM3 129-368 H PLT) MEAN PLATELET VOLUME (test code 9.2 fl 7.4-10.4 N = MPV) NEUTROPHIL % (test code = NT%) 73.7 % 43-75 N IMMATURE GRANULOCYTE % (test 4.3 % 0.0-2.0 H code = IG%) LYMPHOCYTE % (test code = LY%) 9.7 % 14-44 L MONOCYTE % (test code = MO%) 6.8 % 4-13 N EOSINOPHIL % (test code = EO%) 4.5 % 0-6 N BASOPHIL % (test code = BA%) 1.0 % 0-2 N NUCLEATED RBC % (test code = 0.0 % 0-1.0 N NRBC%) NEUTROPHIL # (test code = NT#) 10.62 K/mm3 2.0-7.6 H IMMATURE GRANULOCYTE # (test 0.62 x10 3/uL 0-0.03 H code = IG#) LYMPHOCYTE # (test code = LY#) 1.40 K/mm3 1.0-3.8 N MONOCYTE # (test code = MO#) 0.98 K/mm3 0.1-0.8 H EOSINOPHIL # (test code = EO#) 0.65 K/mm3 0.0-0.2 H BASOPHIL # (test code = BA#) 0.15 K/mm3 0.0-0.2 N NUCLEATED RBC # (test code = 0.00 K/mm3 0.0-0.1 N NRBC#) GLUCOSE BEDSIDE [id number] 18:47:00 Test Item Value Reference Range Interpretation Comments GLUCOSE BEDSIDE TESTING (test code 104 MG/DL 60-99 H = GLUBED) GLUCOSE BEDSIDE [id number] 17:03:00 Test Item Value Reference Range Interpretation Comments GLUCOSE BEDSIDE TESTING (test code 131 MG/DL 60-99 H = GLUBED) GLUCOSE BEDSIDE [id number] 11:29:00 Test Item Value Reference Range Interpretation Comments GLUCOSE BEDSIDE TESTING (test code 110 MG/DL 60-99 H = GLUBED) BASIC METABOLIC [id number] 08:52:00 Test Item Value Reference Range Interpretation Comments SODIUM (test code = 133 MMOL/L 137-145 L NA) POTASSIUM (test code 4.7 MMOL/L 3.5-5.1 N = K) CHLORIDE (test code 99 MMOL/L 98-107 N = CL) CARBON DIOXIDE (test 30 MMOL/L 22-30 N code = CO2) GLUCOSE (test code = 158 MG/DL 74-106 H GLU) BLOOD UREA NITROGEN 33 MG/DL 7-17 H (test code = BUN) GLOMERULAR 42 The Glomerular FILTRATION RATE Filtration R ate [...] ag e is <18 years. CREATININE (test 1.30 MG/DL 0.52-1.04 H code = CREAT) CALCIUM (test code = 9.1 MG/DL 8.4-10.2 N CA) CBC W/AUTO [id number] 08:34:00 Test Item Value Reference Range Interpretation Comments WHITE BLOOD CELL (test code = 13.1 K/MM3 3.8-9.8 H WBC) RED BLOOD CELL (test code = 3.34 M/MM3 3.58-4.97 L RBC) HEMOGLOBIN (test code = HGB) 9.7 G/DL 11.2-14.9 L HEMATOCRIT (test code = HCT) 30.7 % 33.2-43.5 L MEAN CELL VOLUME (test code = 92 fL 80.7-99.1 N MCV) MEAN CELL HGB (test code = MCH) 29.0 pg 27.0-34.1 N MEAN CELL HGB CONCETRATION 31.6 % 32.2-35.7 L (test code = MCHC) RED CELL DISTRIBUTION WIDTH 15.7 % 12.1-15.2 H (test code = RDW) PLATELET COUNT (test code = 546 K/MM3 129-368 H PLT) MEAN PLATELET VOLUME (test code 9.1 fl 7.4-10.4 N = MPV) NEUTROPHIL % (test code = NT%) 73.1 % 43-75 N IMMATURE GRANULOCYTE % (test 4.5 % 0.0-2.0 H code = IG%) LYMPHOCYTE % (test code = LY%) 9.4 % 14-44 L MONOCYTE % (test code = MO%) 7.8 % 4-13 N EOSINOPHIL % (test code = EO%) 4.4 % 0-6 N BASOPHIL % (test code = BA%) 0.8 % 0-2 N NUCLEATED RBC % (test code = 0.0 % 0-1.0 N NRBC%) NEUTROPHIL # (test code = NT#) 9.55 K/mm3 2.0-7.6 H IMMATURE GRANULOCYTE # (test 0.59 x10 3/uL 0-0.03 H code = IG#) LYMPHOCYTE # (test code = LY#) 1.23 K/mm3 1.0-3.8 N MONOCYTE # (test code = MO#) 1.02 K/mm3 0.1-0.8 H EOSINOPHIL # (test code = EO#) 0.57 K/mm3 0.0-0.2 H BASOPHIL # (test code = BA#) 0.11 K/mm3 0.0-0.2 N NUCLEATED RBC # (test code = 0.00 K/mm3 0.0-0.1 N NRBC#) GLUCOSE BEDSIDE [id number] 06:58:00 Test Item Value Reference Range Interpretation Comments GLUCOSE BEDSIDE TESTING (test code 156 MG/DL 60-99 H = GLUBED) GLUCOSE BEDSIDE [id number] 19:21:00 Test Item Value Reference Range Interpretation Comments GLUCOSE BEDSIDE TESTING (test code 131 MG/DL 60-99 H = GLUBED) GLUCOSE BEDSIDE [id number] 16:15:00 Test Item Value Reference Range Interpretation Comments GLUCOSE BEDSIDE TESTING (test code 117 MG/DL 60-99 H = GLUBED) GLUCOSE BEDSIDE [id number] 11:03:00 Test Item Value Reference Range Interpretation Comments GLUCOSE BEDSIDE TESTING (test code 157 MG/DL 60-99 H = GLUBED) GLUCOSE BEDSIDE [id number] 07:09:00 Test Item Value Reference Range Interpretation Comments GLUCOSE BEDSIDE TESTING (test code 155 MG/DL 60-99 H = GLUBED) BASIC METABOLIC [id number] 06:13:00 Test Item Value Reference Range Interpretation Comments SODIUM (test code = 132 MMOL/L 137-145 L NA) POTASSIUM (test code 4.8 MMOL/L 3.5-5.1 N = K) CHLORIDE (test code 99 MMOL/L 98-107 N = CL) CARBON DIOXIDE (test 28 MMOL/L 22-30 N code = CO2) ANION GAP (test code 10 MMOL/L 14-24 L = GAP) GLUCOSE (test code = 178 MG/DL 74-106 H GLU) BLOOD UREA NITROGEN 35 MG/DL 7-17 H (test code = BUN) GLOMERULAR 42 The Glomerular FILTRATION RATE Filtration R ate [...] ag e is <18 years. CREATININE (test 1.30 MG/DL 0.52-1.04 H code = CREAT) CALCIUM (test code = 8.9 MG/DL 8.4-10.2 N CA) CBC W/AUTO [id number] 05:54:00 Test Item Value Reference Range Interpretation Comments WHITE BLOOD CELL (test code = 14.9 K/MM3 3.8-9.8 H WBC) RED BLOOD CELL (test code = 3.25 M/MM3 3.58-4.97 L RBC) HEMOGLOBIN (test code = HGB) 9.4 G/DL 11.2-14.9 L HEMATOCRIT (test code = HCT) 30.5 % 33.2-43.5 L MEAN CELL VOLUME (test code = 94 fL 80.7-99.1 N MCV) MEAN CELL HGB (test code = MCH) 28.9 pg 27.0-34.1 N MEAN CELL HGB CONCETRATION 30.8 % 32.2-35.7 L (test code = MCHC) RED CELL DISTRIBUTION WIDTH 15.9 % 12.1-15.2 H (test code = RDW) PLATELET COUNT (test code = 508 K/MM3 129-368 H PLT) MEAN PLATELET VOLUME (test code 9.3 fl 7.4-10.4 N = MPV) NEUTROPHIL % (test code = NT%) 74.4 % 43-75 N IMMATURE GRANULOCYTE % (test 4.6 % 0.0-2.0 H code = IG%) LYMPHOCYTE % (test code = LY%) 8.6 % 14-44 L MONOCYTE % (test code = MO%) 8.3 % 4-13 N EOSINOPHIL % (test code = EO%) 3.4 % 0-6 N BASOPHIL % (test code = BA%) 0.7 % 0-2 N NUCLEATED RBC % (test code = 0.0 % 0-1.0 N NRBC%) NEUTROPHIL # (test code = NT#) 11.07 K/mm3 2.0-7.6 H IMMATURE GRANULOCYTE # (test 0.69 x10 3/uL 0-0.03 H code = IG#) LYMPHOCYTE # (test code = LY#) 1.28 K/mm3 1.0-3.8 N MONOCYTE # (test code = MO#) 1.24 K/mm3 0.1-0.8 H EOSINOPHIL # (test code = EO#) 0.51 K/mm3 0.0-0.2 H BASOPHIL # (test code = BA#) 0.11 K/mm3 0.0-0.2 N NUCLEATED RBC # (test code = 0.00 K/mm3 0.0-0.1 N NRBC#) GLUCOSE BEDSIDE [id number] 19:26:00 Test Item Value Reference Range Interpretation Comments GLUCOSE BEDSIDE TESTING (test code = 99 MG/DL 60-99 N GLUBED) GLUCOSE BEDSIDE [id number] 17:09:00 Test Item Value Reference Range Interpretation Comments GLUCOSE BEDSIDE TESTING (test code 175 MG/DL 60-99 H = GLUBED) GLUCOSE BEDSIDE [id number] 11:44:00 Test Item Value Reference Range Interpretation Comments GLUCOSE BEDSIDE TESTING (test code 111 MG/DL 60-99 H = GLUBED) GLUCOSE BEDSIDE [id number] 07:52:00 Test Item Value Reference Range Interpretation Comments GLUCOSE BEDSIDE TESTING (test code 106 MG/DL 60-99 H = GLUBED) URINALYSIS [id number] 19:14:00 Test Item Value Reference Range Interpretation Comments UA COLOR (test code = COLU) YELLOW YELLOW UA APPEARANCE (test code = very cloudy CLEAR APPU) UA GLUCOSE DIPSTICK (test code 1000 MG/DL NORMAL A = DGLUU) UA BILIRUBIN DIPSTICK (test NEGATIVE MG/DL NEGATIVE code = BILU) UA KETONE DIPSTICK (test code NEGATIVE MG/DL NEGATIVE = KETU) UA SPECIFIC GRAVITY (test code 1.005 1.003-1.030 N = SGU) UA BLOOD DIPSTICK (test code = 25 Gonzalez/mm3 NEGATIVE A AARON) UA PH DIPSTICK (test code = 7.0 5.0-9.0 N LIZETTE) UA PROTEIN DIPSTICK (test code 15 MG/DL NEGATIVE = PROU) UA UROBILINIOGEN DIPSTICK NORMAL MG/DL NORMAL (test code = URO) UA NITRITE DIPSTICK (test code POSITIVE NEGATIVE A = ALY) UA LEUKOCYTE ESTERASE DIPSTICK 500 /mm3 NEGATIVE A (test code = LEUU) SOURCE OF URINE: CLEAN CATCHUA [id number] 19:14:00 Test Item Value Reference Range Interpretation Comments UA RBC (test code = RBCU) 3-5 RBC/HPF 0-3 A UA WBC (test code = XWBCU) >100 WBC/HPF 0-5 A UA EPITHELIAL CELLS (test code = RARE EPI/HPF FEW EPIU) UA BACTERIA (test code = XBACU) MODERATE NONE A SOURCE OF URINE: CLEAN CATCHGLUCOSE BEDSIDE [id number] 19:08:00 Test Item Value Reference Range Interpretation Comments GLUCOSE BEDSIDE TESTING (test code 144 MG/DL 60-99 H = GLUBED) - XR CHEST [id number] 17:42:00 [facility] CEJA : 1945 Sex: F Patient Name: BREA GILES Unit No: [id number] EXAMS: CPT CODE: [id number] XR CHEST 1V 49521 CHEST ONE VIEW Dictation location N 13 Clinical history inpatient with CHF TECHNIQUE: Single frontal view the chest was obtained and is compared to prior July 01, 2023 FINDINGS: There has been prior midline sternotomy. There is moderate enlargement of the cardiac silhouette and bypass surgery.There is an implanted cardiac pacemaker defibrillator. There are mild central interstitial infiltrates. Right midlung platelike atelectasis is present. No pleural effusion or pneumothorax. IMPRESSION: Mild CHF. at 1742 Reported and signed by: Ayana Rahman M.D. CC: Dexter Beard MD Technologist: Pavithra Maloney RT(R) Transcrpt Date/Tm/Trnsp: 07/29/2023 (1741) [email or web address] Orig Print D/T: S: 07/29/2023 (1744) [facility] NAME: YESSICAGIOVANNI CEJABREA [address] [address] PHYS: MARIA [email or web address].12 - [place] [address] : 5AGE: 77 SEX: F LOC: Z.[id number] A PHONE #: [phone] EXAM DATE: 07/29/2023 STATUS: ADM IN FAX #: [phone] RADIOLOGY NO: PAGE 1 Signed ReportGLUCOSE BEDSIDE [id number] 15:25:00 Test Item Value Reference Range Interpretation Comments GLUCOSE BEDSIDE TESTING (test code 178 MG/DL 60-99 H = GLUBED) GLUCOSE BEDSIDE [id number] 10:58:00 Test Item Value Reference Range Interpretation Comments GLUCOSE BEDSIDE TESTING (test code 168 MG/DL 60-99 H = GLUBED) GLUCOSE BEDSIDE [id number] 07:21:00 Test Item Value Reference Range Interpretation Comments GLUCOSE BEDSIDE TESTING (test code 104 MG/DL 60-99 H = GLUBED) COMPREHENSIVE METABOLIC [id number] 05:28:00 Test Item Value Reference Range Interpretation Comments SODIUM (test code 132 MMOL/L 137-145 L = NA) POTASSIUM (test 4.5 MMOL/L 3.5-5.1 N code = K) CHLORIDE (test 97 MMOL/L 98-107 L code = CL) CARBON DIOXIDE 30 MMOL/L 22-30 N (test code = CO2) ANION GAP (test 10 MMOL/L 14-24 L code = GAP) GLUCOSE (test 125 MG/DL 74-106 H code = GLU) BLOOD UREA 40 MG/DL 7-17 H NITROGEN (test code = BUN) GLOMERULAR 39 The Glomerular Filtration FILTRATION RATE Rate is a ca lculated (test code = GFR) parameterb ased on serum Creatinine, pat ient age and sex. GFR values less than 60 mL/min/1.73 squ are meters are indicative ofChronic Kidney Disease. Values less than 15 mL/min/ 1.73square meters indicate Kidney failure. The ca lculation forGFR is based on the CKD-EPI (2020) calculation. This formulais race indifferent and is the recommended for roxana for GFRby the [facility] for Adults.The GFR will not ca lculate if the sex is unkn own or if thepatient's ag e is <18 years. CREATININE (test 1.40 MG/DL 0.52-1.04 H code = CREAT) TOTAL PROTEIN 6.3 G/DL 6.3-8.2 N [facility] Clinical Diagnostic (test code = has made us makenzie re of PROT) newinformation regarding the potential i nterference ofEltrombopag ( a bone marrow stimulan t used to treatthrombocyt onmenia and aplastic anemia ) with specific assays on the Vitros 5600 of which Total Protein is one of thoseassays per formed in our lab.Interfe rence testing perform ed at Ortho determined that Eltrombopag does interfere with Vitros Total Protein asfollowsEltrom bopag Interference fo r Vitros Product Total Protein:======= Eltrombopag Max Observed Av g. BiasConcentrati on Concentration Concentration== ==== 2.5 mg/dl 6.0 g/dl +0.41 +0.34 3.5 mg/dl 6.0 g /dl +0.50 +0.45 5 mg/dl 6 .0 g/dl +0.73 +0.65 2. 5 mg/dl 8.0 g/dl +0.44 +0.4 1 3.5 mg/dl 8.0 g/dl +0.55 +0.52 5 mg/dl 8.0 g/dl +0.86 +0.77 ALBUMIN (test 2.8 G/DL 3.5-5.0 L code = ALB) CALCIUM (test 8.7 MG/DL 8.4-10.2 N code = CA) BILIRUBIN TOTAL 0.3 MG/DL 0.2-1.3 N Eltrombopag Interference (test code = for Vitros Prod uct TBil, BILT) BuBc: Assa y Eltrombopag Neha lyte/ Max Observed Avg. B ias Concentration C oncentration Concentration== ====TBil 7mg/dl TBil/ 1. 2mg/dl +0.23mg.dl +0.2 0mg/dlBuBc 3.5mg/dl Bu/0.8 mg/dl +0.25mg/dl +0.2 4mg/dlBuBc 7 mg/dl Bu/14.2mg /dl +0.38mg/dl +0.2 5mg/dlBuBc 5mg/dl Bc/0mg/d l +0.25mg/dl +0.15mg/dlBuBc 3.5mg/dl Bc/2.8mg/dl +0. 25mg/dl +0.23mg/dl SGOT/AST (test 22 UNITS/L 14-36 N code = AST) SGPT/ALT (test 14 UNITS/L 0-34 code = ALT) ALKALINE 95 UNITS/L 38-126 N PHOSPHATASE (test code = ALKP) [id number] 05:28:00 Test Item Value Reference Range Interpretation Comments LIPASE (test code = LIP) 139 UNITS/L 23-300 N CBC W/AUTO [id number] 05:04:00 Test Item Value Reference Range Interpretation Comments WHITE BLOOD CELL (test code = 16.9 K/MM3 3.8-9.8 H WBC) RED BLOOD CELL (test code = 3.42 M/MM3 3.58-4.97 L RBC) HEMOGLOBIN (test code = HGB) 9.9 G/DL 11.2-14.9 L HEMATOCRIT (test code = HCT) 31.8 % 33.2-43.5 L MEAN CELL VOLUME (test code = 93 fL 80.7-99.1 N MCV) MEAN CELL HGB (test code = MCH) 28.9 pg 27.0-34.1 N MEAN CELL HGB CONCETRATION 31.1 % 32.2-35.7 L (test code = MCHC) RED CELL DISTRIBUTION WIDTH 15.8 % 12.1-15.2 H (test code = RDW) PLATELET COUNT (test code = 495 K/MM3 129-368 H PLT) MEAN PLATELET VOLUME (test code 9.3 fl 7.4-10.4 N = MPV) NEUTROPHIL % (test code = NT%) 72.3 % 43-75 N IMMATURE GRANULOCYTE % (test 5.2 % 0.0-2.0 H code = IG%) LYMPHOCYTE % (test code = LY%) 7.3 % 14-44 L MONOCYTE % (test code = MO%) 10.6 % 4-13 N EOSINOPHIL % (test code = EO%) 3.9 % 0-6 N BASOPHIL % (test code = BA%) 0.7 % 0-2 N NUCLEATED RBC % (test code = 0.0 % 0-1.0 N NRBC%) NEUTROPHIL # (test code = NT#) 12.21 K/mm3 2.0-7.6 H IMMATURE GRANULOCYTE # (test 0.88 x10 3/uL 0-0.03 H code = IG#) LYMPHOCYTE # (test code = LY#) 1.23 K/mm3 1.0-3.8 N MONOCYTE # (test code = MO#) 1.79 K/mm3 0.1-0.8 H EOSINOPHIL # (test code = EO#) 0.65 K/mm3 0.0-0.2 H BASOPHIL # (test code = BA#) 0.11 K/mm3 0.0-0.2 N NUCLEATED RBC # (test code = 0.00 K/mm3 0.0-0.1 N NRBC#) DIFFERENTIAL [id number] 05:04:00 Test Item Value Reference Range Interpretation Comments RBC MORPHOLOGY REQUIRED (test code = RBCM) PLATELET ESTIMATE (test code = PLTEST) ADEQUATE PLATELET MORPHOLOGY (test code = NORMAL PLTMORPH) GLUCOSE BEDSIDE [id number] 18:55:00 Test Item Value Reference Range Interpretation Comments GLUCOSE BEDSIDE TESTING (test code 161 MG/DL 60-99 H = GLUBED) GLUCOSE BEDSIDE [id number] 15:51:00 Test Item Value Reference Range Interpretation Comments GLUCOSE BEDSIDE TESTING (test code 152 MG/DL 60-99 H = GLUBED) - CT ABD PELVIS W/O [id number] 13:06:00 [facility] 1945 Sex: F Patient Name: BREA GILES Unit No: [id number] EXAMS: CPT CODE: [id number] CT ABD PELVIS W/O CONT 88633 EXAM: - CT ABD PELVIS W/O CONT LOCATION: C4 TECHNIQUE: Serial axial CT images were obtained from above the diaphragm to the proximal femurs without the administration of intravenous contrast. Oral contrast was not administered. Phase(s): Non-contrast Reformats: Standard coronal and sagittal reformats. This exam was performed according to our departmental dose- optimization program, which includes automated exposure control, adjustment of the mA and/or kV according to patient size and/or use of iterative reconstruction technique. Unless otherwise specified, incidental findings do not require dedicated imaging follow-up. COMPARISON: None available. HISTORY: R abd/flank pain FINDINGS: Statements: Lack of intravenous contrast limits evaluation of abdominopelvic organs and vasculature. LUNG BASES: Included images of the lower chest demonstrate no abnormalities. LIVER: Normal attenuation and contour without focal lesion. BILIARY: Status post cholecystectomy. No intrahepatic or extrahepatic biliary ductal dilation. However, there is a 9 mm rounded calcification at the ampulla, which appears to be just within the duodenum (series 2 image 41). PANCREAS: Unremarkable. SPLEEN: Unremarkable. ADRENALS: Unremarkable. KIDNEYS: The kidneys appear normal in size. There is no evidence of hydronephrosis or renal calculus. Simple cyst noted anterior inferior pole right kidney. GENITOURINARY: The ureters are nondilated throughout. The bladder is incompletely distended and poorly assessed with no gross abnormalities. Status post hysterectomy. The ovaries are not visualized and may also be surgically absent. Few radiodense surgical clips are noted in the right hemipelvis near the vaginal cuff. GASTROINTESTINAL: The distal esophagus is unremarkable. The stomach is partially distended and grossly unremarkable. The small and [facility]: BREA GIL[facility] [id number] [place] PHYS: [id number] - Yoly Greene MD [address] [address] : 1945 AGE: 77 SEX: F LOC: Z.359 A PHONE #: [phone] EXAM DATE: 07/28/2023 STATUS: ADM IN FAX #: [phone] RAD #: D/C DT PAGE 1 Signed Report (CONTINUED) Patient Name: BRAE GILES Unit No: [id number] EXAMS: CPT CODE: [id number] CT ABD PELVIS W/O CONT 39164 (Continued) bowel loops demonstrate no signs of obstruction or inflammation. Few colonic diverticula are present. The appendix is not visualized. Mild to moderate colorectal stool burden. VASCULAR: The abdominal aorta is nonaneurysmal. Moderate atherosclerosis . LYMPH NODES: No enlarged lymph nodes. MESENTERY: No free air or loculated fluid collections. Few surgical clips are noted throughout the ventral abdomen. SOFT TISSUES: Mild body wall edema. Lower sternotomy wires noted. BONES: No acute osseous findings. Mild to moderate disc height loss noted throughout. Chronic appearing Schmorl's node at the L1 superior endplate. Lumbosacral transitional vertebra noted with partial sacralization of L5. IMPRESSION: Incidental 9 mm rounded calcification at the 2nd/3rd portion duodenum, near the ampulla. Which may represent passed/passing gallstone. Evidence of prior cholecystectomy. No biliary ductal dilation. Mild to moderate colorectal stool burden. No evidence of obstruction. at 1306 Reported andsigned by: Kirby Mcbride MD CC: Yoly Greene MD; Dexetr Beard MD Technologist: Denis Vera (RT); Fareed Sood CTDI: DLP: Trnscrpt: 07/28/2023 (1306) [id number] [facility] NAME: JORGE ALBERTO CEJABREA [id number] [place] PHYS: Yoly Jackson MD [address] [address] : 1945 AGE: 77 SEX: F LOC: Z.359 A PHONE #: [phone] EXAM DATE: 07/28/2023 STATUS: ADM IN FAX #: [phone] RAD #: D/C DT PAGE 2 Signed Report Patient Name: TAVIA GILESJEFF Robledo Unit No: [id number] EXAMS: CPT CODE: [id number] CT ABD PELVIS W/O CONT 97399 (Continued) Orig Print D/T: S: 07/28/2023 (1310) [facility] NAME: TAVIA GILESJEFF Robledo [address] [address] PHYS: Yoly aJckson MD [address] [address] : 1945 AGE: 77 SEX: F LOC: Z.359 A PHONE #: [phone] EXAM DATE: 07/28/2023 STATUS: ADM IN FAX #: [phone] RAD #: D/C DT PAGE 3 Signed ReportGLUCOSE BEDSIDE [id number] 10:59:00 Test Item Value Reference Range Interpretation Comments GLUCOSE BEDSIDE TESTING (test code 215 MG/DL 60-99 H = GLUBED) CBC W/AUTO [id number] 10:11:00 Test Item Value Reference Range Interpretation Comments WHITE BLOOD CELL (test code = 18.3 K/MM3 3.8-9.8 H WBC) RED BLOOD CELL (test code = 3.63 M/MM3 3.58-4.97 N RBC) HEMOGLOBIN (test code = HGB) 10.5 G/DL 11.2-14.9 L HEMATOCRIT (test code = HCT) 33.7 % 33.2-43.5 N MEAN CELL VOLUME (test code = 93 fL 80.7-99.1 N MCV) MEAN CELL HGB (test code = MCH) 28.9 pg 27.0-34.1 N MEAN CELL HGB CONCETRATION 31.2 % 32.2-35.7 L (test code = MCHC) RED CELL DISTRIBUTION WIDTH 15.9 % 12.1-15.2 H (test code = RDW) PLATELET COUNT (test code = 563 K/MM3 129-368 H PLT) MEAN PLATELET VOLUME (test code 9.2 fl 7.4-10.4 N = MPV) NEUTROPHIL % (test code = NT%) 74.0 % 43-75 N IMMATURE GRANULOCYTE % (test 5.1 % 0.0-2.0 H code = IG%) LYMPHOCYTE % (test code = LY%) 6.2 % 14-44 L MONOCYTE % (test code = MO%) 10.2 % 4-13 N EOSINOPHIL % (test code = EO%) 3.9 % 0-6 N BASOPHIL % (test code = BA%) 0.6 % 0-2 N NUCLEATED RBC % (test code = 0.0 % 0-1.0 N NRBC%) NEUTROPHIL # (test code = NT#) 13.51 K/mm3 2.0-7.6 H IMMATURE GRANULOCYTE # (test 0.93 x10 3/uL 0-0.03 H code = IG#) LYMPHOCYTE # (test code = LY#) 1.14 K/mm3 1.0-3.8 N MONOCYTE # (test code = MO#) 1.86 K/mm3 0.1-0.8 H EOSINOPHIL # (test code = EO#) 0.72 K/mm3 0.0-0.2 H BASOPHIL # (test code = BA#) 0.11 K/mm3 0.0-0.2 N NUCLEATED RBC # (test code = 0.00 K/mm3 0.0-0.1 N NRBC#) DIFFERENTIAL [id number] 10:11:00 Test Item Value Reference Range Interpretation Comments RBC MORPHOLOGY REQUIRED (test code NORMAL = RBCM) PLATELET ESTIMATE (test code = INCREASED ADEQUATE PLTEST) PLATELET MORPHOLOGY (test code = NORMAL NORMAL PLTMORPH) ANISOCYTOSIS (test code = ANISO) SLIGHT NONE BASIC METABOLIC [id number] 08:40:00 Test Item Value Reference Range Interpretation Comments SODIUM (test code = 132 MMOL/L 137-145 L NA) POTASSIUM (test code 4.5 MMOL/L 3.5-5.1 N = K) CHLORIDE (test code 94 MMOL/L 98-107 L = CL) CARBON DIOXIDE (test 29 MMOL/L 22-30 N code = CO2) ANION GAP (test code 14 MMOL/L 14-24 N = GAP) GLUCOSE (test code = 179 MG/DL 74-106 H GLU) BLOOD UREA NITROGEN 45 MG/DL 7-17 H (test code = BUN) GLOMERULAR 33 The Glomerular FILTRATION RATE Filtration R ate [...] ag e is <18 years. CREATININE (test 1.60 MG/DL 0.52-1.04 H code = CREAT) CALCIUM (test code = 9.0 MG/DL 8.4-10.2 N CA) GLUCOSE BEDSIDE [id number] 06:36:00 Test Item Value Reference Range Interpretation Comments GLUCOSE BEDSIDE TESTING (test code 149 MG/DL 60-99 H = GLUBED) GLUCOSE BEDSIDE [id number] 19:12:00 Test Item Value Reference Range Interpretation Comments GLUCOSE BEDSIDE TESTING (test code 169 MG/DL 60-99 H = GLUBED) BASIC METABOLIC [id number] 17:00:00 Test Item Value Reference Range Interpretation Comments SODIUM (test code = 132 MMOL/L 137-145 L NA) POTASSIUM (test code 5.0 MMOL/L 3.5-5.1 N = K) CHLORIDE (test code 93 MMOL/L 98-107 L = CL) CARBON DIOXIDE (test 32 MMOL/L 22-30 H code = CO2) ANION GAP (test code 12 MMOL/L 14-24 L = GAP) GLUCOSE (test code = 130 MG/DL 74-106 H GLU) BLOOD UREA NITROGEN 43 MG/DL 7-17 H (test code = BUN) GLOMERULAR 36 The Glomerular FILTRATION RATE Filtration R ate [...] ag e is <18 years. CREATININE (test 1.50 MG/DL 0.52-1.04 H code = CREAT) CALCIUM (test code = 9.1 MG/DL 8.4-10.2 N CA) GLUCOSE BEDSIDE [id number] 15:17:00 Test Item Value Reference Range Interpretation Comments GLUCOSE BEDSIDE TESTING (test code 122 MG/DL 60-99 H = GLUBED) BASIC METABOLIC [id number] 11:39:00 Test Item Value Reference Range Interpretation Comments SODIUM (test code = 131 MMOL/L 137-145 L NA) POTASSIUM (test code 4.2 MMOL/L 3.5-5.1 N = K) CHLORIDE (test code 95 MMOL/L 98-107 L = CL) CARBON DIOXIDE (test 28 MMOL/L 22-30 N code = CO2) GLUCOSE (test code = 201 MG/DL 74-106 H GLU) BLOOD UREA NITROGEN 42 MG/DL 7-17 H (test code = BUN) GLOMERULAR 42 The Glomerular FILTRATION RATE Filtration R ate [...] ag e is <18 years. CREATININE (test 1.30 MG/DL 0.52-1.04 H code = CREAT) CALCIUM (test code = 8.6 MG/DL 8.4-10.2 N CA) GLUCOSE BEDSIDE [id number] 11:32:00 Test Item Value Reference Range Interpretation Comments GLUCOSE BEDSIDE TESTING (test code 201 MG/DL 60-99 H = GLUBED) CBC W/AUTO [id number] 11:24:00 Test Item Value Reference Range Interpretation Comments WHITE BLOOD CELL (test code = 18.3 K/MM3 3.8-9.8 H WBC) RED BLOOD CELL (test code = 3.77 M/MM3 3.58-4.97 N RBC) HEMOGLOBIN (test code = HGB) 10.8 G/DL 11.2-14.9 L HEMATOCRIT (test code = HCT) 34.7 % 33.2-43.5 N MEAN CELL VOLUME (test code = 92 fL 80.7-99.1 N MCV) MEAN CELL HGB (test code = MCH) 28.6 pg 27.0-34.1 N MEAN CELL HGB CONCETRATION 31.1 % 32.2-35.7 L (test code = MCHC) RED CELL DISTRIBUTION WIDTH 15.9 % 12.1-15.2 H (test code = RDW) PLATELET COUNT (test code = 520 K/MM3 129-368 H PLT) MEAN PLATELET VOLUME (test code 9.2 fl 7.4-10.4 N = MPV) NEUTROPHIL % (test code = NT%) 79.1 % 43-75 H IMMATURE GRANULOCYTE % (test 4.3 % 0.0-2.0 H code = IG%) LYMPHOCYTE % (test code = LY%) 4.4 % 14-44 L MONOCYTE % (test code = MO%) 7.7 % 4-13 N EOSINOPHIL % (test code = EO%) 3.9 % 0-6 N BASOPHIL % (test code = BA%) 0.6 % 0-2 N NUCLEATED RBC % (test code = 0.0 % 0-1.0 N NRBC%) NEUTROPHIL # (test code = NT#) 14.49 K/mm3 2.0-7.6 H IMMATURE GRANULOCYTE # (test 0.79 x10 3/uL 0-0.03 H code = IG#) LYMPHOCYTE # (test code = LY#) 0.81 K/mm3 1.0-3.8 L MONOCYTE # (test code = MO#) 1.41 K/mm3 0.1-0.8 H EOSINOPHIL # (test code = EO#) 0.72 K/mm3 0.0-0.2 H BASOPHIL # (test code = BA#) 0.11 K/mm3 0.0-0.2 N NUCLEATED RBC # (test code = 0.00 K/mm3 0.0-0.1 N NRBC#) GLUCOSE BEDSIDE [id number] 06:41:00 Test Item Value Reference Range Interpretation Comments GLUCOSE BEDSIDE TESTING (test code 115 MG/DL 60-99 H = GLUBED) GLUCOSE BEDSIDE [id number] 19:30:00 Test Item Value Reference Range Interpretation Comments GLUCOSE BEDSIDE TESTING (test code 132 MG/DL 60-99 H = GLUBED) GLUCOSE BEDSIDE [id number] 15:54:00 Test Item Value Reference Range Interpretation Comments GLUCOSE BEDSIDE TESTING (test code 157 MG/DL 60-99 H = GLUBED) GLUCOSE BEDSIDE [id number] 11:07:00 Test Item Value Reference Range Interpretation Comments GLUCOSE BEDSIDE TESTING (test code 121 MG/DL 60-99 H = GLUBED) GLUCOSE BEDSIDE [id number] 07:04:00 Test Item Value Reference Range Interpretation Comments GLUCOSE BEDSIDE TESTING (test code 119 MG/DL 60-99 H = GLUBED) BASIC METABOLIC [id number] 05:03:00 Test Item Value Reference Range Interpretation Comments SODIUM (test code = 133 MMOL/L 137-145 L NA) POTASSIUM (test code 4.3 MMOL/L 3.5-5.1 N = K) CHLORIDE (test code 94 MMOL/L 98-107 L = CL) CARBON DIOXIDE (test 31 MMOL/L 22-30 H code = CO2) GLUCOSE (test code = 125 MG/DL 74-106 H GLU) BLOOD UREA NITROGEN 39 MG/DL 7-17 H (test code = BUN) GLOMERULAR 39 The Glomerular FILTRATION RATE Filtration R ate [...] ag e is <18 years. CREATININE (test 1.40 MG/DL 0.52-1.04 H code = CREAT) CALCIUM (test code = 8.7 MG/DL 8.4-10.2 N CA) CBC W/AUTO [id number] 05:03:00 Test Item Value Reference Range Interpretation Comments WHITE BLOOD CELL (test code = 14.4 K/MM3 3.8-9.8 H WBC) RED BLOOD CELL (test code = 3.78 M/MM3 3.58-4.97 N RBC) HEMOGLOBIN (test code = HGB) 10.8 G/DL 11.2-14.9 L HEMATOCRIT (test code = HCT) 34.5 % 33.2-43.5 N MEAN CELL VOLUME (test code = 91 fL 80.7-99.1 N MCV) MEAN CELL HGB (test code = MCH) 28.6 pg 27.0-34.1 N MEAN CELL HGB CONCETRATION 31.3 % 32.2-35.7 L (test code = MCHC) RED CELL DISTRIBUTION WIDTH 16.0 % 12.1-15.2 H (test code = RDW) PLATELET COUNT (test code = 529 K/MM3 129-368 H PLT) MEAN PLATELET VOLUME (test code 9.5 fl 7.4-10.4 N = MPV) NEUTROPHIL % (test code = NT%) 67.5 % 43-75 N IMMATURE GRANULOCYTE % (test 6.6 % 0.0-2.0 H code = IG%) LYMPHOCYTE % (test code = LY%) 8.3 % 14-44 L MONOCYTE % (test code = MO%) 9.6 % 4-13 N EOSINOPHIL % (test code = EO%) 7.1 % 0-6 H BASOPHIL % (test code = BA%) 0.9 % 0-2 N NUCLEATED RBC % (test code = 0.0 % 0-1.0 N NRBC%) NEUTROPHIL # (test code = NT#) 9.68 K/mm3 2.0-7.6 H IMMATURE GRANULOCYTE # (test 0.95 x10 3/uL 0-0.03 H code = IG#) LYMPHOCYTE # (test code = LY#) 1.19 K/mm3 1.0-3.8 N MONOCYTE # (test code = MO#) 1.38 K/mm3 0.1-0.8 H EOSINOPHIL # (test code = EO#) 1.02 K/mm3 0.0-0.2 H BASOPHIL # (test code = BA#) 0.13 K/mm3 0.0-0.2 N NUCLEATED RBC # (test code = 0.00 K/mm3 0.0-0.1 N NRBC#) DIFFERENTIAL [id number] 05:03:00 Test Item Value Reference Range Interpretation Comments RBC MORPHOLOGY REQUIRED (test code = RBCM) PLATELET ESTIMATE (test code = PLTEST) ADEQUATE PLATELET MORPHOLOGY (test code = NORMAL PLTMORPH) GLUCOSE BEDSIDE [id number] 19:15:00 Test Item Value Reference Range Interpretation Comments GLUCOSE BEDSIDE TESTING (test code 166 MG/DL 60-99 H = GLUBED) GLUCOSE BEDSIDE [id number] 16:30:00 Test Item Value Reference Range Interpretation Comments GLUCOSE BEDSIDE TESTING (test code 180 MG/DL 60-99 H = GLUBED) GLUCOSE BEDSIDE [id number] 12:16:00 Test Item Value Reference Range Interpretation Comments GLUCOSE BEDSIDE TESTING (test code 142 MG/DL 60-99 H = GLUBED) - XR ABDOMEN 1 [id number] 11:30:00 [facility] 1945 Sex: F Patient Name: BREA GILES Unit No: [id number] EXAMS: CPT CODE: [id number] XR ABDOMEN 1 V 84036 EXAMINATION: - XR ABDOMEN 1 V. LOCATION: B2. HISTORY: ABD PAIN. COMPARISON: None. TECHNIQUE: Single AP view of the abdomen was obtained. FINDINGS: Bowel gas pattern is within normal limits. Multiple surgical clips are seen in the abdomen and pelvis. No acute osseous abnormality is identified. IMPRESSION: No acute abdominal abnormality is identified. at 1130 Reported and signed by: Margaux Garcia MD CC: Elba Norman MD; Dexter Beard MD Technologist: TAY Rodas, RT(R) Transcrpt Date/Tm/Trnsp: 07/25/2023 (1130) [email or web address] Print D/T: S: 07/25/2023 (1133) [facility] NAME: BREA GILES [address] [address] PHYS: [place] [address] : 1945 AGE: 77 SEX: F LOC: Z.359 A PHONE #: [phone] EXAM DATE: 07/25/2023 STATUS: ADM IN FAX #: [phone] RADIOLOGY NO: PAGE 1 Signed ReportCBC W/AUTO [id number] 06:51:00 Test Item Value Reference Range Interpretation Comments WHITE BLOOD CELL (test code = 14.4 K/MM3 3.8-9.8 H WBC) RED BLOOD CELL (test code = 3.99 M/MM3 3.58-4.97 N RBC) HEMOGLOBIN (test code = HGB) 11.6 G/DL 11.2-14.9 N HEMATOCRIT (test code = HCT) 36.6 % 33.2-43.5 N MEAN CELL VOLUME (test code = 92 fL 80.7-99.1 N MCV) MEAN CELL HGB (test code = MCH) 29.1 pg 27.0-34.1 N MEAN CELL HGB CONCETRATION 31.7 % 32.2-35.7 L (test code = MCHC) RED CELL DISTRIBUTION WIDTH 16.2 % 12.1-15.2 H (test code = RDW) PLATELET COUNT (test code = 461 K/MM3 129-368 H PLT) MEAN PLATELET VOLUME (test code 9.5 fl 7.4-10.4 N = MPV) NEUTROPHIL % (test code = NT%) 69.5 % 43-75 N IMMATURE GRANULOCYTE % (test 5.1 % 0.0-2.0 H code = IG%) LYMPHOCYTE % (test code = LY%) 8.4 % 14-44 L MONOCYTE % (test code = MO%) 9.7 % 4-13 N EOSINOPHIL % (test code = EO%) 6.4 % 0-6 H BASOPHIL % (test code = BA%) 0.9 % 0-2 N NUCLEATED RBC % (test code = 0.0 % 0-1.0 N NRBC%) NEUTROPHIL # (test code = NT#) 10.01 K/mm3 2.0-7.6 H IMMATURE GRANULOCYTE # (test 0.74 x10 3/uL 0-0.03 H code = IG#) LYMPHOCYTE # (test code = LY#) 1.21 K/mm3 1.0-3.8 N MONOCYTE # (test code = MO#) 1.40 K/mm3 0.1-0.8 H EOSINOPHIL # (test code = EO#) 0.92 K/mm3 0.0-0.2 H BASOPHIL # (test code = BA#) 0.13 K/mm3 0.0-0.2 N NUCLEATED RBC # (test code = 0.00 K/mm3 0.0-0.1 N NRBC#) DIFFERENTIAL [id number] 06:51:00 Test Item Value Reference Range Interpretation Comments RBC MORPHOLOGY REQUIRED (test code ABNORMAL = RBCM) PLATELET ESTIMATE (test code = INCREASED ADEQUATE PLTEST) PLATELET MORPHOLOGY (test code = NORMAL NORMAL PLTMORPH) POLYCHROMASIA (test code = POLC) FEW NONE POIKILOCYTOSIS (test code = POIK) MODERATE NONE ANISOCYTOSIS (test code = ANISO) SLIGHT NONE MACROCYTOSIS (test code = MACR) FEW NONE SPHEROCYTES (test code = SPH) FEW NONE TARGET CELLS (test code = TGT) FEW NONE TEAR DROP CELLS (test code = TEAR) FEW NONE HELENA CELLS (test code = HELENA) MANY NONE OVALOCYTES (test code = OVAL) FEW NONE GLUCOSE BEDSIDE [id number] 06:47:00 Test Item Value Reference Range Interpretation Comments GLUCOSE BEDSIDE TESTING (test code 150 MG/DL 60-99 H = GLUBED) BASIC METABOLIC [id number] 04:54:00 Test Item Value Reference Range Interpretation Comments SODIUM (test code = 134 MMOL/L 137-145 L NA) POTASSIUM (test code 4.6 MMOL/L 3.5-5.1 N = K) CHLORIDE (test code 96 MMOL/L 98-107 L = CL) CARBON DIOXIDE (test 31 MMOL/L 22-30 H code = CO2) ANION GAP (test code 12 MMOL/L 14-24 L = GAP) GLUCOSE (test code = 142 MG/DL 74-106 H GLU) BLOOD UREA NITROGEN 39 MG/DL 7-17 H (test code = BUN) GLOMERULAR 42 The Glomerular FILTRATION RATE Filtration R ate [...] ag e is <18 years. CREATININE (test 1.30 MG/DL 0.52-1.04 H code = CREAT) CALCIUM (test code = 8.9 MG/DL 8.4-10.2 N CA) GLUCOSE BEDSIDE [id number] 19:47:00 Test Item Value Reference Range Interpretation Comments GLUCOSE BEDSIDE TESTING (test code 142 MG/DL 60-99 H = GLUBED) GLUCOSE BEDSIDE [id number] 15:19:00 Test Item Value Reference Range Interpretation Comments GLUCOSE BEDSIDE TESTING (test code 159 MG/DL 60-99 H = GLUBED) BASIC METABOLIC [id number] 11:43:00 Test Item Value Reference Range Interpretation Comments SODIUM (test code = 135 MMOL/L 137-145 L NA) POTASSIUM (test code 4.6 MMOL/L 3.5-5.1 N = K) CHLORIDE (test code 100 MMOL/L 98-107 N = CL) CARBON DIOXIDE (test 27 MMOL/L 22-30 N code = CO2) GLUCOSE (test code = 128 MG/DL 74-106 H GLU) BLOOD UREA NITROGEN 37 MG/DL 7-17 H (test code = BUN) GLOMERULAR 52 The Glomerular FILTRATION RATE Filtration R ate [...] the recommended for roxana for [facility]FRby the [facility] on for Adults.The GFR will not calculate if th e sex is unknown or if thepatient's ag e is <18 years. CREATININE (test 1.10 MG/DL 0.52-1.04 H code = CREAT) CALCIUM (test code = 8.8 MG/DL 8.4-10.2 N CA) GLUCOSE BEDSIDE [id number] 11:23:00 Test Item Value Reference Range Interpretation Comments GLUCOSE BEDSIDE TESTING (test code 141 MG/DL 60-99 H = GLUBED) GLUCOSE BEDSIDE [id number] 07:33:00 Test Item Value Reference Range Interpretation Comments GLUCOSE BEDSIDE TESTING (test code 129 MG/DL 60-99 H = GLUBED) GLUCOSE BEDSIDE [id number] 20:17:00 Test Item Value Reference Range Interpretation Comments GLUCOSE BEDSIDE TESTING (test code 169 MG/DL 60-99 H = GLUBED) GLUCOSE BEDSIDE [id number] 15:51:00 Test Item Value Reference Range Interpretation Comments GLUCOSE BEDSIDE TESTING (test code 162 MG/DL 60-99 H = GLUBED) GLUCOSE BEDSIDE [id number] 11:28:00 Test Item Value Reference Range Interpretation Comments GLUCOSE BEDSIDE TESTING (test code 270 MG/DL 60-99 H = GLUBED) GLUCOSE BEDSIDE [id number] 08:06:00 Test Item Value Reference Range Interpretation Comments GLUCOSE BEDSIDE TESTING (test code 130 MG/DL 60-99 H = GLUBED) GLUCOSE BEDSIDE [id number] 20:28:00 Test Item Value Reference Range Interpretation Comments GLUCOSE BEDSIDE TESTING (test code 178 MG/DL 60-99 H = GLUBED) GLUCOSE BEDSIDE [id number] 17:28:00 Test Item Value Reference Range Interpretation Comments GLUCOSE BEDSIDE TESTING (test code 176 MG/DL 60-99 H = GLUBED) GLUCOSE BEDSIDE [id number] 11:20:00 Test Item Value Reference Range Interpretation Comments GLUCOSE BEDSIDE TESTING (test code 194 MG/DL 60-99 H = GLUBED) GLUCOSE BEDSIDE [id number] 09:08:00 Test Item Value Reference Range Interpretation Comments GLUCOSE BEDSIDE TESTING (test code 138 MG/DL 60-99 H = GLUBED) BASIC METABOLIC [id number] 04:03:00 Test Item Value Reference Range Interpretation Comments SODIUM (test code = 130 MMOL/L 137-145 L NA) POTASSIUM (test code 4.3 MMOL/L 3.5-5.1 N = K) CHLORIDE (test code 99 MMOL/L 98-107 N = CL) CARBON DIOXIDE (test 26 MMOL/L 22-30 N code = CO2) ANION GAP (test code 9 MMOL/L 14-24 L = GAP) GLUCOSE (test code = 138 MG/DL 74-106 H GLU) BLOOD UREA NITROGEN 33 MG/DL 7-17 H (test code = BUN) GLOMERULAR 47 The Glomerular FILTRATION RATE Filtration R ate [...] ag e is <18 years. CREATININE (test 1.20 MG/DL 0.52-1.04 H code = CREAT) CALCIUM (test code = 8.0 MG/DL 8.4-10.2 L CA) CBC W/AUTO [id number] 03:49:00 Test Item Value Reference Range Interpretation Comments WHITE BLOOD CELL (test code = 13.1 K/MM3 3.8-9.8 H WBC) RED BLOOD CELL (test code = 3.67 M/MM3 3.58-4.97 N RBC) HEMOGLOBIN (test code = HGB) 10.7 G/DL 11.2-14.9 L HEMATOCRIT (test code = HCT) 34.2 % 33.2-43.5 N MEAN CELL VOLUME (test code = 93 fL 80.7-99.1 N MCV) MEAN CELL HGB (test code = MCH) 29.2 pg 27.0-34.1 N MEAN CELL HGB CONCETRATION 31.3 % 32.2-35.7 L (test code = MCHC) RED CELL DISTRIBUTION WIDTH 15.9 % 12.1-15.2 H (test code = RDW) PLATELET COUNT (test code = 215 K/MM3 129-368 N PLT) MEAN PLATELET VOLUME (test code 10.1 fl 7.4-10.4 N = MPV) NEUTROPHIL % (test code = NT%) 73.2 % 43-75 N IMMATURE GRANULOCYTE % (test 0.9 % 0.0-2.0 N code = IG%) LYMPHOCYTE % (test code = LY%) 7.6 % 14-44 L MONOCYTE % (test code = MO%) 16.2 % 4-13 H EOSINOPHIL % (test code = EO%) 1.7 % 0-6 N BASOPHIL % (test code = BA%) 0.4 % 0-2 N NUCLEATED RBC % (test code = 0.0 % 0-1.0 N NRBC%) NEUTROPHIL # (test code = NT#) 9.59 K/mm3 2.0-7.6 H IMMATURE GRANULOCYTE # (test 0.12 x10 3/uL 0-0.03 H code = IG#) LYMPHOCYTE # (test code = LY#) 0.99 K/mm3 1.0-3.8 L MONOCYTE # (test code = MO#) 2.12 K/mm3 0.1-0.8 H EOSINOPHIL # (test code = EO#) 0.22 K/mm3 0.0-0.2 H BASOPHIL # (test code = BA#) 0.05 K/mm3 0.0-0.2 N NUCLEATED RBC # (test code = 0.00 K/mm3 0.0-0.1 N NRBC#) GLUCOSE BEDSIDE [id number] 20:57:00 Test Item Value Reference Range Interpretation Comments GLUCOSE BEDSIDE TESTING (test code 228 MG/DL 60-99 H = GLUBED) - US RETROPERITONEAL [id number] 20:56:00 [facility] 1945 Sex: F Patient Name: BREA GILES Unit No: [id number] EXAMS: CPT CODE: [id number] US RETROPERITONEAL COM [id number] Examination: Ultrasound retroperitoneum complete Location code: H60 Comparison: None Discussion: Clinical history is remarkable for pain. Right kidney measures 9.0 x 4.4 x 4.4 cm and left kidney measures 9.6 x 5.1 x 4.4 cm. No echogenic renal calculi identified. Right simple renal cysts identified measuring 1.6 cm and 1.1 cm. Categorized as Bosniak type I cyst. No further imaging follow-up is necessary. Bladder is incompletely distended. Impression: 1. Unremarkable ultrasound examination of kidneys. at 2055 Reported and signed by: Archie Brown MD CC: Viviana Thompson MD Technologist: LINDSAY Cr(A,OB) Transcrpt Date/Tm/Trnsp: 07/21/2023 (2055) [email or web address] Orig Print D/T: S: 07/21/2023 (2058) [facility] NAME: BREA GILES [address] [address] [address] PHYS: [place] [address] : 1945 AGE: 77 SEX: F LOC: [id number].SI11 A PHONE #: [phone] EXAM DATE: 07/21/2023 STATUS: ADM IN FAX #: [phone] RADIOLOGY NO: PAGE 1 Signed ReportBASIC METABOLIC [id number] 15:31:00 Test Item Value Reference Range Interpretation Comments SODIUM (test code = 130 MMOL/L 137-145 L NA) POTASSIUM (test code 4.0 MMOL/L 3.5-5.1 N = K) CHLORIDE (test code 97 MMOL/L 98-107 L = CL) CARBON DIOXIDE (test 24 MMOL/L 22-30 N code = CO2) ANION GAP (test code 13 MMOL/L 14-24 L = GAP) GLUCOSE (test code = 204 MG/DL 74-106 H GLU) BLOOD UREA NITROGEN 33 MG/DL 7-17 H (test code = BUN) GLOMERULAR 47 The Glomerular FILTRATION RATE Filtration R ate [...] the recommended for ro[facility]ana for [facility]by the [facility] for Ad[facility].The GFR will not calculate if th e sex is unknown or if thepatient's ag e is <18 years. CREATININE (test 1.20 MG/DL 0.52-1.04 H code = CREAT) CALCIUM (test code = 8.1 MG/DL 8.4-10.2 L CA) BASIC METABOLIC [id number] 04:48:00 Test Item Value Reference Range Interpretation Comments SODIUM (test code = 129 MMOL/L 137-145 L NA) POTASSIUM (test code 4.1 MMOL/L 3.5-5.1 N = K) CHLORIDE (test code 98 MMOL/L 98-107 N = CL) CARBON DIOXIDE (test 25 MMOL/L 22-30 N code = CO2) ANION GAP (test code 10 MMOL/L 14-24 L = GAP) GLUCOSE (test code = 137 MG/DL 74-106 H GLU) BLOOD UREA NITROGEN 34 MG/DL 7-17 H (test code = BUN) GLOMERULAR 42 The Glomerular FILTRATION RATE Filtration R ate [...] the recommended for roxana for GFRby the [facility] for Ad[facility].The GFR will not calculate if th e sex is unknown or if thepatient's ag e is <18 years. CREATININE (test 1.30 MG/DL 0.52-1.04 H code = CREAT) CALCIUM (test code = 8.1 MG/DL 8.4-10.2 L CA) [id number] 04:48:00 Test Item Value Reference Range Interpretation Comments MAGNESIUM (test code = MAG) 1.9 MG/DL 1.6-2.3 N CBC W/AUTO [id number] 04:34:00 Test Item Value Reference Range Interpretation Comments WHITE BLOOD CELL (test code = 12.3 K/MM3 3.8-9.8 H WBC) RED BLOOD CELL (test code = 3.84 M/MM3 3.58-4.97 RBC) HEMOGLOBIN (test code = HGB) 11.3 G/DL 11.2-14.9 N HEMATOCRIT (test code = HCT) 36.2 % 33.2-43.5 MEAN CELL VOLUME (test code = 94 fL 80.7-99.1 N MCV) MEAN CELL HGB (test code = MCH) 29.4 pg 27.0-34.1 N MEAN CELL HGB CONCETRATION 31.2 % 32.2-35.7 L (test code = MCHC) RED CELL DISTRIBUTION WIDTH 15.8 % 12.1-15.2 H (test code = RDW) PLATELET COUNT (test code = 222 K/MM3 129-368 PLT) MEAN PLATELET VOLUME (test code 10.4 fl 7.4-10.4 N = MPV) NEUTROPHIL % (test code = NT%) 79.9 % 43-75 H IMMATURE GRANULOCYTE % (test 1.0 % 0.0-2.0 N code = IG%) LYMPHOCYTE % (test code = LY%) 4.8 % 14-44 L MONOCYTE % (test code = MO%) 13.4 % 4-13 H EOSINOPHIL % (test code = EO%) 0.5 % 0-6 N BASOPHIL % (test code = BA%) 0.4 % 0-2 N NUCLEATED RBC % (test code = 0.0 % 0-1.0 N NRBC%) NEUTROPHIL # (test code = NT#) 9.81 K/mm3 2.0-7.6 H IMMATURE GRANULOCYTE # (test 0.12 x10 3/uL 0-0.03 H code = IG#) LYMPHOCYTE # (test code = LY#) 0.59 K/mm3 1.0-3.8 L MONOCYTE # (test code = MO#) 1.65 K/mm3 0.1-0.8 H EOSINOPHIL # (test code = EO#) 0.06 K/mm3 0.0-0.2 N BASOPHIL # (test code = BA#) 0.05 K/mm3 0.0-0.2 N NUCLEATED RBC # (test code = 0.00 K/mm3 0.0-0.1 N NRBC#) BASIC METABOLIC [id number] 00:00:00 Test Item Value Reference Range Interpretation Comments SODIUM (test code = 130 MMOL/L 137-145 L NA) POTASSIUM (test code 4.2 MMOL/L 3.5-5.1 N = K) CHLORIDE (test code 98 MMOL/L 98-107 N = CL) CARBON DIOXIDE (test 23 MMOL/L 22-30 N code = CO2) ANION GAP (test code 13 MMOL/L 14-24 L = GAP) GLUCOSE (test code = 160 MG/DL 74-106 H GLU) BLOOD UREA NITROGEN 31 MG/DL 7-17 H (test code = BUN) GLOMERULAR 42 The Glomerular FILTRATION RATE Filtration R ate [...] ag e is <18 years. CREATININE (test 1.30 MG/DL 0.52-1.04 H code = CREAT) CALCIUM (test code = 8.2 MG/DL 8.4-10.2 L CA) [id number] 00:00:00 Test Item Value Reference Range Interpretation Comments MAGNESIUM (test code = MAG) 2.0 MG/DL 1.6-2.3 N GLUCOSE BEDSIDE [id number] 11:42:00 Test Item Value Reference Range Interpretation Comments GLUCOSE BEDSIDE TESTING (test code 151 MG/DL 60-99 H = GLUBED) [id number] 18:45:00 Test Item Value Reference Range Interpretation Comments MAGNESIUM (test code = MAG) 2.0 MG/DL 1.6-2.3 N Comment: add on testADD ON TEST? YesADD ON [id number] 06:14:00 Test Item Value Reference Range Interpretation Comments TROPONIN-I (test 0.396 NG/ML 0.012-0.033 HH CALLED TO Daniel TIDWELL.A& code = TROPI) READBACK ON AT 0614 BY Carmen Guerra COMPREHENSIVE METABOLIC [id number] 05:02:00 Test Item Value Reference Range Interpretation Comments SODIUM (test code 134 MMOL/L 137-145 L = NA) POTASSIUM (test 3.9 MMOL/L 3.5-5.1 N code = K) CHLORIDE (test 102 MMOL/L 98-107 N code = CL) CARBON DIOXIDE 24 MMOL/L 22-30 (test code = CO2) ANION GAP (test 12 MMOL/L 14-24 L code = GAP) GLUCOSE (test 155 MG/DL 74-106 H code = GLU) BLOOD UREA 20 MG/DL 7-17 H NITROGEN (test code = BUN) GLOMERULAR 52 The Glomerular Filtration FILTRATION RATE Rate is a ca lculated (test code = GFR) parameterb ased on serum Creatinine, pat ient age and sex. GFR values less than 60 mL/min/1.73 squ are meters are indicative ofChronic Kidney Disease. Values less than 15 mL/min/ 1.73square meters indicate Kidney failure. The ca lculation forGFR is based on the CKD-EPI (2020) calculation. This formulais race indifferent and is the recommended for roxana for GFRby the [facility] for Adults.The GFR will not ca lculate if the sex is unkn own or if thepatient's ag e is <18 years. CREATININE (test 1.10 MG/DL 0.52-1.04 H code = CREAT) TOTAL PROTEIN 6.1 G/DL 6.3-8.2 L [facility] Clinical Diagnostic (test code = has made us makenzie re of PROT) newinformation regarding the potential i nterference ofEltrombopag ( a bone marrow stimulan t used to treatthrombocyt onmenia and aplastic anemia ) with specific assays on the [facility] 5600 of which Total Protein is one of thoseassays per formed in our lab.Interfe rence testing perform ed at Ortho determined that Eltrombopag does interfere with Vitros Total Protein asfollowsEltrom bopag Interference fo r Vitros Product Total Protein:======= Eltrombopag Max Observed Av g. BiasConcentrati on Concentration Concentration== ==== 2.5 mg/dl 6.0 g/dl +0.41 +0.34 3.5 mg/dl 6.0 g /dl +0.50 +0.45 5 mg/dl 6 .0 g/dl +0.73 +0.65 2.5 mg/dl 8.0 g/dl +0.44 +0.4 1 3.5 mg/dl 8.0 g/dl +0.55 +0.52 5 mg/dl 8.0 g/dl +0.86 +0.77 ALBUMIN (test 3.4 G/DL 3.5-5.0 L code = ALB) CALCIUM (test 8.7 MG/DL 8.4-10.2 N code = CA) BILIRUBIN TOTAL 0.6 MG/DL 0.2-1.3 N Eltrombopag Interference (test code = for Vitros Prod uct TBil, BILT) BuBc: Assa y Eltrombopag Neha lyte/ Max Observed Avg. B ias Concentration C oncentration Concentration== ====TBil 7mg/dl TBil/ 1. 2mg/dl +0.23mg.dl +0.2 0mg/dlBuBc 3.5mg/dl Bu/0.8 mg/dl +0.25mg/dl +0.2 4mg/dlBuBc 7 mg/dl Bu/14.2mg /dl +0.38mg/dl +0.2 5mg/dlBuBc 5mg/dl Bc/0mg/d l +0.25mg/dl +0.15mg/dlBuBc 3.5mg/dl Bc/2.8mg/dl +0. 25mg/dl +0.23mg/dl SGOT/AST (test 38 UNITS/L 14-36 H code = AST) SGPT/ALT (test 35 UNITS/L 0-34 H code = ALT) ALKALINE 111 UNITS/L 38-126 N PHOSPHATASE (test code = ALKP) [id number] 05:02:00 Test Item Value Reference Range Interpretation Comments PHOSPHOROUS (test code = PHOS) 3.0 MG/DL 2.5-4.5 CBC W/AUTO [id number] 04:47:00 Test Item Value Reference Range Interpretation Comments WHITE BLOOD CELL (test code = 11.8 K/MM3 3.8-9.8 H WBC) RED BLOOD CELL (test code = 3.32 M/MM3 3.58-4.97 L RBC) HEMOGLOBIN (test code = HGB) 10.1 G/DL 11.2-14.9 L HEMATOCRIT (test code = HCT) 31.3 % 33.2-43.5 L MEAN CELL VOLUME (test code = 94 fL 80.7-99.1 N MCV) MEAN CELL HGB (test code = MCH) 30.4 pg 27.0-34.1 N MEAN CELL HGB CONCETRATION 32.3 % 32.2-35.7 N (test code = MCHC) RED CELL DISTRIBUTION WIDTH 15.7 % 12.1-15.2 H (test code = RDW) PLATELET COUNT (test code = 279 K/MM3 129-368 N PLT) MEAN PLATELET VOLUME (test code 8.9 fl 7.4-10.4 N = MPV) NEUTROPHIL % (test code = NT%) 88.0 % 43-75 H IMMATURE GRANULOCYTE % (test 1.1 % 0.0-2.0 N code = IG%) LYMPHOCYTE % (test code = LY%) 5.2 % 14-44 L MONOCYTE % (test code = MO%) 5.2 % 4-13 N EOSINOPHIL % (test code = EO%) 0.1 % 0-6 N BASOPHIL % (test code = BA%) 0.4 % 0-2 N NUCLEATED RBC % (test code = 0.0 % 0-1.0 N NRBC%) NEUTROPHIL # (test code = NT#) 10.37 K/mm3 2.0-7.6 H IMMATURE GRANULOCYTE # (test 0.13 x10 3/uL 0-0.03 H code = IG#) LYMPHOCYTE # (test code = LY#) 0.61 K/mm3 1.0-3.8 L MONOCYTE # (test code = MO#) 0.61 K/mm3 0.1-0.8 N EOSINOPHIL # (test code = EO#) 0.01 K/mm3 0.0-0.2 N BASOPHIL # (test code = BA#) 0.05 K/mm3 0.0-0.2 N NUCLEATED RBC # (test code = 0.00 K/mm3 0.0-0.1 N NRBC#) [id number] 02:07:00 Test Item Value Reference Range Interpretation Comments TROPONIN-I (test 0.488 NG/ML 0.012-0.033 HH CALLED TO Daniel ENRIQUEZ& code = TROPI) READBACK ON AT 0207 BY Carmen Guerra [id number] 23:47:00 Test Item Value Reference Range Interpretation Comments TROPONIN-I (test 0.586 NG/ML 0.012-0.033 HH CALLED TO Daniel ENRIQUEZ & code = TROPI) READBACK ON AT 2342 BY Carmen Guerra [id number] 21:07:00 Test Item Value Reference Range Interpretation Comments MAGNESIUM (test code = MAG) 2.2 MG/DL 1.6-2.3 N [id number] 21:07:00 Test Item Value Reference Range Interpretation Comments TROPONIN-I (test 0.545 NG/ML 0.012-0.033 HH CALLED TO Jaquan Gale & code = TROPI) READBACK ON AT 2046 BY Chelly Beard LIPOPROTEIN LDL [id number] 21:07:00 Test Item Value Reference Range Interpretation Comments LIPOPROTEIN LDL DIRECT 33 mg/dL 100-129 L ===== (test code = LDLDIR) ======= ==Refe rence Interval: mg/dL mmol/L--------- ------ ------ ------ --Optimal <100 <2.6Near/above optimal 100-129 2.6-3.3Borderli ne High 130-159 3.4-4.1High 160 -189 4.1-4.9Very Hig h >=190 >=4.9==== ===== This LDL result is a direct measurement.=== ====== BASIC METABOLIC [id number] 21:07:00 Test Item Value Reference Range Interpretation Comments SODIUM (test code = 135 MMOL/L 137-145 L NA) POTASSIUM (test code 4.4 MMOL/L 3.5-5.1 N = K) CHLORIDE (test code 101 MMOL/L 98-107 N = CL) CARBON DIOXIDE (test 28 MMOL/L 22-30 N code = CO2) ANION GAP (test code 10 MMOL/L 14-24 L = GAP) GLUCOSE (test code = 182 MG/DL 74-106 H GLU) BLOOD UREA NITROGEN 20 MG/DL 7-17 H (test code = BUN) GLOMERULAR 52 The Glomerular FILTRATION RATE Filtration R ate [...] ag e is <18 years. CREATININE (test 1.10 MG/DL 0.52-1.04 H code = CREAT) CALCIUM (test code = 8.8 MG/DL 8.4-10.2 N CA) HEPATIC FUNCTION [id number] 21:07:00 Test Item Value Reference Range Interpretation Comments TOTAL PROTEIN 6.3 G/DL 6.3-8.2 N [facility] Clinical Diagnostic (test code = has made us makenzie re of PROT) newinformation regarding the potential i nterference ofEltrombopag ( a bone marrow stimulan t used to treatthrombocyt onmenia and aplastic anemia ) with specific assays on the [employer] of which Total Protein is one of thoseassays per formed in our lab.Interfe rence testing perform ed at Ortho determined that Eltrombopag does interfere with [facility] Total Protein asfollowsEltrom bopag Interference fo r Vitros Product Total Protein:======= Eltrombopag Max Observed Av g. BiasConcentrati on Concentration Concentration== ==== 2.5 mg/dl 6.0 g/dl +0.41 +0.34 3.5 mg/dl 6.0 g /dl +0.50 +0.45 5 mg/dl 6 .0 g/dl +0.73 +0.65 2.5 mg/dl 8.0 g/dl +0.44 +0.4 1 3.5 mg/dl 8.0 g/dl +0.55 +0.52 5 mg/dl 8.0 g/dl +0.86 +0.77 ALBUMIN (test 3.5 G/DL 3.5-5.0 N code = ALB) BILIRUBIN TOTAL 0.6 MG/DL 0.2-1.3 N Eltrombopag Interference (test code = for Vitros Prod uct TBil, BILT) BuBc: Assa y Eltrombopag Neha lyte/ Max Observed Avg. B ias Concentration C oncentration Concentration== ====TBil 7mg/dl TBil/ 1. 2mg/dl +0.23mg.dl +0.2 0mg/dlBuBc 3.5mg/dl Bu/0.8 mg/dl +0.25mg/dl +0.2 4mg/dlBuBc 7 mg/dl Bu/14.2mg /dl +0.38mg/dl +0.2 5mg/dlBuBc 5mg/dl Bc/0mg/d l +0.25mg/dl +0.15mg/dlBuBc 3.5mg/dl Bc/2.8mg/dl +0. 25mg/dl +0.23mg/dl BILIRUBIN DIRECT 0.0 MG/DL 0.0-0.3 N Eltrombopag Interference (test code = for Vitros Prod uct TBil, BILD) BuBc: Assa y Eltrombopag Neha lyte/ Max Observed Avg. B ias Concentration C oncentration Concentration== ====TBil 7mg/dl TBil/ 1. 2mg/dl +0.23mg.dl +0.2 0mg/dlBuBc 3.5mg/dl Bu/0.8 mg/dl +0.25mg/dl +0.2 4mg/dlBuBc 7 mg/dl Bu/14.2mg /dl +0.38mg/dl +0.2 5mg/dlBuBc 5mg/dl Bc/0mg/d l +0.25mg/dl +0.15mg/dlBuBc 3.5mg/dl Bc/2.8mg/dl +0. 25mg/dl +0.23mg/dl SGOT/AST (test 49 UNITS/L 14-36 H code = AST) SGPT/ALT (test 40 UNITS/L 0-34 H code = ALT) ALKALINE 109 UNITS/L 38-126 N PHOSPHATASE (test code = ALKP) [id number] 21:07:00 Test Item Value Reference Range Interpretation Comments PHOSPHOROUS (test code = PHOS) 2.4 MG/DL 2.5-4.5 L PROTHROMBIN [id number] 20:24:00 Test Item Value Reference Range Interpretation Comments PROTHROMBIN TIME 13.8 SECONDS 10.1-12.6 H PATIENT (test code = PTP) INTERNATIONAL NORMAL 1.2 0.86-1.14 H The INR is to be RATIO (test [...] dial infarction. 2. 0 - 3.0 3. 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 3.0 - 4.5 PTT [id number] 20:24:00 Test Item Value Reference Range Interpretation Comments PTT ACTIVATED (test code = APTT) 27.0 SECONDS 27.2-37.9 L CBC W/O [id number] 20:16:00 Test Item Value Reference Range Interpretation Comments WHITE BLOOD CELL (test code = 12.9 K/MM3 3.8-9.8 H WBC) RED BLOOD CELL (test code = 3.37 M/MM3 3.58-4.97 L RBC) HEMOGLOBIN (test code = HGB) 10.1 G/DL 11.2-14.9 L HEMATOCRIT (test code = HCT) 32.2 % 33.2-43.5 L MEAN CELL VOLUME (test code = 96 fL 80.7-99.1 MCV) MEAN CELL HGB (test code = MCH) 30.0 pg 27.0-34.1 N MEAN CELL HGB CONCETRATION 31.4 % 32.2-35.7 L (test code = MCHC) RED CELL DISTRIBUTION WIDTH 15.6 % 12.1-15.2 H (test code = RDW) PLATELET COUNT (test code = 308 K/MM3 129-368 N PLT) NEUTROPHIL # (test code = NT#) 11.81 K/mm3 2.0-7.6 H IMMATURE GRANULOCYTE # (test 0.10 x10 3/uL 0-0.03 H code = IG#) LYMPHOCYTE # (test code = LY#) 0.41 K/mm3 1.0-3.8 L MONOCYTE # (test code = MO#) 0.49 K/mm3 0.1-0.8 N EOSINOPHIL # (test code = EO#) 0.00 K/mm3 0.0-0.2 N BASOPHIL # (test code = BA#) 0.06 K/mm3 0.0-0.2 N NUCLEATED RBC # (test code = 0.00 K/mm3 0.0-0.1 N NRBC#) GLUCOSE [id number] 12:07:00 Test Item Value Reference Range Interpretation Comments GLUCOSE BEDSIDE (test 149 MG/DL 70-110 H Perfor med by certified code = GLUBED) 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 [facility] GLUCOSE [id number] 06:05:00 Test Item Value Reference Range Interpretation Comments GLUCOSE BEDSIDE (test 125 MG/DL 70-110 H Perfor med by certified code = GLUBED) 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 [facility] GLUCOSE [id number] 20:11:00 Test Item Value Reference Range Interpretation Comments GLUCOSE BEDSIDE (test 124 MG/DL 70-110 H Perfor med by certified code = GLUBED) 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 [facility] GLUCOSE [id number] 16:08:00 Test Item Value Reference Range Interpretation Comments GLUCOSE BEDSIDE (test 96 MG/DL 70-110 N Perfor med by certified code = GLUBED) 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 [facility] GLUCOSE [id number] 10:49:00 Test Item Value Reference Range Interpretation Comments GLUCOSE BEDSIDE (test 122 MG/DL 70-110 H Perfor med by certified code = GLUBED) 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 [facility] GLUCOSE [id number] 04:36:00 Test Item Value Reference Range Interpretation Comments GLUCOSE BEDSIDE (test 122 MG/DL 70-110 H Perfor med by certified code = GLUBED) 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 [facility] GLUCOSE [id number] 20:10:00 Test Item Value Reference Range Interpretation Comments GLUCOSE BEDSIDE (test 107 MG/DL 70-110 N Perfor med by certified code = GLUBED) 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 [facility] GLUCOSE [id number] 15:24:00 Test Item Value Reference Range Interpretation Comments GLUCOSE BEDSIDE (test 95 MG/DL 70-110 N Perfor med by certified code = GLUBED) 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 [facility] GLUCOSE [id number] 10:53:00 Test Item Value Reference Range Interpretation Comments GLUCOSE BEDSIDE (test 203 MG/DL 70-110 H Perfor med by certified code = GLUBED) 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 [facility] GLUCOSE [id number] 05:54:00 Test Item Value Reference Range Interpretation Comments GLUCOSE BEDSIDE (test 112 MG/DL 70-110 H Perfor med by certified code = GLUBED) 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 [facility] BASIC METABOLIC [id number] 03:19:00 Test Item Value Reference Range Interpretation [...] = 8.5 mg/dL 8.0-10.5 N CA) GLUCOSE [id number] 20:10:00 Test Item Value Reference Range Interpretation Comments GLUCOSE BEDSIDE (test 165 MG/DL 70-110 H Perfor med by certified code = GLUBED) 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 [facility] GLUCOSE [id number] 16:46:00 Test Item Value Reference Range Interpretation Comments GLUCOSE BEDSIDE (test 158 MG/DL 70-110 H Perfor med by certified code = GLUBED) 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 [facility] GLUCOSE [id number] 11:15:00 Test Item Value Reference Range Interpretation Comments GLUCOSE BEDSIDE (test 152 MG/DL 70-110 H Perfor med by certified code = GLUBED) 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 [facility] GLUCOSE [id number] 06:06:00 Test Item Value Reference Range Interpretation Comments GLUCOSE BEDSIDE (test 129 MG/DL 70-110 H Perfor med by certified code = GLUBED) 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 [facility] GLUCOSE [id number] 20:09:00 Test Item Value Reference Range Interpretation Comments GLUCOSE BEDSIDE (test 126 MG/DL 70-110 H Perfor med by certified code = GLUBED) 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 [facility] GLUCOSE [id number] 16:38:00 Test Item Value Reference Range Interpretation Comments GLUCOSE BEDSIDE (test 102 MG/DL 70-110 N Perfor med by certified code = GLUBED) 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 [facility] GLUCOSE [id number] 10:29:00 Test Item Value Reference Range Interpretation Comments GLUCOSE BEDSIDE (test 192 MG/DL 70-110 H Perfor med by certified code = GLUBED) 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 [facility] BASIC METABOLIC [id number] 08:19:00 Test Item Value Reference Range Interpretation [...] the recommended for roxana for GFRby the [facility] on for Adults.The GFR will not calculate if th e sex is unknown or if thepatient's ag e is <18 years. CREATININE (test 1.6 mg/dL 0.6-1.3 H code = CREAT) CALCIUM (test code = 8.8 mg/dL 8.0-10.5 N CA) GLUCOSE [id number] 05:39:00 Test Item Value Reference Range Interpretation Comments GLUCOSE BEDSIDE (test 133 MG/DL 70-110 H Perfor med by certified code = GLUBED) 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 [facility] GLUCOSE [id number] 20:34:00 Test Item Value Reference Range Interpretation Comments GLUCOSE BEDSIDE (test 87 MG/DL 70-110 N [facility] med by certified code = GLUBED) 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 [facility] GLUCOSE [id number] 16:14:00 Test Item Value Reference Range Interpretation Comments GLUCOSE BEDSIDE (test 97 MG/DL 70-110 N [facility] med by certified code = GLUBED) 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 [facility] [id number] 12:33:00 Test Item Value Reference Range Interpretation Comments MAGNESIUM (test code = 1.49 mg/dL 1.6-2.6 L NOTE: NEW NORMAL MAG) RANGE CBC W/AUTO [id number] 12:18:00 Test Item Value Reference Range Interpretation [...] 0.00 x10 3/uL 0.0-0.1 N NRBC#) GLUCOSE [id number] 11:18:00 Test Item Value Reference Range Interpretation Comments GLUCOSE BEDSIDE (test 152 MG/DL 70-110 H Perfor med by certified code = GLUBED) 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 [facility] GLUCOSE [id number] 07:13:00 Test Item Value Reference Range Interpretation Comments GLUCOSE BEDSIDE (test 102 MG/DL 70-110 N Perfor med by certified code = GLUBED) 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 [facility] GLUCOSE [id number] 20:19:00 Test Item Value Reference Range Interpretation Comments GLUCOSE BEDSIDE (test 140 MG/DL 70-110 H Perfor med by certified code = GLUBED) 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 [facility] GLUCOSE [id number] 18:05:00 Test Item Value Reference Range Interpretation Comments GLUCOSE BEDSIDE (test 130 MG/DL 70-110 H Perfor med by certified code = GLUBED) 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 [facility] - DUP VEIN [id number] 15:29:00 [facility] 1945 Sex: F Name: BREA RODRIGUEZ [facility] Jayme Loredo : 1945 Age/S: 77 / F [address] [place] [address] BlvdUnit #: [id number] Loc: [place] [address] Phys: Kristyn Soto Acct: [id number] Dis Date: Status: ADM IN PHONE #: [phone] Exam Date: 07/08/2023 1504 FAX #: [phone] Reason: rule out DVT of Left lower extremity EXAMS: CPT CODE: [id number] DUP VEIN UNI/LTD 40624 EXAM: - DUP VEINUNI/LTD HISTORY: rule out DVT of Left lower extremity LOCATION CODE:T18 COMPARISON: None TECHNIQUE: Hendrix-scale B-mode imaging, color doppler interrogation and spectral doppler waveform analysis of theleft common femoral, profunda femoral, superficial femoral and [...] Sorensen MD Technologist: Mariaa De La Cruz Trnkyb Date/Time: 07/08/2023 (1529) [email or web address] Orig Print D/T: S: 07/08/2023 (1533) Probe: PAGE 1 Signed Report- DUP VEIN [id number] 15:29:00 [facility] JAYME LOREDOName: BREA GILES : 1945 Sex: F Name: BREA GILES [facility] Jayme Loredo : 1945 Age/S: 77 / F [address] [place] [address] Blvd Unit #: [id number] Loc: [place] [address] Phys: Kristyn Soto AGACNAngella Acct: [id number] Dis Date: [id number] Status: DIS IN PHONE #: [phone] Exam Date: 07/08/2023 1504 FAX #: [phone]: rule out DVT of Left lower extremity EXAMS: CPT CODE: [id number] DUP VEIN UNI/LTD 19844 EXAM: - DUP VEIN UNI/LTD HISTORY: rule out DVT of Left lower extremity LOCATION CODE:T18 COMPARISON: NoneTECHNIQUE: Hendrix-scale B-mode imaging, color doppler interrogation and [...] Mariaa De La Cruz Trnscb Date/Time: 07/08/2023 (1529) [email or web address] Orig Print D/T: S: 07/08/2023 (1533) Probe: PAGE 1 Signed ReportGLUCOSE BEDSIDE 2023-07-08 11:57:00 Test Item Value Reference Range Interpretation Comments GLUCOSE BEDSIDE (test 143 MG/DL 70-110 H Perfor med by certified code = GLUBED) 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 [facility] BASIC METABOLIC [id number] 07:56:00 Test Item Value Reference Range Interpretation [...] the recommended for roxana for GFRby the [facility]ati on for Adults.The GFR will not calculate if th e sex is unknown or if thepatient's ag e is <18 years. CREATININE (test 1.6 mg/dL 0.6-1.3 H code = CREAT) CALCIUM (test code = 8.6 mg/dL 8.0-10.5 N CA) B-TYPE NATRIURETIC [id number] 07:00:00 Test Item Value Reference Range Interpretation Comments B-TYPE NATRIURETIC PEPTIDE (test 539.0 PG/ML 0-100 H code = BNP) GLUCOSE [id number] 05:30:00 Test Item Value Reference Range Interpretation Comments GLUCOSE BEDSIDE (test 119 MG/DL 70-110 H Perfor med by certified code = GLUBED) 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 [facility] GLUCOSE [id number] 19:43:00 Test Item Value Reference Range Interpretation Comments GLUCOSE BEDSIDE (test 135 MG/DL 70-110 H Perfor med by certified code = GLUBED) 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 [facility] GLUCOSE [id number] 16:25:00 Test Item Value Reference Range Interpretation Comments GLUCOSE BEDSIDE (test 125 MG/DL 70-110 H Perfor med by certified code = GLUBED) 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 [facility] BASIC METABOLIC [id number] 14:36:00 Test Item Value Reference Range Interpretation [...] the recommended for roxana for [facility]by the [facility] for Adults.The GFR will not calculate if th e sex is unknown or if thepatient's ag e is <18 years. CREATININE (test 1.6 mg/dL 0.6-1.3 H code = CREAT) CALCIUM (test code = 9.2 mg/dL 8.0-10.5 N CA) GLUCOSE [id number] 12:02:00 Test Item Value Reference Range Interpretation Comments GLUCOSE BEDSIDE (test 188 MG/DL 70-110 H Perfor med by certified code = GLUBED) 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 [facility] GLUCOSE [id number] 05:58:00 Test Item Value Reference Range Interpretation Comments GLUCOSE BEDSIDE (test 136 MG/DL 70-110 H Perfor med by certified code = GLUBED) 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 [facility] BASIC METABOLIC [id number] 22:15:00 Test Item Value Reference Range Interpretation [...] the recommended for roxana for GFRby the [facility] on for Adults.The GFR will not calculate if th e sex is unknown or if thepatient's ag e is <18 years. CREATININE (test 1.7 mg/dL 0.6-1.3 H code = CREAT) CALCIUM (test code = 8.8 mg/dL 8.0-10.5 N CA) CBC W/AUTO [id number] 21:58:00 Test Item Value Reference Range Interpretation [...] 0.00 x10 3/uL 0.0-0.1 N NRBC#) GLUCOSE [id number] 19:31:00 Test Item Value Reference Range Interpretation Comments GLUCOSE BEDSIDE (test 122 MG/DL 70-110 H Perfor med by certified code = GLUBED) 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 [facility] GLUCOSE [id number] 16:43:00 Test Item Value Reference Range Interpretation Comments GLUCOSE BEDSIDE (test 98 MG/DL 70-110 N Perfor med by certified code = GLUBED) 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 [facility] GLUCOSE [id number] 11:07:00 Test Item Value Reference Range Interpretation Comments GLUCOSE BEDSIDE (test 153 MG/DL 70-110 H Perfor med by certified code = GLUBED) 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 [facility] GLUCOSE [id number] 05:55:00 Test Item Value Reference Range Interpretation Comments GLUCOSE BEDSIDE (test 112 MG/DL 70-110 H Perfor med by certified code = GLUBED) 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 [facility] GLUCOSE [id number] 19:46:00 Test Item Value Reference Range Interpretation Comments GLUCOSE BEDSIDE (test 158 MG/DL 70-110 H Perfor med by certified code = GLUBED) 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 [facility] GLUCOSE [id number] 16:10:00 Test Item Value Reference Range Interpretation Comments GLUCOSE BEDSIDE (test 123 MG/DL 70-110 H Perfor med by certified code = GLUBED) 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 [facility] GLUCOSE [id number] 10:57:00 Test Item Value Reference Range Interpretation Comments GLUCOSE BEDSIDE (test 156 MG/DL 70-110 H Perfor med by certified code = GLUBED) 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 [facility] GLUCOSE [id number] 05:47:00 Test Item Value Reference Range Interpretation Comments GLUCOSE BEDSIDE (test 131 MG/DL 70-110 H Perfor med by certified code = GLUBED) 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 [facility] GLUCOSE [id number] 19:46:00 Test Item Value Reference Range Interpretation Comments GLUCOSE BEDSIDE (test 148 MG/DL 70-110 H Perfor med by certified code = GLUBED) 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 [facility] GLUCOSE [id number] 16:43:00 Test Item Value Reference Range Interpretation Comments GLUCOSE BEDSIDE (test 147 MG/DL 70-110 H Perfor med by certified code = GLUBED) 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 [facility] GLUCOSE [id number] 10:59:00 Test Item Value Reference Range Interpretation Comments GLUCOSE BEDSIDE (test 168 MG/DL 70-110 H Perfor med by certified code = GLUBED) 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 [facility] BASIC METABOLIC [id number] 07:24:00 Test Item Value Reference Range Interpretation [...] race indifferent and is the recommended for [facility] for GFRby the [facility] Foundati on for Adults.The GFR will not calculate if th e sex is unknown or if thepatient's ag e is <18 years. CREATININE (test 1.3 mg/dL 0.6-1.3 N code = CREAT) CALCIUM (test code = 8.9 mg/dL 8.0-10.5 N CA) GLUCOSE [id number] 05:10:00 Test Item Value Reference Range Interpretation Comments GLUCOSE BEDSIDE (test 149 MG/DL 70-110 H Perfor med by certified code = GLUBED) 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 [facility] GLUCOSE [id number] 19:40:00 Test Item Value Reference Range Interpretation Comments GLUCOSE BEDSIDE (test 101 MG/DL 70-110 N Perfor med by certified code = GLUBED) 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 [facility] GLUCOSE [id number] 15:55:00 Test Item Value Reference Range Interpretation Comments GLUCOSE BEDSIDE (test 89 MG/DL 70-110 N Perfor med by certified code = GLUBED) 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 [facility] GLUCOSE [id number] 11:03:00 Test Item Value Reference Range Interpretation Comments GLUCOSE BEDSIDE (test 186 MG/DL 70-110 H Perfor med by certified code = GLUBED) 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 [facility] GLUCOSE [id number] 05:55:00 Test Item Value Reference Range Interpretation Comments GLUCOSE BEDSIDE (test 117 MG/DL 70-110 H Perfor med by certified code = GLUBED) 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 [facility] GLUCOSE [id number] 19:49:00 Test Item Value Reference Range Interpretation Comments GLUCOSE BEDSIDE (test 173 MG/DL 70-110 H Perfor med by certified code = GLUBED) 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 [facility] GLUCOSE [id number] 16:39:00 Test Item Value Reference Range Interpretation Comments GLUCOSE BEDSIDE (test 133 MG/DL 70-110 H Perfor med by certified code = GLUBED) 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 [facility] GLUCOSE [id number] 12:43:00 Test Item Value Reference Range Interpretation Comments GLUCOSE BEDSIDE (test 169 MG/DL 70-110 H Perfor med by certified code = GLUBED) 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 [facility] VITAMIN [id number] 09:06:00 Test Item Value Reference Range Interpretation Comments VITAMIN B12 (test code = VITB12) 1377 pg/mL 193-986 H Indication for Test: Osteopenia/Bone Dis RiskFOLIC [id number] 09:06:00 Test Item Value Reference Range Interpretation Comments FOLIC ACID (test code = FOL) 20.3 ng/mL 3.1-17.5 H Indication for Test: Osteopenia/Bone Dis RiskVITAMIN D 13-[id number] 09:06:00 Test Item Value Reference Range Interpretation Comments VITAMIN D 25-HYDROXY (test code = 58.0 ng/mL 30-100 N VITD25) Indication for Test: Osteopenia/Bone Dis RiskTHYROID STIMULATING HORMONE 2023-07-02 09:06:00 Test Item Value Reference Range Interpretation Comments THYROID STIMULATING 3.72 0.42-5.47 N Results in HORMONE (test code = TSH) mi lli-International Units/mL GLUCOSE [id number] 07:21:00 Test Item Value Reference Range Interpretation Comments GLUCOSE BEDSIDE (test 124 MG/DL 70-110 H Perfor med by certified code = GLUBED) 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 [facility] GLUCOSE [id number] 16:38:00 Test Item Value Reference Range Interpretation Comments GLUCOSE BEDSIDE (test 169 MG/DL 70-110 H Perfor med by certified code = GLUBED) 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 - XR CHEST 1 [id number] 08:33:00 [facility] : 1945 Sex: F FAX: Sherrill Zurita MD [phone] [place]: St: [facility] FAX: Shahnaz Miller MD [phone] FAX: Kaia Nolan MD Name: BREA ZULUAGA [facility] : 1945 Age/S: 77/F [address] [place] [address] Unit #: [id number] Loc: [address] [address] Phys: Sherrill Liang MD Acct: [id number] Dis Date: Status: ADM IN PHONE #: [phone] Exam Date: 07/01/202308 FAX #: [phone] Reason: S/P CABG, R/O EFFUSION EXAMS: CPT CODE: [id number] XR CHEST 1 V 75713 REASON FOR EXAM: CABG, effusion. COMPARISON: June 29, 2023.. Chest, portable single frontal view. The lungs are well-inflated with similar pulmonary edema pattern and congestion.. Heart size is enlarged with CABG changes. ICD leads appear to be intact. No effusion or pneumothorax can be seen. Osseous structures appear to be intact. IMPRESSION: Vascular congestion/heart failure continue. Location: [facility] at 0833 Reported and signed by: Alf Banks M.D. CC:Sherrill Liang MD; Shahnaz Miller MD; Kaia Nolan MD Technologist: RT Vic(Maddison) Trnscrd Date/Time/By: 07/01/2023 (0833) : By: [email or web address] Orig Print D/T: S: 07/01/2023 (7636) PAGE 1 Signed Report- XR CHEST 1 [id number] 08:33:00 [facility] JAYME LOREDOName: BREA GILES : 1945 Sex: F FAX: Sherrill Zurita MD [phone] [place]: St: DIS FAX: Shahnaz Miller MD [phone]: Kaia Nolan MD Name: BREA GILES [facility] [place] : 1945 Age/S: 77/F [address] [place] [address] Unit #: [id number] Loc: G.3344 [place] [address] Phys: Sherrill Liang MD Acct: [id number] Dis Date: 20230701 Status: DIS IN PHONE #: [phone] Exam Date: 07/01/2023 0708 FAX #: [phone] Reason: S/P CABG, R/O EFFUSION EXAMS: CPT CODE: [id number] XR CHEST 1 V 14944 REASON FOR EXAM: CABG, effusion. COMPARISON: June 29, 2023.. Chest, portable single frontal view. The lungs are well-inflated with similar pulmonary edema pattern and congestion.. Heart size is enlarged with CABG changes.ICD leads appear to be intact. No effusion or pneumothorax can be seen. Osseous structures appear nina intact. IMPRESSION: Vascular congestion/heart failure continue. Location: 9 at 0833 Reported and signed by: Alf Banks M.D. 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 [facility] BASIC METABOLIC [id number] 07:23:00 Test Item Value Reference Range Interpretation [...] code = 8.8 mg/dL 8.0-10.5 N CA) [id number] 07:23:00 Test Item Value Reference Range Interpretation Comments MAGNESIUM (test code = 2.00 mg/dL 1.6-2.6 N NOTE: NEW NORMAL MAG) RANGE CBC W/AUTO [id number] 07:15:00 Test Item Value Reference Range Interpretation [...] REQUIRED (test code NO = MDIFF) GLUCOSE [id number] 19:52:00 Test Item Value Reference Range Interpretation Comments GLUCOSE BEDSIDE (test 186 MG/DL 70-110 H Perfor med by certified code = GLUBED) 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 [facility] GLUCOSE [id number] 17:03:00 Test Item Value Reference Range Interpretation Comments GLUCOSE BEDSIDE (test 182 MG/DL 70-110 H Perfor med by certified code = GLUBED) 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 [facility] GLUCOSE [id number] 12:19:00 Test Item Value Reference Range Interpretation Comments GLUCOSE BEDSIDE (test 200 MG/DL 70-110 H Perfor med by certified code = GLUBED) 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 [facility] GLUCOSE [id number] 08:16:00 Test Item Value Reference Range Interpretation Comments GLUCOSE BEDSIDE (test 130 MG/DL 70-110 H Perfor med by certified code = GLUBED) 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 [facility] BASIC METABOLIC [id number] 08:10:00 Test Item Value Reference Range Interpretation [...] code = 8.9 mg/dL 8.0-10.5 N CA) [id number] 08:10:00 Test Item Value Reference Range Interpretation Comments MAGNESIUM (test code = 2.09 mg/dL 1.6-2.6 N NOTE: NEW NORMAL MAG) RANGE CBC W/AUTO [id number] 08:01:00 Test Item Value Reference Range Interpretation [...] REQUIRED (test code NO = MDIFF) GLUCOSE [id number] 21:14:00 Test Item Value Reference Range Interpretation Comments GLUCOSE BEDSIDE (test 179 MG/DL 70-110 H Perfor med by certified code = GLUBED) 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 [facility] GLUCOSE [id number] 17:18:00 Test Item Value Reference Range Interpretation Comments GLUCOSE BEDSIDE (test 133 MG/DL 70-110 H Perfor med by certified code = GLUBED) 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 [facility] GLUCOSE [id number] 12:22:00 Test Item Value Reference Range Interpretation Comments GLUCOSE BEDSIDE (test 206 MG/DL 70-110 H Perfor med by certified code = GLUBED) 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 [facility] GLUCOSE [id number] 08:29:00 Test Item Value Reference Range Interpretation Comments GLUCOSE BEDSIDE (test 125 MG/DL 70-110 H Perfor med by certified code = GLUBED) 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 [facility] - XR CHEST 1 [id number] 07:58:00 [facility] 1945 Sex: F FAX: Shahnaz Miller MD [phone] [place]: St: ADM FAX: Kaia Nolan MD FAX: Ofelia Dean Phy [phone] Name: BREA ZULUAGA [facility] : 1945 Age/S: 77/F [address] [place], [place] [address]vd Unit #: [id number] Loc: G.[address] [place] [address] Phys: Estee Jordan Acct: [id number] Dis Date: Status: ADM IN PHONE #: [phone] Exam Date: 06/29/2023624 FAX #: [phone] Reason: Cardiac Surgery Post Op EXAMS: CPT CODE: [id number] XR CHEST 1 V 97676 EXAM: - XR CHEST 1 V HISTORY: [...] D/T: S: 06/29/2023 (0801) PAGE 1 Signed Report- XR CHEST 1 [id number] 07:58:00 [facility] : 1945 Sex: F FAX: Shahnaz Miller MD [phone] [place]: St: DIS FAX: Kaia Nolan MD FAX: Adilene Dean Phy [phone] Name: BREA GILES [facility] : 1945 Age/S: 77/F [address] [place] [address] Bl Unit #: [id number] Loc: G.3344 [place] [address] Phys: Estee Jordan Acct: [id number] Dis Date: 20230701 Status: DIS IN PHONE #: [phone] Exam Date: 06/29/2023624 FAX #: [phone]: Cardiac Surgery Post Op EXAMS: CPT CODE: [id number] XR CHEST 1 V 74644 EXAM: - XR CHEST 1 V HISTORY: [...] Vic(Maddison) Trnscrd Date/Time/By: 06/29/2023 (0758) : By: [email or web address] Orig Print D/T: S: 06/29/2023 (0801) PAGE 1 Signed ReportBASIC METABOLIC [id number] 03:21:00 Test Item Value Reference Range Interpretation [...] the recommended for roxana for GFRby the [facility] on for Adults.The GFR will not calculate if th e sex is unknown or if thepatient's ag e is <18 years. CREATININE (test 1.4 mg/dL 0.6-1.3 H code = CREAT) CALCIUM (test code = 8.3 mg/dL 8.0-10.5 N CA) [id number] 03:21:00 Test Item Value Reference Range Interpretation Comments MAGNESIUM (test code = 2.36 mg/dL 1.6-2.6 N NOTE: NEW NORMAL MAG) RANGE CBC W/AUTO [id number] 02:59:00 Test Item Value Reference Range Interpretation [...] (test code NO = MDIFF) BASIC METABOLIC [id number] 22:31:00 Test Item Value Reference Range Interpretation [...] code = 8.0 mg/dL 8.0-10.5 N CA) [id number] 22:31:00 Test Item Value Reference Range Interpretation Comments MAGNESIUM (test code = 2.10 mg/dL 1.6-2.6 N NOTE: NEW NORMAL MAG) RANGE GLUCOSE [id number] 20:02:00 Test Item Value Reference Range Interpretation Comments GLUCOSE BEDSIDE (test 170 MG/DL 70-110 H Perfor med by certified code = GLUBED) 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 [facility] GLUCOSE [id number] 12:11:00 Test Item Value Reference Range Interpretation Comments GLUCOSE BEDSIDE (test 160 MG/DL 70-110 H Perfor med by certified code = GLUBED) 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 [facility] - XR CHEST 1 [id number] 07:18:00 [facility] : 1945 Sex: F FAX: Shahnaz Miller MD [phone] [place]: St: ADM FAX: Kaia Nolan MD FAX: Ofelia Dean y [phone] Name: BREA ZULUAGA [facility] : 1945 Age/S: 77/F [address] [place] [address] Unit #: [id number] Loc: [address] [address] Phys: Estee Jordan Physic Acct: [id number] Dis Date: Status: ADM IN PHONE #: [phone] Exam Date: 06/28/2023522 FAX #: [phone] Reason: Cardiac Surgery Post Op EXAMS: CPT CODE: [id number] XR CHEST 1 V 08608 HISTORY: Follow- up postop Location: C3 COMPARISON:06/27/2023 FINDINGS: Cardiomegaly and vascular congestion persists. Previously seen right IJ catheter has been removed. No pneumothorax. Mild perihilar opacity persists. No other changes compared to prior exam. IMPRESSION: 1. Interval removal of right IJ catheter. 2. Cardiomegaly with vascular congestion similar to prior study. at 0718 Reported and signed by: Alf Franco M.D. CC: Shahnaz Miller MD; Kaia Nolan MD; Estee Jordan Technologist: Saritha Hart, RT(R) Trnscrd Date/Time/By: 06/28/2023 (717) :By: [email or web address] Orig Print D/T: S: 06/28/2023 (07) PAGE 1 Signed Report - XR CHEST 1 [id number] 07:18:00 [facility] : 1945 Sex: F FAX: Shahnaz Miller MD [phone] [place]: St: DIS FAX: Kaia Nolan MD FAX: Adilene Dean Name: BREA GILES [facility] [place] : 1945 Age/S: 77/F [address] [place] [address] Unit #: [id number] Loc: G.33[address] [place] [address] Phys: Estee Jordan Acct: [id number] Dis Date: 20230701 Status: DIS IN PHONE #: [phone] Exam Date: 06/28/202323 FAX #: [phone] Reason: Cardiac Surgery Post Op EXAMS: CPT CODE: [id number] XR CHEST 1 V 39746 HISTORY: Follow-up postop Location: C3 COMPARISON:06/27/2023 FINDINGS: Cardiomegaly and vascular congestion persists. Previously seen right IJ catheter has been removed. No pneumothorax. Mild perihilar opacity persists. No other changes compared to prior exam. IMPRESSION: 1. Interval removal of right IJ catheter. 2. Cardiomegaly with vascular congestion similar to prior study. Electronically Signed by Gustabo Franco on06/28/2023 at 0718 Reported and signed by: Alf Franco M.D. CC: Shahnaz Miller MD; Kaai Nolan MD; Estee Jordan Technologist: Saritha Hart RT(R) Trnscrd Date/Time/By: 06/28/2023 (0718) : By: [email or web address] Orig Print D/T: S: 06/28/2023 (6795) PAGE 1 Signed ReportBASIC METABOLIC [id number] 04:53:00 Test Item Value Reference Range Interpretation [...] code = 8.2 mg/dL 8.0-10.5 N CA) [id number] 04:53:00 Test Item Value Reference Range Interpretation Comments MAGNESIUM (test code = 2.19 mg/dL 1.6-2.6 N NOTE: NEW NORMAL MAG) RANGE CBC W/AUTO [id number] 04:43:00 Test Item Value Reference Range Interpretation [...] code NO = MDIFF) POC ARTERIAL BLOOD [id number] 04:25:00 Test Item Value Reference Range Interpretation Comments POC ARTERIAL BLOOD GAS PH (test 7.541 7.35-7.45 HH code = POCPHA) POC ARTERIAL BLOOD GAS PCO2 36.7 mmHg 35.0-45 N (test code = TTZXYP9T) POC TCO2 ARTERIAL (test code = 32.8 POCTCO2) POC ARTERIAL BLOOD GAS PO2 (test 65.2 mmHg 80-100.0 L code = CSRYC5Z) POC HCO3 ARTERIAL (test code = 31.6 MMOL/L 22.0-26.0 HH WYIDDL4J) POC BASE EXCESS (test code = 8.9 MMOL/L -4.0-4.0 H POCBEA) POC O2 SATURATION (test code = 95.3 % 90-100 N POCO2S) FIO2 (test code = FIO2A) 28.0 % PaO2/FiO2 (test code = BHY8GQN1) 232.80 mm/Hg ABG DELIVERY (test code = PHILLIP) Cannula ABG TEMPERATURE (test code = 97.5 F TEMPA) ABG SITE (test code = SITEA) L Jero RAKESH'S TEST (test code = Positive ALLENS) GLUCOSE [id number] 20:50:00 Test Item Value Reference Range Interpretation Comments GLUCOSE BEDSIDE (test 121 MG/DL 70-110 H Perfor med by certified code = GLUBED) 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 [facility] [id number] 15:18:00 Test Item Value Reference Interpretation Comments Range SURGICAL (test code = SR) RUN DATE: 06/27/23 [place] - LAB PAGE 1 RUN TIME: 1518 Specimen Inquiry RUN USER: INTERFACE PATIENT: BREA ZULUAGA LOC: [facility] U #: [id number] AGE/SX: 77/F ROOM: [facility] RE06/13/23REG DR: Kaia Nolan MD : [birth year] BED: 1 DIS: STATUS: ADM IN TLOC: SPEC #: [id number] RECD: 06/24/23 STATUS: MARTITA RE #: [id number] JORGE: 06/23/23- SUBM DR: Lucio Liang MD ENTERED: 06/24/23-853 SP TYPE: SURGICAL OTHR DR: No Primary or Family Physician Self Referred Lyubov [place] MD, Aisha MD Chaugle, Abdul Hannan MD Gupta, Kalpana J MD Hammoudeh, Fadi MDORDERED: 72283, ANATOMIC SPEC COPIES TO: No Primary or Family Physician Self Referred Lyubov [place] MD [address] [place] [address] Usha Berrios MD [address] [place] [address] Lucio Liang MD [address] [facility]. [address] [place] [address] Shahnaz Miller MD [address] [place] [address]. [place] [address] Dallas Hinds MD [address] [place] [address] PROCEDURES: 19577 (06/24/23-853) TISSUES: A. ATRIUM - LEFT ATRIAL APPENDAGE CONTINUED ON NEXT PAGE RUN DATE: 06/27/23 [place] - [facility] PAGE 2 RUN TIME: 1518 Specimen Inquiry RUN USER: INTERFACE SPEC #: [id number] PATIENT: FREDIQRAGIOVANNIBREA CARSON #[id number] (Continued) - CLINICAL HISTORY SAME FINAL DIAGNOSIS LEFT ATRIAL APPENDAGE, CABG: - Tissue segment consistent with atrial appendage, showing degenerative changes GROSS DESCRIPTION Received in formalin labeled left atrial appendage is a 3 x 1 x 0.8 cm portion of musculartissue with attached adipose (A). Technical component performed at [facility],[address] [place] [address], [place] [address] Unless gross only, the diagnosis is based [...] 06/27/23 1518 END OF REPORT BASIC METABOLIC [id number] 12:55:00 Test Item Value Reference Range Interpretation [...] race indifferent and is the recommended for roxaan for GFRby the [facility] for Adults.The GFR will not calculate if th e sex is unknown or if thepatient's ag e is <18 years. CREATININE (test 1.6 mg/dL 0.6-1.3 H code = CREAT) CALCIUM (test code = 8.2 mg/dL 8.0-10.5 N CA) - XR CHEST 1 [id number] 10:48:00 [facility] : 1945 Sex: F FAX: Shahnaz Miller MD [phone] [place]: St: ADM FAX: Kaia Nolan MD FAX: Will Dean L Phy [phone] Name: BREA ZULUAGA [facility] : 1945 Age/S: 77/F [address] [facility] Unit #: [id number] Loc: [place] [address] Phys: Estee Jordan Acct: [id number] DisDate: Status: ADM IN PHONE #: [phone] Exam Date: 06/27/2023 1032 FAX #: [phone] Reason: Cardiac Surgery Post Op EXAMS: CPT CODE: [id number] XR CHEST 1 V 65680 HISTORY: Cardiac surgery, postopLocation: C3 COMPARISON:06/26/2023 FINDINGS: There is cardiomegaly with vascular congestion. 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 Right IJ catheter is again noted. Perihilar and basilar opacities are present slightly improved compared to prior study. No pneumothorax. No other changes. IMPRESSIO N: 1. Cardiomegaly with perihilar and basilar opacities mildly improved compared to prior study. at 1048 Reported and signed by: Alf Franco M.D. CC: Shahnaz Miller MD; Kaia Nolan MD; Estee Jordan Technologist: RT Boyd(R) Trnscrd Date/Time/By: 06/27/2023 (1048) : By: [email or web address] Orig Print D/T: S: 06/27/2023 (4418) PAGE 1 Signed Report- XR CHEST 1 [id number] 10:48:00 [facility] [place] : 1945 Sex: F FAX: Shahnaz Miller MD [phone] [place]: St: DIS FAX: Kaia Nolan MD FAX: Adilene Dean [phone] Name: BREA GILES [facility] : 1945 Age/S: 77/F [address] [place] [address] Unit #: [id number] Loc: G.33[address] [place] [address] Phys: Estee Jordan Acct: [id number] Dis Date: 20230701 Status: DIS IN PHONE #: [phone] Exam Date: 06/27/2023 1032 FAX #: [phone] Reason: Cardiac Surgery Post Op EXAMS: CPT CODE: [id number] XR CHEST 1 V 19065 HISTORY: Cardiac surgery, postop Location: C3 COMPARISON:06/26/2023 FINDINGS: There is cardiomegaly with vascular congestion. 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 Right IJ catheter is again noted. Perihilar and basilar opacities are present slightly improved compared to prior study. No pneumothorax. No other changes. IMPRESSION: 1. Cardiomegaly with perihilar and basilar opacities mildly improved compared to prior study. at 1048 Reported and signed by: Alf Franco M.D. CC: Shahnaz Miller MD; Kaia Nolan MD; Estee Jordan Technologist: RT Boyd(Maddison) Trnscnikita Date/Time/By: 06/27/2023 (1636) : By: [email or web address] Orig Print D/T: S: 06/27/2023 (3830) PAGE 1 Signed Report- DUP VEIN [id number] 08:54:00 [facility] JAYME LOREDOName: BREA ZULUAGA : 1945 Sex: F Name: BREA RODRIGUEZ [facility] Jayme [place]ored[place] : 1945 Age/S: 77 / F [address] [place] [address] Unit #: [id number] Loc: [place] [address] Phys: Lucio Liang MD Acct: [id number] Dis Date: Status: ADM IN PHONE #: [phone] Exam Date: 06/27/2023 0704 FAX #: [phone] Reason: R/O DVT EXAMS: CPT CODE: [id number] DUP VEIN BRADLEY [address] EXAM: - DUP VEIN BRADLEY HISTORY: R/O DVT LOCATION CODE:H106 COMPARISON: None TECHNIQUE: Hendrix-scale B-mode imaging, color doppler interrogation and spectral doppler waveform analysis of the bilateral common femoral, profunda femoral, superficial femoral and popliteal veins was performed. The bilateral posterior tibial, anterior tibial and peroneal veins wereinterrogated as well. FINDINGS: There is compressibility and spontaneous phasic flow in all of the imaged veins. IMPRESSION: No Doppler evidence of bilateral lower extremity DVT. at 0854 Reported and signed by: Sole Brown M.D. CC: Lucio Liang MD; Shahnaz Miller MD; Kaia Nolan MD Technologist: Reuben Trnkyb Date/Time: 06/27/2023 (0854) [email or web address] Orig Print D/T: S: 06/27/2023 (0857) Probe: PAGE 1 Signed Report- DUP VEIN BRADLEY 2023-06-27 08:54:00 [facility] JAYME LOREDOName: BREA GILES : 1945 Sex: F Name: BREA GILES [facility] Jayme Loredo : 1945 Age/S: 77 / F [address] [place] [address] Unit #: [id number] Loc: [place] [address] Phys: Sherrill Liang MD Acct: [id number] Dis Date: 20230701 Status: DIS IN PHONE #: [phone] Exam Date: 06/27/2023 0704 FAX #: [phone] Reason: R/O DVT EXAMS: CPT CODE: [id number] DUP [place] [address] EXAM: - DUP VEIN BRADLEY HISTORY: R/O DVT LOCATION CODE:H106 COMPARISON: None TECHNIQUE: Hendrix-scale B-mode imaging, color doppler interrogation and spectral doppler waveform analysis of the bilateral common femoral, profunda femoral, superficial femoral and popliteal veins was performed. The bilateral posterior tibial, anterior tibial and peroneal veins were interrogated as well. FINDINGS: There is compressibility and spontaneous phasic flow in allof the imaged veins. IMPRESSION: No Doppler evidence of bilateral lower extremity DVT. at 0854 Reported and signed by: Sole Brown M.D. CC: Sherrill Liang MD; Shahnaz Miller MD; Kaia Nolan MD Technologist: Karen Zarate Trnkyb Date/Time: 06/27/2023 (0854) [email or web address] Orig Print D/T: S: 06/27/2023 (0888) Probe:PAGE 1 Signed ReportPO ARTERIAL BLOOD [id number] 08:52:00 Test Item Value Reference Range Interpretation Comments POC ARTERIAL BLOOD GAS PH (test 7.530 7.35-7.45 HH code = POCPHA) POC ARTERIAL BLOOD GAS PCO2 35.6 mmHg 35.0-45 N (test code = BTLKRP8P) POC TCO2 ARTERIAL (test code = 30.9 POCTCO2) POC ARTERIAL BLOOD GAS PO2 (test 81.8 mmHg 80-100.0 N code = WROWO0X) POC HCO3 ARTERIAL (test code = 29.8 MMOL/L 22.0-26.0 HH KOCEPL0C) POC BASE EXCESS (test code = 7.0 MMOL/L -4.0-4.0 H POCBEA) POC O2 SATURATION (test code = 97.3 % 90-100 N POCO2S) FIO2 (test code = FIO2A) 28.0 % PaO2/FiO2 (test code = YEC2ZDT2) 292.10 mm/Hg ABG DELIVERY (test code = PHILLIP) HFNC ABG TEMPERATURE (test code = 98 F TEMPA) ABG SITE (test code = SITEA) R Radial RAKESH'S TEST (test code = Positive ALLENS) BASIC METABOLIC [id number] 08:52:00 Test Item Value Reference Range Interpretation [...] = POCGLU) 153 MG/DL 70-110 H HEMOGLOBIN [id number] 08:52:00 Test Item Value Reference Range Interpretation Comments HEMOGLOBIN ABG (test code = HGB/ABG) 8.5 G/DL 11.0-15.0 L [id number] 08:52:00 Test Item Value Reference Range Interpretation Comments HEMATOCRIT (test code = HCT/ABG) 25 % 33.0-45.0 L POC LACTIC [id number] 08:52:00 Test Item Value Reference Range Interpretation Comments POC LACTIC ACID (test code = 0.6 mmol/l 0.9-1.7 L POCLAC) CBC W/AUTO [id number] 02:58:00 Test Item Value Reference Range Interpretation [...] (test code NO = MDIFF) BASIC METABOLIC [id number] 02:54:00 Test Item Value Reference Range Interpretation [...] the recommended for roxana for GFRby the [facility] Kidney Foundati on for Adults.The GFR will not calculate if th e sex is unknown or if thepatient's ag e is <18 years. CREATININE (test 1.6 mg/dL 0.6-1.3 H code = CREAT) CALCIUM (test code = 8.2 mg/dL 8.0-10.5 N CA) [id number] 02:54:00 Test Item Value Reference Range Interpretation Comments MAGNESIUM (test code = 2.27 mg/dL 1.6-2.6 N NOTE: NEW NORMAL MAG) RANGE BASIC METABOLIC [id number] 19:57:00 Test Item Value Reference Range Interpretation [...] the recommended for roxana for GFRby the [facility] Kidney Foundati on for Adults.The GFR will not calculate if th e sex is unknown or if thepatient's ag e is <18 years. 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 Kidney Foundati on for Adults.The GFR will not calculate if th e sex is unknown or if thepatient's ag e is <18 years. 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 [facility] GLUCOSE [id number] 08:34:00 Test Item Value Reference Range Interpretation Comments GLUCOSE BEDSIDE (test 94 MG/DL 70-110 N [facility] med by certified code = GLUBED) 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 [facility] - XR CHEST 1 [id number] 08:08:00 [facility] 1945 Sex: F FAX: Shahnaz Miller MD [phone] [place]: St: ADM FAX: Kaia Nolan MD FAX: Will Dean [facility] [phone] Name: BREA ZULUAGA [facility] : 1945 Age/S: 77/F [address] [place] [address] Unit #: [id number] Loc: G.2202 [place] [address] Phys: Estee Jordan Acct: [id number] DisDate: Status: ADM IN PHONE #: [phone] Exam Date: 06/26/2023802 FAX #: [phone] Reason: Cardiac Surgery Post Op EXAMS: CPT CODE: [id number] XR CHEST 1 V 56884 EXAM: - XR CHEST 1 V Location code:C3 HISTORY: Cardiac Surgery Post Op COMPARISON: 06/25/2023 IMPRESSION: Single AP view of the chest is provided. Support lines and tubes are unchanged. Bilateral pulmonary opacities are similar. There is no pneumothorax. No additional interval change. at 0808 Reported and signed by: Franky Mckeon M.D. CC: Shahnaz Miller MD; Kaia Nolan MD; Estee Jordan Technologist: YEISON Cochran) Trnscrd Date/Time/By: 06/26/2023 (807) : By: [email or web address] Orig Print D/T: S: 06/26/2023 (810) PAGE 1 Signed Report - XR CHEST 1 [id number] 08:08:00 [facility]BERT[facility] JEFFRIESBREA DOWELL : 1945 Sex: F FAX: Shahnaz Miller MD [phone] [place]: St: DIS FAX: Kaia Nolan MD FAX: Estee Dean Phy [phone] Name: BREA GILES [facility] : 1945 Age/S: 77/F [address] [place] [address] Unit #: [id number] Loc: G.3344 [place] [address] Phys: Estee Jordan Acct: [id number] Date: 20230701 Status: DIS IN PHONE #: [phone] Exam Date: 06/26/2023802 FAX #: [phone] Reason: Cardiac Surgery Post Op EXAMS: CPT CODE: [id number] XR CHEST 1 V 61573 EXAM: - XR CHEST 1V Location code:C3 HISTORY: Cardiac Surgery Post Op COMPARISON: 06/25/2023 IMPRESSION: Single AP view of the chest is provided. Support lines and tubes are unchanged. Bilateral pulmonary opacities are similar. There is no pneumothorax. No additional interval change. 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 CREATININE (test 2.1 mg/dL 0.6-1.3 H code = CREAT) CALCIUM (test code = 8.5 mg/dL 8.0-10.5 N CA) COMMENTS: POD #1HEPATIC FUNCTION [id number] 03:02:00 Test Item Value Reference Range Interpretation [...] TOTAL (test code = ALKP) COMMENTS: POD #[id number] 03:02:00 Test Item Value Reference Range Interpretation Comments MAGNESIUM (test code = 2.47 mg/dL 1.6-2.6 N NOTE: NEW NORMAL MAG) RANGE COMMENTS: POD #1GLUCOSE [id number] 02:45:00 Test Item Value Reference Range Interpretation Comments GLUCOSE BEDSIDE (test 121 MG/DL 70-110 H Perfor med by certified code = GLUBED) 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 [facility] CBC W/AUTO [id number] 02:45:00 Test Item Value Reference Range Interpretation [...] REQUIRED (test NO code = MDIFF) GLUCOSE [id number] 01:14:00 Test Item Value Reference Range Interpretation Comments GLUCOSE BEDSIDE (test 119 MG/DL 70-110 H Perfor med by certified code = GLUBED) 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 [facility] GLUCOSE [id number] 23:45:00 Test Item Value Reference Range Interpretation Comments GLUCOSE BEDSIDE (test 123 MG/DL 70-110 H Perfor med by certified code = GLUBED) 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 [facility] BASIC METABOLIC [id number] 22:35:00 Test Item Value Reference Range Interpretation [...] code = 8.7 mg/dL 8.0-10.5 N CA) [id number] 22:35:00 Test Item Value Reference Range Interpretation Comments MAGNESIUM (test code = 2.54 mg/dL 1.6-2.6 N NOTE: NEW NORMAL MAG) RANGE GLUCOSE [id number] 22:23:00 Test Item Value Reference Range Interpretation Comments GLUCOSE BEDSIDE (test 144 MG/DL 70-110 H [facility] med by certified code = GLUBED) 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 [facility] CBC W/AUTO [id number] 22:22:00 Test Item Value Reference Range Interpretation [...] REQUIRED (test NO code = MDIFF) GLUCOSE [id number] 21:23:00 Test Item Value Reference Range Interpretation Comments GLUCOSE BEDSIDE (test 128 MG/DL 70-110 H Perfor med by certified code = GLUBED) 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 [facility] GLUCOSE [id number] 20:09:00 Test Item Value Reference Range Interpretation Comments GLUCOSE BEDSIDE (test 132 MG/DL 70-110 H Perfor med by certified code = GLUBED) 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 [facility] GLUCOSE [id number] 16:51:00 Test Item Value Reference Range Interpretation Comments GLUCOSE BEDSIDE (test 151 MG/DL 70-110 H Perfor med by certified code = GLUBED) 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 [facility] GLUCOSE [id number] 14:27:00 Test Item Value Reference Range Interpretation Comments GLUCOSE BEDSIDE (test 159 MG/DL 70-110 H Perfor med by certified code = GLUBED) 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 [facility] CBC W/AUTO [id number] 13:27:00 Test Item Value Reference Range Interpretation [...] 3/uL 0.0-0.1 N code = NRBC#) GLUCOSE [id number] 11:51:00 Test Item Value Reference Range Interpretation Comments GLUCOSE BEDSIDE (test 171 MG/DL 70-110 H Perfor med by certified code = GLUBED) 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 [facility] BASIC METABOLIC [id number] 11:32:00 Test Item Value Reference Range Interpretation [...] 8.0-10.5 N CA) - XR CHEST 1 [id number] 08:51:00 [facility] 1945 Sex: F FAX: Shahnaz Miller MD [phone] [place]: St: ADM FAX: Kaia Nolan MD FAX: Ofelia Dean Phy [phone] Name: BREA ZULUAGA [facility] : 1945 Age/S: 77/F [address] [place] [address] Unit #: [id number] Loc: G.[address] [place] [address] Phys: Estee Jordan Physic Acct: [id number] Dis Date: Status: ADM IN PHONE #: [phone] Exam Date: 06/25/2023 0850 FAX #: [phone] Reason: Cardiac Surgery Post Op EXAMS: CPT CODE: [id number] XR CHEST 1 V [id number] EXAM: - XR CHEST 1 V Location code:C3 HISTORY: Cardiac Surgery Post Op COMPARISON: 06/24/2023 IMPRESSION: Single AP view of the chest is provided. Support lines and tubes are unchanged. Bilateral pulmonary opacities are similar. There is no pneumothorax. No additional interval change. at 0851 Reported and signed by: Franky Mckeon M.D. CC: Shahnaz Miller MD; Kaia Nolan MD; Estee Jordan Technologist: RT Kenia Cochran (R) Date/Time/By: 06/25/2023 (850) : By: [email or web address] Orig Print D/T: S: 06/25/2023 (7729) PAGE 1 Signed Report - XR CHEST 1 [id number] 08:51:00 [facility]BERT[facility] JEFFRIESBREA DOWELL : 1945 Sex: F FAX: Shahnaz Miller MD [phone] [place]: St: DIS FAX: Kaia Nolan MD FAX: Adilene Dean Phy [phone] Name: BREA GILES [facility] : 1945 Age/S: 77/F [address] [place], [place] [address] Unit #: [id number] Loc: G.3344 [place] [address] Phys: Estee Jordan Acct: [id number] Dis Date: [id number] Status: DIS IN PHONE #: [phone] Exam Date: 06/25/2023 0850 FAX #: [phone] Reason: Cardiac Surgery Post Op EXAMS: CPT CODE: [id number] XR CHEST 1 V 06909 EXAM: - XR CHEST 1 V Location code:C3 HISTORY: Cardiac Surgery Post Op COMPARISON: 06/24/2023 IMPRESSION: Single AP view ofthe chest is provided. Support lines and tubes are unchanged. Bilateral pulmonary opacities are similar. There is no pneumothorax. No additional interval change. at 0851 Reported and signed by: Franky Mckeon M.D. CC:Shahnaz Miller MD; Kaia Nolan MD; Estee Jordan Technologist: RT Sammie(Maddison) Trnscrd Date/Time/By: 06/25/2023 (0851) : By: [email or web address] Orig Print D/T: S: 06/25/2023 (0899) PAGE 1 Signed ReportGLUCOSE [id number] 08:08:00 Test Item Value Reference Range Interpretation Comments GLUCOSE BEDSIDE (test 153 MG/DL 70-110 H Perfor med by certified code = GLUBED) 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 [facility] GLUCOSE [id number] 05:35:00 Test Item Value Reference Range Interpretation Comments GLUCOSE BEDSIDE (test 148 MG/DL 70-110 H Perfor med by certified code = GLUBED) 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 [facility] CBC W/AUTO [id number] 03:45:00 Test Item Value Reference Range Interpretation [...] REQUIRED (test NO code = MDIFF) GLUCOSE [id number] 03:41:00 Test Item Value Reference Range Interpretation Comments GLUCOSE BEDSIDE (test 116 MG/DL 70-110 H Perfor med by certified code = GLUBED) 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 [facility] BASIC METABOLIC [id number] 03:21:00 Test Item Value Reference Range Interpretation [...] 8.0-10.5 N CA) COMMENTS: POD #1HEPATIC FUNCTION [id number] 03:21:00 Test Item Value Reference Range Interpretation [...] TOTAL (test code = ALKP) COMMENTS: POD #[id number] 03:21:00 Test Item Value Reference Range Interpretation Comments MAGNESIUM (test code = 2.62 mg/dL 1.6-2.6 H NOTE: NEW NORMAL MAG) RANGE COMMENTS: POD #1GLUCOSE [id number] 02:35:00 Test Item Value Reference Range Interpretation Comments GLUCOSE BEDSIDE (test 125 MG/DL 70-110 H Perfor med by certified code = GLUBED) 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 [facility] GLUCOSE [id number] 00:37:00 Test Item Value Reference Range Interpretation Comments GLUCOSE BEDSIDE (test 124 MG/DL 70-110 H Perfor med by certified code = GLUBED) 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 [facility] GLUCOSE [id number] 23:20:00 Test Item Value Reference Range Interpretation Comments GLUCOSE BEDSIDE (test 161 MG/DL 70-110 H Perfor med by certified code = GLUBED) 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 [facility] BASIC METABOLIC [id number] 23:09:00 Test Item Value Reference Range Interpretation [...] race indifferent and is the recommended for [facility] for GFRby the [facility] for Adults.The GFR will not calculate if th e sex is unknown or if thepatient's ag e is <18 years. CREATININE (test 2.1 mg/dL 0.6-1.3 H code = CREAT) CALCIUM (test code = 8.9 mg/dL 8.0-10.5 N CA) [id number] 23:09:00 Test Item Value Reference Range Interpretation Comments MAGNESIUM (test code = 2.48 mg/dL 1.6-2.6 N NOTE: NEW NORMAL MAG) RANGE GLUCOSE [id number] 22:05:00 Test Item Value Reference Range Interpretation Comments GLUCOSE BEDSIDE (test 228 MG/DL 70-110 H Perfor med by certified code = GLUBED) 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 [facility] BASIC METABOLIC [id number] 20:53:00 Test Item Value Reference Range Interpretation [...] the recommended for roxana for GFRby the [facility] Kidney Foundati on for Adults.The GFR will not calculate if th e sex is unknown or if thepatient's ag e is <18 years. CREATININE (test 2.1 mg/dL 0.6-1.3 H code = CREAT) CALCIUM (test code = 8.9 mg/dL 8.0-10.5 N CA) [id number] 20:53:00 Test Item Value Reference Range Interpretation Comments MAGNESIUM (test code = 2.67 mg/dL 1.6-2.6 H NOTE: NEW NORMAL MAG) RANGE CBC W/AUTO [id number] 20:44:00 Test Item Value Reference Range Interpretation [...] REQUIRED (test NO code = MDIFF) GLUCOSE [id number] 19:42:00 Test Item Value Reference Range Interpretation Comments GLUCOSE BEDSIDE (test 127 MG/DL 70-110 H Perfor med by certified code = GLUBED) 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 [facility] GLUCOSE [id number] 18:21:00 Test Item Value Reference Range Interpretation Comments GLUCOSE BEDSIDE (test 70 MG/DL 70-110 N Perfor med by certified code = GLUBED) 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 [facility] BASIC METABOLIC [id number] 15:05:00 Test Item Value Reference Range Interpretation [...] the recommended for roxana for GFRby the [facility] Kidney Foundati on for Adults.The GFR will not calculate if th e sex is unknown or if thepatient's ag e is <18 years. CREATININE (test 1.6 mg/dL 0.6-1.3 H code = CREAT) CALCIUM (test code = 8.8 mg/dL 8.0-10.5 N CA) CBC W/AUTO [id number] 14:56:00 Test Item Value Reference Range Interpretation [...] (test NO code = MDIFF) BASIC METABOLIC [id number] 12:15:00 Test Item Value Reference Range Interpretation [...] 8.7 mg/dL 8.0-10.5 N CA) CBC W/AUTO [id number] 11:50:00 Test Item Value Reference Range Interpretation [...] DIFF REQUIRED (test NO code = MDIFF) - XR CHEST 1 [id number] 07:53:00 [facility] : 1945 Sex: F FAX: Shahnaz Miller MD [phone] [place]: St: [facility] FAX: Kaia Nolan MD FAX: Ofelia Dean Phy [phone] Name: BREA ZULUAGA [facility] : 1945 Age/S: 77/F [address] [place], [place] [address] Unit #: [id number] Loc: G.[address] [place] [address] Phys: Estee Jordan Acct: [id number] Dis Date: Status: ADM IN PHONE #: [phone] Exam Date: 06/24/2023458 FAX #: [phone] Reason: Cardiac Surgery Post Op EXAMS: CPT CODE: [id number] XR CHEST 1 V 37896 H 20 TIME OF STUDY: 06/24/2023 5:00AM [...] The median sternotomy wires are in the expected configuration. IMPRESSION: 1. Expected post-CABG changes with interval removal of ET tube and enteric tube. at 0753 Reported and signed by:Torey Pizano M.D. CC: Shahnaz Miller MD; Kaia Nolan MD; Estee Jordan Technologist: Saritha Hart, RT(R) Trnscrd Date/Time/By: 06/24/2023 (0753) : By: [email or web address] Orig Print D/T: S: 06/24/2023 (0756) PAGE 1 Signed Report- XR CHEST 1 [id number] 07:53:00 [facility] : 1945 Sex: F FAX: Shahnaz Miller MD [phone] [place]: St: DIS FAX: Kaia Nolan MD FAX: Adilene Dean Phy [phone] Name: JORGE ALBERTO CEJABREA Venkat [facility] : 1945 Age/S: 77/F [address] [place] [address] Unit #: [id number] Loc: G.3344 [place] [address] Phys: Estee Jordan Acct: [id number] Dis Date: [id number] Status: DIS IN PHONE #: [phone] Exam Date: 06/24/2023 0459 FAX #: [phone] Reason: Cardiac Surgery Post Op EXAMS: CPT CODE: [id number] XR CHEST 1 V 14902 H 20 TIME OF STUDY: 06/24/2023 5:00 AM REASON FOR EXAM: Cardiac Surgery Post Op COMPARISON: 1 day prior FINDINGS: AP view ofthe chest was obtained. Support devices: ET tube and enteric tube have been removed. Stable remaining support devices. Lungs: Normal lung volume. No mass, or consolidation. Mild central vascular conges tion. Pleura: No pleural effusion or pneumothorax. Heart and Mediastinum: Normal cardiomediastinal silhouette and great vessels. 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 The median sternotomy wires are inthe expected configuration. IMPRESSION: 1. Expected post-CABG changes with interval removal of ET tube and enteric tube. at 0753 Reported and signed by: Torey Pizano M.D. CC: Shahnaz Miller MD; Kaia Nolan MD; Estee Jordan Technologist: Saritha Hart RT(R) Trnscrd Date/Time/By: 06/24/2023 (0753) : By: [email or web address] Orig Print D/T: S: 06/24/2023 (0756) PAGE 1 [facility] [id number] 06:41:00 Test Item Value Reference Range Interpretation Comments POC ARTERIAL BLOOD GAS PH (test 7.370 7.35-7.45 N code = POCPHA) POC ARTERIAL BLOOD GAS PCO2 28.8 mmHg 35.0-45 LL (test code = [id number]) POC TCO2 ARTERIAL (test code = 17.7 POCTCO2) POC ARTERIAL BLOOD GAS PO2 (test 101.9 mmHg 80-100.0 H code = KAUJF4C) POC HCO3 ARTERIAL (test code = 16.8 MMOL/L 22.0-26.0 LL [id number]) POC BASE EXCESS (test code = -8.6 MMOL/L -4.0-4.0 L POCBEA) POC O2 SATURATION (test code = 98.0 % 90-100 N POCO2S) FIO2 (test code = FIO2A) 40 % PaO2/FiO2 (test code = [id number]) 254.75 mm/Hg ABG DELIVERY (test code = PHILLIP) BiPAP ABG PEEP (test code = PEEPA) 5 cmH2O ABG PRESSURE SUPPORT (test code 12 cmH2O = PSABG) ABG TEMPERATURE (test code = 97.5 F TEMPA) ABG SITE (test code = SITEA) Art Line BASIC METABOLIC [id number] 06:41:00 Test Item Value Reference Range Interpretation [...] = POCGLU) 128 MG/DL 70-110 H HEMOGLOBIN [id number] 06:41:00 Test Item Value Reference Range Interpretation Comments HEMOGLOBIN ABG (test code = HGB/ABG) 7.8 G/DL 11.0-15.0 L [id number] 06:41:00 Test Item Value Reference Range Interpretation Comments HEMATOCRIT (test code = HCT/ABG) 23 % 33.0-45.0 L POC LACTIC [id number] 06:41:00 Test Item Value Reference Range Interpretation Comments POC LACTIC ACID (test code = 0.7 mmol/l 0.9-1.7 L POCLAC) GLUCOSE [id number] 05:13:00 Test Item Value Reference Range Interpretation Comments GLUCOSE BEDSIDE (test 155 MG/DL 70-110 H Perfor med by certified code = GLUBED) 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 [facility] GLUCOSE [id number] 03:38:00 Test Item Value Reference Range Interpretation Comments GLUCOSE BEDSIDE (test 105 MG/DL 70-110 N Perfor med by certified code = GLUBED) 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 [facility] BASIC METABOLIC [id number] 03:11:00 Test Item Value Reference Range Interpretation [...] 8.0-10.5 N CA) COMMENTS: POD #1HEPATIC FUNCTION [id number] 03:11:00 Test Item Value Reference Range Interpretation [...] TOTAL (test code = ALKP) COMMENTS: POD #[id number] 03:11:00 Test Item Value Reference Range Interpretation Comments MAGNESIUM (test code = 2.70 mg/dL 1.6-2.6 H NOTE: NEW NORMAL MAG) RANGE COMMENTS: POD #1PROTHROMBIN [id number] 03:02:00 Test Item Value Reference Range Interpretation Comments PROTHROMBIN TIME 14.3 SECONDS 9.3-12.9 H PATIENT (test code = PTP) INTERNATIONAL NORMAL 1.3 0.8-1.2 H TARGE T INR BY RATIO (test code = INDICATIO N Indication INR) INR1. Prophylax is of venous thrombos is 2.0 - 3.0 (orthoped ic surgery), Proph ylaxis of venous throm bosis (other than hig h-risk surgery), Treat ment of Deep Vein Thrombosis/Pulm onary Embolism, Preve ntion of systemic emb olism - Tissue heart va lves, Acute Myocardia l Infarction (to prevent systemic embol ism), Valvular heart disease, Atrial Fibrillation, Bileaflet mecha nical valve in aortic position.2. Mec hanical prosthetic valv es (high risk), 2. 5 - 3.5 Presence of Lup us Anticoagulant o r Antiphospholipi d Antibodies, Pre vention of systemic emb olism - Acute Myocardia l Infarction (to prevent recurrent infar ct). THROMBOPLASTIN TIME [id number] 03:02:00 Test Item Value Reference Range Interpretation Comments THROMBOPLASTIN TIME 21.6 Seconds 25.0-39.5 L Therape utic Range: PARTIAL (test code = 50.4 - 88.3 Seconds PTT) Effective 01/16/2019 CBC W/AUTO [id number] 03:01:00 Test Item Value Reference Range Interpretation [...] REQUIRED (test code YES = MDIFF) WBC [id number] 03:01:00 Test Item Value Reference Range Interpretation [...] code = 2+ MACR) POC ARTERIAL BLOOD [id number] 02:33:00 Test Item Value Reference Range Interpretation Comments POC ARTERIAL BLOOD GAS PH (test 7.423 7.35-7.45 N code = POCPHA) POC ARTERIAL BLOOD GAS PCO2 32.8 mmHg 35.0-45 L (test code = [id number]) POC TCO2 ARTERIAL (test code = 22.5 POCTCO2) POC ARTERIAL BLOOD GAS PO2 (test 150.1 mmHg 80-100.0 H code = LCSKS4O) POC HCO3 ARTERIAL (test code = 21.5 MMOL/L 22.0-26.0 L [id number]) POC BASE EXCESS (test code = -3.0 MMOL/L -4.0-4.0 N POCBEA) POC O2 SATURATION (test code = 99.4 % 90-100 N POCO2S) FIO2 (test code = FIO2A) 50 % PaO2/FiO2 (test code = [id number]) 300.20 mm/Hg ABG DELIVERY (test code = PHILLIP) Adult Vent ABG VENT MODE (test code = AC MODEA) ABG VENT RESP RATE (test code = 22 /MIN RRA) ABG TIDAL VOLUME (test code = 400 ml TVA) ABG PEEP (test code = PEEPA) 5 cmH2O ABG TEMPERATURE (test code = 97.7 F TEMPA) ABG SITE (test code = SITEA) Art Line BASIC METABOLIC [id number] 02:33:00 Test Item Value Reference Range Interpretation [...] = POCGLU) 140 MG/DL 70-110 H HEMOGLOBIN [id number] 02:33:00 Test Item Value Reference Range Interpretation Comments HEMOGLOBIN ABG (test code = 10.2 G/DL 11.0-15.0 L HGB/ABG) [id number] 02:33:00 Test Item Value Reference Range Interpretation Comments HEMATOCRIT (test code = HCT/ABG) 30 % 33.0-45.0 L POC LACTIC [id number] 02:33:00 Test Item Value Reference Range Interpretation Comments POC LACTIC ACID (test code = 1.2 mmol/l 0.9-1.7 N POCLAC) POC ARTERIAL BLOOD [id number] 01:02:00 Test Item Value Reference Range Interpretation Comments POC ARTERIAL BLOOD GAS PH (test 7.341 7.35-7.45 L code = POCPHA) POC ARTERIAL BLOOD GAS PCO2 42.1 mmHg 35.0-45 N (test code = [id number]) POC TCO2 ARTERIAL (test code = 24.2 POCTCO2) POC ARTERIAL BLOOD GAS PO2 (test 144.0 mmHg 80-100.0 H code = JHNKS0G) POC HCO3 ARTERIAL (test code = 22.9 MMOL/L 22.0-26.0 N UYNXSF1A) POC BASE EXCESS (test code = -3.0 MMOL/L -4.0-4.0 N POCBEA) POC O2 SATURATION (test code = 99.1 % 90-100 N POCO2S) FIO2 (test code = FIO2A) 50 % PaO2/FiO2 (test code = [id number]) 288.00 mm/Hg ABG DELIVERY (test code = PHILLIP) CPAP ABG PEEP (test code = PEEPA) 12 cmH2O ABG PRESSURE SUPPORT (test code 5 cmH2O = PSABG) ABG TEMPERATURE (test code = 97.7 F TEMPA) ABG SITE (test code = SITEA) Art Line BASIC METABOLIC [id number] 01:02:00 Test Item Value Reference Range Interpretation [...] = POCGLU) 149 MG/DL 70-110 H HEMOGLOBIN [id number] 01:02:00 Test Item Value Reference Range Interpretation Comments HEMOGLOBIN ABG (test code = 11.2 G/DL 11.0-15.0 N HGB/ABG) [id number] 01:02:00 Test Item Value Reference Range Interpretation Comments HEMATOCRIT (test code = HCT/ABG) 33 % 33.0-45.0 N POC LACTIC [id number] 01:02:00 Test Item Value Reference Range Interpretation Comments POC LACTIC ACID (test code = 2.1 mmol/l 0.9-1.7 H POCLAC) GLUCOSE [id number] 00:16:00 Test Item Value Reference Range Interpretation Comments GLUCOSE BEDSIDE (test 110 MG/DL 70-110 N Perfor med by certified code = GLUBED) 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 [facility] GLUCOSE [id number] 23:34:00 Test Item Value Reference Range Interpretation Comments GLUCOSE BEDSIDE (test 137 MG/DL 70-110 H Perfor med by certified code = GLUBED) 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 [facility] POC ARTERIAL BLOOD [id number] 22:55:00 Test Item Value Reference Range Interpretation Comments POC ARTERIAL BLOOD GAS PH (test 7.416 7.35-7.45 N code = POCPHA) POC ARTERIAL BLOOD GAS PCO2 34.0 mmHg 35.0-45 L (test code = AQNLOM1K) POC TCO2 ARTERIAL (test code = 23.1 POCTCO2) POC ARTERIAL BLOOD GAS PO2 (test 89.0 mmHg 80-100.0 N code = KHSNE9T) POC HCO3 ARTERIAL (test code = 22.0 MMOL/L 22.0-26.0 N YQEUQU0S) POC BASE EXCESS (test code = -2.7 MMOL/L -4.0-4.0 N POCBEA) POC O2 SATURATION (test code = 97.3 % 90-100 N POCO2S) FIO2 (test code = FIO2A) 40 % PaO2/FiO2 (test code = ZHP2IYP9) 222.50 mm/Hg ABG DELIVERY (test code = PHILLIP) Adult Vent ABG VENT MODE (test code = AC MODEA) ABG VENT RESP RATE (test code = 22 /MIN RRA) ABG TIDAL VOLUME (test code = 400 ml TVA) ABG PEEP (test code = PEEPA) 5 cmH2O ABG TEMPERATURE (test code = 97.5 F TEMPA) ABG SITE (test code = SITEA) Art Line BASIC METABOLIC [id number] 22:55:00 Test Item Value Reference Range Interpretation [...] = POCGLU) 163 MG/DL 70-110 H HEMOGLOBIN [id number] 22:55:00 Test Item Value Reference Range Interpretation Comments HEMOGLOBIN ABG (test code = 11.6 G/DL 11.0-15.0 N HGB/ABG) [id number] 22:55:00 Test Item Value Reference Range Interpretation Comments HEMATOCRIT (test code = HCT/ABG) 34 % 33.0-45.0 N POC LACTIC [id number] 22:55:00 Test Item Value Reference Range Interpretation Comments POC LACTIC ACID (test code = 2.9 mmol/l 0.9-1.7 H POCLAC) CBC W/AUTO [id number] 21:54:00 Test Item Value Reference Range Interpretation [...] N code = NRBC#) COMMENTS: On arrivalPROTHROMBIN [id number] 21:53:00 Test Item Value Reference Range Interpretation [...] recurrent infar ct). COMMENTS: On arrivalTHROMBOPLASTIN TIME [id number] 21:53:00 Test Item Value Reference Range Interpretation Comments THROMBOPLASTIN TIME 31.6 Seconds 25.0-39.5 N Therape utic Range: PARTIAL (test code = 50.4 - 88.3 Seconds PTT) Effective 01/16/2019 COMMENTS: On arrivalBASIC METABOLIC [id number] 21:49:00 Test Item Value Reference Range Interpretation [...] 8.0-10.5 N CA) COMMENTS: On arrivalComment: On [id number] 21:49:00 Test Item Value Reference Range Interpretation Comments MAGNESIUM (test code = 2.93 mg/dL 1.6-2.6 H NOTE: NEW NORMAL MAG) RANGE COMMENTS: On arrivalComment: On arrival- XR CHEST 1 [id number] 21:48:00 [facility] : 1945 Sex: F FAX: Shahnaz Miller MD [phone] [place]: St: ADM FAX: Kaia Nolan MD FAX: Adilene Dean [facility] [phone] Name: BREA ZULUAGA [facility] [place] : 1945 Age/S: 77/F [address] [place] [address] Unit #: [id number] Loc: [id number] [place] [address] Phys: Estee Jordan Acct: [id number] Dis Date: Status: ADM IN PHONE #: [phone] Exam Date: 06/23/20232110 FAX #: [phone] Reason: Cardiac Surgery Post Op EXAMS: CPT CODE: [id number] XR CHEST 1 V 72662 EXAM: - XR CHEST 1 V HISTORY: [...] be repositioned back by 2 cm. Leftward cardiacconsolidation mild central pulmonary vascularity with tiny left pleural effusion. Dictation/locationcode: H-100 at 2148 Reported and signed by: Yang Rouse M.D. CC: Shahnaz Miller MD; Kaia Nolan MD; Estee Jordan Technologist: RT Monika(Maddison) Trnscrd Date/Time/By: 06/23/2023 (2147) : By: [email or web address] Orig Print D/T: S: 06/23/2023 (2151) PAGE 1 Signed Report- XR CHEST 1 [id number] 21:48:00 [facility] 1945 Sex: F FAX: Shahnaz Miller MD [phone] [place]: St: DIS FAX: Kaia Nolan MD FAX: Adilene Dean y [phone] Name: TAVIA GILESJEFF Robledo [facility] : 1945 Age/S: 77/F [address] [place] [address] Unit #: [id number] Loc: G.3344 [place] [address] Phys: Estee Jordan Acct: [id number] Dis Date: [id number] Status: DIS IN PHONE #: [phone] Exam Date: 06/23/20232110 FAX #: [phone]: Cardiac Surgery Post Op EXAMS: CPT CODE: [id number] XR CHEST 1 V 12185 EXAM: - XR CHEST 1 V HISTORY: [...] is noted. Clinical correlation. Left retrocardiac consolidation withmild central pulmonary vascularity. Tiny left pleural effusion. No underlying pneumothorax. IMPRESSION: Endotracheal tube is less than 1 cm above the martina and may be repositioned back by 2 cm. Leftward cardiac consolidation mild central pulmonary vascularity with tiny left pleural effusion. Dictation/location code: H-100 at 2147 Reported and signed by: Yang Rouse M.D. CC: Shahnaz Miller MD; Kaia Nolan MD; Estee Jordan Technologist: YEISON Frank) Trnscrd Date/Time/By: 06/23/2023 (2147) : By: [email or web address] Orig Print D/T: S: 06/23/2023 (2150) PAGE 1 [facility]LO[facility] [id number] 21:25:00 Test Item Value Reference Range Interpretation Comments POC ARTERIAL BLOOD GAS PH (test 7.366 7.35-7.45 N code = POCPHA) POC ARTERIAL BLOOD GAS PCO2 45.4 mmHg 35.0-45 H (test code = JATSQI9Q) POC TCO2 ARTERIAL (test code = 27.6 POCTCO2) POC ARTERIAL BLOOD GAS PO2 (test 445.3 mmHg 80-100.0 HH code = COXUM3A) POC HCO3 ARTERIAL (test code = 26.1 MMOL/L 22.0-26.0 H [id number]) POC BASE EXCESS (test code = 0.7 MMOL/L -4.0-4.0 N POCBEA) POC O2 SATURATION (test code = 100.0 % 90-100 N POCO2S) FIO2 (test code = FIO2A) 100 % PaO2/FiO2 (test code = [id number]) 445.30 mm/Hg ABG VENT MODE (test code = AC MODEA) ABG VENT RESP RATE (test code = 22 /MIN RRA) ABG TIDAL VOLUME (test code = 400 ml TVA) ABG PEEP (test code = PEEPA) 10 cmH2O ABG TEMPERATURE (test code = 97.9 F TEMPA) ABG SITE (test code = SITEA) Art Line BASIC METABOLIC [id number] 21:25:00 Test Item Value Reference Range Interpretation [...] = POCGLU) 186 MG/DL 70-110 H HEMOGLOBIN [id number] 21:25:00 Test Item Value Reference Range Interpretation Comments HEMOGLOBIN ABG (test code = HGB/ABG) 9.4 G/DL 11.0-15.0 L [id number] 21:25:00 Test Item Value Reference Range Interpretation Comments HEMATOCRIT (test code = HCT/ABG) 28 % 33.0-45.0 L POC LACTIC [id number] 21:25:00 Test Item Value Reference Range Interpretation Comments POC LACTIC ACID (test code = 1.9 mmol/l 0.9-1.7 H POCLAC) [id number] 20:54:00 Test Item Value Reference Range Interpretation Comments ACT-ISTAT (test code 125 SEC 74-137 N Perform ed by certified = ACTI) 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 [facility] POC ARTERIAL BLOOD [id number] 20:47:00 Test Item Value Reference Range Interpretation Comments POC ARTERIAL BLOOD GAS PH (test 7.332 7.35-7.45 L code = POCPHA) POC ARTERIAL BLOOD GAS PCO2 (test 37.5 mmHg 35.0-45 N code = FAEVPS2K) POC TCO2 ARTERIAL (test code = 21.0 POCTCO2) POC ARTERIAL BLOOD GAS PO2 (test 452.9 mmHg 80-100.0 HH code = USOZH8X) POC HCO3 ARTERIAL (test code = 19.9 MMOL/L 22.0-26.0 L [id number]) POC BASE EXCESS (test code = -5.5 MMOL/L -4.0-4.0 L POCBEA) POC O2 SATURATION (test code = 100.0 % 90-100 N POCO2S) BASIC METABOLIC [id number] 20:47:00 Test Item Value Reference Range Interpretation [...] = POCGLU) 147 MG/DL 70-110 H HEMOGLOBIN [id number] 20:47:00 Test Item Value Reference Range Interpretation Comments HEMOGLOBIN ABG (test code = HGB/ABG) 9.3 G/DL 11.0-15.0 L [id number] 20:47:00 Test Item Value Reference Range Interpretation Comments HEMATOCRIT (test code = HCT/ABG) 27 % 33.0-45.0 L POC LACTIC [id number] 20:47:00 Test Item Value Reference Range Interpretation Comments POC LACTIC ACID (test code = 1.8 mmol/l 0.9-1.7 H POCLAC) [id number] 20:23:00 Test Item Value Reference Range Interpretation Comments ACT-ISTAT (test code 119 SEC 74-137 N Perform ed by certified = ACTI) 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 [facility] POC ARTERIAL BLOOD [id number] 20:22:00 Test Item Value Reference Range Interpretation Comments POC ARTERIAL BLOOD GAS PH (test 7.455 7.35-7.45 H code = POCPHA) POC ARTERIAL BLOOD GAS PCO2 (test 31.4 mmHg 35.0-45 L code = UEYVPO4N) POC TCO2 ARTERIAL (test code = 23.0 POCTCO2) POC ARTERIAL BLOOD GAS PO2 (test 509.8 mmHg 80-100.0 HH code = JACVC1F) POC HCO3 ARTERIAL (test code = 22.1 MMOL/L 22.0-26.0 N VVQUWD7T) POC BASE EXCESS (test code = -1.5 MMOL/L -4.0-4.0 N POCBEA) POC O2 SATURATION (test code = 100.0 % 90-100 N POCO2S) BASIC METABOLIC [id number] 20:22:00 Test Item Value Reference Range Interpretation [...] = POCGLU) 148 MG/DL 70-110 H HEMOGLOBIN [id number] 20:22:00 Test Item Value Reference Range Interpretation Comments HEMOGLOBIN ABG (test code = HGB/ABG) 7.8 G/DL 11.0-15.0 L [id number] 20:22:00 Test Item Value Reference Range Interpretation Comments HEMATOCRIT (test code = HCT/ABG) 23 % 33.0-45.0 L POC LACTIC [id number] 20:22:00 Test Item Value Reference Range Interpretation Comments POC LACTIC ACID (test code = 2.2 mmol/l 0.9-1.7 H POCLAC) [id number] 19:41:00 Test Item Value Reference Range Interpretation Comments ACT-ISTAT (test code 780 SEC 74-137 H Perform ed by certified = ACTI) 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 [facility] POC ARTERIAL BLOOD [id number] 19:30:00 Test Item Value Reference Range Interpretation Comments POC ARTERIAL BLOOD GAS PH (test 7.444 7.35-7.45 N code = POCPHA) POC ARTERIAL BLOOD GAS PCO2 (test 36.0 mmHg 35.0-45 N code = FELEVQ1V) POC TCO2 ARTERIAL (test code = 25.8 POCTCO2) POC ARTERIAL BLOOD GAS PO2 (test 372.6 mmHg 80-100.0 HH code = XNELH3L) POC HCO3 ARTERIAL (test code = 24.7 MMOL/L 22.0-26.0 N EPUFZZ7J) POC BASE EXCESS (test code = 0.6 MMOL/L -4.0-4.0 N POCBEA) POC O2 SATURATION (test code = 100.0 % 90-100 N POCO2S) BASIC METABOLIC [id number] 19:30:00 Test Item Value Reference Range Interpretation [...] = POCGLU) 164 MG/DL 70-110 H HEMOGLOBIN [id number] 19:30:00 Test Item Value Reference Range Interpretation Comments HEMOGLOBIN ABG (test code = HGB/ABG) 8.0 G/DL 11.0-15.0 L [id number] 19:30:00 Test Item Value Reference Range Interpretation Comments HEMATOCRIT (test code = HCT/ABG) 24 % 33.0-45.0 L POC LACTIC [id number] 19:30:00 Test Item Value Reference Range Interpretation Comments POC LACTIC ACID (test code = 0.7 mmol/l 0.9-1.7 L POCLAC) [id number] 19:17:00 Test Item Value Reference Range Interpretation Comments ACT-ISTAT (test code 793 SEC 74-137 H Perform ed by certified = ACTI) 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 [facility] POC ARTERIAL BLOOD [id number] 19:05:00 Test Item Value Reference Range Interpretation Comments POC ARTERIAL BLOOD GAS PH (test 7.465 7.35-7.45 H code = POCPHA) POC ARTERIAL BLOOD GAS PCO2 (test 32.7 mmHg 35.0-45 L code = XCNCIB4V) POC TCO2 ARTERIAL (test code = 24.5 POCTCO2) POC ARTERIAL BLOOD GAS PO2 (test 489.6 mmHg 80-100.0 HH code = EKYDH2U) POC HCO3 ARTERIAL (test code = 23.5 MMOL/L 22.0-26.0 N AJSHTF1F) POC BASE EXCESS (test code = 0.0 MMOL/L -4.0-4.0 N POCBEA) POC O2 SATURATION (test code = 100.0 % 90-100 N POCO2S) BASIC METABOLIC [id number] 19:05:00 Test Item Value Reference Range Interpretation [...] = POCGLU) 145 MG/DL 70-110 H HEMOGLOBIN [id number] 19:05:00 Test Item Value Reference Range Interpretation Comments HEMOGLOBIN ABG (test code = HGB/ABG) 8.3 G/DL 11.0-15.0 L [id number] 19:05:00 Test Item Value Reference Range Interpretation Comments HEMATOCRIT (test code = HCT/ABG) 24 % 33.0-45.0 L POC LACTIC [id number] 19:05:00 Test Item Value Reference Range Interpretation Comments POC LACTIC ACID (test code = 0.5 mmol/l 0.9-1.7 L POCLAC) [id number] 18:55:00 Test Item Value Reference Range Interpretation Comments ACT-ISTAT (test code 684 SEC 74-137 H Perform ed by certified = ACTI) 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 [facility] POC ARTERIAL BLOOD [id number] 18:49:00 Test Item Value Reference Range Interpretation Comments POC ARTERIAL BLOOD GAS PH (test 7.351 7.35-7.45 N code = POCPHA) POC ARTERIAL BLOOD GAS PCO2 (test 38.8 mmHg 35.0-45 N code = HEYSYL4J) POC TCO2 ARTERIAL (test code = 22.6 POCTCO2) POC ARTERIAL BLOOD GAS PO2 (test 395.7 mmHg 80-100.0 HH code = OZDZS3R) POC HCO3 ARTERIAL (test code = 21.5 MMOL/L 22.0-26.0 L BJGVPY1L) POC BASE EXCESS (test code = -3.8 MMOL/L -4.0-4.0 N POCBEA) POC O2 SATURATION (test code = 100.0 % 90-100 N POCO2S) BASIC METABOLIC [id number] 18:49:00 Test Item Value Reference Range Interpretation [...] = POCGLU) 140 MG/DL 70-110 H HEMOGLOBIN [id number] 18:49:00 Test Item Value Reference Range Interpretation Comments HEMOGLOBIN ABG (test code = 10.6 G/DL 11.0-15.0 L HGB/ABG) [id number] 18:49:00 Test Item Value Reference Range Interpretation Comments HEMATOCRIT (test code = HCT/ABG) 31 % 33.0-45.0 L POC LACTIC [id number] 18:49:00 Test Item Value Reference Range Interpretation Comments POC LACTIC ACID (test code = < 0.3 mmol/l 0.9-1.7 L POCLAC) [id number] 17:45:00 Test Item Value Reference Range Interpretation Comments ACT-ISTAT (test code 131 SEC 74-137 N Perform ed by certified = ACTI) 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 [facility] POC ARTERIAL BLOOD [id number] 17:42:00 Test Item Value Reference Range Interpretation Comments POC ARTERIAL BLOOD GAS PH (test 7.411 7.35-7.45 N code = POCPHA) POC ARTERIAL BLOOD GAS PCO2 (test 34.4 mmHg 35.0-45 L code = XDFUSA9D) POC TCO2 ARTERIAL (test code = 22.9 POCTCO2) POC ARTERIAL BLOOD GAS PO2 (test 427.6 mmHg 80-100.0 HH code = HYLMU2W) POC HCO3 ARTERIAL (test code = 21.8 MMOL/L 22.0-26.0 L ISANDU0I) POC BASE EXCESS (test code = -2.3 MMOL/L -4.0-4.0 N POCBEA) POC O2 SATURATION (test code = 100.0 % 90-100 N POCO2S) BASIC METABOLIC [id number] 17:42:00 Test Item Value Reference Range Interpretation [...] = POCGLU) 105 MG/DL 70-110 N HEMOGLOBIN [id number] 17:42:00 Test Item Value Reference Range Interpretation Comments HEMOGLOBIN ABG (test code = 11.1 G/DL 11.0-15.0 N HGB/ABG) [id number] 17:42:00 Test Item Value Reference Range Interpretation Comments HEMATOCRIT (test code = HCT/ABG) 33 % 33.0-45.0 N POC LACTIC [id number] 17:42:00 Test Item Value Reference Range Interpretation Comments POC LACTIC ACID (test code = < 0.3 mmol/l 0.9-1.7 L POCLAC) CBC W/AUTO [id number] 08:01:00 Test Item Value Reference Range Interpretation [...] (test code NO = MDIFF) BASIC METABOLIC [id number] 07:38:00 Test Item Value Reference Range Interpretation [...] = 9.1 mg/dL 8.0-10.5 N CA) PROTHROMBIN [id number] 07:03:00 Test Item Value Reference Range Interpretation [...] (to prevent recurrent infar ct). THROMBOPLASTIN TIME [id number] 07:03:00 Test Item Value Reference Range Interpretation Comments THROMBOPLASTIN TIME 31.9 Seconds 25.0-39.5 N Therape utic Range: PARTIAL (test code = 50.4 - 88.3 Seconds PTT) Effective 01/16/2019 B-TYPE NATRIURETIC [id number] 12:31:00 Test Item Value Reference Range Interpretation Comments B-TYPE NATRIURETIC PEPTIDE (test 143.0 PG/ML 0-100 H code = BNP) PROTHROMBIN [id number] 10:31:00 Test Item Value Reference Range Interpretation [...] recurrent infar ct). 91 06/21/23 0954THROMBOPLASTIN TIME [id number] 10:31:00 Test Item Value Reference Range Interpretation Comments THROMBOPLASTIN TIME 33.1 Seconds 25.0-39.5 N Therape utic Range: PARTIAL (test code = 50.4 - 88.3 Seconds PTT) Effective 01/16/2019 91 06/21/23 0954COMPREHENSIVE METABOLIC [id number] 10:13:00 Test Item Value Reference Range Interpretation [...] (test code = LDL) NEAR OPTIM AL/ABOVE [id number] [id number] 89 HIGH>TS=031 JOVANY Y HIGH*Guidelines provided by the National Choles terol EducationProgra m Adult Treatment Panel III [id number] 10:12:00 Test Item Value Reference Range Interpretation Comments HGBA1C% (test code = HGBA1C%) 6.0 %A1C 4.8-6.0 N COVID 19 Asymptomatic IH [id number] 10:00:00 Test Item Value Reference Range Interpretation [...] high or waivedcomplexit y tests. CBC W/AUTO [id number] 09:50:00 Test Item Value Reference Range Interpretation [...] (test code NO = MDIFF) BASIC METABOLIC [id number] 07:28:00 Test Item Value Reference Range Interpretation [...] the recommended for roxana for [facility]FRby the [facility] for Adults.The GFR will not calculate if th e sex is unknown or if thepatient's ag e is <18 years. CREATININE (test 1.4 mg/dL 0.6-1.3 H code = CREAT) CALCIUM (test code = 9.1 mg/dL 8.0-10.5 N CA) BASIC METABOLIC [id number] 18:02:00 Test Item Value Reference Range Interpretation [...] the recommended for roxana for GFRby the [facility] Kidney Foundati on for Adults.The GFR will not calculate if th e sex is unknown or if thepatient's ag e is <18 years. CREATININE (test 1.5 mg/dL 0.6-1.3 H code = CREAT) CALCIUM (test code = 9.2 mg/dL 8.0-10.5 N CA) CBC W/AUTO [id number] 08:34:00 Test Item Value Reference Range Interpretation [...] (test code NO = MDIFF) BASIC METABOLIC [id number] 07:57:00 Test Item Value Reference Range Interpretation [...] code = 9.3 mg/dL 8.0-10.5 N CA) [id number] 07:57:00 Test Item Value Reference Range Interpretation Comments MAGNESIUM (test code = 1.86 mg/dL 1.6-2.6 N NOTE: NEW NORMAL MAG) RANGE BASIC METABOLIC [id number] 17:47:00 Test Item Value Reference Range Interpretation [...] 8.8 mg/dL 8.0-10.5 N CA) CBC W/AUTO [id number] 08:46:00 Test Item Value Reference Range Interpretation [...] (test code NO = MDIFF) BASIC METABOLIC [id number] 08:28:00 Test Item Value Reference Range Interpretation [...] code = 9.7 mg/dL 8.0-10.5 N CA) [id number] 08:28:00 Test Item Value Reference Range Interpretation Comments MAGNESIUM (test code = 1.83 mg/dL 1.6-2.6 N NOTE: NEW NORMAL MAG) RANGE BASIC METABOLIC [id number] 16:53:00 Test Item Value Reference Range Interpretation [...] 9.2 mg/dL 8.0-10.5 N CA) BASIC METABOLIC [id number] 08:20:00 Test Item Value Reference Range Interpretation [...] the recommended for roxana for GFRby the [facility] Kidney Foundati on for Adults.The GFR will not calculate if th e sex is unknown or if thepatient's ag e is <18 years. CREATININE (test 1.1 mg/dL 0.6-1.3 N code = CREAT) CALCIUM (test code = 9.4 mg/dL 8.0-10.5 N CA) [id number] 08:20:00 Test Item Value Reference Range Interpretation Comments MAGNESIUM (test code = 1.89 mg/dL 1.6-2.6 N NOTE: NEW NORMAL MAG) RANGE CBC W/AUTO [id number] 08:03:00 Test Item Value Reference Range Interpretation [...] MANUAL DIFF REQUIRED (test code NO = PRIYANKA) - US RETROPERITONEAL [id number] 09:07:00 [facility] 1945 Sex: F Name: BREA RODRIGUEZ [facility] : 1945 Age/S: 77 / F [address] [place] [address] BlvdUnit #: [id number] Loc: [place] [address] Phys: Usha Berrios MD Acct: [id number] Dis Date: Status: ADM IN PHONE #: [phone] Exam Date: 06/15/2023905 FAX #: [phone] Reason: renal failure EXAMS: CPT CODE: [id number] US RETROPERITONEAL COM [id number] ULTRASOUND: - US RETROPERITONEAL COM History: Renal [...] cm with homogeneous cortical echogenicity. No shadowing stones or obstruction. Good perfusion on Doppler. Bladder partially filled. No ascites found. Aorta and re troperitoneum limited. Impression: Symmetric renal appearance with no obstruction. Tiny right renal cysts, simple with no further follow-up needed. Location: U 19 at 0907 Reported and signed by: Alf Banks M.D. CC: Usha Berrios MD; Shahnaz Miller MD Technologist: Inés Mendosa RDMS(AB)(OB) Trnscb Date/Time: 06/15/2023 (906) [email or web address] Orig Print D/T: S: 06/15/2023 (909) Probe: PAGE 1 Signed Report- US RETROPERITONEAL [id number] 09:07:00 [facility] 1945 Sex: F Name: BREA GILES [facility] : 1945 Age/S: 77 / F [address] [place] [address] Unit #: [id number] Loc: [place] [address] Phys: Usha Berrios MD Acct: [id number] Dis Date: [id number] Status: DIS IN PHONE #: [phone] Exam Date: 06/15/2023 09 FAX #: [phone] Reason: renalfailure EXAMS: CPT CODE: [id number] US RETROPERITONEAL COM [id number] ULTRASOUND: - US RETROPERITONEAL COM History: Renal failure Comparison: No recent studies.. B-mode/Hendrix scale imaging with color Doppler perfusion imaging and spectral analysis was performed. The right kidney is 9 x 4.2 x 4.6 cm with goodperfusion on Doppler. The lower pole contains a simple 3.1 cm cyst with no further follow-up needed.Homogeneous cortical appearance. On others tiny cysts may be present also, simple. No obstruction orstones evident. The left kidney is 10.5 x 5 x 4.2 cm with homogeneous cortical echogenicity. No shadowing stones or obstruction. Good perfusion on Doppler. Bladder partially filled. No ascites found. Aorta and retroperitoneum limited. Impression: Symmetric renal appearance with no obstruction. Tiny right renal cysts, simple with no further follow-up needed. Location: U 19 at 0907 Reported and signed by: Alf Banks M.D. CC: Usha Berrios MD; Shahnaz Miller MD Technologist: Inés Mendosa RDMS(AB)(OB) Trnscb Date/Time: 06/15/2023 (906) [email or web address] Orig Print D/T: S: 06/15/2023 (909) Probe: PAGE 1 Signed ReportCBC W/AUTO [id number] 08:14:00 Test Item Value Reference Range Interpretation [...] (test code NO = MDIFF) UR PROTEIN [id number] 07:38:00 Test Item Value Reference Range Interpretation Comments UR PROTEIN RANDOM (test code = < 6 mg/dL PROTU) UR CREATININE [id number] 07:38:00 Test Item Value Reference Range Interpretation Comments UR CREATININE 28.5 mg/dL The Reference Range and RANDOM (test code Method Per formance = CREATU) specificationsh ave not been establishe d for this fluid. The test resultshould be correlated into the clinical contex t forinterpretati on. BASIC METABOLIC [id number] 07:17:00 Test Item Value Reference Range Interpretation [...] the recommended for roxana for GFRby the [facility] Found[facility] on for Adults.The GFR will not calculate if th e sex is unknown or if thepatient's ag e is <18 years. CREATININE (test 1.1 mg/dL 0.6-1.3 N code = CREAT) CALCIUM (test code = 9.2 mg/dL 8.0-10.5 N CA) CBC W/AUTO [id number] 08:42:00 Test Item Value Reference Range Interpretation [...] (test code NO = MDIFF) BASIC METABOLIC [id number] 07:39:00 Test Item Value Reference Range Interpretation [...] the recommended for roxana for GFRby the [facility] Foundati on for Adults.The GFR will not calculate if th e sex is unknown or if thepatient's ag e is <18 years. CREATININE (test 1.5 mg/dL 0.6-1.3 H code = CREAT) CALCIUM (test code = 9.2 mg/dL 8.0-10.5 N CA) BASIC METABOLIC [id number] 07:06:00 Test Item Value Reference Range Interpretation [...] the recommended for roxana for GFRby the [facility] Found[facility] on for Adults.The GFR will not calculate if th e sex is unknown or if thepatient's ag e is <18 years. CREATININE (test 1.2 mg/dL 0.6-1.3 N code = CREAT) CALCIUM (test code = 9.4 mg/dL 8.0-10.5 N CA) CBC W/AUTO [id number] 05:55:00 Test Item Value Reference Range Interpretation [...] REQUIRED (test code NO = MDIFF) GLUCOSE [id number] 22:01:00 Test Item Value Reference Range Interpretation Comments GLUCOSE BEDSIDE (test 144 MG/DL 70-110 H Perfor med by certified code = GLUBED) 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 [facility] CBC W/AUTO [id number] 08:35:00 Test Item Value Reference Range Interpretation [...] (test code NO = MDIFF) BASIC METABOLIC [id number] 08:21:00 Test Item Value Reference Range Interpretation [...] (test code = LDL) NEAR OPTIM AL/ABOVE [id number] HIGH>XN=061 JOVANY Y HIGH*Guidelines provided by the National [employer] ter[employer] Education[employer]gra m Adult Treatment Panel III [id number] 08:21:00 Test Item Value Reference Range Interpretation Comments MAGNESIUM (test code = 1.68 mg/dL 1.6-2.6 N NOTE: NEW NORMAL MAG) RANGE PROTHROMBIN [id number] 07:17:00 Test Item Value Reference Range Interpretation [...] infar ct). UA RFLX MICR CULT IF [id number] 07:12:00 Test Item Value Reference Range Interpretation [...] culture: Flank PainSpecimen Description: CLEAN CATCHCBC W/AUTO [id number] 08:24:00 Test Item Value Reference Range Interpretation [...] (test code NO = MDIFF) BASIC METABOLIC [id number] 08:15:00 Test Item Value Reference Range Interpretation [...] code = 9.7 mg/dL 8.0-10.5 N CA) [id number] 08:15:00 Test Item Value Reference Range Interpretation Comments MAGNESIUM (test code = 1.64 mg/dL 1.6-2.6 NOTE: NEW NORMAL MAG) RANGE - DUP VEIN [id number] 16:11:00 [facility] 1945 Sex: F Name: BREA RODRIGUEZ [facility] : 1945 Age/S: 77 / F [address] [place] [address] Unit #: [id number] Loc: [place] [address] Phys: Estee Jordan Acct: [id number] Dis Date: Status: ADM IN PHONE #: [phone] Exam Date: 06/10/2023 0745 FAX #: [phone] Reason: BLE Vein mapping and marking EXAMS: CPT CODE: [id number] DUP VEIN [place] 83872 EXAM: - DUP VEIN BRADLEY LOCATION: H65 HISTORY: BLE Vein mapping and marking TECHNIQUE: Grayscale [...] 1 Signed Report (CONTINUED) Name: BREA ZULUAGA [facility] : 1945 Age/S: 77 / F [address] [place] [address] Unit #: [id number] Loc: [place] [address] Phys: Estee Jordan Acct: [id number] Dis Date: Status: ADM IN PHONE #: [phone] Exam Date: 06/10/2023 0745 FAX #: [phone] Reason: BLE Vein mapping and marking EXAMS: CPT CODE: [id number] DUP VEIN [place] 16318 (Continued) CC: Nito Pickard MD; Estee Jordan Technologist: YANY Rios)(BR) Trnscb Date/Time: 06/10/2023 (161) [email or web address] Orig Print D/T: S: 06/13/2023 (0746) Probe: PAGE 2 Signed Report- DUP VEIN [id number] 16:11:00 [facility] : 1945 Sex: F Name: BREA GILES [facility] : 1945 Age/S: 77 / F [address] Unit #: [id number] Loc: [place] [address] Phys: Estee Joradn Physic Acct: [id number] Dis Date: 20230701 Status: DIS IN PHONE #: [phone] Exam Date: 06/10/202345 FAX #: [phone] Reason: BLE Vein mapping and marking EXAMS: CPT CODE: [id number] DUP VEIN BR[place] 60781 EXAM: - DUP VEIN BRADLEY LOCATION: H65 HISTORY: BLE Vein mapping and marking TECHNIQUE: Grayscale real-time B-mode imaging with color doppler and spectral duplex images was performed for greater saphenous vein mapping of thebilateral lower extremities. COMPARISON: None available. FINDINGS/ IMPRESSION: Bilateral greater saphenous veins are patent throughout with normal compressibility. Right leg greater saphenous vein diame ters Upper thigh: 0.39 cm Mid thigh: 0.3 [...] 1 Signed Report (CONTINUED) Name: BREA GILES [facility] : 1945 Age/S: 77/ F [address] [place] [address] Unit #: [id number] Loc: [place] [address] Phys: Estee Jordan Physic Acct: [id number] Dis Date: 20230701 Status: DIS IN PHONE #: [phone] Exam Date: 06/10/2023744 FAX #: [phone] Reason: BLE Vein mapping and marking EXAMS: CPT CODE: [id number] DUP VEIN [place] 11287 (Continued) CC: Nito Pickard MD; Estee Jordan Technologist: Naina Gray RDMS(Mu)(BR)Trnscb Date/Time: 06/10/2023 (1611) [email or web address] Orig Print D/T: S: 06/13/2023 (0746) Probe: PAGE 2 Signed Report- DUP EXTRACRANIAL [id number] 15:46:00 [facility] : 1945 Sex: F Name: BREA RODRIGUEZ [facility] : 1945 Age/S: 77 / F [address] [place] [address] BlvdUnit #: [id number] Loc: [place] [address] Phys: Estee Jordan Acct: [id number] Dis Date: Status: ADM IN PHONE #: [phone] Exam Date: 06/10/2023745 FAX #: [phone] Reason: CAD, eval for CABG EXAMS: CPT CODE: [id number] [facility] EXTRACRANIAL BR[place] 20708 EXAM: Carotid ultrasound Dictation l ocation: C3 INDICATION: Coronary artery disease, evaluation for CABG COMPARISON: None DISCUSSION: Hendrix scale, color Doppler, and spectral waveform analysis images of the extracranial carotid vessels were performed. Right side: Plaque: None. Peak systolic velocities: CCA: 77 cm/s ICA: 68cm/s ECA: 48 cm/s ICA to CCA ratio: 0.9 Vertebral artery: Antegrade flow Left side: Plaque: Small homogeneous plaques are seen at the carotid bulb. Peak systolic velocities: CCA: 87 cm/s ICA: 102 cm/s ECA: 51 cm/s ICAto CCA ratio: 1.2 Vertebral artery: Antegrade flow [...] 1 Signed Report (CONTINUED) Name: BREA ZULUAGA [facility] Jayme LakeDOB: 1945 Age/S: 77 / F [address] [place] [address] Blvd Unit #: [id number] Loc: [place] [address] Phys: Estee Jordan Acct: [id number] Dis Date: Status: ADM IN PHONE #: [phone] Exam Date:06/10/2023745 FAX #: [phone] Reason: CAD, eval for CABG EXAMS: CPT CODE: [id number] DUP EXTRACR ANIAL BRAD[place] 73025 (Continued) at 1546 Reported and signed by: Ezequiel Boyce M.D. CC: Nito Pickard MD; Estee Jordan Technologist: YANY Rios)() Trnscb Date/Time: 06/10/2023 (1546) t.[email or web address] Orig Print D/T:S: 06/13/2023 (0746) Probe: PAGE 2 Signed Report- DUP EXTRACRANIAL [id number] 15:46:00[facility] Venkat : 1945 Sex: F Name: BREA GILES [facility] : 1945 Age/S: 77 / F [address] [place] [address] Unit #: [id number] Loc: [place] [address] Phys: Estee Jordan Physic Acct: [id number] Dis Date: 20230701 Status: DIS IN PHONE #: [phone] Exam Date: 06/10/2023745 FAX #: [phone] Reason: CAD, eval for CABG EXAMS: CPT CODE: [id number] DUP EXTRACRANIAL BR[place] 85123 EXAM: Carotid ultrasound Dictation location: C3 INDICATION: Coronary artery disease, evaluation for CABG COMPARISON: None DISCUSSION: Hendrix scale, color Doppler, and spectral waveform analysis images of the extracranial carotid vessels were performed. Right side: Plaque: None. Peak systolic velocities: CCA: 77 cm/s ICA: 68cm/s ECA: 48 cm/s ICA to CCA ratio: 0.9 Vertebral artery: Antegrade flow Left side: Plaque: Small homogeneous plaques are seen at the carotid bulb. Peak systolic velocities: CCA: 87 cm/s ICA: 102 cm/s ECA: 51 cm/s ICA to CCA ratio: 1.2 Vertebral artery: Antegrade flow There are several instances of irregular heart rate and spectral waveforms. IMPRESSION: 1. Small homogeneous plaques at the left carotidbulb. No evidence of hemodynamically significant (greater than 50%) stenosis. 2. Antegrade vertebralartery flow bilaterally. 3. Several instances of irregular heart rate are seen during the exam. Correlation with clinical data is needed. PAGE 1 Signed Report (CONTINUED) Name: BREA GILES [facility] : 1945 Age/S: 77 / F [address] [place] [address] Unit #: [id number] Loc: [place] [address] Phys: Estee Jordan Physic Acct: [id number] Dis Date: 20230701 Status: DIS IN PHONE #: [phone] Exam Date: 06/10/2023745 FAX #: [phone] Reason: CAD, eval for CABG EXAMS: CPT CODE: [id number] DUP EXTRACRANIAL [place] 69272 (Continued) at 1546 Reported and signed by: Ezequiel Boyce M.D. CC: Nito Pickard MD; Estee Jordan Technologist: Naina Gray RDMS(Mu)(BR) Trnscb Date/Time: 06/10/2023 (1546) [email or web address] Orig Print D/T: S: 06/13/2023 (0746) Probe: PAGE 2 Signed Report- CT CHEST W/O [id number] 14:47:00[facility] : 1945 Sex: F Name: BREA MOURA [facility] : 1945 Age/S: 77 / F [address] [place] [address] Unit #: [id number] Loc: [place] [address] Phys: Estee Jordan Acct: [id number] Dis Date: Status: ADM IN PHONE #: [phone] Exam Date: 06/10/2023 1429 FAX #: [phone] Reason: CAD, eval for CABG EXAMS: CPT CODE: [id number] CT CHEST W/O CONTRAST 54952 EXAM: Chest CT without contrast Dictation location: C3 INDICATION: Coronary artery disease, evaluate for CABG COMPARISON: None TECHNIQUE: Helical CT of the chest was performed without contrast. 5 mm axial and coronal and sagittal reformatted images were obtained. Unless otherwise specified, incidental findings do not require dedicatedimaging follow- up. DISCUSSION: Lungs and airways: There is linear [...] wall thickening, suggestive of acute or chronic bronchitis or asthma. PAGE 1 Signed Report (CONTINUED) Name: BREA MAJOR [facility] : 1945 Age/S: 77 / F [address] [place] [address] Unit #: [id number] Loc: [place] [address] Phys: Estee Jordan Acct: [id number] Dis Date: Status: ADM IN PHONE #: [phone] Exam Date: 06/10/2023 1429 FAX #: [phone] Reason: CAD, eval for CABG EXAMS: CPT CODE: [id number] CT CHEST W/O CONTRAST 14373 (Continued) One or more of the following dose reduction techniques were used: Automated exposure control, adjustment of the mA and/or kV according to patient size, and/or utilization of iterative reconstruction technique. DLP: 816 mGy-cm CTDI: 22 mGy at 1447 Reported and signed by: Ezequiel Boyce M.D. CC: Nito Pickard MD;Estee Jordan Technologist:Ricky Elizondo RT(R)(CT) CTDI: DLP: Trnscb Date/Time: 06/10/2023 (4391) t.[email or web address].[email or web address] Orig Print D/T: S: 06/10/2023 (0339) PAGE 2 Signed Report- CT CHEST W/O [id number] 14:47:00 [facility] : 1945 Sex: F Name: BREA GILES [facility] : 1945 Age/S: 77 / F [address] [place] [address] Unit #: [id number] Loc: [place] [address] Phys: Estee Jordan Acct: [id number] Dis Date: 07/01/2023 Status: DIS IN PHONE #: [phone] Exam Date: 06/10/2023 1429 FAX #: [phone] Reason: CAD, eval for CABG EXAMS: CPT CODE: [id number] CT CHEST W/O CONTRAST 05822 EXAM: Chest CT without contrast Dictation location: C3 INDICATION: Coronary artery disease, evaluate [...] The aorta is normal in caliber, with mildaortic atherosclerotic calcification. Multivessel coronary artery calcifications are noted, greatestinvolving the LAD territory. There is mild left-sided cardiomegaly. No pericardial effusion or mediastinal mass is seen. A pacemaker is in place. Lymph nodes: No lymphadenopathy. Bones/soft tissues: Nofracture or bony mass lesion. Upper abdomen: Grossly unremarkable except for prior cholecystectomy. IMPRESSION: 1. Multivessel coronary artery calcifications, greatest involving the LAD territory. There is mild left-sided cardiomegaly, suggestive of CHF. A pacemaker is in place. 2. Linear partial cons olidation at the posterior/medial aspect of the right upper and right lower lobes. This could be seen with scarring, atelectasis, or less likely pneumonia. Linear atelectasis or scarring is seen in thelingula and left lower lobe. 3. Mild diffuse bronchial wall thickening, suggestive of acute or chronic bronchitis or asthma. PAGE 1 Signed Report (CONTINUED) Name: BREA GILES [facility] : 1945 Age/S: 77 / F [address] [place] [address] Blvd Unit #: [id number] Loc: [place] [address] Phys: Estee Jordan Acct: [id number] Dis Date: 07/01/2023 Status: DIS IN PHONE #: [phone] Exam Date: 06/10/2023 1429 FAX #: [phone] Reason: CAD, eval for CABG EXAMS: CPT CODE: [id number] CT CHEST W/O CONTRAST 66045 (Continued) One or more of the following dose reduction techniques were used: Automated exposure control, adjustment of the mA and/or kV according to patient size, and/or utilization of iterative reconstruction technique. DLP: 816 mGy-cm CTDI: 22 mGy at 1447 Reported and signed by: Ezequiel Boyce M.D. CC: Nito Pickard MD; Estee Jordan Technologist:RT Steve(R)(CT) CTDI: DLP: Trnscb Date/Time: 06/10/2023 (1447) [email or web address] Orig Print D/T: S: 06/10/2023 (3237) PAGE 2 Signed ReportB-TYPE NATRIURETIC [id number] 08:09:00 Test Item Value Reference Range Interpretation Comments B-TYPE NATRIURETIC PEPTIDE (test 198.0 PG/ML 0-100 H code = BNP) [id number] 08:09:00 Test Item Value Reference Range Interpretation Comments HGBA1C% (test code = HGBA1C%) 6.2 %A1C 4.8-6.0 H CBC W/AUTO [id number] 07:49:00 Test Item Value Reference Range Interpretation [...] (test code NO = MDIFF) COMPREHENSIVE METABOLIC [id number] 07:38:00 Test Item Value Reference Range Interpretation [...] 20-125 N TOTAL (test code = ALKP) [id number] 07:38:00 Test Item Value Reference Range Interpretation Comments MAGNESIUM (test code = 2.08 mg/dL 1.6-2.6 N NOTE: NEW NORMAL MAG) RANGE MR, BRAIN, [id number] 14:55:00Unlisted Reason for Exam - Click Yes and Enter Reason Below->YesUnlisted Reason for Exam->meningioma [facility] : 1945 Sex: FFINAL [...] but favored to represent chronic small vessel ischemicchanges. No hydrocephalus. Orbits are within normal limits. No obstructive paranasal sinus disease. Hyperostosis frontalis is present. Chronic deformity of the left mandible, incompletely characterized. IMPRESSION: 1.No acute infarct, intracranial hemorrhage, or mass. 2.Extra-axial calcifications along the frontal convexities. No meningioma identified. Signed: Lillian Davison Verified Date/Time: 11/09/2022 14:55:54 RAD, CHEST, 2 [id number] 13:58:00Reason for exam:->mri pacemaker clearanceUN[facility]ERS[facility]Name: [facility] : 1945 Sex: FFINAL REPORT INDICATION: mri pacemaker clearance COMPARISON: None TECHNIQUE: AP and lateral view of the chest. FINDINGS: Lungs and pleura: Clear lungs. No effusion.Heart and mediastinum: Normal heart size. Unremarkable mediastinal contours.Osseous structures: No acute abnormality.Other: Pacer. IMPRESSION: No acute intrathoracic abnormality. Signed: Yue Sexton Verified Date/Time: 11/08/2022 13:58:06 Reading Location: [address] Reading Room MAGNESIUM, [id number] 14:26:00 Test Item Value Reference Range Interpretation Comments MAGNESIUM, SERUM 1.8 mg/dL 1.6-2.3 (test code = 30348-0) CHELSEY (test code = CHELSEY) [facility] results reported in Eastern Time. [facility] Clinical Information:SRC:Blood, venous*Venipunc ture ? [facility] Source of Specimen:Blood, venous*Venipunc Adeola AlamoyboldCBC WITH DIFFERENTIAL/[id number] 13:00:00 Test Item Value Reference Range Interpretation [...] 1 % Not Estab. (test code = 89941-2) IMMATURE GRANS (ABS) See_Comment [Autom ated (test code = 08337-1) messag e] The system which generated this result transmit rosa reference range : 0.0 - 0.1 x10E3/uL. The reference range was not used to interpret this result as normal/abnormal . CHELSEY (test code = CHELSEY) [facility] results reported in Eastern Time. [facility] Clinical Information:SRC :Blood, venous*Venipunc ture ? [facility] Source of Specimen:Blood, venous*Venipunc Lab Interpretation Abnormal (test code = 46162-3) Adeola SierraEXTERNAL [id number] 20:45:00 Test Item Value Reference Range Interpretation Comments Radiology Study observation (narrative) (test code = 56092-4) CHELSEY (test code = CHELSEY) [facility] Lateral Ribs- LeftRib Xray: ?Comparision [...] disease. Lab Interpretation Normal (test code = 26681-0) Adeola yboldURINALYSIS, [id number] 21:24:00 Test Item Value Reference Range Interpretation Comments SPECIFIC GRAVITY 1.005-1.030 (test code = 2965-2) PH (test code = 5.0-7.5 5803-2) URINE-COLOR (test Yellow Yellow code = 5778-6) APPEARANCE (test code Clear Clear = 5767-9) WBC ESTERASE (test Negative Negative code = 5799-2) PROTEIN (test code = 1+ Negative/Trace A 91560-3) GLUCOSE (test code = 3+ Negative A 2349-9) KETONES (test code = Trace Negative A 2514-8) OCCULT BLOOD (test Negative Negative code = 5794-3) BILIRUBIN (test code Negative Negative = 5770-3) UROBILINOGEN,SEMI-QN 1.0 mg/dL 0.2-1.0 (test code = 78144-0) NITRITE, URINE (test Negative Negative code = 5802-4) MICROSCOPIC See below: Microscopic was EXAMINATION (test indicated and was code = 89120-8) performed. CHELSEY (test code = CHELSEY) [facility] results reported in Eastern Time. [facility] Clinical Information:SRC :Urine*Urine ?[facility] Source of Specimen:Urine* Urine Lab Interpretation Abnormal (test code = 93986-2) Adeola SeyboldMICROSCOPIC [id number] 21:24:00 Test Item Value Reference Range Interpretation Comments WBC (test code = 0-5 See_Comment [Automated 5821-4) message] The system which generated this result transmit rosa reference range : 0 - 5 /hpf. The reference range was not used to interpret this result as normal/abnormal . RBC (test code = None seen See_Comment [Automated 50518-7) message] The system which generated this result [...] code = Present None seen /lpf A 60894-9) CAST TYPE (test code Hyaline casts N/A = 31906-5) BACTERIA (test code = None seen None seen/Few 5769-5) CHELSEY (test code = CHELSEY) [facility] results reported in Eastern Time. [facility] Clinical Information:SRC :Urine*Urine ?[facility] Source of Specimen:Urine* Urine Lab Interpretation Abnormal (test code = 38378-3) Adeola SagastumeoldBASIC METABOLIC PANEL (8)[id number] 13:16:00 Test Item Value Reference Range Interpretation Comments GLUCOSE, SERUM (test 220 mg/dL 65-99 H code = 2345-7) BUN (test code = 20 mg/dL 8-27 3094-0) CREATININE, SERUM 1.34 mg/dL 0.57-1.00 H (test code = 2160-0) EGFR IF NONAFRICN AM 39 mL/min/1.73 >59 L (test code = 22967-5) EGFR IF AFRICN AM 45 mL/min/1.73 >59 L [facility] p (test code = 76920-8) angelina nunn reports eGFR in compliance with the current ?recommendation s of the National Kid[employer]. [facility] will ?update reporti ng as new guidelin es are published from the NK- N ?Task force. BUN/CREATININE RATIO 12-28 (test code = 3097-3) SODIUM, SERUM (test 141 mmol/L 134-144 code = 2951-2) POTASSIUM, SERUM (test 4.3 mmol/L 3.5-5.2 code = 2823-3) CHLORIDE, SERUM (test 105 mmol/L 96-106 code = 2075-0) CARBON DIOXIDE, TOTAL 22 mmol/L 20-29 (test code = 2027-9) CALCIUM, SERUM (test 9.4 mg/dL 8.7-10.3 code = 23946-1) CHELSEY (test code = CHELSEY) [facility] results reported in Eastern Time. [facility] Clinical Information:SRC :Blood, venous*Venipunc ture ? [facility] Source of Specimen:Blood, venous*Venipunc Lab Interpretation Abnormal (test code = 50491-2) Adeola Topete RFLX MICR CULT IF [id number] 18:01:00 Test Item Value Reference Range Interpretation [...] oth srcSpecimen Description: MID STREAM B-TYPE NATRIURETIC [id number] 16:06:00 Test Item Value Reference Range Interpretation Comments B-TYPE NATRIURETIC PEPTIDE (test 151.0 PG/ML 0-100 H code = BNP) BASIC METABOLIC [id number] 15:59:00 Test Item Value Reference Range Interpretation [...] code = 9.6 mg/dL 8.0-10.5 N CA) [id number] 15:59:00 Test Item Value Reference Range Interpretation Comments TROPONIN-I 0.031 ng/mL 0.000-0.045 N Negative: <= 0 .045 Positive: (test code = >= 0.046 Correl ation with TROPI) serial results, other cardiac markers andclin ical findings is necessary to determine the clinicalsignifi cance of this result. Results using different metho dologies should not be c omparedto one another as deep titative results may paloma y by method. PROTHROMBIN [id number] 15:58:00 Test Item Value Reference Range Interpretation [...] (to prevent recurrent infar ct). THROMBOPLASTIN TIME [id number] 15:58:00 Test Item Value Reference Range Interpretation Comments THROMBOPLASTIN TIME 31.0 Seconds 25.0-39.5 N Therape utic Range: PARTIAL (test code = 50.4 - 88.3 Seconds PTT) Effective 01/16/2019 PROTHROMBIN [id number] 15:57:00 Test Item Value Reference Range Interpretation [...] (to prevent recurrent infar ct). THROMBOPLASTIN TIME [id number] 15:57:00 Test Item Value Reference Range Interpretation Comments THROMBOPLASTIN TIME PARTIAL (test Seconds 25.0-39.5 code = PTT) CBC W/AUTO [id number] 15:47:00 Test Item Value Reference Range Interpretation [...] MDIFF) - XR HIP W/PEL UNI 2+V [id number] 00:00:00 [facility] 1945 Sex: F FAX: Kirby Gruber [phone] [place]: St: REG Name: BREA GILES [facility] : 1945ge/S: 75/F [address] [place] [address] Blvd Unit #: [id number] Loc: [place] [address] Phys: Kirby Gruber Acct: [id number] Dis Date: Status: REG ER PHONE #: [phone] Exam Date: 05/16/2021 1552 FAX #: [phone] Reason: fall, R hip pain EXAMS: CPT CODE: [id number] XR HIP W/PEL UNI 2+V RT [id number] INFORMATION: Exam: XR Right Hip Exam date and time: 05/16/2021 3:27 PM Age: 75 years old Clinical indication: Injury or trauma; Fall; Sprain or strain; Right; Hip; Additional info: Fall, R hippain TECHNIQUE: Imaging protocol: XR Right hip. Views: 2 or 3 views hip with pelvis when performed. COMPARISON: No relevant prior studies available. Images of the right hip were obtained in 2 projections. The proximal right femur demonstrates no evidence of acute fracture or bone destruction. The femoral head is normally located and the bony acetabulum appears intact. No abnormalities of the bony thorax are noted. IMPRESSION: 1. No acute bony abnormalities of the right hip are detected. SL: 131 at 1607 Reported and signedby: Oli Meza M.D. CC: Kirby ANDERSEN Technologist: RT Aziza(Maddison) Trnscrd Date/Time/By: 05/16/2021 (1606) : By: Laquita Orig Print D/T: S: 05/16/2021 (8451) PAGE 1 Signed Report- XR FEMUR MIN 2 VWS [id number] 00:00:00 [facility] Venkat : 1945 Sex: F FAX: Kirby Gruber [phone] [place]: St: REG Name: BREA GILES Venkat [facility] : 1945ge/S: 75/F [address] [place] [address] Unit #: [id number] Loc: [place] [address] Phys: Kirby Gruber Acct: [id number] Dis Date: Status: REG ER PHONE #: [phone] Exam Date: 05/16/2021 1552 FAX #: [phone] Reason: fall, R hip pain EXAMS: CPT CODE: [id number] XR FEMUR MIN 2 [place] [address] PROCEDURE INFORMATION: Exam: XR Right Femur Exam [...] ANDERSEN Technologist: RT Aziza(R) Trnscrd Date/Time/By: 05/16/2021 (6133) : By: ValenteRG17 Orig Print D/T: S: 05/16/2021 (1607) PAGE 1 Signed Report- XR CHEST 1 [id number] 00:00:00 [facility] JORGE ALBERTO JEFFRIESSHTAVIAJEFF Robledo : 1945 Sex: F FAX: Kirby Gruber [phone] [place]: St: REG Name: YESSICAGIOVANNI BREA CEJA [facility] : 1945 Age/S: 75/F [address] [place] [address] Unit #: [id number] Loc: [place] [address] Phys: Kirby Gruber Acct: [id number] Dis Date: Status: REG ER PHONE #: [phone] Exam Date: 05/16/2021 1552 FAX #: [phone] Reason: trauma EXAMS: CPT CODE: [id number] XR CHEST 1 V 38580 PROCEDURE INFORMATION: Exam: XR Chest Exam date and time: 05/16/2021 3:27 PM Age: 75 years old Clinical indication: Pain; Other: Trauma TECHNIQUE: Imaging protocol: XR of the chest. Views: 1 view. COMPARISON: CR XR CHEST 07/20/2019 5:36 AM The positioning of the [...] ANDERSEN Technologist: RT Aziza(Maddison) Trnscrd Date/Time/By: 05/16/2021 (9690) : By: Laquita Orig Print D/T: S: 05/16/2021 (6230) PAGE 1 Signed Report- CT HEAD/BRAIN W/O [id number] 00:00:00 [facility]JEFF Robledo : 1945 Sex: F Name: TAVIA GILESJEFF Robledo [facility] : 1945 Age/S: 75 / F [address] [place] [address] Unit #: [id number] Loc: [place] [address] Phys: Kirby Gruber Acct: [id number] Dis Date: Status: REG ER PHONE #: [phone] Exam Date: 05/16/2021 1609 FAX #: [phone] Reason: trauma, R posterior hematoma, on Xarelto EXAMS: CPT CODE: [id number] CT HEAD/BRAIN W/O CONT 37585 PROCEDURE INFO RMATION: Exam: CT Head Without [...] 562.04 COMPARISON: No relevant prior studies available. FIN DINGS: Brain: There are mild generalized involutional changes. The cerebral cortical architecture isotherwise maintained. Mild areas of diminished attenuation in [...] M.D. PAGE 1 Signed Report (CONTINUED) Name: YESSICAGIOVANNI BREA CEJA [facility] : 1945 Age/S: 75 / F [address] [place] [address] Blvd Unit #: [id number] Loc: [place] [address] Phys: Kirby Gruber Acct: [id number] Dis Date: Status: REG ER PHONE #: Exam Date: 05/16/2021 1609 FAX #: [phone] Reason: trauma, R posterior hematoma, on Xarelto EXAMS: CPT CODE: [id number] CT HEAD/BRAIN W/O CONT 31892 <Continued> CC: Kirby ANDERSEN Technologist:Addis Prado, RT(R)(CT) CTDI: DLP: Trnscb Date/Time: 05/16/2021 (3246) Mary Carmen Orig Print D/T: S: 05/16/2021 (1626) PAGE 2 Signed Report- CT C-SPINE W/O [id number] 00:00:00[facility] : 1945 Sex: F Name: FREDTAVIA BALDERASJEFF Robledo [facility] : 1945 Age/S: 75 / F [address] [place] [address] Bl Unit #: [id number] Loc: [place] [address] Phys: Kirby Gruber Acct: [id number] Dis Date: Status: REG ER PHONE #: [phone] Exam Date: 05/16/2021 1609 FAX #: [phone] Reason: trauma, posterior head pain EXAMS: CPT CODE: [id number] CT C-SPINE W/O CONT 54844 PROCEDURE INFORMATION: Exam: CT Cervical Spine Without Contrast Exam date and time: 05/16/2021 3:55 PM Age: 75 years old Clinicalindication: Injury or trauma; Fall; Blunt trauma; Additional info: Trauma, posterior head pain TECHNIQUE: Imaging protocol: Computed tomography images of the cervical spine without contrast. Radiationoptimization: All CT scans at this facility use [...] fractures or subluxations of the cervical spine. Interver tebral disc space narrowing with marginal spurs from [...] ultrasound can be performed further assessment. at 4444 Reported and signed by: Zackary Malik M.D. PAGE 1 Signed Report (CONTINUED) Name: BREA GILES [facility] : 1945 Age/S: 75 / F [address] [place] [address] Unit #: [id number] Loc: [place] [address] Phys: Kirby Gruber Acct: [id number] Dis Date: Status: REG ER PHONE #: Exam Date: 05/16/2021 1609 FAX #: [phone] Reason: trauma, posterior head pain EXAMS: CPT CODE: [id number] CT C-SPINE W/O CONT 41824 <Continued> CC: Kirby ANDERSEN Technologist:RT Carleen(Maddison)(CT) CTDI: DLP: Trnscb Date/Time: 05/16/2021 (1644) ValenteJS38 Orig Print D/T: S: 05/16/2021 (7657) PAGE 2 Signed ReportGLUCOSE BEDSIDE [id number] 07:45:00 Test Item Value Reference Range Interpretation Comments GLUCOSE BEDSIDE TESTING (test code 130 MG/DL 60-99 H = GLUBED) BASIC METABOLIC [id number] 06:54:00 Test Item Value Reference Range Interpretation [...] 9.8 MG/DL 8.4-10.2 N CA) BASIC METABOLIC [id number] 06:53:00 Test Item Value Reference Range Interpretation [...] code = MG/DL 8.7-9.7 CA) BASIC METABOLIC [id number] 06:50:00 Test Item Value Reference Range Interpretation [...] code = CA) MG/DL 8.7-9.7 CBC W/AUTO [id number] 06:24:00 Test Item Value Reference Range Interpretation [...] 0.00 K/mm3 0.0-0.1 N NRBC#) GLUCOSE BEDSIDE [id number] 05:35:00 Test Item Value Reference Range Interpretation Comments GLUCOSE BEDSIDE TESTING (test code 161 MG/DL 60-99 H = GLUBED) UR SODIUM [id number] 00:53:00 Test Item Value Reference Range Interpretation Comments UR SODIUM RANDOM (test code = MARIAH) 13 MMOL/L 27-287 L UR OSMOLALITY [id number] 00:53:00 Test Item Value Reference Range Interpretation Comments UR OSMOLALITY RANDOM (test code 310.5 MOS/KG 300-1200 N = OSMOU) UR SODIUM [id number] 23:08:00 Test Item Value Reference Range Interpretation Comments UR SODIUM RANDOM (test code = MARIAH) 13 MMOL/L 27-287 L UR OSMOLALITY [id number] 23:08:00 Test Item Value Reference Range Interpretation Comments UR OSMOLALITY RANDOM (test code = MOS/KG 300-1200 OSMOU) OSMOLALITY [id number] 19:19:00 Test Item Value Reference Range Interpretation Comments OSMOLALITY SERUM (test code = 301 mOsm/kg 275-295 H OSMO) GLUCOSE BEDSIDE [id number] 16:55:00 Test Item Value Reference Range Interpretation Comments GLUCOSE BEDSIDE TESTING (test code 294 MG/DL 60-99 H = GLUBED) GLUCOSE BEDSIDE [id number] 12:44:00 Test Item Value Reference Range Interpretation Comments GLUCOSE BEDSIDE TESTING (test code 202 MG/DL 60-99 H = GLUBED) GLUCOSE BEDSIDE [id number] 11:17:00 Test Item Value Reference Range Interpretation Comments GLUCOSE BEDSIDE TESTING (test code 266 MG/DL 60-99 H = GLUBED) GLUCOSE BEDSIDE [id number] 11:16:00 Test Item Value Reference Range Interpretation Comments GLUCOSE BEDSIDE TESTING (test code 112 MG/DL 60-99 H = GLUBED) - XR CHEST [id number] 08:11:00 Patient Name: BREA GILES Unit No: [id number] EXAMS: CPT CODE: [id number] XR CHEST 1V 71309 Site ID: [id number] EXAMINATION: - XR CHEST [...] Frances Reardon RT(R) Transcrpt Date/Tm/Trnsp: 07/20/2019 (810) Wendy Orig Print D/T: S: 07/20/2019 (813) [facility] NAME: BREA GILES [address] PHYS: MARIA ELENA.[address] [place] [address] : 1945 AGE: 73 SEX: F LOC: Darrell Dobbins PHONE #: [phone] EXAM DATE: 07/20/2019 STATUS: ADM IN FAX #: [phone] RADIOLOGY NO: PAGE 1 Signed ReportBASIC METABOLIC [id number] 05:45:00 Test Item Value Reference Range Interpretation [...] code = 9.5 MG/DL 8.4-10.2 N CA) [id number] 05:41:00 Test Item Value Reference Range Interpretation Comments DIGOXIN (test code = DIG) 0.6 NG/ML 0.8-2.0 L BASIC METABOLIC [id number] 05:25:00 Test Item Value Reference Range Interpretation [...] code = MG/DL 8.7-9.7 CA) BASIC METABOLIC [id number] 05:22:00 Test Item Value Reference Range Interpretation [...] code = CA) MG/DL 8.7-9.7 CBC W/AUTO [id number] 05:00:00 Test Item Value Reference Range Interpretation [...] = 0.00 K/mm3 0.0-0.1 N NRBC#) URINALYSIS [id number] 21:50:00 Test Item Value Reference Range Interpretation [...] code = UACULT) SOURCE OF URINE: VOIDEDUA [id number] 21:50:00 Test Item Value Reference Range Interpretation Comments UA RBC (test code = RBCU) 0-3 RBC/HPF 0-3 UA WBC (test code = XWBCU) 5-9 WBC/HPF 0-5 A UA EPITHELIAL CELLS (test code = FEW EPI/HPF FEW EPIU) UA BACTERIA (test code = XBACU) FEW NONE SOURCE OF URINE: VOIDEDURINALYSIS [id number] 21:43:00 Test Item Value Reference Range Interpretation [...] code = UACULT) SOURCE OF URINE: VOIDEDUA [id number] 21:43:00 Test Item Value Reference Range Interpretation Comments UA RBC (test code = RBCU) RBC/HPF 0-3 UA WBC (test code = XWBCU) WBC/HPF 0-5 UA EPITHELIAL CELLS (test code = EPI/HPF FEW EPIU) UA BACTERIA (test code = XBACU) NONE SOURCE OF URINE: VOIDEDURINALYSIS [id number] 21:43:00 Test Item Value Reference Range Interpretation [...] code = UACULT) SOURCE OF URINE: VOIDEDUA [id number] 21:43:00 Test Item Value Reference Range Interpretation Comments UA RBC (test code = RBCU) RBC/HPF 0-3 UA WBC (test code = XWBCU) WBC/HPF 0-5 UA EPITHELIAL CELLS (test code = EPI/HPF FEW EPIU) UA BACTERIA (test code = XBACU) NONE SOURCE OF URINE: VOIDEDGLUCOSE BEDSIDE [id number] 21:08:00 Test Item Value Reference Range Interpretation Comments GLUCOSE BEDSIDE TESTING (test code 202 MG/DL 60-99 H = GLUBED) GLUCOSE BEDSIDE [id number] 16:25:00 Test Item Value Reference Range Interpretation Comments GLUCOSE BEDSIDE TESTING (test code 191 MG/DL 60-99 H = GLUBED) GLUCOSE BEDSIDE [id number] 07:50:00 Test Item Value Reference Range Interpretation Comments GLUCOSE BEDSIDE TESTING (test code 173 MG/DL 60-99 H = GLUBED) BASIC METABOLIC [id number] 05:13:00 Test Item Value Reference Range Interpretation [...] 9.5 MG/DL 8.4-10.2 N CA) BASIC METABOLIC [id number] 05:08:00 Test Item Value Reference Range Interpretation [...] code = CA) MG/DL 8.7-9.7 CBC W/AUTO [id number] 04:54:00 Test Item Value Reference Range Interpretation [...] 0.00 K/mm3 0.0-0.1 N NRBC#) GLUCOSE BEDSIDE [id number] 19:57:00 Test Item Value Reference Range Interpretation Comments GLUCOSE BEDSIDE TESTING (test code 171 MG/DL 60-99 H = GLUBED) GLUCOSE BEDSIDE [id number] 16:05:00 Test Item Value Reference Range Interpretation Comments GLUCOSE BEDSIDE TESTING (test code 286 MG/DL 60-99 H = GLUBED) GLUCOSE BEDSIDE [id number] 12:28:00 Test Item Value Reference Range Interpretation Comments GLUCOSE BEDSIDE TESTING (test code 234 MG/DL 60-99 H = GLUBED) GLUCOSE BEDSIDE [id number] 08:29:00 Test Item Value Reference Range Interpretation Comments GLUCOSE BEDSIDE TESTING (test code 196 MG/DL 60-99 H = GLUBED) B-TYPE NATRIURETIC [id number] 04:56:00 Test Item Value Reference Range Interpretation Comments B-TYPE NATRIURETIC PEPTIDE (test 371.0 PG/ML 0-100 H code = BNP) COMPREHENSIVE METABOLIC [id number] 04:47:00 Test Item Value Reference Range Interpretation [...] UNITS/L 38-126 N (test code = ALKP) [id number] 04:47:00 Test Item Value Reference Range Interpretation Comments MAGNESIUM (test code = MAG) 1.9 MG/DL 1.6-2.3 N COMPREHENSIVE METABOLIC [id number] 04:45:00 Test Item Value Reference Range Interpretation [...] PHOSPHATASE (test code = UNITS/L 38-126 ALKP) [id number] 04:45:00 Test Item Value Reference Range Interpretation Comments MAGNESIUM (test code = MAG) MG/DL 1.6-2.3 COMPREHENSIVE METABOLIC [id number] 04:44:00 Test Item Value Reference Range Interpretation [...] PHOSPHATASE (test code = UNITS/L 38-126 ALKP) [id number] 04:44:00 Test Item Value Reference Range Interpretation Comments MAGNESIUM (test code = MAG) MG/DL 1.6-2.3 CBC W/AUTO [id number] 04:25:00 Test Item Value Reference Range Interpretation [...] 0.00 K/mm3 0.0-0.1 N NRBC#) GLUCOSE BEDSIDE [id number] 20:14:00 Test Item Value Reference Range Interpretation Comments GLUCOSE BEDSIDE TESTING (test code 173 MG/DL 60-99 H = GLUBED) [id number] 18:39:00 Test Item Value Reference Range Interpretation Comments TROPONIN-I (test code = TROPI) 0.041 NG/ML 0.012-0.033 H B-TYPE NATRIURETIC [id number] 16:46:00 Test Item Value Reference Range Interpretation Comments B-TYPE NATRIURETIC PEPTIDE (test 336.0 PG/ML 0-100 H code = BNP) ADD ONSpecimen comments: Can add to blood in [id number] 16:38:00 Test Item Value Reference Range Interpretation Comments TROPONIN-I (test code = TROPI) 0.042 NG/ML 0.012-0.033 H COMPREHENSIVE METABOLIC [id number] 13:48:00 Test Item Value Reference Range Interpretation [...] UNITS/L 38-126 N (test code = ALKP) [id number] 13:48:00 Test Item Value Reference Range Interpretation Comments PHOSPHOROUS (test code = PHOS) 3.6 MG/DL 2.5-4.5 N [id number] 13:48:00 Test Item Value Reference Range Interpretation Comments MAGNESIUM (test code = MAG) 2.1 MG/DL 1.6-2.3 N COMPREHENSIVE METABOLIC [id number] 13:39:00 Test Item Value Reference Range Interpretation [...] PHOSPHATASE UNITS/L 38-126 (test code = ALKP) [id number] 13:39:00 Test Item Value Reference Range Interpretation Comments PHOSPHOROUS (test code = PHOS) MG/DL 2.5-4.5 [id number] 13:39:00 Test Item Value Reference Range Interpretation Comments MAGNESIUM (test code = MAG) MG/DL 1.6-2.3 COMPREHENSIVE METABOLIC [id number] 13:37:00 Test Item Value Reference Range Interpretation [...] PHOSPHATASE (test code = UNITS/L 38-126 ALKP) [id number] 13:37:00 Test Item Value Reference Range Interpretation Comments PHOSPHOROUS (test code = PHOS) MG/DL 2.5-4.5 [id number] 13:37:00 Test Item Value Reference Range Interpretation Comments MAGNESIUM (test code = MAG) MG/DL 1.6-2.3 - XR CHEST [id number] 13:36:00 Patient Name: BREA GILES Unit No: [id number] EXAMS: CPT CODE: [id number] XR CHEST 1V 11984 Chest Radiograph History: pain Comparison: July 02, [...] Technologist: Matt [place] RT(R) Transcrpt Date/Tm/Trnsp: 07/17/2019 (5934) t.PMT Orig Print D/T: S: 07/17/2019 (1470) [facility] NAME: BREA GILES [address] [address] PHYS: [place] [address] : 1945 AGE: 73 SEX: F LOC: ZNildaERS PHONE #: [phone] EXAM DATE: 07/17/2019 STATUS: PRE ER FAX #: [phone] RADIOLOGY NO: PAGE 1 Signed ReportPROTHROMBIN [id number] 13:35:00 Test Item Value Reference Range Interpretation [...] myocar dial infarction. 2.0 - 3.0 3. 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 3.0 - 4.5 PTT [id number] 13:35:00 Test Item Value Reference Range Interpretation Comments PTT ACTIVATED (test code = APTT) 31.5 SECONDS 22.0-33.0 N CBC W/AUTO [id number] 13:34:00 Test Item Value Reference Range Interpretation [...] 0.00 K/mm3 0.0-0.1 N NRBC#) TROPONIN I [id number] 13:16:00 Test Item Value Reference Range Interpretation Comments TROPONIN I RAPID (test code = 0.04 NG/ML 0.00-0.05 N TROPIRAP) GLUCOSE BEDSIDE [id number] 17:02:00 Test Item Value Reference Range Interpretation Comments GLUCOSE BEDSIDE TESTING (test code 232 MG/DL 60-99 H = GLUBED) BUN [id number] 16:53:00 Test Item Value Reference Range Interpretation Comments BLOOD UREA NITROGEN 63 MG/DL 7-17 H (test code = BUN) GLOMERULAR FILTRATION 34 Report ing units: RATE (test code = GFR) ml/mi n/1.73 m2 (Modified MDRD Formula)Referen ce Range: > or = 6 0 ml/min/1.73 m2 CREATININE (test code 1.50 MG/DL 0.52-1.04 H = CREAT) ENTER RACE; UGLUCOSE BEDSIDE [id number] 11:52:00 Test Item Value Reference Range Interpretation Comments GLUCOSE BEDSIDE TESTING (test code 149 MG/DL 60-99 H = GLUBED) GLUCOSE BEDSIDE [id number] 10:27:00 Test Item Value Reference Range Interpretation Comments GLUCOSE BEDSIDE TESTING (test code 145 MG/DL 60-99 H = GLUBED) GLUCOSE BEDSIDE [id number] 21:19:00 Test Item Value Reference Range Interpretation Comments GLUCOSE BEDSIDE TESTING (test code 162 MG/DL 60-99 H = GLUBED) GLUCOSE BEDSIDE [id number] 16:42:00 Test Item Value Reference Range Interpretation Comments GLUCOSE BEDSIDE TESTING (test code 228 MG/DL 60-99 H = GLUBED) GLUCOSE BEDSIDE [id number] 11:58:00 Test Item Value Reference Range Interpretation Comments GLUCOSE BEDSIDE TESTING (test code 228 MG/DL 60-99 H = GLUBED) GLUCOSE BEDSIDE [id number] 07:45:00 Test Item Value Reference Range Interpretation Comments GLUCOSE BEDSIDE TESTING (test code 129 MG/DL 60-99 H = GLUBED) GLUCOSE BEDSIDE [id number] 20:35:00 Test Item Value Reference Range Interpretation Comments GLUCOSE BEDSIDE TESTING (test code 223 MG/DL 60-99 H = GLUBED) GLUCOSE BEDSIDE [id number] 16:27:00 Test Item Value Reference Range Interpretation Comments GLUCOSE BEDSIDE TESTING (test code 222 MG/DL 60-99 H = GLUBED) GLUCOSE BEDSIDE [id number] 13:00:00 Test Item Value Reference Range Interpretation Comments GLUCOSE BEDSIDE TESTING (test code 212 MG/DL 60-99 H = GLUBED) GLUCOSE BEDSIDE [id number] 10:50:00 Test Item Value Reference Range Interpretation Comments GLUCOSE BEDSIDE TESTING (test code 131 MG/DL 60-99 H = GLUBED) GLUCOSE BEDSIDE [id number] 10:50:00 Test Item Value Reference Range Interpretation Comments GLUCOSE BEDSIDE TESTING (test code 177 MG/DL 60-99 H = GLUBED) GLUCOSE BEDSIDE [id number] 20:29:00 Test Item Value Reference Range Interpretation Comments GLUCOSE BEDSIDE TESTING (test code 247 MG/DL 60-99 H = GLUBED) GLUCOSE BEDSIDE [id number] 16:22:00 Test Item Value Reference Range Interpretation Comments GLUCOSE BEDSIDE TESTING (test code 182 MG/DL 60-99 H = GLUBED) GLUCOSE BEDSIDE [id number] 11:20:00 Test Item Value Reference Range Interpretation Comments GLUCOSE BEDSIDE TESTING (test code 176 MG/DL 60-99 H = GLUBED) GLUCOSE BEDSIDE [id number] 20:14:00 Test Item Value Reference Range Interpretation Comments GLUCOSE BEDSIDE TESTING (test code 187 MG/DL 60-99 H = GLUBED) GLUCOSE BEDSIDE [id number] 16:20:00 Test Item Value Reference Range Interpretation Comments GLUCOSE BEDSIDE TESTING 200 MG/DL 60-99 H Noti fied Nurse~ (test code = GLUBED) GLUCOSE BEDSIDE [id number] 12:15:00 Test Item Value Reference Range Interpretation Comments GLUCOSE BEDSIDE TESTING (test code 180 MG/DL 60-99 H = GLUBED) GLUCOSE BEDSIDE [id number] 10:59:00 Test Item Value Reference Range Interpretation Comments GLUCOSE BEDSIDE TESTING (test code 230 MG/DL 60-99 H = GLUBED) GLUCOSE BEDSIDE [id number] 10:58:00 Test Item Value Reference Range Interpretation Comments GLUCOSE BEDSIDE TESTING (test code 226 MG/DL 60-99 H = GLUBED) GLUCOSE BEDSIDE [id number] 07:20:00 Test Item Value Reference Range Interpretation Comments GLUCOSE BEDSIDE TESTING (test code 146 MG/DL 60-99 H = GLUBED) GLUCOSE BEDSIDE [id number] 20:40:00 Test Item Value Reference Range Interpretation Comments GLUCOSE BEDSIDE TESTING (test code 214 MG/DL 60-99 H = GLUBED) GLUCOSE BEDSIDE [id number] 17:09:00 Test Item Value Reference Range Interpretation Comments GLUCOSE BEDSIDE TESTING (test code 236 MG/DL 60-99 H = GLUBED) GLUCOSE BEDSIDE [id number] 12:08:00 Test Item Value Reference Range Interpretation Comments GLUCOSE BEDSIDE TESTING (test code 161 MG/DL 60-99 H = GLUBED) GLUCOSE BEDSIDE [id number] 09:16:00 Test Item Value Reference Range Interpretation Comments GLUCOSE BEDSIDE TESTING (test code 138 MG/DL 60-99 H = GLUBED) GLUCOSE BEDSIDE [id number] 17:05:00 Test Item Value Reference Range Interpretation Comments GLUCOSE BEDSIDE TESTING (test code 245 MG/DL 60-99 H = GLUBED) GLUCOSE BEDSIDE [id number] 12:32:00 Test Item Value Reference Range Interpretation Comments GLUCOSE BEDSIDE TESTING (test code 131 MG/DL 60-99 H = GLUBED) GLUCOSE BEDSIDE [id number] 07:29:00 Test Item Value Reference Range Interpretation Comments GLUCOSE BEDSIDE TESTING (test code 134 MG/DL 60-99 H = GLUBED) GLUCOSE BEDSIDE [id number] 02:24:00 Test Item Value Reference Range Interpretation Comments GLUCOSE BEDSIDE TESTING (test code 149 MG/DL 60-99 H = GLUBED) GLUCOSE BEDSIDE [id number] 16:14:00 Test Item Value Reference Range Interpretation Comments GLUCOSE BEDSIDE TESTING 186 MG/DL 60-99 H Noti fied Nurse~ (test code = GLUBED) GLUCOSE BEDSIDE [id number] 12:52:00 Test Item Value Reference Range Interpretation Comments GLUCOSE BEDSIDE TESTING (test code 160 MG/DL 60-99 H = GLUBED) GLUCOSE BEDSIDE [id number] 07:30:00 Test Item Value Reference Range Interpretation Comments GLUCOSE BEDSIDE TESTING (test code 142 MG/DL 60-99 H = GLUBED) COMPREHENSIVE METABOLIC [id number] 06:56:00 Test Item Value Reference Range Interpretation [...] UNITS/L 38-126 N (test code = ALKP) [id number] 06:56:00 Test Item Value Reference Range Interpretation Comments MAGNESIUM (test code = MAG) 1.9 MG/DL 1.6-2.3 N COMPREHENSIVE METABOLIC [id number] 06:52:00 Test Item Value Reference Range Interpretation [...] PHOSPHATASE (test code = UNITS/L 38-126 ALKP) [id number] 06:52:00 Test Item Value Reference Range Interpretation Comments MAGNESIUM (test code = MAG) MG/DL 1.6-2.3 COMPREHENSIVE METABOLIC [id number] 06:51:00 Test Item Value Reference Range Interpretation [...] PHOSPHATASE (test code = UNITS/L 38-126 ALKP) [id number] 06:51:00 Test Item Value Reference Range Interpretation Comments MAGNESIUM (test code = MAG) MG/DL 1.6-2.3 CBC W/AUTO [id number] 06:25:00 Test Item Value Reference Range Interpretation [...] 0.00 K/mm3 0.0-0.1 N NRBC#) GLUCOSE BEDSIDE [id number] 19:59:00 Test Item Value Reference Range Interpretation Comments GLUCOSE BEDSIDE TESTING 184 MG/DL 60-99 H Noti fied Nurse~ (test code = GLUBED) GLUCOSE BEDSIDE [id number] 16:28:00 Test Item Value Reference Range Interpretation Comments GLUCOSE BEDSIDE TESTING 245 MG/DL 60-99 H Noti fied Nurse~ (test code = GLUBED) GLUCOSE BEDSIDE [id number] 13:02:00 Test Item Value Reference Range Interpretation Comments GLUCOSE BEDSIDE TESTING (test code 204 MG/DL 60-99 H = GLUBED) GLUCOSE BEDSIDE [id number] 07:00:00 Test Item Value Reference Range Interpretation Comments GLUCOSE BEDSIDE TESTING (test code 151 MG/DL 60-99 H = GLUBED) GLUCOSE BEDSIDE [id number] 06:33:00 Test Item Value Reference Range Interpretation Comments GLUCOSE BEDSIDE TESTING 236 MG/DL 60-99 H Noti fied Nurse~ (test code = GLUBED) GLUCOSE BEDSIDE [id number] 12:07:00 Test Item Value Reference Range Interpretation Comments GLUCOSE BEDSIDE TESTING (test code 167 MG/DL 60-99 H = GLUBED) GLUCOSE BEDSIDE [id number] 08:20:00 Test Item Value Reference Range Interpretation Comments GLUCOSE BEDSIDE TESTING (test code 140 MG/DL 60-99 H = GLUBED) BASIC METABOLIC [id number] 06:11:00 Test Item Value Reference Range Interpretation [...] code = MG/DL 8.7-9.7 CA) BASIC METABOLIC [id number] 06:11:00 Test Item Value Reference Range Interpretation [...] 9.5 MG/DL 8.4-10.2 N CA) BASIC METABOLIC [id number] 06:08:00 Test Item Value Reference Range Interpretation [...] code = CA) MG/DL 8.7-9.7 GLUCOSE BEDSIDE [id number] 20:04:00 Test Item Value Reference Range Interpretation Comments GLUCOSE BEDSIDE TESTING (test code 226 MG/DL 60-99 H = GLUBED) GLUCOSE BEDSIDE [id number] 16:25:00 Test Item Value Reference Range Interpretation Comments GLUCOSE BEDSIDE TESTING (test code 270 MG/DL 60-99 H = GLUBED) GLUCOSE BEDSIDE [id number] 13:02:00 Test Item Value Reference Range Interpretation Comments GLUCOSE BEDSIDE TESTING (test code 137 MG/DL 60-99 H = GLUBED) GLUCOSE BEDSIDE [id number] 12:09:00 Test Item Value Reference Range Interpretation Comments GLUCOSE BEDSIDE TESTING (test code 220 MG/DL 60-99 H = GLUBED) - CTA CHEST FOR [id number] 10:59:00 Patient Name: BREA GILES Unit No: [id number] EXAMS: CPT CODE: [id number] [place] [address] CTA Chest with contrast Location: B2 Clinical [...] Viviana Thompson MD Technologist: Ian Aguilar, RT(R)(CT)(MRI); [facility] CTDI: DLP: Trnscrpt: 07/03/2019 (1059) t.SDR.RB24 ARON Gonzalez NAME: BREA GILES [id number] PHYS: [place] [address] : 1945 AGE: 73 SEX: F LOC: Z.365 A PHONE #:[phone] EXAM DATE: 07/03/2019 STATUS: ADM IN FAX #: [phone] RAD #: D/C DT PAGE 1 Signed Report Patient Name: BREA GILES Unit No: [id number] EXAMS: CPT CODE: [id number] [place] [address] (Continued) Orig Print D/T: S: 07/03/2019 (1102) ARON Gonzalez NAME: BREA GILES [address] [address] PHYS: [place] [address] : 1945 AGE: 73 SEX: F LOC: Z.365 A PHONE #: [phone] EXAM DATE: 07/03/2019 STATUS: ADM IN FAX #: [phone] RAD #: D/C DT PAGE 2 Signed ReportBASIC METABOLIC [id number] 06:20:00 Test Item Value Reference Range Interpretation [...] 9.6 MG/DL 8.4-10.2 N CA) CBC W/AUTO [id number] 05:42:00 Test Item Value Reference Range Interpretation [...] = 0.00 K/mm3 0.0-0.1 N NRBC#) DIFFERENTIAL [id number] 05:42:00 Test Item Value Reference Range Interpretation Comments RBC MORPHOLOGY REQUIRED (test code = RBCM) PLATELET ESTIMATE (test code = PLTEST) ADEQUATE PLATELET MORPHOLOGY (test code = NORMAL PLTMORPH) CBC W/AUTO [id number] 05:42:00 Test Item Value Reference Range Interpretation [...] = 0.00 K/mm3 0.0-0.1 N NRBC#) DIFFERENTIAL [id number] 05:42:00 Test Item Value Reference Range Interpretation Comments RBC MORPHOLOGY REQUIRED (test code = RBCM) PLATELET ESTIMATE (test code = PLTEST) ADEQUATE PLATELET MORPHOLOGY (test code = NORMAL PLTMORPH) GLUCOSE BEDSIDE [id number] 20:44:00 Test Item Value Reference Range Interpretation Comments GLUCOSE BEDSIDE TESTING (test code 191 MG/DL 60-99 H = GLUBED) GLUCOSE BEDSIDE [id number] 19:09:00 Test Item Value Reference Range Interpretation Comments GLUCOSE BEDSIDE TESTING (test code 132 MG/DL 60-99 H = GLUBED) - XR CHEST [id number] 18:49:00 Patient Name: BREA GILES Unit No: [id number] EXAMS: CPT CODE: [id number] XR CHEST 1V [id number] LOCATION CODE: H 31 CHEST AP HISTORY: [...] congestion appearing stable toslightly improved at 1849 Reported and signed by: Guerline Hamlin MD CC: Nick Cabrera; Alexandr Hawkins; Viviana Thompson MD Technologist: Pavithra Maloney, RT(R) Transcrpt Date/Tm/Trnsp: 07/02/2019 (1848) [id number] Orig Print D/T: S: 07/02/2019 (1851) [facility] NAME: BREA GILES [id number] [address] PHYS: [place] [address] : 1945 AGE: 73 SEX: F LOC: Z.410 A PHONE #: [phone] EXAM DATE: 07/02/2019 STATUS: ADM IN FAX #: [phone] RADIOLOGY NO: PAGE 1 Signed [id number] 18:23:00 Test Item Value Reference Range Interpretation Comments ACT-ISTAT (test code = ACTI) 103 SEC 74-137 N GLUCOSE BEDSIDE [id number] 07:48:00 Test Item Value Reference Range Interpretation Comments GLUCOSE BEDSIDE TESTING (test code 160 MG/DL 60-99 H = GLUBED) GLUCOSE BEDSIDE [id number] 07:16:00 Test Item Value Reference Range Interpretation Comments GLUCOSE BEDSIDE TESTING (test code 134 MG/DL 60-99 H = GLUBED) GLUCOSE BEDSIDE [id number] 20:51:00 Test Item Value Reference Range Interpretation Comments GLUCOSE BEDSIDE TESTING (test code 142 MG/DL 60-99 H = GLUBED) GLUCOSE BEDSIDE [id number] 16:16:00 Test Item Value Reference Range Interpretation Comments GLUCOSE BEDSIDE TESTING (test code 156 MG/DL 60-99 H = GLUBED) GLUCOSE BEDSIDE [id number] 16:16:00 Test Item Value Reference Range Interpretation Comments GLUCOSE BEDSIDE TESTING (test code 184 MG/DL 60-99 H = GLUBED) BASIC METABOLIC [id number] 13:13:00 Test Item Value Reference Range Interpretation [...] 9.3 MG/DL 8.4-10.2 N CA) BASIC METABOLIC [id number] 13:02:00 Test Item Value Reference Range Interpretation [...] code = MG/DL 8.7-9.7 CA) BASIC METABOLIC [id number] 13:00:00 Test Item Value Reference Range Interpretation [...] code = CA) MG/DL 8.7-9.7 BASIC METABOLIC [id number] 12:59:00 Test Item Value Reference Range Interpretation [...] code = CA) MG/DL 8.7-9.7 GLUCOSE BEDSIDE [id number] 06:32:00 Test Item Value Reference Range Interpretation Comments GLUCOSE BEDSIDE TESTING (test code 144 MG/DL 60-99 H = GLUBED) GLUCOSE BEDSIDE [id number] 22:00:00 Test Item Value Reference Range Interpretation Comments GLUCOSE BEDSIDE TESTING (test code 154 MG/DL 60-99 H = GLUBED) GLUCOSE BEDSIDE [id number] 16:57:00 Test Item Value Reference Range Interpretation Comments GLUCOSE BEDSIDE TESTING (test code 124 MG/DL 60-99 H = GLUBED) GLUCOSE BEDSIDE [id number] 16:57:00 Test Item Value Reference Range Interpretation Comments GLUCOSE BEDSIDE TESTING (test code 189 MG/DL 60-99 H = GLUBED) GLUCOSE BEDSIDE [id number] 06:59:00 Test Item Value Reference Range Interpretation Comments GLUCOSE BEDSIDE TESTING (test code 119 MG/DL 60-99 H = GLUBED) GLUCOSE BEDSIDE [id number] 21:39:00 Test Item Value Reference Range Interpretation Comments GLUCOSE BEDSIDE TESTING (test code 172 MG/DL 60-99 H = GLUBED) GLUCOSE BEDSIDE [id number] 12:36:00 Test Item Value Reference Range Interpretation Comments GLUCOSE BEDSIDE TESTING (test code 155 MG/DL 60-99 H = GLUBED) - XR CHEST [id number] 09:12:00 Patient Name: BREA GILES Unit No: [id number] EXAMS: CPT CODE: [id number] XR CHEST 1V 86024 EXAM: Portable chest one view. Location code:J9 HISTORY: CHF COMPARISON: 06/25/2019 Findings: Thecardiac silhouette is enlarged and stable in size. Stable prominent interstitial lung markings. No large pleural effusion or pneumothorax. The bones are intact. IMPRESSION: Stable findings of CHF. at 0912 Reported and signed by: Gil Pope M.D. CC: Nick Cabrera; Alexandr Hawkins; Viviana Thompson MD Technologist: Crystal Cleveland, RT (R) Transcrpt Date/Tm/Trnsp: 06/29/2019 (911) [email or web address] Orig Print D/T: S: 06/29/2019 (15) [facility] NAME: BREA GILES [id number] PHYS: [place] [address] : 1945 AGE:73 SEX: F LOC: [id number] PHONE #: [phone] EXAM DATE: 06/29/2019 STATUS: ADM IN FAX #: [phone] RADIOLOGY NO: PAGE 1 Signed ReportBASIC METABOLIC [id number] 07:40:00 Test Item Value Reference Range Interpretation [...] 8.8 MG/DL 8.4-10.2 N CA) BASIC METABOLIC [id number] 07:27:00 Test Item Value Reference Range Interpretation [...] code = CA) MG/DL 8.7-9.7 CBC W/AUTO [id number] 07:12:00 Test Item Value Reference Range Interpretation [...] = 0.00 K/mm3 0.0-0.1 N NRBC#) DIFFERENTIAL [id number] 07:12:00 Test Item Value Reference Range Interpretation Comments RBC MORPHOLOGY REQUIRED (test code = RBCM) PLATELET ESTIMATE (test code = PLTEST) ADEQUATE PLATELET MORPHOLOGY (test code = NORMAL PLTMORPH) CBC W/AUTO [id number] 07:12:00 Test Item Value Reference Range Interpretation [...] = 0.00 K/mm3 0.0-0.1 N NRBC#) DIFFERENTIAL [id number] 07:12:00 Test Item Value Reference Range Interpretation Comments RBC MORPHOLOGY REQUIRED (test code = RBCM) PLATELET ESTIMATE (test code = PLTEST) ADEQUATE PLATELET MORPHOLOGY (test code = NORMAL PLTMORPH) GLUCOSE BEDSIDE [id number] 06:19:00 Test Item Value Reference Range Interpretation Comments GLUCOSE BEDSIDE TESTING (test code 129 MG/DL 60-99 H = GLUBED) GLUCOSE BEDSIDE [id number] 20:30:00 Test Item Value Reference Range Interpretation Comments GLUCOSE BEDSIDE TESTING (test code 130 MG/DL 60-99 H = GLUBED) GLUCOSE BEDSIDE [id number] 18:01:00 Test Item Value Reference Range Interpretation Comments GLUCOSE BEDSIDE TESTING (test code 150 MG/DL 60-99 H = GLUBED) GLUCOSE BEDSIDE [id number] 13:32:00 Test Item Value Reference Range Interpretation Comments GLUCOSE BEDSIDE TESTING (test code 147 MG/DL 60-99 H = GLUBED) GLUCOSE BEDSIDE [id number] 07:06:00 Test Item Value Reference Range Interpretation Comments GLUCOSE BEDSIDE TESTING (test code 154 MG/DL 60-99 H = GLUBED) GLUCOSE BEDSIDE [id number] 20:58:00 Test Item Value Reference Range Interpretation Comments GLUCOSE BEDSIDE TESTING (test code 198 MG/DL 60-99 H = GLUBED) GLUCOSE BEDSIDE [id number] 16:23:00 Test Item Value Reference Range Interpretation Comments GLUCOSE BEDSIDE TESTING (test code 131 MG/DL 60-99 H = GLUBED) GLUCOSE BEDSIDE [id number] 14:29:00 Test Item Value Reference Range Interpretation Comments GLUCOSE BEDSIDE TESTING (test code 164 MG/DL 60-99 H = GLUBED) GLUCOSE BEDSIDE [id number] 14:29:00 Test Item Value Reference Range Interpretation Comments GLUCOSE BEDSIDE TESTING (test code 152 MG/DL 60-99 H = GLUBED) GLUCOSE BEDSIDE [id number] 14:29:00 Test Item Value Reference Range Interpretation Comments GLUCOSE BEDSIDE TESTING (test code 209 MG/DL 60-99 H = GLUBED) GLUCOSE BEDSIDE [id number] 14:29:00 Test Item Value Reference Range Interpretation Comments GLUCOSE BEDSIDE TESTING (test code 161 MG/DL 60-99 H = GLUBED) GLUCOSE BEDSIDE [id number] 06:27:00 Test Item Value Reference Range Interpretation Comments GLUCOSE BEDSIDE TESTING (test code 144 MG/DL 60-99 H = GLUBED) BASIC METABOLIC [id number] 06:25:00 Test Item Value Reference Range Interpretation [...] 9.0 MG/DL 8.4-10.2 N CA) BASIC METABOLIC [id number] 06:19:00 Test Item Value Reference Range Interpretation [...] code = MG/DL 8.7-9.7 CA) BASIC METABOLIC [id number] 06:17:00 Test Item Value Reference Range Interpretation [...] code = CA) MG/DL 8.7-9.7 GLUCOSE BEDSIDE [id number] 21:09:00 Test Item Value Reference Range Interpretation Comments GLUCOSE BEDSIDE TESTING (test code 236 MG/DL 60-99 H = GLUBED) BASIC METABOLIC [id number] 06:05:00 Test Item Value Reference Range Interpretation [...] 8.9 MG/DL 8.4-10.2 N CA) BASIC METABOLIC [id number] 05:46:00 Test Item Value Reference Range Interpretation [...] code = CA) MG/DL 8.7-9.7 BASIC METABOLIC [id number] 05:45:00 Test Item Value Reference Range Interpretation [...] code = CA) MG/DL 8.7-9.7 CBC W/AUTO [id number] 05:24:00 Test Item Value Reference Range Interpretation [...] = 0.02 K/mm3 0.0-0.1 N NRBC#) CPK-MB [id number] 00:47:00 Test Item Value Reference Range Interpretation Comments CREATINE KINASE (CK) (test code = 42 UNITS/L 30-135 N CK) CKMB (test code = CKMBT) 0.93 NG/ML 0.0-5.6 N CKMB INDEX (test code = CKMBI) 2.2 % 4.0-4.4 L CPK-MB [id number] 00:45:00 Test Item Value Reference Range Interpretation Comments CREATINE KINASE (CK) (test code = 42 UNITS/L 30-135 N CK) CKMB (test code = CKMBT) NG/ML 0.0-5.6 CKMB INDEX (test code = CKMBI) % 4.0-4.4 CPK-MB [id number] 17:46:00 Test Item Value Reference Range Interpretation Comments CREATINE KINASE (CK) (test code = 41 UNITS/L 30-135 CK) CKMB (test code = CKMBT) 0.98 NG/ML 0.0-5.6 N CKMB INDEX (test code = CKMBI) 2.4 % 4.0-4.4 L GLUCOSE BEDSIDE [id number] 16:58:00 Test Item Value Reference Range Interpretation Comments GLUCOSE BEDSIDE TESTING (test code 154 MG/DL 60-99 H = GLUBED) [id number] 14:02:00 Test Item Value Reference Range Interpretation Comments TROPONIN-I (test code = TROPI) 0.091 NG/ML 0.012-0.033 H GLUCOSE BEDSIDE [id number] 11:33:00 Test Item Value Reference Range Interpretation Comments GLUCOSE BEDSIDE TESTING (test code 202 MG/DL 60-99 H = GLUBED) BASIC METABOLIC [id number] 09:27:00 Test Item Value Reference Range Interpretation [...] code = 8.9 MG/DL 8.4-10.2 N CA) [id number] 09:27:00 Test Item Value Reference Range Interpretation Comments PHOSPHOROUS (test code = PHOS) 4.2 MG/DL 2.5-4.5 N [id number] 09:27:00 Test Item Value Reference Range Interpretation Comments MAGNESIUM (test code = MAG) 2.0 MG/DL 1.6-2.3 N CPK-MB [id number] 09:27:00 Test Item Value Reference Range Interpretation Comments CREATINE KINASE (CK) (test code = 28 UNITS/L 30-135 L CK) CKMB (test code = CKMBT) 1.00 NG/ML 0.0-5.6 N CKMB INDEX (test code = CKMBI) 3.6 % 4.0-4.4 L BASIC METABOLIC [id number] 09:18:00 Test Item Value Reference Range Interpretation [...] code = 8.9 MG/DL 8.4-10.2 N CA) [id number] 09:18:00 Test Item Value Reference Range Interpretation Comments PHOSPHOROUS (test code = PHOS) 4.2 MG/DL 2.5-4.5 N [id number] 09:18:00 Test Item Value Reference Range Interpretation Comments MAGNESIUM (test code = MAG) MG/DL 1.6-2.3 CPK-MB [id number] 09:18:00 Test Item Value Reference Range Interpretation Comments CREATINE KINASE (CK) (test code = 28 UNITS/L 30-135 L CK) CKMB (test code = CKMBT) NG/ML 0.0-5.6 CKMB INDEX (test code = CKMBI) % 4.0-4.4 BASIC METABOLIC [id number] 09:18:00 Test Item Value Reference Range Interpretation [...] code = 8.9 MG/DL 8.4-10.2 N CA) [id number] 09:18:00 Test Item Value Reference Range Interpretation Comments PHOSPHOROUS (test code = PHOS) 4.2 MG/DL 2.5-4.5 N [id number] 09:18:00 Test Item Value Reference Range Interpretation Comments MAGNESIUM (test code = MAG) 2.0 MG/DL 1.6-2.3 N CPK-MB [id number] 09:18:00 Test Item Value Reference Range Interpretation Comments CREATINE KINASE (CK) (test code = 28 UNITS/L 30-135 L CK) CKMB (test code = CKMBT) NG/ML 0.0-5.6 CKMB INDEX (test code = CKMBI) % 4.0-4.4 BASIC METABOLIC [id number] 09:17:00 Test Item Value Reference Range Interpretation [...] CALCIUM (test code = MG/DL 8.7-9.7 CA) [id number] 09:17:00 Test Item Value Reference Range Interpretation Comments PHOSPHOROUS (test code = PHOS) MG/DL 2.5-4.5 [id number] 09:17:00 Test Item Value Reference Range Interpretation Comments MAGNESIUM (test code = MAG) MG/DL 1.6-2.3 CPK-MB [id number] 09:17:00 Test Item Value Reference Range Interpretation Comments CREATINE KINASE (CK) (test code = UNITS/L 30-135 CK) CKMB (test code = CKMBT) NG/ML 0.0-5.6 CKMB INDEX (test code = CKMBI) % 4.0-4.4 BASIC METABOLIC [id number] 09:15:00 Test Item Value Reference Range Interpretation [...] CALCIUM (test code = CA) MG/DL 8.7-9.7 [id number] 09:15:00 Test Item Value Reference Range Interpretation Comments PHOSPHOROUS (test code = PHOS) MG/DL 2.5-4.5 [id number] 09:15:00 Test Item Value Reference Range Interpretation Comments MAGNESIUM (test code = MAG) MG/DL 1.6-2.3 CPK-MB [id number] 09:15:00 Test Item Value Reference Range Interpretation Comments CREATINE KINASE (CK) (test code = UNITS/L 30-135 CK) CKMB (test code = CKMBT) NG/ML 0.0-5.6 CKMB INDEX (test code = CKMBI) % 4.0-4.4 BASIC METABOLIC [id number] 09:14:00 Test Item Value Reference Range Interpretation [...] CALCIUM (test code = CA) MG/DL 8.7-9.7 [id number] 09:14:00 Test Item Value Reference Range Interpretation Comments PHOSPHOROUS (test code = PHOS) MG/DL 2.5-4.5 [id number] 09:14:00 Test Item Value Reference Range Interpretation Comments MAGNESIUM (test code = MAG) MG/DL 1.6-2.3 CPK-MB [id number] 09:14:00 Test Item Value Reference Range Interpretation Comments CREATINE KINASE (CK) (test code = UNITS/L 30-135 CK) CKMB (test code = CKMBT) NG/ML 0.0-5.6 CKMB INDEX (test code = CKMBI) % 4.0-4.4 CBC W/AUTO [id number] 08:55:00 Test Item Value Reference Range Interpretation [...] = 0.00 K/mm3 0.0-0.1 N NRBC#) DIFFERENTIAL [id number] 08:55:00 Test Item Value Reference Range Interpretation Comments RBC MORPHOLOGY REQUIRED (test code = RBCM) PLATELET ESTIMATE (test code = PLTEST) ADEQUATE PLATELET MORPHOLOGY (test code = NORMAL PLTMORPH) CBC W/AUTO [id number] 08:55:00 Test Item Value Reference Range Interpretation [...] = 0.00 K/mm3 0.0-0.1 N NRBC#) DIFFERENTIAL [id number] 08:55:00 Test Item Value Reference Range Interpretation Comments RBC MORPHOLOGY REQUIRED (test code = RBCM) PLATELET ESTIMATE (test code = PLTEST) ADEQUATE PLATELET MORPHOLOGY (test code = NORMAL PLTMORPH) - XR CHEST [id number] 08:06:00 Patient Name: BREA GILES Unit No: [id number] EXAMS: CPT CODE: [id number] XR CHEST 1V 55505 Single View Chest. Location: B2 Clinical Indication: [...] Alan Pruitt, RT(R) Transcrpt Date/Tm/Trnsp: 06/25/2019 (0806) [id number] Orig Print D/T: S: 06/25/2019 (0810) [facility] NAME: BREA GILES [id number] [address] PHYS: [place] [address] : 1945 AGE: 73 SEX: F LOC: [id number] PHONE #: [phone] EXAM DATE: 06/25/2019 STATUS: ADM IN FAX #: [phone] RADIOLOGY NO: PAGE 1 Signed ReportGLUCOSE BEDSIDE [id number] 08:00:00 Test Item Value Reference Range Interpretation Comments GLUCOSE BEDSIDE TESTING (test code 155 MG/DL 60-99 H = GLUBED) COMPREHENSIVE METABOLIC [id number] 07:19:00 Test Item Value Reference Range Interpretation [...] H (test code = ALKP) COMPREHENSIVE METABOLIC [id number] 07:18:00 Test Item Value Reference Range Interpretation [...] 38-126 (test code = ALKP) COMPREHENSIVE METABOLIC [id number] 07:16:00 Test Item Value Reference Range Interpretation [...] code = UNITS/L 38-126 ALKP) COMPREHENSIVE METABOLIC [id number] 07:15:00 Test Item Value Reference Range Interpretation [...] code = UNITS/L 38-126 ALKP) LIPOPROTEIN LDL [id number] 05:23:00 Test Item Value Reference Range Interpretation Comments LIPOPROTEIN LDL DIRECT 84 mg/dL 100-129 L ===== (test code = LDLDIR) ======= ==Refe rence Interval: mg/dL mmol/L--------- ------ ------ ------ --Optimal <100 <2.6Near/above optimal 100-129 2.6-3.3Borderli ne High 130-159 3.4-4.1High 160 -189 4.1-4.9Very Hig h >=190 >=4.9==== ===== This LDL result is a direct measurement.=== ====== [id number] 05:23:00 Test Item Value Reference Range Interpretation Comments TROPONIN-I (test 0.127 NG/ML 0.012-0.033 HH CALLED TO [facility] O icu & code = TROPI) READBACK ON AT 0500 BY Maddison Ramirez LIPOPROTEIN LDL [id number] 05:02:00 Test Item Value Reference Range Interpretation Comments LIPOPROTEIN LDL DIRECT (test code = mg/dL 100-129 LDLDIR) [id number] 05:02:00 Test Item Value Reference Range Interpretation Comments TROPONIN-I (test 0.127 NG/ML 0.012-0.033 HH CALLED TO Venkat raygozay O icu & code = TROPI) READBACK ON AT 0500 BY Maddison Ramirez GLUCOSE BEDSIDE [id number] 03:17:00 Test Item Value Reference Range Interpretation Comments GLUCOSE BEDSIDE TESTING (test code 177 MG/DL 60-99 H = GLUBED)
[2023-08-21 09:47] LABS: Absolute Lymphocytes (CBC) 0.8 K/uL (0.7-4.9); Hematocrit 35.5 % (36.0-45.0); Lymphocytes % 7.6 % (15.3-44.8); MCV 88.4 fL (80-100); MPV 6.6 fL (7.6-11.3); Platelets 352 thou/uL (152-406); RBC Red Blood Cell Count 4.02 M/uL (3.86-4.86)
[2023-08-21] MEDS ORDERED: NA CHLORIDE 0.9% 1,000 ML ONE (09:49)
[2023-08-21] MEDS ORDERED: ONDANSETRON 4 MG/2 ML VIAL ONE (09:49)
[2023-08-21] MEDS ORDERED: FENTANYL CITR 100 MCG/2 ML ONE (09:49)
--- NOTE | 2023-08-21 09:53 | RAD REPORT ---
EXAM DESCRIPTION: RAD - Chest Single View - 08/21/2023 9:46 am CLINICAL HISTORY: CHEST PAIN Chest pain. COMPARISON: <Comparisons> FINDINGS: Portable technique limits examination quality. Moderate pulmonary edema is seen. The heart is enlarged in size. Multi lead pacer/defibrillator devic e. Sternotomy wires present. IMPRESSION: Moderate CHF.
[2023-08-21] MEDS ORDERED: MAGNESIUM SULFATE 1 gm IVPB 1 GM/100 ML BAG IV ONE (09:58)
[2023-08-21 10:01] LABS: Bilirubin Direct 0.2 mg/dL (0-0.2); Bilirubin Indirect, Calculated 0.3 mg/dL (0.2-0.8); Bilirubin Total 0.5 mg/dL (0.2-1.0); Magnesium 2.1 mg/dL (1.6-2.4); Potassium 3.4 mEq/L (3.5-5.1); Protein, Total 6.5 g/dL (6.4-8.2); Troponin High Sensitivity 11.6 pg/mL (<58.9)
--- NOTE | 2023-08-21 10:08 | RAD REPORT ---
EXAM DESCRIPTION: CT - Head C Spine Cap Wo Con - 08/21/2023 9:51 am CLINICAL HISTORY: Trauma, head and neck injury. Chest, abdomen and pelvis pain. Pain;Trauma COMPARISON: Head Brain Wo Cont dated 07/18/2023 TECHNIQUE: CT head without contrast. CT cervical spine without contrast with coronal and sagittal reformatted images. CT chest, abdomen and pelvis without contrast with coronal and sagittal reformatted images of the spi ne. All CT scans are performed using dose optimization technique as appropriate and may include automated exposure control or mA/KV adjustment according to patient size. FINDINGS: CT HEAD WITHOUT CONTRAST: Along the posterior falx there is 8 mm thick subdural hematoma present extending inferiorly. This douglas sures 4.2 cm in craniocaudad dimension. No significant mass effect or midline shift caused by this. M oderate brain atrophy is present. No hydrocephalus. The paranasal sinuses and mastoids are clear. The calvarium is intact. 1 cm thick posterosuperior sca lp hematoma. CT CERVICAL SPINE WITHOUT CONTRAST: No fracture or subluxation. Moderate lower cervical degenerative changes. The prevertebral soft tissu es are normal in thickness. CT CHEST, ABDOMEN, PELVIS WITHOUT CONTRAST: NOTE: Lack of contrast is a significant limitation in the assessment of trauma related findings. Spec ifically, solid organ, vascular and bowel evaluation is significantly limited. Mild linear atelectasis is present both lung bases. Small bilateral pleural effusions.The heart is en larged with a pacemaker noted. Prior sternotomy is noted. Sigmoid diverticulosis coli without diverticulitis. Significant stool is present throughout the colon . Focal fat containing ventral hernias are present. No concerning pelvic findings. Moderate lumbar degenerative changes are present. No acute fracture seen. IMPRESSION: 8 mm thick posterior falx subdural hematoma is present. No significant midline shift or other acute abnormality seen.
--- NOTE | 2023-08-21 10:19 | ER ---
Nurse's Notes [facility] Name: Jelly Garcia Age: 77 yrs Sex: Female : 1945 Arrival Date: 08/21/2023 Time: 08:59 Bed 6 Private MD: Diagnosis: Fall on same level, unspecified;Traumatic subdural hemorrhage;Combined systolic (congestive) and diastolic (congestive) heart failure;Hypokalemia;Obesity, unspecified Presentation: 08/21 09:07 Chief complaint: EMS states: tripped on a towel while using bathroom, hit her head, no iw LOC , on blood thinners , recent quad bypass. 09:07 Acuity: BRIAN 2 iw 09:07 Method Of Arrival: EMS: [facility] iw 09:11 Care prior to arrival: None. Mechanism of Injury: Fall Trauma event details: Injury iw occurred in the [facility]. 11:02 Coronavirus screen: Vaccine status: Patient reports receiving the 2nd dose of the covid tl4 vaccine. Client denies travel out of the [place] in the last 14 days. At this time, the client does not indicate any symptoms associated with coronavirus-19. Ebola Screen: Patient negative for fever greater than or equal to 101.5 degrees Fahrenheit, and additional compatible Ebola Virus Disease symptoms Patient denies exposure to infectious person. Patient denies travel to an Ebola-affected area in the 21 days before illness onset. No symptoms or risks identified at this time. Initial Sepsis Screen: Does the patient meet any 2 criteria? No. Patient's initial sepsis screen is negative. Does the patient have a suspected source of infection? No. Patient's initial sepsis screen is negative. Risk Assessment: Do you want to hurt yourself or someone else? Patient reports no desire to harm self or others. Onset of symptoms was August 21, 2023. Historical: - Allergies: 09:12 No Known Allergies; iw - Home Meds: 09:12 pantoprazole 40 mg oral tablet, delayed release (enteric coated) daily [Active]; iw Movantik 25 mg oral tablet daily [Active]; amiodarone 200 mg Oral tablet daily [Active]; Eliquis 5 mg oral tablet 2 times per day [Active]; aspirin 81 mg Oral capsule daily [Active]; carvedilol 6.25 mg oral tablet 2 times per day [Active]; Plavix 75 mg Oral tablet daily [Active]; cyanocobalamin (vitamin B-12) 1,000 mcg oral capsule daily [Active]; Farxiga 10 mg oral tablet daily [Active]; dicyclomine 10 mg Oral capsule 3 times per day [Active]; Cymbalta 60 mg oral capsule,delayed release (e.c.) 2 times per day [Active]; ferrous sulfate 325 mg (65 mg iron) Oral tablet daily [Active]; Lasix 40 mg Oral tablet 2 times per day [Active]; rosuvastatin 20 mg oral tablet daily [Active]; Entresto 24-26 mg oral tablet 2 times per day [Active]; docusate sodium 50 mg Oral capsule 2 times per day [Active]; Xalatan 0.005 % Opht drops daily [Active]; temazepam 7.5 mg Oral capsule every day at bedtime [Active]; methocarbamol 750 mg Oral tablet 3 times per day [Active]; tramadol 50 mg Oral tablet every 6 hours [Active]; - PMHx: 09:12 Atrial Fib; Diabetes - NIDDM; Fibromyalgia; Hypertension; Temporal Arteritis; iw - Immunization history:: Adult Immunizations unknown. - Social history:: Smoking status: unknown. Screenin:29 [facility] ED Fall Risk Assessment (Adult) History of falling in the last 3 months, iw including since admission Yes- single mechanical fall (1 pt). Abuse screen: Denies threats or abuse. Denies injuries from another. Nutritional screening: No deficits noted. Nutritional screening: No deficits noted. Tuberculosis screening: No symptoms or risk factors identified. Assessment: 09:28 General: Appears uncomfortable, Behavior is cooperative. Pain: Complains of pain in iw back. Neuro: Level of Consciousness is awake, alert, obeys commands, Oriented to person, place, time, situation, Moves all extremities. Cardiovascular: Patient's skin is warm and dry. Respiratory: Respiratory effort is even, unlabored, Respiratory pattern is regular. GI: Abdomen is round non-distended, Abd is soft and non tender X 4 quads. Derm: Skin is intact, Skin is pale, Skin temperature is warm. Musculoskeletal: Range of motion: intact in all extremities. 10:46 Reassessment: report given to SAQIB Acevedo at [facility] ER. iw 11:40 Reassessment: No changes from previously documented assessment. EMS here to transfer tl4 patient to [facility]. Vital Signs: 09:12 BP 141 / 69; Pulse 60; Resp 16; Temp 97.1(TE); Pulse Ox 100% on R/A; iw 09:30 BP 160 / 66; Pulse 62; Resp 20; Pulse Ox 99% ; Pain 8/10; tl4 10:00 BP 163 / 65; Pulse 63; Resp 19; Pulse Ox 98% ; Pain 4/10; tl4 10:30 BP 158 / 61; Pulse 64; Resp 23; Pulse Ox 98% ; tl4 11:00 BP 156 / 62; Pulse 62; Resp 21; Pulse Ox 99% ; tl4 11:30 BP 148 / 71; Pulse 61; Resp 19; Pulse Ox 98% ; Pain 5/10; tl4 09:30 Pain Scale: Adult tl4 10:00 Pain Scale: Adult tl4 11:30 Pain Scale: Adult tl4 ED Course: 09:01 Patient arrived in ED. iw 09:04 Bipin Webber MD is Attending Physician. yaima 09:09 Triage completed. iw 09:15 Kalia Loya is Primary Nurse. tl4 09:18 Arm band placed on. iw 09:29 Patient has correct armband on for positive identification. Bed in low position. Side iw rails up X2. Client placed on continuous cardiac and pulse oximetry monitoring. NIBP monitoring applied. 09:30 Inserted saline lock: 22 gauge in right forearm, using aseptic technique. iw 09:48 XRAY Chest (1 view) In Process Unspecified. EDMS 09:52 CT Traumagram (Head C Spine CAP wo con) In Process Unspecified. EDMS 10:[address] Webber with Melina Castro Rn from the [facility] eb [facility]. 10:14 Dr. Webber connected with Dr. Irene the auto parts salesperson at [facility] ED. eb 10:15 administrative approval given to Dr. Webber by Melian Castro Rn/ patient has been eb accepted to [facility] ED/ Dr. Tomer Irene has accepted the patient in transfer/ report to be called to [phone]. 11:00 Inserted saline lock: 20 gauge in left antecubital area, using aseptic technique. tl4 11:02 No provider procedures requiring assistance completed. tl4 11:03 Provided Education on: CT, IV medications, transfer process. tl4 11:57 Patient transferred, IV remains in place. iw Administered Medications: 09:42 Drug: fentaNYL (PF) IVP 25 mcg IVP once Route: IVP; Infused Over: 2 mins; Site: right tl4 forearm; 11:00 Follow up: Response: No adverse reaction; Pain is decreased tl4 09:42 Drug: fentaNYL (PF) IVP 25 mcg IVP once Route: IVP; Infused Over: 2 mins; Site: right tl4 forearm; 11:01 Follow up: Response: No adverse reaction; Pain is decreased tl4 09:42 Drug: Ondansetron IVP 4 mg IVP once; over 2 minutes Route: IVP; Site: right forearm; tl4 11:01 Follow up: Response: No adverse reaction tl4 10:09 Not Given (Duplicate Order): ns 0.9% 1000 ml IV at 125 ml/hr continuous yaima 10:17 Drug: Magnesium Sulfate IVPB 1 grams IVPB once over 1 hrs Route: IVPB; Rate: 100 ml/hr; tl4 Infused Over: 1 hrs; Site: right forearm; Delivery: Primary tubing; 11:20 Follow up: IV Status: Completed infusion tl4 11:29 Follow up: Response: No adverse reaction tl4 10:18 Drug: NS 0.9% with KCl IV 20 mEq/L 1000 ml IV at 100 ml/hr continuous Route: IV; Rate: tl4 100 ml/hr; Site: right forearm; Delivery: Primary tubing; 11:42 Follow up: IV Status: Infusion continued upon transfer tl4 11:43 Follow up: Response: No adverse reaction tl4 10:58 Drug: Furosemide IVP 40 mg IVP once; give over 2 minutes Route: IVP; Infused Over: 5 tl4 mins; Site: left antecubital; 11:18 Follow up: Response: No adverse reaction tl4 10:59 Drug: Potassium PO Effervescent Tablet 25 mEq PO once; dissolve in 4 ounces of water or tl4 juice Route: PO; 11:18 Follow up: Response: No adverse reaction tl4 10:59 Drug: Keppra IV 1000 mg IV at per protocol once Route: IV; Rate: per protocol; Infused tl4 Over: 15 mins; Site: left antecubital; 11:17 Follow up: Response: No adverse reaction; IV Status: Completed infusion tl4 Medication: 09:29 VIS not applicable for this client. iw Outcome: 10:18 ER care complete, transfer ordered by MD. erwin 11:57 Transferred by ground EMS [facility]. to [facility], Transfer form completed. iw X-rays sent w/ patient. 11:57 Condition: stable 11:57 Instructed on the need for transfer, 11:58 Patient left the ED. iw Signatures: Dispatcher [employer] EDBipin Gamez MD MD cha Williams, Irene, RN RN iw Nasreen Chaudhari Toni tl4 Corrections: (The following items were deleted from the chart) 12:58 11:57 Instructed on the need for admit, iw
--- NOTE | 2023-08-21 10:19 | EDPHYS ---
Physician Documentation [facility] Name: Jelly Garcia Age: 77 yrs Sex: Female : 1945 Arrival Date: 08/21/2023 Time: 08:59 Bed 6 Private MD: ED Physician Bipin Webber HPI: 08/21 09:20 This 77 yrs old Female presents to ER via EMS with complaints of Fall Injury. yaima 09:20 Details of fall: The patient fell from an upright position, while walking. Onset: The yaima symptoms/episode began/occurred just prior to arrival. Associated injuries: The patient sustained injury to the head, upper back injury. Severity of symptoms: At their worst the symptoms were mild, moderate, in the emergency department the symptoms are unchanged. The patient has experienced similar episodes in the past, a few times. Historical: - Allergies: 09:12 No Known Allergies; iw - Home Meds: 09:12 pantoprazole 40 mg oral tablet, delayed release (enteric coated) daily [Active]; iw Movantik 25 mg oral tablet daily [Active]; amiodarone 200 mg Oral tablet daily [Active]; Eliquis 5 mg oral tablet 2 times per day [Active]; aspirin 81 mg Oral capsule daily [Active]; carvedilol 6.25 mg oral tablet 2 times per day [Active]; Plavix 75 mg Oral tablet daily [Active]; cyanocobalamin (vitamin B-12) 1,000 mcg oral capsule daily [Active]; Farxiga 10 mg oral tablet daily [Active]; dicyclomine 10 mg Oral capsule 3 times per day [Active]; Cymbalta 60 mg oral capsule,delayed release (e.c.) 2 times per day [Active]; ferrous sulfate 325 mg (65 mg iron) Oral tablet daily [Active]; Lasix 40 mg Oral tablet 2 times per day [Active]; rosuvastatin 20 mg oral tablet daily [Active]; Entresto 24-26 mg oral tablet 2 times per day [Active]; docusate sodium 50 mg Oral capsule 2 times per day [Active]; Xalatan 0.005 % Opht drops daily [Active]; temazepam 7.5 mg Oral capsule every day at bedtime [Active]; methocarbamol 750 mg Oral tablet 3 times per day [Active]; tramadol 50 mg Oral tablet every 6 hours [Active]; - PMHx: 09:12 Atrial Fib; Diabetes - NIDDM; Fibromyalgia; Hypertension; Temporal Arteritis; iw - Immunization history:: Adult Immunizations unknown. - Social history:: Smoking status: unknown. ROS: 09:21 Constitutional: Negative for fever, chills, and weight loss, Eyes: Negative for injury, yaima pain, redness, and discharge, ENT: Negative for injury, pain, and discharge, Neck: Negative for injury, pain, and swelling, Cardiovascular: Negative for chest pain, palpitations, and edema, Respiratory: Negative for shortness of breath, cough, wheezing, and pleuritic chest pain, : Negative for injury, bleeding, discharge, and swelling, MS/Extremity: Negative for injury and deformity, Skin: Negative for injury, rash, and discoloration, Neuro: Negative for headache, weakness, numbness, tingling, and seizure, Psych: Negative for depression, anxiety, suicide ideation, homicidal ideation, and hallucinations, Allergy/Immunology: Negative for hives, rash, and allergies, Endocrine: Negative for neck swelling, polydipsia, polyuria, polyphagia, and marked weight changes, 09:21 Abdomen/GI: Positive for abdominal pain, of the right upper quadrant and left upper quadrant, ventral hernia, :21 Skin: Positive for pallor, Exam: : Constitutional: This is a well developed, well nourished patient who is awake, alert, yaima and in no acute distress. Head/Face: Normocephalic, atraumatic. Eyes: Pupils equal round and reactive to light, extra-ocular motions intact. Lids and lashes normal. Conjunctiva and sclera are non-icteric and not injected. Cornea within normal limits. Periorbital areas with no swelling, redness, or edema. ENT: Nares patent. No nasal discharge, no septal abnormalities noted. Tympanic membranes are normal and external auditory canals are clear. Oropharynx with no redness, swelling, or masses, exudates, or evidence of obstruction, uvula midline. Mucous membranes moist. Neck: Trachea midline, no thyromegaly or masses palpated, and no cervical lymphadenopathy. Supple, full range of motion without nuchal rigidity, or vertebral point tenderness. No Meningismus. Chest/axilla: Normal chest wall appearance and motion. Nontender with no deformity. No lesions are appreciated. Cardiovascular: Regular rate and rhythm with a normal S1 and S2. No gallops, murmurs, or rubs. Normal PMI, no JVD. No pulse deficits. Respiratory: Lungs have equal breath sounds bilaterally, clear to auscultation and percussion. No rales, rhonchi or wheezes noted. No increased work of breathing, no retractions or nasal flaring. Female : Normal external genitalia. MS/ Extremity: Pulses equal, no cyanosis. Neurovascular intact. Full, normal range of motion. Neuro: Awake and alert, GCS 15, oriented to person, place, time, and situation. Cranial nerves II-XII grossly intact. Motor strength 5/5 in all extremities. Sensory grossly intact. Cerebellar exam normal. Normal gait. Psych: Awake, alert, with orientation to person, place and time. Behavior, mood, and affect are within normal limits. 09:21 Abdomen/GI: Inspection: distension, that is moderate, Bowel sounds: normal, Palpation: moderate abdominal tenderness, in the umbilical area, Rectal exam: rectal tone normal, hemorrhoid(s), are not appreciated, mass, is not appreciated, swelling, is not appreciated, tenderness, is not appreciated, no gross blood. no melena, Liver: no appreciated palpable abnormalities, Hernia: noted in the paraumbilical area, tenderness, 09:30 ECG was reviewed by the Attending Physician. [facility] Vital Signs: 09:12 BP 141 / 69; Pulse 60; Resp 16; Temp 97.1(TE); Pulse Ox 100% on R/A; iw 09:30 BP 160 / 66; Pulse 62; Resp 20; Pulse Ox 99% ; Pain 8/10; tl4 10:00 BP 163 / 65; Pulse 63; Resp 19; Pulse Ox 98% ; Pain 4/10; tl4 10:30 BP 158 / 61; Pulse 64; Resp 23; Pulse Ox 98% ; tl4 11:00 BP 156 / 62; Pulse 62; Resp 21; Pulse Ox 99% ; tl4 11:30 BP 148 / 71; Pulse 61; Resp 19; Pulse Ox 98% ; Pain 5/10; tl4 09:30 Pain Scale: Adult tl4 10:00 Pain Scale: Adult tl4 11:30 Pain Scale: Adult tl4 MDM: 09:04 Patient medically screened. [facility] 09:23 Differential diagnosis: chronic back pain, Fracture Obesity Osteoporosis Pyelonephritis [facility] ruptured disc, Scoliosis sprain, vertebral fracture. Differential diagnosis: abrasion, closed head injury, contusion, fracture, laceration, multiple trauma, sprain, strain. Data reviewed: vital signs, nurses notes, EMS record, lab test result(s), EKG, radiologic studies, CT scan, plain films. Consideration of Admission/Observation Escalation of care including admission/observation considered. I considered the following discharge prescriptions or medication management in the emergency department Medications were administered in the Emergency Department. See MAR. Test considered but Not performed: MRI: no spinal mri. Care significantly affected by the following chronic conditions: Diabetes, Hypertension, Obesity, Chronic Kidney Disease, afib, recent cabg. 08/21 09:18 Order name: Basic Metabolic Panel [facility] 08/21 09:18 Order name: CBC with Diff; Complete Time: 10:08 [facility] 08/21 09:18 Order name: LFT's [facility] 08/21 09:18 Order name: Magnesium [facility] 08/21 09:18 Order name: NT PRO-BNP [facility] 08/21 09:18 Order name: PT-INR [facility] 08/21 09:18 Order name: Troponin HS [facility] 08/21 09:18 Order name: Lipase [facility] 08/21 09:18 Order name: XRAY Chest (1 view); Complete Time: 10:08 [facility] 08/21 09:18 Order name: CT Traumagram (Head C Spine CAP wo con); Complete Time: 10:18 [facility] 08/21 09:18 Order name: INCENTIVE SPIROMETRY [facility] 08/21 09:18 Order name: EKG; Complete Time: : [facility] 08/21 09:18 Order name: Cardiac monitoring; Complete Time: 09:29 [facility] 08/21 09:18 Order name: EKG - Nurse/Tech; Complete Time: 09:29 [facility] 08/21 09:18 Order name: IV Saline Lock; Complete Time: 09:50 [facility] 08/21 09:18 Order name: Labs collected and sent; Complete Time: 09:50 [facility] 08/21 09:18 Order name: O2 Per Protocol; Complete Time: 09:29 [facility] 08/21 09:18 Order name: O2 Sat Monitoring; Complete Time: 09:29 [facility] EC:30 Rate is 68 beats/min. Rhythm is regular. QRS [place] is Normal. [place] interval is normal. QRS yaima interval is normal. QT interval is normal. No Q waves. T waves are Normal. No ST changes noted. Clinical impression: Abnormal EKG without significant change and No evidence of ischemia. Interpreted by me. Reviewed by me. Administered Medications: 09:42 Drug: fentaNYL (PF) IVP 25 mcg IVP once Route: IVP; Infused Over: 2 mins; Site: right tl4 forearm; 11:00 Follow up: Response: No adverse reaction; Pain is decreased tl4 09:42 Drug: fentaNYL (PF) IVP 25 mcg IVP once Route: IVP; Infused Over: 2 mins; Site: right tl4 forearm; 11:01 Follow up: Response: No adverse reaction; Pain is decreased tl4 09:42 Drug: Ondansetron IVP 4 mg IVP once; over 2 minutes Route: IVP; Site: right forearm; tl4 11:01 Follow up: Response: No adverse reaction tl4 10:09 Not Given (Duplicate Order): ns 0.9% 1000 ml IV at 125 ml/hr continuous yaima 10:17 Drug: Magnesium Sulfate IVPB 1 grams IVPB once over 1 hrs Route: IVPB; Rate: 100 ml/hr; tl4 Infused Over: 1 hrs; Site: right forearm; Delivery: Primary tubing; 11:20 Follow up: IV Status: Completed infusion tl4 11:29 Follow up: Response: No adverse reaction tl4 10:18 Drug: NS 0.9% with KCl IV 20 mEq/L 1000 ml IV at 100 ml/hr continuous Route: IV; Rate: tl4 100 ml/hr; Site: right forearm; Delivery: Primary tubing; 11:42 Follow up: IV Status: Infusion continued upon transfer tl4 11:43 Follow up: Response: No adverse reaction tl4 10:58 Drug: Furosemide IVP 40 mg IVP once; give over 2 minutes Route: IVP; Infused Over: 5 tl4 mins; Site: left antecubital; 11:18 Follow up: Response: No adverse reaction tl4 10:59 Drug: Potassium PO Effervescent Tablet 25 mEq PO once; dissolve in 4 ounces of water or tl4 juice Route: PO; 11:18 Follow up: Response: No adverse reaction tl4 10:59 Drug: Keppra IV 1000 mg IV at per protocol once Route: IV; Rate: per protocol; Infused tl4 Over: 15 mins; Site: left antecubital; 11:17 Follow up: Response: No adverse reaction; IV Status: Completed infusion tl4 Disposition Summary: 08/21/23 10:18 Transfer Ordered Notes: Transfer Location: [facility] yaima Reason: Higher level of care yaima Condition: Fair yaima Problem: new yaima Symptoms: have improved yaima Accepting Physician: dr hernandez(08/21/23 11:58) iw Diagnosis - Fall on same level, unspecified yaima - Traumatic subdural hemorrhage yaima - Combined systolic (congestive) and diastolic (congestive) heart failure yaima - Hypokalemia yaima - Obesity, unspecified yaima Forms: - Medication Reconciliation Form yaima - SBAR form yaima Signatures: Dispatcher [employer] EDMS Bipin Webber MD MD cha Williams, Irene, RN RN iw Kalia Loya tl4 Corrections: (The following items were deleted from the chart) 11:58 10:18 dr mary erwin iw
[2023-08-21 10:27] LABS: Protime INR 1.57
[2023-08-21] MEDS ORDERED: POTASSIUM 25 MEQ EFFERV TAB ONE (10:37)
[2023-08-21] MEDS ORDERED: LEVETIRACETAM 500 MG/5 ML VIAL IV ONE (10:37)
[2023-08-21] MEDS ORDERED: FUROSEMIDE 20 MG/ 2ML VIAL ONE (10:37)
[2023-08-21] MEDS ORDERED: NS KCL 20MEQ 1,000 ML IV ONE (10:38)
[2023-08-21] MEDS ORDERED: NA CHLORIDE 0.9% 100 ML ONE (10:43)
[2023-08-21 12:25] VITALS: TEMP 97.1
[2023-08-21 12:32] VITALS: BP 148/71; O2SAT 98
--- NOTE | 2023-08-24 17:02 | EKG ---
Test Date: 2023-08-21 Test Time: 09:25:42 Tag Writer: TL MEASUREMENT RESULTS: Intervals: Rate: 68 ND: 136 QRSD: 156 QT: 576 QTc: 612 [place]: P: ND: 136 QRS: 97 T: -80 INTERPRETIVE STATEMENTS: Demand pacemaker, interpretation is based on intrinsic rhythm Sinus rhythm with premature ventricular complexes or fusion complexes with junctional escape complexes Nonspecific intraventricular block Marked T wave abnormality, consider inferior ischemia Marked T wave abnormality, consider anterolateral ischemia Abnormal ECG Compared to ECG 07/18/2023 14:56:20 Junctional escape complex(es) now present Fusion complex(es) now present Ventricular premature complex(es) now present T-wave abnormality now present Possible ischemia now present First degree AV block no longer present Myocardial infarct finding no longer present Electronically Signed On 08-24-23 16:54:18 TOP CLOSER by Mark Perez
== END 2023-08-21 11:58 | disposition short-term general hospital (02) ==
LOC: ER 08:59
DX: S06.5XAA Traumatic subdural hemorrhage with loss of consciousness status unknown, initial encounter (principal); W18.39XA Other fall on same level, initial encounter; I11.0 Hypertensive heart disease with heart failure; I50.40 Unspecified combined systolic (congestive) and diastolic (congestive) heart failure; E87.6 Hypokalemia; E66.9 Obesity, unspecified; E11.9 Type 2 diabetes mellitus without complications; I48.91 Unspecified atrial fibrillation; M79.7 Fibromyalgia; Z79.899 Other long term (current) drug therapy
CPT/HCPCS: 93005; 85025; 80048; 36415; 83735; 85610; 80076; 84484; 83690; 83880; 70450; 71250; 72125; 71045; 99285; J3475; J1953; J1940; J3010; J2405; J7030; J3480

== ENCOUNTER 2023-10-18 10:58 | Inpatient (IN) | payer OTHER ==
--- NOTE | 2023-10-18 11:34 | RAD REPORT ---
EXAM DESCRIPTION: CT - [id number] - 10/18/2023 11:25 am CLINICAL HISTORY: Trauma, head and neck injury. TRAUMA COMPARISON: <Comparisons> TECHNIQUE: Axial 5 mm thick images of the head were obtained. Axial 2 mm thick images of the cervical spine were obtained with sagittal and coronal reconstruction images generated and reviewed. All CT scans are performed using dose optimization technique as appropriate and may include automated exposure control or mA/KV adjustment according to patient size. FINDINGS: CT HEAD WITHOUT CONTRAST: No acute hemorrhage, hydrocephalus or extra-axial collection is identified.Mild generalized brain atr ophy is present with mild periventricular and deep white matter chronic microvascular ischemic change s.No areas of brain edema or midline shift. The paranasal sinuses and mastoids are clear.The calvarium is intact. CT CERVICAL SPINE WITHOUT CONTRAST: No fracture or subluxation.Mild lower cervical degenerative changes.No prevertebral soft tissues swel ling is identified. IMPRESSION: No acute intracranial or cervical spine findings. Mild lower cervical degenerative changes.
--- NOTE | 2023-10-18 12:01 | RAD REPORT ---
EXAM DESCRIPTION: RAD - Chest Single View - 10/18/2023 11:48 am CLINICAL HISTORY: CHEST PAIN Chest pain. COMPARISON: <Comparisons> FINDINGS: Portable technique limits examination quality. Mild linear atelectasis is present left mid lung. The lungs are otherwise clear. The heart is moderat brock enlarged with a multi lead pacer/ defibrillator device. Sternotomy wires present. IMPRESSION: No acute intrathoracic process suspected.
--- NOTE | 2023-10-18 12:02 | RAD REPORT ---
EXAM DESCRIPTION: RAD - Foot Left 3 View - 10/18/2023 11:48 am CLINICAL HISTORY: PAIN COMPARISON: <Comparisons> FINDINGS: The third toe appears dislocated at the level of the PIP joint. Diffuse osteopenia. Modera te soft tissue swelling is seen along the dorsum of the forefoot. Large calcaneal spurs.
--- NOTE | 2023-10-18 12:02 | RAD REPORT ---
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 Mild osteopenia. No acute fracture or dislocation. No suprapatellar joint effusion.
--- NOTE | 2023-10-18 12:04 | RAD REPORT ---
EXAM DESCRIPTION: RAD - Hip Left 2 View - 10/18/2023 11:48 am CLINICAL HISTORY: PAIN COMPARISON: <Comparisons> FINDINGS: The junction of the left femoral head and neck has an abnormal appearance particularly med ially. This is suspicious for a impacted fracture if the patient has left hip pain.
[2023-10-18 12:10] LABS: Absolute Lymphocytes (CBC) 0.2 K/uL (0.7-4.9); Hematocrit 37.2 % (36.0-45.0); MCV 83.2 fL (80-100); MPV 7.6 fL (7.6-11.3); Platelets 274 thou/uL (152-406); RBC Red Blood Cell Count 4.47 M/uL (3.86-4.86)
[2023-10-18] MEDS ORDERED: HYDROCODONE/APAP 10/325 TAB ONE (12:25)
[2023-10-18 12:28] LABS: Albumin 2.6 g/dL (3.4-5.0); Bilirubin Direct 0.2 mg/dL (0-0.2); Bilirubin Indirect, Calculated 0.5 mg/dL (0.2-0.8); Bilirubin Total 0.7 mg/dL (0.2-1.0); Magnesium 2.2 mg/dL (1.6-2.4); Potassium 4.1 mEq/L (3.5-5.1); Protein, Total 6.9 g/dL (6.4-8.2); Troponin High Sensitivity 31.5 pg/mL (<58.9)
[2023-10-18 12:58] LABS: Blood Morphology Comment NOT SEEN (NOT SEEN); Platelet Estimate ADEQ; White Blood Cell Scan OK (OK)
[2023-10-18] MEDS ORDERED: LIDOCAINE 1% MPF 5 ML VIAL ONE (13:23)
--- NOTE | 2023-10-18 13:34 | EDPHYS ---
Physician Documentation [facility] Name: Jelly Garcia Age: 78 yrs Sex: Female : 1945 Arrival Date: 10/18/2023 Time: 10:58 Bed 7 Private MD: ED Physician Toemr Fritz HPI: 10/18 13:30 This 78 yrs old Female presents to ER via EMS with complaints of Fall. rt 13:30 Patient presents to the ED following a fall. Patient states that she believes that it rt was in the bathroom when she was reaching for her walker, however, she is unclear if she lost consciousness or not. She states that she believes she hit her head. She does have a pain to the left foot, left knee, left hip. Denies other pain or other acute complaints, symptoms are moderate in severity, aching nature, nonradiating, no other aggravating or elevating factors.. Historical: - Allergies: 11:13 No Known Allergies; ph - PMHx: 11:13 Atrial Fib; Diabetes - NIDDM; Fibromyalgia; Hypertension; Temporal Arteritis; ph - Immunization history:: Adult Immunizations unknown. - Social history:: Smoking status: Patient denies any tobacco usage or history of. ROS: 13:30 Constitutional: Negative for fever, chills, and weight loss, Cardiovascular: Negative rt for chest pain, palpitations, and edema, Respiratory: Negative for shortness of breath, cough, wheezing, and pleuritic chest pain, Abdomen/GI: Negative for abdominal pain, nausea, vomiting, diarrhea, and constipation, Skin: Negative for injury, rash, and discoloration, Psych: Negative for depression, anxiety, suicide ideation, homicidal ideation, and hallucinations, 13:30 MS/extremity: Positive for injury or acute deformity, pain, Exam: 13:30 Constitutional: This is a well developed, well nourished patient who is awake, alert, rt and in no acute distress. Head/Face: Normocephalic, atraumatic. Chest/axilla: Normal chest wall appearance and motion. Nontender with no deformity. No lesions are appreciated. Cardiovascular: Regular rate and rhythm with a normal S1 and S2. No gallops, murmurs, or rubs. Normal PMI, no JVD. No pulse deficits. Respiratory: Lungs have equal breath sounds bilaterally, clear to auscultation and percussion. No rales, rhonchi or wheezes noted. No increased work of breathing, no retractions or nasal flaring. Abdomen/GI: Soft, non-tender, with normal bowel sounds. No distension or tympany. No guarding or rebound. No evidence of tenderness throughout. Skin: Warm, dry with normal turgor. Normal color with no rashes, no lesions, and no evidence of cellulitis. Neuro: Awake and alert, GCS 15, oriented to person, place, time, and situation. Cranial nerves II-XII grossly intact. Motor strength 5/5 in all extremities. Sensory grossly intact. Cerebellar exam normal. Normal gait. Psych: Awake, alert, with orientation to person, place and time. Behavior, mood, and affect are within normal limits. 13:30 ECG was reviewed by the Attending Physician. 13:30 Musculoskeletal/extremity: There is tenderness to the left hip, no deformities noted, tenderness to the left knee, minimal swelling appreciated, no deformities. The left middle toe is deviated laterally, consistent with dislocation. There is a 1.5 cm laceration to the fourth toe medially, no active bleeding.. Vital Signs: 11:11 BP 114 / 66; Pulse 73; Resp 18; Temp 96.9; Pulse Ox 94% on R/A; Weight 84.37 kg; Height ph 4 ft. 11 in. ; 11:30 BP 130 / 72; Pulse 68; Resp 15; Pulse Ox 96% on R/A; ko1 15:40 BP 105 / 49; Pulse 72; Resp 16; Pulse Ox 94% on R/A; ko1 11:11 Body Mass Index 37.57 (84.37 kg, 149.86 cm) ph Procedures: 13:34 Reduction: of the left third toe, using traction, Patient tolerated well. rt Laceration: 13:54 Wound Repair of 2cm ( 0.8in ) subcutaneous laceration to left fourth toe. Linear rt shaped.. Distal neuro/vascular/tendon intact. Anesthesia: Digital block administered with 2 mls of 1% lidocaine. Wound prep: Copious irrigation. Skin closed with 4 4-0 Prolene using simple sutures and sterile technique. Dressed with 4x4's. Patient tolerated well. MDM: 11:00 Patient medically screened. rt 13:54 Differential Diagnosis Syncope, chest disturbance, dysrhythmia, fracture, dislocation. rt Data reviewed: vital signs, nurses notes, lab test result(s), EKG, radiologic studies. Consideration of Admission/Observation Patient was admitted/placed on observation. Management of patient was discussed with the following: Hospitalist: Agrees to admit. Supervisor Cold Rolling: Discussed with Dr. Washburn with orthopedic surgery, requests CT scan be performed. I considered the following discharge prescriptions or medication management in the emergency department Medications were administered in the Emergency Department. See MAR. Independent interpretation of the following test(s) in the Emergency Department CT Scan: My interpretation is No intracranial hemorrhage seen on interpretation of CT scan images. Care significantly affected by the following chronic conditions: Diabetes. Counseling: I had a detailed discussion with the patient and/or guardian regarding the historical points, exam findings, and any diagnostic results supporting the discharge/admit diagnosis, lab results, radiology results, the need for further work-up and treatment in the hospital. 10/18 11:14 Order name: Basic Metabolic Panel; Complete Time: 12:37 rt 10/18 11:14 Order name: CBC with Diff; Complete Time: 12:59 rt 10/18 11:14 Order name: LFT's; Complete Time: 12:37 rt 10/18 11:14 Order name: Magnesium; Complete Time: 12:37 rt 10/18 11:14 Order name: NT PRO-BNP; Complete Time: 12:37 rt 10/18 11:14 Order name: Troponin HS; Complete Time: 12:37 rt 10/18 12:58 Order name: CBC Smear Scan; Complete Time: 12:59 EDMS 10/18 13:21 Order name: UAM; Complete Time: 15:59 rt 10/18 15:17 Order name: Blood Culture Adult (2) 10/18 15:17 Order name: Lactate w/ 2H reflex if indic.; Complete Time: 16:07 iw 10/18 15:17 Order name: CPK; Complete Time: 16:07 iw 10/18 11:14 Order name: XRAY Chest (1 view); Complete Time: 12:04 rt 10/18 11:14 Order name: Foot Left 3 View XRAY; Complete Time: 12:04 rt 10/18 11:14 Order name: Hip Left 2 View XRAY; Complete Time: 12:04 rt 10/18 11:14 Order name: CT Head C Spine; Complete Time: 12:04 rt 10/18 11:50 Order name: Knee Left 2 View; Complete Time: 12:04 EDMS 10/18 13:16 Order name: CT Pelvis wo Cont; Complete Time: 14:21 rt 10/18 11:14 Order name: EKG; Complete Time: 11:15 rt 10/18 11:14 Order name: Cardiac monitoring; Complete Time: 11:23 rt 10/18 11:14 Order name: EKG - Nurse/Tech; Complete Time: 13:08 rt 10/18 11:14 Order name: IV Saline Lock; Complete Time: 12:05 rt 10/18 11:14 Order name: Labs collected and sent; Complete Time: 12:05 rt 10/18 11:14 Order name: O2 Per Protocol; Complete Time: 11:18 rt 10/18 11:14 Order name: O2 Sat Monitoring; Complete Time: 11:18 rt 10/18 13:16 Order name: Dressing - Wound; Complete Time: 14:06 rt 10/18 13:16 Order name: Gloves, Sterile; Complete Time: 13:26 rt 10/18 13:16 Order name: Setup Suture Tray; Complete Time: 13:26 rt 10/18 14:31 Order name: Straight Cath; Complete Time: 15:35 la1 EC:30 Rate is 60 beats/min. Rhythm is regular, Paced with No ectopy. QRS [place] is Normal. [place] rt interval is normal. QRS interval is normal. QT interval is prolonged at 574 msec. No Q waves. T waves are Normal. No ST changes noted. Interpreted by me. Administered Medications: 12:26 Drug: Sloan PO 10 mg-325 mg 1 tabs PO once Route: PO; ko1 13:50 Drug: Lidocaine Infiltration (1 %) 5 ml 5 ml Infiltration once; to bedside Volume: 5 ko1 ml; Route: Infiltration; Disposition Summary: 10/18/23 13:33 Hospitalization Ordered Notes: Hospitalization Status: Inpatient Admission rt Provider: Eleazar Campos rt Location: Telemetry/MedSurg (Inpatient) rt Condition: Stable rt Problem: new rt Symptoms: have improved rt Bed/Room Type: Standard rt Room Assignment: 413(10/18/23 15:41) bd Diagnosis - Syncope rt - Acute kidney injury rt - Leukocytosis rt - Left femoral neck fracture rt - Dislocation of left third toe rt - Laceration to left fourth toe rt Discharge Instructions: - Discharge Summary Sheet ko1 Forms: - Medication Reconciliation Form rt - SBAR form rt - Leadership Thank You Letter rt Signatures: Dispatcher [employer] EDMS Rhianna Vickers Lee, PUBLIC RELATIONS WRITER-C PUBLIC RELATIONS WRITER-Cla1 Argentina Tapia, RN RN ph Thalia Marie RN RN ko1 Tomer Fritz MD MD rt Corrections: (The following items were deleted from the chart) 11:50 11:15 Knee Left 3 View+RAD.RAD.BRZ ordered. EDMS EDMS 15:41 13:33 rt bd
--- NOTE | 2023-10-18 13:34 | ER ---
Nurse's Notes [facility] Name: Jelly Garcia Age: 78 yrs Sex: Female : 1945 Arrival Date: 10/18/2023 Time: 10:58 Bed 7 Private MD: Diagnosis: Syncope;Acute kidney injury;Leukocytosis;Left femoral neck fracture;Dislocation of left third toe;Laceration to left fourth toe Presentation: 10/18 11:08 Chief complaint: EMS states: Pt was in restroom on toilet, reached for something and ph fell, landed in area between toilet and bathtub, c/o pain to bilateral legs, pain to R 3rd toe, toe is obviously deformed w/ possible open fracture. 11:11 Coronavirus screen: Vaccine status: Patient reports being unvaccinated. Ebola Screen: No symptoms or risks identified at this time. Initial Sepsis Screen: Does the patient meet any 2 criteria? No. Patient's initial sepsis screen is negative. Does the patient have a suspected source of infection? No. Patient's initial sepsis screen is negative. Risk Assessment: Do you want to hurt yourself or someone else? Patient reports no desire to harm self or others. Onset of symptoms was October 18, 2023. 11:11 Method Of Arrival: EMS: [facility] 11:11 Acuity: BRIAN 3 ph Triage Assessment: 11:14 General: Appears in no apparent distress. Behavior is calm, cooperative. Pain: ph Complains of pain in left foot. Neuro: Level of Consciousness is awake, alert, obeys commands, Oriented to person, place, time, situation. Cardiovascular: Capillary refill < 3 seconds in bilateral fingers Patient's skin is warm and dry. Respiratory: Airway is patent Respiratory effort is even, unlabored, Respiratory pattern is regular, symmetrical. Derm: Skin is fragile, is thin, Skin is pink, warm \T\ dry. Musculoskeletal: Range of motion: intact in all extremities. Injury Description: Bruise sustained to bilateral shins Deformity sustained to left third toe is dislocated, possible bone protruding. Historical: - Allergies: 11:13 No Known Allergies; ph - PMHx: 11:13 Atrial Fib; Diabetes - NIDDM; Fibromyalgia; Hypertension; Temporal Arteritis; ph - Immunization history:: Adult Immunizations unknown. - Social history:: Smoking status: Patient denies any tobacco usage or history of. Screenin:15 [facility] ED Fall Risk Assessment (Adult) History of falling in the last 3 months, ph including since admission Yes- fall prone (multiple falls) (3 pts) Confusion or Disorientation No (0 pts) Intoxicated or Sedated No (0 pts) Impaired Gait Yes (1 pt) Mobility Assist Device Used Yes (1 pt) Altered Elimination Yes (1 pt) Score/Fall Risk Level 3 or more points = High Risk Oriented to surroundings, Maintained a safe environment, Hourly rounding (assess needs \T\ fall precautionary measures) done, Used ambulatory aids as needed (educated on \T\ assisted with). Abuse screen: Denies threats or abuse. Denies injuries from another. Nutritional screening: No deficits noted. Tuberculosis screening: No symptoms or risk factors identified. Assessment: 11:30 General: Appears in no apparent distress. uncomfortable, Behavior is calm, cooperative, ko1 appropriate for age. Pain: Complains of pain in left third toe and left foot. Neuro: No deficits noted. Cardiovascular: No deficits noted. Respiratory: No deficits noted. GI: No deficits noted. : No deficits noted. EENT: No deficits noted. Derm: No deficits noted. Musculoskeletal: Bony deformity noted of left third toe. Injury Description: Deformity sustained to left third toe is displaced, Laceration sustained to left 4th toe is clean, not bleeding, a small amount of bleeding noted at this time. Vital Signs: 11:11 BP 114 / 66; Pulse 73; Resp 18; Temp 96.9; Pulse Ox 94% on R/A; Weight 84.37 kg; Height ph 4 ft. 11 in. ; 11:30 BP 130 / 72; Pulse 68; Resp 15; Pulse Ox 96% on R/A; ko1 15:40 BP 105 / 49; Pulse 72; Resp 16; Pulse Ox 94% on R/A; ko1 11:11 Body Mass Index 37.57 (84.37 kg, 149.86 cm) ph ED Course: 10:59 Patient arrived in ED. ko1 10:59 Tomer Fritz MD is Attending Physician. rt 11:06 Argentina Tapia, RN is Primary Nurse. ph 11:13 Triage completed. ph 11:15 Arm band placed on Patient placed in an exam room. ph 11:16 Patient has correct armband on for positive identification. Placed in gown. Bed in low ph position. Call light in reach. Side rails up X2. Pulse ox on. NIBP on. Door closed. Noise minimized. Warm blanket given. 11:24 CT Head C Spine In Process Unspecified. EDMS 11:30 Provided Education on: laceration repair and relocation of the 3rd toe. ko1 11:50 XRAY Chest (1 view) In Process Unspecified. EDMS 11:50 Foot Left 3 View XRAY In Process Unspecified. EDMS 11:50 Hip Left 2 View XRAY In Process Unspecified. EDMS 11:50 Knee Left 2 View In Process Unspecified. EDMS 12:04 Inserted saline lock: 20 gauge in right antecubital area, using aseptic technique. ls5 Blood collected. 12:05 CBC with Diff Sent. ls5 12:05 Basic Metabolic Panel Sent. ls5 12:05 LFT's Sent. ls5 12:05 Magnesium Sent. ls5 12:05 NT PRO-BNP Sent. ls5 12:05 Troponin HS Sent. ls5 13:25 CT Pelvis wo Cont In Process Unspecified. EDMS 13:33 Eleazar Campos MD is Hospitalizing Provider. rt 15:35 UAM Sent. ko1 15:35 CPK Sent. ko1 15:35 Lactate w/ 2H reflex if indic. Sent. ko1 15:35 Blood Culture Adult (2) Sent. ko1 15:44 Assist provider with laceration repair on left fourth toe using sutures. Set up tray. ko1 Performed by Tomer Fritz MD Patient tolerated well. Patient admitted, IV remains in place. 15:44 Straight cath inserted, using sterile technique, 14 Fr. Specimen obtained. Returned ko1 cloudy urine. Patient tolerated well. Administered Medications: 12:26 Drug: Morehouse PO 10 mg-325 mg 1 tabs PO once Route: PO; ko1 13:50 Drug: Lidocaine Infiltration (1 %) 5 ml 5 ml Infiltration once; to bedside Volume: 5 ko1 ml; Route: Infiltration; Medication: 11:30 VIS not applicable for this client. ko1 Outcome: 13:33 Decision to Hospitalize by Provider. rt 16:21 Admitted to Tele accompanied by tech, via stretcher, room 413, on monitor, with chart, ko1 Report called to SAQIB Arshad 16:21 Condition: stable 16:21 Instructed on the need for admit, 16:31 Patient left the ED. ko1 Signatures: Dispatcher [employer] Argentina Horton RN RN ph Thalia Marie RN RN ko1 Tomer Fritz MD MD rt Suarez, Lorenzo ls5 Corrections: (The following items were deleted from the chart) 11:13 11:08 Chief complaint: EMS states: Pt was in restroom on toilet, reached for something ph and fell, landed in area between toilet and bathtub ph
--- NOTE | 2023-10-18 14:17 | RAD REPORT ---
EXAM DESCRIPTION: CT - Pelvis Wo Cont - 10/18/2023 1:24 pm CLINICAL HISTORY: BLUNT TRAUMA COMPARISON: Head C Spine Mpr Wo Con dated 10/18/2023; Thoracic Spine Ap/Lat dated 10/17/2023; Head C S pine Cap Wo Con dated 08/21/2023 TECHNIQUE: Thin cut axial CT imaging of the abdomen and pelvis was performed without IV contrast. Mu ltiplanar reformats were generated and reviewed. All CT scans are performed using dose optimization technique as appropriate and may include automated exposure control or mA/KV adjustment according to patient size. FINDINGS: No acute osseous abnormality. Moderate left and mild right degenerative changes. Bilateral acetabular marginal spurring resulting in over coverage of the femoral heads more so on the left. Th is would contribute to femoroacetabular impingement. Nonspecific rounded ossific focus along the medi al inferior cortex of the right femoral head, may represent a loose body for ossification along the t endon. Bilateral SI joint degenerative changes with inferior marginal spurring worse on the left. At least moderate lower lumbar and lumbosacral joint degenerative changes with variable degrees of facet ankylosis. No dilated bowel loops or bowel wall thickening. Colonic diverticulosis. Incidentally noted right low er renal pole 3 cm cyst, stable. No free air, free fluid or inflammatory stranding. No hernia, mass o r bulky lymphadenopathy. The urinary bladder is without significant finding. No suspicious bony findings. IMPRESSION: No acute osseous abnormality. Degenerative changes as above.
--- NOTE | 2023-10-18 15:42 | P.HP ---
Certification for Inpatient Patient admitted to: Inpatient With expected LOS: >2 Midnights Patient will require the following post-hospital care: None Practitioner: I am a practitioner with admitting privileges, knowledge of patient current condition, hospital course, and medical plan of care. Services: Services provided to patient in accordance with Admission requirements found in Title 42 Section 412.3 of the Code of Federal Regulations Patient History Date of Service: 10/18/23 History of Present Illness: 78-year-old female with history of chronic diastolic congestive heart failure, CAD with previous CABG, chronic atrial fibrillation, diabetes mellitus type 2, hypertension, GERD, Parkinson's and recent spinal osteomyelitis presented to the Emergency Department for fall versus syncope. She was recently [facility] after a 10-day stay post admission at [facility] for subdural hematoma, spinal osteomyelitis. She completed a total of 6 weeks of IV antibiotics approximately 3 days ago with recent PICC line removal. She also had a CABG four-vessel in June 2023. Today patient reports after urinating she stood up in the toilet and felt very weak falling awkwardly to the ground in a tight area. She is not sure if she lost consciousness or not, she called out for help family found her awake, alert and called 911 for assistance. Patient was complaining of left hip pain, left knee pain as well as injury to the left foot/toes. Initially left hip x-ray was concerning for an impacted fracture although follow-up CT of the pelvis was performed which was negative for osseous abnormalities. X-ray of the left foot did show dislocation of the third toe at the level of the PIP joint which is since been reduced by ED staff, also had a laceration repaired of the toe. Labs were significant for marked leukocytosis with white blood cell count of 22.1 acute kidney injury creatinine 2.46 baseline around 1.4 glucose 181 BNP 7864 urinalysis is pending. Given patient's recent history of spinal osteomyelitis and frequent urinary tract infections blood cultures, lactate have been ordered and are pending as well as cath UA. Patient does report mild burning with urination, dark urine. Allergies No Known Allergies Allergy (Verified 09/19/19 00:35) Home Medications: Duloxetine [Cymbalta *] 60 mg PO BID 01/20/18 Omeprazole 40 mg PO DAILY 01/20/18 Carvedilol [Coreg] 25 mg PO BID 09/15/19 Latanoprost [Xalatan] 1 drop EACH EYE BEDTIME 09/15/19 Butalb/Acetaminophen/Caffeine [Twxxzy-Jumaylwk-Whdv 50-325-40] 1 each PO BIDP PRN 09/17/19 Tramadol HCl [Ultram] 50 mg PO BIDP PRN 09/17/19 Metformin ER [Glucophage ER*] 500 mg PO DAILY 01/21/23 Sacubitril/Valsartan [Entresto 97 mg-103 mg Tablet] 1 tab PO BID 01/21/23 Furosemide [Lasix] 20 mg PO DAILY PRN 30 Days #30 tab 01/25/23 Carvedilol [Coreg] 1 tab PO BID 06/06/23 Spironolactone 1 tab PO DAILY 06/06/23 Tocilizumab [Actemra Actpen] 1 IM SEECOM 06/06/23 - Past Medical/Surgical History Diabetic: Yes -: fibromyalgia -: Chronic diastolic congestive heart failure -: HTN -: brain tumor- 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 rebuilt surg -: fibroid sx -: hysterectomy -: Pacemaker, CABG 2022 Psychosocial/ Personal History: Lives at home alone, family frequently check on her, has home health - Family History Sister -: Heart disease, Hypertension Notes: additional sister with arthritis Father -: Cancer Notes: lung Mother -: Cancer Notes: colon - Social History Alcohol use: Yes CD- Drugs: No Caffeine use: Yes Place of Residence: Home Review of Systems 10-point ROS is otherwise unremarkable General: Weakness, Malaise Physical Examination - Physical Exam General: Alert, In no apparent distress, Oriented x3, Obese HEENT: Atraumatic, PERRLA, Mucous membr. moist/pink Neck: Supple, 2+ carotid pulse no bruit, No LAD Respiratory: Clear to auscultation bilaterally, Normal air movement Cardiovascular: No edema, Regular rate/rhythm, Normal S1 S2 Capillary refill: <2 Seconds Gastrointestinal: Normal bowel sounds, No tenderness Musculoskeletal: No tenderness Integumentary: No rashes Neurological: Normal speech, Normal strength at 5/5 x4 extr, Normal affect - Studies Laboratory Data (last 24 hrs) 10/18/23 10/18/23 12:00 12:00 WBC 22.10 H Hgb 11.9 L Hct 37.2 Plt Count 274 Sodium 130 L Potassium 4.1 BUN 58 H Creatinine 2.46 H Glucose 181 H Magnesium 2.2 Total Bilirubin 0.7 AST 10 L ALT 18 Alkaline Phosphatase 106 Assessment and Plan - Plan Assessment: Fall versus syncope Left hip pain, left third toe dislocation S/P closed reduction Leukocytosis-recently completed 6 weeks IV antibiotics for spinal osteomyelitis Dysuria Acute kidney injury Chronic atrial fibrillation Chronic diastolic congestive heart failure with AICD in place CAD with previous CABG Diabetes mellitus type 2 GERD Hypertension Fibromyalgia Parkinson's Seizure disorder Plan: Fall versus syncope Unclear if positive LOC CT head/C-spine negative for traumatic findings Monitor on telemetry, trend troponins PT consult Left hip pain, left third toe dislocation S/P closed reduction CT pelvis negative for fracture Orthopedics consult in place Toe dislocation reduced in ED PT consult Leukocytosis-recently completed 6 weeks IV antibiotics for spinal osteomyelitis Dysuria Completed course of IV antibiotics for 6 weeks approximately 3 to 4 days ago Was recently at [facility] when she was diagnosed with osteomyelitis Noted to have 20,000 WBC, no fever, tachycardia or tachypnea Blood cultures and lactate obtained Does report urinary symptoms, has also had multiple ESBL UTIs Will cover with broad-spectrum antibiotics vancomycin, Merrem for now Infectious disease consulted Cath UA pending Acute kidney injury Nephrology consulted Continue gentle IV fluids Chronic atrial fibrillation Chronic diastolic congestive heart failure with AICD in place CAD with previous CABG Obtain and continue medications as appropriate Denies chest pain or defibrillator shock/palpitations prior to event Diabetes mellitus type 2 ACHS Accu-Chek, sliding scale insulin GERD Hypertension Fibromyalgia Parkinson's Seizure disorder Continue medications DVT PPX: Heparin subcu Code status: Full Discharge Plan: Home Plan to discharge in: Greater than 2 days - Advance Directives Does patient have a Living Will: No Does patient have a Durable POA for Healthcare: No - Code Status/Comfort Care Code Status Assessed: Yes (Full code) Critical Care: No Time Spent Managing Pts Care (In Minutes): 70
[2023-10-18 15:54] LABS: Specific Gravity 1.014 (1.005-1.030); Urine Bacteria <20 /HPF (<20); Urine Bilirubin NEGATIVE (Negative); Urine Blood 3+ (OVER) (Negative); Urine Clarity Extremely Turbid (Clear); Urine Color Light-Orange (Yellow); Urine Crystals Unidentified Few /HPF (None Seen); Urine Glucose 3+ (Negative); Urine Mucus Slight /HPF (None Seen); Urine Protein 1+ (Negative); Urine RBC >50 /HPF (None Seen); Urine Urobilinogen Normal (Normal); Urine WBC Clump Many /HPF (None Seen); Urine pH 5.5 (5.0-7.0)
[2023-10-18] MEDS: INSULIN REGULAR (HUMAN) 100 UNIT/ML SQ SCH ×2 (16:30→19:56)
[2023-10-18] MEDS ORDERED: VANCOMYCIN 2 GM in NA CHLORIDE 0.9% 500 ML IVPB ONE (17:00)
[2023-10-18] MEDS: NA CHLORIDE 0.9% 1,000 ML IV SCH (17:18)
[2023-10-18] MEDS: HEPARIN 5000 UNIT/ML 1 ML VIAL SQ SCH (20:45)
[2023-10-18] MEDS: Meropenem 1,000 MG in NA CHLORIDE 0.9% 100 ML IV SCH (20:45)
--- NOTE | 2023-10-18 21:44 | RAD REPORT ---
EXAM DESCRIPTION: US - Renal Ultrasound-Complete - 10/18/2023 6:22 pm CLINICAL HISTORY: AUDREY COMPARISON: No comparisons TECHNIQUE: Sonographic grayscale and color flow images of the kidneys and bladder were obtained. FINDINGS: Both kidneys are normal in size, shape, and echotexture. The right kidney measures 9.5 cm in length. No hydronephrosis, focal mass, or echogenic calculi. Para pelvic right upper to midpole 1.4 cm anechoic cyst. The left kidney measures 9.2 cm in length. No hydronephrosis, focal mass, or echogenic calculi. Left lower pole 1.7 cm anechoic cyst, poorly evaluated due to shadowing ribs and bowel gas. The urinary bladder is decompressed limiting evaluation. IMPRESSION: Benign-appearing bilateral small renal cysts as above. No other sonographic renal abnorm ality. Urinary bladder is decompressed limiting evaluation.
[2023-10-18] MEDS: TRAMADOL HCL 50 MG TAB PO PRN (21:52)
[2023-10-18] MEDS: MELATONIN 5 MG TABLET PO PRN (21:53)
[2023-10-19] MEDS: NA CHLORIDE 0.9% 1,000 ML IV SCH ×2 (05:46→20:57)
[2023-10-19 06:16] LABS: Absolute Lymphocytes (CBC) 0.3 K/uL (0.7-4.9); Hematocrit 32.5 % (36.0-45.0); Lymphocytes % 1.8 % (15.3-44.8); MCV 82.7 fL (80-100); MPV 7.7 fL (7.6-11.3); Platelets 260 thou/uL (152-406); RBC Red Blood Cell Count 3.93 M/uL (3.86-4.86)
[2023-10-19 06:40] LABS: Potassium 3.8 mEq/L (3.5-5.1); Thyroid Stimulating Hormone 0.682 uIU/mL (0.358-3.740)
[2023-10-19] MEDS: INSULIN REGULAR (HUMAN) 100 UNIT/ML SQ SCH ×4 (07:30→20:51)
[2023-10-19] MEDS: Meropenem 1,000 MG in NA CHLORIDE 0.9% 100 ML IV SCH ×2 (08:20→20:50)
[2023-10-19] MEDS: HEPARIN 5000 UNIT/ML 1 ML VIAL SQ SCH ×2 (08:20→20:51)
[2023-10-19 08:29] LABS: Blood Morphology Comment NOT SEEN (NOT SEEN); Platelet Estimate ADEQ; Toxic Granulation 1+
--- NOTE | 2023-10-19 10:24 | P.CNS ---
Date of Consult: 10/19/23 Reason for Consult: recent spinal osteo, history MDR UTI History of Present Illness: Patient is a 78 yo female with a medical history as listed below who presented to the ED due to fall/syncope. Of note, she was recently hospitalized at [facility] for subdural hematoma and spinal osteomyelitis for which she was treated with 6 weeks of IV antibiotics. Patient was found to have leukocytosis and acute kidney injury. Blood cultures growing gram negative rods. She was started on empiric antibiotics. Infectious disease was consulted. Allergies No Known Allergies Allergy (Verified 09/19/19 00:35) Home medications list reviewed: Yes Home Medications: Duloxetine [Cymbalta *] 60 mg PO BID 01/20/18 Omeprazole 40 mg PO DAILY 01/20/18 Carvedilol [Coreg] 25 mg PO BID 09/15/19 Latanoprost [Xalatan] 1 drop EACH EYE BEDTIME 09/15/19 Butalb/Acetaminophen/Caffeine [Xnzgvf-Sckxlxdn-Zdjo 50-325-40] 1 each PO BIDP PRN 09/17/19 Tramadol HCl [Ultram] 50 mg PO BIDP PRN 09/17/19 Metformin ER [Glucophage ER*] 500 mg PO DAILY 01/21/23 Sacubitril/Valsartan [Entresto 97 mg-103 mg Tablet] 1 tab PO BID 01/21/23 Furosemide [Lasix] 20 mg PO DAILY PRN 30 Days #30 tab 01/25/23 Carvedilol [Coreg] 1 tab PO BID 06/06/23 Spironolactone 1 tab PO DAILY 06/06/23 Tocilizumab [Actemra Actpen] 1 IM SEECOM 06/06/23 - Past Medical/Surgical History Diabetic: Yes -: fibromyalgia -: Chronic diastolic congestive heart failure -: HTN -: brain tumor- 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 rebuilt surg -: fibroid sx -: hysterectomy -: Pacemaker, CABG 2022 Psychosocial/ Personal History: Lives at home alone, family frequently check on her, has home health - Family History Sister Medical History: Heart disease, Hypertension Notes: additional sister with arthritis Father Medical History: Cancer Notes: lung Mother Medical History: Cancer Notes: colon - Social History Smoking Status: Current every day smoker Alcohol use: No CD- Drugs: No Caffeine use: Yes Place of Residence: Home Review of Systems 10-point ROS is otherwise unremarkable Gastrointestinal: Other (lower abdominal/suprapubic pain) Genitourinary: Dysuria, Other (hesitancy) Physical Examination Temp Pulse Resp BP Pulse Ox 96.0 F L 65 18 130/58 L 92 10/19/23 08:00 10/19/23 08:00 10/19/23 08:00 10/19/23 08:00 10/19/23 08:00 General: Alert, In no apparent distress, Oriented x3 HEENT: Atraumatic, Normocephalic Neck: Supple Respiratory: Clear to auscultation bilaterally, Normal air movement, Other (on room air) Cardiovascular: Regular rate/rhythm, Edema (BLE 1+) Gastrointestinal: Normal bowel sounds, Soft and benign Integumentary: No rashes Neurological: Normal speech, Normal tone Urinary: Other (PureWick) Laboratory Data - Reviewed Microbiology Data - Reviewed Imagings Data: - Reviewed Conclusions/Impression: Problem List Gram-negative bacteremia secondary to acute urinary tract infection History of multi-drug resistant infection Acute kidney injury Atrial Fibrillation, chronic Diabetes Mellitus type II Chronic diastolic congestive heart failure Coronary Artery Disease Hx CABG Parkinson's Seizure Disorder Gram-negative Bacteremia secondary to Acute Urinary Tract Infection - Renal ultrasound 10/18: "Benign-appearing bilateral small renal cysts as above. No other sonographic renal abnormality. Urinary bladder is decompressed limiting evaluation" - Blood cultures 10/18: gram negative rods - Urine culture 10/18: 4+ gram negative rods - On meropenem (started 10/18) given history of ESBL - Leukocytosis with left shift (WBC 16.5) - Afebrile Recent history of Spinal Osteomyelitis - hospitalized at [facility] for subdural hematoma and spinal osteomyelitis - Completed 6 weeks IV antibiotics Recommendations - Bacteremia, UTI: Given history ESBL, continue on Meropenem for now. Will follow up with final blood and urine speciation/sensitivity results and adjust antibiotics as appropriate. - Strict blood glucose control - Monitor WBC and fever trends - Renally dose medications. Case discussed with Bill Jaquez
--- NOTE | 2023-10-19 11:35 | P.PN ---
Date of Service: 10/19/23 Subjective: No acute events overnight Feeling little better this morning ROS: 10 point ROS as noted above, otherwise negative Physical exam GEN: Alert, oriented, NAD HEENT: Normal conjunctiva, sclera anicteric CV: Regular rate and rhythm, no edema Pulm: Nonlabored respirations on room air ABD: Soft, nontender, nondistended MSK: No joint tenderness Integumentary: No rashes Neuro: Normal speech, normal affect Vitals reviewed Assessment: Fall versus syncope Left hip pain, left third toe dislocation S/P closed reduction Leukocytosis-recently completed 6 weeks IV antibiotics for spinal osteomyelitis Bacteremia-4/4 gram-negative rods Dysuria Acute kidney injury Chronic atrial fibrillation Chronic diastolic congestive heart failure with AICD in place CAD with previous CABG Diabetes mellitus type 2 GERD Hypertension Fibromyalgia Parkinson's Seizure disorder Plan: Fall versus syncope Unclear if positive LOC CT head/C-spine negative for traumatic findings Monitor on telemetry, troponins trended flat PT consult Left hip pain, left third toe dislocation S/P closed reduction CT pelvis negative for fracture Orthopedics consult in place Toe dislocation reduced in ED PT consult Leukocytosis-recently completed 6 weeks IV antibiotics for spinal osteomyelitis Dysuria Bacteremia-/ gram-negative rods Completed course of IV antibiotics for 6 weeks approximately 3 to 4 days ago Was recently at [facility] when she was diagnosed with osteomyelitis Noted to have 20,000 WBC, no fever, tachycardia or tachypnea Blood cultures and lactate obtained Does report urinary symptoms, has also had multiple ESBL UTIs Will cover with broad-spectrum antibiotics vancomycin, Merrem for now Infectious disease consulted Acute kidney injury Nephrology consulted Continue gentle IV fluids Chronic atrial fibrillation Chronic diastolic congestive heart failure with AICD in place CAD with previous CABG Obtain and continue medications as appropriate Denies chest pain or defibrillator shock/palpitations prior to event Diabetes mellitus type 2 ACHS Accu-Chek, sliding scale insulin GERD Hypertension Fibromyalgia Parkinson's Seizure disorder Continue medications DVT PPX: Heparin subcu Code status: Full Discharge Plan: Home Plan to discharge in: Greater than 2 days VTE: Code: Dispo: Time Spent Managing Pts Care (In Minutes): 35
--- NOTE | 2023-10-19 15:45 | CON ---
Date of Consultation: 10/19/2023 Reason For Consultation: Elevated BUN and creatinine, fluid management. History Of Present Illness: This is a 78-year-old female with significant past medical history of ch ronic kidney disease, followed up with Dr. Lynn, hypertension, hyperlipidemia, fibromyalgia, AFib, CA D, status post CABG, diabetes complicated with neuropathy and nephropathy, Parkinson disease, patient was in her regular state of health. Patient recently admitted with osteomyelitis, treated, discharg ed to rehab. The patient while sitting on the toilet, felt dizzy, and fell. We have been consulted for elevation in BUN and creatinine. Patient denied taking any nonsteroidal. No IV contrast. Past Medical History: Includes: 1.Fibromyalgia. 2.CAD complicated with congestive heart failure, preserved ejection fraction. 3.Hyperlipidemia. 4.Parkinson disease. 5.Diabetes complicated with neuropathy. 6.Chronic kidney disease, stage 3, baseline creatinine as of August 03.4 with GFR of 36. Past Surgical History: Include: 1.ICD. 2.Pacemaker. 3.Hysterectomy. 4.Hernia repair. 5.Cholecystectomy. Family History: Positive for CAD. Social History: Include active alcohol. Denied drugs abuse. Review of Systems: Head and Neck: No red eye. No ear pain. GI: No nausea. No vomiting. : No polyuria. No dysuria. No hematuria. 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 Respiratory: No shortness of breath. Cardiovascular: No chest pain. Has leg swelling. Endocrine: No polydipsia. Skin: No rash. Neuro: Has recurrent fall. Musculoskeletal: Has leg pain and low back pain. Physical Examination: Vital Signs: Blood pressure of 130/58, pulse of 65, afebrile. Chest: Clear to auscultation. Heart: S1, S2. Systolic murmur. Abdomen: Soft, nontender. Extremity: No edema. Neurologic: Alert. No focality. Laboratory Data: For the patient as by August; creatinine 1.3, GFR 36. Upon admission; sodium 129 , potassium 3.8, bicarb 22, BUN 29, creatinine 2.1, calcium 8.5. Chest x-ray: Cardiomegaly, no congestion. WBC 16.5, hemoglobin 10.6. Urinalysis: Positive for inf ection. Renal ultrasound was done, 9.5 and 9.2 with renal cyst 1.4 on the right, 1.7 on the left. Current Medications: The patient on, it includes meropenem, vancomycin, normal saline. Assessment And Plan: 1.Acute kidney injury secondary to prerenal, dehydration secondary to poor intake, superimposed with Entresto, ARB and metformin and spironolactone, on the recovery phase, looked to me still on the dry side. I am going to continue hydration. Obstructive uropathy has been ruled out. a.Continue hydration. b.Keep holding Entresto, keep holding metformin and spironolactone and we will follow up. 2.Hypertension, controlled, optimal. I am going to keep holding Entresto and Aldactone with the pre sence of acute kidney injury. 3.Hyponatremia, depletional. Continue IV fluid. 4.Urinary tract infection. Continue current antibiotic. I will follow up culture. 5.Congestive heart failure, currently normal volume, hold spironolactone. Thank you, Dr. Campos for allowing us to participate in the care of your patient. Time spent examining the patient [id number], reviewing data, lab and radiology, placing order, disc ussing the case with the patient, discussing the case with the garment steamer including hospitalist and nursing staff more than 75 minutes. JEMAL Voice ID: [id number] Report ID: [id number]
[2023-10-20 06:18] LABS: Absolute Lymphocytes (CBC) 0.4 K/uL (0.7-4.9); Hematocrit 32.9 % (36.0-45.0); Lymphocytes % 3.1 % (15.3-44.8); MPV 7.7 fL (7.6-11.3); Platelets 240 thou/uL (152-406); RBC Red Blood Cell Count 3.97 M/uL (3.86-4.86)
[2023-10-20 06:30] LABS: Potassium 3.9 mEq/L (3.5-5.1)
--- NOTE | 2023-10-20 06:42 | ECHO ---
HEIGHT: 4 ft 11 in WEIGHT: 186 lb 0.064 oz DATE OF STUDY: 10/19/[address]: Izaiah Carpenter NP 2-DIMENSIONAL: YES M.MODE: YES DOPPLER: YES COLOR FLOW: YES TDS: PORTABLE: YES DEFINITY: BUBBLE STUDY: DIAGNOSIS: SYNCOPE, FALL, RECENT PERSISTENT BACTERMIA CARDIAC HISTORY: CATHERIZATION: YES SURGERY: YES PROSTHETIC VALVE: NO PACEMAKER: YES MEASUREMENTS (cm) DIASTOLIC (NORMALS) SYSTOLIC (NORMALS) IVSd 1.0 (0.6-1.2) LA Diam 4.0 (1.9-4.0) LVEF 55-60% LVIDd 4.6 (3.5-5.7) LVIDs 3.5 (2.0-3.5) %FS 25% LVPWd 1.1 (0.6-1.2) Ao Diam 3.2 (2.0-3.7) 2 DIMENSIONAL ASSESSMENT: RIGHT ATRIUM: ENLARGED LEFT ATRIUM: ENLARGED RIGHT VENTRICLE: PACEMAKER WIRE LEFT VENTRICLE: NORMAL TRICUSPID VALVE: MODERATE TRICUSPID REGURGITATION MITRAL VALVE: MILD MITRAL REGURGITATION PULMONIC VALVE: NOT SEEN AORTIC VALVE: NORMAL PERICARDIAL EFFUSION: NONE AORTIC ROOT: NORMAL LEFT VENTRICULAR WALL MOTION: NORMAL DOPPLER/COLOR FLOW: SEE BELOW COMMENTS: 1. NORMAL LEFT VENTRICULAR EJECTION FRACTION 55-60% 2. POOR WINDOWS 3. LEFT ATRIAL ENLARMENT 4. RIGHT ATRIAL ENLARGEMENT 5. SEVERE PULMONARY HYPERTENSION WITH RIGHT VENTRICULAR SYSTOLIC PRESSURE GREATER THAN 60 mmHg 6. DIASTOLIC DYSFUNCTION 7. NO CLEAR VEGETATION IS SEEN BUT WINDOWS ARE POOR, IF CLINICALLY INDICATED RECOMMEND TRANSESOPHAGEAL ECHOCARDIOGRAM TECHNOLOGIST: GENE GLASER
[2023-10-20] MEDS: INSULIN REGULAR (HUMAN) 100 UNIT/ML SQ SCH ×4 (07:30→20:35)
[2023-10-20] MEDS: Meropenem 1,000 MG in NA CHLORIDE 0.9% 100 ML IV SCH ×2 (08:18→20:35)
[2023-10-20] MEDS: HEPARIN 5000 UNIT/ML 1 ML VIAL SQ SCH ×2 (08:18→20:35)
[2023-10-20] MEDS: NA CHLORIDE 0.9% 1,000 ML IV SCH (08:19)
--- NOTE | 2023-10-20 11:49 | P.PN ---
Date of Service: 10/20/23 Subjective: No acute events overnight Feeling little better this morning ROS: 10 point ROS as noted above, otherwise negative Physical exam GEN: Alert, oriented, NAD HEENT: Normal conjunctiva, sclera anicteric CV: Regular rate and rhythm, no edema Pulm: Nonlabored respirations on room air ABD: Soft, nontender, nondistended MSK: No joint tenderness Integumentary: No rashes Neuro: Normal speech, normal affect Vitals reviewed Assessment: Fall versus syncope Left hip pain, left third toe dislocation S/P closed reduction Leukocytosis-recently completed 6 weeks IV antibiotics for spinal osteomyelitis Bacteremia-4/4 gram-negative rods Dysuria Acute kidney injury Chronic atrial fibrillation Chronic diastolic congestive heart failure with AICD in place CAD with previous CABG Diabetes mellitus type 2 GERD Hypertension Fibromyalgia Parkinson's Seizure disorder Plan: Fall versus syncope CT head/C-spine negative for traumatic findings Monitor on telemetry, troponins trended flat PT consult Left hip pain, left third toe dislocation S/P closed reduction CT pelvis negative for fracture Orthopedics consult in place Toe dislocation reduced in ED PT consult Leukocytosis-recently completed 6 weeks IV antibiotics for spinal osteomyelitis Dysuria Bacteremia-4/4 gram-negative rods Completed course of IV antibiotics for 6 weeks finished ~10/16-10/17 Was recently at [facility] when she was diagnosed with osteomyelitis Noted to have 20,000 WBC, no fever, tachycardia or tachypnea Blood cultures and lactate obtained Does report urinary symptoms, has also had multiple ESBL UTIs Continue merrem Infectious disease consulted Acute kidney injury Nephrology consulted Continue gentle IV fluids improving Chronic atrial fibrillation Chronic diastolic congestive heart failure with AICD in place CAD with previous CABG Obtain and continue medications as appropriate Denies chest pain or defibrillator shock/palpitations prior to event Diabetes mellitus type 2 ACHS Accu-Chek, sliding scale insulin GERD Hypertension Fibromyalgia Parkinson's Seizure disorder Continue medications DVT PPX: Heparin subcu Code status: Full Discharge Plan: Home Plan to discharge in: Greater than 2 days Time Spent Managing Pts Care (In Minutes): 35
--- NOTE | 2023-10-20 12:41 | PN ---
Date of Progress Note: 10/20/2023 Subjective: The patient was admitted to the hospital with fall and weakness. The patient found to h ave acute kidney injury on chronic kidney disease. The patient was started on IV fluid. Kidney func tion started to be improving back close to baseline. Objective: General: When I saw the patient, patient lying in bed, comfortable, not on any distress. Vital Signs: Blood pressure of 138/59, pulse of 59, afebrile. Chest: Clear to auscultation. Heart: S1, S2. Regular. Abdomen: Soft, nontender. Extremities: Trace edema. Neurologic: Alert. No focality. Laboratory Data: Hemoglobin 10.6, sodium 134, potassium 3.9, bicarb 22, BUN 52, creatinine down to 1 .6. The patient's baseline creatinine around 1.4, calcium 8.6, BNP 220. Current Medications: The patient on, it includes: 1.Insulin. 2.Meropenem. 3.Tramadol. 4.IV fluid 75 per hour of normal saline. 5.Melatonin. 6.Heparin. Assessment And Plan: 1.Acute kidney injury secondary to prerenal, obstructive uropathy has been ruled out. Kidney functi on close to baseline. Patient stable hemodynamically. I am going to go ahead and discontinue IV flu id and we will continue to monitor the patient. a.Keep holding Entresto for the time being. 2.Hypertension, controlled, optimal with the presence of recent acute kidney injury. Holding Entres to, we will continue to monitor. 3.Congestive heart failure, diastolic dysfunction. We will follow up with Cardiology. I do not see the yield for Entresto as ejection fraction within normal limit. 4.Hyponatremia, depletional. Sodium trending up. We will discontinue IV fluid. 5.Urinary tract infection. Culture still pending. Continue current antibiotic. MA/MODL Voice ID: [id number] Report ID: [id number]
--- NOTE | 2023-10-20 14:25 | P.PN ---
Date of Service: 10/20/23 Sinan complaint: fall /syncope Subjective: In no apparent distress. No acute events overnight. Denies any new or worsening complaints at this time. Physical Examination Temp Pulse Resp BP Pulse Ox 97.7 F 64 17 129/82 95 10/20/23 11:57 10/20/23 11:57 10/20/23 11:57 10/20/23 11:57 10/20/23 11:57 General: Alert, In no apparent distress, Oriented x3 HEENT: Atraumatic, Normocephalic Respiratory: Clear to auscultation bilaterally, Normal air movement. On room air. Cardiovascular: Regular rate/rhythm. BLE edema 1+. Gastrointestinal: Normal bowel sounds, Soft and benign Integumentary: No rashes. Skin warm and dry. Neurological: Normal speech, Normal tone Urinary: PureWick Laboratory Data - Reviewed Microbiology Data - Reviewed Imagings Data: - Reviewed Medications List: Reviewed Assessment and Plan Problem List Gram-negative bacteremia secondary to acute urinary tract infection History of multi-drug resistant infection Acute kidney injury Atrial Fibrillation, chronic Diabetes Mellitus type II Chronic diastolic congestive heart failure Coronary Artery Disease Hx CABG Parkinson's Seizure Disorder Gram-negative Bacteremia secondary to Acute Urinary Tract Infection - Renal ultrasound 10/18: "Benign-appearing bilateral small renal cysts as above. No other sonographic renal abnormality. Urinary bladder is decompressed limiting evaluation" - Blood cultures 10/18: gram negative rods - Urine culture 10/18: 4+ gram negative rods - On meropenem (started 10/18) given history of ESBL - Leukocytosis improving (WBC 16.5 -> 11.2) - Afebrile Recent history of Spinal Osteomyelitis - hospitalized at [facility] for subdural hematoma and spinal osteomyelitis - Completed 6 weeks IV antibiotic Rocephin Recommendations - Bacteremia, UTI: Given history ESBL, continue on Meropenem for now. Will follow up with final blood and urine speciation/sensitivity results and adjust antibiotics as appropriate. Due to multiple comorbidities, recommend continuing antibiotic therapy for at least 10 days. - Strict blood glucose control - Monitor WBC and fever trends - Renally dose medications. - seizure precautions - Case discussed with Dr. Cabrera N.
[2023-10-20] MEDS ORDERED: VANCOMYCIN 1.5 GM in NA CHLORIDE 0.9% 500 ML IVPB SCH ×2 (17:00)
[2023-10-20] MEDS: TRAMADOL HCL 50 MG TAB PO PRN (22:16)
[2023-10-21 05:45] LABS: Potassium 4.1 mEq/L (3.5-5.1)
[2023-10-21] MEDS: INSULIN REGULAR (HUMAN) 100 UNIT/ML SQ SCH ×4 (07:30→21:00)
--- NOTE | 2023-10-21 09:08 | P.PN ---
Date of Service: 10/21/23 Subjective: No acute events overnight Feeling little better this morning worked well with PT yesterday ROS: 10 point ROS as noted above, otherwise negative Physical exam GEN: Alert, oriented, NAD HEENT: Normal conjunctiva, sclera anicteric CV: Regular rate and rhythm, no edema Pulm: Nonlabored respirations on room air ABD: Soft, nontender, nondistended MSK: No joint tenderness Integumentary: No rashes Neuro: Normal speech, normal affect Vitals reviewed Assessment: Fall versus syncope Left hip pain, left third toe dislocation S/P closed reduction E.coli ESBL bacteremia secondary to E.coli ESBL UTI Acute kidney injury Chronic atrial fibrillation Chronic diastolic congestive heart failure with AICD in place CAD with previous CABG Diabetes mellitus type 2 GERD Hypertension Fibromyalgia Parkinson's Seizure disorder Plan: Fall versus syncope CT head/C-spine negative for traumatic findings Monitor on telemetry, troponins trended flat PT consult Left hip pain, left third toe dislocation S/P closed reduction CT pelvis negative for fracture Orthopedics consult in place Toe dislocation reduced in ED PT consult E.coli ESBL bacteremia secondary to E.coli ESBL UTI Completed course of IV antibiotics for 6 weeks finished ~10/16-10/17 Was recently at [facility] when she was diagnosed with osteomyelitis Noted to have 20,000 WBC, no fever, tachycardia or tachypnea 01/04 blood cultures 10/18 with E.Coli ESBL as well as urine culture Does report urinary symptoms, has also had multiple ESBL UTIs Continue merrem, started 10/18 Infectious disease consulted PICC line ordered Acute kidney injury Nephrology consulted Continue gentle IV fluids improving Chronic atrial fibrillation Chronic diastolic congestive heart failure with AICD in place CAD with previous CABG Obtain and continue medications as appropriate Denies chest pain or defibrillator shock/palpitations prior to event Diabetes mellitus type 2 ACHS Accu-Chek, sliding scale insulin GERD Hypertension Fibromyalgia Parkinson's Seizure disorder Continue medications DVT PPX: Heparin subcu Code status: Full Discharge Plan: Home Plan to discharge in: Greater than 2 days Time Spent Managing Pts Care (In Minutes): 35
[2023-10-21 09:13] LABS: Absolute Lymphocytes (CBC) 0.6 K/uL (0.7-4.9); MCV 83.6 fL (80-100); MPV 7.5 fL (7.6-11.3); Platelets 256 thou/uL (152-406); RBC Red Blood Cell Count 4.07 M/uL (3.86-4.86)
--- NOTE | 2023-10-21 09:36 | P.PN ---
Date of Service: 10/21/23 Sinan complaint: fall /syncope Subjective: Improving. No acute events overnight. Resting comfortably in bed at this time. Denies any new or worsening complaints at this time. Pending PICC line placement for continued IV antibiotics. Physical Examination Temp Pulse Resp BP Pulse Ox 97.1 F 65 17 133/53 L 98 10/21/23 08:00 10/21/23 08:00 10/21/23 08:00 10/21/23 08:00 10/21/23 08:00 General: Alert, In no apparent distress, Oriented x3. HEENT: Atraumatic, Normocephalic Respiratory: Clear to auscultation bilaterally, Normal air movement. Cardiovascular: Regular rate/rhythm. BLE edema 1+. Gastrointestinal: Normal bowel sounds, Soft and benign Integumentary: No rashes. Skin warm and dry. Neurological: Normal speech, Normal tone Laboratory Data - Reviewed Microbiology Data - Reviewed Imagings Data: - Reviewed Medications List: - Reviewed Assessment and Plan Problem List Gram-negative bacteremia secondary to acute urinary tract infection History of multi-drug resistant infection Acute kidney injury Atrial Fibrillation, chronic Diabetes Mellitus type II Chronic diastolic congestive heart failure Coronary Artery Disease Hx CABG Parkinson's Seizure Disorder E.coli ESBL Bacteremia secondary to Acute Urinary Tract Infection - Renal ultrasound 10/18: "Benign-appearing bilateral small renal cysts as above. No other sonographic renal abnormality. Urinary bladder is decompressed limiting evaluation" - On meropenem (started 10/18) given history of ESBL - Blood cultures 10/18: Escherichia coli ESBL - Urine culture 10/18: Escherichia coli ESBL - Due to multiple comorbidities and ESBL infection, recommend continuation of antibiotic therapy for 14 days. - Leukocytosis improving (WBC 16.5 -> 11.2 -> 10.5) - Afebrile Recent history of Spinal Osteomyelitis - hospitalized at [facility] for subdural hematoma and spinal osteomyelitis - Completed 6 weeks IV antibiotic Rocephin Recommendations - Bacteremia, UTI E.coli ESBL: Continue meropenem x 14 days (10/18-11/01) - Strict blood glucose control - Pressure offloading measures. Turn patient q2h. offload pressure on heels. - Monitor WBC and fever trends - Renally dose medications. Case discussed with Bill Jaquez
[2023-10-21] MEDS: Meropenem 1,000 MG in NA CHLORIDE 0.9% 100 ML IV SCH ×2 (09:50→21:30)
[2023-10-21] MEDS: TRAMADOL HCL 50 MG TAB PO PRN (09:58)
[2023-10-21] MEDS: Mupirocin NASAL 2 APPL/1 GM TUBE NAS SCH ×2 (09:58→21:30)
[2023-10-21] MEDS: HEPARIN 5000 UNIT/ML 1 ML VIAL SQ SCH ×2 (10:00→21:39)
--- NOTE | 2023-10-21 12:18 | P.PN ---
Subjective Date of Service: 10/21/23 Subjective: No new changes Physical Examination - Vital Signs Temperature: 97.1 F Blood Pressure: 133/53 Pulse: 65 Respirations: 17 Pulse Ox (%): 98 - Physical Exam General: Other (chronically ill-appearing) HEENT: Atraumatic, Normocephalic Neck: Supple Respiratory: Other (symmetric chest expansion) Cardiovascular: No rubs, No murmurs Gastrointestinal: Soft and benign Musculoskeletal: No clubbing Integumentary: No warmth Neurological: Normal tone Urinary: Other (no bladder distention) External genitalia: Deferred Rectal: Deferred - Studies Microbiology Data (last 24 hrs): 10/18/23 15:25 Blood - Blood Aerobic Blood Culture - Final Escherichia Coli Esbl 10/18/23 15:25 Blood - Blood Blood Culture Gram Stain - Final 10/18/23 15:25 Blood - Blood Anaerobic Blood Culture - Final Escherichia Coli Esbl 10/18/23 15:25 Blood - Blood Gram Stain - Final Assessment And Plan - Plan 1. Acute kidney injury secondary to prerenal state. Improved. SCr improved from 1.6 to 1.4.Encourage po fluid intake. Hold entresto. 2. Hypertension, controlled. Cont current med regimen. 3. Congestive heart failure, diastolic dysfunction. Per other services. 4. Hyponatremia. Monitor. 5. UTI, ESBL e coli bacteremia. Abx per ID service. 6. Anemia. Monitor CBC.
--- NOTE | 2023-10-21 12:19 | RAD REPORT ---
EXAM DESCRIPTION: RAD - Chest Single View - 10/21/2023 11:58 am CLINICAL HISTORY: Device placement PICC line placement IMPRESSION: PICC line with its tip in the distal superior vena cava
[2023-10-21] MEDS: MELATONIN 5 MG TABLET PO PRN (21:31)
[2023-10-22] MEDS: TRAMADOL HCL 50 MG TAB PO PRN ×2 (02:54→21:26)
[2023-10-22] MEDS: INSULIN REGULAR (HUMAN) 100 UNIT/ML SQ SCH ×4 (07:30→21:00)
[2023-10-22 09:03] LABS: Potassium 4.6 mEq/L (3.5-5.1)
[2023-10-22] MEDS: Mupirocin NASAL 2 APPL/1 GM TUBE NAS SCH ×2 (09:57→21:26)
[2023-10-22] MEDS: Meropenem 1,000 MG in NA CHLORIDE 0.9% 100 ML IV SCH ×2 (10:00→21:27)
[2023-10-22] MEDS: HEPARIN 5000 UNIT/ML 1 ML VIAL SQ SCH (10:01)
--- NOTE | 2023-10-22 12:25 | P.PN ---
Date of Service: 10/22/23 Subjective: No acute events overnight ROS: 10 point ROS as noted above, otherwise negative Physical exam GEN: Alert, oriented, NAD HEENT: Normal conjunctiva, sclera anicteric CV: Regular rate and rhythm, no edema Pulm: Nonlabored respirations on room air ABD: Soft, nontender, nondistended MSK: No joint tenderness Integumentary: No rashes Neuro: Normal speech, normal affect Vitals reviewed Assessment: Fall versus syncope Left hip pain, left third toe dislocation S/P closed reduction E.coli ESBL bacteremia secondary to E.coli ESBL UTI Acute kidney injury Chronic atrial fibrillation Chronic diastolic congestive heart failure with AICD in place CAD with previous CABG Diabetes mellitus type 2 GERD Hypertension Fibromyalgia Parkinson's Seizure disorder Plan: Fall versus syncope CT head/C-spine negative for traumatic findings Monitor on telemetry, troponins trended flat PT consult Left hip pain, left third toe dislocation S/P closed reduction CT pelvis negative for fracture Orthopedics consult in place Toe dislocation reduced in ED E.coli ESBL bacteremia secondary to E.coli ESBL UTI Completed course of IV antibiotics for 6 weeks finished ~10/16-10/17 Was recently at [facility] when she was diagnosed with osteomyelitis Noted to have 20,000 WBC, no fever, tachycardia or tachypnea 01/04 blood cultures 10/18 with E.Coli ESBL as well as urine culture Does report urinary symptoms, has also had multiple ESBL UTIs Continue merrem, started 10/18, will need 2 weeks iv abx last day 11/01 Infectious disease consulted PICC line in place Possible inpatient rehab placement Acute kidney injury improved,encourage PO intake Chronic atrial fibrillation Chronic diastolic congestive heart failure with AICD in place CAD with previous CABG Obtain and continue medications as appropriate Denies chest pain or defibrillator shock/palpitations prior to event Diabetes mellitus type 2 ACHS Accu-Chek, sliding scale insulin GERD Hypertension Fibromyalgia Parkinson's Seizure disorder Continue medications DVT PPX: Heparin subcu Code status: Full Discharge Plan: Home Plan to discharge in: 1-2 days Time Spent Managing Pts Care (In Minutes): 35
[2023-10-22] MEDS: carvediloL 3.125 MG TAB PO SCH (18:14)
--- NOTE | 2023-10-22 20:45 | P.PN ---
Subjective Date of Service: 10/22/23 Subjective: No new changes Physical Examination - Vital Signs Temperature: 97.9 F Blood Pressure: 137/70 Pulse: 60 Respirations: 16 Pulse Ox (%): 96 - Physical Exam General: Other (chronically ill-appearing) HEENT: Atraumatic, Normocephalic Neck: Supple Respiratory: Other (symmetric chest expansion) Cardiovascular: No rubs, No murmurs Gastrointestinal: No rebound Musculoskeletal: No clubbing Integumentary: No warmth Neurological: Normal tone Urinary: Other (no bladder distention) External genitalia: Deferred Rectal: Deferred Assessment And Plan - Plan 1. Acute kidney injury secondary to prerenal state. Improved. SCr improved from 1.0. Encourage po fluid intake. Hold entresto, may resume prior to hosp dc. 2. Hypertension, controlled. Cont current med regimen. 3. Congestive heart failure, diastolic dysfunction. Per other services. 4. Hyponatremia. Monitor. 5. UTI, ESBL e coli bacteremia. Abx per ID service. 6. Anemia. Monitor CBC.
[2023-10-22] MEDS: BETHANECHOL 10 MG TAB PO SCH (21:00)
[2023-10-22] MEDS: DOCUSATE NA 100 MG CAP PO SCH (21:26)
[2023-10-22] MEDS: DULOXETINE 30 MG CAP PO SCH (21:27)
[2023-10-22] MEDS: APIXABAN 5 MG TABLET PO SCH (21:27)
[2023-10-22] MEDS: CARBIDOPA/LEVODOPA 25/100 TAB PO SCH (21:28)
[2023-10-22] MEDS: GABAPENTIN 100 MG CAP PO SCH (21:28)
[2023-10-22] MEDS: ATORVASTATIN 80 MG TAB PO SCH (21:28)
[2023-10-23] MEDS: PANTOPRAZOLE 40MG TABLET PO SCH (05:46)
[2023-10-23] MEDS: carvediloL 3.125 MG TAB PO SCH ×2 (05:46→17:02)
[2023-10-23] MEDS: INSULIN REGULAR (HUMAN) 100 UNIT/ML SQ SCH ×4 (07:30→20:06)
[2023-10-23] MEDS: CARBIDOPA/LEVODOPA 25/100 TAB PO SCH ×3 (08:52→20:14)
[2023-10-23] MEDS: Mupirocin NASAL 2 APPL/1 GM TUBE NAS SCH ×2 (08:52→20:15)
[2023-10-23] MEDS: AMIODARONE HCL 200 MG TAB PO SCH (08:53)
[2023-10-23] MEDS: Meropenem 1,000 MG in NA CHLORIDE 0.9% 100 ML IV SCH ×2 (08:53→20:15)
[2023-10-23] MEDS: BETHANECHOL 10 MG TAB PO SCH ×3 (09:00→20:16)
[2023-10-23] MEDS: DOCUSATE NA 100 MG CAP PO SCH ×2 (09:02→20:15)
[2023-10-23] MEDS: DULOXETINE 30 MG CAP PO SCH ×2 (09:02→20:15)
[2023-10-23] MEDS: APIXABAN 5 MG TABLET PO SCH ×2 (09:03→20:15)
--- NOTE | 2023-10-23 14:00 | P.PN ---
Date of Service: 10/23/23 Subjective: No acute events overnight ROS: 10 point ROS as noted above, otherwise negative Physical exam GEN: Alert, oriented, NAD HEENT: Normal conjunctiva, sclera anicteric CV: Regular rate and rhythm, no edema Pulm: Nonlabored respirations on room air ABD: Soft, nontender, nondistended MSK: No joint tenderness Integumentary: No rashes Neuro: Normal speech, normal affect Vitals reviewed Assessment: Fall versus syncope- secondary to bacteremia/dehydration Left hip pain, left third toe dislocation S/P closed reduction E.coli ESBL bacteremia secondary to E.coli ESBL UTI Acute kidney injury secondary to dehydration/prerenal Chronic atrial fibrillation Chronic diastolic congestive heart failure with AICD in place CAD with previous CABG Diabetes mellitus type 2 GERD Hypertension Fibromyalgia Parkinson's Seizure disorder Plan: Fall versus syncope- secondary to bacteremia/dehydration CT head/C-spine negative for traumatic findings Monitor on telemetry, troponins trended flat PT consult Left hip pain, left third toe dislocation S/P closed reduction CT pelvis negative for fracture Orthopedics consult in place Toe dislocation reduced in ED Continue PT E.coli ESBL bacteremia secondary to E.coli ESBL UTI Only SIRS criteria with leukocytosis, not meeting sepsis criteria Completed course of IV antibiotics for 6 weeks finished ~10/16-10/17 Was recently at [facility] when she was diagnosed with osteomyelitis Noted to have 20,000 WBC, no fever, tachycardia or tachypnea 01/04 blood cultures 10/18 with E.Coli ESBL as well as urine culture Does report urinary symptoms, has also had multiple ESBL UTIs Continue merrem, started 10/18, will need 2 weeks iv abx last day 11/01 Infectious disease consulted PICC line in place Possible inpatient rehab placement Acute kidney injury secondary to dehydration/prerenal improved,encourage PO intake Chronic atrial fibrillation Chronic diastolic congestive heart failure with AICD in place CAD with previous CABG Home medications continued Denies chest pain or defibrillator shock/palpitations prior to event Diabetes mellitus type 2 ACHS Accu-Chek, sliding scale insulin GERD Hypertension Fibromyalgia Parkinson's Seizure disorder Continue medications DVT PPX: Eliquis Code status: Full Discharge Plan: Home Plan to discharge in: 1-2 days Time Spent Managing Pts Care (In Minutes): 35
--- NOTE | 2023-10-23 16:40 | P.PN ---
Subjective Date of Service: 10/23/23 Subjective: No new changes Physical Examination - Vital Signs Temperature: 97.0 F Blood Pressure: 139/63 Pulse: 62 Respirations: 17 Pulse Ox (%): 96 - Physical Exam General: Other (chronically ill-appearing) HEENT: Atraumatic, Normocephalic Neck: Supple Respiratory: Other (symmetric chest expansion) Cardiovascular: No rubs, No murmurs Gastrointestinal: Soft and benign Musculoskeletal: No clubbing Integumentary: No warmth Neurological: Normal tone Urinary: Other (no bladder distention) External genitalia: Deferred Rectal: Deferred Assessment And Plan - Plan 1. Acute kidney injury secondary to prerenal state. Improved. SCr improved to 0.8. Encourage po fluid intake. May resume Entresto prior to hosp dc. 2. Hypertension, controlled. Cont current med regimen. 3. Congestive heart failure, diastolic dysfunction. Per other services. 4. Hyponatremia. Monitor. 5. UTI, ESBL e coli bacteremia. Abx per ID service. 6. Anemia. Monitor CBC.
[2023-10-23] MEDS: GABAPENTIN 100 MG CAP PO SCH (20:14)
[2023-10-23] MEDS: ATORVASTATIN 80 MG TAB PO SCH (20:15)
[2023-10-24] MEDS: TRAMADOL HCL 50 MG TAB PO PRN (01:15)
[2023-10-24] MEDS: PANTOPRAZOLE 40MG TABLET PO SCH (05:44)
[2023-10-24] MEDS: carvediloL 3.125 MG TAB PO SCH ×2 (05:44→17:02)
[2023-10-24 06:01] LABS: Potassium 4.7 mEq/L (3.5-5.1)
[2023-10-24] MEDS: INSULIN REGULAR (HUMAN) 100 UNIT/ML SQ SCH ×4 (07:30→20:28)
[2023-10-24] MEDS: BETHANECHOL 10 MG TAB PO SCH ×3 (09:00→20:31)
[2023-10-24] MEDS: AMIODARONE HCL 200 MG TAB PO SCH (09:06)
[2023-10-24] MEDS: Meropenem 1,000 MG in NA CHLORIDE 0.9% 100 ML IV SCH ×2 (09:06→20:27)
[2023-10-24] MEDS: DULOXETINE 30 MG CAP PO SCH ×2 (09:06→20:27)
[2023-10-24] MEDS: DOCUSATE NA 100 MG CAP PO SCH ×2 (09:06→20:27)
[2023-10-24] MEDS: APIXABAN 5 MG TABLET PO SCH ×2 (09:06→20:27)
[2023-10-24] MEDS: CARBIDOPA/LEVODOPA 25/100 TAB PO SCH ×3 (09:06→20:27)
[2023-10-24] MEDS: Mupirocin NASAL 2 APPL/1 GM TUBE NAS SCH ×2 (09:07→20:26)
--- NOTE | 2023-10-24 09:59 | P.PN ---
Date of Service: 10/24/23 [facility] complaint: fall /syncope Subjective: Patient seen and examined at bedside. In no apparent distress. Denies any new or worsening complaints at this time. Pending inpatient rehab placement. Physical Examination Temp Pulse Resp BP Pulse Ox 97.0 F 62 17 142/52 H 94 10/24/23 08:00 10/24/23 08:00 10/24/23 08:00 10/24/23 08:00 10/24/23 08:00 General: Alert, In no apparent distress, Oriented x3. HEENT: Atraumatic, Normocephalic Respiratory: Clear to auscultation bilaterally, Normal air movement. Cardiovascular: Regular rate/rhythm. BLE edema 1+. Gastrointestinal: Normal bowel sounds, Soft and benign Integumentary: No rashes. Skin warm and dry. Neurological: Normal speech, Normal tone Laboratory Data - Reviewed Microbiology Data - Reviewed Imagings Data: - Reviewed Medications List: - Reviewed Assessment and Plan Problem List Gram-negative bacteremia secondary to acute urinary tract infection History of multi-drug resistant infection Acute kidney injury Atrial Fibrillation, chronic Diabetes Mellitus type II Chronic diastolic congestive heart failure Coronary Artery Disease Hx CABG Parkinson's Seizure Disorder E.coli ESBL Bacteremia secondary to Acute Urinary Tract Infection - Renal ultrasound 10/18: "Benign-appearing bilateral small renal cysts as above. No other sonographic renal abnormality. Urinary bladder is decompressed limiting evaluation" - On meropenem (started 10/18) given history of ESBL - Blood cultures 10/18: Escherichia coli ESBL - Urine culture 10/18: Escherichia coli ESBL - Due to multiple comorbidities and ESBL infection, recommend continuation of antibiotic therapy for 14 days. - Leukocytosis resolved. - Afebrile Recent history of Spinal Osteomyelitis - hospitalized at [facility] for subdural hematoma and spinal osteomyelitis - Completed 6 weeks IV antibiotic Rocephin Recommendations - Bacteremia, UTI E.coli ESBL: Continue meropenem x 14 days (10/18-11/01) - Strict blood glucose control - Pressure offloading measures. Turn patient q2h. offload pressure on heels. - Monitor WBC and fever trends - Renally dose medications. pending IPR placement. SS/CM following. Case discussed with Bill Jaquez
--- NOTE | 2023-10-24 14:02 | P.PN ---
Date of Service: 10/24/23 Subjective: No acute events overnight looking forward wot working with PT today ROS: 10 point ROS as noted above, otherwise negative Physical exam GEN: Alert, oriented, NAD HEENT: Normal conjunctiva, sclera anicteric CV: Regular rate and rhythm, no edema Pulm: Nonlabored respirations on room air ABD: Soft, nontender, nondistended MSK: No joint tenderness Integumentary: No rashes Neuro: Normal speech, normal affect Vitals reviewed Assessment: Fall versus syncope- secondary to bacteremia/dehydration Left hip pain, left third toe dislocation S/P closed reduction E.coli ESBL bacteremia secondary to E.coli ESBL UTI Acute kidney injury secondary to dehydration/prerenal Chronic atrial fibrillation Chronic diastolic congestive heart failure with AICD in place CAD with previous CABG Diabetes mellitus type 2 GERD Hypertension Fibromyalgia Parkinson's Seizure disorder Plan: Fall versus syncope- secondary to bacteremia/dehydration CT head/C-spine negative for traumatic findings Monitor on telemetry, troponins trended flat PT consult Left hip pain, left third toe dislocation S/P closed reduction CT pelvis negative for fracture Orthopedics consult in place Toe dislocation reduced in ED Continue PT E.coli ESBL bacteremia secondary to E.coli ESBL UTI Only SIRS criteria with leukocytosis, not meeting sepsis criteria Completed course of IV antibiotics for 6 weeks finished ~10/16-10/17 Was recently at [facility] when she was diagnosed with osteomyelitis Noted to have 20,000 WBC, no fever, tachycardia or tachypnea 01/04 blood cultures 10/18 with E.Coli ESBL as well as urine culture Does report urinary symptoms, has also had multiple ESBL UTIs Continue merrem, started 10/18, will need 2 weeks iv abx last day 11/01 Infectious disease consulted PICC line in place Possible inpatient rehab placement Acute kidney injury secondary to dehydration/prerenal improved,encourage PO intake Chronic atrial fibrillation Chronic diastolic congestive heart failure with AICD in place CAD with previous CABG Home medications continued Denies chest pain or defibrillator shock/palpitations prior to event Diabetes mellitus type 2 ACHS Accu-Chek, sliding scale insulin GERD Hypertension Fibromyalgia Parkinson's Seizure disorder Continue medications DVT PPX: Eliquis Code status: Full Discharge Plan: Inpatient rehab Plan to discharge in: 1-2 days Time Spent Managing Pts Care (In Minutes): 35
[2023-10-24] MEDS: LACTOBACILLUS/ACIDOPHILUS TAB PO SCH (17:03)
--- NOTE | 2023-10-24 17:18 | EKG ---
Test Date: 2023-10-18 Test Time: 13:11:33 Floriculture Professor: MARCOS MEASUREMENT RESULTS: Intervals: Rate: 60 OH: 194 QRSD: 88 QT: 574 QTc: 574 [place]: P: OH: 194 QRS: 42 T: 79 INTERPRETIVE STATEMENTS: Atrial-paced rhythm Prolonged QT Abnormal ECG Compared to ECG 08/21/2023 09:25:42 Prolonged QT interval now present Sinus rhythm no longer present Junctional escape complex(es) no longer present Fusion complex(es) no longer present Ventricular premature complex(es) no longer present T-wave abnormality no longer present Possible ischemia no longer present Electronically Signed On 10-24-23 16:59:19 POWER GRADER OPERATOR by Mark Perez
[2023-10-24] MEDS: GABAPENTIN 100 MG CAP PO SCH (20:27)
[2023-10-24] MEDS: SACUBITRIL/VALSARTAN 24/26 MG TAB PO SCH (20:27)
[2023-10-24] MEDS: ATORVASTATIN 80 MG TAB PO SCH (20:27)
--- NOTE | 2023-10-25 03:33 | PN ---
Date of Progress Note: 10/24/2023 Subjective: Acute kidney injury secondary to prerenal state. Serum creatinine level has improved. The patient is tolerating p.o. intake. Review of Systems: Denies chest pain, palpitation. Physical Examination: Lungs: Clear to auscultation bilaterally. Heart S1, S2. Abdomen: Soft, benign. Extremities: Slight edema. Impression And Plan: 1.Acute kidney injury secondary to prerenal state. Renal function has improved. The patient is enc ouraged to increase p.o. fluid intake. The patient was taken off Entresto due to acute kidney injury . She may resume Entresto prior to hospital discharge. Continue to monitor renal function and elect rolytes. 2.Hypertension, controlled. Continue current medical management. 3.Congestive heart failure, diastolic dysfunction. Management per other services. 4.Hyponatremia. Monitor sodium level and adjust hydration as needed. 5.Urinary tract infection, extended-spectrum beta-lactamase Escherichia coli bacteremia. Antibiotic already started by other service. 6.Anemia. Monitor CBC. EB/MODL Voice ID: [id number] Report ID: [id number]
[2023-10-25] MEDS: carvediloL 3.125 MG TAB PO SCH ×2 (05:18→17:00)
[2023-10-25] MEDS: PANTOPRAZOLE 40MG TABLET PO SCH (05:19)
[2023-10-25 05:52] LABS: Potassium 4.7 mEq/L (3.5-5.1)
[2023-10-25] MEDS: INSULIN REGULAR (HUMAN) 100 UNIT/ML SQ SCH ×4 (07:30→20:45)
[2023-10-25] MEDS: DOCUSATE NA 100 MG CAP PO SCH ×2 (08:31→20:43)
[2023-10-25] MEDS: Meropenem 1,000 MG in NA CHLORIDE 0.9% 100 ML IV SCH ×2 (08:31→20:44)
[2023-10-25] MEDS: SACUBITRIL/VALSARTAN 24/26 MG TAB PO SCH ×2 (08:32→20:42)
[2023-10-25] MEDS: DULOXETINE 30 MG CAP PO SCH ×2 (08:32→20:42)
[2023-10-25] MEDS: LACTOBACILLUS/ACIDOPHILUS TAB PO SCH ×3 (08:32→17:01)
[2023-10-25] MEDS: AMIODARONE HCL 200 MG TAB PO SCH (08:33)
[2023-10-25] MEDS: APIXABAN 5 MG TABLET PO SCH ×2 (08:33→20:43)
[2023-10-25] MEDS: GABAPENTIN 100 MG CAP PO SCH ×2 (08:33→20:43)
[2023-10-25] MEDS: Mupirocin NASAL 2 APPL/1 GM TUBE NAS SCH ×2 (08:39→20:43)
[2023-10-25] MEDS: CARBIDOPA/LEVODOPA 25/100 TAB PO SCH ×3 (08:41→20:43)
[2023-10-25] MEDS: BETHANECHOL 10 MG TAB PO SCH ×3 (09:00→20:45)
--- NOTE | 2023-10-25 09:35 | P.PN ---
Date of Service: 10/25/23 [facility] complaint: fall /syncope Subjective: Patient seen and examined in room. In no apparent distress. No acute events overnight. Denies any new or worsening complaints. No urinary symptoms reported. Physical Examination Temp Pulse Resp BP Pulse Ox 98.7 F 74 18 159/87 H 96 10/25/23 08:00 10/25/23 08:00 10/25/23 08:00 10/25/23 08:00 10/25/23 08:00 General: Alert, In no apparent distress, Oriented x3. HEENT: Atraumatic, Normocephalic Respiratory: Clear to auscultation bilaterally, Normal air movement. Cardiovascular: Regular rate/rhythm. BLE edema 1+. Gastrointestinal: Normal bowel sounds, Soft and benign Integumentary: No rashes. Skin warm and dry. Neurological: Normal speech, Normal tone Laboratory Data - Reviewed Microbiology Data - Reviewed Imagings Data: - Reviewed Medications List: - Reviewed Assessment and Plan Problem List Gram-negative bacteremia secondary to acute urinary tract infection History of multi-drug resistant infection Acute kidney injury Atrial Fibrillation, chronic Diabetes Mellitus type II Chronic diastolic congestive heart failure Coronary Artery Disease Hx CABG Parkinson's Seizure Disorder E.coli ESBL Bacteremia secondary to Acute Urinary Tract Infection - Renal ultrasound 10/18: "Benign-appearing bilateral small renal cysts as above. No other sonographic renal abnormality. Urinary bladder is decompressed limiting evaluation" - On meropenem (started 10/18) given history of ESBL - Blood cultures 10/18: Escherichia coli ESBL - Urine culture 10/18: Escherichia coli ESBL - Due to multiple comorbidities and ESBL infection, recommend continuation of antibiotic therapy for 14 days. - Leukocytosis resolved. - Afebrile Recent history of Spinal Osteomyelitis - hospitalized at [facility] for subdural hematoma and spinal osteomyelitis - Completed 6 weeks IV antibiotic Rocephin Recommendations - Bacteremia, UTI E.coli ESBL: Continue meropenem x 14 days (10/18-11/01) - Strict blood glucose control - Pressure offloading measures. Turn patient q2h. offload pressure on heels. - Monitor WBC and fever trends pending IPR placement. SS/CM following. Case discussed with Dr. Cabrera N.
[2023-10-25] MEDS: SPIRONOLACTONE 25 MG TABLET PO SCH (10:22)
--- NOTE | 2023-10-25 12:39 | CON ---
Date of Consultation: 10/19/2023 Reason For Consultation: Left hip pain. History Of Present Illness: Jelly is a 78-year-old female with history of CHF, coronary artery dise ase, AFib, diabetes, hypertension, GERD, Parkinson's, who is brought to the emergency room after a fa ll. The patient was noted to have hip pain after the fall and had x-rays and CAT scan. X-rays and C AT scan that were negative for any fracture or dislocation. Patient has had some pain in the left hi p. The patient does have history of recent subdural hematoma as well as spinal osteomyelitis that jackson s been treated by an outside physician with 6 weeks of IV antibiotics. Review of Systems: As above, otherwise negative. Medications: Per medication reconciliation form. Allergies: NO KNOWN DRUG ALLERGIES. Social History: Reports occasional alcohol use. Denies drug use. Lives at home. Past Medical History: Includes fibromyalgia, congestive heart failure, hypertension, diabetes, atria l fibrillation, coronary artery disease. Past Surgical History: Includes right total knee arthroplasty, cholecystectomy, hernia repair, hyste rectomy, pacemaker, and CABG placement. Physical Examination: General: No apparent distress. HEENT: Normocephalic, atraumatic. Neck: Supple. Cardiovascular: Brisk cap refill to all digits. Chest: Nonlabored breathing. Abdomen: Nondistended. Psychiatric: Response to exam. Musculoskeletal: Left lower extremity: No pain with flexion, internal or external rotation of the h ip. Some pain at extremes of motion. Neurovascularly intact distally. Right lower extremity: Func tional range of motion without pain. No gross deformities. No obvious dislocations. Bilateral uppe r extremities: Functional range of motion. No pain. No gross deformities. No obvious dislocations . Diagnostic Studies: X-rays and CT scan of the left hip were negative for any fracture or dislocation . Some mild osteoarthritis noted. Assessment And Plan: Jelly is a 78-year-old female with a left hip sprain with underlying osteoarth ritis. I discussed with the patient at length her imaging findings. No surgical intervention is ind icated at this time. The patient may be weightbearing as tolerated. Physical Therapy may be consult ed to aid with mobilization. Will follow up in my clinic as needed. CV/MODL Voice ID: [id number] Report ID: [id number]
--- NOTE | 2023-10-25 15:09 | PN ---
Date of Progress Note: 10/25/2023 Subjective: Patient was admitted to the hospital with acute kidney injury secondary to prerenal, complicated with ARB. Patient's kidney function is back to her baseline. Patient is feeling better. Physical Examination: Vital Signs: Blood pressure 140/81, pulse of 75, afebrile. Chest: Clear to auscultation. Heart: S1, S2. Regular. Abdomen: Soft, nontender. Extremities: No edema. Neuro: Alert. No focality. Laboratory Data: Sodium 142, potassium 4.7, bicarb 30, BUN 25, creatinine 0.8, calcium 9.4. Hemoglobin 10.9. Current Medications: The patient is on include: 1. Meropenem. 2. Eliquis. 3. Tylenol. 4. Entresto. 5. Carvedilol. 6. Spironolactone. 7. Gabapentin. Assessment And Plan: 1. Acute kidney injury secondary to prerenal, superimposed with ARB, recovered, resolved. 2. Hypertension, controlled, optimal. Okay to continue Entresto. 3. Congestive heart failure, advanced. Currently, normal volume. We will monitor. 4. Hyponatremia secondary to depletional, resolved. 5. Urinary tract infection. Continue current antibiotic secondary to ESBL. Time spent examining the patient [id number] reviewing that the lab and the radiology placing orders or discussing the case with the patient discussing the case with the steam room attendant including hospitalist and nursing staff more than 35 minutes JEMAL Voice ID: [id number] Report ID: [id number] TUNDE
--- NOTE | 2023-10-25 18:54 | P.PN ---
Date of Service: 10/25/23 Subjective Feeling well this morning, no complaints Talkative, alert and oriented x 3 PICC line to right upper arm ROS 10 point ROS as noted above, otherwise negative Physical exam GEN: AAo x3, NAD HEENT: Normal conjunctiva, sclera anicteric CV: Regular rate and rhythm, no edema, no murmur appreciated Pulm: Nonlabored respirations on room air, symmetrical chest wall movement ABD: Soft, nontender, nondistended, + BS present MSK: No joint tenderness, PICC line to Right upper arm Integumentary: No rashes Neuro: Normal speech, normal affect, no anxiety noted Vitals reviewed Assessment: Fall versus syncope- secondary to bacteremia/dehydration Left hip pain, left third toe dislocation S/P closed reduction E.coli ESBL bacteremia secondary to E.coli ESBL UTI Acute kidney injury secondary to dehydration/prerenal Chronic atrial fibrillation Chronic diastolic congestive heart failure with AICD in place CAD with previous CABG Diabetes mellitus type 2 GERD Hypertension Fibromyalgia Parkinson's Seizure disorder Plan: Fall versus syncope- secondary to bacteremia/dehydration CT head/C-spine negative for traumatic findings Monitor on telemetry, troponins trended flat PT consult-ambulated in the hallway today Left hip pain, left third toe dislocation S/P closed reduction CT pelvis negative for fracture Orthopedics consult in place Toe dislocation reduced in ED Continue PT -ambulated in the hallway today E.coli ESBL bacteremia secondary to E.coli ESBL UTI Only SIRS criteria with leukocytosis, not meeting sepsis criteria Completed course of IV antibiotics for 6 weeks finished ~10/16-10/17 Was recently at [facility] when she was diagnosed with osteomyelitis Noted to have 20,000 WBC, no fever, tachycardia or tachypnea 01/04 blood cultures 10/18 with E.Coli ESBL as well as urine culture Does report urinary symptoms, has also had multiple ESBL UTIs Continue merrem, started 10/18, will need 2 weeks iv abx last day 11/01 Infectious disease consulted- started lactobacillus/acidophilus PICC line in place Possible inpatient rehab placement- pending approval at this time Acute kidney injury secondary to dehydration/prerenal improved,encourage PO intake UOP 1600 10/24 Chronic atrial fibrillation Chronic diastolic congestive heart failure with AICD in place CAD with previous CABG Home medications continued Denies chest pain or defibrillator shock/palpitations prior to event Stable Diabetes mellitus type 2 ACHS Accu-Chek, continue sliding scale insulin GERD Hypertension Fibromyalgia Parkinson's Seizure disorder Continue medications DVT PPX: Eliquis Code status: Full Discharge Plan: Inpatient rehab pending approval Plan to discharge in: 1-2 days
[2023-10-25] MEDS: ATORVASTATIN 80 MG TAB PO SCH (20:43)
[2023-10-26] MEDS ORDERED: TRAMADOL HCL 50 MG TAB ONE (04:03)
[2023-10-26] MEDS: PANTOPRAZOLE 40MG TABLET PO SCH (05:46)
[2023-10-26] MEDS: carvediloL 3.125 MG TAB PO SCH ×2 (05:46→18:14)
[2023-10-26] MEDS: INSULIN REGULAR (HUMAN) 100 UNIT/ML SQ SCH ×4 (07:30→20:17)
[2023-10-26] MEDS: BETHANECHOL 10 MG TAB PO SCH ×3 (09:00→20:18)
[2023-10-26] MEDS: SPIRONOLACTONE 25 MG TABLET PO SCH (09:11)
[2023-10-26] MEDS: GABAPENTIN 100 MG CAP PO SCH ×2 (09:12→20:16)
[2023-10-26] MEDS: LACTOBACILLUS/ACIDOPHILUS TAB PO SCH ×3 (09:13→16:24)
[2023-10-26] MEDS: DOCUSATE NA 100 MG CAP PO SCH ×2 (09:13→20:17)
[2023-10-26] MEDS: APIXABAN 5 MG TABLET PO SCH ×2 (09:13→20:16)
[2023-10-26] MEDS: DULOXETINE 30 MG CAP PO SCH ×2 (09:13→20:16)
[2023-10-26] MEDS: CARBIDOPA/LEVODOPA 25/100 TAB PO SCH ×3 (09:13→20:17)
[2023-10-26] MEDS: SACUBITRIL/VALSARTAN 24/26 MG TAB PO SCH ×2 (09:13→20:19)
[2023-10-26] MEDS: AMIODARONE HCL 200 MG TAB PO SCH (09:13)
[2023-10-26] MEDS: Meropenem 1,000 MG in NA CHLORIDE 0.9% 100 ML IV SCH ×2 (09:14→16:24)
--- NOTE | 2023-10-26 09:49 | P.PN ---
Date of Service: 10/26/23 Sinan complaint: fall /syncope Subjective: Patient seen and examined at bedside. Denies any new or worsening complaints. No acute events overnight. In no apparent distress at this time. Pending rehab placement. Physical Examination Temp Pulse Resp BP Pulse Ox 97.0 F 67 15 119/59 L 96 10/26/23 08:00 10/26/23 09:11 10/26/23 08:00 10/26/23 09:11 10/26/23 08:00 General: Alert, In no apparent distress, Oriented x3. HEENT: Atraumatic, Normocephalic. Neck supple. Respiratory: Clear to auscultation bilaterally. Unlabored respirations. Cardiovascular: Regular rate/rhythm. BLE edema 1+. Gastrointestinal: Normal bowel sounds, Soft and benign. non-tender. Integumentary: No rashes. Skin warm and dry. Laboratory Data - Reviewed Microbiology Data - Reviewed Imagings Data: - Reviewed Medications List: - Reviewed Assessment and Plan Problem List Gram-negative bacteremia secondary to acute urinary tract infection History of multi-drug resistant infection Acute kidney injury Atrial Fibrillation, chronic Diabetes Mellitus type II Chronic diastolic congestive heart failure Coronary Artery Disease Hx CABG Parkinson's Seizure Disorder E.coli ESBL Bacteremia secondary to Acute Urinary Tract Infection - Renal ultrasound 10/18: "Benign-appearing bilateral small renal cysts as above. No other sonographic renal abnormality. Urinary bladder is decompressed limiting evaluation" - On meropenem (started 10/18) given history of ESBL - Blood cultures 10/18: Escherichia coli ESBL - Urine culture 10/18: Escherichia coli ESBL - Due to multiple comorbidities and ESBL infection, recommend continuation of antibiotic therapy for 14 days. - Leukocytosis resolved. - Afebrile Recent history of Spinal Osteomyelitis - hospitalized at [facility] for subdural hematoma and spinal osteomyelitis - Completed 6 weeks IV antibiotic Rocephin Recommendations - Bacteremia, UTI E.coli ESBL: Continue meropenem x 14 days (10/18-11/01) - Strict blood glucose control - Pressure offloading measures. Turn patient q2h. offload pressure on heels. - Monitor WBC and fever trends pending IPR placement. SS/CM following. Case discussed with Bill Jaquez
[2023-10-26] MEDS: TRAMADOL HCL 50 MG TAB PO PRN (11:36)
--- NOTE | 2023-10-26 11:50 | PN ---
Date of Progress Note: 10/26/2023 Subjective: Patient is doing well. Objective: Vital Signs: Patient's blood pressure of 119/59, pulse of 67, afebrile. Chest: Clear to auscultation. Heart: S1, S2. Regular. Abdomen: Soft, nontender. Extremities: No edema. Neuro: Alert. No focality. Laboratory Data: Hemoglobin 10.9. Sodium 142, potassium 4.7, bicarb 30, BUN 25, creatinine 0.8, liliana cium 9.4. Assessment And Plan: 1.Acute kidney injury secondary to ARB, superimposed with metformin and Aldactone. Recover back kirt se to baseline normal volume. I am going to continue to monitor the patient. 2.Hypertension, controlled, optimal. 3.Urinary tract infection secondary to ESBL. Continue current antibiotic. 4.Congestive heart failure. No exacerbation. Patient has normal volume. I am going to continue to monitor. Hold diuresis. Current Medications: The patient is on include: 1.Meropenem. 2.Amiodarone. 3.Atorvastatin. 4.Carvedilol 3.125. 5.Entresto. 6.Spironolactone. 7.Carbidopa. 8.Gabapentin. JEMAL Voice ID: [id number] Report ID: [id number]
--- NOTE | 2023-10-26 16:36 | P.PN ---
Date of Service: 10/26/23 Subjective Awake and conversant this morning. No new complaint Reports walking to the bathroom and sitting in the chair throughout the day. ROS 10 point ROS as noted above, otherwise negative Physical exam GEN: AAo x3, NAD HEENT: Normal conjunctiva, sclera anicteric CV: Regular rate and rhythm, no edema, no murmur appreciated Pulm: Nonlabored respirations on room air, symmetrical chest wall movement ABD: Soft, nontender, nondistended, + BS present MSK: No joint tenderness, bruising to left foot phalanges, dressing to right foot, PICC line to Right upper arm, 2+ peripheral pulses Integumentary: No rashes Neuro: Normal speech, normal affect, no anxiety noted Vitals reviewed Assessment: Fall versus syncope- secondary to bacteremia/dehydration Left hip pain, left third toe dislocation S/P closed reduction E.coli ESBL bacteremia secondary to E.coli ESBL UTI Acute kidney injury secondary to dehydration/prerenal Chronic atrial fibrillation Chronic diastolic congestive heart failure with AICD in place CAD with previous CABG Diabetes mellitus type 2 GERD Hypertension Fibromyalgia Parkinson's Seizure disorder Plan: Fall versus syncope- secondary to bacteremia/dehydration CT head/C-spine negative for traumatic findings Monitor on telemetry, troponins trended flat PT consult-ambulated in the hallway today Left hip pain, left third toe dislocation S/P closed reduction CT pelvis negative for fracture Orthopedics consult in place Toe dislocation reduced in ED Continue PT -ambulated 125 ft (10/26) E.coli ESBL bacteremia secondary to E.coli ESBL UTI Only SIRS criteria with leukocytosis, not meeting sepsis criteria Completed course of IV antibiotics for 6 weeks finished ~10/16-10/17 Was recently at [facility] when she was diagnosed with osteomyelitis Noted to have 20,000 WBC, no fever, tachycardia or tachypnea 01/04 blood cultures 10/18 with E.Coli ESBL as well as urine culture repeat blood cultures drawn (10/26) Does report urinary symptoms, has also had multiple ESBL UTIs Continue merrem, started 10/18, will need 2 weeks iv abx last day 11/01 Infectious disease consulted- started lactobacillus/acidophilus PICC line in place Possible inpatient rehab placement- pending approval at this time Acute kidney injury secondary to dehydration/prerenal improved,encourage PO intake- ate some breakfast this AM UOP 1500 10/25 Chronic atrial fibrillation Chronic diastolic congestive heart failure with AICD in place CAD with previous CABG Home medications continued Denies chest pain or defibrillator shock/palpitations prior to event Stable Diabetes mellitus type 2 ACHS Accu-Chek, continue sliding scale insulin GERD Hypertension Fibromyalgia Parkinson's Seizure disorder Continue medications DVT PPX: Eliquis Code status: Full Discharge Plan: Inpatient rehab pending approval Plan to discharge in: 1-2 days
[2023-10-26] MEDS: ATORVASTATIN 80 MG TAB PO SCH (20:17)
[2023-10-26] MEDS: HOME MED [LATANOPROST 0.005% 2.5ML OPTH] OPTH SCH (20:17)
[2023-10-26] MEDS ORDERED: LATANOPROST 0.005% 2.5ML OPTH OPTH SCH (21:00)
[2023-10-27] MEDS: Meropenem 1,000 MG in NA CHLORIDE 0.9% 100 ML IV SCH ×3 (00:06→17:04)
[2023-10-27] MEDS: MELATONIN 5 MG TABLET PO PRN ×2 (00:38→21:45)
[2023-10-27] MEDS: TRAMADOL HCL 50 MG TAB PO PRN ×3 (00:38→21:45)
[2023-10-27 05:17] VITALS: BMI 37.5
[2023-10-27] MEDS: PANTOPRAZOLE 40MG TABLET PO SCH (05:44)
[2023-10-27] MEDS: carvediloL 3.125 MG TAB PO SCH ×2 (05:44→17:05)
[2023-10-27] MEDS: INSULIN REGULAR (HUMAN) 100 UNIT/ML SQ SCH ×4 (07:30→21:00)
[2023-10-27] MEDS: LACTOBACILLUS/ACIDOPHILUS TAB PO SCH ×3 (08:11→17:04)
[2023-10-27] MEDS: APIXABAN 5 MG TABLET PO SCH ×2 (08:11→21:47)
[2023-10-27] MEDS: SACUBITRIL/VALSARTAN 24/26 MG TAB PO SCH ×2 (08:11→21:46)
[2023-10-27] MEDS: SPIRONOLACTONE 25 MG TABLET PO SCH (08:11)
[2023-10-27] MEDS: GABAPENTIN 100 MG CAP PO SCH ×2 (08:12→21:47)
[2023-10-27] MEDS: DULOXETINE 30 MG CAP PO SCH ×2 (08:12→21:46)
[2023-10-27] MEDS: DOCUSATE NA 100 MG CAP PO SCH ×2 (08:12→21:46)
[2023-10-27] MEDS: BETHANECHOL 10 MG TAB PO SCH ×3 (08:13→21:00)
[2023-10-27] MEDS: AMIODARONE HCL 200 MG TAB PO SCH (08:13)
[2023-10-27] MEDS: CARBIDOPA/LEVODOPA 25/100 TAB PO SCH ×3 (08:13→21:46)
--- NOTE | 2023-10-27 08:29 | P.PN ---
Date of Service: 10/27/23 Che complaint: fall /syncope Subjective: In no apparnt distress, breathing comfortably on room air. No acute events overnight. Denies any new complaints. Improving. Pending inpatient rehab placement. Physical Examination Temp Pulse Resp BP Pulse Ox 97.2 F 68 18 121/53 L 97 10/27/23 04:00 10/27/23 08:11 10/27/23 04:00 10/27/23 08:11 10/27/23 04:00 General: Alert, In no apparent distress, Oriented x3. HEENT: Atraumatic, Normocephalic. Respiratory: Clear to auscultation bilaterally. Unlabored respirations on room air. Cardiovascular: Regular rate/rhythm. trace BLE edema. Gastrointestinal: Normal bowel sounds, Soft and benign. Non-tender. Non- distended. Integumentary: Skin warm and dry. No rashes. Laboratory Data - Reviewed Microbiology Data - Blood cultures 10/18: Escherichia coli ESBL - Urine culture 10/18: Escherichia coli ESBL - Repeat blood cultures 10/26: no growth to date Imagings Data: - Reviewed Medications List: - Reviewed Assessment and Plan Problem List Gram-negative bacteremia secondary to acute urinary tract infection History of multi-drug resistant infection Acute kidney injury Atrial Fibrillation, chronic Diabetes Mellitus type II Chronic diastolic congestive heart failure Coronary Artery Disease Hx CABG Parkinson's Seizure Disorder E.coli ESBL Bacteremia secondary to Acute Urinary Tract Infection - Renal ultrasound 10/18: "Benign-appearing bilateral small renal cysts as above. No other sonographic renal abnormality. Urinary bladder is decompressed limiting evaluation" - On meropenem (started 10/18) given history of ESBL - Blood cultures 10/18: Escherichia coli ESBL - Urine culture 10/18: Escherichia coli ESBL - Due to multiple comorbidities and ESBL infection, recommend continuation of antibiotic therapy for 14 days. Leukocytosis resolved. Afebrile Recent history of Spinal Osteomyelitis - hospitalized at [facility] for subdural hematoma and spinal osteomyelitis - Completed 6 weeks IV antibiotic Rocephin Recommendations - Bacteremia, UTI E.coli ESBL: Continue meropenem x 14 days (10/18-11/01) - Strict blood glucose control - Pressure offloading measures. Turn patient q2h. offload pressure on heels. - continue supportive care - seizure precautions pending inpatient rehab placement. SS/CM following. Case discussed with Dr. Cabrera NNilda
--- NOTE | 2023-10-27 17:43 | P.PN ---
Date of Service: 10/27/23 Subjective Feeling well this morning Working well with therapy No new complaint ROS 10 point ROS as noted above, otherwise negative Physical exam GEN: AAo x3,conversant HEENT: Normal conjunctiva, sclera anicteric CV: Regular rate and rhythm, no edema, no murmur appreciated, S1 S2 present Pulm: Nonlabored respirations on room air, symmetrical chest wall movement, bilateral clear breath sound ABD: Soft, nontender, nondistended, + BS present MSK: No joint tenderness, bruising to left foot phalanges, dressing to right foot, PICC line to Right upper arm, 2+ peripheral pulses Integumentary: No rashes Neuro: Normal speech, normal affect, NAD Vitals reviewed Assessment: Fall versus syncope- secondary to bacteremia/dehydration Left hip pain, left third toe dislocation S/P closed reduction E.coli ESBL bacteremia secondary to E.coli ESBL UTI Acute kidney injury secondary to dehydration/prerenal Chronic atrial fibrillation Chronic diastolic congestive heart failure with AICD in place CAD with previous CABG Diabetes mellitus type 2 GERD Hypertension Fibromyalgia Parkinson's Seizure disorder Plan: Fall versus syncope- secondary to bacteremia/dehydration CT head/C-spine negative for traumatic findings Monitor on telemetry, troponins trended flat PT consult-improving with PT Left hip pain, left third toe dislocation S/P closed reduction CT pelvis negative for fracture Orthopedics consult in place Toe dislocation reduced in ED Continue PT -continuing to ambulate in the hallway E.coli ESBL bacteremia secondary to E.coli ESBL UTI Only SIRS criteria with leukocytosis, not meeting sepsis criteria Completed course of IV antibiotics for 6 weeks finished ~10/16-10/17 Was recently at [facility] when she was diagnosed with osteomyelitis Noted to have 20,000 WBC, no fever, tachycardia or tachypnea 01/04 blood cultures 10/18 with E.Coli ESBL as well as urine culture repeat blood cultures drawn (10/26)- NGTD Does report urinary symptoms, has also had multiple ESBL UTIs Continue merrem, started 10/18, will need 2 weeks iv abx last day 11/01 Infectious disease consulted- started lactobacillus/acidophilus PICC line in place Acute kidney injury secondary to dehydration/prerenal improved,encourage PO intake- ate some breakfast this AM Chronic atrial fibrillation Chronic diastolic congestive heart failure with AICD in place CAD with previous CABG Home medications continued Denies chest pain or defibrillator shock/palpitations prior to event Stable Diabetes mellitus type 2 ACHS Accu-Chek, continue sliding scale insulin glucose <200 GERD Hypertension Fibromyalgia Parkinson's Seizure disorder Continue medications DVT PPX: Eliquis Code status: Full
[2023-10-27] MEDS: HOME MED [LATANOPROST 0.005% 2.5ML OPTH] OPTH SCH (21:00)
[2023-10-27] MEDS: ATORVASTATIN 80 MG TAB PO SCH (21:46)
--- NOTE | 2023-10-27 22:36 | PN ---
Date of Progress Note: 10/27/2023 Chief Complaint: Acute kidney injury secondary to prerenal azotemia. Subjective: The patient is feeling better. Renal function has improved. She denies dysuria, hematu yessica. Physical Examination: Lungs: Clear to auscultation bilaterally. Heart: S1, S2. Abdomen: Soft, benign, nontender. Extremities: No edema. Impression And Plan: 1.Acute kidney injury secondary to prerenal azotemia. Renal function improved to baseline. Continu e to monitor renal function, fluid balance. 2.Hypertension, controlled. Continue current medication. 3.Urinary tract infection. The patient is treated with antibiotics for infection risk secondary to extended-spectrum beta-lactamase. Continue current treatment. The patient denies dysuria, hematuria . 4.Congestive heart failure, chronic. Volemia is controlled. Diuretic on hold due to acute kidney i arsalan. BAMBI/MODAmita Voice ID: [id number] Report ID: [id number]
[2023-10-28] MEDS: Meropenem 1,000 MG in NA CHLORIDE 0.9% 100 ML IV SCH ×3 (00:04→17:17)
[2023-10-28 05:28] LABS: Potassium 4.9 mEq/L (3.5-5.1)
[2023-10-28] MEDS: PANTOPRAZOLE 40MG TABLET PO SCH (05:35)
[2023-10-28] MEDS: carvediloL 3.125 MG TAB PO SCH ×2 (05:35→17:16)
[2023-10-28] MEDS: INSULIN REGULAR (HUMAN) 100 UNIT/ML SQ SCH ×4 (07:30→21:00)
[2023-10-28] MEDS: CARBIDOPA/LEVODOPA 25/100 TAB PO SCH ×3 (08:52→20:33)
[2023-10-28] MEDS: SACUBITRIL/VALSARTAN 24/26 MG TAB PO SCH ×2 (08:52→20:33)
[2023-10-28] MEDS: SPIRONOLACTONE 25 MG TABLET PO SCH (08:52)
[2023-10-28] MEDS: LACTOBACILLUS/ACIDOPHILUS TAB PO SCH ×3 (08:52→17:17)
[2023-10-28] MEDS: GABAPENTIN 100 MG CAP PO SCH ×2 (08:52→20:33)
[2023-10-28] MEDS: DULOXETINE 30 MG CAP PO SCH ×2 (08:52→20:33)
[2023-10-28] MEDS: DOCUSATE NA 100 MG CAP PO SCH ×2 (08:52→20:33)
[2023-10-28] MEDS: APIXABAN 5 MG TABLET PO SCH ×2 (08:52→20:33)
[2023-10-28] MEDS: AMIODARONE HCL 200 MG TAB PO SCH (08:52)
[2023-10-28] MEDS: BETHANECHOL 10 MG TAB PO SCH ×3 (08:54→20:34)
--- NOTE | 2023-10-28 09:00 | P.PN ---
Date of Service: 10/28/23 Lashonda complaint: fall /syncope Subjective: Improving. No acute events overnight. Patient resting comfortably in bed. In no apparent distress. She denies any new or worsening complaints at this time. Physical Examination Temp Pulse Resp BP Pulse Ox 97.2 F 60 17 121/57 L 96 10/28/23 08:00 10/28/23 08:52 10/28/23 08:00 10/28/23 08:52 10/28/23 08:00 General: Alert, In no apparent distress, Oriented x3. HEENT: Atraumatic, Normocephalic. Respiratory: Clear to auscultation bilaterally. Unlabored respirations on room air. Cardiovascular: Regular rate/rhythm. trace BLE edema. Gastrointestinal: Normal bowel sounds, Soft and benign. Non-tender. Non- distended. Integumentary: Skin warm and dry. No rashes. Laboratory Data - Reviewed Microbiology Data - Blood cultures 10/18: Escherichia coli ESBL - Urine culture 10/18: Escherichia coli ESBL - Repeat blood cultures 10/26: no growth to date Imagings Data: - Reviewed Medications List: - Reviewed Assessment and Plan Problem List Gram-negative bacteremia secondary to acute urinary tract infection History of multi-drug resistant infection Acute kidney injury Atrial Fibrillation, chronic Diabetes Mellitus type II Chronic diastolic congestive heart failure Coronary Artery Disease Hx CABG Parkinson's Seizure Disorder E.coli ESBL Bacteremia secondary to Acute Urinary Tract Infection - Renal ultrasound 10/18: "Benign-appearing bilateral small renal cysts as above. No other sonographic renal abnormality. Urinary bladder is decompressed limiting evaluation" - On meropenem (started 10/18) given history of ESBL - Blood cultures 10/18: Escherichia coli ESBL - Urine culture 10/18: Escherichia coli ESBL - Due to multiple comorbidities and ESBL infection, recommend continuation of antibiotic therapy for 14 days. - improving Leukocytosis resolved. Afebrile Recent history of Spinal Osteomyelitis - hospitalized at [facility] for subdural hematoma and spinal osteomyelitis - Completed 6 weeks IV antibiotic Rocephin Recommendations - Bacteremia, UTI E.coli ESBL: Continue meropenem x 14 days (10/18-11/01). PICC line in place. - Strict blood glucose control - Pressure offloading measures. Turn patient q2h. offload pressure on heels. - continue supportive care - seizure precautions Inpatient rehab appeal pending. Case discussed with Dr. Cabrera N.
[2023-10-28 11:38] LABS: Hematocrit 34.8 % (36.0-45.0); Lymphocytes % 9.2 % (15.3-44.8); MCV 83.4 fL (80-100); MPV 7.2 fL (7.6-11.3); Platelets 437 thou/uL (152-406); RBC Red Blood Cell Count 4.17 M/uL (3.86-4.86)
[2023-10-28 12:39] LABS: Blood Morphology Comment NOT SEEN (NOT SEEN); Platelet Estimate INCR
--- NOTE | 2023-10-28 14:38 | P.PN ---
Subjective Date of Service: 10/28/23 Subjective: No new changes Physical Examination - Vital Signs Temperature: 98.3 F Blood Pressure: 140/65 Pulse: 71 Respirations: 16 Pulse Ox (%): 96 - Physical Exam General: Other (chronically ill-appearing) HEENT: Atraumatic, Normocephalic Neck: Supple Respiratory: Other (symmetric chest expansion) Cardiovascular: No rubs, No murmurs Gastrointestinal: No rebound, No guarding Musculoskeletal: No clubbing Integumentary: No warmth Neurological: Normal tone Urinary: Other (no bladder distention) External genitalia: Deferred Rectal: Deferred Assessment And Plan - Plan 1. Acute kidney injury secondary to prerenal state. Improved. SCr improved to 0.8-1.0. Encourage po fluid intake. 2. Hypertension, controlled. Cont current med regimen. 3. Congestive heart failure, diastolic dysfunction. Per other services. 4. Hyponatremia. Monitor. 5. UTI, ESBL e coli bacteremia. Abx per ID service. 6. Anemia. Monitor CBC.
--- NOTE | 2023-10-28 17:37 | P.PN ---
Date of Service: 10/28/23 Subjective She is awake and feeling well. She is working with physical. Awaiting Placement ROS 10 point ROS as noted above, otherwise negative Physical exam GEN: AAo x3,conversant, obese HEENT: Normal conjunctiva, sclera anicteric CV: RRR, no murmur appreciated, S1 S2 present Pulm: Nonlabored respirations on room air, symmetrical chest wall movement, bilateral clear breath sound ABD: Soft to palaption, NT/ND, + BS present MSK: bruising to left foot phalanges, dressing to right foot, PICC line to Right upper arm, 2+ peripheral pulses Integumentary: No rashes, bruising to left foot as above Neuro: Normal speech, normal affect, NAD Vitals reviewed Assessment: Fall versus syncope- secondary to bacteremia/dehydration Left hip pain, left third toe dislocation S/P closed reduction E.coli ESBL bacteremia secondary to E.coli ESBL UTI Acute kidney injury secondary to dehydration/prerenal Chronic atrial fibrillation Chronic diastolic congestive heart failure with AICD in place CAD with previous CABG Diabetes mellitus type 2 GERD Hypertension Fibromyalgia Parkinson's Seizure disorder Plan: Fall versus syncope- secondary to bacteremia/dehydration CT head/C-spine negative for traumatic findings Monitor on telemetry, troponins trended flat PT consult-participating with PT tolerating IV antibiotic therapy Left hip pain, left third toe dislocation S/P closed reduction CT pelvis negative for fracture Orthopedics consult in place Toe dislocation reduced in ED Continue PT -continuing to ambulate in the hallway E.coli ESBL bacteremia secondary to E.coli ESBL UTI Only SIRS criteria with leukocytosis, not meeting sepsis criteria Completed course of IV antibiotics for 6 weeks finished ~10/16-10/17 Was recently at [facility] when she was diagnosed with osteomyelitis Noted to have 20,000 WBC, no fever, tachycardia or tachypnea 01/04 blood cultures 10/18 with E.Coli ESBL as well as urine culture repeat blood cultures drawn (10/26)- NGTD Does report urinary symptoms, has also had multiple ESBL UTIs Continue merrem, started 10/18, will need 2 weeks iv abx last day 11/01 Infectious disease consulted- started lactobacillus/acidophilus PICC line in place Acute kidney injury secondary to dehydration/prerenal improved,encourage PO intake- ate some breakfast this AM Chronic atrial fibrillation Chronic diastolic congestive heart failure with AICD in place CAD with previous CABG Home medications continued Denies chest pain or defibrillator shock/palpitations prior to event Stable Diabetes mellitus type 2 ACHS Accu-Chek, continue sliding scale insulin glucose <200 GERD Hypertension Fibromyalgia Parkinson's Seizure disorder Continue medications DVT PPX: Eliquis Code status: Full
[2023-10-28] MEDS: ATORVASTATIN 80 MG TAB PO SCH (20:33)
[2023-10-28] MEDS: TRAMADOL HCL 50 MG TAB PO PRN (20:33)
[2023-10-28] MEDS: MELATONIN 5 MG TABLET PO PRN (20:33)
[2023-10-28] MEDS: HOME MED [LATANOPROST 0.005% 2.5ML OPTH] OPTH SCH (20:34)
[2023-10-29] MEDS: Meropenem 1,000 MG in NA CHLORIDE 0.9% 100 ML IV SCH ×3 (01:40→16:17)
[2023-10-29] MEDS: TRAMADOL HCL 50 MG TAB PO PRN ×2 (01:40→20:46)
[2023-10-29] MEDS: carvediloL 3.125 MG TAB PO SCH ×2 (05:10→17:33)
[2023-10-29] MEDS: PANTOPRAZOLE 40MG TABLET PO SCH (05:10)
[2023-10-29] MEDS: INSULIN REGULAR (HUMAN) 100 UNIT/ML SQ SCH ×4 (07:30→19:26)
[2023-10-29] MEDS: DULOXETINE 30 MG CAP PO SCH ×2 (08:04→20:46)
[2023-10-29] MEDS: CARBIDOPA/LEVODOPA 25/100 TAB PO SCH ×3 (08:04→20:46)
[2023-10-29] MEDS: LACTOBACILLUS/ACIDOPHILUS TAB PO SCH ×3 (08:04→16:17)
[2023-10-29] MEDS: SACUBITRIL/VALSARTAN 24/26 MG TAB PO SCH ×2 (08:05→20:46)
[2023-10-29] MEDS: AMIODARONE HCL 200 MG TAB PO SCH (08:05)
[2023-10-29] MEDS: DOCUSATE NA 100 MG CAP PO SCH ×2 (08:05→20:45)
[2023-10-29] MEDS: APIXABAN 5 MG TABLET PO SCH ×2 (08:05→20:46)
[2023-10-29] MEDS: SPIRONOLACTONE 25 MG TABLET PO SCH (08:05)
[2023-10-29] MEDS: GABAPENTIN 100 MG CAP PO SCH ×2 (08:05→20:46)
[2023-10-29] MEDS: BETHANECHOL 10 MG TAB PO SCH ×3 (08:06→20:45)
--- NOTE | 2023-10-29 16:59 | P.PN ---
Date of Service: 10/29/23 Subjective Awake and smiling this morning. She reports being a night owl. She prefers to sit in the chair later in the afternoon. Left foot swelling has improved, bruising still present. ROS 10 point ROS as noted above, otherwise negative Physical exam GEN: Alert and oriented x3, NAD, obese HEENT: Normal conjunctiva, sclera anicteric CV: RRR, no murmur appreciated, S1 S2 present, BP stable Pulm: bilateral clear breath sound, nonlabored breathing on room air ABD: Soft/ benign to palaption, NT/ND, + BS present MSK: bruising to left foot phalanges, dressing to right foot, PICC line to Right upper arm, 2+ peripheral pulses Integumentary: No rashes, bruising to left foot as above Neuro: Normal speech, normal affect Vitals reviewed Assessment: Fall versus syncope- secondary to bacteremia/dehydration Left hip pain, left third toe dislocation S/P closed reduction E.coli ESBL bacteremia secondary to E.coli ESBL UTI Acute kidney injury secondary to dehydration/prerenal Chronic atrial fibrillation Chronic diastolic congestive heart failure with AICD in place CAD with previous CABG Diabetes mellitus type 2 GERD Hypertension Fibromyalgia Parkinson's Seizure disorder Plan: Fall versus syncope- secondary to bacteremia/dehydration CT head/C-spine negative for traumatic findings Monitor on telemetry, troponins trended flat PT consult-participating with PT tolerating IV antibiotic therapy Left hip pain, left third toe dislocation S/P closed reduction CT pelvis negative for fracture Orthopedics consult in place Toe dislocation reduced in ED- pain controlled Continue PT -participating well E.coli ESBL bacteremia secondary to E.coli ESBL UTI Only SIRS criteria with leukocytosis, not meeting sepsis criteria Completed course of IV antibiotics for 6 weeks finished ~10/16-10/17 Was recently at [facility] when she was diagnosed with osteomyelitis Noted to have 20,000 WBC, no fever, tachycardia or tachypnea 01/04 blood cultures 10/18 with E.Coli ESBL as well as urine culture repeat blood cultures drawn (10/26)- clear Does report urinary symptoms, has also had multiple ESBL UTIs Continue merrem, started 10/18, will need 2 weeks iv abx last day 11/01 Infectious disease consulted- started lactobacillus/acidophilus PICC line in place, stable Acute kidney injury secondary to dehydration/prerenal improved,encourage PO intake- ate some breakfast this AM Chronic atrial fibrillation Chronic diastolic congestive heart failure with AICD in place CAD with previous CABG Home medications continued Denies chest pain or defibrillator shock/palpitations prior to event Stable Diabetes mellitus type 2 ACHS Accu-Chek, continue sliding scale insulin glucose <150 GERD Hypertension Fibromyalgia Parkinson's Seizure disorder Continue medications DVT PPX: Eliquis Code status: Full
[2023-10-29] MEDS: ATORVASTATIN 80 MG TAB PO SCH (20:45)
[2023-10-29] MEDS: MELATONIN 5 MG TABLET PO PRN (20:46)
[2023-10-29] MEDS: HOME MED [LATANOPROST 0.005% 2.5ML OPTH] OPTH SCH (20:46)
[2023-10-30] MEDS: Meropenem 1,000 MG in NA CHLORIDE 0.9% 100 ML IV SCH ×3 (00:42→20:53)
[2023-10-30] MEDS: PANTOPRAZOLE 40MG TABLET PO SCH (05:20)
[2023-10-30] MEDS: carvediloL 3.125 MG TAB PO SCH ×2 (05:20→17:00)
[2023-10-30] MEDS: INSULIN REGULAR (HUMAN) 100 UNIT/ML SQ SCH ×4 (07:30→20:12)
[2023-10-30] MEDS: BETHANECHOL 10 MG TAB PO SCH ×3 (09:00→20:53)
[2023-10-30] MEDS: CARBIDOPA/LEVODOPA 25/100 TAB PO SCH ×3 (09:10→20:52)
[2023-10-30] MEDS: DULOXETINE 30 MG CAP PO SCH ×2 (09:11→20:52)
[2023-10-30] MEDS: SACUBITRIL/VALSARTAN 24/26 MG TAB PO SCH ×2 (09:11→20:52)
[2023-10-30] MEDS: AMIODARONE HCL 200 MG TAB PO SCH (09:11)
[2023-10-30] MEDS: GABAPENTIN 100 MG CAP PO SCH ×2 (09:11→20:52)
[2023-10-30] MEDS: APIXABAN 5 MG TABLET PO SCH ×2 (09:11→20:52)
[2023-10-30] MEDS: DOCUSATE NA 100 MG CAP PO SCH ×2 (09:12→20:52)
[2023-10-30] MEDS: LACTOBACILLUS/ACIDOPHILUS TAB PO SCH ×3 (09:12→17:00)
[2023-10-30] MEDS: SPIRONOLACTONE 25 MG TABLET PO SCH (09:12)
--- NOTE | 2023-10-30 16:23 | P.PN ---
Date of Service: 10/30/23 Subjective No new complaints Feeling well this morning Awaiting placement ROS 10 point ROS as noted above, otherwise negative Physical exam GEN: NAD, obese, AAOx3, conversant HEENT: Normal conjunctiva, sclera anicteric CV: RRR, no murmur or gallop appreciated, S1 S2 present, BP stable Pulm: Symmetrical chest wall movement, bilateral clear breath sound, nonlabored breathing on room air ABD: bowel sounds present, Soft/ benign NT/ND on palaption MSK: bruising to left foot phalanges, dressing to right foot, PICC line to Right upper arm, 2+ peripheral pulses Integumentary: No rashes, bruising to left foot as above Neuro: Normal speech, normal affect Vitals reviewed Assessment: Fall versus syncope- secondary to bacteremia/dehydration Left hip pain, left third toe dislocation S/P closed reduction E.coli ESBL bacteremia secondary to E.coli ESBL UTI Acute kidney injury secondary to dehydration/prerenal Chronic atrial fibrillation Chronic diastolic congestive heart failure with AICD in place CAD with previous CABG Diabetes mellitus type 2 GERD Hypertension Fibromyalgia Parkinson's Seizure disorder Plan: Fall versus syncope- secondary to bacteremia/dehydration CT head/C-spine negative for traumatic findings Monitor on telemetry, troponins trended flat fall precautions in place PT consult-participating with PT tolerating IV antibiotic therapy Left hip pain, left third toe dislocation S/P closed reduction CT pelvis negative for fracture Orthopedics consult in place Toe dislocation reduced in ED- pain controlled Continue PT -participating well Bruising and swelling are improving E.coli ESBL bacteremia secondary to E.coli ESBL UTI Only SIRS criteria with leukocytosis, not meeting sepsis criteria Completed course of IV antibiotics for 6 weeks finished ~10/16-10/17 Was recently at [facility] when she was diagnosed with osteomyelitis Noted to have 20,000 WBC, no fever, tachycardia or tachypnea 01/04 blood cultures 10/18 with E.Coli ESBL as well as urine culture repeat blood cultures drawn (10/26)- clear Does report urinary symptoms, has also had multiple ESBL UTIs Continue merrem, started 10/18, will need 2 weeks iv abx last day 11/01 Infectious disease consulted- started lactobacillus/acidophilus PICC line in place, stable Acute kidney injury secondary to dehydration/prerenal improved,encourage PO intake-eating well Chronic atrial fibrillation Chronic diastolic congestive heart failure with AICD in place CAD with previous CABG Home medications continued Denies chest pain or defibrillator shock/palpitations prior to event Stable Diabetes mellitus type 2 ACHS Accu-Chek, continue sliding scale insulin glucose <150- stable GERD Hypertension Fibromyalgia Parkinson's Seizure disorder Continue medications DVT PPX: Eliquis Code status: Full
[2023-10-30] MEDS ORDERED: Meropenem 1,000 MG in NA CHLORIDE 0.9% 100 ML IV SCH (17:00)
[2023-10-30] MEDS: ATORVASTATIN 80 MG TAB PO SCH (20:52)
[2023-10-30] MEDS: HOME MED [LATANOPROST 0.005% 2.5ML OPTH] OPTH SCH (20:53)
[2023-10-31] MEDS: TRAMADOL HCL 50 MG TAB PO PRN ×3 (02:42→23:58)
[2023-10-31] MEDS: MELATONIN 5 MG TABLET PO PRN (02:43)
[2023-10-31 05:15] LABS: Absolute Lymphocytes (CBC) 0.9 K/uL (0.7-4.9); Lymphocytes % 8.4 % (15.3-44.8); MCV 83.3 fL (80-100); MPV 6.8 fL (7.6-11.3); Platelets 490 thou/uL (152-406); RBC Red Blood Cell Count 3.96 M/uL (3.86-4.86)
[2023-10-31] MEDS: PANTOPRAZOLE 40MG TABLET PO SCH (06:13)
[2023-10-31] MEDS: carvediloL 3.125 MG TAB PO SCH ×2 (06:14→16:59)
[2023-10-31] MEDS: INSULIN REGULAR (HUMAN) 100 UNIT/ML SQ SCH ×4 (07:30→20:07)
[2023-10-31] MEDS: AMIODARONE HCL 200 MG TAB PO SCH (08:36)
[2023-10-31] MEDS: DULOXETINE 30 MG CAP PO SCH ×2 (08:36→20:58)
[2023-10-31] MEDS: SACUBITRIL/VALSARTAN 24/26 MG TAB PO SCH ×2 (08:36→20:59)
[2023-10-31] MEDS: Meropenem 1,000 MG in NA CHLORIDE 0.9% 100 ML IV SCH ×2 (08:36→20:57)
[2023-10-31] MEDS: GABAPENTIN 100 MG CAP PO SCH ×2 (08:36→20:59)
[2023-10-31] MEDS: LACTOBACILLUS/ACIDOPHILUS TAB PO SCH ×3 (08:37→16:59)
[2023-10-31] MEDS: CARBIDOPA/LEVODOPA 25/100 TAB PO SCH ×3 (08:37→20:58)
[2023-10-31] MEDS: SPIRONOLACTONE 25 MG TABLET PO SCH (08:37)
[2023-10-31] MEDS: APIXABAN 5 MG TABLET PO SCH ×2 (08:37→20:59)
[2023-10-31] MEDS: DOCUSATE NA 100 MG CAP PO SCH ×2 (08:37→20:58)
[2023-10-31] MEDS: BETHANECHOL 10 MG TAB PO SCH ×3 (08:38→20:58)
--- NOTE | 2023-10-31 09:41 | P.PN ---
Date of Service: 10/31/23 [facility] complaint: fall /syncope Subjective: Improving. No acute events overnight. In no apparent distress. + left toe pain from fracture + generalized weakness. Physical Examination Temp Pulse Resp BP Pulse Ox 96.9 F 60 96 H 130/74 94 10/31/23 08:00 10/31/23 08:37 10/31/23 09:29 10/31/23 08:37 10/31/23 08:00 General: Alert, In no apparent distress, Oriented x3. HEENT: Atraumatic, Normocephalic. Respiratory: Clear to auscultation bilaterally. Unlabored respirations on room air. Cardiovascular: Regular rate/rhythm. BLE edema 1+. Gastrointestinal: Normal bowel sounds, Soft and benign. Non-tender. Non- distended. Integumentary: Skin warm and dry. No rashes. Laboratory Data - Reviewed Microbiology Data - Blood cultures 10/18: Escherichia coli ESBL - Urine culture 10/18: Escherichia coli ESBL - Repeat blood cultures 10/26: no growth to date Imagings Data: - Reviewed Medications List: - Reviewed Assessment and Plan Problem List Gram-negative bacteremia secondary to acute urinary tract infection History of multi-drug resistant infection Acute kidney injury Atrial Fibrillation, chronic Diabetes Mellitus type II Chronic diastolic congestive heart failure Coronary Artery Disease Hx CABG Parkinson's Seizure Disorder E.coli ESBL Bacteremia secondary to Acute Urinary Tract Infection - Renal ultrasound 10/18: "Benign-appearing bilateral small renal cysts as above. No other sonographic renal abnormality. Urinary bladder is decompressed limiting evaluation" - On meropenem (started 10/18) given history of ESBL - Blood cultures 10/18: Escherichia coli ESBL - Urine culture 10/18: Escherichia coli ESBL - Due to multiple comorbidities and ESBL infection, recommend continuation of antibiotic therapy for 14 days. - improving Leukocytosis resolved. Afebrile Recent history of Spinal Osteomyelitis - hospitalized at [facility] for subdural hematoma and spinal osteomyelitis - Completed 6 weeks IV antibiotic Rocephin Recommendations - Bacteremia, UTI E.coli ESBL: Continue meropenem x 14 days (10/18-11/01). - On Meropenem day 13 of 14. - Strict blood glucose control - Pressure offloading measures. Turn patient q2h. offload pressure on heels. - continue supportive care - seizure precautions - Physical therapy Case discussed with Bill Jaquez
--- NOTE | 2023-10-31 11:45 | PN ---
Date of Progress Note: 10/29/2023 Chief Complaint: Acute kidney injury. Subjective: The patient has nonoliguric urine output. Renal function improved, acute kidney injury secondary to prerenal state, congestive heart failure, systolic dysfunction. Volemia is controlled. Review of Systems: Denies chest pain, palpitation. Physical Examination: Lungs: Clear to auscultation bilaterally. Heart: S1, S2. Abdomen: Soft, benign, nontender. Extremities: Edema in both feet. Impression And Plan: 1. Patient has history of hypertension, benign nephrosclerosis, congestive heart failure dysfunction and heart failure syndrome. Renal function overall improved. 2. Admission to the hospital. Patient found to have hyponatremia secondary to cardiorenal syndrome. Continue to monitor p.o. fluid intake and urine output. 3. Urinary tract infection. ESBL E coli bacteremia. Followup surveillance. Blood culture did not show growth. Continue antibiotics per ID service recommendation. 4. Anemia. Monitor CBC. EB/MODAmita Voice ID: [id number] Report ID: [id number] MTDD
--- NOTE | 2023-10-31 11:45 | PN ---
Date of Progress Note: 10/30/2023 Chief Complaint: Acute kidney injury. Subjective: nonoliguric urine. Renal function has improved. Review of Systems: Denies chest pain, palpitation. Physical Examination: Lungs: Clear to auscultation bilaterally. Heart: S1, S2. Abdomen: Soft. Extremities: No edema. Impression: 1.Patient has acute kidney injury secondary to prerenal renal function improved to baseli ne and is ranging from 0.8 to 1.0 fluid intake. 2.Hypertension, controlled. Continue current medical management. 3.Congestive heart failure, diastolic dysfunction . 4.Hyponatremia, mild. Monitor. improved. 5.Urinary tract infection. Extended-spectrum beta-lactamase, Escherichia coli therapy. BAMBI/AQUILINO Voice ID: [id number] Report ID: [id number]
--- NOTE | 2023-10-31 16:23 | P.PN ---
Date of Service: 10/31/23 Subjective No new complaints Pleasantly comfortable in bed Awaiting placement, willing to fifth floor, also pending [place] ROS 10 point ROS as noted above, otherwise negative Physical exam GEN: Alert and oriented x3, NAD, Obese HEENT: Normal conjunctiva, sclera anicteric CV: Regular rate and rhythm, normal S1-S2, no murmur or gallop appreciated Pulm: Symmetrical chest wall movement, bilateral clear breath sound, on room air ABD: bowel sounds present, Soft/ benign NT/ND on palaption MSK: bruising to left foot phalanges, some swelling reduced, dressing to right foot, PICC line to Right upper arm, 2+ peripheral pulses Integumentary: No rashes, bruising to left foot as above Neuro: Normal speech, normal affect Vitals reviewed Assessment: Fall versus syncope- secondary to bacteremia/dehydration Left hip pain, left third toe dislocation S/P closed reduction E.coli ESBL bacteremia secondary to E.coli ESBL UTI Acute kidney injury secondary to dehydration/prerenal Chronic atrial fibrillation Chronic diastolic congestive heart failure with AICD in place CAD with previous CABG Diabetes mellitus type 2 GERD Hypertension Fibromyalgia Parkinson's Seizure disorder Plan: Fall versus syncope- secondary to bacteremia/dehydration CT head/C-spine negative for traumatic findings Monitor on telemetry, troponins trended flat fall precautions in place PT consult-participating with PT tolerating IV antibiotic therapy Left hip pain, left third toe dislocation S/P closed reduction CT pelvis negative for fracture Orthopedics consult in place Toe dislocation reduced in ED- pain controlled Continue PT -participating well, ambulated 300 feet today Bruising and swelling are improving E.coli ESBL bacteremia secondary to E.coli ESBL UTI Only SIRS criteria with leukocytosis, not meeting sepsis criteria Completed course of IV antibiotics for 6 weeks finished ~10/16-10/17 Was recently at [facility] when she was diagnosed with osteomyelitis Noted to have 20,000 WBC, no fever, tachycardia or tachypnea 01/04 blood cultures 10/18 with E.Coli ESBL as well as urine culture repeat blood cultures drawn (10/26)- clear Does report urinary symptoms, has also had multiple ESBL UTIs Continue merrem, started 10/18, will need 2 weeks iv abx last day 11/01 Infectious disease consulted- started lactobacillus/acidophilus PICC line in place, stable and infuses well Acute kidney injury secondary to dehydration/prerenal improved,encourage PO intake-eating well Chronic atrial fibrillation Chronic diastolic congestive heart failure with AICD in place CAD with previous CABG Home medications continued Denies chest pain or defibrillator shock/palpitations prior to event Stable Diabetes mellitus type 2 ACHS Accu-Chek, continue sliding scale insulin glucose 127-tolerating treatment GERD Hypertension Fibromyalgia Parkinson's Seizure disorder Continue medications DVT PPX: Eliquis Code status: Full
[2023-10-31] MEDS: ATORVASTATIN 80 MG TAB PO SCH (20:59)
[2023-10-31] MEDS: HOME MED [LATANOPROST 0.005% 2.5ML OPTH] OPTH SCH (20:59)
--- NOTE | 2023-10-31 22:59 | PN ---
Date of Progress Note: 10/31/2023 Chief Complaint: Acute kidney injury, urinary tract infection. Subjective: The patient has nonoliguric urine output. Renal function has improved to baseline. Review of Systems: Denies chest pain, palpitation. Physical Examination: Lungs: Clear to auscultation bilaterally. Heart: S1, S2. Abdomen: Soft, benign. Extremities: Slight edema in both ankles. Impression And Plan: 1.The patient has acute kidney injury secondary to prerenal azotemia. Renal function improved to ba seline and serum creatinine level is ranging from 0.8 to 1.0. Continue adequate fluid intake. The p atient completed IV fluids. 2.Hypertension, controlled. Continue current medication. 3.Congestive heart failure, diastolic dysfunction. The patient is euvolemic. 4.Hyponatremia, mild and improved. Monitor electrolytes. Avoid nephrotoxic medication. 5.Urinary tract infection. Continue antibiotics. EB/MODL Voice ID: [id number] Report ID: [id number]
[2023-11-01 05:29] LABS: Hematocrit 35.4 % (36.0-45.0); Lymphocytes % 11.8 % (15.3-44.8); MCV 83.4 fL (80-100); Platelets 458 thou/uL (152-406); RBC Red Blood Cell Count 4.24 M/uL (3.86-4.86)
[2023-11-01] MEDS: PANTOPRAZOLE 40MG TABLET PO SCH (05:51)
[2023-11-01] MEDS: carvediloL 3.125 MG TAB PO SCH ×2 (05:51→17:42)
[2023-11-01] MEDS: INSULIN REGULAR (HUMAN) 100 UNIT/ML SQ SCH ×4 (07:30→21:00)
[2023-11-01] MEDS: Meropenem 1,000 MG in NA CHLORIDE 0.9% 100 ML IV SCH ×2 (08:36→21:07)
[2023-11-01] MEDS: SACUBITRIL/VALSARTAN 24/26 MG TAB PO SCH ×2 (08:37→21:05)
[2023-11-01] MEDS: CARBIDOPA/LEVODOPA 25/100 TAB PO SCH ×3 (08:37→21:05)
[2023-11-01] MEDS: AMIODARONE HCL 200 MG TAB PO SCH (08:37)
[2023-11-01] MEDS: DULOXETINE 30 MG CAP PO SCH ×2 (08:37→21:06)
[2023-11-01] MEDS: DOCUSATE NA 100 MG CAP PO SCH ×2 (08:37→21:06)
[2023-11-01] MEDS: GABAPENTIN 100 MG CAP PO SCH ×2 (08:37→21:05)
[2023-11-01] MEDS: APIXABAN 5 MG TABLET PO SCH ×2 (08:37→21:06)
[2023-11-01] MEDS: LACTOBACILLUS/ACIDOPHILUS TAB PO SCH ×3 (08:38→17:42)
[2023-11-01] MEDS: SPIRONOLACTONE 25 MG TABLET PO SCH (08:38)
[2023-11-01] MEDS: BETHANECHOL 10 MG TAB PO SCH ×3 (08:39→21:00)
--- NOTE | 2023-11-01 09:05 | P.PN ---
Date of Service: 11/01/23 [facility] complaint: fall /syncope Subjective: Improving. In no apparent distress. Denies any new or worsening complaints at this time. Pending IPR appeal. CM/SS following. Physical Examination Temp Pulse Resp BP Pulse Ox 96.5 F L 60 17 142/60 H 97 11/01/23 04:00 11/01/23 08:38 11/01/23 04:00 11/01/23 08:38 11/01/23 04:00 General: Alert, In no apparent distress, Oriented x3. HEENT: Atraumatic, Normocephalic. Respiratory: Clear to auscultation bilaterally. Unlabored respirations on room air. Cardiovascular: Regular rate/rhythm. BLE edema 1+. Gastrointestinal: Normal bowel sounds, Soft and benign. Non-tender. Non- distended. Integumentary: Skin warm and dry. No rashes. Laboratory Data - Reviewed Microbiology Data - Blood cultures 10/18: Escherichia coli ESBL - Urine culture 10/18: Escherichia coli ESBL - Repeat blood cultures 10/26: no growth to date Imagings Data: - Reviewed Medications List: Amiodarone HCl (Amiodarone Hcl 200 Mg Tab) 200 mg PO DAILY COUNTS INCLUDE 234 BEDS AT THE [facility] Last Admin: 11/01/23 08:37 Dose: 200 mg Apixaban (Apixaban 5 Mg Tablet) 5 mg PO BID COUNTS INCLUDE 234 BEDS AT THE [facility] Last Admin: 11/01/23 08:37 Dose: 5 mg Atorvastatin Calcium (Atorvastatin 80 Mg Tab) 80 mg PO BEDTIME COUNTS INCLUDE 234 BEDS AT THE [facility] Last Admin: 10/31/23 20:59 Dose: 80 mg Bethanechol Chloride (Bethanechol 10 Mg Tab) 10 mg PO TID COUNTS INCLUDE 234 BEDS AT THE [facility] Last Admin: 11/01/23 08:39 Dose: 10 mg Carbidopa/Levodopa (Carbidopa/Levodopa 25/100 Tab) 1 tab PO TID COUNTS INCLUDE 234 BEDS AT THE [facility] Last Admin: 11/01/23 08:37 Dose: 1 tab Carvedilol (Carvedilol 3.125 Mg Tab) 3.125 mg PO BID 6AM 6PM COUNTS INCLUDE 234 BEDS AT THE [facility] Last Admin: 11/01/23 05:51 Dose: 3.125 mg Docusate Sodium (Docusate Na 100 Mg Cap) 100 mg PO BID COUNTS INCLUDE 234 BEDS AT THE [facility] Last Admin: 11/01/23 08:37 Dose: 100 mg Duloxetine HCl (Duloxetine 30 Mg Cap) 60 mg PO BID COUNTS INCLUDE 234 BEDS AT THE [facility] Last Admin: 11/01/23 08:37 Dose: 60 mg Gabapentin (Gabapentin 100 Mg Cap) 100 mg PO BID THOMAS Last Admin: 11/01/23 08:37 Dose: 100 mg Home Med (Home Med [Latanoprost 0.005% 2.5ml Opth]) 1 ea OPTH BEDTIME COUNTS INCLUDE 234 BEDS AT THE [facility] Last Admin: 10/31/23 20:59 Dose: Not Given Meropenem 1,000 mg/ Sodium (Chloride) 100 mls @ 200 mls/hr IV Q12HR COUNTS INCLUDE 234 BEDS AT THE [facility] Stop: 11/01/23 21:01 Last Admin: 11/01/23 08:36 Dose: 100 mls Insulin Human Regular (Insulin Regular (Human) 100 Unit/Ml) 0 unit SQ ACHS COUNTS INCLUDE 234 BEDS AT THE [facility]; Protocol Last Admin: 11/01/23 07:30 Dose: Not Given Lactobacillus Acidoph/Bulgaricus (Lactobacillus/Acidophilus Tab) 1 tab PO TIDWM COUNTS INCLUDE 234 BEDS AT THE [facility] Last Admin: 11/01/23 08:38 Dose: 1 tab Melatonin (Melatonin 5 Mg Tablet) 10 mg PO BEDTIME PRN PRN PRN Reason: INSOMNIA Last Admin: 10/31/23 02:43 Dose: 10 mg Pantoprazole Sodium (Pantoprazole 40mg Tablet) 40 mg PO DAILYAC COUNTS INCLUDE 234 BEDS AT THE [facility]; Protocol Last Admin: 11/01/23 05:51 Dose: 40 mg Spironolactone (Spironolactone 25 Mg Tablet) 25 mg PO DAILY COUNTS INCLUDE 234 BEDS AT THE [facility] Last Admin: 11/01/23 08:38 Dose: 25 mg Tramadol HCl (Tramadol Hcl 50 Mg Tab) 50 mg PO TID PRN PRN Reason: Pain scale 5-7 (Moderate) Assessment and Plan Problem List Gram-negative bacteremia secondary to acute urinary tract infection History of multi-drug resistant infection Acute kidney injury Atrial Fibrillation, chronic Diabetes Mellitus type II Chronic diastolic congestive heart failure Coronary Artery Disease Hx CABG Parkinson's Seizure Disorder E.coli ESBL Bacteremia secondary to Acute Urinary Tract Infection - Renal ultrasound 10/18: "Benign-appearing bilateral small renal cysts as above. No other sonographic renal abnormality. Urinary bladder is decompressed limiting evaluation" - Blood cultures 10/18: Escherichia coli ESBL - Urine culture 10/18: Escherichia coli ESBL - Due to multiple comorbidities and ESBL infection, recommend continuation of antibiotic therapy for 14 days (10/18-11/01) - On meropenem (started 10/18) Leukocytosis resolved. Afebrile Recent history of Spinal Osteomyelitis - hospitalized at [facility] for subdural hematoma and spinal osteomyelitis - Completed 6 weeks IV antibiotic Rocephin Recommendations - Bacteremia, UTI E.coli ESBL: Continue meropenem x 14 days (10/18-11/01). - On Meropenem day 14/14. Discontinue after today's dosing. - Strict blood glucose control - Pressure offloading measures. - continue supportive care - fall precautions - Physical therapy Case discussed with Bill Jaquez
[2023-11-01] MEDS: TRAMADOL HCL 50 MG TAB PO PRN ×2 (09:06→21:16)
[2023-11-01 09:53] LABS: Blood Morphology Comment NOT SEEN (NOT SEEN); Platelet Estimate ADEQ
--- NOTE | 2023-11-01 11:56 | P.PN ---
Date of Service: 11/01/23 Subjective No new complaints Pleasantly comfortable in bed Working well with PT ROS 10 point ROS as noted above, otherwise negative Physical exam GEN: Alert and oriented x3, NAD, Obese HEENT: Normal conjunctiva, sclera anicteric CV: Regular rate and rhythm, normal S1-S2, no murmur or gallop appreciated Pulm: Symmetrical chest wall movement, bilateral clear breath sound, on room air ABD: bowel sounds present, Soft/ benign NT/ND on palaption MSK: bruising to left foot phalanges, some swelling reduced, dressing to right foot, PICC line to Right upper arm, 2+ peripheral pulses Integumentary: No rashes, bruising to left foot as above Neuro: Normal speech, normal affect Vitals reviewed Assessment: Fall versus syncope- secondary to bacteremia/dehydration Left hip pain, left third toe dislocation S/P closed reduction E.coli ESBL bacteremia secondary to E.coli ESBL UTI Acute kidney injury secondary to dehydration/prerenal Chronic atrial fibrillation Chronic diastolic congestive heart failure with AICD in place CAD with previous CABG Diabetes mellitus type 2 GERD Hypertension Fibromyalgia Parkinson's Seizure disorder Plan: Fall versus syncope- secondary to bacteremia/dehydration CT head/C-spine negative for traumatic findings Monitor on telemetry, troponins trended flat fall precautions in place PT consult-participating with PT tolerating IV antibiotic therapy Left hip pain, left third toe dislocation S/P closed reduction CT pelvis negative for fracture Toe dislocation reduced in ED- pain controlled Continue PT -participating well Bruising and swelling are improving E.coli ESBL bacteremia secondary to E.coli ESBL UTI Only SIRS criteria with leukocytosis, not meeting sepsis criteria Completed course of IV antibiotics for 6 weeks finished ~10/16-10/17 Was recently at [facility] when she was diagnosed with osteomyelitis Noted to have 20,000 WBC, no fever, tachycardia or tachypnea 01/04 blood cultures 10/18 with E.Coli ESBL as well as urine culture repeat blood cultures drawn (10/26)- clear Does report urinary symptoms, has also had multiple ESBL UTIs Continue merrem, started 10/18, will need 2 weeks iv abx last day 11/01 Infectious disease consulted- started lactobacillus/acidophilus PICC line in place, stable and infuses well Acute kidney injury secondary to dehydration/prerenal improved,encourage PO intake-eating well Chronic atrial fibrillation Chronic diastolic congestive heart failure with AICD in place CAD with previous CABG Home medications continued Denies chest pain or defibrillator shock/palpitations prior to event Stable Diabetes mellitus type 2 ACHS Accu-Chek, continue sliding scale insulin GERD Hypertension Fibromyalgia Parkinson's Seizure disorder Continue medications DVT PPX: Eliquis Code status: Full
--- NOTE | 2023-11-01 16:59 | PN ---
Date of Progress Note: 11/01/2023 Subjective: The patient was admitted to the hospital with acute kidney injury, UTI. Patient was sandrine ated, recovered. Her UTI was secondary to ESBL. Objective: Vital Signs: When I saw the patient, blood pressure 142/60, pulse of 60, afebrile. Chest: Clear to auscultation. Heart: S1, S2 regular. Abdomen: Soft, nontender. Extremities: No edema. Neurologic: Alert. No focality. Laboratory Data: Hemoglobin 11.3, sodium 140, potassium 5, bicarb 30, BUN 23, creatinine 0.9, calciu m 9.1. Current Medications: The patient on, include: 1.Meropenem. 2.Eliquis. 3.Atorvastatin. 4.Carvedilol. 5.Entresto. 6.Spironolactone. 7.Gabapentin. 8.Sinemet. 9.Pantoprazole. Assessment And Plan: 1.Acute kidney injury secondary to poor perfusion ATN, toxic ATN secondary to urinary tract infectio n, recovered, resolved. 2.Urinary tract infection secondary to ESBL, on meropenem, dose appropriate. We will monitor. 3.Hyponatremia depletion, now resolved. SCARLETT/AQUILINO Voice ID: [id number] Report ID: [id number]
[2023-11-01] MEDS: HOME MED [LATANOPROST 0.005% 2.5ML OPTH] OPTH SCH (21:00)
[2023-11-01] MEDS: ATORVASTATIN 80 MG TAB PO SCH (21:06)
[2023-11-02] MEDS: PANTOPRAZOLE 40MG TABLET PO SCH (06:37)
[2023-11-02] MEDS: carvediloL 3.125 MG TAB PO SCH ×2 (06:37→17:52)
[2023-11-02] MEDS: INSULIN REGULAR (HUMAN) 100 UNIT/ML SQ SCH ×4 (07:30→21:00)
[2023-11-02] MEDS: APIXABAN 5 MG TABLET PO SCH ×2 (08:36→20:54)
[2023-11-02] MEDS: SACUBITRIL/VALSARTAN 24/26 MG TAB PO SCH ×2 (08:36→20:54)
[2023-11-02] MEDS: DOCUSATE NA 100 MG CAP PO SCH ×2 (08:36→20:54)
[2023-11-02] MEDS: SPIRONOLACTONE 25 MG TABLET PO SCH (08:37)
[2023-11-02] MEDS: LACTOBACILLUS/ACIDOPHILUS TAB PO SCH ×3 (08:37→17:52)
[2023-11-02] MEDS: GABAPENTIN 100 MG CAP PO SCH ×2 (08:37→20:54)
[2023-11-02] MEDS: DULOXETINE 30 MG CAP PO SCH ×2 (08:37→20:54)
[2023-11-02] MEDS: CARBIDOPA/LEVODOPA 25/100 TAB PO SCH ×3 (08:37→20:54)
[2023-11-02] MEDS: AMIODARONE HCL 200 MG TAB PO SCH (08:37)
[2023-11-02] MEDS: BETHANECHOL 10 MG TAB PO SCH ×3 (08:38→20:54)
--- NOTE | 2023-11-02 09:34 | P.PN ---
Date of Service: 11/02/23 [facility] complaint: fall /syncope Subjective: In no apparent distress. No worsening complaints at this time. Completed 14 days of IV antibiotic therapy. Inpatient rehab denied, pending SNF placement. Physical Examination Temp Pulse Resp BP Pulse Ox 97.1 F 60 18 129/55 L 96 11/02/23 04:00 11/02/23 08:37 11/02/23 04:00 11/02/23 08:37 11/02/23 04:00 General: In no apparent distress, Oriented x3. HEENT: Atraumatic, Normocephalic. Neck supple. Respiratory: Clear to auscultation bilaterally. No wheezes/rhonchi/crackles. Unlabored respirations. Cardiovascular: Regular rate/rhythm. BLE edema 1+. Gastrointestinal: Normal bowel sounds x4. Non-tender. Non-distended. Integumentary: Skin warm and dry. Laboratory Data - Reviewed Microbiology Data - Blood cultures 10/18: Escherichia coli ESBL - Urine culture 10/18: Escherichia coli ESBL - Repeat blood cultures 10/26: no growth to date Imagings Data: - Reviewed Medications List: - Reviewed Assessment and Plan Problem List Gram-negative bacteremia secondary to acute urinary tract infection History of multi-drug resistant infection Acute kidney injury Atrial Fibrillation, chronic Diabetes Mellitus type II Chronic diastolic congestive heart failure Coronary Artery Disease Hx CABG Parkinson's Seizure Disorder E.coli ESBL Bacteremia secondary to Acute Urinary Tract Infection - Renal ultrasound 10/18: "Benign-appearing bilateral small renal cysts as above. No other sonographic renal abnormality. Urinary bladder is decompressed limiting evaluation" - Blood cultures 10/18: Escherichia coli ESBL - Urine culture 10/18: Escherichia coli ESBL - Due to multiple comorbidities and ESBL infection, recommend continuation of antibiotic therapy for 14 days (10/18-11/01) - Completed 14 days of Meropenem IV (10/18-11/01) Leukocytosis resolved. Afebrile Recent history of Spinal Osteomyelitis - hospitalized at [facility] for subdural hematoma and spinal osteomyelitis - Completed 6 weeks IV antibiotic Rocephin Recommendations - Bacteremia, UTI E.coli ESBL: Completed 14 days of Meropenem IV (10/18-11/01). Continue to monitor for new or worsening s/s of infection. - Pressure offloading measures. - Strict blood glucose control - continue supportive care - fall precautions - Physical therapy Case discussed with Bill Jaquez
--- NOTE | 2023-11-02 11:38 | PN ---
Date of Progress Note: 11/02/2023 Subjective: The patient was admitted to the hospital with acute kidney injury, UTI. Acute kidney injury secondary to Entresto, metformin and nonsteroid. The patient recovered. Kidney function has been improved. Physical Examination: Vital Signs: Blood pressure 129/55, pulse of 60, afebrile. Chest: Clear to auscultation. Heart: S1, S2. Systolic murmur. Abdomen: Soft, nontender. Extremity: Trace edema. Neuro: Alert. No focality. Laboratory Data: Hemoglobin 13.1. Sodium 140, potassium 5, bicarb 30, BUN 23, creatinine 0.9, calcium 9.1. Current Medications: The patient on, include carvedilol, amiodarone, Eliquis, Entresto, spironolactone, gabapentin. Assessment And Plan: 1. Acute kidney injury secondary to the ARB, metformin, prerenal, recovered, resolved. I agree with resuming ARB. 2. Urinary tract infection secondary to ESBL. Finish treatment. 3. Hyponatremia, depletional, resolved. 4. Hyperkalemia, marginal. Continue low K diet. 5. Congestive heart failure, stable, normal volume. We will continue current treatment. Time spent examining the patient [id number] reviewing that the lab and the radiology placing orders or discussing the case with the patient discussing the case with the swat team member including hospitalist and nursing staff more than 35 minutes JEMAL Voice ID: [id number] Report ID: [id number] MTDD
--- NOTE | 2023-11-02 14:30 | P.PN ---
Date of Service: 11/02/23 Subjective No new complaints Pleasantly comfortable in bed Working well with PT ROS 10 point ROS as noted above, otherwise negative Physical exam GEN: Alert and oriented x3, NAD, Obese HEENT: Normal conjunctiva, sclera anicteric CV: Regular rate and rhythm, normal S1-S2, no murmur or gallop appreciated Pulm: Symmetrical chest wall movement, bilateral clear breath sound, on room air ABD: bowel sounds present, Soft/ benign NT/ND on palaption MSK: bruising to left foot phalanges, some swelling reduced, dressing to right foot, PICC line to Right upper arm, 2+ peripheral pulses Integumentary: No rashes, bruising to left foot as above Neuro: Normal speech, normal affect Vitals reviewed Assessment: Fall versus syncope- secondary to bacteremia/dehydration Left hip pain, left third toe dislocation S/P closed reduction E.coli ESBL bacteremia secondary to E.coli ESBL UTI Acute kidney injury secondary to dehydration/prerenal Chronic atrial fibrillation Chronic diastolic congestive heart failure with AICD in place CAD with previous CABG Diabetes mellitus type 2 GERD Hypertension Fibromyalgia Parkinson's Seizure disorder Plan: Fall versus syncope- secondary to bacteremia/dehydration CT head/C-spine negative for traumatic findings Monitor on telemetry, troponins trended flat fall precautions in place PT consult-participating with PT tolerating IV antibiotic therapy Left hip pain, left third toe dislocation S/P closed reduction CT pelvis negative for fracture Toe dislocation reduced in ED- pain controlled Continue PT -participating well Bruising and swelling are improving E.coli ESBL bacteremia secondary to E.coli ESBL UTI Only SIRS criteria with leukocytosis, not meeting sepsis criteria Completed course of IV antibiotics for 6 weeks finished ~10/16-10/17 Was recently at [facility] when she was diagnosed with osteomyelitis Noted to have 20,000 WBC, no fever, tachycardia or tachypnea 01/04 blood cultures 10/18 with E.Coli ESBL as well as urine culture repeat blood cultures drawn (10/26)- clear Does report urinary symptoms, has also had multiple ESBL UTIs Completed 2 weeks IV merrem on 11/01 Infectious disease consulted- started lactobacillus/acidophilus PICC line in place, stable and infuses well- plan for removal at DC Acute kidney injury secondary to dehydration/prerenal improved,encourage PO intake-eating well Chronic atrial fibrillation Chronic diastolic congestive heart failure with AICD in place CAD with previous CABG Home medications continued Denies chest pain or defibrillator shock/palpitations prior to event Stable Diabetes mellitus type 2 ACHS Accu-Chek, continue sliding scale insulin GERD Hypertension Fibromyalgia Parkinson's Seizure disorder Continue medications DVT PPX: Eliquis Code status: Full
[2023-11-02] MEDS: TRAMADOL HCL 50 MG TAB PO PRN (20:54)
[2023-11-02] MEDS: ATORVASTATIN 80 MG TAB PO SCH (20:54)
[2023-11-02] MEDS: MELATONIN 5 MG TABLET PO PRN (20:54)
[2023-11-02] MEDS: HOME MED [LATANOPROST 0.005% 2.5ML OPTH] OPTH SCH (21:00)
[2023-11-03] MEDS ORDERED: ROPINIROLE HCL 0.25 MG TAB PO SCH (01:00)
[2023-11-03] MEDS: TRAMADOL HCL 50 MG TAB PO PRN (04:45)
[2023-11-03] MEDS: carvediloL 3.125 MG TAB PO SCH (05:32)
[2023-11-03] MEDS: PANTOPRAZOLE 40MG TABLET PO SCH (05:32)
[2023-11-03] MEDS: INSULIN REGULAR (HUMAN) 100 UNIT/ML SQ SCH (07:30)
[2023-11-03] MEDS: DULOXETINE 30 MG CAP PO SCH (08:16)
[2023-11-03] MEDS: LACTOBACILLUS/ACIDOPHILUS TAB PO SCH (08:16)
[2023-11-03] MEDS: SACUBITRIL/VALSARTAN 24/26 MG TAB PO SCH (08:16)
[2023-11-03] MEDS: SPIRONOLACTONE 25 MG TABLET PO SCH (08:16)
[2023-11-03] MEDS: CARBIDOPA/LEVODOPA 25/100 TAB PO SCH (08:17)
[2023-11-03] MEDS: GABAPENTIN 100 MG CAP PO SCH (08:17)
[2023-11-03] MEDS: APIXABAN 5 MG TABLET PO SCH (08:17)
[2023-11-03] MEDS: DOCUSATE NA 100 MG CAP PO SCH (08:17)
[2023-11-03] MEDS: AMIODARONE HCL 200 MG TAB PO SCH (08:17)
[2023-11-03] MEDS: BETHANECHOL 10 MG TAB PO SCH (08:18)
[2023-11-03 08:23] VITALS: BP 130/60
[2023-11-03 09:02] VITALS: TEMP 97.1
--- NOTE | 2023-11-03 09:46 | P.DS ---
Admission Date: 10/18/23 Discharge Date: 11/03/23 Disposition: TRANSFER TO INPATIENT REHAB Discharge Condition: GOOD Consultations: Infectious disease Nephrology Brief History of Present Illness: 78-year-old female with history of chronic diastolic congestive heart failure, CAD with previous CABG, chronic atrial fibrillation, diabetes mellitus type 2, hypertension, GERD, Parkinson's and recent spinal osteomyelitis presented to the Emergency Department for fall versus syncope. She was recently discharged from [facility] after a 10-day stay post admission at [facility] for subdural hematoma, spinal osteomyelitis. She completed a total of 6 weeks of IV antibiotics approximately 3 days ago with recent PICC line removal. She also had a CABG four-vessel in June 2023. Today patient reports after urinating she stood up in the toilet and felt very weak falling awkwardly to the ground in a tight area. She is not sure if she lost consciousness or not, she called out for help family found her awake, alert and called 911 for assistance. Patient was complaining of left hip pain, left knee pain as well as injury to the left foot/toes. Initially left hip x-ray was concerning for an impacted fracture although follow-up CT of the pelvis was performed which was negative for osseous abnormalities. X-ray of the left foot did show dislocation of the third toe at the level of the PIP joint which is since been reduced by ED staff, also had a laceration repaired of the toe. Labs were significant for marked leukocytosis with white blood cell count of 22.1 acute kidney injury creatinine 2.46 baseline around 1.4 glucose 181 BNP 7864 urinalysis is pending. Given patient's recent history of spinal osteomyelitis and frequent urinary tract infections blood cultures, lactate have been ordered and are pending as well as cath UA. Patient does report mild burning with urination, dark urine. Hospital Course: Assessment: Fall versus syncope- secondary to bacteremia/dehydration Left hip pain, left third toe dislocation S/P closed reduction E.coli ESBL bacteremia secondary to E.coli ESBL UTI Acute kidney injury secondary to dehydration/prerenal Chronic atrial fibrillation Chronic diastolic congestive heart failure with AICD in place CAD with previous CABG Diabetes mellitus type 2 GERD Hypertension Fibromyalgia Parkinson's Seizure disorder Patient was admitted to the hospital for fall, syncope. She was noted to have leukocytosis on admission, blood and urine cultures returned ESBL E. coli. PICC line was placed and she was treated with 2 weeks of IV meropenem which she completed on 11/01/2023. She worked well with physical therapy and has been approved for inpatient rehab. She will be discharged to inpatient rehab today. Vital Signs/Physical Exam: Temp Pulse Resp BP Pulse Ox 97.1 F 60 16 130/60 96 11/03/23 08:00 11/03/23 08:16 11/03/23 08:00 11/03/23 08:16 11/03/23 08:00 General: Alert, In no apparent distress, Oriented x3 HEENT: Atraumatic, PERRLA, EOMI Neck: Supple, JVD not distended Respiratory: Clear to auscultation bilaterally, Normal air movement Cardiovascular: Regular rate/rhythm, Normal S1 S2 Gastrointestinal: Normal bowel sounds, No tenderness Musculoskeletal: No tenderness Integumentary: No rashes Neurological: Normal speech, Normal affect Laboratory Data at Discharge: WBC 8.20 thou/uL (4.3-10.9) 11/01/23 05:10 Hgb 11.3 g/dL (12.0-15.0) L 11/01/23 05:10 Hct 35.4 % (36.0-45.0) L 11/01/23 05:10 Plt Count 458 thou/uL (152-406) H 11/01/23 05:10 Sodium 140 mEq/L (136-145) 11/01/23 05:10 Potassium 5.0 mEq/L (3.5-5.1) 11/01/23 05:10 BUN 23 mg/dL (7-18) H 11/01/23 05:10 Creatinine 0.94 mg/dL (0.55-1.02) 11/01/23 05:10 Glucose 100 mg/dL (74-106) 11/01/23 05:10 Magnesium 2.2 mg/dL (1.6-2.4) 10/18/23 12:00 Total Bilirubin 0.7 mg/dL (0.2-1.0) 10/18/23 12:00 AST 10 U/L (15-37) L 10/18/23 12:00 ALT 18 U/L (13-56) 10/18/23 12:00 Alkaline Phosphatase 106 U/L (45-117) 10/18/23 12:00 Home Medications: Duloxetine [Cymbalta *] 60 mg PO BID 01/20/18 Omeprazole 40 mg PO DAILY 01/20/18 Latanoprost [Xalatan] 1 drop EACH EYE BEDTIME 09/15/19 Butalb/Acetaminophen/Caffeine [Vbvbqy-Xhutqsbn-Tqcc 50-325-40] 1 each PO BIDP PRN 09/17/19 Spironolactone 1 tab PO DAILY 06/06/23 Amiodarone HCl [Cordarone*] 200 mg PO DAILY 10/22/23 Apixaban [Eliquis *] 5 mg PO BID 10/22/23 Atorvastatin Calcium [Lipitor] 80 mg PO BEDTIME 10/22/23 Bethanechol Chloride 10 mg PO TID 10/22/23 Carbidopa/Levodopa [Carbidopa-Levo 25-100 mg Odt] 1 each PO TID 10/22/23 Dapagliflozin Propanediol [Farxiga] 10 mg PO DAILY 10/22/23 Dicyclomine [Bentyl*] 10 mg PO Q8H 10/22/23 Furosemide [Lasix*] 20 mg PO DAILY 10/22/23 Gabapentin [Neurontin*] 100 mg PO BEDTIME 10/22/23 Naloxegol Oxalate [Movantik] 25 mg PO DAILY 10/22/23 Oxycodone HCl 2.5 mg PO Q6H PRN 10/22/23 Pramipexole [Mirapex*] 0.25 mg PO BEDTIME 10/22/23 Sacubitril/Valsartan [Entresto 24 mg-26 mg Tablet] 1 tab PO BID 10/22/23 carvediloL [Coreg*] 3.125 mg PO BID 10/22/23 Melatonin 10 mg PO BEDTIME PRN PRN 11/03/23 Ropinirole HCl [Requip*] 0.5 mg PO BEDTIME tab 11/03/23 Physician Discharge Instructions: Patient was admitted to the hospital for fall, syncope. She was noted to have leukocytosis on admission, blood and urine cultures returned ESBL E. coli. PICC line was placed and she was treated with 2 weeks of IV meropenem which she completed on 11/01/2023. She worked well with physical therapy and has been approved for inpatient rehab. Of note prior to hospitalization patient was treated for vertebral osteomyelitis with a prolonged course of Rocephin which she completed prior to hospitalization. Repeat blood cultures were obtained during this hospitalization after initiation of treatment with meropenem which showed no growth in 5 days She will be discharged to inpatient rehab today. Diet: AHA Activity: Fall precautions Followup: Alfred Kingsley DO [Primary Care Provider] - Time spent managing pt's care (in minutes): 30
[2023-11-03 09:59] VITALS: O2SAT 96
--- NOTE | 2023-11-04 06:11 | PN ---
Date of Progress Note: 11/03/2023 Subjective: The patient was admitted to the hospital with acute kidney injury, UTI secondary to ESBL deconditioning. The patient was treated with meropenem, tolerated very well. The patient recovered . The patient planned to transfer to rehab today. Physical Examination: Vital Signs: Blood pressure 130/60, pulse of 60, afebrile. Chest: Clear to auscultation. Heart: S1, S2. Systolic murmur. Abdomen: Soft, nontender. Extremities: No edema. Neuro: Alert. No focality. Laboratory Data: Hemoglobin 11.3. Sodium 140, potassium 5, bicarb 30, BUN 23, creatinine 0.9, calci um 9.1. Current Medications: The patient on, include: 1.Meropenem has been discontinued. 2.Eliquis. 3.Entresto. 4.Amiodarone. 5.Atorvastatin. 6.Gabapentin. 7.Mirapex. 8.Carvedilol 3.125 b.i.d. 9.Lasix 20 mg daily. 10.Spironolactone. Assessment And Plan: 1.Acute kidney injury secondary to prerenal/toxic ATN, recovered, resolved. 2.Hypertension, controlled, optimal, continue current treatment. 3.UTI secondary to ESBL, status post treatment, resolved. 4.Deconditioning, continue PT/OT. SCARLETT/AQUILINO Voice ID: [id number] Report ID: [id number]
== END 2023-11-03 11:00 | DRG 871 ==
LOC: ER 10:58 → ERHOLD 15:30 → 4TH 15:47
PROVIDERS: ADMIT Hospitalist; ATTEND Hospitalist
PROC: 0SSQXZZ Reposition Left Toe Phalangeal Joint, External Approach (ICD-10-PCS; principal; 2023-10-18)
PROC: 0JQR3ZZ Repair Left Foot Subcutaneous Tissue and Fascia, Percutaneous Approach (ICD-10-PCS; 2023-10-18)
PROC: 02HV33Z Insertion of Infusion Device into Superior Vena Cava, Percutaneous Approach (ICD-10-PCS; 2023-10-21)
DX: A41.51 Sepsis due to Escherichia coli [E. coli] (principal); N17.0 Acute kidney failure with tubular necrosis; E87.1 Hypo-osmolality and hyponatremia; I13.0 Hypertensive heart and chronic kidney disease with heart failure and stage 1 through stage 4 chronic kidney disease, or unspecified chronic kidney disease; I48.20 Chronic atrial fibrillation, unspecified; I50.32 Chronic diastolic (congestive) heart failure; Z16.12 Extended spectrum beta lactamase (ESBL) resistance; N18.30 Chronic kidney disease, stage 3 unspecified; E11.22 Type 2 diabetes mellitus with diabetic chronic kidney disease; E11.40 Type 2 diabetes mellitus with diabetic neuropathy, unspecified; D63.1 Anemia in chronic kidney disease; M79.7 Fibromyalgia; K21.9 Gastro-esophageal reflux disease without esophagitis; E86.0 Dehydration; E87.5 Hyperkalemia; G20.A1 Parkinson's disease without dyskinesia, without mention of fluctuations; D72.829 Elevated white blood cell count, unspecified; G40.909 Epilepsy, unspecified, not intractable, without status epilepticus; I25.10 Atherosclerotic heart disease of native coronary artery without angina pectoris; M16.12 Unilateral primary osteoarthritis, left hip; S93.105A Unspecified dislocation of left toe(s), initial encounter; S91.119A Laceration without foreign body of unspecified toe without damage to nail, initial encounter; F17.210 Nicotine dependence, cigarettes, uncomplicated; Z95.1 Presence of aortocoronary bypass graft; Z60.2 Problems related to living alone; Z79.84 Long term (current) use of oral hypoglycemic drugs; Z90.49 Acquired absence of other specified parts of digestive tract; Z79.02 Long term (current) use of antithrombotics/antiplatelets; Z96.651 Presence of right artificial knee joint; Z90.710 Acquired absence of both cervix and uterus; Z79.899 Other long term (current) drug therapy; Z95.810 Presence of automatic (implantable) cardiac defibrillator
CPT/HCPCS: 36415; 36569; 51702; 70450; 71045; 72070; 72125; 72192; 76770; 80048; 80076; 81001; 82550; 82947; 83605; 83735; 83880; 84439; 84443; 84484; 85025; 86140; 87040; 87077; 87086; 87088; 87186; 87205; 93005; 93306; 97110; 97116; 97161; 97165; 97530; 99285; J1644; J2001; J2185; J7030; J7040

== ENCOUNTER 2023-10-24 10:15 | Inpatient (IN) | payer OTHER ==
[2023-11-03 13:45] VITALS: BMI 42.4
[2023-11-03] MEDS ORDERED: GLUCAGON 1 MG/VIAL IM PRN (14:15)
[2023-11-03] MEDS ORDERED: D50W 25 GM/50 ML SYRINGE IV PRN (14:15)
[2023-11-03] MEDS ORDERED: DOCUSATE NA/SENNA CONC 1 TAB PO PRN (14:18)
[2023-11-03] MEDS ORDERED: MELATONIN 3 MG TABLET PO PRN (14:18)
[2023-11-03] MEDS: INSULIN REGULAR (HUMAN) 100 UNIT/ML SQ SCH (16:27)
[2023-11-03] MEDS: carvediloL 3.125 MG TAB PO SCH (17:23)
[2023-11-03] MEDS: DULOXETINE 30 MG CAP PO SCH (19:24)
[2023-11-03] MEDS: GABAPENTIN 100 MG CAP PO SCH (19:24)
[2023-11-03] MEDS: DOCUSATE NA 100 MG CAP PO SCH (19:24)
[2023-11-03] MEDS: SACUBITRIL/VALSARTAN 24/26 MG TAB PO SCH (19:24)
[2023-11-03] MEDS: APIXABAN 5 MG TABLET PO SCH (19:24)
[2023-11-03] MEDS: LACTOBACILLUS/ACIDOPHILUS TAB PO SCH (19:28)
[2023-11-03] MEDS: ATORVASTATIN 80 MG TAB PO SCH (19:28)
[2023-11-03] MEDS: CARBIDOPA/LEVODOPA 25/100 TAB PO SCH (19:28)
[2023-11-03] MEDS: ROPINIROLE HCL 0.25 MG TAB PO SCH (19:29)
[2023-11-03] MEDS: BETHANECHOL 10 MG TAB PO SCH (20:18)
[2023-11-03] MEDS: MELATONIN 5 MG TABLET PO PRN (20:23)
[2023-11-03 22:57] LABS: Specific Gravity 1.007 (1.005-1.030); Urine Bacteria None Seen /HPF (<20); Urine Bilirubin NEGATIVE (Negative); Urine Blood Negative (Negative); Urine Clarity Clear (Clear); Urine Color Colorless (Yellow); Urine Glucose NEGATIVE (Negative); Urine Protein NEGATIVE (Negative); Urine RBC <5 /HPF (None Seen); Urine Urobilinogen Normal (Normal); Urine pH 6.5 (5.0-7.0)
--- NOTE | 2023-11-04 01:57 | HP ---
Date of Admission: 11/03/2023 Time Of Service: 1 p.m. Chief Complaint: "I fell at home and I have a bladder infection." History Of Present Illness: Ms. Edson Garcia is a 78-year-old patient who was seen at an outside ospital after suffering a fall at home while she was standing up on the toilet. She did hit the hip and had pain in the area, but imaging was negative for any osseous abnormalities. However, in her fo ot, which she impacted the left foot, she had significant pain there and imaging identified a disloca tion of the third toe at the proximal interphalangeal joint. That was reduced in the emergency room. A laceration was repaired with sutures in the toe. She was found to have elevated white count of 2 2,000, elevated creatinine 2.46 and glucose elevated at with BNP elevated to 7864. It is noted that prior to the recent hospitalization, she did have a fall with a subdural hematoma and was identified with spinal osteomyelitis. She did receive IV antibiotics and inpatient treatment for lauri t for 6 weeks and inpatient rehabilitation for 10 days. Prior to that she also had 4-vessel coronary artery bypass grafting in June 2023. Given the elevated white blood cell count and finding of elevated lactate, she was placed on broad-spectrum antibiotics under the care of Infectious Disease. She had a fluid management and Nephrology consulted because of renal insufficiency. Blood sugars al so require acute management. She had Cardiology manage her diastolic congestive heart failure, atria l fibrillation, coronary artery disease. Gastroesophageal reflux disease and hypertension also along with Parkinson's, fibromyalgia, and seizure disorder were managed acutely. In her most recent hospi talization, she was diagnosed with gram-negative bacteremia secondary to urinary tract infection with fevers, white blood cell count elevation and was then placed on meropenem IV for 2 weeks, started on 10/18/2023. Again, she had prerenal dehydration addressed with IV fluids and she had , me tformin, and spironolactone adjusted. Her course has been further complicated by significant pain an d persistent weakness and pain mostly in the left feet foot where she has the dislocation and has had recent sutures there, which have been removed. Also, she has hyponatremia. She was evaluated by Ph ysical and Occupational Therapy and found to be functioning well below her normal baseline and was th erefore recommended that she have aggressive inpatient rehabilitation for her medical comorbid condit ions and to address her significant decline in functioning. She also requires 24 hours skilled nursi ng along with Social Work evaluation and management for discharge planning. 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 She has a pacemaker placed. Coronary artery bypas s grafting in 2022. She has also hysterectomy, diverticulitis, cholecystectomy, hernia repair, and l eft jaw precancerous cyst removed with rebuilding surgery. Allergies: SHELLFISH, PORK, PORCINE CONTAINING PRODUCTS. Family History: Noncontributory. Medications: Cordarone 200 mg daily, Eliquis 5 mg twice daily, Lipitor 80 mg at bedtime, urecholine 10 mg 3 times daily, Sinemet 25/100 three times daily, Coreg 3.125 mg twice daily, Colace 100 mg twic e daily, duloxetine 60 mg twice daily, gabapentin 100 mg twice daily. She has an insulin sliding sca le, Lactinex 1 tablet twice daily, melatonin 10 mg at bedtime, Protonix 40 mg daily, Requip 0.5 mg at bedtime, Senokot-S 2 at bedtime, Aldactone 25 mg daily, and Ultram 50 mg every 6 hours as needed. Laboratory Studies: Her white blood cell count 8.2, hemoglobin 11.3, hematocrit 35.4, platelets 458. Sodium 140, potassium 5.0, glucose 100, BUN 23, creatinine 0.94, calcium 9.1. More recent glucose just done was 118. Review of Systems: She does report significant pain in the left toe. There is some swelling in the left foot and the ri ght big toe also has some pain to palpation. She will have a uric acid level checked for gout. Also may have a compression stocking placed. Otherwise, no current fevers or chills. Mild myalgias, art hralgias. No rash. No headache. No psychiatric complaints. No active gastrointestinal issues. Ann gallegos does have the UTI, which she is recovering from. Otherwise, a 10-point systems review is unremarka ble. Physical Examination: Vital Signs: Weight 203 pounds, height 4 feet 10 inches, BMI 42.4 placing her in class 3 obesity ran ge. Blood pressure 172/68, pulse 70, respiratory rate 18, temperature 97.1, oxygen saturation 99%. General: Ms. Sandhu is in bed, getting ready to start therapy. HEENT: She appears normocephalic, atraumatic. Sclerae anicteric. Oropharynx pink and moist. Neck: Supple. Chest: Clear. Heart: Regular. Extremities: Show mild edema bilaterally with swelling in the big toes bilaterally. Some redness of the big toes bilaterally. Neurologic: Diffuse weakness in the upper and lower extremities. No focal deficits noted. Current Level Of Functioning: Eating, independent. Oral hygiene, independent. Toileting, supervisi on. Bathing, moderate assistance. Upper body dressing, independent. Lower body dressing, moderate assistance. Donning and doffing her footwear, moderate assistance. Rolling right to left, left to r ight, sitting to stand and lying to sitting, sliding in the bed along with again sit to stand moderat e assistance. Transfers from bed to chair to toilet to commode, all moderate assistance. Ambulation , she ambulated with moderate assistance 15 feet with a rolling walker. Rehabilitation And Medical Assessment And Plan: Ms. Edson Garcia admitted to the rehabilitation un it with impairment category 20, miscellaneous. Her impairment group code is 16, debility, noncardiac , nonpulmonary. Her etiologic diagnosis is gram-negative bacteremia secondary to urinary tract infec tion. Her comorbid conditions: Atrial fibrillation, acute renal insufficiency, coronary artery bypa ss grafting, diastolic congestive heart failure, coronary artery disease, decrease in mobility, decre ased physical functioning, diabetes mellitus type 2, hypertension, leukocytosis, Parkinson disease, s eizure disorder, recurrent falls, fibromyalgia. She has a history of drug-resistant ESBL E coli. Plan: 1.She will have physical, occupational, and maybe speech therapy for 3-1/2 hours 5 of 7 days. 2.In terms of her medications, she will continue with the Eliquis 5 mg twice daily, amiodarone 200 m g daily, Lipitor 80 mg at bedtime, bethanechol 10 mg 3 times daily, Sinemet 25/100 three times daily, Coreg 3.125 mg twice daily, Colace 100 mg twice daily, duloxetine 60 mg twice daily, gabapentin 100 mg twice daily, Lactinex 1 tablet twice daily, melatonin 10 at bedtime, Protonix 40 mg daily, Requip 0.5 mg twice daily, Senokot-S 2 at bedtime, spironolactone 25 mg daily, and Ultram 50 mg every 6 hour s as needed. Comorbidities That Are Impacting Her Rehabilitation: Her foot pain is a big issue as that is where s he has a dislocation actually of the interphalangeal joint of the third toe and she has laceration th at has been sutured and with sutures removed. There is also swelling in the great toes. She again i s having the blood work for uric acid level and may start colchicine as appropriate. She also will h ave Podiatry, Dr. Henderson, to evaluate her to determine if there is a potential for infection and osteo myelitis, which is a potential issue. She also has class 3 obesity and would be a high risk of falli ng and injury and is going to require nutritional program to assist her to achieve a better body mass index. Rehab Specific Plan: Ms. Edson Garcia will have physical, occupational, and speech therapy for 3-1 /2 hours if need be for 5 of 7 days. She will work on her transfers from bed to toilet to chair to s hower to achieve modified independence. Also will work on using a rolling walker to ambulate 250 fee t with modified independence, propel a wheelchair 250 feet with modified independence and go up and d own 10 steps with modified independence. Also perform cognitive functioning independently along with assessing risks of transferring and ambulating to minimize risk of falling, manage her medications a nd all of her medical followups as needed. Ms. Edson Garcia has good understanding of the process of admission to the inpatient rehabilitation facility and understands that she will be benefitting from physical, occupational, and speech therap y if needed. In addition, services from the infectious disease service, orthopedic service, podiatry service, pulmonary service, and cardiology service may be consulted. Given her current complex list of medical conditions and risk of further complications, rehabilitation cannot be safely or affectiv brock performed at a lower level of facility such as nursing home. Barriers To Discharge: Some pain in the feet and the morbid obesity may make it difficult for her to be discharged straight home and she may have to go to nursing home. In addition, she may require more IV antibiotics, but currently, she is doing well. We will have white blood cell count followed , temperature also followed, and if need be, prolactin and lactic acid to rule out any sepsis. Again , urinalysis will be repeated. Length Of Stay: About 12 days. Disposition: Home with family and home health. Prognosis: At this point is good. Rehabilitation Goals: 1.Become independent with upper and lower body dressing, toileting, showering, donning and doffing o f shoes. 2.Independently ambulate 250 feet with a rolling walker. 3.Independently propel a wheelchair 250 feet. 4.Independently go up and down 10 steps with bilateral handrails. 5.Independently perform all cognitive functioning. 6.Manage all medications independently and all physician followups and all safety awareness issues. The above goals were reviewed with Ms. Edson Garcia and she is in agreement. By signing this document, I acknowledge I have performed a full physical examination on Ms. Edson Garcia no later than 24 hours after her admission to the inpatient rehabilitation facility and kasi owens that she is able to tolerate the above course of treatment at an intensive level for a reasonable period of time. A detailed individualized plan of care for her will be completed by hospital day 4 based on the preadmission screen, history and physical and therapy evaluations. ANGIE Voice ID: [id number]
[2023-11-04] MEDS: PANTOPRAZOLE 40MG TABLET PO SCH (06:01)
[2023-11-04] MEDS ORDERED: INSULIN REGULAR (HUMAN) 100 UNIT/ML SQ SCH (07:30)
[2023-11-04] MEDS: INSULIN REGULAR (HUMAN) 100 UNIT/ML SQ SCH (07:30)
[2023-11-04 07:45] LABS: Hematocrit 30.9 % (36.0-45.0); Lymphocytes % 14.1 % (15.3-44.8); MCV 83.2 fL (80-100); MPV 7.1 fL (7.6-11.3); Platelets 406 thou/uL (152-406); RBC Red Blood Cell Count 3.71 M/uL (3.86-4.86)
[2023-11-04] MEDS: SPIRONOLACTONE 25 MG TABLET PO SCH (07:53)
[2023-11-04] MEDS: AMIODARONE HCL 200 MG TAB PO SCH (07:53)
[2023-11-04] MEDS: TRAMADOL HCL 50 MG TAB PO PRN (07:58)
[2023-11-04 08:01] LABS: Albumin 2.4 g/dL (3.4-5.0); Magnesium 2.1 mg/dL (1.6-2.4); Potassium 4.8 mEq/L (3.5-5.1); Prealbumin 17.9 mg/dL (20-40)
[2023-11-04] MEDS: JUVEN PACKET PO SCH (20:08)
--- NOTE | 2023-11-05 10:27 | P.PN ---
Date of Service: 11/05/23 Subjective: Physical Examination: Vital Signs: reviewed General: Ms. Sandhu is in bed, getting ready to start therapy. HEENT: She appears normocephalic, atraumatic. Sclerae anicteric. Oropharynx pink and moist. Neck: Supple. Chest: Clear. Heart: Regular. Extremities: Show mild edema bilaterally with swelling in the big toes bilaterally. Some redness of the big toes bilaterally. Neurologic: Diffuse weakness in the upper and lower extremities. No focal deficits noted. Current Level Of Functioning: Eating, independent. Oral hygiene, independent. Toileting, supervision. Bathing, moderate assistance. Upper body dressing, independent. Lower body dressing, moderate assistance. Donning and doffing her footwear, moderate assistance. Rolling right to left, left to right, sitting to stand and lying to sitting, sliding in the bed along with again sit to stand moderate assistance. Transfers from bed to chair to toilet to commode, all moderate assistance. Ambulation, she ambulated with moderate assistance 15 feet with a rolling walker. Rehabilitation And Medical Assessment And Plan: Ms. Edson Garcia admitted to the rehabilitation unit with impairment category 20, miscellaneous. Her impairment group code is 16, debility, noncardiac, nonpulmonary. Her etiologic diagnosis is gram-negative bacteremia secondary to urinary tract infection. Her comorbid conditions: Atrial fibrillation, acute renal insufficiency, coronary artery bypass grafting, diastolic congestive heart failure, coronary artery disease, decrease in mobility, decreased physical functioning, diabetes mellitus type 2, hypertension, leukocytosis, Parkinson disease, seizure disorder, recurrent falls, fibromyalgia. She has a history of drug-resistant ESBL E coli. Plan: 1. She will have physical, occupational, and maybe speech therapy for 3-1/2 hours 5 of 7 days. 2. In terms of her medications, she will continue with the Eliquis 5 mg twice daily, amiodarone 200 mg daily, Lipitor 80 mg at bedtime, bethanechol 10 mg 3 times daily, Sinemet 25/100 three times daily, Coreg 3.125 mg twice daily, Colace 100 mg twice daily, duloxetine 60 mg twice daily, gabapentin 100 mg twice daily, Lactinex 1 tablet twice daily, melatonin 10 at bedtime, Protonix 40 mg daily, Requip 0.5 mg twice daily, Senokot-S 2 at bedtime, spironolactone 25 mg daily, and Ultram 50 mg every 6 hours as needed. Comorbidities That Are Impacting Her Rehabilitation: Her foot pain is a big issue as that is where she has a dislocation actually of the interphalangeal joint of the third toe and she has laceration that has been sutured and with sutures removed. There is also swelling in the great toes. She again is having the blood work for uric acid level and may start colchicine as appropriate. She also will have Podiatry, Dr. Henderson, to evaluate her to determine if there is a potential for infection and osteomyelitis, which is a potential issue. She also has class 3 obesity and would be a high risk of falling and injury and is going to require nutritional program to assist her to achieve a better body mass index. Rehab Specific Plan: Ms. Edson Garcia will have physical, occupational, and speech therapy for 3- 1/2 hours if need be for 5 of 7 days. She will work on her transfers from bed to toilet to chair to shower to achieve modified independence. Also will work on using a rolling walker to ambulate 250 feet with modified independence, propel a wheelchair 250 feet with modified independence and go up and down 10 steps with modified independence. Also perform cognitive functioning independently along with assessing risks of transferring and ambulating to minimize risk of falling, manage her medications and all of her medical followups as needed. Barriers To Discharge: Some pain in the feet and the morbid obesity may make it difficult for her to be discharged straight home and she may have to go to care home. In addition, she may require more IV antibiotics, but currently, she is doing well. We will have white blood cell count followed, temperature also followed, and if need be, prolactin and lactic acid to rule out any sepsis. Again, urinalysis will be repeated. Length Of Stay: About 12 days. Disposition: Home with family and home health. Prognosis: At this point is good. Rehabilitation Goals: 1. Become independent with upper and lower body dressing, toileting, showering, donning and doffing of shoes. 2. Independently ambulate 250 feet with a rolling walker. 3. Independently propel a wheelchair 250 feet. 4. Independently go up and down 10 steps with bilateral handrails. 5. Independently perform all cognitive functioning. 6. Manage all medications independently and all physician followups and all safety awareness issues.
--- NOTE | 2023-11-06 13:33 | CON ---
Date of Consultation: 11/06/2023 Reason For Consultation: Elevated BUN and creatinine, hypertension. History Of Present Illness: This is a pleasant 78-year-old female, well known to me from the office with significant past medical history of chronic kidney disease, follows up with Dr. Lynn, baseline creatinine 1.4, GFR of 36, hypertension, CAD complicated with congestive heart failure, diastolic dysfunction with preserved ejection fraction, atrial fibrillation, fibromyalgia, hyperlipidemia. The patient presented to the hospital with questionable acute kidney injury and UTI, ESBL. The patient was treated, recovered. The patient discharged to rehab. We are consulted to follow up. Past Medical History: Includes: 1. Fibromyalgia. 2. CAD with congestive heart failure, preserved ejection fraction, diastolic dysfunction. 3. Hyperlipidemia. 4. Parkinson. 5. Diabetes, complicated with neuropathy and nephropathy. 6. Chronic kidney disease stage IIIB, baseline creatinine 1.4, GFR of 36. Follow up with Dr. Lynn. Past Surgical History: Include ICD placement, hysterectomy, hernia repair, cholecystectomy. Family History: Positive for CAD. Social History: Active alcohol. Denied drug abuse. Ex-smoker. Review of Systems: Head and Neck: No red eye. No ear pain. GI: No nausea, no vomiting. : No polyuria, no dysuria, no hematuria. Toll Service Observer: No vaginal discharge. Respiratory: No shortness of breath. Cardiovascular: No chest pain. Endocrine: No polydipsia. Skin: No rash. Physical Examination: Vital Signs: When I saw the patient, blood pressure 147/67, pulse of 59, afebrile. Chest: Faint rales on the left base. Heart: S1, S2, regular, systolic murmur. Abdomen: Soft, nontender. Extremities: Plus edema. Neurologic: Alert. No focality. Lab: Hemoglobin 10. Sodium 140, potassium 4.8, bicarb 29, BUN 28, creatinine 1.1, GFR of 50. Calcium 8.6, magnesium 2.1, albumin 2.4. Current Medications: The patient on include: 1. Amiodarone. 2. Atorvastatin. 3. Carvedilol 4. Entresto. 5. Spironolactone 25. 6. Gabapentin. 7. Sinemet. 8. Docusate. Assessment And Plan: 1. Chronic kidney disease stage IIIB secondary to hypertension, nephrosclerosis, cardiorenal syndrome, slightly on the wet side. I am going to resume the patient on Lasix 20 mg daily, continue spironolactone, and we will follow up. 2. Hypertension, controlled, optimal, continue current treatment. 3. Hyponatremia secondary to depletional, resolved. 4. Congestive heart failure. Resume Lasix. 5. UTI secondary to ESBL, status post treatment, resolved. 6. Deconditioning, continue PT/OT. SCARLETT/AQUILINO Voice ID: [id number] Report ID: [id number] MTDD
[2023-11-06] MEDS: FUROSEMIDE 20 MG TABLET PO SCH (13:51)
--- NOTE | 2023-11-07 09:30 | P.CNS ---
Date of Consult: 11/07/23 Reason for Consult: painful toenails Allergies shellfish derived Allergy (Unknown, Verified 11/03/23 17:44) unknown Pork/Porcine Containing Products Allergy (Verified 11/03/23 17:44) unknown Home Medications: Duloxetine [Cymbalta *] 60 mg PO BID 01/20/18 Omeprazole 40 mg PO DAILY 01/20/18 Spironolactone 1 tab PO DAILY 06/06/23 Amiodarone HCl [Cordarone*] 200 mg PO DAILY 10/22/23 Apixaban [Eliquis *] 5 mg PO BID 10/22/23 Atorvastatin Calcium [Lipitor] 80 mg PO BEDTIME 10/22/23 Bethanechol Chloride 10 mg PO TID 10/22/23 Carbidopa/Levodopa [Carbidopa-Levo 25-100 mg Odt] 1 each PO TID 10/22/23 Gabapentin [Neurontin*] 100 mg PO BID 10/22/23 Sacubitril/Valsartan [Entresto 24 mg-26 mg Tablet] 1 tab PO BID 10/22/23 carvediloL [Coreg*] 3.125 mg PO BID 10/22/23 Melatonin 10 mg PO BEDTIME PRN PRN 11/03/23 Ropinirole HCl [Requip*] 0.5 mg PO BEDTIME tab 11/03/23 Docusate [Colace Cap*] 100 mg PO BID 11/04/23 Lactobacillus Acidophilus [Acidophilus Lactobacilli] 1 cap PO BID 11/04/23 traMADol HCL [Ultram*] 50 mg PO Q6H PRN 11/04/23 - Past Medical/Surgical History Diabetic: Yes -: fibromyalgia -: Chronic diastolic congestive heart failure -: HTN -: brain tumor- 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 rebuilt surg -: fibroid sx -: hysterectomy -: Pacemaker, CABG 2022 Psychosocial/ Personal History: Lives at home alone, family frequently check on her, has home health - Family History Sister Medical History: Heart disease, Hypertension Notes: additional sister with arthritis Father Medical History: Cancer Notes: lung Mother Medical History: Cancer Notes: colon - Social History Smoking Status: Current every day smoker Alcohol use: No CD- Drugs: No Caffeine use: No Place of Residence: Home Review of Systems 10-point ROS is otherwise unremarkable Physical Examination Temp Pulse Resp BP Pulse Ox 96.0 F L 59 17 160/74 H 97 11/07/23 07:45 11/07/23 08:10 11/07/23 09:18 11/07/23 08:10 11/07/23 09:18 General: Alert, In no apparent distress, Oriented x3 Cardiovascular: Edema (+1 pitting edema bilateral lower extremity), Abnormal pulses (0/4 dp and pt pulses bilateral lower extremity) Capillary refill: <2 Seconds Musculoskeletal: No clubbing, No swelling, No contractures, No erythema, No tenderness, No warmth Integumentary: No rashes, No breakdown, No significant lesion, No tenderness/swelling, No erythema, No warmth, No cyanosis, Other (Thickened hypertrophic bilateral hallux nail with subungual debris. 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
--- NOTE | 2023-11-07 23:12 | PN ---
Date of Progress Note: 11/07/2023 Time Of Service: 1:10 p.m. Subjective: Ms. Edson Garcia is resting comfortably in bed. She has no new complaints. She is wo rking hard with therapy so far and has pain managed well. She has issues with urination. She has La six on board for her constipation. She has stool softeners and medications are doing well. Review of Systems: No fevers or chills. Mild myalgias, arthralgias. No rash. No headache. No psychiatric complaints. Physical Examination: Vital Signs: Blood pressure 140/60, pulse 68, respiratory rate of 16, temperature 97.1, oxygen satur ation 97%. General: Ms. Edson Garcia is resting in bed in between therapy sessions. She is in no significant distress. HEENT: She appears normocephalic, atraumatic. Sclerae anicteric. Oropharynx pink, moist. Neck: Supple. Chest: Clear. Extremities: Known slight edema noted in the extremities. Laboratory Studies: White blood cell count 7.2, hemoglobin 10.0, platelets 406, glucose ranged from 111 to 187. Sodium 140, potassium 4.8, chloride 111, carbon dioxide 29, BUN 28, creatinine 1.13, glu cose ranged from 95 to 160. Hemoglobin A1c 5.9, prealbumin 7.9, albumin 2.4, magnesium 2.1, calcium 8.6. Urinalysis on the first completely normal. X-ray/imaging: No new x-rays or imaging. Consultations: She was seen by the Renal Service, Dr. Go, and by the Podiatry Service, Dr. Johan Henderson. She is also followed over the weekend by Dr. Shipman. Medications: Eliquis 5 mg twice daily, amiodarone 200 mg daily, Lipitor 80 mg at bedtime, bethanecho l 10 mg 3 times daily, carbidopa/levodopa 1 tablet 3 times daily, Coreg 3.125 mg twice a day, Colace 100 mg twice daily, duloxetine 60 mg twice daily, Lasix 20 mg daily, gabapentin 100 mg twice daily, l actobacillus twice daily, melatonin 10 mg at bedtime, Protonix 40 mg daily, Requip 0.5 mg at bedtime, senna-S 2 at bedtime, spironolactone 25 mg daily, tramadol 50 mg every 6 hours as needed. Progress Made With Physical And Occupational Therapy: Today with physical therapy, she ambulated 125 feet twice and 250 feet 3 times and 125 feet once independently. She did require some verbal cues. She was able to ascend and descend 15 steps with bilateral handrails twice independently. Sit-to-st and done independently. Multiple transfers also done independently. With her occupational therapy, independent with bed mobility, toilet transfers and toileting, upper body dressing, lower body dressi ng, all independent. She did have medication on fall precautions. Ms. Sandhu is making excellent progress with her physical and occupational therapy and is towards i ndependence at this point. Assessment: Ms. Sandhu is a 78-year-old patient, admitted to the rehabilitation unit with debility , noncardiac, nonpulmonary. She has gram-negative bacteremia secondary to urinary tract infection th at has been treated and addressed. She has atrial fibrillation with renal insufficiency, coronary ar marlen bypass grafting, congestive heart failure, diabetes mellitus, hypertension, leukocytosis, [place] son's disease, seizure disorder, fibromyalgia. Plan: 1.She will continue with physical and occupational therapy for 3 hours a day, 5 of 7 days. 2.Her comorbid conditions which are listed above were addressed by continuing her medications. Comorbidities That Are Impacting Her Rehabilitation: Currently, there is an interphalangeal joint di splacement of the third toe on the left that is healing well. It is not stopping her. She is doing excellent from that standpoint. Upper extremities are doing well. She does have some mild pain in t he shoulders and she is doing well. She was seen by Dr. Gene Henderson who was managing the foot and her renal physicians are following her. NATI/AQUILINO Voice ID: [id number] Report ID: [id number]
--- NOTE | 2023-11-08 03:42 | PN ---
Date of Progress Note: 11/07/2023 Chief Complaint: Elevated BUN and creatinine, hypertension. Subjective: The patient has history of chronic kidney disease stage , baseline creatinine level 1.4; hypertension; coronary artery disease, complicated with congestive heart failure; diastoli c dysfunction with preserved ejection fraction; atrial fibrillation; fibromyalgia; hyperlipidemia. T he patient presented to the hospital with acute kidney injury and urinary tract infection with ESBL. She is feeling better, and she recovered from the acute kidney injury. Review of Systems: Denies chest pain, palpitations. Physical Examination: Lungs: Clear to auscultation bilaterally. Heart: S1, S2. Abdomen: Soft. Extremities: No edema. Impression And Plan: 1.Chronic kidney disease stage secondary to hypertension, nephrosclerosis, cardiorenal sy ndrome. Continue to monitor fluid balance. The patient is on Lasix 20 mg daily. Continue to monito r electrolytes. 2.Hypertension, controlled, optimal. 3.Hyponatremia secondary to the depletion. Continue high protein intake. 4.Congestive heart failure. Resume Lasix. 5.Urinary tract infection secondary to extended-spectrum beta- lactamase. Status post treatment, urinary tract infection resolved UA and urine culture. BAMBI/AQUILINO Voice ID: [id number] Report ID: [id number]
[2023-11-09 06:53] VITALS: TEMP 97
[2023-11-09 11:47] VITALS: BP 158/68
--- NOTE | 2023-11-09 12:15 | PN ---
Date of Progress Note: 11/08/2023 Subjective: The patient was admitted to the hospital with UTI, deconditioning, acute kidney injury secondary to cardiorenal. The patient diuresed, recovered very well. The patient transferred to rehab. Physical Examination: Vital Signs: Blood pressure 118/59, pulse of 60, afebrile. Chest: Clear to auscultation. Heart: S1, S2 regular. Abdomen: Soft, nontender. Extremities: Trace edema. Neurologic: Alert. No focality. Laboratory Data: Hemoglobin 10. Sodium 140, potassium 4.8, bicarb 29, BUN 28, creatinine 1.1, GFR of 50. Assessment And Plan: 1. Acute kidney injury secondary to cardiorenal, normal volume. Continue current diuresis dose. 2. Hypertension, controlled, optimal. Continue current treatment. 3. Hyponatremia, dilutional, status post treatment, recovered, resolved. 4. Congestive heart failure, normal. Continue Lasix. 5. UTI secondary to ESBL, status post treatment, resolved. 6. Deconditioning. Okay for discharge planning. Current Medications: Include amiodarone, atorvastatin, carvedilol, Entresto, spironolactone, Requip, gabapentin, and Lasix 20 daily. Time spent examining the patient [id number] reviewing that the lab and the radiology placing orders or discussing the case with the patient discussing the case with the steam shovel engineer including hospitalist and nursing staff more than 35 minutes JEMAL Voice ID: [id number] Report ID: [id number] TUNDE
--- NOTE | 2023-11-09 13:24 | PN ---
DICTATION ENDS HERE. JEMAL Voice ID: [id number] Report ID: [id number]
== END 2023-11-09 14:00 | disposition home health service (06) | DRG 948 ==
LOC: 5TH 11-03 11:10
PROVIDERS: ADMIT Psychiatry & Neurology Neurology with Special Qualifications in Child Neurology; ATTEND Psychiatry & Neurology Neurology with Special Qualifications in Child Neurology
PROC: 0HBRXZZ Excision of Toe Nail, External Approach (ICD-10-PCS; principal; 2023-11-07)
PROC: 0HBRXZZ Excision of Toe Nail, External Approach (ICD-10-PCS; 2023-11-07)
PROC: 0HBRXZZ Excision of Toe Nail, External Approach (ICD-10-PCS; 2023-11-07)
PROC: 0HBRXZZ Excision of Toe Nail, External Approach (ICD-10-PCS; 2023-11-07)
PROC: 0HBRXZZ Excision of Toe Nail, External Approach (ICD-10-PCS; 2023-11-07)
PROC: 0HBRXZZ Excision of Toe Nail, External Approach (ICD-10-PCS; 2023-11-07)
PROC: 0HBRXZZ Excision of Toe Nail, External Approach (ICD-10-PCS; 2023-11-07)
PROC: 0HBRXZZ Excision of Toe Nail, External Approach (ICD-10-PCS; 2023-11-07)
DX: R53.81 Other malaise (principal); I50.30 Unspecified diastolic (congestive) heart failure; N39.0 Urinary tract infection, site not specified; I13.0 Hypertensive heart and chronic kidney disease with heart failure and stage 1 through stage 4 chronic kidney disease, or unspecified chronic kidney disease; E87.1 Hypo-osmolality and hyponatremia; N17.9 Acute kidney failure, unspecified; Z68.41 Body mass index [BMI] 40.0-44.9, adult; B35.1 Tinea unguium; L60.2 Onychogryphosis; I48.91 Unspecified atrial fibrillation; I11.0 Hypertensive heart disease with heart failure; M79.7 Fibromyalgia; G40.909 Epilepsy, unspecified, not intractable, without status epilepticus; E66.01 Morbid (severe) obesity due to excess calories; K21.9 Gastro-esophageal reflux disease without esophagitis; I25.10 Atherosclerotic heart disease of native coronary artery without angina pectoris; E78.5 Hyperlipidemia, unspecified; E11.22 Type 2 diabetes mellitus with diabetic chronic kidney disease; N18.32 Chronic kidney disease, stage 3b; G20.A1 Parkinson's disease without dyskinesia, without mention of fluctuations; F17.200 Nicotine dependence, unspecified, uncomplicated; Z95.0 Presence of cardiac pacemaker; Z95.1 Presence of aortocoronary bypass graft; Z79.01 Long term (current) use of anticoagulants
CPT/HCPCS: 36415; 80048; 81001; 82040; 82947; 83036; 83735; 84134; 85025; 87086; 87088; 97110; 97112; 97116; 97163; 97165; 97530

== ENCOUNTER 2024-04-07 15:11 | Observation (INO) | payer MEDICAID ==
[2024-04-07 16:06] LABS: Absolute Lymphocytes (CBC) 0.3 K/uL (0.7-4.9); Absolute Monocytes 0.7 K/uL (0.1-1.3); Absolute Neutrophil 13.6 K/uL (1.8-8.0); Basophils % 0.2 % (0-1.3); Hematocrit 39.9 % (36.0-45.0); Hemoglobin 12.6 g/dL (12.0-15.0); Lymphocytes % 2.3 % (15.3-44.8); MCH 28.1 pg (27.0-35.0); MCHC 31.6 g/dL (32.0-36.0); MCV 88.9 fL (80-100); MPV 7.5 fL (7.6-11.3); Monocytes % 4.9 % (3.3-12.3); Neutrophils % 92.6 % (41.7-73.7); Platelets 287 thou/uL (152-406); RBC Red Blood Cell Count 4.49 M/uL (3.86-4.86); Red Cell Distribution Width 17.3 % (12.1-15.2)
--- NOTE | 2024-04-07 16:26 | RAD REPORT ---
EXAM DESCRIPTION: RAD - Chest Single View - 04/07/2024 4:06 pm CLINICAL HISTORY: SWELLING Chest pain. COMPARISON: <Comparisons> FINDINGS: Portable technique limits examination quality. Mild interstitial pulmonary edema. The heart is moderately enlarged. Multi lead pacer/ defibrillator device. Sternotomy wires. IMPRESSION: Mild CHF.
[2024-04-07 16:30] LABS: Anion Gap 6.9 mEq/L (5.0-15.0); Potassium 3.9 mEq/L (3.5-5.1); Troponin High Sensitivity 26.9 pg/mL (<58.9)
[2024-04-07 16:54] LABS: Blood Morphology Comment NOTED (NOT SEEN); Platelet Estimate ADEQ; Stomatocytes 2+; White Blood Cell Scan OK (OK)
--- NOTE | 2024-04-07 17:11 | EDPHYS ---
Physician Documentation [facility] Name: Jelly Garcia Age: 78 yrs Sex: Female : 1945 Arrival Date: 04/07/2024 Time: 15:11 Bed 17 Private MD: ED Physician Gil Campos HPI: 04/07 17:09 This 78 yrs old Female presents to ER via EMS with complaints of Leg Swelling. kb 17:09 Pt is a 78 year old female who presents for bilateral leg swelling that started 4-5 kb days ago with intermittent chest pain and shortness of breath. . Historical: - Allergies: 15:30 No Known Allergies; rs5 - PMHx: 15:24 Diabetes - NIDDM; Fibromyalgia; Temporal Arteritis; Hypertension; Atrial Fib; rs5 - PSHx: 15:30 right knee surgery; rs5 - Immunization history:: Adult Immunizations up to date. - Infectious Disease History:: Denies. - Social history:: Smoking status: Patient denies any tobacco usage or history of. ROS: 17:07 Constitutional: As per HPI kb Exam: 16:30 Constitutional: This is a well developed, well nourished patient who is awake, alert, kb and in no acute distress. Head/Face: Normocephalic, atraumatic. ENT: Moist Mucous membranes Cardiovascular: Regular rate Respiratory: Respirations even and unlabored. No increased work of breathing. Talking in full sentences Abdomen/GI: Soft, non-tender. No distention Skin: Warm, dry with normal turgor. Normal color. Neuro: Awake and alert, GCS 15, oriented to person, place, time, and situation. Moves all extremities. Normal gait. 16:30 ECG was reviewed by the Attending Physician. 16:30 Musculoskeletal/extremity: 2+ edema to bilateral lower extremities. Vital Signs: 15:24 BP 131 / 53; Pulse 71; Resp 17; Temp 97.9(O); Pulse Ox 99% on R/A; rs5 16:20 BP 132 / 54; Pulse 77; Resp 17; Pulse Ox 96% on R/A; rs5 18:42 BP 137 / 61; Pulse 61; Resp 17; Pulse Ox 97% on R/A; rs5 20:30 BP 142 / 73; Pulse 59; Resp 18; Pulse Ox 99% on R/A; pc2 MDM: 15:25 Patient medically screened. kb 17:07 Differential diagnosis: CHF, DVT, pulmonary edema, abnormal ekg. Data reviewed: vital kb signs, nurses notes. Consideration of Admission/Observation Patient was admitted/placed on observation. Escalation of care including admission/observation considered. Management of patient was discussed with the following: Hospitalist: Hospitalist team, pt accepted for admission under Dr Campos. Historians other than the Patient: EMS: [facility]. Counseling: I had a detailed discussion with the patient and/or guardian regarding the historical points, exam findings, and any diagnostic results supporting the discharge/admit diagnosis, lab results, radiology results, the need for further work-up and treatment in the hospital. 04/07 15:25 Order name: Basic Metabolic Panel; Complete Time: 16:31 kb 04/07 15:25 Order name: CBC with Diff; Complete Time: 16:55 kb 04/07 15:25 Order name: Magnesium; Complete Time: 16:31 kb 04/07 15:25 Order name: NT PRO-BNP; Complete Time: 16:31 kb 04/07 15:25 Order name: Troponin HS; Complete Time: 16:31 kb 04/07 16:11 Order name: CBC Smear Scan; Complete Time: 16:55 EDMS 04/07 18:01 Order name: Urinalysis w/ reflexes EDMS 04/07 18:01 Order name: Basic Metabolic Panel EDMS 04/07 18:01 Order name: Basic Metabolic Panel EDMS 04/07 18:01 Order name: Basic Metabolic Panel EDMS 04/07 18:01 Order name: Basic Metabolic Panel EDMS 04/07 18:01 Order name: Basic Metabolic Panel EDMS 04/07 18:01 Order name: Basic Metabolic Panel EDMS 04/07 18:01 Order name: CBC with Automated Diff EDMS 04/07 18:01 Order name: CBC with Automated Diff EDMS 04/07 18:01 Order name: CBC with Automated Diff EDMS 04/07 18:01 Order name: CBC with Automated Diff EDMS 04/07 18:01 Order name: CBC with Automated Diff EDMS 04/07 18:01 Order name: CBC with Automated Diff EDMS 04/07 18:01 Order name: Magnesium EDMS 04/07 18:01 Order name: Magnesium EDMS 04/07 18:01 Order name: Magnesium EDMS 04/07 18:01 Order name: Magnesium EDMS 07 18:02 Order name: Magnesium EDMS 04/07 18:02 Order name: Magnesium EDMS 04/07 18:02 Order name: Phosphorus EDMS 04/07 18:02 Order name: Phosphorus EDMS 07 18:02 Order name: Phosphorus EDMS 07 18:02 Order name: Phosphorus EDMS 07 18:02 Order name: Phosphorus EDMS 04/07 18:02 Order name: Phosphorus EDMS 04/07 15:25 Order name: XRAY Chest (1 view); Complete Time: 16:28 kb 04/07 16:31 Order name: US Extremity Venous W Compression Yobani; Complete Time: 17:48 kb 04/07 15:25 Order name: Cardiac monitoring; Complete Time: 16:12 kb 04/07 15:25 Order name: EKG - Nurse/Tech; Complete Time: 16:12 kb 04/07 15:25 Order name: IV Saline Lock; Complete Time: 16:12 kb 04/07 15:25 Order name: Labs collected and sent; Complete Time: 16:12 kb 04/07 15:25 Order name: O2 Per Protocol; Complete Time: 16:12 kb 04/07 15:25 Order name: O2 Sat Monitoring; Complete Time: 16:12 kb EC:30 Rate is 60 beats/min. Rhythm is regular. QRS [place] is Normal. RI interval is normal at kb 118 msec. QRS interval is normal at 82 msec. QT interval is normal at 462 msec. Administered Medications: 17:06 CANCELLED (Physician Discretion): [id number] mg PO once kb 17:12 Drug: morphine IVP or IV 2 mg IVP once over 4 mins Route: IVP; Infused Over: 4 mins; rs5 Site: right antecubital; 17:30 Follow up: Response: No adverse reaction; Pain is decreased rs5 17:12 Drug: Ondansetron IVP 4 mg IVP once; over 2 minutes Route: IVP; Site: right antecubital;rs5 17:30 Follow up: Response: No adverse reaction rs5 Disposition Summary: 04/07/24 17:10 Hospitalization Ordered Notes: Hospitalization Status: Observation kb Provider: Eleazar Campos Location: Telemetry/MedSur (observation) kb Condition: Stable kb Problem: new kb Symptoms: are unchanged kb Bed/Room Type: Standard kb Room Assignment: 410(04/07/24 18:34) hb Diagnosis - Unspecified combined systolic (congestive) and diastolic (congestive) heart failure kb Forms: - Medication Reconciliation Form kb - SBAR form kb - Leadership Thank You Letter kb Addendum: 04/10/2024 07:06 Co-signature as Attending Physician, Gil Capmos MD I reviewed the patient's care r n provided by the Advanced Practice Provider and agree with the diagnosis and treatment plan. Signatures: Dispatcher [employer] EDSD Libertad Hood, MEDICAL BILLING ASSOCIATE-C MEDICAL BILLING ASSOCIATE-Ckb Gil Campos MD MD rn Baxter, Heather, RN RN Jaya Coughlin, RN RN rs5 Corrections: (The following items were deleted from the chart) 07 15:26 15:26 Chest Single View+RAD.RAD.BRZ ordered. [facility] 17:06 17:04 traMADol PO 50 mg PO once ordered. kb kb 18:34 17:10 kb hb
--- NOTE | 2024-04-07 17:11 | ER ---
Nurse's Notes [facility] Name: Jelly Garcia Age: 78 yrs Sex: Female : 1945 Arrival Date: 04/07/2024 Time: 15:11 Bed 17 Private MD: Diagnosis: Unspecified combined systolic (congestive) and diastolic (congestive) heart failure Presentation: 04/07 15:24 Chief complaint: EMS states: Bilat leg swelling x3 days. Denies chest pain and SOB at rs5 this moment. 15:24 Coronavirus screen: At this time, the client does not indicate any symptoms associated rs5 with coronavirus-19. Ebola Screen: No symptoms or risks identified at this time. Initial Sepsis Screen: Does the patient meet any 2 criteria? No. Patient's initial sepsis screen is negative. Does the patient have a suspected source of infection? No. Patient's initial sepsis screen is negative. Risk Assessment: Do you want to hurt yourself or someone else? Patient reports no desire to harm self or others. Onset of symptoms was April 07, 2024. Care prior to arrival: Medication(s) given: 40 mg Lasix IV initiated. 20 GA, in the right antecubital area. 15:24 Method Of Arrival: EMS: [facility] rs 15:24 Acuity: BRIAN 3 rs5 Triage Assessment: 15:30 General: Appears in no apparent distress. uncomfortable, Behavior is calm, cooperative. rs5 Pain: Complains of pain in legs bilat Pain currently is 6 out of 10 on a pain scale. Quality of pain is described as aching, Is continuous. Historical: - Allergies: 15:30 No Known Allergies; rs5 - PMHx: 15:24 Diabetes - NIDDM; Fibromyalgia; Temporal Arteritis; Hypertension; Atrial Fib; rs5 - PSHx: 15:30 right knee surgery; rs5 - Immunization history:: Adult Immunizations up to date. - Infectious Disease History:: Denies. - Social history:: Smoking status: Patient denies any tobacco usage or history of. Screenin:23 [facility] ED Fall Risk Assessment (Adult) History of falling in the last 3 months, rs5 including since admission Yes- single mechanical fall (1 pt) Confusion or Disorientation No (0 pts) Intoxicated or Sedated No (0 pts) Impaired Gait Yes (1 pt) Mobility Assist Device Used Yes (1 pt) Altered Elimination No (0 pt) Score/Fall Risk Level 3 or more points = High Risk Oriented to surroundings, Maintained a safe environment. Abuse screen: Denies threats or abuse. Nutritional screening: No deficits noted. Tuberculosis screening: No symptoms or risk factors identified. Assessment: 15:24 General: Appears in no apparent distress. uncomfortable, Behavior is calm, cooperative. rs5 Pain: Complains of pain in legs bilat Pain currently is 6 out of 10 on a pain scale. Quality of pain is described as aching, Is continuous. Neuro: Level of Consciousness is awake, alert, obeys commands, Oriented to person, place, time, situation. Cardiovascular: Patient's skin is warm and dry. Respiratory: Airway is patent Respiratory effort is even, unlabored, Respiratory pattern is regular, symmetrical. GI: Abdomen is round non-distended, Abd is soft and non tender X 4 quads. : No signs and/or symptoms were reported regarding the genitourinary system. EENT: No signs and/or symptoms were reported regarding the EENT system. Derm: Skin is intact, Skin is pink, warm \T\ dry. Musculoskeletal: Range of motion: limited in legs bilat Swelling present in legs bilat. 16:19 Reassessment: Patient and/or family updated on plan of care and expected duration. Pain rs5 level reassessed. Patient is alert, oriented x 3, equal unlabored respirations, skin warm/dry/pink. 17:22 Reassessment: Patient and/or family updated on plan of care and expected duration. Pain rs5 level reassessed. Patient is alert, oriented x 3, equal unlabored respirations, skin warm/dry/pink. 18:42 Reassessment: Patient and/or family updated on plan of care and expected duration. Pain rs5 level reassessed. Patient is alert, oriented x 3, equal unlabored respirations, skin warm/dry/pink. Patient states feeling better. Patient states symptoms have improved. 19:30 Reassessment: Patient and/or family updated on plan of care and expected duration. Pain pc2 level reassessed. 19:30 General: Appears in no apparent distress. Behavior is calm, cooperative. Neuro: Level pc2 of Consciousness is awake, alert, obeys commands, Oriented to person, place, time, situation. Cardiovascular: Patient's skin is warm and dry. Respiratory: Airway is patent Respiratory effort is even, unlabored, Respiratory pattern is regular, symmetrical. GI: Abdomen is round non-distended. : No signs and/or symptoms were reported regarding the genitourinary system. EENT: No signs and/or symptoms were reported regarding the EENT system. Derm: Skin is pink, warm \T\ dry. Musculoskeletal: Swelling. Vital Signs: 15:24 BP 131 / 53; Pulse 71; Resp 17; Temp 97.9(O); Pulse Ox 99% on R/A; rs5 16:20 BP 132 / 54; Pulse 77; Resp 17; Pulse Ox 96% on R/A; rs5 18:42 BP 137 / 61; Pulse 61; Resp 17; Pulse Ox 97% on R/A; rs5 20:30 BP 142 / 73; Pulse 59; Resp 18; Pulse Ox 99% on R/A; pc2 ED Course: 15:23 Patient arrived in ED. rs5 15:23 Patient has correct armband on for positive identification. Placed in gown. Bed in low rs5 position. Call light in reach. Side rails up X2. 15:23 No provider procedures requiring assistance completed. rs5 15:25 Libertad Hood FNP-C is [facility]. kb 15:25 Gil Campos MD is Attending Physician. kb 15:29 Triage completed. rs5 15:31 Jaya Coughlin, RN is Primary Nurse. rs5 16:08 XRAY Chest (1 view) In Process Unspecified. EDMS 17:10 Eleazar Campos MD is Hospitalizing Provider. kb 17:29 US Extremity Venous W Compression Yobani In Process Unspecified. EDMS 18:43 Patient admitted, IV remains in place. rs5 19:12 Provided Education on: need for admit. pc2 19:12 Patient notified of wait time. pc2 Administered Medications: 17:06 CANCELLED (Physician Discretion): [id number] mg PO once kb 17:12 Drug: morphine IVP or IV 2 mg IVP once over 4 mins Route: IVP; Infused Over: 4 mins; rs5 Site: right antecubital; 17:30 Follow up: Response: No adverse reaction; Pain is decreased rs5 17:12 Drug: Ondansetron IVP 4 mg IVP once; over 2 minutes Route: IVP; Site: right antecubital;rs5 17:30 Follow up: Response: No adverse reaction rs5 Medication: 16:20 VIS not applicable for this client. rs5 Outcome: 17:10 Decision to Hospitalize by Provider. kb 18:43 Admitted to ER Hold. Please see [facility] for further documentation. rs5 18:43 Condition: stable 18:43 Instructed on the need for admit, Demonstrated understanding of instructions, 21:01 Patient left the ED. pc2 Signatures: Dispatcher [employer] EDMS Libertad Hood, AIDS NURSE-C AIDS NURSE-Jaya Salazar, RN RN rs5 Arline Schmid, RN RN pc2 Corrections: (The following items were deleted from the chart) 16:20 16:20 BP 132 / 48; Pulse 77bpm; Resp 17bpm; Pulse Ox 99% RA; rs5 rs5 18:42 16:20 BP 132 / 54; Pulse 77bpm; Resp 17bpm; Pulse Ox 99% RA; rs5 rs5
--- NOTE | 2024-04-07 17:29 | P.HP ---
Certification for Inpatient Patient admitted to: Inpatient With expected LOS: <2 Midnights Patient will require the following post-hospital care: None Practitioner: I am a practitioner with admitting privileges, knowledge of patient current condition, hospital course, and medical plan of care. Services: Services provided to patient in accordance with Admission requirements found in Title 42 Section 412.3 of the Code of Federal Regulations Patient History Date of Service: 04/07/24 Reason for admission: CHF exacerbation History of Present Illness: Jelly Garcia is a 78 year old male with Pmhx chronic diastolic congestive heart failure, CAD with previous CABG, chronic atrial fibrillation, diabetes mellitus type 2, hypertension, GERD, Parkinson's, seizures, fibromyalgia and spinal osteomyelitis who presents to the ED with chief complaint of bilateral lower extremity edema that began 4 to 5 days ago with intermittent chest pain and shortness of breath. She reports being out of one of her Lasix and has since been able to pick it up. She was given Lasix while on the ambulance. She has urinated significantly. She states she is recovering from bronchitis and believes that is why show he has a cough. Elevated white count but afebrile, no reports of fever in the past. Of note, she came to the emergency room due to her family's suggestion but was not feeling bad enough to come in on her own. She has agreed to stay overnight for diureses. Initial vitals BP 131 / 53; Pulse 71; Resp 17; Temp 97.9(O); Pulse Ox 99% on R/A; Laboratory evaluation WBC 14.6, sodium 137, potassium 3.9, bicarb 31, BUN/creatinine 25/1.64, GFR 32, serum glucose 181, BNP 6189 Chest x-ray reports "Mild interstitial pulmonary edema. The heart is moderately enlarged. Multi lead pacer/ defibrillator device. Sternotomy wires. IMPRESSION: Mild CHF." Jelly will be admitted to hospitalist service for further evaluation and treatment. Allergies shellfish derived Allergy (Unknown, Verified 11/03/23 17:44) unknown Pork/Porcine Containing Products Allergy (Verified 11/03/23 17:44) unknown Home Medications: Duloxetine [Cymbalta *] 60 mg PO BID 01/20/18 Omeprazole 40 mg PO DAILY 01/20/18 Spironolactone 1 tab PO DAILY 06/06/23 Amiodarone HCl [Cordarone*] 200 mg PO DAILY 10/22/23 Apixaban [Eliquis *] 5 mg PO BID 10/22/23 Atorvastatin Calcium [Lipitor] 80 mg PO BEDTIME 10/22/23 Bethanechol Chloride 10 mg PO TID 10/22/23 Carbidopa/Levodopa [Carbidopa-Levo 25-100 mg Odt] 1 each PO TID 10/22/23 Gabapentin [Neurontin*] 100 mg PO BID 10/22/23 Sacubitril/Valsartan [Entresto 24 mg-26 mg Tablet] 1 tab PO BID 10/22/23 carvediloL [Coreg*] 3.125 mg PO BID 10/22/23 Melatonin 10 mg PO BEDTIME PRN PRN 11/03/23 Ropinirole HCl [Requip*] 0.5 mg PO BEDTIME tab 11/03/23 Docusate [Colace Cap*] 100 mg PO BID 11/04/23 Lactobacillus Acidophilus [Acidophilus Lactobacilli] 1 cap PO BID 11/04/23 traMADol HCL [Ultram*] 50 mg PO Q6H PRN 11/04/23 Furosemide [Lasix] 20 mg PO DAILY #30 11/09/23 - Past Medical/Surgical History Diabetic: Yes -: fibromyalgia -: Chronic diastolic congestive heart failure -: HTN -: brain tumor- 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 rebuilt surg -: fibroid sx -: hysterectomy -: Pacemaker, CABG 2022 Psychosocial/ Personal History: Lives at home alone, family frequently check on her, has home health - Family History Sister -: Heart disease, Hypertension Notes: additional sister with arthritis Father -: Cancer Notes: lung Mother -: Cancer Notes: colon - Social History Alcohol use: No CD- Drugs: No Caffeine use: No Review of Systems Respiratory: Cough Musculoskeletal: Other (2+ edema bilateral lower extremity) Physical Examination - Physical Exam General: Alert, In no apparent distress, Oriented x3 HEENT: Atraumatic, Normocephalic, PERRLA Neck: Supple, 2+ carotid pulse no bruit, JVD not distended Respiratory: Clear to auscultation bilaterally, Normal air movement Cardiovascular: Normal pulses, Regular rate/rhythm, Normal S1 S2 Capillary refill: <2 Seconds Gastrointestinal: Normal bowel sounds, Soft and benign, Distended (Obese) Musculoskeletal: Swelling (Bilateral lower extremity) Integumentary: No rashes Neurological: Normal speech, Normal tone - Studies Laboratory Data (last 24 hrs) 04/07/24 04/07/24 15:39 15:39 WBC 14.60 H Hgb 12.6 Hct 39.9 Plt Count 287 Sodium 137 Potassium 3.9 BUN 25 H Creatinine 1.64 H Glucose 181 H Magnesium 2.0 Assessment and Plan - Plan Assessment and plan Acute hypoxic respiratory failure secondary to congestive heart failure exacerbation Fluid volume overload Leukocytosis -Chest x-ray reports "Mild interstitial pulmonary edema. The heart is moderately enlarged. Multi lead pacer/ defibrillator device. Sternotomy wires. IMPRESSION: Mild CHF." -BNP 6189, troponin 26.9, sodium 137, WBC 14 -Diurese -Strict intake and output -Daily weights Diabetes mellitus -Accu-Chek sign scale insulin -Serum glucose 181 Atrial fibrillation with AICD -Continue home medication -Continuous telemetry History of Parkinson History of fibromyalgia History of seizures History of hypertension History of CAD status post CABG History of GERD -Continue home medications when available and if appropriate DVT PPx SCD Full code LOS 3 days Discharge Plan: Home Plan to discharge in: 48 Hours - Advance Directives Does patient have a Living Will: No Does patient have a Durable POA for Healthcare: No
[2024-04-07] MEDS ORDERED: ONDANSETRON 4 MG/2 ML VIAL ONE (17:41)
[2024-04-07] MEDS ORDERED: MORPHINE 2 MG/ML SYR ONE (17:42)
--- NOTE | 2024-04-07 17:46 | RAD REPORT ---
EXAM DESCRIPTION: US - Extrem Venous W Compress Yobani - 04/07/2024 5:27 pm CLINICAL HISTORY: Pain;Swelling Bilateral leg edema and swelling. COMPARISON: <Comparisons> TECHNIQUE: Real-time sonographic interrogation of the left and right lower extremity deep venous sys tems was performed. FINDINGS: Normal compressibility, flow augmentation, phasic flow and spontaneous flow is identified in both the left and right lower extremity deep venous systems. IMPRESSION: No sonographic evidence of left or right lower extremity deep venous thrombosis.
[2024-04-07] MEDS ORDERED: ACETAMINOPHEN 500 MG TAB PO PRN (17:54)
[2024-04-07 21:11] VITALS: TEMP 97.9
[2024-04-07 22:01] VITALS: BMI 43.3
[2024-04-07] MEDS: FUROSEMIDE 40 MG/4 ML VIAL IV SCH (22:12)
[2024-04-08 04:29] VITALS: O2SAT 95
[2024-04-08 06:49] LABS: Absolute Basophils 0.1 K/uL (0-0.5); Absolute Lymphocytes (CBC) 0.5 K/uL (0.7-4.9); Absolute Monocytes 1.1 K/uL (0.1-1.3); Absolute Neutrophil 9.4 K/uL (1.8-8.0); Basophils % 0.7 % (0-1.3); Eosinophils % 0.2 % (0-4.4); Hematocrit 42.4 % (36.0-45.0); Hemoglobin 13.4 g/dL (12.0-15.0); Lymphocytes % 4.8 % (15.3-44.8); MCH 28.1 pg (27.0-35.0); MCHC 31.6 g/dL (32.0-36.0); MCV 88.9 fL (80-100); MPV 7.7 fL (7.6-11.3); Monocytes % 9.8 % (3.3-12.3); Neutrophils % 84.5 % (41.7-73.7); Nucleated Red Blood Cells % 0.1 % (0-0); Platelets 245 thou/uL (152-406); RBC Red Blood Cell Count 4.76 M/uL (3.86-4.86); Red Cell Distribution Width 16.9 % (12.1-15.2)
[2024-04-08 07:18] LABS: Anion Gap 9.7 mEq/L (5.0-15.0); Magnesium 1.9 mg/dL (1.6-2.4); Phosphorus 3.3 mg/dL (2.5-4.9); Potassium 3.7 mEq/L (3.5-5.1)
[2024-04-08] MEDS ORDERED: HOME MED 1 EA UNK (Carbidopa/Levodopa [Carbidopa-Levo 25-100 Mg Odt] Tab.Rapdis) PO SCH (09:00)
[2024-04-08] MEDS: DULOXETINE 30 MG CAP PO SCH (09:51)
[2024-04-08] MEDS: AMIODARONE HCL 200 MG TAB PO SCH (09:51)
[2024-04-08] MEDS: APIXABAN 5 MG TABLET PO SCH (09:51)
[2024-04-08 09:55] VITALS: BP 126/60
--- NOTE | 2024-04-08 16:13 | P.DS ---
Admission Date: 04/07/24 Discharge Date: 04/08/24 Disposition: ROUTINE DISCHARGE Discharge Condition: GOOD Reason for Admission: CHF exacerbation Brief History of Present Illness: Diagnosis Acute hypoxic respiratory failure secondary to congestive heart failure exacerbation Bilateral lower extremity edema secondary to Fluid volume overload Leukocytosis Diabetes mellitus Atrial fibrillation with AICD History of Parkinson History of fibromyalgia History of seizures History of hypertension History of CAD status post CABG History of GERD HPI 04/07/24 Jelly Garcia is a 78 year old male with Pmhx chronic diastolic congestive heart failure, CAD with previous CABG, chronic atrial fibrillation, diabetes mellitus type 2, hypertension, GERD, Parkinson's, seizures, fibromyalgia and spinal osteomyelitis who presents to the ED with chief complaint of bilateral lower extremity edema that began 4 to 5 days ago with intermittent chest pain and shortness of breath. She reports being out of one of her Lasix and has since been able to pick it up. She was given Lasix while on the ambulance. She has urinated significantly. She states she is recovering from bronchitis and believes that is why show he has a cough. Elevated white count but afebrile, no reports of fever in the past. Of note, she came to the emergency room due to her family's suggestion but was not feeling bad enough to come in on her own. She has agreed to stay overnight for diureses. Initial vitals BP 131 / 53; Pulse 71; Resp 17; Temp 97.9(O); Pulse Ox 99% on R/A; Laboratory evaluation WBC 14.6, sodium 137, potassium 3.9, bicarb 31, BUN/creatinine 25/1.64, GFR 32, serum glucose 181, BNP 6189 Chest x-ray reports "Mild interstitial pulmonary edema. The heart is moderately enlarged. Multi lead pacer/ defibrillator device. Sternotomy wires. IMPRESSION: Mild CHF." Jelly will be admitted to hospitalist service for further evaluation and treatment. Hospital Course: Jelly Garcia is a pleasant 78 year old female with a past medical history significant for chronic diastolic congestive heart failure, CAD with previous CABG, chronic atrial fibrillation, diabetes mellitus type 2, hypertension, GERD, Parkinson's, seizures, fibromyalgia and spinal osteomyelitis who was admitted to the [facility] on 04/07/24 for fluid volume overload, bilateral lower extremity edema. Jelly Garcia was treated for fluid volume overload, She was given IV lasix and has urinated sufficiently. She reports no complaints of feeling unwell. She was out of lasix for a few days and was behind taking them causing edema. She has tolerated IV lasix, potassium remained stable, and tolerated a PO diet. On 04/08/24, Jelly was seen on morning rounds and deemed medically stable for discharge. Jelly was discharged with instructions to schedule follow-up appointments with PCP. Jelly was provided prescriptions for Lasix and potassium. Physical Exam General: Alert and Oriented x3, NAD, afebrile HEENT: Atraumatic, Normocephalic, PERRLA Neck: Supple, 2+ carotid pulse no bruit, JVD not distended Respiratory: Clear to auscultation bilaterally, Normal air movement, on RA Cardiovascular: Normal pulses, RRR, Normal S1 S2 Capillary refill: <2 Seconds Gastrointestinal: Normal bowel sounds, Soft and benign, Distended (Obese) Musculoskeletal: Swelling (Bilateral lower extremity) Integumentary: No rashes Neurological: Normal speech, Normal tone Vital Signs/Physical Exam: Temp Pulse Resp BP Pulse Ox 97.9 F 62 16 126/60 90 L 04/08/24 04:00 04/08/24 09:51 04/08/24 04:00 04/08/24 09:51 04/08/24 04:00 Laboratory Data at Discharge: WBC 11.10 thou/uL (4.3-10.9) H 04/08/24 06:14 Hgb 13.4 g/dL (12.0-15.0) 04/08/24 06:14 Hct 42.4 % (36.0-45.0) 04/08/24 06:14 Plt Count 245 thou/uL (152-406) 04/08/24 06:14 Sodium 137 mEq/L (136-145) 04/08/24 06:14 Potassium 3.7 mEq/L (3.5-5.1) 04/08/24 06:14 BUN 27 mg/dL (7-18) H 04/08/24 06:14 Creatinine 1.68 mg/dL (0.55-1.02) H 04/08/24 06:14 Glucose 134 mg/dL (74-106) H 04/08/24 06:14 Phosphorus 3.3 mg/dL (2.5-4.9) 04/08/24 06:14 Magnesium 1.9 mg/dL (1.6-2.4) 04/08/24 06:14 Home Medications: Duloxetine [Cymbalta *] 60 mg PO BID 01/20/18 Omeprazole 40 mg PO DAILY 01/20/18 Spironolactone 1 tab PO DAILY 06/06/23 Amiodarone HCl [Cordarone*] 200 mg PO DAILY 10/22/23 Apixaban [Eliquis *] 5 mg PO BID 10/22/23 Atorvastatin Calcium [Lipitor] 80 mg PO BEDTIME 10/22/23 Bethanechol Chloride 10 mg PO TID 10/22/23 Carbidopa/Levodopa [Carbidopa-Levo 25-100 mg Odt] 1 each PO TID 10/22/23 Gabapentin [Neurontin*] 100 mg PO BID 10/22/23 Sacubitril/Valsartan [Entresto 24 mg-26 mg Tablet] 1 tab PO BID 10/22/23 carvediloL [Coreg*] 3.125 mg PO BID 10/22/23 Melatonin 10 mg PO BEDTIME PRN PRN 11/03/23 Ropinirole HCl [Requip*] 0.5 mg PO BEDTIME tab 11/03/23 Docusate [Colace Cap*] 100 mg PO BID 11/04/23 Lactobacillus Acidophilus [Acidophilus Lactobacilli] 1 cap PO BID 11/04/23 traMADol HCL [Ultram*] 50 mg PO Q6H PRN 11/04/23 Furosemide [Lasix] 20 mg PO DAILY #30 11/09/23 Furosemide [Lasix] 20 mg PO DAILY 30 Days #30 tab 04/08/24 Potassium Chloride [Klor-Con] 20 meq PO DAILY 10 Days #10 packet 04/08/24 New Medications: Potassium Chloride [Klor-Con] 20 meq PO DAILY 10 Days #10 packet Furosemide [Lasix] 20 mg PO DAILY 30 Days #30 tab Physician Discharge Instructions: Jelly Garcia was treated for fluid volume overload, She was given IV lasix and has urinated sufficiently. Lasix was prescribed for future needs if you do not have lasix at home already. Please do not take both lasix from your doctor and what is prescribed by the hospital at the same time. 1. Please call and schedule a follow-up appointment with your PCP in 3-5 days - Please follow-up with your PCP for medication refills/adjustments -Potassium lab draw 2. Continue heart healthy diet 3. activity restrictions, fall precautions 4. Return to the ED if symptoms worsen New medications Lasix 20 mg PO daily- do not double the lasix, prescribing for the future needs potassium 20 mEq daily- when taking lasix please take potassium, follow up with your doctor for potassium lab draw Followup: Federica Kelly FNP [Primary Care Provider] -
[2024-04-08] MEDS ORDERED: ATORVASTATIN 80 MG TAB PO SCH (21:00)
== END 2024-04-08 11:22 | disposition home or self-care (01) ==
LOC: ER 15:11 → ERHOLD 17:54 → 4TH 18:50
PROVIDERS: ADMIT Hospitalist; ATTEND Hospitalist
DX: I50.33 Acute on chronic diastolic (congestive) heart failure (principal); J96.01 Acute respiratory failure with hypoxia; E87.70 Fluid overload, unspecified; D72.829 Elevated white blood cell count, unspecified; E11.9 Type 2 diabetes mellitus without complications; I25.10 Atherosclerotic heart disease of native coronary artery without angina pectoris; I48.11 Longstanding persistent atrial fibrillation; G20.A1 Parkinson's disease without dyskinesia, without mention of fluctuations; M79.7 Fibromyalgia; I10 Essential (primary) hypertension; Z95.1 Presence of aortocoronary bypass graft; K21.9 Gastro-esophageal reflux disease without esophagitis; R56.9 Unspecified convulsions; Z79.01 Long term (current) use of anticoagulants
CPT/HCPCS: 85025 ×2; 80048 ×2; 36415; 83735 ×2; 84100; 84484; 83880; 71045; 93970; 96375; 96374; 99285; J1940 ×2; J2270; J2405

== ENCOUNTER 2024-06-26 16:37 | Inpatient (IN) | payer MEDICAID, OTHER ==
[2024-06-26 17:14] LABS: Absolute Basophils 0.1 K/uL (0-0.5); Absolute Eosinophils 0.1 K/uL (0-0.5); Absolute Lymphocytes (CBC) 0.6 K/uL (0.7-4.9); Absolute Monocytes 0.5 K/uL (0.1-1.3); Absolute Neutrophil 12.3 K/uL (1.8-8.0); Basophils % 0.8 % (0-1.3); Eosinophils % 0.5 % (0-4.4); Hematocrit 38.1 % (36.0-45.0); Lymphocytes % 4.1 % (15.3-44.8); MCH 28.6 pg (27.0-35.0); MCHC 31.4 g/dL (32.0-36.0); MCV 90.9 fL (80-100); MPV 6.7 fL (7.6-11.3); Monocytes % 3.9 % (3.3-12.3); Neutrophils % 90.7 % (41.7-73.7); Platelets 426 thou/uL (152-406); RBC Red Blood Cell Count 4.19 M/uL (3.86-4.86); Red Cell Distribution Width 17.2 % (12.1-15.2)
[2024-06-26 17:28] LABS: Anion Gap 7.4 mEq/L (5.0-15.0); Potassium 4.4 mEq/L (3.5-5.1)
[2024-06-26] MEDS ORDERED: Meropenem 1000 MG/VIAL IV ONE (17:36)
[2024-06-26] MEDS ORDERED: NA CHLORIDE 0.9% 100 ML ONE (17:36)
--- NOTE | 2024-06-26 17:54 | ER ---
Nurse's Notes [facility] Name: Jelly Garcia Age: 78 yrs Sex: Female : 1945 Arrival Date: 06/26/2024 Time: 16:37 Bed 4 Private MD: Diagnosis: UTI/ Urinary tract infection, site not specified;Leukocytosis Presentation: 06/26 16:46 Chief complaint: Patient states: histroy of recurrent UTI's, family doctor sent me ko1 here. Coronavirus screen: At this time, the client does not indicate any symptoms associated with coronavirus-19. Ebola Screen: No symptoms or risks identified at this time. Initial Sepsis Screen: Does the patient meet any 2 criteria? No. Patient's initial sepsis screen is negative. Does the patient have a suspected source of infection? No. Patient's initial sepsis screen is negative. Risk Assessment: Do you want to hurt yourself or someone else? Patient reports no desire to harm self or others. Onset of symptoms is unknown. 16:46 Method Of Arrival: Wheelchair ko1 16:46 Acuity: BRIAN 3 ko1 Triage Assessment: 16:48 General: Appears in no apparent distress. obese, Behavior is calm, cooperative, ko1 appropriate for age. Pain: Complains of pain in all over all the time. Historical: - Allergies: 16:48 Pork/Porcine Containing Products; ko1 16:48 shellfish derived; ko1 - PMHx: 16:48 Atrial Fib; Diabetes - NIDDM; Fibromyalgia; Hypertension; Temporal Arteritis; ko1 - PSHx: 16:48 right knee surgery; ko1 - Immunization history:: Adult Immunizations unknown. - Infectious Disease History:: Denies. - Social history:: Smoking status: Patient denies any tobacco usage or history of. Screenin:43 [facility] ED Fall Risk Assessment (Adult) History of falling in the last 3 months, kc6 including since admission No falls in past 3 months (0 pts) Confusion or Disorientation No (0 pts) Intoxicated or Sedated No (0 pts) Impaired Gait No (0 pts) Mobility Assist Device Used No (0 pt) Altered Elimination No (0 pt) Score/Fall Risk Level 0 - 2 = Low Risk Oriented to surroundings. Abuse screen: Denies threats or abuse. Denies injuries from another. Nutritional screening: No deficits noted. Tuberculosis screening: No symptoms or risk factors identified. Assessment: 17:00 General: Appears comfortable, obese, well groomed, well developed, Behavior is calm, me1 cooperative, appropriate for age. Pain: Denies pain. Neuro: Level of Consciousness is awake, alert, obeys commands, Oriented to person, place, time, situation, Appropriate for age. Cardiovascular: Patient's skin is warm and dry. Respiratory: Airway is patent Respiratory effort is even, unlabored, Respiratory pattern is regular, symmetrical. GI: No signs and/or symptoms were reported involving the gastrointestinal system. : Reports urinary frequency. EENT: No signs and/or symptoms were reported regarding the EENT system. Derm: Skin is intact, is healthy with good turgor, Skin is pink, warm \T\ dry. Musculoskeletal: No signs and/or symptoms reported regarding the musculoskeletal system. 19:58 Reassessment: Patient appears in no apparent distress at this time. Patient and/or bm8 family updated on plan of care and expected duration. Pain level reassessed. Patient is alert, oriented x 3, equal unlabored respirations, skin warm/dry/pink. Patient states feeling better. Patient states symptoms have improved. Pain: Pain currently is 3 out of 10 on a pain scale. : Reports urinary frequency. Vital Signs: 16:46 BP 125 / 59; Pulse 61; Resp 16; Temp 97.1; Pulse Ox 99% ; ko1 17:43 BP 133 / 61; Pulse 65; Resp 16 S; Pulse Ox 97% on R/A; kc6 18:30 BP 140 / 74; Pulse 60; Resp 17; Pulse Ox 93% on R/A; me1 19:58 BP 132 / 60; Pulse 65; Resp 24; Temp 98.6; Pulse Ox 98% on R/A; Pain 3/10; bm8 19:58 Pain Scale: Adult bm8 Paola Coma Score: 19:58 Eye Response: spontaneous(4). Motor Response: obeys commands(6). Verbal Response: bm8 oriented(5). Total: 15. ED Course: 16:40 Patient arrived in ED. ra3 16:41 Feliz Roland DO is Attending Physician. ms3 16:48 Triage completed. ko1 16:48 Arm band placed on right wrist. Patient placed in waiting room, Patient notified of ko1 wait time. 16:59 Lauren Kurtz, RN is Primary Nurse. me1 17:00 Provided Education on: POC. Verbalized understanding. . Client placed on continuous me1 cardiac and pulse oximetry monitoring. NIBP monitoring applied. 17:00 No provider procedures requiring assistance completed. me1 17:26 Urinalysis w/ reflexes Sent. me1 17:26 BMP Sent. me1 17:26 Initial lab(s) drawn, by md, sent to lab. Urine collected: clean catch specimen, md1 cloudy. Inserted saline lock: 22 gauge in right antecubital area, using aseptic technique. 17:43 Patient has correct armband on for positive identification. Bed in low position. Call kc6 light in reach. Side rails up X2. 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 Pulse ox on. NIBP on. Door closed. Noise minimized. Warm blanket given. Pillow given. 17:43 Patient maintains SpO2 saturation greater than 95% on room air. kc6 17:49 Elias Friedman is Hospitalizing Provider. ms3 19:58 Provided Education on: need for admission. bm8 19:58 Patient admitted, IV remains in place. bm8 Administered Medications: 17:43 Drug: Meropenem IV 1 grams IV at calculated rate once; (mix in NS 100 mL) Route: IV; kc6 Rate: calculated rate; Site: right antecubital; 18:28 Follow up: Response: No adverse reaction; IV Status: Completed infusion; IV Intake: kc6 100ml 20:01 Follow up: Response: No adverse reaction; IV Status: Completed infusion; IV Intake: bm8 100ml Medication: 17:00 VIS not applicable for this client. me1 Intake: 18:28 IV: 100ml; Total: 100ml. kc6 20:01 IV: 100ml; Total: 200ml. bm8 Outcome: 17:53 Decision to Hospitalize by Provider. ms3 19:58 Admitted to Med/surg accompanied by nurse, via wheelchair, room 217, on monitor, bm8 19:58 Condition: stable 19:58 Instructed on the need for admit, Demonstrated understanding of instructions, follow-up care, 20:15 Patient left the ED. bm8 Signatures: Feliz Roland DO DO ms3 Viridiana Velez RN RN kc6 Thalia Marie, RN RN ko1 Lauren Kurtz, RN RN me1 Hilaria Lindsey ra3 Lopez Simpson, RN RN bm8
--- NOTE | 2024-06-26 17:54 | EDPHYS ---
Physician Documentation [facility] Name: Jelly Garcia Age: 78 yrs Sex: Female : 1945 Arrival Date: 06/26/2024 Time: 16:37 Bed 4 Private MD: ED Physician Feliz Roland HPI: 06/26 16:52 This 78 yrs old Female presents to ER via Wheelchair with complaints of Urinary Problem.ms3 16:52 78-year-old female with past medical history of atrial fibrillation, diabetes, ms3 fibromyalgia, hypertension, temporal arteritis presents to the emergency department under the instruction of Dr. Lynn for multidrug-resistant urinary tract infection. Patient states results of her recent urinalysis and urine culture were faxed to the emergency department. Patient denies pain.. Historical: - Allergies: 16:48 Pork/Porcine Containing Products; ko1 16:48 shellfish derived; ko1 - PMHx: 16:48 Atrial Fib; Diabetes - NIDDM; Fibromyalgia; Hypertension; Temporal Arteritis; ko1 - PSHx: 16:48 right knee surgery; ko1 - Immunization history:: Adult Immunizations unknown. - Infectious Disease History:: Denies. - Social history:: Smoking status: Patient denies any tobacco usage or history of. ROS: 16:52 Constitutional: Negative for fever, and chills. Neck: Negative for injury, pain, and ms3 swelling, Cardiovascular: Negative for chest pain, and palpitations. Respiratory: Negative for shortness of breath, cough, wheezing, and pleuritic chest pain, Abdomen/GI: Negative for abdominal pain, nausea, vomiting, diarrhea, and constipation, MS/Extremity: Negative for injury and deformity, Skin: Negative for injury, rash, and discoloration, Exam: 16:52 Constitutional: This is a well developed, well nourished patient who is awake, alert, ms3 and in no acute distress. Head/Face: Normocephalic, atraumatic. Chest/axilla: Normal chest wall appearance and motion. Nontender with no deformity. Cardiovascular: Regular rate and rhythm with a normal S1 and S2. No gallops, murmurs, or rubs. Normal PMI, no JVD. No pulse deficits. Respiratory: Lungs have equal breath sounds bilaterally, clear to auscultation and percussion. No rales, rhonchi or wheezes noted. No increased work of breathing, no retractions or nasal flaring. Abdomen/GI: Soft, non-tender, with normal bowel sounds. No distension or tympany. No guarding or rebound. No evidence of tenderness throughout. Skin: Warm, dry with normal turgor. Normal color with no rashes, no lesions, and no evidence of cellulitis. MS/ Extremity: Pulses equal, no cyanosis. Neurovascular intact. Full, normal range of motion. Vital Signs: 16:46 BP 125 / 59; Pulse 61; Resp 16; Temp 97.1; Pulse Ox 99% ; ko1 17:43 BP 133 / 61; Pulse 65; Resp 16 S; Pulse Ox 97% on R/A; kc6 18:30 BP 140 / 74; Pulse 60; Resp 17; Pulse Ox 93% on R/A; me1 19:58 BP 132 / 60; Pulse 65; Resp 24; Temp 98.6; Pulse Ox 98% on R/A; Pain 3/10; bm8 19:58 Pain Scale: Adult bm8 Ingram Coma Score: 19:58 Eye Response: spontaneous(4). Motor Response: obeys commands(6). Verbal Response: bm8 oriented(5). Total: 15. MDM: 16:50 Patient medically screened. ms3 17:53 Differential diagnosis: urinary tract infection, Pyelonephritis. Data reviewed: vital ms3 signs, nurses notes, lab test result(s), and as a result, I will admit patient. Consideration of Admission/Observation Patient was admitted/placed on observation. Management of patient was discussed with the following: Hospitalist: Discussed case with Dr Friedman. Management of patient was discussed with the following: Tank Worker: Dr Lynn- Would like patient admitted for IV abx. I considered the following discharge prescriptions or medication management in the emergency department Medications were administered in the Emergency Department. See MAR. Care significantly affected by the following chronic conditions: Diabetes, Hypertension. Counseling: I had a detailed discussion with the patient and/or guardian regarding the historical points, exam findings, and any diagnostic results supporting the discharge/admit diagnosis, lab results, the need for further work-up and treatment in the hospital. ED course: Discussed case with Dr Friedman and he accepts patient. Discussed necessity of admission with patient and she understands/ agrees with plan.. 06/26 16:41 Order name: Urinalysis w/ reflexes ms3 06/26 16:58 Order name: CBC with Diff ms3 06/26 16:58 Order name: BMP; Complete Time: 17:45 ms3 06/26 18:06 Order name: Urine Culture EDMS 06/26 18:19 Order name: CBC Smear Scan EDMS Administered Medications: 17:43 Drug: Meropenem IV 1 grams IV at calculated rate once; (mix in NS 100 mL) Route: IV; kc6 Rate: calculated rate; Site: right antecubital; 18:28 Follow up: Response: No adverse reaction; IV Status: Completed infusion; IV Intake: kc6 100ml 20:01 Follow up: Response: No adverse reaction; IV Status: Completed infusion; IV Intake: bm8 100ml Disposition Summary: 06/26/24 17:53 Hospitalization Ordered Notes: Hospitalization Status: Inpatient Admission ms3 Provider: Elias Friedman ms3 Location: Telemetry/[facility] (Inpatient) ms3 Condition: Stable ms3 Problem: new ms3 Symptoms: are unchanged ms3 Bed/Room Type: Standard ms3 Room Assignment: 217(06/26/24 19:26) vk Diagnosis - UTI/ Urinary tract infection, site not specified ms3 - Leukocytosis ms3 Forms: - Medication Reconciliation Form ms3 - SBAR form ms3 - Leadership Thank You Letter ms3 Signatures: Dispatcher [employer] EDMS Feliz Roland DO DO ms3 Viridiana Velez RN RN kc6 Thalia Marie RN RN Nadege Flynn Brad RN bm8 Corrections: (The following items were deleted from the chart) 19:26 17:53 ms3 vk
[2024-06-26 17:58] LABS: Specific Gravity 1.011 (1.005-1.030); Urine Bacteria <20 /HPF (<20); Urine Bilirubin NEGATIVE (Negative); Urine Blood 2+ (Negative); Urine Clarity Extremely Turbid (Clear); Urine Color Yellow (Yellow); Urine Crystals Unidentified Few /HPF (None Seen); Urine Culture Reflex Order REFLEXED; Urine Glucose 1+ (Negative); Urine Ketones NEGATIVE (Negative); Urine Microscopic Reflex YN ORDER UMIC; Urine Mucus Slight /HPF (None Seen); Urine Nitrite 1+ (Negative); Urine Protein TRACE (Negative); Urine RBC 21-50 /HPF (None Seen); Urine Urobilinogen Normal (Normal); Urine WBC >50 /HPF (<5); Urine WBC Clump Moderate /HPF (None Seen); Urine pH 5.5 (5.0-7.0)
[2024-06-26] MEDS ORDERED: ACETAMINOPHEN 500 MG TAB PO PRN (18:56)
[2024-06-26] MEDS ORDERED: ONDANSETRON 4 MG/2 ML VIAL IV PRN (18:56)
[2024-06-26 19:32] LABS: Platelet Estimate INCR; White Blood Cell Scan OK (OK)
[2024-06-26 19:36] LABS: Blood Morphology Comment NOT SEEN (NOT SEEN)
[2024-06-26 21:27] VITALS: BMI 39.3
--- NOTE | 2024-06-26 21:41 | P.HP ---
Certification for Inpatient Patient admitted to: Observation With expected LOS: <2 Midnights Practitioner: I am a practitioner with admitting privileges, knowledge of patient current condition, hospital course, and medical plan of care. Services: Services provided to patient in accordance with Admission requirements found in Title 42 Section 412.3 of the Code of Federal Regulations Patient History Date of Service: 06/26/24 Reason for admission: UTI History of Present Illness: 78-year-old woman with a history of atrial fibrillation, giant cell arteritis, history of recurrent UTI was referred to the emergency department by her shell molding roller blast operator Dr. Lynn due to her urine culture growing ESBL bacteria. Patient has a history of recurrent ESBL E. coli UTI. She currently denies any dysuria or increased urinary frequency. She denies any fever, she denies any nausea or vomiting. At baseline patient is ambulatory with a walker. UA done in the emergency department suggest UTI, patient has mild leukocytosis but does not meet criteria for sepsis. She is hospitalized for IV meropenem. Allergies shellfish derived Allergy (Unknown, Verified 04/07/24 21:47) unknown Pork/Porcine Containing Products Allergy (Verified 04/07/24 21:47) unknown Home Medications: Duloxetine [Cymbalta *] 60 mg PO BID 01/20/18 Omeprazole 40 mg PO DAILY 01/20/18 Spironolactone 1 tab PO DAILY 06/06/23 Amiodarone HCl [Cordarone*] 200 mg PO DAILY 10/22/23 Apixaban [Eliquis *] 5 mg PO BID 10/22/23 Atorvastatin Calcium [Lipitor] 80 mg PO BEDTIME 10/22/23 Bethanechol Chloride 10 mg PO TID 10/22/23 Carbidopa/Levodopa [Carbidopa-Levo 25-100 mg Odt] 1 each PO TID 10/22/23 Gabapentin [Neurontin*] 100 mg PO BID 10/22/23 Sacubitril/Valsartan [Entresto 24 mg-26 mg Tablet] 1 tab PO BID 10/22/23 carvediloL [Coreg*] 3.125 mg PO BID 10/22/23 Melatonin 10 mg PO BEDTIME PRN PRN 11/03/23 Ropinirole HCl [Requip*] 0.5 mg PO BEDTIME tab 11/03/23 Docusate [Colace Cap*] 100 mg PO BID 11/04/23 Lactobacillus Acidophilus [Acidophilus Lactobacilli] 1 cap PO BID 11/04/23 traMADol HCL [Ultram*] 50 mg PO Q6H PRN 11/04/23 Furosemide [Lasix] 20 mg PO DAILY #30 11/09/23 Furosemide [Lasix] 20 mg PO DAILY 30 Days #30 tab 04/08/24 Potassium Chloride [Klor-Con] 20 meq PO DAILY 10 Days #10 packet 04/08/24 - Past Medical/Surgical History Diabetic: Yes -: fibromyalgia -: Chronic diastolic congestive heart failure -: HTN -: brain tumor- 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 rebuilt surg -: fibroid sx -: hysterectomy -: Pacemaker, CABG 2022 Psychosocial/ Personal History: Lives at home alone, family frequently check on her, has home health - Family History Sister -: Heart disease, Hypertension Notes: additional sister with arthritis Father -: Cancer Notes: lung Mother -: Cancer Notes: colon - Social History Smoking Status: Never smoker Alcohol use: Yes CD- Drugs: Yes Caffeine use: Yes Review of Systems Other: Except as documented, all other systems reviewed and negative. Physical Examination - Vital Signs Temperature: 98.6 F Blood Pressure: 132/60 Pulse: 65 Respirations: 24 Pulse Ox (%): 98 - Physical Exam General: Alert, In no apparent distress, Oriented x3, Obese HEENT: Mucous membr. moist/pink, Sclerae nonicteric Neck: Supple, JVD not distended Respiratory: Clear to auscultation bilaterally, Normal air movement Cardiovascular: No edema, Regular rate/rhythm, No murmurs Capillary refill: <2 Seconds Gastrointestinal: Normal bowel sounds, Soft and benign, Non-distended, No tenderness Musculoskeletal: No swelling, No tenderness Integumentary: No rashes, No cyanosis Neurological: Normal speech, Normal strength at 5/5 x4 extr Lymphatics: No axilla or inguinal lymphadenopathy - Studies Laboratory Data (last 24 hrs) 06/26/24 06/26/24 17:09 17:09 WBC 13.60 H Hgb 12.0 Hct 38.1 Plt Count 426 H Sodium 136 Potassium 4.4 BUN 30 H Creatinine 1.77 H Glucose 195 H Assessment and Plan - Problems (Diagnosis) (1) ESBL (extended spectrum beta-lactamase) producing bacteria infection Current Visit: Yes Status: Acute (2) Acute cystitis without hematuria Current Visit: No Status: Acute (3) Atrial fibrillation Current Visit: No Status: Acute - Plan Acute cystitis with ESBL E. coli Place patient under observation Midline for outpatient IV antibiotics requested. Start IV meropenem Repeat urine culture obtained. Follow results. Atrial fibrillation Reconcile and resume home medications. Chronic diastolic heart failure Continue maintenance Lasix therapy Continue Coreg. Chronic kidney disease stage II Patient is on maintenance Lasix therapy Monitor renal function DVT prophylaxis: Heparin SQ Advanced directive: full code - Advance Directives Does patient have a Living Will: No Does patient have a Durable POA for Healthcare: No
[2024-06-26] MEDS ORDERED: ENOXAPARIN 30 MG/0.3 ML SQ SCH (22:00)
[2024-06-27] MEDS: Meropenem 1,000 MG in NA CHLORIDE 0.9% 100 ML IV SCH ×3 (00:38→12:31)
[2024-06-27 04:39] LABS: Absolute Basophils 0.1 K/uL (0-0.5); Absolute Eosinophils 0.1 K/uL (0-0.5); Absolute Lymphocytes (CBC) 0.7 K/uL (0.7-4.9); Absolute Monocytes 0.9 K/uL (0.1-1.3); Absolute Neutrophil 14.1 K/uL (1.8-8.0); Basophils % 0.6 % (0-1.3); Eosinophils % 0.7 % (0-4.4); Hematocrit 39.1 % (36.0-45.0); Hemoglobin 12.4 g/dL (12.0-15.0); Lymphocytes % 4.1 % (15.3-44.8); MCH 28.7 pg (27.0-35.0); MCHC 31.8 g/dL (32.0-36.0); MCV 90.3 fL (80-100); MPV 6.9 fL (7.6-11.3); Platelets 409 thou/uL (152-406); RBC Red Blood Cell Count 4.34 M/uL (3.86-4.86); Red Cell Distribution Width 17.1 % (12.1-15.2)
[2024-06-27 04:40] LABS: Neutrophils % 88.6 % (41.7-73.7)
[2024-06-27 04:52] LABS: Anion Gap 9.3 mEq/L (5.0-15.0); Magnesium 1.9 mg/dL (1.6-2.4); Phosphorus 2.6 mg/dL (2.5-4.9); Potassium 4.3 mEq/L (3.5-5.1)
[2024-06-27] MEDS: HEPARIN 5000 UNIT/ML 1 ML VIAL SQ SCH (09:00)
--- NOTE | 2024-06-27 11:54 | P.PN ---
Subjective Date of Service: 06/27/24 Chief Complaint: UTI Pt is resting comfortably in bed. She is getting iv merrem for UTI. No other complaints. Review of Systems General: Unremarkable Eyes: Unremarkable ENT: Unremarkable Respiratory: Unremarkable Cardiovascular: Unremarkable Gastrointestinal: Unremarkable Genitourinary: Unremarkable Musculoskeletal: Unremarkable Integumentary: Unremarkable Neurological: Unremarkable Lymphatics: Unremarkable Physical Examination - Vital Signs Temperature: 97.5 F Blood Pressure: 140/57 Pulse: 61 Respirations: 23 Pulse Ox (%): 94 - Physical Exam General: Alert, In no apparent distress, Oriented x3, Obese HEENT: Atraumatic, Normocephalic, PERRLA Neck: Supple, 2+ carotid pulse no bruit, JVD not distended Respiratory: Clear to auscultation bilaterally, Normal air movement Cardiovascular: No edema, Normal pulses, Regular rate/rhythm, Normal S1 S2 Capillary refill: <2 Seconds Gastrointestinal: Normal bowel sounds, Soft and benign, Non-distended Musculoskeletal: No clubbing, No swelling, No contractures Integumentary: No rashes, No breakdown, No significant lesion Neurological: Normal gait, Normal speech, Normal strength at 5/5 x4 extr Lymphatics: No axilla or inguinal lymphadenopathy - Studies Laboratory Data (last 24 hrs) 06/26/24 06/26/24 17:09 17:09 WBC 13.60 H Hgb 12.0 Hct 38.1 Plt Count 426 H Sodium 136 Potassium 4.4 BUN 30 H Creatinine 1.77 H Glucose 195 H Assessment And Plan - Plan Acute cystitis with ESBL E. coli: Will continue iv merrem and follow up urine cx. Atrial fibrillation: Will continue telemetry, coreg, amiodarone and eliquis. Chronic diastolic heart failure: Will continue lasix, coreg, strict I/O and daily. Hold Aldactone and entresto due to elevated creatinine. AUDREY on Chronic kidney disease stage II: cr is 1.38 <- 1.77. Will continue IVF, avoid nephrotoxins and monitor renal function. DVT ppx: Heparin Code: full
[2024-06-27] MEDS: APIXABAN 5 MG TABLET PO SCH (12:30)
[2024-06-27] MEDS: **PT MED**Carbidopa/Levodopa [Carbidopa-Levo 25-100 Mg Odt] Tab.Rapdis) PO SCH (12:45)
--- NOTE | 2024-06-27 14:06 | CON ---
Date of Consultation: 06/27/2024 Reason For Consultation: Elevated BUN and creatinine, UTI, fluid management. History Of Present Illness: This is a pleasant 78-year-old female follow up with Dr. Lynn with chronic kidney disease, baseline creatinine 1.5, GFR of 36, CAD complicated with congestive heart failure, diastolic dysfunction, fibromyalgia, hyperlipidemia, the patient had lately recurrent UTI and found to have multidrug resistant ESBL. For that reason, the patient was directed by Dr. Lynn for admission for IV antibiotic. The patient complaining of abdominal pain. The patient had dysuria. Past Medical History: 1. Fibromyalgia. 2. CAD complicated with congestive heart failure, diastolic dysfunction, preserved ejection fraction. 3. Hyperlipidemia. 4. Parkinson's. 5. Diabetes complicated with neuropathy and nephropathy. 6. 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 Baseline creatinine 1.4 with GFR of 36. Past Surgical History: Include: 1. ICD. 2. Hysterectomy. 3. Hernia repair. 4. Left jaw cyst removal. 5. Fibroid removal. 6. ICD. Family History: Positive for CAD, hypertension, and cancer. Social History: Denied smoking, active alcohol. Denied drugs abuse. Review of Systems: Head and Neck: No red eye. No ear pain. GI: Has abdominal pain. : Has dysuria, polyuria. MAILING SECTION CLERK: No vaginal discharge. Respiratory: No shortness of breath. Cardiovascular: No chest pain. Endocrine: No polydipsia. Skin: No rash. Neuro: Has neuropathy. Musculoskeletal: No joint pain. Physical Examination: General: When I saw the patient, the patient lying in bed, comfortable, not on any distress. Vital Signs: Blood pressure 90/42, pulse of 68, afebrile. Chest: Faint rales in the bases. Heart: S1, S2. Systolic murmur. Irregularly irregular. Abdomen: Soft, nontender. No guarding or rebound. Extremities: Trace edema. Neurologic: Alert. No focality. No tremor. Home Medications: Include tramadol, carvedilol 3.125 b.i.d., spironolactone, Entresto, melatonin, Lasix, carbidopa, atorvastatin, Eliquis, and amiodarone. Current Medication: In the hospital include meropenem. Laboratory Data: WBC 15.9, hemoglobin 12.4. Sodium 140, potassium 4.3, bicarb 25, BUN 31, creatinine 1.38, calcium of 9.2, phosphorus 2.6, magnesium 1.9. Assessment And Plan: 1. 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 I am going to continue home medication. We will hold on the blood pressure medication given the marginal low blood pressure currently. 2. Urosepsis with extended-spectrum beta-lactamase, multidrug resistant. I am going to continue meropenem, dose appropriate for her kidney function and we will follow up the patient. 3. Hypertension with the presence of marginal low blood pressure. Hold on blood pressure medication. 4. Congestive heart failure, currently patient with normal volume. Hold on the diuresis. 5. Diabetes as by primary. Thank you, Dr. Griffin for allowing us to participate in the care of your patient. Time spent examining the patient [id number], reviewing data, lab, and radiology, placing order, discussing the case with the patient, discussing the case with the merchandise team manager including hospitalist and nursing staff more than 75 minutes. JEMAL Voice ID: [id number] Report ID: [id number] TUNDE
[2024-06-27] MEDS: ACETAMIN/CAFFEINE/BUTALB TAB PO PRN (17:27)
[2024-06-27] MEDS: carvediloL 3.125 MG TAB PO SCH (17:28)
[2024-06-27] MEDS ORDERED: APIXABAN 2.5 MG TABLET PO SCH (21:00)
[2024-06-27] MEDS: ATORVASTATIN 80 MG TAB PO SCH (21:14)
[2024-06-27] MEDS: GABAPENTIN 100 MG CAP PO SCH (21:14)
[2024-06-27] MEDS: ROPINIROLE HCL 0.25 MG TAB PO SCH (21:14)
[2024-06-27] MEDS: DULOXETINE 30 MG CAP PO SCH (21:15)
[2024-06-28 08:48] LABS: Absolute Basophils 0.1 K/uL (0-0.5); Absolute Eosinophils 0.3 K/uL (0-0.5); Absolute Lymphocytes (CBC) 0.6 K/uL (0.7-4.9); Absolute Monocytes 0.8 K/uL (0.1-1.3); Absolute Neutrophil 9.9 K/uL (1.8-8.0); Basophils % 0.7 % (0-1.3); Eosinophils % 2.3 % (0-4.4); Hematocrit 39.9 % (36.0-45.0); Hemoglobin 12.7 g/dL (12.0-15.0); Lymphocytes % 4.8 % (15.3-44.8); MCH 28.8 pg (27.0-35.0); MCHC 31.9 g/dL (32.0-36.0); MCV 90.3 fL (80-100); MPV 6.9 fL (7.6-11.3); Monocytes % 7.2 % (3.3-12.3); Nucleated Red Blood Cells % 0.1 % (0-0); Platelets 381 thou/uL (152-406); RBC Red Blood Cell Count 4.42 M/uL (3.86-4.86); Red Cell Distribution Width 16.6 % (12.1-15.2)
[2024-06-28 09:09] LABS: Anion Gap 7.5 mEq/L (5.0-15.0); Potassium 4.5 mEq/L (3.5-5.1)
[2024-06-28] MEDS: AMIODARONE HCL 200 MG TAB PO SCH (09:58)
[2024-06-28] MEDS: FUROSEMIDE 20 MG TABLET PO SCH (09:58)
--- NOTE | 2024-06-28 10:55 | P.PN ---
Subjective Date of Service: 06/28/24 Chief Complaint: UTI Pt is resting comfortably in bed. She is getting iv merrem for ESBL E. coli. No other complaints. Review of Systems General: Unremarkable Eyes: Unremarkable ENT: Unremarkable Respiratory: Unremarkable Cardiovascular: Unremarkable Gastrointestinal: Unremarkable Genitourinary: Unremarkable Musculoskeletal: Unremarkable Integumentary: Unremarkable Neurological: Unremarkable Lymphatics: Unremarkable Physical Examination - Vital Signs Temperature: 97.3 F Blood Pressure: 126/65 Pulse: 54 Respirations: 16 Pulse Ox (%): 95 - Physical Exam General: Alert, In no apparent distress, Oriented x3 HEENT: Atraumatic, Normocephalic, PERRLA Neck: Supple, 2+ carotid pulse no bruit, JVD not distended Respiratory: Clear to auscultation bilaterally, Normal air movement Cardiovascular: No edema, Normal pulses, Regular rate/rhythm, Normal S1 S2 Capillary refill: <2 Seconds Gastrointestinal: Normal bowel sounds, Soft and benign, Non-distended Musculoskeletal: No clubbing, No swelling, No contractures Integumentary: No rashes, No breakdown, No significant lesion Neurological: Normal gait, Normal speech, Normal strength at 5/5 x4 extr, Normal tone, Sensation intact Lymphatics: No axilla or inguinal lymphadenopathy - Studies Microbiology Data (last 24 hrs): 06/26/24 17:24 Clean Catch Urine Anderson Count - Final >100,000 CFU/ML. 06/26/24 17:24 Clean Catch Urine - Final Escherichia Coli Esbl Assessment And Plan - Plan Acute cystitis with ESBL E. coli: Will continue iv merrem and follow up urine cx. Consulted social work case manager for home iv infusion of Invanz 500mg iv daily for [address] PICC line. Atrial fibrillation: Will continue telemetry, coreg, amiodarone and eliquis. Chronic diastolic heart failure: Will continue lasix, coreg, strict I/O and daily. Hold Aldactone and entresto due to elevated creatinine. AUDREY on Chronic kidney disease stage II: cr is 1.2<- 1.38 <- 1.77. Will continue IVF, avoid nephrotoxins and monitor renal function. Nephrology is following DVT ppx: Heparin Code: full
[2024-06-28 12:31] LABS: Band Neutrophils 3 % (0-1); Differential Total Cells Count 100; Lymphocytes 6 % (15-42); Segmented Neutrophils 82 % (40-80)
[2024-06-28 12:32] LABS: Eosinophils 1 % (0-3); Monocytes 6 % (0-10); Myelocytes 2 % (0-0)
[2024-06-28 12:33] LABS: Blood Morphology Comment NOT SEEN (NOT SEEN); Platelet Estimate ADEQ
--- NOTE | 2024-06-28 14:57 | PN ---
Date of Progress Note: 06/28/2024 Subjective: The patient was admitted to the hospital with multidrug resistant UTI. The patient was started on meropenem, dose adjusted yesterday. Objective: Vital Signs: Blood pressure of 117/51, pulse of 61. Chest: Clear to auscultation. Heart: S1, S2. Systolic murmur. Abdomen: Soft, nontender. Extremity: No edema. Neurologic: Alert. No focality. Laboratory Data: WBC 11.6, hemoglobin 12.7, sodium 141, potassium 4.5, bicarb 30, BUN 23, creatinine 1.2, GFR 46, calcium 9.6. Current Medications: The patient on, include: 1. Meropenem. 2. Eliquis. 3. Atorvastatin. 4. Carvedilol. 5. Gabapentin. 6. Lasix. Assessment And Plan: 1. Acute kidney injury secondary to toxic acute tubular necrosis, recovered, back close to baseline. 2. Hypertension, controlled, optimal. Continue current treatment. 3. Urinary tract infection, multidrug resistant, Escherichia coli. Continue meropenem. I will adjust the dose back given the improvement in the kidney function to every 8 hours and we will follow up the patient. Time spent examining the patient [id number], reviewing data, lab, and radiology, placing order, discussing the case with the patient, discussing the case with the steam roller operator including hospitalist and nursing staff more than 55 minutes. JEMAL Voice ID: [id number] Report ID: [id number] [id number]
[2024-06-28] MEDS: Meropenem 1,000 MG in NA CHLORIDE 0.9% 100 ML IV SCH (16:23)
[2024-06-28] MEDS: Mupirocin NASAL 2 APPL/1 GM TUBE NAS SCH (20:46)
[2024-06-28] MEDS: CARBIDOPA PO SCH (20:47)
[2024-06-28] MEDS: LEVODOPA PO SCH (20:47)
[2024-06-28 22:06] VITALS: O2SAT 94
[2024-06-29 05:53] LABS: Absolute Basophils 0.1 K/uL (0-0.5); Absolute Eosinophils 0.3 K/uL (0-0.5); Absolute Lymphocytes (CBC) 0.9 K/uL (0.7-4.9); Absolute Monocytes 0.8 K/uL (0.1-1.3); Absolute Neutrophil 8.5 K/uL (1.8-8.0); Basophils % 0.8 % (0-1.3); Eosinophils % 2.8 % (0-4.4); Hematocrit 38.4 % (36.0-45.0); Hemoglobin 12.1 g/dL (12.0-15.0); Lymphocytes % 8.4 % (15.3-44.8); MCH 28.5 pg (27.0-35.0); MCHC 31.4 g/dL (32.0-36.0); MCV 90.5 fL (80-100); MPV 7.1 fL (7.6-11.3); Monocytes % 7.9 % (3.3-12.3); Neutrophils % 80.1 % (41.7-73.7); Platelets 360 thou/uL (152-406); RBC Red Blood Cell Count 4.24 M/uL (3.86-4.86); Red Cell Distribution Width 16.8 % (12.1-15.2)
--- NOTE | 2024-06-29 12:52 | P.DS ---
Admission Date: 06/27/24 Discharge Date: 06/29/24 Disposition: ROUTINE DISCHARGE Discharge Condition: GOOD Reason for Admission: UTI Brief History of Present Illness: 78-year-old woman with a history of atrial fibrillation, giant cell arteritis, history of recurrent UTI was referred to the emergency department by her automatic fabric cutter Dr. Lynn due to her urine culture growing ESBL bacteria. Patient has a history of recurrent ESBL E. coli UTI. She currently denies any dysuria or increased urinary frequency. She denies any fever, she denies any nausea or vomiting. At baseline patient is ambulatory with a walker. UA done in the em ergency department suggest UTI, patient has mild leukocytosis but does not meet criteria for sepsis. She is hospitalized for IV meropenem. Hospital Course: Pt is a 78yo female with past medical history of atrial fibrillation, giant cell arteritis, and recurrent UTI who was sent to the ER by her automatic fabric cutter, Dr. Lynn, due to her urine culture growing ESBL bacteria. On admission, pt denied any dysuria, fever, nausea, vomiting or increased urinary frequency. Lab studies sin the ER suggest UTI and mild leukocytosis. We admitted pt and gave iv merrem. IV meropenem. AUDREY resolved with IVF and we continued home meds for other chronic medical problems. Pt was later discharged with Invanz 500mg iv daily for 12 more day. The nurse outreach case manager helped to set up home iv antibiotics infusion. Pt was in NAD prior to discharge. Vital Signs/Physical Exam: Temp Pulse Resp BP Pulse Ox 98.4 F 71 12 136/53 L 96 06/29/24 08:00 06/29/24 08:00 06/29/24 08:00 06/29/24 08:00 06/29/24 08:00 Laboratory Data at Discharge: WBC 10.60 thou/uL (4.3-10.9) 06/29/24 05:45 Hgb 12.1 g/dL (12.0-15.0) 06/29/24 05:45 Hct 38.4 % (36.0-45.0) 06/29/24 05:45 Plt Count 360 thou/uL (152-406) 06/29/24 05:45 Sodium 140 mEq/L (136-145) 06/29/24 05:45 Potassium 5.0 mEq/L (3.5-5.1) 06/29/24 05:45 BUN 26 mg/dL (7-18) H 06/29/24 05:45 Creatinine 1.31 mg/dL (0.55-1.02) H 06/29/24 05:45 Glucose 131 mg/dL (74-106) H 06/29/24 05:45 Phosphorus 2.6 mg/dL (2.5-4.9) 06/27/24 04:16 Magnesium 1.9 mg/dL (1.6-2.4) 06/27/24 04:16 Home Medications: Duloxetine [Cymbalta *] 60 mg PO BID 01/20/18 Omeprazole 40 mg PO DAILY 01/20/18 Spironolactone 1 tab PO DAILY 06/06/23 Amiodarone HCl [Cordarone*] 200 mg PO DAILY 10/22/23 Apixaban [Eliquis *] 5 mg PO BID 10/22/23 Atorvastatin Calcium [Lipitor] 80 mg PO BEDTIME 10/22/23 Bethanechol Chloride 10 mg PO TID 10/22/23 Gabapentin [Neurontin*] 100 mg PO BID 10/22/23 carvediloL [Coreg*] 3.125 mg PO BID 10/22/23 Melatonin 10 mg PO BEDTIME PRN PRN 11/03/23 Ropinirole HCl [Requip*] 0.5 mg PO BEDTIME tab 11/03/23 Docusate [Colace Cap*] 100 mg PO BID 11/04/23 Lactobacillus Acidophilus [Acidophilus Lactobacilli] 1 cap PO BID 11/04/23 Potassium Chloride [Klor-Con] 20 meq PO DAILY 10 Days #10 packet 04/08/24 Acetam/Caff/Butal [Fioricet*] 1 tab PO Q4H PRN 06/28/24 Carbidopa/Levodopa [Carbidopa-Levodopa 25-100 Tab] 1 tab PO TID 06/28/24 Furosemide [Lasix] 40 mg PO DAILY 06/28/24 Metformin ER [Glucophage ER*] 500 mg PO DAILY 06/28/24 Sacubitril/Valsartan [Entresto 97 mg-103 mg Tablet] 1 each PO BID 06/28/24 Physician Discharge Instructions: Continue ad barbara activity as tolerated. Take Invanz 500mg iv daily for 12 more days. Follow up with PCP within 1 - 2 weeks. Followup: Lydia Galvin MD [Primary Care Provider] -
[2024-06-29] MEDS ORDERED: ERTAPENEM SODIUM 1 GM VIAL IVPB ONE (13:00)
[2024-06-29] MEDS ORDERED: ERTAPENEM NA 1 GM in NA CHLORIDE 0.9% 100 ML IVPB ONE (14:00)
[2024-06-29] MEDS: ERTAPENEM NA 0.5 GM in NA CHLORIDE 0.9% 100 ML IVPB SCH (14:21)
[2024-06-29 16:56] VITALS: BP 110/39; TEMP 98.5
[2024-06-29] MEDS ORDERED: Meropenem 1,000 MG in NA CHLORIDE 0.9% 100 ML IV SCH (21:00)
--- NOTE | 2024-06-30 | PN ---
Date of Progress Note: 06/29/2024 Chief Complaint: Acute on chronic kidney injury, multi-drug resistant urinary tract infection. History Of Present Illness: The patient was admitted to the hospital when she was found to have mult i-drug resistant E coli urinary tract infection. She has history of urosepsis and she was admitted t o the hospital for IV antibiotics. She was started on meropenem. Review of Systems: Denies chest pain, palpitations. Physical Examination: Lungs: Clear to auscultation bilaterally. Heart: S1, S2. Abdomen: Soft, benign. Extremities: Minimal edema. Impression And Plan: Acute on chronic kidney injury. The patient was found to have acute tubular ne crosis. Renal function is gradually improving. The patient has adequate p.o. intake. There is adeq uate urine output. The patient has nonoliguric urine output and renal function is stabilizing. The patient is on antibiotics. Continue meropenem. The patient was found to have multidrug resistant E coli infection, previous history of urosepsis. Currently, the patient does not have fever and blood pressure is in good control. Continue blood pressure medication. Avoid nonsteroidal anti-inflammato ry medication. EB/MODL Voice ID: [id number] Report ID: [id number]
== END 2024-06-29 17:18 | disposition home health service (06) | DRG 689 ==
LOC: ER 16:37 → ERHOLD 18:55 → 2ND 20:42 → OBSVTOIN 06-27 16:49
PROVIDERS: ADMIT Internal Medicine; ATTEND Hospitalist
PROC: 02HV33Z Insertion of Infusion Device into Superior Vena Cava, Percutaneous Approach (ICD-10-PCS; principal; 2024-06-27)
DX: N30.00 Acute cystitis without hematuria (principal); N17.0 Acute kidney failure with tubular necrosis; Z16.20 Resistance to unspecified antibiotic; I50.32 Chronic diastolic (congestive) heart failure; Z16.12 Extended spectrum beta lactamase (ESBL) resistance; I13.0 Hypertensive heart and chronic kidney disease with heart failure and stage 1 through stage 4 chronic kidney disease, or unspecified chronic kidney disease; Z16.24 Resistance to multiple antibiotics; N18.32 Chronic kidney disease, stage 3b; E11.22 Type 2 diabetes mellitus with diabetic chronic kidney disease; E11.40 Type 2 diabetes mellitus with diabetic neuropathy, unspecified; I48.91 Unspecified atrial fibrillation; M79.7 Fibromyalgia; E66.9 Obesity, unspecified; I25.10 Atherosclerotic heart disease of native coronary artery without angina pectoris; B96.20 Unspecified Escherichia coli [E. coli] as the cause of diseases classified elsewhere; Z95.1 Presence of aortocoronary bypass graft; Z95.0 Presence of cardiac pacemaker; Z60.2 Problems related to living alone; Z68.39 Body mass index [BMI] 39.0-39.9, adult; Z79.01 Long term (current) use of anticoagulants; Z91.013 Allergy to seafood; Z91.014 Allergy to mammalian meats; Z96.651 Presence of right artificial knee joint; Z79.899 Other long term (current) drug therapy; Z90.710 Acquired absence of both cervix and uterus
CPT/HCPCS: 36415; 80048; 81001; 82947; 83735; 84100; 85025; 87077; 87086; 87088; 87186; 96365; 99285; G0378; J1335; J2185

== ENCOUNTER 2024-09-21 10:51 | Emergency (ER) | payer OTHER ==
[2024-09-21] MEDS ORDERED: MORPHINE 4 MG/ML SYR ONE (11:17)
--- NOTE | 2024-09-21 11:24 | RAD REPORT ---
EXAMINATION: ONE VIEW CHEST XR CLINICAL INDICATION: COUGH TECHNIQUE: Frontal chest projection is submitted. Examination is limited by patient positioning and t echnique. COMPARISON: 04/07/2024 FINDINGS: Moderate bilateral pulmonary opacities are present, appearing progressive since the 04/07/2024 study. T he heart is moderately enlarged. Multilead pacer/defibrillator device. Sternotomy wires present. IMPRESSION: Moderate CHF versus volume overload.
[2024-09-21 11:30] LABS: Absolute Lymphocytes (CBC) 0.5 K/uL (0.7-4.9); Absolute Monocytes 0.7 K/uL (0.1-1.3); Absolute Neutrophil 7.8 K/uL (1.8-8.0); Basophils % 0.3 % (0-1.3); Hematocrit 40.4 % (36.0-45.0); Hemoglobin 12.8 g/dL (12.0-15.0); Lymphocytes % 5.2 % (15.3-44.8); MCH 28.7 pg (27.0-35.0); MCHC 31.6 g/dL (32.0-36.0); MCV 90.9 fL (80-100); MPV 7.3 fL (7.6-11.3); Neutrophils % 86.5 % (41.7-73.7); Nucleated Red Blood Cells % 0.2 % (0-0); Platelets 229 thou/uL (152-406); RBC Red Blood Cell Count 4.45 M/uL (3.86-4.86); Red Cell Distribution Width 16.2 % (12.1-15.2)
[2024-09-21] MEDS ORDERED: ACETAMINOPHEN 500 MG TAB ONE (11:30)
[2024-09-21 11:50] LABS: Albumin 2.7 g/dL (3.4-5.0); Albumin/Globulin Ratio 0.7 (1.1-1.8); Anion Gap 12.1 mEq/L (5.0-15.0); Bilirubin Total 0.5 mg/dL (0.2-1.0); Globulin 3.7 g/dL (2.3-3.5); Potassium 4.1 mEq/L (3.5-5.1); Protein, Total 6.4 g/dL (6.4-8.2)
[2024-09-21 11:52] LABS: SARS-CoV-2 Antigen CONTROL BLUE LINE VIS/BG OK; SARS-CoV-2 Antigen Rapid Res Negative (Negative)
--- NOTE | 2024-09-21 12:15 | RAD REPORT ---
EXAMINATION: CT ABDOMEN AND PELVIS WITHOUT CONTRAST CLINICAL INDICATION: ABD PAIN TECHNIQUE: CT abdomen and pelvis was performed, without IV contrast, as per department protocol. Axia l, sagittal and coronal reconstructions were obtained. One or more of the following dose reduction techniques were used: Automated exposure control, adjustment of the mA and kV according to the patien t size, and iterative reconstruction. Unless otherwise specified, incidental findings do not require dedicated imaging follow-up. COMPARISON: 09/21/2024 FINDINGS: The lack of intravenous contrast limits the sensitivity of this exam for evaluation of solid visceral organs, vascular structures, and retroperitoneum. LOWER CHEST: Mild bibasilar lung opacities are present. The heart is enlarged with pacer wires noted. Trace bilateral pleural effusions. LIVER:Normal in size and contour. No focal lesion. Cholecystectomy clips. SPLEEN: Normal size. No focal lesion. PANCREAS: No mass, ductal dilation, or qing-pancreatic fluid. There is possibly 8 mm stone distal com mon duct. ADRENALS: Normal; no mass. KIDNEYS AND URETERS: Normal size and contour. No hydronephrosis. 25 mm cyst inferior anterior right k idney. URINARY BLADDER: Normal contour. GASTROINTESTINAL TRACT: No evidence of bowel obstruction, significant free fluid, free air or abscess . There is mild diverticulosis coli of the sigmoid colon without diverticulitis. APPENDIX: Normal appendix. LYMPH NODES: No lymphadenopathy. MUSCULOSKELETAL: No acute or suspicious osseous abnormality. ADDITIONAL FINDINGS: None. IMPRESSION: Possible 8 mm stone in the distal common bile duct. MRCP recommended for further workup.
[2024-09-21] MEDS ORDERED: OSELTAMIVIR 75 MG CAP PO ONE (12:21)
[2024-09-21] MEDS ORDERED: NA CHLORIDE 0.9% 250 ML ONE (12:21)
[2024-09-21 12:26] LABS: White Blood Cell Scan OK (OK)
[2024-09-21 12:27] LABS: Anisocytosis SLIGHT; Blood Morphology Comment NOTED (NOT SEEN); Microcytosis SLIGHT; Platelet Estimate ADEQ
[2024-09-21 12:33] LABS: Specific Gravity 1.015 (1.005-1.030); Sqamous Epithelial <5 /HPF (None Seen); Urine Bacteria 20-50 /HPF (<20); Urine Bilirubin NEGATIVE (Negative); Urine Blood 2+ (Negative); Urine Clarity Extremely Turbid (Clear); Urine Color Yellow (Yellow); Urine Culture Reflex Order REFLEXED; Urine Glucose NEGATIVE (Negative); Urine Ketones NEGATIVE (Negative); Urine Micro Reflex YN NO BILL MICROSCOPIC; Urine Mucus Slight /HPF (None Seen); Urine Nitrite NEGATIVE (Negative); Urine Protein 3+ (Negative); Urine Urobilinogen 1+ (Normal); Urine WBC >50 /HPF (<5); Urine WBC Clump Moderate /HPF (None Seen); Urine pH 7.5 (5.0-7.0)
[2024-09-21] MEDS ORDERED: CEFTRIAXONE 1000 MG/VIAL ONE (12:54)
[2024-09-21] MEDS ORDERED: NA CHLORIDE 0.9% 500 ML ONE (15:41)
--- NOTE | 2024-09-21 16:27 | ER ---
Nurse's Notes [facility] Name: Jelly Garcia Age: 79 yrs Sex: Female : 1945 Arrival Date: 09/21/2024 Time: 10:51 Bed 7 Private MD: Diagnosis: Sepsis, unspecified organism;UTI/ Urinary tract infection, site not specified;Influenza due to identified novel influenza A virus;Possible Choledocholithiasis;Elevated Lipase Presentation: 09/21 10:53 Chief complaint: Chief complaint: Patient states: cough, decreased appetite, and mid aa5 abdominal pain that began 09/16. 10:53 Acuity: BRIAN 2 aa5 10:53 Coronavirus screen: cough unrelated to allergies. Ebola Screen: Patient denies travel aa5 to an Ebola-affected area in the 21 days before illness onset. Initial Sepsis Screen: Does the patient meet any 2 criteria? RR > 20 per min. Does the patient have a suspected source of infection?. Risk Assessment: Do you want to hurt yourself or someone else? Patient reports no desire to harm self or others. Onset of symptoms was September 16, 2024. 10:53 Method Of Arrival: EMS: [facility] aa5 10:53 Care prior to arrival: Medication(s) given: Toradol 15 mg IVP IV initiated. Glucose aa5 check: 110. 10:53 Care prior to arrival: Medication(s) given: Normal saline infusion, 100mls NS bolus. aa5 Historical: - Allergies: 10:53 Pork/Porcine Containing Products; aa5 10:53 shellfish derived; aa5 - Home Meds: 11:49 pantoprazole oral [Active]; Amiodarone Oral [Active]; Movantik oral [Active]; aa5 dapagliflozin propanediol oral [Active]; 13:22 Eliquis oral [Active]; aa5 - PMHx: 10:53 Atrial Fib; Diabetes - NIDDM; Fibromyalgia; Hypertension; Temporal Arteritis; CHF aa5 (Unknown); Hypercholesterolemia; Diabetes mellitus; 11:49 GERD; aa5 13:22 Pacemaker/Defibrillator; aa5 - PSHx: 10:53 right knee surgery; aa5 13:22 Pacemaker/defibrillator; aa5 - Immunization history:: Adult Immunizations unknown. - Infectious Disease History:: Denies. Screenin:00 [facility] ED Fall Risk Assessment (Adult) History of falling in the last 3 months, aa5 including since admission No falls in past 3 months (0 pts) Confusion or Disorientation No (0 pts) Intoxicated or Sedated No (0 pts) Impaired Gait Yes (1 pt) Mobility Assist Device Used Yes (1 pt) Altered Elimination Yes (1 pt) Score/Fall Risk Level 3 or more points = High Risk Oriented to surroundings, Maintained a safe environment, Educated pt \T\ family on fall prevention, incl call for assistance when getting out of bed. Abuse screen: Denies threats or abuse. Nutritional screening: No deficits noted. Tuberculosis screening: No symptoms or risk factors identified. Assessment: 10:53 General: Appears uncomfortable, Behavior is calm, cooperative. Pain: Complains of pain aa5 in mid abdomen Pain currently is 8 out of 10 on a pain scale. Quality of pain is described as aching, Is intermittent, Aggravated by cough. Neuro: Level of Consciousness is awake, alert, obeys commands, Oriented to person, place, time, situation. Cardiovascular: Patient's skin is warm and dry. Respiratory: Reports cough that is productive, Airway is patent Respiratory effort is even, unlabored, Respiratory pattern is regular, symmetrical, tachypnea. GI: Abdomen is round Bowel sounds present X 4 quads. Abd is soft and non tender X 4 quads. Patient currently denies diarrhea, nausea, vomiting. : No signs and/or symptoms were reported regarding the genitourinary system. EENT: No signs and/or symptoms were reported regarding the EENT system. Derm: Skin is pink, warm \T\ dry. Musculoskeletal: Range of motion: intact in all extremities, Pt reports she walks occasionally using walker. 11:25 Reassessment: Patient is alert, oriented x 3, equal unlabored respirations, skin aa5 warm/dry/pink. 11:47 Reassessment: Pt to CT via stretcher . aa5 12:10 Reassessment: Pt cleaned of urinary incontinence, clean brief applied. . aa5 13:30 Reassessment: Patient is alert, oriented x 3, equal unlabored respirations, skin aa5 warm/dry/pink. 13:56 Reassessment: Pt placed on purewick as requested. Family remains at bedside. hb 14:05 Reassessment: Patient is alert, oriented x 3, equal unlabored respirations, skin aa5 warm/dry/pink. 15:00 Reassessment: Patient is alert, oriented x 3, equal unlabored respirations, skin aa5 warm/dry/pink. 15:02 Reassessment: US at bedside . aa5 15:30 Reassessment: Patient is alert, oriented x 3, equal unlabored respirations, skin aa5 warm/dry/pink. 16:19 Reassessment: Patient is alert, oriented x 3, equal unlabored respirations, skin aa5 warm/dry/pink. 17:05 Reassessment: Patient is alert, oriented x 3, equal unlabored respirations, skin aa5 warm/dry/pink. 17:08 Reassessment: Attempted to call report to [facility] Jennifer, nurse unavailable to take aa5 report at this time. 17:35 Reassessment: Report was given to Tracy at [facility] . aa5 17:50 Reassessment: Patient is alert, oriented x 3, equal unlabored respirations, skin aa5 warm/dry/pink. Vital Signs: 10:53 BP 113 / 53; Pulse 72; Resp 28 S; Temp 99.8(O); Pulse Ox 89% on R/A; Weight 80.74 kg aa5 (M); Height 4 ft. 11 in. (R); 10:55 Pulse Ox 94% on 3 lpm NC; aa5 11:27 Temp 100.8(O); aa5 12:15 BP 108 / 64; Pulse 71; Resp 22 S; Temp 98.6(O); Pulse Ox 92% on 4 lpm NC; aa5 12:46 BP 122 / 71; Pulse 65; ec2 13:30 BP 111 / 66; Pulse 71; Resp 20 S; Pulse Ox 92% on 4 lpm NC; aa5 14:05 BP 106 / 49; Pulse 70; Resp 20 S; Pulse Ox 92% on 4 lpm NC; aa5 15:00 BP 93 / 55; Pulse 73; Resp 18 S; Pulse Ox 95% on 4 lpm NC; aa5 15:30 BP 92 / 51; Pulse 62; Resp 18 S; Pulse Ox 98% on 4 lpm NC; aa5 16:13 BP 110 / 63; ec2 16:19 BP 110 / 63; Pulse 60; Resp 18 S; Pulse Ox 98% on 4 lpm NC; aa5 17:09 BP 105 / 59; Pulse 62; Resp 16 S; Pulse Ox 98% on 4 lpm NC; aa5 10:53 Body Mass Index 35.95 (80.74 kg, 149.86 cm) aa5 11:27 MD notified of increased temperature aa5 ED Course: 10:53 Patient arrived in ED. ec2 10:53 Pilo Gracia MD is Attending Physician. ec2 10:53 Arm band placed on Patient placed in an exam room, on a stretcher. aa5 10:53 Patient has correct armband on for positive identification. Placed in gown. Bed in low aa5 position. Call light in reach. Side rails up X2. Client placed on continuous cardiac and pulse oximetry monitoring. NIBP monitoring applied. industrial health engineer on. Pulse ox on. NIBP on. 11:00 Maintain EMS IV. Dressing intact. Site clean \T\ dry. Gauge \T\ site: 20 G to R AC. aa 5 11:04 Nydia Foster, RN is Primary Nurse. aa5 11:04 Triage completed. aa5 11:12 CXR XRAY In Process Unspecified. EDMS 11:24 SARS RAPID Sent. em1 11:25 Influenza Screen (a \T\ B) Sent. em1 11:25 CMP Sent. em1 11:25 CBC with Diff Sent. em1 11:25 Initial lab(s) drawn, by me, sent to lab. COVID swab sent to lab. Flu and/or RSV swab em1 sent to lab. 11:55 CT Abd/Pelvis - Without Contrast In Process Unspecified. EDMS 12:10 Straight cath inserted, using sterile technique, 14 Fr. Specimen obtained. sent to lab aa5 Returned cloudy urine. Patient tolerated well. 12:35 EKG done, by ED staff, reviewed by Pilo Gracia MD. aa5 12:42 First set of blood cultures drawn Lactate drawn and sent to lab. aa5 12:50 Inserted saline lock: 20 gauge in right hand, using aseptic technique. aa5 12:55 Second set of blood cultures drawn by me. aa5 15:10 US Abdomen Limited In Process Unspecified. EDMS 16:26 initiated a transfer with Will from the [facility] transfer center. eb 16:50 connected the hospitalist content development manager for [facility] with Dr. Gracia for patient eb transfer consultation. 16:52 administrative approval given by Tyrone Sullivan/ patient has been accepted to [facility] room 1149/ Dr. Herbert Marie has accepted the patient in transfer/ report to be called to [phone]. 17:50 No provider procedures requiring assistance completed. Patient transferred, IV remains aa5 in place. Administered Medications: 11:25 Drug: morphine IVP or IV 4 mg IVP once over 4 mins Route: IVP; Infused Over: 4 mins; aa5 Site: right antecubital; 11:30 Follow up: Response: No adverse reaction aa5 11:36 Drug: Acetaminophen PO 1000 mg PO once Route: PO; aa5 12:15 Follow up: Response: No adverse reaction; Temperature is decreased aa5 12:24 Drug: Oseltamivir PO 75 mg PO once Route: PO; aa5 12:51 Follow up: Response: No adverse reaction aa5 12:24 Drug: NS 0.9% IV 250 ml IV at bolus once; to be given as a bolus over 30 minutes Route: aa5 IV; Rate: bolus; Site: right antecubital; 12:54 Follow up: IV Status: Completed infusion; IV Intake: 250ml aa5 13:01 Drug: Rocephin IV 1 grams IV at bolus once; Given slow IV push per pharmacy aa5 instructions Route: IV; Rate: bolus; Site: right hand; 13:05 Follow up: Response: No adverse reaction; IV Status: Completed infusion aa5 15:45 Drug: NS 0.9% IV 500 ml IV at bolus once; to be given as a bolus over 30 minutes Route: ko1 IV; Rate: bolus; Site: right antecubital; 16:15 Follow up: IV Status: Completed infusion; IV Intake: 500ml aa5 Medication: 11:40 VIS not applicable for this client. aa5 Intake: 12:54 IV: 250ml; Total: 250ml. aa5 16:15 IV: 500ml; Total: 750ml. aa5 Outcome: 16:27 ER care complete, transfer ordered by ec2 17:50 Transferred to [facility], Transfer form completed. X-rays sent aa5 w/ patient. Note: Report given to [facility] 17:50 Condition: stable 17:50 Instructed on the need for transfer, Demonstrated understanding of instructions, 17:55 Patient left the ED. aa5 Addendum: 09/26/2024 08:48 Addendum: Culture Results: Positive urine culture. Phone call Attempt #1 pt transferred i w to [facility], report faxed to [phone]. Signatures: Dispatcher [employer] Ladonna Blake RN RN iw Martinez, Eric em1 Nydia Foster RN RN aa5 Tracy Mathur RN RN hb Botello, Elizabeth eb Oliver, Kathy, RN RN ko1 Pilo Gracia MD MD ec2 Corrections: (The following items were deleted from the chart) 09/21 11:39 10:53 Chief complaint: aa5 aa5 11:54 11:49 Home Meds: amiodarone 200 mg Oral tablet; aa5 aa5 17:30 17:09 BP 105 / 59; Pulse 62bpm; Resp 16bpm; Spontaneous; Pulse Ox 100% RA; aa5 aa5 18:02 18:02 Patient left the ED. aa5 aa5 19:17 11:00 Maintain EMS IV. Dressing intact. Site clean \T\ dry. Gauge \T\ site: 20G to R FA . aa 5 aa5 19:19 12:15 Pulse 71bpm; Resp 22bpm; Spontaneous; Pulse Ox 92% 4 lpm Nasal Cannula; Temp aa5 98.6F Oral; aa5
--- NOTE | 2024-09-21 16:27 | EDPHYS ---
Physician Documentation [facility] Name: Jelly Garcia Age: 79 yrs Sex: Female : 1945 Arrival Date: 09/21/2024 Time: 10:51 Bed 7 Private MD: ED Physician Pilo Gracia HPI: 09/21 10:55 This 79 yrs old Female presents to ER via Unassigned with complaints of uri ec2 s/s, abd pain. 10:55 Patient arrives today for evaluation of cough and cold symptoms along with abdominal ec2 pain. Patient reports has been having symptoms for several days, states history of CHF, hyperlipidemia, hypertension. Patient reports she been having a productive sputum, generalized abdominal pain as well. No fevers or chills. Does report recent diarrhea that has since resolved.. Historical: - Allergies: 10:53 Pork/Porcine Containing Products; aa5 10:53 shellfish derived; aa5 - Home Meds: 11:49 pantoprazole oral [Active]; Amiodarone Oral [Active]; Movantik oral [Active]; aa5 dapagliflozin propanediol oral [Active]; 13:22 Eliquis oral [Active]; aa5 - PMHx: 10:53 Atrial Fib; Diabetes - NIDDM; Fibromyalgia; Hypertension; Temporal Arteritis; CHF aa5 (Unknown); Hypercholesterolemia; Diabetes mellitus; 11:49 GERD; aa5 13:22 Pacemaker/Defibrillator; aa5 - PSHx: 10:53 right knee surgery; aa5 13:22 Pacemaker/defibrillator; aa5 - Immunization history:: Adult Immunizations unknown. - Infectious Disease History:: Denies. ROS: 10:55 Constitutional: as per hpi ec2 Exam: 10:55 Constitutional: GEN: NAD Head: atraumatic Eyes: EOMI Ears: External ears are ec2 normal. CV: regular rate LUNGS: no respiratory distress ABD: non-distended, obese body habitus, generalized abdominal TTP without guarding or rigidity. SKIN: no evidence of rashes MSK: no evidence of trauma Vital Signs: 10:53 BP 113 / 53; Pulse 72; Resp 28 S; Temp 99.8(O); Pulse Ox 89% on R/A; Weight 80.74 kg aa5 (M); Height 4 ft. 11 in. (R); 10:55 Pulse Ox 94% on 3 lpm NC; aa5 11:27 Temp 100.8(O); aa5 12:15 BP 108 / 64; Pulse 71; Resp 22 S; Temp 98.6(O); Pulse Ox 92% on 4 lpm NC; aa5 12:46 BP 122 / 71; Pulse 65; ec2 13:30 BP 111 / 66; Pulse 71; Resp 20 S; Pulse Ox 92% on 4 lpm NC; aa5 14:05 BP 106 / 49; Pulse 70; Resp 20 S; Pulse Ox 92% on 4 lpm NC; aa5 15:00 BP 93 / 55; Pulse 73; Resp 18 S; Pulse Ox 95% on 4 lpm NC; aa5 15:30 BP 92 / 51; Pulse 62; Resp 18 S; Pulse Ox 98% on 4 lpm NC; aa5 16:13 BP 110 / 63; ec2 16:19 BP 110 / 63; Pulse 60; Resp 18 S; Pulse Ox 98% on 4 lpm NC; aa5 17:09 BP 105 / 59; Pulse 62; Resp 16 S; Pulse Ox 98% on 4 lpm NC; aa5 10:53 Body Mass Index 35.95 (80.74 kg, 149.86 cm) aa5 11:27 MD notified of increased temperature aa5 MDM: 10:53 Medical Screening Exam initiated ec2 10:55 Data reviewed: vital signs, nurses notes. ED course: Patient arrives today for upper ec2 respiratory symptoms as well as abdominal pain. Examination remarkable for morbidly obese individual with abdominal tenderness. Will obtain lab work, CT imaging, urine studies.. 11:58 ED course: CBC nonactionable, metabolic profile shows renal dysfunction, AUDREY with a ec2 creatinine 2.2, most recent creatinine at 1.7. Patient is flu a positive. Will give the patient a small fluid bolus given the patient has history of CHF and has a component of volume overload on her chest x-ray. Will see the patient Tamiflu given the patient's age and sickness.. 12:07 ED course: Patient with some hypoxia with saturations in the upper 80s, patient ec2 subsequently placed on oxygen.. 12:23 ED course: Given history of CHF will give small crystalloid bolus.. ec2 12:45 ED course: EKG independently reviewed and interpreted by me, shows atrially paced ec2 rhythm at a rate of 69 with PVCs noted. EKG is nonactionable.. 14:27 ED course: CT imaging shows possible CBD stone, unable to an MRI given the patient's ec2 defibrillator, and patient will be unmonitor for the placement MRI mode. Patient without any right upper quadrant TTP specifically, will add on lipase and obtain ultrasound for further elucidation of this. Patient does have a history of a cholecystectomy. 16:18 ED course: Poor visualization of the distal CBD, will transfer for MR capable facility ec2 in GI capable facility.. 16:27 ED course: Discussed with patient and family member and they would like to be ec2 transferred to [facility] a possible, will attempt to facilitate transfer there.. 16:51 ED course: Discussed the case with hospitalist at [facility] who agrees except the ec2 patient for transfer. Family updated guarded plan of care and agreeable.. 12 10:54 Order name: CBC with Diff; Complete Time: 12:33 ec2 09/21 10:54 Order name: CMP; Complete Time: 11:56 ec2 09/21 10:54 Order name: Influenza Screen (a \T\ B); Complete Time: 11:56 ec2 09/21 10:54 Order name: SARS RAPID; Complete Time: 11:56 ec2 09/21 10:54 Order name: UAM; Complete Time: 12:46 ec2 09/21 11:24 Order name: BNP; Complete Time: 12:33 ec2 09/21 11:36 Order name: CBC Smear Scan; Complete Time: 12:33 EDMS 09/21 12:22 Order name: Lactate w/ 2H reflex if indic.; Complete Time: 13:13 ec2 09/21 12:22 Order name: Blood Culture Adult (2) ec2 09/21 12:39 Order name: Urine Culture EDMS 09/21 14:20 Order name: Lipase; Complete Time: 15:07 ec2 09/21 10:54 Order name: CXR XRAY; Complete Time: 11:28 ec2 09/21 10:54 Order name: CT Abd/Pelvis - Without Contrast; Complete Time: 12:17 ec2 09/21 14:20 Order name: US Abdomen Limited; Complete Time: 16:44 ec2 09/21 10:54 Order name: IV; Complete Time: 11:13 ec2 09/21 10:54 Order name: Cath; Complete Time: 12:56 ec2 09/21 12:22 Order name: EKG - Nurse/Tech; Complete Time: 12:50 ec2 Administered Medications: 11:25 Drug: morphine IVP or IV 4 mg IVP once over 4 mins Route: IVP; Infused Over: 4 mins; aa5 Site: right antecubital; 11:30 Follow up: Response: No adverse reaction aa5 11:36 Drug: Acetaminophen PO 1000 mg PO once Route: PO; aa5 12:15 Follow up: Response: No adverse reaction; Temperature is decreased aa5 12:24 Drug: Oseltamivir PO 75 mg PO once Route: PO; aa5 12:51 Follow up: Response: No adverse reaction aa5 12:24 Drug: NS 0.9% IV 250 ml IV at bolus once; to be given as a bolus over 30 minutes Route: aa5 IV; Rate: bolus; Site: right antecubital; 12:54 Follow up: IV Status: Completed infusion; IV Intake: 250ml aa5 13:01 Drug: Rocephin IV 1 grams IV at bolus once; Given slow IV push per pharmacy aa5 instructions Route: IV; Rate: bolus; Site: right hand; 13:05 Follow up: Response: No adverse reaction; IV Status: Completed infusion aa5 15:45 Drug: NS 0.9% IV 500 ml IV at bolus once; to be given as a bolus over 30 minutes Route: ko1 IV; Rate: bolus; Site: right antecubital; 16:15 Follow up: IV Status: Completed infusion; IV Intake: 500ml aa5 Disposition Summary: 09/21/24 16:27 Transfer Ordered Notes: Transfer Location: [facility] ec2 Reason: Higher level of care ec2 Condition: Stable ec2 Problem: new ec2 Symptoms: have improved ec2 Accepting Physician: transferring maude(09/21/24 18:02) aa5 Diagnosis - Sepsis, unspecified organism ec2 - UTI/ Urinary tract infection, site not specified ec2 - Influenza due to identified novel influenza A virus ec2 - Possible Choledocholithiasis ec2 - Elevated Lipase ec2 Forms: - Medication Reconciliation Form ec2 - SBAR form ec2 Critical care time excluding procedures: 16:51 Critical care time: Bedside Care: 30 minutes, Consultation: 5 minutes. Total time: 35 ec2 minutes Signatures: Dispatcher [employer] EDNydia Choi RN RN aa5 Thalia Marie RN RN ko1 Pilo Gracia MD MD ec2 Corrections: (The following items were deleted from the chart) 11:24 11:24 PROBNP+C.LAB.BRZ ordered. EDMS EDMS 11:54 11:49 Home Meds: amiodarone 200 mg Oral tablet; aa5 aa5 14:44 12:21 Cholangiogram ordered. EDMS EDMS 18:02 16:27 transferring doc ec2 aa5
--- NOTE | 2024-09-21 16:37 | RAD REPORT ---
EXAMINATION: US Abdomen Exam Limited CLINICAL HISTORY: [facility] MAIN N eval for cbd abnl Bed Name: 7 COMPARISON: CT abdomen and pelvis of the same day TECHNIQUE: Limited upper abdominal grayscale and color flow sonographic images. FINDINGS: Gallbladder: Surgically removed. Bile ducts: No intrahepatic or extrahepatic biliary dilatation. Common bile duct measures 9 mm, wit hin expected range for postcholecystectomy status. No echogenic calculus visualized, although the distal CBD can be obscured by overshadowing bowel gas. Liver: Visualized portions of the liver demonstrate normal echogenicity with no suspicious findings. Fluid: No ascites. IMPRESSION: Status post cholecystectomy. No evidence of choledocholithiasis. There is persistent concern for a co mmon duct calculus, additional evaluation by ERCP may be necessary.
[2024-09-21 18:29] VITALS: TEMP 98.6
[2024-09-21 18:35] VITALS: O2SAT 98
[2024-09-21 18:38] VITALS: BP 105/59
--- NOTE | 2024-09-24 11:10 | EKG ---
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
== END 2024-09-21 18:02 | disposition short-term general hospital (02) ==
LOC: ER 10:51
DX: N39.0 Urinary tract infection, site not specified (principal); J09.X2 Influenza due to identified novel influenza A virus with other respiratory manifestations; A41.9 Sepsis, unspecified organism; R10.9 Unspecified abdominal pain; I10 Essential (primary) hypertension; E78.5 Hyperlipidemia, unspecified; I50.9 Heart failure, unspecified; I48.11 Longstanding persistent atrial fibrillation; R74.8 Abnormal levels of other serum enzymes; Z11.52 Encounter for screening for COVID-19
CPT/HCPCS: 93005; 87040 ×2; 87088; 85025; 81001; 87086; 36415; 83605; 87077; 87186; 83690; 80053; 83880; 87804 ×2; 74176; 71045; 76705; 51702; 99285; 87811; J7050; J7040; J0696

== ENCOUNTER 2025-01-12 10:08 | Emergency (ER) | payer OTHER ==
[2025-01-12] MEDS ORDERED: NA CHLORIDE 0.9% 1,000 ML ONE (11:28)
[2025-01-12 11:44] LABS: Absolute Basophils 0.1 K/uL (0-0.5); Absolute Eosinophils 0.2 K/uL (0-0.5); Absolute Lymphocytes (CBC) 1.1 K/uL (0.7-4.9); Absolute Monocytes 0.8 K/uL (0.1-1.3); Absolute Neutrophil 9.5 K/uL (1.8-8.0); Basophils % 0.7 % (0-1.3); Eosinophils % 1.9 % (0-4.4); Hematocrit 44.7 % (36.0-45.0); Lymphocytes % 9.1 % (15.3-44.8); MCH 27.9 pg (27.0-35.0); MCHC 31.4 g/dL (32.0-36.0); MCV 88.8 fL (80-100); MPV 7.9 fL (7.6-11.3); Monocytes % 6.7 % (3.3-12.3); Neutrophils % 81.6 % (41.7-73.7); Nucleated Red Blood Cells % 0.1 % (0-0); Platelets 385 thou/uL (152-406); RBC Red Blood Cell Count 5.03 M/uL (3.86-4.86); Red Cell Distribution Width 15.1 % (12.1-15.2)
--- NOTE | 2025-01-12 11:47 | RAD REPORT ---
Procedure: Chest Single View HISTORY: Renal failure COMPARISON: 2023 FINDINGS: Pulmonary vascular congestion is present No pulmonary infiltrate The heart is moderately enlarged. Pacemaker/defibrillator device in place. Post surgical changes involve the chest.
[2025-01-12 12:08] LABS: Albumin 3.1 g/dL (3.4-5.0); Albumin/Globulin Ratio 0.7 (1.1-1.8); Anion Gap 9.2 mEq/L (5.0-15.0); Bilirubin Direct 0.3 mg/dL (0-0.2); Bilirubin Total 0.3 mg/dL (0.2-1.0); Globulin 4.5 g/dL (2.3-3.5); Potassium 4.2 mEq/L (3.5-5.1); Protein, Total 7.6 g/dL (6.4-8.2); Troponin High Sensitivity 12.7 pg/mL (<58.9)
[2025-01-12 12:29] LABS: Specific Gravity 1.015 (1.005-1.030); Sqamous Epithelial <5 /HPF (None Seen); Urine Bacteria <20 /HPF (<20); Urine Bilirubin NEGATIVE (Negative); Urine Blood 3+ (OVER) (Negative); Urine Clarity Extremely Turbid (Clear); Urine Color Yellow (Yellow); Urine Crystals Unidentified Few /HPF (None Seen); Urine Culture Reflex Order REFLEXED; Urine Glucose 4+ (Over) (Negative); Urine Ketones NEGATIVE (Negative); Urine Micro Reflex YN NO BILL MICROSCOPIC; Urine Mucus Slight /HPF (None Seen); Urine Nitrite 1+ (Negative); Urine Protein 1+ (Negative); Urine RBC >50 /HPF (None Seen); Urine Urobilinogen Normal (Normal); Urine WBC >50 /HPF (<5); Urine WBC Clump Many /HPF (None Seen); Urine pH 5.5 (5.0-7.0)
[2025-01-12] MEDS ORDERED: CEFTRIAXONE 2000 MG/VIAL ONE (14:01)
[2025-01-12] MEDS ORDERED: NA CHLORIDE 0.9% 100 ML ONE (14:01)
--- NOTE | 2025-01-12 14:01 | EDPHYS ---
Physician Documentation [facility] Name: Jelly Garcia Age: 79 yrs Sex: Female : 1945 Arrival Date: 01/12/2025 Time: 10:08 Bed 18 Private MD: ED Physician Tomer Fritz HPI: 01/12 14:02 This 79 yrs old Female presents to ER via Wheelchair with complaints of Renal Failure. rt 14:02 Patient presents to the ED with reported acute on chronic renal failure. Was sent to rt the ED by her flow trader Dr. Olivarez. States that she is felt somewhat weak and fatigued but denies other specific complaints at this time. States that she had a dark urine several days ago but now reports it is clear. Denies other acute complaints, symptoms are moderate severity, no other aggravating or elevating factors.. Historical: - Allergies: 10:44 Pork/Porcine Containing Products; hb 10:44 shellfish derived; hb - PMHx: 10:44 Diabetes - NIDDM; Hypercholesterolemia; GERD; Fibromyalgia; diabetes mellitus; Atrial hb Fib; CHF (Unknown); Hypertension; pacemaker/defibrillator; Temporal Arteritis; - PSHx: 10:44 Pacemaker/Defibrillator; right knee surgery; hb - Immunization history:: Adult Immunizations up to date. - Infectious Disease History:: Denies. - Social history:: Smoking status: Patient denies any tobacco usage or history of. - Family history:: not pertinent. ROS: 14:02 Constitutional: Negative for fever, chills, and weight loss, Cardiovascular: Negative rt for chest pain, palpitations, and edema, Respiratory: Negative for shortness of breath, cough, wheezing, and pleuritic chest pain, Abdomen/GI: Negative for abdominal pain, nausea, vomiting, diarrhea, and constipation, MS/Extremity: Negative for injury and deformity, Skin: Negative for injury, rash, and discoloration, 14:02 Constitutional: Positive for fatigue, Negative for fever, Exam: 14:02 Constitutional: This is a well developed, well nourished patient who is awake, alert, rt and in no acute distress. Head/Face: Normocephalic, atraumatic. Chest/axilla: Normal chest wall appearance and motion. Nontender with no deformity. No lesions are appreciated. Cardiovascular: Regular rate and rhythm with a normal S1 and S2. No gallops, murmurs, or rubs. Normal PMI, no JVD. No pulse deficits. Respiratory: Lungs have equal breath sounds bilaterally, clear to auscultation and percussion. No rales, rhonchi or wheezes noted. No increased work of breathing, no retractions or nasal flaring. Abdomen/GI: Soft, non-tender, with normal bowel sounds. No distension or tympany. No guarding or rebound. No evidence of tenderness throughout. Skin: Warm, dry with normal turgor. Normal color with no rashes, no lesions, and no evidence of cellulitis. MS/ Extremity: Pulses equal, no cyanosis. Neurovascular intact. Full, normal range of motion. Neuro: Awake and alert, GCS 15, oriented to person, place, time, and situation. Cranial nerves II-XII grossly intact. Motor strength 5/5 in all extremities. Sensory grossly intact. Cerebellar exam normal. Normal gait. 14:02 ECG was reviewed by the Attending Physician. Vital Signs: 10:41 BP 156 / 59; Pulse 84; Resp 16; Temp 99.5(O); Pulse Ox 98% on R/A; Weight 90.72 kg; hb Height 4 ft. 11 in. ; Pain 4/10; 12:52 BP 143 / 65; Pulse 77; Resp 17 S; Pulse Ox 96% on R/A; kc6 15:00 BP 142 / 73; Pulse 88; Resp 20 S; Pulse Ox 96% on R/A; kc6 10:41 Body Mass Index 40.39 (90.72 kg, 149.86 cm) hb 10:41 Pain Scale: Adult hb MDM: 10:45 Medical Screening Exam initiated rt 14:02 Differential Diagnosis Renal failure, prerenal azotemia, UTI. Data reviewed: vital rt signs, nurses notes, lab test result(s), EKG, radiologic studies. Consideration of Admission/Observation Patient was admitted/placed on observation. Management of patient was discussed with the following: Patient Partner: Discussed with phuong Mathis patient in for IV fluids. Independent interpretation of the following test(s) in the Emergency Department X-Ray: My interpretation is No edema seen on interpretation of x-ray images. Care significantly affected by the following chronic conditions: Chronic Kidney Disease. Counseling: I had a detailed discussion with the patient and/or guardian regarding the historical points, exam findings, and any diagnostic results supporting the discharge/admit diagnosis, lab results, radiology results, the need for further work-up and treatment in the hospital. Response to treatment: the patient's symptoms have mildly improved after treatment. 20:05 ED course: Dr. Kaiser reviewed the chart, patient's creatinine apparently seems to be rt at baseline at this time. Discussed again with Dr. Miller, she will follow-up the patient as an outpatient. Return precautions discussed. Will treat patient for UTI.. 01/12 11:05 Order name: Basic Metabolic Panel; Complete Time: 13:43 rt 01/12 11:05 Order name: CBC with Diff rt 01/12 11:05 Order name: LFT's; Complete Time: 13:43 rt 01/12 11:05 Order name: Troponin HS; Complete Time: 13:43 rt 01/12 11:05 Order name: UAM; Complete Time: 13:43 rt 01/12 12:33 Order name: Urine Culture EDMS 01/12 11:05 Order name: XRAY Chest (1 view); Complete Time: 12:04 rt 01/12 13:54 Order name: CT Abd/Pelvis - Without Contrast; Complete Time: 15:34 rt 01/12 11:05 Order name: EKG; Complete Time: 11:06 rt 01/12 11:05 Order name: Cardiac monitoring; Complete Time: 11:38 rt 01/12 11:05 Order name: EKG - Nurse/Tech; Complete Time: 11:38 rt 01/12 11:05 Order name: IV Saline Lock; Complete Time: 11:39 rt 01/12 11:05 Order name: Labs collected and sent; Complete Time: 11:39 rt 01/12 11:05 Order name: O2 Per Protocol; Complete Time: 11:06 rt 01/12 11:05 Order name: O2 Sat Monitoring; Complete Time: 11:06 rt EC:02 Rate is 77 beats/min. Rhythm is regular, Paced with Occasional PVCs. QRS interval is rt normal. QT interval is normal. No Q waves. Administered Medications: 11:39 Drug: NS 0.9% IV 1000 ml IV at 1 bolus Per protocol; to be given as a bolus over 60 kc6 minutes Route: IV; Rate: 1 bolus; Site: right antecubital; 12:51 Follow up: Response: No adverse reaction; IV Status: Completed infusion; IV Intake: kc6 1000ml 14:35 Drug: Rocephin - Rocephin (cefTRIAXone) IVPB 2 grams IVPB once over 30 mins; (mix in kc6 100 mL NS) Route: IVPB; Infused Over: 30 mins; Site: right antecubital; 15:01 Follow up: Response: No adverse reaction; IV Status: Completed infusion; IV Intake: kc6 100ml Disposition Summary: 01/12/25 16:27 Discharge Ordered Notes: Location: Home(01/12/25 16:27) rt Problem: new(01/12/25 16:27) rt Symptoms: have improved(01/12/25 16:27) rt Condition: Stable(01/12/25 16:27) rt Diagnosis - UTI/ Urinary tract infection, site not specified rt Followup: rt - With: Private Physician - When: 2 - 3 days - Reason: Discharge Instructions: - Discharge Summary Sheet rt - Urinary Tract Infection, Adult rt Forms: - Medication Reconciliation Form rt - Antibiotic Education rt - Prescription Opioid Use rt - Patient Portal Instructions rt - Leadership Thank You Letter rt Prescriptions: - cefpodoxime 200 mg Oral tablet - take 1 tablet ORAL route every 12 hours with food; 14 tablet; Refills: 0, rt Product Selection Permitted Signatures: Dispatcher [employer] EDMS Tracy Mathur, RN Viridiana Nunez RN RN kc6 Tomer Fritz MD MD rt Corrections: (The following items were deleted from the chart) 11:06 11:06 BASIC METABOLIC PANEL+C.LAB.BRZ ordered. EDMS EDMS 11:06 11:06 CBC+H.LAB.BRZ ordered. EDMS EDMS 11:06 11:06 HEPATIC FUNCTION+C.LAB.BRZ ordered. EDMS EDMS 11:06 11:06 Troponin High Sensitivity+C.LAB.BRZ ordered. EDMS EDMS 11:06 11:06 Urinalysis W/Microscopic+U.LAB.BRZ ordered. EDMS EDMS 16: 14:01 Inpatient Admission rt rt 16: 14:01 Ifeanyi Kaiser rt rt 16: 14:01 Telemetry/MedSurg (Inpatient) rt rt 16: 14:01 Stable rt rt 16: 14:01 new rt rt 16: 14:01 are unchanged rt rt 16: 14:01 Standard rt rt 16: 14:01 rt rt 16: 14:01 Acute on chronic renal failure rt rt 16: 14:01 UTI rt rt
--- NOTE | 2025-01-12 14:01 | ER ---
Nurse's Notes [facility] Name: Jelly Garcia Age: 79 yrs Sex: Female : 1945 Arrival Date: 01/12/2025 Time: 10:08 Bed 18 Private MD: Diagnosis: UTI/ Urinary tract infection, site not specified Presentation: 01/12 10:41 Chief complaint: Sent by Dr. Lynn for renal failure, had outpatient labs two days ago. hb Today c/o headache and generalized weakness. Coronavirus screen: At this time, the client does not indicate any symptoms associated with coronavirus-19. Ebola Screen: No symptoms or risks identified at this time. Initial Sepsis Screen: Does the patient meet any 2 criteria? No. Patient's initial sepsis screen is negative. Does the patient have a suspected source of infection? No. Patient's initial sepsis screen is negative. Risk Assessment: Do you want to hurt yourself or someone else? Patient reports no desire to harm self or others. Onset of symptoms was January 12, 2025. 10:41 Method Of Arrival: Wheelchair hb 10:41 Acuity: BRIAN 3 hb Historical: - Allergies: 10:44 Pork/Porcine Containing Products; hb 10:44 shellfish derived; hb - PMHx: 10:44 Diabetes - NIDDM; Hypercholesterolemia; GERD; Fibromyalgia; diabetes mellitus; Atrial hb Fib; CHF (Unknown); Hypertension; pacemaker/defibrillator; Temporal Arteritis; - PSHx: 10:44 Pacemaker/Defibrillator; right knee surgery; hb - Immunization history:: Adult Immunizations up to date. - Infectious Disease History:: Denies. - Social history:: Smoking status: Patient denies any tobacco usage or history of. - Family history:: not pertinent. Screenin:39 [facility] ED Fall Risk Assessment (Adult) History of falling in the last 3 months, kc6 including since admission No falls in past 3 months (0 pts) Confusion or Disorientation No (0 pts) Intoxicated or Sedated No (0 pts) Impaired Gait No (0 pts) Mobility Assist Device Used Yes (1 pt) Altered Elimination No (0 pt) Score/Fall Risk Level 0 - 2 = Low Risk Oriented to surroundings, Maintained a safe environment. Abuse screen: Denies threats or abuse. Denies injuries from another. Nutritional screening: No deficits noted. Tuberculosis screening: No symptoms or risk factors identified. Assessment: 11:40 General: Appears in no apparent distress. comfortable, obese, well groomed, well kc6 developed, Behavior is calm, cooperative, appropriate for age, Reports fatigue for 2-3 days, Denies fever, chills. Neuro: Level of Consciousness is awake, alert, obeys commands, Oriented to person, place, time, situation, Appropriate for age. Cardiovascular: Capillary refill < 3 seconds. Respiratory: Airway is patent Trachea midline Respiratory effort is even, unlabored, Respiratory pattern is regular, symmetrical. GI: No signs and/or symptoms were reported involving the gastrointestinal system. : No signs and/or symptoms were reported regarding the genitourinary system. Urine is cloudy, Denies burning with urination, urinary frequency, urgency. EENT: No signs and/or symptoms were reported regarding the EENT system. Derm: No signs and/or symptoms reported regarding the dermatologic system. Skin is intact, is healthy with good turgor, Skin is pink, warm \T\ dry. Musculoskeletal: No signs and/or symptoms reported regarding the musculoskeletal system. Circulation, motion, and sensation intact. Range of motion: intact in all extremities. 12:52 Reassessment: Patient appears in no apparent distress at this time. No changes from kc6 previously documented assessment. Patient and/or family updated on plan of care and expected duration. Pain level reassessed. Patient is alert, oriented x 3, equal unlabored respirations, skin warm/dry/pink. 13:58 Reassessment: Patient appears in no apparent distress at this time. No changes from kc6 previously documented assessment. Patient and/or family updated on plan of care and expected duration. Pain level reassessed. Patient is alert, oriented x 3, equal unlabored respirations, skin warm/dry/pink. 15:00 Reassessment: Patient appears in no apparent distress at this time. No changes from kc6 previously documented assessment. Patient and/or family updated on plan of care and expected duration. Pain level reassessed. Patient is alert, oriented x 3, equal unlabored respirations, skin warm/dry/pink. 16:45 Reassessment: Patient appears in no apparent distress at this time. No changes from kc6 previously documented assessment. Patient and/or family updated on plan of care and expected duration. Pain level reassessed. Patient is alert, oriented x 3, equal unlabored respirations, skin warm/dry/pink. Vital Signs: 10:41 BP 156 / 59; Pulse 84; Resp 16; Temp 99.5(O); Pulse Ox 98% on R/A; Weight 90.72 kg; hb Height 4 ft. 11 in. ; Pain 4/10; 12:52 BP 143 / 65; Pulse 77; Resp 17 S; Pulse Ox 96% on R/A; kc6 15:00 BP 142 / 73; Pulse 88; Resp 20 S; Pulse Ox 96% on R/A; kc6 10:41 Body Mass Index 40.39 (90.72 kg, 149.86 cm) hb 10:41 Pain Scale: Adult hb ED Course: 10:13 Patient arrived in ED. cj3 10:14 Tomer Fritz MD is Attending Physician. rt 10:35 Viridiana Velez, RN is Primary Nurse. kc6 10:43 Triage completed. hb 10:44 Arm band placed on. hb 11:39 Patient has correct armband on for positive identification. Bed in low position. Call kc6 light in reach. Side rails up X2. Adult w/ patient. electronic device monitor on. Pulse ox on. NIBP on. Door closed. Noise minimized. Lights dimmed. Warm blanket given. Pillow given. Verbal reassurance given. Assisted to bathroom. 11:39 Initial lab(s) drawn, by me, sent to lab. Urine collected: clean catch specimen, kc6 cloudy, EKG done, by ED staff, reviewed by Tomer Fritz MD. Inserted saline lock: 18 gauge in right antecubital area, using aseptic technique. Blood collected. Flushed with 10 mL NS. Patient maintains SpO2 saturation greater than 95% on room air. 11:44 XRAY Chest (1 view) In Process Unspecified. EDMS 14:00 Ifeanyi Kaiser MD is Hospitalizing Provider. rt 14:24 CT Abd/Pelvis - Without Contrast In Process Unspecified. EDMS 15:01 No provider procedures requiring assistance completed. Patient admitted, IV remains in kc6 place. Administered Medications: 11:39 Drug: NS 0.9% IV 1000 ml IV at 1 bolus Per protocol; to be given as a bolus over 60 kc6 minutes Route: IV; Rate: 1 bolus; Site: right antecubital; 12:51 Follow up: Response: No adverse reaction; IV Status: Completed infusion; IV Intake: kc6 1000ml 14:35 Drug: Rocephin - Rocephin (cefTRIAXone) IVPB 2 grams IVPB once over 30 mins; (mix in kc6 100 mL NS) Route: IVPB; Infused Over: 30 mins; Site: right antecubital; 15:01 Follow up: Response: No adverse reaction; IV Status: Completed infusion; IV Intake: kc6 100ml Medication: 15:01 VIS not applicable for this client. kc6 Intake: 12:51 IV: 1000ml; Total: 1000ml. kc6 15:01 IV: 100ml; Total: 1100ml. 6 Outcome: 14:01 Decision to Hospitalize by Provider. rt 16:45 Discharged to home via wheelchair, with friend, [facility] 16:45 Condition: good 16:45 Discharge instructions given to patient, friend, Instructed on discharge instructions, follow up and referral plans. medication usage, Demonstrated understanding of instructions, follow-up care, medications, Prescriptions given X 1, 16:46 Patient left the ED. 6 Addendum: 01/14/2025 19:18 Addendum: Culture Results: Positive urine culture. Bacteria is resistant to, has s s intermediate sensitivity, or is not tested against prescribed antibiotics. Report given to ANA CRISTINA for further evaluation and then to sports management professor for follow up with patient. Phone call Attempt #1 Attempted to call patient to change prescribed abx as recommended by NATHALY Haro, but no answer. Unable to leave VM. Phone kept ringing and ringing. Recommendation to stop cefpodoxime and start Macrobid 100 mg 1 tab BID x 7 days, no refill. # 14. Signatures: Dispatcher [employer] EDMS Lilibeth Cedillo RN RN Tracy Mathur RN RN Viridiana Velez RN RN kc6 Tomer Fritz MD MD rt Kylie Nolan cj3 Corrections: (The following items were deleted from the chart) 01/12 16:46 15:01 Condition: good [place] [address] 16:46 15:01 Admitted to ER Hold. Please see [facility] for further documentation. [place] [address] 16:46 15:01 Instructed on the need for admit, [place] [address] 16:46 16:27 Discharge ordered by MD. rt kc6
--- NOTE | 2025-01-12 15:13 | RAD REPORT ---
EXAMINATION: CT ABDOMEN AND PELVIS WITHOUT CONTRAST CLINICAL INDICATION: Hematuria. Renal failure. TECHNIQUE: CT abdomen and pelvis was performed, as per department protocol. IV contrast and oral was not administered.Axial, sagittal and coronal reconstructions were obtained. One or more of the following dose reduction techniques were used: Automated exposure control, adjustment of the mA and/o r kV according to the patient size, and/or iterative reconstruction. Unless otherwise specified, incidental findings do not require dedicated imaging follow-up. [id number]. COMPARISON: 2023. FINDINGS: The lack of intravenous and oral contrast limits evaluation of solid organs, vessels and bowel. Cholecystectomy. Spleen, pancreas, adrenals and left kidney grossly normal. Right renal cysts. Cystocele suspected Hysterectomy. No adnexal mass.. Atherosclerosis. Cardiomegaly Several smaller moderate ventral hernias containing fat. IMPRESSION: No acute abnormality displayed
[2025-01-12 16:50] VITALS: TEMP 99.5
[2025-01-12 16:52] VITALS: O2SAT 96
[2025-01-12 16:53] VITALS: BP 142/73
[2025-01-12 17:11] LABS: Band Neutrophils 3 % (0-1); Differential Total Cells Count 100; Lymphocytes 10 % (15-42); Metamyelocytes 2 % (0-0); Monocytes 9 % (0-10); Platelet Estimate ADEQ; Segmented Neutrophils 73 % (40-80)
[2025-01-12 17:12] LABS: Blood Morphology Comment NOT SEEN (NOT SEEN)
--- NOTE | 2025-01-14 10:53 | EKG ---
Test Date: 2025-01-12 Test Time: 11:20:24 Buttonhole Facer: AARON MEASUREMENT RESULTS: Intervals: Rate: 77 NE: QRSD: 126 QT: 430 QTc: 486 [place]: P: NE: QRS: 111 T: -66 INTERPRETIVE STATEMENTS: Demand pacemaker, interpretation is based on intrinsic rhythm Wide QRS rhythm with premature supraventricular complexes with occasional and consecutive premature ventricular complexes and f Nonspecific intraventricular block Lateral infarct, age undetermined Marked T wave abnormality, consider inferior ischemia Abnormal ECG Compared to ECG 09/21/2024 12:35:06 Uncertain supraventricular rhythm now present Atrial premature complex(es) now present Myocardial infarct finding now present T-wave abnormality now present Possible ischemia now present Atrial-paced complex(es) or rhythm no longer present Electronically Signed On 01-14-25 10:48:41 CDT by Haseeb Ferrell
--- NOTE | 2025-01-15 01:01 | CON ---
Date of Consultation: 01/12/2025 Chief Complaint: Acute on chronic kidney injury; prerenal azotemia; urinary tract infection, site un specified. History Of Present Illness: The patient was referred to emergency room by me when she had routine la b work done and it showed renal function decline. Lab work obtained outpatient showed creatinine lev el of 3.2, BUN 51, glucose 182, sodium 137, potassium 4.5, chloride 99, CO2 21, calcium 8.8, phosphor us 3.8, albumin 3.4, estimated GFR was 14. The patient was referred to emergency room for acute kidn ey injury and urinary tract infection. She denies fever, chills, hematuria, or dysuria. In the [facility] room, she had blood work done, which showed some improvement of renal function and CT scan was done to rule out obstructive uropathy. The patient has multiple medical problems, including diabetes mellitus, congestive heart failure with systolic/diastolic dysfunction, cardiorenal syndrome, hypertension, temporal arteritis, fibromyalgia , GERD, hypercholesterolemia, right knee surgery, pacemaker, and defibrillator. Review of Systems: Constitutional/Eyes: She denies headache, vision changes. Ears, Nose, Mouth, and Throat: Denies sore throat, earache. Respiratory: Denies PND, orthopnea. Cardiovascular: Denies chest pain, palpitation, syncope. GI: Denies nausea, vomiting. Physical Examination: General: The patient is not in acute distress. Eyes: Anicteric sclerae. EOMI. Ears, Nose, Mouth, and Throat: Oral mucosa moist. No pallor. Neck supple. No bruits. Lungs: Diminished breath sounds at bases. Heart: S1 and S2. Abdomen: Soft, benign. Extremities: Slight edema. Impression And Plan: The patient was started on normal saline IV fluids and received IV normal salin e 1000 mL. Lab work obtained in the emergency room, which showed some improvement of renal function. The patient was started on Rocephin for urinary tract infection and urine culture was obtained. Th e patient had CT scan without contrast to rule out obstructive uropathy and did not show hydronephros is. Subsequently, lab work was evaluated to check renal function and creatinine was 2.15 and BUN 43. The patient was discharged to home by emergency room physician to follow up for urinary tract infec tion. BAMBI/AQUILINO Voice ID: [id number] Report ID: [id number]
== END 2025-01-12 16:46 | disposition home or self-care (01) ==
LOC: ER 10:08
DX: N39.0 Urinary tract infection, site not specified (principal); R53.83 Other fatigue; E11.9 Type 2 diabetes mellitus without complications; I10 Essential (primary) hypertension; Z95.810 Presence of automatic (implantable) cardiac defibrillator
CPT/HCPCS: 96365; 96361; 93005; 87088; 85025; 81001; 87086; 80048; 36415; 80076; 87077; 87186; 84484; 74176; 71045; 99285; J0696; J7030

== ENCOUNTER 2025-01-14 14:25 | Inpatient (IN) | payer OTHER ==
[2025-01-14] MEDS ORDERED: ACETAMINOPHEN 325 MG TABLET PO PRN (15:26)
--- NOTE | 2025-01-14 16:16 | P.HP ---
Certification for Inpatient Patient admitted to: Inpatient With expected LOS: >2 Midnights Patient will require the following post-hospital care: None Practitioner: I am a practitioner with admitting privileges, knowledge of patient current condition, hospital course, and medical plan of care. Services: Services provided to patient in accordance with Admission requirements found in Title 42 Section 412.3 of the Code of Federal Regulations Patient History Date of Service: 01/14/25 Reason for admission: ESBL of the urine History of Present Illness: Jelly Sandhu is a 79 year old male with Pmkx Diabetes - NIDDM, Hypercholesterolemia, GERD, Fibromyalgia, DM-NIDDM, Atrial Fib, CAD s/p CABG, Systolic CHF, Severe pulmonary HTN, Hypertension, pacemaker/defibrillator, Temporal Arteritis, who is a direct admit d/t urine culture growing ESBL Ecoli. She reports coming to the ED on 01/12 for renal failure at which time a urine culture was taken and has resulted since discharge from the ED. She reports urinary symptoms of burning and frequency, denies fever, chills, and abdominal pain. Jelly will be admitted to hospitalist service for further treatment of ESBL of the Urine, Dr. Cabrera consulted. Allergies shellfish derived Allergy (Unknown, Verified 04/07/24 21:47) unknown Pork/Porcine Containing Products Allergy (Verified 04/07/24 21:47) unknown Home Medications: Duloxetine [Cymbalta *] 60 mg PO BID 01/20/18 Omeprazole 40 mg PO DAILY 01/20/18 Spironolactone 1 tab PO DAILY 06/06/23 Amiodarone HCl [Cordarone*] 200 mg PO DAILY 10/22/23 Apixaban [Eliquis *] 5 mg PO BID 10/22/23 Atorvastatin Calcium [Lipitor] 80 mg PO BEDTIME 10/22/23 Bethanechol Chloride 10 mg PO TID 10/22/23 Gabapentin [Neurontin*] 100 mg PO BID 10/22/23 carvediloL [Coreg*] 3.125 mg PO BID 10/22/23 Melatonin 10 mg PO BEDTIME PRN PRN 11/03/23 Ropinirole HCl [Requip*] 0.5 mg PO BEDTIME tab 11/03/23 Docusate [Colace Cap*] 100 mg PO BID 11/04/23 Lactobacillus Acidophilus [Acidophilus Lactobacilli] 1 cap PO BID 11/04/23 Potassium Chloride [Klor-Con] 20 meq PO DAILY 10 Days #10 packet 04/08/24 Acetam/Caff/Butal [Fioricet*] 1 tab PO Q4H PRN 06/28/24 Carbidopa/Levodopa [Carbidopa-Levodopa 25-100 Tab] 1 tab PO TID 06/28/24 Furosemide [Lasix] 40 mg PO DAILY 06/28/24 Metformin ER [Glucophage ER*] 500 mg PO DAILY 06/28/24 Sacubitril/Valsartan [Entresto 97 mg-103 mg Tablet] 1 each PO BID 06/28/24 - Past Medical/Surgical History Diabetic: Yes -: fibromyalgia -: Chronic diastolic congestive heart failure -: HTN -: brain tumor- 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 rebuilt surg -: fibroid sx -: hysterectomy -: Pacemaker, CABG 2022 Psychosocial/ Personal History: Lives at home alone, family frequently check on her, has home health - Family History Sister -: Heart disease, Hypertension Notes: additional sister with arthritis Father -: Cancer Notes: lung Mother -: Cancer Notes: colon - Social History Smoking Status: Never smoker Alcohol use: Yes CD- Drugs: Yes Caffeine use: Yes Review of Systems Other: per HPI Physical Examination - Physical Exam General: Alert, In no apparent distress, Oriented x3 HEENT: Atraumatic, Normocephalic Neck: Supple, 2+ carotid pulse no bruit Respiratory: Clear to auscultation bilaterally, Normal air movement Cardiovascular: Normal pulses, Regular rate/rhythm, Normal S1 S2 Capillary refill: <2 Seconds Gastrointestinal: Normal bowel sounds, Soft and benign, Distended (Obese) Musculoskeletal: No clubbing Integumentary: No rashes Neurological: Normal speech, Normal tone Assessment and Plan - Plan Assessment and plan ESBL in urine Recurrent UTI - 01/12/2025 urine culture resulted with ESBL E. coli - History of ESBL urine 06/26/2024, ESBL blood 10/18/2023 - Dr. Cabrera consulted - Merrem Q12h - Gentle IV fluids - Follow blood culture Diabetes - NIDDM -accucheck with SSI Hypercholesterolemia GERD Fibromyalgia Atrial Fib Systolic CHF Severe pulmonary HTN CAD s/p CABG Hypertension pacemaker/defibrillator Temporal Arteritis -Continue home medications as appropriate -outpatient follow up -Continuous telemetry DVT ppx Heparin Full code LOS 2-3 days Discharge Plan: Home Plan to discharge in: 72 Hours - Advance Directives Does patient have a Living Will: No Does patient have a Durable POA for Healthcare: No
[2025-01-14 16:38] VITALS: BMI 40.4
[2025-01-14] MEDS: Meropenem 1,000 MG in NA CHLORIDE 0.9% 100 ML IV SCH (18:03)
[2025-01-14] MEDS: HEPARIN 5000 UNIT/ML 1 ML VIAL SQ SCH (20:24)
[2025-01-14 22:11] LABS: Magnesium 1.9 mg/dL (1.6-2.4)
[2025-01-14 22:13] LABS: Absolute Basophils 0.1 K/uL (0-0.5); Absolute Eosinophils 0.1 K/uL (0-0.5); Absolute Lymphocytes (CBC) 0.8 K/uL (0.7-4.9); Absolute Monocytes 0.5 K/uL (0.1-1.3); Absolute Neutrophil 9.6 K/uL (1.8-8.0); Basophils % 1.1 % (0-1.3); Eosinophils % 0.8 % (0-4.4); Hematocrit 40.2 % (36.0-45.0); Hemoglobin 12.8 g/dL (12.0-15.0); Lymphocytes % 7.2 % (15.3-44.8); MCH 27.9 pg (27.0-35.0); MCHC 31.9 g/dL (32.0-36.0); MCV 87.5 fL (80-100); MPV 7.2 fL (7.6-11.3); Monocytes % 4.8 % (3.3-12.3); Neutrophils % 86.1 % (41.7-73.7); Nucleated Red Blood Cells % 0.1 % (0-0); Platelets 393 thou/uL (152-406); RBC Red Blood Cell Count 4.59 M/uL (3.86-4.86); Red Cell Distribution Width 15.7 % (12.1-15.2)
[2025-01-14] MEDS ORDERED: TRAMADOL HCL 50 MG TAB PO PRN ×2 (23:21→23:29)
[2025-01-14] MEDS: TRAMADOL HCL 50 MG TAB PO ONE (23:45)
[2025-01-15 00:34] LABS: Band Neutrophils 9 % (0-1); Blood Morphology Comment NOT SEEN (NOT SEEN); Differential Total Cells Count 100; Lymphocytes 10 % (15-42); Metamyelocytes 1 % (0-0); Monocytes 5 % (0-10); Myelocytes 1 % (0-0); Platelet Estimate ADEQ; Segmented Neutrophils 74 % (40-80)
[2025-01-15 05:52] LABS: Absolute Basophils 0.1 K/uL (0-0.5); Absolute Eosinophils 0.2 K/uL (0-0.5); Absolute Lymphocytes (CBC) 1.1 K/uL (0.7-4.9); Absolute Monocytes 0.7 K/uL (0.1-1.3); Absolute Neutrophil 9.2 K/uL (1.8-8.0); Basophils % 0.7 % (0-1.3); Eosinophils % 2.1 % (0-4.4); Hematocrit 40.7 % (36.0-45.0); Hemoglobin 12.8 g/dL (12.0-15.0); Lymphocytes % 9.5 % (15.3-44.8); MCHC 31.6 g/dL (32.0-36.0); MCV 88.6 fL (80-100); MPV 7.4 fL (7.6-11.3); Monocytes % 6.3 % (3.3-12.3); Neutrophils % 81.4 % (41.7-73.7); Nucleated Red Blood Cells % 0.1 % (0-0); Platelets 375 thou/uL (152-406); RBC Red Blood Cell Count 4.59 M/uL (3.86-4.86); Red Cell Distribution Width 15.6 % (12.1-15.2)
[2025-01-15 06:06] LABS: Anion Gap 9.8 mEq/L (5.0-15.0); Magnesium 1.9 mg/dL (1.6-2.4); Phosphorus 2.5 mg/dL (2.5-4.9); Potassium 3.8 mEq/L (3.5-5.1)
[2025-01-15] MEDS: POTASSIUM CL SA 10 MEQ TAB PO ONE (09:43)
--- NOTE | 2025-01-15 10:21 | PN ---
Date of Progress Note: 01/15/2025 Subjective: The patient was admitted to the hospital with acute kidney injury on chronic kidney dise ase. The patient upon arrival to the hospital had elevation in creatinine. After hydration, kidney function started improving. Physical Examination: Vital Signs: When I saw the patient, blood pressure of 148/56, pulse of 58, afebrile. Chest: Clear to auscultation. Heart: S1, S2. Systolic murmur. Abdomen: Soft, nontender. Extremities: No edema. Neurologic: Alert. No focality. Laboratory Data: Sodium 142, potassium 3.8, bicarb 29, BUN 30, creatinine 1.8, GFR of 27, calcium 9. 3, phosphorus 2.5, magnesium 1.9, hemoglobin 12.8. Urine culture growing E coli ESBL. Current Medications: The patient is on include: 1. Heparin. 2. Meropenem. 3. Tramadol. Assessment And Plan: 1. Acute kidney injury on chronic kidney disease secondary to toxic ATN, recovered, back close to her baseline. Obstructive uropathy has been ruled out with CAT scan. I am going to continue to monitor the patient. Continue current antibiotic. 2. UTI secondary to ESBL. No obstructive uropathy. No suspected foci. Continue meropenem. We will follow up with ID. We will consult Case Management for outpatient setup for meropenem and okay from the renal standpoint for PICC line. 3. Congestive heart failure. Currently, the patient is on the normal volume. Continue current treatment. 4. Hypokalemia. We will supplement. JEMAL Voice ID: [id number] Report ID: [id number]
--- NOTE | 2025-01-15 11:15 | CON ---
Date of Consultation: 01/15/2025 Additional Consulting Physician: Dr. Friedman. Reason For Consultation: Elevated BUN and creatinine, electrolyte imbalance, UTI. History Of Present Illness: This is a pleasant 79-year-old female with significant past medical hist ory of chronic kidney disease, baseline creatinine 1.5, GFR of 36, follow up with Dr. Lynn, CAD, comp licated with congestive heart failure, diastolic dysfunction, fibromyalgia, hyperlipidemia, recurrent UTI. DICTATION ENDS HERE. JEMAL Voice ID: [id number] Report ID: [id number]
[2025-01-15] MEDS: AMIODARONE HCL 200 MG TAB PO SCH (12:48)
[2025-01-15] MEDS ORDERED: TRAMADOL HCL 50 MG TAB PO PRN (14:00)
[2025-01-15] MEDS ORDERED: BENZONATATE 100 MG CAP PO PRN (14:00)
[2025-01-15] MEDS: BETHANECHOL 10 MG TAB PO SCH (14:00)
--- NOTE | 2025-01-15 14:02 | P.PN ---
Subjective Date of Service: 01/15/25 Chief Complaint: ESBL of the urine Patient has no new complaint. She has been afebrile She denies any dysuria She reports good appetite. Physical Examination - Vital Signs Temperature: 97.9 F Blood Pressure: 106/52 Pulse: 140 Respirations: 18 Pulse Ox (%): 96 - Studies Laboratory Data (last 24 hrs) 01/15/25 01/15/25 01/14/25 05:32 05:32 21:40 WBC 11.30 H Hgb 12.8 Hct 40.7 Plt Count 375 Sodium 142 142 Potassium 3.8 4.0 BUN 30 H 30 H Creatinine 1.86 H 2.02 H Glucose 127 H 169 H Phosphorus 2.5 Magnesium 1.9 1.9 01/14/25 21:40 WBC 11.10 H Hgb 12.8 Hct 40.2 Plt Count 393 Sodium Potassium BUN Creatinine Glucose Phosphorus Magnesium Assessment And Plan - Plan Physical examination General: Alert and oriented x3, NAD, HEENT: Conjunctiva not pale, anicteric sclera Neck: Supple, no elevated JVD Heart: Heart sounds 1 and 2 normal, regular rhythm, normal rate, no pedal edema Lungs: Clear to auscultation bilaterally, adequate breath sounds bilaterally, no rhonchi or crackles. Abdomen: Soft, nondistended, nontender, normal bowel sounds. Extremities: No tenderness, no deformity Skin: Normal skin turgor, no rash, no nodules or ulcers. Neuro: No focal motor deficit. Normal speech. Psychiatry: Normal mood, no agitation. Diagnosis ESBL E. coli UTI A-fib with RVR Hypercholesterolemia GERD Fibromyalgia Systolic CHF Severe pulmonary HTN CAD s/p CABG Hypertension pacemaker/defibrillator Temporal Arteritis ESBL in urine Recurrent UTI History of recurrent ESBL UTI Continue IV meropenem Infectious disease Dr. Cabrera consulted Place midline for outpatient IV antibiotics. Antibiotic duration per Dr. Cabrera. A-fib with RVR Presence of pacemaker/defibrillator Resume home dose amiodarone and Coreg Continue telemetry. Diabetes - NIDDM -accucheck with SSI Hypercholesterolemia GERD Fibromyalgia Systolic CHF Severe pulmonary HTN CAD s/p CABG Hypertension Temporal Arteritis -Continue home medications as appropriate DVT ppx: Patient is on Eliquis Advance directive: full code
[2025-01-15] MEDS: ACETAMIN/CAFFEINE/BUTALB TAB PO PRN (14:04)
[2025-01-15] MEDS: DIPHENHYDRAMINE 25 MG TAB/CAP ONE (20:46)
[2025-01-15] MEDS: LACTOBACILLUS/ACIDOPHILUS TAB PO SCH (20:54)
[2025-01-15] MEDS: DIPHENHYDRAMINE 25 MG TAB/CAP PO ONE (20:54)
[2025-01-15] MEDS: ROPINIROLE HCL 0.25 MG TAB PO SCH (20:54)
[2025-01-15] MEDS: GABAPENTIN 100 MG CAP PO SCH (20:55)
[2025-01-15] MEDS: DOCUSATE NA 100 MG CAP PO SCH (20:55)
[2025-01-15] MEDS: ROSUVASTATIN 5 MG TAB PO SCH (20:55)
[2025-01-15] MEDS: APIXABAN 5 MG TABLET PO SCH (20:55)
[2025-01-15] MEDS: Mupirocin NASAL 2 APPL/1 GM TUBE NAS SCH (20:55)
[2025-01-15] MEDS: MELATONIN 5 MG TABLET PO PRN (20:56)
[2025-01-15] MEDS: HOME MED 1 EA UNK (Sacubitril/Valsartan [Entresto 97 Mg-103 Mg Tablet] Tablet) PO SCH (20:59)
[2025-01-15] MEDS: LATANOPROST 0.005% 2.5ML OPTH OPTH SCH (21:00)
[2025-01-15] MEDS: carvediloL 6.25 MG TAB PO SCH (21:05)
[2025-01-15 22:30] VITALS: O2SAT 93
--- NOTE | 2025-01-16 01:31 | CON ---
Date of Consultation: 01/15/2025 History Of Present Illness: This is a 79-year-old female, I was consulted for evaluation of urinary tract infection secondary to ESBL infection. ESBL organism in a 79-year-old female with significant history of diabetes mellitus; hypercholesterolemia; gastroesophageal reflux disease; fibromyalgia; at rial fibrillation; coronary artery disease, status post CABG; systolic congestive heart failure; erica re pulmonary hypertension; pacemaker and defibrillator placement; temporal arthritis. The patient wa s admitted for urinary tract infection secondary to ESBL E coli. The patient came to the emergency r oom with renal failure and denies any headache, nausea, vomiting, chest pain, abdominal pain, constip ation, or diarrhea. Past Medical History: As per HPI. Social History: Nonsmoker, nondrinker. Family History: Noncontributory. Medications: Meropenem. See MARs for other medications. Allergies: SHELLFISH, PORK, AND PORCINE CONTAINING PRODUCTS. Family History: Heart disease, hypertension, and cancer. Social History: Nonsmoker. Alcohol positive. Review of Systems: A 10-point review was performed. Physical Examination: General: This is a 79-year-old female, lying in bed, not in any acute cardiopulmonary distress. Vital Signs: Temperature 97.8, pulse 76, respiration 20, blood pressure 131/56. HEENT: Unremarkable. Neck: Supple. Lungs: Basal crackles. Heart: S1, S2. Regular. Abdomen: Obese. Bowel sounds present. Extremities: Trace edema. Laboratory Data: Shows WBC 11.3, hemoglobin 12.8, platelets are 375. BUN of 30, creatinine 1.6. Bl ood cultures from 01/14 shows no growth. Assessment And Plan: 1. Urinary tract infection secondary to Escherichia coli extended-spectrum beta-lactamase currently b eing treated with meropenem. Recommend 2-7 days of antibiotic. 2. Diabetes mellitus. 3. Leukocytosis. 4. Renal insufficiency. 5. Hyperglycemia. Continue current treatment. We will follow the patient as needed. Monitor signs of infection with WBC and fever trend. Thank you for consult. NF/MODL Voice ID: [id number] Report ID: [id number]
[2025-01-16 05:05] LABS: Absolute Basophils 0.1 K/uL (0-0.5); Absolute Eosinophils 0.3 K/uL (0-0.5); Absolute Lymphocytes (CBC) 0.6 K/uL (0.7-4.9); Absolute Monocytes 0.5 K/uL (0.1-1.3); Absolute Neutrophil 6.4 K/uL (1.8-8.0); Basophils % 1.6 % (0-1.3); Eosinophils % 4.3 % (0-4.4); Hematocrit 40.6 % (36.0-45.0); Lymphocytes % 7.3 % (15.3-44.8); MCH 28.2 pg (27.0-35.0); MCV 88.1 fL (80-100); MPV 7.3 fL (7.6-11.3); Monocytes % 6.7 % (3.3-12.3); Nucleated Red Blood Cells % 0.1 % (0-0); Platelets 359 thou/uL (152-406); RBC Red Blood Cell Count 4.61 M/uL (3.86-4.86); Red Cell Distribution Width 15.7 % (12.1-15.2)
[2025-01-16 05:10] LABS: Neutrophils % 80.1 % (41.7-73.7)
[2025-01-16 05:23] LABS: Albumin 2.7 g/dL (3.4-5.0); Anion Gap 10.5 mEq/L (5.0-15.0); Magnesium 2.1 mg/dL (1.6-2.4); Phosphorus 3.5 mg/dL (2.5-4.9); Potassium 4.5 mEq/L (3.5-5.1)
[2025-01-16] MEDS: HOME MED 1 EA UNK (Dapagliflozin Propanediol [Farxiga] 10 MG Tablet) PO SCH (09:00)
[2025-01-16] MEDS ORDERED: HOME MED 1 EA UNK (Omeprazole [Omeprazole] 20 MG Capsule.Dr) PO SCH (09:00)
[2025-01-16] MEDS: FUROSEMIDE 40 MG TABLET PO SCH (09:04)
[2025-01-16] MEDS: ASPIRIN 81 MG CHEWABLE TABLET PO SCH (09:06)
[2025-01-16] MEDS: DOCOSAHEXANOIC AC/EPA 1000 MG PO SCH (09:06)
[2025-01-16] MEDS: SPIRONOLACTONE 25 MG TABLET PO SCH (09:06)
[2025-01-16] MEDS: VITAMIN B COMPLEX 1 CAP PO SCH (09:06)
[2025-01-16] MEDS: PANTOPRAZOLE 40MG TABLET PO SCH (09:06)
[2025-01-16] MEDS: DULOXETINE 30 MG CAP PO SCH (09:06)
[2025-01-16] MEDS: predniSONE 5 MG TAB PO SCH (09:08)
--- NOTE | 2025-01-16 10:53 | P.CNS ---
Date of Consult: 01/15/25 Reason for Consult: AUDREY Chief Complaint: ESBL of the urine History of Present Illness: t 78-year-old female follow up with Dr. Lynn with chronic kidney disease, baseline creatinine 1.5, GFR of 36, CAD complicated with congestive heart failure, diastolic dysfunction, fibromyalgia, hyperlipidemia, the patient had lately recurrent UTI and found to have multidrug resistant ESBL. For that reason, the patient was directed by for admission for IV antibiotic. The patient complaining of abdominal pain. The patient had dysuria Allergies shellfish derived Allergy (Unknown, Verified 04/07/24 21:47) unknown Pork/Porcine Containing Products Allergy (Verified 04/07/24 21:47) unknown Home Medications: Duloxetine [Cymbalta *] 60 mg PO DAILY 01/20/18 Omeprazole 40 mg PO DAILY 01/20/18 Spironolactone 1 tab PO DIRECTED 06/06/23 Amiodarone HCl [Cordarone*] 100 mg PO DAILY 10/22/23 Apixaban [Eliquis *] 5 mg PO BID 10/22/23 Bethanechol Chloride 10 mg PO TID 10/22/23 Gabapentin [Neurontin*] 200 mg PO BID 10/22/23 carvediloL [Coreg*] 6.25 mg PO BID 10/22/23 Ropinirole HCl [Requip*] 0.5 mg PO BEDTIME tab 11/03/23 Docusate [Colace Cap*] 100 mg PO BID 11/04/23 Lactobacillus Acidophilus [Acidophilus Lactobacilli] 1 cap PO BID 11/04/23 Acetam/Caff/Butal [Fioricet*] 1 tab PO Q4H PRN 06/28/24 Furosemide [Lasix] 40 mg PO DAILY 06/28/24 Sacubitril/Valsartan [Entresto 97 mg-103 mg Tablet] 1 each PO BID 06/28/24 Aspirin [Vazalore] 81 mg PO DAILY 01/14/25 Benzonatate 100 mg PO PRN 01/14/25 Dapagliflozin Propanediol [Farxiga] 10 mg PO DAILY 01/14/25 Latanoprost Ophth [Xalatan 0.005%*] 1 gtt OPTH BEDTIME 01/14/25 Melatonin 10 mg PO BEDTIME PRN PRN 01/14/25 [place]-3 Fatty Acids [[place]-3] 2,000 mg PO DAILY 01/14/25 Prednisone [Olena] 5 mg PO DAILY 01/14/25 Rosuvastatin Calcium 5 mg PO BEDTIME 01/14/25 Tramadol HCl [Ultram] 50 mg PO PRN 01/14/25 Vitamin B Complex [B Complex] 5 mg PO DAILY 01/14/25 - Past Medical/Surgical History Diabetic: Yes -: fibromyalgia -: Chronic diastolic congestive heart failure -: HTN -: brain tumor- 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 rebuilt surg -: fibroid sx -: hysterectomy -: Pacemaker, CABG 2022 Psychosocial/ Personal History: Lives at home alone, family frequently check on her, has home health - Family History Sister Medical History: Heart disease, Hypertension Notes: additional sister with arthritis Father Medical History: Cancer Notes: lung Mother Medical History: Cancer Notes: colon - Social History Smoking Status: Current every day smoker Alcohol use: Yes CD- Drugs: Yes Caffeine use: Yes Place of Residence: Home Review of Systems 10-point ROS is otherwise unremarkable Genitourinary: Dysuria, Frequency Physical Examination Temp Pulse Resp BP Pulse Ox 98.1 F 55 16 130/69 91 01/16/25 08:00 01/16/25 09:04 01/16/25 08:00 01/16/25 08:00 01/16/25 08:00 General: Alert, Oriented x3 HEENT: Atraumatic, Normocephalic, PERRLA Neck: Supple, 2+ carotid pulse no bruit, JVD not distended Respiratory: Clear to auscultation bilaterally, Normal air movement Cardiovascular: No edema, Normal pulses, Normal S1 S2, Edema, Systolic murmur Gastrointestinal: Normal bowel sounds, Hypoactive, Soft and benign Musculoskeletal: No clubbing, No swelling Neurological: Normal strength at 5/5 x4 extr, Cranial nerves 3-12 intact Laboratory Data (last 24 hrs) 01/16/25 01/16/25 01/15/25 04:26 04:26 15:16 WBC 8.00 Hgb 13.0 Hct 40.6 Plt Count 359 Sodium 142 Potassium 4.5 D BUN 27 H Creatinine 1.45 H Glucose 165 H Phosphorus 3.5 Magnesium 2.1 1.9 Conclusions/Impression: Assessment And Plan: 1. Acute kidney injury on chronic kidney disease secondary to toxic ATN, r ecovered, back close to her baseline. Obstructive uropathy has been ruled out with CAT scan. I am going to continue to monitor the patient. Continue current antibiotic. 2. UTI secondary to ESBL. No obstructive uropathy. No suspected foci. Continue meropenem. We will follow up with ID. We will consult Case Management for outpatient setup for meropenem and okay from the renal standpoint for PICC line. 3. Congestive heart failure. Currently, the patient is on the normal volume. Continue current treatment. 4. Hypokalemia. We will supplement Time spent examining the patient [id number] reviewing data lab and the radiology placing order discussing the case with the patient discussing the case with the [employer] team leader including hospitalist and nursing staff more than 75 minutes
--- NOTE | 2025-01-16 11:33 | PN ---
Date of Progress Note: 01/16/2025 Subjective: The patient was admitted to the hospital with acute kidney injury, UTI secondary to ESBL , acute kidney injury was secondary to prerenal, toxic ATN. The patient after hydration, kidney func tion back close to baseline. The patient is afebrile. The patient is status post midline placement. Physical Examination: Vital Signs: Blood pressure 130/69, pulse of 55, afebrile. Chest: Clear to auscultation. Heart: S1, S2 regular. Abdomen: Soft, nontender. Extremities: Trace edema. Neurologic: Alert. No focality. Laboratory Data: WBC 8, hemoglobin 13. Sodium 142, potassium 4.5, bicarb 28, BUN 27, creatinine olya n to 1.4, GFR 37, calcium 9.4, phosphorus 3.5, magnesium 2.1, albumin 2.7, corrected calcium 10.3. Current Medications: The patient is on include meropenem 1 g b.i.d., aspirin, diphenhydramine, Eliqu is, amiodarone, carvedilol 6.25, spironolactone, gabapentin, Lasix, pantoprazole, tramadol, Entresto. Assessment And Plan: 1. Acute kidney injury secondary to prerenal, dehydration, continue to improve. Keep holding IV flui d. We will continue to monitor the patient. 2. UTI secondary to ESBL, seen by ID. Continue meropenem. Waiting for arrangement for outpatient an tibiotic. 3. Congestive heart failure. Normal volume. Continue current diuresis. 4. Hypokalemia, status post supplement, resolved. The patient cleared from the renal standpoint for discharge planning whenever antibiotic has been arranged. SCARLETT/AQUILINO Voice ID: [id number] Report ID: [id number]
--- NOTE | 2025-01-16 17:51 | P.PN ---
Subjective Date of Service: 01/16/25 Chief Complaint: ESBL of the urine Patient denies any complaint. No issues overnight Midline placed yesterday. Physical Examination - Vital Signs Temperature: 97.9 F Blood Pressure: 106/52 Pulse: 140 Respirations: 18 Pulse Ox (%): 96 - Studies Laboratory Data (last 24 hrs) 01/16/25 01/16/25 04:26 04:26 WBC 8.00 Hgb 13.0 Hct 40.6 Plt Count 359 Sodium 142 Potassium 4.5 D BUN 27 H Creatinine 1.45 H Glucose 165 H Phosphorus 3.5 Magnesium 2.1 Assessment And Plan - Plan Physical examination General: Alert and oriented x3, NAD, Heart: Heart sounds 1 and 2 normal, regular rhythm, normal rate, no pedal edema Lungs: Clear to auscultation bilaterally, adequate breath sounds bilaterally, no rhonchi or crackles. Abdomen: Soft, nondistended, nontender, normal bowel sounds. Extremities: No tenderness, no deformity Skin: Normal skin turgor, no rash, no nodules or ulcers. Neuro: No focal motor deficit. Normal speech. Psychiatry: Normal mood, no agitation. Diagnosis ESBL E. coli UTI A-fib with RVR Hypercholesterolemia GERD Fibromyalgia Systolic CHF Severe pulmonary HTN CAD s/p CABG Hypertension pacemaker/defibrillator Temporal Arteritis ESBL in urine Recurrent UTI History of recurrent ESBL UTI Continue IV meropenem Infectious disease Dr. Cabrera consulted Place midline for outpatient IV antibiotics. Antibiotic duration per Dr. Cabrera. A-fib with RVR Presence of pacemaker/defibrillator Resume home dose amiodarone and Coreg Continue telemetry. Diabetes - NIDDM -accucheck with SSI Hypercholesterolemia GERD Fibromyalgia Systolic CHF Severe pulmonary HTN CAD s/p CABG Hypertension Temporal Arteritis -Continue home medications as appropriate 01/16 Midline placed for outpatient IV antibiotics. Awaiting arrangements for outpatient antibiotics for discharge. Patient heart rate tends to fluctuate, from bradycardia to tachycardia. Continue amiodarone and Coreg. Cardiology consult for tachyarrhythmia. Monitor and optimize electrolytes. DVT ppx: Patient is on Eliquis Advance directive: full code
[2025-01-17 04:57] LABS: Absolute Basophils 0.1 K/uL (0-0.5); Absolute Eosinophils 0.3 K/uL (0-0.5); Absolute Lymphocytes (CBC) 0.9 K/uL (0.7-4.9); Absolute Monocytes 0.6 K/uL (0.1-1.3); Absolute Neutrophil 8.2 K/uL (1.8-8.0); Basophils % 0.8 % (0-1.3); Eosinophils % 3.1 % (0-4.4); Hematocrit 41.8 % (36.0-45.0); Hemoglobin 13.1 g/dL (12.0-15.0); Lymphocytes % 8.7 % (15.3-44.8); MCH 27.8 pg (27.0-35.0); MCHC 31.3 g/dL (32.0-36.0); MCV 88.9 fL (80-100); MPV 7.7 fL (7.6-11.3); Monocytes % 6.1 % (3.3-12.3); Neutrophils % 81.3 % (41.7-73.7); Nucleated Red Blood Cells % 0.1 % (0-0); Platelets 334 thou/uL (152-406)
[2025-01-17 05:54] LABS: Albumin 2.6 g/dL (3.4-5.0); Anion Gap 10.6 mEq/L (5.0-15.0); Phosphorus 2.8 mg/dL (2.5-4.9); Potassium 4.6 mEq/L (3.5-5.1)
--- NOTE | 2025-01-17 12:58 | PN ---
Date of Progress Note: 01/17/2025 Subjective: The patient was admitted with UTI ESBL. The patient on meropenem had acute kidney injur y secondary to toxic ATN, recovered. Physical Examination: Vital Signs: Blood pressure 130/60, pulse of 50, afebrile. Chest: Clear to auscultation. Heart: S1, S2. Systolic murmur. Abdomen: Soft, nontender. Extremities: No edema. Neurologic: Alert. No focality. Laboratory Data: WBC 10.1, hemoglobin 13.1. Sodium 141, potassium 4.6, bicarb 28, BUN 27, creatinin e 1.4, GFR 36, calcium 9.3. Assessment And Plan: 1. Acute kidney injury secondary to toxic ATN, recovered. We will continue current treatment. 2. UTI secondary to ESBL. Continue antibiotic. We will follow up with primary. 3. Hypertension, controlled, optimal. Continue current treatment. 4. Congestive heart failure with pulmonary hypertension, stable. SCARLETT/AQUILINO Voice ID: [id number] Report ID: [id number]
[2025-01-17] MEDS: ERTAPENEM SODIUM 1 GM VIAL IVPB ONE (14:53)
--- NOTE | 2025-01-17 16:39 | P.DS ---
Admission Date: 01/14/25 Discharge Date: 01/17/25 Disposition: DC HOME/HOME HEALTH CARE Discharge Condition: FAIR Reason for Admission: ESBL of the urine Brief History of Present Illness: 79 year old woman with history of diabetes - NIDDM, Hypercholesterolemia, GERD, Fibromyalgia, DM-NIDDM, Atrial Fib, CAD s/p CABG, Systolic CHF, Severe pulmonary HTN, Hypertension, pacemaker/defibrillator, Temporal Arteritis, was asked to come to the hospital for direct admission due to urine culture growing ESBL Ecoli. She reports coming to the ED on 01/12 for renal failure at which time a urine culture was taken. Urine culture grew ESBL E. coli. Patient nutrition technician Dr. Lynn referred patient to be deadly admitted for IV meropenem. She reported urinary symptoms of burning and frequency. Hospital Course: Diagnosis ESBL E. coli UTI A-fib with RVR Hypercholesterolemia GERD Fibromyalgia Systolic CHF Severe pulmonary HTN CAD s/p CABG Hypertension pacemaker/defibrillator Temporal Arteritis Patient admitted to the medical floor and the following medical problems addressed: ESBL in urine Recurrent UTI History of recurrent ESBL UTI Patient was treated with IV meropenem Infectious disease Dr. Cabrera evaluated patient and assisted with management Midline placed for outpatient IV antibiotics. Antibiotic duration per Dr. Cabrera. Patient discharged with a 7-day course of Invanz. A-fib with RVR Presence of pacemaker/defibrillator Continue home dose amiodarone and Coreg Patient had some episodes of bradycardia however has has AICD/PPM Diabetes - NIDDM Managed with insulin sliding scale Hypercholesterolemia GERD Fibromyalgia Systolic CHF Severe pulmonary HTN CAD s/p CABG Hypertension Temporal Arteritis Continued home medications as appropriate Vital Signs/Physical Exam: Temp Pulse Resp BP Pulse Ox 98.4 F 61 18 136/62 97 01/17/25 12:00 01/17/25 12:00 01/17/25 12:00 01/17/25 12:00 01/17/25 12:00 General: Alert, In no apparent distress, Oriented x3 HEENT: Mucous membr. moist/pink, Sclerae nonicteric Neck: JVD not distended Respiratory: Clear to auscultation bilaterally, Normal air movement Gastrointestinal: Normal bowel sounds, Soft and benign, Non-distended Musculoskeletal: No swelling Integumentary: No cyanosis Neurological: Normal strength at 5/5 x4 extr Laboratory Data at Discharge: WBC 10.10 thou/uL (4.3-10.9) 01/17/25 04:28 Hgb 13.1 g/dL (12.0-15.0) 01/17/25 04:28 Hct 41.8 % (36.0-45.0) 01/17/25 04:28 Plt Count 334 thou/uL (152-406) 01/17/25 04:28 Sodium 141 mEq/L (136-145) 01/17/25 04:28 Potassium 4.6 mEq/L (3.5-5.1) 01/17/25 04:28 BUN 27 mg/dL (7-18) H 01/17/25 04:28 Creatinine 1.49 mg/dL (0.55-1.02) H 01/17/25 04:28 Glucose 157 mg/dL (74-106) H 01/17/25 04:28 Phosphorus 2.8 mg/dL (2.5-4.9) 01/17/25 04:28 Magnesium 2.0 mg/dL (1.6-2.4) 01/17/25 04:28 Home Medications: Duloxetine [Cymbalta *] 60 mg PO DAILY 01/20/18 Omeprazole 40 mg PO DAILY 01/20/18 Spironolactone 1 tab PO DIRECTED 06/06/23 Amiodarone HCl [Cordarone*] 100 mg PO DAILY 10/22/23 Apixaban [Eliquis *] 5 mg PO BID 10/22/23 Bethanechol Chloride 10 mg PO TID 10/22/23 Gabapentin [Neurontin*] 200 mg PO BID 10/22/23 carvediloL [Coreg*] 6.25 mg PO BID 10/22/23 Ropinirole HCl [Requip*] 0.5 mg PO BEDTIME tab 11/03/23 Docusate [Colace Cap*] 100 mg PO BID 11/04/23 Lactobacillus Acidophilus [Acidophilus Lactobacilli] 1 cap PO BID 11/04/23 Acetam/Caff/Butal [Fioricet*] 1 tab PO Q4H PRN 06/28/24 Furosemide [Lasix] 40 mg PO DAILY 06/28/24 Sacubitril/Valsartan [Entresto 97 mg-103 mg Tablet] 1 each PO BID 06/28/24 Aspirin [Vazalore] 81 mg PO DAILY 01/14/25 Benzonatate 100 mg PO PRN 01/14/25 Dapagliflozin Propanediol [Farxiga] 10 mg PO DAILY 01/14/25 Latanoprost Ophth [Xalatan 0.005%*] 1 gtt OPTH BEDTIME 01/14/25 Melatonin 10 mg PO BEDTIME PRN PRN 01/14/25 [place]-3 Fatty Acids [[place]-3] 2,000 mg PO DAILY 01/14/25 Prednisone [Olena] 5 mg PO DAILY 01/14/25 Rosuvastatin Calcium 5 mg PO BEDTIME 01/14/25 Tramadol HCl [Ultram] 50 mg PO PRN 01/14/25 Vitamin B Complex [B Complex] 5 mg PO DAILY 01/14/25 Diet: AHA Activity: Ad barbara Followup: Alfred Kingsley DO [ACTIVE - CAN ADMIT] - 1 Week Time spent managing pt's care (in minutes): 36
[2025-01-17] MEDS: ERTAPENEM NA 1 GM in NA CHLORIDE 0.9% 100 ML IVPB SCH (17:08)
[2025-01-17 18:07] VITALS: BP 130/71; TEMP 97.9
--- NOTE | 2025-01-17 23:43 | PN ---
Subjective: The patient lying in bed. No new acute event. Denies any fever, chest pain, abdominal pain, problems with antibiotic. Objective: Vital Signs: Temperature 97.9, pulse 58, respirations 18, blood pressure 130/71. Lungs: Basal crackles. Heart: S1, S2. Regular. Abdomen: Soft, nontender. Bowel sounds present. Extremities: Trace edema. Laboratory Data: Shows WBC 10, down from 11.3; hemoglobin 13.1; platelets are 334. Chemistry shows BUN of 27, creatinine 1.49. The patient is currently off antibiotic. Assessment And Plan: 1. Urinary tract infection secondary to Escherichia coli, extended-spectrum beta-lactamase. Recommen d 7 days of antibiotic. 2. Diabetes mellitus. 3. Leukocytosis, improved. 4. Renal insufficiency. 5. Hyperglycemia. We will monitor signs of infection with WBC and fever trends. NF/MODL Voice ID: [id number] Report ID: [id number]
--- NOTE | 2025-01-23 13:13 | EKG ---
Test Date: 2025-01-15 Test Time: 10:58:33 Pharmacy Customer Care Specialist: JALEEL MEASUREMENT RESULTS: Intervals: Rate: 154 [place]: QRSD: 68 QT: 198 QTc: 317 [place]: P: [place]: QRS: 30 T: 175 INTERPRETIVE STATEMENTS: Atrial fibrillation with rapid ventricular response with premature ventricular or aberrantly conducted complexes Low voltage QRS Nonspecific ST and T wave abnormality, probably digitalis effect Abnormal ECG Compared to ECG 01/12/2025 11:20:24 Low QRS voltage now present ST (T wave) deviation now present Ventricular-paced complex(es) or rhythm no longer present Uncertain supraventricular rhythm no longer present Atrial premature complex(es) no longer present Myocardial infarct finding no longer present T-wave abnormality no longer present Possible ischemia no longer present Electronically Signed On 01-23-25 12:51:21 CDT by Haseeb Ferrell
== END 2025-01-17 19:30 | disposition home health service (06) | DRG 689 ==
LOC: 2ND 14:25
PROVIDERS: ADMIT Hospitalist; ATTEND Internal Medicine
PROC: 02HV33Z Insertion of Infusion Device into Superior Vena Cava, Percutaneous Approach (ICD-10-PCS; principal; 2025-01-15)
DX: N39.0 Urinary tract infection, site not specified (principal); N17.0 Acute kidney failure with tubular necrosis; Z16.12 Extended spectrum beta lactamase (ESBL) resistance; Z16.20 Resistance to unspecified antibiotic; I50.32 Chronic diastolic (congestive) heart failure; I13.0 Hypertensive heart and chronic kidney disease with heart failure and stage 1 through stage 4 chronic kidney disease, or unspecified chronic kidney disease; N18.9 Chronic kidney disease, unspecified; E11.22 Type 2 diabetes mellitus with diabetic chronic kidney disease; E11.65 Type 2 diabetes mellitus with hyperglycemia; M79.7 Fibromyalgia; E78.00 Pure hypercholesterolemia, unspecified; M31.6 Other giant cell arteritis; E87.6 Hypokalemia; K21.9 Gastro-esophageal reflux disease without esophagitis; E86.0 Dehydration; I27.20 Pulmonary hypertension, unspecified; I48.91 Unspecified atrial fibrillation; I25.10 Atherosclerotic heart disease of native coronary artery without angina pectoris; F17.200 Nicotine dependence, unspecified, uncomplicated; B96.20 Unspecified Escherichia coli [E. coli] as the cause of diseases classified elsewhere; Z95.1 Presence of aortocoronary bypass graft; Z95.810 Presence of automatic (implantable) cardiac defibrillator; Z91.014 Allergy to mammalian meats; Z91.013 Allergy to seafood; Z79.01 Long term (current) use of anticoagulants; Z79.02 Long term (current) use of antithrombotics/antiplatelets; Z79.899 Other long term (current) drug therapy; Z79.84 Long term (current) use of oral hypoglycemic drugs; Z96.651 Presence of right artificial knee joint; Z60.2 Problems related to living alone; Z79.82 Long term (current) use of aspirin
CPT/HCPCS: 36415; 71045; 74176; 80048; 80069; 80076; 81001; 83735; 84100; 84484; 85025; 87040; 87077; 87086; 87088; 87186; 93005; 96361; 96365; 99285; J0696; J1335; J1644; J2185; J7030; J7512

== ENCOUNTER 2025-04-23 19:08 | Inpatient (IN) | payer OTHER ==
[2025-04-23 20:56] LABS: Absolute Lymphocytes (CBC) 0.6 K/uL (0.7-4.9); Hematocrit 39.2 % (36.0-45.0); Hemoglobin 12.5 g/dL (12.0-15.0); MCH 28.8 pg (27.0-35.0); MCHC 31.8 g/dL (32.0-36.0); MCV 90.7 fL (80-100); MPV 7.1 fL (7.6-11.3); Nucleated RBC Absolute Count 0.0 (0-0); Nucleated Red Blood Cells % 0.1 % (0-0); RBC Red Blood Cell Count 4.32 M/uL (3.86-4.86); White Blood Count 10.50 thou/uL (4.3-10.9)
[2025-04-23 21:11] LABS: Anion Gap 9.2 mEq/L (5.0-15.0); BUN Blood Urea Nitrogen 36.0 mg/dL (7-18); Glucose Level 136.0 mg/dL (74-106); Potassium 5.2 mEq/L (3.5-5.1)
--- NOTE | 2025-04-23 21:39 | RAD REPORT ---
Procedure: Chest Single View HISTORY: Leukocytosis COMPARISON: March 2025 FINDINGS: The lungs appear clear of acute infiltrate. No significant pleural effusion noted. The heart is mildly to moderately enlarged. Pacemaker leads in place. Post surgical changes involve t he chest. IMPRESSION: No acute abnormality is displayed.
--- NOTE | 2025-04-23 22:00 | EDPHYS ---
Physician Documentation [facility] Name: Jelly Garcia Age: 79 yrs Sex: Female : 1945 Arrival Date: 04/23/2025 Time: 19:08 Bed 13 Private MD: Alfred Kingsley ED Physician Vonda Angelo HPI: 04/23 19:34 This 79 yrs old Female presents to ER via Wheelchair with complaints of Abnormal Lab kb Results. 19:34 Pt is a 79 year old female who states she was called by Dr Lynn and told to come to the kb ER for abnormal labs. Pt states she is not sure which labs were abnormal. Denies any symptoms, states she has been tired for about 3 years. . Historical: - Allergies: 19:28 Pork/Porcine Containing Products; me1 19:28 shellfish derived; me1 - PMHx: 19:28 Atrial Fib; CHF; Diabetes - NIDDM; diabetes mellitus; Fibromyalgia; GERD; me1 Hypercholesterolemia; Hypertension; pacemaker/defibrillator; Temporal Arteritis; ckd (Temporal Arteritis); - PSHx: 19:28 Pacemaker/Defibrillator; right knee surgery; me1 - Immunization history:: Adult Immunizations unknown. - Infectious Disease History:: Denies. - Social history:: Smoking status: Patient denies any tobacco usage or history of. ROS: 19:33 Constitutional: As per HPI kb Exam: 19:33 Constitutional: This is a well developed, well nourished patient who is awake, alert, kb and in no acute distress. Head/Face: Normocephalic, atraumatic. ENT: Moist Mucous membranes Cardiovascular: Regular rate Respiratory: Respirations even and unlabored. No increased work of breathing. Talking in full sentences Abdomen/GI: Soft, non-tender. No distention Skin: Warm, dry with normal turgor. Normal color. MS/ Extremity: Pulses equal, no cyanosis. Neurovascular intact. Full, normal range of motion. Neuro: Awake and alert, GCS 15, oriented to person, place, time, and situation. Vital Signs: 19:27 BP 136 / 57; Pulse 62; Resp 18; Temp 98.1; Pulse Ox 94% ; Weight 92.53 kg; Height 4 ft. me1 11 in. ; Pain 0/10; 20:30 BP 135 / 71; Pulse 59; Resp 20; Pulse Ox 100% on R/A; kj2 21:30 BP 153 / 58; Pulse 59; Resp 20; Pulse Ox 100% ; kj2 22:30 BP 149 / 56; Pulse 59; Resp 20; Temp 98.1; Pulse Ox 100% on R/A; kj2 19:27 Body Mass Index 41.20 (92.53 kg, 149.86 cm) me1 19:27 Pain Scale: Adult me1 MDM: 19:16 Medical Screening Exam initiated kb 20:30 Differential diagnosis: uti, abnormal electrolytes, pneumonia, renal failure. Data kb reviewed: vital signs, nurses notes. Consideration of Admission/Observation Patient was admitted/placed on observation. Escalation of care including admission/observation considered. Management of patient was discussed with the following: Restaurant Hostess: Dr Lynn. Marlon pt checked for pneumonia and UTI, then admitted for observation for acute on chronic renal failure with a consult for Dr Go . External Records Reviewed: Outpatient labs: cbc, cmp, bnp done on 04/16 at [facility] reviewed on pt's phone. Counseling: I had a detailed discussion with the patient and/or guardian regarding the historical points, exam findings, and any diagnostic results supporting the discharge/admit diagnosis, lab results, radiology results, the need for further work-up and treatment in the hospital. 21:59 Management of patient was discussed with the following: Hospitalist: VIN Rivera accepts pt for admission under Dr Friedman. 04/23 19:58 Order name: CBC with Diff; Complete Time: 20:59 kb 04/23 19:58 Order name: BMP; Complete Time: 21:11 kb 04/23 20:30 Order name: UA Rfx Dedrick Cult if indicated; Complete Time: 22:34 kb 04/23 22:36 Order name: Urine Culture EDMS 04/23 20:30 Order name: Chest Single View XRAY; Complete Time: 21:42 kb 04/23 19:58 Order name: IV Start; Complete Time: 20:52 kb Administered Medications: 22:54 Drug: NS 0.9% IV 1000 ml IV at 75 ml/hr once Route: IV; Rate: 75 ml/hr; Site: left kj2 antecubital; 04/24 00:16 Follow up: IV Status: Completed infusion kj2 Disposition Summary: 04/23/25 21:59 Hospitalization Ordered Notes: Hospitalization Status: Observation kb Provider: Elias Friedman Location: Telemetry/MedSurg (observation) kb Condition: Stable kb Problem: new kb Symptoms: are unchanged kb Bed/Room Type: Standard Room Assignment: 211(04/23/25 23:11) rv1 Diagnosis - Acute kidney failure, unspecified - acute on chronic kb Forms: - Medication Reconciliation Form kb - SBAR form kb - Leadership Thank You Letter kb Signatures: Dispatcher [employer] EDAL Libertad Hood, POWER TECHNICIAN-C POWER TECHNICIAN-Georgie Hoff rv1 Lauren Kurtz, RN RN me1 Coleen Corbin, SAQIB RN kj2 Corrections: (The following items were deleted from the chart) 04/23 20:30 20:30 Chest Single View+RAD.RAD.BRZ ordered. EDAL EDAL 23:11 21:59 kb rv1
--- NOTE | 2025-04-23 22:00 | ER ---
Nurse's Notes [facility] Name: Jelly Garcia Age: 79 yrs Sex: Female : 1945 Arrival Date: 04/23/2025 Time: 19:08 Bed 13 Private MD: Alfred Kingsley Diagnosis: Acute kidney failure, unspecified-acute on chronic Presentation: 04/23 19:27 Chief complaint: Patient states: Sent by Dr Lynn for abnormal lab results. Coronavirus me1 screen: Vaccine status: Patient reports being unvaccinated. Ebola Screen: No symptoms or risks identified at this time. Initial Sepsis Screen: Does the patient meet any 2 criteria? No. Patient's initial sepsis screen is negative. Does the patient have a suspected source of infection? No. Patient's initial sepsis screen is negative. Risk Assessment: Do you want to hurt yourself or someone else? Patient reports no desire to harm self or others. Onset of symptoms is unknown. 19:27 Method Of Arrival: Wheelchair me1 19:27 Acuity: BRIAN 3 me1 Historical: - Allergies: 19:28 Pork/Porcine Containing Products; me1 19:28 shellfish derived; me1 - PMHx: 19:28 Atrial Fib; CHF; Diabetes - NIDDM; diabetes mellitus; Fibromyalgia; GERD; me1 Hypercholesterolemia; Hypertension; pacemaker/defibrillator; Temporal Arteritis; ckd (Temporal Arteritis); - PSHx: 19:28 Pacemaker/Defibrillator; right knee surgery; me1 - Immunization history:: Adult Immunizations unknown. - Infectious Disease History:: Denies. - Social history:: Smoking status: Patient denies any tobacco usage or history of. Screenin:30 [facility] ED Fall Risk Assessment (Adult) History of falling in the last 3 months, kj2 including since admission No falls in past 3 months (0 pts) Confusion or Disorientation No (0 pts) Intoxicated or Sedated No (0 pts) Impaired Gait No (0 pts) Mobility Assist Device Used No (0 pt) Altered Elimination No (0 pt) Score/Fall Risk Level 0 - 2 = Low Risk Maintained a safe environment, Hourly rounding (assess needs \T\ fall precautionary measures) done. Abuse screen: Denies threats or abuse. Denies injuries from another. Nutritional screening: No deficits noted. Tuberculosis screening: No symptoms or risk factors identified. Assessment: 19:30 General: Appears in no apparent distress. Behavior is cooperative. Neuro: Level of kj2 Consciousness is awake, alert, obeys commands, Oriented to person, place, time, situation. Cardiovascular: Patient's skin is warm and dry. Respiratory: Airway is patent Respiratory effort is unlabored. GI: No signs and/or symptoms were reported involving the gastrointestinal system. : No signs and/or symptoms were reported regarding the genitourinary system. 20:30 Reassessment: Patient appears in no apparent distress at this time. Patient and/or kj2 family updated on plan of care and expected duration. Pain level reassessed. Patient is alert, oriented x 3, equal unlabored respirations, skin warm/dry/pink. 21:30 Reassessment: Patient appears in no apparent distress at this time. Patient and/or kj2 family updated on plan of care and expected duration. Pain level reassessed. Patient is alert, oriented x 3, equal unlabored respirations, skin warm/dry/pink. 22:15 Reassessment: Patient appears in no apparent distress at this time. Patient and/or kj2 family updated on plan of care and expected duration. Pain level reassessed. Patient is alert, oriented x 3, equal unlabored respirations, skin warm/dry/pink. 23:15 Reassessment: Patient appears in no apparent distress at this time. Patient and/or kj2 family updated on plan of care and expected duration. Pain level reassessed. Patient is alert, oriented x 3, equal unlabored respirations, skin warm/dry/pink. 04/24 00:00 Reassessment: Patient appears in no apparent distress at this time. Patient and/or kj2 family updated on plan of care and expected duration. Pain level reassessed. Patient is alert, oriented x 3, equal unlabored respirations, skin warm/dry/pink. Vital Signs: 04/23 19:27 BP 136 / 57; Pulse 62; Resp 18; Temp 98.1; Pulse Ox 94% ; Weight 92.53 kg; Height 4 ft. me1 11 in. ; Pain 0/10; 20:30 BP 135 / 71; Pulse 59; Resp 20; Pulse Ox 100% on R/A; kj2 21:30 BP 153 / 58; Pulse 59; Resp 20; Pulse Ox 100% ; kj2 22:30 BP 149 / 56; Pulse 59; Resp 20; Temp 98.1; Pulse Ox 100% on R/A; kj2 19:27 Body Mass Index 41.20 (92.53 kg, 149.86 cm) me1 19:27 Pain Scale: Adult me1 ED Course: 19:10 Patient arrived in ED. rg4 19:10 Alfred Kingsley DO is Private Physician. rg4 19:15 Libertad Hood [facility]C [facility] kb 19:15 Vonda Angelo MD is Attending Physician. kb 19:28 Triage completed. me1 19:29 Arm band placed on Patient placed in an exam room. me1 19:30 Patient has correct armband on for positive identification. Bed in low position. Call kj2 light in reach. Provided Education on: call light. 20:17 Dulce Cardona, RN is Primary Nurse. ss12 20:52 BMP Sent. kj2 20:52 CBC with Diff Sent. kj2 20:52 Inserted saline lock: 20 gauge in left antecubital area, using aseptic technique. Blood kj2 collected. Flushed with 10 mL NS. 21:11 Chest Single View XRAY In Process Unspecified. EDMS 21:59 Elias Friedman is Hospitalizing Provider. kb 22:15 UA Rfx Dedrick Cult if indicated Sent. kj2 23:29 No provider procedures requiring assistance completed. kj2 Administered Medications: 22:54 Drug: NS 0.9% IV 1000 ml IV at 75 ml/hr once Route: IV; Rate: 75 ml/hr; Site: left kj2 antecubital; 04/24 00:16 Follow up: IV Status: Completed infusion kj2 Medication: 04/23 23:29 VIS not applicable for this client. kj2 Outcome: 21:59 Decision to Hospitalize by Provider. kb 04/24 00:44 Patient left the ED. kj2 Signatures: Dispatcher [employer] EDMS Libertad Hood FNP-C FNP-Ckb Garcia, Rubi rg4 Lauren Kurtz, RN RN me1 Coleen Corbin, RN RN kj2 Dulce Cardona RN RN ss12
[2025-04-23 22:29] LABS: Sqamous Epithelial <5 /HPF (None Seen); Urine Culture Reflex Order REFLEXED; Urine Microscopic Reflex YN ORDER UMIC
[2025-04-23] MEDS ORDERED: NA CHLORIDE 0.9% 1,000 ML ONE (22:35)
[2025-04-23] MEDS ORDERED: ACETAMINOPHEN 500 MG TAB PO PRN (23:07)
--- NOTE | 2025-04-23 23:13 | P.HP ---
Certification for Inpatient Patient admitted to: Observation With expected LOS: <2 Midnights Patient will require the following post-hospital care: None Practitioner: I am a practitioner with admitting privileges, knowledge of patient current condition, hospital course, and medical plan of care. Services: Services provided to patient in accordance with Admission requirements found in Title 42 Section 412.3 of the Code of Federal Regulations Patient History Date of Service: 04/23/25 Reason for admission: AUDREY, UTI. History of Present Illness: Patient is a pleasant 79-year-old female with past medical history of CHF, giant cell arteritis, fibromyalgia, essential tremor, osteomyelitis spine, brain tumor benign, asthma, sent to the ER by motorcycle racer Dr. Lynn due to elevated BUN, creatinine, and low GFR. Patient states she went to see her PCP , states blood work was done, states today the result of the blood work was sent to her motorcycle racer Dr. Lynn, she called the patient today and instructed her to go to the ER for further workup and management. According to report received from ER JOINT TERMINAL ATTACK CONTROLLER, she states Dr. Lynn wants patient to be admitted, IV fluids, and consult Dr. Go. Patient BUN 36, creatinine 2.42, GFR 20. Patient states she is still able to void. No peripheral edema noted, lung sounds bilateral with no adventitious breath sounds, respirations even and nonlabored. Patient denies of any chest pain, shortness of breath, nausea or vomiting, abdominal pain.. Course in ER: Patient had a chest x-ray, impression: No acute abnormality is displayed. Allergies shellfish derived Allergy (Unknown, Verified 04/07/24 21:47) unknown Pork/Porcine Containing Products Allergy (Verified 04/07/24 21:47) unknown Home Medications: Duloxetine [Cymbalta *] 60 mg PO DAILY 01/20/18 Omeprazole 40 mg PO DAILY 01/20/18 Spironolactone 1 tab PO DIRECTED 06/06/23 Amiodarone HCl [Cordarone*] 100 mg PO DAILY 10/22/23 Apixaban [Eliquis *] 5 mg PO BID 10/22/23 Bethanechol Chloride 10 mg PO TID 10/22/23 Gabapentin [Neurontin*] 200 mg PO BID 10/22/23 carvediloL [Coreg*] 6.25 mg PO BID 10/22/23 Ropinirole HCl [Requip*] 0.5 mg PO BEDTIME tab 11/03/23 Docusate [Colace Cap*] 100 mg PO BID 11/04/23 Lactobacillus Acidophilus [Acidophilus Lactobacilli] 1 cap PO BID 11/04/23 Acetam/Caff/Butal [Fioricet*] 1 tab PO Q4H PRN 06/28/24 Furosemide [Lasix] 40 mg PO DAILY 06/28/24 Sacubitril/Valsartan [Entresto 97 mg-103 mg Tablet] 1 each PO BID 06/28/24 Aspirin [Vazalore] 81 mg PO DAILY 01/14/25 Benzonatate 100 mg PO PRN 01/14/25 Dapagliflozin Propanediol [Farxiga] 10 mg PO DAILY 01/14/25 Latanoprost Ophth [Xalatan 0.005%*] 1 gtt OPTH BEDTIME 01/14/25 Melatonin 10 mg PO BEDTIME PRN PRN 01/14/25 Chandler-3 Fatty Acids [Chandler-3] 2,000 mg PO DAILY 01/14/25 Prednisone [Olena] 5 mg PO DAILY 01/14/25 Rosuvastatin Calcium 5 mg PO BEDTIME 01/14/25 Tramadol HCl [Ultram] 50 mg PO PRN 01/14/25 Vitamin B Complex [B Complex] 5 mg PO DAILY 01/14/25 - Past Medical/Surgical History Diabetic: Yes -: fibromyalgia -: Chronic diastolic congestive heart failure -: HTN -: brain tumor- 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 rebuilt surg -: fibroid sx -: hysterectomy -: Pacemaker, CABG 2022 Psychosocial/ Personal History: Lives at home alone, family frequently check on her, has home health - Family History Sister -: Heart disease, Hypertension Notes: additional sister with arthritis Father -: Cancer Notes: lung Mother -: Cancer Notes: colon - Social History Alcohol use: Yes CD- Drugs: Yes Caffeine use: Yes Physical Examination - Studies Laboratory Data (last 24 hrs) 04/23/25 04/23/25 20:50 20:50 WBC 10.50 Hgb 12.5 Hct 39.2 Plt Count 341 Sodium 140 Potassium 5.2 H BUN 36 H Creatinine 2.42 H Glucose 136 H Assessment and Plan - Advance Directives Does patient have a Living Will: No Does patient have a Durable POA for Healthcare: No
[2025-04-24] MEDS: CEFTRIAXONE 1,000 MG in NA CHLORIDE 0.9% 50 ML IVPB SCH (01:37)
[2025-04-24] MEDS: Ringers Lactate 1,000 ML IV SCH (01:40)
[2025-04-24] MEDS: HEPARIN 5000 UNIT/ML 1 ML VIAL SQ SCH (01:40)
[2025-04-24 01:58] VITALS: BMI 41.9
[2025-04-24 02:47] VITALS: O2SAT 100
[2025-04-24 05:24] LABS: Absolute Lymphocytes (CBC) 0.7 K/uL (0.7-4.9); Hematocrit 39.1 % (36.0-45.0); Hemoglobin 12.6 g/dL (12.0-15.0); MCH 29.2 pg (27.0-35.0); MCHC 32.3 g/dL (32.0-36.0); MCV 90.4 fL (80-100); MPV 7.0 fL (7.6-11.3); Nucleated RBC Absolute Count 0.0 (0-0); Nucleated Red Blood Cells % 0.3 % (0-0); RBC Red Blood Cell Count 4.32 M/uL (3.86-4.86); White Blood Count 8.60 thou/uL (4.3-10.9)
[2025-04-24 05:40] LABS: ALT/SGPT 17 U/L (13-56); Albumin 2.8 g/dL (3.4-5.0); Albumin/Globulin Ratio 0.8 (1.1-1.8); Alkaline Phosphatase 71 U/L (45-117); Anion Gap 7.9 mEq/L (5.0-15.0); BUN Blood Urea Nitrogen 33 mg/dL (7-18); Globulin 3.7 g/dL (2.3-3.5); Glucose Level 165 mg/dL (74-106); Potassium 3.9 mEq/L (3.5-5.1)
[2025-04-24 05:43] LABS: AST/SGOT < 10 U/L (15-37)
[2025-04-24 06:00] LABS: Differential Total Cells Count 100; Segmented Neutrophils 63 % (40-80)
[2025-04-24 06:01] LABS: Blood Morphology Comment NOT SEEN (NOT SEEN)
[2025-04-24] MEDS: INSULIN REGULAR (HUMAN) 100 UNIT/ML SQ SCH (07:30)
[2025-04-24] MEDS ORDERED: MELATONIN 5 MG TABLET PO PRN (09:30)
[2025-04-24] MEDS: HOME MED 1 EA UNK (Omeprazole [Omeprazole] 20 MG Capsule.Dr) PO SCH (09:32)
[2025-04-24] MEDS: HYDROXYCHLOROQUINE 200MG TAB PO SCH (11:02)
[2025-04-24] MEDS: AMIODARONE HCL 200 MG TAB PO SCH (11:02)
[2025-04-24] MEDS: DULOXETINE 30 MG CAP PO SCH (11:02)
[2025-04-24] MEDS: PANTOPRAZOLE 40MG TABLET PO SCH (11:02)
[2025-04-24] MEDS: GABAPENTIN 100 MG CAP PO SCH (11:02)
[2025-04-24] MEDS: NA CHLORIDE 0.9% 1,000 ML IV SCH (11:03)
[2025-04-24] MEDS: HYDROCODONE/APAP 5/325 MG TAB PO PRN (11:06)
--- NOTE | 2025-04-24 12:23 | CON ---
Date of Consultation: 04/24/2025 Reason For Consultation: Elevated BUN and creatinine. History Of Present Illness: This is a pleasant 79-year-old female, well known to me from the office with significant past medical history of chronic kidney disease, follows up with Dr. Lynn, baseline c reatinine 1.5 with GFR of 36; CAD, complicated with congestive heart failure, diastolic dysfunction; fibromyalgia. The patient came to the hospital complaining of weakness and fatigue. Done lab with h er PCP, found elevation in creatinine. For that reason, referred back to Dr. Lynn. Advised to be ad mitted to the hospital. Upon arrival to the hospital, creatinine 2.4 and BUN 36. The patient was st arted on hydration. GFR was 20. Kidney function had over the night improved. Creatinine down to 2. 1 with GFR 22. The patient is slightly better. The patient had hyperkalemia with potassium 5.2, cur rently normalized. The patient denied taking any nonsteroidal. The patient still has nausea without any vomiting. Past Medical History: Includes: 1. Chronic kidney disease stage 3B secondary to hypertension nephrosclerosis. 2. Parkinson disease. 3. Diabetes, complicated with neuropathy and nephropathy. 4. CAD, complicated with congestive heart failure, diastolic dysfunction, preserved ejection fraction . 5. Fibromyalgia. Past Surgical History: Includes: 1. ICD placement. 2. Fibroid removal. 3. Hysterectomy. 4. CABG. 5. Left jaw cyst removal. 6. Hernia repair. Family History: Positive for hypertension, CAD, and cancer. Social History: Denied smoking. Denied drinking. Denied drug abuse. Review of Systems: Head and Neck: No red eye. No ear pain. GI: Has nausea. No vomiting. Decreased intake. : No polyuria. No dysuria. No hematuria. CRYSTAL ATTACHER: No vaginal discharge. Respiratory: No shortness of breath. Cardiovascular: No chest pain. Endocrine: No polydipsia. Skin: No rash. Neuro: Has neuropathy. Musculoskeletal: No joint pain. Allergies: TO SHELLFISH AND PORK. Current Medications: Include Cymbalta, omeprazole, spironolactone, amiodarone, Eliquis, gabapentin, carvedilol, Requip, docusate, Entresto, aspirin, melatonin, omega-3, prednisone, tramadol, vitamin D. Physical Examination: General: When I saw the patient, the patient was lying in bed, comfortable. Vital Signs: Blood pressure of 138/65, pulse of 63. Chest: Clear to auscultation. Heart: S1, S2. Systolic murmur. Abdomen: Soft, nontender. Extremities: No edema. Neurologic: Alert. No focality. Laboratory Data: Back on April 01, creatinine 1.9, GFR of 26. Upon admission, potassium 5.2, creat inine 2.4, GFR of 20. Today, lab data: Sodium 144, potassium 3.9, bicarb 30, BUN 33, creatinine 2.1 , GFR 22. Calcium of 7.9, corrected calcium is 8.7. Current Medications: The patient is on include ceftriaxone, Plaquenil, aspirin, Eliquis, carvedilol, amiodarone, Tylenol, gabapentin, LR at 50 per hour, insulin. Assessment And Plan: 1. Acute kidney injury secondary to prerenal/toxic acute tubular necrosis, on the recovery phase with the presence of hyperkalemia. I am going to go ahead and continue on the IV fluid. I will change I V fluid to normal saline and we will follow up the patient. 2. Keep holding Entresto, and we will follow up on the response. 3. Hypertension with the presence of acute kidney injury. Hold Entresto. 4. Hyperkalemia secondary to renal failure. Discontinue LR. Start on normal saline. 5. Congestive heart failure, diastolic dysfunction, currently normal volume. We will continue hydrat ion. 6. Urinary tract infection. Continue on antibiotic. We will follow up culture. Time spent examining the patient [id number]; reviewing data, lab, and radiology; placing order; dis cussing the case with the patient; discussing the case with the steamer blocker, including hospitalist clarisse d nursing staff more than 75 minutes. JEMAL Voice ID: [id number] Report ID: [id number]
[2025-04-24] MEDS: BETHANECHOL 10 MG TAB PO SCH (14:00)
--- NOTE | 2025-04-24 16:59 | RAD REPORT ---
EXAMINATION: US RENAL ULTRASOUND CLINICAL INDICATION: AUDREY TECHNIQUE: Real-time ultrasonography of the abdomen was performed. COMPARISON: 01/12/2025 CT FINDINGS: RIGHT KIDNEY: Right renal length measurement: 8.5 x 4.7 x 4.6 cm. Normal in echogenicity and size. No calculus, solid mass or hydronephrosis. Benign right renal cysts, including parapelvic cysts measuring 15 mm. LEFT KIDNEY: Left renal length measurement: 8.5 x 5.8 x 4.9 cm. Normal in echogenicity and size. No c alculus, solid mass or hydronephrosis. URINARY BLADDER: Incompletely distended without gross abnormality detected. IMPRESSION: Benign right renal cysts, otherwise negative study.
[2025-04-24] MEDS: LATANOPROST 0.005% 2.5ML OPTH OPTH SCH (21:00)
[2025-04-24] MEDS: LACTOBACILLUS/ACIDOPHILUS TAB PO SCH (21:54)
[2025-04-24] MEDS: ROSUVASTATIN 5 MG TAB PO SCH (21:54)
[2025-04-24] MEDS: DOCUSATE NA 100 MG CAP PO SCH (21:55)
[2025-04-24] MEDS: ROPINIROLE HCL 0.25 MG TAB PO SCH (21:55)
[2025-04-24] MEDS: APIXABAN 2.5 MG TABLET PO SCH (21:55)
[2025-04-25 06:08] LABS: Absolute Lymphocytes (CBC) 0.7 K/uL (0.7-4.9); Hematocrit 39.1 % (36.0-45.0); Hemoglobin 12.7 g/dL (12.0-15.0); MCH 29.9 pg (27.0-35.0); MCHC 32.6 g/dL (32.0-36.0); MCV 91.6 fL (80-100); MPV 7.1 fL (7.6-11.3); Nucleated RBC Absolute Count 0.0 (0-0); Nucleated Red Blood Cells % 0.0 % (0-0); RBC Red Blood Cell Count 4.26 M/uL (3.86-4.86); White Blood Count 7.90 thou/uL (4.3-10.9)
[2025-04-25 06:33] LABS: Albumin 2.5 g/dL (3.4-5.0); Albumin/Globulin Ratio 0.7 (1.1-1.8); Alkaline Phosphatase 61 U/L (45-117); Anion Gap 5.7 mEq/L (5.0-15.0); BUN Blood Urea Nitrogen 25 mg/dL (7-18); Globulin 3.4 g/dL (2.3-3.5); Glucose Level 133 mg/dL (74-106); Potassium 4.7 mEq/L (3.5-5.1); Thyroid Stimulating Hormone 1.580 uIU/mL (0.358-3.740); Uric Acid 6.5 mg/dL (2.6-6.0)
[2025-04-25 06:37] LABS: ALT/SGPT < 14 U/L (13-56); AST/SGOT < 10 U/L (15-37)
[2025-04-25 07:59] LABS: Blood Morphology Comment NOT SEEN (NOT SEEN); Differential Total Cells Count 100; Segmented Neutrophils 77 % (40-80)
[2025-04-25] MEDS: HOME MED 1 EA UNK (Dapagliflozin Propanediol [Farxiga] 10 MG Tablet) PO SCH (09:00)
[2025-04-25] MEDS: FERROUS SULFATE 325 MG TAB PO SCH (09:13)
[2025-04-25] MEDS: CYANOCOBALAMIN 1,000 MCG TAB PO SCH (09:13)
[2025-04-25] MEDS: DOCOSAHEXANOIC AC/EPA 1000 MG PO SCH (09:14)
[2025-04-25] MEDS: ASPIRIN EC 81 MG TAB PO SCH (09:14)
[2025-04-26 06:12] LABS: Albumin 2.5 g/dL (3.4-5.0); Anion Gap 7.1 mEq/L (5.0-15.0); BUN Blood Urea Nitrogen 26.0 mg/dL (7-18); Glucose Level 132.0 mg/dL (74-106)
[2025-04-26 06:14] LABS: Potassium 5.1 mEq/L (3.5-5.1)
[2025-04-26] MEDS: HOME MED 1 EA UNK (Dapagliflozin Propanediol [Farxiga] 10 MG Tablet) PO SCH (09:03)
[2025-04-26] MEDS: SODIUM ZIRCONIUM CYCLOSILICATE 10 GM/PKT PO ONE (12:54)
--- NOTE | 2025-04-26 22:54 | PN ---
Date of Progress Note: 04/26/2025 Chief Complaint: Acute on chronic kidney injury and elevated BUN and creatinine. Subjective: The patient is a 79-year-old female who has a history of chronic kidney disease, stage 3 , baseline creatinine level 1.5, GFR of 36; coronary artery disease; complicated congestive heart chance lure; diastolic dysfunction; fibromyalgia. The patient was advised to be admitted to the hospital be cause creatinine level on routine blood work was 2.4 and BUN 46. The patient was found to have eleva rosa WBC. The patient had hyperkalemia with potassium level 5.2. The patient denies nonsteroidal ant i-inflammatory medication. Denies nausea, vomiting, diarrhea. Review of Systems: The patient is feeling better. Denies complaints. Physical Examination: Lungs: Clear to auscultation bilaterally. Heart: S1, S2. Abdomen: Soft. Extremities: Slight edema. Impression And Plan: 1. Acute kidney injury secondary to prerenal azotemia, toxic acute tubular necrosis with hyperkalemia . The patient was started on IV fluids for acute kidney injury. 2. Congestive heart failure, systolic/diastolic dysfunction. Entresto is on hold. 3. Hypertension. Monitor blood pressure closely. Hold Entresto due to hyperkalemia and acute kidney injury. 4. Hyperkalemia, secondary to renal failure. Continue Lokelma according to lab work results. 5. Congestive heart failure, diastolic dysfunction. Mild hydration was started for acute kidney inju ry and the patient tolerates p.o. intake and tolerates IV fluids. Continue current treatment. 6. Urinary tract infection. Continue antibiotics. EB/MODL Voice ID: [id number] Report ID: [id number]
[2025-04-27 07:07] LABS: Albumin 2.4 g/dL (3.4-5.0); Anion Gap 5.5 mEq/L (5.0-15.0); BUN Blood Urea Nitrogen 25.0 mg/dL (7-18); Glucose Level 137.0 mg/dL (74-106); Potassium 4.5 mEq/L (3.5-5.1)
[2025-04-27] MEDS: ALBUTEROL 2.5 MG/3 ML NEB SOL NEB PRN (10:24)
[2025-04-27 18:07] VITALS: BP 175/75; TEMP 98
== END 2025-04-27 17:09 | disposition home health service (06) | DRG 683 ==
LOC: ER 19:08 → ERHOLD 23:02 → 2ND 23:39 → OBSVTOIN 04-24 21:23
PROVIDERS: ADMIT Internal Medicine; ATTEND Internal Medicine
DX: N17.0 Acute kidney failure with tubular necrosis (principal); I13.0 Hypertensive heart and chronic kidney disease with heart failure and stage 1 through stage 4 chronic kidney disease, or unspecified chronic kidney disease; I50.32 Chronic diastolic (congestive) heart failure; N30.00 Acute cystitis without hematuria; I48.20 Chronic atrial fibrillation, unspecified; Z68.41 Body mass index [BMI] 40.0-44.9, adult; N18.32 Chronic kidney disease, stage 3b; E11.22 Type 2 diabetes mellitus with diabetic chronic kidney disease; E11.40 Type 2 diabetes mellitus with diabetic neuropathy, unspecified; M79.7 Fibromyalgia; E87.5 Hyperkalemia; E66.9 Obesity, unspecified; K21.9 Gastro-esophageal reflux disease without esophagitis; E78.00 Pure hypercholesterolemia, unspecified; I25.10 Atherosclerotic heart disease of native coronary artery without angina pectoris; Z60.2 Problems related to living alone; Z95.1 Presence of aortocoronary bypass graft; Z91.013 Allergy to seafood; Z91.014 Allergy to mammalian meats; Z79.01 Long term (current) use of anticoagulants; Z79.02 Long term (current) use of antithrombotics/antiplatelets; Z79.899 Other long term (current) drug therapy; Z96.651 Presence of right artificial knee joint; Z90.710 Acquired absence of both cervix and uterus; Z95.810 Presence of automatic (implantable) cardiac defibrillator
CPT/HCPCS: 36415; 71045; 76770; 80048; 80053; 80069; 81001; 82550; 82947; 84443; 84550; 85025; 87077; 87086; 87088; 87186; 96360; 97116; 97161; 99284; G0378; J0696; J1644; J1815; J7030; J7120; J7512; J7613

== ENCOUNTER 2025-06-18 19:39 | Emergency (ER) | payer OTHER ==
[2025-06-18 19:53] LABS: Absolute Lymphocytes (CBC) 0.3 K/uL (0.7-4.9); Hematocrit 40.8 % (36.0-45.0); Hemoglobin 13.0 g/dL (12.0-15.0); MCH 28.2 pg (27.0-35.0); MCHC 31.9 g/dL (32.0-36.0); MCV 88.4 fL (80-100); MPV 7.6 fL (7.6-11.3); Nucleated RBC Absolute Count 0.0 (0-0); Nucleated Red Blood Cells % 0.0 % (0-0); RBC Red Blood Cell Count 4.62 M/uL (3.86-4.86); White Blood Count 21.20 thou/uL (4.3-10.9)
[2025-06-18 20:00] LABS: PT Prothrombin Time 18.2 SECONDS (10-13.0); Protime INR 1.63
[2025-06-18 20:08] LABS: Influenza A Ag Negative; Influenza B Ag Negative; SARS-CoV-2 Antigen Rapid Res Negative (Negative)
[2025-06-18 20:14] LABS: ALT/SGPT 20.0 U/L (13-56); AST/SGOT 11.0 U/L (15-37); Albumin 2.5 g/dL (3.4-5.0); Albumin/Globulin Ratio 0.8 (1.1-1.8); Alkaline Phosphatase 62.0 U/L (45-117); Anion Gap 13.0 mEq/L (5.0-15.0); BUN Blood Urea Nitrogen 42.0 mg/dL (7-18); Bilirubin Indirect, Calculated 0.4 mg/dL (0.2-0.8); Globulin 3.3 g/dL (2.3-3.5); Glucose Level 176.0 mg/dL (74-106); Magnesium 1.8 mg/dL (1.6-2.4); NT PRO-BNP 4667.0 pg/mL (<450); Potassium 3.0 mEq/L (3.5-5.1); Troponin High Sensitivity 48.2 pg/mL (<58.9)
[2025-06-18 20:39] LABS: Anisocytosis 1+; Blood Morphology Comment NOT SEEN (NOT SEEN); Poikilocytosis 1+; White Blood Cell Scan OK (OK)
--- NOTE | 2025-06-18 20:53 | RAD REPORT ---
EXAMINATION: ONE VIEW CHEST XR CLINICAL INDICATION: wkness TECHNIQUE: Frontal chest projection is submitted. Examination is limited by patient positioning and t echnique. COMPARISON: 04/23/2025 FINDINGS: Mild bilateral pulmonary edema is suspected. The heart is moderately enlarged in size. No displaced f ractures identified. Sternotomy wires. Multidetector pacer/defibrillator device. IMPRESSION: Mild CHF versus volume overload pattern is suspected.
[2025-06-18] MEDS ORDERED: POTASSIUM 25 MEQ EFFERV TAB ONE (20:55)
[2025-06-18] MEDS ORDERED: NA CHLORIDE 0.9% 1,000 ML ONE (21:58)
[2025-06-18 22:06] LABS: Urine Culture Reflex Order REFLEXED; Urine Microscopic Reflex YN ORDER UMIC; Urine WBC Clump Few /HPF (None Seen)
--- NOTE | 2025-06-18 22:11 | RAD REPORT ---
EXAMINATION: CT CHEST WITHOUT CONTRAST CLINICAL INDICATION: DyspneaChest pain;Fever TECHNIQUE: Routine CT scan of the chest without intravenous contrast. One or more of the following do se reduction techniques were used: Automated exposure control, adjustment of the mA and/or kV according to patient size, and/or iterative reconstruction. Unless otherwise specified, incidental fi ndings do not require dedicated imaging follow-up. COMPARISON: No prior exam. FINDINGS: LOWER NECK: Visualized thyroid gland and soft tissues are normal. LUNGS: Mild linear atelectasis in both lung bases. No focal consolidation to suggest pneumonia. PLEURA: No pleural effusion. No pneumothorax. . MEDIASTINUM AND LYMPH NODES: No mediastinal mass or fluid collection. Normal size mediastinal, hilar, and axillary lymph nodes. Cardiomegaly with pacer device. OSSEOUS STRUCTURES AND CHEST WALL: Moderate lower thoracic degenerative changes. Sternotomy wires. UPPER ABDOMEN: No significant abnormalities. Prominent stool. IMPRESSION: No acute intrathoracic findings. Examination limited by lack of IV contrast.
[2025-06-18] MEDS ORDERED: CEFTRIAXONE 1000 MG/VIAL ONE (22:42)
--- NOTE | 2025-06-18 23:05 | EDPHYS ---
Physician Documentation [facility] Name: Jelly Garcia Age: 79 yrs Sex: Female : 1945 Arrival Date: 06/18/2025 Time: 19:38 Bed 4 Private MD: ED Physician Reyes Rudd HPI: 06/18 22:37 This 79 yrs old Female presents to ER via EMS with complaints of Blood Pressure Problem.sb4 22:37 Patient presents today with generalized weakness status post reported defibrillator sb4 discharge. Apparently her home health nurse came to check on her earlier and noted her to be mildly hypotensive, advised going to the ED but patient refused at the time. She states that later in the day, her defibrillator shocked her so she decided to call the ED. She was initially hypotensive for EMS but has improved with IV fluids. She denies any chest pain or shortness of breath, just feeling generally weak. She states that her sister has been sick. Historical: - Allergies: 19:51 shellfish derived; rg5 19:51 Pork/Porcine Containing Products; rg5 - PMHx: 19:51 Atrial Fib; CHF; CKD; Diabetes - NIDDM; diabetes mellitus; Fibromyalgia; GERD; rg5 Hypercholesterolemia; Hypertension; pacemaker/defibrillator; Temporal Arteritis; - PSHx: 19:51 Pacemaker/Defibrillator; right knee surgery; rg5 - Immunization history:: Adult Immunizations up to date. - Infectious Disease History:: Denies. - Social history:: Smoking status: unknown. ROS: 22:37 Constitutional: Negative for fever, chills, and weight loss, sb4 22:37 Neuro: Positive for weakness, 22:37 All other systems are negative, Exam: 22:37 Head/Face: Normocephalic, atraumatic. Eyes: Extra-ocular motions intact. Periorbital sb4 areas with no swelling, redness, or edema. ENT: Mucous membranes moist. Cardiovascular: Regular rate and rhythm with a normal S1 and S2. Respiratory: No increased work of breathing, no retractions or nasal flaring. Abdomen/GI: Soft, non-tender, no distension. Skin: Warm, dry with normal turgor. Normal color with no rashes, no lesions, and no evidence of cellulitis. 22:37 Constitutional: The patient appears in no acute distress, alert, awake, obese, 23:12 ECG was reviewed by the Attending Physician. sb4 Vital Signs: 19:46 BP 116 / 53; Pulse 89; Resp 16; Temp 100.2(O); Pulse Ox 92% on R/A; Weight 94.35 kg; rg5 Height 5 ft. 0 in. ; 20:46 BP 141 / 55; Pulse 83; Resp 16; Pulse Ox 97% on 2 lpm NC; vc1 21:31 BP 112 / 56; Pulse 74; Resp 16; Pulse Ox 92% on 2 lpm NC; kb4 22:47 BP 116 / 59; Pulse 70; Resp 18; Pulse Ox 96% on 2 lpm NC; kb4 06/19 00:00 BP 136 / 66; Pulse 67; Resp 25; Pulse Ox 100% on 4 lpm NC; vc1 00:34 BP 150 / 59; Pulse 65; Resp 18; Pulse Ox 100% on 10 lpm Non-rebreather mask; kb4 01:10 BP 139 / 75; Pulse 62; Resp 16; Pulse Ox 100% on 10 lpm Non-rebreather mask; kb4 01:30 BP 158 / 81; Pulse 68; Resp 26; Pulse Ox 100% on 10 lpm Non-rebreather mask; vc1 02:00 BP 155 / 129; Pulse 65; Resp 28; Pulse Ox 100% on 10 lpm Non-rebreather mask; vc1 02:30 BP 157 / 90; Pulse 66; Resp 28; Pulse Ox 100% on 10 lpm Non-rebreather mask; vc1 06/18 19:46 Body Mass Index 40.62 (94.35 kg, 152.4 cm) rg5 01:10 slepeing w/ non rebeather, open mouth sleeper kb4 01:30 patient on NRB due to KAMALA vc1 Procedures: 02:42 Central Line: the site was prepped with Betadine, in sterile fashion, a triple lumen sp4 catheter was inserted, in the right internal jugular vein, in 1 attempts. placement was verified, by CXR, by blood return, Ultrasound-guided central line, the site was dressed with 4X4s, Tegaderm, foam tape, using sterile technique, the patient tolerated the procedure, well, Ultrasound-guided central line placed for persistent ventricular tachycardia. MDM: 06/18 19:41 Medical Screening Exam initiated sb4 23:02 Data reviewed: vital signs, nurses notes, EMS record, lab test result(s), EKG, sb4 radiologic studies, I have discussed the patient's presentation/case with the attending Emergency Department Physician;. Counseling: I had a detailed discussion with the patient and/or guardian regarding the historical points, exam findings, and any diagnostic results supporting the discharge/admit diagnosis, lab results, radiology results, the need to transfer to another facility, for higher level of care, [facility] does not immediately have the required specialist. 23:08 ED course: Patient noted to have a 15 second run of sustained V. tach, spontaneously sb4 converted back to A-fib, will transfer to [facility] where her EP [facility]. 23:09 Consideration of Admission/Observation Patient was admitted/placed on observation. Care sb significantly affected by the following chronic conditions: Diabetes, Hypertension, Congestive Heart Failure, Obesity, Chronic Kidney Disease. 23:10 Differential diagnosis: UTI, hypovolemia, ACS, viral illness. sb4 06/19 00:45 Management of patient was discussed with the following: Hospitalist: Director [facility] at [address], does not believe pt requires ICU care, recommends admission via hospitalist. 00:59 Management of patient was discussed with the following: Hospitalist: Adeola Sandoval [facility] hospitalist at [facility], accepts patient for transfer. 02:47 HEART Score: History: Highly Suspicious (2), ECG: Non specific repolarization sp4 disturbance / LBTB / PM (1), Age: > or = 65 years (2), Risk Factors: > or = 3 Risk factors for atherosclerotic disease (2), Troponin: < or = 1 x Normal Limit (0), Total Score = 7. 02:48 Differential diagnosis: abnormal EKG, acute myocardial infarction, acute pericarditis, sp4 anxiety, coronary artery disease chest wall pain, congestive heart failure costochondritis, unstable angina. ED course: Patient was given central line for persistent ventricular tachycardia and switched to lidocaine drip.. 04:44 ED course: EXAM: XR Chest, 1 View CLINICAL HISTORY: CVL placement ;Chest pain sp4 TECHNIQUE: Frontal view of the chest. COMPARISON: No relevant prior studies available. FINDINGS: Lungs: Mild central pulmonary vascular and interstitial prominence. No consolidation. Pleural space: Unremarkable. No pneumothorax. Heart: The cardiac silhouette is mildly to moderately enlarged, in part accentuated by portable technique. Mediastinum: Unremarkable. Normal mediastinal contour. Bones/joints: Prior median sternotomy. No acute fracture. Vasculature: Thoracic aortic atherosclerosis. Tubes, lines and devices: Right internal jugular central venous catheter tip projects over the mid to distal superior vena cava. Left chest wall dual-lead pacer/ICD in place. IMPRESSION: 1. Right internal jugular central venous catheter tip projects over the mid to distal superior vena cava. 2. Findings which may be related to mild pulmonary congestion. . 06/18 19:43 Order name: Basic Metabolic Panel; Complete Time: 20:14 [facility] 06/18 19:43 Order name: CBC with Diff; Complete Time: 20:41 [facility] 06/18 19:43 Order name: LFT's; Complete Time: 20:14 [facility] 06/18 19:43 Order name: Magnesium; Complete Time: 20:14 [facility] 06/18 19:43 Order name: NT PRO-BNP; Complete Time: 20:14 [facility] 06/18 19:43 Order name: PT-INR; Complete Time: 20:01 [facility] 06/18 19:43 Order name: Troponin HS; Complete Time: 20:14 [facility] 06/18 19:43 Order name: COVID-19 Ag + Flu A+B Ag; Complete Time: 20:12 [facility] 06/18 20:39 Order name: CBC Smear Scan; Complete Time: 20:41 [facility] 06/18 20:39 Order name: Blood Culture Adult (2) [facility] 06/18 20:39 Order name: Lactate w/ 2H reflex if indic.; Complete Time: 22:12 [facility] 06/18 20:39 Order name: UA Rfx Dedrick Cult if indicated; Complete Time: 22:33 [facility] 06/18 22:36 Order name: Urine Culture [facility] 06/18 19:43 Order name: XRAY Chest (1 view); Complete Time: 20:54 [facility] 06/18 21:30 Order name: Chest Wo Con CT; Complete Time: 22:12 [facility] 06/19 02:36 Order name: Chest Single View XRAY [facility] 06/18 19:43 Order name: Cardiac monitoring; Complete Time: 19:58 [facility] 06/18 19:43 Order name: EKG - Nurse/Tech; Complete Time: 19:58 sb4 06/18 19:43 Order name: IV Saline Lock; Complete Time: 19:58 sb4 06/18 19:43 Order name: Labs collected and sent; Complete Time: 19:58 sb4 06/18 19:43 Order name: O2 Per Protocol; Complete Time: 19:58 sb4 06/18 19:43 Order name: O2 Sat Monitoring; Complete Time: 19:58 sb4 06/18 19:47 Order name: Misc. Order: interrogate AICD; Complete Time: 20:13 sb4 06/19 02:53 Order name: Central Line Dressing Kit; Complete Time: 03:20 sp4 06/19 02:53 Order name: Central Line Kit; Complete Time: 03:20 sp4 06/19 02:53 Order name: Chlorhexidine prep; Complete Time: 03:20 sp4 06/19 02:53 Order name: Consent for central line completed; Complete Time: 03:20 sp4 06/19 02:53 Order name: Line Caps x3; Complete Time: 03:20 sp4 06/19 02:53 Order name: NS Flushes x3; Complete Time: 03:20 sp4 06/19 02:53 Order name: Sterile Gloves; Complete Time: 03:20 sp4 06/19 02:53 Order name: Sterile Probe Cover; Complete Time: 03:20 sp4 06/19 03:08 Order name: Vazquez; Complete Time: 03:20 sp4 EC/16 20:20 Rate is 89 beats/min. Rhythm is irregularly irregular, A fib. QRS interval is normal at sb4 105 msec. QT interval is prolonged at 446 msec. No Q waves. T waves are Normal. No ST changes noted. Clinical impression: Atrial Fibrillation. Interpreted by me. Reviewed by me. 23:12 Rate is 71 beats/min. Rhythm is regular, Paced. LA interval is prolonged at 210 msec. sb4 QRS interval is normal at 88 msec. Interpreted by me. Reviewed by me. Administered Medications: 21:31 Drug: Potassium PO Effervescent Tablet 50 mEq PO once; dissolve in 4 ounces of water or kb4 juice Route: PO; 21:56 Follow up: Response: No adverse reaction [facility] 22:08 Drug: NS 0.9% IV 1000 ml IV at 1000 ml once; to be given as a bolus over 60 minutes kb4 Route: IV; Rate: 1000 ml; Site: right antecubital; 06/19 00:35 Follow up: Response: No adverse reaction; IV Status: Completed infusion; IV Intake: al5 1000ml 06/18 22:47 Drug: Rocephin IV 1 grams IV at calculated rate once; Given slow IV push per pharmacy vc1 instructions Route: IV; Rate: calculated rate; Site: right antecubital; 22:52 Follow up: IV Status: Completed infusion; IV Intake: 10ml vc1 23:24 Drug: Magnesium Sulfate IVPB 2 grams IVPB once over 2 hrs {Note: per provider, give al5 over 30 minutes .} Route: IVPB; Infused Over: 30 mins; Site: right antecubital; 23:52 Follow up: Response: No adverse reaction; IV Status: Completed infusion; IV Intake: [id number] 23:53 Drug: amiodarone IVPB 150 mg 100 ml IVPB once over 10 mins; (mix in D5W) Volume: 100 al5 ml; Route: IVPB; Infused Over: 10 mins; Site: right antecubital; 06/19 00:00 Follow up: Response: No adverse reaction; IV Status: Completed infusion al5 02:50 Follow up: IV Status: Order to discontinue infusion al5 00:05 Drug: amiodarone IVPB 900 mg, D5W IV 500 ml IVPB at 1 mg/min continuous; for 6 hrs, al5 then change to 0.5 mg/min Route: IVPB; Rate: 1 mg/min; Site: right antecubital; 02:49 Follow up: Response: No adverse reaction; IV Status: Order to discontinue infusion al5 02:14 Drug: Furosemide IVP 40 mg IVP once; give over 2 minutes Route: IVP; Site: right al5 antecubital; 03:12 Follow up: Response: No adverse reaction al5 02:49 Drug: Lidocaine IV 1 mg/min IV at calculated rate See Administration Instructions; al5 (Standard concentration 2 g / 500 mL D5W); Recommended max rate 4 mg/min; Titrate 0.5 mg/min as often as every 15 minutes to achieve goal (see titration policy); Goal parameter PHYSICIAN SPECIFIED Route: IV; Rate: calculated rate; Site: right jugular; 03:12 Follow up: Response: No adverse reaction; IV Status: Infusion continued upon transfer al5 Disposition: 02:46 Critical Care:. sp4 02:47 Co-signature as Attending Physician, Reyes Rudd MD I agree with the assessment sp4 and plan of care. I reviewed the patient's care provided by Advanced Practice Provider \T\ agree w/ the diagnosis \T\ care plan. I personally saw the pt \T\ performed a substantive portion of the visit, incldng all aspects of the (History/Exam/Medical Decision Making). Disposition Summary: 06/18/25 23:04 Transfer Ordered Notes: Transfer Location: [facility] sb4 Reason: Higher level of care sb4 Condition: Fair sb4 Problem: new sb4 Symptoms: are unchanged sb4 Accepting Physician: hospitalist(06/19/25 03:31) al5 Diagnosis - Defibrillator discharge sb4 - Acute kidney failure, unspecified sb4 - UTI/ Urinary tract infection, site not specified sb4 - Ventricular tachycardia sb4 Forms: - Medication Reconciliation Form sb4 - SBAR form sb4 Critical care time excluding procedures: 06/18 23:10 Critical care time: Bedside Care: 15 minutes, Consultation: 20 minutes. Total time: 35 sb4 minutes 06/19 02:46 Critical care time: Bedside Care: 36 minutes, Consultation: 12 minutes, Family sp4 Intervention: 12 minutes. Total time: 60 minutes Signatures: Dispatcher [employer] EDMS Monica Trimble RN RN vc1 Jenni Garcia, PA-C PA-C sb4 Reyes Rudd MD MD sp4 Davion Santoyo RN RN rg5 Nelly Crum RN RN al5 Rosaura Schmidt RN RN kb4 Corrections: (The following items were deleted from the chart) 06/18 19:43 19:43 BASIC METABOLIC PANEL+C.LAB.BRZ ordered. EDMS EDMS 19:43 19:43 CBC+H.LAB.BRZ ordered. EDMS EDMS 19:43 19:43 HEPATIC FUNCTION+C.LAB.BRZ ordered. EDMS EDMS 19:43 19:43 MAGNESIUM+C.LAB.BRZ ordered. EDMS EDMS 19:43 19:43 PROBNP+C.LAB.BRZ ordered. EDMS EDMS 19:43 19:43 PROTIME (+INR)+COAG.LAB.BRZ ordered. EDMS EDMS :43 19:43 Troponin High Sensitivity+C.LAB.BRZ ordered. EDMS EDMS 19:43 19:43 COVID-19 Ag + Flu A+B Ag+I.LAB.BRZ ordered. EDMS EDMS 19:44 19:44 Chest Single View+RAD.RAD.BRZ ordered. EDMS EDMS 21:56 21:55 Vazquez ordered. sb4 kb4 23:06 23:04 hospitalist sb4 sb4 06/19 03:31 09 23:06 hospitalist sb4 al5
--- NOTE | 2025-06-18 23:05 | ER ---
Nurse's Notes [facility] Name: Jelly Garcia Age: 79 yrs Sex: Female : 1945 Arrival Date: 06/18/2025 Time: 19:38 Bed 4 Private MD: Diagnosis: Defibrillator discharge;Acute kidney failure, unspecified;UTI/ Urinary tract infection, site not specified;Ventricular tachycardia Presentation: 06/18 19:46 Chief complaint: Patient states: at 1400 this afternoon, home health visited patient. rg5 stated her BP was low and needed to be seen in the ER, patient refused. at 1830 this evening, patient states her defibrillator went off and decided to be checked out. Coronavirus screen: At this time, the client does not indicate any symptoms associated with coronavirus-19. Ebola Screen: No symptoms or risks identified at this time. Initial Sepsis Screen: Does the patient meet any 2 criteria? No. Patient's initial sepsis screen is negative. Does the patient have a suspected source of infection? No. Patient's initial sepsis screen is negative. Risk Assessment: Do you want to hurt yourself or someone else? Patient reports no desire to harm self or others. Onset of symptoms was June 18, 2025 at 14:00. Care prior to arrival: Medication(s) given: Normal saline infusion, 400 mL Tylenol, 1000 mg, IV initiated. 20 GA, in the left antecubital area, Glucose check: 172. 19:46 Method Of Arrival: EMS: [place] [id number] 19:46 Acuity: BRIAN 3 rg5 Triage Assessment: 19:51 General: Appears in no apparent distress. comfortable, Behavior is calm, cooperative. rg5 Pain: Denies pain. EENT: No signs and/or symptoms were reported regarding the EENT system. Neuro: Level of Consciousness is awake, alert, obeys commands, Oriented to person, place, time, situation. Cardiovascular: Capillary refill < 3 seconds Patient's skin is warm and dry. Rhythm is atrial fibrillation. Respiratory: Airway is patent Respiratory effort is even, unlabored, Respiratory pattern is regular, symmetrical. GI: No signs and/or symptoms were reported involving the gastrointestinal system. : No signs and/or symptoms were reported regarding the genitourinary system. Derm: Skin is intact, Skin is pink, warm \\T\\ dry. normal. Musculoskeletal: Circulation, motion, and sensation intact. Historical: - Allergies: 19:51 shellfish derived; rg5 19:51 Pork/Porcine Containing Products; rg5 - PMHx: 19:51 Atrial Fib; CHF; CKD; Diabetes - NIDDM; diabetes mellitus; Fibromyalgia; GERD; rg5 Hypercholesterolemia; Hypertension; pacemaker/defibrillator; Temporal Arteritis; - PSHx: 19:51 Pacemaker/Defibrillator; right knee surgery; rg5 - Immunization history:: Adult Immunizations up to date. - Infectious Disease History:: Denies. - Social history:: Smoking status: unknown. Screenin:53 [facility] ED Fall Risk Assessment (Adult) History of falling in the last 3 months, rg5 including since admission No falls in past 3 months (0 pts) Confusion or Disorientation No (0 pts) Intoxicated or Sedated No (0 pts) Impaired Gait Yes (1 pt) Mobility Assist Device Used Yes (1 pt) Altered Elimination Yes (1 pt) Score/Fall Risk Level 3 or more points = High Risk Oriented to surroundings, Maintained a safe environment, Hourly rounding (assess needs \\T\\ fall precautionary measures) done. Abuse screen: Denies threats or abuse. Denies injuries from another. Nutritional screening: No deficits noted. Tuberculosis screening: No symptoms or risk factors identified. Assessment: 19:53 Reassessment: see triage assessment. rg5 20:13 Reassessment: [facility] defibrillator interrogator placed on patient L side chest al5 at this time, defibrillator being interrogated at this time. 20:45 Reassessment: No changes from previously documented assessment. Patient and/or family vc1 updated on plan of care and expected duration. Pain level reassessed. Patient is alert, oriented x 3, equal unlabored respirations, skin warm/dry/pink. interrogation complete, awaiting fax for results. 21:31 Reassessment: No changes from previously documented assessment. Patient and/or family kb4 updated on plan of care and expected duration. Pain level reassessed. Patient is alert, oriented x 3, equal unlabored respirations, skin warm/dry/pink. 21:53 Reassessment: Kelly (Sister and Medical POA): [phone]. al5 22:47 Reassessment: No changes from previously documented assessment. Patient and/or family kb4 updated on plan of care and expected duration. Pain level reassessed. Patient is alert, oriented x 3, equal unlabored respirations, skin warm/dry/pink. 22:49 Reassessment:. vc1 23:04 General: Pt environmental monitoring technician showing VTACH, entered room and hit staff assist. Pt vc1 unresponsive. Defib pads placed on patient. Dr. Rudd and Jenni Garcia at bedside. Pt rhythm returns to a paced rhythm and pt opens her eyes and says, "I don't feel to well" Defib pads placed on patient. Will continue to monitor. . 06/19 00:15 Reassessment: placed on 10L Non rebreather due to mouth breathing and drop in O2 while kb4 sleeping. 00:34 Reassessment: Patient states feeling better. Patient states symptoms have improved. kb4 01:10 Reassessment: Patient and/or family updated on plan of care and expected duration. Pain kb4 level reassessed. Patient is alert, oriented x 3, equal unlabored respirations, skin warm/dry/pink. 01:25 Reassessment: gave report to SAQIB Loza at [facility]. al5 01:36 Reassessment: patient experience another episode of VTACH lasting about 20 seconds, al5 provider at bedside. 02:00 Reassessment: patient in and out of VTACH, each episode lasting about 10 seconds. al5 provider at bedside. 02:14 Reassessment: patient given verbal consent for central line placement with SAQIB Kaplan al5 [address] Dr[address] Rudd as witness. 02:34 Reassessment: patient experiencing another episode of VTACH, at bedside. al5 02:44 Reassessment: gave report to SAQIB Knutson and [facility] ICU. al5 02:46 Reassessment: attempted to reach patient sister and medical POA without success, left al5 voicemail updating her on patient status and transfer to next facility. Vital Signs: 06/18 19:46 BP 116 / 53; Pulse 89; Resp 16; Temp 100.2(O); Pulse Ox 92% on R/A; Weight 94.35 kg; rg5 Height 5 ft. 0 in. ; 20:46 BP 141 / 55; Pulse 83; Resp 16; Pulse Ox 97% on 2 lpm NC; vc1 21:31 BP 112 / 56; Pulse 74; Resp 16; Pulse Ox 92% on 2 lpm NC; kb4 22:47 BP 116 / 59; Pulse 70; Resp 18; Pulse Ox 96% on 2 lpm NC; kb4 06/19 00:00 BP 136 / 66; Pulse 67; Resp 25; Pulse Ox 100% on 4 lpm NC; vc1 00:34 BP 150 / 59; Pulse 65; Resp 18; Pulse Ox 100% on 10 lpm Non-rebreather mask; kb4 01:10 BP 139 / 75; Pulse 62; Resp 16; Pulse Ox 100% on 10 lpm Non-rebreather mask; kb4 01:30 BP 158 / 81; Pulse 68; Resp 26; Pulse Ox 100% on 10 lpm Non-rebreather mask; vc1 02:00 BP 155 / 129; Pulse 65; Resp 28; Pulse Ox 100% on 10 lpm Non-rebreather mask; vc1 02:30 BP 157 / 90; Pulse 66; Resp 28; Pulse Ox 100% on 10 lpm Non-rebreather mask; vc1 06/18 19:46 Body Mass Index 40.62 (94.35 kg, 152.4 cm) rg5 01:10 slepeing w/ non rebeather, open mouth sleeper kb4 01:30 patient on NRB due to KAMALA vc1 ED Course: 06/18 19:38 Patient arrived in ED. vk 19:41 Jenni Garcia PA-C is PHCP. sb4 19:41 Reyes Rudd MD is Attending Physician. sb4 19:46 Davion Santoyo RN is Primary Nurse. rg5 19:50 Triage completed. rg5 19:51 Arm band placed on right wrist. Patient placed in the treatment room, in view of staff rg5 members, on oxygen, on environmental monitoring technician, on pulse oximetry. EKG completed in triage. Results shown to MD. 19:53 Patient has correct armband on for positive identification. Bed in low position. Call rg5 light in reach. Side rails up X2. Provided Education on: plan of care. 19:53 No provider procedures requiring assistance completed. Maintain EMS IV. Dressing rg5 intact. Good blood return noted. Site clean \\T\\ dry. Gauge \\T\\ site: 20G LAC. Flushed with 10 mL NS. 19:58 Rosaura Schmidt, RN is Primary Nurse. kb4 20:00 Assisted to bedside commode. oe 20:24 XRAY Chest (1 view) In Process Unspecified. EDMS 21:40 EKG done, by ED staff, reviewed by Jenni Garcia PA-C. oe 21:[address] In Process Unspecified. EDMS 22:07 Inserted saline lock: 20 gauge in right antecubital area, using aseptic technique. kb4 Blood collected. Flushed with 10 mL NS. 23:12 initiated with [facility] spoke with Niurka stated she will call back for consults. vk 23:39 Inserted saline lock: 20 gauge in right forearm, using aseptic technique. Flushed with kb4 10 mL NS. 06/19 00:59 Patient was accepted to Dr. Johnson to [facility] 7B bed 25 accepting admin Niurak N. vk 01:30 called Transfer center to update on patient statues advised patient needing ICU Bed. as vk well as patient statues transportation now needing Life flight. 02:15 Patient was accepted to ICU 7 [facility] bed [address] Valles accepting admin niurka n. vk 02:51 Vazquez cath inserted, using sterile technique, 18 Fr., by ok, balloon inflated, to kb4 gravity drainage. 02:51 Assisted provider with central line placement. Set up central line tray. Triple lumen kb4 line placed in right internal jugular. Line placed by Reyes Rudd MD Placement verified by CXR, Dressed with Tegaderm, Patient tolerated well. Before procedure, did Practitioner(s) obtain informed consent? Yes. Patient \\T\\ family education about procedure, CLABSI prevention and S/S of infection? Yes. Time-out/Briefing performed prior to start of procedure? Yes. Was handwashing/sanitizing done immediately prior to procedure? Yes. Was patient positioned to in a way to prevent air embolism? Yes. Was procedure site sterilized? Yes, with chlorhexidine. Was the site allowed to dry? Yes. Was local anesthetic and/or sedation utilized? Yes. During the procedure, did the Practitioner(s) maintain a sterile field? Yes. Were unused ports clamped during insertion? Yes. Was a 2nd qualified MD obtained after 3 unsuccessful insertion attempts? Yes. Was blood aspirated from each lumen? Yes. After the procedure, did the Practitioner(s) clean the site and apply a sterile dressing? Yes. 02:54 Chest Single View XRAY In Process Unspecified. EDMS 03:12 Patient transferred, IV remains in place. al5 Administered Medications: 06/18 21:31 Drug: Potassium PO Effervescent Tablet 50 mEq PO once; dissolve in 4 ounces of water or kb4 juice Route: PO; 21:56 Follow up: Response: No adverse reaction kb4 22:08 Drug: NS 0.9% IV 1000 ml IV at 1000 ml once; to be given as a bolus over 60 minutes kb4 Route: IV; Rate: 1000 ml; Site: right antecubital; 06/19 00:35 Follow up: Response: No adverse reaction; IV Status: Completed infusion; IV Intake: al5 1000ml 06/18 22:47 Drug: Rocephin IV 1 grams IV at calculated rate once; Given slow IV push per pharmacy vc1 instructions Route: IV; Rate: calculated rate; Site: right antecubital; 22:52 Follow up: IV Status: Completed infusion; IV Intake: 10ml vc1 23:24 Drug: Magnesium Sulfate IVPB 2 grams IVPB once over 2 hrs {Note: per provider, give al5 over 30 minutes .} Route: IVPB; Infused Over: 30 mins; Site: right antecubital; 23:52 Follow up: Response: No adverse reaction; IV Status: Completed infusion; IV Intake: [id number] 23:53 Drug: amiodarone IVPB 150 mg 100 ml IVPB once over 10 mins; (mix in D5W) Volume: 100 al5 ml; Route: IVPB; Infused Over: 10 mins; Site: right antecubital; 06/19 00:00 Follow up: Response: No adverse reaction; IV Status: Completed infusion al5 02:50 Follow up: IV Status: Order to discontinue infusion al5 00:05 Drug: amiodarone IVPB 900 mg, D5W IV 500 ml IVPB at 1 mg/min continuous; for 6 hrs, al5 then change to 0.5 mg/min Route: IVPB; Rate: 1 mg/min; Site: right antecubital; 02:49 Follow up: Response: No adverse reaction; IV Status: Order to discontinue infusion al5 02:14 Drug: Furosemide IVP 40 mg IVP once; give over 2 minutes Route: IVP; Site: right al5 antecubital; 03:12 Follow up: Response: No adverse reaction al5 02:49 Drug: Lidocaine IV 1 mg/min IV at calculated rate See Administration Instructions; al5 (Standard concentration 2 g / 500 mL D5W); Recommended max rate 4 mg/min; Titrate 0.5 mg/min as often as every 15 minutes to achieve goal (see titration policy); Goal parameter PHYSICIAN SPECIFIED Route: IV; Rate: calculated rate; Site: right jugular; 03:12 Follow up: Response: No adverse reaction; IV Status: Infusion continued upon transfer al5 Medication: 06/18 19:53 VIS not applicable for this client. rg5 Intake: 22:52 IV: 10ml; Total: 10ml. vc1 23:52 IV: 50ml; Total: 60ml. al5 06/19 00:35 IV: 1000ml; Total: 1060ml. al5 Outcome: 06/18 23:04 ER care complete, transfer ordered by . sb4 06/19 03:12 Transferred by helicopter [facility]. to [facility], al5 [facility], critical Instructed on the need for transfer, 03:31 Patient left the ED. al5 Addendum: 06/23/2025 07:42 Addendum: Culture Results: Positive blood culture. faxed positive culture report to [facility] at [phone]. Signatures: Dispatcher [employer] EDVT Gurpreet Quick Elizabeth eb Calcote, Vanessa RN RN vc1 Jenni Garcia PA-C PASaad [email or web address] Nadege Shaw Rommel, RN RN rg5 Nelly Crum RN RN al5 Rosaura Schmidt RN RN kb4 Corrections: (The following items were deleted from the chart) 06/18 22:10 22:07 EKG done, oe oe 23:24 23:24 Magnesium Sulfate IVPB 2 grams IVPB in right antecubital over 2 hrs al5 al5 06/19 00:05 00:00 amiodarone IVPB 150 mg 100 ml IVPB in right antecubital over 10 mins al5 al5 03:04 02:59 Reassessment: al5 al5
[2025-06-18] MEDS ORDERED: Magnesium Sulfate 2gm IVPB 2 G/50 ML BAG IV ONE (23:17)
[2025-06-18] MEDS ORDERED: AMIODARONE HCL 150 MG/3 ML INJ IV ONE (23:48)
[2025-06-18] MEDS ORDERED: AMIODARONE IN DEXTROSE,ISO-OSM 360 MG/200 ML BAG IV ONE (23:49)
[2025-06-18] MEDS ORDERED: D5W 100 ML IV ONE (23:49)
[2025-06-19] MEDS ORDERED: FUROSEMIDE 40 MG/4 ML VIAL ONE (02:17)
[2025-06-19] MEDS ORDERED: LIDOCAINE/D5W 2,000 MG/500 ML BAG IV ONE (02:41)
[2025-06-19 03:36] VITALS: TEMP 100.2
[2025-06-19 03:43] VITALS: O2SAT 100
[2025-06-19 03:51] VITALS: BP 157/90
--- NOTE | 2025-06-19 06:28 | RAD REPORT ---
EXAM: XR Chest, 1 View CLINICAL HISTORY: CVL placement ;Chest pain TECHNIQUE: Frontal view of the chest. COMPARISON: No relevant prior studies available. FINDINGS: Lungs: Mild central pulmonary vascular and interstitial prominence. No consolidation. Pleural space: Unremarkable. No pneumothorax. Heart: The cardiac silhouette is mildly to moderately enlarged, in part accentuated by portable joshua hnique. Mediastinum: Unremarkable. Normal mediastinal contour. Bones/joints: Prior median sternotomy. No acute fracture. Vasculature: Thoracic aortic atherosclerosis. Tubes, lines and devices: Right internal jugular central venous catheter tip projects over the mid to distal superior vena cava. Left chest wall dual-lead pacer/ICD in place. IMPRESSION: 1. Right internal jugular central venous catheter tip projects over the mid to distal superior vena cava. 2. Findings which may be related to mild pulmonary congestion. Electronically signed by: Isidra Cook MD 06/19/2025 03:28 AM CDT RP Due to temporary technical issues with the PACS/thereNow reporting system, reports are being kayla d by the in-house radiologist without review as a courtesy to ensure prompt reporting the interpreting radiologist is fully responsible for the content of the report. Transcribed Date/Time: 06/19/2025 6:28 AM
== END 2025-06-19 03:31 | disposition short-term general hospital (02) ==
LOC: ER 19:39
DX: I47.20 Ventricular tachycardia, unspecified (principal); Z95.810 Presence of automatic (implantable) cardiac defibrillator; N17.9 Acute kidney failure, unspecified; N39.0 Urinary tract infection, site not specified; I48.91 Unspecified atrial fibrillation; Z11.52 Encounter for screening for COVID-19
CPT/HCPCS: 93005 ×2; 87040 ×2; 87088; 85025; 81001; 87086; 80048; 36415; 83735; 87205 ×4; 85610; 80076; 83605; 87077 ×3; 87186 ×3; 84484; 83880; 71250; 71045 ×2; 51702; 99285; 36556; 87428; J3475; J0282 ×2; J1938; J7030; J2003; J0696